=== PATIENT | female | born 1970 | race African-American/Black ===

== ENCOUNTER 2017-05-29 11:38 | Inpatient (IN) | payer OTHER ==
--- OUTSIDE RECORDS SUMMARY | 2017-05-29 11:47 | XMS REPORT ---
:1970 [facility] [address] [place] [address] Care Team Providers Name Role Phone RISHI RANDOLPH Unavailable Unavailable ERNESTO THORPE Unavailable Unavailable ISABEL DELA CRUZ Unavailable Unavailable Problems This patient has no known problems. Allergies, Adverse Reactions, Alerts This patient has no known allergies or adverse reactions. Medications This patient has no known medications. Results Test Description Test Time Test Comments Text Results Atomic Results Result Comments HEMOGLOBIN A1C 2017-02-24 08:30:00 Test Item Value Reference Range Comments HEMOGLOBIN A1C (BEAKER) (test ozem=277) 5.3 % 4.3-6.1 POCT-GLUCOSE [id number] 07:28:00 Test Item Value Reference Range Comments POC-GLUCOSE METER (BEAKER) 78 mg/dL 70-110 TESTED AT [address] (test secn=2920) [place] [id number] POCT-GLUCOSE [id number] 20:51:00 Test Item Value Reference Range Comments POC-GLUCOSE METER (BEAKER) 49 mg/dL 70-110 Will Repeat Test/TESTED AT (test sabo=3539) [place] [id number] POCT-GLUCOSE [id number] 18:20:00 Test Item Value Reference Range Comments POC-GLUCOSE METER (BEAKER) 188 mg/dL 70-110 TESTED AT [address] (test irts=4193) [place] [id number] T4, [id number] 17:50:00 Test Item Value Reference Range Comments FREE T4 (BEAKER) (test qntw=259) 1.31 ng/dL 0.70-1.48 SEDIMENTATION [id number] 17:38:00 Test Item Value Reference Range Comments SEDIMENTATION RATE, ERYTHROCYTE (BEAKER) (test 103 mm/HR 0-20 nzts=039) TSH/FREE T4 IF [id number] 16:25:00 Test Item Value Reference Range Comments THYROID STIMULATING HORMONE (BEAKER) (test 0.30 uIU/mL 0.35-4.94 cgfl=556) CREATINE KINASE (CK), TOTAL AND [id number] 16:08:00 Test Item Value Reference Range Comments CREATINE KINASE TOTAL (BEAKER) (test pyor=780) 111 U/L 29-200 CREATINE KINASE-MB (BEAKER) (test qcaq=680) 4.8 ng/mL 0.0-6.6 CREATINE KINASE-MB INDEX (BEAKER) (test rwut=789) 4.3 % CK-MB Reference Range:<6.7 Normal6.7-10.0 Borderline>10.0 AbnormalTROPONIN [id number] 16:08:00 Test Item Value Reference Range Comments TROPONIN I (BEAKER) (test vnvn=544) 0.10 ng/mL 0.00-0.03 Troponin I (TnI) levels must be interpreted in the context of the presenting symptoms and the clinical findings. Elevated TnI levels indicate myocardial damage, but are not specific for ischemic heart disease. Elevated TnI levels are seen in patients with other cardiac conditions (including myocarditis and congestive heart failure), and slight TnI elevations occur in patients with other conditions, including sepsis, renal failure, acidosis, acute neurological disease, and persistent tachyarrhythmia.CREATINE KINASE (CK), TOTAL AND [id number] 16:07:00 Test Item Value Reference Range Comments CREATINE KINASE TOTAL (BEAKER) (test vqth=257) 100 U/L 29-200 CREATINE KINASE-MB (BEAKER) (test sfuu=328) 3.7 ng/mL 0.0-6.6 CREATINE KINASE-MB INDEX (BEAKER) (test wdeo=496) 3.7 % CK-MB Reference Range:<6.7 Normal6.7-10.0 Borderline>10.0 AbnormalTROPONIN [id number] 16:07:00 Test Item Value Reference Range Comments TROPONIN I (BEAKER) (test uitn=288) 0.10 ng/mL 0.00-0.03 Troponin I (TnI) levels must be interpreted in the context of the presenting symptoms and the clinical findings. Elevated TnI levels indicate myocardial damage, but are not specific for ischemic heart disease. Elevated TnI levels are seen in patients with other cardiac conditions (including myocarditis and congestive heart failure), and slight TnI elevations occur in patients with other conditions, including sepsis, renal failure, acidosis, acute neurological disease, and persistent tachyarrhythmia.[id number] 15:59:00 Test Item Value Reference Range Comments PHOSPHORUS (BEAKER) (test hnur=226) 5.1 mg/dL 2.3-4.7 LIPID [id number] 15:59:00 Test Item Value Reference Range Comments TRIGLYCERIDES (BEAKER) (test kepp=487) 64 mg/dL CHOLESTEROL (BEAKER) (test btmk=321) 112 mg/dL HDL CHOLESTEROL (BEAKER) (test lavw=903) 36 mg/dL LDL CHOLESTEROL CALCULATED (BEAKER) (test 63 mg/dL oflk=592) Triglyceride Reference Range: Low Risk <150 Borderline 150- 199 High Risk 200-499 Very High Risk >=500Cholesterol Reference Range: Low Risk <200 Borderline 200-239 High Risk > 240HDL Cholesterol Reference Range: Low Risk >=60 High Risk <40LDL Cholesterol Reference Range: Optimal <100 Near Optimal 100-129 Borderline 130-159 High 160-189 Very High >=190HEPATIC FUNCTION [id number] 15:59:00 Test Item Value Reference Range Comments TOTAL PROTEIN (BEAKER) (test hubl=310) 6.6 gm/dL 6.0-8.3 ALBUMIN (BEAKER) (test deop=0219) 2.5 g/dL 3.5-5.0 BILIRUBIN TOTAL (BEAKER) (test wrpb=352) 0.4 mg/dL 0.2-1.2 BILIRUBIN DIRECT (BEAKER) (test zdsi=406) 0.1 mg/dL 0.1-0.5 ALKALINE PHOSPHATASE (BEAKER) (test gnrw=487) 82 U/L 40-150 AST (SGOT) (BEAKER) (test xnqc=099) 16 U/L 5-34 ALT (SGPT) (BEAKER) (test bhco=644) 10 U/L 6-55 C-REACTIVE [id number] 15:59:00 Test Item Value Reference Range Comments C-REACTIVE PROTEIN (BEAKER) (test otkn=062) 0.52 mg/dL 0.00-0.50 BASIC METABOLIC [id number] 15:59:00 Test Item Value Reference Range Comments SODIUM (BEAKER) (test 140 meq/L 136-145 zhad=415) POTASSIUM (BEAKER) (test 4.4 meq/L 3.5-5.1 uium=995) CHLORIDE (BEAKER) (test 110 meq/L 98-107 tfii=198) CO2 (BEAKER) (test 21 meq/L 22-29 nfeh=644) BLOOD UREA NITROGEN 54 mg/dL 7-21 (BEAKER) (test wsfv=097) CREATININE (BEAKER) (test 9.62 mg/dL 0.57-1.25 hrhi=658) GLUCOSE RANDOM (BEAKER) 87 mg/dL 70-105 (test fvdy=671) CALCIUM (BEAKER) (test 8.0 mg/dL 8.4-10.2 wijo=483) EGFR (BEAKER) (test 5 mL/min/1.73 sq m ESTIMATED GFR IS NOT jgeh=4216) ACCURATE CREATININE CLEARANCE IN PREDICTING GLOMERULAR FILTRATION RATE. ESTIMATED GFR IS NOT APPLICABLE FOR DIALYSIS PATIENTS. CBC W/PLT COUNT & AUTO [id number] 15:16:00 Test Item Value Reference Range Comments WHITE BLOOD CELL COUNT (BEAKER) (test umzu=636) 4.3 K/ L 3.5-10.5 RED BLOOD CELL COUNT (BEAKER) (test zcie=333) 2.57 M/ L 3.93-5.22 HEMOGLOBIN (BEAKER) (test mdfg=392) 7.3 GM/DL 11.2-15.7 HEMATOCRIT (BEAKER) (test gpnr=361) 23.4 % 34.1-44.9 MEAN CORPUSCULAR VOLUME (BEAKER) (test ndiu=124) 91.1 fL 79.4-94.8 MEAN CORPUSCULAR HEMOGLOBIN (BEAKER) (test 28.4 pg 25.6-32.2 erde=898) MEAN CORPUSCULAR HEMOGLOBIN CONC (BEAKER) (test 31.2 GM/DL 32.2-35.5 escm=163) RED CELL DISTRIBUTION WIDTH (BEAKER) (test 15.1 % 11.7-14.4 kqks=190) PLATELET COUNT (BEAKER) (test mjxx=082) 184 K/CU MM 150-450 MEAN PLATELET VOLUME (BEAKER) (test cqyh=034) 10.8 fL 9.4-12.3 NUCLEATED RED BLOOD CELLS (BEAKER) (test 0 /100 WBC 0-0 sisa=803) NEUTROPHILS RELATIVE PERCENT (BEAKER) (test 58 % pjcc=909) LYMPHOCYTES RELATIVE PERCENT (BEAKER) (test 25 % kfke=766) MONOCYTES RELATIVE PERCENT (BEAKER) (test 13 % sblf=117) EOSINOPHILS RELATIVE PERCENT (BEAKER) (test 4 % zwog=727) BASOPHILS RELATIVE PERCENT (BEAKER) (test 1 % aksa=440) NEUTROPHILS ABSOLUTE COUNT (BEAKER) (test 2.50 K/ L 1.56-6.13 olkd=425) LYMPHOCYTES ABSOLUTE COUNT (BEAKER) (test 1.07 K/ L 1.18-3.74 pfef=475) MONOCYTES ABSOLUTE COUNT (BEAKER) (test 0.55 K/ L 0.24-0.36 fgck=400) EOSINOPHILS ABSOLUTE COUNT (BEAKER) (test 0.17 K/ L 0.04-0.36 tmbj=190) BASOPHILS ABSOLUTE COUNT (BEAKER) (test 0.02 K/ L 0.01-0.08 mehi=014) IMMATURE GRANULOCYTES-RELATIVE PERCENT (BEAKER) 0 % 0-1 (test tjzb=7384) PROTHROMBIN [id number] 15:08:00 Test Item Value Reference Range Comments PROTIME (BEAKER) (test zdkq=861) 16.0 seconds 11.7-14.7 INR (BEAKER) (test srex=115) 1.3 <=5.9 RECOMMENDED COUMADIN/WARFARIN INR THERAPY RANGESSTANDARD DOSE: 2.0 - 3.0 Includes: PROPHYLAXIS forvenous thrombosis, systemic embolization; TREATMENT for venous thrombosis and/or pulmonary embolus.HIGH RISK: Target INR is 2.5-3.5 for patients with mechanical heart valves.POCT-GLUCOSE [id number] 12:04:00 Test Item Value Reference Range Comments POC-GLUCOSE METER (BEAKER) 187 mg/dL 70-[address] [facility] [address] [facility] (test xajk=0351) [facility] [address] POCT-GLUCOSE [id number] 09:11:00 Test Item Value Reference Range Comments POC-GLUCOSE METER (BEAKER) 83 mg/dL 70-[address] [facility] [address] (test yiei=1640) [facility] [address] MR, BRAIN, WITHOUT [id number] 00:47:00PT started dialysis 2015Reason for exam:->Sudden onset headace, dizzinessFINAL REPORT MR, BRAIN, WITHOUT CONTRAST INDICATION: Headache, acute, norm neuro examSudden onset headace, dizziness TECHNIQUE: Multiplanar, multisequence MR imaging of the brainwithout intravenous contrast. COMPARISON: Noncontrast head CT January 06, 2017 FINDINGS: There is norestricted diffusion. No focal abnormal parenchymal signal is present. There is no mass effect orabnormal extra-axial fluid. The ventricles demonstrate mild enlargement without evidence of transependymal flow. Incidental note of cavum of the septum pellucidum et vergae. There is no tonsillar herniation. Incidental note of partially empty sella. The larger intracranial vascular flow-voids are preserved. No loss of flow void is identified in the major dural sinuses. Mild mucosal thickening is present in the right maxillary sinus. There is normal bone marrow signal intensity within the calvariumand skull base. Although suboptimal, no obvious optic nerve edema is present. Susceptibility artifact is present in the right globe, suggesting prior vitreal hemorrhage. IMPRESSION: No infarct or parenchymal hemorrhage. 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 Intrahepatic intracranial hypertension is not excluded. Mild paranasal sinus disease. Signed : JR Astorga Robert MDReport Verified Date/Time: 02/23/2017 00:47:16 Reading Location: [facility] C013Y CT Body Reading Room AFB CULTURE + [id number] 07: 45:00 Test Item Value Reference Range Comments CULTURE (BEAKER) (test No acid-fast bacilli isolated pkcj=8976) in 42 days AFB SMEAR (BEAKER) (test No acid fast bacilli seen dwlz=210) AFB CULTURE + [id number] 07:45:00 Test Item Value Reference Range Comments CULTURE (BEAKER) (test No acid-fast bacilli isolated geyg=6751) in 42 days AFB SMEAR (BEAKER) (test No acid fast bacilli seen desk=445) FUNGUS CULTURE + [id number] 18:17:00 Test Item Value Reference Range Comments CULTURE (BEAKER) (test No fungus isolated in 28 days mksn=1201) FUNGUS SMEAR (BEAKER) (test No fungi seen ribh=3988) FUNGUS CULTURE + [id number] 18:17:00 Test Item Value Reference Range Comments CULTURE (BEAKER) (test No fungus isolated in 28 days dqaw=6204) FUNGUS SMEAR (BEAKER) (test No fungi seen rrfm=8854) AFB CULTURE + [id number] 14:52:00 Test Item Value Reference Range Comments CULTURE (BEAKER) (test No acid-fast bacilli isolated czfq=2800) in 42 days AFB SMEAR (BEAKER) (test No acid fast bacilli seen kfcm=932) AB SPECIFICITY CLASS [id number] 10:13:00 Test Item Value Reference Range Comments DATE OF SERUM (BEAKER) (test soob=4815) [id number] SERUM # (BEAKER) (test jucc=7755) [id number] AB SPECIFICITY CLASS I (BEAKER) (test rhzm=1989) AB SPECIFICITY CLASS [id number] 10:13:00 Test Item Value Reference Range Comments DATE OF SERUM (BEAKER) (test ykuk=1316) [id number] SERUM # (BEAKER) (test xsdm=2321) 126992 AB SPECIFICITY CLASS II (BEAKER) (test See Scanned Report warc=5688) HERPES VIRUS ANTIBODY, [id number] 14:21:00 Test Item Value Reference Range Comments HERPES VIRUS IGM (BEAKER) (test Negative HSV 1 IGM=NEGHSV 2 IGM=NEG ccku=7512) TOXOPLASMA GONDII ANTIBODY, [id number] 14:21:00 Test Item Value Reference Range Comments TOXOPLASMA IGM ANTIBODY (BEAKER) (test opqk=081) Negative FLOW PRA CLASS I AND [id number] 15:15:00 Test Item Value Reference Range Comments DATE OF SERUM (BEAKER) (test file=9926) [id number] SERUM # (BEAKER) (test naen=8220) [id number] FLOW PRA CLASS I AND II (test vhrf=7635) See Scanned Report VARICELLA ZOSTER ANTIBODY, [id number] 14:59:00 Test Item Value Reference Range Comments VARICELLA ZOSTER IGG (AL) (MARYANNE) (test wcad=2040) 5.8 Al VARICELLA ZOSTER RESULT INTERPRETATIONS: <=0.8 Al Nonreactive: Presumed non-immune to VZV 0.9-1.0 Al Equivocal >=1.1 Al Reactive: Presumed immune to VZVCT, [id number] 14:16:00PT started dialysis 07/12/2015Addendum BeginsREPORT STATUS:A The original report incorrectly states that the procedure was performed with intravenous contrast. In fact, the procedure was performed without intravenous contrast. Signed: Gigi Diaz MDReport Verified Date/Time: 01/13/2017 14: 16:42 ReadingLocation: [facility] C013X Ortho Consult Reading RoomAddendum EndsFINAL REPORT INDICATION:46-year-old female preheart transplant evaluation. COMPARISON: None. TECHNIQUE: CT of the Chest, Abdomen and Pelvis WITH intravenous contrast. Enteric contrast was not used. The exam was performed according to our department dose-optimization protocol, which includes automated exposure control, adjustments of mA and kV according to patient size. Iterative reconstructions are also sometimes employed. FINDINGS: THORAX: There are bilateral moderate pleural effusions. There is no pulmonary edema. No pneumonia or suspicious lung nodule or mass is demonstrated. Central airways are clear. No mediastinal, hilar, axillary, or supraclavicular lymphadenopathy is demonstrated. Esophagus is unremarkable. Thyroid gland is mildly enlarged. There is mild cardiomegaly. Coronary artery calcification is noted. No pericardial effusion. There is a large caliber right internal jugular line that terminates atthe cavoatrial junction. ABDOMEN and PELVIS: Liver and spleen are unremarkable. In the head of the pancreas there are a few punctate calcifications which are suspicious for chronic pancreatitis. No pancreatic mass , atrophy, or ductal dilatation is demonstrated. Patient is status post cholecystectomy. No biliary ductal dilatation demonstrated. No upper abdominal lymphadenopathy. No gross renal mass isdemonstrated. No hydronephrosis. Diffuse mild bladder wall thickening is noted and may be related tonondistention. Patient is status post hysterectomy. No pelvic or retroperitoneal lymphadenopathy is demonstrated. There is scattered moderate calcified atherosclerotic plaque of the abdominal aorta andiliac arteries. IVC and iliac veins are unremarkable. No bowel obstruction or bowel mass is demonstrated. There is diffuse mild ascites. BONES and SOFT TISSUES: No suspicious osseous lesion is demonstrated. No significant osseous degenerative changes. Soft tissues are notable for laparotomy wound withapparent packing material in open portion of the wound. IMPRESSION: No evidence of malignancy in thechest, abdomen , or pelvis. Mild cardiomegaly and coronary artery calcification. Bilateral moderate pleural effusions. A few punctate calcifications in the head of the pancreas, suspicious for chronic pancreatitis. Prior cholecystectomy and hysterectomy. Moderate atherosclerosis of the abdominal aorta and iliac arteries. Upper laparotomy wound with apparent packing material in open part of wound. Signed: Gigi Diaz MDReport Verified Date/Time: 01/06/2017 23:49: 19 Reading Location: [facility] [id number] Reading Room CT, CHEST, WITHOUT [id number] 14:16:00PT started dialysis 07/12/2015Addendum BeginsREPORT STATUS:A The original report incorrectly states that the procedure was performed with intravenous contrast. In fact, the procedure was performed without intravenous contrast. Signed: Gigi Diaz MDReport Verified Date/Time: 01/13/2017 14:16:42 ReadingLocation: [facility] C013X Ortho Consult Reading RoomAddendum EndsFINAL REPORT INDICATION: 46-year-old female preheart transplant evaluation. COMPARISON: None. TECHNIQUE: CT of the Chest, Abdomen and Pelvis WITH intravenous contrast. Enteric contrast was not used. The exam was performed according to our department dose- optimization protocol, which includes automated exposure control, adjustments of mA and kV according to patient size. Iterative reconstructions are also sometimes employed. FINDINGS: THORAX: There are bilateral moderate pleural effusions. There is no pulmonary edema. No pneumonia or suspicious lung nodule or mass is demonstrated. Central airways are clear. No mediastinal, hilar, axillary, or supraclavicular lymphadenopathy is demonstrated. Esophagus is unremarkable. Thyroid gland is mildly enlarged. There is mild cardiomegaly. Coronary artery calcification is noted. No pericardial effusion. There is a large caliber right internal jugular line that terminates atthe cavoatrial junction. ABDOMEN and PELVIS: Liver and spleen are unremarkable. In the head of the pancreas there are a few punctate calcifications which are suspicious for chronic pancreatitis. No pancreatic mass, atrophy, or ductal dilatation is demonstrated. Patient is status post cholecystectomy. No biliary ductal dilatation demonstrated. No upper abdominal lymphadenopathy. No gross renal mass isdemonstrated. No hydronephrosis. Diffuse mild bladder wall thickening is noted and may be related tonondistention. Patient is status post hysterectomy. No pelvic or retroperitoneal lymphadenopathy is demonstrated. There is scattered moderate calcified atherosclerotic plaque of the abdominal aorta andiliac arteries. IVC and iliac veins are unremarkable. No bowel obstruction or bowel mass is demonstrated. There is diffuse mild ascites. BONES and SOFT TISSUES: No suspicious osseous lesion is demonstrated. No significant osseous degenerative changes. Soft tissues are notable for laparotomy wound withapparent packing material in open portion of the wound. IMPRESSION: No evidence of malignancy in thechest, abdomen, or pelvis. Mild cardiomegaly and coronary artery calcification. Bilateral moderate pleural effusions. A few punctate calcifications in the head of the pancreas, suspicious for chronic pancreatitis. Prior cholecystectomy and hysterectomy. Moderate atherosclerosis of the abdominal aorta and iliac arteries. Upper laparotomy wound with apparent packing material in open part of wound. Signed: Gigi Diaz MDReport Verified Date/Time: 01/06/2017 23:49:19 Reading Location: [facility] [id number] Reading Room Electronically signed by: GIGI DIAZ M.D. on 2016 02:16 [facility] METABOLIC [id number] 14:06:00 Test Item Value Reference Range Comments SODIUM (BEAKER) (test 135 meq/L 136-145 zdgd=175) POTASSIUM (BEAKER) (test 4.1 meq/L 3.5-5.1 nglk=773) CHLORIDE (BEAKER) (test 102 meq/L 98-107 puqy=215) CO2 (BEAKER) (test 24 meq/L 22-29 erao=446) BLOOD UREA NITROGEN 24 mg/dL 7-21 (BEAKER) (test dfqz=293) CREATININE (BEAKER) (test 8.29 mg/dL 0.57-1.25 bcom=756) GLUCOSE RANDOM (BEAKER) 84 mg/dL 70-105 (test unze=839) CALCIUM (BEAKER) (test 8.8 mg/dL 8.4-10.2 xcaj=264) EGFR (BEAKER) (test 6 mL/min/1.73 sq m ESTIMATED GFR IS NOT hbnx=5162) ACCURATE CREATININE CLEARANCE IN PREDICTING GLOMERULAR FILTRATION RATE. ESTIMATED GFR IS NOT APPLICABLE FOR DIALYSIS PATIENTS. [id number] 14:04:00 Test Item Value Reference Range Comments MAGNESIUM (BEAKER) (test zqqg=119) 1.7 mg/dL 1.6-2.6 PROTHROMBIN [id number] 13:52:00 Test Item Value Reference Range Comments PROTIME (BEAKER) (test rdqx=704) 16.5 seconds 11.7-14.7 INR (BEAKER) (test iwjm=237) 1.3 <=5.9 RECOMMENDED COUMADIN/WARFARIN INR THERAPY RANGESSTANDARD DOSE: 2.0 - 3.0 Includes: PROPHYLAXIS forvenous thrombosis, systemic embolization; TREATMENT for venous thrombosis and/or pulmonary embolus.HIGH RISK: Target INR is 2.5-3.5 for patients with mechanical heart valves.While on warfarin.CBC (HEMOGRAM ONLY) 2017-01-13 13:43:00 Test Item Value Reference Range Comments WHITE BLOOD CELL COUNT (BEAKER) (test wqlu=186) 3.9 K/ L 3.5-10.5 RED BLOOD CELL COUNT (BEAKER) (test ayjl=870) 2.61 M/ L 3.93-5.22 HEMOGLOBIN (BEAKER) (test irzj=258) 7.5 GM/DL 11.2-15.7 HEMATOCRIT (BEAKER) (test mcgq=686) 23.8 % 34.1-44.9 MEAN CORPUSCULAR VOLUME (BEAKER) (test cawg=308) 91.2 fL 79.4-94.8 MEAN CORPUSCULAR HEMOGLOBIN (BEAKER) (test 28.7 pg 25.6-32.2 tdsb=726) MEAN CORPUSCULAR HEMOGLOBIN CONC (BEAKER) (test 31.5 GM/DL 32.2-35.5 owpv=187) RED CELL DISTRIBUTION WIDTH (BEAKER) (test 14.2 % 11.7-14.4 ynel=451) PLATELET COUNT (BEAKER) (test swkq=275) 187 K/CU MM 150-450 MEAN PLATELET VOLUME (BEAKER) (test ewgm=094) 11.2 fL 9.4-12.3 NUCLEATED RED BLOOD CELLS (BEAKER) (test 0 /100 WBC 0-0 pzwk=494) POCT-GLUCOSE [id number] 07:33:00 Test Item Value Reference Range Comments POC-GLUCOSE METER (BEAKER) 82 mg/dL 70-110 TESTED AT [address] (test pgzi=8832) [place] [address] POCT-GLUCOSE [id number] 22:10:00 Test Item Value Reference Range Comments POC-GLUCOSE METER (BEAKER) 118 mg/dL 70-110 TESTED AT [address] (test aghp=3887) [place] [address] POCT-GLUCOSE [id number] 16:58:00 Test Item Value Reference Range Comments POC-GLUCOSE METER (BEAKER) 102 mg/dL 70-110 TESTED AT [address] (test uzcd=7538) [place] [address] POCT-GLUCOSE [id number] 07:43:00 Test Item Value Reference Range Comments POC-GLUCOSE METER (BEAKER) 93 mg/dL 70-110 TESTED AT [address] (test javk=9052) [place] [address] POCT-GLUCOSE [id number] 21:58:00 Test Item Value Reference Range Comments POC-GLUCOSE METER (BEAKER) 130 mg/dL 70-110 TESTED AT [address] (test hffs=8953) [place] [id number] POCT-GLUCOSE [id number] 17:59:00 Test Item Value Reference Range Comments POC-GLUCOSE METER (BEAKER) 144 mg/dL 70-110 TESTED AT [address] (test jjlz=2148) [place] [address] CYTOMEGALOVIRUS ANTIBODY, [id number] 15:45:00 Test Item Value Reference Range Comments CYTOMEGALOVIRUS IGG ANTIBODY (BEAKER) (test Negative cdsf=364) CYTOMEGALOVIRUS ANTIBODY, [id number] 15:45:00 Test Item Value Reference Range Comments CYTOMEGALOVIRUS IGM ANTIBODY (BEAKER) (test Negative qnmi=641) HERPES VIRUS ANTIBODY, [id number] 15:45:00 Test Item Value Reference Range Comments HERPES VIRUS IGG (BEAKER) (test Positive HSV 1 IGG=POSHSV 2 IGG=POS zjou=2454) EBV-VCA ANTIBODY, [id number] 15:45:00 Test Item Value Reference Range Comments GIO-NICK VCA IGG (BEAKER) (test hxxk=724) Positive EBV-VCA ANTIBODY, [id number] 15:45:00 Test Item Value Reference Range Comments GIO-NICK VCA IGM (BEAKER) (test wdbh=833) Negative TOXOPLASMA GONDII ANTIBODY, [id number] 15:45:00 Test Item Value Reference Range Comments TOXOPLASMA GONDII IGG (BEAKER) (test nbzq=027) Negative POCT-GLUCOSE [id number] 14:27:00 Test Item Value Reference Range Comments POC-GLUCOSE METER (BEAKER) 108 mg/dL 70-[address] [facility] [address] [facility] (test tucv=5874) [facility] [address] IMMUNOFIXATION ELECTROPHORESIS (YOANNA)2017-01-11 13:52:00 Test Item Value Reference Range Comments IMMUNOGLOBULIN G (IGG) (BEAKER) 2035 mg/dL 540-1822 (test kiei=713) IMMUNOGLOBULIN A (IGA) (BEAKER) 148 mg/dL 63-484 (test tyfj=254) IMMUNOGLOBULIN M (IGM) (BEAKER) 125 mg/dL 22-293 (test ynpr=451) SERUM YOANNA ID (BEAKER) (test Polyclonal distribution of awui=6804) immunoglobulins; no monoclonal proteins detected. Small band seen on SPEP, therefore, is likely due to presence of fibrinogen in the sample. [id number] (BEAKER) Pat Pinzon MD (test rghp=5602) (electronic signature) Do not collect, specimen already in lab.BASIC METABOLIC [id number] 09:44:00 Test Item Value Reference Range Comments SODIUM (BEAKER) (test 137 meq/L 136-145 pmmy=881) POTASSIUM (BEAKER) (test 3.9 meq/L 3.5-5.1 jkla=970) CHLORIDE (BEAKER) (test 101 meq/L 98-107 dwuh=206) CO2 (BEAKER) (test 30 meq/L 22-29 bomt=224) BLOOD UREA NITROGEN 20 mg/dL 7-21 (BEAKER) (test nfoy=783) CREATININE (BEAKER) (test 7.35 mg/dL 0.57-1.25 udzs=676) GLUCOSE RANDOM (BEAKER) 85 mg/dL 70-105 (test mmay=675) CALCIUM (BEAKER) (test 8.5 mg/dL 8.4-10.2 orvg=106) EGFR (BEAKER) (test 7 mL/min/1.73 sq m ESTIMATED GFR IS NOT ngyt=[id number]) ACCURATE CREATININE CLEARANCE IN PREDICTING GLOMERULAR FILTRATION RATE. ESTIMATED GFR IS NOT APPLICABLE FOR DIALYSIS PATIENTS. [id number] 09:20:00 Test Item Value Reference Range Comments MAGNESIUM (BEAKER) (test cqec=764) 1.8 mg/dL 1.6-2.6 POCT-GLUCOSE [id number] 09:18:00 Test Item Value Reference Range Comments POC-GLUCOSE METER (BEAKER) 100 mg/dL 70-110 TESTED AT [address] (test qqla=5830) [place] [id number] PROTHROMBIN [id number] 08:51:00 Test Item Value Reference Range Comments PROTIME (BEAKER) (test arbh=109) 15.1 seconds 11.7-14.7 INR (BEAKER) (test adha=582) 1.2 <=5.9 RECOMMENDED COUMADIN/WARFARIN INR THERAPY RANGESSTANDARD DOSE: 2.0 - 3.0 Includes: PROPHYLAXIS forvenous thrombosis, systemic embolization; TREATMENT for venous thrombosis and/or pulmonary embolus.HIGH RISK: Target INR is 2.5-3.5 for patients with mechanical heart valves.While on warfarin.HGB/HCT (H&H) - STAT [id number] 08:44:00 Test Item Value Reference Range Comments HEMOGLOBIN (BEAKER) (test wlyf=921) 8.0 g/dL 12.0-15.0 HEMATOCRIT (BEAKER) (test qnje=355) 24.0 % 36.0-45.0 POCT-GLUCOSE [id number] 23:05:00 Test Item Value Reference Range Comments POC-GLUCOSE METER (BEAKER) 108 mg/dL 70-110 TESTED AT [address] (test kdtc=7728) [facility] [address] POCT-GLUCOSE [id number] 17:36:00 Test Item Value Reference Range Comments POC-GLUCOSE METER (BEAKER) 133 mg/dL 70-110 TESTED AT [address] (test wqcs=5912) [facility] [address] POCT-GLUCOSE [id number] 12:31:00 Test Item Value Reference Range Comments POC-GLUCOSE METER (BEAKER) 115 mg/dL 70-110 TESTED AT [address] (test oiqo=0239) [place] [id number] FUNGUS CULTURE + [id number] 12:30:00 Test Item Value Reference Range Comments CULTURE (BEAKER) (test No fungus isolated in 28 days wybk=6784) FUNGUS SMEAR (BEAKER) (test No fungi seen zlxu=5461) POCT-GLUCOSE [id number] 08:30:00 Test Item Value Reference Range Comments POC-GLUCOSE METER (BEAKER) 99 mg/dL 70-110 TESTED AT [address] (test czxh=0634) [place] [address] POCT-GLUCOSE [id number] 00:16:00 Test Item Value Reference Range Comments POC-GLUCOSE METER (BEAKER) 106 mg/dL 70-110 TESTED AT [address] (test sdkv=0128) [place] [address] POCT-GLUCOSE [id number] 22:21:00 Test Item Value Reference Range Comments POC-GLUCOSE METER (BEAKER) 88 mg/dL 70-110 TESTED AT [address] (test ffsj=8525) [place] [id number] POCT-GLUCOSE [id number] 14:36:00 Test Item Value Reference Range Comments POC-GLUCOSE METER (BEAKER) 119 mg/dL 70-110 TESTED AT [address] (test weig=1321) [place] [address] PROTEIN ELECTROPHORESIS, [id number] 13:56:00 Test Item Value Reference Range Comments ALBUMIN FRACTION (BEAKER) 2.0 g/dL 3.5-5.5 (test skdy=687) ALPHA 1 FRACTION (BEAKER) 0.3 g/dL 0.2-0.4 (test hokm=382) ALPHA 2 FRACTION (BEAKER) 0.6 g/dL 0.5-0.9 (test ziim=851) BETA FRACTION (BEAKER) 0.9 g/dL 0.6-1.1 (test akiq=283) GAMMA GLOBULIN FRACTION 1.9 g/dL 0.7-1.7 (BEAKER) (test utto=277) INTERPRETATION-119 (BEAKER) There is a peak in the gamma (test prpt=2378) region that may indicate a monoclonal gammopathy. Refer to serum immunofixation electrophoresis. [id number] Anne Yen MD (electronic (BEAKER) (test alib=3134) signature) PROTEIN TOTAL SERUM, SPEP 5.7 gm/dL 6.0-8.3 (BEAKER) (test hxwj=7698) Do not collect, specimen already in lab.POTASSIUM-STAT [id number] 10:33:00 Test Item Value Reference Range Comments POTASSIUM (BEAKER) (test xwac=595) 4.9 meq/L 3.6-5.5 GLUCOSE-STAT [id number] 10:33:00 Test Item Value Reference Range Comments GLUCOSE RANDOM (BEAKER) (test ltqo=133) 129 mg/dL 70-110 HGB/HCT (H&H) - STAT [id number] 10:33:00 Test Item Value Reference Range Comments HEMOGLOBIN (BEAKER) (test yoyi=976) 12.3 g/dL 12.0-15.0 HEMATOCRIT (BEAKER) (test dmal=234) 36.0 % 36.0-45.0 HGB/HCT (H&H) - STAT [id number] 07:59:00 Test Item Value Reference Range Comments HEMOGLOBIN (BEAKER) (test gelt=478) 8.5 g/dL 12.0-15.0 HEMATOCRIT (BEAKER) (test ivqo=408) 25.0 % 36.0-45.0 BASIC METABOLIC [id number] 07:16:00 Test Item Value Reference Range Comments SODIUM (BEAKER) (test 134 meq/L 136-145 pmqs=828) POTASSIUM (BEAKER) (test 4.5 meq/L 3.5-5.1 cykm=535) CHLORIDE (BEAKER) (test 101 meq/L 98-107 nivq=080) CO2 (BEAKER) (test 24 meq/L 22-29 bmma=304) BLOOD UREA NITROGEN 24 mg/dL 7-21 (BEAKER) (test lvtk=709) CREATININE (BEAKER) (test 7.96 mg/dL 0.57-1.25 cors=712) GLUCOSE RANDOM (BEAKER) 88 mg/dL 70-105 (test cefe=629) CALCIUM (BEAKER) (test 8.5 mg/dL 8.4-10.2 fvzi=497) EGFR (BEAKER) (test 7 mL/min/1.73 sq m ESTIMATED GFR IS NOT pggd=9477) ACCURATE CREATININE CLEARANCE IN PREDICTING GLOMERULAR FILTRATION RATE. ESTIMATED GFR IS NOT APPLICABLE FOR DIALYSIS PATIENTS. [id number] 07:10:00 Test Item Value Reference Range Comments MAGNESIUM (BEAKER) (test irrw=195) 2.0 mg/dL 1.6-2.6 POCT-GLUCOSE [id number] 06:47:00 Test Item Value Reference Range Comments POC-GLUCOSE METER (BEAKER) 113 mg/dL 70-110 TESTED AT [address] (test hxan=2115) [place] [address] [id number] 02:25:00 Test Item Value Reference Range Comments PARTIAL THROMBOPLASTIN TIME (BEAKER) (test 67.7 seconds 22.5-36.0 jhbv=009) POCT-GLUCOSE [id number] 18:18:00 Test Item Value Reference Range Comments POC-GLUCOSE METER (BEAKER) 138 mg/dL 70-110 TESTED AT [address] (test pkvg=8814) [place] [id number] [id number] 17:24:00 Test Item Value Reference Range Comments PROTIME (BEAKER) (test qdbs=398) 15.2 seconds 11.7-14.7 INR (BEAKER) (test eljf=370) 1.2 <=5.9 PARTIAL THROMBOPLASTIN TIME (BEAKER) (test 37.0 seconds 22.5-36.0 etto=852) RECOMMENDED COUMADIN/WARFARIN INR THERAPY RANGESSTANDARD DOSE: 2.0 - 3.0 Includes: PROPHYLAXIS forvenous thrombosis, systemic embolization; TREATMENT for venous thrombosis and/or pulmonary embolus.HIGH RISK: Target INR is 2.5-3.5 for patients with mechanical heart valves.ANAEROBIC [id number] 14:23:00 Test Item Value Reference Range Comments CULTURE (BEAKER) (test ddpi=5324) No anaerobes isolated ANAEROBIC [id number] 14:23:00 Test Item Value Reference Range Comments CULTURE (BEAKER) (test btdc=1478) No anaerobes isolated POCT-GLUCOSE [id number] 12:45:00 Test Item Value Reference Range Comments POC-GLUCOSE METER (BEAKER) 126 mg/dL 70-[address] [facility] [address] (test ofzo=0732) [facility] [address] SURGICALLY OBTAINED CULTURE + GRAM [id number] 11:41:00 Test Item Value Reference Range Comments CULTURE (BEAKER) (test From Broth Only Same organism cwpa=5641) has been isolated from cultures(s) of the same body site and collection date. Repeat identification and susceptibility testing performed only after consultation with the clinical microbiology laboratory.Refer to previous culture ofCoagulase negative Staphylococcus GRAM STAIN RESULT <1+ WBCs (BEAKER) (test ssql=6275) GRAM STAIN RESULT No organisms seen (BEAKER) (test iqki=442972) SURGICALLY OBTAINED CULTURE + GRAM [id number] 11:38:00 Test Item Value Reference Range Comments CULTURE (BEAKER) (test mbix=9700) Clindamycin (test code=10) Erythromycin (test code=4) Levofloxacin (test code=22) Linezolid (test code=40) Nitrofurantoin (test code=23) Oxacillin (test code=14) Rifampin (test code=43) Tetracycline (test code=2) Trimethoprim + Sulfamethoxazole (test code=47) Vancomycin (test code=13) CULTURE (BEAKER) (test 2+ Coagulase negative icvq=1936) Staphylococcus CULTURE (BEAKER) (test 4+ Diphtheroid ijab=3354) GRAM STAIN RESULT (BEAKER) <1+ WBCs (test ylox=7733) GRAM STAIN RESULT (BEAKER) No organisms seen (test hhyk=072880) [id number] 10:08:00 Test Item Value Reference Range Comments PROTIME (BEAKER) (test yczl=365) 14.7 seconds 11.7-14.7 INR (BEAKER) (test mmhm=939) 1.2 <=5.9 PARTIAL THROMBOPLASTIN TIME (BEAKER) (test 40.2 seconds 22.5-36.0 wwfm=094) RECOMMENDED COUMADIN/WARFARIN INR THERAPY RANGESSTANDARD DOSE: 2.0 - 3.0 Includes: PROPHYLAXIS forvenous thrombosis, systemic embolization; TREATMENT for venous thrombosis and/or pulmonary embolus.HIGH RISK: Target INR is 2.5-3.5 for patients with mechanical heart valves.POCT-GLUCOSE [id number] 08:24:00 Test Item Value Reference Range Comments POC-GLUCOSE METER (BEAKER) 97 mg/dL 70-110 TESTED AT [address] (test hift=6900) [place] [address] [id number] 07:39:00 Test Item Value Reference Range Comments PARTIAL THROMBOPLASTIN TIME (BEAKER) (test 192.0 seconds 22.5-36.0 szuw=699) [id number] 07:37:00 Test Item Value Reference Range Comments MAGNESIUM (BEAKER) (test xoci=461) 1.7 mg/dL 1.6-2.6 BASIC METABOLIC [id number] 07:37:00 Test Item Value Reference Range Comments SODIUM (BEAKER) (test 136 meq/L 136-145 pcme=687) POTASSIUM (BEAKER) (test 4.2 meq/L 3.5-5.1 twpn=823) CHLORIDE (BEAKER) (test 100 meq/L 98-107 crgl=837) CO2 (BEAKER) (test 31 meq/L 22-29 dkji=747) BLOOD UREA NITROGEN 15 mg/dL 7-21 (BEAKER) (test cehr=555) CREATININE (BEAKER) (test 5.65 mg/dL 0.57-1.25 qlzj=701) GLUCOSE RANDOM (BEAKER) 121 mg/dL 70-105 (test bewr=122) CALCIUM (BEAKER) (test 8.4 mg/dL 8.4-10.2 vrej=579) EGFR (BEAKER) (test 10 mL/min/1.73 sq m ESTIMATED GFR IS NOT ojld=1325) ACCURATE CREATININE CLEARANCE IN PREDICTING GLOMERULAR FILTRATION RATE. ESTIMATED GFR IS NOT APPLICABLE FOR DIALYSIS PATIENTS. [id number] 23:25:00 Test Item Value Reference Range Comments PARTIAL THROMBOPLASTIN TIME (BEAKER) (test 97.8 seconds 22.5-36.0 fjxs=850) POCT-GLUCOSE [id number] 22:52:00 Test Item Value Reference Range Comments POC-GLUCOSE METER (BEAKER) 98 mg/dL 70-110 TESTED AT [address] (test jskk=0428) [place] [address] POCT-GLUCOSE [id number] 17:43:00 Test Item Value Reference Range Comments POC-GLUCOSE METER (BEAKER) 86 mg/dL 70-110 TESTED AT [address] (test qvng=8863) [place] [address] [id number] 15:59:00 Test Item Value Reference Range Comments PARTIAL THROMBOPLASTIN TIME (BEAKER) (test 62.8 seconds 22.5-36.0 adre=871) POCT-GLUCOSE [id number] 14:50:00 Test Item Value Reference Range Comments POC-GLUCOSE METER (BEAKER) 115 mg/dL 70-110 TESTED AT [address] (test wvgz=2673) [place] [address] [id number] 14:00:00 Test Item Value Reference Range Comments PARTIAL THROMBOPLASTIN TIME (BEAKER) (test 113.6 seconds 22.5-36.0 zmev=797) VANCOMYCIN LEVEL, [id number] 13:10:00 Test Item Value Reference Range Comments VANCOMYCIN RANDOM (BEAKER) (test hobu=332) 33.9 ug/mL Reference Range: No NormalsTROPONIN [id number] 12:52:00 Test Item Value Reference Range Comments TROPONIN I (BEAKER) (test xops=669) 0.09 ng/mL 0.00-0.03 Troponin I (TnI) levels must be interpreted in the context of the presenting symptoms and the clinical findings. Elevated TnI levels indicate myocardial damage, but are not specific for ischemic heart disease. Elevated TnI levels are seen in patients with other cardiac conditions (including myocarditis and congestive heart failure), and slight TnI elevations occur in patients with other conditions, including sepsis, renal failure, acidosis, acute neurological disease, and persistent tachyarrhythmia.POCT-GLUCOSE [id number] 12:19:00 Test Item Value Reference Range Comments POC-GLUCOSE METER (BEAKER) 87 mg/dL 70-110 TESTED AT [address] (test powt=9350) [place] [address] POCT-GLUCOSE [id number] 08:36:00 Test Item Value Reference Range Comments POC-GLUCOSE METER (BEAKER) 62 mg/dL 70-110 Notified MILA IGLESIAS/TESTED AT [facility] (test ljkb=6377) [address] [place] [address] ANTI-NUCLEAR ANTIBODY (MILTON)2017-01-07 06:33:00 Test Item Value Reference Range Comments ANTI-NUCLEAR ANTIBODY (MILTON) (BEAKER) (test Positive Negative ygtq=314) MILTON TITER AND [id number] 06:33:00 Test Item Value Reference Range Comments MILTON TITER (BEAKER) (test bgvb=1516) :640 [place]TON PATTERN (BEAKER) (test pjwa=4294) SSA/RO TROPONIN [id number] 03:35:00 Test Item Value Reference Range Comments TROPONIN I (BEAKER) (test hjdy=399) 0.10 ng/mL 0.00-0.03 Troponin I (TnI) levels must be interpreted in the context of the presenting symptoms and the clinical findings. Elevated TnI levels indicate myocardial damage, but are not specific for ischemic heart disease. Elevated TnI levels are seen in patients with other cardiac conditions (including myocarditis and congestive heart failure), and slight TnI elevations occur in patients with other conditions, including sepsis, renal failure, acidosis, acute neurological disease, and persistent tachyarrhythmia.BASIC METABOLIC [id number] 03:28:00 Test Item Value Reference Range Comments SODIUM (BEAKER) (test 137 meq/L 136-145 qtqt=514) POTASSIUM (BEAKER) (test 4.5 meq/L 3.5-5.1 xlxh=573) CHLORIDE (BEAKER) (test 103 meq/L 98-107 wlsz=050) CO2 (BEAKER) (test 27 meq/L 22-29 zuhx=739) BLOOD UREA NITROGEN 22 mg/dL 7-21 (BEAKER) (test hxgg=508) CREATININE (BEAKER) (test 7.44 mg/dL 0.57-1.25 itvm=895) GLUCOSE RANDOM (BEAKER) 73 mg/dL 70-105 (test igpv=536) CALCIUM (BEAKER) (test 8.2 mg/dL 8.4-10.2 rqoz=468) EGFR (BEAKER) (test 7 mL/min/1.73 sq m ESTIMATED GFR IS NOT rywd=3545) ACCURATE CREATININE CLEARANCE IN PREDICTING GLOMERULAR FILTRATION RATE. ESTIMATED GFR IS NOT APPLICABLE FOR DIALYSIS PATIENTS. [id number] 03:27:00 Test Item Value Reference Range Comments MAGNESIUM (BEAKER) (test grsb=515) 1.9 mg/dL 1.6-2.6 [id number] 03:24:00 Test Item Value Reference Range Comments PARTIAL THROMBOPLASTIN TIME (BEAKER) (test 111.9 seconds 22.5-36.0 muej=661) [id number] 00:18:00 Test Item Value Reference Range Comments RPR SCREEN (BEAKER) (test fgqy=614) Nonreactive Nonreactive BLOOD [id number] 00:00:00 Test Item Value Reference Range Comments CULTURE (BEAKER) (test rlbu=8373) No growth in 5 days BLOOD [id number] 00:00:00 Test Item Value Reference Range Comments CULTURE (BEAKER) (test ihox=3770) No growth in [address], BRAIN, WITHOUT [id number] 23:31:00PT started dialysis 2015FINAL REPORT Clinical history : Heart transplant evaluationComparison study:CT scan of the brain 06/06/2016 Technique: Contiguous axial images were obtained of the brain withoutintravenous contrast. This exam was performed according to our departmental dose optimization program, which includes automated exposure control, adjustment of the mA and/or kV according to the patient's size and/or use of the iterative reconstruction technique. FINDINGS: Mild periventricular microvascular white matter changes. No hydrocephalus, mass, midline shift, cisternal effacement, intraparenchymal hemorrhage, or extra axial fluid collection. No acute infarction is identified. Atherosclerotic calcifications of the intracranial circulation. The visualized paranasal sinuses and tympanomastoid cavities are well pneumatized. Stable hyperdensities within the asymmetrically small right globe. Normal skull base and calvarium. Impression: No acute abnormalities. Signed: Erlin Nuno MDReportVerified Date/Time: 01/06/2017 23:31:20 Reading Location: [address] Ortho Consult Reading Room Electronically signed by: ERLIN NUNO M.D. on 11:31 PMPOCT-GLUCOSE [id number] 22:02:00 Test Item Value Reference Range Comments POC-GLUCOSE METER (BEAKER) 99 mg/dL 70-[address] [facility] [address] [facility] (test izot=2280) [facility] [address] [id number] 18:44:00 Test Item Value Reference Range Comments PARTIAL THROMBOPLASTIN TIME (BEAKER) (test 94.9 seconds 22.5-36.0 zaqt=706) HEPATITIS A ANTIBODY, [id number] 18:03:00 Test Item Value Reference Range Comments HEPATITIS A IGG ANTIBODY (BEAKER) (test iqpi=1812) Reactive Nonreactive HIV-1 ANTIGEN WITH HIV-1/2 [id number] 17:58:00 Test Item Value Reference Range Comments HIV-1 ANTIGEN WITH HIV 1\\T\\2 ANTIBODY (2) Nonreactive Nonreactive (BEAKER) (test njvr=2007) POCT-GLUCOSE [id number] 17:55:00 Test Item Value Reference Range Comments POC-GLUCOSE METER (BEAKER) 89 mg/dL 70-[address] [facility] [address] [place] [address] (test juvh=6192) [facility] [address] ANG, TUNNELED DIALYSIS CATH [id number] 17:45:00PT started dialysis 03/2015Reason for exam:->needs extermination inspector HD access, please d/c bradley after PC in placeIs the patient ?->NoWhen was patient's last menstrual cycle?->01/03/17FINAL REPORT Tunneled dialysis catheter insertion, 01/05/2017. History: Renal failure. Modality: Sonography and fluoroscopy. Sedation: Versed 1.0 mg and fentanyl 50 mcg was given intravenously for conscious sedation. Vital signs were monitored throughout the procedure by a nurse, and remained stable. Physician intra- service time was 20 minutes. Retail District Manager: Richard. Inspection Engineer: Rolf. Approach: Right internal jugular vein Estimated blood loss: < 5 cc. Specimen: None. Fluoroscopy Time: 0.4 min. Dose (Ka,r): 1.1mGy. Technique: Informed written consent was obtained. Discussion of risks, benefits, and alternatives were made with the patient. The patient expressed understanding and agreed to proceed. All elements maximal sterile barrier technique was utilized for this procedure, including utilization of sterile scrub solution for skin prep, a large sterile sheet to cover the areas of the patient that were not prepped, and hand hygiene, mask, head covering, and sterile gown for performing radiologist and scrub technologist. The skin was anesthetized with 2% lidocaine.Ultrasound evaluation showed a patent and compressible right internal jugular vein, which was punctured under direct real-time ultrasound guidance with a micropuncture needle. An ultrasound image was saved to PACS. A 0.018 inch wire wasplaced through the needle into the right atrium. A 4 Vincentian micropuncture sheath was placed. A subcutaneous tunnel was created in the right anterior chest wall by blunt dissection. A 19 cm 15.5 Vincentian Duraflow 2 catheter was brought through the tunnel. The vessel tract was serially dilated over a J-wire. A peel-away sheath was placed in the right IJ vein and the catheter was advanced through the sheath, with its distal tip terminating in the right atrium. The peel-away sheath was removed. The ports were flushed and aspirated easily following placement. The catheter was sutured to the skin with 2-0 silk to secure its placement. The small jugular incision site was closed using resorbable suture. Vital signs were monitored throughout the procedure by a nurse, and remained stable. The patient tolerated the procedure well and left the department in the same condition. The patient was given 1 gram of Ancef intravenously during the procedure. Results: Spot radiograph of the chest demonstrates the new dialysis catheter to lie in the expected position with its tip overlying the superior right atrium. Impression: Successful, uncomplicated placement of a right internal jugular tunneled dialysis catheter using sonographic and fluoroscopic guidance and conscious sedation. Signed : Jerrod Ramírez MDReport Verified Date/Time: 01/06/2017 17:45:51 Reading Location: [address] Ultrasound Reading Room [id number] 17:37:00 Test Item Value Reference Range Comments PARTIAL THROMBOPLASTIN TIME (BEAKER) (test > seconds 22.5-36.0 pwpe=295) U/S, RENAL, [id number] 17:29:00PT started dialysis 07/12/2015Reason for exam:->heart transplant evaluationFINAL REPORT Ultrasound of the Kidneys, 01/06/2017. Clinical History: Transplant evaluation. Discussion:Sonographic evaluation of the kidneys is performed. Right kidney: 9.4 cm in length, normal in size, with cortical thickness of 1.4 cm. Increased cortical echogenicity. [place]. No shadowing calculus. No hydronephrosis. Left kidney: 9.7 cm in length, normal in size, with cortical thickness of 1.5 cm. Increased cortical echogenicity. No mass. No shadowing calculus. No hydronephrosis. Limited Doppler evaluation demonstrates normal color Doppler flow within bilateralrenal han. Fluid: No perinephric fluid. Bladder: Unremarkable. IMPRESSION:Increased echogenicity of the bilateral kidneys which can be seen in medical renal disease. Signed: Jerrod Ramírez MDReport Verified Date/Time: 01/06/2017 17:29:12 Reading Location: [facility] P006J Ultrasound Reading Room TROPONIN [id number] 17:04:00 Test Item Value Reference Range Comments TROPONIN I (BEAKER) (test atyb=033) 0.10 ng/mL 0.00-0.03 Troponin I (TnI) levels must be interpreted in the context of the presenting symptoms and the clinical findings. Elevated TnI levels indicate myocardial damage, but are not specific for ischemic heart disease. Elevated TnI levels are seen in patients with other cardiac conditions (including myocarditis and congestive heart failure), and slight TnI elevations occur in patients with other conditions, including sepsis, renal failure, acidosis, acute neurological disease, and persistent tachyarrhythmia.[id number] 16:54:00 Test Item Value Reference Range Comments FERRITIN (BEAKER) (test bjrp=987) 216 ng/mL 5-275 VITAMIN D, [id number] 16:48:00 Test Item Value Reference Range Comments VITAMIN D 25-OH (BEAKER) (test scxo=6190) 6.4 ng/mL 6.6-49.9 Effective 12/21/2016: Reference Range ChangeNew: 6.6-49.9 ng/mL Previous: 13.0 -47.8 ng/mLRecommended Vitamin D Target Range: 30.0-40.0 ng/mLT4, [id number] 16:43:00 Test Item Value Reference Range Comments FREE T4 (BEAKER) (test lkto=304) 1.56 ng/dL 0.70-1.48 [id number] 16:43:00 Test Item Value Reference Range Comments THYROID STIMULATING HORMONE (BEAKER) (test 0.98 uIU/mL 0.35-4.94 mntj=573) [id number] 16:22:00 Test Item Value Reference Range Comments TRANSFERRIN (BEAKER) (test vuza=929) 122 mg/dL 174-382 [id number] 16:13:00 Test Item Value Reference Range Comments PREALBUMIN (BEAKER) (test qsze=797) 14 mg/dL 14-45 IRON, [id number] 16:13:00 Test Item Value Reference Range Comments IRON (BEAKER) (test dlek=756) 23 ug/dL 40-160 TROPONIN [id number] 15:31:00 Test Item Value Reference Range Comments TROPONIN I (BEAKER) (test czfv=992) 0.12 ng/mL 0.00-0.03 Troponin I (TnI) levels must be interpreted in the context of the presenting symptoms and the clinical findings. Elevated TnI levels indicate myocardial damage, but are not specific for ischemic heart disease. Elevated TnI levels are seen in patients with other cardiac conditions (including myocarditis and congestive heart failure), and slight TnI elevations occur in patients with other conditions, including sepsis, renal failure, acidosis, acute neurological disease, and persistent tachyarrhythmia.[id number] 15:30:00 Test Item Value Reference Range Comments CREATININE (BEAKER) (test 6.49 mg/dL 0.57-1.25 mgmg=363) EGFR (BEAKER) (test 8 mL/min/1.73 sq m ESTIMATED GFR IS NOT fgzw=8725) ACCURATE CREATININE CLEARANCE IN PREDICTING GLOMERULAR FILTRATION RATE. ESTIMATED GFR IS NOT APPLICABLE FOR DIALYSIS PATIENTS. URIC [id number] 15:25:00 Test Item Value Reference Range Comments URIC ACID (BEAKER) (test hnsm=488) 3.3 mg/dL 2.6-7.2 LIPID [id number] 15:25:00 Test Item Value Reference Range Comments TRIGLYCERIDES (BEAKER) (test ymoz=780) 57 mg/dL CHOLESTEROL (BEAKER) (test bnzk=458) 131 mg/dL HDL CHOLESTEROL (BEAKER) (test wzxe=407) 51 mg/dL LDL CHOLESTEROL CALCULATED (BEAKER) (test 69 mg/dL tuos=607) Triglyceride Reference Range: Low Risk <150 Borderline 150- 199 High Risk 200-499 Very High Risk >=500Cholesterol Reference Range: Low Risk <200 Borderline 200-239 High Risk > 240HDL Cholesterol Reference Range: Low Risk >=60 High Risk <40LDL Cholesterol Reference Range: Optimal <100 Near Optimal 100-129 Borderline 130-159 High 160-189 Very High >=[id number] 15:25:00 Test Item Value Reference Range Comments AMYLASE (BEAKER) (test kngq=491) 60 U/L 25-125 GAMMA GLUTAMYL TRANSFERASE (GGT)2017-01-06 15:25:00 Test Item Value Reference Range Comments GAMMA GLUTAMYL TRANSFERASE (BEAKER) (test sqty=580) 15 U/L 9-64 [id number] 15:25:00 Test Item Value Reference Range Comments LIPASE (BEAKER) (test tgbc=620) 46 U/L 8-78 RETICULOCYTE [id number] 15:07:00 Test Item Value Reference Range Comments RETICULOCYTE COUNT PCT (BEAKER) (test akwx=640) 1.2 % 0.5-1.7 POCT-GLUCOSE [id number] 09:33:00 Test Item Value Reference Range Comments POC-GLUCOSE METER (BEAKER) 103 mg/dL 70-110 TESTED AT [address] (test xzle=1381) [facility] [address] POCT-GLUCOSE [id number] 06:37:00 Test Item Value Reference Range Comments POC-GLUCOSE METER (BEAKER) 108 mg/dL 70-110 TESTED AT [address] (test ffqq=9200) [facility] [address] VANCOMYCIN LEVEL, [id number] 04:30:00 Test Item Value Reference Range Comments VANCOMYCIN RANDOM (BEAKER) (test imti=842) 37.6 ug/mL Reference Range: No NormalsTROPONIN [id number] 04:19:00 Test Item Value Reference Range Comments TROPONIN I (BEAKER) (test kkzl=245) 0.11 ng/mL 0.00-0.03 Troponin I (TnI) levels must be interpreted in the context of the presenting symptoms and the clinical findings. Elevated TnI levels indicate myocardial damage, but are not specific for ischemic heart disease. Elevated TnI levels are seen in patients with other cardiac conditions (including myocarditis and congestive heart failure), and slight TnI elevations occur in patients with other conditions, including sepsis, renal failure, acidosis, acute neurological disease, and persistent tachyarrhythmia.BASIC METABOLIC [id number] 04:12:00 Test Item Value Reference Range Comments SODIUM (BEAKER) (test 139 meq/L 136-145 dxau=729) POTASSIUM (BEAKER) (test 4.2 meq/L 3.5-5.1 azry=103) CHLORIDE (BEAKER) (test 105 meq/L 98-107 vfol=600) CO2 (BEAKER) (test 28 meq/L 22-29 zkvu=363) BLOOD UREA NITROGEN 15 mg/dL 7-21 (BEAKER) (test nmdm=855) CREATININE (BEAKER) (test 5.74 mg/dL 0.57-1.25 gjwe=427) GLUCOSE RANDOM (BEAKER) 85 mg/dL 70-105 (test fmqx=754) CALCIUM (BEAKER) (test 8.2 mg/dL 8.4-10.2 qnao=078) EGFR (BEAKER) (test 10 mL/min/1.73 sq m ESTIMATED GFR IS NOT rbra=5269) ACCURATE CREATININE CLEARANCE IN PREDICTING GLOMERULAR FILTRATION RATE. ESTIMATED GFR IS NOT APPLICABLE FOR DIALYSIS PATIENTS. [id number] 04:11:00 Test Item Value Reference Range Comments MAGNESIUM (BEAKER) (test mspt=280) 1.7 mg/dL 1.6-2.6 [id number] 03:57:00 Test Item Value Reference Range Comments PARTIAL THROMBOPLASTIN TIME (BEAKER) (test 36.0 seconds 22.5-36.0 ixio=732) Prior to initiating heparinCBC (HEMOGRAM ONLY)2017-01-06 03:49:00 Test Item Value Reference Range Comments WHITE BLOOD CELL COUNT (BEAKER) (test xihp=483) 7.3 K/ L 3.5-10.5 RED BLOOD CELL COUNT (BEAKER) (test scet=491) 2.81 M/ L 3.93-5.22 HEMOGLOBIN (BEAKER) (test uhad=100) 8.1 GM/DL 11.2-15.7 HEMATOCRIT (BEAKER) (test swpp=775) 26.1 % 34.1-44.9 MEAN CORPUSCULAR VOLUME (BEAKER) (test xhxc=031) 92.9 fL 79.4-94.8 MEAN CORPUSCULAR HEMOGLOBIN (BEAKER) (test 28.8 pg 25.6-32.2 nnom=587) MEAN CORPUSCULAR HEMOGLOBIN CONC (BEAKER) (test 31.0 GM/DL 32.2-35.5 bepq=787) RED CELL DISTRIBUTION WIDTH (BEAKER) (test 14.3 % 11.7-14.4 gnkc=202) PLATELET COUNT (BEAKER) (test coze=937) 150 K/CU MM 150-450 MEAN PLATELET VOLUME (BEAKER) (test mqjo=682) 11.0 fL 9.4-12.3 NUCLEATED RED BLOOD CELLS (BEAKER) (test 0 /100 WBC 0-0 qhrp=733) TROPONIN [id number] 00:42:00 Test Item Value Reference Range Comments TROPONIN I (BEAKER) (test mylp=637) 0.11 ng/mL 0.00-0.03 Troponin I (TnI) levels must be interpreted in the context of the presenting symptoms and the clinical findings. Elevated TnI levels indicate myocardial damage, but are not specific for ischemic heart disease. Elevated TnI levels are seen in patients with other cardiac conditions (including myocarditis and congestive heart failure), and slight TnI elevations occur in patients with other conditions, including sepsis, renal failure, acidosis, acute neurological disease, and persistent tachyarrhythmia.POCT-GLUCOSE [id number] 00:27:00 Test Item Value Reference Range Comments POC-GLUCOSE METER (BEAKER) 97 mg/dL 70-[address] [facility] [address] [place] [address] (test kavu=4545) [facility] [address] [id number] 00:23:00 Test Item Value Reference Range Comments PARTIAL THROMBOPLASTIN TIME (BEAKER) (test 34.2 seconds 22.5-36.0 ophm=436) [id number] 17:16:00 Test Item Value Reference Range Comments PARTIAL THROMBOPLASTIN TIME (BEAKER) (test 58.7 seconds 22.5-36.0 qcxi=330) TISSUE [id number] 16:16:00Surgical Pathology Report Case: [id number] Authorizing Provider: Fabi Parekh MD Collected: 01/04/2017 1055 Ordering Location: [facility] Received: 01/04/2017 1314 PERIOPERATIVE SERVICES Pathologist: Judit Medel MD Specimen: Hernia, Hernia Sac HERNIA SAC, ABDOMINAL, INCISIONAL HERNIA, REPAIR: - FIBROADIPOSE TISSUE AND REACTIVE CHANGS WITH FOREIGN BODY GIANT CELLS, CONSISTENT WITH INCISIONAL HERNIA SAC Signing Pathologist Direct Phone Line: [phone] signed by Judit Medel MD on 01/05/2017 at 4:16 [id number] renal disease, incisional hernia sacHernia sacReceived fresh labeled "hernia", description "hernia sac" is an 8.3 x 7.3 x 1.0 cm, dark-red to corral-white, irregular, rubbery, wrinkled portion of fibromembranoussoft tissue. Sectioning reveals no discrete masses. [place]lman sections are submitted in cassette A1. DB/ew Performed.[id number] 14:43:00 Test Item Value Reference Range Comments PARTIAL THROMBOPLASTIN TIME ([employer]) (test 162.1 seconds 22.5-36.0 asry=691) POCT-GLUCOSE [id number] 13:01:00 Test Item Value Reference Range Comments POC-GLUCOSE METER ([employer]ER) 88 mg/dL 70-110 TESTED AT [address] (test alle=8075) [facility] [address] TROPONIN [id number] 12:59:00 Test Item Value Reference Range Comments TROPONIN I (BEAKER) (test lixo=260) 0.13 ng/mL 0.00-0.03 Troponin I (TnI) levels must be interpreted in the context of the presenting symptoms and the clinical findings. Elevated TnI levels indicate myocardial damage, but are not specific for ischemic heart disease. Elevated TnI levels are seen in patients with other cardiac conditions (including myocarditis and congestive heart failure), and slight TnI elevations occur in patients with other conditions, including sepsis, renal failure, acidosis, acute neurological disease, and persistent tachyarrhythmia.SPIN/CONCENTRATION [id number] 12: 45:00 Test Item Value Reference Range Comments CONCENTRATION CHARGED (BEAKER) (test jnbu=0128) Done POCT-GLUCOSE [id number] 09:10:00 Test Item Value Reference Range Comments POC-GLUCOSE METER (BEAKER) 102 mg/dL 70-[address] [facility] [address] (test iizi=2429) [place] [address] CBC W/PLT COUNT & AUTO [id number] 08:49:00 Test Item Value Reference Range Comments WHITE BLOOD CELL COUNT (BEAKER) (test lnkk=647) 8.1 K/ L 3.5-10.5 RED BLOOD CELL COUNT (BEAKER) (test pffp=943) 2.94 M/ L 3.93-5.22 HEMOGLOBIN (BEAKER) (test ybrd=681) 8.5 GM/DL 11.2-15.7 HEMATOCRIT (BEAKER) (test trad=840) 26.9 % 34.1-44.9 MEAN CORPUSCULAR VOLUME (BEAKER) (test anfx=349) 91.5 fL 79.4-94.8 MEAN CORPUSCULAR HEMOGLOBIN (BEAKER) (test 28.9 pg 25.6-32.2 otgb=010) MEAN CORPUSCULAR HEMOGLOBIN CONC (BEAKER) (test 31.6 GM/DL 32.2-35.5 wetg=127) RED CELL DISTRIBUTION WIDTH (BEAKER) (test 14.3 % 11.7-14.4 pdif=695) PLATELET COUNT (BEAKER) (test isqw=976) 158 K/CU MM 150-450 MEAN PLATELET VOLUME (BEAKER) (test rfmr=645) 11.0 fL 9.4-12.3 NUCLEATED RED BLOOD CELLS (BEAKER) (test 0 /100 WBC 0-0 zgjp=637) NEUTROPHILS RELATIVE PERCENT (BEAKER) (test 71 % lchm=262) LYMPHOCYTES RELATIVE PERCENT (BEAKER) (test 14 % hnjw=728) MONOCYTES RELATIVE PERCENT (BEAKER) (test 14 % hcyr=369) EOSINOPHILS RELATIVE PERCENT (BEAKER) (test 1 % aezb=246) BASOPHILS RELATIVE PERCENT (BEAKER) (test 0 % natv=224) NEUTROPHILS ABSOLUTE COUNT (BEAKER) (test 5.73 K/ L 1.56-6.13 qzpj=564) LYMPHOCYTES ABSOLUTE COUNT (BEAKER) (test 1.14 K/ L 1.18-3.74 nsda=198) MONOCYTES ABSOLUTE COUNT (BEAKER) (test 1.11 K/ L 0.24-0.36 hdap=235) EOSINOPHILS ABSOLUTE COUNT (BEAKER) (test 0.10 K/ L 0.04-0.36 gywt=071) BASOPHILS ABSOLUTE COUNT (BEAKER) (test 0.02 K/ L 0.01-0.08 wtlx=777) IMMATURE GRANULOCYTES-RELATIVE PERCENT (BEAKER) 1 % 0-1 (test xilr=4708) POCT-GLUCOSE [id number] 07:57:00 Test Item Value Reference Range Comments POC-GLUCOSE METER (BEAKER) 133 mg/dL 70-110 TESTED AT [address] (test sqbz=9469) [place] [address] BODY FLUID CULTURE + GRAM [id number] 07:44:00 Test Item Value Reference Range Comments CULTURE (BEAKER) (test vndd=7325) No growth GRAM STAIN RESULT (BEAKER) (test <1+ WBCs azsh=7342) GRAM STAIN RESULT (BEAKER) (test No organisms seen vtsk=78741) POCT-GLUCOSE [id number] 06:05:00 Test Item Value Reference Range Comments POC-GLUCOSE METER (BEAKER) 63 mg/dL 70-110 TESTED AT [address] (test ywpl=8681) [place] [address] VANCOMYCIN LEVEL, [id number] 05:32:00 Test Item Value Reference Range Comments VANCOMYCIN RANDOM (BEAKER) (test xefu=741) 31.0 ug/mL Reference Range: No NormalsBASIC METABOLIC [id number] 05:24:00 Test Item Value Reference Range Comments SODIUM (BEAKER) (test 138 meq/L 136-145 fsfb=779) POTASSIUM (BEAKER) (test 5.1 meq/L 3.5-5.1 zmcq=773) CHLORIDE (BEAKER) (test 105 meq/L 98-107 euhn=450) CO2 (BEAKER) (test 27 meq/L 22-29 vgbd=336) BLOOD UREA NITROGEN 33 mg/dL 7-21 (BEAKER) (test xwgl=220) CREATININE (BEAKER) (test 9.93 mg/dL 0.57-1.25 ldlz=063) GLUCOSE RANDOM (BEAKER) 57 mg/dL 70-105 (test trvc=430) CALCIUM (BEAKER) (test 8.7 mg/dL 8.4-10.2 zqdx=939) EGFR (BEAKER) (test 5 mL/min/1.73 sq m ESTIMATED GFR IS NOT kjng=1599) ACCURATE CREATININE CLEARANCE IN PREDICTING GLOMERULAR FILTRATION RATE. ESTIMATED GFR IS NOT APPLICABLE FOR DIALYSIS PATIENTS. TROPONIN [id number] 05:23:00 Test Item Value Reference Range Comments TROPONIN I (BEAKER) (test nfje=722) 0.13 ng/mL 0.00-0.03 Troponin I (TnI) levels must be interpreted in the context of the presenting symptoms and the clinical findings. Elevated TnI levels indicate myocardial damage, but are not specific for ischemic heart disease. Elevated TnI levels are seen in patients with other cardiac conditions (including myocarditis and congestive heart failure), and slight TnI elevations occur in patients with other conditions, including sepsis, renal failure, acidosis, acute neurological disease, and persistent tachyarrhythmia.[id number] 05:21:00 Test Item Value Reference Range Comments MAGNESIUM (NEMESIOAKER) (test eqzc=612) 1.7 mg/dL 1.6-2.6 [id number] 05:06:00 Test Item Value Reference Range Comments PARTIAL THROMBOPLASTIN TIME (BEAKER) (test 89.4 seconds 22.5-36.0 bzsc=957) PROTHROMBIN [id number] 05:04:00 Test Item Value Reference Range Comments PROTIME (BEAKER) (test khfh=425) 14.6 seconds 11.7-14.7 INR (BEAKER) (test tnps=621) 1.2 <=5.9 RECOMMENDED COUMADIN/WARFARIN INR THERAPY RANGESSTANDARD DOSE: 2.0 - 3.0 Includes: PROPHYLAXIS forvenous thrombosis, systemic embolization; TREATMENT for venous thrombosis and/or pulmonary embolus.HIGH RISK: Target INR is 2.5-3.5 for patients with mechanical heart valves.TROPONIN [id number] 17:14:00 Test Item Value Reference Range Comments TROPONIN I (BEAKER) (test pzgp=669) 0.16 ng/mL 0.00-0.03 Troponin I (TnI) levels must be interpreted in the context of the presenting symptoms and the clinical findings. Elevated TnI levels indicate myocardial damage, but are not specific for ischemic heart disease. Elevated TnI levels are seen in patients with other cardiac conditions (including myocarditis and congestive heart failure), and slight TnI elevations occur in patients with other conditions, including sepsis, renal failure, acidosis, acute neurological disease, and persistent tachyarrhythmia.[id number] 16:55:00 Test Item Value Reference Range Comments GLUCOSE RANDOM (BEAKER) (test bbba=297) 140 mg/dL 70-105 GLUCOSE-STAT [id number] 13:33:00 Test Item Value Reference Range Comments GLUCOSE RANDOM (BEAKER) (test bqer=385) 101 mg/dL 70-110 POTASSIUM-STAT [id number] 13:33:00 Test Item Value Reference Range Comments POTASSIUM (BEAKER) (test pcew=053) 4.6 meq/L 3.6-5.5 HGB/HCT (H&H) - STAT [id number] 13:33:00 Test Item Value Reference Range Comments HEMOGLOBIN (BEAKER) (test xdhx=445) 13.0 g/dL 12.0-15.0 HEMATOCRIT (BEAKER) (test yxlh=772) 38.0 % 36.0-45.0 BODY FLUID CULTURE + GRAM [id number] 09:05:00 Test Item Value Reference Range Comments CULTURE (BEAKER) (test kfoi=0399) No growth GRAM STAIN RESULT (BEAKER) (test <1+ WBCs gygm=7523) GRAM STAIN RESULT (BEAKER) (test No organisms seen lyje=48334) POCT-GLUCOSE [id number] 07:58:00 Test Item Value Reference Range Comments POC-GLUCOSE METER (BEAKER) 81 mg/dL 70-[address] [facility] [address] [place] [address] (test ziwc=2619) [facility] [address] HCG, QUANTITATIVE, [id number] 07:23:00 Test Item Value Reference Range Comments GONADOTROPIN, CHORIONIC (HCG) QUANT (BEAKER) < mIU/mL 0-10 (test lnlb=972) Non- Females: <10 mIU/mL Females: Gestation Age Reference Range(mIU/mL) 0.2-1 Week 5-50 1-2 Weeks 50-500 2-3 Weeks 100-5,000 3-4Weeks 500-10,000 4 -5 Weeks 1,000-50,000 5-6 Weeks 10,000-100,000 6-8 Weeks 15,000-200,000 2-3 Months 10,000-100,000TROPONIN [id number] 07:19 :00 Test Item Value Reference Range Comments TROPONIN I (BEAKER) (test wpqq=952) 0.17 ng/mL 0.00-0.03 Troponin I (TnI) levels must be interpreted in the context of the presenting symptoms and the clinical findings. Elevated TnI levels indicate myocardial damage, but are not specific for ischemic heart disease. Elevated TnI levels are seen in patients with other cardiac conditions (including myocarditis and congestive heart failure), and slight TnI elevations occur in patients with other conditions, including sepsis, renal failure, acidosis, acute neurological disease, and persistent tachyarrhythmia.BASIC METABOLIC [id number] 07:19:00 Test Item Value Reference Range Comments SODIUM (BEAKER) (test 137 meq/L 136-145 bcoj=487) POTASSIUM (BEAKER) (test 4.4 meq/L 3.5-5.1 toxs=592) CHLORIDE (BEAKER) (test 103 meq/L 98-107 sgnf=042) CO2 (BEAKER) (test 27 meq/L 22-29 mseo=473) BLOOD UREA NITROGEN 26 mg/dL 7-21 (BEAKER) (test fguh=274) CREATININE (BEAKER) (test 8.02 mg/dL 0.57-1.25 wdro=032) GLUCOSE RANDOM (BEAKER) 74 mg/dL 70-105 (test rdym=330) CALCIUM (BEAKER) (test 8.3 mg/dL 8.4-10.2 sxdi=190) EGFR (BEAKER) (test 7 mL/min/1.73 sq m ESTIMATED GFR IS NOT dhnd=8923) ACCURATE CREATININE CLEARANCE IN PREDICTING GLOMERULAR FILTRATION RATE. ESTIMATED GFR IS NOT APPLICABLE FOR DIALYSIS PATIENTS. [id number] 07:18:00 Test Item Value Reference Range Comments MAGNESIUM (BEAKER) (test nbmk=554) 1.7 mg/dL 1.6-2.6 [id number] 06:48:00 Test Item Value Reference Range Comments PROTIME (BEAKER) (test ovxi=616) 15.0 seconds 11.7-14.7 INR (BEAKER) (test lxnh=904) 1.2 <=5.9 PARTIAL THROMBOPLASTIN TIME (BEAKER) (test 103.5 seconds 22.5-36.0 dzvg=086) RECOMMENDED COUMADIN/WARFARIN INR THERAPY RANGESSTANDARD DOSE: 2.0 - 3.0 Includes: PROPHYLAXIS forvenous thrombosis, systemic embolization; TREATMENT for venous thrombosis and/or pulmonary embolus.HIGH RISK: Target INR is 2.5-3.5 for patients with mechanical heart valves.CBC W/PLT COUNT & AUTO [id number] 06:44:00 Test Item Value Reference Range Comments WHITE BLOOD CELL COUNT (BEAKER) (test padj=624) 6.8 K/ L 3.5-10.5 RED BLOOD CELL COUNT (BEAKER) (test ajqb=057) 2.94 M/ L 3.93-5.22 HEMOGLOBIN (BEAKER) (test fvbq=370) 8.3 GM/DL 11.2-15.7 HEMATOCRIT (BEAKER) (test jjrb=814) 26.9 % 34.1-44.9 MEAN CORPUSCULAR VOLUME (BEAKER) (test gqjn=257) 91.5 fL 79.4-94.8 MEAN CORPUSCULAR HEMOGLOBIN (BEAKER) (test 28.2 pg 25.6-32.2 bisp=596) MEAN CORPUSCULAR HEMOGLOBIN CONC (BEAKER) (test 30.9 GM/DL 32.2-35.5 qvbj=855) RED CELL DISTRIBUTION WIDTH (BEAKER) (test 14.1 % 11.7-14.4 zncb=705) PLATELET COUNT (BEAKER) (test ovnq=803) 148 K/CU MM 150-450 MEAN PLATELET VOLUME (BEAKER) (test zful=870) 11.2 fL 9.4-12.3 NUCLEATED RED BLOOD CELLS (BEAKER) (test 0 /100 WBC 0-0 inml=434) NEUTROPHILS RELATIVE PERCENT (BEAKER) (test 64 % lvev=920) LYMPHOCYTES RELATIVE PERCENT (BEAKER) (test 15 % jrnu=156) MONOCYTES RELATIVE PERCENT (BEAKER) (test 16 % twst=596) EOSINOPHILS RELATIVE PERCENT (BEAKER) (test 5 % whgf=832) BASOPHILS RELATIVE PERCENT (BEAKER) (test 0 % jzef=519) NEUTROPHILS ABSOLUTE COUNT (BEAKER) (test 4.36 K/ L 1.56-6.13 szyi=697) LYMPHOCYTES ABSOLUTE COUNT (BEAKER) (test 1.05 K/ L 1.18-3.74 aolh=060) MONOCYTES ABSOLUTE COUNT (BEAKER) (test 1.06 K/ L 0.24-0.36 spbj=081) EOSINOPHILS ABSOLUTE COUNT (BEAKER) (test 0.32 K/ L 0.04-0.36 ltsu=828) BASOPHILS ABSOLUTE COUNT (BEAKER) (test 0.03 K/ L 0.01-0.08 ooqe=444) IMMATURE GRANULOCYTES-RELATIVE PERCENT (BEAKER) 0 % 0-1 (test qflb=8332) POCT-GLUCOSE [id number] 01:01:00 Test Item Value Reference Range Comments POC-GLUCOSE METER (BEAKER) 96 mg/dL 70-[address] [facility] [address] [facility] (test oskw=3318) [facility] [address] TROPONIN [id number] 00:46:00 Test Item Value Reference Range Comments TROPONIN I (BEAKER) (test vnqq=569) 0.16 ng/mL 0.00-0.03 Troponin I (TnI) levels must be interpreted in the context of the presenting symptoms and the clinical findings. Elevated TnI levels indicate myocardial damage, but are not specific for ischemic heart disease. Elevated TnI levels are seen in patients with other cardiac conditions (including myocarditis and congestive heart failure), and slight TnI elevations occur in patients with other conditions, including sepsis, renal failure, acidosis, acute neurological disease, and persistent tachyarrhythmia.[id number] 00:21:00 Test Item Value Reference Range Comments PROTIME (BEAKER) (test wukl=743) 15.8 seconds 11.7-14.7 INR (BEAKER) (test xkfa=130) 1.3 <=5.9 PARTIAL THROMBOPLASTIN TIME (BEAKER) (test 78.1 seconds 22.5-36.0 hgla=810) RECOMMENDED COUMADIN/WARFARIN INR THERAPY RANGESSTANDARD DOSE: 2.0 - 3.0 Includes: PROPHYLAXIS forvenous thrombosis, systemic embolization; TREATMENT for venous thrombosis and/or pulmonary embolus.HIGH RISK: Target INR is 2.5-3.5 for patients with mechanical heart valves.POCT-GLUCOSE [id number] 21:58:00 Test Item Value Reference Range Comments POC-GLUCOSE METER (BEAKER) 142 mg/dL 70-110 TESTED AT [address] (test zqdg=5822) [place] [address] VANCOMYCIN LEVEL, [id number] 20:19:00 Test Item Value Reference Range Comments VANCOMYCIN RANDOM (BEAKER) (test xtvl=119) 18.4 ug/mL Reference Range: No NormalsTROPONIN [id number] 18:36:00 Test Item Value Reference Range Comments TROPONIN I (BEAKER) (test pjfr=897) 0.18 ng/mL 0.00-0.03 Troponin I (TnI) levels must be interpreted in the context of the presenting symptoms and the clinical findings. Elevated TnI levels indicate myocardial damage, but are not specific for ischemic heart disease. Elevated TnI levels are seen in patients with other cardiac conditions (including myocarditis and congestive heart failure), and slight TnI elevations occur in patients with other conditions, including sepsis, renal failure, acidosis, acute neurological disease, and persistent tachyarrhythmia.POCT-GLUCOSE [id number] 18:30:00 Test Item Value Reference Range Comments POC-GLUCOSE METER (BEAKER) 119 mg/dL 70-110 TESTED AT [address] (test agzd=2885) [place] [address] HEMOGLOBIN [id number] 18:21:00 Test Item Value Reference Range Comments HEMOGLOBIN A1C (BEAKER) (test ryoh=253) 6.3 % 4.3-6.1 POCT-GLUCOSE [id number] 18:00:00 Test Item Value Reference Range Comments POC-GLUCOSE METER (BEAKER) 57 mg/dL 70-110 TESTED AT [address] (test snnz=7857) [place] [address] [id number] 16:34:00 Test Item Value Reference Range Comments PARTIAL THROMBOPLASTIN TIME (BEAKER) (test 99.2 seconds 22.5-36.0 kjkc=360) [id number] 15:36:00 Test Item Value Reference Range Comments PARTIAL THROMBOPLASTIN TIME (BEAKER) (test 123.9 seconds 22.5-36.0 oxpm=759) [id number] 13:38:00 Test Item Value Reference Range Comments PARTIAL THROMBOPLASTIN TIME (BEAKER) (test > seconds 22.5-36.0 qiaq=436) TROPONIN [id number] 13:27:00 Test Item Value Reference Range Comments TROPONIN I (BEAKER) (test fbdr=192) 0.19 ng/mL 0.00-0.03 Troponin I (TnI) levels must be interpreted in the context of the presenting symptoms and the clinical findings. Elevated TnI levels indicate myocardial damage, but are not specific for ischemic heart disease. Elevated TnI levels are seen in patients with other cardiac conditions (including myocarditis and congestive heart failure), and slight TnI elevations occur in patients with other conditions, including sepsis, renal failure, acidosis, acute neurological disease, and persistent tachyarrhythmia.POCT-GLUCOSE [id number] 13:25:00 Test Item Value Reference Range Comments POC-GLUCOSE METER (BEAKER) 120 mg/dL 70-110 TESTED AT [address] (test degb=9660) [place] [address] POCT-GLUCOSE [id number] 09:50:00 Test Item Value Reference Range Comments POC-GLUCOSE METER (BEAKER) 85 mg/dL 70-110 TESTED AT [address] (test emdg=6687) [place] [address] TROPONIN [id number] 08:31:00 Test Item Value Reference Range Comments TROPONIN I (BEAKER) (test ylyk=093) 0.20 ng/mL 0.00-0.03 Troponin I (TnI) levels must be interpreted in the context of the presenting symptoms and the clinical findings. Elevated TnI levels indicate myocardial damage, but are not specific for ischemic heart disease. Elevated TnI levels are seen in patients with other cardiac conditions (including myocarditis and congestive heart failure), and slight TnI elevations occur in patients with other conditions, including sepsis, renal failure, acidosis, acute neurological disease, and persistent tachyarrhythmia.[id number] 03:35:00 Test Item Value Reference Range Comments PARTIAL THROMBOPLASTIN TIME (BEAKER) (test 39.1 seconds 22.5-36.0 wevw=235) BASIC METABOLIC [id number] 03:34:00 Test Item Value Reference Range Comments SODIUM (BEAKER) (test 134 meq/L 136-145 jchh=075) POTASSIUM (BEAKER) (test 5.0 meq/L 3.5-5.1 sqyg=071) CHLORIDE (BEAKER) (test 100 meq/L 98-107 pqxm=593) CO2 (BEAKER) (test 24 meq/L 22-29 czub=888) BLOOD UREA NITROGEN 50 mg/dL 7-21 (BEAKER) (test tjud=857) CREATININE (BEAKER) (test 11.51 mg/dL 0.57-1.25 jbqj=788) GLUCOSE RANDOM (BEAKER) 105 mg/dL 70-105 (test ykdk=061) CALCIUM (BEAKER) (test 8.0 mg/dL 8.4-10.2 dakp=321) EGFR (BEAKER) (test 4 mL/min/1.73 sq m ESTIMATED GFR IS NOT halx=9150) ACCURATE CREATININE CLEARANCE IN PREDICTING GLOMERULAR FILTRATION RATE. ESTIMATED GFR IS NOT APPLICABLE FOR DIALYSIS PATIENTS. [id number] 03:32:00 Test Item Value Reference Range Comments MAGNESIUM (BEAKER) (test rvra=805) 1.5 mg/dL 1.6-2.6 CBC W/PLT COUNT & AUTO [id number] 03:17:00 Test Item Value Reference Range Comments WHITE BLOOD CELL COUNT (BEAKER) (test zfcv=210) 6.6 K/ L 3.5-10.5 RED BLOOD CELL COUNT (BEAKER) (test pkvf=471) 3.10 M/ L 3.93-5.22 HEMOGLOBIN (BEAKER) (test oial=123) 8.8 GM/DL 11.2-15.7 HEMATOCRIT (BEAKER) (test vwuu=507) 28.3 % 34.1-44.9 MEAN CORPUSCULAR VOLUME (BEAKER) (test kqjj=671) 91.3 fL 79.4-94.8 MEAN CORPUSCULAR HEMOGLOBIN (BEAKER) (test 28.4 pg 25.6-32.2 eecs=818) MEAN CORPUSCULAR HEMOGLOBIN CONC (BEAKER) (test 31.1 GM/DL 32.2-35.5 voqk=710) RED CELL DISTRIBUTION WIDTH (BEAKER) (test 14.1 % 11.7-14.4 zcgx=577) PLATELET COUNT (BEAKER) (test kvxt=037) 150 K/CU MM 150-450 MEAN PLATELET VOLUME (BEAKER) (test zjhe=729) 10.6 fL 9.4-12.3 NUCLEATED RED BLOOD CELLS (BEAKER) (test 0 /100 WBC 0-0 qocq=545) NEUTROPHILS RELATIVE PERCENT (BEAKER) (test 74 % cejl=421) LYMPHOCYTES RELATIVE PERCENT (BEAKER) (test 11 % rwlf=555) MONOCYTES RELATIVE PERCENT (BEAKER) (test 10 % acvi=829) EOSINOPHILS RELATIVE PERCENT (BEAKER) (test 4 % aoli=857) BASOPHILS RELATIVE PERCENT (BEAKER) (test 1 % qkjp=033) NEUTROPHILS ABSOLUTE COUNT (BEAKER) (test 4.91 K/ L 1.56-6.13 tkpx=385) LYMPHOCYTES ABSOLUTE COUNT (BEAKER) (test 0.74 K/ L 1.18-3.74 dquk=095) MONOCYTES ABSOLUTE COUNT (BEAKER) (test 0.65 K/ L 0.24-0.36 pkai=798) EOSINOPHILS ABSOLUTE COUNT (BEAKER) (test 0.29 K/ L 0.04-0.36 zoha=970) BASOPHILS ABSOLUTE COUNT (BEAKER) (test 0.03 K/ L 0.01-0.08 xifz=036) IMMATURE GRANULOCYTES-RELATIVE PERCENT (BEAKER) 0 % 0-1 (test khtm=7620) TROPONIN [id number] 01:22:00 Test Item Value Reference Range Comments TROPONIN I (BEAKER) (test nahg=151) 0.19 ng/mL 0.00-0.03 Troponin I (TnI) levels must be interpreted in the context of the presenting symptoms and the clinical findings. Elevated TnI levels indicate myocardial damage, but are not specific for ischemic heart disease. Elevated TnI levels are seen in patients with other cardiac conditions (including myocarditis and congestive heart failure), and slight TnI elevations occur in patients with other conditions, including sepsis, renal failure, acidosis, acute neurological disease, and persistent tachyarrhythmia.POCT-GLUCOSE [id number] 00:49:00 Test Item Value Reference Range Comments POC-GLUCOSE METER (BEAKER) 74 mg/dL 70-[address] [facility] [address] [facility] (test mihv=3246) [facility] [address] TROPONIN [id number] 18:57:00 Test Item Value Reference Range Comments TROPONIN I (BEAKER) (test jkij=110) 0.17 ng/mL 0.00-0.03 Troponin I (TnI) levels must be interpreted in the context of the presenting symptoms and the clinical findings. Elevated TnI levels indicate myocardial damage, but are not specific for ischemic heart disease. Elevated TnI levels are seen in patients with other cardiac conditions (including myocarditis and congestive heart failure), and slight TnI elevations occur in patients with other conditions, including sepsis, renal failure, acidosis, acute neurological disease, and persistent tachyarrhythmia.VANCOMYCIN LEVEL, [id number] 18:52 :00 Test Item Value Reference Range Comments VANCOMYCIN RANDOM (BEAKER) (test optz=423) 29.2 ug/mL Reference Range: No NormalsLACTATE DEHYDROGENASE (LDH)2017-01-02 18:46:00 Test Item Value Reference Range Comments LACTATE DEHYDROGENASE (BEAKER) (test crtl=347) 300 U/L 125-220 BODY FLUID CELL COUNT WITH [id number] 18:36:00 Test Item Value Reference Range Comments APPEARANCE FLUID (BEAKER) (test xnbs=789) Slightly Hazy Clear COLOR FLUID (BEAKER) (test kkyh=573) Yellow Colorless, Straw RBC FLUID (BEAKER) (test uchd=534) 690 /cu mm <=1 ADJUSTED WBC FLUID (BEAKER) (test wxcw=9409) 68 /cu mm <=5 LINING CELLS (BEAKER) (test rmdv=1992) 2 /cu mm <=1 NEUTROPHILS FLUID (BEAKER) (test tfjo=9125) 2 % LYMPHS FLUID (BEAKER) (test kevz=335) 9 % MONO/MACROPHAGE FLUID (BEAKER) (test 89 % lnnl=326) EOSINOPHILS FLUID (BEAKER) (test qzcc=018) 0 % BASO FLUID (BEAKER) (test ztgv=417) 0 % CONTAINER BODY FLUID (BEAKER) (test EDTA Tube jjea=2339) RAD, CHEST, 1 VIEW, NON [id number] 18:36:00PT started dialysis 07/12/2015 Reason for exam:->s/p thoraFINAL REPORT Comparison: TECHNIQUE: Single view of the chest FINDINGS: Right pleural effusion has decreased. No pneumothorax bilaterally. No other significant change. Signed : Turner Grier Verified Date/Time: 01/02/2017 18:36:30 Reading Location : [address] Consult Reading Room PH, BODY [id number] 18:22:00 Test Item Value Reference Range Comments PH, BODY FLUID (BEAKER) (test edys=1243) 7.80 POCT-GLUCOSE [id number] 18:19:00 Test Item Value Reference Range Comments POC-GLUCOSE METER (BEAKER) 91 mg/dL 70-[address] [facility] [address] [facility] (test nnwy=1324) [facility] [address] LACTATE DEHYDROGENASE (LDH), BODY [id number] 18:04:00 Test Item Value Reference Range Comments LACTATE DEHYDROGENASE FLUID (BEAKER) 123 U/L Light's criteria identifies (test rfbb=874) effusions if one or more are pre Absence of reference range indicates that normals have not been defined.Assay performance has not been validated for this type of specimen.PROTEIN, BODY [id number] 18:04:00 Test Item Value Reference Range Comments PROTEIN FLUID (BEAKER) (test 2.1 g/dL Light's criteria identifies fksc=060) effusions if one or more are pre Absence of reference range indicates that normals have not been defined.Assay performance has not been validated for this type of specimen.HEPATITIS B [id number] 13:51:00 Test Item Value Reference Range Comments HEPATITIS B CORE TOTAL ANTIBODY (BEAKER) (test Nonreactive Nonreactive eabe=487) HEPATITIS B SURFACE ANTIBODY (BEAKER) (test 29.1 mIU/mL <8.0 xsmn=951) HEPATITIS B SURFACE ANTIGEN (2) (BEAKER) (test Nonreactive Nonreactive wqqh=5533) CREATINE KINASE (CK), TOTAL AND [id number] 13:09:00 Test Item Value Reference Range Comments CREATINE KINASE TOTAL (BEAKER) (test yapl=658) 285 U/L 29-200 CREATINE KINASE-MB (BEAKER) (test onww=956) 15.2 ng/mL 0.0-6.6 CREATINE KINASE-MB INDEX (BEAKER) (test hcah=431) 5.3 % CK-MB Reference Range:<6.7 Normal6.7-10.0 Borderline>10.0 AbnormalTROPONIN [id number] 13:09:00 Test Item Value Reference Range Comments TROPONIN I (BEAKER) (test snvz=218) 0.18 ng/mL 0.00-0.03 Troponin I (TnI) levels must be interpreted in the context of the presenting symptoms and the clinical findings. Elevated TnI levels indicate myocardial damage, but are not specific for ischemic heart disease. Elevated TnI levels are seen in patients with other cardiac conditions (including myocarditis and congestive heart failure), and slight TnI elevations occur in patients with other conditions, including sepsis, renal failure, acidosis, acute neurological disease, and persistent tachyarrhythmia.POCT-GLUCOSE [id number] 12:25:00 Test Item Value Reference Range Comments POC-GLUCOSE METER (BEAKER) 95 mg/dL 70-110 TESTED AT [address] (test zrph=3137) [place] [address] POCT-GLUCOSE [id number] 11:56:00 Test Item Value Reference Range Comments POC-GLUCOSE METER (BEAKER) 65 mg/dL 70-110 Notified MILA IGLESIAS/TESTED AT [facility] (test jcxq=3911) [address] [place] [address] BASIC METABOLIC [id number] 06:05:00 Test Item Value Reference Range Comments SODIUM (BEAKER) (test 133 meq/L 136-145 jfbc=899) POTASSIUM (BEAKER) (test 4.5 meq/L 3.5-5.1 zuhh=898) CHLORIDE (BEAKER) (test 98 meq/L 98-107 kabz=724) CO2 (BEAKER) (test 27 meq/L 22-29 gxsb=989) BLOOD UREA NITROGEN 48 mg/dL 7-21 (BEAKER) (test grnd=228) CREATININE (BEAKER) (test 10.70 mg/dL 0.57-1.25 mtli=895) GLUCOSE RANDOM (BEAKER) 77 mg/dL 70-105 (test cgpd=524) CALCIUM (BEAKER) (test 8.7 mg/dL 8.4-10.2 hjqr=277) EGFR (BEAKER) (test 5 mL/min/1.73 sq m ESTIMATED GFR IS NOT hogm=4225) ACCURATE CREATININE CLEARANCE IN PREDICTING GLOMERULAR FILTRATION RATE. ESTIMATED GFR IS NOT APPLICABLE FOR DIALYSIS PATIENTS. TROPONIN [id number] 06:04:00 Test Item Value Reference Range Comments TROPONIN I (BEAKER) (test obln=358) 0.23 ng/mL 0.00-0.03 Troponin I (TnI) levels must be interpreted in the context of the presenting symptoms and the clinical findings. Elevated TnI levels indicate myocardial damage, but are not specific for ischemic heart disease. Elevated TnI levels are seen in patients with other cardiac conditions (including myocarditis and congestive heart failure), and slight TnI elevations occur in patients with other conditions, including sepsis, renal failure, acidosis, acute neurological disease, and persistent tachyarrhythmia.[id number] 06:03:00 Test Item Value Reference Range Comments MAGNESIUM (BEAKER) (test jqfm=825) 1.9 mg/dL 1.6-2.6 CBC W/PLT COUNT & AUTO [id number] 05:59:00 Test Item Value Reference Range Comments WHITE BLOOD CELL COUNT (BEAKER) (test fhou=627) 7.9 K/ L 3.5-10.5 RED BLOOD CELL COUNT (BEAKER) (test ujlq=413) 3.72 M/ L 3.93-5.22 HEMOGLOBIN (BEAKER) (test lbxm=310) 10.5 GM/DL 11.2-15.7 HEMATOCRIT (BEAKER) (test gcnb=876) 33.7 % 34.1-44.9 MEAN CORPUSCULAR VOLUME (BEAKER) (test tniz=201) 90.6 fL 79.4-94.8 MEAN CORPUSCULAR HEMOGLOBIN (BEAKER) (test 28.2 pg 25.6-32.2 snmj=518) MEAN CORPUSCULAR HEMOGLOBIN CONC (BEAKER) (test 31.2 GM/DL 32.2-35.5 sopo=968) RED CELL DISTRIBUTION WIDTH (BEAKER) (test 14.4 % 11.7-14.4 apce=522) PLATELET COUNT (BEAKER) (test mfje=917) 160 K/CU MM 150-450 MEAN PLATELET VOLUME (BEAKER) (test sxkp=296) 10.3 fL 9.4-12.3 NUCLEATED RED BLOOD CELLS (BEAKER) (test 0 /100 WBC 0-0 tofv=705) NEUTROPHILS RELATIVE PERCENT (BEAKER) (test 80 % yarz=430) LYMPHOCYTES RELATIVE PERCENT (BEAKER) (test 8 % lsza=831) MONOCYTES RELATIVE PERCENT (BEAKER) (test 9 % auur=893) EOSINOPHILS RELATIVE PERCENT (BEAKER) (test 2 % ghzp=774) BASOPHILS RELATIVE PERCENT (BEAKER) (test 1 % xupu=844) NEUTROPHILS ABSOLUTE COUNT (BEAKER) (test 6.31 K/ L 1.56-6.13 qhes=222) LYMPHOCYTES ABSOLUTE COUNT (BEAKER) (test 0.62 K/ L 1.18-3.74 acue=407) MONOCYTES ABSOLUTE COUNT (BEAKER) (test 0.67 K/ L 0.24-0.36 byzc=435) EOSINOPHILS ABSOLUTE COUNT (BEAKER) (test 0.18 K/ L 0.04-0.36 aqfk=708) BASOPHILS ABSOLUTE COUNT (BEAKER) (test 0.04 K/ L 0.01-0.08 eyzj=878) IMMATURE GRANULOCYTES-RELATIVE PERCENT (BEAKER) 0 % 0-1 (test zhmb=0293) TROPONIN [id number] 01:42:00 Test Item Value Reference Range Comments TROPONIN I (BEAKER) (test pmjv=837) 0.23 ng/mL 0.00-0.03 Troponin I (TnI) levels must be interpreted in the context of the presenting symptoms and the clinical findings. Elevated TnI levels indicate myocardial damage, but are not specific for ischemic heart disease. Elevated TnI levels are seen in patients with other cardiac conditions (including myocarditis and congestive heart failure), and slight TnI elevations occur in patients with other conditions, including sepsis, renal failure, acidosis, acute neurological disease, and persistent tachyarrhythmia.BASIC METABOLIC [id number] 01:37:00 Test Item Value Reference Range Comments SODIUM (BEAKER) (test 136 meq/L 136-145 flmk=940) POTASSIUM (BEAKER) (test 5.6 meq/L 3.5-5.1 lics=936) CHLORIDE (BEAKER) (test 100 meq/L 98-107 fcpn=058) CO2 (BEAKER) (test 24 meq/L 22-29 speu=624) BLOOD UREA NITROGEN 66 mg/dL 7-21 (BEAKER) (test mllw=698) CREATININE (BEAKER) (test 15.28 mg/dL 0.57-1.25 otvx=973) GLUCOSE RANDOM (BEAKER) 70 mg/dL 70-105 (test wipe=742) CALCIUM (BEAKER) (test 8.4 mg/dL 8.4-10.2 ybjb=828) EGFR (BEAKER) (test 3 mL/min/1.73 sq m ESTIMATED GFR IS NOT vnrx=4708) ACCURATE CREATININE CLEARANCE IN PREDICTING GLOMERULAR FILTRATION RATE. ESTIMATED GFR IS NOT APPLICABLE FOR DIALYSIS PATIENTS. [id number] 01:30:00 Test Item Value Reference Range Comments MAGNESIUM (BEAKER) (test kqrc=541) 1.5 mg/dL 1.6-2.6 POCT-GLUCOSE [id number] 00:03:00 Test Item Value Reference Range Comments POC-GLUCOSE METER (BEAKER) 76 mg/dL 70-110 TESTED AT [address] (test uecd=8552) [place] [address] POCT-GLUCOSE [id number] 22:26:00 Test Item Value Reference Range Comments POC-GLUCOSE METER (BEAKER) 60 mg/dL 70-110 TESTED AT [address] (test qqix=5844) [place] [address] TROPONIN [id number] 21:46:00 Test Item Value Reference Range Comments TROPONIN I (BEAKER) (test baka=392) 0.23 ng/mL 0.00-0.03 Troponin I (TnI) levels must be interpreted in the context of the presenting symptoms and the clinical findings. Elevated TnI levels indicate myocardial damage, but are not specific for ischemic heart disease. Elevated TnI levels are seen in patients with other cardiac conditions (including myocarditis and congestive heart failure), and slight TnI elevations occur in patients with other conditions, including sepsis, renal failure, acidosis, acute neurological disease, and persistent tachyarrhythmia.BASIC METABOLIC [id number] 21:38:00 Test Item Value Reference Range Comments SODIUM (BEAKER) (test 135 meq/L 136-145 vouo=628) POTASSIUM (BEAKER) (test 6.0 meq/L 3.5-5.1 ycuj=865) CHLORIDE (BEAKER) (test 97 meq/L 98-107 dlfs=811) CO2 (BEAKER) (test 26 meq/L 22-29 xxjy=092) BLOOD UREA NITROGEN 78 mg/dL 7-21 (BEAKER) (test bhep=259) CREATININE (BEAKER) (test 17.30 mg/dL 0.57-1.25 yxwc=218) GLUCOSE RANDOM (BEAKER) 66 mg/dL 70-105 (test xsgj=277) CALCIUM (BEAKER) (test 8.5 mg/dL 8.4-10.2 uvse=326) EGFR (BEAKER) (test 3 mL/min/1.73 sq m ESTIMATED GFR IS NOT xvsj=0567) ACCURATE CREATININE CLEARANCE IN PREDICTING GLOMERULAR FILTRATION RATE. ESTIMATED GFR IS NOT APPLICABLE FOR DIALYSIS PATIENTS. [id number] 21:35:00 Test Item Value Reference Range Comments MAGNESIUM (BEAKER) (test xdgg=452) 1.6 mg/dL 1.6-2.6 [id number] 21:34:00 Test Item Value Reference Range Comments PHOSPHORUS (BEAKER) (test cwrt=141) 7.7 mg/dL 2.3-4.7 RAD, CHEST, 1 VIEW, NON [id number] 21:30:00PT started dialysis 2015Reason for exam:->Line placementShould this be performed at the bedside?- >YesFINAL REPORT RAD, CHEST, 1 VIEW, NON DEPT INDICATION: Line placement COMPARISON: Two hours prior FINDINGS: Portable frontal view of the chest. IMPRESSION: Support Lines: Multilumen right IJ central venous catheter appears slightly advanced, projecting over the superior vena cava near the level of the kelly.. No additional central line is identified. Lungs and pleura: Unchanged airspace and pleural opacities. No pneumothorax.Heart and mediastinum: Stable contours. Additional findings: None. Signed: JR Astorga Robert [facility] Verified Date/Time: 01/01/2017 21:30: 48 Reading Location: [facility] C013Y CT Body Reading Room BODY FLUID CELL COUNT WITH [id number] 20:13:00 Test Item Value Reference Range Comments APPEARANCE FLUID (BEAKER) (test wdml=862) Cloudy Clear COLOR FLUID (BEAKER) (test whvn=370) Straw Colorless, Straw RBC FLUID (BEAKER) (test vudp=486) 2071 /cu mm <=1 ADJUSTED WBC FLUID (BEAKER) (test baaz=3354) 156 /cu mm <=5 LINING CELLS (BEAKER) (test vdlo=1103) 2 /cu mm <=1 NEUTROPHILS FLUID (BEAKER) (test gssr=1083) 3 % LYMPHS FLUID (BEAKER) (test obet=300) 42 % MONO/MACROPHAGE FLUID (BEAKER) (test htji=232) 55 % EOSINOPHILS FLUID (BEAKER) (test svhs=113) 0 % BASO FLUID (BEAKER) (test xibg=658) 0 % CONTAINER BODY FLUID (BEAKER) (test lexi=1336) EDTA Tube COMPREHENSIVE METABOLIC [id number] 19:19:00 Test Item Value Reference Range Comments TOTAL PROTEIN (BEAKER) 7.3 gm/dL 6.0-8.3 Specimen slightly (test dkdr=533) hemolyzed ALBUMIN (BEAKER) (test 2.4 g/dL 3.5-5.0 Specimen slightly nijj=4447) hemolyzed ALKALINE PHOSPHATASE 74 U/L 40-150 (BEAKER) (test awpq=094) BILIRUBIN TOTAL (BEAKER) 0.5 mg/dL 0.2-1.2 Specimen slightly (test bdjb=783) hemolyzed SODIUM (BEAKER) (test 135 meq/L 136-145 vkjf=375) POTASSIUM (BEAKER) (test 5.7 meq/L 3.5-5.1 Specimen slightly dist=758) hemolyzed CHLORIDE (BEAKER) (test 97 meq/L 98-107 zsdp=783) CO2 (BEAKER) (test 26 meq/L 22-29 wved=927) BLOOD UREA NITROGEN 72 mg/dL 7-21 (BEAKER) (test skub=285) CREATININE (BEAKER) (test 17.18 mg/dL 0.57-1.25 Specimen slightly xofo=396) hemolyzed GLUCOSE RANDOM (BEAKER) 70 mg/dL 70-105 (test qeyp=564) CALCIUM (BEAKER) (test 8.8 mg/dL 8.4-10.2 lphe=702) AST (SGOT) (BEAKER) (test 37 U/L 5-34 Specimen slightly cvoj=716) hemolyzed ALT (SGPT) (BEAKER) (test 30 U/L 6-55 Specimen slightly smnq=688) hemolyzed EGFR (BEAKER) (test 3 mL/min/1.73 sq m ESTIMATED GFR IS NOT cpzq=2733) ACCURATE CREATININE CLEARANCE IN PREDICTING GLOMERULAR FILTRATION RATE. ESTIMATED GFR IS NOT APPLICABLE FOR DIALYSIS PATIENTS. RAD, CHEST, 1 VIEW, NON [id number] 18:48:00PT started dialysis 07/12/2015 Reason for exam:->s/p left thoracentesis Should this be performed at the bedside?->YesFINAL REPORT Comparison: 01/01/2017 TECHNIQUE: Single view of the chest FINDINGS: Left pleural effusion has decreased. No pneumothorax bilaterally. Interval placement of a right internal jugular catheter. Tip projects in the mid SVC. No other gross change. Signed: Turner Grier [facility]ort Verified Date/Time: 01/01/2017 18:48:26 Reading Location: [address] Transitional Reading Room POCT-GLUCOSE [id number] 18:23:00 Test Item Value Reference Range Comments POC-GLUCOSE METER (BEAKER) 79 mg/dL 70-110 TESTED AT [address] (test uxcd=2171) [place] [address] [id number] 18:09:00 Test Item Value Reference Range Comments AMMONIA (BEAKER) (test 9 mol/L 18-72 Specimen markedly hemolyzed iyvt=843) [id number] 18:08:00 Test Item Value Reference Range Comments MAGNESIUM (BEAKER) (test 2.8 mg/dL 1.6-2.6 Specimen markedly hemolyzed kmrg=929) [id number] 18:08:00 Test Item Value Reference Range Comments PHOSPHORUS (BEAKER) (test 8.1 mg/dL 2.3-4.7 Specimen markedly hemolyzed brxt=806) POCT-GLUCOSE [id number] 18:07:00 Test Item Value Reference Range Comments POC-GLUCOSE METER (BEAKER) 81 mg/dL 70-110 TESTED AT [address] (test gtma=2023) [place] [address] LACTIC ACID, ARTERIAL, WHOLE [id number] 17:14:00 Test Item Value Reference Range Comments LACTATE BLOOD ARTERIAL (2) 0.9 mmol/L 0.5-2.2 Specimen slightly hemolyzed (BEAKER) (test krnb=8899) Effective 07/15/2015: Units/Reference Range ChangeNew: 0.5-2.2 mmol/L Previous: 5 -20 mg/[id number] 17:12:00 Test Item Value Reference Range Comments PROCALCITONIN (BEAKER) (test kgfz=4869) 0.72 ng/mL <0.05 SEPSIS RISK (ng/mL)Low: 0.05-0.50Intermediate: 0.51-2.00High: & gt;=2.01TROPONIN [id number] 16:56:00 Test Item Value Reference Range Comments TROPONIN I (BEAKER) (test yszb=328) 0.25 ng/mL 0.00-0.03 Troponin I (TnI) levels must be interpreted in the context of the presenting symptoms and the clinical findings. Elevated TnI levels indicate myocardial damage, but are not specific for ischemic heart disease. Elevated TnI levels are seen in patients with other cardiac conditions (including myocarditis and congestive heart failure), and slight TnI elevations occur in patients with other conditions, including sepsis, renal failure, acidosis, acute neurological disease, and persistent tachyarrhythmia.CREATINE KINASE (CK), TOTAL AND [id number] 16:52:00 Test Item Value Reference Range Comments CREATINE KINASE TOTAL (BEAKER) (test fgrq=019) 662 U/L 29-200 CREATINE KINASE-MB (BEAKER) (test iibs=192) 17.6 ng/mL 0.0-6.6 CREATINE KINASE-MB INDEX (BEAKER) (test qcco=817) 2.7 % CK-MB Reference Range:<6.7 Normal6.7-10.0 Borderline>10.0 AbnormalB-TYPE NATRIURETIC FACTOR (BNP)2017-01-01 16:52:00 Test Item Value Reference Range Comments B-TYPE NATRIURETIC PEPTIDE (BEAKER) (test 2749 pg/mL 0-100 nvig=649) BLOOD GAS, [id number] 16:50:00 Test Item Value Reference Range Comments PH ARTERIAL (BEAKER) (test rbfk=052) 7.40 7.35-7.45 PCO2 ARTERIAL (BEAKER) (test avmz=819) 48 mmHg 35-45 PO2 ARTERIAL (BEAKER) (test apxn=910) 80 mmHg 80-90 O2 SATURATION ARTERIAL (BEAKER) (test igxw=428) 96.0 % 96.0-97.0 HCO3 ARTERIAL (BEAKER) (test vanc=609) 29 mmol/L 21-29 BASE EXCESS ARTERIAL (BEAKER) (test oonf=598) 3.6 mmol/L -2.0-3.0 PATIENT TEMPERATURE (BEAKER) (test qzpe=4336) 36.5 C FIO2 (BEAKER) (test tmcm=3241) 21.0 % [id number] 16:46:00 Test Item Value Reference Range Comments PHOSPHORUS (BEAKER) (test 7.9 mg/dL 2.3-4.7 Specimen markedly hemolyzed qojd=735) [id number] 16:46:00 Test Item Value Reference Range Comments LIPASE (BEAKER) (test uxur=601) 38 U/L 8-78 CALCIUM, [id number] 16:46:00 Test Item Value Reference Range Comments CALCIUM IONIZED (BEAKER) (test qjfz=137) 1.00 mmol/L 1.12-1.27 PH, BLOOD (BEAKER) (test cudq=8716) 7.36 PROTHROMBIN TIME/[id number] 16:43:00 Test Item Value Reference Range Comments PROTIME (BEAKER) (test lefy=242) 16.2 seconds 11.7-14.7 INR (BEAKER) (test dxki=060) 1.3 <=5.9 RECOMMENDED COUMADIN/WARFARIN INR THERAPY RANGESSTANDARD DOSE: 2.0 - 3.0 Includes: PROPHYLAXIS forvenous thrombosis, systemic embolization; TREATMENT for venous thrombosis and/or pulmonary embolus.HIGH RISK: Target INR is 2.5-3.5 for patients with mechanical heart valves.CBC W/PLT COUNT & AUTO [id number] 16:30:00 Test Item Value Reference Range Comments WHITE BLOOD CELL COUNT (BEAKER) (test rbmq=932) 6.9 K/ L 3.5-10.5 RED BLOOD CELL COUNT (BEAKER) (test cpew=373) 3.41 M/ L 3.93-5.22 HEMOGLOBIN (BEAKER) (test oexw=562) 9.9 GM/DL 11.2-15.7 HEMATOCRIT (BEAKER) (test xyzf=839) 30.7 % 34.1-44.9 MEAN CORPUSCULAR VOLUME (BEAKER) (test aluy=804) 90.0 fL 79.4-94.8 MEAN CORPUSCULAR HEMOGLOBIN (BEAKER) (test 29.0 pg 25.6-32.2 msay=202) MEAN CORPUSCULAR HEMOGLOBIN CONC (BEAKER) (test 32.2 GM/DL 32.2-35.5 xqzr=175) RED CELL DISTRIBUTION WIDTH (BEAKER) (test 14.6 % 11.7-14.4 pmgw=451) PLATELET COUNT (BEAKER) (test thtw=881) 235 K/CU MM 150-450 MEAN PLATELET VOLUME (BEAKER) (test ehxw=867) 11.2 fL 9.4-12.3 NUCLEATED RED BLOOD CELLS (BEAKER) (test 0 /100 WBC 0-0 ejrj=565) NEUTROPHILS RELATIVE PERCENT (BEAKER) (test 76 % qjub=858) LYMPHOCYTES RELATIVE PERCENT (BEAKER) (test 12 % mpfm=288) MONOCYTES RELATIVE PERCENT (BEAKER) (test 10 % rrfh=484) EOSINOPHILS RELATIVE PERCENT (BEAKER) (test 1 % ippu=172) BASOPHILS RELATIVE PERCENT (BEAKER) (test 0 % ztxg=257) NEUTROPHILS ABSOLUTE COUNT (BEAKER) (test 5.23 K/ L 1.56-6.13 zphe=402) LYMPHOCYTES ABSOLUTE COUNT (BEAKER) (test 0.86 K/ L 1.18-3.74 rijl=683) MONOCYTES ABSOLUTE COUNT (BEAKER) (test 0.68 K/ L 0.24-0.36 mqlq=621) EOSINOPHILS ABSOLUTE COUNT (BEAKER) (test 0.10 K/ L 0.04-0.36 hlcg=827) BASOPHILS ABSOLUTE COUNT (BEAKER) (test 0.02 K/ L 0.01-0.08 jrgw=552) IMMATURE GRANULOCYTES-RELATIVE PERCENT (BEAKER) 0 % 0-1 (test cywz=0196) RAD, CHEST, 1 VIEW, NON [id number] 15:22:00PT started dialysis 2015Post-intubationReason for exam:->sobShould [facility]?->YesFINAL REPORT Comparison: 06/07/2016 TECHNIQUE: Single view of the chest FINDINGS: There is a moderate to large left pleural effusion and moderate right pleural effusion with nonspecific adjacent airspace disease. Cardiac silhouette is obscured. No gross pneumothorax. No acute skeletal abnormality. Signed: Turner Grier MDR[facility]ort Verified Date/Time: 15:22:20 Reading Location: [facility] C013T Transitional Reading Room BODY FLUID CULTURE + GRAM [id number] 11:17:00 Test Item Value Reference Range Comments CULTURE (BEAKER) (test kouo=8242) No growth GRAM STAIN RESULT (BEAKER) (test <1+ WBCs zjtj=7239) GRAM STAIN RESULT (BEAKER) (test No organisms seen zktv=72918) [id number] 15:47:00Medical Cytology Report Case: [id number] Authorizing Provider: Verena Carrero MD Collected: 12/12/2016 1540 Ordering Location: [facility] Laboratory Received: 12/13/2016 1002 Pathologist: Gokul Hood MD Specimen: Pleural, Right RIGHT PLEURAL FLUID (CYTOSPINS): - NEGATIVE FOR MALIGNANT CELLS Signing Pathologist Direct Phone Line: [phone] signed by Gokul Hood MD on 12/13/2016 at 3:47 PMReactive mesothelialcells are noted.[id number] pleural effusion; CHFRIGHT PLEURAL FLUID4 cytospins prepared from 200 ml yellow fluidCollected: [id number]: [id number] [facility], Departmentof Pathology, [address] [place] [id number], [place], Department of Pathology, [address] [place] [id number] , KXHTWCFW GRAVITY, BODY [id number] 15:33:00 Test Item Value Reference Range Comments SP GRAVITY MISCELLANEOUS (BEAKER) (test wxfb=533) 1.019 Reference Range: No NormalsBODY FLUID [id number] 11:49:00 Test Item Value Reference Range Comments CRYSTALS, BODY FLUID (BEAKER) No crystals seen. (test uqti=6623) [id number] (BEAKER) Anne Farshad, MD (electronic (test nqbx=2812) signature) PH, BODY [id number] 00:24:00 Test Item Value Reference Range Comments PH, BODY FLUID (BEAKER) (test fhcp=4693) 7.90 BODY FLUID CELL COUNT WITH [id number] 19:53:00 Test Item Value Reference Range Comments APPEARANCE FLUID (BEAKER) (test nqgx=156) Clear Clear COLOR FLUID (BEAKER) (test ovhe=647) Straw Colorless, Straw RBC FLUID (BEAKER) (test dpqf=519) 1 /cu mm <=1 ADJUSTED WBC FLUID (BEAKER) (test tbcg=8688) 21 /cu mm <=5 LINING CELLS (BEAKER) (test zypu=4852) 0 /cu mm <=1 NEUTROPHILS FLUID (BEAKER) (test eszz=6438) 0 % LYMPHS FLUID (BEAKER) (test rubj=063) 8 % MONO/MACROPHAGE FLUID (BEAKER) (test lnyi=913) 92 % EOSINOPHILS FLUID (BEAKER) (test kcdy=913) 0 % BASO FLUID (BEAKER) (test wmqt=983) 0 % CONTAINER BODY FLUID (BEAKER) (test eqzb=7050) EDTA Tube ALBUMIN, BODY [id number] 19:31:00 Test Item Value Reference Range Comments ALBUMIN FLUID (BEAKER) (test swiz=773) 0.9 gm/dL Reference Range: No Normals Assay performance has not been validated for this type of specimen.RIGHT THORACENTESIS, PLEURAL FLUIDRIGHT THORACENTESIS, PLEURAL FLUIDRIGHT THORACENTESIS, PLEURAL FLUIDRIGHT THORACENTESIS, PLEURAL FLUIDRIGHT THORACENTESIS, PLEURAL FLUIDRIGHT THORACENTESIS, PLEURAL FLUIDCREATININE, BODY [id number] 19:31:00 Test Item Value Reference Range Comments CREATININE FLUID (BEAKER) (test gxpv=309) 15.62 mg/dL Reference Range: No Normals Assay performance has not been validated for this type of specimen.RIGHT THORACENTESIS, PLEURAL FLUIDRIGHT THORACENTESIS, PLEURAL FLUIDRIGHT THORACENTESIS, PLEURAL FLUIDRIGHT THORACENTESIS, PLEURAL FLUIDRIGHT THORACENTESIS, PLEURAL FLUIDRIGHT THORACENTESIS, PLEURAL FLUIDAMYLASE, BODY [id number] 19:27:00 Test Item Value Reference Range Comments AMYLASE FLUID (BEAKER) (test esbd=948) 39 U/L Absence of reference range indicates that normals have not been defined.Assay performance has not been validated for this type of specimen.RIGHT THORACENTESIS , PLEURAL FLUIDRIGHT THORACENTESIS, PLEURALFLUIDRIGHT THORACENTESIS, PLEURAL FLUIDRIGHT THORACENTESIS, PLEURAL FLUIDRIGHT THORACENTESIS, PLEURAL FLUIDRIGHT THORACENTESIS, PLEURAL FLUIDLACTATE DEHYDROGENASE (LDH), BODY [id number] 19 :27:00 Test Item Value Reference Range Comments LACTATE DEHYDROGENASE FLUID (BEAKER) (test gynl=057) 113 U/L Absence of reference range indicates that normals have not been defined.Assay performance has not been validated for this type of specimen.RIGHT THORACENTESIS , PLEURAL FLUIDRIGHT THORACENTESIS, PLEURALFLUIDRIGHT THORACENTESIS, PLEURAL FLUIDRIGHT THORACENTESIS, PLEURAL FLUIDRIGHT THORACENTESIS, PLEURAL FLUIDRIGHT THORACENTESIS, PLEURAL FLUIDPROTEIN, BODY [id number] 19:27:00 Test Item Value Reference Range Comments PROTEIN FLUID (BEAKER) (test gfpd=940) 2.1 g/dL Absence of reference range indicates that normals have not been defined.Assay performance has not been validated for this type of specimen.RIGHT THORACENTESIS , PLEURAL FLUIDRIGHT THORACENTESIS, PLEURALFLUIDRIGHT THORACENTESIS, PLEURAL FLUIDRIGHT THORACENTESIS, PLEURAL FLUIDRIGHT THORACENTESIS, PLEURAL FLUIDRIGHT THORACENTESIS, PLEURAL FLUIDGLUCOSE, BODY [id number] 19:27:00 Test Item Value Reference Range Comments GLUCOSE, BODY FLUID (BEAKER) (test rncy=7409) 172 mg/dL Absence of reference range indicates that normals have not been defined.Assay performance has not been validated for this type of specimen.RIGHT THORACENTESIS , PLEURAL FLUIDRIGHT THORACENTESIS, PLEURALFLUIDRIGHT THORACENTESIS, PLEURAL FLUIDRIGHT THORACENTESIS, PLEURAL FLUIDRIGHT THORACENTESIS, PLEURAL FLUIDRIGHT THORACENTESIS, PLEURAL FLUIDAFB CULTURE + [id number] 18:17:00 Test Item Value Reference Range Comments CULTURE (BEAKER) (test No acid-fast bacilli isolated wxyx=9053) in 42 days AFB SMEAR (BEAKER) (test No acid fast bacilli seen xsby=864) FUNGUS CULTURE + [id number] 19:24:00 Test Item Value Reference Range Comments CULTURE (BEAKER) (test No fungus isolated in 28 days yyoi=2600) FUNGUS SMEAR (BEAKER) (test No fungi seen rsxh=2282) BLOOD [id number] 08:20:00 Test Item Value Reference Range Comments CULTURE (BEAKER) (test yjmk=3256) No growth in 5 days BLOOD [id number] 08:13:00 Test Item Value Reference Range Comments CULTURE (BEAKER) (test fhrx=0206) No growth in 5 days POCT-GLUCOSE [id number] 08:25:00 Test Item Value Reference Range Comments POC-GLUCOSE METER (BEAKER) 244 mg/dL 70-[address] [facility] [address] [facility] (test jhys=2307) [facility] [address] BASIC METABOLIC [id number] 05:31:00 Test Item Value Reference Range Comments SODIUM (BEAKER) (test 134 meq/L 136-145 yyuz=769) POTASSIUM (BEAKER) (test 4.1 meq/L 3.5-5.1 pqch=650) CHLORIDE (BEAKER) (test 96 meq/L 98-107 oplb=729) CO2 (BEAKER) (test 23 meq/L 22-29 jgnx=010) BLOOD UREA NITROGEN 58 mg/dL 7-21 (BEAKER) (test ddlx=081) CREATININE (BEAKER) (test 16.21 mg/dL 0.57-1.25 tekp=049) GLUCOSE RANDOM (BEAKER) 224 mg/dL 70-105 (test vgof=848) CALCIUM (BEAKER) (test 8.7 mg/dL 8.4-10.2 dnzv=569) EGFR (BEAKER) (test 3 mL/min/1.73 sq m ESTIMATED GFR IS NOT rrkf=6676) ACCURATE CREATININE CLEARANCE IN PREDICTING GLOMERULAR FILTRATION RATE. ESTIMATED GFR IS NOT APPLICABLE FOR DIALYSIS PATIENTS. [id number] 05:27:00 Test Item Value Reference Range Comments MAGNESIUM (BEAKER) (test oatu=647) 2.2 mg/dL 1.6-2.6 CBC (HEMOGRAM ONLY)2016-06-09 05:22:00 Test Item Value Reference Range Comments WHITE BLOOD CELL COUNT (BEAKER) (test chwy=735) 5.7 K/ L 4.0-10.0 RED BLOOD CELL COUNT (BEAKER) (test uhql=599) 3.51 M/ L 4.00-5.00 HEMOGLOBIN (BEAKER) (test nvxp=851) 9.9 GM/DL 12.0-15.0 HEMATOCRIT (BEAKER) (test tfox=582) 30.6 % 36.0-45.0 MEAN CORPUSCULAR VOLUME (BEAKER) (test qzys=512) 87.2 fL 82.0-99.0 MEAN CORPUSCULAR HEMOGLOBIN (BEAKER) (test 28.2 pg 27.0-33.0 iuln=323) MEAN CORPUSCULAR HEMOGLOBIN CONC (BEAKER) (test 32.4 GM/DL 32.0-36.0 sukm=612) RED CELL DISTRIBUTION WIDTH (BEAKER) (test 18.2 % 10.3-14.2 pcgb=488) PLATELET COUNT (BEAKER) (test jeyp=462) 214 K/CU MM 150-430 MEAN PLATELET VOLUME (BEAKER) (test izmb=268) 10.0 fL 6.5-10.5 NUCLEATED RED BLOOD CELLS (BEAKER) (test 0 /100 WBC 0-0 bnvh=700) 0.00POCT-GLUCOSE [id number] 00:54:00 Test Item Value Reference Range Comments POC-GLUCOSE METER (BEAKER) 124 mg/dL 70-110 TESTED AT [address] (test pxja=0255) [place] [address] POCT-GLUCOSE [id number] 17:10:00 Test Item Value Reference Range Comments POC-GLUCOSE METER (BEAKER) 146 mg/dL 70-110 TESTED AT [address] (test eijp=7595) [place] [address] BODY FLUID CULTURE + GRAM [id number] 15:37:00 Test Item Value Reference Range Comments CULTURE (BEAKER) (test oate=5154) No growth GRAM STAIN RESULT (BEAKER) (test No WBCs dlsa=7473) GRAM STAIN RESULT (BEAKER) (test No organisms seen afxo=36808) PERITONEAL DIALYSIS EFFLUENT [id number] 15:25:00 Test Item Value Reference Range Comments CULTURE (BEAKER) (test mwtp=9590) No growth POCT-GLUCOSE [id number] 12:03:00 Test Item Value Reference Range Comments POC-GLUCOSE METER (BEAKER) 170 mg/dL 70-110 TESTED AT [address] (test ergl=7927) [place] [address] HEPATITIS C PCR, [id number] 09:44:00 Test Item Value Reference Range Comments HCV NUMERIC RESULT (BEAKER) (test xnpk=1818) 498779 IU/mL <15 This test uses a Real-Time Polymerase Chain Reaction (RT-PCR) methodology and was performed using [employer] Ampliprep/SHELLY TaqMan HCV test kit version 2.0 ( [employer]).Reportable range for this assay is 15 - 100,000, 000 IU per mL (1.18 - 8.00 Log IU/mL).POCT-GLUCOSE [id number] 08:07:00 Test Item Value Reference Range Comments POC-GLUCOSE METER (BEAKER) 183 mg/dL 70-110 TESTED AT [address] (test zzap=4136) [place] [address] CBC (HEMOGRAM ONLY)2016-06-08 06:53:00 Test Item Value Reference Range Comments WHITE BLOOD CELL COUNT (BEAKER) (test cmvz=247) 6.2 K/ L 4.0-10.0 RED BLOOD CELL COUNT (BEAKER) (test jlxo=031) 3.22 M/ L 4.00-5.00 HEMOGLOBIN (BEAKER) (test elnh=086) 9.5 GM/DL 12.0-15.0 HEMATOCRIT (BEAKER) (test bvkd=156) 28.1 % 36.0-45.0 MEAN CORPUSCULAR VOLUME (BEAKER) (test yoig=561) 87.5 fL 82.0-99.0 MEAN CORPUSCULAR HEMOGLOBIN (BEAKER) (test 29.5 pg 27.0-33.0 ypcd=571) MEAN CORPUSCULAR HEMOGLOBIN CONC (BEAKER) (test 33.7 GM/DL 32.0-36.0 kxrj=907) RED CELL DISTRIBUTION WIDTH (BEAKER) (test 18.3 % 10.3-14.2 mjpj=019) PLATELET COUNT (BEAKER) (test qqks=665) 188 K/CU MM 150-430 MEAN PLATELET VOLUME (BEAKER) (test gtcy=036) 9.2 fL 6.5-10.5 NUCLEATED RED BLOOD CELLS (BEAKER) (test 0 /100 WBC 0-0 wtjq=264) 0.00BASIC METABOLIC [id number] 05:44:00 Test Item Value Reference Range Comments SODIUM (BEAKER) (test 134 meq/L 136-145 fsqr=496) POTASSIUM (BEAKER) (test 4.1 meq/L 3.5-5.1 heed=554) CHLORIDE (BEAKER) (test 96 meq/L 98-107 gfwq=705) CO2 (BEAKER) (test 23 meq/L 22-29 ucdk=695) BLOOD UREA NITROGEN 61 mg/dL 7-21 (BEAKER) (test kvcx=324) CREATININE (BEAKER) (test 16.52 mg/dL 0.57-1.25 axju=431) GLUCOSE RANDOM (BEAKER) 229 mg/dL 70-105 (test wchz=576) CALCIUM (BEAKER) (test 8.4 mg/dL 8.4-10.2 ahoa=639) EGFR (BEAKER) (test 3 mL/min/1.73 sq m ESTIMATED GFR IS NOT tcwy=3612) ACCURATE CREATININE CLEARANCE IN PREDICTING GLOMERULAR FILTRATION RATE. ESTIMATED GFR IS NOT APPLICABLE FOR DIALYSIS PATIENTS. [id number] 05:41:00 Test Item Value Reference Range Comments MAGNESIUM (BEAKER) (test cbgl=834) 2.3 mg/dL 1.6-2.6 POCT-GLUCOSE [id number] 20:59:00 Test Item Value Reference Range Comments POC-GLUCOSE METER (BEAKER) 105 mg/dL 70-110 TESTED AT [address] (test vreh=4181) [place] [id number] POCT-GLUCOSE [id number] 17:58:00 Test Item Value Reference Range Comments POC-GLUCOSE METER (BEAKER) 129 mg/dL 70-110 TESTED AT [address] (test mpkt=9465) [facility] [address] POCT-GLUCOSE [id number] 17:58:00 Test Item Value Reference Range Comments POC-GLUCOSE METER (BEAKER) 138 mg/dL 70-110 TESTED AT [address] (test qrev=9314) [place] [id number] ANTI-NUCLEAR ANTIBODY ([place]ILTON)2016-06-07 14:51:00 Test Item Value Reference Range Comments ANTI-NUCLEAR ANTIBODY ([place]) (BEAKER) (test Negative Negative cmix=633) [id number] 09:26:00 Test Item Value Reference Range Comments PHOSPHORUS (BEAKER) (test wqos=532) 7.8 mg/dL 2.3-4.7 POCT-GLUCOSE [id number] 08:18:00 Test Item Value Reference Range Comments POC-GLUCOSE METER (BEAKER) 140 mg/dL 70-[address] [facility] [address] [facility] (test wmjv=6612) [facility] [address] CBC (HEMOGRAM ONLY)2016-06-07 07:53:00 Test Item Value Reference Range Comments WHITE BLOOD CELL COUNT (BEAKER) (test drdd=905) 5.1 K/ L 4.0-10.0 RED BLOOD CELL COUNT (BEAKER) (test fqdx=515) 3.19 M/ L 4.00-5.00 HEMOGLOBIN (BEAKER) (test ntot=754) 9.2 GM/DL 12.0-15.0 HEMATOCRIT (BEAKER) (test ndeq=624) 28.0 % 36.0-45.0 MEAN CORPUSCULAR VOLUME (BEAKER) (test ypih=469) 87.6 fL 82.0-99.0 MEAN CORPUSCULAR HEMOGLOBIN (BEAKER) (test 28.9 pg 27.0-33.0 gvri=096) MEAN CORPUSCULAR HEMOGLOBIN CONC (BEAKER) (test 32.9 GM/DL 32.0-36.0 hyqo=747) RED CELL DISTRIBUTION WIDTH (BEAKER) (test 18.1 % 10.3-14.2 rbrt=956) PLATELET COUNT (BEAKER) (test eukp=286) 188 K/CU MM 150-430 MEAN PLATELET VOLUME (BEAKER) (test ojms=446) 9.2 fL 6.5-10.5 NUCLEATED RED BLOOD CELLS (BEAKER) (test 0 /100 WBC 0-0 ajei=634) 0.00BASIC METABOLIC [id number] 07:30:00 Test Item Value Reference Range Comments SODIUM (BEAKER) (test 136 meq/L 136-145 zuxb=271) POTASSIUM (BEAKER) (test 4.2 meq/L 3.5-5.1 fpfw=129) CHLORIDE (BEAKER) (test 98 meq/L 98-107 unme=509) CO2 (BEAKER) (test 23 meq/L 22-29 jezn=716) BLOOD UREA NITROGEN 59 mg/dL 7-21 (BEAKER) (test ggxs=853) CREATININE (BEAKER) (test 16.05 mg/dL 0.57-1.25 psmf=828) GLUCOSE RANDOM (BEAKER) 165 mg/dL 70-105 (test oryj=415) CALCIUM (BEAKER) (test 8.0 mg/dL 8.4-10.2 lrcz=416) EGFR (BEAKER) (test 3 mL/min/1.73 sq m ESTIMATED GFR IS NOT rmzr=6209) ACCURATE CREATININE CLEARANCE IN PREDICTING GLOMERULAR FILTRATION RATE. ESTIMATED GFR IS NOT APPLICABLE FOR DIALYSIS PATIENTS. [id number] 07:29:00 Test Item Value Reference Range Comments MAGNESIUM (BEAKER) (test nlok=091) 1.7 mg/dL 1.6-2.6 VANCOMYCIN LEVEL, [id number] 07:28:00 Test Item Value Reference Range Comments VANCOMYCIN RANDOM (BEAKER) (test wbop=656) 18.5 ug/mL Reference Range: No NormalsPOCT-GLUCOSE [id number] 21:54:00 Test Item Value Reference Range Comments POC-GLUCOSE METER ([facility]) 112 mg/dL 70-110 TESTED AT [address] (test qcte=7647) [facility] [address] [id number] 19:10:00 Test Item Value Reference Range Comments ACTIVATED CLOTTING TIME 337 sec TESTED AT [address] [facility] (test lftu=307) [facility] [address] [id number] 16:26:00 Test Item Value Reference Range Comments PARTIAL THROMBOPLASTIN TIME (BEAKER) (test 83.0 seconds 22.5-36.0 zfaf=340) HEPATIC FUNCTION [id number] 14:54:00 Test Item Value Reference Range Comments TOTAL PROTEIN (BEAKER) (test fizj=496) 6.6 gm/dL 6.0-8.3 ALBUMIN (BEAKER) (test wfmi=5020) 2.4 g/dL 3.5-5.0 BILIRUBIN TOTAL (BEAKER) (test tpfd=441) 0.2 mg/dL 0.2-1.2 BILIRUBIN DIRECT (BEAKER) (test keiv=805) 0.1 mg/dL 0.1-0.5 ALKALINE PHOSPHATASE (BEAKER) (test wfif=475) 100 U/L 40-150 AST (SGOT) (BEAKER) (test mzpn=660) 18 U/L 5-34 ALT (SGPT) (BEAKER) (test rryz=339) 18 U/L 6-55 [id number] 13:30:00 Test Item Value Reference Range Comments FERRITIN (BEAKER) (test yafl=729) 343 ng/mL 5-275 Effective 01/28/2014: Reference Range ChangeNew: Male 5-275 Previous: Male 22-322 Female 5-275 Female [id number] [id number] 13:01:00 Test Item Value Reference Range Comments POC-GLUCOSE METER (BEAKER) 121 mg/dL 70-[address] [facility] [address] [facility] (test sfwp=0681) [facility] [address] HEPATITIS C [id number] 11:01:00 Test Item Value Reference Range Comments HEPATITIS C ANTIBODY (BEAKER) (test beho=180) Reactive Nonreactive HEPATITIS B SURFACE [id number] 10:32:00 Test Item Value Reference Range Comments HEPATITIS B SURFACE ANTIGEN (2) (BEAKER) (test Nonreactive Nonreactive myuw=1222) HEPATITIS B SURFACE [id number] 10:32:00 Test Item Value Reference Range Comments HEPATITIS B SURFACE ANTIBODY (BEAKER) (test 71.3 mIU/mL <8.0 lgqc=901) HEPATITIS A ANTIBODY, [id number] 10:32:00 Test Item Value Reference Range Comments HEPATITIS A IGM ANTIBODY (BEAKER) (test Nonreactive Nonreactive cemb=435) HEPATITIS B CORE ANTIBODY, [id number] 10:32:00 Test Item Value Reference Range Comments HEPATITIS B CORE TOTAL ANTIBODY (BEAKER) (test Nonreactive Nonreactive mlpj=837) LACTATE DEHYDROGENASE (LDH), BODY [id number] 10:24:00 Test Item Value Reference Range Comments LACTATE DEHYDROGENASE FLUID < U/L Light's criteria identifies (BEAKER) (test rysi=130) effusions if one or more are pre Absence of reference range indicates that normals have not been defined.Assay performance has not been validated for this type of specimen.[id number] 10:19:00 Test Item Value Reference Range Comments TRANSFERRIN (BEAKER) (test huey=325) 165 mg/dL 174-382 IRON, TIBC, % SAT. (WITHOUT FERRITIN)2016-06-06 10:19:00 Test Item Value Reference Range Comments IRON (BEAKER) (test caaw=879) 41 ug/dL 40-160 TOTAL IRON BINDING CAPACITY (BEAKER) (test 206 ug/dL 250-450 vxmg=882) IRON % SATURATION (2) (BEAKER) (test hgzk=9697) 20 % 20-55 PROTEIN, [id number] 09:36:00 Test Item Value Reference Range Comments TOTAL PROTEIN (BEAKER) (test irfv=462) 6.5 gm/dL 6.0-8.3 LACTATE DEHYDROGENASE (LDH)2016-06-06 09:36:00 Test Item Value Reference Range Comments LACTATE DEHYDROGENASE (BEAKER) (test nnqt=837) 248 U/L 125-220 [id number] 09:32:00 Test Item Value Reference Range Comments PARTIAL THROMBOPLASTIN TIME (BEAKER) (test 72.0 seconds 22.5-36.0 nsjc=368) Prior to initiating heparinPROTHROMBIN [id number] 09:30:00 Test Item Value Reference Range Comments PROTIME (BEAKER) (test wsob=542) 15.2 seconds 11.7-14.7 INR (BEAKER) (test vmwe=279) 1.2 <=5.9 RECOMMENDED COUMADIN/WARFARIN INR THERAPY RANGESSTANDARD DOSE: 2.0 - 3.0 Includes: PROPHYLAXIS forvenous thrombosis, systemic embolization; TREATMENT for venous thrombosis and/or pulmonary embolus.HIGH RISK: Target INR is 2.5-3.5 for patients with mechanical heart valves.Prior to initiating heparinCBC ( HEMOGRAM ONLY)2016-06-06 09:19:00 Test Item Value Reference Range Comments WHITE BLOOD CELL COUNT (BEAKER) (test whdb=684) 6.3 K/ L 4.0-10.0 RED BLOOD CELL COUNT (BEAKER) (test lbgo=499) 3.26 M/ L 4.00-5.00 HEMOGLOBIN (BEAKER) (test yaej=134) 9.3 GM/DL 12.0-15.0 HEMATOCRIT (BEAKER) (test biqi=818) 28.7 % 36.0-45.0 MEAN CORPUSCULAR VOLUME (BEAKER) (test bofh=889) 88.2 fL 82.0-99.0 MEAN CORPUSCULAR HEMOGLOBIN (BEAKER) (test 28.4 pg 27.0-33.0 dmms=802) MEAN CORPUSCULAR HEMOGLOBIN CONC (BEAKER) (test 32.2 GM/DL 32.0-36.0 dhip=119) RED CELL DISTRIBUTION WIDTH (BEAKER) (test 19.0 % 10.3-14.2 lvkm=147) PLATELET COUNT (BEAKER) (test urim=995) 185 K/CU MM 150-430 MEAN PLATELET VOLUME (BEAKER) (test zcwg=977) 9.0 fL 6.5-10.5 NUCLEATED RED BLOOD CELLS (BEAKER) (test 0 /100 WBC 0-0 mrim=547) PLATELET [id number] 09:15:00 Test Item Value Reference Range Comments PLATELET COUNT (BEAKER) (test eicu=123) 185 K/CU MM 150-430 POCT-GLUCOSE [id number] 08:01:00 Test Item Value Reference Range Comments POC-GLUCOSE METER (BEAKER) 119 mg/dL 70-110 TESTED AT [address] (test sgtx=1266) [facility] [address] [id number] 04:10:00 Test Item Value Reference Range Comments MAGNESIUM (BEAKER) (test ajiu=149) 1.8 mg/dL 1.6-2.6 BASIC METABOLIC [id number] 04:10:00 Test Item Value Reference Range Comments SODIUM (BEAKER) (test 136 meq/L 136-145 lpdm=069) POTASSIUM (BEAKER) (test 4.0 meq/L 3.5-5.1 ehrd=701) CHLORIDE (BEAKER) (test 97 meq/L 98-107 svbn=267) CO2 (BEAKER) (test 24 meq/L 22-29 tenh=227) BLOOD UREA NITROGEN 64 mg/dL 7-21 (BEAKER) (test rzfm=208) CREATININE (BEAKER) (test 16.35 mg/dL 0.57-1.25 xosk=325) GLUCOSE RANDOM (BEAKER) 124 mg/dL 70-105 (test uzwz=311) CALCIUM (BEAKER) (test 7.7 mg/dL 8.4-10.2 zmfx=444) EGFR (BEAKER) (test 3 mL/min/1.73 sq m ESTIMATED GFR IS NOT wxes=2774) ACCURATE CREATININE CLEARANCE IN PREDICTING GLOMERULAR FILTRATION RATE. ESTIMATED GFR IS NOT APPLICABLE FOR DIALYSIS PATIENTS. [id number] 04:09:00 Test Item Value Reference Range Comments PARTIAL THROMBOPLASTIN TIME (BEAKER) (test 92.0 seconds 22.5-36.0 nqzh=500) CBC (HEMOGRAM ONLY)2016-06-06 03:58:00 Test Item Value Reference Range Comments WHITE BLOOD CELL COUNT (BEAKER) (test yboi=773) 6.1 K/ L 4.0-10.0 RED BLOOD CELL COUNT (BEAKER) (test pzvd=861) 3.19 M/ L 4.00-5.00 HEMOGLOBIN (BEAKER) (test jzuy=854) 9.2 GM/DL 12.0-15.0 HEMATOCRIT (BEAKER) (test eglq=552) 27.9 % 36.0-45.0 MEAN CORPUSCULAR VOLUME (BEAKER) (test nfva=042) 87.4 fL 82.0-99.0 MEAN CORPUSCULAR HEMOGLOBIN (BEAKER) (test 28.9 pg 27.0-33.0 sdjm=188) MEAN CORPUSCULAR HEMOGLOBIN CONC (BEAKER) (test 33.0 GM/DL 32.0-36.0 nrtm=254) RED CELL DISTRIBUTION WIDTH (BEAKER) (test 18.0 % 10.3-14.2 iknx=801) PLATELET COUNT (BEAKER) (test iwgt=106) 185 K/CU MM 150-430 MEAN PLATELET VOLUME (BEAKER) (test yvtx=227) 9.1 fL 6.5-10.5 NUCLEATED RED BLOOD CELLS (BEAKER) (test 0 /100 WBC 0-0 jdgv=170) 0.00POCT-GLUCOSE [id number] 00:10:00 Test Item Value Reference Range Comments POC-GLUCOSE METER (BEAKER) 235 mg/dL 70-[address] [facility] [address] [facility] (test mzvm=0491) [place] [address] GRAM [id number] 23:45:00 Test Item Value Reference Range Comments GRAM STAIN RESULT (BEAKER) (test <1+ WBCs uesg=0989) GRAM STAIN RESULT (BEAKER) (test No organisms seen gowh=27895) BODY FLUID CELL COUNT WITH [id number] 20:12:00 Test Item Value Reference Range Comments APPEARANCE FLUID (BEAKER) (test eigg=396) Clear Clear COLOR FLUID (BEAKER) (test newx=319) Straw Colorless, Straw RBC FLUID (BEAKER) (test wnhx=256) 200 /cu mm <=1 ADJUSTED WBC FLUID (BEAKER) (test dbit=4662) 20 /cu mm <=5 LINING CELLS (BEAKER) (test obdy=6220) 0 /cu mm <=1 NEUTROPHILS FLUID (BEAKER) (test xehy=2317) 9 % LYMPHS FLUID (BEAKER) (test gzea=657) 39 % MONO/MACROPHAGE FLUID (BEAKER) (test qhoi=834) 52 % EOSINOPHILS FLUID (BEAKER) (test cqdc=601) 0 % BASO FLUID (BEAKER) (test vwml=387) 0 % CONTAINER BODY FLUID (BEAKER) (test znkb=3114) EDTA Tube BODY FLUID CELL COUNT WITH [id number] 19:33:00 Test Item Value Reference Range Comments APPEARANCE FLUID (BEAKER) (test joql=262) Slightly Hazy Clear COLOR FLUID (BEAKER) (test xcyh=174) Straw Colorless, Straw RBC FLUID (BEAKER) (test tzup=725) 90 /cu mm <=1 ADJUSTED WBC FLUID (BEAKER) (test acmg=8939) 125 /cu mm <=5 LINING CELLS (BEAKER) (test pfyt=2858) 5 /cu mm <=1 NEUTROPHILS FLUID (BEAKER) (test drdb=1951) 2 % LYMPHS FLUID (BEAKER) (test nphf=273) 30 % MONO/MACROPHAGE FLUID (BEAKER) (test 68 % dgat=301) EOSINOPHILS FLUID (BEAKER) (test tbvh=216) 0 % BASO FLUID (BEAKER) (test zchr=493) 0 % CONTAINER BODY FLUID (BEAKER) (test EDTA Tube wedn=3222) PROTEIN, BODY [id number] 19:01:00 Test Item Value Reference Range Comments PROTEIN FLUID (BEAKER) (test 2.4 g/dL Light's criteria identifies jube=818) effusions if one or more are pre Absence of reference range indicates that normals have not been defined.Assay performance has not been validated for this type of specimen.GLUCOSE, BODY [id number] 19:01:00 Test Item Value Reference Range Comments GLUCOSE, BODY FLUID (BEAKER) (test acpf=8031) 193 mg/dL 70-110 Absence of reference range indicates that normals have not been defined.Assay performance has not been validated for this type of specimen.PH, BODY [id number] 18:45:00 Test Item Value Reference Range Comments PH, BODY FLUID (BEAKER) (test zcwd=7558) 7.73 [id number] 18:22:00 Test Item Value Reference Range Comments PARTIAL THROMBOPLASTIN TIME (BEAKER) (test 36.7 seconds 22.5-36.0 jeog=930) PROTHROMBIN [id number] 18:20:00 Test Item Value Reference Range Comments PROTIME (BEAKER) (test lddh=469) 15.3 seconds 11.7-14.7 INR (BEAKER) (test nrkp=535) 1.2 <=5.9 RECOMMENDED COUMADIN/WARFARIN INR THERAPY RANGESSTANDARD DOSE: 2.0 - 3.0 Includes: PROPHYLAXIS forvenous thrombosis, systemic embolization; TREATMENT for venous thrombosis and/or pulmonary embolus.HIGH RISK: Target INR is 2.5-3.5 for patients with mechanical heart valves.POCT-GLUCOSE [id number] 18:04:00 Test Item Value Reference Range Comments POC-GLUCOSE METER (BEAKER) 182 mg/dL 70-[address] [facility] [address] [facility] (test ugay=7257) [facility] [address] CREATINE KINASE (CK), TOTAL AND [id number] 16:32:00 Test Item Value Reference Range Comments CREATINE KINASE TOTAL (BEAKER) (test jynu=565) 247 U/L 29-200 CREATINE KINASE-MB (BEAKER) (test yoxk=290) 8.4 ng/mL 0.0-6.6 CREATINE KINASE-MB INDEX (BEAKER) (test srgh=240) 3.4 % Effective 01/28/2014: CK-MB Reference Range ChangeNew: 0.0-6.6 Previous: 0.0- 4.9CK-MB Reference Range:<6.7 Normal6.7-10.0 Borderline>10.0 AbnormalTROPONIN [id number] 16:32:00 Test Item Value Reference Range Comments TROPONIN I (BEAKER) (test yrkt=754) 0.06 ng/mL 0.00-0.03 Effective 01/28/2014: Reference Range ChangeNew: 0.00-0.03 Previous 0.00- 0.15Troponin I (TnI) levels must be interpreted in the context of the presenting symptoms and the clinical findings. Elevated TnI levels indicate myocardial damage, but are not specific for ischemic heart disease. Elevated TnI levels are seen in patients with other cardiac conditions (including myocarditis and congestive heartfailure), and slight TnI elevations occur in patients with other conditions, including sepsis, renalfailure, acidosis, acute neurological disease, and persistent tachyarrhythmia.BASIC METABOLIC [id number] 16:31:00 Test Item Value Reference Range Comments SODIUM (BEAKER) (test 135 meq/L 136-145 qxva=512) POTASSIUM (BEAKER) (test 4.7 meq/L 3.5-5.1 djcl=470) CHLORIDE (BEAKER) (test 95 meq/L 98-107 yawc=795) CO2 (BEAKER) (test 24 meq/L 22-29 nzzy=569) BLOOD UREA NITROGEN 72 mg/dL 7-21 (BEAKER) (test glge=123) CREATININE (BEAKER) (test 17.37 mg/dL 0.57-1.25 ptmf=533) GLUCOSE RANDOM (BEAKER) 179 mg/dL 70-105 (test cymr=947) CALCIUM (BEAKER) (test 7.7 mg/dL 8.4-10.2 cktx=609) EGFR (BEAKER) (test 3 mL/min/1.73 sq m ESTIMATED GFR IS NOT gvuv=3125) ACCURATE CREATININE CLEARANCE IN PREDICTING GLOMERULAR FILTRATION RATE. ESTIMATED GFR IS NOT APPLICABLE FOR DIALYSIS PATIENTS. [id number] 16:26:00 Test Item Value Reference Range Comments PHOSPHORUS (BEAKER) (test cqep=435) 8.1 mg/dL 2.3-4.7 [id number] 16:26:00 Test Item Value Reference Range Comments MAGNESIUM (BEAKER) (test tpqs=462) 1.9 mg/dL 1.6-2.6 HEPATIC FUNCTION [id number] 16:26:00 Test Item Value Reference Range Comments TOTAL PROTEIN (BEAKER) (test hqlc=058) 6.6 gm/dL 6.0-8.3 ALBUMIN (BEAKER) (test xnot=1571) 2.5 g/dL 3.5-5.0 BILIRUBIN TOTAL (BEAKER) (test orcc=382) 0.2 mg/dL 0.2-1.2 BILIRUBIN DIRECT (BEAKER) (test fbgw=689) 0.1 mg/dL 0.1-0.5 ALKALINE PHOSPHATASE (BEAKER) (test lwtn=328) 105 U/L 40-150 AST (SGOT) (BEAKER) (test plpi=785) 18 U/L 5-34 ALT (SGPT) (BEAKER) (test oveq=435) 21 U/L 6-55 CBC W/PLT COUNT & AUTO [id number] 16:07:00 Test Item Value Reference Range Comments WHITE BLOOD CELL COUNT (BEAKER) (test qlqp=470) 5.1 K/ L 4.0-10.0 RED BLOOD CELL COUNT (BEAKER) (test igys=276) 3.26 M/ L 4.00-5.00 HEMOGLOBIN (BEAKER) (test ljtp=582) 9.3 GM/DL 12.0-15.0 HEMATOCRIT (BEAKER) (test qdrw=645) 28.8 % 36.0-45.0 MEAN CORPUSCULAR VOLUME (BEAKER) (test clkv=049) 88.1 fL 82.0-99.0 MEAN CORPUSCULAR HEMOGLOBIN (BEAKER) (test 28.4 pg 27.0-33.0 xmia=907) MEAN CORPUSCULAR HEMOGLOBIN CONC (BEAKER) (test 32.2 GM/DL 32.0-36.0 yttr=104) RED CELL DISTRIBUTION WIDTH (BEAKER) (test 19.1 % 10.3-14.2 oizl=333) PLATELET COUNT (BEAKER) (test jmhu=180) 182 K/CU MM 150-430 MEAN PLATELET VOLUME (BEAKER) (test gklw=828) 8.6 fL 6.5-10.5 NUCLEATED RED BLOOD CELLS (BEAKER) (test 0 /100 WBC 0-0 unnr=117) NEUTROPHILS RELATIVE PERCENT (BEAKER) (test 64 % dcei=876) LYMPHOCYTES RELATIVE PERCENT (BEAKER) (test 21 % muhx=299) MONOCYTES RELATIVE PERCENT (BEAKER) (test 11 % piqq=242) EOSINOPHILS RELATIVE PERCENT (BEAKER) (test 3 % niod=352) BASOPHILS RELATIVE PERCENT (BEAKER) (test 1 % hlbb=074) NEUTROPHILS ABSOLUTE COUNT (BEAKER) (test 3.26 K/ L 1.80-8.00 xjxl=696) LYMPHOCYTES ABSOLUTE COUNT (BEAKER) (test 1.09 K/ L 1.48-4.50 ldzo=874) MONOCYTES ABSOLUTE COUNT (BEAKER) (test 0.57 K/ L 0.00-1.30 ybls=066) EOSINOPHILS ABSOLUTE COUNT (BEAKER) (test 0.16 K/ L 0.00-0.50 tmkf=191) BASOPHILS ABSOLUTE COUNT (BEAKER) (test 0.03 K/ L 0.00-0.20 ecce=636) 0.00LACTIC ACID, VENOUS, WHOLE [id number] 16:06:00 Test Item Value Reference Range Comments LACTATE BLOOD VENOUS (2) (BEAKER) (test 1.5 mmol/L 0.5-2.2 cbvc=4783) Effective 07/15/2015: Units/Reference Range ChangeNew: 0.5-2.2 mmol/L Previous: 5 -20 mg/dLBLOOD GAS, [id number] 15:57:00 Test Item Value Reference Range Comments PH VENOUS (BEAKER) (test ozfj=866) 7.39 7.32-7.42 PCO2 VENOUS (BEAKER) (test mnpi=728) 46 mmHg 41-51 PO2 VENOUS (BEAKER) (test csvy=066) 39 mmHg 25-40 O2 SATURATION VENOUS (BEAKER) (test ecfa=530) 74.4 % 40.0-70.0 HCO3 VENOUS (BEAKER) (test csqg=582) 27 mmol/L 21-29 BASE EXCESS VENOUS (BEAKER) (test ejwo=879) 2.0 mmol/L -2.0-3.0 PATIENT TEMPERATURE (BEAKER) (test rjtm=6199) 36.5 C FIO2 (BEAKER) (test pogx=3782) 21.0 % POCT-GLUCOSE [id number] 12:45:00 Test Item Value Reference Range Comments POC-GLUCOSE METER (BEAKER) 201 mg/dL 70-[address] [facility] [address] [facility] (test eczw=6828) [facility] [address] POCT-GLUCOSE [id number] 08:26:00 Test Item Value Reference Range Comments POC-GLUCOSE METER (BEAKER) 181 mg/dL 70-[address] [facility] [address] [facility] (test brvs=6369) [facility] [address] [id number] 07:00:00 Test Item Value Reference Range Comments FERRITIN (BEAKER) (test cpwl=286) 337 ng/mL 5-275 Effective 01/28/2014: Reference Range ChangeNew: Male 5-275 Previous: Male 22-322 Female 5-275 Female [id number] 06:20: 00 Test Item Value Reference Range Comments MAGNESIUM (BEAKER) (test gwcz=779) 1.8 mg/dL 1.6-2.6 BASIC METABOLIC [id number] 06:20:00 Test Item Value Reference Range Comments SODIUM (BEAKER) (test 137 meq/L 136-145 lkjl=563) POTASSIUM (BEAKER) (test 3.8 meq/L 3.5-5.1 lggr=054) CHLORIDE (BEAKER) (test 102 meq/L 98-107 ljzf=243) CO2 (BEAKER) (test 20 meq/L 22-29 dwdc=801) BLOOD UREA NITROGEN 64 mg/dL 7-21 (BEAKER) (test cftx=993) CREATININE (BEAKER) (test 15.09 mg/dL 0.57-1.25 cupz=713) GLUCOSE RANDOM (BEAKER) 176 mg/dL 70-105 (test mbha=111) CALCIUM (BEAKER) (test 7.1 mg/dL 8.4-10.2 unpr=640) EGFR (BEAKER) (test 3 mL/min/1.73 sq m ESTIMATED GFR IS NOT arpu=6119) ACCURATE CREATININE CLEARANCE IN PREDICTING GLOMERULAR FILTRATION RATE. ESTIMATED GFR IS NOT APPLICABLE FOR DIALYSIS PATIENTS. IRON, TIBC, % SAT. (WITHOUT FERRITIN)2016-06-05 06:19:00 Test Item Value Reference Range Comments IRON (BEAKER) (test kwif=792) 59 ug/dL 40-160 TOTAL IRON BINDING CAPACITY (BEAKER) (test 233 ug/dL 250-450 jbcg=849) IRON % SATURATION (2) (BEAKER) (test phey=6601) 25 % 20-55 CBC W/PLT COUNT & AUTO [id number] 06:00:00 Test Item Value Reference Range Comments WHITE BLOOD CELL COUNT (BEAKER) (test dzny=295) 4.0 K/ L 4.0-10.0 RED BLOOD CELL COUNT (BEAKER) (test dinn=200) 3.68 M/ L 4.00-5.00 HEMOGLOBIN (BEAKER) (test ahgq=348) 10.7 GM/DL 12.0-15.0 HEMATOCRIT (BEAKER) (test geru=257) 32.4 % 36.0-45.0 MEAN CORPUSCULAR VOLUME (BEAKER) (test isnj=121) 88.0 fL 82.0-99.0 MEAN CORPUSCULAR HEMOGLOBIN (BEAKER) (test 29.1 pg 27.0-33.0 rsbj=385) MEAN CORPUSCULAR HEMOGLOBIN CONC (BEAKER) (test 33.1 GM/DL 32.0-36.0 ctfh=025) RED CELL DISTRIBUTION WIDTH (BEAKER) (test 19.0 % 10.3-14.2 hjia=677) PLATELET COUNT (BEAKER) (test enmo=340) 194 K/CU MM 150-430 MEAN PLATELET VOLUME (BEAKER) (test ygka=945) 9.2 fL 6.5-10.5 NUCLEATED RED BLOOD CELLS (BEAKER) (test 0 /100 WBC 0-0 hafj=830) NEUTROPHILS RELATIVE PERCENT (BEAKER) (test 64 % pplk=623) LYMPHOCYTES RELATIVE PERCENT (BEAKER) (test 23 % fqvz=392) MONOCYTES RELATIVE PERCENT (BEAKER) (test 8 % eofc=022) EOSINOPHILS RELATIVE PERCENT (BEAKER) (test 3 % olmg=905) BASOPHILS RELATIVE PERCENT (BEAKER) (test 1 % itxz=636) NEUTROPHILS ABSOLUTE COUNT (BEAKER) (test 2.59 K/ L 1.80-8.00 ulun=922) LYMPHOCYTES ABSOLUTE COUNT (BEAKER) (test 0.92 K/ L 1.48-4.50 myrq=755) MONOCYTES ABSOLUTE COUNT (BEAKER) (test 0.34 K/ L 0.00-1.30 awxf=445) EOSINOPHILS ABSOLUTE COUNT (BEAKER) (test 0.13 K/ L 0.00-0.50 jvaf=567) BASOPHILS ABSOLUTE COUNT (BEAKER) (test 0.06 K/ L 0.00-0.20 xisc=108) 0.00POCT-GLUCOSE [id number] 17:21:00 Test Item Value Reference Range Comments POC-GLUCOSE METER (BEAKER) 196 mg/dL 70-110 TESTED AT [address] (test zhsg=0932) [place] [address] POCT-GLUCOSE [id number] 12:54:00 Test Item Value Reference Range Comments POC-GLUCOSE METER (BEAKER) 190 mg/dL 70-110 TESTED AT [address] (test fqit=6691) [place] [address] HEMOGLOBIN AND [id number] 11:25:00 Test Item Value Reference Range Comments HEMOGLOBIN (BEAKER) (test womf=301) 9.1 GM/DL 12.0-15.0 HEMATOCRIT (BEAKER) (test ekrc=834) 27.2 % 36.0-45.0 POCT-GLUCOSE [id number] 07:54:00 Test Item Value Reference Range Comments POC-GLUCOSE METER (BEAKER) 116 mg/dL 70-110 TESTED AT [address] (test fxxl=8626) [place] [address] [id number] 05:00:00 Test Item Value Reference Range Comments PHOSPHORUS (BEAKER) (test nwam=695) 8.0 mg/dL 2.3-4.7 BASIC METABOLIC [id number] 01:32:00 Test Item Value Reference Range Comments SODIUM (BEAKER) (test 133 meq/L 136-145 fqeo=175) POTASSIUM (BEAKER) (test 4.8 meq/L 3.5-5.1 Specimen slightly csti=717) hemolyzed CHLORIDE (BEAKER) (test 95 meq/L 98-107 rxpj=597) CO2 (BEAKER) (test 25 meq/L 22-29 euuy=588) BLOOD UREA NITROGEN 73 mg/dL 7-21 (BEAKER) (test alsu=501) CREATININE (BEAKER) (test 17.24 mg/dL 0.57-1.25 Specimen slightly nsfz=545) hemolyzed GLUCOSE RANDOM (BEAKER) 127 mg/dL 70-105 (test kmyt=413) CALCIUM (BEAKER) (test 7.9 mg/dL 8.4-10.2 lmuc=134) EGFR (BEAKER) (test 3 mL/min/1.73 sq m ESTIMATED GFR IS NOT kfso=1056) ACCURATE CREATININE CLEARANCE IN PREDICTING GLOMERULAR FILTRATION RATE. ESTIMATED GFR IS NOT APPLICABLE FOR DIALYSIS PATIENTS. CBC W/PLT COUNT & AUTO [id number] 01:18:00 Test Item Value Reference Range Comments WHITE BLOOD CELL COUNT (BEAKER) (test yxne=391) 6.0 K/ L 4.0-10.0 RED BLOOD CELL COUNT (BEAKER) (test soul=077) 3.16 M/ L 4.00-5.00 HEMOGLOBIN (BEAKER) (test jfei=907) 9.0 GM/DL 12.0-15.0 HEMATOCRIT (BEAKER) (test uwcm=732) 27.5 % 36.0-45.0 MEAN CORPUSCULAR VOLUME (BEAKER) (test iotl=369) 86.9 fL 82.0-99.0 MEAN CORPUSCULAR HEMOGLOBIN (BEAKER) (test 28.4 pg 27.0-33.0 lftj=029) MEAN CORPUSCULAR HEMOGLOBIN CONC (BEAKER) (test 32.6 GM/DL 32.0-36.0 whyj=335) RED CELL DISTRIBUTION WIDTH (BEAKER) (test 18.9 % 10.3-14.2 qcko=859) PLATELET COUNT (BEAKER) (test racy=272) 177 K/CU MM 150-430 MEAN PLATELET VOLUME (BEAKER) (test uzpg=174) 9.2 fL 6.5-10.5 NUCLEATED RED BLOOD CELLS (BEAKER) (test 0 /100 WBC 0-0 iips=207) NEUTROPHILS RELATIVE PERCENT (BEAKER) (test 72 % tctw=557) LYMPHOCYTES RELATIVE PERCENT (BEAKER) (test 18 % tyfy=684) MONOCYTES RELATIVE PERCENT (BEAKER) (test 9 % vivq=880) EOSINOPHILS RELATIVE PERCENT (BEAKER) (test 0 % vewd=077) BASOPHILS RELATIVE PERCENT (BEAKER) (test 0 % bhdn=779) NEUTROPHILS ABSOLUTE COUNT (BEAKER) (test 4.29 K/ L 1.80-8.00 caka=510) LYMPHOCYTES ABSOLUTE COUNT (BEAKER) (test 1.10 K/ L 1.48-4.50 sblg=022) MONOCYTES ABSOLUTE COUNT (BEAKER) (test 0.54 K/ L 0.00-1.30 kjxb=202) EOSINOPHILS ABSOLUTE COUNT (BEAKER) (test 0.02 K/ L 0.00-0.50 blyf=363) BASOPHILS ABSOLUTE COUNT (BEAKER) (test 0.03 K/ L 0.00-0.20 hqlb=330) 0.00POCT-GLUCOSE [id number] 22:11:00 Test Item Value Reference Range Comments POC-GLUCOSE METER (BEAKER) 200 mg/dL 70-110 TESTED AT [address] (test wrgr=4826) [place] [id number] POCT-GLUCOSE [id number] 18:17:00 Test Item Value Reference Range Comments POC-GLUCOSE METER (BEAKER) 206 mg/dL 70-110 TESTED AT [address] (test saqh=5420) [place] [address] [id number] 17:39:00 Test Item Value Reference Range Comments POTASSIUM (BEAKER) (test tbqd=547) 4.7 meq/L 3.5-5.1 BASIC METABOLIC [id number] 11:55:00 Test Item Value Reference Range Comments SODIUM (BEAKER) (test 138 meq/L 136-145 hlko=803) POTASSIUM (BEAKER) (test 4.4 meq/L 3.5-5.1 bkkg=431) CHLORIDE (BEAKER) (test 96 meq/L 98-107 utjt=796) CO2 (BEAKER) (test 27 meq/L 22-29 vgzd=234) BLOOD UREA NITROGEN 68 mg/dL 7-21 (BEAKER) (test ilci=930) CREATININE (BEAKER) (test 16.75 mg/dL 0.57-1.25 opkj=203) GLUCOSE RANDOM (BEAKER) 139 mg/dL 70-105 (test oqtj=887) CALCIUM (BEAKER) (test 8.5 mg/dL 8.4-10.2 krxy=799) EGFR (BEAKER) (test 3 mL/min/1.73 sq m ESTIMATED GFR IS NOT ygrj=1353) ACCURATE CREATININE CLEARANCE IN PREDICTING GLOMERULAR FILTRATION RATE. ESTIMATED GFR IS NOT APPLICABLE FOR DIALYSIS PATIENTS. [id number] 11:42:00 Test Item Value Reference Range Comments PROTIME (BEAKER) (test ctxi=490) 14.6 seconds 11.7-14.7 INR (BEAKER) (test tjkw=996) 1.2 <=5.9 PARTIAL THROMBOPLASTIN TIME (BEAKER) (test 33.8 seconds 22.5-36.0 jjiw=312) RECOMMENDED COUMADIN/WARFARIN INR THERAPY RANGESSTANDARD DOSE: 2.0 - 3.0 Includes: PROPHYLAXIS forvenous thrombosis, systemic embolization; TREATMENT for venous thrombosis and/or pulmonary embolus.HIGH RISK: Target INR is 2.5-3.5 for patients with mechanical heart valves.CBC W/PLT COUNT & AUTO [id number] 11:39:00 Test Item Value Reference Range Comments WHITE BLOOD CELL COUNT (BEAKER) (test akwn=884) 5.9 K/ L 4.0-10.0 RED BLOOD CELL COUNT (BEAKER) (test fosz=211) 3.66 M/ L 4.00-5.00 HEMOGLOBIN (BEAKER) (test lmor=609) 10.3 GM/DL 12.0-15.0 HEMATOCRIT (BEAKER) (test ogjo=373) 31.9 % 36.0-45.0 MEAN CORPUSCULAR VOLUME (BEAKER) (test wjmm=089) 87.1 fL 82.0-99.0 MEAN CORPUSCULAR HEMOGLOBIN (BEAKER) (test 28.2 pg 27.0-33.0 vfni=216) MEAN CORPUSCULAR HEMOGLOBIN CONC (BEAKER) (test 32.4 GM/DL 32.0-36.0 tizp=996) RED CELL DISTRIBUTION WIDTH (BEAKER) (test 17.9 % 10.3-14.2 tgpw=010) PLATELET COUNT (BEAKER) (test xhlf=625) 192 K/CU MM 150-430 MEAN PLATELET VOLUME (BEAKER) (test zxff=805) 8.8 fL 6.5-10.5 NUCLEATED RED BLOOD CELLS (BEAKER) (test 0 /100 WBC 0-0 fvuw=923) NEUTROPHILS RELATIVE PERCENT (BEAKER) (test 74 % rowc=914) LYMPHOCYTES RELATIVE PERCENT (BEAKER) (test 16 % smwx=669) MONOCYTES RELATIVE PERCENT (BEAKER) (test 7 % xzqr=088) EOSINOPHILS RELATIVE PERCENT (BEAKER) (test 2 % vbpt=865) BASOPHILS RELATIVE PERCENT (BEAKER) (test 1 % arsg=072) NEUTROPHILS ABSOLUTE COUNT (BEAKER) (test 4.35 K/ L 1.80-8.00 hctt=620) LYMPHOCYTES ABSOLUTE COUNT (BEAKER) (test 0.94 K/ L 1.48-4.50 trxo=886) MONOCYTES ABSOLUTE COUNT (BEAKER) (test 0.39 K/ L 0.00-1.30 slxd=887) EOSINOPHILS ABSOLUTE COUNT (BEAKER) (test 0.15 K/ L 0.00-0.50 qwxi=228) BASOPHILS ABSOLUTE COUNT (BEAKER) (test 0.05 K/ L 0.00-0.20 nblz=938) 0.00
[2017-05-29] MEDS ORDERED: NITROGLYCERIN 1 GM PKT TD ONE (12:45)
--- NOTE | 2017-05-29 13:00 | RAD REPORT ---
EXAM DESCRIPTION: RAD - Chest Single View - 05/29/2017 12:55 pm CLINICAL HISTORY: Shortness of breath COMPARISON: 04/18/2017 04/17/2017, 03/08/2017 FINDINGS: Portable technique limits examination quality. Moderate bilateral pulmonary opacities are present compatible with pulmonary edema. Moderate bilatera l pleural effusions, greater on the left. The heart is likely enlarged. No displaced fractures.Right- sided dialysis catheter is in place. IMPRESSION: Moderate CHF/ volume overload pattern.
[2017-05-29 13:01] LABS: Absolute Lymphocytes (CBC) 0.9 K/uL (0.7-4.9); Absolute Monocytes 0.5 K/uL (0.1-1.3); Basophils % 1.1 % (0-1.3); Hematocrit 38.8 % (36.0-45.0); Lymphocytes % 13.7 % (15.3-44.8); MCH 27.5 pg (27.0-35.0); MCV 86.4 fL (80-100); MPV 8.2 fL (7.6-11.3); Monocytes % 6.8 % (3.3-12.3)
[2017-05-29 13:05] LABS: Protime INR 1.06
[2017-05-29 13:14] LABS: Albumin 4.2 g/dL (3.2-5.5); Bilirubin Direct 0.1 mg/dL (0-0.2); Bilirubin Total 0.7 mg/dL (0.3-1.2); Protein, Total 10.6 g/dL (6.0-8.3)
[2017-05-29 13:23] LABS: CKMB Creatine Kinase MB 9.1 ng/ml (0.3-4.0); Magnesium 2.3 mg/dL (1.8-2.5)
[2017-05-29 13:24] LABS: Potassium 5.7 mEq/L (3.6-5.0)
[2017-05-29] MEDS ORDERED: ALBUTEROL 2.5 MG/3 ML NEB SOL NEB PRN (13:48)
[2017-05-29] MEDS ORDERED: ONDANSETRON 4 MG/2 ML VIAL IV PRN (13:48)
[2017-05-29] MEDS ORDERED: MORPHINE 2 MG/ML SYR IV PRN (13:48)
[2017-05-29] MEDS ORDERED: IPRATROPIUM BROM 0.5MG/2.5ML NEB PRN (13:48)
[2017-05-29] MEDS ORDERED: NICARDIPINE HCL 25 MG in NA CHLORIDE 0.9% 240 ML IV PRN (13:49)
[2017-05-29] MEDS ORDERED: FUROSEMIDE 100 MG/10 ML VIAL IV ONE (13:49)
[2017-05-29] MEDS ORDERED: MORPHINE 4 MG/ML SYR ONE (13:49)
[2017-05-29] MEDS ORDERED: ONDANSETRON 4 MG/2 ML VIAL ONE (13:50)
--- NOTE | 2017-05-29 13:54 | EDPHYS ---
Physician Documentation [facility] Name: Yamile Brooke Age: 47 yrs Sex: Female : 1970 Arrival Date: 05/29/2017 Time: 11:41 Bed 7 Private MD: ED Physician Cesar Landrum HPI: 05/29 12:03 This 47 yrs old Black Female presents to ER via EMS with complaints of Chest Pain, heather Shortness Of Breath. 12:03 The patient or guardian reports chest pain that is located primarily in the anterior heather chest wall. 12:03 The patient has shortness of breath at rest, with light activity. Onset: The heather symptoms/episode began/occurred 1 day(s) ago. Duration: The symptoms are continuous, and are steadily getting worse. Onset: 1 day(s) ago. The pain does not radiate. Associated signs and symptoms: Pertinent positives: chest pain, non-productive cough. Severity of symptoms: At their worst the symptoms were mild moderate in the emergency department the symptoms are unchanged. [employer]: 11:46 LMP N/A - Irregular menses em Historical: - Allergies: 11:45 tramadol; em - Home Meds: 11:45 aspirin 81 mg Oral chew 1 tab once daily [Active]; calcitriol 0.25 mcg Oral cap 1 cap em once daily [Active]; carvedilol 25 mg Oral tab 1.5 tab 2 times per day [Active]; Diovan 160 mg Oral tab 1 tab once daily [Active]; clonazepam 0.125 mg Oral TbDL [Active]; DIALYVITE 800 0.8 mg Oral tab daily [Active]; hydralazine 50 mg Oral tab three times a day [Active]; losartan Oral 2 times per day [Active]; Clonidine Oral [Active]; meclizine 12.5 mg Oral tab TID prn [Active]; melatonin 3 mg Oral tab [Active]; Clarence 5-325 mg Oral tab [Active]; gabapentin 100 mg Oral cap [Active]; Norvasc 5 mg Oral tab 1 tab [Active]; Plavix 75 mg Oral tab 1 tab once daily [Active]; warfarin 7.5 mg Oral tab once daily [Active]; - PMHx: 11:45 CHF; Diabetes - IDDM; ESRD; Hyperlipidemia; Hypertension; PERITONEAL DIALYSIS; right em arm blood clots; right eye blindness; ADD/ADHD; Anemia; - Immunization history:: Adult Immunizations up to date. - Social history:: Smoking status: Patient/guardian denies using tobacco. - Family history:: not pertinent. - Hospitalizations: : No recent hospitalization is reported. ROS: 12:03 Constitutional: Negative for fever, chills, and weight loss, Eyes: Negative for injury, heather pain, redness, and discharge, ENT: Negative for injury, pain, and discharge, Neck: Negative for injury, pain, and swelling, Cardiovascular: Negative for chest pain, palpitations, and edema, Abdomen/GI: Negative for abdominal pain, nausea, vomiting, diarrhea, and constipation, Back: Negative for injury and pain, : Negative for injury, bleeding, discharge, and swelling, MS/Extremity: Negative for injury and deformity, Skin: Negative for injury, rash, and discoloration, Neuro: Negative for headache, weakness, numbness, tingling, and seizure, Psych: Negative for depression, anxiety, suicide ideation, homicidal ideation, and hallucinations, Allergy/Immunology: Negative for hives, rash, and allergies, Endocrine: Negative for neck swelling, polydipsia, polyuria, polyphagia, and marked weight changes, Hematologic/Lymphatic: Negative for swollen nodes, abnormal bleeding, and unusual bruising. 12:03 Respiratory: Positive for cough, with no reported sputum, shortness of breath, at rest. Exam: 12:03 Constitutional: This is a well developed, well nourished patient who is awake, alert, heather and in no acute distress. Head/Face: Normocephalic, atraumatic. Eyes: Pupils equal round and reactive to light, extra-ocular motions intact. Lids and lashes normal. Conjunctiva and sclera are non-icteric and not injected. Cornea within normal limits. Periorbital areas with no swelling, redness, or edema. ENT: Nares patent. No nasal discharge, no septal abnormalities noted. Tympanic membranes are normal and external auditory canals are clear. Oropharynx with no redness, swelling, or masses, exudates, or evidence of obstruction, uvula midline. Mucous membranes moist. Neck: Trachea midline, no thyromegaly or masses palpated, and no cervical lymphadenopathy. Supple, full range of motion without nuchal rigidity, or vertebral point tenderness. No Meningismus. Chest/axilla: Normal chest wall appearance and motion. Nontender with no deformity. No lesions are appreciated. Cardiovascular: Regular rate and rhythm with a normal S1 and S2. No gallops, murmurs, or rubs. Normal PMI, no JVD. No pulse deficits. Abdomen/GI: Soft, non-tender, with normal bowel sounds. No distension or tympany. No guarding or rebound. No evidence of tenderness throughout. Back: No spinal tenderness. No costovertebral tenderness. Full range of motion. Female : Normal external genitalia. Skin: Warm, dry with normal turgor. Normal color with no rashes, no lesions, and no evidence of cellulitis. Neuro: Awake and alert, GCS 15, oriented to person, place, time, and situation. Cranial nerves II-XII grossly intact. Motor strength 5/5 in all extremities. Sensory grossly intact. Cerebellar exam normal. Normal gait. Psych: Awake, alert, with orientation to person, place and time. Behavior, mood, and affect are within normal limits. 12:03 Respiratory: mild respiratory distress is noted, Respirations: normal, Breath sounds: rales, that are mild, decreased breath sounds. 12:03 Musculoskeletal/extremity: ROM: intact in all extremities, full active range of motion, full passive range of motion, Circulation is intact in all extremities. Sensation intact. Compartment Syndrome exam of affected extremity: is normal. DVT Exam: no pain, no tenderness, negative Homans' sign noted on exam, no appreciated bluish discoloration, no erythema, no increased warmth, swelling. Vital Signs: 11:46 BP 217 / 130; Pulse 115; Resp 22; Temp 97.9(O); Pulse Ox 100% on R/A; Weight 70.31 kg; em Height 5 ft. 8 in. (172.72 cm); Pain 10/10; 14:00 BP 227 / 144; Pulse 118; Resp 20; Pulse Ox 19% on 50% BiPAP; sg 14:18 BP 189 / 108; Pulse 108; Resp 22 S; Pulse Ox 100% on 50% BiPAP; sg 14:36 BP 169 / 121; Pulse 102 MON; Resp 22 S; Pulse Ox 100% on 50% BiPAP; sg 14:59 BP 152 / 107; Pulse 92; Resp 19; Pulse Ox 99% on 50% BiPAP; iw 15:20 BP 149 / 97; Pulse 96; Resp 30; Pulse Ox 100% ; ms 15:45 BP 155 / 100; Pulse 98; Resp 20; Pulse Ox 100% on 50% BiPAP; hb 16:00 BP 159 / 91; Pulse 91; Resp 20; Pulse Ox 100% on 50% BiPAP; hb 11:46 Body Mass Index 23.57 (70.31 kg, 172.72 cm) em Procedures: 13:31 Peripheral line: by aseptic technique a peripheral line was placed in the right [facility] external jugular vein. MDM: 11:42 Patient medically screened. [facility] 12:05 Data reviewed: vital signs, nurses notes, lab test result(s), EKG, radiologic studies, [facility] plain films. 05/29 12:02 Order name: Basic Metabolic Panel [facility] 05/29 12:02 Order name: BNP [facility] 05/29 12:02 Order name: CBC with Diff [facility] 05/29 12:02 Order name: Ckmb [facility] 05/29 12:02 Order name: CPK [facility] 05/29 12:02 Order name: LFT's [facility] 05/29 12:02 Order name: Magnesium [facility] 05/29 12:02 Order name: PT-INR [facility] 05/29 12:02 Order name: Ptt, Activated [facility] 05/29 12:02 Order name: Troponin (emerg Dept Use Only) [facility] 05/29 13:02 Order name: CBC with Automated Diff; Complete Time: 13:28 [facility] 05/29 13:06 Order name: Protime (+INR); Complete Time: 13:28 [facility] 05/29 13:06 Order name: PTT, Activated Partial Thromb; Complete Time: 13:28 [facility] 05/29 13:08 Order name: Basic Metabolic Panel; Complete Time: 13:28 [facility] 05/29 12:02 Order name: XRAY Chest (1 view) [facility] 05/29 13:02 Order name: RAD; Complete Time: 13:28 [facility] 05/29 13:15 Order name: Troponin (Emerg Dept Use Only); Complete Time: 13:28 [facility] 05/29 13:17 Order name: BNP B-Type Natriuretic Peptide; Complete Time: 13:28 [facility] 05/29 13:25 Order name: Liver (Hepatic) Function; Complete Time: 13:28 [facility] 05/29 13:25 Order name: Creatine Phosphokinase; Complete Time: 13:28 [facility] 05/29 13:25 Order name: CKMB Creatine Kinase MB; Complete Time: 13:28 [facility] 05/29 13:25 Order name: Magnesium; Complete Time: 13:28 [facility] 05/29 13:32 Order name: BIPAP [facility] 05/29 19:06 Order name: Troponin I [facility] 05/29 20:34 Order name: Urine Dipstick--Ancillary (enter results) [place] 05/29 20:51 Order name: Urine Dipstick-Ancillary [facility] 05/29 12:02 Order name: EKG; Complete Time: 12:03 [facility] 05/29 12:02 Order name: Cardiac monitoring; Complete Time: 13:50 [facility] 05/29 12:02 Order name: EKG - Nurse/Tech; Complete Time: 13:51 [facility] 05/29 12:02 Order name: IV Saline Lock; Complete Time: 13:51 [facility] 05/29 12:02 Order name: Labs collected and sent; Complete Time: 13:51 [facility] 05/29 12:02 Order name: O2 Per Protocol; Complete Time: 13:51 [facility] 05/29 12:02 Order name: O2 Sat Monitoring; Complete Time: 13:51 [facility] 05/29 12:02 Order name: Urine Dipstick-Ancillary (obtain specimen); Complete Time: 22:39 [facility] Administered Medications: 12:31 Drug: Nitro-Bid Ointment 2 % 1 inches Route: Transdermal; Site: anterior chest wall; em 22:38 Follow up: Response: No adverse reaction ao 14:10 Drug: Cardene 5 mg/hr Route: IV; Rate: per protocol; Site: right jugular; sg 22:37 Follow up: IV Status: Infusion continued upon admission ao 15:50 Drug: Lasix 100 mg Route: IVP; Site: right jugular; sg 22:38 Follow up: Response: No adverse reaction ao 19:11 Not Given (Patient Refused): morphine 2 mg IVP once sg 19:12 Not Given (Patient Refused): morphine 2 mg IVP once sg 19:12 Not Given (Patient Refused): Zofran 4 mg IVP once; over 2 minutes sg 20:39 Drug: Kayexalate 30 grams Route: PO; ao 22:37 Follow up: Response: No adverse reaction ao Disposition: 05/29/17 13:53 Hospitalization ordered by Vasile Schofield for Inpatient Admission. Preliminary diagnosis are Dyspnea, Pleural effusion in conditions classified elsewhere, End stage renal disease, Hyperkalemia, Essential (primary) hypertension - emergency. - Bed requested for Intensive Care Unit. - Status is Inpatient Admission. ao - Condition is Fair. - Problem is new. - Symptoms have improved. UTI on Admission? No Signatures: Dispatcher [employer] EDMS Deidre Decker Martha, RN RN Ted Recinos RN RN Cesar Bejarano MD MD cha Munoz, Edgar, FIRE[employer]/CONTAINMENT WORKER FI[employer]CONTAINMENT WORKER em Gerber Scott RN RN ao
--- NOTE | 2017-05-29 13:54 | ER ---
Nurse's Notes [facility] Name: Yamile Brooke Age: 47 yrs Sex: Female : 1970 Arrival Date: 05/29/2017 Time: 11:41 Bed 7 Private MD: Diagnosis: Dyspnea;Pleural effusion in conditions classified elsewhere;End stage renal disease;Hyperkalemia;Essential (primary) hypertension-emergency Presentation: 05/29 11:41 Presenting complaint: EMS states: c/o substernal chest pain and SOB that started this em morning, was 80% on RA on scene , placed on 3L via NC came up to 93%, supposed to have dialysis today. BP on scene 207/141 did not take meds today. Transition of care: patient was not received from another setting of care. Onset of symptoms was May 29, 2017. Care prior to arrival: None. 11:41 Method Of Arrival: EMS: [facility] em 11:42 Acuity: ARIE 2 iw Triage Assessment: 11:46 General: Appears uncomfortable, slender, Behavior is calm, cooperative. Pain: Complains em of pain in mid-sternal area Pain currently is 10 out of 10 on a pain scale. 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: 11:46 LMP N/A - Irregular menses em Historical: - Allergies: 11:45 tramadol; em - Home Meds: 11:45 aspirin 81 mg Oral chew 1 tab once daily [Active]; calcitriol 0.25 mcg Oral cap 1 cap em once daily [Active]; carvedilol 25 mg Oral tab 1.5 tab 2 times per day [Active]; Diovan 160 mg Oral tab 1 tab once daily [Active]; clonazepam 0.125 mg Oral TbDL [Active]; DIALYVITE 800 0.8 mg Oral tab daily [Active]; hydralazine 50 mg Oral tab three times a day [Active]; losartan Oral 2 times per day [Active]; Clonidine Oral [Active]; meclizine 12.5 mg Oral tab TID prn [Active]; melatonin 3 mg Oral tab [Active]; [place] 5-325 mg Oral tab [Active]; gabapentin 100 mg Oral cap [Active]; Norvasc 5 mg Oral tab 1 tab [Active]; Plavix 75 mg Oral tab 1 tab once daily [Active]; warfarin 7.5 mg Oral tab once daily [Active]; - PMHx: 11:45 CHF; Diabetes - IDDM; ESRD; Hyperlipidemia; Hypertension; PERITONEAL DIALYSIS; right em arm blood clots; right eye blindness; ADD/ADHD; Anemia; - Immunization history:: Adult Immunizations up to date. - Social history:: Smoking status: Patient/guardian denies using tobacco. - Family history:: not pertinent. - Hospitalizations: : No recent hospitalization is reported. Screenin:49 Abuse screen: Denies threats or abuse. Nutritional screening: No deficits noted. em Tuberculosis screening: No symptoms or risk factors identified. Fall Risk None identified. Assessment: 11:50 General: Appears in no apparent distress. uncomfortable, slender, Behavior is calm, em cooperative. Pain: Complains of pain in mid-sternal area Pain currently is 10 out of 10 on a pain scale. Quality of pain is described as dull. Neuro: Level of Consciousness is awake, alert, obeys commands, Oriented to person, place, time, situation, Appropriate for age. Cardiovascular: Denies chest pain, diaphoresis, nausea, palpitations, vomiting, Capillary refill < 3 seconds Patient's skin is warm and dry. Respiratory: Airway is patent Respiratory effort is even, labored, Respiratory pattern is regular, symmetrical, Breath sounds are diminished bilaterally. Onset: The symptoms/episode began/occurred yesterday, the patient has mild shortness of breath. GI: Abdomen is flat. : No signs and/or symptoms were reported regarding the genitourinary system. EENT: No signs and/or symptoms were reported regarding the EENT system. Derm: Skin is intact, Skin is pink, warm \T\ dry. Musculoskeletal: No signs and/or symptoms reported regarding the musculoskeletal system. 12:34 Reassessment: pt complaint of difficulty breathing, A\T\O 4, respirations even and em labored, RR 28 skin warm, pink and dry, Dr. Landrum, notified Patient states symptoms have improved. 13:42 Reassessment: c/o SOB, Dr. Landrum at bedside, placed on a nonrebreather at 15; em ordered BIPAP, moved to ER7 to be started on a Cardene medication BP 232/143 HR 117, report given to MILA Noel Patient states symptoms have not improved. 14:10 Reassessment: at bedside at this time, coaching pt to remain on BiPaP at sg this time, pt resp effort labored, tachypnea noted, pt instructed to slow her breathing down, educated on use of BiPap, pt stated understanding, pt responding to BiPap at this time. 14:15 Reassessment: Kayexelate PO medication ordered,pt not in a condition to safely drink sg medications at this time, notified, medication remains prepared until status changes. Vital Signs: 11:46 BP 217 / 130; Pulse 115; Resp 22; Temp 97.9(O); Pulse Ox 100% on R/A; Weight 70.31 kg; em Height 5 ft. 8 in. (172.72 cm); Pain 10/10; 14:00 BP 227 / 144; Pulse 118; Resp 20; Pulse Ox 19% on 50% BiPAP; sg 14:18 BP 189 / 108; Pulse 108; Resp 22 S; Pulse Ox 100% on 50% BiPAP; sg 14:36 BP 169 / 121; Pulse 102 MON; Resp 22 S; Pulse Ox 100% on 50% BiPAP; sg 14:59 BP 152 / 107; Pulse 92; Resp 19; Pulse Ox 99% on 50% BiPAP; iw 15:20 BP 149 / 97; Pulse 96; Resp 30; Pulse Ox 100% ; ms 15:45 BP 155 / 100; Pulse 98; Resp 20; Pulse Ox 100% on 50% BiPAP; hb 16:00 BP 159 / 91; Pulse 91; Resp 20; Pulse Ox 100% on 50% BiPAP; hb 11:46 Body Mass Index 23.57 (70.31 kg, 172.72 cm) em ED Course: 11:41 Patient arrived in ED. em 11:41 Cesar Landrum MD is Attending Physician. heather 11:46 Arm band placed on. em 11:49 Patient has correct armband on for positive identification. Bed in low position. Call em light in reach. Side rails up X2. 11:54 EKG done, by underwriting technician. reviewed by Cesar Landrum MD. at1 11:59 Triage completed. iw 12:07 Raffi Cash LVN is Primary Nurse. em 12:54 X-ray completed. Portable x-ray completed in exam room. Patient tolerated procedure ag1 well. 13:41 Vasile Schofield MD is Hospitalizing Provider. heather 21:18 No provider procedures requiring assistance completed. Patient admitted, IV remains in ao place. Administered Medications: 12:31 Drug: Nitro-Bid Ointment 2 % 1 inches Route: Transdermal; Site: anterior chest wall; em 22:38 Follow up: Response: No adverse reaction ao 14:10 Drug: Cardene 5 mg/hr Route: IV; Rate: per protocol; Site: right jugular; sg 22:37 Follow up: IV Status: Infusion continued upon admission ao 15:50 Drug: Lasix 100 mg Route: IVP; Site: right jugular; sg 22:38 Follow up: Response: No adverse reaction ao 19:11 Not Given (Patient Refused): morphine 2 mg IVP once sg 19:12 Not Given (Patient Refused): morphine 2 mg IVP once sg 19:12 Not Given (Patient Refused): Zofran 4 mg IVP once; over 2 minutes sg 20:39 Drug: Kayexalate 30 grams Route: PO; ao 22:37 Follow up: Response: No adverse reaction ao Outcome: 13:53 Decision to Hospitalize by Provider. heather 19:20 Admitted to ER Hold. Please see [facility] for further documentation. sg 19:20 Condition: unchanged 19:20 Instructed on the need for admit, ER holding pattern 23:46 Patient left the ED. ao Signatures: Ted Farley, RN Cesar Evans MD MD cha Munoz, Edgar, ANIMAL ASSISTANT ANIMAL ASSISTANT em Ania Gonsalves, Lexy Luevano RN, msales, Alana, shipyard painter EKG Tat1 Chyna Higuera ag1 Gerber Scott RN RN ao Baxter, Heather RN RN hb Corrections: (The following items were deleted from the chart) 11:49 11:41 Presenting complaint: EMS states: c/o substernal chest pain and SOB that started em this morning, was 80% on RA on scene , placed on 3L via NC came up to 93%, supposed to have dialysis today em 13:48 11:50 Respiratory: Airway is patent Respiratory effort is even, unlabored, Respiratory em pattern is regular, symmetrical, em 16:13 15:45 BP 155 / 100; Pulse 98bpm; Resp 20bpm; Pulse Ox 100% RA; hb hb
[2017-05-29] MEDS: HYDRALAZINE HCL 25 MG TABLET PO SCH ×2 (14:00→21:00)
[2017-05-29] MEDS ORDERED: Nicardipine/NS 25 MG/250 ML KIT IV ONE ×2 (14:18→20:05)
--- NOTE | 2017-05-29 15:36 | EKG ---
Test Date: 2017-05-29 Test Time: 11:49:19 Picking Supervisor: NATHALIA MEASUREMENT RESULTS: Intervals: Rate: 110 [place]: 134 QRSD: 94 QT: 350 QTc: 473 [place]: P: 86 [place]: 134 QRS: -12 T: 138 INTERPRETIVE STATEMENTS: Sinus tachycardia Anterior infarct, age undetermined T wave abnormality, consider lateral ischemia Abnormal ECG Compared to ECG 04/18/2017 08:20:14 Possible ischemia now present Sinus rhythm no longer present Myocardial infarct finding still present T-wave abnormality still present Electronically Signed On 05-29-17 15:35:59 CDT by Hany Lo
[2017-05-29] MEDS: FUROSEMIDE 20 MG/ 2ML VIAL IV SCH (17:00)
[2017-05-29] MEDS ORDERED: PNEUMOCOCCAL VACCINE 0.5 ML IMVAC ONE (18:00)
[2017-05-29] MEDS ORDERED: SOD POLYSTYREN SUL 15 GM/60 ML UCUP ONE (20:49)
[2017-05-29 20:51] LABS: Urine Blood TRACE (NEG); Urine Glucose 2+ (NEG); Urine Protein NEGATIVE (NEG); Urine Specific Gravity 1.015 (1.005-1.030)
--- NOTE | 2017-05-29 21:18 | HP ---
Date of Admission: 05/29/2017 Chief Complaint: Shortness of breath. History Of Present Illness: Ms. Brooke is a pleasant, 47-year-old female patient with multiple com orbidities including end-stage renal disease, on hemodialysis. Goes for dialysis on Monday, , Monday, and reported that her last dialysis was on Monday, and this was her full session of dialys is like the way normally she gets. She was doing fine until all of a sudden today, she woke up with complaints of shortness of breath. Presented to emergency room. After she was evaluated, she was ad mitted to the hospital to Intensive Care Unit. The patient came in any respiratory distress. Her bl ood pressure was extremely elevated when she came in. Lasix 100 mg nitroglycerin paste was given, an d then subsequently she was started on Cardene drip that has actually helped to bring her blood press ure down under better control. It is still elevated, but much better than what it was when she first came in. Denies any chest pain. No fever. No expectoration. She reports taking her medications r egularly as prescribed. Allergies: TO TRAMADOL. Medications: List reviewed. Review of Systems: Respiratory: As mentioned above. All other systems reviewed and negative. Past Medical History: Significant for hypertension, end-stage renal disease, on hemodialysis, chroni c systolic congestive heart failure with ejection fraction around 35-39% according to last echocardio gram from October 2016. Past medical history also significant for bilateral pleural effusion, diabete s mellitus, hyperlipidemia, coronary artery disease, DVT of right arm, history of peritonitis while s he was on peritoneal dialysis, and anemia due to chronic kidney disease. Past Surgical History: Significant for hysterectomy, coronary artery angioplasty with stent placemen t in June 2016. Family History: Significant for hypertension, diabetes, coronary artery disease, and her mother had pulmonary embolism at age 34, father has atrial fibrillation. Social History: Negative for smoking and alcohol use. Physical Examination: Vital Signs: When she first came into emergency room, blood pressure 217/130, pulse 115, respiratory rate 22, temperature 97.9, pulse ox 100%. Weight 70.31 kg, height 5 feet 8 inches. General: The patient is sleeping, arousable, on BiPAP, in mild respiratory distress, but feeling muc h better than before she arrived to the emergency room. HEENT: Head atraumatic, normocephalic. Conjunctivae nonerythematous. Sclerae white. Mouth, no thr ush or edema noted. Ears/Nose, no mass, lesion, discharge noted. Neck: Supple. No JVD, lymph nodes, bruit, thyromegaly noted. Lungs: Presence of diminished air entry in both lower lung cervantes. Heart: Normal heart sounds, no murmur or gallop. Abdomen: Soft, bowel sounds normal. No guarding, rigidity, tenderness, mass, hepatosplenomegaly, dis tention, or bruit noted. Extremities: No leg edema. No calf tenderness. Skin: No rash, ulcer, cellulitis. Lymphatics: No lymph node enlargement in neck, supraclavicular, infraclavicular region. Neuro: No focal neurological deficit. Chest: Unremarkable. External Genitalia: Deferred. Rectal: Deferred. Laboratory Data: Chest x-ray shows moderate CHF/volume overload pattern, moderate bilateral pleural effusion greater on the left. White count 6.8, hemoglobin 12.4, platelets 201. Sodium 134, potassiu m 5.7, chloride 98, bicarb 22, BUN 73, creatinine 9.35, glucose 97. Calcium 10.5, magnesium 2.3, SGO T 47, total bilirubin 0.7. CPK 146, MB 9.1, troponin 0.14. BNP 1304. Impression: 1.Congestive heart failure, chronic, systolic, with acute exacerbation. 2.Bilateral pleural effusion. 3.End-stage renal disease, on hemodialysis. 4.Hypertension, uncontrolled. 5.Coronary artery disease. 6.Hyperkalemia. 7.Diabetes mellitus. 8.Hyperlipidemia. Plan: We will go ahead and admit patient to Intensive Care Unit for further evaluation and managemen t of this problem. The patient is appropriate for inpatient and is expected to spend 2 midnights in hospital. We will consult the patient's programming intern for dialysis needs and ER physician has already contacted programming intern, and the patient will receive dialysis today. We will continue BiPAP. We wi ll consult Dr. Jurado from Pulmonary. Home medications will be continued per order. We will lg nue Cardene drip for control of blood pressure. We will repeat echocardiogram since last one was don e in October 2016. DVT prophylaxis will be given using heparin per order, and I will see her tomorrow for followup. For diabetes she does not take any medications. We will manage it with sliding scale insulin. Plan of treatment discussed with her. VINCENT/SUDHA Voice ID: [id number]
[2017-05-29] MEDS ORDERED: MANNITOL 25% 12.5 GM/50 ML VIAL IV PRN (21:21)
[2017-05-29] MEDS ORDERED: NA CHLORIDE 0.9% 1,000 ML IV PRN (21:21)
--- NOTE | 2017-05-29 21:34 | P.CNS ---
Date of Consult: 05/29/17 Reason for Consult: ESRD Requesting Physician: Vasile Schofield Chief Complaint: Dyspnea History of Present Illness: 47 yo BF DM & CKD presented to the ER with 24 hours of severe, progressive dyspnea in the setting of CHF. 12:03 This 47 yrs old Black Female presents to ER via EMS with complaints of Chest Pain, heather Shortness Of Breath. 12:03 The patient or guardian reports chest pain that is located primarily in the anterior heather chest wall. 12:03 The patient has shortness of breath at rest, with light activity. Onset: The heather symptoms/episode began/occurred 1 day(s) ago. Duration: The symptoms are continuous, and are steadily getting worse. Onset: 1 day(s) ago. The pain does not radiate. Associated signs and symptoms: Pertinent positives: chest pain, non- productive cough. Severity of symptoms: At their worst the symptoms were mild moderate in the emergency department the symptoms are unchanged. History Of Present Illness: Ms. Brooke is a pleasant, 47-year-old female patient with multiple comorbidities including end-stage renal disease, on hemodialysis. Goes for dialysis on Monday, Monday, Monday, and reported that her last dialysis was on Monday, and this was her full session of dialysis like the way normally she gets. She was doing fine until all of a sudden today , she woke up with complaints of shortness of breath. Presented to emergency room. After she was evaluated, she was admitted to the hospital to Intensive Care Unit. The patient came in any respiratory distress. Her blood pressure was extremely elevated when she came in. Lasix 100 mg nitroglycerin paste was given, and then subsequently she was started on Cardene drip that has actually helped to bring her blood pressure down under better control. It is still elevated, but much better than what it was when she first came in. Denies any chest pain. No fever. No expectoration. Allergies tramadol Allergy (Mild, Verified 12/20/16 09:53) Unknown Home medications list reviewed: Yes Home Medications: Carvedilol 1.5 tab PO BID 10/12/16 Valsartan 160 mg PO DAILY 10/12/16 Amlodipine Besylate 1 tab PO DAILY 03/09/17 Clopidogrel Bisulfate [Plavix*] 1 tab PO DAILY 03/09/17 Gabapentin [Neurontin] 100 mg PO BID 03/09/17 Meclizine HCl [Antivert] 12.5 mg PO TID PRN 03/09/17 Aspirin [Aspirin EC 81 MG] 81 mg PO DAILY 04/17/17 Calcitriol [Rocaltrol] 0.25 mcg PO DAILY 04/17/17 Hydralazine HCl 50 mg PO TID 04/17/17 Vit B Comp&C/Folic Acid/Vit D3 [Dialyvite 800 Plus D Wafer] 1 tab PO DAILY 04/17 - Past Medical/Surgical History Diabetic: Yes -: HTN -: DM-2 -: Dyslipidemia -: anemia -: esrd -: hysterectomy -: x2 -: king martínez (2016) - Family History Mother Medical History: Hypertension Father Medical History: Heart disease, Hypertension, Diabetes - Social History Smoking Status: Never smoker Alcohol use: No CD- Drugs: No Caffeine use: No Place of Residence: Home Review of Systems 10-point ROS is otherwise unremarkable General: Weakness, Malaise Respiratory: Shortness of Breath Cardiovascular: Edema Neurological: Weakness Physical Examination Temp Pulse Resp BP Pulse Ox 97.9 F 99 H 18 159/96 H 99 05/29/17 16:00 05/29/17 20:00 05/29/17 20:00 05/29/17 20:00 05/29/17 20:00 General: Oriented x3, Cooperative, Acute distress HEENT: Mucous membr. moist/pink Neck: Supple, JVD distended Respiratory: Diminished Cardiovascular: Regular rate/rhythm, No rubs, Edema Gastrointestinal: Soft and benign, Non-distended, No guarding Musculoskeletal: No clubbing, No contractures Integumentary: No rashes, No cyanosis Neurological: Abnormal speech External genitalia: Deferred Rectal: Deferred Laboratory Data (last 24 hrs) 05/29/17 12:35: PT 12.5, INR 1.06, APTT 37.4 H 05/29/17 12:35: WBC 6.8, Hgb 12.4, Hct 38.8, Plt Count 201 05/29/17 12:35: B-Natriuretic Peptide 1304 H 05/29/17 12:35: Sodium 134 L, Potassium 5.7 H*, BUN 73 H, Creatinine 9.35 H*, Glucose 97, Magnesium 2.3, Total Bilirubin 0.7, AST 47 H, ALT 36, Alkaline Phosphatase 96 Imagings Data: EXAM DESCRIPTION: RAD - Chest Single View - 05/29/2017 12:55 pm CLINICAL HISTORY: Shortness of breath COMPARISON: 04/18/2017 04/17/2017, 03/08/2017 FINDINGS: Portable technique limits examination quality. Moderate bilateral pulmonary opacities are present compatible with pulmonary edema. Moderate bilateral pleural effusions, greater on the left. The heart is likely enlarged. No displaced fractures.Right-sided dialysis catheter is in place. IMPRESSION: Moderate CHF/ volume overload pattern. Conclusions/Impression: A/ Acute hypoxic respiratory failure. Acute on chronic diastolic CHF. Bilateral pleural effusion. HTN with CKD. DM II with CKD. Anemia in CKD. Iron deficiency. CARMELITA/ Secondary HyperPTH. Vitamin D3 Deficiency. Hyponatremia. Hyperkalemia. P/ Continue current POC and medications. Case discussed with Dr. Landrum. Agree with Bipap. Arrange for acute dialysis. May benefit from a second dialysis tomorrow. Pulmonary consult for pulmonary effusions. AM labs. Daily weight. Thank you kindly for the consultation. Critical Care: Yes (Greater than 30min)
[2017-05-29] MEDS ORDERED: ALBUMIN HUMAN 25% 50 ML IV SCH (22:00)
[2017-05-30] MEDS ORDERED: cloNIDine HCl 0.1 MG TAB PO PRN (00:50)
[2017-05-30] MEDS: ACETAMINOPHEN 500 MG TAB PO PRN (04:23)
--- NOTE | 2017-05-30 06:40 | RAD REPORT ---
EXAM DESCRIPTION: RAD - Chest Single View - 05/30/2017 5:38 am CLINICAL HISTORY: Chest pain COMPARISON: May 29 TECHNIQUE: AP portable chest image was obtained 0526 hours . FINDINGS: Large left pleural effusion is again noted. Small to moderate right pleural effusion is pr esent similar to comparison. Heart size is mostly obscured by the pleural fluid. Central vasculature is similar to the prior study. Dialysis catheter is in place. Trachea is midline. No pneumothorax. No gross bony abnormality seen. No acute aortic findings suspected. IMPRESSION: CHF/volume overload pattern remains with the large left-side and small to moderate right -sided pleural effusions.
--- NOTE | 2017-05-30 07:32 | EKG ---
Test Date: 2017-05-30 Test Time: 06:44:19 Licensed Weigher: NATHALIA MEASUREMENT RESULTS: Intervals: Rate: 97 [place]: 156 QRSD: 92 QT: 368 QTc: 467 [place]: P: 62 [place]: 156 QRS: -12 T: 102 INTERPRETIVE STATEMENTS: Normal sinus rhythm Nonspecific T wave abnormality Prolonged QT Cannot rule out Anterior infarct Abnormal ECG Compared to ECG 05/29/2017 11:49:19 Prolonged QT interval now present Sinus tachycardia no longer present Electronically Signed On 05-30-17 07:31:39 CDT by Hany Lo
[2017-05-30] MEDS ORDERED: MORPHINE 4 MG/ML SYR IV PRN (07:33)
--- NOTE | 2017-05-30 08:01 | P.CNS ---
Date of Consult: 05/30/17 Reason for Consult: Shortness of breath bilateral pleural effusions Chief Complaint: Dyspnea History of Present Illness: Patient is 47 years of age with a history of chronic renal failure on dialysis admitted with sudden onset of shortness of breath admitted to the hospital with severe hypertension started on a Cardizem drip currently patient is little nauseous he has had bilateral pleural effusion shortness of breath in has improved oxygenation is satisfactory denies any fever chills or chest pain has some cough Allergies tramadol Allergy (Mild, Verified 12/20/16 09:53) Unknown Home Medications: Carvedilol 1.5 tab PO BID 10/12/16 Valsartan 160 mg PO DAILY 10/12/16 Amlodipine Besylate 1 tab PO DAILY 03/09/17 Apixaban [Eliquis *] 1 tab PO BID 03/09/17 Clopidogrel Bisulfate [Plavix*] 1 tab PO DAILY 03/09/17 Gabapentin [Neurontin] 100 mg PO BID 03/09/17 Meclizine HCl [Antivert] 12.5 mg PO TID PRN 03/09/17 Aspirin [Aspirin EC 81 MG] 81 mg PO DAILY 04/17/17 Calcitriol [Rocaltrol] 0.25 mcg PO DAILY 04/17/17 Hydralazine HCl 50 mg PO TID 04/17/17 Vit B Comp&C/Folic Acid/Vit D3 [Dialyvite 800 Plus D Wafer] 1 tab PO DAILY 04/17 - Past Medical/Surgical History Diabetic: Yes -: HTN -: DM-2 -: Dyslipidemia -: anemia -: esrd -: hysterectomy -: x2 -: king martínez (2016) - Family History Mother Medical History: Hypertension Father Medical History: Heart disease, Hypertension, Diabetes - Social History Smoking Status: Never smoker Alcohol use: No CD- Drugs: No Caffeine use: No Place of Residence: Home Review of Systems 10-point ROS is otherwise unremarkable General: Weakness Respiratory: Cough, Shortness of Breath Physical Examination Temp Pulse Resp BP Pulse Ox 97.3 F 98 H 24 H 166/95 H 95 05/30/17 04:00 05/30/17 07:00 05/30/17 07:00 05/30/17 07:00 05/30/17 06:00 General: Alert, Oriented x3 HEENT: Atraumatic Neck: Supple Respiratory: Diminished (Diminished air entry bilaterally) Cardiovascular: No edema, Normal S1 S2 Gastrointestinal: Normal bowel sounds, Soft and benign Musculoskeletal: No clubbing Integumentary: No rashes, No breakdown Laboratory Data (last 24 hrs) 05/29/17 12:35: PT 12.5, INR 1.06, APTT 37.4 H 05/29/17 12:35: WBC 6.8, Hgb 12.4, Hct 38.8, Plt Count 201 05/29/17 12:35: B-Natriuretic Peptide 1304 H 05/29/17 12:35: Sodium 134 L, Potassium 5.7 H*, BUN 73 H, Creatinine 9.35 H*, Glucose 97, Magnesium 2.3, Total Bilirubin 0.7, AST 47 H, ALT 36, Alkaline Phosphatase 96 - Problems (1) Pleural effusion Current Visit: Yes Status: Acute Plan: Patient is 47 years of age admitted with acute onset of shortness of breath she is on dialysis has bilateral pleural effusions which are chronic also has congestive heart failure normal white count was hyperkalemia could elevated creatinine blood pressure is little elevated hold Plavix for now continue to monitor
[2017-05-30 08:06] LABS: Absolute Lymphocytes (CBC) 0.7 K/uL (0.7-4.9); Absolute Monocytes 0.5 K/uL (0.1-1.3); Absolute Neutrophil 3.2 K/uL (1.8-8.0); Basophils % 0.8 % (0-1.3); Eosinophils % 3.5 % (0-4.4); Hematocrit 31.9 % (36.0-45.0); Lymphocytes % 14.2 % (15.3-44.8); MCH 28.2 pg (27.0-35.0); MCV 85.2 fL (80-100); MPV 8.3 fL (7.6-11.3); Monocytes % 11.7 % (3.3-12.3); RBC Red Blood Cell Count 3.75 M/uL (3.86-4.86)
[2017-05-30 08:13] LABS: Phosphorus 4.5 mg/dL (2.5-4.3); Potassium 4.2 mEq/L (3.6-5.0)
[2017-05-30] MEDS: ASPIRIN 81 MG CHEWABLE TABLET PO SCH (08:31)
[2017-05-30] MEDS: HYDRALAZINE HCL 25 MG TABLET PO SCH ×3 (08:32→22:15)
[2017-05-30] MEDS: AMLODIPINE 10 MG TAB PO SCH (08:34)
[2017-05-30] MEDS: CARVEDILOL 25 MG TAB PO SCH (08:35)
[2017-05-30] MEDS: HEPARIN 5000 UNIT/ML 1 ML VIAL SQ SCH ×2 (08:36→21:59)
[2017-05-30] MEDS: FUROSEMIDE 20 MG/ 2ML VIAL IV SCH ×2 (08:44→17:40)
[2017-05-30] MEDS ORDERED: CLOPIDOGREL 75 MG TABLET PO SCH (09:00)
[2017-05-30] MEDS: VALSARTAN 160 MG TAB PO SCH (09:00)
--- NOTE | 2017-05-30 09:57 | RAD REPORT ---
EXAM DESCRIPTION: RAD - Chest Pa And Lat (2 Views) - 05/30/2017 9:43 am CLINICAL HISTORY: Bilateral pleural effusions COMPARISON: May 30, 2017 TECHNIQUE: PA and lateral views of the chest were obtained. FINDINGS: The lungs are slightly underinflated. Large left pleural effusion is present similar to th e earlier study. The much smaller right pleural effusion is also unchanged. Vasculature and lung lou ings remain prominent. Right-sided double-lumen dialysis catheter remains in place. Heart size is be lieved to be normal with the left-side heart obscured by the pleural fluid. No pneumothorax. No acute bony finding noted. No aortic abnormality. IMPRESSION: Large left-side and small to moderate right-sided pleural effusion unchanged from earlie r examination. No pneumothorax.
[2017-05-30] MEDS: PROMETHAZINE 25 MG/ML VIAL IV PRN ×2 (10:06→16:05)
[2017-05-30] MEDS ORDERED: CLONIDINE 0.3 MG/PATCH TD SCH (11:00)
[2017-05-30] MEDS: NITROGLYCERIN 1 GM PKT TD SCH ×2 (11:23→17:40)
--- NOTE | 2017-05-30 12:35 | ECHO ---
HEIGHT: 5 ft 8 in WEIGHT: 155 lb 0.112 oz DATE OF STUDY: 05/30/[address]: Vasile Schofield MD 2-DIMENSIONAL: YES M.MODE: YES DOPPLER: YES COLOR FLOW: YES TDS: YES PORTABLE: NO DEFINITY: NO BUBBLE STUDY: NO DIAGNOSIS: CONGESTIVE HEART FAILURE CARDIAC HISTORY: CATHERIZATION: NO SURGERY: NO PROSTHETIC VALVE: NO PACEMAKER: NO MEASUREMENTS (cm) DIASTOLIC (NORMALS) SYSTOLIC (NORMALS) IVSd 1.3 (0.6-1.2) LA Diam 4.4 (1.9-4.0) LVEF 60-69% LVIDd 5.6 (3.5-5.7) LVIDs 4.0 (2.0-3.5) %FS 28% LVPWd 1.3 (0.6-1.2) Ao Diam 2.4 (2.0-3.7) 2 DIMENSIONAL ASSESSMENT: RIGHT ATRIUM: NORMAL LEFT ATRIUM: DILATED RIGHT VENTRICLE: NORMAL LEFT VENTRICLE: LEFT VENTRICULAR HYPERTROPHY TRICUSPID VALVE: NORMAL MITRAL VALVE: NORMAL PULMONIC VALVE: NORMAL AORTIC VALVE: NORMAL PERICARDIAL EFFUSION: NONE AORTIC ROOT: NORMAL LEFT VENTRICULAR WALL MOTION: NORMAL DOPPLER/COLOR FLOW: IMPAIRED LEFT VENTRICULAR RELAXATION. COMMENTS: NORMAL LEFT VENTRICULAR EJECTION FRACTION. LEFT VENTRICULAR HYPERTROPHY. DILATED LEFT ATRIUM. IMPAIRED LEFT VENTRICULAR RELAXATION. TECHNOLOGIST: Silvio ROJAS
[2017-05-30] MEDS: EPOETIN ALFA 10,000 UNIT/ML VIAL IV SCH (17:56)
--- NOTE | 2017-05-30 20:36 | P.PN ---
Date of Service: 05/30/17 Vital Signs Temp Pulse Resp BP Pulse Ox 97.3 F 95 H 23 H 161/91 H 100 05/30/17 04:00 05/30/17 19:00 05/30/17 19:00 05/30/17 19:00 05/30/17 19:00 Medications Acetaminophen (Tylenol -Extra Strength) 500 mg PO Q6H PRN PRN Reason: [id number] Stop: 06/28/17 13:49 Last Admin: 05/30/17 04:23 Dose: 500 mg Albuterol Sulfate (Proventil 0.083% Neb Soln) 2.5 mg NEB Q4H PRN PRN Reason: WHEEZING Stop: 06/28/17 13:49 Last Admin: 05/29/17 20:20 Dose: 2.5 mg Amlodipine Besylate (Norvasc) 10 mg PO DAILY [facility] Stop: 06/29/17 09:01 Last Admin: 05/30/17 08:34 Dose: 10 mg Aspirin (Aspirin Chewable) 81 mg PO DAILY [facility] Stop: 06/29/17 09:01 Last Admin: 05/30/17 08:31 Dose: 81 mg Carvedilol (Coreg) 25 mg PO BID [facility] Stop: 06/29/17 09:01 Last Admin: 05/30/17 08:35 Dose: 25 mg Clonidine HCl (Catapres) 0.1 mg PO Q6HP PRN PRN Reason: HYPERTENSION Stop: 06/29/17 00:51 Clonidine HCl (Catapres-Tts 3) 0.3 mg TD EVERY 7TH DAY [facility] Stop: 06/29/17 11:01 Last Admin: 05/30/17 11:24 Dose: 0.3 mg Epoetin Drew (Procrit) 10,000 unit IV EVERY HD [facility] Stop: 06/28/17 21:31 Last Admin: 05/30/17 17:56 Dose: 10,000 unit Furosemide (Lasix) 60 mg IV BIDL [facility] Stop: 06/28/17 17:01 Last Admin: 05/30/17 17:40 Dose: 60 mg Heparin Sodium (Porcine) (Heparin 1,000 Units/Ml) 6,000 unit IJ EVERY HD PRN PRN Reason: FLUSH AFTER EACH USE Stop: 06/28/17 21:22 Last Admin: 03/20/18 17:57 Dose: 6,000 unit Heparin Sodium (Porcine) (Heparin 5,000 Units/Ml) 5,000 unit SQ Q12HR [facility] Stop: 06/29/17 09:01 Last Admin: 05/30/17 08:36 Dose: 5,000 unit Hydralazine HCl (Apresoline) 50 mg PO TID [facility] Stop: 06/28/17 14:01 Last Admin: 05/30/17 14:00 Dose: Not Given Albumin Human (Albumin 25%) 50 mls @ 100 mls/hr IV EVERY HD [facility] Stop: 06/28/17 22:01 Ipratropium [place] (Atrovent Neb) 0.5 mg NEB Q4H PRN PRN Reason: WHEEZING Stop: 06/28/17 13:49 Last Admin: 05/29/17 20:20 Dose: 0.5 mg Mannitol (Mannitol 12.5 Gm/50 Ml Vial) 12.5 gm IV EVERY HD PRN PRN Reason: BP support at hemodialysis Stop: 06/28/17 21:22 Nitroglycerin (Nitrol Oint) 1 gm TD Q6HR [facility] Stop: 06/29/17 12:01 Last Admin: 05/30/17 17:40 Dose: 1 gm Ondansetron HCl (Zofran) 4 mg IV Q6H PRN PRN Reason: NAUSEA / VOMITING Stop: 06/28/17 13:49 Last Admin: 05/30/17 08:13 Dose: 4 mg Promethazine HCl (Phenergan) 12.5 mg IV Q4H PRN PRN Reason: NAUSEA / VOMITING Stop: 06/29/17 09:58 Last Admin: 05/30/17 16:05 Dose: 12.5 mg Sodium Chloride (Normal Saline Flush) 10 ml IV BID [facility] Stop: 06/28/17 21:01 Last Admin: 05/30/17 08:47 Dose: 10 ml Valsartan (Diovan) 160 mg PO DAILY [facility] Stop: 06/29/17 09:01 Last Admin: 05/30/17 09:00 Dose: Not Given Assessment/ Plan: Nephrology Feeling better since yesterday but still with dyspnea. Bipap as needed. Cardiac status stable without CP. Had HD yesterday evening. Vitals, medications, blood work and imaging reviewed in the chart. General: Oriented x3, Cooperative, Acute distress HEENT: Mucous membr. moist/pink Neck: Supple, JVD distended Respiratory: Diminished Cardiovascular: Regular rate/rhythm, No rubs, Edema Gastrointestinal: Soft and benign, Non-distended, No guarding Musculoskeletal: No clubbing, No contractures Integumentary: No rashes, No cyanosis Neurological: Abnormal speech External genitalia: Deferred Rectal: Deferred CC >30min Laboratory Data (last 24 hrs) 05/29/17 12:35: PT 12.5, INR 1.06, APTT 37.4 H 05/29/17 12:35: WBC 6.8, Hgb 12.4, Hct 38.8, Plt Count 201 05/29/17 12:35: B-Natriuretic Peptide 1304 H 05/29/17 12:35: Sodium 134 L, Potassium 5.7 H*, BUN 73 H, Creatinine 9.35 H*, Glucose 97, Magnesium 2.3, Total Bilirubin 0.7, AST 47 H, ALT 36, Alkaline Phosphatase 96 Imagings Data: EXAM DESCRIPTION: RAD - Chest Single View - 05/29/2017 12:55 pm CLINICAL HISTORY: Shortness of breath COMPARISON: 04/18/2017 04/17/2017, 03/08/2017 FINDINGS: Portable technique limits examination quality. Moderate bilateral pulmonary opacities are present compatible with pulmonary edema. Moderate bilateral pleural effusions, greater on the left. The heart is likely enlarged. No displaced fractures.Right-sided dialysis catheter is in place. IMPRESSION: Moderate CHF/ volume overload pattern. Conclusions/Impression: A/ Acute hypoxic respiratory failure. Acute on chronic diastolic CHF. Bilateral pleural effusion. HTN with CKD. DM II with CKD. Anemia in CKD. Iron deficiency. CARMELITA/ Secondary HyperPTH. Vitamin D3 Deficiency. Hyponatremia. Hyperkalemia. P/ Continue current POC and medications. Case discussed with Dr. Jurdao. Bipap as needed for resp failure. Arrange for second acute HD today. May benefit from a second dialysis tomorrow. Pulmonary evaluating pulmonary effusions. AM labs. Daily weight.
--- NOTE | 2017-05-30 22:26 | PN ---
Date of Progress Note: 05/30/2017 Subjective: The patient was seen this morning for followup. She was lying in bed in ICU, was having some nausea problem. She did have dialysis last night. Cardene drip was discontinued and oral anti hypertensive medications were started. During the course of day today, her nausea was not controlled with Zofran, so Phenergan was added and even after giving her antihypertensive medication in the lat e morning, early afternoon, her blood pressure was elevated, so clonidine patch was added. Phenergan was also added for nausea. Objective: Vital Signs: Reviewed. HEENT: Unremarkable. Lungs: Clear to auscultation with diminished air entry in lower lung cervantes. Not using accessory mu scles of respiration. Heart: Sounds normal. Abdomen: Soft. Bowel sounds normal. No guarding, rigidity, tenderness, or distention. Extremities: No leg edema. Impression: 1.Congestive heart failure, chronic, systolic with acute exacerbation. 2.End-stage renal disease. 3.Hypertension. 4.Coronary artery disease. 5.Diabetes mellitus. Plan: Continue current medications. Continue to follow with rn trauma as well as book shelver. Dialysis support will be provided per rn trauma. We will continue antihypertensive medications p er order. Echo will be done today per order. I will see her tomorrow for followup. We will monitor her in ICU for close observation and tomorrow depending on her condition, we will decide if we can transfer her out of ICU or not. VINCENT/MODL Voice ID: [id number] Report ID: [id number]
[2017-05-31] MEDS: CARVEDILOL 25 MG TAB PO SCH ×3 (00:16→20:28)
[2017-05-31] MEDS: ACETAMINOPHEN 500 MG TAB PO PRN (00:32)
[2017-05-31] MEDS: NITROGLYCERIN 1 GM PKT TD SCH ×4 (00:33→18:02)
[2017-05-31 06:48] LABS: Absolute Lymphocytes (CBC) 1.2 K/uL (0.7-4.9); Absolute Monocytes 0.6 K/uL (0.1-1.3); Absolute Neutrophil 2.1 K/uL (1.8-8.0); Basophils % 1.4 % (0-1.3); Eosinophils % 5.3 % (0-4.4); Hematocrit 35.5 % (36.0-45.0); Lymphocytes % 29.4 % (15.3-44.8); MCH 27.3 pg (27.0-35.0); MCV 86.3 fL (80-100); MPV 8.4 fL (7.6-11.3); Monocytes % 13.5 % (3.3-12.3); RBC Red Blood Cell Count 4.12 M/uL (3.86-4.86)
[2017-05-31 07:01] LABS: Phosphorus 6.1 mg/dL (2.5-4.3); Potassium 4.4 mEq/L (3.6-5.0)
[2017-05-31] MEDS: FUROSEMIDE 20 MG/ 2ML VIAL IV SCH ×2 (08:46→18:02)
[2017-05-31] MEDS: HEPARIN 5000 UNIT/ML 1 ML VIAL SQ SCH ×2 (08:46→20:28)
[2017-05-31] MEDS: ASPIRIN 81 MG CHEWABLE TABLET PO SCH (08:47)
[2017-05-31] MEDS: GABAPENTIN 100 MG CAP PO SCH ×2 (08:47→20:28)
[2017-05-31] MEDS: VALSARTAN 160 MG TAB PO SCH (09:00)
[2017-05-31] MEDS: AMLODIPINE 10 MG TAB PO SCH (09:00)
[2017-05-31] MEDS: HYDRALAZINE HCL 25 MG TABLET PO SCH ×3 (09:00→20:27)
--- NOTE | 2017-05-31 17:12 | P.PN ---
Date of Service: 05/31/17 Vital Signs Temp Pulse Resp BP Pulse Ox 98.5 F 83 16 122/78 99 05/31/17 16:00 05/31/17 16:00 05/31/17 16:00 05/31/17 16:00 05/31/17 16:00 Medications Acetaminophen (Tylenol -Extra Strength) 500 mg PO Q6H PRN PRN Reason: [id number] Stop: 06/28/17 13:49 Last Admin: 05/31/17 00:32 Dose: 500 mg Albuterol Sulfate (Proventil 0.083% Neb Soln) 2.5 mg NEB Q4H PRN PRN Reason: WHEEZING Stop: 06/28/17 13:49 Last Admin: 05/29/17 20:20 Dose: 2.5 mg Amlodipine Besylate (Norvasc) 10 mg PO DAILY [facility] Stop: 06/29/17 09:01 Last Admin: 05/31/17 09:00 Dose: Not Given Aspirin (Aspirin Chewable) 81 mg PO DAILY [facility] Stop: 06/29/17 09:01 Last Admin: 05/31/17 08:47 Dose: 81 mg Carvedilol (Coreg) 25 mg PO BID [facility] Stop: 06/29/17 09:01 Last Admin: 05/31/17 09:00 Dose: Not Given Clonidine HCl (Catapres) 0.1 mg PO Q6HP PRN PRN Reason: HYPERTENSION Stop: 06/29/17 00:51 Clonidine HCl (Catapres-Tts 3) 0.3 mg TD EVERY 7TH DAY [facility] Stop: 06/29/17 11:01 Last Admin: 05/30/17 11:24 Dose: 0.3 mg Epoetin Drew (Procrit) 10,000 unit IV EVERY HD [facility] Stop: 06/28/17 21:31 Last Admin: 05/30/17 17:56 Dose: 10,000 unit Furosemide (Lasix) 60 mg IV BIDL [facility] Stop: 06/28/17 17:01 Last Admin: 05/31/17 08:46 Dose: 60 mg Gabapentin (Neurontin) 100 mg PO BID [facility] Stop: 06/30/17 09:01 Last Admin: 05/31/17 08:47 Dose: 100 mg Heparin Sodium (Porcine) (Heparin 1,000 Units/Ml) 6,000 unit IJ EVERY HD PRN PRN Reason: FLUSH AFTER EACH USE Stop: 06/28/17 21:22 Last Admin: 05/30/17 17:57 Dose: 6,000 unit Heparin Sodium (Porcine) (Heparin 5,000 Units/Ml) 5,000 unit SQ Q12HR [facility] Stop: 06/29/17 09:01 Last Admin: 05/31/17 08:46 Dose: 5,000 unit Hydralazine HCl (Apresoline) 50 mg PO TID [facility] Stop: 06/28/17 14:01 Last Admin: 05/31/17 13:57 Dose: 50 mg Albumin Human (Albumin 25%) 50 mls @ 100 mls/hr IV EVERY HD [facility] Stop: 06/28/17 22:01 Ipratropium [place] (Atrovent Neb) 0.5 mg NEB Q4H PRN PRN Reason: WHEEZING Stop: 06/28/17 13:49 Last Admin: 05/29/17 20:20 Dose: 0.5 mg Mannitol (Mannitol 12.5 Gm/50 Ml Vial) 12.5 gm IV EVERY HD PRN PRN Reason: BP support at hemodialysis Stop: 06/28/17 21:22 Nitroglycerin (Nitrol Oint) 1 gm TD Q6HR [facility] Stop: 06/29/17 12:01 Last Admin: 05/31/17 12:24 Dose: 1 gm Ondansetron HCl (Zofran) 4 mg IV Q6H PRN PRN Reason: NAUSEA / VOMITING Stop: 06/28/17 13:49 Last Admin: 05/30/17 08:13 Dose: 4 mg Promethazine HCl (Phenergan) 12.5 mg IV Q4H PRN PRN Reason: NAUSEA / VOMITING Stop: 06/29/17 09:58 Last Admin: 05/30/17 16:05 Dose: 12.5 mg Sodium Chloride (Normal Saline Flush) 10 ml IV BID [facility] Stop: 06/28/17 21:01 Last Admin: 05/31/17 09:00 Dose: Not Given Valsartan (Diovan) 160 mg PO DAILY [facility] Stop: 06/29/17 09:01 Last Admin: 05/31/17 09:00 Dose: Not Given Assessment/ Plan: Nephrology Feeling better since yesterday. Bipap as needed. CPS improved without CP or SOB. Vitals, medications, blood work and imaging reviewed in the chart. General: Oriented x3, Cooperative, Acute distress HEENT: Mucous membr. moist/pink Neck: Supple, JVD distended Respiratory: Diminished Cardiovascular: Regular rate/rhythm, No rubs, Edema Gastrointestinal: Soft and benign, Non-distended, No guarding Musculoskeletal: No clubbing, No contractures Integumentary: No rashes, No cyanosis Neurological: Abnormal speech External genitalia: Deferred Rectal: Deferred Laboratory Data (last 24 hrs) 05/29/17 12:35: PT 12.5, INR 1.06, APTT 37.4 H 05/29/17 12:35: WBC 6.8, Hgb 12.4, Hct 38.8, Plt Count 201 05/29/17 12:35: B-Natriuretic Peptide 1304 H 05/29/17 12:35: Sodium 134 L, Potassium 5.7 H*, BUN 73 H, Creatinine 9.35 H*, Glucose 97, Magnesium 2.3, Total Bilirubin 0.7, AST 47 H, ALT 36, Alkaline Phosphatase 96 Imagings Data: EXAM DESCRIPTION: RAD - Chest Single View - 05/29/2017 12:55 pm CLINICAL HISTORY: Shortness of breath COMPARISON: 04/18/2017 04/17/2017, 03/08/2017 FINDINGS: Portable technique limits examination quality. Moderate bilateral pulmonary opacities are present compatible with pulmonary edema. Moderate bilateral pleural effusions, greater on the left. The heart is likely enlarged. No displaced fractures.Right-sided dialysis catheter is in place. IMPRESSION: Moderate CHF/ volume overload pattern. Conclusions/Impression: A/ Acute hypoxic respiratory failure. Acute on chronic diastolic CHF. Bilateral pleural effusion. HTN with CKD. DM II with CKD. Anemia in CKD. Iron deficiency. CARMELITA/ Secondary HyperPTH. Vitamin D3 Deficiency. Hyponatremia. Hyperkalemia. P/ Continue current POC and medications. Bipap as needed for resp failure. Next HD tomorrow. Restart binders and vitamin d. Pulmonary evaluating pulmonary effusions. AM labs. Daily weight.
--- NOTE | 2017-05-31 20:54 | PN ---
Date of Progress Note: 05/31/2017 Subjective: The patient was seen this morning for followup. She was in ICU. Sleeping. Easily arou sable. Not in any distress. Objective: Vital Signs: Reviewed. HEENT: Unremarkable. Lungs: Clear to auscultation except diminished air entry in lower lung cervantes. Not using accessory muscles of respiration. Heart: Sounds normal. Abdomen: Soft, bowel sounds normal. No guarding, rigidity, tenderness, or distention. Extremities: No leg edema. Laboratory Data: White count 4.1, hemoglobin 11.2, platelets 168. Sodium 133, potassium 4.4, chlori de 101, bicarb 23, BUN 27, creatinine 5.79. Glucose 74. BNP 1242. Impression: 1.Congestive heart failure, chronic, systolic, with acute exacerbation. 2.End-stage renal disease. 3.Hypertension. 4.Anemia due to chronic kidney disease. 5.Coronary artery disease. Plan: We will continue current medications. Blood pressure is normal. We will transfer her out of ICU to regular room. See copy of transfer order for details. Nurse in ICU was told to hold antihype rtensive medication if systolic blood pressure less than 120. We will continue clonidine patch, as s he is currently on. Echocardiogram from yesterday shows normal ejection fraction. Her previous echo cardiogram from last year had shown low ejection fraction, but it is normal on current echocardiogram. We will continue to follow with hand surgeon f or dialysis support. VINCENT/MODL Voice ID: [id number] Report ID: [id number]
[2017-06-01] MEDS: NITROGLYCERIN 1 GM PKT TD SCH ×3 (00:40→11:08)
[2017-06-01] MEDS: SEVELAMER CARBONATE 800 MG TABLET PO SCH ×3 (08:00→16:26)
[2017-06-01] MEDS: CARVEDILOL 25 MG TAB PO SCH ×2 (09:00→21:44)
[2017-06-01] MEDS: VITAMIN D 5,000 UNIT CAP PO SCH (09:00)
[2017-06-01] MEDS: CALCITROL 0.25 MCG CAP PO SCH (09:00)
[2017-06-01] MEDS: VALSARTAN 160 MG TAB PO SCH (09:00)
[2017-06-01] MEDS: GABAPENTIN 100 MG CAP PO SCH ×2 (09:00→21:44)
[2017-06-01] MEDS: AMLODIPINE 10 MG TAB PO SCH (09:00)
[2017-06-01] MEDS: FUROSEMIDE 20 MG/ 2ML VIAL IV SCH ×2 (09:00→16:26)
[2017-06-01] MEDS: HEPARIN 5000 UNIT/ML 1 ML VIAL SQ SCH ×2 (09:00→21:44)
[2017-06-01] MEDS: HYDRALAZINE HCL 25 MG TABLET PO SCH ×3 (09:00→21:44)
[2017-06-01] MEDS: MULTIVITAMINS,THERAPEUT 1 TAB PO SCH (09:00)
[2017-06-01] MEDS: ASPIRIN 81 MG CHEWABLE TABLET PO SCH (09:00)
--- NOTE | 2017-06-01 09:00 | P.PN ---
Subjective Date of Service: 06/01/17 Chief Complaint: Dyspnea Subjective: Improving (Patient has improved significantly shortness of breath has improved patient states that she has had thoracentesis before while she was on peritoneal dialysis recent chest x-ray does show significant effusion on the left side denies any chest pain) Review of Systems General: Weakness Respiratory: Shortness of Breath Physical Examination - Vital Signs Temperature: 98.0 F Blood Pressure: 120/69 Pulse: 74 Respirations: 16 Pulse Ox (%): 91 - Physical Exam General: Alert, Oriented x3 HEENT: Atraumatic Neck: Supple Respiratory: Diminished (Diminished air entry left greater than the right) Cardiovascular: No edema, Regular rate/rhythm Assessment & Plan - Problems (Diagnosis) (1) Pleural effusion Onset Date: 05/30/17 Current Visit: Yes Status: Acute Plan: Patient admitted with shortness of breath is currently doing much better shortness of breath has improved oxygenation on room air is 97% of ordered a PE and a lateral chest x-ray she has had thoracentesis done before Plavix was stopped on 05/30 will follow as an outpatient next week and plan to do a thoracentesis if she still has a significant effusion on the left side patient will not qualify for home O2 patient is normal left ventricular function
--- NOTE | 2017-06-01 09:44 | RAD REPORT ---
EXAM DESCRIPTION: RAD - Chest Pa And Lat (2 Views) - 06/01/2017 9:08 am CLINICAL HISTORY: Pleural effusions. COMPARISON: 05/30/2017, 05/29/2017 FINDINGS: Mild reduction in the size of the left pleural effusion is noted. Small right pleural effu mallika is present. Mild interstitial pulmonary edema is noted. The heart is mildly enlarged in size. Ri ght-sided venous catheter has tip in the SVC. IMPRESSION: Mild reduction in the size of the left pleural effusion since comparative study.
[2017-06-01] MEDS: EPOETIN ALFA 10,000 UNIT/ML VIAL IV SCH (11:08)
[2017-06-01 20:42] VITALS: O2SAT 94
--- NOTE | 2017-06-01 20:59 | P.PN ---
Date of Service: 06/01/17 Vital Signs Temp Pulse Resp BP Pulse Ox 98.2 F 83 16 134/70 92 06/01/17 16:00 06/01/17 16:26 06/01/17 16:00 06/01/17 16:26 06/01/17 16:00 Medications Acetaminophen (Tylenol -Extra Strength) 500 mg PO Q6H PRN PRN Reason: [id number] Stop: 06/28/17 13:49 Last Admin: 05/31/17 00:32 Dose: 500 mg Albuterol Sulfate (Proventil 0.083% Neb Soln) 2.5 mg NEB Q4H PRN PRN Reason: WHEEZING Stop: 06/28/17 13:49 Last Admin: 05/29/17 20:20 Dose: 2.5 mg Amlodipine Besylate (Norvasc) 10 mg PO DAILY [facility]O Stop: 06/29/17 09:01 Last Admin: 06/01/17 09:00 Dose: Not Given Aspirin (Aspirin Chewable) 81 mg PO DAILY [facility] Stop: 06/29/17 09:01 Last Admin: 06/01/17 09:00 Dose: Not Given Calcitriol (Rocaltrol) 0.5 mcg PO DAILY [facility] Stop: 07/01/17 09:01 Last Admin: 06/01/17 09:00 Dose: Not Given Carvedilol (Coreg) 25 mg PO BID [facility] Stop: 06/29/17 09:01 Last Admin: 06/01/17 09:00 Dose: Not Given Cholecalciferol (Vitamin D 5,000 Iu Cap) 5,000 unit PO DAILY [facility] Stop: 07/01/17 09:01 Last Admin: 06/01/17 09:00 Dose: Not Given Clonidine HCl (Catapres) 0.1 mg PO Q6HP PRN PRN Reason: HYPERTENSION Stop: 06/29/17 00:51 Clonidine HCl (Catapres-Tts 3) 0.3 mg TD EVERY 7TH DAY [facility] Stop: 06/29/17 11:01 Last Admin: 05/30/17 11:24 Dose: 0.3 mg Epoetin Drew (Procrit) 10,000 unit IV EVERY HD [facility] Stop: 06/28/17 21:31 Last Admin: 06/01/17 11:08 Dose: 10,000 unit Furosemide (Lasix) 60 mg IV BIDL [facility] Stop: 06/28/17 17:01 Last Admin: 06/01/17 16:26 Dose: 60 mg Gabapentin (Neurontin) 100 mg PO BID [facility] Stop: 06/30/17 09:01 Last Admin: 06/01/17 09:00 Dose: Not Given Heparin Sodium (Porcine) (Heparin 1,000 Units/Ml) 6,000 unit IJ EVERY HD PRN PRN Reason: FLUSH AFTER EACH USE Stop: 06/28/17 21:22 Last Admin: 06/01/17 11:08 Dose: 6,000 unit Heparin Sodium (Porcine) (Heparin 5,000 Units/Ml) 5,000 unit SQ Q12HR [facility] Stop: 06/29/17 09:01 Last Admin: 06/01/17 09:00 Dose: Not Given Hydralazine HCl (Apresoline) 50 mg PO TID [facility] Stop: 06/28/17 14:01 Last Admin: 06/01/17 14:13 Dose: 50 mg Albumin Human (Albumin 25%) 50 mls @ 100 mls/hr IV EVERY HD [facility] Stop: 06/28/17 22:01 Ipratropium [place] (Atrovent Neb) 0.5 mg NEB Q4H PRN PRN Reason: WHEEZING Stop: 06/28/17 13:49 Last Admin: 05/29/17 20:20 Dose: 0.5 mg Mannitol (Mannitol 12.5 Gm/50 Ml Vial) 12.5 gm IV EVERY HD PRN PRN Reason: BP support at hemodialysis Stop: 06/28/17 21:22 Ondansetron HCl (Zofran) 4 mg IV Q6H PRN PRN Reason: NAUSEA / VOMITING Stop: 06/28/17 13:49 Last Admin: 05/30/17 08:13 Dose: 4 mg Promethazine HCl (Phenergan) 12.5 mg IV Q4H PRN PRN Reason: NAUSEA / VOMITING Stop: 06/29/17 09:58 Last Admin: 05/30/17 16:05 Dose: 12.5 mg Sevelamer Carbonate (Renvela) 800 mg PO TIDWM [facility] Stop: 07/01/17 08:01 Last Admin: 06/01/17 16:26 Dose: 800 mg Sodium Chloride (Normal Saline Flush) 10 ml IV BID [facility] Stop: 06/28/17 21:01 Last Admin: 06/01/17 09:00 Dose: Not Given Valsartan (Diovan) 160 mg PO DAILY [facility] Stop: 06/29/17 09:01 Last Admin: 06/01/17 09:00 Dose: Not Given Vitamin B Complex/Vit C/Folic Acid (Nephro-Linda) 1 tab PO DAILY [facility] Stop: 07/01/17 09:01 Last Admin: 06/01/17 09:00 Dose: Not Given Assessment/ Plan: Nephrology Feeling better. CPS improved without CP or SOB. No acute events overnight. Vitals, medications, blood work and imaging reviewed in the chart. General: Oriented x3, Cooperative, No Acute distress HEENT: Mucous membr. moist/pink Neck: Supple, JVD Respiratory: CTA Cardiovascular: Regular rate/rhythm, No rubs, Edema Gastrointestinal: Soft and benign, Non-distended, No guarding Musculoskeletal: No clubbing, No contractures Integumentary: No rashes, No cyanosis Neurological: Normal speech External genitalia: Deferred Rectal: Deferred Laboratory Data (last 24 hrs) 05/29/17 12:35: PT 12.5, INR 1.06, APTT 37.4 H 05/29/17 12:35: WBC 6.8, Hgb 12.4, Hct 38.8, Plt Count 201 05/29/17 12:35: B-Natriuretic Peptide 1304 H 05/29/17 12:35: Sodium 134 L, Potassium 5.7 H*, BUN 73 H, Creatinine 9.35 H*, Glucose 97, Magnesium 2.3, Total Bilirubin 0.7, AST 47 H, ALT 36, Alkaline Phosphatase 96 Imagings Data: EXAM DESCRIPTION: RAD - Chest Single View - 05/29/2017 12:55 pm CLINICAL HISTORY: Shortness of breath COMPARISON: 04/18/2017 04/17/2017, 03/08/2017 FINDINGS: Portable technique limits examination quality. Moderate bilateral pulmonary opacities are present compatible with pulmonary edema. Moderate bilateral pleural effusions, greater on the left. The heart is likely enlarged. No displaced fractures.Right-sided dialysis catheter is in place. IMPRESSION: Moderate CHF/ volume overload pattern. Conclusions/Impression: A/ Acute hypoxic respiratory failure. Acute on chronic diastolic CHF. Bilateral pleural effusion. HTN with CKD. DM II with CKD. Anemia in CKD. Iron deficiency. CARMELITA/ Secondary HyperPTH. Vitamin D3 Deficiency. Hyponatremia. Hyperkalemia. P/ Continue current POC and medications. Bipap as needed for resp failure. Acute HD today. Counseled regarding IDWG. Pulmonary evaluating pulmonary effusions. AM labs. Daily weight.
--- NOTE | 2017-06-01 22:36 | PN ---
Date of Progress Note: 06/01/2017 Subjective: The patient was seen this morning for followup. No new complaints or problems reported by the patient. Lying in bed, not in any distress. Overall, she feels better than before. Objective: Vital Signs: Reviewed. HEENT: Unremarkable. Lungs: Bilateral good equal air entry, except diminished air entry in the lower lung cervantes, not usi ng the accessory muscles of respiration. Heart: Sounds normal. Abdomen: Soft. Bowel sounds normal. No guarding, rigidity, tenderness, or distention. Extremities: No leg edema. Impression: 1.Chronic systolic congestive heart failure. 2.End-stage renal disease, on hemodialysis. 3.Hypertension. 4.Coronary artery disease. 5.Diabetes mellitus. Plan: Continue current medications. Continue to follow with director presales. I did talk to Dr. Madison anderson. He did evaluate her again today and recommended no need for any thoracentesis and the patient do es not need any home oxygen either. We will put her on dialysis support per director presales. I will se e her tomorrow for followup, possible discharge to go home tomorrow depending on her condition. VINCENT/MODL Voice ID: [id number] Report ID: [id number]
[2017-06-02 06:42] VITALS: BMI 21.4
[2017-06-02 08:08] VITALS: TEMP 97.4
[2017-06-02] MEDS: CARVEDILOL 25 MG TAB PO SCH (09:00)
[2017-06-02] MEDS: AMLODIPINE 10 MG TAB PO SCH (09:00)
[2017-06-02] MEDS: VALSARTAN 160 MG TAB PO SCH (09:00)
[2017-06-02] MEDS: HYDRALAZINE HCL 25 MG TABLET PO SCH (09:00)
[2017-06-02] MEDS: FUROSEMIDE 20 MG/ 2ML VIAL IV SCH (09:00)
[2017-06-02] MEDS: MULTIVITAMINS,THERAPEUT 1 TAB PO SCH (09:17)
[2017-06-02] MEDS: VITAMIN D 5,000 UNIT CAP PO SCH (09:17)
[2017-06-02] MEDS: SEVELAMER CARBONATE 800 MG TABLET PO SCH ×3 (09:17→11:51)
[2017-06-02] MEDS: GABAPENTIN 100 MG CAP PO SCH (09:18)
[2017-06-02] MEDS: ASPIRIN 81 MG CHEWABLE TABLET PO SCH (09:18)
[2017-06-02] MEDS: HEPARIN 5000 UNIT/ML 1 ML VIAL SQ SCH (09:18)
[2017-06-02] MEDS: CALCITROL 0.25 MCG CAP PO SCH (11:50)
[2017-06-02 11:51] VITALS: BP 176/95
--- NOTE | 2017-06-02 22:37 | DS ---
Date of Discharge: 06/02/2017 Disposition: Discharged to go home. Physical Examination: HEENT: Unremarkable. Lungs: Clear to auscultation. Lung bases has diminished air entry. Not using any accessory muscles of respiration. Heart: Sounds normal. Abdomen: Soft. Bowel sounds normal. No guarding, rigidity, tenderness, or distention. Extremities: No leg edema. Discharge Medications And Instructions: 1.Continue all prior home medications. 2.Use clonidine patch 0.3 mg every week. 3.Follow up at my office in 1 month. Hospital Course: This is a 47-year-old female patient, who was admitted to the hospital with shortne ss of breath complaint. Please see dictated H and P for more information. The patient has chronic s ystolic congestive heart failure, hypertension, coronary artery disease, end-stage renal disease. Dominic aranda goes for dialysis on a regular basis and she came into emergency room with this complaint. She was evaluated in the ER. Chest x-ray had shown bilateral pleural effusion and congestive heart failure changes. She was initially admitted to intensive care unit. Her blood pressure was extremely elevat ed when she came in. She was given IV Lasix and nitroglycerin paste and then was started on IV Carde ne drip in emergency room for control of her blood pressure. She was admitted to ICU and during the night, her Cardene drip was discontinued and she was started on oral antihypertensive medication and has been on oral antihypertensive medications since that time. She has not been using any clonidine at home. We started her on clonidine patch and we continued her usual home medications and her blood pressure has remained under excellent control with this combination of treatment including clonidine patch. Nephrology consultation was obtained from her yarn sizer. Dialysis support was provided p er yarn sizer. Dr. Jurado was consulted for pleural effusion. He has not suggested any thoracen tesis. Repeat chest x-ray from yesterday shows improvement in pleural effusion. The patient does no t qualify and does not need home oxygen, as I was told by Dr. Jurado. This morning, when I saw her , she was feeling fine back to her normal baseline and was discharged to go home in stable condition with above-mentioned medication and instructions. Final Diagnoses: 1.Congestive heart failure, chronic, systolic with acute exacerbation. 2.Bilateral pleural effusion. 3.End-stage renal disease, on hemodialysis. 4.Hypertension, uncontrolled. 5.Coronary artery disease. 6.Hyperkalemia. 7.Type 2 diabetes mellitus. 8.Hyperlipidemia. Laboratory Data: Labs done during this hospitalization; white count when she first came in was 6.8, hemoglobin 12.4, platelets 201. Last white count on May 31 was 4.1, hemoglobin 11.2, platelets 1 68. Last chemistry on 05/31; sodium 133, potassium 4.4, chloride 101, bicarb 23, BUN 27, creatinine 5.79, glucose 74. When she first came in, sodium was 134, potassium was 5.7, chloride 98, bicarb 22, BUN 73, creatinine 9.35, glucose 97. VINCENT/MODL Voice ID: [id number] Report ID: [id number]
== END 2017-06-02 12:17 | disposition home or self-care (01) | DRG 291 ==
LOC: ER 11:38 → ERHOLD 13:44 → 3RD-ICU 22:25 → 4TH 05-31 09:15
PROVIDERS: ADMIT Internal Medicine; ATTEND Internal Medicine
PROC: 05HP33Z Insertion of Infusion Device into Right External Jugular Vein, Percutaneous Approach (ICD-10-PCS; principal; 2017-05-29)
PROC: 5A09357 Assistance with Respiratory Ventilation, Less than 24 Consecutive Hours, Continuous Positive Airway Pressure (ICD-10-PCS; 2017-05-30)
DX: I13.2 Hypertensive heart and chronic kidney disease with heart failure and with stage 5 chronic kidney disease, or end stage renal disease (principal); J96.01 Acute respiratory failure with hypoxia; I50.23 Acute on chronic systolic (congestive) heart failure; N18.6 End stage renal disease; I50.22 Chronic systolic (congestive) heart failure; N25.81 Secondary hyperparathyroidism of renal origin; E87.1 Hypo-osmolality and hyponatremia; E11.22 Type 2 diabetes mellitus with diabetic chronic kidney disease; I25.10 Atherosclerotic heart disease of native coronary artery without angina pectoris; E78.5 Hyperlipidemia, unspecified; E87.5 Hyperkalemia; D63.1 Anemia in chronic kidney disease; Z99.2 Dependence on renal dialysis
CPT/HCPCS: 36415; 71045; 71046; 80048; 80076; 81003; 82550; 82553; 82962; 83735; 83880; 84100; 84484; 85025; 85610; 85730; 90935; 93005; 93306; 94660; 96365; 96366; 96375; 99285; J1644; J1940; J2405; J2550; J7030; Q4081

== ENCOUNTER 2017-08-21 11:36 | Observation (INO) | payer OTHER ==
[2017-08-21 12:17] LABS: Absolute Lymphocytes (CBC) 0.8 K/uL (0.7-4.9); Absolute Monocytes 0.7 K/uL (0.1-1.3); Absolute Neutrophil 4.3 K/uL (1.8-8.0); Eosinophils % 4.4 % (0-4.4); Hematocrit 36.6 % (36.0-45.0); Lymphocytes % 13.5 % (15.3-44.8); MCH 27.5 pg (27.0-35.0); MCV 85.2 fL (80-100); Monocytes % 11.9 % (3.3-12.3); RBC Red Blood Cell Count 4.29 M/uL (3.86-4.86)
[2017-08-21 12:25] LABS: Protime INR 1.05
[2017-08-21 12:38] LABS: Potassium 4.5 mEq/L (3.6-5.0)
[2017-08-21 12:44] LABS: Albumin 3.9 g/dL (3.2-5.5); Bilirubin Direct 0.1 mg/dL (0-0.2); Bilirubin Total 0.8 mg/dL (0.3-1.2); Magnesium 2.1 mg/dL (1.8-2.5)
[2017-08-21 12:46] LABS: CKMB Creatine Kinase MB 9.8 ng/ml (0.3-4.0)
--- NOTE | 2017-08-21 12:49 | RAD REPORT ---
EXAM DESCRIPTION: Joe Single View08/21/2017 12:40 pm CLINICAL HISTORY: Chest pain COMPARISON: May 2017 FINDINGS: Mild bilateral pulmonary opacities are present. Moderate to large left and moderate right pleural effusions are present. The heart is enlarged. A central venous catheter remains in place. IMPRESSION: These findings most likely represent CHF
[2017-08-21] MEDS ORDERED: ASPIRIN 81 MG CHEWABLE TABLET ONE (15:00)
[2017-08-21] MEDS ORDERED: ONDANSETRON 4 MG/2 ML VIAL ONE (15:01)
[2017-08-21] MEDS ORDERED: MORPHINE 4 MG/ML SYR ONE (15:01)
--- NOTE | 2017-08-21 16:01 | ER ---
Nurse's Notes [facility] Name: Yamile Brooke Age: 47 yrs Sex: Female : 1970 Arrival Date: 08/21/2017 Time: 11:38 Bed 19 Private MD: Vasile Schofield Diagnosis: Acute combined systolic (congestive) and diastolic (congestive) heart failure;End stage renal disease;Volume overload Presentation: 08/21 11:39 Presenting complaint: Patient states: Substernal chest pain, SOB, nonproductive cough, hb and pain with cough x 3 days. Denies fever. Transition of care: patient was not received from another setting of care. Onset of symptoms was August 18, 2017. Risk Assessment: Do you want to hurt yourself or someone else? Patient reports no desire to harm self or others. 11:39 Method Of Arrival: Wheelchair hb 11:39 Acuity: ARIE 3 hb 18:58 Initial Sepsis Screen: Does the patient meet any 2 criteria? RR > 20 per min. HR > 90 aj1 bpm. Yes Does the patient have a suspected source of infection? Yes: Other: non productive cough. Care prior to arrival: None. 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 - Social history:: Smoking status: Patient/guardian denies using tobacco. - Ebola Screening: : Patient denies travel to an Ebola-affected area in the 21 days before illness onset. Screenin:55 Abuse screen: Denies threats or abuse. Denies injuries from another. Nutritional aj1 screening: No deficits noted. Tuberculosis screening: No symptoms or risk factors identified. 20:29 Fall Risk None identified. bp Assessment: 11:55 General: Appears uncomfortable, Behavior is calm, cooperative, appropriate for age. aj1 Pain: Complains of pain in anterior aspect of left upper chest and mid-sternal area Pain does not radiate. Pain currently is 6 out of 10 on a pain scale. Quality of pain is described as dull, Pain began 2 days ago Is continuous, Aggravated by deep breathing. Neuro: Level of Consciousness is awake, alert, obeys commands, Oriented to person, place, time, situation, Speech is normal, Facial symmetry appears normal. Cardiovascular: Reports chest pain, nausea, shortness of breath, Denies diaphoresis, palpitations, syncope, vomiting, Heart tones S1 S2 present Patient's skin is warm and dry. Rhythm is sinus tachycardia Chest pain is described as Pain is 6 out of 10 on a pain scale. quality is dull is located in left anterior chest wall substernal area. Respiratory: Airway is patent Respiratory effort is even, unlabored, Respiratory pattern is regular, symmetrical, Breath sounds are diminished bilaterally. GI: No signs and/or symptoms were reported involving the gastrointestinal system. Abdomen is non-distended, Abd is soft and non tender X 4 quads. Reports nausea. : No signs and/or symptoms were reported regarding the genitourinary system. EENT: No signs and/or symptoms were reported regarding the EENT system. Derm: No signs and/or symptoms reported regarding the dermatologic system. Skin is pink, warm \T\ dry. normal. Musculoskeletal: No signs and/or symptoms reported regarding the musculoskeletal system. Circulation, motion, and sensation intact. 13:25 Reassessment: Patient appears in no apparent distress at this time. No changes from aj1 previously documented assessment. Patient and/or family updated on plan of care and expected duration. Pain level reassessed. Patient is alert, oriented x 3, equal unlabored respirations, skin warm/dry/pink. 14:30 Reassessment: Patient appears in no apparent distress at this time. No changes from aj1 previously documented assessment. Patient and/or family updated on plan of care and expected duration. Pain level reassessed. Patient is alert, oriented x 3, equal unlabored respirations, skin warm/dry/pink. 14:30 Neuro:. Cardiovascular: Patient's skin is warm and dry. Rhythm is sinus tachycardia. aj1 Respiratory:. Respiratory: Reports shortness of breath cough that is non-productive, orthopnea. GI: Abdomen is non-distended. Derm: Skin is. 15:30 Reassessment: Patient appears in no apparent distress at this time. No changes from aj1 previously documented assessment. Patient and/or family updated on plan of care and expected duration. Pain level reassessed. Patient is alert, oriented x 3, equal unlabored respirations, skin warm/dry/pink. 15:45 Reassessment: Notified Cheikh Cristobal NP that we have been unable to re-establish IV aj1 access, states he will see the patient and start an EJ IV access. 16:05 Reassessment: Patient appears in no apparent distress at this time. No changes from aj1 previously documented assessment. Patient and/or family updated on plan of care and expected duration. Pain level reassessed. Patient is alert, oriented x 3, equal unlabored respirations, skin warm/dry/pink. 17:09 Reassessment: Admission pending provider starting IV access. aj1 17:10 Reassessment: Patient appears in no apparent distress at this time. No changes from aj1 previously documented assessment. Patient and/or family updated on plan of care and expected duration. Pain level reassessed. Patient is alert, oriented x 3, equal unlabored respirations, skin warm/dry/pink. 18:30 Reassessment: Patient states that she is hungry. Patient given a sandwich and chips. aj1 18:35 Reassessment: Patient and/or family updated on plan of care and expected duration. Pain aj1 level reassessed. General: Appears in no apparent distress. comfortable, Behavior is calm, cooperative. Neuro: Level of Consciousness is awake, alert, obeys commands, Speech is normal, Facial symmetry appears normal. Cardiovascular: Heart tones S1 S2 present Patient's skin is warm and dry. Respiratory: Airway is patent Respiratory effort is even, unlabored, Respiratory pattern is regular, symmetrical, Breath sounds are diminished bilaterally. GI: Abdomen is non-distended. Derm: Skin is pink, warm \T\ dry. normal. Musculoskeletal: Circulation, motion, and sensation intact. 19:00 Reassessment: RECD REPORT FROM YAMILEX ZARAGOZA. 47YO BF P/W FLUID OVERLOAD AND MALAISE. ADMIT bp IN PROCESS FOR ESRD AND COMBINED CHF. PT TO BE DIALYZED AFTER ADMIT. VS STABLE ON MONITOR, FAMILY AT B/S. Vital Signs: 11:42 BP 160 / 97; Pulse 107; Resp 22; Temp 99.2(O); Pulse Ox 94% on R/A; Pain 7/10; hb 13:19 BP 142 / 90; Pulse 95; Resp 19; Temp 98.2; Pulse Ox 93% on R/A; aj1 15:15 BP 142 / 90; Pulse 88; Resp 25; Pulse Ox 96% ; aj1 16:07 BP 137 / 87; Pulse 90; Resp 22; Pulse Ox 98% ; aj1 17:10 BP 147 / 89; Pulse 99; Resp 20; Pulse Ox 95% ; aj1 19:33 BP 151 / 96; Pulse 87; Resp 20; Pulse Ox 97% on R/A; mt 20:00 BP 168 / 93; Pulse 92; Resp 16; Pulse Ox 96% ; bp ED Course: 11:38 Patient arrived in ED. kk3 11:38 Vasile Schofield MD is Private Physician. kk3 11:42 Triage completed. hb 11:43 Arm band placed on right wrist. hb 11:50 Ignacio Cristobal NP is PHCP. pm1 11:50 Cesar Landrum MD is Attending Physician. pm1 11:54 EKG done, by shop tech. reviewed by Ignacio Cristobal NP. at1 11:55 Patient has correct armband on for positive identification. quality assurance monitor final on. Pulse aj1 ox on. NIBP on. 11:55 No provider procedures requiring assistance completed. Inserted saline lock: 22 gauge aj1 in right antecubital area, using aseptic technique. Blood collected. Patient maintains SpO2 saturation greater than 95% on room air. 12:14 Gaby Borrero RN is Primary Nurse. aj1 12:37 X-ray completed. Portable x-ray completed in exam room. Patient tolerated procedure jb2 well. 12:40 XRAY Chest (1 view) In Process Unspecified. EDMS 15:30 IV infiltrated, IV discontinued, cannula intact, bleeding controlled, site without aj1 redness, swelling or drainage. Covered with 2x2 and secured with tape. 15:33 Missed attempt(s): 22 gauge in right hand. aj1 15:35 Missed attempt(s): 22 gauge in right hand. aj1 15:40 Missed attempt(s): 22 gauge by MILA Singleton. aj1 15:43 Missed attempt(s): 22 gauge by MILA Singleton. aj1 16:00 Vasile Schofield MD is Hospitalizing Provider. pm1 19:07 Primary Nurse role handed off by Gaby Borrero, MILA bp 19:07 Heber Gandara, RN is Primary Nurse. bp Administered Medications: 15:29 Drug: Aspirin Chewable Tablet 324 mg Route: PO; aj1 19:10 Follow up: Response: No adverse reaction bp 17:55 Drug: Zofran 4 mg Route: IVP; Site: left jugular; aj1 19:10 Follow up: Response: No adverse reaction bp Outcome: 16:01 Decision to Hospitalize by Provider. pm1 20:36 Condition: stable bp 20:36 Instructed on the need for admit. 20:41 Admitted to Med/surg accompanied by tech, family with patient, via stretcher, room 229, bp with oxygen, with chart, Report called to JOHN ZARAGOZA 21:02 Patient left the ED. bp Signatures: Dispatcher [employer] EDMS Gaby Borrero, MILA RN aj1 Ravinder Ashraf jb2 Alana jolly, screedman/laborer EKG Tat1 Ignacio Cristobal, CHOCOLATIER CHOCOLATIER pm1 Sadie Hawkins, RN RN Elvira Cotton kk3 Taylor Cancino ne Heber Gandara, RN RN bp Corrections: (The following items were deleted from the chart) 18:56 14:30 Reassessment: Patient appears in no apparent distress at this time. No changes aj1 from previously documented assessment. Patient and/or family updated on plan of care and expected duration. Pain level reassessed. Patient is alert, oriented x 3, equal unlabored respirations, skin warm/dry/pink. aj1
--- NOTE | 2017-08-21 16:01 | EDPHYS ---
Physician Documentation [facility] Name: Yamile Brooke Age: 47 yrs Sex: Female : 1970 Arrival Date: 08/21/2017 Time: 11:38 Bed 19 Private MD: Vasile Schofield ED Physician Cesar Landrum HPI: 08/21 12:00 This 47 yrs old Black Female presents to ER via Wheelchair with complaints of Chest pm1 Pain, Shortness Of Breath. 12:00 The patient or guardian reports chest pain that is located primarily in the mid-sternal pm1 area. Onset: this morning. 12:00 The pain does not radiate. Associated signs and symptoms: Pertinent positives: cough, pm1 shortness of breath, Pertinent negatives: diaphoresis, dizziness, nausea, vomiting. The chest pain is described as aching. Duration: The patient or guardian reports a single episode, that is still ongoing. Modifying factors: The symptoms are alleviated by Sitting up straight improves her shortness of breath and chest pain. the symptoms are aggravated by lying flat. The patient has experienced similar episodes in the past, multiple times. patient PCP [facility] and [employer] [facility]. Patient ESRD Hemodialysis on MWF. Patient has not missed any dialysis sessions. 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 - Social history:: Smoking status: Patient/guardian denies using tobacco. - Ebola Screening: : Patient denies travel to an Ebola-affected area in the 21 days before illness onset. ROS: 13:00 Constitutional: Negative for fever, chills, and weight loss, Eyes: Negative for injury, pm1 pain, redness, and discharge, ENT: Negative for injury, pain, and discharge, Neck: Negative for injury, pain, and swelling. 13:00 Abdomen/GI: Negative for abdominal pain, nausea, vomiting, diarrhea, and constipation, Back: Negative for injury and pain, MS/Extremity: Negative for injury and deformity, Skin: Negative for injury, rash, and discoloration, Neuro: Negative for headache, weakness, numbness, tingling, and seizure. 13:00 Cardiovascular: Positive for chest pain, orthopnea, Negative for edema, palpitations. 13:00 Respiratory: Positive for cough, with no reported sputum, shortness of breath, Negative for wheezing. Exam: 13:00 Constitutional: This is a well developed, well nourished patient who is awake, alert, pm1 and in no acute distress. Head/Face: Normocephalic, atraumatic. Eyes: Pupils equal round and reactive to light, extra-ocular motions intact. Lids and lashes normal. Conjunctiva and sclera are non-icteric and not injected. Cornea within normal limits. Periorbital areas with no swelling, redness, or edema. ENT: Nares patent. No nasal discharge, no septal abnormalities noted. Tympanic membranes are normal and external auditory canals are clear. Oropharynx with no redness, swelling, or masses, exudates, or evidence of obstruction, uvula midline. Mucous membranes moist. Neck: Trachea midline, no thyromegaly or masses palpated, and no cervical lymphadenopathy. Supple, full range of motion without nuchal rigidity, or vertebral point tenderness. No Meningismus. Chest/axilla: Normal chest wall appearance and motion. Nontender with no deformity. No lesions are appreciated. Juarez catheter present to right chest Cardiovascular: Regular rate and rhythm with a normal S1 and S2. No gallops, murmurs, or rubs. No pulse deficits. No ECG changes from 05/29/17 ECG. Bruit audible and palpable on left arm fistula Respiratory: Lungs have equal breath sounds bilaterally, clear to auscultation and percussion. No rales, rhonchi or wheezes noted. No increased work of breathing, no retractions or nasal flaring. Abdomen/GI: Soft, non-tender, with normal bowel sounds. No distension or tympany. No guarding or rebound. No evidence of tenderness throughout. Back: No spinal tenderness. No costovertebral tenderness. Full range of motion. Skin: Warm, dry with normal turgor. Normal color with no rashes, no lesions, and no evidence of cellulitis. MS/ Extremity: Pulses equal, no cyanosis. Neurovascular intact. Full, normal range of motion. 13:00 Neuro: Orientation: is normal, Motor: is normal, moves all fours. Vital Signs: 11:42 BP 160 / 97; Pulse 107; Resp 22; Temp 99.2(O); Pulse Ox 94% on R/A; Pain 7/10; hb 13:19 BP 142 / 90; Pulse 95; Resp 19; Temp 98.2; Pulse Ox 93% on R/A; aj1 15:15 BP 142 / 90; Pulse 88; Resp 25; Pulse Ox 96% ; aj1 16:07 BP 137 / 87; Pulse 90; Resp 22; Pulse Ox 98% ; aj1 17:10 BP 147 / 89; Pulse 99; Resp 20; Pulse Ox 95% ; aj1 19:33 BP 151 / 96; Pulse 87; Resp 20; Pulse Ox 97% on R/A; mt 20:00 BP 168 / 93; Pulse 92; Resp 16; Pulse Ox 96% ; bp MDM: 11:51 Patient medically screened. pm1 15:30 Counseling: I had a detailed discussion with the patient and/or guardian regarding: the pm1 historical points, exam findings, and any diagnostic results supporting the discharge/admit diagnosis, the need for further work-up and treatment in the hospital. 17:00 Physician consultation: Braden Hill MD regarding consult, patient's condition, Dialysis pm1 nurse is still present in the hospital. Patient will be able to get dialysis today. 18:04 Data reviewed: vital signs. Data interpreted: Pulse oximetry: on room air is 95 %. pm1 Interpretation: normal. 18:11 Physician consultation: Vasile Schofield MD was called at 18:11, was contacted at 18:11, and pm1 will see patient in ED, shortly. 18:20 Physician consultation: Vasile Schofield MD in the emergency department to see patient at pm1 18:20. 08/21 11:56 Order name: Basic Metabolic Panel; Complete Time: 12:59 pm1 08/21 11:56 Order name: BNP; Complete Time: 12:50 pm1 08/21 11:56 Order name: CBC with Diff; Complete Time: 12:22 pm1 08/21 11:56 Order name: Ckmb; Complete Time: 12:59 pm08/21 11:56 Order name: CPK; Complete Time: 12:59 pm08/21 11:56 Order name: LFT's; Complete Time: 12:59 pm08/21 11:56 Order name: Magnesium; Complete Time: 12:59 pm08/21 11:56 Order name: PT-INR; Complete Time: 12:50 pm08/21 11:56 Order name: Ptt, Activated; Complete Time: 12:50 pm08/21 11:56 Order name: Troponin (emerg Dept Use Only); Complete Time: 12:50 pm08/21 11:56 Order name: XRAY Chest (1 view); Complete Time: 12:50 pm08/21 12:02 Order name: Blood Culture Adult (2) pm08/21 11:56 Order name: EKG; Complete Time: 11:56 pm08/21 11:56 Order name: Cardiac monitoring; Complete Time: 12:12 pm08/21 11:56 Order name: EKG - Nurse/Tech; Complete Time: 12:12 pm08/21 11:56 Order name: IV Saline Lock; Complete Time: 12:12 pm08/21 11:56 Order name: Labs collected and sent; Complete Time: 12:12 pm08/21 11:56 Order name: O2 Per Protocol; Complete Time: 12:12 pm08/21 11:56 Order name: O2 Sat Monitoring; Complete Time: 12:13 pm08/21 18:32 Order name: Diet Renal; Complete Time: 18:32 aj1 Administered Medications: 15:29 Drug: Aspirin Chewable Tablet 324 mg Route: PO; aj1 19:10 Follow up: Response: No adverse reaction bp 17:55 Drug: Zofran 4 mg Route: IVP; Site: left jugular; aj1 19:10 Follow up: Response: No adverse reaction bp Disposition: 08/22 10:50 Co-signature as Attending Physician, Cesar Landrum MD I agree with the assessment and heather plan of care. Disposition: 08/21/17 16:01 Hospitalization ordered by Vasile Schofield for Inpatient Admission. Preliminary diagnosis are Acute combined systolic (congestive) and diastolic (congestive) heart failure, End stage renal disease, Volume overload. - Bed requested for Telemetry/MedSurg (Inpatient). - Status is Inpatient Admission. bp - Condition is Stable. - Problem is new. - Symptoms have improved. UTI on Admission? No Signatures: Dispatcher [employer] EDGaby Barraza, RN RN aj1 Shoshana Gandara RN RN Cesar Davila MD MD cha Marinas, Patrick, ELECTRIC POWER LINE EXAMINER ELECTRIC POWER LINE EXAMINER pm1 Sadie Hawkins RN RN Heber Gandara RN RN bp Corrections: (The following items were deleted from the chart) 08/21 19:21 16:01 Hospitalization Ordered by Vasile Schofield MD for Inpatient Admission. Preliminary dw diagnosis is Acute combined systolic (congestive) and diastolic (congestive) heart failure; End stage renal disease; Volume overload. Bed requested for Telemetry/MedSurg (Inpatient). Status is Inpatient Admission. Condition is Stable. Problem is new. Symptoms have improved. UTI on Admission? No. pm1 21:02 19:21 08/21/2017 16:01 Hospitalization Ordered by Vasile Schofield MD for Inpatient bp Admission. Preliminary diagnosis is Acute combined systolic (congestive) and diastolic (congestive) heart failure; End stage renal disease; Volume overload. Bed requested for Telemetry/MedSurg (Inpatient). Status is Inpatient Admission. Condition is Stable. Problem is new. Symptoms have improved. UTI on Admission? No. dw
--- NOTE | 2017-08-21 16:09 | EKG ---
Test Date: 2017-08-21 Test Time: 11:48:26 Medical Surgical Tech: NATHALIA MEASUREMENT RESULTS: Intervals: Rate: 111 WA: 172 QRSD: 94 QT: 346 QTc: 470 Tom Bean: P: 51 WA: 172 QRS: -11 T: 149 INTERPRETIVE STATEMENTS: Sinus tachycardia Septal infarct, age undetermined Inferior infarct, age undetermined ST & T wave abnormality, consider lateral ischemia Abnormal ECG Compared to ECG 05/30/2017 06:44:19 Sinus rhythm no longer present Myocardial infarct finding still present Electronically Signed On 08-21-17 16:08:42 CDT by Hany Lo
[2017-08-21 21:39] VITALS: BMI 23.1
[2017-08-21] MEDS ORDERED: GLUCAGON 1 MG/VIAL IM PRN (21:53)
[2017-08-21] MEDS ORDERED: D50W 25 GM/50 ML SYRINGE IV PRN (21:53)
[2017-08-21] MEDS ORDERED: ACETAMINOPHEN 500 MG TAB PO PRN (21:53)
[2017-08-21] MEDS: INSULIN -REGULAR HUMAN 50 UNIT/0.5 ML ML SQ SCH (21:53)
--- NOTE | 2017-08-22 03:03 | HP ---
Date of Admission: 08/21/2017 Chief Complaint: Shortness of breath. History Of Present Illness: This is a 47-year-old female patient with multiple comorbidities includi ng end-stage renal disease, on hemodialysis and chronic systolic congestive heart failure, had her la st dialysis on Monday. The patient says that her dialysis was for 3 hours instead of 3-1/2 hours and the reason for that was nurse who was providing dialysis at the [facility] put by mistake wrong time and it was 30 minute short dialysis compared to her usual time. She was doing fine until yeste rday. She started to have some problem with shortness of breath. Today it got worse associated with some chest pain in the center of the chest and little bit left of the sternum area. This pain was a ssociated only with deep breathing. The patient says she has some cough and coughs up some mucus but does not know what color as she is blind and not able to see. She called my office with this concer n and she was advised to come to the emergency room. After she was evaluated in the ER, she was admi tted to the hospital under my service. I saw her in the emergency room. Allergies: TRAMADOL. Medications: List reviewed. Review of Systems: Respiratory: As mentioned above. All other systems reviewed and negative. Social History: Negative for smoking or alcohol use. Family History: Significant for hypertension, diabetes, coronary artery disease pulmonary embolism, and atrial fibrillation. Past Surgical History: Significant for hysterectomy, coronary artery angioplasty with stent placemen t in June 2016. Past Medical History: Significant for hypertension; end-stage renal disease, on hemodialysis; chroni c systolic congestive heart failure with low ejection fraction around 35-39% in October of last year b ut then last echocardiogram from May of this year shows normal ejection fraction. Past medical his tory is also significant for bilateral pleural effusion, diabetes mellitus, hyperlipidemia, coronary artery disease, DVT of right arm, peritonitis while she was on peritoneal dialysis, anemia due to chr onic kidney disease. Physical Examination: Vital Signs: Initial temperature 97.7, pulse 82, respiratory rate 18, blood pressure 182/97, height 5 feet 8 inches, weight 182 pounds. General: Awake, alert, oriented, not in distress. HEENT: Head atraumatic, normocephalic. Conjunctivae nonerythematous. Sclerae white. Mouth, no thr ush or edema noted. Ears/Nose, no mass, lesion, discharge noted. Neck: Supple. No JVD, lymph nodes, bruit, thyromegaly noted. Lungs: Diminished air entry in lower lung cervantes. Not in any respiratory distress. Heart: Normal heart sounds, no murmur or gallop. Abdomen: Soft, bowel sounds normal. No guarding, rigidity, tenderness, mass, hepatosplenomegaly, dis tention, or bruit noted. Extremities: No leg edema. No calf tenderness. Skin: No rash, ulcer, cellulitis. Lymphatics: No lymph node enlargement in neck, supraclavicular, infraclavicular region. Neuro: No focal neurological deficit. Chest: Unremarkable. External Genitalia: Deferred. Rectal: Deferred. Diagnostic Data: Chest x-ray shows mild bilateral pulmonary opacity, moderate to large left and mode rate right pleural effusion present. Electrocardiogram shows sinus tachycardia; septal infarct, age undetermined; inferior infarct, age undetermined. Laboratory Data: White count 6.2, hemoglobin 11.8, platelets 141. Sodium 137, potassium 4.5, chlori de 102, bicarb 23. BUN 58, creatinine 9.45, glucose 103. Liver function tests unremarkable. BNP 33 42, troponin 0.39. Impression: 1.Congestive heart failure, chronic, systolic, with acute exacerbation. 2.Bilateral pleural effusion. 3.End-stage renal disease, on hemodialysis. 4.Anemia in chronic kidney disease. 5.Coronary artery disease. 6.Hypertension. 7.Type 2 diabetes mellitus. 8.Hyperlipidemia. Plan: Admit the patient to hospital for further evaluation and management of this problem. The karolyn ent is appropriate for inpatient and is expected to spend 2 midnights in the hospital. We will go ah ead and consult med spec for dialysis needs. Continue home medications per order. I will see he r tomorrow for followup. We will manage diabetes with sliding scale. Dialysis support will be provi ded per med spec. I will see her tomorrow for followup. VINCENT/MODL Voice ID: [id number]
[2017-08-22 04:07] LABS: Absolute Lymphocytes (CBC) 0.9 K/uL (0.7-4.9); Absolute Monocytes 0.5 K/uL (0.1-1.3); Absolute Neutrophil 2.3 K/uL (1.8-8.0); Basophils % 0.8 % (0-1.3); Eosinophils % 4.9 % (0-4.4); Lymphocytes % 22.8 % (15.3-44.8); MCH 27.8 pg (27.0-35.0); MCV 85.7 fL (80-100); MPV 8.7 fL (7.6-11.3); Monocytes % 12.8 % (3.3-12.3); RBC Red Blood Cell Count 3.85 M/uL (3.86-4.86)
[2017-08-22 04:37] LABS: Potassium 3.8 mEq/L (3.6-5.0)
[2017-08-22 05:17] VITALS: O2SAT 95
[2017-08-22] MEDS: INSULIN -REGULAR HUMAN 50 UNIT/0.5 ML ML SQ SCH ×2 (07:30→11:30)
[2017-08-22] MEDS ORDERED: LORazepam 2 MG/ML VIAL IV ONE (08:25)
[2017-08-22] MEDS ORDERED: NIFEDIPINE XL 60 MG TABLET PO SCH (09:00)
[2017-08-22] MEDS ORDERED: VALSARTAN 160 MG TAB PO SCH (09:00)
[2017-08-22] MEDS ORDERED: GABAPENTIN 100 MG CAP PO SCH (09:00)
[2017-08-22] MEDS ORDERED: CARVEDILOL 25 MG TAB PO SCH (09:00)
[2017-08-22 14:09] VITALS: BP 123/77; TEMP 96.9
--- NOTE | 2017-08-22 22:04 | P.CNS ---
Date of Consult: 08/22/17 Reason for Consult: ESRD Requesting Physician: Vasile Schofield Primary Care Provider: Dr. Schofield Chief Complaint: Dyspnea History of Present Illness: 47 yo BM CKD, HTN presented to the ER with 24 hours of moderate, progressive dyspnea in the setting of CHF. She was scheduled for HD yesterday and had a chair available by 12:30pm but chose to go to the ER instead. She was dialyzed last night and is feeling better except for anxiety. 12:00 This 47 yrs old Black Female presents to ER via Wheelchair with complaints of Chest pm1 Pain, Shortness Of Breath. 12:00 The patient or guardian reports chest pain that is located primarily in the mid-sternal pm1 area. Onset: this morning. 12:00 The pain does not radiate. Associated signs and symptoms: Pertinent positives: cough, pm1 shortness of breath, Pertinent negatives: diaphoresis, dizziness, nausea, vomiting. The chest pain is described as aching. Duration: The patient or guardian reports a single episode, that is still ongoing. Modifying factors: The symptoms are alleviated by Sitting up straight improves her shortness of breath and chest pain. the symptoms are aggravated by lying flat. The patient has experienced similar episodes in the past, multiple times. 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 Patient ESRD Hemodialysis on MWF. Patient has not missed any dialysis sessions. Allergies tramadol Allergy (Mild, Verified 12/20/16 09:53) Unknown Home medications list reviewed: Yes Home Medications: Carvedilol 1.5 tab PO BID 10/12/16 Valsartan 160 mg PO BID 10/12/16 Gabapentin [Neurontin*] 100 mg PO BID 03/09/17 Hydralazine [Apresoline*] 10 mg PO BID #60 tab 08/22/17 Nifedipine [Nifedipine ER] 60 mg PO BID 08/22/17 - Past Medical/Surgical History Diabetic: Yes -: HTN -: DM-2 -: Dyslipidemia -: anemia -: esrd -: hysterectomy -: x2 -: [facility] (2016) - Family History Mother Medical History: Hypertension Father Medical History: Heart disease, Hypertension, Diabetes - Social History Smoking Status: Never smoker Alcohol use: No CD- Drugs: No Caffeine use: Yes Place of Residence: Home Review of Systems 10-point ROS is otherwise unremarkable General: Weakness, Malaise Physical Examination Temp Pulse Resp BP Pulse Ox 96.9 F 95 H 18 123/77 95 08/22/17 12:00 08/22/17 12:00 08/22/17 12:00 08/22/17 12:00 08/22/17 12:00 General: Oriented x3, Cooperative HEENT: Mucous membr. moist/pink Neck: Supple Respiratory: Clear to auscultation bilaterally Cardiovascular: Regular rate/rhythm, No rubs, Edema Gastrointestinal: Soft and benign, Non-distended, No guarding Musculoskeletal: No clubbing, No contractures Integumentary: No rashes, No cyanosis Neurological: Normal speech Blood work reviewed in the chart. Cr 6.22 Imagings Data: EXAM DESCRIPTION: Joe Single View08/21/2017 12:40 pm CLINICAL HISTORY: Chest pain COMPARISON: May 2017 FINDINGS: Mild bilateral pulmonary opacities are present. Moderate to large left and moderate right pleural effusions are present. The heart is enlarged. A central venous catheter remains in place. IMPRESSION: These findings most likely represent CHF Conclusions/Impression: A/ ESRD on HD MWF. HTN with CKD. Diastolic CHF, A/C. Anemia in CKD. CARMELITA/ Secondary HyperPTH. P/ Continue current POC and Medications. Feeling better after acute HD last night. Ativan 0.5mg IV X1 dose. Restart home medications as indicated. Epo started. Am labs. Daily weight. No NSAIDs. Thank you kindly for the consultation.
--- NOTE | 2017-08-23 06:18 | DS ---
Date of Discharge: 08/22/2017 Disposition: Discharged to go home. Physical Examination: HEENT: Unremarkable. Lungs: Clear to auscultation. No rhonchi or rales. Heart: Sounds normal. Abdomen: Soft. Bowel sounds normal. No guarding, rigidity, tenderness, or distention. Extremities: No leg edema. Discharge Medications And Instructions: 1.Continue all prior home medications. 2.Follow up at my office in 2 weeks. 3.Take hydralazine 10 mg 2 times a day. 4.Go for dialysis regularly. Labs: Today white count 4, hemoglobin 10.7, platelets 121. Sodium 137, potassium 3.8, chloride 98, bicarb 28, BUN 30, creatinine 6.22, glucose 126. Hospital Course: This is a 47-year-old female patient with multiple comorbidities, came into emergen cy room with complaints of chest pain and shortness of breath. Please see dictated H and P for more information. After patient was evaluated in the ER, she was admitted to the hospital. Dialysis supp ort was provided with help of home performance consultant last night. This morning, she was feeling fine, back to er normal self. Pow[employer] And [employer] Canning Leader saw her and released her to go home from nephrology point of view. Med roxana, the patient is stable for discharge. Her blood pressure was elevated and I instructed her to take hydralazine per order. Final Diagnoses: 1.Congestive heart failure, chronic, systolic, with acute exacerbation. 2.End-stage renal disease, on hemodialysis. 3.Coronary artery disease. 4.Hypertension. 5.Anemia due to chronic kidney disease. 6.Diabetic retinopathy. VINCENT/MODL Voice ID: [id number] Report ID: [id number]
== END 2017-08-22 13:00 | disposition home or self-care (01) ==
LOC: ER 11:36 → INTOOBSV 16:01 → ERHOLD 16:01 → 2ND 20:07
PROVIDERS: ADMIT Internal Medicine; ATTEND Internal Medicine
PROC: 5A1D70Z Performance of Urinary Filtration, Intermittent, Less than 6 Hours Per Day (ICD-10-PCS; principal; 2017-08-21)
DX: I13.2 Hypertensive heart and chronic kidney disease with heart failure and with stage 5 chronic kidney disease, or end stage renal disease (principal); I50.23 Acute on chronic systolic (congestive) heart failure; N18.6 End stage renal disease; E11.22 Type 2 diabetes mellitus with diabetic chronic kidney disease; I25.10 Atherosclerotic heart disease of native coronary artery without angina pectoris; D63.1 Anemia in chronic kidney disease; E11.319 Type 2 diabetes mellitus with unspecified diabetic retinopathy without macular edema; E78.5 Hyperlipidemia, unspecified; Z95.5 Presence of coronary angioplasty implant and graft
CPT/HCPCS: 36415; 71045; 80048; 80076; 82550; 82553; 82962; 83735; 83880; 84484; 85025; 85610; 85730; 87040; 87205; 90935; 93005; 96374; 99285; G0378; J2405

== ENCOUNTER 2017-11-14 10:25 | Inpatient (IN) | payer OTHER ==
--- OUTSIDE RECORDS SUMMARY | 2017-11-14 10:29 | XMS REPORT | Clinical Summary ---
:1970 Author Organization [facility] Address [address] [place] [address] Phone Care Team Providers Name Role Phone Unavailable Primary Care Provider Unavailable Allergies Active Allergy Reactions Severity Noted Date Comments Tramadol Nausea And Vomiting, Other (See 06/06/2016 dizziness Comments) Current Medications Prescription Sig. Disp. Refills Start Date End Date Status calcitriol Take 0.25 mcg Active (ROCALTROL) 0.25 by mouth daily. MCG capsule valsartan (DIOVAN) Take 160 mg by Active 160 MG tablet mouth daily. carvedilol (COREG) Take 1.5 60 tablet 0 01/13/2017 01/13/2018 Active 25 MG tablet tablets (37.5 mg total) by mouth 2 (two) times daily. clopidogrel Take 1 tablet 30 tablet 2 01/13/2017 01/13/2018 Active (PLAVIX) 75 mg (75 mg total) tablet by mouth daily. melatonin 3 mg Tab Take 1 tablet 10 tablet 0 01/25/2017 Active tablet (3 mg total) by mouth every night as needed. VELPHORO 500 mg Take 1 tablet 01/13/2017 Active Chew by mouth 2 (two) times daily . SENSIPAR 30 mg Take 30 mg by 12/13/2016 Active tablet mouth daily . apixaban (ELIQUIS) Take 5 mg by Active 5 mg Tab tablet mouth 2 (two) times daily. sevelamer Take 2,400 mg 01/13/2017 Discontinued (RENVELA) 800 mg by mouth 3 tablet (three) times daily with meals. aspirin 81 MG Take 1 tablet 0 06/09/2016 06/09/2017 chewable tablet (81 mg total) by mouth daily. carvedilol (COREG) Take 1 tablet 60 tablet 0 06/09/2016 01/13/2017 Discontinued 25 MG tablet (25 mg total) by mouth 2 (two) times daily. ticagrelor Take 1 tablet 60 tablet 0 06/09/2016 01/13/2017 Discontinued (BRILINTA) 90 mg (90 mg total) Tab tablet by mouth 2 (two) times daily. hydrALAZINE 50 mg 3 (three) 05/30/2016 02/23/2017 Discontinued (APRESOLINE) 50 MG times daily tablet Take if SBP>140. meclizine Take 1 tablet 30 tablet 0 01/13/2017 01/23/2017 (ANTIVERT) 12.5 mg (12.5 mg total) tablet by mouth 3 (three) times daily as needed for Dizziness for up to 10 days. warfarin Take 1 tablet 10 tablet 0 01/13/2017 02/23/2017 Discontinued (COUMADIN) 7.5 MG (7.5 mg total) tablet by mouth every evening. Active Problems Problem Noted Date Anemia 02/23/2017 Hydrocephalus 02/23/2017 History of DVT (deep vein thrombosis) 02/22/2017 Headache 02/22/2017 Dizziness 02/22/2017 Nausea & vomiting 02/22/2017 AVF (arteriovenous fistula) ([facility]) 01/25/2017 Overview: Left-01/09/17 Ischemic cardiomyopathy 01/02/2017 Chronic hepatitis C without hepatic coma (HCC) 07/01/2016 ESRD (end stage renal disease) (HCC) 06/03/2016 Type 2 diabetes mellitus with complication (HCC) 06/03/2016 Essential hypertension 06/03/2016 CAD (coronary artery disease) Overview: Cath 06/03: LAD:Non critical CAD: mid 40% , 60% distal //dominant L Cx with 90 % mid-, 80% OM2 and OM3 disease); s/p mid LCx PCI (06/06) Resolved Problems Problem Noted Date Resolved Date Coronary artery disease involving [place] heart without 02/23/2017 02/23/2017 angina pectoris, unspecified vessel or lesion type VTE (venous thromboembolism) 01/03/2017 02/22/2017 Acute thrombosis of right brachial vein (HCC) 01/03/2017 02/22/2017 Acute pulmonary insufficiency 01/02/2017 01/25/2017 Acute hypoxemic respiratory failure (HCC) 01/02/2017 01/25/2017 SOB (shortness of breath) 01/01/2017 01/25/2017 Pleural effusion, bilateral 06/05/2016 02/22/2017 Chronic combined systolic and diastolic CHF (congestive 06/05/2016 02/22/2017 heart failure) ([facility]) Pre-transplant evaluation for ESRD (end stage renal disease) 06/03/201602/22 Acute systolic CHF (congestive heart failure), NYHA class 4 06/03/20162016 ([facility]) Hypertensive emergency 06/03/2016 01/25/2017 Encounters Date Type Specialty Care Team Description 09/05/2017 Documentation Transplant Araceli Reid RN 09/04/2017 Committee Review Transplant Hector Poe RN 09/04/2017 Abstract Transplant Hector Poe RN 08/16/2017 Telephone Transplant Rocío Sands Appointment M 08/09/2017 Telephone Transplant Rocío Sands Appointment M 07/10/2017 Orders Only Transplant Hector Poe, Awaiting organ call person status (Primary Dx);Pre-transplant evaluation for heart transplant;Ischemic cardiomyopathy 07/03/2017 Telephone Transplant Rocío Sands Appointment M 06/14/2017 Telephone Transplant Rocío Sands Appointment M 06/14/2017 Telephone Transplant ANTONIO Lopez (UPDATED COB) Gema 06/14/2017 Telephone Transplant ANTONIO Lopez (Need to Notified Gema [facility] of her Medicare part B coveraged) 06/13/2017 Telephone Transplant Hector Poe, Follow-up RN 04/28/2017 Telephone Transplant Hector Poe, Follow-up RN 04/12/2017 Documentation Transplant Gema Lopez 03/31/2017 Telephone Transplant Hector Poe, Follow-up RN 03/17/2017 Telephone Transplant Hector Poe, Follow-up RN 03/16/2017 Telephone Transplant Hector Poe, Follow-up RN 02/23/2017 Orders Only Transplant No Show 02/22/2017 - Hospital Encounter General Internal [place], Coronary artery 02/24/2017 Medicine MD Warren disease involving Consuelo, Bernadine [place] heart without MD Shun angina pectoris, unspecified vessel or lesion type;Dizziness;ESRD (end stage renal disease) (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) 02/21/2017 Anesthesia Event Jona Wolfe AA 02/21/2017 Procedure Pass 02/20/2017 Orders Only Fabi Parekh MD 02/08/2017 Abstract Transplant Rocío Sands 01/25/2017 Office Visit Cardiology Denton Ragland NP Chronic combined systolic and diastolic CHF (congestive heart failure) (HCC) (Primary Dx);Other insomnia 01/25/2017 Office Visit Cardiology Fabi Parekh Post-operative state MD Myesha (Primary Dx) 01/24/2017 Telephone Transplant Rocío Sands 01/23/2017 Telephone Transplant Rocío Sands 01/18/2017 Ancillary Orders Lab Niall Weaver MD 01/17/2017 Orders Only Transplant Hector Poe, Awaiting organ call person status (Primary Dx);Ischemic cardiomyopathy;At risk for osteoporosis;Pre-strickland splant evaluation for heart transplant 01/09/2017 Procedure Pass 01/09/2017 Surgery Fabi Parekh CREATION,A-V FISTULA MD Myesha 01/08/2017 Anesthesia Event Nguyễn Kenyon MD 01/04/2017 Procedure Pass 01/04/2017 Surgery Fabi Parekh REMOVAL,CATHETER MD Myesha PERITONEAL 01/03/2017 Anesthesia Event Messi Dunlap AA 01/01/2017 - Hospital Encounter General Internal Wanda Alexis ESRD (end stage renal 01/13/2017 Medicine MD Vidal disease) (HCC) Amrik (Primary Dx);MINNIE Espinoza MD (shortness of [place], breath);Coronary [place] Silva, artery disease of [place] heart with stable angina pectoris, unspecified vessel or lesion type (HCC);Chronic combined systolic and diastolic CHF (congestive heart failure) (HCC);Chronic hepatitis C without hepatic coma (HCC);Essential hypertension;Pleural effusion, bilateral;Pre-transpl ant evaluation for ESRD (end stage renal disease) 01/01/2017 Orders Only General Internal Medicine 12/13/2016 Ancillary Orders Lab Verena Carrero MD 12/12/2016 Ancillary Orders Lab Verena Carrero MD 12/12/2016 Ancillary Orders Lab Verena Carrero MD 12/12/2016 Ancillary Orders Lab Verena Carrero MD 12/12/2016 Ancillary Orders Lab Verena Carrero MD 12/12/2016 Ancillary Orders Lab Verena Carrero MD 12/12/2016 Ancillary Orders Lab Verena Carrero MD 12/12/2016 Ancillary Orders Lab Verena Carrero MD 12/12/2016 Outside Orders Critical Care Verena Carrero MD Pleural effusion Medicine (Primary Dx) 12/09/2016 Telephone Transplant Hector Poe, Follow-up RN 12/07/2016 Outside Orders Central Robinson Vigil MD Pre-transplant Scheduling evaluation for end stage renal disease (Primary Dx) 12/06/2016 Documentation Transplant Deidre Gonsalves RN 12/02/2016 Telephone Transplant Hector Poe, Follow-up RN after 11/13/2016 Social History Tobacco Use Types Packs/Day Years Used Date Never Smoker Smokeless Tobacco: Never Used Alcohol Use Drinks/Week oz/Week Comments No Sex Assigned at Date Recorded Not on file Last Filed Vital Signs Vital Sign Reading Time Taken Blood Pressure 158/78 02/23/2017 11:00 PM DISHWASHER PREPARER Pulse 74 02/23/2017 11:00 PM DISHWASHER PREPARER Temperature 36.4 C (97.5 F) 02/23/2017 11:00 PM DISHWASHER PREPARER Respiratory Rate 20 02/23/2017 11:00 PM DISHWASHER PREPARER Oxygen Saturation 97% 02/23/2017 11:24 PM DISHWASHER PREPARER Inhaled Oxygen Concentration - - Weight 69.7 kg (153 lb 10.6 oz) 02/23/2017 6:00 AM DISHWASHER PREPARER Height 172.7 cm (5' 8") 01/25/2017 10:14 AM DISHWASHER PREPARER Body Mass Index 23.36 02/23/2017 6:00 AM DISHWASHER PREPARER Plan of Treatment Health Maintenance Due Date Last Done Comments INFLUENZA VACCINE 12/11/2017 Implants Implanted Type Area Professor Of Environmental Studies Device Expiration Model / Identifier Date Serial / Lot Closure Sys Perclose Progl 6fr 56936-86 - [id number] Cardiovascular N/A: Groin BOWENS 12/10/2017 [id number] / Implanted: Qty: 1 on 06/06/2016 by Robinson Vigil MD LAB:VASC DEV / [id number] Promus Premier Stents-Coronary N/A: [place] 08/16/2017 [id number] / Implanted: Qty: 1 on 06/06/2016 by Robinson Vigil MD Coronary SCIENTIFIC / [id number] Synergy Stent 2.5mm X 16mm [place] 08/16/2017 [id number] / Implanted: Qty: 1 on 06/03/2016 by Robinson Vigil MD SCIENTIFIC / [id number] Perclose Proglide Closure Device BOWENS 12/10/2017 [id number] / Implanted: Qty: 1 on 06/03/2016 by Robinson Vigil MD VASCULAR / DEVICE [id number] Procedures Procedure Name Priority Date/Time Associated Comments Diagnosis CREATION,A-V FISTULA 01/09/2017 8:00 AM ESRD CDT HERNIORRHAPHY,VENTRA 01/04/2017 8:56 AM ESRD L CDT REMOVAL,CATHETER 01/04/2017 8:56 AM ESRD PERITONEAL CDT US GUIDE, VASCULAR Routine 01/01/2017 6:48 PM ESRD (end stage Results for this ACCESS CDT renal disease) procedure are in ([facility]) the results section. INSERT NON-TUNNEL CV Routine 01/01/2017 6:48 PM ESRD (end stage Results for this CATH CDT renal disease) procedure are in ([facility]) the results section. after 11/13/2016 Results RHYTHM STRIP - SCAN (02/27/2017 11:41 AM)Only the most recent of2 resultswithin the time period is included.POC-Glucose meter (02/23/2017 9:57 PM)Only the most recent of53 resultswithin the time period is included. Component Value Ref Range POC-Glucose Meter 78Comment: TESTED AT [address] 70 - 110 mg/dL [address] Specimen Performing Laboratory Blood [address] [address] TSH/Free T4 If Indicated (02/23/2017 3:01 PM) Component Value Ref Range TSH 0.30 (L) 0.35 - 4.94 uIU/mL Specimen Performing Laboratory Blood - Line, Venous [address] [address] C-Reactive Protein (02/23/2017 3:01 PM) Component Value Ref Range CRP 0.52 (H) 0.00 - 0.50 mg/dL Specimen Performing Laboratory Blood - Line, Venous [address] [address] CBC with platelet count + automated diff (02/23/2017 3:01 PM)Only the most recent of6 resultswithin the time period is included. Component Value Ref Range WBC 4.3 3.5 - 10.5 K/L RBC 2.57 (L) 3.93 - 5.22 M/L Hemoglobin 7.3 (L) 11.2 - 15.7 GM/DL Hematocrit 23.4 (L) 34.1 - 44.9 % MCV 91.1 79.4 - 94.8 fL MCH 28.4 25.6 - 32.2 pg MCHC 31.2 (L) 32.2 - 35.5 GM/DL RDW 15.1 (H) 11.7 - 14.4 % Platelets 184 150 - 450 K/CU MM MPV 10.8 9.4 - 12.3 fL nRBC 0 0 - 0 /100 WBC % Neutros 58 % % Lymphs 25 % % Monos 13 % % Eos 4 % % Baso 1 % # Neutros 2.50 1.56 - 6.13 K/L # Lymphs 1.07 (L) 1.18 - 3.74 K/L # Monos 0.55 (H) 0.24 - 0.36 K/L # Eos 0.17 0.04 - 0.36 K/L # Baso 0.02 0.01 - 0.08 K/L Immature Granulocytes-Relative 0 0 - 1 % Specimen Performing Laboratory Blood - Line, Venous [address] [address] Troponin I (02/23/2017 3:01 PM)Only the most recent of23 resultswithin the time period is included. Component Value Ref Range Troponin I 0.10 (H) 0.00 - 0.03 ng/mL Specimen Performing Laboratory Blood - Line, Venous [address] [address] Narrative Troponin I (TnI) levels must be interpreted [...] failure, acidosis, acute neurological disease, and persistent tachyarrhythmia. Sedimentation rate (02/23/2017 3:01 PM) Component Value Ref Range Sed Rate 103 (H) 0 - 20 mm/HR Specimen Performing Laboratory Blood - Line, [address] [address] CBC with platelet count + automated diff (02/23/2017 3:01 PM)Only the most recent of6 resultswithin the time period is included. Specimen Performing Laboratory Blood Narrative The following orders were created for panel order CBC with platelet count + automated diff. Procedure Abnormality Status --------- ------ CBC with platelet count ...[[id number]]AbnormalFinal result Please view results for these tests on the individual orders. T4, free (02/23/2017 3:01 PM)Only the most recent of2 resultswithin the time period is included. Component Value Ref Range Free T4 1.31 0.70 - 1.48 ng/dL Specimen Performing Laboratory Blood - Line, [address] [address] Phosphorus (02/23/2017 3:01 PM)Only the most recent of4 resultswithin the time period is included. Component Value Ref Range Phosphorus 5.1 (H) 2.3 - 4.7 mg/dL Specimen Performing Laboratory Blood - Line, [address] [address] Hemoglobin A1c (02/23/2017 3:01 PM)Only the most recent of2 resultswithin the time period is included. Component Value Ref Range Hemoglobin A1C 5.3 4.3 - 6.1 % Specimen Performing Laboratory Blood - Line, [address] [address] Creatine Kinase (CK), Total and MB (02/23/2017 3:01 PM)Only the most recent of4 resultswithin the time period is included. Component Value Ref Range Total CK 111 29 - 200 U/L CK-MB 4.8 0.0 - 6.6 ng/mL MB Relative Index 4.3 % Specimen Performing Laboratory Blood - Line, Venous [address] [address] Narrative CK-MB Reference Range: <6.7Normal 6.7-10.0Borderline >10.0 Abnormal Hepatic function panel (02/23/2017 3:01 PM) Component Value Ref Range Protein, Total 6.6 6.0 - 8.3 gm/dL Albumin 2.5 (L) 3.5 - 5.0 g/dL Total Bilirubin 0.4 0.2 - 1.2 mg/dL Bilirubin, Direct 0.1 0.1 - 0.5 mg/dL Alkaline Phosphatase 82 40 - 150 U/L AST 16 5 - 34 U/L ALT 10 6 - 55 U/L Specimen Performing Laboratory Blood - Line, Venous [address] [address] Lipid panel (02/23/2017 3:01 PM)Only the most recent of2 resultswithin the time period is included. Component Value Ref Range Triglycerides 64 mg/dL Cholesterol 112 mg/dL HDL 36 mg/dL LDL Calculated 63 mg/dL Specimen Performing Laboratory Blood - Line, Venous [address] [address] Narrative Triglyceride Reference Range: Low Risk <150 [id number] High Risk 200-499 Very High Risk>=500 Cholesterol Reference Range: Low Risk <200 [id number] High Risk>240 HDL Cholesterol Reference Range: Low Risk >=60 High Risk <40 LDL Cholesterol Reference Range: Optimal<100 Near [id number] Uasluqkoso506-489 Xevy351-732 Very High >=190 Basic metabolic panel (02/23/2017 3:01 PM)Only the most recent of13 resultswithin the time period is included. Component Value Ref Range Sodium 140 136 - 145 meq/L Potassium 4.4 3.5 - 5.1 meq/L Chloride 110 (H) 98 - 107 meq/L CO2 21 (L) 22 - 29 meq/L BUN 54 (H) 7 - 21 mg/dL Creatinine 9.62 (H) 0.57 - 1.25 mg/dL Glucose 87 70 - 105 mg/dL Calcium 8.0 (L) 8.4 - 10.2 mg/dL EGFR 5Comment: ESTIMATED GFR IS NOT ACCURATE CREATININE mL/min/1.73 sq m CLEARANCE IN PREDICTING GLOMERULAR FILTRATION RATE. ESTIMATED GFR IS NOT APPLICABLE FOR DIALYSIS PATIENTS. Specimen Performing Laboratory Blood - Line, Venous [facility] [address] [place] [address] Prothrombin time/INR (02/23/2017 2:56 PM)Only the most recent of5 resultswithin the time period is included. Component Value Ref Range Protime 16.0 (H) 11.7 - 14.7 seconds INR 1.3 <=5.9 Specimen Performing Laboratory Blood - Line, Venous [facility] [address] [place] [address] Narrative RECOMMENDED COUMADIN/WARFARIN INR THERAPY RANGES STANDARD DOSE: 2.0 - 3.0 Includes: PROPHYLAXIS for venous thrombosis, systemic embolization; TREATMENT for venous thrombosis and/or pulmonary embolus. HIGH RISK: Target INR is 2.5-3.5 for patients with mechanical heart valves. ECG 12 lead (02/23/2017 7:20 AM)Only the most recent of2 resultswithin the time period is included. Specimen Performing Laboratory GE MUSE Narrative Ventricular Rate 79 BPM Atrial Rate 79 BPM P-R Interval 126 ms QRS Duration 90 ms Q-T Interval 374 ms QTC Calculation(Bazett) 428 ms P [place] 29 degrees R [place] -10 degrees T [place] 25 degrees Normal sinus rhythm Normal ECG When compared with ECG of 01-JAN-2017 20:18, Vent. rate has decreased BY41 BPM QRS axis Shifted right Nonspecific T wave abnormality now evident in Inferior leads Confirmed by MD Massey Roberto ([id number]) on 02/23/2017 2:05:03 PM Procedure Note Interface, External Ris In - 02/23/2017 2:05 PM DISHWASHER PREPARER Ventricular Rate 79 BPM Atrial Rate 79 BPM P-R Interval 126 ms QRS Duration 90 ms Q-T Interval 374 ms QTC Calculation(Bazett) 428 ms P [place] 29 degrees R [place] -10 degrees T [place] 25 degrees Normal sinus rhythm Normal ECG When compared with ECG of 01-JAN-2017 20:18, Vent. rate has decreased BY 41 BPM QRS axis Shifted right Nonspecific T wave abnormality now evident in Inferior leads Confirmed by MD Massey Roberto ([id number]) on 02/23/2017 2:05:03 PM MR brain without IV contrast (02/23/2017 12:38 AM) Specimen Performing Laboratory RIS Narrative FINAL REPORT MR, BRAIN, WITHOUT CONTRAST INDICATION: Headache, acute, norm neuro exam Sudden onset headace, dizziness TECHNIQUE: Multiplanar, multisequence MR imaging of the brain without intravenous contrast. COMPARISON: Noncontrast head CT January 06, 2017 FINDINGS: There is no restricted diffusion.No focal abnormal parenchymal signal is present. There is no mass effect or abnormal extra-axial fluid.The ventricles demonstrate mild enlargement without evidence of transependymal flow. Incidental note of cavum of the septum pellucidum et vergae. There is no tonsillar herniation. Incidental note of partially empty sella. The larger intracranial vascular flow-voids are preserved. No loss of flow void is identified in the major dural sinuses. Mild mucosal thickening is present in the right maxillary sinus.There is normal bone marrow signal intensity within the calvarium and skull base. Although suboptimal, no obvious optic nerve edema is present. Susceptibility artifact is present in the right globe, suggesting prior vitreal hemorrhage. IMPRESSION: No infarct or parenchymal hemorrhage. 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 Intrahepatic intracranial hypertension is not excluded. Mild paranasal sinus disease. Signed: JR Gauri, Hamzah IGLESIAS Report Verified Date/Time:02/23/2017 00:47:16 Reading Location: [address] Body Reading Room Procedure Note Interface, External Ris In - 02/23/2017 12:49 AM DISHWASHER PREPARER FINAL REPORT MR, BRAIN, WITHOUT CONTRAST INDICATION: Headache, acute, norm neuro exam Sudden onset headace, dizziness TECHNIQUE: Multiplanar, multisequence MR imaging of the brain without intravenous contrast. COMPARISON: Noncontrast head CT January 06, 2017 FINDINGS: There is no restricted diffusion. No focal abnormal parenchymal signal is present. There is no mass effect or abnormal extra-axial fluid. The ventricles demonstrate mild enlargement [...] normal bone marrow signal intensity within the calvarium and skull base. Although suboptimal, no obvious optic nerve edema is present. Susceptibility artifact is present in the right globe, suggesting prior vitreal hemorrhage. IMPRESSION: No infarct or parenchymal hemorrhage. 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 Intrahepatic intracranial hypertension is not excluded. Mild paranasal sinus disease. Signed: JR Gauri, Hamzah IGLESIAS Report Verified Date/Time: 02/23/2017 00:47:16 Reading Location: [facility] B1 C013Y CT Body Reading Room Specificity Class II (01/17/2017 12:00 PM) Component Value Ref Range Date of Serum 854339 Serum# [id number] AB Specificity Class II See Scanned Report Specimen Performing Laboratory Blood [facility] [place], [place]:[facility] [address] [place] [address] AB Specificity Class I (01/17/2017 12:00 PM) Component Value Ref Range Date of Serum 536009 Serum# [id number] AB Specificity Class I Specimen Performing Laboratory Blood [facility] [place]:[facility] [address] [place] [address] CBC (Hemogram only) (01/13/2017 1:35 PM)Only the most recent of2 resultswithin the time period is included. Component Value Ref Range WBC 3.9 3.5 - 10.5 K/L RBC 2.61 (L) 3.93 - 5.22 M/L Hemoglobin 7.5 (L) 11.2 - 15.7 GM/DL Hematocrit 23.8 (L) 34.1 - 44.9 % MCV 91.2 79.4 - 94.8 fL MCH 28.7 25.6 - 32.2 pg MCHC 31.5 (L) 32.2 - 35.5 GM/DL RDW 14.2 11.7 - 14.4 % Platelets 187 150 - 450 K/CU MM MPV 11.2 9.4 - 12.3 fL nRBC 0 0 - 0 /100 WBC Specimen Performing Laboratory Blood - Arm, Right [address] [address] Toxicology screen, serum (01/13/2017 1:21 PM) Component Value Ref Range DRUG TEST, GENERAL TOXICOLOGY, see note URINE,QUEST Comment: The following compounds were detected: Acetaminophen Hydromorphone MEGx (Lidocaine Metabolite) Caffeine Dihydrocodeine (Hydrocodone Metabolite) Hydrocodone Dextrorphan Salicylic Acid For a list of compounds and limits of detection go to: http://education.XODIS.PlanetEye/faq/BMY814 ACETONE (QUEST) None Detected METHANOL(QUEST) None Detected Isopropanol(Quest) None Detected ETHANOL None Detected Comment: Volatile Limit of Detection: 5 mg/dL Specimen Performing Laboratory Blood [facility] [address] [place] [address] Narrative Performing Lab [facility] [employer] [facility], [address] [place] [address] [place] [address] Adriano Cardona MD, PhD Magnesium (01/13/2017 1:21 PM)Only the most recent of13 resultswithin the time period is included. Component Value Ref Range Magnesium 1.7 1.6 - 2.6 mg/dL Specimen Performing Laboratory Blood [address] [address] PULMONARY FUNCTION - SCAN (01/11/2017 12:50 PM)HGB/HCT (H&H)-Stat Lab (01/11 8:34 AM)Only the most recent of4 resultswithin the time period is included. Component Value Ref Range Hemoglobin 8.0 (L) 12.0 - 15.0 g/dL Hematocrit 24.0 (L) 36.0 - 45.0 % Specimen Performing Laboratory Blood - Line, Venous [address] [address] Pulmonary Funct Lab Spirometry (01/10/2017 9:47 AM) Narrative London Grant, BLUEPRINT TRIMMER, SEED ANALYST 01/10/20179:47 AM [facility] PFT CHARTING REPORT Infection Control/Hand Hygiene procedures followed throughout the encounter with patient: Yes Patient Identification Method: Patient name verified on armband, and Medical record on armband, Is the order complete?: Yes Account ID#: [id number] Patient Name: Yamile Brooke Birthdate: 1970 Age: 46 y.o.Sex: female Admission Date: 01/01/2017Patient Status: Inpatient Reasons/Symptom for having the Test?: a history/complaint of a dyspnea Type of study/treatment ordered by physician: Single Breath DLCO and Spirometry Lab Results Component Value Date HGB 12.3 01/09/2017 Ranges: Adult Male 13 - 16.8 g/dlAdult Female 12 - 15 g/dl 6 Minute Walk (read only) 01/10/2017 01/10/2017 01/10/2017 Pulse - 90 84 SpO2 99 97 98 Study Date: 01/10/2017Study Time: 0825 ASSESSMENT History & Physical Mode of Arrival: Wheel chair Pulse: 79Resp: 18SPO2: 98 %RA Pain Assessment Pain:None TESTING/THERAPEUTICS Medications ordered or required for procedure: N/A PT EDUCATION/INSTRUCTIONS Barriers to learning: No known barriers to learning. Learning need identified: Yes, Patient/Family/Guradian was informed of the ordered study by the physician Barriers to performing study or treatment: Patient has no known disability to perform the study or treatment. DISCHARGE The study was completed in accordance with the physician's order and patient released from the lab without adverse outcome. DLCO (single breath diffusion) (01/10/2017 9:47 AM) Narrative London Grant, BLUEPRINT TRIMMER, SEED ANALYST 01/10/20179:47 AM [facility] PFT CHARTING REPORT Infection Control/Hand Hygiene procedures followed throughout the encounter with patient: Yes Patient Identification Method: Patient name verified on armband, and Medical record on armband, Is the order complete?: Yes Account ID#: [id number] Patient Name: Yamile Brooke Birthdate: 1970 Age: 46 y.o.Sex: female Admission Date: 01/01/2017Patient Status: Inpatient Reasons/Symptom for having the Test?: a history/complaint of a dyspnea Type of study/treatment ordered by physician: Single Breath DLCO and Spirometry Lab Results Component Value Date HGB 12.3 01/09/2017 Ranges: Adult Male 13 - 16.8 g/dlAdult Female 12 - 15 g/dl 6 Minute Walk (read only) 01/10/2017 01/10/2017 01/10/2017 Pulse - 90 84 SpO2 99 97 98 Study Date: 01/10/2017Study Time: 824 ASSESSMENT History & Physical Mode of Arrival: Wheel chair Pulse: 79Resp: 18SPO2: 98 %RA Pain Assessment Pain:None TESTING/THERAPEUTICS Medications ordered or required for procedure: N/A PT EDUCATION/INSTRUCTIONS Barriers to learning: No known barriers to learning. Learning need identified: Yes, Patient/Family/Guradian was informed of the ordered study by the physician Barriers to performing study or treatment: Patient has no known disability to perform the study or treatment. DISCHARGE The study was completed in accordance with the physician's order and patient released from the lab without adverse outcome. Hemodialysis (01/09/2017 8:27 PM)Only the most recent of3 resultswithin the time period is included. Narrative Traci Arvizu RN 01/09/20178:27 PM Lab Results Component Value Date WBC 7.3 01/06/2017 HGB 12.3 01/09/2017 HCT 36.0 01/09/2017 MCV 92.9 01/06/2017 PLT 150 01/06/2017 Lab Results Component Value Date GLUCOSE 129 (H) 01/09/2017 CALCIUM 8.5 01/09/2017 NA 134 (L) 01/09/2017 K 4.9 01/09/2017 CO2 24 01/09/2017 CL 101 01/09/2017 BUN 24 (H) 01/09/2017 CREATININE 7.96 (H) 01/09/2017 Lab Results Component Value Date HEPBSAG Nonreactive 01/02/2017 A&Ox4, drowsy, post-OR. L upper AVF with +bruit/ + thrill, drsg intact, mild sanguinous saturation. VSS on RA. Pt c/o 5/10 pain in arm, denies SOB. LS CTA. Old PD site with no s/s of infection. Hypotensive during HD, on 2L O2 nc, mannitol given. Removed 1.0L fluid. Catheter patent, lines reversed, with no s/s of infection, heparin locked with no complications. Report given to Lucinda Johns RN. Left stable via bed. Potassium-Stat Lab (01/09/2017 10:22 AM)Only the most recent of2 resultswithin the time period is included. Component Value Ref Range Potassium 4.9 3.6 - 5.5 meq/L Specimen Performing Laboratory Blood, Arterial [facility] [address] Glucose-Stat Lab (01/09/2017 10:22 AM)Only the most recent of2 resultswithin the time period is included. Component Value Ref Range Glucose 129 (H) 70 - 110 mg/dL Specimen Performing Laboratory Blood, Arterial [address] [address] aPTT (01/09/2017 1:28 AM)Only the most recent of17 resultswithin the time period is included. Component Value Ref Range PTT 67.7 (H) 22.5 - 36.0 seconds Specimen Performing Laboratory Blood - Arm, Left [address] [address] PT/aPTT (01/08/2017 5:03 PM)Only the most recent of4 resultswithin the time period is included. Component Value Ref Range Protime 15.2 (H) 11.7 - 14.7 seconds INR 1.2 <=5.9 PTT 37.0 (H) 22.5 - 36.0 seconds Specimen Performing Laboratory Blood [address] [address] Narrative RECOMMENDED COUMADIN/WARFARIN INR THERAPY RANGES STANDARD DOSE: 2.0 - 3.0 Includes: PROPHYLAXIS for venous thrombosis, systemic embolization; TREATMENT for venous thrombosis and/or pulmonary embolus. HIGH RISK: Target INR is 2.5-3.5 for patients with mechanical heart valves. TRANSFUSION SERVICE REPORT - SCAN (01/07/2017 5:42 PM)Only the most recent of2 resultswithin the time period is included.Vancomycin level, random (01/07/2017 12:02 PM)Only the most recent of5 resultswithin the time period is included. Component Value Ref Range Vancomycin Rm 33.9 ug/mL Specimen Performing Laboratory Blood [address] [address] Narrative Reference Range: No Normals CT brain without IV contrast (01/06/2017 10:17 PM) Specimen Performing Laboratory GE RIS Narrative FINAL REPORT Clinical history : Heart transplant evaluation Comparison study: CT scan of the brain 06/06/2016 Technique: Contiguous axial images were obtained of the brain without intravenous contrast. This exam was performed according to [...] Impression: No acute abnormalities. Signed: Erlin Nuno MD Report Verified Date/Time:01/06/2017 23:31:20 Reading Location: [address] Ortho Consult Reading Room Procedure Note Interface, External Ris In - 01/06/2017 11:33 PM CDT FINAL REPORT Clinical history : Heart transplant evaluation Comparison study: CT scan of the brain 06/06/2016 Technique: Contiguous axial images were obtained of the brain without intravenous contrast. This exam was performed according to [...] Impression: No acute abnormalities. Signed: Erlin Nuno MD Report Verified Date/Time: 01/06/2017 23:31:20 Reading Location: [facility] C013X Ortho Consult Reading Room chest without IV contrast (01/06/2017 10:13 PM) Specimen Performing Laboratory Advisity RIS Narrative Addendum Begins REPORT STATUS:A The original report incorrectly states that the procedure was performed with intravenous contrast. In fact, the procedure was performed without intravenous contrast. Signed: Joann Diaz MD Report Verified Date/Time:01/13/2017 14:16:42 Reading Location: [facility] C013X Ortho Consult Reading Room Addendum Ends FINAL REPORT INDICATION: 46-year-old female preheart transplant evaluation. COMPARISON: None. TECHNIQUE: CT of the Chest, Abdomen and Pelvis WITHintravenous contrast. Enteric contrast was not used. The [...] caliber right internal jugular line that terminates at the cavoatrial junction. ABDOMEN and PELVIS: Liver and spleen are unremarkable. In the head of the pancreas there are a few punctate calcifications which are suspicious for chronic pancreatitis. No pancreatic mass, atrophy, or ductal dilatation is demonstrated. Patient is status post cholecystectomy. No biliary ductal dilatation demonstrated. No upper abdominal lymphadenopathy. No gross renal mass is demonstrated. No hydronephrosis. Diffuse mild bladder wall thickening is noted and may be related to nondistention. Patient is status post hysterectomy. No pelvic or retroperitoneal lymphadenopathy is demonstrated. There is scattered moderate calcified atherosclerotic plaque of the abdominal aorta and iliac arteries. IVC and iliac veins are unremarkable. No bowel obstruction or bowel mass is demonstrated. There is diffuse mild ascites. BONES and SOFT TISSUES: No suspicious osseous lesion is demonstrated. No significant osseous degenerative changes. Soft tissues are notable for laparotomy wound with apparent packing material in open portion of the wound. IMPRESSION: No evidence of malignancy in the chest, abdomen, or pelvis. Mild cardiomegaly and coronary artery calcification. Bilateral moderate pleural effusions. A few punctate calcifications in the head of the pancreas, suspicious for chronic pancreatitis. Prior cholecystectomy and hysterectomy. Moderate atherosclerosis of the abdominal aorta and iliac arteries. Upper laparotomy wound with apparent packing material in open part of wound. Signed: Joann Diaz MD Report Verified Date/Time:01/06/2017 23:49:19 Reading Location: [facility] B[facility] C013W Consult Reading Room Procedure Note Interface, External Ris In - 01/13/2017 2:18 PM CDT Addendum Begins REPORT STATUS:A The original report incorrectly states that the procedure was performed with intravenous contrast. In fact, the procedure was performed without intravenous contrast. Signed: Joann Diaz MD Report Verified Date/Time: 01/13/2017 14:16:42 Reading Location: [facility] C013[facility] Ortho Consult Reading Room Addendum Ends FINAL REPORT INDICATION: 46-year-old female preheart transplant evaluation. [...] caliber right internal jugular line that terminates at the cavoatrial junction. ABDOMEN and PELVIS: Liver and spleen are unremarkable. In the head of the pancreas there are a few punctate calcifications which are suspicious for chronic pancreatitis. No pancreatic mass, atrophy, or ductal dilatation is demonstrated. Patient is status post cholecystectomy. No biliary ductal dilatation demonstrated. No upper abdominal lymphadenopathy. No gross renal mass is demonstrated. No hydronephrosis. Diffuse mild bladder wall thickening is noted and may be related to nondistention. Patient is status post hysterectomy. No pelvic or retroperitoneal lymphadenopathy is demonstrated. There is scattered moderate calcified atherosclerotic plaque of the abdominal aorta and iliac arteries. IVC and iliac veins are unremarkable. No bowel obstruction or bowel mass is demonstrated. There is diffuse mild ascites. BONES and SOFT TISSUES: No suspicious osseous lesion is demonstrated. No significant osseous degenerative changes. Soft tissues are notable for laparotomy wound with apparent packing material in open portion of the wound. IMPRESSION: No evidence of malignancy in the chest, abdomen, or pelvis. Mild cardiomegaly and coronary artery calcification. Bilateral moderate pleural effusions. A few punctate calcifications in the head of the pancreas, suspicious for chronic pancreatitis. Prior cholecystectomy and hysterectomy. Moderate atherosclerosis of the abdominal aorta and iliac arteries. Upper laparotomy wound with apparent packing material in open part of wound. Signed: Joann Diaz MD Report Verified Date/Time: 01/06/2017 23:49:19 Reading Location: [facility] C013W Consult Reading Room abdomen/pelvis without iv contrast (01/06/2017 10:13 PM) Specimen Performing Laboratory Ticket Hoy Narrative Addendum Begins REPORT STATUS:A The original report incorrectly states that the procedure was performed with intravenous contrast. In fact, the procedure was performed without intravenous contrast. Signed: Joann Diaz MD Report Verified Date/Time:01/13/2017 14:16:42 Reading Location: [facility] C013X Ortho Consult Reading Room Addendum Ends FINAL REPORT INDICATION: 46-year-old female preheart transplant evaluation. COMPARISON: None. TECHNIQUE: CT of the Chest, Abdomen and Pelvis WITHintravenous contrast. Enteric contrast was not used. The [...] caliber right internal jugular line that terminates at the cavoatrial junction. ABDOMEN and PELVIS: Liver and spleen are unremarkable. In the head of the pancreas there are a few punctate calcifications which are suspicious for chronic pancreatitis. No pancreatic mass, atrophy, or ductal dilatation is demonstrated. Patient is status post cholecystectomy. No biliary ductal dilatation demonstrated. No upper abdominal lymphadenopathy. No gross renal mass is demonstrated. No hydronephrosis. Diffuse mild bladder wall thickening is noted and may be related to nondistention. Patient is status post hysterectomy. No pelvic or retroperitoneal lymphadenopathy is demonstrated. There is scattered moderate calcified atherosclerotic plaque of the abdominal aorta and iliac arteries. IVC and iliac veins are unremarkable. No bowel obstruction or bowel mass is demonstrated. There is diffuse mild ascites. BONES and SOFT TISSUES: No suspicious osseous lesion is demonstrated. No significant osseous degenerative changes. Soft tissues are notable for laparotomy wound with apparent packing material in open portion of the wound. IMPRESSION: No evidence of malignancy in the chest, abdomen, or pelvis. Mild cardiomegaly and coronary artery calcification. Bilateral moderate pleural effusions. A few punctate calcifications in the head of the pancreas, suspicious for chronic pancreatitis. Prior cholecystectomy and hysterectomy. Moderate atherosclerosis of the abdominal aorta and iliac arteries. Upper laparotomy wound with apparent packing material in open part of wound. Signed: Joann Diaz MD Report Verified Date/Time:01/06/2017 23:49:19 Reading Location: [address] Consult Reading Room Procedure Note Interface, External Ris In - 01/13/2017 2:18 PM CDT Addendum Begins REPORT STATUS:A The original report incorrectly states that the procedure was performed with intravenous contrast. In fact, the procedure was performed without intravenous contrast. Signed: Joann Diaz MD Report Verified Date/Time: 01/13/2017 14:16:42 Reading Location: [facility] Ortho Consult Reading Room Addendum Ends FINAL REPORT INDICATION: 46-year-old female preheart transplant evaluation. [...] caliber right internal jugular line that terminates at the cavoatrial junction. ABDOMEN and PELVIS: Liver and spleen are unremarkable. In the head of the pancreas there are a few punctate calcifications which are suspicious for chronic pancreatitis. No pancreatic mass, atrophy, or ductal dilatation is demonstrated. Patient is status post cholecystectomy. No biliary ductal dilatation demonstrated. No upper abdominal lymphadenopathy. No gross renal mass is demonstrated. No hydronephrosis. Diffuse mild bladder wall thickening is noted and may be related to nondistention. Patient is status post hysterectomy. No pelvic or retroperitoneal lymphadenopathy is demonstrated. There is scattered moderate calcified atherosclerotic plaque of the abdominal aorta and iliac arteries. IVC and iliac veins are unremarkable. No bowel obstruction or bowel mass is demonstrated. There is diffuse mild ascites. BONES and SOFT TISSUES: No suspicious osseous lesion is demonstrated. No significant osseous degenerative changes. Soft tissues are notable for laparotomy wound with apparent packing material in open portion of the wound. IMPRESSION: No evidence of malignancy in the chest, abdomen, or pelvis. Mild cardiomegaly and coronary artery calcification. Bilateral moderate pleural effusions. A few punctate calcifications in the head of the pancreas, suspicious for chronic pancreatitis. Prior cholecystectomy and hysterectomy. Moderate atherosclerosis of the abdominal aorta and iliac arteries. Upper laparotomy wound with apparent packing material in open part of wound. Signed: Joann Diaz MD Report Verified Date/Time: 01/06/2017 23:49:19 Reading Location: [address] Consult Reading Room Blood typing, automated (01/06/2017 6:24 PM) Component Value Ref Range ABO/RH AUTOMATED (MARYANNE) B POSITIVE Specimen Performing Laboratory Blood [facility] [address] [address] PERIPHERAL VASCULAR REPORT - SCAN (01/06/2017 6:20 PM)Only the most recent of3 resultswithin the time period is included.US renal complete (01/06/2017 3:12 PM ) Specimen Performing Laboratory Ticket Hoy Narrative FINAL REPORT Ultrasound of the Kidneys, 01/06/2017. Clinical History: Transplant evaluation. Discussion: Sonographic evaluation of the kidneys is performed. Right kidney:9.4 cm in length, normal in size, with cortical thickness of 1.4 cm.Increased cortical echogenicity.No mass.No shadowing calculus.No hydronephrosis. Left kidney: 9.7 cm in length, normal in size, with cortical thickness of 1.5 cm.Increased cortical echogenicity.No mass.No shadowing calculus.No hydronephrosis. Limited Doppler evaluation demonstrates normal color Doppler flow within bilateral renal han. Fluid:No perinephric fluid. Bladder:Unremarkable. IMPRESSION: Increased echogenicity of the bilateral kidneys which can be seen in medical renal disease. Signed: Jerrod Ramírez MD Report Verified Date/Time:01/06/2017 17:29:12 Reading Location: [place] [id number] Ultrasound Reading Room Procedure Note Interface, External Ris In - 01/06/2017 5:31 PM CDT FINAL REPORT Ultrasound of the Kidneys, 01/06/2017. Clinical History: Transplant evaluation. Discussion: Sonographic evaluation of the kidneys is performed. Right kidney: 9.4 cm in length, normal in size, with cortical thickness of 1.4 cm. Increased cortical echogenicity. No mass. No shadowing calculus. No hydronephrosis. Left kidney: 9.7 cm in length, normal in size, with cortical thickness of 1.5 cm. Increased cortical echogenicity. No mass. No shadowing calculus. No hydronephrosis. Limited Doppler evaluation demonstrates normal color Doppler flow within bilateral renal han. Fluid: No perinephric fluid. Bladder: Unremarkable. IMPRESSION: Increased echogenicity of the bilateral kidneys which can be seen in medical renal disease. Signed: Jerrod Ramírez MD Report Verified Date/Time: 01/06/2017 17:29:12 Reading Location: [facility] [id number] Ultrasound Reading Room Arterial doppler legs bilateral (01/06/2017 1:43 PM) Component Value Ref Range Ejection Fraction Specimen Performing Laboratory [facility] ECHO HEARTLAB MKCKESSON CPACS Impressions Right Impression 1. The posterior tibial and dorsalis pedis arteries are patent with normal triphasic Doppler waveforms. 2. The PT pressure is 144 mmHg with an MARISSA of 1.18 and the DP pressure is 147 mmHg with an MARISSA of 1.20, within normal range. 3. The great toe pressure is 117 mmHg with a normal TBI of 0.96. 4. The digits have adequate flow by PPG waveforms. Left Impression 1. The posterior tibial and dorsalis pedis arteries are patent with normal triphasic Doppler waveforms. 2. The PT pressure is 144 mmHg with an MARISSA of 1.18 and the DP pressure is 139 mmHg with an MARISSA of 1.14, within normal range. 3. The great toe pressure is 103 mmHg with a normal TBI of 0.84. 4. The digits have adequate flow by PPG waveforms. Conclusions Summary Arterial pressures and Doppler waveforms were performed bilaterally. Adequate Doppler waveforms were obtained. Doppler waveforms were triphasic with normal flow bilaterally. The right and left MARISSA's were within normal range. The toe pressure and TBI's were within normal range bilaterally. The digits had adequate flow by PPG waveforms bilaterally. Signature Velocities are measured in cm/s ; Diameters are measured in cm Narrative [facility] - Lower Extremity Arterial Procedure Demographics Patient Name Jacki BROOKE of Study 01/06/2017 DEVIN [id number] 46 Visit Number [id number] Female Accession Number [id number] of 1970 Harsha Fernandes Number [id number] Physician SonographerHeaIlana Patterson Rosalba Physician , RPRICO Procedure Type of Study: Extremities Arteries: Lower Extremity Arterial Procedure, ARTERIAL (MARISSA'S W/DOPPLER) ONLY. Indications for Study:Heart transplant evaluation . Patient Status:Routine. Study Location:Vascular Lab. Technical Quality:Adequate visualization. Risk Factors History of Disease + +----+ + !Diagnosis!Date!Comments ! + +----+ + !History/Risk !!ESRD, DM, CAD, ICMP, CHF, Hepatitis C, HTN, Acute! !Factors: !!pulmonary insufficiency! + +----+ + Procedure Note Interface, External Ris In - 01/06/2017 5:48 PM CDT [facility] - Lower Extremity Arterial Procedure Demographics Patient Name YAMILE BROOKE Date of Study 01/06/2017 DEVIN Age 46 Visit Number [id number] Gender Female Accession Number [id number] Date of 1970 Referring Robinson Vigil MD Room Number [id number] Physician Metal Machine Operator Ilana Keyes T Physician , RPVI Procedure Type of Study: Extremities Arteries: Lower Extremity Arterial Procedure, ARTERIAL (MARISSA'S W/DOPPLER) ONLY. Indications for Study:Heart transplant evaluation . Patient Status:Routine. Study Location:Vascular Lab. Technical Quality:Adequate visualization. Risk Factors History of Disease + +----+ + !Diagnosis !Date!Comments ! + +----+ + !History/Risk ! !ESRD, DM, CAD, ICMP, CHF, Hepatitis C, HTN, Acute ! !Factors: ! !pulmonary insufficiency ! + +----+ + Impressions Right Impression 1. The posterior tibial and dorsalis pedis arteries are patent with normal triphasic Doppler waveforms. 2. The PT pressure is 144 mmHg with an MARISSA of 1.18 and the DP pressure is 147 mmHg with an MARISSA of 1.20, within normal range. 3. The great toe pressure is 117 mmHg with a normal TBI of 0.96. 4. The digits have adequate flow by PPG waveforms. Left Impression 1. The posterior tibial and dorsalis pedis arteries are patent with normal triphasic Doppler waveforms. 2. The PT pressure is 144 mmHg with an MARISSA of 1.18 and the DP pressure is 139 mmHg with an MARISSA of 1.14, within normal range. 3. The great toe pressure is 103 mmHg with a normal TBI of 0.84. 4. The digits have adequate flow by PPG waveforms. Conclusions Summary Arterial pressures and Doppler waveforms were performed bilaterally. Adequate Doppler waveforms were obtained. Doppler waveforms were triphasic with normal flow bilaterally. The right and left MARISSA's were within normal range. The toe pressure and TBI's were within normal range bilaterally. The digits had adequate flow by PPG waveforms bilaterally. Signature Velocities are measured in cm/s ; Diameters are measured in cm Carotid doppler bilateral (01/06/2017 1:37 PM) Component Value Ref Range Ejection Fraction Specimen Performing Laboratory [facility] ECHO HEARTLAB [facility] Impressions Right Impression 1. There is <50% diameter reduction (approximately 38% by 2-D measurement) in the internal carotid artery with a peak velocity of 79/25 cm/sec and heterogeneous plaque. 2. There is non-occluding plaque in the external carotid artery. 3. There is non-occluding plaque in the common carotid artery. 4. The vertebral artery flow is antegrade and normal. 5. The subclavian artery is within normal limits where visualized. Left Impression 1. There is <50% diameter reduction (approximately 29% by 2-D measurement) in the internal carotid artery with a peak velocity of 61/25 cm/sec and heterogeneous plaque. 2. There is non-occluding plaque in the external carotid artery. 3. There is non-occluding plaque in the common carotid artery. 4. The vertebral artery flow is antegrade and normal. 5. The subclavian artery is within normal limits where visualized. Conclusions Summary Carotid duplex scanning and color flow imaging were performed bilaterally. The arteries were adequately visualized. The bilateral internal carotid arteries had <50% hemodynamically insignificant stenosis (approximately 38% by 2-D measurement on the right, approximately 29% by 2-D measurement on the left) with heterogeneous plaque. The vertebral artery flow was antegrade and normal bilaterally. Signature Velocities are measured in cm/s ; Diameters are measured in cm Carotid Right Measurements + +----+----+-----+ + + + !Location !PSV !EDV !Angle!%Stenosis 2D!%Stenosis Doppler! Tortuosity ! + +----+----+-----+ + + + !Prox CCA !79.2!20.5!60 !! ! ! + +----+----+-----+ + + + !Dist CCA !66.3!21.7!60 !! ! ! + +----+----+-----+ + + + !Prox ICA !79.7!25.2!60 !38% !<50% ! ! + +----+----+-----+ + + + !Dist ICA !54!18.8!40 !! ! ! + +----+----+-----+ + + + !Prox ECA !77.4!12.9!60 !! ! ! + +----+----+-----+ + + + !Vertebral!51!18.8!60 !! ! ! + +----+----+-----+ + + + !Prox Subclavian!82.1!15.2!60 !! ! ! + +----+----+-----+ + + + - Additional Measurements:ICAPSV/CCAPSV 1.2.ICAEDV/CCAEDV 1.23. Carotid Left Measurements + +----+----+-----+ + + + !Location !PSV !EDV !Angle!%Stenosis 2D!%Stenosis Doppler! Tortuosity ! + +----+----+-----+ + + + !Prox CCA !124 !25.5!60 !! ! ! + +----+----+-----+ + + + !Dist CCA !76.6!25.5!60 !! ! ! + +----+----+-----+ + + + !Prox ICA !61.3!25.9!60 !29% !<50% ! ! + +----+----+-----+ + + + !Dist ICA !73.4!30.4!42 !! ! ! + +----+----+-----+ + + + !Prox ECA !49.9!9.82!60 !! ! ! + +----+----+-----+ + + + !Vertebral!59.2!28.7!60 !! ! ! + +----+----+-----+ + + + !Prox Subclavian!55.7!14.1!60 !! ! ! + +----+----+-----+ + + + - Additional Measurements:ICAPSV/CCAPSV 0.96.ICAEDV/CCAEDV 1.19. Narrative [facility] - Carotid Duplex Study Demographics Patient Name YAMILE BROOKE Date of Study 01/06/2017 DEVIN [id number] Age 46 Visit Number [id number] Gender Female Accession Number [id number] [facility] 1970 [facility] Physician SonographerHeber Manuel. Woody Hodges MD, RVTPhysiciluke RPVI Procedure Type of Study: Cerebral: Carotid, CAROTID DOPPLER, BILATERAL. Indications for Study:Heart transplant evaluation . Patient Status:Routine. Study Location:Vascular Lab. Technical Quality:Adequate visualization. Risk Factors History of Disease + +----+ + !Diagnosis!Date!Comments ! + +----+ + !History/Risk !!ESRD, DM, CAD, ICMP, CHF, Hepatitis C, HTN, Acute! !Factors: !!pulmonary insufficiency! + +----+ + Procedure Note Interface, External Ris In - 01/06/2017 5:49 PM CDT [facility] - Carotid Duplex Study Demographics Patient Name YAMILE BROOKE Date of Study 01/06/2017 DEVIN Age 46 Visit Number [id number] Gender Female Accession Number [id number] Date of 1970 Referring ROBINSON VIGIL Room Number 747 Physician Metal Machine Operator Heber Geiger Interpreting Christine Hodges MD, RVT Physician [place] Procedure Type of Study: Cerebral: Carotid, CAROTID DOPPLER, BILATERAL. Indications for Study:Heart transplant evaluation . Patient Status:Routine. Study Location:Vascular Lab. Technical Quality:Adequate visualization. Risk Factors History of Disease + +----+ + !Diagnosis !Date!Comments ! + +----+ + !History/Risk ! !ESRD, DM, CAD, ICMP, CHF, Hepatitis C, HTN, Acute ! !Factors: ! !pulmonary insufficiency ! + +----+ + Impressions Right Impression 1. There is <50% diameter reduction (approximately 38% by 2-D measurement) in the internal carotid artery with a peak velocity of 79/25 cm/sec and heterogeneous plaque. 2. There is non-occluding plaque in the external carotid artery. 3. There is non-occluding plaque in the common carotid artery. 4. The vertebral artery flow is antegrade and normal. 5. The subclavian artery is within normal limits where visualized. Left Impression 1. There is <50% diameter reduction (approximately 29% by 2-D measurement) in the internal carotid artery with a peak velocity of 61/25 cm/sec and heterogeneous plaque. 2. There is non-occluding plaque in the external carotid artery. 3. There is non-occluding plaque in the common carotid artery. 4. The vertebral artery flow is antegrade and normal. 5. The subclavian artery is within normal limits where visualized. Conclusions Summary Carotid duplex scanning and color flow imaging were performed bilaterally. The arteries were adequately visualized. The bilateral internal carotid arteries had <50% hemodynamically insignificant stenosis (approximately 38% by 2-D measurement on the right, approximately 29% by 2-D measurement on the left) with heterogeneous plaque. The vertebral artery flow was antegrade and normal bilaterally. Signature Velocities are measured in cm/s ; Diameters are measured in cm Carotid Right Measurements + +----+----+-----+ + + + !Location !PSV !EDV !Angle!%Stenosis 2D!%Stenosis Doppler!Tortuosity ! + +----+----+-----+ + + + !Prox CCA !79.2!20.5!60 ! ! ! ! + +----+----+-----+ + + + !Dist CCA !66.3!21.7!60 ! ! ! ! + +----+----+-----+ + + + !Prox ICA !79.7!25.2!60 !38% !<50% ! ! + +----+----+-----+ + + + !Dist ICA !54 !18.8!40 ! ! ! ! + +----+----+-----+ + + + !Prox ECA !77.4!12.9!60 ! ! ! ! + +----+----+-----+ + + + !Vertebral !51 !18.8!60 ! ! ! ! + +----+----+-----+ + + + !Prox Subclavian!82.1!15.2!60 ! ! ! ! + +----+----+-----+ + + + - Additional Measurements:ICAPSV/CCAPSV 1.2.ICAEDV/CCAEDV 1.23. Carotid Left Measurements + +----+----+-----+ + + + !Location !PSV !EDV !Angle!%Stenosis 2D!%Stenosis Doppler!Tortuosity ! + +----+----+-----+ + + + !Prox CCA !124 !25.5!60 ! ! ! ! + +----+----+-----+ + + + !Dist CCA !76.6!25.5!60 ! ! ! ! + +----+----+-----+ + + + !Prox ICA !61.3!25.9!60 !29% !<50% ! ! + +----+----+-----+ + + + !Dist ICA !73.4!30.4!42 ! ! ! ! + +----+----+-----+ + + + !Prox ECA !49.9!9.82!60 ! ! ! ! + +----+----+-----+ + + + !Vertebral !59.2!28.7!60 ! ! ! ! + +----+----+-----+ + + + !Prox Subclavian!55.7!14.1!60 ! ! ! ! + +----+----+-----+ + + + - Additional Measurements:ICAPSV/CCAPSV 0.96.ICAEDV/CCAEDV 1.19. Hepatitis A antibody, IgG (01/06/2017 1:11 PM) Component Value Ref Range Hep A IgG Reactive (A) Nonreactive Specimen Performing Laboratory Blood [address] [address] Creatinine Clearance (01/06/2017 1:11 PM) Specimen Performing Laboratory Other Narrative The following orders were created for panel order Creatinine Clearance. Procedure Abnormality Status --------- ------ Creatinine[[id number]] AbnormalFinal result Creatinine clearance[[id number]] Please view results for these tests on the individual orders. Type and screen, automated (01/06/2017 1:11 PM)Only the most recent of2 resultswithin the time period is included. Component Value Ref Range ABO/RH AUTOMATED (BEAKER) B POSITIVE Ab Scrn NEGATIVE Specimen Performing Laboratory Blood [address] [address] HIV-1 Antigen with HIV-1/2 Antibody (01/06/2017 1:11 PM) Component Value Ref Range HIV-1 Antigen with HIV 1&2 Antibody Nonreactive Nonreactive Specimen Performing Laboratory Blood [address] [address] Cytomegalovirus antibody, IgM (01/06/2017 1:11 PM) Component Value Ref Range CMV IgM Negative Specimen Performing Laboratory Blood [address] [address] MILTON Titer & Pattern (01/06/2017 1:11 PM) Component Value Ref Range MILTON Titer 1:640 MILTON Pattern SSA/RO Specimen Performing Laboratory Blood [address] [address] Toxoplasma gondii antibody, IgM (01/06/2017 1:11 PM) Component Value Ref Range Toxoplasma gondii IgM Negative Specimen Performing Laboratory Blood [address] [address] Herpes virus antibody, IgM (01/06/2017 1:11 PM) Component Value Ref Range Herpes Virus IGM Negative Comment: HSV 1 IGM=NEG HSV 2 IGM=NEG Specimen Performing Laboratory Blood [address] [address] EBV-VCA antibody, IgM (01/06/2017 1:11 PM) Component Value Ref Range EBV VCA IgM Negative Specimen Performing Laboratory [address] [address] EBV-VCA antibody, IgG (01/06/2017 1:11 PM) Component Value Ref Range EBV VCA IgG Positive Specimen Performing Laboratory [address] [address] Vitamin D, 25-Hydroxy (01/06/2017 1:11 PM) Component Value Ref Range Vitamin D 25-Hydroxy 6.4 (L) 6.6 - 49.9 ng/mL Specimen Performing Laboratory Blood [address] [address] Narrative Effective 12/21/2016: Reference Range Change New: 6.6-49.9 ng/mL Previous: 13.0-47.8 ng/mL Recommended Vitamin D Target Range: 30.0-40.0 ng/mL Herpes virus antibody, IgG (01/06/2017 1:11 PM) Component Value Ref Range Herpes Virus IGG Positive Comment: HSV 1 IGG=POS HSV 2 IGG=POS Specimen Performing Laboratory Blood [address] [address] Toxoplasma gondii antibody, IgG (01/06/2017 1:11 PM) Component Value Ref Range Toxoplasma gondii IgG Negative Specimen Performing Laboratory Blood [address] [address] RPR (01/06/2017 1:11 PM) Component Value Ref Range RPR Nonreactive Nonreactive Specimen Performing Laboratory Blood [address] [address] Cytomegalovirus antibody, IgG (01/06/2017 1:11 PM) Component Value Ref Range CMV IgG Negative Specimen Performing Laboratory Blood [address] [address] Reticulocyte count (01/06/2017 1:11 PM) Component Value Ref Range % Retic 1.2 0.5 - 1.7 % Specimen Performing Laboratory Blood [address] [address] Direct AHG (AMPARO)/Direct Mike (01/06/2017 1:11 PM) Component Value Ref Range Direct AHG-IGG NEGATIVE Direct AHG-C3B, C3D NEGATVIE Specimen Performing Laboratory Blood [address] [address] Immunofixation electrophoresis (YOANNA) (01/06/2017 1:11 PM) Component Value Ref Range IgG 2035 (H) 540 - 1822 mg/dL IgA 148 63 - 484 mg/dL IgM 125 22 - 293 mg/dL Serum YOANNA Identification Polyclonal distribution of immunoglobulins; no monoclonal proteins detected. Small band seen on SPEP, therefore, is likely due to presence of fibrinogen in the sample. Pathologist: Pat Pinzon MD (electronic signature) Specimen Performing Laboratory [address] [address] Narrative Do not collect, specimen already in lab. Varicella zoster antibody, IgG (01/06/2017 1:11 PM) Component Value Ref Range Varicella IgG 5.8 Al Specimen Performing Laboratory Blood [address] [address] Narrative VARICELLA ZOSTER RESULT INTERPRETATIONS: <=0.8 AlNonreactive:Presumed non-immune to VZV 0.9-1.0 AlEquivocal >=1.1 AlReactive:Presumed immune to VZV Anti-Nuclear Antibody (MILTON) (01/06/2017 1:11 PM) Component Value Ref Range MILTON Positive (A) Negative Specimen Performing Laboratory Blood [address] [address] Uric acid (01/06/2017 1:11 PM) Component Value Ref Range Uric Acid 3.3 2.6 - 7.2 mg/dL Specimen Performing Laboratory Blood [address] [address] Transferrin (01/06/2017 1:11 PM) Component Value Ref Range Transferrin 122 (L) 174 - 382 mg/dL Specimen Performing Laboratory Blood [address] [address] TSH (01/06/2017 1:11 PM) Component Value Ref Range TSH 0.98 0.35 - 4.94 uIU/mL Specimen Performing Laboratory Blood [address] [address] Protein electrophoresis, serum (01/06/2017 1:11 PM) Component Value Ref Range Albumin Fraction 2.0 (L) 3.5 - 5.5 g/dL Alpha 1 Fraction 0.3 0.2 - 0.4 g/dL Alpha 2 Fraction 0.6 0.5 - 0.9 g/dL Beta Fraction 0.9 0.6 - 1.1 g/dL Gamma Globulin Fraction 1.9 (H) 0.7 - 1.7 g/dL Interpretation There is a peak in the gamma region that may indicate a monoclonal gammopathy. Refer to serum immunofixation electrophoresis. Pathologist: Anne Yen MD (electronic signature) Protein, Total 5.7 (L) 6.0 - 8.3 gm/dL Specimen Performing Laboratory [address] [address] Narrative Do not collect, specimen already in lab. Prealbumin (01/06/2017 1:11 PM) Component Value Ref Range Prealbumin 14 14 - 45 mg/dL Specimen Performing Laboratory [address] [address] Lipase (01/06/2017 1:11 PM)Only the most recent of2 resultswithin the time period is included. Component Value Ref Range Lipase 46 8 - 78 U/L Specimen Performing Laboratory Blood [address] [address] Iron, serum (01/06/2017 1:11 PM) Component Value Ref Range Iron 23 (L) 40 - 160 ug/dL Specimen Performing Laboratory Blood [address] [address] Gamma Glutamyl Transferase (GGT) (01/06/2017 1:11 PM) Component Value Ref Range GGT 15 9 - 64 U/L Specimen Performing Laboratory [address] [address] Ferritin (01/06/2017 1:11 PM) Component Value Ref Range Ferritin 216 5 - 275 ng/mL Specimen Performing Laboratory Blood [address] [address] Creatinine (01/06/2017 1:11 PM) Component Value Ref Range Creatinine 6.49 (H) 0.57 - 1.25 mg/dL EGFR 8Comment: ESTIMATED GFR IS NOT ACCURATE CREATININE mL/min/1.73 sq m CLEARANCE IN PREDICTING GLOMERULAR FILTRATION RATE. ESTIMATED GFR IS NOT APPLICABLE FOR DIALYSIS PATIENTS. Specimen Performing Laboratory Blood [address] [address] Amylase (01/06/2017 1:11 PM) Component Value Ref Range Amylase 60 25 - 125 U/L Specimen Performing Laboratory Blood [address] [address] HLA Testing (External Results) (01/06/2017 1:09 PM) Component Value Ref Range HLA TESTING (EXTERNAL) See Separate Report Specimen Performing Laboratory Blood - Arm, Left [facility]ALUATION [facility] [place], [place]:[facility] [address] [place] [address] Flow PRA Class I and II (01/06/2017 12:00 PM) Component Value Ref Range Date of Serum 534235 Serum# [id number] Flow PRA Class I and II See Scanned Report Specimen Performing Laboratory Blood [facility] [place], [place]:[facility] [address] [place] [address] IR Tunneled Catheter Insertion (01/05/2017 6:43 PM) Specimen Performing Laboratory GE RIS Narrative FINAL REPORT Tunneled dialysis catheter insertion, 01/05/2017. History: Renal failure. Modality: Sonography and fluoroscopy. Sedation: Versed 1.0 mg and fentanyl 50 mcg was given intravenously for conscious sedation.Vital signs were monitored throughout the procedure by a nurse, and remained stable. Physician intra-service time was 20 minutes. Manager In Home:Richard. Bitumen Plant Operator: Rolf. Approach: Right internal jugular vein Estimated blood loss:< 5 cc. Specimen: None. Fluoroscopy Time: 0.4 min.Dose (Ka,r): 1.1 mGy. Technique: Informed written consent was obtained.Discussion of risks, benefits, and alternatives were made with the patient. The patient expressed understanding and agreed to proceed.All elements maximal sterile barrier technique was utilized [...] direct real-time ultrasound guidance with a micropuncture needle.An ultrasound image was saved to PACS. A 0.018 inch wire was placed through the needle into the right atrium. A 4 [place] Helenian micropuncture sheath was placed.A subcutaneous tunnel was created in the right anterior chest wall by blunt dissection.A [address] Helenian Duraflow 2 catheter was brought through the tunnel. The vessel tract was serially dilated over a J-wire. A peel-away sheath was placed in the right IJ vein and the catheter was advanced through the sheath, with its distal tip terminating in the right atrium.The peel-away sheath was removed. The ports were flushed and aspirated easily following placement.The catheter was sutured to the skin with 2-0 silk to secure its placement.The small jugular incision site was closed using resorbable suture. Vital signs were monitored throughout the procedure by a nurse, and remained stable.The patient tolerated the procedure well and left the department in the same condition.The patient was given 1 gram of Ancef intravenously during the procedure. Results:Spot radiograph of the chest demonstrates the new dialysis catheter to lie in the expected position with its tip overlying the superior right atrium. Impression: Successful, uncomplicated placement of a right internal jugular tunneled dialysis catheter using sonographic and fluoroscopic guidance and conscious sedation. Signed: Jerrod Ramírez MD Report Verified Date/Time:01/06/2017 17:45:51 Reading Location: [facility] [id number] Ultrasound Reading Room Procedure Note Interface, External Ris In - 01/06/2017 5:48 PM CDT FINAL REPORT Tunneled dialysis catheter insertion, 01/05/2017. History: Renal failure. Modality: Sonography and fluoroscopy. Sedation: Versed 1.0 mg and fentanyl 50 mcg was given intravenously for conscious sedation. Vital signs were monitored throughout the procedure by a nurse, and remained stable. Physician intra-service time was 20 minutes. Manager In Home: Richard. Bitumen Plant Operator: Rolf. Approach: Right internal jugular vein Estimated blood loss: < 5 cc. Specimen: None. Fluoroscopy Time: 0.4 min. Dose (Ka,r): 1.1 mGy. Technique: Informed written consent was obtained. Discussion [...] saved to PACS. A 0.018 inch wire was placed through the needle into the right atrium. A 4 [place] Helenian micropuncture sheath was placed. A subcutaneous tunnel was created in the right anterior chest wall by blunt dissection. A [address] Helenian Duraflow 2 catheter was brought through the [...] sonographic and fluoroscopic guidance and conscious sedation. Signed: Jerrod Ramírez MD Report Verified Date/Time: 01/06/2017 17:45:51 Reading Location: [address] Ultrasound Reading Room CARDIOGRAM REPORT - SCAN (01/05/2017 10:08 AM)Only the most recent of2 resultswithin the time period is included.2D Echo W/Doppler(CW/PW/Color) (2016 10:22 PM) Component Value Ref Range Ejection Fraction Specimen Performing Laboratory [facility] ECHO HEARTLAB MKCKESSON CPACS Narrative Transthoracic Echocardiography Report (TTE) Demographics Patient Name YAMILE BROOKE Date of Study 01/04/2017 DEVIN [id number] GenderFemale Visit Number [id number] RaceUnknon [id number] Number [id number] Number Date of Birth1970 Referring Physician Robinson Vigil MD Age46 year(s) 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 Clinical History HGB 8.3 HCT 26.9 % ESRD, DM, HTN, CHF, CAD, ICMP Height: 68 inches Weight: 71.67 kg (158 lbs) BSA: 1.85 m^2 BMI: 24.02 kg/m^2 HR: 77 bpm BP: 107/66 mmHg Summary Grade 1 diastolic dysfunction (impaired relaxation and low-normal LA pressure). Grade 2 diastolic dysfunction (moderately increased LA pressure). Normal right ventricle structure and function. Estimated peak systolic PA pressure cannot be determined due to inadequate TR velocity signal . A left and right pleural effusion is noted. Ascites noted. Previous Study In comparison with the prior exam 01/01/2017 the following changes are noted: LV systolic function improved. Tachycardia resolved. . Signature Findings Technical Quality: Technically adequate exam. Left Ventricle The LV endocardium is adequately visualized. The left ventricle is chamber size (by PSLAX dimension) is mildly enlarged ( female - LVIDd 5.3-5.6cm) . No evidence of LV hypertrophy. All of the LV segments are moderately hypokinetic . Estimated LVEF by qualitative assessment is moderately reduced (37%) . The LVEF was measured using Vigil's bi-plane method of disk . Grade 2 diastolic dysfunction (moderately increased LA pressure). Left AtriumLA size is moderately enlarged (42-48 ml/m2 ) . Right VentricleNormal right ventricle structure and function. Right Atrium Normal right atrium. Aortic Valve Normal aortic valve structure and function. Mitral Valve Mild MV leaflet thickening. Tricuspid ValveNormal tricuspid valve structure and function. No evidence of tricuspid regurgitation. Estimated peak systolic PA pressure cannot be determined due to inadequate TR velocity signal . Pulmonic Valve Normal PV structure and function by limited views and Doppler. AortaAortic root size (SInus of Valsalva diameter) is normal . PericardiumNo evidence of pericardial effusion. IVC/SVC/PA/PV/PleuralThe estimated RA pressure by IVC dynamics 0-5mmHg . A left and right pleural effusion is noted. Ascites noted. Chambers/Structures Left Atrium LA Dimension: 3.92 cmLA Area: 21.19 cm^2 LA Volume: 86.85 ml LA Vol. Index: 47 ml/m^2 Left Ventricle LVIDd: 5.54 cmLVEDV 2D:116.17 ml LVIDs: 4.35 cmLVESV 2D :73.06 ml LV Septum Diastolic: 0.98 cm LV PW Diastolic: 0.97 cm LV FS: 21.5 % LV ESV (Cubed):82.31 cc LVOT Diameter: 2.06 cm LV ESV (Teich):85.36 ml LV SV (Teich):64.54 ml LV SI (Teich):34.89 ml/m^2 LVEF 2D Teich: 37.1 % Shunts QS:49.99 ml Doppler/Quantitative Measurements Aortic Valve Peak Velocity: 1.18 m/sMean Velocity: 0.92 m/s Peak Gradient: 5.53 mmHg Mean Gradient: 3.58 mmHg AV Area (continuity): 2.26 cm^2 AV VTI: 22.07 cm AV DVI: 0.68 LVOT Peak Velocity: 0.89 m/s Peak Gradient: 3.14 mmHg Mean Velocity: 0.58 m/s Mean Gradient: 1.59 mmHg LVOT Diameter: 2.06 cmLVOT VTI: 15 cm LVOT Area: 3.33 cm^2LVOT SV:49.97 ml LVOT CO: 3.85 l/min LVOT CI: 2.08 l/min/m^2 Procedure Note Interface, External Ris In - 01/05/2017 9:07 AM CDT Transthoracic Echocardiography Report (TTE) Demographics Patient Name YAMILE BROOKE Date of Study 01/04/2017 DEVIN Gender Female Visit Number [id number] Race Unknown Room Number 7604 Number Date of 1970 Referring Physician Robinson Vigil MD Age 46 year(s) 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 Clinical History HGB 8.3 HCT 26.9 % ESRD, DM, HTN, CHF, CAD, ICMP Height: 68 inches Weight: 71.67 kg (158 lbs) BSA: 1.85 m^2 BMI: 24.02 kg/m^2 HR: 77 bpm BP: 107/66 mmHg Summary Grade 1 diastolic dysfunction (impaired relaxation and low-normal LA pressure). Grade 2 diastolic dysfunction (moderately increased LA pressure). Normal right ventricle structure and function. Estimated peak systolic PA pressure cannot be determined due to inadequate TR velocity signal . A left and right pleural effusion is noted. Ascites noted. Previous Study In comparison with the prior exam 01/01/2017 the following changes are noted: LV systolic function improved. Tachycardia resolved. . Signature Findings Technical Quality: Technically adequate exam. Left Ventricle The LV endocardium is adequately visualized. The left ventricle is chamber size (by PSLAX dimension) is mildly enlarged (female - LVIDd 5.3-5.6cm) . No evidence of LV hypertrophy. All of the LV segments are moderately hypokinetic . Estimated LVEF by qualitative assessment is moderately reduced (37%) . The LVEF was measured using Vigil's bi-plane method of disk . Grade 2 diastolic dysfunction (moderately increased LA pressure). Left Atrium LA size is moderately enlarged (42-48 ml/m2) . Right Ventricle Normal right ventricle structure and function. Right Atrium Normal right atrium. Aortic Valve Normal aortic valve structure and function. Mitral Valve Mild MV leaflet thickening. Tricuspid Valve Normal tricuspid valve structure and function. No evidence of tricuspid regurgitation. Estimated peak systolic PA pressure cannot be determined due to inadequate TR velocity signal . Pulmonic Valve Normal PV structure and function by limited views and Doppler. Aorta Aortic root size (SInus of Valsalva diameter) is normal . Pericardium No evidence of pericardial effusion. IVC/SVC/PA/PV/Pleural The estimated RA pressure by IVC dynamics 0-5mmHg . A left and right pleural effusion is noted. Ascites noted. Chambers/Structures Left Atrium LA Dimension: 3.92 cm LA Area: 21.19 cm^2 LA Volume: 86.85 ml LA Vol. Index: 47 ml/m^2 Left Ventricle LVIDd: 5.54 cm LVEDV 2D:116.17 ml LVIDs: 4.35 cm LVESV 2D:73.06 ml LV Septum Diastolic: 0.98 cm LV PW Diastolic: 0.97 cm LV FS: 21.5 % LV ESV (Cubed):82.31 cc LVOT Diameter: 2.06 cm LV ESV (Teich):85.36 ml LV SV (Teich):64.54 ml LV SI (Teich):34.89 ml/m^2 LVEF 2D Teich: 37.1 % Shunts QS:49.99 ml Doppler/Quantitative Measurements Aortic Valve Peak Velocity: 1.18 m/s Mean Velocity: 0.92 m/s Peak Gradient: 5.53 mmHg Mean Gradient: 3.58 mmHg AV Area (continuity): 2.26 cm^2 AV VTI: 22.07 cm AV DVI: 0.68 LVOT Peak Velocity: 0.89 m/s Peak Gradient: 3.14 mmHg Mean Velocity: 0.58 m/s Mean Gradient: 1.59 mmHg LVOT Diameter: 2.06 cm LVOT VTI: 15 cm LVOT Area: 3.33 cm^2 LVOT SV:49.97 ml LVOT CO: 3.85 l/min LVOT CI: 2.08 l/min/m^2 Glucose (01/04/2017 4:11 PM) Component Value Ref Range Glucose 140 (H) 70 - 105 mg/dL Specimen Performing Laboratory Blood [address] [address] AFB culture + smear (01/04/2017 12:23 PM)Only the most recent of3 resultswithin the time period is included. Component Value Ref Range Result No acid-fast bacilli isolated in 42 days AFB Smear No acid fast bacilli seen Specimen Performing Laboratory Wound - Abdomen [address] [address] Anaerobic culture (01/04/2017 12:23 PM)Only the most recent of2 resultswithin the time period is included. Component Value Ref Range Result No anaerobes isolated Specimen Performing Laboratory Wound - Abdomen [address] [address] Surgically obtained culture + gram stain (01/04/2017 12:23 PM)Only the most recent of2 resultswithin the time period is included. Component Value Ref Range Result Result 2+ Coagulase negative Staphylococcus (A) Result 4+ Diphtheroid (A) Gram Stain Result <1+ WBCs Gram Stain Result No organisms seen Specimen Performing Laboratory Body Fluid - Catheter Tip [address] [address] Organism Antibiotic Method Susceptibility Coagulase negative Clindamycin >=4: Resistant Staphylococcus Coagulase negative Erythromycin >=8: Resistant Staphylococcus Coagulase negative Levofloxacin >=8: Resistant Staphylococcus Coagulase negative Linezolid 1: Susceptible Staphylococcus Coagulase negative Oxacillin >=4: Resistant Staphylococcus Coagulase negative Rifampin <=0.5: Susceptible Staphylococcus Coagulase negative Tetracycline 2: Susceptible Staphylococcus Coagulase negative Trimethoprim + 160: Resistant Staphylococcus Sulfamethoxazole Coagulase negative Vancomycin 1: Susceptible Staphylococcus Fungus culture + smear (01/04/2017 12:23 PM)Only the most recent of3 resultswithin the time period is included. Component Value Ref Range Result No fungus isolated in 28 days Fungus Smear No fungi seen Specimen Performing Laboratory Wound - Abdomen [address] [address] SPIN/CONCENTRATION CHARGE (01/04/2017 12:23 PM) Component Value Ref Range Concentration charged Done Specimen Performing Laboratory Wound - Abdomen [address] [address] Tissue Exam (01/04/2017 10:55 AM) Component Value Ref Range Case Report Surgical Pathology Report Case: [id number] Authorizing Provider:Fabi Parekh MD Collected: 01/04/2017 1055 Ordering Location: [facility] Received: 01/04/2017 1314 PERIOPERATIVE SERVICES Pathologist: Judit Medel MD Specimen:Hernia, Hernia Sac DIAGNOSIS HERNIA SAC, ABDOMINAL, INCISIONAL HERNIA, REPAIR: - FIBROADIPOSE TISSUE AND REACTIVE CHANGS WITH FOREIGN BODY GIANT CELLS , CONSISTENT WITH INCISIONAL HERNIA SAC Signing Pathologist Direct Phone Line: [phone] CPT Code(s) 16148 CLINICAL HISTORY End-stage renal disease, incisional hernia sac SPECIMEN SOURCE Hernia sac GROSS DESCRIPTION Received fresh labeled "hernia", description "hernia sac" is an 8.3 x 7.3 x 1.0 cm, dark-red to corral-white, irregular, rubbery, wrinkled portion of fibromembranous soft tissue. Sectioning reveals no discrete masses. Cop Breaker sections are submitted in cassette A1. DB/ew MICROSCOPIC DESCRIPTION Performed. Specimen Performing Laboratory Tissue - Hernia [address] [address] hCG, quantitative, (01/04/2017 5:38 AM) Component Value Ref Range hCG Quant <1 0 - 10 mIU/mL Specimen Performing Laboratory Blood [address] [address] Narrative Non- Females: <10 mIU/mL Females: Gestation AgeReference Range(mIU/mL) 0.2-1 Week5-50 1-2 Rommg69-811 2-3 Weeks 100-5,000 3-4 Weeks 500-10,000 4-5 Weeks 1,000-50,000 5-6 Weeks10,000-100,000 6-8 Weeks15,000-200,000 2-3 Months 10,000-100,000 Vein mapping arm/arms (01/03/2017 12:23 AM) Component Value Ref Range Ejection Fraction Specimen Performing Laboratory SLE ECHO HEARTLAB MKCKESSON CPACS Impressions Right Impression 1. The jugular vein, proximal subclavian vein and artery are not visualized due to dialysis catheter placement. 2. There is total echolucent deep venous obstruction in one of the paired brachial veins. 3. There is no deep venous obstruction in the axillary, radial or ulnar veins. 4. There is no superficial venous obstruction in the cephalic or basilic veins. 5. The forearm basilic vein is not visualized. The cephalic and basilic veins measurements in transverse are shown below. 6. The subclavian, axillary, brachial, radial and ulnar arteries are patent with normal triphasic Doppler waveform signals. Left Impression 1. There is no deep venous obstruction in the jugular, subclavian, axillary, brachial, radial or ulnar veins. 2. There is no superficial venous obstruction in the cephalic or basilic veins. 3. The forearm basilic vein is not visualized. The cephalic and basilic veins measurements in transverse are shown below. 4. The subclavian, axillary, brachial, radial and ulnar arteries are patent with normal triphasic Doppler waveforms throughout. Conclusions Summary Arterial duplex imaging, venous duplex imaging and compression of both upper extremities was performed. The arteries and veins were adequately visualized except as noted. The arteries were patent with normal triphasic Doppler waveforms bilaterally. The right deep venous system was positive with acute thrombus and the superficial venous system was patent and compressible with no evidence of thrombus in the visualized veins. The left venous system was patent and compressible with no evidence of thrombus in the visualized veins. Superficial venous measurements are documented below. Signature Velocities are measured in cm/s ; Diameters are measured in cm Cephalic Mapping Right Left + + + + + + + + !Location ! !AP Diam! Trans Diam! !AP Diam!Trans Diam! + + + + + + + + !Cephalic at Prox UA ! ! !0.2 ! ! !0.17! + + + + + + + + !Cephalic at Mid UA ! ! !0.25! ! !0.17! + + + + + + + + !Cephalic at Dist UA ! ! !0.22! ! !0.2 ! + + + + + + + + !Cephalic at Prox LA ! ! !0.22! ! !0.16! + + + + + + + + !Cephalic at Mid LA ! ! !0.18! ! !0.11! + + + + + + + + !Cephalic at Dist LA ! ! !0.13! + + + + + Basilic Mapping Right Left + + + + + + + + !Location ! !AP Diam! Trans Diam! !AP Diam!Trans Diam! + + + + + + + + !Basilic at Prox UA ! ! !0.64! ! !0.5 ! + + + + + + + + !Basilic at Mid UA ! ! !0.45! ! !0.39! + + + + + + + + !Basilic at Dist UA ! ! !0.44! ! !0.21! + + + + + + + + Narrative [facility] - Upper Extremities Vein Mapping Demographics Patient Name YAMILE BROOKE Date of Study 01/02/2017 DEVIN [id number] Age 46 Visit Number [id number] Gender Female Accession Number [id number] Date of 1970 [facility] Room Number 7107 Physician SonographerYousuf Long InterpretingChristine Hodges MD, Physician OKSANA Procedure Type of Study: Veins: Upper Extremity Vein Mapping, VEIN MAPPING ARM/ARMS. Indications for Study:Needs AVF. Patient Status:Routine. Study Location:Portable. Technical Quality:Adequate visualization. - Results were reported to: Dr. Strickland @ 12:52 AM. Risk Factors History of Disease + +----+ + !Diagnosis!Date!Comments ! + +----+ + !History/Risk !!ESRD-on dialysis, DM, CAD, H/o CVA, HF, Hepatitis! !Factors: !!C, HTN ! + +----+ + Procedure Note Interface, External Ris In - 01/03/2017 4:46 AM CDT PV [facility] - Upper Extremities Vein Mapping Demographics Patient Name YAMILE BROOKE Date of Study 01/02/2017 DEVIN Age 46 Visit Number [id number] Gender Female Accession Number [id number] Date of 1970 Referring [facility] Room Number 7107 Physician Metal Machine Operator Yousuf Long Interpreting Christine Hodges MD, Physician OKSANA Procedure Type of Study: Veins: Upper Extremity Vein Mapping, VEIN MAPPING ARM/ARMS. Indications for Study:Needs AVF. Patient Status:Routine. Study Location:Portable. Technical Quality:Adequate visualization. - Results were reported to: Dr. Strickland @ 12:52 AM. Risk Factors History of Disease + +----+ + !Diagnosis !Date!Comments ! + +----+ + !History/Risk ! !ESRD-on dialysis, DM, CAD, H/o CVA, HF, Hepatitis! !Factors: ! !C, HTN ! + +----+ + Impressions Right Impression 1. The jugular vein, proximal subclavian vein and artery are not visualized due to dialysis catheter placement. 2. There is total echolucent deep venous obstruction in one of the paired brachial veins. 3. There is no deep venous obstruction in the axillary, radial or ulnar veins. 4. There is no superficial venous obstruction in the cephalic or basilic veins. 5. The forearm basilic vein is not visualized. The cephalic and basilic veins measurements in transverse are shown below. 6. The subclavian, axillary, brachial, radial and ulnar arteries are patent with normal triphasic Doppler waveform signals. Left Impression 1. There is no deep venous obstruction in the jugular, subclavian, axillary, brachial, radial or ulnar veins. 2. There is no superficial venous obstruction in the cephalic or basilic veins. 3. The forearm basilic vein is not visualized. The cephalic and basilic veins measurements in transverse are shown below. 4. The subclavian, axillary, brachial, radial and ulnar arteries are patent with normal triphasic Doppler waveforms throughout. Conclusions Summary Arterial duplex imaging, venous duplex imaging and compression of both upper extremities was performed. The arteries and veins were adequately visualized except as noted. The arteries were patent with normal triphasic Doppler waveforms bilaterally. The right deep venous system was positive with acute thrombus and the superficial venous system was patent and compressible with no evidence of thrombus in the visualized veins. The left venous system was patent and compressible with no evidence of thrombus in the visualized veins. Superficial venous measurements are documented below. Signature Velocities are measured in cm/s ; Diameters are measured in cm Cephalic Mapping Right Left + + + + + + +--- + !Location ! !AP Diam !Trans Diam ! !AP Diam ! Trans Diam ! + + + + + + +--- + !Cephalic at Prox UA ! ! !0.2 ! ! ! 0.17 ! + + + + + + +--- + !Cephalic at Mid UA ! ! !0.25 ! ! ! 0.17 ! + + + + + + +--- + !Cephalic at Dist UA ! ! !0.22 ! ! ! 0.2 ! + + + + + + +--- + !Cephalic at Prox LA ! ! !0.22 ! ! ! 0.16 ! + + + + + + +--- + !Cephalic at Mid LA ! ! !0.18 ! ! ! 0.11 ! + + + + + + +--- + !Cephalic at Dist LA ! ! !0.13 ! + + + + + Basilic Mapping Right Left + + + + + + +--- + !Location ! !AP Diam !Trans Diam ! !AP Diam ! Trans Diam ! + + + + + + +--- + !Basilic at Prox UA ! ! !0.64 ! ! ! 0.5 ! + + + + + + +--- + !Basilic at Mid UA ! ! !0.45 ! ! ! 0.39 ! + + + + + + +--- + !Basilic at Dist UA ! ! !0.44 ! ! ! 0.21 ! + + + + + + +--- + XR chest 1 view portable / bedside (01/02/2017 6:12 PM)Only the most recent of4 resultswithin the time period is included. Specimen Performing Laboratory GE RIS Narrative FINAL REPORT Comparison: 01/01/2017 TECHNIQUE: Single view of the chest FINDINGS: Right pleural effusion has decreased. No pneumothorax bilaterally. No other significant change. Signed: Turner Grier MD Report Verified Date/Time:01/02/2017 18:36:30 Reading Location: [facility] C013W Consult Reading Room Procedure Note Interface, External Ris In - 01/02/2017 6:38 PM CDT FINAL REPORT Comparison: 01/01/2017 TECHNIQUE: Single view of the chest FINDINGS: Right pleural effusion has decreased. No pneumothorax bilaterally. No other significant change. Signed: Turner Grier MD Report Verified Date/Time: 01/02/2017 18:36:30 Reading Location: [facility]013[facility] Consult Reading Room Lactate dehydrogenase (LDH) (01/02/2017 3:59 PM) Component Value Ref Range LDH 300 (H) 125 - 220 U/L Specimen Performing Laboratory Blood - Central Venous Line [address] [address] pH, body fluid (01/02/2017 3:58 PM)Only the most recent of2 resultswithin the time period is included. Component Value Ref Range pH, Body Fluid 7.80 Specimen Performing Laboratory Body Fluid - Pleural, [address] [address] Body fluid culture + gram stain (01/02/2017 3:58 PM)Only the most recent of3 resultswithin the time period is included. Component Value Ref Range Result No growth Gram Stain Result <1+ WBCs Gram Stain Result No organisms seen Specimen Performing Laboratory Body Fluid - Pleural, [address] [address] Body fluid cell count with differential (01/02/2017 3:58 PM)Only the most recent of3 resultswithin the time period is included. Component Value Ref Range Appearance Slightly Hazy (A) Clear Color Yellow (A) Colorless, Straw RBCs 690 (H) <=1 /cu mm Adjusted WBC Count 68 (H) <=5 /cu mm Lining Cells 2 (H) <=1 /cu mm % Segs 2 % % Lymphs 9 % % Monos 89 % % Eos 0 % % Baso 0 % Container Body Fluid EDTA Tube Specimen Performing Laboratory Body Fluid - Pleural, Right [address] [address] Protein, body fluid (01/02/2017 3:58 PM)Only the most recent of2 resultswithin the time period is included. Component Value Ref Range Protein, Fluid 2.1 Light's criteria identifies effusions if one or more are present: Pleural to serum protein ratio of more than 0.5; Pleural to Serum LDH of more than 0.6; Pleural LDH of more than two third of upper serum reference limit g/dL Specimen Performing Laboratory Body Fluid - Pleural, Right [address] [address] Narrative Absence of reference range indicates that normals have not been defined. Assay performance has not been validated for this type of specimen. Lactate dehydrogenase (LDH), body fluid (01/02/2017 3:58 PM)Only the most recent of2 resultswithin the time period is included. Component Value Ref Range LDH, Fluid 123 Light's criteria identifies effusions if one or more are present: Pleural to serum protein ratio of more than 0.5; Pleural to serum LDH ratio of more than 0.6; Pleural LDH more than two third of upper serum reference limit U/L Specimen Performing Laboratory Body Fluid - Pleural, Right [address] [address] Narrative Absence of reference range indicates that normals have not been defined. Assay performance has not been validated for this type of specimen. Hepatitis B Panel (01/02/2017 12:18 PM) Component Value Ref Range Hep B Core Total Ab Nonreactive Nonreactive Hep B S Ab 29.1 (H) <8.0 mIU/mL hepatitis B Surface Ag Nonreactive Nonreactive Specimen Performing Laboratory Blood - Central Venous Line [address] [address] Central Line (01/01/2017 6:48 PM) Narrative Erica Madera NP 01/01/20176:46 PM Central Line- Trialtysis 15cm Date/Time: 01/01/2017 6:42 PM Performed by: ERICA MADERA Authorized by: YING DICKEY Consent: Verbal consent obtained. Written consent obtained. Risks and benefits: risks, benefits and alternatives were discussed Consent given by: patient Patient understanding: patient states understanding of the procedure being performed Patient consent: the patient's understanding of the procedure matches consent given Procedure consent: procedure consent matches procedure scheduled Patient identity confirmed: arm band, verbally with patient and hospital-assigned identification number Time out: Immediately prior to procedure a "time out" was called to verify the correct patient, procedure, equipment, arch support technician and site/side marked as required. Indications: vascular access (dialysis) Anesthesia: local infiltration Anesthesia: Local Anesthetic: lidocaine 1% without epinephrine Anesthetic total: 4 mL Sedation: Patient sedated: no Preparation: skin prepped with 2% chlorhexidine Skin prep agent dried: skin prep agent completely dried prior to procedure Sterile barriers: all five maximum sterile barriers used - cap, mask, sterile gown, sterile gloves, and large sterile sheet Hand hygiene: hand hygiene performed prior to central venous catheter insertion Location details: right internal jugular Ultrasound guidance: yes Sterile ultrasound techniques: sterile gel and sterile probe covers were used Number of attempts: 1 Successful placement: yes Post-procedure: line sutured and dressing applied Assessment: blood return through all ports,free fluid flow,placement verified by x-ray and no pneumothorax on x-ray Patient tolerance: Patient tolerated the procedure well with no immediate complications Immediate Post-Procedure Note Date/Time: 01/01/2017 6:43 PM Assistants to the procedure: None Pre-procedure diagnosis: sob Post-procedure diagnosis: same Procedures Performed: Central Line- Trialtysis 15cm Specimens removed: None : 3ml. Complications: None Type of anesthesia: None Grafts or Implants: None Comments: 13 Fr 15 cm Trialysis catheter inserted with Seldinger technique. Sterility maintained throughout. No immediate complications. Comprehensive metabolic panel (01/01/2017 6:20 PM) Component Value Ref Range Protein, Total 7.3Comment: Specimen slightly hemolyzed 6.0 - 8.3 gm/dL Albumin 2.4 (L)Comment: Specimen slightly hemolyzed 3.5 - 5.0 g/dL Alkaline Phosphatase 74 40 - 150 U/L Total Bilirubin 0.5Comment: Specimen slightly hemolyzed 0.2 - 1.2 mg/dL Sodium 135 (L) 136 - 145 meq/L Potassium 5.7 (H)Comment: Specimen slightly hemolyzed 3.5 - 5.1 meq/L Chloride 97 (L) 98 - 107 meq/L CO2 26 22 - 29 meq/L BUN 72 (H) 7 - 21 mg/dL Creatinine 17.18 (H)Comment: Specimen slightly hemolyzed 0.57 - 1.25 mg/dL Glucose 70 70 - 105 mg/dL Calcium 8.8 8.4 - 10.2 mg/dL AST 37 (H)Comment: Specimen slightly hemolyzed 5 - 34 U/L ALT 30Comment: Specimen slightly hemolyzed 6 - 55 U/L EGFR 3Comment: ESTIMATED GFR IS NOT ACCURATE mL/min/1.73 sq m CREATININE CLEARANCE IN PREDICTING GLOMERULAR FILTRATION RATE. ESTIMATED GFR IS NOT APPLICABLE FOR DIALYSIS PATIENTS. Specimen Performing Laboratory Blood - Arm, Left [address] [address] Lactic acid, arterial, whole blood (01/01/2017 4:43 PM) Component Value Ref Range Lactate, Art 0.9Comment: Specimen slightly hemolyzed 0.5 - 2.2 mmol/L Specimen Performing Laboratory Blood, Arterial - Arm, Right [address] [address] Narrative Effective 07/15/2015: Units/Reference Range Change New: 0.5-2.2 mmol/LPrevious: 5-20 mg/dL Transthoracic 2D echo w contrast & doppler (01/01/2017 4:38 PM) Component Value Ref Range Ejection Fraction Specimen Performing Laboratory [facility] ECHO HEARTLAB MK[facility] Narrative Transthoracic Echocardiography Report (TTE) Demographics Patient Name YAMILE BROOKE Date of Study 01/01/2017 DEVIN [id number] GenderFemale Visit Number [id number] RaceUnknown [id number] Number [id number] Number Date of Birth1970 Referring Physician Wanda Alexis Age46 year(s) Metal Machine Operator Lilliana Rojas, CS AnalystContreras AriadnaInterpreting Obie Clark, Physician Procedure Type of Study TTE procedure:2DECHO W/CONTRAST & DOPPLER (FRANDY) Indications:Shortness of breath. Clinical History HGB 9.9 HCT 30.7 % Congestive Heart Failure Coronary Artery Disease Diabetes ESRD Hepatitis C Hypertension Stroke/TIA S/P PCI (06/06/16) Contrast Medium: Bubble Study. Height: 68 inches Weight: 76.66 kg (169 lbs) BSA: 1.9 m^2 BMI: 25.7 kg/m^2 HR: 114 bpm BP: 177/113 mmHg Summary The LV endocardium is adequately visualized. The left ventricle is chamber size (by vol index) is normal (male - LVED vol - 34-74ml/m2). No evidence of LV hypertrophy. All of the LV segments are severely hypokinetic . LVEF by Vigil's method of disk assessment is severely reduced (20-24%) . Degree of diastolic dysfunction (LAP assessment) is inconclusive due to tachycardia . RV chamber size is normal . Global RV systolic function is depressed . IV saline contrast injection was negative for a PFO (patent foramen ovale) at rest and post Valsalva . No pericardial effusion is visualized. A large left pleural effusion is noted. Possible atelectasia. Right pleural effusion noted. Previous Study Compared to the previous study 06/05/2016 , The EF is severely reduced likely 23%. Signature Findings Rhythm/BPSinus tachycardia during the exam. Left Ventricle The LV endocardium is adequately visualized. The left ventricle is chamber size (by vol index) is normal (male - LVED vol - 34-74ml/m2). No evidence of LV hypertrophy. All of the LV segments are severely hypokinetic . LVEF by Vigil's method of disk assessment is severely reduced (20-24%) . Degree of diastolic dysfunction (LAP assessment) is inconclusive due to tachycardia . Left AtriumLA is adequately visualized. LA size is moderately enlarged (42-48 ml/m2) . Right VentricleRV chamber size is normal . Global RV systolic function is depressed . Right Atrium RA size is normal. Atrial SeptumNormal interatrial septum by available views. IV saline contrast injection was negative for a PFO (patent foramen ovale) at rest and post Valsalva . Aortic Valve Normal AoV structure and function. Mitral Valve Normal MV structure and function. Tricuspid ValveNormal TV structure and function by available views and Doppler. No evidence of tricuspid regurgitation. Pulmonic Valve Normal PV structure and function by limited views and Doppler. AortaAortic root size (SInus of Valsalva diameter) is normal . PericardiumNo pericardial effusion is visualized. IVC/SVC/PA/PV/PleuralA large left pleural effusion is noted. Possible atelectasia. Right pleural effusion noted. The inferior vena cava is not well visualized. Ascites is visualized Chambers/Structures Left Atrium LA Dimension: 4.31 cm LA Area: 24 cm^2 LA Volume: 84.1 ml LA Vol. Index: 44 ml/m^2 Left Ventricle LVIDd: 5.42 cm LVEDV 2D:121.92 ml LV Septum Diastolic: 0.99 cmLVESV 2D:96.05 ml LV PW Diastolic: 1.06 cm LVEDV BP Vigil's:124 ml LVESV BP Vigil's:95.94 ml LVEF BP Vigil's: 22 % LVOT Diameter: 2.03 cm LVEF 2D Teich: 21.2 % Right Atrium RA Vol. (Sngl Plane): 17.83 ml Right Ventricle TAPSE: 1.65 cm Aorta Ao Annulus: 2.05 cmAscending Aorta: 3.09 cm Ao Root S of Erika.: 2.7 cm Shunts QS:49.26 ml Doppler/Quantitative Measurements Mitral Valve MV Peak E-Wave: 1.09 m/s MV Peak A-Wave: 0.41 m/s E/A Ratio: 2.67 Peak Gradient: 4.72 mmHg Decel eration Time: 78.6 msec Tissue Doppler E' Lateral Velocity: 0.19 m/sE/E': 5.84 LVOT Peak Velocity: 0.99 m/s Peak Gradient: 3.93 mmHg Mean Velocity: 0.67 m/s Mean Gradient: 2.09 mmHg LVOT Diameter: 2.03 cmLVOT VTI: 15.22 cm LVOT Area: 3.24 cm^2LVOT SV:49.24 ml LVOT CO: 5.61 l/min LVOT CI: 2.95 l/min/m^2 Procedure Note Interface, External Ris In - 01/02/2017 9:36 AM CDT Transthoracic Echocardiography Report (TTE) Demographics Patient Name YAMILE BROOKE Date of Study 01/01/2017 DEVIN Gender Female Visit Number [id number] Race Unknown Room Number 7107 Number Date of 1970 Referring Physician Wanda Alexis Age 46 year(s) Metal Machine Operator Lilliana Rojas, [facility] Dough Catcher Jeevan Draper Interpreting Obie Clark Physician Procedure Type of Study TTE procedure:2DECHO W/CONTRAST & DOPPLER (FRANDY) Indications:Shortness of breath. Clinical History HGB 9.9 HCT 30.7 % Congestive Heart Failure Coronary Artery Disease Diabetes ESRD Hepatitis C Hypertension Stroke/TIA S/P PCI (06/06/16) Contrast Medium: Bubble Study. Height: 68 inches Weight: 76.66 kg (169 lbs) BSA: 1.9 m^2 BMI: 25.7 kg/m^2 HR: 114 bpm BP: 177/113 mmHg Summary The LV endocardium is adequately visualized. The left ventricle is chamber size (by vol index) is normal (male - LVED vol - 34-74ml/m2). No evidence of LV hypertrophy. All of the LV segments are severely hypokinetic . LVEF by Vigil's method of disk assessment is severely reduced (20-24%) . Degree of diastolic dysfunction (LAP assessment) is inconclusive due to tachycardia . RV chamber size is normal . Global RV systolic function is depressed . IV saline contrast injection was negative for a PFO (patent foramen ovale) at rest and post Valsalva . No pericardial effusion is visualized. A large left pleural effusion is noted. Possible atelectasia. Right pleural effusion noted. Previous Study Compared to the previous study 06/05/2016 , The EF is severely reduced likely 23%. Signature Findings Rhythm/BP Sinus tachycardia during the exam. Left Ventricle The LV endocardium is adequately visualized. The left ventricle is chamber size (by vol index) is normal (male - LVED vol - 34-74ml/m2). No evidence of LV hypertrophy. All of the LV segments are severely hypokinetic . LVEF by Vigil's method of disk assessment is severely reduced (20-24%) . Degree of diastolic dysfunction (LAP assessment) is inconclusive due to tachycardia . Left Atrium LA is adequately visualized. LA size is moderately enlarged (42-48 ml/m2) . Right Ventricle RV chamber size is normal . Global RV systolic function is depressed . Right Atrium RA size is normal. Atrial Septum Normal interatrial septum by available views. IV saline contrast injection was negative for a PFO (patent foramen ovale) at rest and post Valsalva . Aortic Valve Normal AoV structure and function. Mitral Valve Normal MV structure and function. Tricuspid Valve Normal TV structure and function by available views and Doppler. No evidence of tricuspid regurgitation. Pulmonic Valve Normal PV structure and function by limited views and Doppler. Aorta Aortic root size (SInus of Valsalva diameter) is normal . Pericardium No pericardial effusion is visualized. IVC/SVC/PA/PV/Pleural A large left pleural effusion is noted. Possible atelectasia. Right pleural effusion noted. The inferior vena cava is not well visualized. Ascites is visualized Chambers/Structures Left Atrium LA Dimension: 4.31 cm LA Area: 24 cm^2 LA Volume: 84.1 ml LA Vol. Index: 44 ml/m^2 Left Ventricle LVIDd: 5.42 cm LVEDV 2D:121.92 ml LV Septum Diastolic: 0.99 cm LVESV 2D:96.05 ml LV PW Diastolic: 1.06 cm LVEDV BP Vigil's:124 ml LVESV BP Vigil's:95.94 ml LVEF BP Vigil's: 22 % LVOT Diameter: 2.03 cm LVEF 2D Teich: 21.2 % Right Atrium RA Vol. (Sngl Plane): 17.83 ml Right Ventricle TAPSE: 1.65 cm Aorta Ao Annulus: 2.05 cm Ascending Aorta: 3.09 cm Ao Root S of Erika.: 2.7 cm Shunts QS:49.26 ml Doppler/Quantitative Measurements Mitral Valve MV Peak E-Wave: 1.09 m/s MV Peak A-Wave: 0.41 m/s E/A Ratio: 2.67 Peak Gradient: 4.72 mmHg Deceleration Time: 78.6 msec Tissue Doppler E' Lateral Velocity: 0.19 m/s E/E': 5.84 LVOT Peak Velocity: 0.99 m/s Peak Gradient: 3.93 mmHg Mean Velocity: 0.67 m/s Mean Gradient: 2.09 mmHg LVOT Diameter: 2.03 cm LVOT VTI: 15.22 cm LVOT Area: 3.24 cm^2 LVOT SV:49.24 ml LVOT CO: 5.61 l/min LVOT CI: 2.95 l/min/m^2 Blood gas, arterial (01/01/2017 3:56 PM) Component Value Ref Range pH, Arterial 7.40 7.35 - 7.45 pCO2, Arterial 48 (H) 35 - 45 mmHg pO2, Arterial 80 80 - 90 mmHg O2 Sat, Arterial 96.0 96.0 - 97.0 % HCO3, Arterial 29 21 - 29 mmol/L Base Excess, Arterial 3.6 (H) -2.0 - 3.0 mmol/L Patient Temperature 36.5 C FIO2 21.0 % Specimen Performing Laboratory Blood, Arterial - Arm, [address] [address] Procalcitonin (01/01/2017 3:50 PM) Component Value Ref Range Procalcitonin 0.72 (H) <0.05 ng/mL Specimen Performing Laboratory Blood - Arm, Left [address] [address] Narrative SEPSIS RISK (ng/mL) Low:0.05-0.50 Intermediate: 0.51-2.00 High: >=2.01 Calcium, Ionized (01/01/2017 3:50 PM) Component Value Ref Range Calcium, Ion 1.00 (L) 1.12 - 1.27 mmol/L pH, Blood 7.36 Specimen Performing Laboratory Blood - [place], [address] [address] B-type Natriuretic Factor (BNP) (01/01/2017 3:50 PM) Component Value Ref Range BNP 2749 (H) 0 - 100 pg/mL Specimen Performing Laboratory Blood - [place], [address] [address] Ammonia (01/01/2017 3:50 PM) Component Value Ref Range Ammonia 9 (L)Comment: Specimen markedly hemolyzed 18 - 72 mol/L Specimen Performing Laboratory Blood - [place], [address] [address] Blood culture #2 (01/01/2017 3:49 PM)Only the most recent of2 resultswithin the time period is included. Component Value Ref Range Result No growth in 5 days Specimen Performing Laboratory Blood - [place], [address] [address] Glucose, body fluid (12/12/2016 4:46 PM) Component Value Ref Range Glucose, Body Fluid 172 mg/dL Specimen Performing Laboratory Body Fluid - Thoracentesis [address] [address] Narrative Absence of reference range indicates that normals have not been defined. Assay performance has not been validated for this type of specimen. RIGHT THORACENTESIS, PLEURAL FLUID RIGHT THORACENTESIS, PLEURAL FLUID RIGHT THORACENTESIS, PLEURAL FLUID RIGHT THORACENTESIS, PLEURAL FLUID RIGHT THORACENTESIS, PLEURAL FLUID RIGHT THORACENTESIS, PLEURAL FLUID Adenosine Deaminase, Fluid (12/12/2016 4:46 PM) Component Value Ref Range Adenosine Deaminase 3.7 <9.2 U/L Comment: REFERENCE INTERVAL: ADENOSINE DEAMINASE Tuberculosismean 92.1 U/L Metastatic malignancies mean 23.3 U/L Mesotheliomas mean 34.9 U/L Pulmonary embolismmean 23.8 U/L Lymphomamean 64.3 U/L This test was performed using a kit that has not been cleared or approved by the FDA.The analytical performance characteristics of this test have been determined by [facility], [place], [place].This test should not be used for diagnosis without confirmation by other medically established means. Specimen Performing Laboratory Body Fluid - Thoracentesis [facility] [address] [place] [address] Narrative Performing Lab [address] [facility], [address] [facility] [place], [place] Adriano Cardona MD, PhD Body fluid crystals (12/12/2016 4:46 PM) Component Value Ref Range Body Fluid Crystals No crystals seen. Pathologist: Anne Yen MD (electronic signature) Specimen Performing Laboratory Body [place]uid [place] [address] Specific gravity, body fluid (12/12/2016 4:46 PM) Component Value Ref Range Spec [place] 1.019 Specimen Performing Laboratory Body Fluid - Thoracentesis [address] [address] Narrative Reference Range: No Normals Amylase, body fluid (12/12/2016 4:46 PM) Component Value Ref Range Amylase, Fluid 39 U/L Specimen Performing Laboratory Body Fluid - Thoracentesis [address] [address] Narrative Absence of reference range indicates that normals have not been defined. Assay performance has not been validated for this type of specimen. RIGHT THORACENTESIS, PLEURAL FLUID RIGHT THORACENTESIS, PLEURAL FLUID RIGHT THORACENTESIS, PLEURAL FLUID RIGHT THORACENTESIS, PLEURAL FLUID RIGHT THORACENTESIS, PLEURAL FLUID RIGHT THORACENTESIS, PLEURAL FLUID Albumin, body fluid (12/12/2016 4:46 PM) Component Value Ref Range Albumin, Fluid 0.9 gm/dL Specimen Performing Laboratory Body Fluid - Thoracentesis [address] [address] Narrative Reference Range:No Normals Assay performance has not been validated for this type of specimen. RIGHT THORACENTESIS, PLEURAL FLUID RIGHT THORACENTESIS, PLEURAL FLUID RIGHT THORACENTESIS, PLEURAL FLUID RIGHT THORACENTESIS, PLEURAL FLUID RIGHT THORACENTESIS, PLEURAL FLUID RIGHT THORACENTESIS, PLEURAL FLUID Creatinine, body fluid (12/12/2016 4:46 PM) Component Value Ref Range Creat, Fluid 15.62 mg/dL Specimen Performing Laboratory Body [place]uid [place] [address] Narrative Reference Range:No Normals Assay performance has not been validated for this type of specimen. RIGHT THORACENTESIS, PLEURAL FLUID RIGHT THORACENTESIS, PLEURAL FLUID RIGHT THORACENTESIS, PLEURAL FLUID RIGHT THORACENTESIS, PLEURAL FLUID RIGHT THORACENTESIS, PLEURAL FLUID RIGHT THORACENTESIS, PLEURAL FLUID Cytology (12/12/2016 3:40 PM) Component Value Ref Range Case Report Medical Cytology Report Case: [id number] Authorizing Provider:Verena Carrero MDCollected: 12/12/2016 1540 [facility]2016 1002 Pathologist: Gokul Hood MD Specimen:Pleural, Right DIAGNOSIS RIGHT PLEURAL FLUID (CYTOSPINS): - NEGATIVE FOR MALIGNANT CELLS Signing Pathologist Direct Phone Line: [phone] COMMENT Reactive mesothelial cells are noted. CPT Code(s) 12542 CLINICAL DATA Right pleural effusion; CHF SPECIMEN SOURCE RIGHT PLEURAL FLUID GROSS DESCRIPTION 4 cytospins prepared from 200 ml yellow fluid Collected: [id number] Received: [id number] STATEMENT OF ADEQUACY Satisfactory Technical component was performed at [facility], Department of Pathology, [address] [place] [address], Professional component was performed [facility], at Department of Pathology, [address] [place] [address], Specimen Performing Laboratory Body Fluid - Pleural, [place] [address] after 11/13/2016
--- OUTSIDE RECORDS SUMMARY | 2017-11-14 10:30 | XMS REPORT | Continuity of Care Document ---
:1970 Author Organization Interface Problems Problem Status Onset Classification Date Comments Source Date Reported NOSE BLEED Active [facility] 6 Yovani UNK Active [facility] 6 Discharge 06/20/2015 [facility] Diagnosis: 6 N&V VOMITING/CHIL Active [facility] LS 6 Discharge 09/01/2014 [facility] Diagnosis: 5 Acute headache VOMITING Active [facility] 5 Diabetes Resolved Problem 05/21/2016 [facility] [place] ESRD (<span Active Problem 05/21/2016 [facility] ID="[id number] [facility] 545">Arlene [facility] d</span>) [facility] H/O: migraine Resolved Problem 05/21/2016 [facility] [place] Heartburn Resolved Problem 05/21/2016 [facility] [place] High blood Resolved Problem 05/21/2016 [facility] pressure [place],[facility] SOB (<span Resolved Problem 05/21/2016 [facility] ID="[id number] [facility] [id number]">Confirmmanoj [facility] d</span>) [facility] Medications Medication Details Route Status Patient Ordering Order Source Instructions Provider Date Hydromorphone 0.3 mg, 0.3 No Longer mL, Route: Active 2015 IVP, Drug form: INJ, Q3H, Dosing Weight 86.364, kg, PRN Pain Score 4-6, Start date: 07/01/15 15:49:00 CDT, Duration: 30 day, Stop date: 07/31/15 15:48:00 CDT Promethazine 6.25 mg, Inactive Route: IVPB, 2015 ONCE, Dosing Weight 94.119, kg, PRN Nausea & Vomiting, Start date: 07/01/15 15:39:00 CDT Flumazenil 0.2 mg, 2 mL, Inactive Route: IVP2015 [facility] Drug form: INJ, PRN, Dosing Weight 94.119, kg, PRN Benzodiazepine Reversal, Initial dose, Start date: 07/01/15 15:39:00 CDT, Duration: 30 day, Stop date: 07/31/15 15:38:00 CDTNotes: (Same as: Romazicon) Glycopyrrolate 0.2 mg, 1 mL, Inactive Route: IVP2015 [facility] Drug form: INJ, Q5Min, Dosing Weight 94.119, kg, PRN Bradycardia, Start date: 07/01/15 15:39:00 CDT, Duration: 3 doses or times, Stop date: Limited # of timesNotes: (Same as: Faith) Diphenhydramine 12.5 mg, 0.25 Inactive mL, Route: 2015 [facility] IVP, Drug form: INJ, Q6H, Dosing Weight 94.119, kg, PRN Itching, Start date: 07/01/15 15:39:00 CDT, Duration: 30 day, Stop date: 07/31/15 15:38:00 CDTNotes: (Same as: Benadryl) Dexamethasone 4 mg, 1 mL, Inactive Route: IVP2015 [facility] Drug form: INJ, ONCE, Dosing Weight 94.119, kg, PRN Nausea & Vomiting, Start date: 07/01/15 15:39:00 CDTNotes: Concentration: 4mg/ml Ondansetron 4 mg, Route: Inactive IVP, ONCE, 2015 [facility] Dosing Weight 94.119, kg, PRN Nausea & Vomiting, Start date: 07/01/15 15:39:00 CDT Naloxone 0.04 mg, 0.1 Inactive mL, Route: 2015 [facility] IVP, Drug form: INJ, Q2MIN, Dosing Weight 94.119, kg, PRN Narcotic Reversal, Start date: 07/01/15 15:39:00 CDT, Duration: 8 doses or times, Stop date: Limited # of timesNotes: Same as Narcan Metoprolol 1 mg, 1 mL, Inactive Route: IVP2015 [facility] Drug form: INJ, Q5Min, Dosing Weight 94.119, kg, PRN Other -See Comment, Start date: 07/01/15 15:39:00 CDT, Duration: 5 doses or times, Stop date: Limited # of timesNotes: (Same as: Lopressor) Push over 2 minutes Hydralazine 10 mg, 0.5 mL, Inactive Route: IVP2015 [facility] Drug form: INJ, Q20Min, Dosing Weight 94.119, kg, PRN Elevated BP, Start date: 07/01/15 15:39:00 CDT, Duration: 2 doses or times, Stop date: Limited # of timesNotes: (Same as: Apresoline) Push over 5 minutes Meperidine 12.5 mg, 0.25 Inactive mL, Route: 2015 [facility] IVP, Drug form: INJ, Q30Min, Dosing Weight 94.119, kg, PRN Other -See Comment, For shivering, Start date: 07/01/15 15:39:00 CDT, Duration: 2 doses or times, Stop date: Limited # of timesNotes: (Same as: Demerol) "Use Precaution in Elderly, Seizure disorders, and Renal impairment" Morphine 4 mg, 2 mL, Inactive Route: IVP2015 [facility] Drug form: INJ, Q5Min, Dosing Weight 94.119, kg, PRN Pain Score 7-10, Start date: 07/01/15 15:39:00 CDT, Duration: 3 doses or times, Stop date: Limited # of timesNotes: (Same as:MORPhine Sulfate) Hydromorphone 0.5 mg, 0.5 Inactive mL, Route: 2015 [facility] IVP, Drug form: INJ, Q5Min, Dosing Weight 94.119, kg, PRN Pain Score 7-10, Start date: 07/01/15 15:39:00 CDT, Duration: 4 doses or times, Stop date: Limited # of times Fentanyl 50 microgram, Inactive 1 mL, Route: 2015 [facility] IVP, Drug form: INJ, Q5Min, Dosing Weight 94.119, kg, PRN Pain Score 7-10, Start date: 07/01/15 15:39:00 CDT, Duration: 2 doses or times, Stop date: Limited # of timesNotes: (Same as: Sublimaze) Preservative free. Oxycodone 10 mg, 2 tab, Inactive Route: PO, 2015 [facility] Drug form: TAB, Q4H, Dosing Weight 94.119, kg, PRN Pain Score 7-10, Start date: 07/01/15 15:39:00 CDT, Duration: 30 day, Stop date: 07/31/15 15:38:00 CDTNotes: (Same as: Roxicodone) Ketorolac 30 mg, 1 mL, Inactive Route: IVP, 2015 [facility] Drug form: INJ, ONCE, Dosing Weight 94.119, kg, Start date: 07/01/15 15:39:00 CDT, Duration: 1 doses or times, Stop date: 07/01/15 15:39:00 CDTNotes: (Same as:Toradol) IV bolus must be given >15 seconds. Give IM administration slowly and deeply into the muscle. Not for use > 4 days MEDICATION WASTE Product Size: 30 mg Product Wasted: ___ mg Zofran 4 mg, Route: Inactive IVP, ONCE, 2015 [facility] Dosing Weight 94.119, kg, Start date: 07/01/15 12:20:00 CDT, Stop date: 07/01/15 12:20:00 CDT Sodium Chloride 500 mL, Rate: Inactive 0.154 MEQ/ML 25 ml/hr, 2015 [facility] Injectable Infuse over: Solution 20 hr, Route: IV, Dosing Weight 94.119 kg, Total Volume: 500, Start date: 07/01/15 10:21:00 CDT, Duration: 1 day, Stop date: 07/02/15 10:20:00 CDT Calcium Chloride 1,000 mL, Inactive 0.0014 MEQ/ML / Rate: [address] [facility] Potassium Chloride ml/hr, Infuse 0.004 MEQ/ML / over: 40 hr, Sodium Chloride Route: IV, 0.103 MEQ/ML / Dosing Weight Sodium Lactate 94.119 kg, 0.028 MEQ/ML Total Volume: Injectable 1,000, Start Solution date: 07/01/15 10:21:00 CDT, Duration: 30 day, Stop date: 07/31/15 10:20:00 CDT Ancef 2 gm, 100 mL, No Longer Route: IVPB, Active 2015 [facility] Drug form: INJ, PRE OP, Dosing Weight 86.364, kg, Start date: 07/01/15 7:00:00 CDT, Duration: 1 day, Stop date: 07/02/15 6:59:00 CDTNotes: Same as: Ancef Vancomycin 1 gm, Route: No Longer IVPB, PRE OP, Active 2015 [facility] Dosing Weight 86.364, kg, Start date: 07/01/15 7:00:00 CDT, Duration: 1 day, Stop date: 07/02/15 6:59:00 CDTNotes: TIME CRITICAL MEDICATION (Same As: Vancocin) Infusion rate 2001 mg: infuse over 2.5 hours MEDICATION WASTE Product Size: 1000 mg Product Wasted: ___ mg Aspirin 81 MG 81 mg=1 tab, Active Enteric Coated PO, Daily, # 2016 [facility] Tablet 90 tab, 3 Refill(s) NovoLOG 70/30 SUB-Q, ONCE, 0 Active Refill(s) 2015 [facility] Hydralazine 0 Refill(s) Active 2015 [facility] metoprolol BID, 0 Active tartrate Refill(s) 2015 [facility] Ondansetron 8 MG 8 mg=1 tab, Active Oral Tablet PO, BID, [address] [facility] [Zofran] Refill(s) Furosemide 40 MG 40 mg=1 tab, Active Oral Tablet PO, Daily, [address] [facility] Refill(s) Ondansetron 8 MG 8 mg=1 tab, Active Disintegrating PO, TID, PRN 2016 [facility] Tablet [Zofran] Nausea and Vomiting, Dissolve tab under tongue, X 4 day, # 20 tab, 0 Refill(s) Sodium Chloride 1,000 mL, Inactive 0.154 MEQ/ML 1,000 ml/hr, 2016 [facility] Injectable Infuse Over: 1 Solution hr, Route: IV, 1,000, Drug form: INJ, ONCE, Priority: STAT, Dosing Weight 86.364 kg, Start date: 06/17/15 11:40:00, Duration: 1 doses or times, Stop date: 06/17/15 11:40:00 Ondansetron 4 mg, 2 mL, Inactive Route: IVP2015 [facility] Drug form: INJ, ONCE, Dosing Weight 86.364, kg, Priority: STAT, Start date: 06/17/15 11:40:00, Stop date: 06/17/15 11:40:00Notes: (Same as: Veronica) MEDICATION WASTE Product Size: 4 mg Product Wasted: ___ mg Morphine 4 mg, 1 mL, Inactive Route: IVP2015 [facility] Drug form: INJ, ONCE, Dosing Weight 86.364, kg, Priority: STAT, Start date: 06/17/15 11:40:00, Stop date: 06/17/15 11:40:00Notes: (Same as:MORPhine Sulfate) Acetaminophen 300 1 cap, PO, Inactive MG / butalbital 50 Q4H, PRN Pain, 2014 [facility] MG / Caffeine 40 Do not exceed MG Oral Capsule 6 capsules in [Fioricet] 24 hours, # 60 cap, 0 Refill(s)Speci al Instructions: Do not exceed 6 capsules in 24 hours methylPREDNISolone 125 mg, 2 mL, Inactive SODium SUCCinate Route: IVP2014 [facility] Drug form: INJ, ONCE, Dosing Weight 86.364, kg, Priority: STAT, Start date: 08/29/14 15:39:00, Stop date: 08/29/14 15:39:00Notes: (Same as:Solu-MEDROL , A-Methapred) Benadryl 50 mg, 1 mL, Inactive Route: IVP2014 [facility] Drug form: INJ, ONCE, Dosing Weight 86.364, kg, Priority: STAT, Start date: 08/29/14 15:38:00, Stop date: 08/29/14 15:38:00Notes: (Same as: Benadryl) Sodium Chloride 1,000 mL, Inactive 0.154 MEQ/ML 1,000 ml/hr, 2014 [facility] Injectable Infuse Over: 1 Solution hr, Route: IV, 1,000, Drug form: INJ, ONCE, Priority: STAT, Dosing Weight 86.364 kg, Start date: 08/29/14 15:38:00, Duration: 1 doses or times, Stop date: 08/29/14 15:38:00 Reglan 10 mg, 2 mL, Inactive Route: IVP, 2014 [facility] Drug form: INJ, ONCE, Dosing Weight 86.364, kg, Priority: STAT, Start date: 08/29/14 15:38:00, Stop date: 08/29/14 15:38:00Notes: (Same as: Reglan) Allergies, Adverse Reactions, Alerts Substance Category Reaction Severity Reaction Status Date Comments Source type Reported NKDA Assertion Drug Active [facility] allergy [place] Immunizations Immunization Date Given Site Status Last Updated Comments Source Results Order Name Results Value Reference Date Interpretation Comments Source Range Chest 2 Chest 2 REASON FOR EXAM: Cough. 05/18 - [facility] views DX views DX /2016 - [place] COMPARISON: Portable chest x-ray 06/17/2015. Read by: Erick Arellano MD Dictated Date/time: 05/18/16 11:42 Electronically Signed by: Erick Arellano MD 05/18/16 11:51 FINAL REPORT FINDINGS: A two-view chest x-ray was performed. There is blunting of the right costophrenic angle suggesting a small right pleural effusion. There is a small to moderate left pleural effusion. There is subsegmental atelectasis at the lung pleural effusion interface bilaterally. The left pleural effusion obscures the left lower thorax and left diaphragm. There is no demonstrable pneumothorax or vascula r congestion. The cardiac silhouette is partially obscured by the left pleural effusion but likely mildly enlarged. There is no significant osseous abnormality. There are surgical clips in the abdomen. IMPRESSION: 1. Bilateral pleural effusions, left greater than right. 2. Subsegmental atelectasis at the lung pleural effusion interface bilaterally. 3. Enlarged cardiac silhouette. SL: 15 [facility] Chloride Lvl 111 meq/L 95 - 109 06/30 [facility] CO2 19 meq/L 24 - 32 06/30 [facility] Calcium Lvl 8.5 mg/dL 8.5 - 10.5 06/30 [facility] Glucose Lvl 126 mg/dL 70 - 99 06/30 [facility] ELECTROLYT Sodium Lvl 140 meq/L 135 - 145 06/[address] [facility] ELECTROLYT Potassium 4.6 meq/L 3.5 - 5.1 06/30 ES Lvl /2015 [facility] ELECTROLYT BUN 50 mg/dL 7 - 22 06/30 ES /2015 [facility] ELECTROLYT Creatinine 8.31 mg/dL 0.50 - 06/30 ES Lvl 1.40 /2015 [facility] ELECTROLYT eGFR 6 06/30 Result Comment: The eGFR is calculated using the CKD-EPI formula. In most young, healthy individuals the eGFR will be >90 mL/ min/1.73m2. The eGFR declines with age. An eGFR of 60-89 may be normal in ES mL/min/1.7 /2015 some populations, particularly the elderly, for whom the CKD-EPI formula has not been extensively validated. Use of the eGFR is not recommended in the following populations: [facility] 3m2 Individuals with unstable creatinine concentrations, including patients and those with serious co-morbid conditions. Patients with extremes in muscle mass or diet. The data above are obtained from the National Kidney Disease Education Program (NKDEP) which additionally recommends that when the eGFR is used in patients with extremes of body mass index for purposes of drug dosing, the eGFR should be multiplied by the estimated BMI. ELECTROLYT AGAP 14.6 meq/L 10.0 - 06/[address] [facility] HEMATOLOGY Lymphocytes 1.2 K/CMM 1.0 - 5.5 06/30 MH # /2016 [facility] HEMATOLOGY Basophils 1.0 % 0.0 - 1.0 06/30 MH /2015 [facility] HEMATOLOGY Segs-Bands # 4.4 K/CMM 1.5 - 8.1 06/30 /2015 [facility] HEMATOLOGY Monocytes # 0.5 K/CMM 0.0 - 0.8 06/30 MH /2015 [facility] HEMATOLOGY Basophils # 0.1 K/CMM 0.0 - 0.2 06/30 /2015 [facility] HEMATOLOGY Eosinophils 0.1 K/CMM 0.0 - 0.5 /20 MH # /2016 [facility] HEMATOLOGY Monocytes 8.0 % 2.0 - 12.0 06/30 MH /2015 [facility] HEMATOLOGY Lymphocytes 19.2 % 20.0 - 06/30 MH 40.0 /2016 [facility] HEMATOLOGY Segs 69.5 % 45.0 - 06/30 MH 75.0 /2016 [facility] HEMATOLOGY Eosinophils 2.3 % 0.0 - 4.0 / /2015 [facility] HEMATOLOGY PTT 35.1 s 22.9 - 06/30 MH 35.8 /2015 [facility] HEMATOLOGY INR 1.09 0.85 - 06/30 MH 1.17 /2015 [facility] HEMATOLOGY PT 14.4 s 12.0 - 06/30 MH 14.7 /2015 [facility] Hgb 9.3 g/dL 12.0 - 06/30 16.0 /2015 [facility] HEMATOLOGY RBC 3.21 M/CMM 4.20 - 04 MH 5.40 /2015 [facility] HEMATOLOGY WBC 6.3 K/CMM 3.7 - 10.4 06/30 /2015 [facility] HEMATOLOGY MCV 88.4 fL 80.0 - 06/30 98.0 /2015 [facility] Hct 28.4 % 36.0 - 06/30 48.0 /2015 [facility] Platelet 190 K/CMM 133 - 450 06/30 /2015 [facility] RDW 14.9 % 11.5 - 06/30 14.5 /2015 [facility] MCHC 32.7 g/dL 32.0 - 06/30 36.0 /2015 [facility] MCH 28.9 pg 27.0 - 06/30 31.0 /2015 [facility] MPV 8.9 fL 7.4 - 10.4 06/30 [facility] CARDIAC Troponin-I 0.10 ng/mL 0.00 - 06/16 ENZYMES 0.40 [facility] CHEM PANEL Lipase Lvl 314 unit/L 73 - 393 06/16 [facility] CHEM PANEL B/C Ratio 7 6 - 25 06/16 [facility] CHEM PANEL Globulin 5.4 g/dL 2.0 - 4.0 06/16 [facility] CHEM PANEL A/G Ratio 0.3 0.7 - 1.6 06/16 [facility] CHEM PANEL AGAP 12.1 meq/L 10.0 - 06/16 20.0 [facility] CHEM PANEL eGFR 7 06/16 Result Comment: The eGFR is calculated using the CKD-EPI formula. In most young, healthy individuals the eGFR will be >90 mL/ min/1.73m2. The eGFR declines with age. An eGFR of 60-89 may be normal in mL/min/1.7 some populations, particularly the elderly, for whom the CKD-EPI formula has not been extensively validated. Use of the eGFR is not recommended in the following populations: [facility] 3m2 Individuals with unstable creatinine concentrations, including patients and those with serious co-morbid conditions. Patients with extremes in muscle mass or diet. The data above are obtained from the National Kidney Disease Education Program (NKDEP) which additionally recommends that when the eGFR is used in patients with extremes of body mass index for purposes of drug dosing, the eGFR should be multiplied by the estimated BMI. CHEM PANEL AST 45 unit/L 0 - 37 06/16 [facility] CHEM PANEL Albumin Lvl 1.8 g/dL 3.5 - 5.0 06/16 [facility] CHEM PANEL ALT 37 unit/L 0 - 65 06/16 [facility] CHEM PANEL Bili Total 0.3 mg/dL 0.2 - 1.3 06/16 [facility] CHEM PANEL Alk Phos 84 unit/L 39 - 136 06/16 [facility] CHEM PANEL Total 7.2 g/dL 6.4 - 8.4 06/16 [facility] CHEM PANEL Calcium Lvl 8.4 mg/dL 8.5 - 10.5 06/16 [facility] CHEM PANEL Glucose Lvl 106 mg/dL 70 - 99 06/16 [facility] CHEM PANEL Potassium 5.1 meq/L 3.5 - 5.1 06/16 MH Lvl [facility] CHEM PANEL Chloride Lvl 109 meq/L 95 - 109 06/16 [facility] CHEM PANEL CO2 21 meq/L 24 - 32 06/16 [facility] CHEM PANEL Sodium Lvl 137 meq/L 135 - 145 06/16 [facility] CHEM PANEL Creatinine 7.50 mg/dL 0.50 - 04 MH Lvl 1.40 [facility] CHEM PANEL BUN 52 mg/dL 7 - 22 06/16 [facility] HEMATOLOGY Monocytes # 0.4 K/CMM 0.0 - 0.8 06/16 [facility] HEMATOLOGY Basophils # 0.0 K/CMM 0.0 - 0.2 06/16 [facility] HEMATOLOGY Eosinophils 0.1 K/CMM 0.0 - 0.5 / MH # /2015 [facility] HEMATOLOGY Lymphocytes 27.3 % 20.0 - 04/ MH 40.0 /2015 [facility] HEMATOLOGY Segs 65.3 % 45.0 - 04/06 75.0 /2016 [facility] HEMATOLOGY Segs-Bands # 4.4 K/CMM 1.5 - 8.1 04 /2015 [facility] HEMATOLOGY Basophils 0.5 % 0.0 - 1.0 06/16 /2015 [facility] HEMATOLOGY Eosinophils 1.3 % 0.0 - 4.0 04 /2015 [facility] HEMATOLOGY Monocytes 5.6 % 2.0 - 12.0 04 /2015 [facility] HEMATOLOGY Lymphocytes 1.9 K/CMM 1.0 - 5.5 / MH # /2016 [facility] HEMATOLOGY Hct 28.8 % 36.0 - 06/16 48.0 /2015 [facility] HEMATOLOGY Hgb 9.3 g/dL 12.0 - 06/16 16.0 /2015 [facility] HEMATOLOGY RBC 3.24 M/CMM 4.20 - 06/16 5.40 /2015 [facility] HEMATOLOGY MCH 28.8 pg 27.0 - 06/16 31.0 /2015 [facility] HEMATOLOGY MCV 88.8 fL 80.0 - 06/16 98.0 /2015 [facility] HEMATOLOGY Platelet 235 K/CMM 133 - 450 04 [facility] HEMATOLOGY RDW 15.2 % 11.5 - 06/16 14.5 /2015 [facility] HEMATOLOGY MCHC 32.4 g/dL 32.0 - 06/16 36.0 /2015 [facility] HEMATOLOGY MPV 9.3 fL 7.4 - 10.4 06/16 [facility] WBC 6.8 K/CMM 3.7 - 10.4 04 [facility] URINE AND UA Color Yellow Yellow 06/16 STOOL [facility] *NA* (06/17/15 12:02 PM) URINE AND UA Turbidity Clear Clear 06/16 STOOL [facility] (06/17/15 12:02 PM) URINE AND UA Leuk Est Negative Negative 06/16 [facility] /2015 [facility] (06/17/15 12:02 PM) URINE AND UA 0.2 EU/dL 0.1 - 1.0 06/16 [facility] Urobilinogen /2015 [facility] URINE AND UA Blood Moderate Negative 06/16 STOOL [facility] *ABN* (06/17/15 12:02 PM) URINE AND UA Nitrite Negative Negative 06/16 STOOL [facility] (06/17/15 12:02 PM) URINE AND UA Bili Negative Negative 06/16 [facility] *NA* (06/17/15 12:02 PM) URINE AND UA Glucose 250 mg/dL Negative 06/16 [facility] mg/dL [facility] URINE AND UA Protein >=300 Negative 06/16 [facility] mg/dL mg/dL [facility] URINE AND UA Ketones Negative Negative 06/16 [facility] *NA* (06/17/15 12:02 PM) URINE AND UA pH 6.5 5.0 - 8.0 06/16 [facility] URINE AND UA Spec Grav 1.020 <=1.030 06/16 [facility] URINE AND UA Mucus Few /LPF None Seen 06/16 [facility] /LPF [facility] URINE AND UA Sq Epi Few /LPF Few /LPF 06/16 [facility] URINE AND UA RBC 11-20 /HPF 0 - 2 06/16 [facility] URINE AND UA WBC 6-10 /HPF None Seen 06/16 [facility] /HPF [facility] URINE AND UA Bacteria Few /HPF None Seen 06/16 [facility] /HPF [facility] URINE CHEM U Preg Negative Negative 06/16 [facility] (06/17/15 12:02 PM) Chest Chest 1view Study: Chest 1view DX 06/17/2015 11:44 AM CDT 06/16 - 1view DX DX - [facility] Patient Name: ROSA PINO MR: [id number] Read by: Jose Manuel Waters MD Dictated Date/time: 06/17/15 12:53 : 1970; Age: 45 years y/o Female Electronically Signed by: Jose Manuel Waters MD 06/17/15 13:06 FINAL REPORT Ordering Physician: Tara Vaughn Clinical Indication: Dyspnea acute nonspecific chest pain. Comparison: None Lungs: Mildly hypoinflated lungs with underpenetration of the lung bases. Hazy bilateral basilar opacities and perihilar opacities may represent atelectasis and artifact from under penetration versus mi ld edema or pneumonitis. No pleural effusion or pneumothorax.. The trachea is midline. Heart and mediastinum: Heart size at the upper limits of normal accentuated by hypoinflation. Lines: None. Other: None. Osseous structures: No fracture, dislocation, or suspicious focal osseous lesion. IMPRESSION: 1. Hypoinflation with mild underpenetration of the lung bases. Hazy perihilar and lower lobe opacities may represent atelectasis artifact versus mild edema or pneumonitis. A lateral chest radiograph would be helpful. 2. Heart size near upper limits of normal. SL: [id number] CHEM PANEL A/G Ratio 0.4 0.7 - 1.6 08/29 [facility] CHEM PANEL B/C Ratio 18 6 - 25 08/29 [facility] CHEM PANEL Globulin 5.0 g/dL 2.0 - 4.0 08/29 [facility] CHEM PANEL AGAP 11.8 meq/L 10.0 - 08/29 MH 20.0 [facility] CHEM PANEL eGFR 49 08/29 1Result Comment: The eGFR is calculated using the CKD-EPI formula. In most young, healthy individuals the eGFR will be >90 mL/ min/1.73m2. The eGFR declines with age. An eGFR of 60-89 may be normal in mL/min/1. some populations, particularly the elderly, for whom the CKD-EPI formula has not been extensively validated. Use of the eGFR is not recommended in the following populations: [facility] 3m2 Individuals with unstable creatinine concentrations, including patients and those with serious co-morbid conditions. Patients with extremes in muscle mass or diet. The data above are obtained from the National Kidney Disease Education Program (NKDEP) which additionally recommends that when the eGFR is used in patients with extremes of body mass index for purposes of drug dosing, the eGFR should be multiplied by the estimated BMI. CHEM PANEL Glucose Lvl 242 mg/dL 70 - 99 08/29 2Interpretive Data: Adult reference range values reflect the clinical guidelines of the [place] [employer]. [facility] CHEM PANEL BUN 27 mg/dL 7 - 22 08/29 [facility] CHEM PANEL Creatinine 1.5 mg/dL 0.5 - 1.4 08/29 Lvl [facility] CHEM PANEL CO2 22 meq/L 24 - 32 08/29 [facility] CHEM PANEL Calcium Lvl 8.7 mg/dL 8.5 - 10.5 08/29 [facility] CHEM PANEL Potassium 3.8 meq/L 3.5 - 5.1 08/29 MH Lvl [facility] CHEM PANEL Chloride Lvl 110 meq/L 95 - 109 08/29 [facility] CHEM PANEL Sodium Lvl 140 meq/L 135 - 145 08/29 [facility] CHEM PANEL AST 29 unit/L 0 - 37 08/29 [facility] CHEM PANEL Alk Phos 61 unit/L 39 - 136 08/29 [facility] CHEM PANEL Albumin Lvl 1.9 g/dL 3.5 - 5.0 08/29 [facility] CHEM PANEL ALT 39 unit/L 0 - 65 08/29 [facility] CHEM PANEL Total 6.9 g/dL 6.4 - 8.4 08/29 [facility] CHEM PANEL Bili Total 0.3 mg/dL 0.2 - 1.3 08/29 [facility] HEMATOLOGY Monocytes # 0.6 K/CMM 0.0 - 0.8 08/29 [facility] HEMATOLOGY Lymphocytes 1.9 K/CMM 1.0 - 5.5 08/29 # /2014 [facility] HEMATOLOGY Eosinophils 0.0 K/CMM 0.0 - 0.5 08/29 # /2014 [facility] HEMATOLOGY Basophils # 0.0 K/CMM 0.0 - 0.2 08/29 [facility] HEMATOLOGY Eosinophils 0.1 % 0.0 - 4.0 08/29 /2014 [facility] HEMATOLOGY Monocytes 3.8 % 2.0 - 12.0 08/29 /2014 [facility] [place] HEMATOLOGY Basophils 0.2 % 0.0 - 1.0 08/29 [facility] HEMATOLOGY Segs-Bands # 13.9 K/CMM 1.5 - 8.1 08/29 [facility] HEMATOLOGY Segs 84.1 % 45.0 - 08/29 75.0 /2014 [facility] HEMATOLOGY Lymphocytes 11.8 % 20.0 - 08/29 40.0 /2014 [facility] HEMATOLOGY PTT 32.7 s 22.9 - 08/29 4Interpretive 35.8 /2014 Data: Heparin [facility] Therapeutic Range: 57 - 92 [facility] HEMATOLOGY PT 12.4 s 12.0 - 08/29 14.7 /2014 [facility] HEMATOLOGY INR 0.93 0.85 - 08/29 3Interpretive Data: RECOMMENDED RANGES FOR PROTIME INR: 1. 2.0-3.0 for most medical and surgical thromboembolic states. [facility] 2.5-3.5 for artificial heart valves and recurrent embolism. INR SHOULD BE USED ONLY FOR PATIENTS ON STABLE ANTICOAGULANT THERAPY. HEMATOLOGY MPV 9.5 fL 7.4 - 10.4 08/29 /2014 [facility] MCHC 32.4 g/dL 32.0 - 08/29 36.0 /2014 [facility] HEMATOLOGY RDW 14.2 % 11.5 - 08/29 MH 14.5 [facility] Platelet 229 K/CMM 133 - 450 08/29 [facility] MCV 87.9 fL 80.0 - 08/29 98.0 /2014 [facility] WBC 16.5 K/CMM 3.7 - 10.4 08/29 [facility] RBC 4.32 M/CMM 4.20 - 08/29 5.40 /2014 [facility] Hgb 12.3 g/dL 12.0 - 08/29 16.0 [facility] Hct 37.9 % 36.0 - 08/29 MH 48.0 [facility] MCH 28.5 pg 27.0 - 08/29 31.0 [facility] Brain CTA Brain CTA EXAM: BRAIN CTA WITH CONTRAST 08/29 - - [facility] EXAM: BRAIN CT WITHOUT CONTRAST Read by: Arik Mehta MD Dictated Date/time: 08/29/14 18:34 DATE: Aug 29, 2014 06:09:00 PM Electronically Signed by: Arik Mehta MD 08/29/14 18:42 FINAL REPORT INDICATION: Headache Primary [place] COMPARISON: None TECHNIQUE Rapid acquisition spiral images were obtained of the head during intravenous contras. Reconstructed axial images and angiographic 3D maximum intensity projections (MIP). Precontrast images of the brain were also obtained. FINDINGS: NONCONTRAST CT HEAD: Ventricles are normal in size. Cavum septum pellucidum is identified. No midline shift or herniation is seen. No intracranial hemorrhage or extraaxial collection is present. There is no intra-axial mass. The corral-white matter interface is preserved. The paranasal sinuses and mastoid air cells are clear. No skull fracture is demonstrated. CTA BRAIN: The intracranial vessels are diffusely mildly narrow in caliber. The petrous, cavernous and supraclinoid portions of the internal carotid arteries are normal in contour without stenosis. The anterior, p osterior and middle cerebral arteries are patent. . Posterior communicating arteries are not seen.. There is an anterior communicating artery.The basilar artery is intact. The left intracranial vertebra l artery is dominant. The left posterior inferior cerebellar artery is prominent. Left anterior/inferior cerebellar artery is not seen. The major dural venous sinuses are poorly opacified but appear patent. There are no enhancing intracranial lesions Bilateral orbits are symmetric No intracranial collections are seen. IMPRESSION: 1.No major branch occlusion, flow limiting stenosis, vascular malformation or aneurysm. 2. No intracranial hemorrhage seen. No acute intracranial abnormality identified. SL: 12 Vital Signs Vital Sign Value Date Comments Source BMI Calculated 28.95 08/05/2015 [facility] Height 172.72 cm 08/05/2015 [facility] Weight 86.364 08/05/2015 [facility] Temperature Oral (F) 97.7 F 08/05/2015 [facility] Heart Rate 118 08/05/2015 [facility] Respitory Rate 16 08/05/2015 [facility] Systolic (mm Hg) 168 08/05/2015 [facility] Diastolic (mm Hg) 103 08/05/2015 [facility] Respitory Rate 18 07/01/2015 [facility] Systolic (mm Hg) 159 07/01/2015 [facility] Diastolic (mm Hg) 99 07/01/2015 [facility] Respitory Rate 18 07/01/2015 [facility] Systolic (mm Hg) 160 07/01/2015 [facility] Diastolic (mm Hg) 100 07/01/2015 [facility] Systolic (mm Hg) 158 07/01/2015 [facility] Diastolic (mm Hg) 102 07/01/2015 [facility] Respitory Rate 18 07/01/2015 [facility] Temperature Oral (F) 98.2 F 07/01/2015 [facility] Heart Rate 112 07/01/2015 [facility] BMI Calculated 32.5 06/30/2015 [facility] Height 170.18 cm 06/30/2015 [facility] Weight 94.119 06/30/2015 [facility] Heart Rate 89 06/17/2015 [facility] Temperature Oral (F) 98.0 F 06/17/2015 [facility] Respitory Rate 20 06/17/2015 [facility] Systolic (mm Hg) 132 06/17/2015 [facility] Diastolic (mm Hg) 88 06/17/2015 [facility] Weight 86.364 06/17/2015 [facility] Heart Rate 103 06/17/2015 [facility] Respitory Rate 22 06/17/2015 [facility] Systolic (mm Hg) 173 06/17/2015 [facility] Diastolic (mm Hg) 122 06/17/2015 [facility] BMI Calculated 28.95 06/17/2015 [facility] Height 172.72 cm 06/17/2015 [facility] Temperature Oral (F) 98.2 F 06/17/2015 [facility] Systolic (mm Hg) 137 08/29/2014 [facility] Diastolic (mm Hg) 91 08/29/2014 [facility] Temperature Oral (F) 98.3 F 08/29/2014 [facility] Heart Rate 91 08/29/2014 [facility] Respitory Rate 18 08/29/2014 [facility] Respitory Rate 20 08/29/2014 [facility] Heart Rate 89 08/29/2014 [facility] Systolic (mm Hg) 174 08/29/2014 [facility] Diastolic (mm Hg) 102 08/29/2014 [facility] Weight 86.364 08/29/2014 [facility] BMI Calculated 28.95 08/29/2014 [facility] Heart Rate 97 08/29/2014 [facility] Respitory Rate 18 08/29/2014 [facility] Systolic (mm Hg) 163 08/29/2014 [facility] Diastolic (mm Hg) 113 08/29/2014 [facility] Temperature Oral (F) 98.3 F 08/29/2014 [facility] Height 172.72 cm 08/29/2014 [facility] Encounters Location Location Encounter Encounter Reason Attending ADM DC Status Source Details Type Number For Provider Date Date Visit [facility] [place] [id number] Kizzy 08/29 08/30 [facility] Emergency [place] /2014 [facility] [place] [id number] Woody 06/16 06/16 [facility] Emergency Hean /2015 [facility] OBS Day [id number] Alexandre 06/30 06/30 [facility]vin /2015 [facility] [place] [id number] Latia Sarah 08/04 08/04 [facility] /2015 [facility] [id number] Casey 05/18 05/19 [facility] /2016 [facility] Procedures Procedure Code Date Perfomer Comments Source Cholecystectomy [id number] [facility] [place] Cholecystectomy [id number] [facility] 5 Cholecystectomy [id number] [place] 5 Abdominal [id number] [facility] hyste[facility] [place] CS - section [id number] [facility] [place] Abdominal [id number] [facility] hysterectomy CS - section [id number] [facility] Abdominal [id number] [facility] hysterectomy Abdominal [id number] [facility] hysterectomy CS - section [id number] [facility]
--- OUTSIDE RECORDS SUMMARY | 2017-11-14 10:31 | XMS REPORT | Summary of Care ---
:1970 Author Organization [facility] Address [address] [place], [place] [address]- Encounter HQ Sheri(FIN) [id number] Date(s): 07/01/15 - 07/01/15 [facility] [address] [place] [address]- Discharge Disposition: Home Attending Physician: Alexandre Warren MD Referring Physician: Alexandre Warren MD Vital Signs Most recent to oldest 1 2 3 [Reference Range]: Height 170.18 cm (06/30/15 1:01 PM) Temperature Oral [96.4-99.1 98.2 DegF DegF] (07/01/15 7:08 AM) Blood Pressure [90-140/60-90 159/99 mmHg 160/100 mmHg 158/102 mmHg mmHg] *HI* *HI* *HI* (07/01/15 6:00 PM) (07/01/15 5:45 PM) (07/01/15 5:15 PM) Respiratory Rate [14-20 BRMIN] 18 BRMIN 18 BRMIN 18 BRMIN (07/01/15 6:00 PM) (07/01/15 5:45 PM) (07/01/15 5:15 PM) Peripheral Pulse Rate [60-100 112 bpm bpm] *HI* (07/01/15 7:08 AM) Weight 94.119 kg (06/30/15 1:01 PM) Body Mass Index 32.5 m2 (06/30/15 1:01 PM) Problem List Condition Effective Dates Status Health Status Informant Diabetes(Confirmed) Resolved ESRD (end stage renal Active disease)(Confirmed) H/O: migraine(Confirmed) Resolved Heartburn(Confirmed) Resolved High blood pressure(Confirmed) Resolved SOB (shortness of breath)(Confirmed) Resolved Allergies, Adverse Reactions, Alerts Substance Reaction Severity Status NKDA Active Medications Ancef 2 gm, 100 mL, Route: IVPB, Drug form: INJ, PRE OP, Dosing Weight 86.364, kg, Start date: 07/01/15 7:00:00 CDT, Duration: 1 day, Stop date: 07/02/15 6:59:00 CDT Notes: Same as: Ancef Start Date: 07/01/15 Stop Date: 07/02/15 Status: Discontinuedaspirin 81 mg tablet, enteric coated 81 mg=1 tab, PO, Daily, # 90 tab, 3 Refill(s) Start Date: 06/30/15 Status: Ordereddexamethasone 4 mg, 1 mL, Route: IVP, Drug form: INJ, ONCE, Dosing Weight 94.119, kg, PRN Nausea & Vomiting, Start date: 07/01/15 15:39:00 CDT Notes: Concentration: 4mg/ml Start Date: 07/01/15 Stop Date: 07/01/15 Status: DiscontinueddiphenhydrAMINE 12.5 mg, 0.25 mL, Route: IVP, Drug form: INJ, Q6H, Dosing Weight 94.119, kg, PRN Itching, Start date: 07/01/15 15:39:00 CDT, Duration: 30 day, Stop date: 15:38:00 CDT Notes: (Same as: Benadryl) Start Date: 07/01/15 Stop Date: 07/01/15 Status: DiscontinuedfentaNYL 50 microgram, 1 mL, Route: IVP, Drug form: INJ, Q5Min, Dosing Weight 94.119, kg , PRN Pain Score 7-10, Start date: 07/01/15 15:39:00 CDT, Duration: 2 doses or times, Stop date: Limited # of times Notes: (Same as: Sublimaze) Preservative free. Start Date: 07/01/15 Stop Date: 07/01/15 Status: DiscontinuedfentaNYL 25 microgram, 0.5 mL, Route: IVP, Drug form: INJ, Q5Min, Dosing Weight 94.119, kg, PRN Pain Score 4-6, Start date: 07/01/15 15:39:00 CDT, Duration: 4 doses or times, Stop date: Limited # of times Notes: (Same as: Sublimaze) Preservative free. Start Date: 07/01/15 Stop Date: 07/01/15 Status: Discontinuedflumazenil 0.2 mg, 2 mL, Route: IVP, Drug form: INJ, PRN, Dosing Weight 94.119, kg, PRN Benzodiazepine Reversal, Initial dose, Start date: 07/01/15 15:39:00 CDT, Duration: 30 day, Stop date: 07/31/15 15:38:00 CDT Notes: (Same as: Romazicon) Start Date: 07/01/15 Stop Date: 07/01/15 Status: Discontinuedfurosemide 40 mg oral tablet 40 mg=1 tab, PO, Daily, 0 Refill(s) Start Date: 06/30/15 Status: Orderedglycopyrrolate 0.2 mg, 1 mL, Route: IVP, Drug form: INJ, Q5Min, Dosing Weight 94.119, kg, PRN Bradycardia, Start date: 07/01/15 15:39:00 CDT, Duration: 3 doses or times, Stop date: Limited # of times Notes: (Same as: Faith) Start Date: 07/01/15 Stop Date: 07/01/15 Status: DiscontinuedhydrALAZINE 0 Refill(s) Start Date: 06/30/15 Status: OrderedhydrALAZINE 10 mg, 0.5 mL, Route: IVP, Drug form: INJ, Q20Min, Dosing Weight 94.119, kg, PRN Elevated BP, Start date: 07/01/15 15:39:00 CDT, Duration: 2 doses or times, Stop date: Limited # of times Notes: (Same as: Apresoline)Push over 5 minutes Start Date: 07/01/15 Stop Date: 07/01/15 Status: Discontinuedhydromorphone 0.3 mg, 0.3 mL, Route: IVP, Drug form: INJ, Q3H, Dosing Weight 86.364, kg, PRN Pain Score 4-6, Startdate: 07/01/15 15:49:00 CDT, Duration: 30 day, Stop date: 07/31/15 15:48:00 CDT Start Date: 07/01/15 Stop Date: 07/02/15 Status: Discontinuedhydromorphone 0.5 mg, 0.5 mL, Route: IVP, Drug form: INJ, Q5Min, Dosing Weight 94.119, kg, PRN Pain Score 7-10, Start date: 07/01/15 15:39:00 CDT, Duration: 4 doses or times, Stop date: Limited # of times Start Date: 07/01/15 Stop Date: 07/01/15 Status: DiscontinuedketOROLAC 30 mg, 1 mL, Route: IVP, Drug form: INJ, ONCE, Dosing Weight 94.119, kg, Start date: 07/01/15 15:39:00 CDT, Duration: 1 doses or times, Stop date: 07/01/15 15: 39:00 CDT Notes: (Same as:Toradol) IV bolus must be given >15 seconds. Give IM administration slowly and deeply into the muscle.Not for use > 4 days MEDICATION WASTE Product Size: 30 mgProduct Wasted: ___ mg Start Date: 07/01/15 Stop Date: 07/01/15 Status: DiscontinuedLactated Ringers Injection IV 1000 mL 1,000 mL, Rate: 25 ml/hr, Infuse over: 40 hr, Route: IV, Dosing Weight 94.119 kg , Total Volume: 1,000, Start date: 07/01/15 10:21:00 CDT, Duration: 30 day, Stop date: 07/31/15 10:20:00 CDT Start Date: 07/01/15 Stop Date: 07/01/15 Status: Discontinuedmeperidine 12.5 mg, 0.25 mL, Route: IVP, Drug form: INJ, Q30Min, Dosing Weight 94.119, kg, PRN Other -See Comment, For shivering, Start date: 07/01/15 15:39:00 CDT, Duration: 2 doses or times, Stop date: Limited # of times Notes: (Same as: Demerol) "Use Precaution in Elderly, Seizure disorders, and Renal impairment" Start Date: 07/01/15 Stop Date: 07/01/15 Status: Discontinuedmetoprolol 1 mg, 1 mL, Route: IVP, Drug form: INJ, Q5Min, Dosing Weight 94.119, kg, PRN Other -See Comment, Start date: 07/01/15 15:39:00 CDT, Duration: 5 doses or times, Stop date: Limited # of times Notes: (Same as: Lopressor)Push over 2 minutes Start Date: 07/01/15 Stop Date: 07/01/15 Status: Discontinuedmetoprolol tartrate BID, 0 Refill(s) Start Date: 06/30/15 Status: Orderedmorphine Sulfate 4 mg, 2 mL, Route: IVP, Drug form: INJ, Q5Min, Dosing Weight 94.119, kg, PRN Pain Score 7-10, Start date: 07/01/15 15:39:00 CDT, Duration: 3 doses or times, Stop date: Limited # of times Notes: (Same as:MORPhine Sulfate) Start Date: 07/01/15 Stop Date: 07/01/15 Status: Discontinuedmorphine Sulfate 2 mg, 1 mL, Route: IVP, Drug form: INJ, Q5Min, Dosing Weight 94.119, kg, PRN Pain Score 4-6, Start date: 07/01/15 15:39:00 CDT, Duration: 5 doses or times, Stop date: Limited # of times Notes: (Same as:MORPhine Sulfate) Start Date: 07/01/15 Stop Date: 07/01/15 Status: Discontinuednaloxone 0.04 mg, 0.1 mL, Route: IVP, Drug form: INJ, Q2MIN, Dosing Weight 94.119, kg, PRN Narcotic Reversal,Start date: 07/01/15 15:39:00 CDT, Duration: 8 doses or times, Stop date: Limited # of times Notes: Same as Narcan Start Date: 07/01/15 Stop Date: 07/01/15 Status: DiscontinuedNovoLOG 70/30 SUB-Q, ONCE, 0 Refill(s) Start Date: 06/30/15 Status: Orderedondansetron 4 mg, Route: IVP, ONCE, Dosing Weight 94.119, kg, PRN Nausea & Vomiting, Start date: 07/01/15 15:39:00 CDT Start Date: 07/01/15 Stop Date: 07/01/15 Status: CompletedoxyCODONE 10 mg, 2 tab, Route: PO, Drug form: TAB, Q4H, Dosing Weight 94.119, kg, PRN Pain Score 7-10, Start date: 07/01/15 15:39:00 CDT, Duration: 30 day, Stop date : 07/31/15 15:38:00 CDT Notes: (Same as: Roxicodone) Start Date: 07/01/15 Stop Date: 07/01/15 Status: DiscontinuedoxyCODONE 5 mg, 1 tab, Route: PO, Drug form: TAB, Q4H, Dosing Weight 94.119, kg, PRN Pain Score 4-6, Start date: 07/01/15 15:39:00 CDT, Duration: 30 day, Stop date: 07/30 15:38:00 CDT Notes: (Same as: Roxicodone) Start Date: 07/01/15 Stop Date: 07/01/15 Status: Discontinuedpromethazine 6.25 mg, Route: IVPB, ONCE, Dosing Weight 94.119, kg, PRN Nausea & Vomiting , Start date: 07/01/15 15:39:00 CDT Start Date: 07/01/15 Stop Date: 07/01/15 Status: CompletedSodium Chloride 0.9% IV 500 mL 500 mL, Rate: 25 ml/hr, Infuse over: 20 hr, Route: IV, Dosing Weight 94.119 kg, Total Volume: 500, Start date: 07/01/15 10:21:00 CDT, Duration: 1 day, Stop date : 07/02/15 10:20:00 CDT Start Date: 07/01/15 Stop Date: 07/01/15 Status: Discontinuedvancomycin + Sodium Chloride 0.9% IV 250 mL 1 gm, Route: IVPB, PRE OP, Dosing Weight 86.364, kg, Start date: 07/01/15 7:00: 00 CDT, Duration: 1 day, Stop date: 07/02/15 6:59:00 CDT Notes: TIME CRITICAL MEDICATION(Same As: Vancocin)Infusion rate< 1000 mg: infuse over 1 [id number] - 1500 mg: infuse over 1.5 [id number] - 2000 mg: infuse over 2 hours> 2001 mg: infuse over 2.5 hours MEDICATION WASTE Product Size: 1000 mgProduct Wasted: ___ mg Start Date: 07/01/15 Stop Date: 07/02/15 Status: DiscontinuedZofran 4 mg, Route: IVP, ONCE, Dosing Weight 94.119, kg, Start date: 07/01/15 12:20:00 CDT, Stop date: 07/01/15 12:20:00 CDT Start Date: 07/01/15 Stop Date: 07/01/15 Status: CompletedZofran 8 mg oral tablet 8 mg=1 tab, PO, BID, 0 Refill(s) Start Date: 06/30/15 Status: Ordered Results ELECTROLYTES Most recent to oldest [Reference Range]: 1 Sodium Lvl [135-145 mEq/L] 140 mEq/L (07/01/15 6:36 AM) Potassium Lvl [3.5-5.1 mEq/L] 4.6 mEq/L (07/01/15 6:36 AM) Chloride Lvl [95-109 mEq/L] 111 mEq/L *HI* (07/01/15 6:36 AM) CO2 [24-32 mEq/L] 19 mEq/L *LOW* (07/01/15 6:36 AM) AGAP [10.0-20.0 mEq/L] 14.6 mEq/L (07/01/15 6:36 AM) CHEM PANEL Most recent to oldest [Reference Range]: 1 Creatinine Lvl [0.50-1.40 mg/dL] 8.31 mg/dL *HI* (07/01/15 6:36 AM) eGFR 6 mL/min/1.73m2 1 *NA* (07/01/15 6:36 AM) BUN [7-22 mg/dL] 50 mg/dL *HI* (07/01/15 6:36 AM) Glucose Lvl [70-99 mg/dL] 126 mg/dL *HI* (07/01/15 6:36 AM) Calcium Lvl [8.5-10.5 mg/dL] 8.5 mg/dL (07/01/15 6:36 AM) 1Result Comment: The eGFR is calculated using the CKD-EPI formula. In most young , healthy individualsthe eGFR will be >90 mL/min/1.73m2. The eGFR declines with age. An eGFR of 60-89 may be normal in some populations, particularly the elderly, for whom the CKD-EPI formula has not been extensively validated. Use of the eGFR is not recommended in the following populations: Individuals with unstable creatinine concentrations, including patients and those with serious co-morbid conditions. Patients with extremes in muscle mass or diet. The data above are obtained from the National Kidney Disease Education Program ( NKDEP) which additionally recommends that when the eGFR is used in patients with extremes of body mass index for purposesof drug dosing, the eGFR should be multiplied by the estimated BMI.HEMATOLOGY Most recent to oldest [Reference Range]: 1 WBC [3.7-10.4 K/CMM] 6.3 K/CMM (07/01/15 6:36 AM) RBC [4.20-5.40 M/CMM] 3.21 M/CMM *LOW* (07/01/15:36 AM) Hgb [12.0-16.0 g/dL] 9.3 g/dL *LOW* (07/01/15 6:36 AM) Hct [36.0-48.0 %] 28.4 % *LOW* (07/01/15 6:36 AM) MCV [80.0-98.0 fL] 88.4 fL (07/01/15 6:36 AM) MCH [27.0-31.0 pg] 28.9 pg (07/01/15 6:36 AM) MCHC [32.0-36.0 g/dL] 32.7 g/dL (07/01/15 6:36 AM) RDW [11.5-14.5 %] 14.9 % *HI* (07/01/15:36 AM) Platelet [133-450 K/CMM] 190 K/CMM (07/01/15 6:36 AM) MPV [7.4-10.4 fL] 8.9 fL (07/01/15 6:36 AM) Segs [45.0-75.0 %] 69.5 % (07/01/15 6:36 AM) Lymphocytes [20.0-40.0 %] 19.2 % *LOW* (07/01/15 6:36 AM) Monocytes [2.0-12.0 %] 8.0 % (07/01/15 6:36 AM) Eosinophils [0.0-4.0 %] 2.3 % (07/01/15 6:36 AM) Basophils [0.0-1.0 %] 1.0 % (07/01/15 6:36 AM) Segs-Bands # [1.5-8.1 K/CMM] 4.4 K/CMM (07/01/15 6:36 AM) Lymphocytes # [1.0-5.5 K/CMM] 1.2 K/CMM (07/01/15 6:36 AM) Monocytes # [0.0-0.8 K/CMM] 0.5 K/CMM (07/01/15 6:36 AM) Eosinophils # [0.0-0.5 K/CMM] 0.1 K/CMM (07/01/15 6:36 AM) Basophils # [0.0-0.2 K/CMM] 0.1 K/CMM (07/01/15 6:36 AM) PT [12.0-14.7 seconds] 14.4 seconds (07/01/15 6:36 AM) INR [0.85-1.17] 1.09 (07/01/15 6:36 AM) PTT [22.9-35.8 seconds] 35.1 seconds (07/01/15 6:36 AM) Immunizations No data available for this section Procedures Procedure Date Related Diagnosis Body Site Cholecystectomy 2014 Abdominal hysterectomy CS - section Social History Social History Type Response Substance Abuse Use: None. Alcohol Never Smoking Status Never smoker; Previous treatment: None; Ready to change: No; Concerns about tobacco use in household: No; Exposure to Tobacco Smoke None; Cigarette Smoking Last 365 Days No; Reg Smoking Cessation Counseling No Assessment and Plan No data available for this section
--- OUTSIDE RECORDS SUMMARY | 2017-11-14 10:31 | XMS REPORT | Summary of Care ---
:1970 Author Organization [facility] Address [address] [place] [address]- Encounter HQ Sheri(FIN) [id number] Date(s): 08/05/15 - 08/05/[address] [address]- [facility] [phone] Discharge Disposition: Non-Emergent Attending Physician: Latia Smith MD Vital Signs Most recent to oldest [Reference Range]: 1 Height 172.72 cm (08/05/15 5:10 PM) Temperature Oral [96.4-99.1 DegF] 97.7 DegF (08/05/15 5:10 PM) Blood Pressure [90-140/60-90 mmHg] 168/103 mmHg *HI* (08/05/15 5:10 PM) Respiratory Rate [14-20 BRMIN] 16 BRMIN (08/05/15 5:10 PM) Peripheral Pulse Rate [60-100 bpm] 118 bpm *HI* (08/05/15 5:10 PM) Weight 86.364 kg (08/05/15 5:10 PM) Body Mass Index 28.95 m2 (08/05/15 5:10 PM) Problem List Condition Effective Dates Status Health Status Informant Diabetes(Confirmed) Resolved ESRD (end stage renal Active disease)(Confirmed) H/O: migraine(Confirmed) Resolved Heartburn(Confirmed) Resolved High blood pressure(Confirmed) Resolved SOB (shortness of breath)(Confirmed) Resolved Allergies, Adverse Reactions, Alerts Substance Reaction Severity Status NKDA Active Medications No data available for this section Results No data available for this section Immunizations No data available for this section [...]
--- OUTSIDE RECORDS SUMMARY | 2017-11-14 10:31 | XMS REPORT | Summary of Care ---
:1970 Author Organization [facility] [place] Address [address] [place], [place] [address]- Encounter HQ Encntr_alias(FIN) [id number] Date(s): 05/18/16 - 05/18/16 [facility] [address], [address] [place] [phone] Discharge Disposition: Home or Self Care Attending Physician: Casey Davis MD Vital Signs No data available for this section Problem List Condition Effective Dates Status Health [...]
--- OUTSIDE RECORDS SUMMARY | 2017-11-14 10:31 | XMS REPORT | Summary of Care ---
:1970 Author Organization [facility] Address [address], [place] [address]- Encounter HQ Sheri(FIN) [id number] Date(s): 06/17/15 - 06/17/[address] [address]- Discharge Diagnosis: N&V (nausea and vomiting) Discharge Disposition: Home Attending Physician: Woody Ku MD Vital Signs Most recent to oldest [Reference Range]: 1 2 Height 172.72 cm (06/17/15 11:43 AM) Temperature Oral [96.4-99.1 DegF] 98.0 DegF 98.2 DegF (06/17/15 1:10 PM) (06/17/15 11:43 AM) Blood Pressure [90-140/60-90 mmHg] 132/88 mmHg 173/122 mmHg (06/17/15 1:10 PM) *HI* (06/17/15 11:43 AM) Respiratory Rate [14-20 BRMIN] 20 BRMIN 22 BRMIN (06/17/15 1:10 PM) *HI* (06/17/15 11:43 AM) Peripheral Pulse Rate [60-100 bpm] 89 bpm 103 bpm (06/17/15 1:10 PM) *HI* (06/17/15 11:43 AM) Weight 86.364 kg (06/17/15 11:43 AM) Body Mass Index 28.95 m2 (06/17/15 11:43 AM) Problem List Condition Effective Dates Status Health Status Informant Diabetes(Confirmed) Resolved H/O: migraine(Confirmed) Resolved High blood pressure(Confirmed) Resolved Allergies, Adverse Reactions, Alerts Substance Reaction Severity Status NKDA Active Medications morphine Sulfate 4 mg, 1 mL, Route: IVP, Drug form: INJ, ONCE, Dosing Weight 86.364, kg, Priority : STAT, Start date: 06/17/15 11:40:00, Stop date: 06/17/15 11:40:00 Notes: (Same as:MORPhine Sulfate) Start Date: 06/17/15 Stop Date: 06/17/15 Status: Completedondansetron 4 mg, 2 mL, Route: IVP, Drug form: INJ, ONCE, Dosing Weight 86.364, kg, Priority : STAT, Start date: 06/17/15 11:40:00, Stop date: 06/17/15 11:40:00 Notes: (Same as: Zofran) MEDICATION WASTE Product Size: 4 mgProduct Wasted: ___ mg Start Date: 06/17/15 Stop Date: 06/17/15 Status: CompletedSodium Chloride 0.9% (Bolus) IV 1,000 mL, 1,000 ml/hr, Infuse Over: 1 hr, Route: IV, 1,000, Drug form: INJ, ONCE , Priority: STAT, Dosing Weight 86.364 kg, Start date: 06/17/15 11:40:00, Duration: 1 doses or times, Stop date: 06/16/1610:40:00 Start Date: 06/17/15 Stop Date: 06/17/15 Status: DiscontinuedZofran ODT 8 mg oral tablet, disintegrating 8 mg=1 tab, PO, TID, PRN Nausea and Vomiting, Dissolve tab under tongue, X 4 day , # 20 tab, 0 Refill(s) Start Date: 06/17/15 Stop Date: 06/21/15 Status: Ordered Results ELECTROLYTES Most recent to oldest [Reference Range]: 1 Sodium Lvl [135-145 mEq/L] 137 mEq/L (06/17/15 12:02 PM) Potassium Lvl [3.5-5.1 mEq/L] 5.1 mEq/L (06/17/15 12:02 PM) Chloride Lvl [95-109 mEq/L] 109 mEq/L (06/17/15 12:02 PM) CO2 [24-32 mEq/L] 21 mEq/L *LOW* (06/17/15 12:02 PM) AGAP [10.0-20.0 mEq/L] 12.1 mEq/L (06/17/15 12:02 PM) CHEM PANEL Most recent to oldest [Reference Range]: 1 Creatinine Lvl [0.50-1.40 mg/dL] 7.50 mg/dL *HI* (06/17/15 12:02 PM) eGFR 7 mL/min/1.73m2 1 *NA* (06/17/15: PM) BUN [7-22 mg/dL] 52 mg/dL *HI* (06/17/15 12: PM) B/C Ratio [6-25] 7 (06/17/15 12:02 PM) Glucose Lvl [70-99 mg/dL] 106 mg/dL *HI* (06/17/15: PM) Total Protein [6.4-8.4 g/dL] 7.2 g/dL (06/17/15: PM) Albumin Lvl [3.5-5.0 g/dL] 1.8 g/dL *LOW* (06/17/15: PM) Globulin [2.0-4.0 g/dL] 5.4 g/dL *HI* (06/17/15 12:02 PM) A/G Ratio [0.7-1.6] 0.3 *LOW* (06/17/15 12: PM) Calcium Lvl [8.5-10.5 mg/dL] 8.4 mg/dL *LOW* (06/17/15 12:02 PM) ALT [0-65 unit/L] 37 unit/L (06/17/15 12:02 PM) AST [0-37 unit/L] 45 unit/L *HI* (06/17/15 12:02 PM) Alk Phos [39-136 unit/L] 84 unit/L (06/17/15 12:02 PM) Bili Total [0.2-1.3 mg/dL] 0.3 mg/dL (06/17/15 12:02 PM) Lipase Lvl [73-393 unit/L] 314 unit/L (06/17/15 12:02 PM) 1Result Comment: The eGFR is calculated using [...] eGFR should be multiplied by the estimated BMI.CARDIAC ENZYMES Most recent to oldest [Reference Range]: 1 Troponin-I [0.00-0.40 ng/mL] 0.10 ng/mL (06/17/15 12:02 PM) URINE CHEM Most recent to oldest [Reference Range]: 1 U Preg [Negative] Negative (06/17/15 12:02 PM) URINE AND STOOL Most recent to oldest [Reference Range]: 1 UA Turbidity [Clear] Clear (06/17/15 12:02 PM) UA Color [Yellow] Yellow *NA* (06/17/15 12:02 PM) UA pH [5.0-8.0] 6.5 (06/17/15 12:02 PM) UA Spec Grav [<=1.030] 1.020 (06/17/15 12:02 PM) UA Glucose [Negative mg/dL] 250 mg/dL *ABN* (06/17/15 12:02 PM) UA Blood [Negative] Moderate *ABN* (06/17/15 12:02 PM) UA Ketones [Negative] Negative *NA* (06/17/15 12: PM) UA Protein [Negative mg/dL] >=300 mg/dL *ABN* (06/17/15 12:02 PM) UA Urobilinogen [0.1-1.0 EU/dL] 0.2 EU/dL (06/17/15 12:02 PM) UA Bili [Negative] Negative *NA* (06/17/15 12:02 PM) UA Leuk Est [Negative] Negative (06/17/15 12:02 PM) UA Nitrite [Negative] Negative (06/17/15 12:02 PM) UA WBC [None Seen /HPF] 6-10 /HPF *ABN* (06/17/15 12:02 PM) UA RBC [0-2 /HPF] 11-20 /HPF *ABN* (06/17/15 12:02 PM) UA Bacteria [None Seen /HPF] Few /HPF (06/17/15 12:02 PM) UA Sq Epi [Few /LPF] Few /LPF (06/17/15 12:02 PM) UA Mucus [None Seen /LPF] Few /LPF (06/17/15 12:02 PM) HEMATOLOGY Most recent to oldest [Reference Range]: 1 WBC [3.7-10.4 K/CMM] 6.8 K/CMM (06/17/15 12:02 PM) RBC [4.20-5.40 M/CMM] 3.24 M/CMM *LOW* (06/17/15 12:02 PM) Hgb [12.0-16.0 g/dL] 9.3 g/dL *LOW* (06/17/15 12:02 PM) Hct [36.0-48.0 %] 28.8 % *LOW* (06/17/15 12:02 PM) MCV [80.0-98.0 fL] 88.8 fL (06/17/15 12:02 PM) MCH [27.0-31.0 pg] 28.8 pg (06/17/15 12:02 PM) MCHC [32.0-36.0 g/dL] 32.4 g/dL (06/17/15 12:02 PM) RDW [11.5-14.5 %] 15.2 % *HI* (06/17/15 12: PM) Platelet [133-450 K/CMM] 235 K/CMM (06/17/15 12:02 PM) MPV [7.4-10.4 fL] 9.3 fL (06/17/15 12:02 PM) Segs [45.0-75.0 %] 65.3 % (06/17/15 12:02 PM) Lymphocytes [20.0-40.0 %] 27.3 % (06/17/15 12:02 PM) Monocytes [2.0-12.0 %] 5.6 % (06/17/15 12:02 PM) Eosinophils [0.0-4.0 %] 1.3 % (4/6/16 12:02 PM) Basophils [0.0-1.0 %] 0.5 % (06/17/15 12:02 PM) Segs-Bands # [1.5-8.1 K/CMM] 4.4 K/CMM (06/17/15 12:02 PM) Lymphocytes # [1.0-5.5 K/CMM] 1.9 K/CMM (06/17/15 12:02 PM) Monocytes # [0.0-0.8 K/CMM] 0.4 K/CMM (06/17/15 12:02 PM) Eosinophils # [0.0-0.5 K/CMM] 0.1 K/CMM (06/17/15 12:02 PM) Basophils # [0.0-0.2 K/CMM] 0.0 K/CMM (06/17/15 12:02 PM) Immunizations No data available for this section Procedures Procedure Date Related Diagnosis Body Site Abdominal hysterectomy Social History Social History Type Response Substance Abuse Use: None. Alcohol Never Smoking Status Never smoker; Previous treatment: None; Ready to change: No; Concerns about tobacco use in household: No; Exposure to Tobacco Smoke None; Cigarette Smoking Last 365 Days No; Reg Smoking Cessation Counseling No Assessment and Plan No data available for this section
--- OUTSIDE RECORDS SUMMARY | 2017-11-14 10:31 | XMS REPORT | Summary of Care ---
:1970 Author Encounter MARIELLA Wade(SIRIA) [id number] Date(s): 08/29/14 - 08/29/[address] [facility] [address] [place] [address]- Discharge Diagnosis: Acute headache Discharge Disposition: Home Physician Attending: Kizzy Pulliam MD Vital Signs Most recent to oldest 1 2 3 [Reference Range]: Height 172.72 cm (08/29/14 3:01 PM) Temperature Oral [96.4-99.1 98.3 DegF 98.3 DegF DegF] (08/29/14 6:51 PM) (08/29/14 3:01 PM) Blood Pressure [90-140/60-90 137/91 mmHg 174/102 mmHg 163/113 mmHg mmHg] (08/29/14 6:51 PM) *HI* *HI* (08/29/14 5:20 PM) (08/29/14 3:01 PM) Respiratory Rate [14-20 BRMIN] 18 BRMIN 20 BRMIN 18 BRMIN (08/29/14 6:51 PM) (08/29/14 5:20 PM) (08/29/14 3:01 PM) Peripheral Pulse Rate [60-100 91 bpm 89 bpm 97 bpm bpm] (08/29/14 6:51 PM) (08/29/14 5:20 PM) (08/29/14 3:01 PM) Weight 86.364 kg (08/29/14 3:01 PM) Body Mass Index 28.95 m2 (08/29/14 3:01 PM) Problem List Condition Effective Dates Status Health Status Informant Diabetes(Confirmed) Resolved H/O: migraine(Confirmed) Resolved High blood pressure(Confirmed) Resolved Allergies, Adverse Reactions, Alerts Substance Reaction Severity Status NKDA Active Medications Benadryl 50 mg, 1 mL, Route: IVP, Drug form: INJ, ONCE, Dosing Weight 86.364, kg, Priority: STAT, Start date:08/29/14 15:38:00, Stop date: 08/29/14 15:38:00 Notes: (Same as: Benadryl) Start Date: 08/29/14 Stop Date: 08/29/14 Status: CompletedFioricet 300 mg-50 mg-40 mg oral capsule 1 cap, PO, Q4H, PRN Pain, Do not exceed 6 capsules in 24 hours, # 60 cap, 0 Refill(s) Special Instructions: Do not exceed 6 capsules in 24 hours Start Date: 08/29/14 Stop Date: 08/29/14 Status: CompletedmethylPREDNISolone SODium SUCCinate 125 mg, 2 mL, Route: IVP, Drug form: INJ, ONCE, Dosing Weight 86.364, kg, Priority: STAT, Start date: 08/29/14 15:39:00, Stop date: 08/29/14 15:39:00 Notes: (Same as:Solu-MEDROL, A-Methapred) Start Date: 08/29/14 Stop Date: 08/29/14 Status: CompletedReglan 10 mg, 2 mL, Route: IVP, Drug form: INJ, ONCE, Dosing Weight 86.364, kg, Priority: STAT, Start date:08/29/14 15:38:00, Stop date: 08/29/14 15:38:00 Notes: (Same as: Reglan) Start Date: 08/29/14 Stop Date: 08/29/14 Status: CompletedSodium Chloride 0.9% (Bolus) IV 1,000 mL, 1,000 ml/hr, Infuse Over: 1 hr, Route: IV, 1,000, Drug form: INJ, ONCE , Priority: STAT, Dosing Weight 86.364 kg, Start date: 08/29/14 15:38:00, Duration: 1 doses or times, Stop date: 08/29/1514:38:00 Start Date: 08/29/14 Stop Date: 08/29/14 Status: Completed Results ELECTROLYTES Most recent to oldest [Reference Range]: 1 Sodium Lvl [135-145 mEq/L] 140 mEq/L (08/29/14 4:21 PM) Potassium Lvl [3.5-5.1 mEq/L] 3.8 mEq/L (08/29/14 4:21 PM) Chloride Lvl [95-109 mEq/L] 110 mEq/L *HI* (08/29/14 4:21 PM) CO2 [24-32 mEq/L] 22 mEq/L *LOW* (08/29/14 4:21 PM) AGAP [10.0-20.0 mEq/L] 11.8 mEq/L (08/29/14 4:21 PM) CHEM PANEL Most recent to oldest [Reference Range]: 1 Creatinine Lvl [0.5-1.4 mg/dL] 1.5 mg/dL *HI* (08/29/14 4:21 PM) eGFR 49 mL/min/1.73m2 1 *NA* (08/29/14 4: PM) BUN [7-22 mg/dL] 27 mg/dL *HI* (08/29/14 4:21 PM) B/C Ratio [6-25] 18 (08/29/14 4:21 PM) Glucose Lvl [70-99 mg/dL] 242 mg/dL 2 *HI* (08/29/14 4:21 PM) Total Protein [6.4-8.4 g/dL] 6.9 g/dL (08/29/14 4:21 PM) Albumin Lvl [3.5-5.0 g/dL] 1.9 g/dL *LOW* (08/29/14 4:21 PM) Globulin [2.0-4.0 g/dL] 5.0 g/dL *HI* (08/29/14 4:21 PM) A/G Ratio [0.7-1.6] 0.4 *LOW* (08/29/14 4:21 PM) Calcium Lvl [8.5-10.5 mg/dL] 8.7 mg/dL (08/29/14 4:21 PM) ALT [0-65 unit/L] 39 unit/L (08/29/14 4:21 PM) AST [0-37 unit/L] 29 unit/L (08/29/14 4:21 PM) Alk Phos [39-136 unit/L] 61 unit/L (08/29/14 4:21 PM) Bili Total [0.2-1.3 mg/dL] 0.3 mg/dL (08/29/14 4:21 PM) 1Result Comment: The eGFR is calculated [...] eGFR should be multiplied by the estimated BMI.2Interpretive Data: Adult reference range values reflect the clinical guidelines of the [place] [employer].HEMATOLOGY Most recent to oldest [Reference Range]: 1 WBC [3.7-10.4 K/CMM] 16.5 K/CMM *HI* (08/29/14 4:21 PM) RBC [4.20-5.40 M/CMM] 4.32 M/CMM (08/29/14 4:21 PM) Hgb [12.0-16.0 g/dL] 12.3 g/dL (08/29/14 4:21 PM) Hct [36.0-48.0 %] 37.9 % (08/29/14 4:21 PM) MCV [80.0-98.0 fL] 87.9 fL (08/29/14 4:21 PM) MCH [27.0-31.0 pg] 28.5 pg (08/29/14 4:21 PM) MCHC [32.0-36.0 g/dL] 32.4 g/dL (08/29/14 4:21 PM) RDW [11.5-14.5 %] 14.2 % (08/29/14 4:21 PM) Platelet [133-450 K/CMM] 229 K/CMM (08/29/14 4:21 PM) MPV [7.4-10.4 fL] 9.5 fL (08/29/14 4:21 PM) Segs [45.0-75.0 %] 84.1 % *HI* (08/29/14 4:21 PM) Lymphocytes [20.0-40.0 %] 11.8 % *LOW* (08/29/14 4:21 PM) Monocytes [2.0-12.0 %] 3.8 % (08/29/14 4:21 PM) Eosinophils [0.0-4.0 %] 0.1 % (08/29/14 4:21 PM) Basophils [0.0-1.0 %] 0.2 % (08/29/14 4:21 PM) Segs-Bands # [1.5-8.1 K/CMM] 13.9 K/CMM *HI* (08/29/14 4:21 PM) Lymphocytes # [1.0-5.5 K/CMM] 1.9 K/CMM (08/29/14 4:21 PM) Monocytes # [0.0-0.8 K/CMM] 0.6 K/CMM (08/29/14 4:21 PM) Eosinophils # [0.0-0.5 K/CMM] 0.0 K/CMM (08/29/14 4:21 PM) Basophils # [0.0-0.2 K/CMM] 0.0 K/CMM (08/29/14 4:21 PM) PT [12.0-14.7 seconds] 12.4 seconds (08/29/14 4:21 PM) INR [0.85-1.17] 0.93 3 (08/29/14 4:21 PM) PTT [22.9-35.8 seconds] 32.7 seconds 4 (08/29/14 4:21 PM) 3Interpretive Data: RECOMMENDED RANGES FOR PROTIME INR: 2.0-3.0 for most medical and surgical thromboembolic states. 2.5-3.5 for artificial heart valves and recurrent embolism. INR SHOULD BE USED ONLY FOR PATIENTS ON STABLE ANTICOAGULANT THERAPY.4Interpretive Data: Heparin Therapeutic Range: 57 - 92 Seconds Immunizations No data available for this section Procedures Procedure Date Related Diagnosis Body Site Abdominal hysterectomy Social History Social History Type Response Smoking Status Never smoker; Previous treatment: None; Ready to change: No; Concerns about tobacco use in household: No; Exposure to Tobacco Smoke None; Cigarette Smoking Last 365 Days No; Reg Smoking Cessation Counseling No Assessment and Plan No data available for this section
--- OUTSIDE RECORDS SUMMARY | 2017-11-14 10:33 | XMS REPORT ---
:1970 [facility] Organization [facility] Yovani Pearl [address] [place] [id number] Care Team Providers Name Role Phone UNKNOWN, REFFERING Primary Care Provider Unavailable BRY CONNORS M.D. Unavailable Unavailable RISHI RANDOLPH Unavailable Unavailable MIESHA THORPE Unavailable Unavailable ISABEL DELA CRUZ Unavailable Unavailable Problems This patient has no known problems. Allergies, Adverse Reactions, Alerts This patient has no known allergies or adverse reactions. Medications This patient has no known medications. Results Test Description Test Time Test Comments Text Results Atomic Results Result Comments Blood Gas+Lytes+Glu+Ca+Hgb+Hct+LA 2017-06-27 12:22:00 Test Item Value Reference Range Comments pH, Blood Gas (test code=BGPH) 7.384 pH Units 7.350-7.450 pCO2 (test code=PCO2) 48.2 mm Hg 15-125 pO2 (test code=PO2) 27.6 mm Hg 30-420 Bicarbonate (test code=HCO3) 28.7 mmol/L 22.0-26.0 Base Excess (test code=BE) 2.9 mmol/L O2 Saturation (test 45.9 % 20.0-100.0 % O2SAT is not a code=O2SAT) reliable measurement of the patient's oxygenation.Reference range not established for this test. Sodium, Blood Gas (test 143 mmol/L 135-145 code=BGNA) Potassium, Blood Gas (test 4.7 mmol/L 3.5-4.5 code=BGK) Chloride, Blood Gas (test 103 98-105 code=BGCL) Calcium, Ionized, Blood Gas 1.25 mmol/L 1.00-1.50 (test code=BGCAI) Glucose, Blood Gas (test 98 mg/dL 75-115 code=BGGLU) tHB (test code=RTHB) 12.2 gm/dL 7.0-25.0 Hematocrit, Blood Gas (test 37.4 % 34.0-52.0 code=BGHCT) O2Hb (test code=RO2HB) 45 80-100 Carboxyhemoglobin (test 1.9 % 0.0-20.0 code=CARHGB) Methemoglobin (test 1.1 % 0.0-20.0 code=METHGB) FIO2 % (test code=FIO2) 21 % Patient Temperature (test 37.0 Degrees Celcius code=PTTEMP) Puncture Site (test Other code=PUNSITE) Drawing Tech ID (test srussell code=DRAWTECH) iPAP (test code=IPAP) 0 cmH2O Respiratory Rate (test 0 code=RESP RATE) Lactic Acid, Blood Gas (test 0.7 mmol/L code=BGLA) HEMOGLOBIN [id number] 08:30:00 Test Item Value Reference Range Comments HEMOGLOBIN A1C (BEAKER) (test jrgm=241) 5.3 % 4.3-6.1 POCT-GLUCOSE [id number] 07:28:00 Test Item Value Reference Range Comments POC-GLUCOSE METER (BEAKER) 78 mg/dL 70-110 TESTED AT [address] (test yeup=6029) [place] [address] POCT-GLUCOSE [id number] 20:51:00 Test Item Value Reference Range Comments POC-GLUCOSE METER (BEAKER) 49 mg/dL 70-110 Will Repeat Test/TESTED AT (test avke=7803) [place] [id number] POCT-GLUCOSE [id number] 18:20:00 Test Item Value Reference Range Comments POC-GLUCOSE METER (BEAKER) 188 mg/dL 70-110 TESTED AT [address] (test joya=8527) [place] [address] T4, [id number] 17:50:00 Test Item Value Reference Range Comments FREE T4 (BEAKER) (test chot=123) 1.31 ng/dL 0.70-1.48 SEDIMENTATION [id number] 17:38:00 Test Item Value Reference Range Comments SEDIMENTATION RATE, ERYTHROCYTE (BEAKER) (test 103 mm/HR 0-20 gxsr=941) TSH/FREE T4 IF [id number] 16:25:00 Test Item Value Reference Range Comments THYROID STIMULATING HORMONE (BEAKER) (test 0.30 uIU/mL 0.35-4.94 vlar=502) CREATINE KINASE (CK), TOTAL AND [id number] 16:08:00 Test Item Value Reference Range Comments CREATINE KINASE TOTAL (BEAKER) (test vlrc=790) 111 U/L 29-200 CREATINE KINASE-MB (BEAKER) (test lcxu=708) 4.8 ng/mL 0.0-6.6 CREATINE KINASE-MB INDEX (BEAKER) (test zrmv=878) 4.3 % CK-MB Reference Range:<6.7 Normal6.7-10.0 Borderline>10.0 AbnormalTROPONIN [id number] 16:08:00 Test Item Value Reference Range Comments TROPONIN I (BEAKER) (test bgqu=672) 0.10 ng/mL 0.00-0.03 Troponin I (TnI) levels [...] and persistent tachyarrhythmia.CREATINE KINASE (CK), TOTAL AND [id number] 16:07:00 Test Item Value Reference Range Comments CREATINE KINASE TOTAL (BEAKER) (test pytn=751) 100 U/L 29-200 CREATINE KINASE-MB (BEAKER) (test iytm=022) 3.7 ng/mL 0.0-6.6 CREATINE KINASE-MB INDEX (BEAKER) (test qbfk=281) 3.7 % CK-MB Reference Range:<6.7 Normal6.7-10.0 Borderline>10.0 AbnormalTROPONIN [id number] 16:07:00 Test Item Value Reference Range Comments TROPONIN I (BEAKER) (test kvpq=262) 0.10 ng/mL 0.00-0.03 Troponin I (TnI) levels [...] failure, acidosis, acute neurological disease, and persistent tachyarrhythmia.[id number] 15:59:00 Test Item Value Reference Range Comments PHOSPHORUS (BEAKER) (test fued=108) 5.1 mg/dL 2.3-4.7 LIPID [id number] 15:59:00 Test Item Value Reference Range Comments TRIGLYCERIDES (BEAKER) (test kavz=620) 64 mg/dL CHOLESTEROL (BEAKER) (test cmwo=835) 112 mg/dL HDL CHOLESTEROL (BEAKER) (test kale=868) 36 mg/dL LDL CHOLESTEROL CALCULATED (BEAKER) (test 63 mg/dL tazr=036) Triglyceride Reference Range: Low Risk <150 Borderline 150- 199 High Risk 200-499 Very High Risk >=500Cholesterol Reference Range: Low Risk <200 Borderline 200-239 High Risk > 240HDL Cholesterol Reference Range: Low Risk >=60 High Risk <40LDL Cholesterol Reference Range: Optimal <100 Near Optimal 100-129 Borderline 130-159 High 160-189 Very High >=190HEPATIC FUNCTION [id number] 15:59:00 Test Item Value Reference Range Comments TOTAL PROTEIN (BEAKER) (test twaf=261) 6.6 gm/dL 6.0-8.3 ALBUMIN (BEAKER) (test zpka=7558) 2.5 g/dL 3.5-5.0 BILIRUBIN TOTAL (BEAKER) (test vhvq=496) 0.4 mg/dL 0.2-1.2 BILIRUBIN DIRECT (BEAKER) (test useh=681) 0.1 mg/dL 0.1-0.5 ALKALINE PHOSPHATASE (BEAKER) (test juuz=820) 82 U/L 40-150 AST (SGOT) (BEAKER) (test zilo=573) 16 U/L 5-34 ALT (SGPT) (BEAKER) (test fxcn=148) 10 U/L 6-55 C-REACTIVE [id number] 15:59:00 Test Item Value Reference Range Comments C-REACTIVE PROTEIN (BEAKER) (test qwal=462) 0.52 mg/dL 0.00-0.50 BASIC METABOLIC [id number] 15:59:00 Test Item Value Reference Range Comments SODIUM (BEAKER) (test 140 meq/L 136-145 lcfo=737) POTASSIUM (BEAKER) (test 4.4 meq/L 3.5-5.1 boub=269) CHLORIDE (BEAKER) (test 110 meq/L 98-107 dvhm=782) CO2 (BEAKER) (test 21 meq/L 22-29 swyy=003) BLOOD UREA NITROGEN 54 mg/dL 7-21 (BEAKER) (test yzno=160) CREATININE (BEAKER) (test 9.62 mg/dL 0.57-1.25 khrn=749) GLUCOSE RANDOM (BEAKER) 87 mg/dL 70-105 (test bvbl=499) CALCIUM (BEAKER) (test 8.0 mg/dL 8.4-10.2 srut=247) EGFR (BEAKER) (test 5 mL/min/1.73 sq m ESTIMATED GFR IS NOT hnzz=6483) ACCURATE CREATININE CLEARANCE IN PREDICTING GLOMERULAR FILTRATION RATE. ESTIMATED GFR IS NOT APPLICABLE FOR DIALYSIS PATIENTS. CBC W/PLT COUNT & AUTO [id number] 15:16:00 Test Item Value Reference Range Comments WHITE BLOOD CELL COUNT (BEAKER) (test thsh=319) 4.3 K/ L 3.5-10.5 RED BLOOD CELL COUNT (BEAKER) (test rqxj=621) 2.57 M/ L 3.93-5.22 HEMOGLOBIN (BEAKER) (test iyki=792) 7.3 GM/DL 11.2-15.7 HEMATOCRIT (BEAKER) (test kcxu=766) 23.4 % 34.1-44.9 MEAN CORPUSCULAR VOLUME (BEAKER) (test ykkx=974) 91.1 fL 79.4-94.8 MEAN CORPUSCULAR HEMOGLOBIN (BEAKER) (test 28.4 pg 25.6-32.2 prob=728) MEAN CORPUSCULAR HEMOGLOBIN CONC (BEAKER) (test 31.2 GM/DL 32.2-35.5 jqst=687) RED CELL DISTRIBUTION WIDTH (BEAKER) (test 15.1 % 11.7-14.4 kxqo=511) PLATELET COUNT (BEAKER) (test cwtj=144) 184 K/CU MM 150-450 MEAN PLATELET VOLUME (BEAKER) (test wggl=375) 10.8 fL 9.4-12.3 NUCLEATED RED BLOOD CELLS (BEAKER) (test 0 /100 WBC 0-0 ihfk=830) NEUTROPHILS RELATIVE PERCENT (BEAKER) (test 58 % nifq=663) LYMPHOCYTES RELATIVE PERCENT (BEAKER) (test 25 % dktf=670) MONOCYTES RELATIVE PERCENT (BEAKER) (test 13 % xkhi=089) EOSINOPHILS RELATIVE PERCENT (BEAKER) (test 4 % satl=063) BASOPHILS RELATIVE PERCENT (BEAKER) (test 1 % frdb=051) NEUTROPHILS ABSOLUTE COUNT (BEAKER) (test 2.50 K/ L 1.56-6.13 uwaf=626) LYMPHOCYTES ABSOLUTE COUNT (BEAKER) (test 1.07 K/ L 1.18-3.74 rnzw=917) MONOCYTES ABSOLUTE COUNT (BEAKER) (test 0.55 K/ L 0.24-0.36 szuu=199) EOSINOPHILS ABSOLUTE COUNT (BEAKER) (test 0.17 K/ L 0.04-0.36 spxy=574) BASOPHILS ABSOLUTE COUNT (BEAKER) (test 0.02 K/ L 0.01-0.08 laza=534) IMMATURE GRANULOCYTES-RELATIVE PERCENT (BEAKER) 0 % 0-1 (test tfsn=5905) PROTHROMBIN [id number] 15:08:00 Test Item Value Reference Range Comments PROTIME (BEAKER) (test bsit=750) 16.0 seconds 11.7-14.7 INR (BEAKER) (test gljt=364) 1.3 <=5.9 RECOMMENDED COUMADIN/WARFARIN INR THERAPY RANGESSTANDARD DOSE: 2.0 - 3.0 Includes: PROPHYLAXIS forvenous thrombosis, systemic embolization; TREATMENT for venous thrombosis and/or pulmonary embolus.HIGH RISK: Target INR is 2.5-3.5 for patients with mechanical heart valves.POCT-GLUCOSE [id number] 12:04:00 Test Item Value Reference Range Comments POC-GLUCOSE METER (BEAKER) 187 mg/dL 70-110 TESTED AT [facility] [address] [facility] (test wrse=8677) [facility] [address] POCT-GLUCOSE [id number] 09:11:00 Test Item Value Reference Range Comments POC-GLUCOSE METER (BEAKER) 83 mg/dL 70-110 TESTED AT [facility] [address] (test nlnk=3969) [facility] [address] MR, BRAIN, WITHOUT [id number] 00:47:00PT started dialysis 2015Reason for exam:->Sudden onset [...] MDReport Verified Date/Time: 02/23/2017 00:47:16 Reading Location: [address] Body Reading Room AFB CULTURE + [id number] 07: 45:00 Test Item Value Reference Range Comments CULTURE (BEAKER) (test No acid-fast bacilli isolated cubx=0976) in 42 days AFB SMEAR (BEAKER) (test No acid fast bacilli seen yufc=792) AFB CULTURE + [id number] 07:45:00 Test Item Value Reference Range Comments CULTURE (BEAKER) (test No acid-fast bacilli isolated iwbj=1182) in 42 days AFB SMEAR (BEAKER) (test No acid fast bacilli seen jump=949) FUNGUS CULTURE + [id number] 18:17:00 Test Item Value Reference Range Comments CULTURE (BEAKER) (test No fungus isolated in 28 days qbsv=9118) FUNGUS SMEAR (BEAKER) (test No fungi seen bnux=7445) FUNGUS CULTURE + [id number] 18:17:00 Test Item Value Reference Range Comments CULTURE (BEAKER) (test No fungus isolated in 28 days hxwo=1822) FUNGUS SMEAR (BEAKER) (test No fungi seen nhcw=5262) AFB CULTURE + [id number] 14:52:00 Test Item Value Reference Range Comments CULTURE (BEAKER) (test No acid-fast bacilli isolated legz=9338) in 42 days AFB SMEAR (BEAKER) (test No acid fast bacilli seen hrrz=880) AB SPECIFICITY CLASS [id number] 10:13:00 Test Item Value Reference Range Comments DATE OF SERUM (BEAKER) (test vpfd=1733) [id number] SERUM # (BEAKER) (test oeqt=0128) 755168 AB SPECIFICITY CLASS I (BEAKER) (test lzjb=0656) AB SPECIFICITY CLASS [id number] 10:13:00 Test Item Value Reference Range Comments DATE OF SERUM (BEAKER) (test oltt=8334) [id number] SERUM # (BEAKER) (test ouyd=2814) 764593 AB SPECIFICITY CLASS II (BEAKER) (test See Scanned Report mlvo=8726) HERPES VIRUS ANTIBODY, [id number] 14:21:00 Test Item Value Reference Range Comments HERPES VIRUS IGM (BEAKER) (test Negative HSV 1 IGM=NEGHSV 2 IGM=NEG nzyq=2607) TOXOPLASMA GONDII ANTIBODY, [id number] 14:21:00 Test Item Value Reference Range Comments TOXOPLASMA IGM ANTIBODY (BEAKER) (test gltq=657) Negative FLOW PRA CLASS I AND [id number] 15:15:00 Test Item Value Reference Range Comments DATE OF SERUM (BEAKER) (test tbzs=7208) 161441 SERUM # (BEAKER) (test msoe=0146) [id number] FLOW PRA CLASS I AND II (test evad=5444) See Scanned Report VARICELLA ZOSTER ANTIBODY, [id number] 14:59:00 Test Item Value Reference Range Comments VARICELLA ZOSTER IGG (AL) (BEAKER) (test auqb=2505) 5.8 Al VARICELLA ZOSTER RESULT INTERPRETATIONS: <=0.8 Al Nonreactive: Presumed non-immune to VZV 0.9-1.0 Al Equivocal >=1.1 Al Reactive: Presumed immune to VZVCT, [id number] 14:16:00PT started dialysis 07/12/2015Addendum BeginsREPORT STATUS:A The original report incorrectly states that the procedure was performed with intravenous contrast. In fact, the procedure was performed without intravenous contrast. Signed: Gigi Diaz MDReport Verified Date/Time: 01/13/2017 14: 16:42 ReadingLocation: [facility] B1 C013X Ortho Consult Reading RoomAddendum EndsFINAL [...] Verified Date/Time: 01/06/2017 23:49: 19 Reading Location: [facility] [id number] Reading Room CT, CHEST, WITHOUT [id number] 14:16:00PT started dialysis 07/12/2015Addendum BeginsREPORT STATUS:A The original report incorrectly states that the procedure was performed with intravenous contrast. In fact, the procedure was performed without intravenous contrast. Signed: Gigi Diaz MDReport Verified Date/Time: 01/13/2017 14:16:42 ReadingLocation: [facility] C013X Ortho Consult Reading RoomAddendum EndsFINAL REPORT [...] MDReport Verified Date/Time: 01/06/2017 23:49:19 Reading Location: [facility] B1 [id number] Reading Room Electronically signed by: GIGI DIAZ M.D. on 2016 02:16 [facility] [id number] 14:06:00 Test Item Value Reference Range Comments SODIUM (BEAKER) (test 135 meq/L 136-145 mszd=513) POTASSIUM (BEAKER) (test 4.1 meq/L 3.5-5.1 qsdq=991) CHLORIDE (BEAKER) (test 102 meq/L 98-107 fzyr=334) CO2 (BEAKER) (test 24 meq/L 22-29 sttc=541) BLOOD UREA NITROGEN 24 mg/dL 7-21 (BEAKER) (test gndm=994) CREATININE (BEAKER) (test 8.29 mg/dL 0.57-1.25 pvdi=725) GLUCOSE RANDOM (BEAKER) 84 mg/dL 70-105 (test hcjj=464) CALCIUM (BEAKER) (test 8.8 mg/dL 8.4-10.2 omif=883) EGFR (BEAKER) (test 6 mL/min/1.73 sq m ESTIMATED GFR IS NOT qphr=0956) ACCURATE CREATININE CLEARANCE IN PREDICTING GLOMERULAR FILTRATION RATE. ESTIMATED GFR IS NOT APPLICABLE FOR DIALYSIS PATIENTS. [id number] 14:04:00 Test Item Value Reference Range Comments MAGNESIUM (BEAKER) (test ntgj=157) 1.7 mg/dL 1.6-2.6 PROTHROMBIN [id number] 13:52:00 Test Item Value Reference Range Comments PROTIME (BEAKER) (test jlkc=266) 16.5 seconds 11.7-14.7 INR (BEAKER) (test ndnz=135) 1.3 <=5.9 RECOMMENDED COUMADIN/WARFARIN INR THERAPY RANGESSTANDARD DOSE: 2.0 - 3.0 Includes: PROPHYLAXIS forvenous thrombosis, systemic embolization; TREATMENT for venous thrombosis and/or pulmonary embolus.HIGH RISK: Target INR is 2.5-3.5 for patients with mechanical heart valves.While on warfarin.CBC (HEMOGRAM ONLY) 2017-01-13 13:43:00 Test Item Value Reference Range Comments WHITE BLOOD CELL COUNT (BEAKER) (test wylz=732) 3.9 K/ L 3.5-10.5 RED BLOOD CELL COUNT (BEAKER) (test avrn=087) 2.61 M/ L 3.93-5.22 HEMOGLOBIN (BEAKER) (test byty=096) 7.5 GM/DL 11.2-15.7 HEMATOCRIT (BEAKER) (test insv=911) 23.8 % 34.1-44.9 MEAN CORPUSCULAR VOLUME (BEAKER) (test owdv=152) 91.2 fL 79.4-94.8 MEAN CORPUSCULAR HEMOGLOBIN (BEAKER) (test 28.7 pg 25.6-32.2 eqor=054) MEAN CORPUSCULAR HEMOGLOBIN CONC (BEAKER) (test 31.5 GM/DL 32.2-35.5 ansp=951) RED CELL DISTRIBUTION WIDTH (BEAKER) (test 14.2 % 11.7-14.4 ofxg=545) PLATELET COUNT (BEAKER) (test sqja=564) 187 K/CU MM 150-450 MEAN PLATELET VOLUME (BEAKER) (test ewww=138) 11.2 fL 9.4-12.3 NUCLEATED RED BLOOD CELLS (BEAKER) (test 0 /100 WBC 0-0 lght=559) POCT-GLUCOSE [id number] 07:33:00 Test Item Value Reference Range Comments POC-GLUCOSE METER (BEAKER) 82 mg/dL 70-110 TESTED AT [address] (test nqvb=0017) [facility] [address] POCT-GLUCOSE [id number] 22:10:00 Test Item Value Reference Range Comments POC-GLUCOSE METER (BEAKER) 118 mg/dL 70-110 TESTED AT [address] (test trjb=7108) [facility] [address] POCT-GLUCOSE [id number] 16:58:00 Test Item Value Reference Range Comments POC-GLUCOSE METER (BEAKER) 102 mg/dL 70-110 TESTED AT [address] (test izus=4640) [place] [address] POCT-GLUCOSE [id number] 07:43:00 Test Item Value Reference Range Comments POC-GLUCOSE METER (BEAKER) 93 mg/dL 70-110 TESTED AT [address] (test wnlq=7058) [place] [address] POCT-GLUCOSE [id number] 21:58:00 Test Item Value Reference Range Comments POC-GLUCOSE METER (BEAKER) 130 mg/dL 70-110 TESTED AT [address] (test ibvd=3288) [place] [address] POCT-GLUCOSE [id number] 17:59:00 Test Item Value Reference Range Comments POC-GLUCOSE METER (BEAKER) 144 mg/dL 70-110 TESTED AT [address] (test ygqn=6845) [place] [address] CYTOMEGALOVIRUS ANTIBODY, [id number] 15:45:00 Test Item Value Reference Range Comments CYTOMEGALOVIRUS IGG ANTIBODY (BEAKER) (test Negative gkip=462) CYTOMEGALOVIRUS ANTIBODY, [id number] 15:45:00 Test Item Value Reference Range Comments CYTOMEGALOVIRUS IGM ANTIBODY (BEAKER) (test Negative peyq=352) HERPES VIRUS ANTIBODY, [id number] 15:45:00 Test Item Value Reference Range Comments HERPES VIRUS IGG (BEAKER) (test Positive HSV 1 IGG=POSHSV 2 IGG=POS mmfw=2037) EBV-VCA ANTIBODY, [id number] 15:45:00 Test Item Value Reference Range Comments GIO-NICK VCA IGG (BEAKER) (test oedi=186) Positive EBV-VCA ANTIBODY, [id number] 15:45:00 Test Item Value Reference Range Comments GIO-NICK VCA IGM (BEAKER) (test mtbc=755) Negative TOXOPLASMA GONDII ANTIBODY, [id number] 15:45:00 Test Item Value Reference Range Comments TOXOPLASMA GONDII IGG (BEAKER) (test qbzf=427) Negative POCT-GLUCOSE [id number] 14:27:00 Test Item Value Reference Range Comments POC-GLUCOSE METER (BEAKER) 108 mg/dL 70-110 TESTED AT [facility] [address] [facility] (test lraf=4135) [facility] [address] IMMUNOFIXATION ELECTROPHORESIS (YOANNA)2017-01-11 13:52:00 Test Item Value Reference Range Comments IMMUNOGLOBULIN G (IGG) (BEAKER) 2035 mg/dL 540-1822 (test sqmw=562) IMMUNOGLOBULIN A (IGA) (BEAKER) 148 mg/dL 63-484 (test klgn=551) IMMUNOGLOBULIN M (IGM) (BEAKER) 125 mg/dL 22-293 (test arya=386) SERUM YOANNA ID (BEAKER) (test Polyclonal distribution of biju=9723) immunoglobulins; no monoclonal proteins detected. Small band seen on SPEP, therefore, is likely due to presence of fibrinogen in the sample. [id number] ([facility] Pat Pinzon MD (test qpue=9639) (electronic signature) Do not collect, specimen already in lab.BASIC METABOLIC [id number] 09:44:00 Test Item Value Reference Range Comments SODIUM (BEAKER) (test 137 meq/L 136-145 fvpv=609) POTASSIUM (BEAKER) (test 3.9 meq/L 3.5-5.1 hcdw=765) CHLORIDE (BEAKER) (test 101 meq/L 98-107 jfrc=661) CO2 (BEAKER) (test 30 meq/L 22-29 vemz=196) BLOOD UREA NITROGEN 20 mg/dL 7-21 (BEAKER) (test jnsm=334) CREATININE (BEAKER) (test 7.35 mg/dL 0.57-1.25 okbc=606) GLUCOSE RANDOM (BEAKER) 85 mg/dL 70-105 (test yvgc=045) CALCIUM (BEAKER) (test 8.5 mg/dL 8.4-10.2 bopm=783) EGFR (BEAKER) (test 7 mL/min/1.73 sq m ESTIMATED GFR IS NOT ckrq=9207) ACCURATE CREATININE CLEARANCE IN PREDICTING GLOMERULAR FILTRATION RATE. ESTIMATED GFR IS NOT APPLICABLE FOR DIALYSIS PATIENTS. [id number] 09:20:00 Test Item Value Reference Range Comments MAGNESIUM (BEAKER) (test uwzr=973) 1.8 mg/dL 1.6-2.6 POCT-GLUCOSE [id number] 09:18:00 Test Item Value Reference Range Comments POC-GLUCOSE METER (BEAKER) 100 mg/dL 70-110 TESTED AT [address] (test fhfh=4700) [facility] [address] PROTHROMBIN TIME/[id number] 08:51:00 Test Item Value Reference Range Comments PROTIME (BEAKER) (test bbgd=776) 15.1 seconds 11.7-14.7 INR (BEAKER) (test xftg=768) 1.2 <=5.9 RECOMMENDED COUMADIN/WARFARIN INR THERAPY RANGESSTANDARD DOSE: 2.0 - 3.0 Includes: PROPHYLAXIS forvenous thrombosis, systemic embolization; TREATMENT for venous thrombosis and/or pulmonary embolus.HIGH RISK: Target INR is 2.5-3.5 for patients with mechanical heart valves.While on warfarin.HGB/HCT (H&H) - STAT [id number] 08:44:00 Test Item Value Reference Range Comments HEMOGLOBIN (BEAKER) (test cxkt=879) 8.0 g/dL 12.0-15.0 HEMATOCRIT (BEAKER) (test mcpu=257) 24.0 % 36.0-45.0 POCT-GLUCOSE [id number] 23:05:00 Test Item Value Reference Range Comments POC-GLUCOSE METER (BEAKER) 108 mg/dL 70-110 TESTED AT [address] (test gmpf=4152) [facility] [address] POCT-GLUCOSE [id number] 17:36:00 Test Item Value Reference Range Comments POC-GLUCOSE METER (BEAKER) 133 mg/dL 70-110 TESTED AT [address] (test mzin=0268) [facility] [address] POCT-GLUCOSE [id number] 12:31:00 Test Item Value Reference Range Comments POC-GLUCOSE METER (BEAKER) 115 mg/dL 70-110 TESTED AT [address] (test zohu=4860) [place] [address] FUNGUS CULTURE + [id number] 12:30:00 Test Item Value Reference Range Comments CULTURE (BEAKER) (test No fungus isolated in 28 days ardq=9619) FUNGUS SMEAR (BEAKER) (test No fungi seen dqsh=2497) POCT-GLUCOSE [id number] 08:30:00 Test Item Value Reference Range Comments POC-GLUCOSE METER (BEAKER) 99 mg/dL 70-110 TESTED AT [address] (test wwxd=0902) [place] [address] POCT-GLUCOSE [id number] 00:16:00 Test Item Value Reference Range Comments POC-GLUCOSE METER (BEAKER) 106 mg/dL 70-110 TESTED AT [address] (test gjed=6320) [place] [address] POCT-GLUCOSE [id number] 22:21:00 Test Item Value Reference Range Comments POC-GLUCOSE METER (BEAKER) 88 mg/dL 70-110 TESTED AT [address] (test fdjg=3166) [place] [address] POCT-GLUCOSE [id number] 14:36:00 Test Item Value Reference Range Comments POC-GLUCOSE METER (BEAKER) 119 mg/dL 70-110 TESTED AT [address] (test fpoi=9111) [place] [address] PROTEIN ELECTROPHORESIS, [id number] 13:56:00 Test Item Value Reference Range Comments ALBUMIN FRACTION (BEAKER) 2.0 g/dL 3.5-5.5 (test ihld=935) ALPHA 1 FRACTION (BEAKER) 0.3 g/dL 0.2-0.4 (test gndl=642) ALPHA 2 FRACTION (BEAKER) 0.6 g/dL 0.5-0.9 (test mscu=900) BETA FRACTION (BEAKER) 0.9 g/dL 0.6-1.1 (test qqdm=606) GAMMA GLOBULIN FRACTION 1.9 g/dL 0.7-1.7 (BEAKER) (test nern=756) INTERPRETATION-119 (BEAKER) There is a peak in the gamma (test cpei=5023) region that may indicate a monoclonal gammopathy. Refer to serum immunofixation electrophoresis. [id number] Anne Yen MD (electronic (BEAKER) (test guqn=6817) signature) PROTEIN TOTAL SERUM, SPEP 5.7 gm/dL 6.0-8.3 (BEAKER) (test dvyg=2454) Do not collect, specimen already in lab.POTASSIUM-STAT [id number] 10:33:00 Test Item Value Reference Range Comments POTASSIUM (BEAKER) (test tkld=047) 4.9 meq/L 3.6-5.5 GLUCOSE-STAT [id number] 10:33:00 Test Item Value Reference Range Comments GLUCOSE RANDOM (BEAKER) (test hidr=839) 129 mg/dL 70-110 HGB/HCT (H&H) - STAT [id number] 10:33:00 Test Item Value Reference Range Comments HEMOGLOBIN (BEAKER) (test fest=743) 12.3 g/dL 12.0-15.0 HEMATOCRIT (BEAKER) (test gnai=672) 36.0 % 36.0-45.0 HGB/HCT (H&H) - STAT [id number] 07:59:00 Test Item Value Reference Range Comments HEMOGLOBIN (BEAKER) (test igqt=752) 8.5 g/dL 12.0-15.0 HEMATOCRIT (BEAKER) (test hkpx=658) 25.0 % 36.0-45.0 BASIC METABOLIC [id number] 07:16:00 Test Item Value Reference Range Comments SODIUM (BEAKER) (test 134 meq/L 136-145 unqa=714) POTASSIUM (BEAKER) (test 4.5 meq/L 3.5-5.1 uwcu=970) CHLORIDE (BEAKER) (test 101 meq/L 98-107 wryq=331) CO2 (BEAKER) (test 24 meq/L 22-29 lrap=747) BLOOD UREA NITROGEN 24 mg/dL 7-21 (BEAKER) (test nsqa=831) CREATININE (BEAKER) (test 7.96 mg/dL 0.57-1.25 vppn=060) GLUCOSE RANDOM (BEAKER) 88 mg/dL 70-105 (test lrmo=162) CALCIUM (BEAKER) (test 8.5 mg/dL 8.4-10.2 osyp=203) EGFR (BEAKER) (test 7 mL/min/1.73 sq m ESTIMATED GFR IS NOT pkwx=2423) ACCURATE CREATININE CLEARANCE IN PREDICTING GLOMERULAR FILTRATION RATE. ESTIMATED GFR IS NOT APPLICABLE FOR DIALYSIS PATIENTS. [id number] 07:10:00 Test Item Value Reference Range Comments MAGNESIUM (BEAKER) (test aijn=345) 2.0 mg/dL 1.6-2.6 POCT-GLUCOSE [id number] 06:47:00 Test Item Value Reference Range Comments POC-GLUCOSE METER (BEAKER) 113 mg/dL 70-110 TESTED AT [address] (test izwm=1370) [place] [address] [id number] 02:25:00 Test Item Value Reference Range Comments PARTIAL THROMBOPLASTIN TIME (BEAKER) (test 67.7 seconds 22.5-36.0 jhmn=279) POCT-GLUCOSE [id number] 18:18:00 Test Item Value Reference Range Comments POC-GLUCOSE METER (BEAKER) 138 mg/dL 70-110 TESTED AT [address] (test xkrh=7839) [place] [id number] 17:24:00 Test Item Value Reference Range Comments PROTIME (BEAKER) (test xonl=512) 15.2 seconds 11.7-14.7 INR (BEAKER) (test hjag=975) 1.2 <=5.9 PARTIAL THROMBOPLASTIN TIME (BEAKER) (test 37.0 seconds 22.5-36.0 mgxf=029) RECOMMENDED COUMADIN/WARFARIN INR THERAPY RANGESSTANDARD DOSE: 2.0 - 3.0 Includes: PROPHYLAXIS forvenous thrombosis, systemic embolization; TREATMENT for venous thrombosis and/or pulmonary embolus.HIGH RISK: Target INR is 2.5-3.5 for patients with mechanical heart valves.ANAEROBIC [id number] 14:23:00 Test Item Value Reference Range Comments CULTURE (BEAKER) (test duzi=8918) No anaerobes isolated ANAEROBIC [id number] 14:23:00 Test Item Value Reference Range Comments CULTURE (BEAKER) (test xeme=2290) No anaerobes isolated POCT-GLUCOSE [id number] 12:45:00 Test Item Value Reference Range Comments POC-GLUCOSE METER (BEAKER) 126 mg/dL 70-110 TESTED AT [address] (test sftb=9351) [facility] [address] SURGICALLY OBTAINED CULTURE + GRAM [id number] 11:41:00 Test Item Value Reference Range Comments CULTURE (BEAKER) (test From Broth Only Same organism gpgt=7251) has been isolated from cultures(s) of the same body site and collection date. Repeat identification and susceptibility testing performed only after consultation with the clinical microbiology laboratory.Refer to previous culture ofCoagulase negative Staphylococcus GRAM STAIN RESULT <1+ WBCs (BEAKER) (test lmne=8471) GRAM STAIN RESULT No organisms seen (BEAKER) (test xsjh=126760) SURGICALLY OBTAINED CULTURE + GRAM [id number] 11:38:00 Test Item Value Reference Range Comments CULTURE (BEAKER) (test ojgl=7528) Clindamycin (test code=10) Erythromycin (test code=4) Levofloxacin (test code=22) Linezolid (test code=40) Nitrofurantoin (test code=23) Oxacillin (test code=14) Rifampin (test code=43) Tetracycline (test code=2) Trimethoprim + Sulfamethoxazole (test code=47) Vancomycin (test code=13) CULTURE (BEAKER) (test 2+ Coagulase negative dyrs=9457) Staphylococcus CULTURE (BEAKER) (test 4+ Diphtheroid egnx=2817) GRAM STAIN RESULT (BEAKER) <1+ WBCs (test jijv=2162) GRAM STAIN RESULT (BEAKER) No organisms seen (test ucvu=662904) [id number] 10:08:00 Test Item Value Reference Range Comments PROTIME (BEAKER) (test ampo=375) 14.7 seconds 11.7-14.7 INR (BEAKER) (test wmou=823) 1.2 <=5.9 PARTIAL THROMBOPLASTIN TIME (BEAKER) (test 40.2 seconds 22.5-36.0 fnds=224) RECOMMENDED COUMADIN/WARFARIN INR THERAPY RANGESSTANDARD DOSE: 2.0 - 3.0 Includes: PROPHYLAXIS forvenous thrombosis, systemic embolization; TREATMENT for venous thrombosis and/or pulmonary embolus.HIGH RISK: Target INR is 2.5-3.5 for patients with mechanical heart valves.POCT-GLUCOSE [id number] 08:24:00 Test Item Value Reference Range Comments POC-GLUCOSE METER (BEAKER) 97 mg/dL 70-110 TESTED AT [address] (test audf=6793) [facility] [address] [id number] 07:39:00 Test Item Value Reference Range Comments PARTIAL THROMBOPLASTIN TIME (BEAKER) (test 192.0 seconds 22.5-36.0 gjcd=039) [id number] 07:37:00 Test Item Value Reference Range Comments MAGNESIUM (BEAKER) (test eneg=439) 1.7 mg/dL 1.6-2.6 BASIC METABOLIC [id number] 07:37:00 Test Item Value Reference Range Comments SODIUM (BEAKER) (test 136 meq/L 136-145 amzk=995) POTASSIUM (BEAKER) (test 4.2 meq/L 3.5-5.1 ikyo=203) CHLORIDE (BEAKER) (test 100 meq/L 98-107 mdgq=477) CO2 (BEAKER) (test 31 meq/L 22-29 zfhv=279) BLOOD UREA NITROGEN 15 mg/dL 7-21 (BEAKER) (test upiq=312) CREATININE (BEAKER) (test 5.65 mg/dL 0.57-1.25 lsvs=638) GLUCOSE RANDOM (BEAKER) 121 mg/dL 70-105 (test dmcu=585) CALCIUM (BEAKER) (test 8.4 mg/dL 8.4-10.2 lcnq=686) EGFR (BEAKER) (test 10 mL/min/1.73 sq m ESTIMATED GFR IS NOT potx=0002) ACCURATE CREATININE CLEARANCE IN PREDICTING GLOMERULAR FILTRATION RATE. ESTIMATED GFR IS NOT APPLICABLE FOR DIALYSIS PATIENTS. [id number] 23:25:00 Test Item Value Reference Range Comments PARTIAL THROMBOPLASTIN TIME (BEAKER) (test 97.8 seconds 22.5-36.0 qmsy=963) POCT-GLUCOSE [id number] 22:52:00 Test Item Value Reference Range Comments POC-GLUCOSE METER (BEAKER) 98 mg/dL 70-110 TESTED AT [address] (test zheg=3943) [facility] [address] POCT-GLUCOSE [id number] 17:43:00 Test Item Value Reference Range Comments POC-GLUCOSE METER (BEAKER) 86 mg/dL 70-110 TESTED AT [address] (test blxr=2721) [place] [address] [id number] 15:59:00 Test Item Value Reference Range Comments PARTIAL THROMBOPLASTIN TIME (BEAKER) (test 62.8 seconds 22.5-36.0 biwe=493) POCT-GLUCOSE [id number] 14:50:00 Test Item Value Reference Range Comments POC-GLUCOSE METER (BEAKER) 115 mg/dL 70-110 TESTED AT [address] (test ukdb=8802) [place] [address] [id number] 14:00:00 Test Item Value Reference Range Comments PARTIAL THROMBOPLASTIN TIME (BEAKER) (test 113.6 seconds 22.5-36.0 qbbh=257) VANCOMYCIN LEVEL, [id number] 13:10:00 Test Item Value Reference Range Comments VANCOMYCIN RANDOM (BEAKER) (test setf=956) 33.9 ug/mL Reference Range: No NormalsTROPONIN [id number] 12:52:00 Test Item Value Reference Range Comments TROPONIN I (BEAKER) (test txok=589) 0.09 ng/mL 0.00-0.03 Troponin I (TnI) levels [...] acidosis, acute neurological disease, and persistent tachyarrhythmia.POCT-GLUCOSE [id number] 12:19:00 Test Item Value Reference Range Comments POC-GLUCOSE METER (BEAKER) 87 mg/dL 70-110 TESTED AT [address] (test mljr=2154) [place] [address] POCT-GLUCOSE [id number] 08:36:00 Test Item Value Reference Range Comments POC-GLUCOSE METER (BEAKER) 62 mg/dL 70-110 Notified MILA IGLESIAS/TESTED AT [facility] (test gyjb=6182) [address] [place] [address] ANTI-NUCLEAR ANTIBODY ([place]ILTON)2017-01-07 06:33:00 Test Item Value Reference Range Comments ANTI-NUCLEAR ANTIBODY ([place]) (BEAKER) (test Positive Negative yauj=466) [place] TITER AND [id number] 06:33:00 Test Item Value Reference Range Comments [place] TITER (BEAKER) (test lqei=5874) :640 [place] PATTERN (BEAKER) (test mfnr=6160) SSA/RO TROPONIN [id number] 03:35:00 Test Item Value Reference Range Comments TROPONIN I (BEAKER) (test plzf=266) 0.10 ng/mL 0.00-0.03 Troponin I (TnI) levels [...] acute neurological disease, and persistent tachyarrhythmia.BASIC METABOLIC [id number] 03:28:00 Test Item Value Reference Range Comments SODIUM (BEAKER) (test 137 meq/L 136-145 oqhf=161) POTASSIUM (BEAKER) (test 4.5 meq/L 3.5-5.1 bmun=279) CHLORIDE (BEAKER) (test 103 meq/L 98-107 mhtp=030) CO2 (BEAKER) (test 27 meq/L 22-29 ibdf=225) BLOOD UREA NITROGEN 22 mg/dL 7-21 (BEAKER) (test jlai=297) CREATININE (BEAKER) (test 7.44 mg/dL 0.57-1.25 gomi=169) GLUCOSE RANDOM (BEAKER) 73 mg/dL 70-105 (test lokh=045) CALCIUM (BEAKER) (test 8.2 mg/dL 8.4-10.2 sbpy=217) EGFR (BEAKER) (test 7 mL/min/1.73 sq m ESTIMATED GFR IS NOT hjgy=4955) ACCURATE CREATININE CLEARANCE IN PREDICTING GLOMERULAR FILTRATION RATE. ESTIMATED GFR IS NOT APPLICABLE FOR DIALYSIS PATIENTS. [id number] 03:27:00 Test Item Value Reference Range Comments MAGNESIUM (BEAKER) (test hobo=717) 1.9 mg/dL 1.6-2.6 [id number] 03:24:00 Test Item Value Reference Range Comments PARTIAL THROMBOPLASTIN TIME (BEAKER) (test 111.9 seconds 22.5-36.0 rftc=768) [id number] 00:18:00 Test Item Value Reference Range Comments RPR SCREEN (BEAKER) (test ixtx=416) Nonreactive Nonreactive BLOOD [id number] 00:00:00 Test Item Value Reference Range Comments CULTURE (BEAKER) (test wddb=6803) No growth in 5 days BLOOD [id number] 00:00:00 Test Item Value Reference Range Comments CULTURE (BEAKER) (test omme=5892) No growth in [address], BRAIN, WITHOUT [id number] 23:31:00PT started dialysis 2015FINAL REPORT Clinical history [...] Nuno MDReportVerified Date/Time: 01/06/2017 23:31:20 Reading Location: [facility] [id number] Ortho Consult Reading Room Electronically signed by: ERLIN NUNO M.D. on 11:31 PMPOCT-GLUCOSE [id number] 22:02:00 Test Item Value Reference Range Comments POC-GLUCOSE METER (BEAKER) 99 mg/dL 70-110 TESTED AT [facility] [address] [facility] (test wdxc=2890) [facility] [address] [id number] 18:44:00 Test Item Value Reference Range Comments PARTIAL THROMBOPLASTIN TIME (BEAKER) (test 94.9 seconds 22.5-36.0 pfas=039) HEPATITIS A ANTIBODY, [id number] 18:03:00 Test Item Value Reference Range Comments HEPATITIS A IGG ANTIBODY (BEAKER) (test vypf=3290) Reactive Nonreactive HIV-1 ANTIGEN WITH HIV-1/2 [id number] 17:58:00 Test Item Value Reference Range Comments HIV-1 ANTIGEN WITH HIV 1\\T\\2 ANTIBODY (2) Nonreactive Nonreactive (BEAKER) (test lekp=1104) POCT-GLUCOSE [id number] 17:55:00 Test Item Value Reference Range Comments POC-GLUCOSE METER (BEAKER) 89 mg/dL 70-110 TESTED AT [facility] [address] (test sxfm=0028) [facility] [address] ANG, TUNNELED DIALYSIS CATH [id number] 17:45:00PT started dialysis 03/2015Reason for exam:->needs snf HD access, please d/c [facility]ley after PC [...] Physician intra- service time was 20 minutes. Smelter Charger: Richard. Film Numberer: Rolf. Approach: Right internal jugular vein Estimated [...] needle into the right atrium. A 4 Welsh micropuncture sheath was placed. A subcutaneous tunnel was created in the right anterior chest wall by blunt dissection. A 19 cm 15.5 Welsh Duraflow 2 catheter was brought through the [...] MDReport Verified Date/Time: 01/06/2017 17:45:51 Reading Location: [address] Ultrasound Reading Room [id number] 17:37:00 Test Item Value Reference Range Comments PARTIAL THROMBOPLASTIN TIME (BEAKER) (test > seconds 22.5-36.0 bsbw=683) U/S, RENAL, [id number] 17:29:00PT started dialysis 07/12/2015Reason for exam:->heart transplant [...] MDReport Verified Date/Time: 01/06/2017 17:29:12 Reading Location: [address] Ultrasound Reading Room TROPONIN [id number] 17:04:00 Test Item Value Reference Range Comments TROPONIN I (AKER) (test rsya=557) 0.10 ng/mL 0.00-0.03 Troponin I (TnI) levels [...] failure, acidosis, acute neurological disease, and persistent tachyarrhythmia.[id number] 16:54:00 Test Item Value Reference Range Comments FERRITIN (LyxiaAKER) (test zfnp=298) 216 ng/mL 5-275 VITAMIN D, [id number] 16:48:00 Test Item Value Reference Range Comments VITAMIN D 25-OH (BEAKER) (test aacj=9066) 6.4 ng/mL 6.6-49.9 Effective 12/21/2016: Reference Range ChangeNew: 6.6-49.9 ng/mL Previous: 13.0 -47.8 ng/mLRecommended Vitamin D Target Range: 30.0-40.0 ng/mLT4, [id number] 16:43:00 Test Item Value Reference Range Comments FREE T4 (BEAKER) (test ghhg=637) 1.56 ng/dL 0.70-1.48 [id number] 16:43:00 Test Item Value Reference Range Comments THYROID STIMULATING HORMONE (BEAKER) (test 0.98 uIU/mL 0.35-4.94 vcqk=451) [id number] 16:22:00 Test Item Value Reference Range Comments TRANSFERRIN (BEAKER) (test qqey=273) 122 mg/dL 174-382 [id number] 16:13:00 Test Item Value Reference Range Comments PREALBUMIN (BEAKER) (test unym=628) 14 mg/dL 14-45 IRON, [id number] 16:13:00 Test Item Value Reference Range Comments IRON (BEAKER) (test hfmq=469) 23 ug/dL 40-160 TROPONIN [id number] 15:31:00 Test Item Value Reference Range Comments TROPONIN I (BEAKER) (test hply=175) 0.12 ng/mL 0.00-0.03 Troponin I (TnI) levels [...] failure, acidosis, acute neurological disease, and persistent tachyarrhythmia.[id number] 15:30:00 Test Item Value Reference Range Comments CREATININE (BEAKER) (test 6.49 mg/dL 0.57-1.25 ddyw=570) EGFR (BEAKER) (test 8 mL/min/1.73 sq m ESTIMATED GFR IS NOT goux=3552) ACCURATE CREATININE CLEARANCE IN PREDICTING GLOMERULAR FILTRATION RATE. ESTIMATED GFR IS NOT APPLICABLE FOR DIALYSIS PATIENTS. URIC [id number] 15:25:00 Test Item Value Reference Range Comments URIC ACID (BEAKER) (test rzzy=714) 3.3 mg/dL 2.6-7.2 LIPID [id number] 15:25:00 Test Item Value Reference Range Comments TRIGLYCERIDES (BEAKER) (test fsan=503) 57 mg/dL CHOLESTEROL (BEAKER) (test gtwo=909) 131 mg/dL HDL CHOLESTEROL (BEAKER) (test efwr=302) 51 mg/dL LDL CHOLESTEROL CALCULATED (BEAKER) (test 69 mg/dL kkdc=187) Triglyceride Reference Range: Low Risk <150 Borderline 150- 199 High Risk 200-499 Very High Risk >=500Cholesterol Reference Range: Low Risk <200 Borderline 200-239 High Risk > 240HDL Cholesterol Reference Range: Low Risk >=60 High Risk <40LDL Cholesterol Reference Range: Optimal <100 Near Optimal 100-129 Borderline 130-159 High 160-189 Very High >=[id number] 15:25:00 Test Item Value Reference Range Comments AMYLASE (BEAKER) (test mupo=451) 60 U/L 25-125 GAMMA GLUTAMYL TRANSFERASE (GGT)2017-01-06 15:25:00 Test Item Value Reference Range Comments GAMMA GLUTAMYL TRANSFERASE (BEAKER) (test dypn=559) 15 U/L 9-64 [id number] 15:25:00 Test Item Value Reference Range Comments LIPASE (BEAKER) (test shfi=909) 46 U/L 8-78 RETICULOCYTE [id number] 15:07:00 Test Item Value Reference Range Comments RETICULOCYTE COUNT PCT (BEAKER) (test mlbg=219) 1.2 % 0.5-1.7 POCT-GLUCOSE [id number] 09:33:00 Test Item Value Reference Range Comments POC-GLUCOSE METER (BEAKER) 103 mg/dL 70-110 TESTED AT [address] (test ntev=3886) [facility] [address] POCT-GLUCOSE [id number] 06:37:00 Test Item Value Reference Range Comments POC-GLUCOSE METER (BEAKER) 108 mg/dL 70-110 TESTED AT [address] (test bjzf=7458) [facility] [address] VANCOMYCIN LEVEL, [id number] 04:30:00 Test Item Value Reference Range Comments VANCOMYCIN RANDOM (BEAKER) (test nnbc=400) 37.6 ug/mL Reference Range: No NormalsTROPONIN [id number] 04:19:00 Test Item Value Reference Range Comments TROPONIN I (BEAKER) (test isrc=893) 0.11 ng/mL 0.00-0.03 Troponin I (TnI) levels [...] acute neurological disease, and persistent tachyarrhythmia.BASIC METABOLIC [id number] 04:12:00 Test Item Value Reference Range Comments SODIUM (BEAKER) (test 139 meq/L 136-145 fmzv=770) POTASSIUM (BEAKER) (test 4.2 meq/L 3.5-5.1 hxlk=349) CHLORIDE (BEAKER) (test 105 meq/L 98-107 rumi=641) CO2 (BEAKER) (test 28 meq/L 22-29 yxum=510) BLOOD UREA NITROGEN 15 mg/dL 7-21 (BEAKER) (test occp=465) CREATININE (BEAKER) (test 5.74 mg/dL 0.57-1.25 njez=380) GLUCOSE RANDOM (BEAKER) 85 mg/dL 70-105 (test aezg=295) CALCIUM (BEAKER) (test 8.2 mg/dL 8.4-10.2 fbnp=104) EGFR (BEAKER) (test 10 mL/min/1.73 sq m ESTIMATED GFR IS NOT xrlq=7463) ACCURATE CREATININE CLEARANCE IN PREDICTING GLOMERULAR FILTRATION RATE. ESTIMATED GFR IS NOT APPLICABLE FOR DIALYSIS PATIENTS. [id number] 04:11:00 Test Item Value Reference Range Comments MAGNESIUM (BEAKER) (test yqva=128) 1.7 mg/dL 1.6-2.6 [id number] 03:57:00 Test Item Value Reference Range Comments PARTIAL THROMBOPLASTIN TIME (BEAKER) (test 36.0 seconds 22.5-36.0 yvxs=100) Prior to initiating heparinCBC (HEMOGRAM ONLY)2017-01-06 03:49:00 Test Item Value Reference Range Comments WHITE BLOOD CELL COUNT (BEAKER) (test ftvt=157) 7.3 K/ L 3.5-10.5 RED BLOOD CELL COUNT (BEAKER) (test exlh=352) 2.81 M/ L 3.93-5.22 HEMOGLOBIN (BEAKER) (test azmo=268) 8.1 GM/DL 11.2-15.7 HEMATOCRIT (BEAKER) (test ceud=787) 26.1 % 34.1-44.9 MEAN CORPUSCULAR VOLUME (BEAKER) (test ngqu=387) 92.9 fL 79.4-94.8 MEAN CORPUSCULAR HEMOGLOBIN (BEAKER) (test 28.8 pg 25.6-32.2 aizk=430) MEAN CORPUSCULAR HEMOGLOBIN CONC (BEAKER) (test 31.0 GM/DL 32.2-35.5 ofhr=119) RED CELL DISTRIBUTION WIDTH (BEAKER) (test 14.3 % 11.7-14.4 lykg=486) PLATELET COUNT (BEAKER) (test ytkt=519) 150 K/CU MM 150-450 MEAN PLATELET VOLUME (BEAKER) (test xxmb=335) 11.0 fL 9.4-12.3 NUCLEATED RED BLOOD CELLS (BEAKER) (test 0 /100 WBC 0-0 uouj=293) TROPONIN [id number] 00:42:00 Test Item Value Reference Range Comments TROPONIN I (BEAKER) (test msde=950) 0.11 ng/mL 0.00-0.03 Troponin I (TnI) levels [...] acidosis, acute neurological disease, and persistent tachyarrhythmia.POCT-GLUCOSE [id number] 00:27:00 Test Item Value Reference Range Comments POC-GLUCOSE METER (BEAKER) 97 mg/dL 70-110 TESTED AT [facility] [address] [facility] (test jjqg=3701) [facility] [address] [id number] 00:23:00 Test Item Value Reference Range Comments PARTIAL THROMBOPLASTIN TIME (BEAKER) (test 34.2 seconds 22.5-36.0 zwto=334) [id number] 17:16:00 Test Item Value Reference Range Comments PARTIAL THROMBOPLASTIN TIME (BEAKER) (test 58.7 seconds 22.5-36.0 lpnx=005) TISSUE [id number] 16:16:00Surgical Pathology Report Case: [id number] Authorizing Provider: Fabi Parekh MD Collected: 01/04/2017 1055 Ordering Location: [facility] Received: 01/04/2017 1314 PERIOPERATIVE SERVICES Pathologist: Judit Medel MD Specimen: Hernia, Hernia Sac HERNIA SAC, ABDOMINAL, INCISIONAL HERNIA, REPAIR: - FIBROADIPOSE TISSUE AND REACTIVE CHANGS WITH FOREIGN BODY GIANT CELLS, CONSISTENT WITH INCISIONAL HERNIA SAC Signing Pathologist Direct Phone Line: [phone] signed by Judit Medel MD on 01/05/2017 at 4:16 [id number] renal disease, incisional hernia sacHernia sacReceived fresh labeled "hernia", description "hernia sac" is an 8.3 x 7.3 x 1.0 cm, dark-red to corral-white, irregular, rubbery, wrinkled portion of fibromembranoussoft tissue. Sectioning reveals no discrete masses. Oil Field Equipment Mechanic Supervisor sections are submitted in cassette A1. DB/ew Performed.[id number] 14:43:00 Test Item Value Reference Range Comments PARTIAL THROMBOPLASTIN TIME ([facility]) (test 162.1 seconds 22.5-36.0 dsue=482) POCT-GLUCOSE [id number] 13:01:00 Test Item Value Reference Range Comments POC-GLUCOSE METER ([facility]) 88 mg/dL 70-110 TESTED AT [address] (test jtcw=6874) [place] [address] TROPONIN [id number] 12:59:00 Test Item Value Reference Range Comments TROPONIN I (LyxiaAKER) (test nicz=972) 0.13 ng/mL 0.00-0.03 Troponin I (TnI) levels [...] acidosis, acute neurological disease, and persistent tachyarrhythmia.SPIN/CONCENTRATION [id number] 12: 45:00 Test Item Value Reference Range Comments CONCENTRATION CHARGED (LyxiaAKER) (test tylg=2587) Done POCT-GLUCOSE [id number] 09:10:00 Test Item Value Reference Range Comments POC-GLUCOSE METER ([facility]) 102 mg/dL 70-110 TESTED AT [address] (test jdua=0598) [place] [address] CBC W/PLT COUNT & AUTO [id number] 08:49:00 Test Item Value Reference Range Comments WHITE BLOOD CELL COUNT (BEAKER) (test pgxd=920) 8.1 K/ L 3.5-10.5 RED BLOOD CELL COUNT (BEAKER) (test pqzl=634) 2.94 M/ L 3.93-5.22 HEMOGLOBIN (BEAKER) (test dsgy=849) 8.5 GM/DL 11.2-15.7 HEMATOCRIT (BEAKER) (test tvvo=891) 26.9 % 34.1-44.9 MEAN CORPUSCULAR VOLUME (BEAKER) (test nmoy=039) 91.5 fL 79.4-94.8 MEAN CORPUSCULAR HEMOGLOBIN (BEAKER) (test 28.9 pg 25.6-32.2 rieq=990) MEAN CORPUSCULAR HEMOGLOBIN CONC (BEAKER) (test 31.6 GM/DL 32.2-35.5 opdt=274) RED CELL DISTRIBUTION WIDTH (BEAKER) (test 14.3 % 11.7-14.4 vmhg=794) PLATELET COUNT (BEAKER) (test nvpl=849) 158 K/CU MM 150-450 MEAN PLATELET VOLUME (BEAKER) (test ehks=723) 11.0 fL 9.4-12.3 NUCLEATED RED BLOOD CELLS (BEAKER) (test 0 /100 WBC 0-0 flqt=250) NEUTROPHILS RELATIVE PERCENT (BEAKER) (test 71 % saax=594) LYMPHOCYTES RELATIVE PERCENT (BEAKER) (test 14 % omwi=698) MONOCYTES RELATIVE PERCENT (BEAKER) (test 14 % ujjp=027) EOSINOPHILS RELATIVE PERCENT (BEAKER) (test 1 % lpnu=535) BASOPHILS RELATIVE PERCENT (BEAKER) (test 0 % fqkm=633) NEUTROPHILS ABSOLUTE COUNT (BEAKER) (test 5.73 K/ L 1.56-6.13 rtvc=416) LYMPHOCYTES ABSOLUTE COUNT (BEAKER) (test 1.14 K/ L 1.18-3.74 joyu=020) MONOCYTES ABSOLUTE COUNT (BEAKER) (test 1.11 K/ L 0.24-0.36 xsao=988) EOSINOPHILS ABSOLUTE COUNT (BEAKER) (test 0.10 K/ L 0.04-0.36 xbor=598) BASOPHILS ABSOLUTE COUNT (BEAKER) (test 0.02 K/ L 0.01-0.08 oekn=349) IMMATURE GRANULOCYTES-RELATIVE PERCENT (BEAKER) 1 % 0-1 (test gssx=3430) POCT-GLUCOSE [id number] 07:57:00 Test Item Value Reference Range Comments POC-GLUCOSE METER (BEAKER) 133 mg/dL 70-110 TESTED AT [facility] [address] [facility] (test irft=7648) [place] [id number] BODY FLUID CULTURE + GRAM [id number] 07:44:00 Test Item Value Reference Range Comments CULTURE (BEAKER) (test wmfu=8605) No growth GRAM STAIN RESULT (BEAKER) (test <1+ WBCs ulxd=4270) GRAM STAIN RESULT (BEAKER) (test No organisms seen qskn=24931) POCT-GLUCOSE [id number] 06:05:00 Test Item Value Reference Range Comments POC-GLUCOSE METER (BEAKER) 63 mg/dL 70-110 TESTED AT [address] (test sbmd=1095) [facility] [address] VANCOMYCIN LEVEL, [id number] 05:32:00 Test Item Value Reference Range Comments VANCOMYCIN RANDOM (BEAKER) (test gpzg=075) 31.0 ug/mL Reference Range: No NormalsBASIC METABOLIC [id number] 05:24:00 Test Item Value Reference Range Comments SODIUM (BEAKER) (test 138 meq/L 136-145 zoff=657) POTASSIUM (BEAKER) (test 5.1 meq/L 3.5-5.1 kuxw=330) CHLORIDE (BEAKER) (test 105 meq/L 98-107 tibq=421) CO2 (BEAKER) (test 27 meq/L 22-29 hihp=473) BLOOD UREA NITROGEN 33 mg/dL 7-21 (BEAKER) (test vlas=475) CREATININE (BEAKER) (test 9.93 mg/dL 0.57-1.25 qqwa=364) GLUCOSE RANDOM (BEAKER) 57 mg/dL 70-105 (test nxdu=897) CALCIUM (BEAKER) (test 8.7 mg/dL 8.4-10.2 smfg=453) EGFR (BEAKER) (test 5 mL/min/1.73 sq m ESTIMATED GFR IS NOT crba=3440) ACCURATE CREATININE CLEARANCE IN PREDICTING GLOMERULAR FILTRATION RATE. ESTIMATED GFR IS NOT APPLICABLE FOR DIALYSIS PATIENTS. TROPONIN [id number] 05:23:00 Test Item Value Reference Range Comments TROPONIN I (BEAKER) (test bple=504) 0.13 ng/mL 0.00-0.03 Troponin I (TnI) levels [...] failure, acidosis, acute neurological disease, and persistent tachyarrhythmia.[id number] 05:21:00 Test Item Value Reference Range Comments MAGNESIUM (BEAKER) (test clff=131) 1.7 mg/dL 1.6-2.6 [id number] 05:06:00 Test Item Value Reference Range Comments PARTIAL THROMBOPLASTIN TIME (BEAKER) (test 89.4 seconds 22.5-36.0 tuvs=781) PROTHROMBIN TIME/[id number] 05:04:00 Test Item Value Reference Range Comments PROTIME (BEAKER) (test cgaj=811) 14.6 seconds 11.7-14.7 INR (BEAKER) (test cslo=848) 1.2 <=5.9 RECOMMENDED COUMADIN/WARFARIN INR THERAPY RANGESSTANDARD DOSE: 2.0 - 3.0 Includes: PROPHYLAXIS forvenous thrombosis, systemic embolization; TREATMENT for venous thrombosis and/or pulmonary embolus.HIGH RISK: Target INR is 2.5-3.5 for patients with mechanical heart valves.TROPONIN [id number] 17:14:00 Test Item Value Reference Range Comments TROPONIN I (BEAKER) (test ajvr=460) 0.16 ng/mL 0.00-0.03 Troponin I (TnI) levels [...] failure, acidosis, acute neurological disease, and persistent tachyarrhythmia.[id number] 16:55:00 Test Item Value Reference Range Comments GLUCOSE RANDOM (BEAKER) (test xlow=024) 140 mg/dL 70-105 GLUCOSE-STAT [id number] 13:33:00 Test Item Value Reference Range Comments GLUCOSE RANDOM (BEAKER) (test wkqv=778) 101 mg/dL 70-110 POTASSIUM-STAT [id number] 13:33:00 Test Item Value Reference Range Comments POTASSIUM (BEAKER) (test hemj=994) 4.6 meq/L 3.6-5.5 HGB/HCT (H&H) - STAT [id number] 13:33:00 Test Item Value Reference Range Comments HEMOGLOBIN (BEAKER) (test lmic=846) 13.0 g/dL 12.0-15.0 HEMATOCRIT (BEAKER) (test kain=132) 38.0 % 36.0-45.0 BODY FLUID CULTURE + GRAM [id number] 09:05:00 Test Item Value Reference Range Comments CULTURE (BEAKER) (test fejq=7474) No growth GRAM STAIN RESULT (BEAKER) (test <1+ WBCs ftla=6549) GRAM STAIN RESULT (BEAKER) (test No organisms seen hhis=78123) POCT-GLUCOSE [id number] 07:58:00 Test Item Value Reference Range Comments POC-GLUCOSE METER (BEAKER) 81 mg/dL 70-110 TESTED AT [facility] [address] [place] [address] (test zgwz=8023) [facility] [address] HCG, QUANTITATIVE, [id number] 07:23:00 Test Item Value Reference Range Comments GONADOTROPIN, CHORIONIC (HCG) QUANT (BEAKER) (test < mIU/mL 0-10 qsdk=626) Non- Females: <10 mIU/mL Females: Gestation Age Reference Range(mIU/mL) 0.2-1 Week 5-50 1-2 Weeks 50-500 2-3 Weeks 100-5,000 3-4Weeks 500-10,000 4 -5 Weeks 1,000-50,000 5-6 Weeks 10,000-100,000 6-8 Weeks 15,000-200,000 2-3 Months 10,000-100,000TROPONIN [id number] 07:19 :00 Test Item Value Reference Range Comments TROPONIN I (BEAKER) (test ripd=309) 0.17 ng/mL 0.00-0.03 Troponin I (TnI) levels [...] acute neurological disease, and persistent tachyarrhythmia.BASIC METABOLIC [id number] 07:19:00 Test Item Value Reference Range Comments SODIUM (BEAKER) (test 137 meq/L 136-145 prcx=344) POTASSIUM (BEAKER) (test 4.4 meq/L 3.5-5.1 wucw=211) CHLORIDE (BEAKER) (test 103 meq/L 98-107 uvgr=685) CO2 (BEAKER) (test 27 meq/L 22-29 cjlz=705) BLOOD UREA NITROGEN 26 mg/dL 7-21 (BEAKER) (test zjiw=957) CREATININE (BEAKER) (test 8.02 mg/dL 0.57-1.25 oqoy=283) GLUCOSE RANDOM (BEAKER) 74 mg/dL 70-105 (test vfac=740) CALCIUM (BEAKER) (test 8.3 mg/dL 8.4-10.2 vghy=607) EGFR (BEAKER) (test 7 mL/min/1.73 sq m ESTIMATED GFR IS NOT jpew=8104) ACCURATE CREATININE CLEARANCE IN PREDICTING GLOMERULAR FILTRATION RATE. ESTIMATED GFR IS NOT APPLICABLE FOR DIALYSIS PATIENTS. [id number] 07:18:00 Test Item Value Reference Range Comments MAGNESIUM (BEAKER) (test omsw=601) 1.7 mg/dL 1.6-2.6 PT/[id number] 06:48:00 Test Item Value Reference Range Comments PROTIME (BEAKER) (test gcum=028) 15.0 seconds 11.7-14.7 INR (BEAKER) (test mucn=841) 1.2 <=5.9 PARTIAL THROMBOPLASTIN TIME (BEAKER) (test 103.5 seconds 22.5-36.0 fkds=284) RECOMMENDED COUMADIN/WARFARIN INR THERAPY RANGESSTANDARD DOSE: 2.0 - 3.0 Includes: PROPHYLAXIS forvenous thrombosis, systemic embolization; TREATMENT for venous thrombosis and/or pulmonary embolus.HIGH RISK: Target INR is 2.5-3.5 for patients with mechanical heart valves.CBC W/PLT COUNT & AUTO [id number] 06:44:00 Test Item Value Reference Range Comments WHITE BLOOD CELL COUNT (BEAKER) (test jrsc=602) 6.8 K/ L 3.5-10.5 RED BLOOD CELL COUNT (BEAKER) (test cglg=679) 2.94 M/ L 3.93-5.22 HEMOGLOBIN (BEAKER) (test dvnh=035) 8.3 GM/DL 11.2-15.7 HEMATOCRIT (BEAKER) (test akyi=974) 26.9 % 34.1-44.9 MEAN CORPUSCULAR VOLUME (BEAKER) (test uzbo=584) 91.5 fL 79.4-94.8 MEAN CORPUSCULAR HEMOGLOBIN (BEAKER) (test 28.2 pg 25.6-32.2 kvgm=121) MEAN CORPUSCULAR HEMOGLOBIN CONC (BEAKER) (test 30.9 GM/DL 32.2-35.5 xdfi=743) RED CELL DISTRIBUTION WIDTH (BEAKER) (test 14.1 % 11.7-14.4 hcpx=478) PLATELET COUNT (BEAKER) (test vxoc=743) 148 K/CU MM 150-450 MEAN PLATELET VOLUME (BEAKER) (test paqp=587) 11.2 fL 9.4-12.3 NUCLEATED RED BLOOD CELLS (BEAKER) (test 0 /100 WBC 0-0 qvft=371) NEUTROPHILS RELATIVE PERCENT (BEAKER) (test 64 % bakt=166) LYMPHOCYTES RELATIVE PERCENT (BEAKER) (test 15 % qkgg=734) MONOCYTES RELATIVE PERCENT (BEAKER) (test 16 % zhmy=649) EOSINOPHILS RELATIVE PERCENT (BEAKER) (test 5 % wfbv=292) BASOPHILS RELATIVE PERCENT (BEAKER) (test 0 % ggju=100) NEUTROPHILS ABSOLUTE COUNT (BEAKER) (test 4.36 K/ L 1.56-6.13 fscw=011) LYMPHOCYTES ABSOLUTE COUNT (BEAKER) (test 1.05 K/ L 1.18-3.74 chlu=453) MONOCYTES ABSOLUTE COUNT (BEAKER) (test 1.06 K/ L 0.24-0.36 janf=167) EOSINOPHILS ABSOLUTE COUNT (BEAKER) (test 0.32 K/ L 0.04-0.36 ojlh=415) BASOPHILS ABSOLUTE COUNT (BEAKER) (test 0.03 K/ L 0.01-0.08 muce=866) IMMATURE GRANULOCYTES-RELATIVE PERCENT (BEAKER) 0 % 0-1 (test cdqf=6805) POCT-GLUCOSE [id number] 01:01:00 Test Item Value Reference Range Comments POC-GLUCOSE METER (BEAKER) 96 mg/dL 70-110 TESTED AT [address] (test ztiq=3642) [place] [address] TROPONIN [id number] 00:46:00 Test Item Value Reference Range Comments TROPONIN I (BEAKER) (test nqxn=956) 0.16 ng/mL 0.00-0.03 Troponin I (TnI) levels [...] failure, acidosis, acute neurological disease, and persistent tachyarrhythmia.[id number] 00:21:00 Test Item Value Reference Range Comments PROTIME (BEAKER) (test tdah=262) 15.8 seconds 11.7-14.7 INR (BEAKER) (test gypo=610) 1.3 <=5.9 PARTIAL THROMBOPLASTIN TIME (BEAKER) (test 78.1 seconds 22.5-36.0 nchq=798) RECOMMENDED COUMADIN/WARFARIN INR THERAPY RANGESSTANDARD DOSE: 2.0 - 3.0 Includes: PROPHYLAXIS forvenous thrombosis, systemic embolization; TREATMENT for venous thrombosis and/or pulmonary embolus.HIGH RISK: Target INR is 2.5-3.5 for patients with mechanical heart valves.POCT-GLUCOSE [id number] 21:58:00 Test Item Value Reference Range Comments POC-GLUCOSE METER (BEAKER) 142 mg/dL 70-110 TESTED AT [address] (test uhii=9402) [facility] [address] VANCOMYCIN LEVEL, [id number] 20:19:00 Test Item Value Reference Range Comments VANCOMYCIN RANDOM (BEAKER) (test wzdr=062) 18.4 ug/mL Reference Range: No NormalsTROPONIN [id number] 18:36:00 Test Item Value Reference Range Comments TROPONIN I (BEAKER) (test figg=966) 0.18 ng/mL 0.00-0.03 Troponin I (TnI) levels [...] acidosis, acute neurological disease, and persistent tachyarrhythmia.POCT-GLUCOSE [id number] 18:30:00 Test Item Value Reference Range Comments POC-GLUCOSE METER (BEAKER) 119 mg/dL 70-110 TESTED AT [address] (test auns=6833) [place] [address] HEMOGLOBIN [id number] 18:21:00 Test Item Value Reference Range Comments HEMOGLOBIN A1C (BEAKER) (test qbll=128) 6.3 % 4.3-6.1 POCT-GLUCOSE [id number] 18:00:00 Test Item Value Reference Range Comments POC-GLUCOSE METER (BEAKER) 57 mg/dL 70-110 TESTED AT [address] (test umtt=7828) [place] [address] [id number] 16:34:00 Test Item Value Reference Range Comments PARTIAL THROMBOPLASTIN TIME (BEAKER) (test 99.2 seconds 22.5-36.0 ttgo=684) [id number] 15:36:00 Test Item Value Reference Range Comments PARTIAL THROMBOPLASTIN TIME (BEAKER) (test 123.9 seconds 22.5-36.0 raei=193) [id number] 13:38:00 Test Item Value Reference Range Comments PARTIAL THROMBOPLASTIN TIME (BEAKER) (test > seconds 22.5-36.0 raie=034) TROPONIN [id number] 13:27:00 Test Item Value Reference Range Comments TROPONIN I (BEAKER) (test mfhz=892) 0.19 ng/mL 0.00-0.03 Troponin I (TnI) levels [...] acidosis, acute neurological disease, and persistent tachyarrhythmia.POCT-GLUCOSE [id number] 13:25:00 Test Item Value Reference Range Comments POC-GLUCOSE METER (BEAKER) 120 mg/dL 70-110 TESTED AT [address] (test xzdx=4680) [place] [address] POCT-GLUCOSE [id number] 09:50:00 Test Item Value Reference Range Comments POC-GLUCOSE METER (BEAKER) 85 mg/dL 70-110 TESTED AT [address] (test foeu=4972) [place] [address] TROPONIN [id number] 08:31:00 Test Item Value Reference Range Comments TROPONIN I (BEAKER) (test kywl=476) 0.20 ng/mL 0.00-0.03 Troponin I (TnI) levels [...] failure, acidosis, acute neurological disease, and persistent tachyarrhythmia.[id number] 03:35:00 Test Item Value Reference Range Comments PARTIAL THROMBOPLASTIN TIME (BEAKER) (test 39.1 seconds 22.5-36.0 jqdp=566) BASIC METABOLIC [id number] 03:34:00 Test Item Value Reference Range Comments SODIUM (BEAKER) (test 134 meq/L 136-145 kscd=470) POTASSIUM (BEAKER) (test 5.0 meq/L 3.5-5.1 djsx=084) CHLORIDE (BEAKER) (test 100 meq/L 98-107 mkpf=987) CO2 (BEAKER) (test 24 meq/L 22-29 ckhq=146) BLOOD UREA NITROGEN 50 mg/dL 7-21 (BEAKER) (test jjab=922) CREATININE (BEAKER) (test 11.51 mg/dL 0.57-1.25 tnpx=916) GLUCOSE RANDOM (BEAKER) 105 mg/dL 70-105 (test wnsc=891) CALCIUM (BEAKER) (test 8.0 mg/dL 8.4-10.2 ujys=074) EGFR (BEAKER) (test 4 mL/min/1.73 sq m ESTIMATED GFR IS NOT zdxe=3415) ACCURATE CREATININE CLEARANCE IN PREDICTING GLOMERULAR FILTRATION RATE. ESTIMATED GFR IS NOT APPLICABLE FOR DIALYSIS PATIENTS. [id number] 03:32:00 Test Item Value Reference Range Comments MAGNESIUM (BEAKER) (test dtii=282) 1.5 mg/dL 1.6-2.6 CBC W/PLT COUNT & AUTO [id number] 03:17:00 Test Item Value Reference Range Comments WHITE BLOOD CELL COUNT (BEAKER) (test acbu=922) 6.6 K/ L 3.5-10.5 RED BLOOD CELL COUNT (BEAKER) (test pqsc=097) 3.10 M/ L 3.93-5.22 HEMOGLOBIN (BEAKER) (test zszd=390) 8.8 GM/DL 11.2-15.7 HEMATOCRIT (BEAKER) (test utok=527) 28.3 % 34.1-44.9 MEAN CORPUSCULAR VOLUME (BEAKER) (test udlu=245) 91.3 fL 79.4-94.8 MEAN CORPUSCULAR HEMOGLOBIN (BEAKER) (test 28.4 pg 25.6-32.2 lsqy=029) MEAN CORPUSCULAR HEMOGLOBIN CONC (BEAKER) (test 31.1 GM/DL 32.2-35.5 dydo=110) RED CELL DISTRIBUTION WIDTH (BEAKER) (test 14.1 % 11.7-14.4 cdeo=109) PLATELET COUNT (BEAKER) (test nqmc=219) 150 K/CU MM 150-450 MEAN PLATELET VOLUME (BEAKER) (test qwjh=901) 10.6 fL 9.4-12.3 NUCLEATED RED BLOOD CELLS (BEAKER) (test 0 /100 WBC 0-0 cbbq=851) NEUTROPHILS RELATIVE PERCENT (BEAKER) (test 74 % xrvn=419) LYMPHOCYTES RELATIVE PERCENT (BEAKER) (test 11 % dfhz=692) MONOCYTES RELATIVE PERCENT (BEAKER) (test 10 % liwt=423) EOSINOPHILS RELATIVE PERCENT (BEAKER) (test 4 % niaj=787) BASOPHILS RELATIVE PERCENT (BEAKER) (test 1 % obgq=208) NEUTROPHILS ABSOLUTE COUNT (BEAKER) (test 4.91 K/ L 1.56-6.13 mfmi=683) LYMPHOCYTES ABSOLUTE COUNT (BEAKER) (test 0.74 K/ L 1.18-3.74 ubpl=710) MONOCYTES ABSOLUTE COUNT (BEAKER) (test 0.65 K/ L 0.24-0.36 yzzf=599) EOSINOPHILS ABSOLUTE COUNT (BEAKER) (test 0.29 K/ L 0.04-0.36 vaiy=969) BASOPHILS ABSOLUTE COUNT (BEAKER) (test 0.03 K/ L 0.01-0.08 xopo=262) IMMATURE GRANULOCYTES-RELATIVE PERCENT (BEAKER) 0 % 0-1 (test lhxi=8628) TROPONIN [id number] 01:22:00 Test Item Value Reference Range Comments TROPONIN I (BEAKER) (test ofja=488) 0.19 ng/mL 0.00-0.03 Troponin I (TnI) levels [...] acidosis, acute neurological disease, and persistent tachyarrhythmia.POCT-GLUCOSE [id number] 00:49:00 Test Item Value Reference Range Comments POC-GLUCOSE METER (BEAKER) 74 mg/dL 70-110 TESTED AT [facility] [address] [place] [address] (test xzjl=5834) [facility] [address] TROPONIN [id number] 18:57:00 Test Item Value Reference Range Comments TROPONIN I (BEAKER) (test cdad=520) 0.17 ng/mL 0.00-0.03 Troponin I (TnI) levels [...] acute neurological disease, and persistent tachyarrhythmia.VANCOMYCIN LEVEL, [id number] 18:52 :00 Test Item Value Reference Range Comments VANCOMYCIN RANDOM (BEAKER) (test btzb=632) 29.2 ug/mL Reference Range: No NormalsLACTATE DEHYDROGENASE (LDH)2017-01-02 18:46:00 Test Item Value Reference Range Comments LACTATE DEHYDROGENASE (BEAKER) (test tfjz=950) 300 U/L 125-220 BODY FLUID CELL COUNT WITH [id number] 18:36:00 Test Item Value Reference Range Comments APPEARANCE FLUID (BEAKER) (test dnzd=007) Slightly Hazy Clear COLOR FLUID (BEAKER) (test vron=812) Yellow Colorless, Straw RBC FLUID (BEAKER) (test vheg=153) 690 /cu mm <=1 ADJUSTED WBC FLUID (BEAKER) (test bqvf=6787) 68 /cu mm <=5 LINING CELLS (BEAKER) (test wtcx=3037) 2 /cu mm <=1 NEUTROPHILS FLUID (BEAKER) (test evxh=7371) 2 % LYMPHS FLUID (BEAKER) (test jmmc=496) 9 % MONO/MACROPHAGE FLUID (BEAKER) (test 89 % earu=611) EOSINOPHILS FLUID (BEAKER) (test mqqq=559) 0 % BASO FLUID (BEAKER) (test ctkl=055) 0 % CONTAINER BODY FLUID (BEAKER) (test EDTA Tube mysx=4861) RAD, CHEST, 1 VIEW, NON [id number] 18:36:00PT started dialysis 07/12/2015 Reason for exam:->s/p thoraFINAL REPORT Comparison: TECHNIQUE: Single view of the chest FINDINGS: Right pleural effusion has decreased. No pneumothorax bilaterally. No other significant change. Signed : Turner Grierort Verified Date/Time: 01/02/2017 18:36:30 Reading Location : [facility] C013W Consult Reading Room PH, BODY [id number] 18:22:00 Test Item Value Reference Range Comments PH, BODY FLUID (BEAKER) (test xhpb=8018) 7.80 POCT-GLUCOSE [id number] 18:19:00 Test Item Value Reference Range Comments POC-GLUCOSE METER (BEAKER) 91 mg/dL 70-110 TESTED AT [facility] [address] [facility] (test tlxy=8342) [facility] [address] LACTATE DEHYDROGENASE (LDH), BODY [id number] 18:04:00 Test Item Value Reference Range Comments LACTATE DEHYDROGENASE FLUID (BEAKER) 123 U/L Light's criteria identifies (test mfpu=890) effusions if one or more are pre Absence of reference range indicates that normals have not been defined.Assay performance has not been validated for this type of specimen.PROTEIN, BODY [id number] 18:04:00 Test Item Value Reference Range Comments PROTEIN FLUID (BEAKER) (test 2.1 g/dL Light's criteria identifies yrqj=139) effusions if one or more are pre Absence of reference range indicates that normals have not been defined.Assay performance has not been validated for this type of specimen.HEPATITIS B [id number] 13:51:00 Test Item Value Reference Range Comments HEPATITIS B CORE TOTAL ANTIBODY (BEAKER) (test Nonreactive Nonreactive qdmp=893) HEPATITIS B SURFACE ANTIBODY (BEAKER) (test 29.1 mIU/mL <8.0 qqnb=362) HEPATITIS B SURFACE ANTIGEN (2) (BEAKER) (test Nonreactive Nonreactive jtkg=0623) CREATINE KINASE (CK), TOTAL AND [id number] 13:09:00 Test Item Value Reference Range Comments CREATINE KINASE TOTAL (BEAKER) (test dfhu=741) 285 U/L 29-200 CREATINE KINASE-MB (BEAKER) (test vovl=791) 15.2 ng/mL 0.0-6.6 CREATINE KINASE-MB INDEX (BEAKER) (test vuws=736) 5.3 % CK-MB Reference Range:<6.7 Normal6.7-10.0 Borderline>10.0 AbnormalTROPONIN [id number] 13:09:00 Test Item Value Reference Range Comments TROPONIN I (BEAKER) (test uuuq=873) 0.18 ng/mL 0.00-0.03 Troponin I (TnI) levels [...] acidosis, acute neurological disease, and persistent tachyarrhythmia.POCT-GLUCOSE [id number] 12:25:00 Test Item Value Reference Range Comments POC-GLUCOSE METER (BEAKER) 95 mg/dL 70-110 TESTED AT [address] (test evvq=2905) [place] [address] POCT-GLUCOSE [id number] 11:56:00 Test Item Value Reference Range Comments POC-GLUCOSE METER (BEAKER) 65 mg/dL 70-110 Notified MILA IGLESIAS/TESTED AT [facility] (test lccw=2356) [address] [place], [place] [id number] BASIC METABOLIC [id number] 06:05:00 Test Item Value Reference Range Comments SODIUM (BEAKER) (test 133 meq/L 136-145 ontw=171) POTASSIUM (BEAKER) (test 4.5 meq/L 3.5-5.1 wkdi=490) CHLORIDE (BEAKER) (test 98 meq/L 98-107 pbwy=167) CO2 (BEAKER) (test 27 meq/L 22-29 dyvt=188) BLOOD UREA NITROGEN 48 mg/dL 7-21 (BEAKER) (test vwlj=665) CREATININE (BEAKER) (test 10.70 mg/dL 0.57-1.25 dsgr=722) GLUCOSE RANDOM (BEAKER) 77 mg/dL 70-105 (test atql=271) CALCIUM (BEAKER) (test 8.7 mg/dL 8.4-10.2 yafi=610) EGFR (BEAKER) (test 5 mL/min/1.73 sq m ESTIMATED GFR IS NOT saun=6301) ACCURATE CREATININE CLEARANCE IN PREDICTING GLOMERULAR FILTRATION RATE. ESTIMATED GFR IS NOT APPLICABLE FOR DIALYSIS PATIENTS. TROPONIN [id number] 06:04:00 Test Item Value Reference Range Comments TROPONIN I (BEAKER) (test mufp=165) 0.23 ng/mL 0.00-0.03 Troponin I (TnI) levels [...] failure, acidosis, acute neurological disease, and persistent tachyarrhythmia.[id number] 06:03:00 Test Item Value Reference Range Comments MAGNESIUM (BEAKER) (test oixh=128) 1.9 mg/dL 1.6-2.6 CBC W/PLT COUNT & AUTO [id number] 05:59:00 Test Item Value Reference Range Comments WHITE BLOOD CELL COUNT (BEAKER) (test idzo=821) 7.9 K/ L 3.5-10.5 RED BLOOD CELL COUNT (BEAKER) (test okob=526) 3.72 M/ L 3.93-5.22 HEMOGLOBIN (BEAKER) (test teme=810) 10.5 GM/DL 11.2-15.7 HEMATOCRIT (BEAKER) (test dboz=910) 33.7 % 34.1-44.9 MEAN CORPUSCULAR VOLUME (BEAKER) (test uajv=162) 90.6 fL 79.4-94.8 MEAN CORPUSCULAR HEMOGLOBIN (BEAKER) (test 28.2 pg 25.6-32.2 cnya=939) MEAN CORPUSCULAR HEMOGLOBIN CONC (BEAKER) (test 31.2 GM/DL 32.2-35.5 rrbs=145) RED CELL DISTRIBUTION WIDTH (BEAKER) (test 14.4 % 11.7-14.4 jycv=690) PLATELET COUNT (BEAKER) (test gkex=726) 160 K/CU MM 150-450 MEAN PLATELET VOLUME (BEAKER) (test ouff=600) 10.3 fL 9.4-12.3 NUCLEATED RED BLOOD CELLS (BEAKER) (test 0 /100 WBC 0-0 iorc=768) NEUTROPHILS RELATIVE PERCENT (BEAKER) (test 80 % ddcq=702) LYMPHOCYTES RELATIVE PERCENT (BEAKER) (test 8 % rzke=035) MONOCYTES RELATIVE PERCENT (BEAKER) (test 9 % ztrv=190) EOSINOPHILS RELATIVE PERCENT (BEAKER) (test 2 % oopi=445) BASOPHILS RELATIVE PERCENT (BEAKER) (test 1 % gxtl=989) NEUTROPHILS ABSOLUTE COUNT (BEAKER) (test 6.31 K/ L 1.56-6.13 qnhp=609) LYMPHOCYTES ABSOLUTE COUNT (BEAKER) (test 0.62 K/ L 1.18-3.74 pmjq=643) MONOCYTES ABSOLUTE COUNT (BEAKER) (test 0.67 K/ L 0.24-0.36 ydye=957) EOSINOPHILS ABSOLUTE COUNT (BEAKER) (test 0.18 K/ L 0.04-0.36 lqpp=151) BASOPHILS ABSOLUTE COUNT (BEAKER) (test 0.04 K/ L 0.01-0.08 pvgf=335) IMMATURE GRANULOCYTES-RELATIVE PERCENT (BEAKER) 0 % 0-1 (test lmvf=0911) TROPONIN [id number] 01:42:00 Test Item Value Reference Range Comments TROPONIN I (BEAKER) (test bcro=738) 0.23 ng/mL 0.00-0.03 Troponin I (TnI) levels [...] acute neurological disease, and persistent tachyarrhythmia.BASIC METABOLIC [id number] 01:37:00 Test Item Value Reference Range Comments SODIUM (BEAKER) (test 136 meq/L 136-145 emom=402) POTASSIUM (BEAKER) (test 5.6 meq/L 3.5-5.1 iqvq=023) CHLORIDE (BEAKER) (test 100 meq/L 98-107 onkp=138) CO2 (BEAKER) (test 24 meq/L 22-29 uhlb=855) BLOOD UREA NITROGEN 66 mg/dL 7-21 (BEAKER) (test olag=583) CREATININE (BEAKER) (test 15.28 mg/dL 0.57-1.25 kgng=327) GLUCOSE RANDOM (BEAKER) 70 mg/dL 70-105 (test dmcm=391) CALCIUM (BEAKER) (test 8.4 mg/dL 8.4-10.2 srvz=630) EGFR (BEAKER) (test 3 mL/min/1.73 sq m ESTIMATED GFR IS NOT duhs=0649) ACCURATE CREATININE CLEARANCE IN PREDICTING GLOMERULAR FILTRATION RATE. ESTIMATED GFR IS NOT APPLICABLE FOR DIALYSIS PATIENTS. [id number] 01:30:00 Test Item Value Reference Range Comments MAGNESIUM (BEAKER) (test lnfs=911) 1.5 mg/dL 1.6-2.6 POCT-GLUCOSE [id number] 00:03:00 Test Item Value Reference Range Comments POC-GLUCOSE METER (BEAKER) 76 mg/dL 70-110 TESTED AT [facility] [address] [facility] (test ncaw=0789) [facility] [address] POCT-GLUCOSE [id number] 22:26:00 Test Item Value Reference Range Comments POC-GLUCOSE METER (BEAKER) 60 mg/dL 70-110 TESTED AT [facility] [address] [facility] (test uhnf=8785) [facility] [address] TROPONIN [id number] 21:46:00 Test Item Value Reference Range Comments TROPONIN I (BEAKER) (test srdy=756) 0.23 ng/mL 0.00-0.03 Troponin I (TnI) levels [...] acute neurological disease, and persistent tachyarrhythmia.BASIC METABOLIC [id number] 21:38:00 Test Item Value Reference Range Comments SODIUM (BEAKER) (test 135 meq/L 136-145 fthd=538) POTASSIUM (BEAKER) (test 6.0 meq/L 3.5-5.1 awth=951) CHLORIDE (BEAKER) (test 97 meq/L 98-107 bvwj=641) CO2 (BEAKER) (test 26 meq/L 22-29 xyqy=392) BLOOD UREA NITROGEN 78 mg/dL 7-21 (BEAKER) (test fobv=255) CREATININE (BEAKER) (test 17.30 mg/dL 0.57-1.25 fdvu=104) GLUCOSE RANDOM (BEAKER) 66 mg/dL 70-105 (test zyuo=430) CALCIUM (BEAKER) (test 8.5 mg/dL 8.4-10.2 opag=083) EGFR (BEAKER) (test 3 mL/min/1.73 sq m ESTIMATED GFR IS NOT woem=3388) ACCURATE CREATININE CLEARANCE IN PREDICTING GLOMERULAR FILTRATION RATE. ESTIMATED GFR IS NOT APPLICABLE FOR DIALYSIS PATIENTS. [id number] 21:35:00 Test Item Value Reference Range Comments MAGNESIUM (BEAKER) (test rzgw=572) 1.6 mg/dL 1.6-2.6 [id number] 21:34:00 Test Item Value Reference Range Comments PHOSPHORUS (BEAKER) (test dpnc=171) 7.7 mg/dL 2.3-4.7 RAD, CHEST, 1 VIEW, NON [id number] 21:30:00PT started dialysis 2015Reason for exam:->Line placementShould [...] Additional findings: None. Signed: JR Astorga Robert MDReport Verified Date/Time: 01/01/2017 21:30: 48 Reading Location: [place] [address]Y CT Body Reading Room BODY FLUID CELL COUNT WITH [id number] 20:13:00 Test Item Value Reference Range Comments APPEARANCE FLUID (BEAKER) (test ewdt=270) Cloudy Clear COLOR FLUID (BEAKER) (test agin=894) Straw Colorless, Straw RBC FLUID (BEAKER) (test msqg=135) 2071 /cu mm <=1 ADJUSTED WBC FLUID (BEAKER) (test ysyb=3707) 156 /cu mm <=5 LINING CELLS (BEAKER) (test mfhj=7296) 2 /cu mm <=1 NEUTROPHILS FLUID (BEAKER) (test wytk=5728) 3 % LYMPHS FLUID (BEAKER) (test jwqx=743) 42 % MONO/MACROPHAGE FLUID (BEAKER) (test bwwr=151) 55 % EOSINOPHILS FLUID (BEAKER) (test zwqa=398) 0 % BASO FLUID (BEAKER) (test edio=371) 0 % CONTAINER BODY FLUID (BEAKER) (test snjj=1177) EDTA Tube COMPREHENSIVE METABOLIC [id number] 19:19:00 Test Item Value Reference Range Comments TOTAL PROTEIN (BEAKER) 7.3 gm/dL 6.0-8.3 Specimen slightly (test jxpn=647) hemolyzed ALBUMIN (BEAKER) (test 2.4 g/dL 3.5-5.0 Specimen slightly vliw=2597) hemolyzed ALKALINE PHOSPHATASE 74 U/L 40-150 (BEAKER) (test poes=185) BILIRUBIN TOTAL (BEAKER) 0.5 mg/dL 0.2-1.2 Specimen slightly (test qozv=068) hemolyzed SODIUM (BEAKER) (test 135 meq/L 136-145 ykwo=484) POTASSIUM (BEAKER) (test 5.7 meq/L 3.5-5.1 Specimen slightly vsor=120) hemolyzed CHLORIDE (BEAKER) (test 97 meq/L 98-107 ocjh=253) CO2 (BEAKER) (test 26 meq/L 22-29 gydk=335) BLOOD UREA NITROGEN 72 mg/dL 7-21 (BEAKER) (test glgm=555) CREATININE (BEAKER) (test 17.18 mg/dL 0.57-1.25 Specimen slightly aygc=714) hemolyzed GLUCOSE RANDOM (BEAKER) 70 mg/dL 70-105 (test wjeh=435) CALCIUM (BEAKER) (test 8.8 mg/dL 8.4-10.2 ukgg=273) AST (SGOT) (BEAKER) (test 37 U/L 5-34 Specimen slightly stxn=832) hemolyzed ALT (SGPT) (BEAKER) (test 30 U/L 6-55 Specimen slightly nrxb=595) hemolyzed EGFR (BEAKER) (test 3 mL/min/1.73 sq m ESTIMATED GFR IS NOT vzjb=9427) ACCURATE CREATININE CLEARANCE IN PREDICTING GLOMERULAR FILTRATION RATE. ESTIMATED GFR IS NOT APPLICABLE FOR DIALYSIS PATIENTS. RAD, CHEST, 1 VIEW, NON [id number] 18:48:00PT started dialysis 07/12/2015 Reason for exam:->s/p left thoracentesis Should this be performed at the bedside?->YesFINAL REPORT Comparison: 01/01/2017 TECHNIQUE: Single view of the chest FINDINGS: Left pleural effusion has decreased. No pneumothorax bilaterally. Interval placement of a right internal jugular catheter. Tip projects in the mid SVC. No other gross change. Signed: Turner Grier MDReport Verified Date/Time: 01/01/2017 18:48:26 Reading Location: [address] Transitional Reading Room POCT-GLUCOSE [id number] 18:23:00 Test Item Value Reference Range Comments POC-GLUCOSE METER (BEAKER) 79 mg/dL 70-110 TESTED AT [address] (test qziv=1836) [place] [address] [id number] 18:09:00 Test Item Value Reference Range Comments AMMONIA (BEAKER) (test 9 mol/L 18-72 Specimen markedly hemolyzed lhdw=937) [id number] 18:08:00 Test Item Value Reference Range Comments MAGNESIUM (BEAKER) (test 2.8 mg/dL 1.6-2.6 Specimen markedly hemolyzed olmp=693) [id number] 18:08:00 Test Item Value Reference Range Comments PHOSPHORUS (BEAKER) (test 8.1 mg/dL 2.3-4.7 Specimen markedly hemolyzed dygy=284) POCT-GLUCOSE [id number] 18:07:00 Test Item Value Reference Range Comments POC-GLUCOSE METER (BEAKER) 81 mg/dL 70-110 TESTED AT [address] (test gsen=6541) [place] [address] LACTIC ACID, ARTERIAL, WHOLE [id number] 17:14:00 Test Item Value Reference Range Comments LACTATE BLOOD ARTERIAL (2) 0.9 mmol/L 0.5-2.2 Specimen slightly hemolyzed (BEAKER) (test capj=8960) Effective 07/15/2015: Units/Reference Range ChangeNew: 0.5-2.2 mmol/L Previous: 5 -20 mg/[id number] 17:12:00 Test Item Value Reference Range Comments PROCALCITONIN (BEAKER) (test pcpy=4422) 0.72 ng/mL <0.05 SEPSIS RISK (ng/mL)Low: 0.05-0.50Intermediate: 0.51-2.00High: & gt;=2.01TROPONIN [id number] 16:56:00 Test Item Value Reference Range Comments TROPONIN I (BEAKER) (test avbd=263) 0.25 ng/mL 0.00-0.03 Troponin I (TnI) levels [...] and persistent tachyarrhythmia.CREATINE KINASE (CK), TOTAL AND [id number] 16:52:00 Test Item Value Reference Range Comments CREATINE KINASE TOTAL (BEAKER) (test pmza=297) 662 U/L 29-200 CREATINE KINASE-MB (BEAKER) (test tlnn=202) 17.6 ng/mL 0.0-6.6 CREATINE KINASE-MB INDEX (BEAKER) (test mvkb=892) 2.7 % CK-MB Reference Range:<6.7 Normal6.7-10.0 Borderline>10.0 AbnormalB-TYPE NATRIURETIC FACTOR (BNP)2017-01-01 16:52:00 Test Item Value Reference Range Comments B-TYPE NATRIURETIC PEPTIDE (BEAKER) (test 2749 pg/mL 0-100 yehq=676) BLOOD GAS, [id number] 16:50:00 Test Item Value Reference Range Comments PH ARTERIAL (BEAKER) (test ujtw=924) 7.40 7.35-7.45 PCO2 ARTERIAL (BEAKER) (test lkxc=882) 48 mmHg 35-45 PO2 ARTERIAL (BEAKER) (test zrlh=065) 80 mmHg 80-90 O2 SATURATION ARTERIAL (BEAKER) (test yham=023) 96.0 % 96.0-97.0 HCO3 ARTERIAL (BEAKER) (test tcbq=188) 29 mmol/L 21-29 BASE EXCESS ARTERIAL (BEAKER) (test ucpn=166) 3.6 mmol/L -2.0-3.0 PATIENT TEMPERATURE (BEAKER) (test ebre=7541) 36.5 C FIO2 (BEAKER) (test bhtg=6090) 21.0 % [id number] 16:46:00 Test Item Value Reference Range Comments PHOSPHORUS (BEAKER) (test 7.9 mg/dL 2.3-4.7 Specimen markedly hemolyzed stqg=413) [id number] 16:46:00 Test Item Value Reference Range Comments LIPASE (BEAKER) (test vziq=445) 38 U/L 8-78 CALCIUM, [id number] 16:46:00 Test Item Value Reference Range Comments CALCIUM IONIZED (BEAKER) (test wdsj=712) 1.00 mmol/L 1.12-1.27 PH, BLOOD (BEAKER) (test pgjo=0724) 7.36 PROTHROMBIN [id number] 16:43:00 Test Item Value Reference Range Comments PROTIME (BEAKER) (test cbbx=711) 16.2 seconds 11.7-14.7 INR (BEAKER) (test kdra=259) 1.3 <=5.9 RECOMMENDED COUMADIN/WARFARIN INR THERAPY RANGESSTANDARD DOSE: 2.0 - 3.0 Includes: PROPHYLAXIS forvenous thrombosis, systemic embolization; TREATMENT for venous thrombosis and/or pulmonary embolus.HIGH RISK: Target INR is 2.5-3.5 for patients with mechanical heart valves.CBC W/PLT COUNT & AUTO [id number] 16:30:00 Test Item Value Reference Range Comments WHITE BLOOD CELL COUNT (BEAKER) (test oxfr=258) 6.9 K/ L 3.5-10.5 RED BLOOD CELL COUNT (BEAKER) (test hpgu=811) 3.41 M/ L 3.93-5.22 HEMOGLOBIN (BEAKER) (test vcyd=307) 9.9 GM/DL 11.2-15.7 HEMATOCRIT (BEAKER) (test hynl=310) 30.7 % 34.1-44.9 MEAN CORPUSCULAR VOLUME (BEAKER) (test foyz=280) 90.0 fL 79.4-94.8 MEAN CORPUSCULAR HEMOGLOBIN (BEAKER) (test 29.0 pg 25.6-32.2 cqgu=567) MEAN CORPUSCULAR HEMOGLOBIN CONC (BEAKER) (test 32.2 GM/DL 32.2-35.5 yazf=009) RED CELL DISTRIBUTION WIDTH (BEAKER) (test 14.6 % 11.7-14.4 apuo=982) PLATELET COUNT (BEAKER) (test ofuj=619) 235 K/CU MM 150-450 MEAN PLATELET VOLUME (BEAKER) (test gkec=718) 11.2 fL 9.4-12.3 NUCLEATED RED BLOOD CELLS (BEAKER) (test 0 /100 WBC 0-0 wges=990) NEUTROPHILS RELATIVE PERCENT (BEAKER) (test 76 % cbos=342) LYMPHOCYTES RELATIVE PERCENT (BEAKER) (test 12 % npvn=790) MONOCYTES RELATIVE PERCENT (BEAKER) (test 10 % xuee=891) EOSINOPHILS RELATIVE PERCENT (BEAKER) (test 1 % knmz=518) BASOPHILS RELATIVE PERCENT (BEAKER) (test 0 % bvqb=918) NEUTROPHILS ABSOLUTE COUNT (BEAKER) (test 5.23 K/ L 1.56-6.13 agtv=170) LYMPHOCYTES ABSOLUTE COUNT (BEAKER) (test 0.86 K/ L 1.18-3.74 efzp=716) MONOCYTES ABSOLUTE COUNT (BEAKER) (test 0.68 K/ L 0.24-0.36 uszs=038) EOSINOPHILS ABSOLUTE COUNT (BEAKER) (test 0.10 K/ L 0.04-0.36 vvrv=951) BASOPHILS ABSOLUTE COUNT (BEAKER) (test 0.02 K/ L 0.01-0.08 kkoa=681) IMMATURE GRANULOCYTES-RELATIVE PERCENT (BEAKER) 0 % 0-1 (test igif=9313) RAD, CHEST, 1 VIEW, NON [id number] 15:22:00PT started dialysis 2015Post-intubationReason for exam:->sobShould [facility]?->YesFINAL REPORT Comparison: 06/07/2016 TECHNIQUE: Single view of the chest FINDINGS: There is a moderate to large left pleural effusion and moderate right pleural effusion with nonspecific adjacent airspace disease. Cardiac silhouette is obscured. No gross pneumothorax. No acute skeletal abnormality. Signed: Turner Griereport Verified Date/Time: 15:22:20 Reading Location: [address] Transitional Reading Room BODY FLUID CULTURE + GRAM [id number] 11:17:00 Test Item Value Reference Range Comments CULTURE (BEAKER) (test nbhg=1515) No growth GRAM STAIN RESULT (BEAKER) (test <1+ WBCs rolw=4863) GRAM STAIN RESULT (BEAKER) (test No organisms seen kope=46030) [id number] 15:47:00Medical Cytology Report Case: [id number] Authorizing Provider: Verena Carrero MD Collected: 12/12/2016 1540 Ordering Location: [facility] Laboratory Received: 12/13/2016 1002 Pathologist: Gokul Hood MD Specimen: Pleural, Right RIGHT PLEURAL FLUID (CYTOSPINS): - NEGATIVE FOR MALIGNANT CELLS Signing Pathologist Direct Phone Line: [phone] signed by Gokul Hood MD on 12/13/2016 at 3:47 PMReactive mesothelialcells are noted.81870Mgdga pleural effusion; CHFRIGHT PLEURAL FLUID4 cytospins prepared from 200 ml yellow fluidCollected: [id number]: [id number] [facility], Departmentof Pathology, [address] [place] [address], [facility], [facility], [address] [place] [address] , IECPFLTI GRAVITY, BODY [id number] 15:33:00 Test Item Value Reference Range Comments SP GRAVITY MISCELLANEOUS (BEAKER) (test okoa=328) 1.019 Reference Range: No NormalsBODY FLUID [id number] 11:49:00 Test Item Value Reference Range Comments CRYSTALS, BODY FLUID (BEAKER) No crystals seen. (test dbsh=4492) [id number]-076 (BEAKER) Anne Yen MD (electronic (test zdyn=3953) signature) PH, BODY [id number] 00:24:00 Test Item Value Reference Range Comments PH, BODY FLUID (BEAKER) (test lpqg=9947) 7.90 BODY FLUID CELL COUNT WITH [id number] 19:53:00 Test Item Value Reference Range Comments APPEARANCE FLUID (BEAKER) (test suhe=012) Clear Clear COLOR FLUID (BEAKER) (test jlky=874) Straw Colorless, Straw RBC FLUID (BEAKER) (test zrba=361) 1 /cu mm <=1 ADJUSTED WBC FLUID (BEAKER) (test yqqt=9352) 21 /cu mm <=5 LINING CELLS (BEAKER) (test rxhg=2599) 0 /cu mm <=1 NEUTROPHILS FLUID (BEAKER) (test lyac=6352) 0 % LYMPHS FLUID (BEAKER) (test lyul=259) 8 % MONO/MACROPHAGE FLUID (BEAKER) (test vmlx=835) 92 % EOSINOPHILS FLUID (BEAKER) (test fkck=952) 0 % BASO FLUID (BEAKER) (test tbyt=092) 0 % CONTAINER BODY FLUID (BEAKER) (test dlgu=6209) EDTA Tube ALBUMIN, BODY [id number] 19:31:00 Test Item Value Reference Range Comments ALBUMIN FLUID (BEAKER) (test tzwv=966) 0.9 gm/dL Reference Range: No Normals Assay performance has not been validated for this type of specimen.RIGHT THORACENTESIS, PLEURAL FLUIDRIGHT THORACENTESIS, PLEURAL FLUIDRIGHT THORACENTESIS, PLEURAL FLUIDRIGHT THORACENTESIS, PLEURAL FLUIDRIGHT THORACENTESIS, PLEURAL FLUIDRIGHT THORACENTESIS, PLEURAL FLUIDCREATININE, BODY [id number] 19:31:00 Test Item Value Reference Range Comments CREATININE FLUID (BEAKER) (test shua=468) 15.62 mg/dL Reference Range: No Normals Assay performance has not been validated for this type of specimen.RIGHT THORACENTESIS, PLEURAL FLUIDRIGHT THORACENTESIS, PLEURAL FLUIDRIGHT THORACENTESIS, PLEURAL FLUIDRIGHT THORACENTESIS, PLEURAL FLUIDRIGHT THORACENTESIS, PLEURAL FLUIDRIGHT THORACENTESIS, PLEURAL FLUIDAMYLASE, BODY [id number] 19:27:00 Test Item Value Reference Range Comments AMYLASE FLUID (BEAKER) (test pdxi=481) 39 U/L Absence of reference range indicates that normals have not been defined.Assay performance has not been validated for this type of specimen.RIGHT THORACENTESIS , PLEURAL FLUIDRIGHT THORACENTESIS, PLEURALFLUIDRIGHT THORACENTESIS, PLEURAL FLUIDRIGHT THORACENTESIS, PLEURAL FLUIDRIGHT THORACENTESIS, PLEURAL FLUIDRIGHT THORACENTESIS, PLEURAL FLUIDLACTATE DEHYDROGENASE (LDH), BODY [id number] 19 :27:00 Test Item Value Reference Range Comments LACTATE DEHYDROGENASE FLUID (BEAKER) (test ogdi=445) 113 U/L Absence of reference range indicates that normals have not been defined.Assay performance has not been validated for this type of specimen.RIGHT THORACENTESIS , PLEURAL FLUIDRIGHT THORACENTESIS, PLEURALFLUIDRIGHT THORACENTESIS, PLEURAL FLUIDRIGHT THORACENTESIS, PLEURAL FLUIDRIGHT THORACENTESIS, PLEURAL FLUIDRIGHT THORACENTESIS, PLEURAL FLUIDPROTEIN, BODY [id number] 19:27:00 Test Item Value Reference Range Comments PROTEIN FLUID (BEAKER) (test cpry=906) 2.1 g/dL Absence of reference range indicates that normals have not been defined.Assay performance has not been validated for this type of specimen.RIGHT THORACENTESIS , PLEURAL FLUIDRIGHT THORACENTESIS, PLEURALFLUIDRIGHT THORACENTESIS, PLEURAL FLUIDRIGHT THORACENTESIS, PLEURAL FLUIDRIGHT THORACENTESIS, PLEURAL FLUIDRIGHT THORACENTESIS, PLEURAL FLUIDGLUCOSE, BODY [id number] 19:27:00 Test Item Value Reference Range Comments GLUCOSE, BODY FLUID (BEAKER) (test xsrm=0273) 172 mg/dL Absence of reference range indicates that normals have not been defined.Assay performance has not been validated for this type of specimen.RIGHT THORACENTESIS , PLEURAL FLUIDRIGHT THORACENTESIS, PLEURALFLUIDRIGHT THORACENTESIS, PLEURAL FLUIDRIGHT THORACENTESIS, PLEURAL FLUIDRIGHT THORACENTESIS, PLEURAL FLUIDRIGHT THORACENTESIS, PLEURAL FLUIDAFB CULTURE + [id number] 18:17:00 Test Item Value Reference Range Comments CULTURE (BEAKER) (test No acid-fast bacilli isolated sotb=6061) in 42 days AFB SMEAR (BEAKER) (test No acid fast bacilli seen bsww=541) FUNGUS CULTURE + [id number] 19:24:00 Test Item Value Reference Range Comments CULTURE (BEAKER) (test No fungus isolated in 28 days mzgf=5370) FUNGUS SMEAR (BEAKER) (test No fungi seen mawr=5316) BLOOD [id number] 08:20:00 Test Item Value Reference Range Comments CULTURE (BEAKER) (test iouj=9570) No growth in 5 days BLOOD [id number] 08:13:00 Test Item Value Reference Range Comments CULTURE (BEAKER) (test rfjp=4918) No growth in 5 days POCT-GLUCOSE [id number] 08:25:00 Test Item Value Reference Range Comments POC-GLUCOSE METER (BEAKER) 244 mg/dL 70-110 TESTED AT [facility] [address] [facility] (test rarj=8926) [facility] [address] BASIC METABOLIC [id number] 05:31:00 Test Item Value Reference Range Comments SODIUM (BEAKER) (test 134 meq/L 136-145 mefw=226) POTASSIUM (BEAKER) (test 4.1 meq/L 3.5-5.1 lnjh=344) CHLORIDE (BEAKER) (test 96 meq/L 98-107 devt=766) CO2 (BEAKER) (test 23 meq/L 22-29 ynue=917) BLOOD UREA NITROGEN 58 mg/dL 7-21 (BEAKER) (test ynjh=321) CREATININE (BEAKER) (test 16.21 mg/dL 0.57-1.25 vlxa=983) GLUCOSE RANDOM (BEAKER) 224 mg/dL 70-105 (test wnsj=167) CALCIUM (BEAKER) (test 8.7 mg/dL 8.4-10.2 nxtf=861) EGFR (BEAKER) (test 3 mL/min/1.73 sq m ESTIMATED GFR IS NOT awdy=6284) ACCURATE CREATININE CLEARANCE IN PREDICTING GLOMERULAR FILTRATION RATE. ESTIMATED GFR IS NOT APPLICABLE FOR DIALYSIS PATIENTS. [id number] 05:27:00 Test Item Value Reference Range Comments MAGNESIUM (BEAKER) (test tzwc=960) 2.2 mg/dL 1.6-2.6 CBC (HEMOGRAM ONLY)2016-06-09 05:22:00 Test Item Value Reference Range Comments WHITE BLOOD CELL COUNT (BEAKER) (test nsyo=850) 5.7 K/ L 4.0-10.0 RED BLOOD CELL COUNT (BEAKER) (test dkmt=043) 3.51 M/ L 4.00-5.00 HEMOGLOBIN (BEAKER) (test eusv=201) 9.9 GM/DL 12.0-15.0 HEMATOCRIT (BEAKER) (test oejc=389) 30.6 % 36.0-45.0 MEAN CORPUSCULAR VOLUME (BEAKER) (test gmxx=885) 87.2 fL 82.0-99.0 MEAN CORPUSCULAR HEMOGLOBIN (BEAKER) (test 28.2 pg 27.0-33.0 vnda=687) MEAN CORPUSCULAR HEMOGLOBIN CONC (BEAKER) (test 32.4 GM/DL 32.0-36.0 owwd=754) RED CELL DISTRIBUTION WIDTH (BEAKER) (test 18.2 % 10.3-14.2 ciuf=735) PLATELET COUNT (BEAKER) (test gtrr=749) 214 K/CU MM 150-430 MEAN PLATELET VOLUME (BEAKER) (test qiat=732) 10.0 fL 6.5-10.5 NUCLEATED RED BLOOD CELLS (BEAKER) (test 0 /100 WBC 0-0 fieq=823) 0.00POCT-GLUCOSE [id number] 00:54:00 Test Item Value Reference Range Comments POC-GLUCOSE METER (BEAKER) 124 mg/dL 70-110 TESTED AT [address] (test tzvo=9912) [place] [address] POCT-GLUCOSE [id number] 17:10:00 Test Item Value Reference Range Comments POC-GLUCOSE METER (BEAKER) 146 mg/dL 70-110 TESTED AT [address] (test twfx=6584) [place] [address] BODY FLUID CULTURE + GRAM [id number] 15:37:00 Test Item Value Reference Range Comments CULTURE (BEAKER) (test dcpm=8494) No growth GRAM STAIN RESULT (BEAKER) (test No WBCs umvw=5653) GRAM STAIN RESULT (BEAKER) (test No organisms seen bwlz=09460) PERITONEAL DIALYSIS EFFLUENT [id number] 15:25:00 Test Item Value Reference Range Comments CULTURE (BEAKER) (test pxdm=4327) No growth POCT-GLUCOSE [id number] 12:03:00 Test Item Value Reference Range Comments POC-GLUCOSE METER (BEAKER) 170 mg/dL 70-110 TESTED AT [address] (test zsbf=2787) [place] [address] HEPATITIS C PCR, [id number] 09:44:00 Test Item Value Reference Range Comments HCV NUMERIC RESULT (BEAKER) (test mhnv=1934) 216446 IU/mL <15 This test uses a Real-Time Polymerase Chain Reaction (RT-PCR) methodology and was performed using SHELLY Ampliprep/SHELLY TaqMan HCV test kit version 2.0 ( [employer]).Reportable range for this assay is 15 - 100,000, 000 IU per mL (1.18 - 8.00 Log IU/mL).POCT-GLUCOSE [id number] 08:07:00 Test Item Value Reference Range Comments POC-GLUCOSE METER (BEAKER) 183 mg/dL 70-110 TESTED AT [facility] [address] [facility] (test ppef=1625) [facility] [address] CBC (HEMOGRAM ONLY)2016-06-08 06:53:00 Test Item Value Reference Range Comments WHITE BLOOD CELL COUNT (BEAKER) (test cgln=031) 6.2 K/ L 4.0-10.0 RED BLOOD CELL COUNT (BEAKER) (test yprm=211) 3.22 M/ L 4.00-5.00 HEMOGLOBIN (BEAKER) (test mlnz=950) 9.5 GM/DL 12.0-15.0 HEMATOCRIT (BEAKER) (test laov=545) 28.1 % 36.0-45.0 MEAN CORPUSCULAR VOLUME (BEAKER) (test vqsu=476) 87.5 fL 82.0-99.0 MEAN CORPUSCULAR HEMOGLOBIN (BEAKER) (test 29.5 pg 27.0-33.0 yxav=075) MEAN CORPUSCULAR HEMOGLOBIN CONC (BEAKER) (test 33.7 GM/DL 32.0-36.0 vhqf=558) RED CELL DISTRIBUTION WIDTH (BEAKER) (test 18.3 % 10.3-14.2 uszr=198) PLATELET COUNT (BEAKER) (test anjw=537) 188 K/CU MM 150-430 MEAN PLATELET VOLUME (BEAKER) (test gjjp=031) 9.2 fL 6.5-10.5 NUCLEATED RED BLOOD CELLS (BEAKER) (test 0 /100 WBC 0-0 qtlk=125) 0.00BASIC METABOLIC [id number] 05:44:00 Test Item Value Reference Range Comments SODIUM (BEAKER) (test 134 meq/L 136-145 nloa=975) POTASSIUM (BEAKER) (test 4.1 meq/L 3.5-5.1 jpwd=172) CHLORIDE (BEAKER) (test 96 meq/L 98-107 gvab=989) CO2 (BEAKER) (test 23 meq/L 22-29 afyq=402) BLOOD UREA NITROGEN 61 mg/dL 7-21 (BEAKER) (test rzde=649) CREATININE (BEAKER) (test 16.52 mg/dL 0.57-1.25 mhvx=809) GLUCOSE RANDOM (BEAKER) 229 mg/dL 70-105 (test xnzb=754) CALCIUM (BEAKER) (test 8.4 mg/dL 8.4-10.2 cqqj=716) EGFR (BEAKER) (test 3 mL/min/1.73 sq m ESTIMATED GFR IS NOT xnud=2048) ACCURATE CREATININE CLEARANCE IN PREDICTING GLOMERULAR FILTRATION RATE. ESTIMATED GFR IS NOT APPLICABLE FOR DIALYSIS PATIENTS. [id number] 05:41:00 Test Item Value Reference Range Comments MAGNESIUM (BEAKER) (test sncq=371) 2.3 mg/dL 1.6-2.6 POCT-GLUCOSE [id number] 20:59:00 Test Item Value Reference Range Comments POC-GLUCOSE METER (BEAKER) 105 mg/dL 70-110 TESTED AT [address] (test ntwm=4866) [place] [address] POCT-GLUCOSE [id number] 17:58:00 Test Item Value Reference Range Comments POC-GLUCOSE METER (BEAKER) 129 mg/dL 70-110 TESTED AT [address] (test ollp=6825) [place] [address] POCT-GLUCOSE [id number] 17:58:00 Test Item Value Reference Range Comments POC-GLUCOSE METER (BEAKER) 138 mg/dL 70-110 TESTED AT [address] (test uzgj=2858) [place] [address] ANTI-NUCLEAR ANTIBODY (MILTON)2016-06-07 14:51:00 Test Item Value Reference Range Comments ANTI-NUCLEAR ANTIBODY ([place]) (BEAKER) (test Negative Negative qkad=050) [id number] 09:26:00 Test Item Value Reference Range Comments PHOSPHORUS (BEAKER) (test ulkv=820) 7.8 mg/dL 2.3-4.7 POCT-GLUCOSE [id number] 08:18:00 Test Item Value Reference Range Comments POC-GLUCOSE METER (BEAKER) 140 mg/dL 70-110 TESTED AT [facility] [address] (test ondy=1573) [facility] [address] CBC (HEMOGRAM ONLY)2016-06-07 07:53:00 Test Item Value Reference Range Comments WHITE BLOOD CELL COUNT (BEAKER) (test gkvn=799) 5.1 K/ L 4.0-10.0 RED BLOOD CELL COUNT (BEAKER) (test jppz=558) 3.19 M/ L 4.00-5.00 HEMOGLOBIN (BEAKER) (test jcnv=295) 9.2 GM/DL 12.0-15.0 HEMATOCRIT (BEAKER) (test xrtf=286) 28.0 % 36.0-45.0 MEAN CORPUSCULAR VOLUME (BEAKER) (test vgqh=403) 87.6 fL 82.0-99.0 MEAN CORPUSCULAR HEMOGLOBIN (BEAKER) (test 28.9 pg 27.0-33.0 roxv=788) MEAN CORPUSCULAR HEMOGLOBIN CONC (BEAKER) (test 32.9 GM/DL 32.0-36.0 eyww=600) RED CELL DISTRIBUTION WIDTH (BEAKER) (test 18.1 % 10.3-14.2 efzp=797) PLATELET COUNT (BEAKER) (test lbnw=366) 188 K/CU MM 150-430 MEAN PLATELET VOLUME (BEAKER) (test gmom=115) 9.2 fL 6.5-10.5 NUCLEATED RED BLOOD CELLS (BEAKER) (test 0 /100 WBC 0-0 uivf=971) 0.00BASI METABOLIC [id number] 07:30:00 Test Item Value Reference Range Comments SODIUM (BEAKER) (test 136 meq/L 136-145 gnjv=757) POTASSIUM (BEAKER) (test 4.2 meq/L 3.5-5.1 tbbo=263) CHLORIDE (BEAKER) (test 98 meq/L 98-107 hovy=801) CO2 (BEAKER) (test 23 meq/L 22-29 cdxa=145) BLOOD UREA NITROGEN 59 mg/dL 7-21 (BEAKER) (test mjvi=418) CREATININE (BEAKER) (test 16.05 mg/dL 0.57-1.25 zsui=211) GLUCOSE RANDOM (BEAKER) 165 mg/dL 70-105 (test xuqx=465) CALCIUM (BEAKER) (test 8.0 mg/dL 8.4-10.2 waiu=136) EGFR (BEAKER) (test 3 mL/min/1.73 sq m ESTIMATED GFR IS NOT vftf=0978) ACCURATE CREATININE CLEARANCE IN PREDICTING GLOMERULAR FILTRATION RATE. ESTIMATED GFR IS NOT APPLICABLE FOR DIALYSIS PATIENTS. [id number] 07:29:00 Test Item Value Reference Range Comments MAGNESIUM (BEAKER) (test lqin=386) 1.7 mg/dL 1.6-2.6 VANCOMYCIN LEVEL, [id number] 07:28:00 Test Item Value Reference Range Comments VANCOMYCIN RANDOM (BEAKER) (test zbbj=792) 18.5 ug/mL Reference Range: No NormalsPOCT-GLUCOSE [id number] 21:54:00 Test Item Value Reference Range Comments POC-GLUCOSE METER ([facility] 112 mg/dL 70-110 TESTED AT [address] (test kuar=0320) [place] [address] [id number] 19:10:00 Test Item Value Reference Range Comments ACTIVATED CLOTTING TIME 337 sec TESTED AT [address] ([facility] (test kbcg=461) [place] [address] [id number] 16:26:00 Test Item Value Reference Range Comments PARTIAL THROMBOPLASTIN TIME (BEAKER) (test 83.0 seconds 22.5-36.0 zgwz=636) HEPATIC FUNCTION [id number] 14:54:00 Test Item Value Reference Range Comments TOTAL PROTEIN (BEAKER) (test rtnn=676) 6.6 gm/dL 6.0-8.3 ALBUMIN (BEAKER) (test qjce=8256) 2.4 g/dL 3.5-5.0 BILIRUBIN TOTAL (BEAKER) (test gkrd=567) 0.2 mg/dL 0.2-1.2 BILIRUBIN DIRECT (BEAKER) (test eomd=647) 0.1 mg/dL 0.1-0.5 ALKALINE PHOSPHATASE (BEAKER) (test bcbk=564) 100 U/L 40-150 AST (SGOT) (BEAKER) (test vpax=821) 18 U/L 5-34 ALT (SGPT) (BEAKER) (test rjbm=967) 18 U/L 6-55 [id number] 13:30:00 Test Item Value Reference Range Comments FERRITIN (BEAKER) (test ywny=435) 343 ng/mL 5-275 Effective 01/28/2014: Reference Range ChangeNew: Male 5-275 Previous: Male 22-322 Female 5-275 Female 94-051JDMO-YKOZNNX [id number] 13:01:00 Test Item Value Reference Range Comments POC-GLUCOSE METER (BEAKER) 121 mg/dL 70-110 TESTED AT [facility] [address] [facility] (test yiqs=7870) [facility] [address] HEPATITIS C [id number] 11:01:00 Test Item Value Reference Range Comments HEPATITIS C ANTIBODY (BEAKER) (test yuoj=110) Reactive Nonreactive HEPATITIS B SURFACE [id number] 10:32:00 Test Item Value Reference Range Comments HEPATITIS B SURFACE ANTIGEN (2) (BEAKER) (test Nonreactive Nonreactive bedh=1162) HEPATITIS B SURFACE [id number] 10:32:00 Test Item Value Reference Range Comments HEPATITIS B SURFACE ANTIBODY (BEAKER) (test 71.3 mIU/mL <8.0 qwuq=570) HEPATITIS A ANTIBODY, [id number] 10:32:00 Test Item Value Reference Range Comments HEPATITIS A IGM ANTIBODY (BEAKER) (test Nonreactive Nonreactive qhnl=947) HEPATITIS B CORE ANTIBODY, [id number] 10:32:00 Test Item Value Reference Range Comments HEPATITIS B CORE TOTAL ANTIBODY (BEAKER) (test Nonreactive Nonreactive qmzm=822) LACTATE DEHYDROGENASE (LDH), BODY [id number] 10:24:00 Test Item Value Reference Range Comments LACTATE DEHYDROGENASE FLUID (BEAKER) < U/L Light's criteria identifies (test mnig=386) effusions if one or more are pre Absence of reference range indicates that normals have not been defined.Assay performance has not been validated for this type of specimen.[id number] 10:19:00 Test Item Value Reference Range Comments TRANSFERRIN (BEAKER) (test zlen=582) 165 mg/dL 174-382 IRON, TIBC, % SAT. (WITHOUT FERRITIN)2016-06-06 10:19:00 Test Item Value Reference Range Comments IRON (BEAKER) (test arin=397) 41 ug/dL 40-160 TOTAL IRON BINDING CAPACITY (BEAKER) (test 206 ug/dL 250-450 cods=513) IRON % SATURATION (2) (BEAKER) (test niyw=3446) 20 % 20-55 PROTEIN, [id number] 09:36:00 Test Item Value Reference Range Comments TOTAL PROTEIN (BEAKER) (test qhnf=303) 6.5 gm/dL 6.0-8.3 LACTATE DEHYDROGENASE (LDH)2016-06-06 09:36:00 Test Item Value Reference Range Comments LACTATE DEHYDROGENASE (BEAKER) (test ldku=622) 248 U/L 125-220 [id number] 09:32:00 Test Item Value Reference Range Comments PARTIAL THROMBOPLASTIN TIME (BEAKER) (test 72.0 seconds 22.5-36.0 udtb=016) Prior to initiating heparinPROTHROMBIN TIME/[id number] 09:30:00 Test Item Value Reference Range Comments PROTIME (BEAKER) (test bnrs=344) 15.2 seconds 11.7-14.7 INR (BEAKER) (test isqt=234) 1.2 <=5.9 RECOMMENDED COUMADIN/WARFARIN INR THERAPY RANGESSTANDARD DOSE: 2.0 - 3.0 Includes: PROPHYLAXIS forvenous thrombosis, systemic embolization; TREATMENT for venous thrombosis and/or pulmonary embolus.HIGH RISK: Target INR is 2.5-3.5 for patients with mechanical heart valves.Prior to initiating heparinCBC ( HEMOGRAM ONLY)2016-06-06 09:19:00 Test Item Value Reference Range Comments WHITE BLOOD CELL COUNT (BEAKER) (test gmhd=010) 6.3 K/ L 4.0-10.0 RED BLOOD CELL COUNT (BEAKER) (test ywvt=107) 3.26 M/ L 4.00-5.00 HEMOGLOBIN (BEAKER) (test jbfm=967) 9.3 GM/DL 12.0-15.0 HEMATOCRIT (BEAKER) (test tvyu=053) 28.7 % 36.0-45.0 MEAN CORPUSCULAR VOLUME (BEAKER) (test tpbw=319) 88.2 fL 82.0-99.0 MEAN CORPUSCULAR HEMOGLOBIN (BEAKER) (test 28.4 pg 27.0-33.0 fwke=214) MEAN CORPUSCULAR HEMOGLOBIN CONC (BEAKER) (test 32.2 GM/DL 32.0-36.0 irmf=451) RED CELL DISTRIBUTION WIDTH (BEAKER) (test 19.0 % 10.3-14.2 iqdz=949) PLATELET COUNT (BEAKER) (test snfs=041) 185 K/CU MM 150-430 MEAN PLATELET VOLUME (BEAKER) (test jxki=006) 9.0 fL 6.5-10.5 NUCLEATED RED BLOOD CELLS (BEAKER) (test 0 /100 WBC 0-0 otkh=969) PLATELET [id number] 09:15:00 Test Item Value Reference Range Comments PLATELET COUNT (BEAKER) (test hqnb=599) 185 K/CU MM 150-430 POCT-GLUCOSE [id number] 08:01:00 Test Item Value Reference Range Comments POC-GLUCOSE METER (BEAKER) 119 mg/dL 70-110 TESTED AT [facility] [address] [facility] (test pczv=3146) [facility] [address] [id number] 04:10:00 Test Item Value Reference Range Comments MAGNESIUM (BEAKER) (test tpcm=747) 1.8 mg/dL 1.6-2.6 BASIC METABOLIC [id number] 04:10:00 Test Item Value Reference Range Comments SODIUM (BEAKER) (test 136 meq/L 136-145 oixo=577) POTASSIUM (BEAKER) (test 4.0 meq/L 3.5-5.1 xwmm=562) CHLORIDE (BEAKER) (test 97 meq/L 98-107 prhq=706) CO2 (BEAKER) (test 24 meq/L 22-29 zrvg=060) BLOOD UREA NITROGEN 64 mg/dL 7-21 (BEAKER) (test ixcr=252) CREATININE (BEAKER) (test 16.35 mg/dL 0.57-1.25 ojnm=013) GLUCOSE RANDOM (BEAKER) 124 mg/dL 70-105 (test qhpc=537) CALCIUM (BEAKER) (test 7.7 mg/dL 8.4-10.2 wdqt=414) EGFR (BEAKER) (test 3 mL/min/1.73 sq m ESTIMATED GFR IS NOT tgfn=1277) ACCURATE CREATININE CLEARANCE IN PREDICTING GLOMERULAR FILTRATION RATE. ESTIMATED GFR IS NOT APPLICABLE FOR DIALYSIS PATIENTS. [id number] 04:09:00 Test Item Value Reference Range Comments PARTIAL THROMBOPLASTIN TIME (BEAKER) (test 92.0 seconds 22.5-36.0 ueek=548) CBC (HEMOGRAM ONLY)2016-06-06 03:58:00 Test Item Value Reference Range Comments WHITE BLOOD CELL COUNT (BEAKER) (test amwp=077) 6.1 K/ L 4.0-10.0 RED BLOOD CELL COUNT (BEAKER) (test cisb=435) 3.19 M/ L 4.00-5.00 HEMOGLOBIN (BEAKER) (test lgxl=121) 9.2 GM/DL 12.0-15.0 HEMATOCRIT (BEAKER) (test ofoz=269) 27.9 % 36.0-45.0 MEAN CORPUSCULAR VOLUME (BEAKER) (test tshf=512) 87.4 fL 82.0-99.0 MEAN CORPUSCULAR HEMOGLOBIN (BEAKER) (test 28.9 pg 27.0-33.0 jxdo=269) MEAN CORPUSCULAR HEMOGLOBIN CONC (BEAKER) (test 33.0 GM/DL 32.0-36.0 sjvl=675) RED CELL DISTRIBUTION WIDTH (BEAKER) (test 18.0 % 10.3-14.2 fwtm=628) PLATELET COUNT (BEAKER) (test oojk=712) 185 K/CU MM 150-430 MEAN PLATELET VOLUME (BEAKER) (test rstj=296) 9.1 fL 6.5-10.5 NUCLEATED RED BLOOD CELLS (BEAKER) (test 0 /100 WBC 0-0 qqfz=308) 0.00POCT-GLUCOSE [id number] 00:10:00 Test Item Value Reference Range Comments POC-GLUCOSE METER (BEAKER) 235 mg/dL 70-110 TESTED AT [facility] [address] [facility] (test qqio=6308) [facility] [address] GRAM [id number] 23:45:00 Test Item Value Reference Range Comments GRAM STAIN RESULT (BEAKER) (test <1+ WBCs mklc=1704) GRAM STAIN RESULT (BEAKER) (test No organisms seen psgp=26199) BODY FLUID CELL COUNT WITH [id number] 20:12:00 Test Item Value Reference Range Comments APPEARANCE FLUID (BEAKER) (test immc=300) Clear Clear COLOR FLUID (BEAKER) (test cmvu=557) Straw Colorless, Straw RBC FLUID (BEAKER) (test yihi=677) 200 /cu mm <=1 ADJUSTED WBC FLUID (BEAKER) (test bygn=0239) 20 /cu mm <=5 LINING CELLS (BEAKER) (test nmfp=7324) 0 /cu mm <=1 NEUTROPHILS FLUID (BEAKER) (test qdtv=0720) 9 % LYMPHS FLUID (BEAKER) (test jbro=348) 39 % MONO/MACROPHAGE FLUID (BEAKER) (test dyaq=945) 52 % EOSINOPHILS FLUID (BEAKER) (test oehk=416) 0 % BASO FLUID (BEAKER) (test xdpy=770) 0 % CONTAINER BODY FLUID (BEAKER) (test eods=9346) EDTA Tube BODY FLUID CELL COUNT WITH [id number] 19:33:00 Test Item Value Reference Range Comments APPEARANCE FLUID (BEAKER) (test tqlg=900) Slightly Hazy Clear COLOR FLUID (BEAKER) (test oqdd=244) Straw Colorless, Straw RBC FLUID (BEAKER) (test jdhh=314) 90 /cu mm <=1 ADJUSTED WBC FLUID (BEAKER) (test vnyw=6609) 125 /cu mm <=5 LINING CELLS (BEAKER) (test hlgh=0901) 5 /cu mm <=1 NEUTROPHILS FLUID (BEAKER) (test noey=5422) 2 % LYMPHS FLUID (BEAKER) (test rypq=580) 30 % MONO/MACROPHAGE FLUID (BEAKER) (test 68 % ruwk=258) EOSINOPHILS FLUID (BEAKER) (test wgry=513) 0 % BASO FLUID (BEAKER) (test wrce=034) 0 % CONTAINER BODY FLUID (BEAKER) (test EDTA Tube zegy=4625) PROTEIN, BODY [id number] 19:01:00 Test Item Value Reference Range Comments PROTEIN FLUID (BEAKER) (test 2.4 g/dL Light's criteria identifies tmfn=574) effusions if one or more are pre Absence of reference range indicates that normals have not been defined.Assay performance has not been validated for this type of specimen.GLUCOSE, BODY [id number] 19:01:00 Test Item Value Reference Range Comments GLUCOSE, BODY FLUID (BEAKER) (test xmdk=4955) 193 mg/dL 70-110 Absence of reference range indicates that normals have not been defined.Assay performance has not been validated for this type of specimen.PH, BODY [id number] 18:45:00 Test Item Value Reference Range Comments PH, BODY FLUID (BEAKER) (test nuoh=7955) 7.73 [id number] 18:22:00 Test Item Value Reference Range Comments PARTIAL THROMBOPLASTIN TIME (BEAKER) (test 36.7 seconds 22.5-36.0 bxta=134) PROTHROMBIN [id number] 18:20:00 Test Item Value Reference Range Comments PROTIME (BEAKER) (test hgzw=620) 15.3 seconds 11.7-14.7 INR (BEAKER) (test rove=790) 1.2 <=5.9 RECOMMENDED COUMADIN/WARFARIN INR THERAPY RANGESSTANDARD DOSE: 2.0 - 3.0 Includes: PROPHYLAXIS forvenous thrombosis, systemic embolization; TREATMENT for venous thrombosis and/or pulmonary embolus.HIGH RISK: Target INR is 2.5-3.5 for patients with mechanical heart valves.POCT-GLUCOSE [id number] 18:04:00 Test Item Value Reference Range Comments POC-GLUCOSE METER (BEAKER) 182 mg/dL 70-110 TESTED AT [facility] [address] [facility] (test dzfp=4825) [facility] [address] CREATINE KINASE (CK), TOTAL AND [id number] 16:32:00 Test Item Value Reference Range Comments CREATINE KINASE TOTAL (BEAKER) (test huql=115) 247 U/L 29-200 CREATINE KINASE-MB (BEAKER) (test szbr=406) 8.4 ng/mL 0.0-6.6 CREATINE KINASE-MB INDEX (BEAKER) (test qxsp=333) 3.4 % Effective 01/28/2014: CK-MB Reference Range ChangeNew: 0.0-6.6 Previous: 0.0- 4.9CK-MB Reference Range:<6.7 Normal6.7-10.0 Borderline>10.0 AbnormalTROPONIN [id number] 16:32:00 Test Item Value Reference Range Comments TROPONIN I (BEAKER) (test ihjf=698) 0.06 ng/mL 0.00-0.03 Effective 01/28/2014: Reference Range [...] acute neurological disease, and persistent tachyarrhythmia.BASIC METABOLIC [id number] 16:31:00 Test Item Value Reference Range Comments SODIUM (BEAKER) (test 135 meq/L 136-145 fyfu=719) POTASSIUM (BEAKER) (test 4.7 meq/L 3.5-5.1 wrpz=035) CHLORIDE (BEAKER) (test 95 meq/L 98-107 mikg=192) CO2 (BEAKER) (test 24 meq/L 22-29 oenb=185) BLOOD UREA NITROGEN 72 mg/dL 7-21 (BEAKER) (test ktfm=004) CREATININE (BEAKER) (test 17.37 mg/dL 0.57-1.25 xyee=595) GLUCOSE RANDOM (BEAKER) 179 mg/dL 70-105 (test kpfr=331) CALCIUM (BEAKER) (test 7.7 mg/dL 8.4-10.2 rchd=088) EGFR (BEAKER) (test 3 mL/min/1.73 sq m ESTIMATED GFR IS NOT cjob=7652) ACCURATE CREATININE CLEARANCE IN PREDICTING GLOMERULAR FILTRATION RATE. ESTIMATED GFR IS NOT APPLICABLE FOR DIALYSIS PATIENTS. [id number] 16:26:00 Test Item Value Reference Range Comments PHOSPHORUS (BEAKER) (test zpwq=579) 8.1 mg/dL 2.3-4.7 [id number] 16:26:00 Test Item Value Reference Range Comments MAGNESIUM (BEAKER) (test iouq=232) 1.9 mg/dL 1.6-2.6 HEPATIC FUNCTION [id number] 16:26:00 Test Item Value Reference Range Comments TOTAL PROTEIN (BEAKER) (test azvr=780) 6.6 gm/dL 6.0-8.3 ALBUMIN (BEAKER) (test fzyb=1151) 2.5 g/dL 3.5-5.0 BILIRUBIN TOTAL (BEAKER) (test lrzl=068) 0.2 mg/dL 0.2-1.2 BILIRUBIN DIRECT (BEAKER) (test rwxq=745) 0.1 mg/dL 0.1-0.5 ALKALINE PHOSPHATASE (BEAKER) (test esfg=117) 105 U/L 40-150 AST (SGOT) (BEAKER) (test fguj=907) 18 U/L 5-34 ALT (SGPT) (BEAKER) (test nlht=680) 21 U/L 6-55 CBC W/PLT COUNT & AUTO [id number] 16:07:00 Test Item Value Reference Range Comments WHITE BLOOD CELL COUNT (BEAKER) (test mpzv=694) 5.1 K/ L 4.0-10.0 RED BLOOD CELL COUNT (BEAKER) (test iceu=843) 3.26 M/ L 4.00-5.00 HEMOGLOBIN (BEAKER) (test bkiu=314) 9.3 GM/DL 12.0-15.0 HEMATOCRIT (BEAKER) (test sujj=293) 28.8 % 36.0-45.0 MEAN CORPUSCULAR VOLUME (BEAKER) (test grfz=833) 88.1 fL 82.0-99.0 MEAN CORPUSCULAR HEMOGLOBIN (BEAKER) (test 28.4 pg 27.0-33.0 qjsy=968) MEAN CORPUSCULAR HEMOGLOBIN CONC (BEAKER) (test 32.2 GM/DL 32.0-36.0 ksuw=402) RED CELL DISTRIBUTION WIDTH (BEAKER) (test 19.1 % 10.3-14.2 prag=437) PLATELET COUNT (BEAKER) (test wohp=218) 182 K/CU MM 150-430 MEAN PLATELET VOLUME (BEAKER) (test cymw=758) 8.6 fL 6.5-10.5 NUCLEATED RED BLOOD CELLS (BEAKER) (test 0 /100 WBC 0-0 mbwq=993) NEUTROPHILS RELATIVE PERCENT (BEAKER) (test 64 % lmnv=703) LYMPHOCYTES RELATIVE PERCENT (BEAKER) (test 21 % hvfv=190) MONOCYTES RELATIVE PERCENT (BEAKER) (test 11 % ykxq=165) EOSINOPHILS RELATIVE PERCENT (BEAKER) (test 3 % kfeq=690) BASOPHILS RELATIVE PERCENT (BEAKER) (test 1 % sefm=683) NEUTROPHILS ABSOLUTE COUNT (BEAKER) (test 3.26 K/ L 1.80-8.00 jfas=579) LYMPHOCYTES ABSOLUTE COUNT (BEAKER) (test 1.09 K/ L 1.48-4.50 ehzz=974) MONOCYTES ABSOLUTE COUNT (BEAKER) (test 0.57 K/ L 0.00-1.30 oeri=340) EOSINOPHILS ABSOLUTE COUNT (BEAKER) (test 0.16 K/ L 0.00-0.50 aras=601) BASOPHILS ABSOLUTE COUNT (BEAKER) (test 0.03 K/ L 0.00-0.20 yrqs=899) 0.00LACTIC ACID, VENOUS, WHOLE [id number] 16:06:00 Test Item Value Reference Range Comments LACTATE BLOOD VENOUS (2) (BEAKER) (test 1.5 mmol/L 0.5-2.2 jgck=6358) Effective 07/15/2015: Units/Reference Range ChangeNew: 0.5-2.2 mmol/L Previous: 5 -20 mg/dLBLOOD GAS, [id number] 15:57:00 Test Item Value Reference Range Comments PH VENOUS (BEAKER) (test wxdg=213) 7.39 7.32-7.42 PCO2 VENOUS (BEAKER) (test xxrb=056) 46 mmHg 41-51 PO2 VENOUS (BEAKER) (test krah=095) 39 mmHg 25-40 O2 SATURATION VENOUS (BEAKER) (test fmpk=320) 74.4 % 40.0-70.0 HCO3 VENOUS (BEAKER) (test svxl=397) 27 mmol/L 21-29 BASE EXCESS VENOUS (BEAKER) (test uivx=283) 2.0 mmol/L -2.0-3.0 PATIENT TEMPERATURE (BEAKER) (test yibz=9836) 36.5 C FIO2 (BEAKER) (test heea=9398) 21.0 % POCT-GLUCOSE [id number] 12:45:00 Test Item Value Reference Range Comments POC-GLUCOSE METER (BEAKER) 201 mg/dL 70-110 TESTED AT [facility] [address] (test jmvq=6939) [facility] [address] POCT-GLUCOSE [id number] 08:26:00 Test Item Value Reference Range Comments POC-GLUCOSE METER (BEAKER) 181 mg/dL 70-110 TESTED AT [facility] [address] (test xugj=5128) [facility] [address] [id number] 07:00:00 Test Item Value Reference Range Comments FERRITIN (BEAKER) (test supg=341) 337 ng/mL 5-275 Effective 01/28/2014: Reference Range ChangeNew: Male 5-275 Previous: Male 22-322 Female 5-275 Female [id number] 06:20: 00 Test Item Value Reference Range Comments MAGNESIUM (BEAKER) (test dkuh=462) 1.8 mg/dL 1.6-2.6 BASIC METABOLIC [id number] 06:20:00 Test Item Value Reference Range Comments SODIUM (BEAKER) (test 137 meq/L 136-145 gklt=692) POTASSIUM (BEAKER) (test 3.8 meq/L 3.5-5.1 kvfs=014) CHLORIDE (BEAKER) (test 102 meq/L 98-107 juoo=530) CO2 (BEAKER) (test 20 meq/L 22-29 hipp=206) BLOOD UREA NITROGEN 64 mg/dL 7-21 (BEAKER) (test ytqz=723) CREATININE (BEAKER) (test 15.09 mg/dL 0.57-1.25 eizq=024) GLUCOSE RANDOM (BEAKER) 176 mg/dL 70-105 (test lymr=140) CALCIUM (BEAKER) (test 7.1 mg/dL 8.4-10.2 plvm=689) EGFR (BEAKER) (test 3 mL/min/1.73 sq m ESTIMATED GFR IS NOT ozrt=4300) ACCURATE CREATININE CLEARANCE IN PREDICTING GLOMERULAR FILTRATION RATE. ESTIMATED GFR IS NOT APPLICABLE FOR DIALYSIS PATIENTS. IRON, TIBC, % SAT. (WITHOUT FERRITIN)[id number] 06:19:00 Test Item Value Reference Range Comments IRON (BEAKER) (test cghn=462) 59 ug/dL 40-160 TOTAL IRON BINDING CAPACITY (BEAKER) (test 233 ug/dL 250-450 knml=446) IRON % SATURATION (2) (BEAKER) (test dogo=9673) 25 % 20-55 CBC W/PLT COUNT & AUTO [id number] 06:00:00 Test Item Value Reference Range Comments WHITE BLOOD CELL COUNT (BEAKER) (test vcvu=976) 4.0 K/ L 4.0-10.0 RED BLOOD CELL COUNT (BEAKER) (test cnhk=319) 3.68 M/ L 4.00-5.00 HEMOGLOBIN (BEAKER) (test exos=655) 10.7 GM/DL 12.0-15.0 HEMATOCRIT (BEAKER) (test hvrb=974) 32.4 % 36.0-45.0 MEAN CORPUSCULAR VOLUME (BEAKER) (test thcj=416) 88.0 fL 82.0-99.0 MEAN CORPUSCULAR HEMOGLOBIN (BEAKER) (test 29.1 pg 27.0-33.0 vnng=417) MEAN CORPUSCULAR HEMOGLOBIN CONC (BEAKER) (test 33.1 GM/DL 32.0-36.0 xsey=351) RED CELL DISTRIBUTION WIDTH (BEAKER) (test 19.0 % 10.3-14.2 jjmw=723) PLATELET COUNT (BEAKER) (test zcrz=905) 194 K/CU MM 150-430 MEAN PLATELET VOLUME (BEAKER) (test hbwv=903) 9.2 fL 6.5-10.5 NUCLEATED RED BLOOD CELLS (BEAKER) (test 0 /100 WBC 0-0 czps=209) NEUTROPHILS RELATIVE PERCENT (BEAKER) (test 64 % zvrg=564) LYMPHOCYTES RELATIVE PERCENT (BEAKER) (test 23 % atsy=760) MONOCYTES RELATIVE PERCENT (BEAKER) (test 8 % wmcc=965) EOSINOPHILS RELATIVE PERCENT (BEAKER) (test 3 % mreu=235) BASOPHILS RELATIVE PERCENT (BEAKER) (test 1 % lnhg=823) NEUTROPHILS ABSOLUTE COUNT (BEAKER) (test 2.59 K/ L 1.80-8.00 eakp=716) LYMPHOCYTES ABSOLUTE COUNT (BEAKER) (test 0.92 K/ L 1.48-4.50 iihs=632) MONOCYTES ABSOLUTE COUNT (BEAKER) (test 0.34 K/ L 0.00-1.30 ygno=553) EOSINOPHILS ABSOLUTE COUNT (BEAKER) (test 0.13 K/ L 0.00-0.50 culj=358) BASOPHILS ABSOLUTE COUNT (BEAKER) (test 0.06 K/ L 0.00-0.20 wbmt=167) 0.00POCT-GLUCOSE [id number] 17:21:00 Test Item Value Reference Range Comments POC-GLUCOSE METER (BEAKER) 196 mg/dL 70-110 TESTED AT [facility] [address] [facility] (test enpz=0888) [facility] [address] POCT-GLUCOSE [id number] 12:54:00 Test Item Value Reference Range Comments POC-GLUCOSE METER (BEAKER) 190 mg/dL 70-110 TESTED AT [place] [id number] [facility] (test fybw=0295) [facility] [address] HEMOGLOBIN AND [id number] 11:25:00 Test Item Value Reference Range Comments HEMOGLOBIN (BEAKER) (test sgrt=722) 9.1 GM/DL 12.0-15.0 HEMATOCRIT (BEAKER) (test zvfl=155) 27.2 % 36.0-45.0 POCT-GLUCOSE [id number] 07:54:00 Test Item Value Reference Range Comments POC-GLUCOSE METER (BEAKER) 116 mg/dL 70-110 TESTED AT [address] (test qgyq=2991) [facility] [address] [id number] 05:00:00 Test Item Value Reference Range Comments PHOSPHORUS (BEAKER) (test hqwo=725) 8.0 mg/dL 2.3-4.7 BASIC METABOLIC [id number] 01:32:00 Test Item Value Reference Range Comments SODIUM (BEAKER) (test 133 meq/L 136-145 nylp=618) POTASSIUM (BEAKER) (test 4.8 meq/L 3.5-5.1 Specimen slightly fwdn=790) hemolyzed CHLORIDE (BEAKER) (test 95 meq/L 98-107 ogva=107) CO2 (BEAKER) (test 25 meq/L 22-29 wqiv=760) BLOOD UREA NITROGEN 73 mg/dL 7-21 (BEAKER) (test mpjq=420) CREATININE (BEAKER) (test 17.24 mg/dL 0.57-1.25 Specimen slightly lbfq=055) hemolyzed GLUCOSE RANDOM (BEAKER) 127 mg/dL 70-105 (test nnoe=790) CALCIUM (BEAKER) (test 7.9 mg/dL 8.4-10.2 owcv=995) EGFR (BEAKER) (test 3 mL/min/1.73 sq m ESTIMATED GFR IS NOT iiks=2148) ACCURATE CREATININE CLEARANCE IN PREDICTING GLOMERULAR FILTRATION RATE. ESTIMATED GFR IS NOT APPLICABLE FOR DIALYSIS PATIENTS. CBC W/PLT COUNT & AUTO [id number] 01:18:00 Test Item Value Reference Range Comments WHITE BLOOD CELL COUNT (BEAKER) (test iluy=752) 6.0 K/ L 4.0-10.0 RED BLOOD CELL COUNT (BEAKER) (test zntt=268) 3.16 M/ L 4.00-5.00 HEMOGLOBIN (BEAKER) (test olze=967) 9.0 GM/DL 12.0-15.0 HEMATOCRIT (BEAKER) (test zvld=207) 27.5 % 36.0-45.0 MEAN CORPUSCULAR VOLUME (BEAKER) (test jclc=005) 86.9 fL 82.0-99.0 MEAN CORPUSCULAR HEMOGLOBIN (BEAKER) (test 28.4 pg 27.0-33.0 qsek=815) MEAN CORPUSCULAR HEMOGLOBIN CONC (BEAKER) (test 32.6 GM/DL 32.0-36.0 prex=946) RED CELL DISTRIBUTION WIDTH (BEAKER) (test 18.9 % 10.3-14.2 pikt=493) PLATELET COUNT (BEAKER) (test xsup=939) 177 K/CU MM 150-430 MEAN PLATELET VOLUME (BEAKER) (test oahi=432) 9.2 fL 6.5-10.5 NUCLEATED RED BLOOD CELLS (BEAKER) (test 0 /100 WBC 0-0 mklx=128) NEUTROPHILS RELATIVE PERCENT (BEAKER) (test 72 % iyml=996) LYMPHOCYTES RELATIVE PERCENT (BEAKER) (test 18 % whqr=295) MONOCYTES RELATIVE PERCENT (BEAKER) (test 9 % hmvh=516) EOSINOPHILS RELATIVE PERCENT (BEAKER) (test 0 % yuct=868) BASOPHILS RELATIVE PERCENT (BEAKER) (test 0 % llkb=672) NEUTROPHILS ABSOLUTE COUNT (BEAKER) (test 4.29 K/ L 1.80-8.00 nnkf=781) LYMPHOCYTES ABSOLUTE COUNT (BEAKER) (test 1.10 K/ L 1.48-4.50 xkiq=802) MONOCYTES ABSOLUTE COUNT (BEAKER) (test 0.54 K/ L 0.00-1.30 mmxe=104) EOSINOPHILS ABSOLUTE COUNT (BEAKER) (test 0.02 K/ L 0.00-0.50 qcbu=460) BASOPHILS ABSOLUTE COUNT (BEAKER) (test 0.03 K/ L 0.00-0.20 eucv=519) 0.00POCT-GLUCOSE [id number] 22:11:00 Test Item Value Reference Range Comments POC-GLUCOSE METER (BEAKER) 200 mg/dL 70-110 TESTED AT [address] (test iajn=6337) [facility] [address] POCT-GLUCOSE [id number] 18:17:00 Test Item Value Reference Range Comments POC-GLUCOSE METER (BEAKER) 206 mg/dL 70-110 TESTED AT [address] (test kbjy=6168) [place] [id number] 17:39:00 Test Item Value Reference Range Comments POTASSIUM (BEAKER) (test rtpl=885) 4.7 meq/L 3.5-5.1 BASIC METABOLIC [id number] 11:55:00 Test Item Value Reference Range Comments SODIUM (BEAKER) (test 138 meq/L 136-145 sdda=427) POTASSIUM (BEAKER) (test 4.4 meq/L 3.5-5.1 fwnj=237) CHLORIDE (BEAKER) (test 96 meq/L 98-107 suhm=383) CO2 (BEAKER) (test 27 meq/L 22-29 pgqv=434) BLOOD UREA NITROGEN 68 mg/dL 7-21 (BEAKER) (test wxax=420) CREATININE (BEAKER) (test 16.75 mg/dL 0.57-1.25 jkkj=195) GLUCOSE RANDOM (BEAKER) 139 mg/dL 70-105 (test cpiz=884) CALCIUM (BEAKER) (test 8.5 mg/dL 8.4-10.2 fgoz=957) EGFR (BEAKER) (test 3 mL/min/1.73 sq m ESTIMATED GFR IS NOT vkku=9509) ACCURATE CREATININE CLEARANCE IN PREDICTING GLOMERULAR FILTRATION RATE. ESTIMATED GFR IS NOT APPLICABLE FOR DIALYSIS PATIENTS. [id number] 11:42:00 Test Item Value Reference Range Comments PROTIME (BEAKER) (test imll=509) 14.6 seconds 11.7-14.7 INR (BEAKER) (test nnck=326) 1.2 <=5.9 PARTIAL THROMBOPLASTIN TIME (BEAKER) (test 33.8 seconds 22.5-36.0 mmuq=389) RECOMMENDED COUMADIN/WARFARIN INR THERAPY RANGESSTANDARD DOSE: 2.0 - 3.0 Includes: PROPHYLAXIS forvenous thrombosis, systemic embolization; TREATMENT for venous thrombosis and/or pulmonary embolus.HIGH RISK: Target INR is 2.5-3.5 for patients with mechanical heart valves.CBC W/PLT COUNT & AUTO [id number] 11:39:00 Test Item Value Reference Range Comments WHITE BLOOD CELL COUNT (BEAKER) (test qdqg=653) 5.9 K/ L 4.0-10.0 RED BLOOD CELL COUNT (BEAKER) (test nhfm=459) 3.66 M/ L 4.00-5.00 HEMOGLOBIN (BEAKER) (test uthn=466) 10.3 GM/DL 12.0-15.0 HEMATOCRIT (BEAKER) (test eice=766) 31.9 % 36.0-45.0 MEAN CORPUSCULAR VOLUME (BEAKER) (test sjin=169) 87.1 fL 82.0-99.0 MEAN CORPUSCULAR HEMOGLOBIN (BEAKER) (test 28.2 pg 27.0-33.0 fxpr=881) MEAN CORPUSCULAR HEMOGLOBIN CONC (BEAKER) (test 32.4 GM/DL 32.0-36.0 dmfn=894) RED CELL DISTRIBUTION WIDTH (BEAKER) (test 17.9 % 10.3-14.2 rvrx=400) PLATELET COUNT (BEAKER) (test kesv=439) 192 K/CU MM 150-430 MEAN PLATELET VOLUME (BEAKER) (test dibu=826) 8.8 fL 6.5-10.5 NUCLEATED RED BLOOD CELLS (BEAKER) (test 0 /100 WBC 0-0 lcsu=095) NEUTROPHILS RELATIVE PERCENT (BEAKER) (test 74 % zykc=242) LYMPHOCYTES RELATIVE PERCENT (BEAKER) (test 16 % ptuu=513) MONOCYTES RELATIVE PERCENT (BEAKER) (test 7 % zxss=585) EOSINOPHILS RELATIVE PERCENT (BEAKER) (test 2 % udkg=361) BASOPHILS RELATIVE PERCENT (BEAKER) (test 1 % ucfd=366) NEUTROPHILS ABSOLUTE COUNT (BEAKER) (test 4.35 K/ L 1.80-8.00 fbzo=470) LYMPHOCYTES ABSOLUTE COUNT (BEAKER) (test 0.94 K/ L 1.48-4.50 afdy=816) MONOCYTES ABSOLUTE COUNT (BEAKER) (test 0.39 K/ L 0.00-1.30 pxnc=688) EOSINOPHILS ABSOLUTE COUNT (BEAKER) (test 0.15 K/ L 0.00-0.50 spqr=520) BASOPHILS ABSOLUTE COUNT (BEAKER) (test 0.05 K/ L 0.00-0.20 kaip=206) 0.00
[2017-11-14] MEDS ORDERED: IPRATROPIUM BROM 0.5MG/2.5ML ONE (11:23)
[2017-11-14] MEDS ORDERED: CEFTRIAXONE/SWI 1gm 1 GM/10 ML SYR ONE (11:23)
[2017-11-14] MEDS ORDERED: ALBUTEROL 2.5 MG/3 ML NEB SOL ONE (11:23)
[2017-11-14] MEDS ORDERED: AZITHROMYCIN 500 MG/250 ML BAG ONE (11:24)
[2017-11-14 12:01] LABS: Protime INR 1.17
--- NOTE | 2017-11-14 12:04 | ER ---
Nurse's Notes [facility] Name: Yamile Brooke Age: 47 yrs Sex: Female : 1970 Arrival Date: 11/14/2017 Time: 10:27 Bed 14 Private MD: Vasile Schofield Diagnosis: Dyspnea;End stage renal disease;Hypoxemia;Pleural effusion in conditions classified elsewhere;Type 2 diabetes mellitus Presentation: 11/14 11:05 Initial Sepsis Screen: Does the patient meet any 2 criteria? No. Patient's initial rb1 sepsis screen is negative. Does the patient have a suspected source of infection? No. Patient's initial sepsis screen is negative. 11:08 Presenting complaint: Patient states: " I started feeling SOB last night and I thought ph it would get better after dialysis but it didn't." Pt reports productive cough x 3 weeks, denies fever, Spo2 89% RA in triage. Transition of care: patient was not received from another setting of care. Onset of symptoms was November 14, 2017. Risk Assessment: Do you want to hurt yourself or someone else? Patient reports no desire to harm self or others. Care prior to arrival: None. 11:08 Method Of Arrival: Ambulatory ph 11:08 Acuity: ARIE 3 ph Triage Assessment: 11:05 Respiratory: Onset: The symptoms/episode began/occurred yesterday, the patient has rb1 moderate shortness of breath. 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 - Social history:: Smoking status: Patient/guardian denies using tobacco. - Family history:: not pertinent. - Ebola Screening: : Patient negative for fever greater than or equal to 101.5 degrees Fahrenheit, and additional compatible Ebola Virus Disease symptoms. Screenin:05 Abuse screen: Denies threats or abuse. Nutritional screening: No deficits noted. rb1 Tuberculosis screening: No symptoms or risk factors identified. Fall Risk None identified. Assessment: 11:05 General: Appears in no apparent distress. comfortable, slender, Behavior is calm, rb1 cooperative. Neuro: Level of Consciousness is awake, alert, obeys commands, Oriented to person, place, time, situation. Cardiovascular: Capillary refill < 3 seconds is brisk in bilateral fingers. Respiratory: Reports shortness of breath since last night Airway is patent Respiratory effort is even, unlabored, Respiratory pattern is regular, symmetrical. GI: No signs and/or symptoms were reported involving the gastrointestinal system. : pt. had dialysis today, but continues to be SOB. Derm: Skin is dry, Skin is normal, Skin temperature is warm. 11:05 Pain: Denies pain. Cardiovascular: Rhythm is regular. Respiratory: Breath sounds are rb1 diminished in left posterior lower lobe. 12:00 Reassessment: Patient appears in no apparent distress at this time. No changes from rb1 previously documented assessment. 13:00 Reassessment: Patient appears in no apparent distress at this time. Patient and/or rb1 family updated on plan of care and expected duration. Pain level reassessed. Patient is alert, oriented x 3, equal unlabored respirations, skin warm/dry/pink. 14:00 Reassessment: Patient appears in no apparent distress at this time. Patient and/or ss family updated on plan of care and expected duration. Pain level reassessed. Patient is alert, oriented x 3, equal unlabored respirations, skin warm/dry/pink. Gave the pt. some crackers. Family at bedside. 14:08 Reassessment: Called report to MILA Rouse. Information from the [facility] was given. All rb1 questions asked and answered. Vital Signs: 10:56 BP 132 / 95; Pulse 108; Resp 24; Temp 98.2; Pulse Ox 93% on R/A; Weight 65.77 kg; ph 11:54 BP 148 / 94; Pulse 102; Resp 21; Pulse Ox 96% on 2 lpm NC; Pain 0/10; rb1 13:09 BP 136 / 73; Pulse 101; Resp 20; Pulse Ox 98% on 2 lpm NC; sm4 14:00 BP 147 / 91; Pulse 103; Resp 20; Pulse Ox 99% on 2 lpm NC; Pain 0/10; ss ED Course: 10:27 Patient arrived in ED. sb2 10:27 Vasile Schofield MD is Private Physician. sb2 11:03 Cesar Landrum MD is Attending Physician. heather 11:05 Patient has correct armband on for positive identification. Placed in gown. Bed in low rb1 position. Call light in reach. Side rails up X 1. Pulse ox on. NIBP on. Warm blanket given. 11:05 Missed attempt(s): 22 gauge in right antecubital area. rb1 11:09 Triage completed. ph 11:10 Arm band placed on Patient placed in waiting room, on oxygen, on pulse oximetry. ph 11:14 Rea Sharif, MILA is Primary Nurse. rb1 11:27 EKG done, by data communications technician. at1 11:40 Inserted saline lock: 22 gauge in right antecubital area, using aseptic technique. rb1 ,using aseptic technique. Inserted by RIANA Suarez Blood collected. 11:52 XRAY Chest (1 view) In Process Unspecified. EDMS 11:59 Vasile Schofield MD is Hospitalizing Provider. heather 12:00 Missed attempt(s): 22 gauge in right hand. Attempted by MILA Jones.. rb1 12:10 Missed attempt(s): 22 gauge in right hand. Attempted by MILA Jones. rb1 13:00 Inserted saline lock: 22 gauge in right hand, using aseptic technique. ,using aseptic rb1 technique. Inserted by Alissa ED director. 14:29 No provider procedures requiring assistance completed. Patient admitted, IV remains in rb1 place. Administered Medications: 11:20 Drug: Albuterol - atroVENT (3:1) (2.5 mg - 0.5 mg) 3 ml Route: Nebulizer; rb1 12:00 Follow up: Response: No adverse reaction; Marked relief of symptoms rb1 13:00 Drug: Zithromax 500 mg Route: IVPB; Infused Over: 1 hrs; Site: right hand; rb1 14:25 Follow up: Response: No adverse reaction; Blood sugar is elevated; IV Status: Infusion rb1 continued upon admission 13:00 Drug: Rocephin 1 grams Route: IV; Rate: calculated rate; Site: right hand; rb1 13:30 Follow up: Response: No adverse reaction; IV Status: Completed infusion rb1 15:08 CANCELLED (wrong order): Rocephin - (cefTRIAXone) 1 grams IVPB once over 30 mins; (mix rb1 in 50 mL NS) Outcome: 12:03 Decision to Hospitalize by Provider. heather 14:29 Patient left the ED. rb1 14:29 Admitted to Med/surg accompanied by tech, family with patient, via wheelchair, room rb1 216, with chart, Report called to MILA Rouse 14:29 Condition: stable 14:29 Instructed on the need for admit. 15:16 Patient left the ED. rb1 Signatures: Dispatcher [employer] EDMS Cesar Landrum MD MD cha Smirch, Shelby, RN RN Alana Valencia, internal audit director EKG Tat1 Shirley Tyson RN RN Rea Brower RN RN rb1 Khushi Kaiser2 Robert Thakur RN RN sm4
--- NOTE | 2017-11-14 12:04 | EDPHYS ---
Physician Documentation [facility] Name: Yamile Brooke Age: 47 yrs Sex: Female : 1970 Arrival Date: 11/14/2017 Time: 10:27 Bed 14 Private MD: Vasile Schofield ED Physician Cesar Landrum HPI: 11/14 11:15 This 47 yrs old Black Female presents to ER via Ambulatory with complaints of Chest heather Congestion, Productive Cough. 11:15 The patient or guardian reports cough, difficulty breathing. Onset: The heather symptoms/episode began/occurred 4 day(s) ago. Severity of symptoms: At their worst the symptoms were mild, moderate, in the emergency department the symptoms are unchanged. Modifying factors: The symptoms are alleviated by nothing, the symptoms are aggravated by nothing. Associated signs and symptoms: The patient has no apparent associated signs or symptoms. The patient has experienced similar episodes in the past, a few times. 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 - Social history:: Smoking status: Patient/guardian denies using tobacco. - Family history:: not pertinent. - Ebola Screening: : Patient negative for fever greater than or equal to 101.5 degrees Fahrenheit, and additional compatible Ebola Virus Disease symptoms. ROS: 11:15 Constitutional: Negative for fever, chills, and weight loss, Eyes: Negative for injury, heather pain, redness, and discharge, ENT: Negative for injury, pain, and discharge, Neck: Negative for injury, pain, and swelling, Cardiovascular: Negative for chest pain, palpitations, and edema, Abdomen/GI: Negative for abdominal pain, nausea, vomiting, diarrhea, and constipation, Back: Negative for injury and pain, : Negative for injury, bleeding, discharge, and swelling, MS/Extremity: Negative for injury and deformity, Skin: Negative for injury, rash, and discoloration, Neuro: Negative for headache, weakness, numbness, tingling, and seizure. 11:15 Respiratory: Positive for cough, shortness of breath, on exertion. Exam: 11:15 Constitutional: This is a well developed, well nourished patient who is awake, alert, heather and in no acute distress. Head/Face: Normocephalic, atraumatic. Eyes: Pupils equal round and reactive to light, extra-ocular motions intact. Lids and lashes normal. Conjunctiva and sclera are non-icteric and not injected. Cornea within normal limits. Periorbital areas with no swelling, redness, or edema. ENT: Nares patent. No nasal discharge, no septal abnormalities noted. Tympanic membranes are normal and external auditory canals are clear. Oropharynx with no redness, swelling, or masses, exudates, or evidence of obstruction, uvula midline. Mucous membranes moist. Neck: Trachea midline, no thyromegaly or masses palpated, and no cervical lymphadenopathy. Supple, full range of motion without nuchal rigidity, or vertebral point tenderness. No Meningismus. Chest/axilla: Normal chest wall appearance and motion. Nontender with no deformity. No lesions are appreciated. Cardiovascular: Regular rate and rhythm with a normal S1 and S2. No gallops, murmurs, or rubs. Normal PMI, no JVD. No pulse deficits. Respiratory: Lungs have equal breath sounds bilaterally, clear to auscultation and percussion. No rales, rhonchi or wheezes noted. No increased work of breathing, no retractions or nasal flaring. Abdomen/GI: Soft, non-tender, with normal bowel sounds. No distension or tympany. No guarding or rebound. No evidence of tenderness throughout. Back: No spinal tenderness. No costovertebral tenderness. Full range of motion. Skin: Warm, dry with normal turgor. Normal color with no rashes, no lesions, and no evidence of cellulitis. MS/ Extremity: Pulses equal, no cyanosis. Neurovascular intact. Full, normal range of motion. Neuro: Awake and alert, GCS 15, oriented to person, place, time, and situation. Cranial nerves II-XII grossly intact. Motor strength 5/5 in all extremities. Sensory grossly intact. Cerebellar exam normal. Normal gait. Psych: Awake, alert, with orientation to person, place and time. Behavior, mood, and affect are within normal limits. 11:15 Cardiovascular: Rate: normal, Rhythm: regular, Pulses: Pulses are 4+ in bilateral radial, brachial, femoral, popliteal, posterior tibial and and dorsalis pedis arteries.. Heart sounds: normal, Edema: is not appreciated, JVD: is not appreciated. 11:15 Musculoskeletal/extremity: DVT Exam: No signs of deep vein thrombosis. no pain, no swelling, no tenderness, negative Homans' sign noted on exam, no appreciated bluish discoloration, no erythema, no increased warmth. Vital Signs: 10:56 BP 132 / 95; Pulse 108; Resp 24; Temp 98.2; Pulse Ox 93% on R/A; Weight 65.77 kg; ph 11:54 BP 148 / 94; Pulse 102; Resp 21; Pulse Ox 96% on 2 lpm NC; Pain 0/10; rb1 13:09 BP 136 / 73; Pulse 101; Resp 20; Pulse Ox 98% on 2 lpm NC; sm4 14:00 BP 147 / 91; Pulse 103; Resp 20; Pulse Ox 99% on 2 lpm NC; Pain 0/10; ss MDM: 11:03 Patient medically screened. [facility] 11:17 Data reviewed: vital signs, nurses notes, lab test result(s), EKG, radiologic studies, heather plain films. 11/14 11:14 Order name: Basic Metabolic Panel; Complete Time: 13:35 [facility] 11/14 11:14 Order name: CBC with Diff; Complete Time: 13:35 [facility] 11/14 11:14 Order name: Ckmb; Complete Time: 13:35 [facility] 11/14 11:14 Order name: CPK; Complete Time: 13:35 [facility] 11/14 11:14 Order name: LFT's; Complete Time: 13:35 [facility] 11/14 11:14 Order name: Magnesium; Complete Time: 13:35 [facility] 11/14 11:14 Order name: NT PRO-BNP; Complete Time: 13:35 [facility] 11/14 11:14 Order name: PT-INR; Complete Time: 13:35 [facility] 11/14 11:14 Order name: Ptt, Activated; Complete Time: 13:35 [facility] 11/14 11:14 Order name: Troponin (emerg Dept Use Only); Complete Time: 13:35 [facility] 11/14 11:14 Order name: Blood Culture Adult (2) [facility] 11/14 11:14 Order name: Influenza Screen (a \T\ B); Complete Time: 13:35 [facility] 11/14 11:14 Order name: Urine Culture [facility] 11/14 12:13 Order name: Basic Metabolic Panel [facility] 11/14 11:14 Order name: XRAY Chest (1 view); Complete Time: 13:35 [facility] 11/14 12:13 Order name: Basic Metabolic Panel [facility] 11/14 12:13 Order name: CBC with Automated Diff [facility] 11/14 12:13 Order name: CBC with Automated Diff [facility] 11/14 12:13 Order name: NT PRO-BNP [facility] 11/14 12:13 Order name: NT PRO-BNP [facility] 11/14 12:13 Order name: Troponin I [facility] 11/14 12:13 Order name: Troponin I [facility] 11/14 12:13 Order name: Troponin I [facility] 11/14 12:13 Order name: Chest Single View [facility] 11/14 12:13 Order name: Chest Single View [facility] 11/14 13:03 Order name: Urine Dipstick--Ancillary (enter results) 11/14 11:14 Order name: EKG; Complete Time: 11:16 [facility] 11/14 11:14 Order name: Cardiac monitoring; Complete Time: 11:16 [facility] 11/14 11:14 Order name: EKG - Nurse/Tech [facility] 11/14 11:14 Order name: IV Saline Lock; Complete Time: 13:24 [facility] 11/14 11:14 Order name: Labs collected and sent; Complete Time: 13:24 [facility] 11/14 11:14 Order name: O2 Per Protocol; Complete Time: 11:17 [facility] 11/14 11:14 Order name: O2 Sat Monitoring; Complete Time: 11:16 [facility] 11/14 12:12 Order name: CONS Physician Consult [facility] 11/14 12:12 Order name: CONS Physician Consult [facility] 11/14 12:13 Order name: Consistent Carb (ADA) [address] [facility] 11/14 12:13 Order name: EKG Electrocardiogram [facility] 11/14 12:13 Order name: EKG Electrocardiogram [facility] Administered Medications: 11:20 Drug: Albuterol - atroVENT (3:1) (2.5 mg - 0.5 mg) 3 ml Route: Nebulizer; rb1 12:00 Follow up: Response: No adverse reaction; Marked relief of symptoms rb1 13:00 Drug: Zithromax 500 mg Route: IVPB; Infused Over: 1 hrs; Site: right hand; rb1 14:25 Follow up: Response: No adverse reaction; Blood sugar is elevated; IV Status: Infusion rb1 continued upon admission 13:00 Drug: Rocephin 1 grams Route: IV; Rate: calculated rate; Site: right hand; rb1 13:30 Follow up: Response: No adverse reaction; IV Status: Completed infusion rb1 15:08 CANCELLED (wrong order): Rocephin - (cefTRIAXone) 1 grams IVPB once over 30 mins; (mix rb1 in 50 mL NS) Disposition: 11/14/17 12:03 Hospitalization ordered by Vasile Schofield for Inpatient Admission. Preliminary diagnosis are Dyspnea, End stage renal disease, Hypoxemia, Pleural effusion in conditions classified elsewhere, Type 2 diabetes mellitus. - Bed requested for Telemetry/MedSurg (Inpatient). - Status is Inpatient Admission. rb1 - Condition is Fair. - Problem is new. - Symptoms have improved. UTI on Admission? No Signatures: Dispatcher [employer] EDMS Cesar Landrum MD MD cha Hall, Patricia, RN RN Rea Sharif, RN RN rb1 Pat Koehler Corrections: (The following items were deleted from the chart) 13:33 12:03 Hospitalization Ordered by Vasile Schofield MD for Inpatient Admission. Preliminary eb diagnosis is Dyspnea; End stage renal disease; Hypoxemia; Pleural effusion in conditions classified elsewhere; Type 2 diabetes mellitus. Bed requested for Telemetry/MedSurg (Inpatient). Status is Inpatient Admission. Condition is Fair. Problem is new. Symptoms have improved. UTI on Admission? No. heather 14:29 13:33 11/14/2017 12:03 Hospitalization Ordered by Vasile Schofield MD for Inpatient rb1 Admission. Preliminary diagnosis is Dyspnea; End stage renal disease; Hypoxemia; Pleural effusion in conditions classified elsewhere; Type 2 diabetes mellitus. Bed requested for Telemetry/MedSurg (Inpatient). Status is Inpatient Admission. Condition is Fair. Problem is new. Symptoms have improved. UTI on Admission? No. eb 15:16 14:29 11/14/2017 12:03 Hospitalization Ordered by Vasile Schofield MD for Inpatient rb1 Admission. Preliminary diagnosis is Dyspnea; End stage renal disease; Hypoxemia; Pleural effusion in conditions classified elsewhere; Type 2 diabetes mellitus. Bed requested for Telemetry/MedSurg (Inpatient). Status is Inpatient Admission. Condition is Fair. Problem is new. Symptoms have improved. UTI on Admission? No. rb1
[2017-11-14] MEDS ORDERED: ONDANSETRON 4 MG/2 ML VIAL IV PRN (12:08)
[2017-11-14] MEDS ORDERED: MORPHINE 2 MG/ML SYR IV PRN (12:08)
[2017-11-14] MEDS ORDERED: ACETAMINOPHEN 500 MG TAB PO PRN (12:08)
--- NOTE | 2017-11-14 12:08 | RAD REPORT ---
EXAM DESCRIPTION: RAD - Chest Single View - 11/14/2017 11:52 am CLINICAL HISTORY: COUGH Chest pain. COMPARISON: Chest Single View dated 08/21/2017; Chest Pa And Lat (2 Views) dated 06/01/2017; Chest Pa And Lat (2 Views) dated 05/30/2017; Chest Single View dated 05/30/2017 FINDINGS: Portable technique limits examination quality. Moderate to large bilateral pleural effusions are noted. Moderate bilateral pulmonary opacities are s een compatible with pulmonary edema. Cardiac size is not well assessed. Right-sided venous catheter h as tip in SVC. IMPRESSION: Moderate CHF versus volume overload pattern.
--- NOTE | 2017-11-14 12:18 | EKG ---
Test Date: 2017-11-14 Test Time: 11:21:03 Automotive Technician: MORE MEASUREMENT RESULTS: Intervals: Rate: 99 MD: 144 QRSD: 98 QT: 410 QTc: 526 [place]: P: 82 MD: 144 QRS: -10 T: 150 INTERPRETIVE STATEMENTS: Normal sinus rhythm T wave abnormality, consider lateral ischemia Prolonged QT Abnormal ECG Compared to ECG 08/21/2017 11:48:26 T-wave abnormality now present Prolonged QT interval now present Sinus tachycardia no longer present Myocardial infarct finding no longer present ST (T wave) deviation no longer present Possible ischemia still present Electronically Signed On 11-14-17 12:17:33 CDT by Yovany Dewey
[2017-11-14 12:24] LABS: Absolute Lymphocytes (CBC) 0.7 K/uL (0.7-4.9); Absolute Monocytes 0.4 K/uL (0.1-1.3); Absolute Neutrophil 4.9 K/uL (1.8-8.0); Basophils % 0.7 % (0-1.3); Eosinophils % 2.1 % (0-4.4); Hematocrit 29.8 % (36.0-45.0); Lymphocytes % 10.9 % (15.3-44.8); MCH 31.4 pg (27.0-35.0); MCV 93.2 fL (80-100); MPV 8.9 fL (7.6-11.3); Monocytes % 5.8 % (3.3-12.3)
[2017-11-14 12:27] LABS: Albumin 3.2 g/dL (3.4-5.0); Bilirubin Direct 0.2 mg/dL (0-0.2); Bilirubin Total 0.6 mg/dL (0.2-1.0); CKMB Creatine Kinase MB 4.3 ng/mL (0.3-3.6); Potassium 3.4 mmol/L (3.5-5.1); Protein, Total 10.5 g/dL (6.4-8.2)
[2017-11-14 12:28] LABS: Magnesium 2.2 mg/dL (1.8-2.4); Troponin (Emerg Dept Use Only) 0.12 ng/mL (0.0-0.045)
[2017-11-14] MEDS: FUROSEMIDE 20 MG/ 2ML VIAL IV SCH (17:00)
[2017-11-14 17:30] LABS: Urine Blood NEGATIVE (NEG); Urine Glucose NEGATIVE (NEG); Urine Protein NEGATIVE (NEG); Urine Specific Gravity 1.015 (1.005-1.030)
[2017-11-14] MEDS: ALBUTEROL 2.5 MG/3 ML NEB SOL NEB PRN (19:38)
[2017-11-14] MEDS: IPRATROPIUM BROM 0.5MG/2.5ML NEB PRN (19:38)
[2017-11-14] MEDS: GABAPENTIN 100 MG CAP PO SCH (20:52)
[2017-11-14] MEDS: HYDRALAZINE HCL 10 MG TABLET PO SCH (20:52)
[2017-11-14] MEDS: PREDNISOLONE 1% OPTH SOLN 5ML OPTH SCH (20:57)
[2017-11-14] MEDS ORDERED: HOME MED 1 EA UNK (Nifedipine [Nifedipine Er] 90 MG) PO SCH (21:00)
--- NOTE | 2017-11-15 04:44 | HP ---
Date of Admission: 11/14/2017 Chief Complaint: Shortness of breath. History Of Present Illness: A 47-year-old female patient with end-stage renal disease and multiple other comorbidities, goes for dialysis Monday, , Monday, and as of last few days she was really having trouble with shortness of breath and today she went for her dialysis. She finished her dialysis session, and after she got done with dialysis, she was asked to come to emergency room because of her shortness of breath. Her dialysis did help her little bit. She denies any fever, but has been having some cough, congestion, and coughing up some yellowish-colored mucus in last few days. No vomiting. No diarrhea. After she was evaluated in ER, she was admitted to the hospital. I saw her this evening. Her 2 sons were present at bedside. Allergies: TO TRAMADOL. Medications: List reviewed includes prednisolone eye drops, nifedipine 30 mg twice a day, gabapentin 100 mg she takes 2 capsules 2 times a day, and hydralazine 10 mg twice a day. Review of Systems: Respiratory: As mentioned above. 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 All other systems reviewed and negative. Social History: Negative for smoking, alcohol use. Family History: Significant for hypertension, diabetes, coronary artery disease , pulmonary embolism, atrial fibrillation. Past Surgical History: Hysterectomy, coronary artery angioplasty with stent placement in June 2016. Past Medical History: Hypertension, end-stage renal disease on hemodialysis, chronic systolic congestive heart failure with low ejection fraction around 35% to 39% as per October of 2016, and then echocardiogram done May 2017 showed normal ejection fraction. Bilateral pleural effusion, diabetes mellitus, hyperlipidemia, coronary artery disease, DVT of right arm, peritonitis while she was on peritoneal dialysis, anemia due to chronic kidney disease. Physical Examination: Vital Signs: Temperature 98.6, pulse 95, respiratory rate 18, blood pressure 178/95, height 5 feet 7-1/2 inches, weight 140 pounds. General: Awake, alert, oriented, not in distress. HEENT: Head atraumatic, normocephalic. Conjunctivae nonerythematous. Sclerae white. Mouth, no thrush or edema noted. Ears/Nose, no mass, lesion, discharge noted. Neck: Supple. No JVD, lymph nodes, bruit, thyromegaly noted. Lungs: Diminished air entry in lower lung cervantes. Not using accessory muscles of respiration. Heart: Normal heart sounds, no murmur or gallop. Abdomen: Soft, bowel sounds normal. No guarding, rigidity, tenderness, mass, hepatosplenomegaly, distention, or bruit noted. Extremities: No leg edema. No calf tenderness. Skin: No rash, ulcer, cellulitis. Lymphatics: No lymph node enlargement in neck, supraclavicular, infraclavicular region. Neuro: No focal neurological deficit. Chest: Unremarkable. External Genitalia: Deferred. Rectal: Deferred. Laboratory Data: White count 6.1, hemoglobin 10, platelets 238. INR 1.17. Sodium 137, potassium 3.4, chloride 102, bicarb 27, BUN 19, creatinine 4.40, glucose 93. Liver function tests unremarkable. Troponin 0.12, 0.11, and 0.10 on 3 different cardiac enzymes. Urinalysis negative. Chest x-ray shows evidence of pleural effusion and electrocardiogram; normal sinus rhythm, T-wave abnormality. Impression: 1. Congestive heart failure, chronic, systolic, with acute exacerbation. 2. End-stage renal disease, on hemodialysis. 3. Anemia due to chronic kidney disease. 4. Hypertension. 5. Coronary artery disease. 6. Diabetes mellitus. 7. Pleural effusion. Plan: We will admit the patient to hospital for further evaluation and management of this problem. The patient is appropriate for inpatient and is expected to spend 2 midnights in hospital. Home medications will be continued per order. We will consult Nephrology and consult Pulmonary Service. Details and plan of treatment discussed with her. In past she did not require any thoracentesis and will see what Dr. Jurado has to say about it this time. She is not on any diabetes medications and will get HgA1c to evaluate level of her diabetes status. Monitor blood pressure and make adjustment if needed. VINCENT/MODL Voice ID: [id number] JERRY
[2017-11-15 05:35] LABS: Absolute Lymphocytes (CBC) 1.1 K/uL (0.7-4.9); Absolute Monocytes 0.7 K/uL (0.1-1.3); Absolute Neutrophil 5.2 K/uL (1.8-8.0); Basophils % 0.8 % (0-1.3); Hematocrit 25.7 % (36.0-45.0); Lymphocytes % 15.1 % (15.3-44.8); MPV 8.7 fL (7.6-11.3); Monocytes % 9.5 % (3.3-12.3); RBC Red Blood Cell Count 2.76 M/uL (3.86-4.86)
[2017-11-15 06:13] LABS: Potassium 4.2 mmol/L (3.5-5.1)
[2017-11-15] MEDS ORDERED: NA CHLORIDE 0.9% 1,000 ML IV PRN (08:13)
[2017-11-15] MEDS ORDERED: MANNITOL 25% 12.5 GM/50 ML VIAL IV PRN (08:13)
--- NOTE | 2017-11-15 08:52 | RAD REPORT ---
EXAM DESCRIPTION: Joe Single View11/15/2017 6:11 am CLINICAL HISTORY: Chest pain COMPARISON: November 14, 2017 FINDINGS: No significant change has occurred in the bilateral pleural effusions , bilateral pulmona ry opacities and cardiomegaly. Central venous catheter remains in place IMPRESSION: No change since the prior exam
[2017-11-15] MEDS: FUROSEMIDE 20 MG/ 2ML VIAL IV SCH ×2 (08:59→17:00)
[2017-11-15] MEDS: HYDRALAZINE HCL 10 MG TABLET PO SCH ×3 (09:00→21:00)
[2017-11-15] MEDS: CALCITROL 0.25 MCG CAP PO SCH (09:00)
[2017-11-15] MEDS: PREDNISOLONE 1% OPTH SOLN 5ML OPTH SCH ×4 (09:00→19:54)
[2017-11-15] MEDS: GABAPENTIN 100 MG CAP PO SCH ×2 (09:00→19:53)
[2017-11-15] MEDS ORDERED: ALBUMIN HUMAN 25% 50 ML IV SCH (09:00)
[2017-11-15] MEDS: VITAMIN D 5,000 UNIT CAP PO SCH (09:00)
[2017-11-15] MEDS: NIFEDIPINE XL 90 MG TABLET PO SCH ×3 (09:00→21:00)
--- NOTE | 2017-11-15 12:18 | P.CNS ---
Date of Consult: 11/15/17 Reason for Consult: Pleural effusion Chief Complaint: Cough and shortness of breath History of Present Illness: Patient is 47 years of age on end-stage renal disease admitted with 2 week history of cough 2 day history of shortness of breath she had dialysis on Monday went to the emergency room for the possibility of pneumonia and was admitted denies any fever chills or chest pain feeling better today patient has bilateral pleural effusions which are chronic Allergies tramadol Allergy (Mild, Verified 12/20/16 09:53) Unknown Home Medications: Gabapentin [Neurontin*] 2 cap PO BID 03/09/17 Nifedipine [Nifedipine ER] 90 mg PO BID 08/22/17 Hydralazine [Apresoline*] 10 mg PO BID 11/14/17 Prednisolone Acetate 1 gtt OPTH QID 11/14/17 - Past Medical/Surgical History Diabetic: Yes -: HTN -: DM-2 -: Dyslipidemia -: anemia -: esrd -: hysterectomy -: x2 -: king martínez (2016) - Family History Mother Medical History: Hypertension Father Medical History: Heart disease, Hypertension, Diabetes - Social History Smoking Status: Never smoker Alcohol use: Yes CD- Drugs: No Caffeine use: Yes Place of Residence: Home Review of Systems 10-point ROS is otherwise unremarkable General: Weakness Respiratory: Cough, Shortness of Breath Physical Examination Temp Pulse Resp BP Pulse Ox 97.7 F 96 H 18 166/88 H 95 11/15/17 08:00 11/15/17 08:00 11/15/17 08:00 11/15/17 08:00 11/15/17 08:00 General: Alert, Oriented x3 HEENT: Atraumatic Neck: Supple Respiratory: Clear to auscultation bilaterally Cardiovascular: No edema, Normal S1 S2 Gastrointestinal: Normal bowel sounds, Soft and benign Laboratory Data (last 24 hrs) 11/14/17 11:40: WBC 6.1, Hgb 10.0 L, Hct 29.8 L, Plt Count 238 11/14/17 11:40: Sodium 137, Potassium 3.4 L, BUN 19 H, Creatinine 4.40 H, Glucose 93, Magnesium 2.2, Total Bilirubin 0.6, AST 19, ALT 20, Alkaline Phosphatase 83 - Problems (1) Pleural effusion Current Visit: Yes Status: Acute Plan: Patient is 47 years of age admitted with a cough for the past 2 weeks shortness of breath she has bilateral pleural effusions which are chronic patient has diastolic dysfunction normal left ventricular function BNP is very elevated white count normal mildly anemic blood pressure is only mildly elevated elevated oxygenation satisfactory splint complaining of some postnasal drainage denies any symptoms of acid reflux trial of bronchodilators and nasal steroids
[2017-11-15] MEDS: SEVELAMER CARBONATE 800 MG TABLET PO SCH ×2 (12:43→17:00)
[2017-11-15] MEDS: DULERA 200/5 (MOMETASONE/FORMOTEROL) INHALER IH SCH ×2 (12:43→19:55)
[2017-11-15] MEDS: FLUTICASONE 50MCG NASAL SPRAY NAS SCH (12:43)
[2017-11-15] MEDS: IPRATROPIUM BROM 0.5MG/2.5ML NEB PRN (12:53)
[2017-11-15] MEDS: ALBUTEROL 2.5 MG/3 ML NEB SOL NEB PRN (12:53)
[2017-11-15 14:47] VITALS: BMI 21.9
[2017-11-15] MEDS ORDERED: ENSURE HIGH PROTEIN 237 ML CAN PO PRN (15:29)
[2017-11-15] MEDS: EPOETIN ALFA 10,000 UNIT/ML VIAL IV SCH (16:26)
--- NOTE | 2017-11-15 17:53 | EKG ---
Test Date: 2017-11-15 Test Time: 07:21:48 Stator Plate Washer: CHAPIN MEASUREMENT RESULTS: Intervals: Rate: 93 GA: 110 QRSD: 92 QT: 370 QTc: 460 [place]: P: 49 GA: 110 QRS: -21 T: -85 INTERPRETIVE STATEMENTS: Sinus rhythm with short GA Possible Left atrial enlargement Nonspecific T wave abnormality Prolonged QT Abnormal ECG Compared to ECG 11/14/2017 11:21:03 Short GA interval now present Possible ischemia no longer present T-wave abnormality still present Electronically Signed On 11-15-17 17:50:56 CDT by Yovany Dewey
[2017-11-15] MEDS: CARVEDILOL 25 MG TAB PO SCH (21:45)
--- NOTE | 2017-11-15 21:46 | P.CNS ---
Date of Consult: 11/15/17 Reason for Consult: ESRD Requesting Physician: Vasile Schofield Chief Complaint: Cough and shortness of breath History of Present Illness: 47 yo BF CKD, HTN presented to the ER with several days of moderate, progressive dyspnea in the setting of CHF. Associated cough. Some relief with dialysis. Feeling better today. A 47-year-old female patient with end-stage renal disease and multiple other comorbidities, goes for dialysis Monday, , Monday, and as of last few days she was really having trouble with shortness of breath and today she went for her dialysis. She finished her dialysis session, and after she got done with dialysis, she was asked to come to emergency room because of her shortness of breath. Her dialysis did help her little bit. She denies any fever, but has been having some cough, congestion, and coughing up some yellowish-colored mucus in last few days. No vomiting. No diarrhea. After she was evaluated in ER, she was admitted to the hospital. I saw her this evening. Her 2 sons were present at bedside. 11:15 This 47 yrs old Black Female presents to ER via Ambulatory with complaints of Chest heather Congestion, Productive Cough. 11:15 The patient or guardian reports cough, difficulty breathing. Onset: The heather symptoms/episode began/occurred 4 day(s) ago. Severity of symptoms: At their worst the symptoms were mild, moderate, in the emergency department the symptoms are unchanged. Modifying factors: The symptoms are alleviated by nothing, the symptoms are aggravated by nothing. Associated signs and symptoms: The patient has no apparent associated signs or symptoms. The patient has experienced similar episodes in the past, a few times. Allergies tramadol Allergy (Mild, Verified 12/20/16 09:53) Unknown Home medications list reviewed: Yes Home Medications: Gabapentin [Neurontin*] 2 cap PO BID 03/09/17 Nifedipine [Nifedipine ER] 90 mg PO BID 08/22/17 Hydralazine [Apresoline*] 10 mg PO BID 11/14/17 Prednisolone Acetate 1 gtt OPTH QID 11/14/17 - Past Medical/Surgical History Diabetic: Yes -: HTN -: DM-2 -: Dyslipidemia -: anemia -: esrd -: hysterectomy -: x2 -: king martínez (2016) - Family History Mother Medical History: Hypertension Father Medical History: Heart disease, Hypertension, Diabetes - Social History Smoking Status: Never smoker Alcohol use: Yes CD- Drugs: No Caffeine use: Yes Place of Residence: Home Review of Systems 10-point ROS is otherwise unremarkable General: Weakness, Malaise Respiratory: Cough, Shortness of Breath Neurological: Weakness Physical Examination Temp Pulse Resp BP Pulse Ox 97 F 105 H 18 186/101 H 96 11/15/17 12:00 11/15/17 19:53 11/15/17 12:00 11/15/17 19:53 11/15/17 12:00 General: In no apparent distress, Oriented x3, Cooperative HEENT: Mucous membr. moist/pink Respiratory: Normal air movement, Crackles/rales Cardiovascular: No edema, Normal pulses, No rubs Gastrointestinal: Soft and benign, Non-distended, No guarding Musculoskeletal: No clubbing, No contractures Integumentary: No rashes, No cyanosis Neurological: Normal speech Blood work reviewed in the chart. Na 140; K 4.2 Imagings Data: EXAM DESCRIPTION: Joe Single View11/15/2017 6:11 am CLINICAL HISTORY: Chest pain COMPARISON: November 14, 2017 FINDINGS: No significant change has occurred in the bilateral pleural effusions , bilateral pulmonary opacities and cardiomegaly. Central venous catheter remains in place IMPRESSION: No change since the prior exam Conclusions/Impression: A/ A/C Systolic CHF with pleural effusions. ESRD on HD TTS. HTN with CKD. Anemia in CKD. DM II with CKD. CARMELITA/ Secondary HyperPTH. P/ Continue current POC and medications. Arrange for an extra HD today with [facility]. Next HD . Start Coreg. Restart home medications as indicated including vitamin d and binders. No NSAIDs. AM labs. Daily weight. Thank you kindly for the consultation.
--- NOTE | 2017-11-15 23:16 | PN ---
Date of Progress Note: 11/15/2017 Subjective: The patient was seen this morning for followup. No new complaints or problems reported by patient. Her cough and shortness of breath were better overnight. Objective: Vital Signs: Reviewed. HEENT: Unremarkable. Lungs: Bilateral equal entry in the upper lung zones and lower lung zones, diminished air entry unch anged from yesterday. Not using any accessory muscles of respiration. Heart: Sounds normal. Abdomen: Soft. Bowel sounds normal. No guarding, rigidity, tenderness, or distention. Extremities: No leg edema. Laboratory Data: White count 7.2, hemoglobin 8.6, and platelets 246. Sodium 140, potassium 4.2, chl oride 103, bicarb 28, BUN 30, creatinine 6.70, and glucose 100. ProBNP 137,656. Impression: 1.Congestive heart failure, chronic, systolic, with acute exacerbation. 2.Bilateral pleural effusion. 3.End-stage renal disease, on hemodialysis. 4.Hypertension. 5.Diabetes mellitus. 6.Coronary artery disease. 7.Anemia due to chronic kidney disease. Plan: Continue current medications. Continue to follow with reel and rewinder operator and reel and rewinder operator tari morales to do another short session of dialysis today. The patient will have her usual scheduled dialysis tomorrow. We will follow up with aircraft cleaner for pleural effusion to see if any thoracentesis is indicated at this point or not. Possible discharge to go home tomorro w. VINCENT/MODFrancine Voice ID: [id number] Report ID: [id number]
[2017-11-16] MEDS: CARVEDILOL 25 MG TAB PO SCH (09:00)
[2017-11-16] MEDS: HYDRALAZINE HCL 10 MG TABLET PO SCH ×2 (09:00→12:07)
[2017-11-16] MEDS: FUROSEMIDE 20 MG/ 2ML VIAL IV SCH ×3 (09:00→17:00)
[2017-11-16 09:23] VITALS: O2SAT 95
[2017-11-16] MEDS: NIFEDIPINE XL 90 MG TABLET PO SCH (09:26)
[2017-11-16] MEDS: CALCITROL 0.25 MCG CAP PO SCH (09:27)
[2017-11-16] MEDS: SEVELAMER CARBONATE 800 MG TABLET PO SCH ×3 (09:27→17:00)
[2017-11-16] MEDS: VITAMIN D 5,000 UNIT CAP PO SCH (09:27)
[2017-11-16] MEDS: GABAPENTIN 100 MG CAP PO SCH (09:28)
[2017-11-16] MEDS: PREDNISOLONE 1% OPTH SOLN 5ML OPTH SCH ×3 (09:29→17:00)
[2017-11-16] MEDS: FLUTICASONE 50MCG NASAL SPRAY NAS SCH (09:29)
[2017-11-16] MEDS: DULERA 200/5 (MOMETASONE/FORMOTEROL) INHALER IH SCH (09:30)
[2017-11-16] MEDS: EPOETIN ALFA 10,000 UNIT/ML VIAL IV SCH (15:04)
[2017-11-16 17:08] VITALS: BP 176/89; TEMP 97.8
--- NOTE | 2017-11-17 05:04 | DS ---
Date of Discharge: 11/16/2017 Disposition: Discharged to go home. Physical Examination: HEENT: Unremarkable. Lung: Bilateral good equal air entry. No rhonchi. No rales. Diminished air entry in lower lung fi elds, unchanged. Heart: Sounds normal. Abdomen: Soft. Bowel sounds normal. No guarding, rigidity, tenderness, or distention. Extremities: No leg edema. Laboratory Data: Upon admission, white count was 6.1, hemoglobin 10, platelets 238. Yesterday, whit e count 7.2, hemoglobin 8.6, platelets 246. Last chemistry yesterday; sodium 140, potassium 4.2, chl oride 103, bicarb 28, BUN 30, creatinine 6.70, glucose 100. Her proBNP 137,656. Discharge Medications Instruction: Continue all prior home medications. Followup: At my office in 2-3 weeks. Hospital Course: A 47-year-old female patient admitted to the hospital with complaints of shortness of breath. Please see dictated H and P for more information. The patient went to dialysis, was havi ng shortness of breath and after her dialysis, shortness of breath continued, so she was asked to com e to emergency room. After she was evaluated in the ER, she was admitted to the hospital. The patie nt had 3 sessions of dialysis during this hospitalization, her shortness of breath problem has improv ed significantly. Pulmonary consultation was obtained from Dr. Jurado because of bilateral pleural effusion and Dr. Jurado has not suggested any thoracentesis. Nephrology consultation was obtained for patient's dialysis needs and she did receive dialysis. Overall, her condition has improved. Ho dc medications were continued and the patient was advised to follow up at office in 2-3 weeks. Final Diagnoses: 1.Congestive heart failure, chronic, systolic, with acute exacerbation. 2.End-stage renal disease, on hemodialysis. 3.Anemia due to chronic kidney disease. 4.Hypertension. 5.Coronary artery disease. 6.Diabetes mellitus. 7.Pleural effusion. VINCENT/MODL Voice ID: [id number] Report ID: [id number]
--- NOTE | 2017-11-17 20:02 | P.PN ---
Date of Service: 11/16/17 Vital Signs Temp Pulse Resp BP Pulse Ox 97.8 F 102 H 18 176/89 H 98 11/16/17 16:00 11/16/17 16:00 11/16/17 16:00 11/16/17 16:00 11/16/17 16:00 Microbiology Results 11/14/17 11:40 Blood - Blood Aerobic Blood Culture - Final 11/14/17 11:40 Blood - Blood Gram Stain - Final 11/14/17 11:40 Blood - Blood Anaerobic Blood Culture - Final 11/14/17 11:40 Blood - Blood Aerobic Blood Culture - Final 11/14/17 11:40 Blood - Blood Gram Stain - Final 11/14/17 11:40 Blood - Blood Anaerobic Blood Culture - Final 11/14/17 11:40 Nasopharnyx Influenza Type A Antigen Screen - Final 11/14/17 11:40 Nasopharnyx Influenza Type B Antigen Screen - Final Assessment/ Plan: Nephrology. Feeling better today. CPS improved without CP or SOB. No acute events overnight. Tolerated HD well. Vitals, medications, blood work and imaging reviewed in the chart. General: In no apparent distress, Oriented x3, Cooperative HEENT: Mucous membr. moist/pink Respiratory: Normal air movement, Minimal right rales Cardiovascular: No edema, Normal pulses, No rubs Gastrointestinal: Soft and benign, Non-distended, No guarding Musculoskeletal: No clubbing, No contractures Integumentary: No rashes, No cyanosis Neurological: Normal speech Blood work reviewed in the chart. Na 140; K 4.2 Imagings Data: EXAM DESCRIPTION: Joe Single View11/15/2017 6:11 am CLINICAL HISTORY: Chest pain COMPARISON: November 14, 2017 FINDINGS: No significant change has occurred in the bilateral pleural effusions , bilateral pulmonary opacities and cardiomegaly. Central venous catheter remains in place IMPRESSION: No change since the prior exam Conclusions/Impression: A/ A/C Systolic CHF with pleural effusions. ESRD on HD TTS. HTN with CKD. Anemia in CKD. DM II with CKD. CARMELITA/ Secondary HyperPTH. P/ Continue current POC and medications. HD today as ordered with UF. Give Epo. No NSAIDs. AM labs. Daily weight. Counseled regarding salt and fluid intake.
== END 2017-11-16 17:30 | disposition home or self-care (01) | DRG 291 ==
LOC: ER 10:25 → ERHOLD 12:05 → 2ND 14:09
PROVIDERS: ADMIT Internal Medicine; ATTEND Internal Medicine
PROC: 5A1D70Z Performance of Urinary Filtration, Intermittent, Less than 6 Hours Per Day (ICD-10-PCS; principal; 2017-11-15)
DX: I13.2 Hypertensive heart and chronic kidney disease with heart failure and with stage 5 chronic kidney disease, or end stage renal disease (principal); I50.23 Acute on chronic systolic (congestive) heart failure; N18.6 End stage renal disease; N25.81 Secondary hyperparathyroidism of renal origin; E11.22 Type 2 diabetes mellitus with diabetic chronic kidney disease; Z99.2 Dependence on renal dialysis; D63.1 Anemia in chronic kidney disease; N25.0 Renal osteodystrophy; I25.10 Atherosclerotic heart disease of native coronary artery without angina pectoris; E78.5 Hyperlipidemia, unspecified; Z88.5 Allergy status to narcotic agent; Z95.5 Presence of coronary angioplasty implant and graft; H54.40 Blindness, one eye, unspecified eye; R09.02 Hypoxemia
CPT/HCPCS: 36415; 71045; 80048; 80076; 81003; 82550; 82553; 82962; 83735; 83880; 84484; 85025; 85610; 85730; 87040; 87205; 87804; 90935; 93005; 94640; 96365; 96368; 99285; J0456; J0696; J1940; J2270; J7606; Q4081

== ENCOUNTER 2018-06-16 10:19 | Emergency (ER) | payer OTHER ==
--- OUTSIDE RECORDS SUMMARY | 2018-06-16 10:21 | XMS REPORT | Clinical Summary ---
:1970 Author Organization [facility] Address [address] [place] [address] Care Team Providers Name Role Phone Vasile Schofield MD Primary Care Provider Sincere Merino Unavailable Allergies Active Allergy Reactions Severity Noted Date Comments Tramadol Nausea And Vomiting, Other (See 06/06/2016 dizziness Comments) Medications Medication Sig Dispensed Refills Start Date End Date Status calcitriol Take 0.25 mcg by 0 Active (ROCALTROL) 0.25 MCG mouth daily. capsule valsartan (DIOVAN) Take 160 mg by 0 Active 160 MG tablet mouth daily. melatonin 3 mg Tab Take 1 tablet (3 10 tablet 0 01/25/2017 Active tablet mg total) by mouth every night as needed. VELPHORO 500 mg Chew Take 1 tablet by 0 01/13/2017 Active mouth 2 (two) times daily . SENSIPAR 30 mg tablet Take 30 mg by 0 12/13/2016 Active mouth daily . apixaban (ELIQUIS) 5 Take 5 mg by 0 Active mg Tab tablet mouth 2 (two) times daily. carvedilol (COREG) 25 Take 1.5 tablets 60 tablet 0 01/13/2017 01/13/2018 MG tablet (37.5 mg total) by mouth 2 (two) times daily. clopidogrel (PLAVIX) Take 1 tablet 30 tablet 2 01/13/2017 01/13/2018 75 mg tablet (75 mg total) by mouth daily. Active Problems Problem Noted Date Anemia 02/23/2017 Hydrocephalus 02/23/2017 History of DVT (deep vein thrombosis) 02/22/2017 Headache 02/22/2017 Dizziness 02/22/2017 Nausea & vomiting 02/22/2017 AVF (arteriovenous fistula) 01/25/2017 Overview: Left-01/09/17 Ischemic cardiomyopathy 01/02/2017 Chronic hepatitis C without hepatic coma 07/01/2016 ESRD (end stage renal disease) 06/03/2016 Type 2 diabetes mellitus with complication 06/03/2016 Essential hypertension 06/03/2016 CAD (coronary artery disease) Overview: Cath 06/03: LAD:Non critical CAD: mid 40% , 60% distal //dominant L Cx with 90 % mid-, 80% OM2 and OM3 disease); s/p mid LCx PCI (06/06) Encounters Date Type Specialty Care Team Description 09/05/2017 Documentation Transplant Araceli Reid RN 09/04/2017 Abstract Transplant Hector Poe RN 08/16/2017 Telephone Transplant Rocío Sands Appointment 08/09/2017 Telephone Transplant Rocío Sands Appointment 07/10/2017 Orders Only Transplant Hector Poe RN Awaiting organ transplant status (Primary Dx); Pre-transplant evaluation for heart transplant; Ischemic cardiomyopathy 07/03/2017 Telephone Transplant Rocío Sands Appointment after 06/15/2017 Social History Tobacco Use Types Packs/Day Years Used Date Never Smoker Smokeless Tobacco: Never Used Alcohol Use Drinks/Week oz/Week Comments No Sex Assigned at Date Recorded Not on file Job Start Date Occupation Industry Not on file Not on file Not on file Travel History Travel Start Travel End No recent travel history available. Last Filed Vital Signs Not on file Plan of Treatment Not on file Implants Implanted Type Area Swimming Teacher Device Shelf Model / Identifier Expiration Serial / Date Lot Closure Sys Perclose Progl 6fr [id number] - [id number] Cardiovascular N/A: Groin BOWENS 12/10/2017 [id number] / Implanted: Qty: 1 on 06/06/2016 by Robinson Vigil MD LAB:[facility] DEV / [id number] Promus Premier Stents-Coronary N/A: [place] 08/16/2017 [id number] / Implanted: Qty: 1 on 06/06/2016 by Robinson Vigil MD Coronary [employer] / [id number] Synergy Stent 2.5mm X 16mm [place] 08/16/2017 [id number] / Implanted: Qty: 1 on 06/03/2016 by Robinson Vigil MD [employer] / [id number] Perclose Proglide Closure Device BOWENS 12/10/2017 [id number] / Implanted: Qty: 1 on 06/03/2016 by Robinson Vigil MD VASCULAR / DEVICE [id number] Results Not on fileafter 06/15/2017 Insurance Payer Benefit Plan / Group Subscriber ID Type Phone Address MEDICARE MEDICARE A B xxxxxxxxxx Medicare MEDICAID [place] xxxxxxxxx Medicaid [employer] [facility] xxxxxxxxx Transplants [facility] - [facility]GD CARE ONLY Advance Directives For more information, please contact:[address] [phone] Code Status Date Activated Date Inactivated Comments Full Code 02/23/2017 12:01 AM 02/24/2017 9:04 AM This code status was determined by: Patient Full Code 01/08/2017 7:45 PM 01/14/2017 5:14 AM This code status was determined by: Patient Full Code 01/01/2017 2:58 PM 01/08/2017 7:45 PM This code status was determined by: Patient Full Code 06/06/2016 8:13 PM 06/09/2016 12:31 PM This code status was determined by: Patient Full Code 06/03/2016 10:44 AM 06/06/2016 8:13 PM This code status was determined by: Patient
--- OUTSIDE RECORDS SUMMARY | 2018-06-16 10:23 | XMS REPORT | Continuity of Care Document ---
:1970 Author Organization Interface Problems Problem Status Onset Classification Date Comments Source Date Reported NOSE BLEED Active [facility] 6 Yovani UNK Active [facility] 6 Discharge 06/20/2015 [facility] Diagnosis: 6 N&V VOMITING/CHIL Active [facility] LS 6 Discharge 09/01/2014 [facility] Diagnosis: 5 Acute headache VOMITING Active [facility] 5 Diabetes Resolved Problem 05/21/2016 [facility] OPID [place] ESRD (<span Active Problem 05/21/2016 ID="[id number] [facility] 545">Confirme OPID d</span>) [place] H/O: migraine Resolved Problem 05/21/2016 [facility] [place] Heartburn Resolved Problem 05/21/2016 [facility] [place] High blood Resolved Problem 05/21/2016 pressure [facility] OP[facility] [place] SOB (<span Resolved Problem 05/21/2016 ID="[id number] [facility] [id number]">Confirme OPID d</span>) [place] Medications Medication Details Route Status Patient Ordering [...] Flumazenil 0.2 mg, 2 mL, Inactive Route: IVP, 2015 Drug form: INJ, PRN, Dosing Weight 94.119, kg, PRN Benzodiazepine Reversal, Initial dose, Start date: 07/01/15 15:39:00 CDT, Duration: 30 day, Stop date: 07/31/15 15:38:00 CDTNotes: (Same as: Romazicon) Glycopyrrolate 0.2 mg, 1 mL, Inactive Route: IVP, 2015 [facility] Drug form: INJ, Q5Min, Dosing Weight 94.119, kg, PRN Bradycardia, Start date: 07/01/15 15:39:00 CDT, Duration: 3 doses or times, Stop date: Limited # of timesNotes: (Same as: Faith) Diphenhydramine 12.5 mg, 0.25 Inactive mL, Route: 2015 [facility] IVP, Drug form: INJ, Q6H, Dosing Weight 94.119, kg, PRN Itching, Start date: 07/01/15 15:39:00 CDT, Duration: 30 day, Stop date: 07/31/15 15:38:00 CDTNotes: (Same as: Benadryl) Dexamethasone 4 mg, 1 mL, Inactive Route: IVP, 2015 [facility] Drug form: INJ, ONCE, Dosing Weight 94.119, kg, PRN Nausea & Vomiting, Start date: 07/01/15 15:39:00 CDTNotes: Concentration: 4mg/ml Ondansetron 4 mg, Route: Inactive IVP, ONCE, 2015 [facility] Dosing Weight 94.119, kg, PRN Nausea & Vomiting, Start date: 07/01/15 15:39:00 CDT Naloxone 0.04 mg, 0.1 Inactive mL, Route: 2015 [facility] IVP, Drug form: INJ, Q2MIN, Dosing Weight 94.119, kg, PRN Narcotic Reversal, Start date: 07/01/15 15:39:00 CDT, Duration: 8 doses or times, Stop date: Limited # of timesNotes: Same as Narcan Metoprolol 1 mg, 1 mL, Inactive Route: IVP, 2015 [facility] Drug form: INJ, Q5Min, Dosing Weight 94.119, kg, PRN Other -See Comment, Start date: 07/01/15 15:39:00 CDT, Duration: 5 doses or times, Stop date: Limited # of timesNotes: (Same as: Lopressor) Push over 2 minutes Hydralazine 10 mg, 0.5 mL, Inactive Route: IVP2015 [facility] Drug form: INJ, Q20Min, Dosing Weight 94.119, kg, PRN Elevated BP, Start date: 07/01/15 15:39:00 CDT, Duration: 2 doses or times, Stop date: Limited # of timesNotes: (Same as: Apresoline) Push over 5 minutes Meperidine 12.5 mg, 0.25 Inactive mL, Route: 2015 [facility] IVP, Drug form: INJ, Q30Min, Dosing Weight 94.119, kg, PRN Other -See Comment, For shivering, Start date: 07/01/15 15:39:00 CDT, Duration: 2 doses or times, Stop date: Limited # of timesNotes: (Same as: Demerol) "Use Precaution in Elderly, Seizure disorders, and Renal impairment" Morphine 4 mg, 2 mL, Inactive Route: IVP2015 [facility] Drug form: INJ, Q5Min, Dosing Weight 94.119, kg, PRN Pain Score 7-10, Start date: 07/01/15 15:39:00 CDT, Duration: 3 doses or times, Stop date: Limited # of timesNotes: (Same as:MORPhine Sulfate) Hydromorphone 0.5 mg, 0.5 Inactive mL, Route: 2015 [facility] IVP, Drug form: INJ, Q5Min, Dosing Weight 94.119, kg, PRN Pain Score 7-10, Start date: 07/01/15 15:39:00 CDT, Duration: 4 doses or times, Stop date: Limited # of times Fentanyl 50 microgram, Inactive 1 mL, Route: 2015 [facility] IVP, Drug form: INJ, Q5Min, Dosing Weight 94.119, kg, PRN Pain Score 7-10, Start date: 07/01/15 15:39:00 CDT, Duration: 2 doses or times, Stop date: Limited # of timesNotes: (Same as: Sublimaze) Preservative free. Oxycodone 10 mg, 2 tab, Inactive Route: PO, 2015 [facility] Drug form: TAB, Q4H, Dosing Weight 94.119, kg, PRN Pain Score 7-10, Start date: 07/01/15 15:39:00 CDT, Duration: 30 day, Stop date: 07/31/15 15:38:00 CDTNotes: (Same as: Roxicodone) Ketorolac 30 mg, 1 mL, Inactive Route: IVP, 2015 [facility] Drug form: INJ, ONCE, Dosing Weight [...] 4 mg, Route: Inactive IVP, ONCE, 2015 [facility] Dosing Weight 94.119, kg, Start date: 07/01/15 12:20:00 CDT, Stop date: 07/01/15 12:20:00 CDT Sodium Chloride 500 mL, Rate: Inactive 0.154 MEQ/ML 25 ml/hr, 2015 [facility] Injectable Infuse over: Solution 20 hr, Route: IV, Dosing Weight 94.119 kg, Total Volume: 500, Start date: 07/01/15 10:21:00 CDT, Duration: 1 day, Stop date: 07/02/15 10:20:00 CDT Calcium Chloride 1,000 mL, Inactive 0.0014 MEQ/ML / Rate: 25 2015 [facility] Potassium Chloride ml/hr, Infuse 0.004 MEQ/ML / over: 40 hr, Sodium Chloride Route: IV, 0.103 MEQ/ML / Dosing Weight Sodium Lactate 94.119 kg, 0.028 MEQ/ML Total Volume: Injectable 1,000, Start Solution date: 07/01/15 10:21:00 CDT, Duration: 30 day, Stop date: 07/31/15 10:20:00 CDT Ancef 2 gm, 100 mL, No Longer Route: IVPB, Active 2015 [facility] Drug form: INJ, PRE OP, Dosing Weight 86.364, kg, Start date: 07/01/15 7:00:00 CDT, Duration: 1 day, Stop date: 07/02/15 6:59:00 CDTNotes: Same as: Ancef Vancomycin 1 gm, Route: No Longer IVPB, PRE OP, Active 2015 [facility] Dosing Weight 86.364, kg, Start date: 07/01/15 7:00:00 CDT, Duration: 1 day, Stop date: 07/02/15 6:59:00 CDTNotes: TIME CRITICAL MEDICATION (Same As: Vancocin) Infusion rate 2001 mg: infuse over 2.5 hours MEDICATION WASTE Product Size: 1000 mg Product Wasted: ___ mg Aspirin 81 MG 81 mg=1 tab, Active Enteric Coated PO, Daily, # 2016 [facility] Tablet 90 tab, 3 Refill(s) NovoLOG 70/30 SUB-Q, ONCE, 0 Active Refill(s) 2015 [facility] Hydralazine 0 Refill(s) Active 2015 [facility] metoprolol BID, 0 Active tartrate Refill(s) 2015 [facility] Ondansetron 8 MG 8 mg=1 tab, Active Oral Tablet PO, BID, 0 2015 [facility] [Zofran] Refill(s) Furosemide 40 MG 40 mg=1 tab, Active Oral Tablet PO, Daily, 0 2015 [facility] Refill(s) Ondansetron 8 MG 8 mg=1 tab, Active Disintegrating PO, TID, PRN 2016 [facility] Tablet [Zofran] Nausea and Vomiting, Dissolve tab under tongue, X 4 day, # 20 tab, 0 Refill(s) Sodium Chloride 1,000 mL, Inactive 0.154 MEQ/ML 1,000 ml/hr, 2016 [facility] Injectable Infuse Over: 1 Solution hr, Route: IV, 1,000, Drug form: INJ, ONCE, Priority: STAT, Dosing Weight 86.364 kg, Start date: 06/17/15 11:40:00, Duration: 1 doses or times, Stop date: 06/17/15 11:40:00 Ondansetron 4 mg, 2 mL, Inactive Route: IVP2015 [facility] Drug form: INJ, ONCE, Dosing Weight 86.364, kg, Priority: STAT, Start date: 06/17/15 11:40:00, Stop date: 06/17/15 11:40:00Notes: (Same as: Zofran) MEDICATION WASTE Product Size: 4 mg Product Wasted: ___ mg Morphine 4 mg, 1 mL, Inactive Route: IVP2015 [facility] Drug form: INJ, ONCE, Dosing Weight 86.364, kg, Priority: STAT, Start date: 06/17/15 11:40:00, Stop date: 06/17/15 11:40:00Notes: (Same as:MORPhine Sulfate) Acetaminophen 300 1 cap, PO, Inactive MG / butalbital 50 Q4H, PRN Pain, 2014 [facility] MG / Caffeine 40 Do not exceed MG Oral Capsule 6 capsules in [Fioricet] 24 hours, # 60 cap, 0 Refill(s)Speci al Instructions: Do not exceed 6 capsules in 24 hours methylPREDNISolone 125 mg, 2 mL, Inactive SODium SUCCinate Route: IVP2014 [facility] Drug form: INJ, ONCE, Dosing Weight 86.364, kg, Priority: STAT, Start date: 08/29/14 15:39:00, Stop date: 08/29/14 15:39:00Notes: (Same as:Solu-MEDROL , A-Methapred) Benadryl 50 mg, 1 mL, Inactive Route: IVP2014 [facility] Drug form: INJ, ONCE, Dosing Weight 86.364, kg, Priority: STAT, Start date: 08/29/14 15:38:00, Stop date: 08/29/14 15:38:00Notes: (Same as: Benadryl) Sodium Chloride 1,000 mL, Inactive 0.154 MEQ/ML 1,000 ml/hr, 2014 [facility] Injectable Infuse Over: 1 Solution hr, Route: IV, 1,000, Drug form: INJ, ONCE, Priority: STAT, Dosing Weight 86.364 kg, Start date: 08/29/14 15:38:00, Duration: 1 doses or times, Stop date: 08/29/14 15:38:00 Reglan 10 mg, 2 mL, Inactive Route: IVP, 2014 [facility] Drug form: INJ, ONCE, Dosing Weight 86.364, kg, Priority: STAT, Start date: 08/29/14 15:38:00, Stop date: 08/29/14 15:38:00Notes: (Same as: Reglan) Allergies, Adverse Reactions, Alerts Substance Category Reaction Severity Reaction Status Date Comments Source type Reported Immunizations Immunization Date Given Site Status Last Updated Comments Source Results Order Name Results Value Reference Date Interpretation Comments Source Range Chest 2 Chest 2 REASON FOR EXAM: Cough. 05/18 [facility] OPID views DX views DX /2016 [facility] COMPARISON: Portable chest x-ray 06/17/2015. Read by: [...] Lvl 126 mg/dL 70 - 99 06/30 [place] [facility] Sodium Lvl 140 meq/L 135 - 145 06/30 [facility] Potassium 4.6 meq/L 3.5 - 5.1 06/30 ES Lvl /2015 [facility] ELECTROLYT BUN 50 mg/dL 7 - 22 06/30 [facility] ES /2015 [facility] ELECTROLYT Creatinine 8.31 mg/dL 0.50 - 04 MH ES Lvl 1.40 /2015 [facility] ELECTROLYT eGFR 6 06/30 Result Comment: [...] is not recommended in the following populations: [facility] 3m2 Individuals with unstable creatinine concentrations, [...] ELECTROLYT AGAP 14.6 meq/L 10.0 - 06/30 MH ES 20.0 /2015 [facility] HEMATOLOGY Lymphocytes 1.2 K/CMM 1.0 - 5.5 06/30 MH # /2016 [facility] HEMATOLOGY Basophils 1.0 % 0.0 - 1.0 06/30 MH /2015 [facility] HEMATOLOGY Segs-Bands # 4.4 K/CMM 1.5 - 8.1 06/30 [facility] HEMATOLOGY Monocytes # 0.5 K/CMM 0.0 - 0.8 06/30 MH [facility] HEMATOLOGY Basophils # 0.1 K/CMM 0.0 - 0.2 / MH [facility] HEMATOLOGY Eosinophils 0.1 K/CMM 0.0 - 0.5 /20 MH # /2016 [facility] HEMATOLOGY Monocytes 8.0 % 2.0 - 12.0 / MH /2015 [facility] HEMATOLOGY Lymphocytes 19.2 % 20.0 - 04 MH 40.0 /2016 [facility] HEMATOLOGY Segs 69.5 % 45.0 - 06/30 MH 75.0 /2016 [facility] HEMATOLOGY Eosinophils 2.3 % 0.0 - 4.0 06/30 MH /2015 [facility] HEMATOLOGY PTT 35.1 s 22.9 - 04 MH 35.8 /2015 [facility] INR 1.09 0.85 - 06/30 MH 1.17 /2015 [facility] PT 14.4 s 12.0 - 06/30 MH 14.7 /2015 [facility] Hgb 9.3 g/dL 12.0 - 06/30 16.0 /2015 [facility] RBC 3.21 M/CMM 4.20 - 04 MH 5.40 /2015 [facility] WBC 6.3 K/CMM 3.7 - 10.4 06/30 [facility] HEMATOLOGY MCV 88.4 fL 80.0 - 06/30 98.0 /2015 [facility] Hct 28.4 % 36.0 - 06/30 48.0 /2015 [facility] Platelet 190 K/CMM 133 - 450 06/30 [facility] RDW 14.9 % 11.5 - 06/30 14.5 /2015 [facility] MCHC 32.7 g/dL 32.0 - 06/30 36.0 /2015 [facility] MCH 28.9 pg 27.0 - 06/30 31.0 /2015 [facility] MPV 8.9 fL 7.4 - 10.4 06/30 [facility] CARDIAC Troponin-I 0.10 ng/mL 0.00 - 04 ENZYMES 0.40 [facility] CHEM PANEL Lipase Lvl 314 unit/L 73 - 393 06/16 [facility] CHEM PANEL B/C Ratio 7 6 - 25 06/16 [facility] CHEM PANEL Globulin 5.4 g/dL 2.0 - 4.0 06/16 [facility] CHEM PANEL A/G Ratio 0.3 0.7 - 1.6 06/16 [facility] CHEM PANEL AGAP 12.1 meq/L 10.0 - 06/16 20.0 [facility] CHEM PANEL eGFR 7 06/16 Result Comment: [...] is not recommended in the following populations: [address] Individuals with unstable creatinine concentrations, including patients [...] AST 45 unit/L 0 - 37 06/16 [facility] CHEM PANEL Albumin Lvl 1.8 g/dL 3.5 - 5.0 06/16 [facility] CHEM PANEL ALT 37 unit/L 0 - 65 06/16 [facility] CHEM PANEL Bili Total 0.3 mg/dL 0.2 - 1.3 06/16 [facility] CHEM PANEL Alk Phos 84 unit/L 39 - 136 06/16 [facility] CHEM PANEL Total 7.2 g/dL 6.4 - 8.4 06/16 [facility] CHEM PANEL Calcium Lvl 8.4 mg/dL 8.5 - 10.5 06/16 [facility] CHEM PANEL Glucose Lvl 106 mg/dL 70 - 99 06/16 [facility] CHEM PANEL Potassium 5.1 meq/L 3.5 - 5.1 06/16 Lvl [facility] CHEM PANEL Chloride Lvl 109 meq/L 95 - 109 06/16 [facility] CHEM PANEL CO2 21 meq/L 24 - 32 06/16 [facility] CHEM PANEL Sodium Lvl 137 meq/L 135 - 145 06/16 [facility] CHEM PANEL Creatinine 7.50 mg/dL 0.50 - 04/ Lvl 1.40 /2015 [facility] CHEM PANEL BUN 52 mg/dL 7 - 22 06/16 [facility] HEMATOLOGY Monocytes # 0.4 K/CMM 0.0 - 0.8 / [facility] HEMATOLOGY Basophils # 0.0 K/CMM 0.0 - 0.2 / [facility] HEMATOLOGY Eosinophils 0.1 K/CMM 0.0 - 0.5 / MH # /2015 [facility] HEMATOLOGY Lymphocytes 27.3 % 20.0 - 04/ MH 40.0 /2015 [facility] HEMATOLOGY Segs 65.3 % 45.0 - 04/ MH 75.0 /2015 [facility] HEMATOLOGY Segs-Bands # 4.4 K/CMM 1.5 - 8.1 06/16 [facility] HEMATOLOGY Basophils 0.5 % 0.0 - 1.0 06/16 /2015 [facility] HEMATOLOGY Eosinophils 1.3 % 0.0 - 4.0 06/16 [facility] HEMATOLOGY Monocytes 5.6 % 2.0 - 12.0 06/16 [facility] HEMATOLOGY Lymphocytes 1.9 K/CMM 1.0 - 5.5 04/ MH # /2016 [facility] HEMATOLOGY Hct 28.8 % 36.0 - 06/16 48.0 /2015 [facility] HEMATOLOGY Hgb 9.3 g/dL 12.0 - 06/16 16.0 /2015 [facility] HEMATOLOGY RBC 3.24 M/CMM 4.20 - 06/16 5.40 /2015 [facility] HEMATOLOGY MCH 28.8 pg 27.0 - 06/16 31.0 /2015 [facility] HEMATOLOGY MCV 88.8 fL 80.0 - 06/16 98.0 /2015 [facility] HEMATOLOGY Platelet 235 K/CMM 133 - 450 06/16 [facility] HEMATOLOGY RDW 15.2 % 11.5 - 06/16 14.5 /2015 [facility] MCHC 32.4 g/dL 32.0 - 06/16 36.0 /2015 [facility] MPV 9.3 fL 7.4 - 10.4 06/16 [facility] WBC 6.8 K/CMM 3.7 - 10.4 06/16 [facility] URINE AND UA Color Yellow Yellow 06/16 STOOL [facility] *NA* (06/17/15 12:02 PM) URINE AND UA Turbidity Clear Clear 06/16 [facility]OL [facility] (06/17/15 12:02 PM) URINE AND UA Leuk Est Negative Negative 06/16 [facility] (06/17/15 12:02 PM) URINE AND UA 0.2 EU/dL 0.1 - 1.0 06/16 [facility] Urobilinogen /2015 [facility] URINE AND UA Blood Moderate Negative 06/16 STOOL [facility] *ABN* (06/17/15 12:02 PM) URINE AND UA Nitrite Negative Negative 06/16 STOOL [facility] (06/17/15 12:02 PM) URINE AND UA Bili Negative Negative 06/16 STOOL [facility] *NA* (06/17/15 12:02 PM) URINE AND UA Glucose 250 mg/dL Negative 06/16 [facility] mg/dL [facility] URINE AND UA Protein >=300 Negative 06/16 [facility] mg/dL mg/dL [facility] URINE AND UA Ketones Negative Negative 06/16 [facility] *NA* (06/17/15 12:02 PM) URINE AND UA pH 6.5 5.0 - 8.0 06/16 [facility] URINE AND UA Spec Grav 1.020 <=1.030 06/16 [facility] URINE AND UA Mucus Few /LPF None Seen 06/16 [facility] /LPF [facility] URINE AND UA Sq Epi Few /LPF Few /LPF 06/16 [facility] URINE AND UA RBC 11-20 /HPF 0 - 2 06/16 [facility] URINE AND UA WBC 6-10 /HPF None Seen 06/16 [facility] /HPF [facility] URINE AND UA Bacteria Few /HPF None Seen 06/16 [facility] /HPF [facility] URINE CHEM U Preg Negative Negative 06/16 [facility] (06/17/15 12:02 PM) Chest Chest 1view Study: Chest 1view DX 06/17/2015 11:44 AM CDT 06/16 - 1view DX DX - [facility] Patient Name: ROSA PINO MR: [id number] Read by: Jose Manuel Waters MD Dictated [...] size near upper limits of normal. SL: [id number] CHEM PANEL A/G Ratio 0.4 0.7 - 1.6 08/29 [facility] CHEM PANEL B/C Ratio 18 6 - 25 08/29 [facility] CHEM PANEL Globulin 5.0 g/dL 2.0 - 4.0 08/29 [facility] CHEM PANEL AGAP 11.8 meq/L 10.0 - 08/29 MH 20.0 [facility] CHEM PANEL eGFR 49 08/29 1Result Comment: [...] is not recommended in the following populations: [address] Individuals with unstable creatinine concentrations, including patients [...] values reflect the clinical guidelines of the [employer]. [facility] CHEM PANEL BUN 27 mg/dL 7 - 22 08/29 [facility] CHEM PANEL Creatinine 1.5 mg/dL 0.5 - 1.4 08/29 Lvl [facility] CHEM PANEL CO2 22 meq/L 24 - 32 08/29 [facility] CHEM PANEL Calcium Lvl 8.7 mg/dL 8.5 - 10.5 08/29 [facility] CHEM PANEL Potassium 3.8 meq/L 3.5 - 5.1 08/29 Lvl [facility] CHEM PANEL Chloride Lvl 110 meq/L 95 - 109 08/29 [facility] CHEM PANEL Sodium Lvl 140 meq/L 135 - 145 08/29 [facility] CHEM PANEL AST 29 unit/L 0 - 37 08/29 [facility] CHEM PANEL Alk Phos 61 unit/L 39 - 136 08/29 [facility] CHEM PANEL Albumin Lvl 1.9 g/dL 3.5 - 5.0 08/29 [facility] CHEM PANEL ALT 39 unit/L 0 - 65 08/29 [facility] CHEM PANEL Total 6.9 g/dL 6.4 - 8.4 08/29 [facility] CHEM PANEL Bili Total 0.3 mg/dL 0.2 - 1.3 08/29 /2014 [facility] HEMATOLOGY Monocytes # 0.6 K/CMM 0.0 - 0.8 08/29 [facility] HEMATOLOGY Lymphocytes 1.9 K/CMM 1.0 - 5.5 08/29 # /2014 [facility] HEMATOLOGY Eosinophils 0.0 K/CMM 0.0 - 0.5 08/29 # /2014 [facility] HEMATOLOGY Basophils # 0.0 K/CMM 0.0 - 0.2 08/29 [facility] HEMATOLOGY Eosinophils 0.1 % 0.0 - 4.0 08/29 [facility] HEMATOLOGY Monocytes 3.8 % 2.0 - 12.0 08/29 [facility] HEMATOLOGY Basophils 0.2 % 0.0 - 1.0 08/29 [facility] HEMATOLOGY Segs-Bands # 13.9 K/CMM 1.5 - 8.1 08/29 [facility] HEMATOLOGY Segs 84.1 % 45.0 - 08/29 75.0 /2014 [facility] Lymphocytes 11.8 % 20.0 - 08/29 40.0 /2014 [facility] HEMATOLOGY PTT 32.7 s 22.9 - 08/29 4Interpretive 35.8 /2014 Data: Heparin [facility] Therapeutic Range: 57 - 92 Seconds HEMATOLOGY PT 12.4 s 12.0 - 08/29 14.7 /2014 [facility] HEMATOLOGY INR 0.93 0.85 - 08/29 3Interpretive Data: RECOMMENDED RANGES FOR PROTIME INR: 1. 2.0-3.0 for most medical and surgical thromboembolic states. [facility] 2.5-3.5 for artificial heart valves and recurrent embolism. INR SHOULD BE USED ONLY FOR PATIENTS ON STABLE ANTICOAGULANT THERAPY. HEMATOLOGY MPV 9.5 fL 7.4 - 10.4 08/29 [facility] HEMATOLOGY MCHC 32.4 g/dL 32.0 - 08/29 36.0 /2014 [facility] RDW 14.2 % 11.5 - 08/29 14.5 /2014 [facility] Platelet 229 K/CMM 133 - 450 08/29 [facility] MCV 87.9 fL 80.0 - 08/29 98.0 /2014 [facility] WBC 16.5 K/CMM 3.7 - 10.4 08/29 [facility] RBC 4.32 M/CMM 4.20 - 08/29 5.40 /2014 [facility] Hgb 12.3 g/dL 12.0 - 08/29 16.0 [facility] Hct 37.9 % 36.0 - 08/29 48.0 /2014 [facility] MCH 28.5 pg 27.0 - 08/29 31.0 [facility] Brain CTA Brain CTA EXAM: BRAIN CTA WITH CONTRAST 08/29 - - [facility] EXAM: BRAIN CT WITHOUT CONTRAST Read by: [...] [facility] Respitory Rate 18 07/01/2015 [facility] Systolic (mm Hg) 159 07/01/2015 [facility] Diastolic (mm Hg) 99 07/01/2015 [facility] Respitory Rate 18 07/01/2015 [facility] Systolic (mm Hg) 160 07/01/2015 [facility] Diastolic (mm Hg) 100 07/01/2015 [facility] Systolic (mm Hg) 158 07/01/2015 [facility] Diastolic (mm Hg) 102 07/01/2015 [facility] Respitory Rate 18 07/01/2015 [facility] Temperature Oral (F) 98.2 F 07/01/2015 [facility] Heart Rate 112 07/01/2015 [facility] BMI Calculated 32.5 06/30/2015 [facility] Height 170.18 cm 06/30/2015 [facility] Weight 94.119 06/30/2015 [facility] Heart Rate 89 06/17/2015 [facility] Temperature Oral (F) 98.0 F 06/17/2015 [facility] Respitory Rate 20 06/17/2015 [facility] Systolic (mm Hg) 132 06/17/2015 [facility] Diastolic (mm Hg) 88 06/17/2015 [facility] Weight 86.364 06/17/2015 [facility] Heart Rate 103 06/17/2015 [facility] Respitory Rate 22 06/17/2015 [facility] Systolic (mm Hg) 173 06/17/2015 [facility] Diastolic (mm Hg) 122 06/17/2015 [facility] BMI Calculated 28.95 06/17/2015 [facility] Height 172.72 cm 06/17/2015 [facility] Temperature Oral (F) 98.2 F 06/17/2015 [facility] Systolic (mm Hg) 137 08/29/2014 [facility] Diastolic (mm Hg) 91 08/29/2014 [facility] Temperature Oral (F) 98.3 F 08/29/2014 [facility] Heart Rate 91 08/29/2014 [facility] Respitory Rate 18 08/29/2014 [facility] Respitory Rate 20 08/29/2014 [facility] Heart Rate 89 08/29/2014 [facility] Systolic (mm Hg) 174 08/29/2014 [facility] Diastolic (mm Hg) 102 08/29/2014 [facility] Weight 86.364 08/29/2014 [facility] BMI Calculated 28.95 08/29/2014 [facility] Heart Rate 97 08/29/2014 [facility] Respitory Rate 18 08/29/2014 [facility] Systolic (mm Hg) 163 08/29/2014 [facility] Diastolic (mm Hg) 113 08/29/2014 [facility] Temperature Oral (F) 98.3 F 08/29/2014 [facility] Height 172.72 cm 08/29/2014 [facility] Encounters Location Location Encounter Encounter Reason Attending ADM DC Status Source Details Type Number For Provider Date Date [facility] [id number] Kizzy 08/29 08/30 [facility] [place] /2014 [facility] [place] [id number] Woody 06/16 06/16 [facility] /2015 [facility] OBS Day [id number] Alexandre 06/30 06/30 [facility] /2015 [facility] [place] [id number] Latia Sarah 08/04 08/04 [facility] /2015 [facility] Outpt Diag [id number] Casey 05/18 05/19 [facility] Ryan /2016 [facility] Procedures Procedure Code Date Perfomer Comments Source Cholecystectomy [id number] [facility] 5 Cholecystectomy [id number] [facility] [place] Cholecystectomy [id number] [facility] 5 Abdominal [id number] [facility] hysterectomy CS - section [id number] [facility] Abdominal [id number] [facility] hyste[facility] [place] CS - section [id number] [facility] [place] Abdominal [id number] [facility] hysterectomy Abdominal [id number] [facility] hysterectomy CS - section [id number] [facility]
--- OUTSIDE RECORDS SUMMARY | 2018-06-16 10:28 | XMS REPORT ---
:1970 [facility] Yovani Pearl [address] [place] [id number] Care Team Providers Name Role Phone UNKNOWN, [...] Blood Gas (test 0.7 mmol/L code=BGLA) HEMOGLOBIN [id number] 08:30:00 Test Item Value Reference Range Comments HEMOGLOBIN A1C (BEAKER) (test sfcx=662) 5.3 % 4.3-6.1 POCT-GLUCOSE [id number] 07:28:00 Test Item Value Reference Range Comments POC-GLUCOSE METER (BEAKER) 78 mg/dL 70-110 TESTED AT [address] (test zyqs=6050) [place] [address] POCT-GLUCOSE [id number] 20:51:00 Test Item Value Reference Range Comments POC-GLUCOSE METER (BEAKER) 49 mg/dL 70-110 Will Repeat Test/TESTED AT (test izqm=9617) [place] [id number] POCT-GLUCOSE [id number] 18:20:00 Test Item Value Reference Range Comments POC-GLUCOSE METER (BEAKER) 188 mg/dL 70-110 TESTED AT [address] (test aahh=2875) [place] [address] T4, [id number] 17:50:00 Test Item Value Reference Range Comments FREE T4 (BEAKER) (test wgbj=139) 1.31 ng/dL 0.70-1.48 SEDIMENTATION [id number] 17:38:00 Test Item Value Reference Range Comments SEDIMENTATION RATE, ERYTHROCYTE (BEAKER) (test 103 mm/HR 0-20 bfne=410) TSH/FREE T4 IF [id number] 16:25:00 Test Item Value Reference Range Comments THYROID STIMULATING HORMONE (BEAKER) (test 0.30 uIU/mL 0.35-4.94 vsko=535) CREATINE KINASE (CK), TOTAL AND [id number] 16:08:00 Test Item Value Reference Range Comments CREATINE KINASE TOTAL (BEAKER) (test ixsr=228) 111 U/L 29-200 CREATINE KINASE-MB (BEAKER) (test imft=756) 4.8 ng/mL 0.0-6.6 CREATINE KINASE-MB INDEX (BEAKER) (test ojln=883) 4.3 % CK-MB Reference Range:<6.7 Normal6.7-10.0 Borderline>10.0 AbnormalTROPONIN [id number] 16:08:00 Test Item Value Reference Range Comments TROPONIN I (BEAKER) (test kkor=391) 0.10 ng/mL 0.00-0.03 Troponin I (TnI) levels [...] and persistent tachyarrhythmia.CREATINE KINASE (CK), TOTAL AND [id number] 16:07:00 Test Item Value Reference Range Comments CREATINE KINASE TOTAL (BEAKER) (test nfwx=126) 100 U/L 29-200 CREATINE KINASE-MB (BEAKER) (test ptcy=402) 3.7 ng/mL 0.0-6.6 CREATINE KINASE-MB INDEX (BEAKER) (test ldlq=676) 3.7 % CK-MB Reference Range:<6.7 Normal6.7-10.0 Borderline>10.0 AbnormalTROPONIN [id number] 16:07:00 Test Item Value Reference Range Comments TROPONIN I (BEAKER) (test ugru=935) 0.10 ng/mL 0.00-0.03 Troponin I (TnI) levels [...] failure, acidosis, acute neurological disease, and persistent tachyarrhythmia.[id number] 15:59:00 Test Item Value Reference Range Comments PHOSPHORUS (BEAKER) (test zdbl=796) 5.1 mg/dL 2.3-4.7 LIPID [id number] 15:59:00 Test Item Value Reference Range Comments TRIGLYCERIDES (BEAKER) (test htzk=428) 64 mg/dL CHOLESTEROL (BEAKER) (test ochv=311) 112 mg/dL HDL CHOLESTEROL (BEAKER) (test azjw=363) 36 mg/dL LDL CHOLESTEROL CALCULATED (BEAKER) (test 63 mg/dL eusc=877) Triglyceride Reference Range: Low Risk <150 Borderline 150- 199 High Risk 200-499 Very High Risk >=500Cholesterol Reference Range: Low Risk <200 Borderline 200-239 High Risk > 240HDL Cholesterol Reference Range: Low Risk >=60 High Risk <40LDL Cholesterol Reference Range: Optimal <100 Near Optimal 100-129 Borderline 130-159 High 160-189 Very High >=190HEPATIC FUNCTION [id number] 15:59:00 Test Item Value Reference Range Comments TOTAL PROTEIN (BEAKER) (test znbj=210) 6.6 gm/dL 6.0-8.3 ALBUMIN (BEAKER) (test xjee=5376) 2.5 g/dL 3.5-5.0 BILIRUBIN TOTAL (BEAKER) (test mmrq=731) 0.4 mg/dL 0.2-1.2 BILIRUBIN DIRECT (BEAKER) (test qqvj=431) 0.1 mg/dL 0.1-0.5 ALKALINE PHOSPHATASE (BEAKER) (test fnbm=309) 82 U/L 40-150 AST (SGOT) (BEAKER) (test lkdk=171) 16 U/L 5-34 ALT (SGPT) (BEAKER) (test jvft=736) 10 U/L 6-55 C-REACTIVE [id number] 15:59:00 Test Item Value Reference Range Comments C-REACTIVE PROTEIN (BEAKER) (test oohg=833) 0.52 mg/dL 0.00-0.50 BASIC METABOLIC [id number] 15:59:00 Test Item Value Reference Range Comments SODIUM (BEAKER) (test 140 meq/L 136-145 pfac=767) POTASSIUM (BEAKER) (test 4.4 meq/L 3.5-5.1 qgps=596) CHLORIDE (BEAKER) (test 110 meq/L 98-107 rtiq=563) CO2 (BEAKER) (test 21 meq/L 22-29 hjvj=225) BLOOD UREA NITROGEN 54 mg/dL 7-21 (BEAKER) (test avtr=680) CREATININE (BEAKER) (test 9.62 mg/dL 0.57-1.25 dtmv=220) GLUCOSE RANDOM (BEAKER) 87 mg/dL 70-105 (test geju=245) CALCIUM (BEAKER) (test 8.0 mg/dL 8.4-10.2 subz=831) EGFR (BEAKER) (test 5 mL/min/1.73 sq m ESTIMATED GFR IS NOT vwwg=4878) ACCURATE CREATININE CLEARANCE IN PREDICTING GLOMERULAR FILTRATION RATE. ESTIMATED GFR IS NOT APPLICABLE FOR DIALYSIS PATIENTS. CBC W/PLT COUNT & AUTO [id number] 15:16:00 Test Item Value Reference Range Comments WHITE BLOOD CELL COUNT (BEAKER) (test lpci=867) 4.3 K/ L 3.5-10.5 RED BLOOD CELL COUNT (BEAKER) (test jmpv=815) 2.57 M/ L 3.93-5.22 HEMOGLOBIN (BEAKER) (test nalo=814) 7.3 GM/DL 11.2-15.7 HEMATOCRIT (BEAKER) (test guxm=853) 23.4 % 34.1-44.9 MEAN CORPUSCULAR VOLUME (BEAKER) (test ywxp=178) 91.1 fL 79.4-94.8 MEAN CORPUSCULAR HEMOGLOBIN (BEAKER) (test 28.4 pg 25.6-32.2 digq=395) MEAN CORPUSCULAR HEMOGLOBIN CONC (BEAKER) (test 31.2 GM/DL 32.2-35.5 gxjf=417) RED CELL DISTRIBUTION WIDTH (BEAKER) (test 15.1 % 11.7-14.4 rujb=534) PLATELET COUNT (BEAKER) (test cwaj=857) 184 K/CU MM 150-450 MEAN PLATELET VOLUME (BEAKER) (test npcc=467) 10.8 fL 9.4-12.3 NUCLEATED RED BLOOD CELLS (BEAKER) (test 0 /100 WBC 0-0 ewjz=309) NEUTROPHILS RELATIVE PERCENT (BEAKER) (test 58 % mime=629) LYMPHOCYTES RELATIVE PERCENT (BEAKER) (test 25 % qzwh=494) MONOCYTES RELATIVE PERCENT (BEAKER) (test 13 % wdxs=991) EOSINOPHILS RELATIVE PERCENT (BEAKER) (test 4 % glsb=355) BASOPHILS RELATIVE PERCENT (BEAKER) (test 1 % lzpg=825) NEUTROPHILS ABSOLUTE COUNT (BEAKER) (test 2.50 K/ L 1.56-6.13 npea=914) LYMPHOCYTES ABSOLUTE COUNT (BEAKER) (test 1.07 K/ L 1.18-3.74 oull=307) MONOCYTES ABSOLUTE COUNT (BEAKER) (test 0.55 K/ L 0.24-0.36 ccur=733) EOSINOPHILS ABSOLUTE COUNT (BEAKER) (test 0.17 K/ L 0.04-0.36 gkjv=249) BASOPHILS ABSOLUTE COUNT (BEAKER) (test 0.02 K/ L 0.01-0.08 rzmj=922) IMMATURE GRANULOCYTES-RELATIVE PERCENT (BEAKER) 0 % 0-1 (test aysc=6074) PROTHROMBIN TIME/[id number] 15:08:00 Test Item Value Reference Range Comments PROTIME (BEAKER) (test jtwg=070) 16.0 seconds 11.7-14.7 INR (BEAKER) (test nofr=742) 1.3 <=5.9 RECOMMENDED COUMADIN/WARFARIN INR THERAPY RANGESSTANDARD DOSE: 2.0 - 3.0 Includes: PROPHYLAXIS forvenous thrombosis, systemic embolization; TREATMENT for venous thrombosis and/or pulmonary embolus.HIGH RISK: Target INR is 2.5-3.5 for patients with mechanical heart valves.POCT-GLUCOSE [id number] 12:04:00 Test Item Value Reference Range Comments POC-GLUCOSE METER (BEAKER) 187 mg/dL 70-[address] [facility] [address] [facility] (test afkb=5530) [facility] [address] POCT-GLUCOSE [id number] 09:11:00 Test Item Value Reference Range Comments POC-GLUCOSE METER (BEAKER) 83 mg/dL 70-[address] [facility] [address] (test tbjw=3541) [facility] [address] MR, BRAIN, WITHOUT [id number] 00:47:00PT started dialysis 2015Reason for exam:->Sudden onset [...] MDReport Verified Date/Time: 02/23/2017 00:47:16 Reading Location: [address] Body Reading Room AFB CULTURE + [id number] 07: 45:00 Test Item Value Reference Range Comments CULTURE (BEAKER) (test No acid-fast bacilli isolated cdsp=2798) in 42 days AFB SMEAR (BEAKER) (test No acid fast bacilli seen wbnp=349) AFB CULTURE + [id number] 07:45:00 Test Item Value Reference Range Comments CULTURE (BEAKER) (test No acid-fast bacilli isolated hutk=8654) in 42 days AFB SMEAR (BEAKER) (test No acid fast bacilli seen txwm=758) FUNGUS CULTURE + [id number] 18:17:00 Test Item Value Reference Range Comments CULTURE (BEAKER) (test No fungus isolated in 28 days yexn=2024) FUNGUS SMEAR (BEAKER) (test No fungi seen fyfs=3760) FUNGUS CULTURE + [id number] 18:17:00 Test Item Value Reference Range Comments CULTURE (BEAKER) (test No fungus isolated in 28 days oztc=2110) FUNGUS SMEAR (BEAKER) (test No fungi seen qkmm=7432) AFB CULTURE + [id number] 14:52:00 Test Item Value Reference Range Comments CULTURE (BEAKER) (test No acid-fast bacilli isolated dcxl=3254) in 42 days AFB SMEAR (BEAKER) (test No acid fast bacilli seen skyg=616) AB SPECIFICITY CLASS [id number] 10:13:00 Test Item Value Reference Range Comments DATE OF SERUM (BEAKER) (test fkxq=4314) [id number] SERUM # (BEAKER) (test phju=2914) 999599 AB SPECIFICITY CLASS I (BEAKER) (test nxuq=7050) AB SPECIFICITY CLASS [id number] 10:13:00 Test Item Value Reference Range Comments DATE OF SERUM (BEAKER) (test svdl=7600) 527111 SERUM # (BEAKER) (test txog=6632) 610523 AB SPECIFICITY CLASS II (BEAKER) (test See Scanned Report gqfn=6781) HERPES VIRUS ANTIBODY, [id number] 14:21:00 Test Item Value Reference Range Comments HERPES VIRUS IGM (BEAKER) (test Negative HSV 1 IGM=NEGHSV 2 IGM=NEG dmsr=4217) TOXOPLASMA GONDII ANTIBODY, [id number] 14:21:00 Test Item Value Reference Range Comments TOXOPLASMA IGM ANTIBODY (BEAKER) (test rezj=930) Negative FLOW PRA CLASS I AND [id number] 15:15:00 Test Item Value Reference Range Comments DATE OF SERUM (BEAKER) (test ryqa=6456) 070324 SERUM # (BEAKER) (test qxcg=7761) 268632 FLOW PRA CLASS I AND II (test kbbe=9258) See Scanned Report VARICELLA ZOSTER ANTIBODY, [id number] 14:59:00 Test Item Value Reference Range Comments VARICELLA ZOSTER IGG (AL) (BEAKER) (test kfol=7650) 5.8 Al VARICELLA ZOSTER RESULT INTERPRETATIONS: <=0.8 Al Nonreactive: Presumed non-immune to VZV 0.9-1.0 Al Equivocal >=1.1 Al Reactive: Presumed immune to VZVCT, [id number] 14:16:00PT started dialysis 07/12/2015Addendum BeginsREPORT STATUS:A The original report incorrectly states that the procedure was performed with intravenous contrast. In fact, the procedure was performed without intravenous contrast. Signed: Gigi Diaz MDReport Verified Date/Time: 01/13/2017 14: 16:42 ReadingLocation: [facility] B1 C013X Ortho Consult Reading RoomAddendum [...] Verified Date/Time: 01/06/2017 23:49: 19 Reading Location: [facility] D523HBhbwvcd Reading Room CT, CHEST, WITHOUT [id number] 14:16:00PT started dialysis 07/12/2015Addendum BeginsREPORT STATUS:A The original report incorrectly states that the procedure was performed with intravenous contrast. In fact, the procedure was performed without intravenous contrast. Signed: Gigi Diaz MDReport Verified Date/Time: 01/13/2017 14:16:42 ReadingLocation: [facility] C013X Ortho Consult Reading RoomAddendum EndsFINAL REPORT [...] MDReport Verified Date/Time: 01/06/2017 23:49:19 Reading Location: [facility] B1 [id number] Reading Room Electronically signed by: GIGI DIAZ M.D. on 2016 02:16 [facility] METABOL[facility] [id number] 14:06:00 Test Item Value Reference Range Comments SODIUM (BEAKER) (test 135 meq/L 136-145 aehl=908) POTASSIUM (BEAKER) (test 4.1 meq/L 3.5-5.1 fpko=401) CHLORIDE (BEAKER) (test 102 meq/L 98-107 thif=519) CO2 (BEAKER) (test 24 meq/L 22-29 tktv=024) BLOOD UREA NITROGEN 24 mg/dL 7-21 (BEAKER) (test ilzj=241) CREATININE (BEAKER) (test 8.29 mg/dL 0.57-1.25 elkt=619) GLUCOSE RANDOM (BEAKER) 84 mg/dL 70-105 (test sbzk=960) CALCIUM (BEAKER) (test 8.8 mg/dL 8.4-10.2 nhdd=952) EGFR (BEAKER) (test 6 mL/min/1.73 sq m ESTIMATED GFR IS NOT ghal=7451) ACCURATE CREATININE CLEARANCE IN PREDICTING GLOMERULAR FILTRATION RATE. ESTIMATED GFR IS NOT APPLICABLE FOR DIALYSIS PATIENTS. [id number] 14:04:00 Test Item Value Reference Range Comments MAGNESIUM (BEAKER) (test kbez=454) 1.7 mg/dL 1.6-2.6 PROTHROMBIN TIME/[id number] 13:52:00 Test Item Value Reference Range Comments PROTIME (BEAKER) (test epns=625) 16.5 seconds 11.7-14.7 INR (BEAKER) (test kxxc=393) 1.3 <=5.9 RECOMMENDED COUMADIN/WARFARIN INR THERAPY RANGESSTANDARD DOSE: 2.0 - 3.0 Includes: PROPHYLAXIS forvenous thrombosis, systemic embolization; TREATMENT for venous thrombosis and/or pulmonary embolus.HIGH RISK: Target INR is 2.5-3.5 for patients with mechanical heart valves.While on warfarin.CBC (HEMOGRAM ONLY) 2017-01-13 13:43:00 Test Item Value Reference Range Comments WHITE BLOOD CELL COUNT (BEAKER) (test asrd=995) 3.9 K/ L 3.5-10.5 RED BLOOD CELL COUNT (BEAKER) (test ubjd=789) 2.61 M/ L 3.93-5.22 HEMOGLOBIN (BEAKER) (test pgkm=436) 7.5 GM/DL 11.2-15.7 HEMATOCRIT (BEAKER) (test kjzq=852) 23.8 % 34.1-44.9 MEAN CORPUSCULAR VOLUME (BEAKER) (test bnfg=654) 91.2 fL 79.4-94.8 MEAN CORPUSCULAR HEMOGLOBIN (BEAKER) (test 28.7 pg 25.6-32.2 hiff=514) MEAN CORPUSCULAR HEMOGLOBIN CONC (BEAKER) (test 31.5 GM/DL 32.2-35.5 uhdj=417) RED CELL DISTRIBUTION WIDTH (BEAKER) (test 14.2 % 11.7-14.4 lumi=210) PLATELET COUNT (BEAKER) (test rkte=084) 187 K/CU MM 150-450 MEAN PLATELET VOLUME (BEAKER) (test ttxl=804) 11.2 fL 9.4-12.3 NUCLEATED RED BLOOD CELLS (BEAKER) (test 0 /100 WBC 0-0 iieq=384) POCT-GLUCOSE [id number] 07:33:00 Test Item Value Reference Range Comments POC-GLUCOSE METER (BEAKER) 82 mg/dL 70-110 TESTED AT [address] (test nvyx=9754) [facility] [address] POCT-GLUCOSE [id number] 22:10:00 Test Item Value Reference Range Comments POC-GLUCOSE METER (BEAKER) 118 mg/dL 70-110 TESTED AT [address] (test jafs=9549) [facility] [address] POCT-GLUCOSE [id number] 16:58:00 Test Item Value Reference Range Comments POC-GLUCOSE METER (BEAKER) 102 mg/dL 70-110 TESTED AT [address] (test wzln=5860) [place] [address] POCT-GLUCOSE [id number] 07:43:00 Test Item Value Reference Range Comments POC-GLUCOSE METER (BEAKER) 93 mg/dL 70-110 TESTED AT [address] (test lkjx=5010) [place] [address] POCT-GLUCOSE [id number] 21:58:00 Test Item Value Reference Range Comments POC-GLUCOSE METER (BEAKER) 130 mg/dL 70-110 TESTED AT [address] (test bxfy=8371) [place] [address] POCT-GLUCOSE [id number] 17:59:00 Test Item Value Reference Range Comments POC-GLUCOSE METER (BEAKER) 144 mg/dL 70-110 TESTED AT [address] (test ydzc=5261) [place] [address] CYTOMEGALOVIRUS ANTIBODY, [id number] 15:45:00 Test Item Value Reference Range Comments CYTOMEGALOVIRUS IGG ANTIBODY (BEAKER) (test Negative jlnd=304) CYTOMEGALOVIRUS ANTIBODY, [id number] 15:45:00 Test Item Value Reference Range Comments CYTOMEGALOVIRUS IGM ANTIBODY (BEAKER) (test Negative bfuc=629) HERPES VIRUS ANTIBODY, [id number] 15:45:00 Test Item Value Reference Range Comments HERPES VIRUS IGG (BEAKER) (test Positive HSV 1 IGG=POSHSV 2 IGG=POS qsdu=9633) EBV-VCA ANTIBODY, [id number] 15:45:00 Test Item Value Reference Range Comments GIO-NICK VCA IGG (BEAKER) (test ksph=653) Positive EBV-VCA ANTIBODY, [id number] 15:45:00 Test Item Value Reference Range Comments GIO-NICK VCA IGM (BEAKER) (test eksh=600) Negative TOXOPLASMA GONDII ANTIBODY, [id number] 15:45:00 Test Item Value Reference Range Comments TOXOPLASMA GONDII IGG (BEAKER) (test tfya=824) Negative POCT-GLUCOSE [id number] 14:27:00 Test Item Value Reference Range Comments POC-GLUCOSE METER (BEAKER) 108 mg/dL 70-[address] [facility] [address] [facility] (test hljn=9918) [facility] [address] IMMUNOFIXATION ELECTROPHORESIS (YOANNA)2017-01-11 13:52:00 Test Item Value Reference Range Comments IMMUNOGLOBULIN G (IGG) (BEAKER) 2035 mg/dL 540-1822 (test iybs=180) IMMUNOGLOBULIN A (IGA) (BEAKER) 148 mg/dL 63-484 (test rzgz=944) IMMUNOGLOBULIN M (IGM) (BEAKER) 125 mg/dL 22-293 (test gnef=490) SERUM YOANNA ID (BEAKER) (test Polyclonal distribution of rasf=8816) immunoglobulins; no monoclonal proteins detected. Small band seen on SPEP, therefore, is likely due to presence of fibrinogen in the sample. [id number] ([facility]) Pat Pinzon MD (test opxq=4930) (electronic signature) Do not collect, specimen already in lab.BASIC METABOLIC [id number] 09:44:00 Test Item Value Reference Range Comments SODIUM (BEAKER) (test 137 meq/L 136-145 gddk=846) POTASSIUM (BEAKER) (test 3.9 meq/L 3.5-5.1 qbci=127) CHLORIDE (BEAKER) (test 101 meq/L 98-107 dyjx=217) CO2 (BEAKER) (test 30 meq/L 22-29 ivqo=949) BLOOD UREA NITROGEN 20 mg/dL 7-21 (BEAKER) (test vtsa=232) CREATININE (BEAKER) (test 7.35 mg/dL 0.57-1.25 gwat=518) GLUCOSE RANDOM (BEAKER) 85 mg/dL 70-105 (test dgtf=939) CALCIUM (BEAKER) (test 8.5 mg/dL 8.4-10.2 mdsq=830) EGFR (BEAKER) (test 7 mL/min/1.73 sq m ESTIMATED GFR IS NOT phnb=6388) ACCURATE CREATININE CLEARANCE IN PREDICTING GLOMERULAR FILTRATION RATE. ESTIMATED GFR IS NOT APPLICABLE FOR DIALYSIS PATIENTS. [id number] 09:20:00 Test Item Value Reference Range Comments MAGNESIUM (BEAKER) (test mgli=848) 1.8 mg/dL 1.6-2.6 POCT-GLUCOSE [id number] 09:18:00 Test Item Value Reference Range Comments POC-GLUCOSE METER (BEAKER) 100 mg/dL 70-110 TESTED AT [address] (test wsov=1538) [facility] [address] PROTHROMBIN TIME/[id number] 08:51:00 Test Item Value Reference Range Comments PROTIME (BEAKER) (test onzf=406) 15.1 seconds 11.7-14.7 INR (BEAKER) (test ptws=403) 1.2 <=5.9 RECOMMENDED COUMADIN/WARFARIN INR THERAPY RANGESSTANDARD DOSE: 2.0 - 3.0 Includes: PROPHYLAXIS forvenous thrombosis, systemic embolization; TREATMENT for venous thrombosis and/or pulmonary embolus.HIGH RISK: Target INR is 2.5-3.5 for patients with mechanical heart valves.While on warfarin.HGB/HCT (H&H) - STAT [id number] 08:44:00 Test Item Value Reference Range Comments HEMOGLOBIN (BEAKER) (test quse=356) 8.0 g/dL 12.0-15.0 HEMATOCRIT (BEAKER) (test logi=859) 24.0 % 36.0-45.0 POCT-GLUCOSE [id number] 23:05:00 Test Item Value Reference Range Comments POC-GLUCOSE METER (BEAKER) 108 mg/dL 70-110 TESTED AT [address] (test junf=8996) [facility] [address] POCT-GLUCOSE [id number] 17:36:00 Test Item Value Reference Range Comments POC-GLUCOSE METER (BEAKER) 133 mg/dL 70-110 TESTED AT [address] (test uiej=2239) [facility] [address] POCT-GLUCOSE [id number] 12:31:00 Test Item Value Reference Range Comments POC-GLUCOSE METER (BEAKER) 115 mg/dL 70-110 TESTED AT [address] (test qsyy=0739) [place] [address] FUNGUS CULTURE + [id number] 12:30:00 Test Item Value Reference Range Comments CULTURE (BEAKER) (test No fungus isolated in 28 days vadk=7106) FUNGUS SMEAR (BEAKER) (test No fungi seen wnrs=8675) POCT-GLUCOSE [id number] 08:30:00 Test Item Value Reference Range Comments POC-GLUCOSE METER (BEAKER) 99 mg/dL 70-110 TESTED AT [address] (test wbid=7335) [place] [address] POCT-GLUCOSE [id number] 00:16:00 Test Item Value Reference Range Comments POC-GLUCOSE METER (BEAKER) 106 mg/dL 70-110 TESTED AT [address] (test ddgf=1991) [place] [address] POCT-GLUCOSE [id number] 22:21:00 Test Item Value Reference Range Comments POC-GLUCOSE METER (BEAKER) 88 mg/dL 70-110 TESTED AT [address] (test hauz=5265) [place] [address] POCT-GLUCOSE [id number] 14:36:00 Test Item Value Reference Range Comments POC-GLUCOSE METER (BEAKER) 119 mg/dL 70-110 TESTED AT [address] (test byts=7790) [place] [address] PROTEIN ELECTROPHORESIS, [id number] 13:56:00 Test Item Value Reference Range Comments ALBUMIN FRACTION (BEAKER) 2.0 g/dL 3.5-5.5 (test afar=044) ALPHA 1 FRACTION (BEAKER) 0.3 g/dL 0.2-0.4 (test ukxl=516) ALPHA 2 FRACTION (BEAKER) 0.6 g/dL 0.5-0.9 (test wprn=751) BETA FRACTION (BEAKER) 0.9 g/dL 0.6-1.1 (test qrbu=573) GAMMA GLOBULIN FRACTION 1.9 g/dL 0.7-1.7 (BEAKER) (test vwei=742) INTERPRETATION-119 (BEAKER) There is a peak in the gamma (test spae=4962) region that may indicate a monoclonal gammopathy. Refer to serum immunofixation electrophoresis. [id number] Anne Yen MD (electronic (BEAKER) (test wtbn=4642) signature) PROTEIN TOTAL SERUM, SPEP 5.7 gm/dL 6.0-8.3 (BEAKER) (test ensc=4608) Do not collect, specimen already in lab.POTASSIUM-STAT [id number] 10:33:00 Test Item Value Reference Range Comments POTASSIUM (BEAKER) (test kixk=590) 4.9 meq/L 3.6-5.5 GLUCOSE-STAT [id number] 10:33:00 Test Item Value Reference Range Comments GLUCOSE RANDOM (BEAKER) (test ohxu=921) 129 mg/dL 70-110 HGB/HCT (H&H) - STAT [id number] 10:33:00 Test Item Value Reference Range Comments HEMOGLOBIN (BEAKER) (test vyhq=906) 12.3 g/dL 12.0-15.0 HEMATOCRIT (BEAKER) (test ghlo=928) 36.0 % 36.0-45.0 HGB/HCT (H&H) - STAT [id number] 07:59:00 Test Item Value Reference Range Comments HEMOGLOBIN (BEAKER) (test ikrk=676) 8.5 g/dL 12.0-15.0 HEMATOCRIT (BEAKER) (test tvkq=331) 25.0 % 36.0-45.0 BASIC METABOLIC [id number] 07:16:00 Test Item Value Reference Range Comments SODIUM (BEAKER) (test 134 meq/L 136-145 uqsq=456) POTASSIUM (BEAKER) (test 4.5 meq/L 3.5-5.1 pdak=967) CHLORIDE (BEAKER) (test 101 meq/L 98-107 jnkq=005) CO2 (BEAKER) (test 24 meq/L 22-29 mjlz=444) BLOOD UREA NITROGEN 24 mg/dL 7-21 (BEAKER) (test cfpb=261) CREATININE (BEAKER) (test 7.96 mg/dL 0.57-1.25 zbgw=573) GLUCOSE RANDOM (BEAKER) 88 mg/dL 70-105 (test fcyp=904) CALCIUM (BEAKER) (test 8.5 mg/dL 8.4-10.2 vkrg=355) EGFR (BEAKER) (test 7 mL/min/1.73 sq m ESTIMATED GFR IS NOT usvd=8896) ACCURATE CREATININE CLEARANCE IN PREDICTING GLOMERULAR FILTRATION RATE. ESTIMATED GFR IS NOT APPLICABLE FOR DIALYSIS PATIENTS. [id number] 07:10:00 Test Item Value Reference Range Comments MAGNESIUM (BEAKER) (test gmtx=575) 2.0 mg/dL 1.6-2.6 POCT-GLUCOSE [id number] 06:47:00 Test Item Value Reference Range Comments POC-GLUCOSE METER (BEAKER) 113 mg/dL 70-110 TESTED AT [address] (test zsnf=9166) [place] [id number] 02:25:00 Test Item Value Reference Range Comments PARTIAL THROMBOPLASTIN TIME (BEAKER) (test 67.7 seconds 22.5-36.0 mkbu=534) POCT-GLUCOSE [id number] 18:18:00 Test Item Value Reference Range Comments POC-GLUCOSE METER (BEAKER) 138 mg/dL 70-110 TESTED AT [address] (test ustd=2396) [place] [id number] 17:24:00 Test Item Value Reference Range Comments PROTIME (BEAKER) (test gbiz=715) 15.2 seconds 11.7-14.7 INR (BEAKER) (test arod=690) 1.2 <=5.9 PARTIAL THROMBOPLASTIN TIME (BEAKER) (test 37.0 seconds 22.5-36.0 dguj=743) RECOMMENDED COUMADIN/WARFARIN INR THERAPY RANGESSTANDARD DOSE: 2.0 - 3.0 Includes: PROPHYLAXIS forvenous thrombosis, systemic embolization; TREATMENT for venous thrombosis and/or pulmonary embolus.HIGH RISK: Target INR is 2.5-3.5 for patients with mechanical heart valves.ANAEROBIC [id number] 14:23:00 Test Item Value Reference Range Comments CULTURE (BEAKER) (test uwsc=4349) No anaerobes isolated ANAEROBIC [id number] 14:23:00 Test Item Value Reference Range Comments CULTURE (BEAKER) (test wcqu=2300) No anaerobes isolated POCT-GLUCOSE [id number] 12:45:00 Test Item Value Reference Range Comments POC-GLUCOSE METER (BEAKER) 126 mg/dL 70-110 TESTED AT [address] (test unox=8599) [facility] [id number] SURGICALLY OBTAINED CULTURE + GRAM [id number] 11:41:00 Test Item Value Reference Range Comments CULTURE (BEAKER) (test From Broth Only Same organism iwkq=9599) has been isolated from cultures(s) of the same body site and collection date. Repeat identification and susceptibility testing performed only after consultation with the clinical microbiology laboratory.Refer to previous culture ofCoagulase negative Staphylococcus GRAM STAIN RESULT <1+ WBCs (BEAKER) (test uazt=9949) GRAM STAIN RESULT No organisms seen (BEAKER) (test nbzb=976757) SURGICALLY OBTAINED CULTURE + GRAM [id number] 11:38:00 Test Item Value Reference Range Comments CULTURE (BEAKER) (test dyop=0770) Clindamycin (test code=10) Erythromycin (test code=4) Levofloxacin (test code=22) Linezolid (test code=40) Nitrofurantoin (test code=23) Oxacillin (test code=14) Rifampin (test code=43) Tetracycline (test code=2) Trimethoprim + Sulfamethoxazole (test code=47) Vancomycin (test code=13) CULTURE (BEAKER) (test 2+ Coagulase negative zmao=2886) Staphylococcus CULTURE (BEAKER) (test 4+ Diphtheroid rbki=9524) GRAM STAIN RESULT (BEAKER) <1+ WBCs (test wdrw=7576) GRAM STAIN RESULT (BEAKER) No organisms seen (test zvuk=[id number]) [id number] 10:08:00 Test Item Value Reference Range Comments PROTIME (BEAKER) (test axyi=759) 14.7 seconds 11.7-14.7 INR (BEAKER) (test eqjj=109) 1.2 <=5.9 PARTIAL THROMBOPLASTIN TIME (BEAKER) (test 40.2 seconds 22.5-36.0 oqhh=902) RECOMMENDED COUMADIN/WARFARIN INR THERAPY RANGESSTANDARD DOSE: 2.0 - 3.0 Includes: PROPHYLAXIS forvenous thrombosis, systemic embolization; TREATMENT for venous thrombosis and/or pulmonary embolus.HIGH RISK: Target INR is 2.5-3.5 for patients with mechanical heart valves.POCT-GLUCOSE [id number] 08:24:00 Test Item Value Reference Range Comments POC-GLUCOSE METER (BEAKER) 97 mg/dL 70-110 TESTED AT [address] (test zgsb=9566) [facility] [address] [id number] 07:39:00 Test Item Value Reference Range Comments PARTIAL THROMBOPLASTIN TIME (BEAKER) (test 192.0 seconds 22.5-36.0 ndxw=712) [id number] 07:37:00 Test Item Value Reference Range Comments MAGNESIUM (BEAKER) (test gchx=074) 1.7 mg/dL 1.6-2.6 BASIC METABOLIC [id number] 07:37:00 Test Item Value Reference Range Comments SODIUM (BEAKER) (test 136 meq/L 136-145 linp=046) POTASSIUM (BEAKER) (test 4.2 meq/L 3.5-5.1 indt=687) CHLORIDE (BEAKER) (test 100 meq/L 98-107 vtlw=491) CO2 (BEAKER) (test 31 meq/L 22-29 geby=496) BLOOD UREA NITROGEN 15 mg/dL 7-21 (BEAKER) (test jqkx=353) CREATININE (BEAKER) (test 5.65 mg/dL 0.57-1.25 jsdg=898) GLUCOSE RANDOM (BEAKER) 121 mg/dL 70-105 (test ootg=553) CALCIUM (BEAKER) (test 8.4 mg/dL 8.4-10.2 ogha=867) EGFR (BEAKER) (test 10 mL/min/1.73 sq m ESTIMATED GFR IS NOT lpje=3244) ACCURATE CREATININE CLEARANCE IN PREDICTING GLOMERULAR FILTRATION RATE. ESTIMATED GFR IS NOT APPLICABLE FOR DIALYSIS PATIENTS. [id number] 23:25:00 Test Item Value Reference Range Comments PARTIAL THROMBOPLASTIN TIME (BEAKER) (test 97.8 seconds 22.5-36.0 zosn=540) POCT-GLUCOSE [id number] 22:52:00 Test Item Value Reference Range Comments POC-GLUCOSE METER (BEAKER) 98 mg/dL 70-110 TESTED AT [address] (test jsrg=3397) [facility] [address] POCT-GLUCOSE [id number] 17:43:00 Test Item Value Reference Range Comments POC-GLUCOSE METER (BEAKER) 86 mg/dL 70-110 TESTED AT [address] (test hfuj=4056) [place] [address] [id number] 15:59:00 Test Item Value Reference Range Comments PARTIAL THROMBOPLASTIN TIME (BEAKER) (test 62.8 seconds 22.5-36.0 oidm=070) POCT-GLUCOSE [id number] 14:50:00 Test Item Value Reference Range Comments POC-GLUCOSE METER (BEAKER) 115 mg/dL 70-110 TESTED AT [address] (test hlqb=4444) [place] [address] [id number] 14:00:00 Test Item Value Reference Range Comments PARTIAL THROMBOPLASTIN TIME (BEAKER) (test 113.6 seconds 22.5-36.0 msjb=383) VANCOMYCIN LEVEL, [id number] 13:10:00 Test Item Value Reference Range Comments VANCOMYCIN RANDOM (BEAKER) (test hgvk=024) 33.9 ug/mL Reference Range: No NormalsTROPONIN [id number] 12:52:00 Test Item Value Reference Range Comments TROPONIN I (BEAKER) (test mrap=395) 0.09 ng/mL 0.00-0.03 Troponin I (TnI) levels [...] acidosis, acute neurological disease, and persistent tachyarrhythmia.POCT-GLUCOSE [id number] 12:19:00 Test Item Value Reference Range Comments POC-GLUCOSE METER (BEAKER) 87 mg/dL 70-110 TESTED AT [address] (test pjsr=3675) [place] [address] POCT-GLUCOSE [id number] 08:36:00 Test Item Value Reference Range Comments POC-GLUCOSE METER (BEAKER) 62 mg/dL 70-110 Notified MILA IGLESIAS/TESTED AT [facility] (test sqzj=6263) [address] [place] [address] ANTI-NUCLEAR ANTIBODY (MILTON)2017-01-07 06:33:00 Test Item Value Reference Range Comments ANTI-NUCLEAR ANTIBODY ([place]) (BEAKER) (test Positive Negative krta=128) [place]TON TITER AND [id number] 06:33:00 Test Item Value Reference Range Comments MILTON TITER (BEAKER) (test yexe=2543) :640 [place] PATTERN (BEAKER) (test ipie=3998) SSA/RO TROPONIN [id number] 03:35:00 Test Item Value Reference Range Comments TROPONIN I (BEAKER) (test scwe=467) 0.10 ng/mL 0.00-0.03 Troponin I (TnI) levels [...] acute neurological disease, and persistent tachyarrhythmia.BASIC METABOLIC [id number] 03:28:00 Test Item Value Reference Range Comments SODIUM (BEAKER) (test 137 meq/L 136-145 vrpl=703) POTASSIUM (BEAKER) (test 4.5 meq/L 3.5-5.1 kyol=057) CHLORIDE (BEAKER) (test 103 meq/L 98-107 brft=863) CO2 (BEAKER) (test 27 meq/L 22-29 smjn=792) BLOOD UREA NITROGEN 22 mg/dL 7-21 (BEAKER) (test srou=275) CREATININE (BEAKER) (test 7.44 mg/dL 0.57-1.25 xhvl=669) GLUCOSE RANDOM (BEAKER) 73 mg/dL 70-105 (test hkwg=144) CALCIUM (BEAKER) (test 8.2 mg/dL 8.4-10.2 isvi=676) EGFR (BEAKER) (test 7 mL/min/1.73 sq m ESTIMATED GFR IS NOT lnwi=8113) ACCURATE CREATININE CLEARANCE IN PREDICTING GLOMERULAR FILTRATION RATE. ESTIMATED GFR IS NOT APPLICABLE FOR DIALYSIS PATIENTS. [id number] 03:27:00 Test Item Value Reference Range Comments MAGNESIUM (BEAKER) (test eufu=868) 1.9 mg/dL 1.6-2.6 [id number] 03:24:00 Test Item Value Reference Range Comments PARTIAL THROMBOPLASTIN TIME (BEAKER) (test 111.9 seconds 22.5-36.0 pwhm=185) [id number] 00:18:00 Test Item Value Reference Range Comments RPR SCREEN (BEAKER) (test jvyf=110) Nonreactive Nonreactive BLOOD [id number] 00:00:00 Test Item Value Reference Range Comments CULTURE (BEAKER) (test pywa=2080) No growth in 5 days BLOOD [id number] 00:00:00 Test Item Value Reference Range Comments CULTURE (BEAKER) (test qehv=3644) No growth in [address], BRAIN, WITHOUT [id number] 23:31:00PT started dialysis 2015FINAL REPORT Clinical history [...] Nuno MDReportVerified Date/Time: 01/06/2017 23:31:20 Reading Location: [facility] C013X Ortho Consult Reading Room Electronically signed by: ERLIN NUNO M.D. on 11:31 PMPOCT-GLUCOSE [id number] 22:02:00 Test Item Value Reference Range Comments POC-GLUCOSE METER (BEAKER) 99 mg/dL 70-[address] [facility] [address] [facility] (test tvsu=0264) [facility] [address] [id number] 18:44:00 Test Item Value Reference Range Comments PARTIAL THROMBOPLASTIN TIME (BEAKER) (test 94.9 seconds 22.5-36.0 ghfl=333) HEPATITIS A ANTIBODY, [id number] 18:03:00 Test Item Value Reference Range Comments HEPATITIS A IGG ANTIBODY (BEAKER) (test hrpw=8336) Reactive Nonreactive HIV-1 ANTIGEN WITH HIV-1/2 [id number] 17:58:00 Test Item Value Reference Range Comments HIV-1 ANTIGEN WITH HIV 1\\T\\2 ANTIBODY (2) Nonreactive Nonreactive (BEAKER) (test eizk=6130) POCT-GLUCOSE [id number] 17:55:00 Test Item Value Reference Range Comments POC-GLUCOSE METER (BEAKER) 89 mg/dL 70-[address] [facility] [address] (test hnuz=8678) [facility] [address] ANG, TUNNELED DIALYSIS CATH [id number] 17:45:00PT started dialysis 03/2015Reason for exam:->needs prison HD access, please d/c [facility] after PC [...] Physician intra- service time was 20 minutes. Wet Char Conveyor Tender: Richard. English Tutor: Rolf. Approach: Right internal jugular vein Estimated [...] needle into the right atrium. A 4 Bengali micropuncture sheath was placed. A subcutaneous tunnel was created in the right anterior chest wall by blunt dissection. A 19 cm 15.5 Bengali Duraflow 2 catheter was brought through the [...] MDReport Verified Date/Time: 01/06/2017 17:45:51 Reading Location: [address] Ultrasound Reading Room [id number] 17:37:00 Test Item Value Reference Range Comments PARTIAL THROMBOPLASTIN TIME (BEAKER) (test > seconds 22.5-36.0 jbvv=575) U/S, RENAL, [id number] 17:29:00PT started dialysis 07/12/2015Reason for exam:->heart transplant [...] MDReport Verified Date/Time: 01/06/2017 17:29:12 Reading Location: [address] Ultrasound Reading Room TROPONIN [id number] 17:04:00 Test Item Value Reference Range Comments TROPONIN I (AKER) (test sakv=148) 0.10 ng/mL 0.00-0.03 Troponin I (TnI) levels [...] failure, acidosis, acute neurological disease, and persistent tachyarrhythmia.[id number] 16:54:00 Test Item Value Reference Range Comments FERRITIN (Sonexa TherapeuticsAKER) (test veqv=225) 216 ng/mL 5-275 VITAMIN D, [id number] 16:48:00 Test Item Value Reference Range Comments VITAMIN D 25-OH (BEAKER) (test movl=2247) 6.4 ng/mL 6.6-49.9 Effective 12/21/2016: Reference Range ChangeNew: 6.6-49.9 ng/mL Previous: 13.0 -47.8 ng/mLRecommended Vitamin D Target Range: 30.0-40.0 ng/mLT4, [id number] 16:43:00 Test Item Value Reference Range Comments FREE T4 (BEAKER) (test daga=420) 1.56 ng/dL 0.70-1.48 [id number] 16:43:00 Test Item Value Reference Range Comments THYROID STIMULATING HORMONE (BEAKER) (test 0.98 uIU/mL 0.35-4.94 ylnm=019) [id number] 16:22:00 Test Item Value Reference Range Comments TRANSFERRIN (BEAKER) (test sjer=295) 122 mg/dL 174-382 [id number] 16:13:00 Test Item Value Reference Range Comments PREALBUMIN (BEAKER) (test moyq=419) 14 mg/dL 14-45 IRON, [id number] 16:13:00 Test Item Value Reference Range Comments IRON (BEAKER) (test nxvm=347) 23 ug/dL 40-160 TROPONIN [id number] 15:31:00 Test Item Value Reference Range Comments TROPONIN I (BEAKER) (test hvab=342) 0.12 ng/mL 0.00-0.03 Troponin I (TnI) levels [...] failure, acidosis, acute neurological disease, and persistent tachyarrhythmia.[id number] 15:30:00 Test Item Value Reference Range Comments CREATININE (BEAKER) (test 6.49 mg/dL 0.57-1.25 zqfw=471) EGFR (BEAKER) (test 8 mL/min/1.73 sq m ESTIMATED GFR IS NOT rtce=1707) ACCURATE CREATININE CLEARANCE IN PREDICTING GLOMERULAR FILTRATION RATE. ESTIMATED GFR IS NOT APPLICABLE FOR DIALYSIS PATIENTS. URIC [id number] 15:25:00 Test Item Value Reference Range Comments URIC ACID (BEAKER) (test dtfs=878) 3.3 mg/dL 2.6-7.2 LIPID [id number] 15:25:00 Test Item Value Reference Range Comments TRIGLYCERIDES (BEAKER) (test qowa=991) 57 mg/dL CHOLESTEROL (BEAKER) (test bxzl=486) 131 mg/dL HDL CHOLESTEROL (BEAKER) (test oksy=314) 51 mg/dL LDL CHOLESTEROL CALCULATED (BEAKER) (test 69 mg/dL yfuy=480) Triglyceride Reference Range: Low Risk <150 Borderline 150- 199 High Risk 200-499 Very High Risk >=500Cholesterol Reference Range: Low Risk <200 Borderline 200-239 High Risk > 240HDL Cholesterol Reference Range: Low Risk >=60 High Risk <40LDL Cholesterol Reference Range: Optimal <100 Near Optimal 100-129 Borderline 130-159 High 160-189 Very High >=[id number] 15:25:00 Test Item Value Reference Range Comments AMYLASE (BEAKER) (test rsdk=465) 60 U/L 25-125 GAMMA GLUTAMYL TRANSFERASE (GGT)2017-01-06 15:25:00 Test Item Value Reference Range Comments GAMMA GLUTAMYL TRANSFERASE (BEAKER) (test wsoe=469) 15 U/L 9-64 [id number] 15:25:00 Test Item Value Reference Range Comments LIPASE (BEAKER) (test wgda=364) 46 U/L 8-78 RETICULOCYTE [id number] 15:07:00 Test Item Value Reference Range Comments RETICULOCYTE COUNT PCT (BEAKER) (test einv=700) 1.2 % 0.5-1.7 POCT-GLUCOSE [id number] 09:33:00 Test Item Value Reference Range Comments POC-GLUCOSE METER (BEAKER) 103 mg/dL 70-110 TESTED AT [address] (test beiy=3022) [facility] [address] POCT-GLUCOSE [id number] 06:37:00 Test Item Value Reference Range Comments POC-GLUCOSE METER (BEAKER) 108 mg/dL 70-110 TESTED AT [address] (test hmen=4030) [facility] [address] VANCOMYCIN LEVEL, [id number] 04:30:00 Test Item Value Reference Range Comments VANCOMYCIN RANDOM (BEAKER) (test lyvi=265) 37.6 ug/mL Reference Range: No NormalsTROPONIN [id number] 04:19:00 Test Item Value Reference Range Comments TROPONIN I (BEAKER) (test daqr=424) 0.11 ng/mL 0.00-0.03 Troponin I (TnI) levels [...] acute neurological disease, and persistent tachyarrhythmia.BASIC METABOLIC [id number] 04:12:00 Test Item Value Reference Range Comments SODIUM (BEAKER) (test 139 meq/L 136-145 ejfo=875) POTASSIUM (BEAKER) (test 4.2 meq/L 3.5-5.1 jdsl=770) CHLORIDE (BEAKER) (test 105 meq/L 98-107 ofzd=357) CO2 (BEAKER) (test 28 meq/L 22-29 vszh=878) BLOOD UREA NITROGEN 15 mg/dL 7-21 (BEAKER) (test rvil=954) CREATININE (BEAKER) (test 5.74 mg/dL 0.57-1.25 vxyg=158) GLUCOSE RANDOM (BEAKER) 85 mg/dL 70-105 (test fmxh=620) CALCIUM (BEAKER) (test 8.2 mg/dL 8.4-10.2 mjwl=847) EGFR (BEAKER) (test 10 mL/min/1.73 sq m ESTIMATED GFR IS NOT wvzp=7359) ACCURATE CREATININE CLEARANCE IN PREDICTING GLOMERULAR FILTRATION RATE. ESTIMATED GFR IS NOT APPLICABLE FOR DIALYSIS PATIENTS. [id number] 04:11:00 Test Item Value Reference Range Comments MAGNESIUM (BEAKER) (test ajpg=304) 1.7 mg/dL 1.6-2.6 [id number] 03:57:00 Test Item Value Reference Range Comments PARTIAL THROMBOPLASTIN TIME (BEAKER) (test 36.0 seconds 22.5-36.0 fino=954) Prior to initiating heparinCBC (HEMOGRAM ONLY)2017-01-06 03:49:00 Test Item Value Reference Range Comments WHITE BLOOD CELL COUNT (BEAKER) (test ungr=596) 7.3 K/ L 3.5-10.5 RED BLOOD CELL COUNT (BEAKER) (test hhnj=739) 2.81 M/ L 3.93-5.22 HEMOGLOBIN (BEAKER) (test jnkl=810) 8.1 GM/DL 11.2-15.7 HEMATOCRIT (BEAKER) (test ccmf=850) 26.1 % 34.1-44.9 MEAN CORPUSCULAR VOLUME (BEAKER) (test slrc=541) 92.9 fL 79.4-94.8 MEAN CORPUSCULAR HEMOGLOBIN (BEAKER) (test 28.8 pg 25.6-32.2 sqmd=443) MEAN CORPUSCULAR HEMOGLOBIN CONC (BEAKER) (test 31.0 GM/DL 32.2-35.5 dfgr=139) RED CELL DISTRIBUTION WIDTH (BEAKER) (test 14.3 % 11.7-14.4 ifcb=912) PLATELET COUNT (BEAKER) (test uttd=123) 150 K/CU MM 150-450 MEAN PLATELET VOLUME (BEAKER) (test dqwn=876) 11.0 fL 9.4-12.3 NUCLEATED RED BLOOD CELLS (BEAKER) (test 0 /100 WBC 0-0 trwj=082) TROPONIN [id number] 00:42:00 Test Item Value Reference Range Comments TROPONIN I (BEAKER) (test rzde=535) 0.11 ng/mL 0.00-0.03 Troponin I (TnI) levels [...] acidosis, acute neurological disease, and persistent tachyarrhythmia.POCT-GLUCOSE [id number] 00:27:00 Test Item Value Reference Range Comments POC-GLUCOSE METER (BEAKER) 97 mg/dL 70-[address] [facility] [address] [facility] (test qfgd=8178) [facility] [address] [id number] 00:23:00 Test Item Value Reference Range Comments PARTIAL THROMBOPLASTIN TIME (BEAKER) (test 34.2 seconds 22.5-36.0 ksmh=077) [id number] 17:16:00 Test Item Value Reference Range Comments PARTIAL THROMBOPLASTIN TIME (BEAKER) (test 58.7 seconds 22.5-36.0 omlf=430) TISSUE [id number] 16:16:00Surgical Pathology Report Case: [id number] Authorizing Provider: Fabi Parekh MD Collected: 01/04/2017 1055 Ordering Location: [facility] Received: 01/04/2017 1314 PERIOPERATIVE SERVICES Pathologist: Judit Medel MD Specimen: Hernia, Hernia Sac HERNIA SAC, ABDOMINAL, INCISIONAL HERNIA, REPAIR: - FIBROADIPOSE TISSUE AND REACTIVE CHANGS WITH FOREIGN BODY GIANT CELLS, CONSISTENT WITH INCISIONAL HERNIA SAC Signing Pathologist Direct Phone Line: [phone] signed by Judit Medel MD on 01/05/2017 at 4:16 [id number] renal disease, incisional hernia sacHernia sacReceived fresh labeled "hernia", description "hernia sac" is an 8.3 x 7.3 x 1.0 cm, dark-red to corral-white, irregular, rubbery, wrinkled portion of fibromembranoussoft tissue. Sectioning reveals no discrete masses. Lube Man sections are submitted in cassette A1. DB/ew Performed.[id number] 14:43:00 Test Item Value Reference Range Comments PARTIAL THROMBOPLASTIN TIME ([employer]) (test 162.1 seconds 22.5-36.0 dtom=965) POCT-GLUCOSE [id number] 13:01:00 Test Item Value Reference Range Comments POC-GLUCOSE METER ([employer]) 88 mg/dL 70-110 TESTED AT [address] (test kjkf=2224) [place] [address] TROPONIN [id number] 12:59:00 Test Item Value Reference Range Comments TROPONIN I (Sonexa TherapeuticsAKER) (test tjls=487) 0.13 ng/mL 0.00-0.03 Troponin I (TnI) levels [...] acidosis, acute neurological disease, and persistent tachyarrhythmia.SPIN/CONCENTRATION [id number] 12: 45:00 Test Item Value Reference Range Comments CONCENTRATION CHARGED (Sonexa TherapeuticsAKER) (test yhas=1484) Done POCT-GLUCOSE [id number] 09:10:00 Test Item Value Reference Range Comments POC-GLUCOSE METER ([employer]) 102 mg/dL 70-110 TESTED AT [address] (test qjap=9832) [place] [address] CBC W/PLT COUNT & AUTO [id number] 08:49:00 Test Item Value Reference Range Comments WHITE BLOOD CELL COUNT (BEAKER) (test ypqo=939) 8.1 K/ L 3.5-10.5 RED BLOOD CELL COUNT (BEAKER) (test ekxx=744) 2.94 M/ L 3.93-5.22 HEMOGLOBIN (BEAKER) (test ljal=542) 8.5 GM/DL 11.2-15.7 HEMATOCRIT (BEAKER) (test dlen=001) 26.9 % 34.1-44.9 MEAN CORPUSCULAR VOLUME (BEAKER) (test imid=498) 91.5 fL 79.4-94.8 MEAN CORPUSCULAR HEMOGLOBIN (BEAKER) (test 28.9 pg 25.6-32.2 imzg=511) MEAN CORPUSCULAR HEMOGLOBIN CONC (BEAKER) (test 31.6 GM/DL 32.2-35.5 avfl=275) RED CELL DISTRIBUTION WIDTH (BEAKER) (test 14.3 % 11.7-14.4 vyxx=497) PLATELET COUNT (BEAKER) (test oqha=700) 158 K/CU MM 150-450 MEAN PLATELET VOLUME (BEAKER) (test vjyk=578) 11.0 fL 9.4-12.3 NUCLEATED RED BLOOD CELLS (BEAKER) (test 0 /100 WBC 0-0 slqr=942) NEUTROPHILS RELATIVE PERCENT (BEAKER) (test 71 % coxy=086) LYMPHOCYTES RELATIVE PERCENT (BEAKER) (test 14 % kvkv=202) MONOCYTES RELATIVE PERCENT (BEAKER) (test 14 % ikts=784) EOSINOPHILS RELATIVE PERCENT (BEAKER) (test 1 % pkop=631) BASOPHILS RELATIVE PERCENT (BEAKER) (test 0 % rncn=244) NEUTROPHILS ABSOLUTE COUNT (BEAKER) (test 5.73 K/ L 1.56-6.13 smag=151) LYMPHOCYTES ABSOLUTE COUNT (BEAKER) (test 1.14 K/ L 1.18-3.74 lbwh=432) MONOCYTES ABSOLUTE COUNT (BEAKER) (test 1.11 K/ L 0.24-0.36 wkra=062) EOSINOPHILS ABSOLUTE COUNT (BEAKER) (test 0.10 K/ L 0.04-0.36 hxxe=841) BASOPHILS ABSOLUTE COUNT (BEAKER) (test 0.02 K/ L 0.01-0.08 xmwt=319) IMMATURE GRANULOCYTES-RELATIVE PERCENT (BEAKER) 1 % 0-1 (test adsz=1864) POCT-GLUCOSE [id number] 07:57:00 Test Item Value Reference Range Comments POC-GLUCOSE METER (BEAKER) 133 mg/dL 70-[address] [facility] [address] [facility] (test gcrs=2232) [place] [id number] BODY FLUID CULTURE + GRAM [id number] 07:44:00 Test Item Value Reference Range Comments CULTURE (BEAKER) (test kqtz=6878) No growth GRAM STAIN RESULT (BEAKER) (test <1+ WBCs wjqp=1922) GRAM STAIN RESULT (BEAKER) (test No organisms seen mevb=58754) POCT-GLUCOSE [id number] 06:05:00 Test Item Value Reference Range Comments POC-GLUCOSE METER (BEAKER) 63 mg/dL 70-110 TESTED AT [address] (test dgzk=5519) [facility] [address] VANCOMYCIN LEVEL, [id number] 05:32:00 Test Item Value Reference Range Comments VANCOMYCIN RANDOM (BEAKER) (test rrcm=166) 31.0 ug/mL Reference Range: No NormalsBASIC METABOLIC [id number] 05:24:00 Test Item Value Reference Range Comments SODIUM (BEAKER) (test 138 meq/L 136-145 xydp=307) POTASSIUM (BEAKER) (test 5.1 meq/L 3.5-5.1 sfvt=126) CHLORIDE (BEAKER) (test 105 meq/L 98-107 knrk=482) CO2 (BEAKER) (test 27 meq/L 22-29 algh=199) BLOOD UREA NITROGEN 33 mg/dL 7-21 (BEAKER) (test yrij=002) CREATININE (BEAKER) (test 9.93 mg/dL 0.57-1.25 mwji=600) GLUCOSE RANDOM (BEAKER) 57 mg/dL 70-105 (test cafh=374) CALCIUM (BEAKER) (test 8.7 mg/dL 8.4-10.2 mhrk=332) EGFR (BEAKER) (test 5 mL/min/1.73 sq m ESTIMATED GFR IS NOT huov=1275) ACCURATE CREATININE CLEARANCE IN PREDICTING GLOMERULAR FILTRATION RATE. ESTIMATED GFR IS NOT APPLICABLE FOR DIALYSIS PATIENTS. TROPONIN [id number] 05:23:00 Test Item Value Reference Range Comments TROPONIN I (BEAKER) (test puoa=675) 0.13 ng/mL 0.00-0.03 Troponin I (TnI) levels [...] failure, acidosis, acute neurological disease, and persistent tachyarrhythmia.[id number] 05:21:00 Test Item Value Reference Range Comments MAGNESIUM (BEAKER) (test lwof=015) 1.7 mg/dL 1.6-2.6 [id number] 05:06:00 Test Item Value Reference Range Comments PARTIAL THROMBOPLASTIN TIME (BEAKER) (test 89.4 seconds 22.5-36.0 bfbo=743) PROTHROMBIN TIME/[id number] 05:04:00 Test Item Value Reference Range Comments PROTIME (BEAKER) (test yeot=016) 14.6 seconds 11.7-14.7 INR (BEAKER) (test baxz=231) 1.2 <=5.9 RECOMMENDED COUMADIN/WARFARIN INR THERAPY RANGESSTANDARD DOSE: 2.0 - 3.0 Includes: PROPHYLAXIS forvenous thrombosis, systemic embolization; TREATMENT for venous thrombosis and/or pulmonary embolus.HIGH RISK: Target INR is 2.5-3.5 for patients with mechanical heart valves.TROPONIN [id number] 17:14:00 Test Item Value Reference Range Comments TROPONIN I (BEAKER) (test jsbe=302) 0.16 ng/mL 0.00-0.03 Troponin I (TnI) levels [...] failure, acidosis, acute neurological disease, and persistent tachyarrhythmia.[id number] 16:55:00 Test Item Value Reference Range Comments GLUCOSE RANDOM (BEAKER) (test uzdg=845) 140 mg/dL 70-105 GLUCOSE-STAT [id number] 13:33:00 Test Item Value Reference Range Comments GLUCOSE RANDOM (BEAKER) (test gblg=513) 101 mg/dL 70-110 POTASSIUM-STAT [id number] 13:33:00 Test Item Value Reference Range Comments POTASSIUM (BEAKER) (test tjhi=671) 4.6 meq/L 3.6-5.5 HGB/HCT (H&H) - STAT [id number] 13:33:00 Test Item Value Reference Range Comments HEMOGLOBIN (BEAKER) (test ftmz=260) 13.0 g/dL 12.0-15.0 HEMATOCRIT (BEAKER) (test vbzq=837) 38.0 % 36.0-45.0 BODY FLUID CULTURE + GRAM [id number] 09:05:00 Test Item Value Reference Range Comments CULTURE (BEAKER) (test qcur=6112) No growth GRAM STAIN RESULT (BEAKER) (test <1+ WBCs ubhb=1337) GRAM STAIN RESULT (BEAKER) (test No organisms seen ydth=18516) POCT-GLUCOSE [id number] 07:58:00 Test Item Value Reference Range Comments POC-GLUCOSE METER (BEAKER) 81 mg/dL 70-[address] [facility] [address] [place] [address] (test laay=7735) [facility] [address] HCG, QUANTITATIVE, [id number] 07:23:00 Test Item Value Reference Range Comments GONADOTROPIN, CHORIONIC (HCG) QUANT (BEAKER) (test < mIU/mL 0-10 htza=302) Non- Females: <10 mIU/mL Females: Gestation Age Reference Range(mIU/mL) 0.2-1 Week 5-50 1-2 Weeks 50-500 2-3 Weeks 100-5,000 3-4Weeks 500-10,000 4 -5 Weeks 1,000-50,000 5-6 Weeks 10,000-100,000 6-8 Weeks 15,000-200,000 2-3 Months 10,000-100,000TROPONIN [id number] 07:19 :00 Test Item Value Reference Range Comments TROPONIN I (BEAKER) (test deiq=446) 0.17 ng/mL 0.00-0.03 Troponin I (TnI) levels [...] acute neurological disease, and persistent tachyarrhythmia.BASIC METABOLIC [id number] 07:19:00 Test Item Value Reference Range Comments SODIUM (BEAKER) (test 137 meq/L 136-145 uftf=250) POTASSIUM (BEAKER) (test 4.4 meq/L 3.5-5.1 ebiv=583) CHLORIDE (BEAKER) (test 103 meq/L 98-107 dyfu=451) CO2 (BEAKER) (test 27 meq/L 22-29 kvnd=891) BLOOD UREA NITROGEN 26 mg/dL 7-21 (BEAKER) (test voje=134) CREATININE (BEAKER) (test 8.02 mg/dL 0.57-1.25 omfr=440) GLUCOSE RANDOM (BEAKER) 74 mg/dL 70-105 (test oufj=989) CALCIUM (BEAKER) (test 8.3 mg/dL 8.4-10.2 osrm=955) EGFR (BEAKER) (test 7 mL/min/1.73 sq m ESTIMATED GFR IS NOT kypw=7381) ACCURATE CREATININE CLEARANCE IN PREDICTING GLOMERULAR FILTRATION RATE. ESTIMATED GFR IS NOT APPLICABLE FOR DIALYSIS PATIENTS. [id number] 07:18:00 Test Item Value Reference Range Comments MAGNESIUM (BEAKER) (test rftk=451) 1.7 mg/dL 1.6-2.6 [id number] 06:48:00 Test Item Value Reference Range Comments PROTIME (BEAKER) (test glba=364) 15.0 seconds 11.7-14.7 INR (BEAKER) (test akln=217) 1.2 <=5.9 PARTIAL THROMBOPLASTIN TIME (BEAKER) (test 103.5 seconds 22.5-36.0 saqv=531) RECOMMENDED COUMADIN/WARFARIN INR THERAPY RANGESSTANDARD DOSE: 2.0 - 3.0 Includes: PROPHYLAXIS forvenous thrombosis, systemic embolization; TREATMENT for venous thrombosis and/or pulmonary embolus.HIGH RISK: Target INR is 2.5-3.5 for patients with mechanical heart valves.CBC W/PLT COUNT & AUTO [id number] 06:44:00 Test Item Value Reference Range Comments WHITE BLOOD CELL COUNT (BEAKER) (test pslr=466) 6.8 K/ L 3.5-10.5 RED BLOOD CELL COUNT (BEAKER) (test slit=929) 2.94 M/ L 3.93-5.22 HEMOGLOBIN (BEAKER) (test xhgb=411) 8.3 GM/DL 11.2-15.7 HEMATOCRIT (BEAKER) (test ewke=009) 26.9 % 34.1-44.9 MEAN CORPUSCULAR VOLUME (BEAKER) (test oqea=916) 91.5 fL 79.4-94.8 MEAN CORPUSCULAR HEMOGLOBIN (BEAKER) (test 28.2 pg 25.6-32.2 mahv=110) MEAN CORPUSCULAR HEMOGLOBIN CONC (BEAKER) (test 30.9 GM/DL 32.2-35.5 hlcp=827) RED CELL DISTRIBUTION WIDTH (BEAKER) (test 14.1 % 11.7-14.4 kefm=112) PLATELET COUNT (BEAKER) (test yywk=791) 148 K/CU MM 150-450 MEAN PLATELET VOLUME (BEAKER) (test zzwe=655) 11.2 fL 9.4-12.3 NUCLEATED RED BLOOD CELLS (BEAKER) (test 0 /100 WBC 0-0 bnfw=915) NEUTROPHILS RELATIVE PERCENT (BEAKER) (test 64 % luex=332) LYMPHOCYTES RELATIVE PERCENT (BEAKER) (test 15 % fgqx=063) MONOCYTES RELATIVE PERCENT (BEAKER) (test 16 % ltuh=505) EOSINOPHILS RELATIVE PERCENT (BEAKER) (test 5 % zigc=518) BASOPHILS RELATIVE PERCENT (BEAKER) (test 0 % byqt=147) NEUTROPHILS ABSOLUTE COUNT (BEAKER) (test 4.36 K/ L 1.56-6.13 tjfj=239) LYMPHOCYTES ABSOLUTE COUNT (BEAKER) (test 1.05 K/ L 1.18-3.74 mlrn=329) MONOCYTES ABSOLUTE COUNT (BEAKER) (test 1.06 K/ L 0.24-0.36 plgd=306) EOSINOPHILS ABSOLUTE COUNT (BEAKER) (test 0.32 K/ L 0.04-0.36 tjti=764) BASOPHILS ABSOLUTE COUNT (BEAKER) (test 0.03 K/ L 0.01-0.08 vtzp=722) IMMATURE GRANULOCYTES-RELATIVE PERCENT (BEAKER) 0 % 0-1 (test wlwo=4244) POCT-GLUCOSE [id number] 01:01:00 Test Item Value Reference Range Comments POC-GLUCOSE METER (BEAKER) 96 mg/dL 70-110 TESTED AT [address] (test zvfx=1981) [place] [address] TROPONIN [id number] 00:46:00 Test Item Value Reference Range Comments TROPONIN I (BEAKER) (test fqbu=430) 0.16 ng/mL 0.00-0.03 Troponin I (TnI) levels [...] failure, acidosis, acute neurological disease, and persistent tachyarrhythmia.[id number] 00:21:00 Test Item Value Reference Range Comments PROTIME (BEAKER) (test oins=675) 15.8 seconds 11.7-14.7 INR (BEAKER) (test dcrn=501) 1.3 <=5.9 PARTIAL THROMBOPLASTIN TIME (BEAKER) (test 78.1 seconds 22.5-36.0 rlsm=715) RECOMMENDED COUMADIN/WARFARIN INR THERAPY RANGESSTANDARD DOSE: 2.0 - 3.0 Includes: PROPHYLAXIS forvenous thrombosis, systemic embolization; TREATMENT for venous thrombosis and/or pulmonary embolus.HIGH RISK: Target INR is 2.5-3.5 for patients with mechanical heart valves.POCT-GLUCOSE [id number] 21:58:00 Test Item Value Reference Range Comments POC-GLUCOSE METER (BEAKER) 142 mg/dL 70-110 TESTED AT [address] (test wjfx=5405) [facility] [address] VANCOMYCIN LEVEL, [id number] 20:19:00 Test Item Value Reference Range Comments VANCOMYCIN RANDOM (BEAKER) (test fhaj=931) 18.4 ug/mL Reference Range: No NormalsTROPONIN [id number] 18:36:00 Test Item Value Reference Range Comments TROPONIN I (BEAKER) (test mhcc=898) 0.18 ng/mL 0.00-0.03 Troponin I (TnI) levels [...] acidosis, acute neurological disease, and persistent tachyarrhythmia.POCT-GLUCOSE [id number] 18:30:00 Test Item Value Reference Range Comments POC-GLUCOSE METER (BEAKER) 119 mg/dL 70-110 TESTED AT [address] (test woxu=4210) [place] [address] HEMOGLOBIN [id number] 18:21:00 Test Item Value Reference Range Comments HEMOGLOBIN A1C (BEAKER) (test agcr=895) 6.3 % 4.3-6.1 POCT-GLUCOSE [id number] 18:00:00 Test Item Value Reference Range Comments POC-GLUCOSE METER (BEAKER) 57 mg/dL 70-110 TESTED AT [address] (test uwpu=7480) [place] [address] [id number] 16:34:00 Test Item Value Reference Range Comments PARTIAL THROMBOPLASTIN TIME (BEAKER) (test 99.2 seconds 22.5-36.0 tonp=187) [id number] 15:36:00 Test Item Value Reference Range Comments PARTIAL THROMBOPLASTIN TIME (BEAKER) (test 123.9 seconds 22.5-36.0 wnuc=556) [id number] 13:38:00 Test Item Value Reference Range Comments PARTIAL THROMBOPLASTIN TIME (BEAKER) (test > seconds 22.5-36.0 dlzd=402) TROPONIN [id number] 13:27:00 Test Item Value Reference Range Comments TROPONIN I (BEAKER) (test oltj=108) 0.19 ng/mL 0.00-0.03 Troponin I (TnI) levels [...] acidosis, acute neurological disease, and persistent tachyarrhythmia.POCT-GLUCOSE [id number] 13:25:00 Test Item Value Reference Range Comments POC-GLUCOSE METER (BEAKER) 120 mg/dL 70-110 TESTED AT [address] (test wqyn=4915) [place] [address] POCT-GLUCOSE [id number] 09:50:00 Test Item Value Reference Range Comments POC-GLUCOSE METER (BEAKER) 85 mg/dL 70-110 TESTED AT [address] (test pdao=7706) [place] [address] TROPONIN [id number] 08:31:00 Test Item Value Reference Range Comments TROPONIN I (BEAKER) (test gkas=233) 0.20 ng/mL 0.00-0.03 Troponin I (TnI) levels [...] failure, acidosis, acute neurological disease, and persistent tachyarrhythmia.[id number] 03:35:00 Test Item Value Reference Range Comments PARTIAL THROMBOPLASTIN TIME (BEAKER) (test 39.1 seconds 22.5-36.0 idoh=847) BASIC METABOLIC [id number] 03:34:00 Test Item Value Reference Range Comments SODIUM (BEAKER) (test 134 meq/L 136-145 hszw=107) POTASSIUM (BEAKER) (test 5.0 meq/L 3.5-5.1 uoxi=401) CHLORIDE (BEAKER) (test 100 meq/L 98-107 xchf=183) CO2 (BEAKER) (test 24 meq/L 22-29 crcl=962) BLOOD UREA NITROGEN 50 mg/dL 7-21 (BEAKER) (test dlkg=754) CREATININE (BEAKER) (test 11.51 mg/dL 0.57-1.25 wcmc=629) GLUCOSE RANDOM (BEAKER) 105 mg/dL 70-105 (test uluf=694) CALCIUM (BEAKER) (test 8.0 mg/dL 8.4-10.2 gsmu=984) EGFR (BEAKER) (test 4 mL/min/1.73 sq m ESTIMATED GFR IS NOT sjbz=5930) ACCURATE CREATININE CLEARANCE IN PREDICTING GLOMERULAR FILTRATION RATE. ESTIMATED GFR IS NOT APPLICABLE FOR DIALYSIS PATIENTS. [id number] 03:32:00 Test Item Value Reference Range Comments MAGNESIUM (BEAKER) (test dwwc=951) 1.5 mg/dL 1.6-2.6 CBC W/PLT COUNT & AUTO [id number] 03:17:00 Test Item Value Reference Range Comments WHITE BLOOD CELL COUNT (BEAKER) (test qizr=143) 6.6 K/ L 3.5-10.5 RED BLOOD CELL COUNT (BEAKER) (test likz=281) 3.10 M/ L 3.93-5.22 HEMOGLOBIN (BEAKER) (test dqup=655) 8.8 GM/DL 11.2-15.7 HEMATOCRIT (BEAKER) (test ybtf=296) 28.3 % 34.1-44.9 MEAN CORPUSCULAR VOLUME (BEAKER) (test xais=950) 91.3 fL 79.4-94.8 MEAN CORPUSCULAR HEMOGLOBIN (BEAKER) (test 28.4 pg 25.6-32.2 tbfx=232) MEAN CORPUSCULAR HEMOGLOBIN CONC (BEAKER) (test 31.1 GM/DL 32.2-35.5 gdlt=004) RED CELL DISTRIBUTION WIDTH (BEAKER) (test 14.1 % 11.7-14.4 ssuk=038) PLATELET COUNT (BEAKER) (test esri=181) 150 K/CU MM 150-450 MEAN PLATELET VOLUME (BEAKER) (test gzer=240) 10.6 fL 9.4-12.3 NUCLEATED RED BLOOD CELLS (BEAKER) (test 0 /100 WBC 0-0 ntku=380) NEUTROPHILS RELATIVE PERCENT (BEAKER) (test 74 % fhxo=281) LYMPHOCYTES RELATIVE PERCENT (BEAKER) (test 11 % swwm=851) MONOCYTES RELATIVE PERCENT (BEAKER) (test 10 % cupa=526) EOSINOPHILS RELATIVE PERCENT (BEAKER) (test 4 % unmf=569) BASOPHILS RELATIVE PERCENT (BEAKER) (test 1 % wlja=426) NEUTROPHILS ABSOLUTE COUNT (BEAKER) (test 4.91 K/ L 1.56-6.13 egcq=363) LYMPHOCYTES ABSOLUTE COUNT (BEAKER) (test 0.74 K/ L 1.18-3.74 dzvj=568) MONOCYTES ABSOLUTE COUNT (BEAKER) (test 0.65 K/ L 0.24-0.36 okkd=643) EOSINOPHILS ABSOLUTE COUNT (BEAKER) (test 0.29 K/ L 0.04-0.36 efgy=629) BASOPHILS ABSOLUTE COUNT (BEAKER) (test 0.03 K/ L 0.01-0.08 afsi=386) IMMATURE GRANULOCYTES-RELATIVE PERCENT (BEAKER) 0 % 0-1 (test phpi=1490) TROPONIN [id number] 01:22:00 Test Item Value Reference Range Comments TROPONIN I (BEAKER) (test xjji=213) 0.19 ng/mL 0.00-0.03 Troponin I (TnI) levels [...] acidosis, acute neurological disease, and persistent tachyarrhythmia.POCT-GLUCOSE [id number] 00:49:00 Test Item Value Reference Range Comments POC-GLUCOSE METER (BEAKER) 74 mg/dL 70-[address] [facility] [address] [place] [address] (test qxht=5040) [facility] [address] TROPONIN [id number] 18:57:00 Test Item Value Reference Range Comments TROPONIN I (BEAKER) (test qihr=034) 0.17 ng/mL 0.00-0.03 Troponin I (TnI) levels [...] acute neurological disease, and persistent tachyarrhythmia.VANCOMYCIN LEVEL, [id number] 18:52 :00 Test Item Value Reference Range Comments VANCOMYCIN RANDOM (BEAKER) (test jkdb=122) 29.2 ug/mL Reference Range: No NormalsLACTATE DEHYDROGENASE (LDH)2017-01-02 18:46:00 Test Item Value Reference Range Comments LACTATE DEHYDROGENASE (BEAKER) (test vjpo=150) 300 U/L 125-220 BODY FLUID CELL COUNT WITH [id number] 18:36:00 Test Item Value Reference Range Comments APPEARANCE FLUID (BEAKER) (test dfqp=688) Slightly Hazy Clear COLOR FLUID (BEAKER) (test mvif=796) Yellow Colorless, Straw RBC FLUID (BEAKER) (test hnfn=500) 690 /cu mm <=1 ADJUSTED WBC FLUID (BEAKER) (test tdyq=7112) 68 /cu mm <=5 LINING CELLS (BEAKER) (test ievy=6292) 2 /cu mm <=1 NEUTROPHILS FLUID (BEAKER) (test tsot=2608) 2 % LYMPHS FLUID (BEAKER) (test kzxq=642) 9 % MONO/MACROPHAGE FLUID (BEAKER) (test 89 % adkl=155) EOSINOPHILS FLUID (BEAKER) (test bvjz=542) 0 % BASO FLUID (BEAKER) (test qlkm=554) 0 % CONTAINER BODY FLUID (BEAKER) (test EDTA Tube mlbu=9583) RAD, CHEST, 1 VIEW, NON [id number] 18:36:00PT started dialysis 07/12/2015 Reason for exam:->s/p thoraFINAL REPORT Comparison: TECHNIQUE: Single view of the chest FINDINGS: Right pleural effusion has decreased. No pneumothorax bilaterally. No other significant change. Signed : Turner Grierort Verified Date/Time: 01/02/2017 18:36:30 Reading Location : [facility] [id number] Consult Reading Room PH, BODY [id number] 18:22:00 Test Item Value Reference Range Comments PH, BODY FLUID (BEAKER) (test xwzk=1539) 7.80 POCT-GLUCOSE [id number] 18:19:00 Test Item Value Reference Range Comments POC-GLUCOSE METER (BEAKER) 91 mg/dL 70-[address] [facility] [address] [facility] (test eibk=8978) [facility] [address] LACTATE DEHYDROGENASE (LDH), BODY [id number] 18:04:00 Test Item Value Reference Range Comments LACTATE DEHYDROGENASE FLUID (BEAKER) 123 U/L Light's criteria identifies (test htxg=751) effusions if one or more are pre Absence of reference range indicates that normals have not been defined.Assay performance has not been validated for this type of specimen.PROTEIN, BODY [id number] 18:04:00 Test Item Value Reference Range Comments PROTEIN FLUID (BEAKER) (test 2.1 g/dL Light's criteria identifies liqv=263) effusions if one or more are pre Absence of reference range indicates that normals have not been defined.Assay performance has not been validated for this type of specimen.HEPATITIS B [id number] 13:51:00 Test Item Value Reference Range Comments HEPATITIS B CORE TOTAL ANTIBODY (BEAKER) (test Nonreactive Nonreactive zjih=924) HEPATITIS B SURFACE ANTIBODY (BEAKER) (test 29.1 mIU/mL <8.0 crqz=552) HEPATITIS B SURFACE ANTIGEN (2) (BEAKER) (test Nonreactive Nonreactive tfds=8171) CREATINE KINASE (CK), TOTAL AND [id number] 13:09:00 Test Item Value Reference Range Comments CREATINE KINASE TOTAL (BEAKER) (test janp=565) 285 U/L 29-200 CREATINE KINASE-MB (BEAKER) (test gcdz=169) 15.2 ng/mL 0.0-6.6 CREATINE KINASE-MB INDEX (BEAKER) (test qcer=250) 5.3 % CK-MB Reference Range:<6.7 Normal6.7-10.0 Borderline>10.0 AbnormalTROPONIN [id number] 13:09:00 Test Item Value Reference Range Comments TROPONIN I (BEAKER) (test iigo=186) 0.18 ng/mL 0.00-0.03 Troponin I (TnI) levels [...] acidosis, acute neurological disease, and persistent tachyarrhythmia.POCT-GLUCOSE [id number] 12:25:00 Test Item Value Reference Range Comments POC-GLUCOSE METER (BEAKER) 95 mg/dL 70-110 TESTED AT [address] (test irqg=1579) [place] [address] POCT-GLUCOSE [id number] 11:56:00 Test Item Value Reference Range Comments POC-GLUCOSE METER (BEAKER) 65 mg/dL 70-110 Notified MILA IGLESIAS/TESTED AT [facility] (test ofly=5259) [address] [place], [place] [id number] BASIC METABOLIC [id number] 06:05:00 Test Item Value Reference Range Comments SODIUM (BEAKER) (test 133 meq/L 136-145 tmkh=977) POTASSIUM (BEAKER) (test 4.5 meq/L 3.5-5.1 hexq=804) CHLORIDE (BEAKER) (test 98 meq/L 98-107 rrbi=617) CO2 (BEAKER) (test 27 meq/L 22-29 gxym=056) BLOOD UREA NITROGEN 48 mg/dL 7-21 (BEAKER) (test vsjt=864) CREATININE (BEAKER) (test 10.70 mg/dL 0.57-1.25 qqsu=107) GLUCOSE RANDOM (BEAKER) 77 mg/dL 70-105 (test hjrq=315) CALCIUM (BEAKER) (test 8.7 mg/dL 8.4-10.2 hopd=175) EGFR (BEAKER) (test 5 mL/min/1.73 sq m ESTIMATED GFR IS NOT jyrf=1468) ACCURATE CREATININE CLEARANCE IN PREDICTING GLOMERULAR FILTRATION RATE. ESTIMATED GFR IS NOT APPLICABLE FOR DIALYSIS PATIENTS. TROPONIN [id number] 06:04:00 Test Item Value Reference Range Comments TROPONIN I (BEAKER) (test cblh=044) 0.23 ng/mL 0.00-0.03 Troponin I (TnI) levels [...] failure, acidosis, acute neurological disease, and persistent tachyarrhythmia.[id number] 06:03:00 Test Item Value Reference Range Comments MAGNESIUM (BEAKER) (test yais=084) 1.9 mg/dL 1.6-2.6 CBC W/PLT COUNT & AUTO [id number] 05:59:00 Test Item Value Reference Range Comments WHITE BLOOD CELL COUNT (BEAKER) (test joru=021) 7.9 K/ L 3.5-10.5 RED BLOOD CELL COUNT (BEAKER) (test jzhw=676) 3.72 M/ L 3.93-5.22 HEMOGLOBIN (BEAKER) (test kgyh=548) 10.5 GM/DL 11.2-15.7 HEMATOCRIT (BEAKER) (test jgno=335) 33.7 % 34.1-44.9 MEAN CORPUSCULAR VOLUME (BEAKER) (test akxq=946) 90.6 fL 79.4-94.8 MEAN CORPUSCULAR HEMOGLOBIN (BEAKER) (test 28.2 pg 25.6-32.2 verr=730) MEAN CORPUSCULAR HEMOGLOBIN CONC (BEAKER) (test 31.2 GM/DL 32.2-35.5 ipdg=349) RED CELL DISTRIBUTION WIDTH (BEAKER) (test 14.4 % 11.7-14.4 sdjr=845) PLATELET COUNT (BEAKER) (test bypl=722) 160 K/CU MM 150-450 MEAN PLATELET VOLUME (BEAKER) (test hkni=630) 10.3 fL 9.4-12.3 NUCLEATED RED BLOOD CELLS (BEAKER) (test 0 /100 WBC 0-0 cmso=062) NEUTROPHILS RELATIVE PERCENT (BEAKER) (test 80 % hoxu=627) LYMPHOCYTES RELATIVE PERCENT (BEAKER) (test 8 % adsp=582) MONOCYTES RELATIVE PERCENT (BEAKER) (test 9 % kmhy=421) EOSINOPHILS RELATIVE PERCENT (BEAKER) (test 2 % ylaa=284) BASOPHILS RELATIVE PERCENT (BEAKER) (test 1 % njhj=565) NEUTROPHILS ABSOLUTE COUNT (BEAKER) (test 6.31 K/ L 1.56-6.13 togx=444) LYMPHOCYTES ABSOLUTE COUNT (BEAKER) (test 0.62 K/ L 1.18-3.74 njek=706) MONOCYTES ABSOLUTE COUNT (BEAKER) (test 0.67 K/ L 0.24-0.36 ptxb=116) EOSINOPHILS ABSOLUTE COUNT (BEAKER) (test 0.18 K/ L 0.04-0.36 oarg=371) BASOPHILS ABSOLUTE COUNT (BEAKER) (test 0.04 K/ L 0.01-0.08 jokn=250) IMMATURE GRANULOCYTES-RELATIVE PERCENT (BEAKER) 0 % 0-1 (test gtnj=8058) TROPONIN [id number] 01:42:00 Test Item Value Reference Range Comments TROPONIN I (BEAKER) (test uutm=447) 0.23 ng/mL 0.00-0.03 Troponin I (TnI) levels [...] acute neurological disease, and persistent tachyarrhythmia.BASIC METABOLIC [id number] 01:37:00 Test Item Value Reference Range Comments SODIUM (BEAKER) (test 136 meq/L 136-145 kdpb=967) POTASSIUM (BEAKER) (test 5.6 meq/L 3.5-5.1 bhfq=643) CHLORIDE (BEAKER) (test 100 meq/L 98-107 vjxc=931) CO2 (BEAKER) (test 24 meq/L 22-29 esul=521) BLOOD UREA NITROGEN 66 mg/dL 7-21 (BEAKER) (test vknm=784) CREATININE (BEAKER) (test 15.28 mg/dL 0.57-1.25 lxsb=244) GLUCOSE RANDOM (BEAKER) 70 mg/dL 70-105 (test jqax=560) CALCIUM (BEAKER) (test 8.4 mg/dL 8.4-10.2 tven=616) EGFR (BEAKER) (test 3 mL/min/1.73 sq m ESTIMATED GFR IS NOT doam=0546) ACCURATE CREATININE CLEARANCE IN PREDICTING GLOMERULAR FILTRATION RATE. ESTIMATED GFR IS NOT APPLICABLE FOR DIALYSIS PATIENTS. [id number] 01:30:00 Test Item Value Reference Range Comments MAGNESIUM (BEAKER) (test bllg=106) 1.5 mg/dL 1.6-2.6 POCT-GLUCOSE [id number] 00:03:00 Test Item Value Reference Range Comments POC-GLUCOSE METER (BEAKER) 76 mg/dL 70-[address] [facility] [address] [facility] (test mzlr=5242) [facility] [address] POCT-GLUCOSE [id number] 22:26:00 Test Item Value Reference Range Comments POC-GLUCOSE METER (BEAKER) 60 mg/dL 70-[address] [facility] [address] [facility] (test ldka=2188) [facility] [address] TROPONIN [id number] 21:46:00 Test Item Value Reference Range Comments TROPONIN I (BEAKER) (test rtwi=490) 0.23 ng/mL 0.00-0.03 Troponin I (TnI) levels [...] acute neurological disease, and persistent tachyarrhythmia.BASIC METABOLIC [id number] 21:38:00 Test Item Value Reference Range Comments SODIUM (BEAKER) (test 135 meq/L 136-145 hxwm=099) POTASSIUM (BEAKER) (test 6.0 meq/L 3.5-5.1 gtlp=165) CHLORIDE (BEAKER) (test 97 meq/L 98-107 ntve=505) CO2 (BEAKER) (test 26 meq/L 22-29 gjpi=409) BLOOD UREA NITROGEN 78 mg/dL 7-21 (BEAKER) (test ctzo=740) CREATININE (BEAKER) (test 17.30 mg/dL 0.57-1.25 yupb=813) GLUCOSE RANDOM (BEAKER) 66 mg/dL 70-105 (test rqft=001) CALCIUM (BEAKER) (test 8.5 mg/dL 8.4-10.2 mvxk=864) EGFR (BEAKER) (test 3 mL/min/1.73 sq m ESTIMATED GFR IS NOT jhom=9452) ACCURATE CREATININE CLEARANCE IN PREDICTING GLOMERULAR FILTRATION RATE. ESTIMATED GFR IS NOT APPLICABLE FOR DIALYSIS PATIENTS. [id number] 21:35:00 Test Item Value Reference Range Comments MAGNESIUM (BEAKER) (test rkyj=564) 1.6 mg/dL 1.6-2.6 [id number] 21:34:00 Test Item Value Reference Range Comments PHOSPHORUS (BEAKER) (test emto=437) 7.7 mg/dL 2.3-4.7 RAD, CHEST, 1 VIEW, NON [id number] 21:30:00PT started dialysis 2015Reason for exam:->Line placementShould [...] Verified Date/Time: 01/01/2017 21:30: 48 Reading Location: [place] [address]Y CT Body Reading Room BODY FLUID CELL COUNT WITH [id number] 20:13:00 Test Item Value Reference Range Comments APPEARANCE FLUID (BEAKER) (test otxc=940) Cloudy Clear COLOR FLUID (BEAKER) (test wfvx=085) Straw Colorless, Straw RBC FLUID (BEAKER) (test bkid=626) 2071 /cu mm <=1 ADJUSTED WBC FLUID (BEAKER) (test ldyz=3145) 156 /cu mm <=5 LINING CELLS (BEAKER) (test majk=9862) 2 /cu mm <=1 NEUTROPHILS FLUID (BEAKER) (test scpa=9193) 3 % LYMPHS FLUID (BEAKER) (test ldqy=719) 42 % MONO/MACROPHAGE FLUID (BEAKER) (test hamc=928) 55 % EOSINOPHILS FLUID (BEAKER) (test rigo=688) 0 % BASO FLUID (BEAKER) (test jsrr=783) 0 % CONTAINER BODY FLUID (BEAKER) (test hrpq=8729) EDTA Tube COMPREHENSIVE METABOLIC [id number] 19:19:00 Test Item Value Reference Range Comments TOTAL PROTEIN (BEAKER) 7.3 gm/dL 6.0-8.3 Specimen slightly (test tksf=047) hemolyzed ALBUMIN (BEAKER) (test 2.4 g/dL 3.5-5.0 Specimen slightly nfnk=5507) hemolyzed ALKALINE PHOSPHATASE 74 U/L 40-150 (BEAKER) (test qhxy=748) BILIRUBIN TOTAL (BEAKER) 0.5 mg/dL 0.2-1.2 Specimen slightly (test skzk=532) hemolyzed SODIUM (BEAKER) (test 135 meq/L 136-145 mtrn=149) POTASSIUM (BEAKER) (test 5.7 meq/L 3.5-5.1 Specimen slightly yvzi=353) hemolyzed CHLORIDE (BEAKER) (test 97 meq/L 98-107 jkxn=172) CO2 (BEAKER) (test 26 meq/L 22-29 ctil=234) BLOOD UREA NITROGEN 72 mg/dL 7-21 (BEAKER) (test ochs=261) CREATININE (BEAKER) (test 17.18 mg/dL 0.57-1.25 Specimen slightly mfyp=434) hemolyzed GLUCOSE RANDOM (BEAKER) 70 mg/dL 70-105 (test dgzn=174) CALCIUM (BEAKER) (test 8.8 mg/dL 8.4-10.2 phuu=662) AST (SGOT) (BEAKER) (test 37 U/L 5-34 Specimen slightly pgza=474) hemolyzed ALT (SGPT) (BEAKER) (test 30 U/L 6-55 Specimen slightly fjar=978) hemolyzed EGFR (BEAKER) (test 3 mL/min/1.73 sq m ESTIMATED GFR IS NOT eywj=4688) ACCURATE CREATININE CLEARANCE IN PREDICTING GLOMERULAR FILTRATION RATE. ESTIMATED GFR IS NOT APPLICABLE FOR DIALYSIS PATIENTS. RAD, CHEST, 1 VIEW, NON [id number] 18:48:00PT started dialysis 07/12/2015 Reason for exam:->s/p left thoracentesis Should this be performed at the bedside?->YesFINAL REPORT Comparison: 01/01/2017 TECHNIQUE: Single view of the chest FINDINGS: Left pleural effusion has decreased. No pneumothorax bilaterally. Interval placement of a right internal jugular catheter. Tip projects in the mid SVC. No other gross change. Signed: Turner Grier MDReport Verified Date/Time: 01/01/2017 18:48:26 Reading Location: [address] Transitional Reading Room POCT-GLUCOSE [id number] 18:23:00 Test Item Value Reference Range Comments POC-GLUCOSE METER (BEAKER) 79 mg/dL 70-110 TESTED AT [address] (test dvrc=6911) [place] [address] [id number] 18:09:00 Test Item Value Reference Range Comments AMMONIA (BEAKER) (test 9 mol/L 18-72 Specimen markedly hemolyzed ycdi=255) [id number] 18:08:00 Test Item Value Reference Range Comments MAGNESIUM (BEAKER) (test 2.8 mg/dL 1.6-2.6 Specimen markedly hemolyzed ophq=047) [id number] 18:08:00 Test Item Value Reference Range Comments PHOSPHORUS (BEAKER) (test 8.1 mg/dL 2.3-4.7 Specimen markedly hemolyzed dsix=419) POCT-GLUCOSE [id number] 18:07:00 Test Item Value Reference Range Comments POC-GLUCOSE METER (BEAKER) 81 mg/dL 70-110 TESTED AT [address] (test hqtl=8942) [place] [address] LACTIC ACID, ARTERIAL, WHOLE [id number] 17:14:00 Test Item Value Reference Range Comments LACTATE BLOOD ARTERIAL (2) 0.9 mmol/L 0.5-2.2 Specimen slightly hemolyzed (BEAKER) (test qkbh=1521) Effective 07/15/2015: Units/Reference Range ChangeNew: 0.5-2.2 mmol/L Previous: 5 -20 mg/[id number] 17:12:00 Test Item Value Reference Range Comments PROCALCITONIN (BEAKER) (test fxih=7343) 0.72 ng/mL <0.05 SEPSIS RISK (ng/mL)Low: 0.05-0.50Intermediate: 0.51-2.00High: & gt;=2.01TROPONIN [id number] 16:56:00 Test Item Value Reference Range Comments TROPONIN I (BEAKER) (test ptvt=604) 0.25 ng/mL 0.00-0.03 Troponin I (TnI) levels [...] and persistent tachyarrhythmia.CREATINE KINASE (CK), TOTAL AND [id number] 16:52:00 Test Item Value Reference Range Comments CREATINE KINASE TOTAL (BEAKER) (test amte=965) 662 U/L 29-200 CREATINE KINASE-MB (BEAKER) (test bbib=661) 17.6 ng/mL 0.0-6.6 CREATINE KINASE-MB INDEX (BEAKER) (test qadk=805) 2.7 % CK-MB Reference Range:<6.7 Normal6.7-10.0 Borderline>10.0 AbnormalB-TYPE NATRIURETIC FACTOR (BNP)2017-01-01 16:52:00 Test Item Value Reference Range Comments B-TYPE NATRIURETIC PEPTIDE (BEAKER) (test 2749 pg/mL 0-100 eiow=146) BLOOD GAS, [id number] 16:50:00 Test Item Value Reference Range Comments PH ARTERIAL (BEAKER) (test wscn=718) 7.40 7.35-7.45 PCO2 ARTERIAL (BEAKER) (test zbzt=042) 48 mmHg 35-45 PO2 ARTERIAL (BEAKER) (test yrbf=961) 80 mmHg 80-90 O2 SATURATION ARTERIAL (BEAKER) (test cpnp=646) 96.0 % 96.0-97.0 HCO3 ARTERIAL (BEAKER) (test arrj=688) 29 mmol/L 21-29 BASE EXCESS ARTERIAL (BEAKER) (test kmfv=449) 3.6 mmol/L -2.0-3.0 PATIENT TEMPERATURE (BEAKER) (test qcjo=6387) 36.5 C FIO2 (BEAKER) (test pvum=4361) 21.0 % [id number] 16:46:00 Test Item Value Reference Range Comments PHOSPHORUS (BEAKER) (test 7.9 mg/dL 2.3-4.7 Specimen markedly hemolyzed abqq=276) [id number] 16:46:00 Test Item Value Reference Range Comments LIPASE (BEAKER) (test osvi=058) 38 U/L 8-78 CALCIUM, [id number] 16:46:00 Test Item Value Reference Range Comments CALCIUM IONIZED (BEAKER) (test saax=950) 1.00 mmol/L 1.12-1.27 PH, BLOOD (BEAKER) (test xshd=3599) 7.36 PROTHROMBIN [id number] 16:43:00 Test Item Value Reference Range Comments PROTIME (BEAKER) (test llop=346) 16.2 seconds 11.7-14.7 INR (BEAKER) (test axht=416) 1.3 <=5.9 RECOMMENDED COUMADIN/WARFARIN INR THERAPY RANGESSTANDARD DOSE: 2.0 - 3.0 Includes: PROPHYLAXIS forvenous thrombosis, systemic embolization; TREATMENT for venous thrombosis and/or pulmonary embolus.HIGH RISK: Target INR is 2.5-3.5 for patients with mechanical heart valves.CBC W/PLT COUNT & AUTO [id number] 16:30:00 Test Item Value Reference Range Comments WHITE BLOOD CELL COUNT (BEAKER) (test meaf=228) 6.9 K/ L 3.5-10.5 RED BLOOD CELL COUNT (BEAKER) (test oruv=880) 3.41 M/ L 3.93-5.22 HEMOGLOBIN (BEAKER) (test zshs=768) 9.9 GM/DL 11.2-15.7 HEMATOCRIT (BEAKER) (test assg=752) 30.7 % 34.1-44.9 MEAN CORPUSCULAR VOLUME (BEAKER) (test rwyv=604) 90.0 fL 79.4-94.8 MEAN CORPUSCULAR HEMOGLOBIN (BEAKER) (test 29.0 pg 25.6-32.2 iqmp=411) MEAN CORPUSCULAR HEMOGLOBIN CONC (BEAKER) (test 32.2 GM/DL 32.2-35.5 rdau=685) RED CELL DISTRIBUTION WIDTH (BEAKER) (test 14.6 % 11.7-14.4 xrcv=863) PLATELET COUNT (BEAKER) (test noum=803) 235 K/CU MM 150-450 MEAN PLATELET VOLUME (BEAKER) (test twdg=074) 11.2 fL 9.4-12.3 NUCLEATED RED BLOOD CELLS (BEAKER) (test 0 /100 WBC 0-0 xeaj=972) NEUTROPHILS RELATIVE PERCENT (BEAKER) (test 76 % boyl=930) LYMPHOCYTES RELATIVE PERCENT (BEAKER) (test 12 % lvws=093) MONOCYTES RELATIVE PERCENT (BEAKER) (test 10 % vrdo=511) EOSINOPHILS RELATIVE PERCENT (BEAKER) (test 1 % rkrd=768) BASOPHILS RELATIVE PERCENT (BEAKER) (test 0 % yeut=806) NEUTROPHILS ABSOLUTE COUNT (BEAKER) (test 5.23 K/ L 1.56-6.13 bueu=822) LYMPHOCYTES ABSOLUTE COUNT (BEAKER) (test 0.86 K/ L 1.18-3.74 trzj=525) MONOCYTES ABSOLUTE COUNT (BEAKER) (test 0.68 K/ L 0.24-0.36 hvgw=475) EOSINOPHILS ABSOLUTE COUNT (BEAKER) (test 0.10 K/ L 0.04-0.36 lbum=671) BASOPHILS ABSOLUTE COUNT (BEAKER) (test 0.02 K/ L 0.01-0.08 sprc=045) IMMATURE GRANULOCYTES-RELATIVE PERCENT (BEAKER) 0 % 0-1 (test dwyb=2911) RAD, CHEST, 1 VIEW, NON [id number] 15:22:00PT started dialysis 2015Post-intubationReason for exam:->sobShould [facility]?->YesFINAL REPORT Comparison: 06/07/2016 TECHNIQUE: Single view of the chest FINDINGS: There is a moderate to large left pleural effusion and moderate right pleural effusion with nonspecific adjacent airspace disease. Cardiac silhouette is obscured. No gross pneumothorax. No acute skeletal abnormality. Signed: Turner Griereport Verified Date/Time: 15:22:20 Reading Location: [address] Transitional Reading Room BODY FLUID CULTURE + GRAM [id number] 11:17:00 Test Item Value Reference Range Comments CULTURE (BEAKER) (test mfuc=5299) No growth GRAM STAIN RESULT (BEAKER) (test <1+ WBCs qicp=4991) GRAM STAIN RESULT (BEAKER) (test No organisms seen rjzk=12560) [id number] 15:47:00Medical Cytology Report Case: [id number] Authorizing Provider: Verena Carrero MD Collected: 12/12/2016 1540 Ordering Location: [facility] Laboratory Received: 12/13/2016 1002 Pathologist: Gokul Hood MD Specimen: Pleural, Right RIGHT PLEURAL FLUID (CYTOSPINS): - NEGATIVE FOR MALIGNANT CELLS Signing Pathologist Direct Phone Line: [phone] signed by Gokul Hood MD on 12/13/2016 at 3:47 PMReactive mesothelialcells are noted.62713Ngzoh pleural effusion; CHFRIGHT PLEURAL FLUID4 cytospins prepared from 200 ml yellow fluidCollected: [id number]: [id number] [facility] Departmentof Pathology, [address] [place] [address], [facility] of [facility], [address] [place] [address] , JMMCOQWR GRAVITY, BODY [id number] 15:33:00 Test Item Value Reference Range Comments SP GRAVITY MISCELLANEOUS (BEAKER) (test vlta=375) 1.019 Reference Range: No NormalsBODY FLUID [id number] 11:49:00 Test Item Value Reference Range Comments CRYSTALS, BODY FLUID (BEAKER) No crystals seen. (test rvri=0493) [id number] (BEAKER) Anne Yen MD (electronic (test ncon=9262) signature) PH, BODY [id number] 00:24:00 Test Item Value Reference Range Comments PH, BODY FLUID (BEAKER) (test ihcw=9402) 7.90 BODY FLUID CELL COUNT WITH [id number] 19:53:00 Test Item Value Reference Range Comments APPEARANCE FLUID (BEAKER) (test demx=018) Clear Clear COLOR FLUID (BEAKER) (test tmnc=227) Straw Colorless, Straw RBC FLUID (BEAKER) (test alaa=205) 1 /cu mm <=1 ADJUSTED WBC FLUID (BEAKER) (test zndn=1430) 21 /cu mm <=5 LINING CELLS (BEAKER) (test lvkn=7130) 0 /cu mm <=1 NEUTROPHILS FLUID (BEAKER) (test obqu=1320) 0 % LYMPHS FLUID (BEAKER) (test zaeu=375) 8 % MONO/MACROPHAGE FLUID (BEAKER) (test kqeh=110) 92 % EOSINOPHILS FLUID (BEAKER) (test nrki=064) 0 % BASO FLUID (BEAKER) (test fpob=499) 0 % CONTAINER BODY FLUID (BEAKER) (test mzai=3027) EDTA Tube ALBUMIN, BODY [id number] 19:31:00 Test Item Value Reference Range Comments ALBUMIN FLUID (BEAKER) (test dycd=194) 0.9 gm/dL Reference Range: No Normals Assay performance has not been validated for this type of specimen.RIGHT THORACENTESIS, PLEURAL FLUIDRIGHT THORACENTESIS, PLEURAL FLUIDRIGHT THORACENTESIS, PLEURAL FLUIDRIGHT THORACENTESIS, PLEURAL FLUIDRIGHT THORACENTESIS, PLEURAL FLUIDRIGHT THORACENTESIS, PLEURAL FLUIDCREATININE, BODY [id number] 19:31:00 Test Item Value Reference Range Comments CREATININE FLUID (BEAKER) (test hzme=248) 15.62 mg/dL Reference Range: No Normals Assay performance has not been validated for this type of specimen.RIGHT THORACENTESIS, PLEURAL FLUIDRIGHT THORACENTESIS, PLEURAL FLUIDRIGHT THORACENTESIS, PLEURAL FLUIDRIGHT THORACENTESIS, PLEURAL FLUIDRIGHT THORACENTESIS, PLEURAL FLUIDRIGHT THORACENTESIS, PLEURAL FLUIDAMYLASE, BODY [id number] 19:27:00 Test Item Value Reference Range Comments AMYLASE FLUID (BEAKER) (test nnka=987) 39 U/L Absence of reference range indicates that normals have not been defined.Assay performance has not been validated for this type of specimen.RIGHT THORACENTESIS , PLEURAL FLUIDRIGHT THORACENTESIS, PLEURALFLUIDRIGHT THORACENTESIS, PLEURAL FLUIDRIGHT THORACENTESIS, PLEURAL FLUIDRIGHT THORACENTESIS, PLEURAL FLUIDRIGHT THORACENTESIS, PLEURAL FLUIDLACTATE DEHYDROGENASE (LDH), BODY [id number] 19 :27:00 Test Item Value Reference Range Comments LACTATE DEHYDROGENASE FLUID (BEAKER) (test fkzl=878) 113 U/L Absence of reference range indicates that normals have not been defined.Assay performance has not been validated for this type of specimen.RIGHT THORACENTESIS , PLEURAL FLUIDRIGHT THORACENTESIS, PLEURALFLUIDRIGHT THORACENTESIS, PLEURAL FLUIDRIGHT THORACENTESIS, PLEURAL FLUIDRIGHT THORACENTESIS, PLEURAL FLUIDRIGHT THORACENTESIS, PLEURAL FLUIDPROTEIN, BODY [id number] 19:27:00 Test Item Value Reference Range Comments PROTEIN FLUID (BEAKER) (test okws=600) 2.1 g/dL Absence of reference range indicates that normals have not been defined.Assay performance has not been validated for this type of specimen.RIGHT THORACENTESIS , PLEURAL FLUIDRIGHT THORACENTESIS, PLEURALFLUIDRIGHT THORACENTESIS, PLEURAL FLUIDRIGHT THORACENTESIS, PLEURAL FLUIDRIGHT THORACENTESIS, PLEURAL FLUIDRIGHT THORACENTESIS, PLEURAL FLUIDGLUCOSE, BODY [id number] 19:27:00 Test Item Value Reference Range Comments GLUCOSE, BODY FLUID (BEAKER) (test brmf=8082) 172 mg/dL Absence of reference range indicates that normals have not been defined.Assay performance has not been validated for this type of specimen.RIGHT THORACENTESIS , PLEURAL FLUIDRIGHT THORACENTESIS, PLEURALFLUIDRIGHT THORACENTESIS, PLEURAL FLUIDRIGHT THORACENTESIS, PLEURAL FLUIDRIGHT THORACENTESIS, PLEURAL FLUIDRIGHT THORACENTESIS, PLEURAL FLUIDAFB CULTURE + [id number] 18:17:00 Test Item Value Reference Range Comments CULTURE (BEAKER) (test No acid-fast bacilli isolated xacj=9745) in 42 days AFB SMEAR (BEAKER) (test No acid fast bacilli seen ihva=201) FUNGUS CULTURE + [id number] 19:24:00 Test Item Value Reference Range Comments CULTURE (BEAKER) (test No fungus isolated in 28 days lrie=5378) FUNGUS SMEAR (BEAKER) (test No fungi seen agfl=0950) BLOOD [id number] 08:20:00 Test Item Value Reference Range Comments CULTURE (BEAKER) (test agal=6645) No growth in 5 days BLOOD [id number] 08:13:00 Test Item Value Reference Range Comments CULTURE (BEAKER) (test wgxa=9146) No growth in 5 days POCT-GLUCOSE [id number] 08:25:00 Test Item Value Reference Range Comments POC-GLUCOSE METER (BEAKER) 244 mg/dL 70-[address] [facility] [address] [facility] (test xszw=7538) [facility] [address] BASIC METABOLIC [id number] 05:31:00 Test Item Value Reference Range Comments SODIUM (BEAKER) (test 134 meq/L 136-145 uayl=429) POTASSIUM (BEAKER) (test 4.1 meq/L 3.5-5.1 ybze=529) CHLORIDE (BEAKER) (test 96 meq/L 98-107 khdt=760) CO2 (BEAKER) (test 23 meq/L 22-29 gfti=507) BLOOD UREA NITROGEN 58 mg/dL 7-21 (BEAKER) (test mvpe=424) CREATININE (BEAKER) (test 16.21 mg/dL 0.57-1.25 tnkj=914) GLUCOSE RANDOM (BEAKER) 224 mg/dL 70-105 (test nbap=024) CALCIUM (BEAKER) (test 8.7 mg/dL 8.4-10.2 ayrt=227) EGFR (BEAKER) (test 3 mL/min/1.73 sq m ESTIMATED GFR IS NOT obrl=5008) ACCURATE CREATININE CLEARANCE IN PREDICTING GLOMERULAR FILTRATION RATE. ESTIMATED GFR IS NOT APPLICABLE FOR DIALYSIS PATIENTS. [id number] 05:27:00 Test Item Value Reference Range Comments MAGNESIUM (BEAKER) (test dcgz=967) 2.2 mg/dL 1.6-2.6 CBC (HEMOGRAM ONLY)2016-06-09 05:22:00 Test Item Value Reference Range Comments WHITE BLOOD CELL COUNT (BEAKER) (test jymd=555) 5.7 K/ L 4.0-10.0 RED BLOOD CELL COUNT (BEAKER) (test rywa=767) 3.51 M/ L 4.00-5.00 HEMOGLOBIN (BEAKER) (test ouyu=557) 9.9 GM/DL 12.0-15.0 HEMATOCRIT (BEAKER) (test fgid=626) 30.6 % 36.0-45.0 MEAN CORPUSCULAR VOLUME (BEAKER) (test piui=947) 87.2 fL 82.0-99.0 MEAN CORPUSCULAR HEMOGLOBIN (BEAKER) (test 28.2 pg 27.0-33.0 efpq=795) MEAN CORPUSCULAR HEMOGLOBIN CONC (BEAKER) (test 32.4 GM/DL 32.0-36.0 munq=985) RED CELL DISTRIBUTION WIDTH (BEAKER) (test 18.2 % 10.3-14.2 pehj=635) PLATELET COUNT (BEAKER) (test rxan=379) 214 K/CU MM 150-430 MEAN PLATELET VOLUME (BEAKER) (test ucud=808) 10.0 fL 6.5-10.5 NUCLEATED RED BLOOD CELLS (BEAKER) (test 0 /100 WBC 0-0 nvcp=445) 0.00POCT-GLUCOSE [id number] 00:54:00 Test Item Value Reference Range Comments POC-GLUCOSE METER (BEAKER) 124 mg/dL 70-110 TESTED AT [address] (test enmj=5176) [place] [address] POCT-GLUCOSE [id number] 17:10:00 Test Item Value Reference Range Comments POC-GLUCOSE METER (BEAKER) 146 mg/dL 70-110 TESTED AT [address] (test rtlx=9054) [place] [address] BODY FLUID CULTURE + GRAM [id number] 15:37:00 Test Item Value Reference Range Comments CULTURE (BEAKER) (test cciq=6576) No growth GRAM STAIN RESULT (BEAKER) (test No WBCs ppcm=5338) GRAM STAIN RESULT (BEAKER) (test No organisms seen oqmk=49388) PERITONEAL DIALYSIS EFFLUENT [id number] 15:25:00 Test Item Value Reference Range Comments CULTURE (BEAKER) (test gpgg=1415) No growth POCT-GLUCOSE [id number] 12:03:00 Test Item Value Reference Range Comments POC-GLUCOSE METER (BEAKER) 170 mg/dL 70-110 TESTED AT [address] (test aqoh=1420) [place] [address] HEPATITIS C PCR, [id number] 09:44:00 Test Item Value Reference Range Comments HCV NUMERIC RESULT (BEAKER) (test vuxp=4879) 166005 IU/mL <15 This test uses a Real-Time Polymerase Chain Reaction (RT-PCR) methodology and was performed using SHELLY Ampliprep/SHELLY TaqMan HCV test kit version 2.0 ( [employer]).Reportable range for this assay is 15 - 100,000, 000 IU per mL (1.18 - 8.00 Log IU/mL).POCT-GLUCOSE [id number] 08:07:00 Test Item Value Reference Range Comments POC-GLUCOSE METER (BEAKER) 183 mg/dL 70-[address] [facility] [address] [facility] (test fgqf=7905) [facility] [address] CBC (HEMOGRAM ONLY)2016-06-08 06:53:00 Test Item Value Reference Range Comments WHITE BLOOD CELL COUNT (BEAKER) (test cnts=699) 6.2 K/ L 4.0-10.0 RED BLOOD CELL COUNT (BEAKER) (test xhkz=694) 3.22 M/ L 4.00-5.00 HEMOGLOBIN (BEAKER) (test nnra=955) 9.5 GM/DL 12.0-15.0 HEMATOCRIT (BEAKER) (test gtgx=403) 28.1 % 36.0-45.0 MEAN CORPUSCULAR VOLUME (BEAKER) (test msjb=424) 87.5 fL 82.0-99.0 MEAN CORPUSCULAR HEMOGLOBIN (BEAKER) (test 29.5 pg 27.0-33.0 rkmz=299) MEAN CORPUSCULAR HEMOGLOBIN CONC (BEAKER) (test 33.7 GM/DL 32.0-36.0 eqgo=674) RED CELL DISTRIBUTION WIDTH (BEAKER) (test 18.3 % 10.3-14.2 amaz=245) PLATELET COUNT (BEAKER) (test njwf=422) 188 K/CU MM 150-430 MEAN PLATELET VOLUME (BEAKER) (test cbny=340) 9.2 fL 6.5-10.5 NUCLEATED RED BLOOD CELLS (BEAKER) (test 0 /100 WBC 0-0 scaj=275) 0.00BASIC METABOLIC [id number] 05:44:00 Test Item Value Reference Range Comments SODIUM (BEAKER) (test 134 meq/L 136-145 piaq=161) POTASSIUM (BEAKER) (test 4.1 meq/L 3.5-5.1 yvlt=311) CHLORIDE (BEAKER) (test 96 meq/L 98-107 esgk=407) CO2 (BEAKER) (test 23 meq/L 22-29 aoqw=989) BLOOD UREA NITROGEN 61 mg/dL 7-21 (BEAKER) (test mjae=015) CREATININE (BEAKER) (test 16.52 mg/dL 0.57-1.25 dafp=052) GLUCOSE RANDOM (BEAKER) 229 mg/dL 70-105 (test nfbb=742) CALCIUM (BEAKER) (test 8.4 mg/dL 8.4-10.2 pmjh=169) EGFR (BEAKER) (test 3 mL/min/1.73 sq m ESTIMATED GFR IS NOT vwks=9778) ACCURATE CREATININE CLEARANCE IN PREDICTING GLOMERULAR FILTRATION RATE. ESTIMATED GFR IS NOT APPLICABLE FOR DIALYSIS PATIENTS. [id number] 05:41:00 Test Item Value Reference Range Comments MAGNESIUM (BEAKER) (test fshz=185) 2.3 mg/dL 1.6-2.6 POCT-GLUCOSE [id number] 20:59:00 Test Item Value Reference Range Comments POC-GLUCOSE METER (BEAKER) 105 mg/dL 70-110 TESTED AT [address] (test pqkj=2060) [place] [address] POCT-GLUCOSE [id number] 17:58:00 Test Item Value Reference Range Comments POC-GLUCOSE METER (BEAKER) 129 mg/dL 70-110 TESTED AT [address] (test iaxy=0368) [place] [address] POCT-GLUCOSE [id number] 17:58:00 Test Item Value Reference Range Comments POC-GLUCOSE METER (BEAKER) 138 mg/dL 70-110 TESTED AT [address] (test nuwc=4731) [place] [address] ANTI-NUCLEAR ANTIBODY (MILTON)2016-06-07 14:51:00 Test Item Value Reference Range Comments ANTI-NUCLEAR ANTIBODY (MILTON) (BEAKER) (test Negative Negative xefz=648) [id number] 09:26:00 Test Item Value Reference Range Comments PHOSPHORUS (BEAKER) (test dwrh=894) 7.8 mg/dL 2.3-4.7 POCT-GLUCOSE [id number] 08:18:00 Test Item Value Reference Range Comments POC-GLUCOSE METER (BEAKER) 140 mg/dL 70-[address] [facility] [address] (test xnlb=9374) [facility] [address] CBC (HEMOGRAM ONLY)2016-06-07 07:53:00 Test Item Value Reference Range Comments WHITE BLOOD CELL COUNT (BEAKER) (test buol=948) 5.1 K/ L 4.0-10.0 RED BLOOD CELL COUNT (BEAKER) (test tzsn=156) 3.19 M/ L 4.00-5.00 HEMOGLOBIN (BEAKER) (test qjxq=444) 9.2 GM/DL 12.0-15.0 HEMATOCRIT (BEAKER) (test zeki=396) 28.0 % 36.0-45.0 MEAN CORPUSCULAR VOLUME (BEAKER) (test yaox=687) 87.6 fL 82.0-99.0 MEAN CORPUSCULAR HEMOGLOBIN (BEAKER) (test 28.9 pg 27.0-33.0 drqd=906) MEAN CORPUSCULAR HEMOGLOBIN CONC (BEAKER) (test 32.9 GM/DL 32.0-36.0 gbko=572) RED CELL DISTRIBUTION WIDTH (BEAKER) (test 18.1 % 10.3-14.2 ckmx=912) PLATELET COUNT (BEAKER) (test ludk=287) 188 K/CU MM 150-430 MEAN PLATELET VOLUME (BEAKER) (test ckxy=022) 9.2 fL 6.5-10.5 NUCLEATED RED BLOOD CELLS (BEAKER) (test 0 /100 WBC 0-0 wchn=103) 0.00BASI METABOLIC [id number] 07:30:00 Test Item Value Reference Range Comments SODIUM (BEAKER) (test 136 meq/L 136-145 aeav=192) POTASSIUM (BEAKER) (test 4.2 meq/L 3.5-5.1 qrpg=515) CHLORIDE (BEAKER) (test 98 meq/L 98-107 ywzq=834) CO2 (BEAKER) (test 23 meq/L 22-29 whpx=240) BLOOD UREA NITROGEN 59 mg/dL 7-21 (BEAKER) (test qxmj=579) CREATININE (BEAKER) (test 16.05 mg/dL 0.57-1.25 mffq=298) GLUCOSE RANDOM (BEAKER) 165 mg/dL 70-105 (test htij=124) CALCIUM (BEAKER) (test 8.0 mg/dL 8.4-10.2 qcce=229) EGFR (BEAKER) (test 3 mL/min/1.73 sq m ESTIMATED GFR IS NOT yyyc=8175) ACCURATE CREATININE CLEARANCE IN PREDICTING GLOMERULAR FILTRATION RATE. ESTIMATED GFR IS NOT APPLICABLE FOR DIALYSIS PATIENTS. [id number] 07:29:00 Test Item Value Reference Range Comments MAGNESIUM (BEAKER) (test gpbp=329) 1.7 mg/dL 1.6-2.6 VANCOMYCIN LEVEL, [id number] 07:28:00 Test Item Value Reference Range Comments VANCOMYCIN RANDOM (BEAKER) (test rcpe=519) 18.5 ug/mL Reference Range: No NormalsPOCT-GLUCOSE [id number] 21:54:00 Test Item Value Reference Range Comments POC-GLUCOSE METER ([facility]) 112 mg/dL 70-110 TESTED AT [address] (test qyjj=6365) [place] [id number] 19:10:00 Test Item Value Reference Range Comments ACTIVATED CLOTTING TIME 337 sec TESTED AT [address] ([facility]) (test bayw=342) [place] [address] [id number] 16:26:00 Test Item Value Reference Range Comments PARTIAL THROMBOPLASTIN TIME (BEAKER) (test 83.0 seconds 22.5-36.0 iwdu=031) HEPATIC FUNCTION [id number] 14:54:00 Test Item Value Reference Range Comments TOTAL PROTEIN (BEAKER) (test abbf=970) 6.6 gm/dL 6.0-8.3 ALBUMIN (BEAKER) (test bwwm=9897) 2.4 g/dL 3.5-5.0 BILIRUBIN TOTAL (BEAKER) (test ylis=069) 0.2 mg/dL 0.2-1.2 BILIRUBIN DIRECT (BEAKER) (test wzny=964) 0.1 mg/dL 0.1-0.5 ALKALINE PHOSPHATASE (BEAKER) (test fkri=484) 100 U/L 40-150 AST (SGOT) (BEAKER) (test gbat=753) 18 U/L 5-34 ALT (SGPT) (BEAKER) (test lxdg=611) 18 U/L 6-55 [id number] 13:30:00 Test Item Value Reference Range Comments FERRITIN (BEAKER) (test lqpb=916) 343 ng/mL 5-275 Effective 01/28/2014: Reference Range ChangeNew: Male 5-275 Previous: Male 22-322 Female 5-275 Female 31-643AKID-WRXWSTJ [id number] 13:01:00 Test Item Value Reference Range Comments POC-GLUCOSE METER (BEAKER) 121 mg/dL 70-[address] [facility] [address] [facility] (test veej=9795) [facility] [address] HEPATITIS C [id number] 11:01:00 Test Item Value Reference Range Comments HEPATITIS C ANTIBODY (BEAKER) (test gczq=306) Reactive Nonreactive HEPATITIS B SURFACE [id number] 10:32:00 Test Item Value Reference Range Comments HEPATITIS B SURFACE ANTIGEN (2) (BEAKER) (test Nonreactive Nonreactive cgjp=0195) HEPATITIS B SURFACE [id number] 10:32:00 Test Item Value Reference Range Comments HEPATITIS B SURFACE ANTIBODY (BEAKER) (test 71.3 mIU/mL <8.0 omkc=824) HEPATITIS A ANTIBODY, [id number] 10:32:00 Test Item Value Reference Range Comments HEPATITIS A IGM ANTIBODY (BEAKER) (test Nonreactive Nonreactive txok=811) HEPATITIS B CORE ANTIBODY, [id number] 10:32:00 Test Item Value Reference Range Comments HEPATITIS B CORE TOTAL ANTIBODY (BEAKER) (test Nonreactive Nonreactive kand=674) LACTATE DEHYDROGENASE (LDH), BODY [id number] 10:24:00 Test Item Value Reference Range Comments LACTATE DEHYDROGENASE FLUID (BEAKER) < U/L Light's criteria identifies (test pdeg=678) effusions if one or more are pre Absence of reference range indicates that normals have not been defined.Assay performance has not been validated for this type of specimen.[id number] 10:19:00 Test Item Value Reference Range Comments TRANSFERRIN (BEAKER) (test jkkw=324) 165 mg/dL 174-382 IRON, TIBC, % SAT. (WITHOUT FERRITIN)2016-06-06 10:19:00 Test Item Value Reference Range Comments IRON (BEAKER) (test etli=864) 41 ug/dL 40-160 TOTAL IRON BINDING CAPACITY (BEAKER) (test 206 ug/dL 250-450 oove=071) IRON % SATURATION (2) (BEAKER) (test azbx=3644) 20 % 20-55 PROTEIN, [id number] 09:36:00 Test Item Value Reference Range Comments TOTAL PROTEIN (BEAKER) (test mlmb=556) 6.5 gm/dL 6.0-8.3 LACTATE DEHYDROGENASE (LDH)2016-06-06 09:36:00 Test Item Value Reference Range Comments LACTATE DEHYDROGENASE (BEAKER) (test dopz=187) 248 U/L 125-220 [id number] 09:32:00 Test Item Value Reference Range Comments PARTIAL THROMBOPLASTIN TIME (BEAKER) (test 72.0 seconds 22.5-36.0 ftwf=748) Prior to initiating heparinPROTHROMBIN [id number] 09:30:00 Test Item Value Reference Range Comments PROTIME (BEAKER) (test ypkn=104) 15.2 seconds 11.7-14.7 INR (BEAKER) (test fehm=943) 1.2 <=5.9 RECOMMENDED COUMADIN/WARFARIN INR THERAPY RANGESSTANDARD DOSE: 2.0 - 3.0 Includes: PROPHYLAXIS forvenous thrombosis, systemic embolization; TREATMENT for venous thrombosis and/or pulmonary embolus.HIGH RISK: Target INR is 2.5-3.5 for patients with mechanical heart valves.Prior to initiating heparinCBC ( HEMOGRAM ONLY)2016-06-06 09:19:00 Test Item Value Reference Range Comments WHITE BLOOD CELL COUNT (BEAKER) (test xidt=149) 6.3 K/ L 4.0-10.0 RED BLOOD CELL COUNT (BEAKER) (test ufuq=280) 3.26 M/ L 4.00-5.00 HEMOGLOBIN (BEAKER) (test pfin=694) 9.3 GM/DL 12.0-15.0 HEMATOCRIT (BEAKER) (test nuiq=277) 28.7 % 36.0-45.0 MEAN CORPUSCULAR VOLUME (BEAKER) (test khhx=454) 88.2 fL 82.0-99.0 MEAN CORPUSCULAR HEMOGLOBIN (BEAKER) (test 28.4 pg 27.0-33.0 dztn=885) MEAN CORPUSCULAR HEMOGLOBIN CONC (BEAKER) (test 32.2 GM/DL 32.0-36.0 txze=443) RED CELL DISTRIBUTION WIDTH (BEAKER) (test 19.0 % 10.3-14.2 dmwx=825) PLATELET COUNT (BEAKER) (test xioe=986) 185 K/CU MM 150-430 MEAN PLATELET VOLUME (BEAKER) (test pwiq=843) 9.0 fL 6.5-10.5 NUCLEATED RED BLOOD CELLS (BEAKER) (test 0 /100 WBC 0-0 yaqg=268) PLATELET [id number] 09:15:00 Test Item Value Reference Range Comments PLATELET COUNT (BEAKER) (test yxqx=611) 185 K/CU MM 150-430 POCT-GLUCOSE [id number] 08:01:00 Test Item Value Reference Range Comments POC-GLUCOSE METER (BEAKER) 119 mg/dL 70-[address] [facility] [address] [facility] (test rdhd=9339) [facility] [address] [id number] 04:10:00 Test Item Value Reference Range Comments MAGNESIUM (BEAKER) (test cubw=529) 1.8 mg/dL 1.6-2.6 BASIC METABOLIC [id number] 04:10:00 Test Item Value Reference Range Comments SODIUM (BEAKER) (test 136 meq/L 136-145 kdxu=922) POTASSIUM (BEAKER) (test 4.0 meq/L 3.5-5.1 teqr=523) CHLORIDE (BEAKER) (test 97 meq/L 98-107 azcx=785) CO2 (BEAKER) (test 24 meq/L 22-29 btni=124) BLOOD UREA NITROGEN 64 mg/dL 7-21 (BEAKER) (test uwbg=711) CREATININE (BEAKER) (test 16.35 mg/dL 0.57-1.25 bgvi=994) GLUCOSE RANDOM (BEAKER) 124 mg/dL 70-105 (test fuqr=917) CALCIUM (BEAKER) (test 7.7 mg/dL 8.4-10.2 zyco=237) EGFR (BEAKER) (test 3 mL/min/1.73 sq m ESTIMATED GFR IS NOT bfqn=0129) ACCURATE CREATININE CLEARANCE IN PREDICTING GLOMERULAR FILTRATION RATE. ESTIMATED GFR IS NOT APPLICABLE FOR DIALYSIS PATIENTS. [id number] 04:09:00 Test Item Value Reference Range Comments PARTIAL THROMBOPLASTIN TIME (BEAKER) (test 92.0 seconds 22.5-36.0 dbuz=113) CBC (HEMOGRAM ONLY)2016-06-06 03:58:00 Test Item Value Reference Range Comments WHITE BLOOD CELL COUNT (BEAKER) (test uqfy=741) 6.1 K/ L 4.0-10.0 RED BLOOD CELL COUNT (BEAKER) (test jlgu=123) 3.19 M/ L 4.00-5.00 HEMOGLOBIN (BEAKER) (test eklo=183) 9.2 GM/DL 12.0-15.0 HEMATOCRIT (BEAKER) (test wxmf=824) 27.9 % 36.0-45.0 MEAN CORPUSCULAR VOLUME (BEAKER) (test gngf=363) 87.4 fL 82.0-99.0 MEAN CORPUSCULAR HEMOGLOBIN (BEAKER) (test 28.9 pg 27.0-33.0 svpy=653) MEAN CORPUSCULAR HEMOGLOBIN CONC (BEAKER) (test 33.0 GM/DL 32.0-36.0 pvnw=313) RED CELL DISTRIBUTION WIDTH (BEAKER) (test 18.0 % 10.3-14.2 ryml=968) PLATELET COUNT (BEAKER) (test brsv=607) 185 K/CU MM 150-430 MEAN PLATELET VOLUME (BEAKER) (test tjop=506) 9.1 fL 6.5-10.5 NUCLEATED RED BLOOD CELLS (BEAKER) (test 0 /100 WBC 0-0 yywj=998) 0.00POCT-GLUCOSE [id number] 00:10:00 Test Item Value Reference Range Comments POC-GLUCOSE METER (BEAKER) 235 mg/dL 70-[address] [facility] [address] [facility] (test cvfd=5990) [facility] [address] GRAM [id number] 23:45:00 Test Item Value Reference Range Comments GRAM STAIN RESULT (BEAKER) (test <1+ WBCs gvvn=6253) GRAM STAIN RESULT (BEAKER) (test No organisms seen dkbt=20525) BODY FLUID CELL COUNT WITH [id number] 20:12:00 Test Item Value Reference Range Comments APPEARANCE FLUID (BEAKER) (test vixv=594) Clear Clear COLOR FLUID (BEAKER) (test ssrt=260) Straw Colorless, Straw RBC FLUID (BEAKER) (test rztv=222) 200 /cu mm <=1 ADJUSTED WBC FLUID (BEAKER) (test mbcs=0301) 20 /cu mm <=5 LINING CELLS (BEAKER) (test rojj=8446) 0 /cu mm <=1 NEUTROPHILS FLUID (BEAKER) (test qozd=5302) 9 % LYMPHS FLUID (BEAKER) (test dclf=356) 39 % MONO/MACROPHAGE FLUID (BEAKER) (test gizi=946) 52 % EOSINOPHILS FLUID (BEAKER) (test ebnh=094) 0 % BASO FLUID (BEAKER) (test kiuu=426) 0 % CONTAINER BODY FLUID (BEAKER) (test qaxf=7667) EDTA Tube BODY FLUID CELL COUNT WITH [id number] 19:33:00 Test Item Value Reference Range Comments APPEARANCE FLUID (BEAKER) (test mzzx=892) Slightly Hazy Clear COLOR FLUID (BEAKER) (test ieuc=024) Straw Colorless, Straw RBC FLUID (BEAKER) (test cxwb=048) 90 /cu mm <=1 ADJUSTED WBC FLUID (BEAKER) (test zrhw=4426) 125 /cu mm <=5 LINING CELLS (BEAKER) (test scjx=3912) 5 /cu mm <=1 NEUTROPHILS FLUID (BEAKER) (test tnhc=9508) 2 % LYMPHS FLUID (BEAKER) (test cxpz=149) 30 % MONO/MACROPHAGE FLUID (BEAKER) (test 68 % ukof=083) EOSINOPHILS FLUID (BEAKER) (test hxrx=701) 0 % BASO FLUID (BEAKER) (test qsep=664) 0 % CONTAINER BODY FLUID (BEAKER) (test EDTA Tube zjon=6994) PROTEIN, BODY [id number] 19:01:00 Test Item Value Reference Range Comments PROTEIN FLUID (BEAKER) (test 2.4 g/dL Light's criteria identifies apqx=434) effusions if one or more are pre Absence of reference range indicates that normals have not been defined.Assay performance has not been validated for this type of specimen.GLUCOSE, BODY [id number] 19:01:00 Test Item Value Reference Range Comments GLUCOSE, BODY FLUID (BEAKER) (test pvxo=8065) 193 mg/dL 70-110 Absence of reference range indicates that normals have not been defined.Assay performance has not been validated for this type of specimen.PH, BODY [id number] 18:45:00 Test Item Value Reference Range Comments PH, BODY FLUID (BEAKER) (test nvic=2642) 7.73 [id number] 18:22:00 Test Item Value Reference Range Comments PARTIAL THROMBOPLASTIN TIME (BEAKER) (test 36.7 seconds 22.5-36.0 zwae=731) PROTHROMBIN [id number] 18:20:00 Test Item Value Reference Range Comments PROTIME (BEAKER) (test xiri=202) 15.3 seconds 11.7-14.7 INR (BEAKER) (test shti=999) 1.2 <=5.9 RECOMMENDED COUMADIN/WARFARIN INR THERAPY RANGESSTANDARD DOSE: 2.0 - 3.0 Includes: PROPHYLAXIS forvenous thrombosis, systemic embolization; TREATMENT for venous thrombosis and/or pulmonary embolus.HIGH RISK: Target INR is 2.5-3.5 for patients with mechanical heart valves.POCT-GLUCOSE [id number] 18:04:00 Test Item Value Reference Range Comments POC-GLUCOSE METER (BEAKER) 182 mg/dL 70-[address] [facility] [address] [facility] (test cqbb=6482) [facility] [address] CREATINE KINASE (CK), TOTAL AND [id number] 16:32:00 Test Item Value Reference Range Comments CREATINE KINASE TOTAL (BEAKER) (test pvtz=157) 247 U/L 29-200 CREATINE KINASE-MB (BEAKER) (test yria=639) 8.4 ng/mL 0.0-6.6 CREATINE KINASE-MB INDEX (BEAKER) (test ptoh=000) 3.4 % Effective 01/28/2014: CK-MB Reference Range ChangeNew: 0.0-6.6 Previous: 0.0- 4.9CK-MB Reference Range:<6.7 Normal6.7-10.0 Borderline>10.0 AbnormalTROPONIN [id number] 16:32:00 Test Item Value Reference Range Comments TROPONIN I (BEAKER) (test znjg=292) 0.06 ng/mL 0.00-0.03 Effective 01/28/2014: Reference Range [...] acute neurological disease, and persistent tachyarrhythmia.BASIC METABOLIC [id number] 16:31:00 Test Item Value Reference Range Comments SODIUM (BEAKER) (test 135 meq/L 136-145 xftc=834) POTASSIUM (BEAKER) (test 4.7 meq/L 3.5-5.1 kwyj=147) CHLORIDE (BEAKER) (test 95 meq/L 98-107 cfkg=066) CO2 (BEAKER) (test 24 meq/L 22-29 eczq=112) BLOOD UREA NITROGEN 72 mg/dL 7-21 (BEAKER) (test douj=144) CREATININE (BEAKER) (test 17.37 mg/dL 0.57-1.25 vkaj=281) GLUCOSE RANDOM (BEAKER) 179 mg/dL 70-105 (test hwgg=920) CALCIUM (BEAKER) (test 7.7 mg/dL 8.4-10.2 qgai=495) EGFR (BEAKER) (test 3 mL/min/1.73 sq m ESTIMATED GFR IS NOT qagv=2199) ACCURATE CREATININE CLEARANCE IN PREDICTING GLOMERULAR FILTRATION RATE. ESTIMATED GFR IS NOT APPLICABLE FOR DIALYSIS PATIENTS. [id number] 16:26:00 Test Item Value Reference Range Comments PHOSPHORUS (BEAKER) (test jdtr=180) 8.1 mg/dL 2.3-4.7 [id number] 16:26:00 Test Item Value Reference Range Comments MAGNESIUM (BEAKER) (test qtod=538) 1.9 mg/dL 1.6-2.6 HEPATIC FUNCTION [id number] 16:26:00 Test Item Value Reference Range Comments TOTAL PROTEIN (BEAKER) (test skmu=375) 6.6 gm/dL 6.0-8.3 ALBUMIN (BEAKER) (test lxru=2397) 2.5 g/dL 3.5-5.0 BILIRUBIN TOTAL (BEAKER) (test txyz=549) 0.2 mg/dL 0.2-1.2 BILIRUBIN DIRECT (BEAKER) (test bmlk=690) 0.1 mg/dL 0.1-0.5 ALKALINE PHOSPHATASE (BEAKER) (test yeyr=337) 105 U/L 40-150 AST (SGOT) (BEAKER) (test psny=182) 18 U/L 5-34 ALT (SGPT) (BEAKER) (test hcot=976) 21 U/L 6-55 CBC W/PLT COUNT & AUTO [id number] 16:07:00 Test Item Value Reference Range Comments WHITE BLOOD CELL COUNT (BEAKER) (test akde=190) 5.1 K/ L 4.0-10.0 RED BLOOD CELL COUNT (BEAKER) (test kvvw=696) 3.26 M/ L 4.00-5.00 HEMOGLOBIN (BEAKER) (test ejno=143) 9.3 GM/DL 12.0-15.0 HEMATOCRIT (BEAKER) (test eojd=223) 28.8 % 36.0-45.0 MEAN CORPUSCULAR VOLUME (BEAKER) (test jofy=676) 88.1 fL 82.0-99.0 MEAN CORPUSCULAR HEMOGLOBIN (BEAKER) (test 28.4 pg 27.0-33.0 vntx=148) MEAN CORPUSCULAR HEMOGLOBIN CONC (BEAKER) (test 32.2 GM/DL 32.0-36.0 colb=264) RED CELL DISTRIBUTION WIDTH (BEAKER) (test 19.1 % 10.3-14.2 zepd=457) PLATELET COUNT (BEAKER) (test ouok=929) 182 K/CU MM 150-430 MEAN PLATELET VOLUME (BEAKER) (test rcez=829) 8.6 fL 6.5-10.5 NUCLEATED RED BLOOD CELLS (BEAKER) (test 0 /100 WBC 0-0 kluw=606) NEUTROPHILS RELATIVE PERCENT (BEAKER) (test 64 % enwv=385) LYMPHOCYTES RELATIVE PERCENT (BEAKER) (test 21 % ygeq=835) MONOCYTES RELATIVE PERCENT (BEAKER) (test 11 % gbmq=906) EOSINOPHILS RELATIVE PERCENT (BEAKER) (test 3 % bazs=864) BASOPHILS RELATIVE PERCENT (BEAKER) (test 1 % yqsu=680) NEUTROPHILS ABSOLUTE COUNT (BEAKER) (test 3.26 K/ L 1.80-8.00 ekgr=193) LYMPHOCYTES ABSOLUTE COUNT (BEAKER) (test 1.09 K/ L 1.48-4.50 xtgr=600) MONOCYTES ABSOLUTE COUNT (BEAKER) (test 0.57 K/ L 0.00-1.30 xdrn=223) EOSINOPHILS ABSOLUTE COUNT (BEAKER) (test 0.16 K/ L 0.00-0.50 eygu=094) BASOPHILS ABSOLUTE COUNT (BEAKER) (test 0.03 K/ L 0.00-0.20 lwya=783) 0.00LACTIC ACID, VENOUS, WHOLE [id number] 16:06:00 Test Item Value Reference Range Comments LACTATE BLOOD VENOUS (2) (BEAKER) (test 1.5 mmol/L 0.5-2.2 zgjw=4499) Effective 07/15/2015: Units/Reference Range ChangeNew: 0.5-2.2 mmol/L Previous: 5 -20 mg/dLBLOOD GAS, [id number] 15:57:00 Test Item Value Reference Range Comments PH VENOUS (BEAKER) (test beiu=963) 7.39 7.32-7.42 PCO2 VENOUS (BEAKER) (test ykhy=315) 46 mmHg 41-51 PO2 VENOUS (BEAKER) (test hags=657) 39 mmHg 25-40 O2 SATURATION VENOUS (BEAKER) (test wday=104) 74.4 % 40.0-70.0 HCO3 VENOUS (BEAKER) (test wyff=391) 27 mmol/L 21-29 BASE EXCESS VENOUS (BEAKER) (test ltbe=919) 2.0 mmol/L -2.0-3.0 PATIENT TEMPERATURE (BEAKER) (test uool=5138) 36.5 C FIO2 (BEAKER) (test fggs=2596) 21.0 % POCT-GLUCOSE [id number] 12:45:00 Test Item Value Reference Range Comments POC-GLUCOSE METER (BEAKER) 201 mg/dL 70-[address] [facility] [address] (test movz=6453) [facility] [address] POCT-GLUCOSE [id number] 08:26:00 Test Item Value Reference Range Comments POC-GLUCOSE METER (BEAKER) 181 mg/dL 70-[address] [facility] [address] (test fjtq=8951) [facility] [address] [id number] 07:00:00 Test Item Value Reference Range Comments FERRITIN (BEAKER) (test ibun=371) 337 ng/mL 5-275 Effective 01/28/2014: Reference Range ChangeNew: Male 5-275 Previous: Male 22-322 Female 5-275 Female [id number] 06:20: 00 Test Item Value Reference Range Comments MAGNESIUM (BEAKER) (test krwl=617) 1.8 mg/dL 1.6-2.6 BASIC METABOLIC [id number] 06:20:00 Test Item Value Reference Range Comments SODIUM (BEAKER) (test 137 meq/L 136-145 goat=692) POTASSIUM (BEAKER) (test 3.8 meq/L 3.5-5.1 kxbk=402) CHLORIDE (BEAKER) (test 102 meq/L 98-107 coku=371) CO2 (BEAKER) (test 20 meq/L 22-29 sbjj=605) BLOOD UREA NITROGEN 64 mg/dL 7-21 (BEAKER) (test xxjk=100) CREATININE (BEAKER) (test 15.09 mg/dL 0.57-1.25 cmxp=200) GLUCOSE RANDOM (BEAKER) 176 mg/dL 70-105 (test xczk=413) CALCIUM (BEAKER) (test 7.1 mg/dL 8.4-10.2 xnlt=069) EGFR (BEAKER) (test 3 mL/min/1.73 sq m ESTIMATED GFR IS NOT fjmk=9742) ACCURATE CREATININE CLEARANCE IN PREDICTING GLOMERULAR FILTRATION RATE. ESTIMATED GFR IS NOT APPLICABLE FOR DIALYSIS PATIENTS. IRON, TIBC, % SAT. (WITHOUT FERRITIN)[id number] 06:19:00 Test Item Value Reference Range Comments IRON (BEAKER) (test eqfh=426) 59 ug/dL 40-160 TOTAL IRON BINDING CAPACITY (BEAKER) (test 233 ug/dL 250-450 pvzj=301) IRON % SATURATION (2) (BEAKER) (test ggsn=8760) 25 % 20-55 CBC W/PLT COUNT & AUTO [id number] 06:00:00 Test Item Value Reference Range Comments WHITE BLOOD CELL COUNT (BEAKER) (test tbmm=553) 4.0 K/ L 4.0-10.0 RED BLOOD CELL COUNT (BEAKER) (test bcnc=673) 3.68 M/ L 4.00-5.00 HEMOGLOBIN (BEAKER) (test kvyu=668) 10.7 GM/DL 12.0-15.0 HEMATOCRIT (BEAKER) (test cqmj=194) 32.4 % 36.0-45.0 MEAN CORPUSCULAR VOLUME (BEAKER) (test waqw=318) 88.0 fL 82.0-99.0 MEAN CORPUSCULAR HEMOGLOBIN (BEAKER) (test 29.1 pg 27.0-33.0 rrjq=821) MEAN CORPUSCULAR HEMOGLOBIN CONC (BEAKER) (test 33.1 GM/DL 32.0-36.0 dqmo=727) RED CELL DISTRIBUTION WIDTH (BEAKER) (test 19.0 % 10.3-14.2 xnow=452) PLATELET COUNT (BEAKER) (test jvjn=975) 194 K/CU MM 150-430 MEAN PLATELET VOLUME (BEAKER) (test beqp=801) 9.2 fL 6.5-10.5 NUCLEATED RED BLOOD CELLS (BEAKER) (test 0 /100 WBC 0-0 xasm=253) NEUTROPHILS RELATIVE PERCENT (BEAKER) (test 64 % gaxs=686) LYMPHOCYTES RELATIVE PERCENT (BEAKER) (test 23 % ncek=015) MONOCYTES RELATIVE PERCENT (BEAKER) (test 8 % povl=896) EOSINOPHILS RELATIVE PERCENT (BEAKER) (test 3 % hmvp=838) BASOPHILS RELATIVE PERCENT (BEAKER) (test 1 % lkyc=670) NEUTROPHILS ABSOLUTE COUNT (BEAKER) (test 2.59 K/ L 1.80-8.00 meqq=151) LYMPHOCYTES ABSOLUTE COUNT (BEAKER) (test 0.92 K/ L 1.48-4.50 ngfj=396) MONOCYTES ABSOLUTE COUNT (BEAKER) (test 0.34 K/ L 0.00-1.30 czwg=168) EOSINOPHILS ABSOLUTE COUNT (BEAKER) (test 0.13 K/ L 0.00-0.50 bytl=578) BASOPHILS ABSOLUTE COUNT (BEAKER) (test 0.06 K/ L 0.00-0.20 egwg=020) 0.00POCT-GLUCOSE [id number] 17:21:00 Test Item Value Reference Range Comments POC-GLUCOSE METER (BEAKER) 196 mg/dL 70-[address] [facility] [address] [facility] (test hfbz=6382) [facility] [address] POCT-GLUCOSE [id number] 12:54:00 Test Item Value Reference Range Comments POC-GLUCOSE METER (BEAKER) 190 mg/dL 70-110 TESTED AT [place] [id number] [facility] (test cosz=8008) [facility] [address] HEMOGLOBIN AND [id number] 11:25:00 Test Item Value Reference Range Comments HEMOGLOBIN (BEAKER) (test pcny=943) 9.1 GM/DL 12.0-15.0 HEMATOCRIT (BEAKER) (test pxpk=180) 27.2 % 36.0-45.0 POCT-GLUCOSE [id number] 07:54:00 Test Item Value Reference Range Comments POC-GLUCOSE METER (BEAKER) 116 mg/dL 70-110 TESTED AT [address] (test kcip=2846) [facility] [address] [id number] 05:00:00 Test Item Value Reference Range Comments PHOSPHORUS (BEAKER) (test vpeb=374) 8.0 mg/dL 2.3-4.7 BASIC METABOLIC [id number] 01:32:00 Test Item Value Reference Range Comments SODIUM (BEAKER) (test 133 meq/L 136-145 fpqk=202) POTASSIUM (BEAKER) (test 4.8 meq/L 3.5-5.1 Specimen slightly kioj=588) hemolyzed CHLORIDE (BEAKER) (test 95 meq/L 98-107 wbwz=508) CO2 (BEAKER) (test 25 meq/L 22-29 xekd=259) BLOOD UREA NITROGEN 73 mg/dL 7-21 (BEAKER) (test xtvj=460) CREATININE (BEAKER) (test 17.24 mg/dL 0.57-1.25 Specimen slightly elwg=610) hemolyzed GLUCOSE RANDOM (BEAKER) 127 mg/dL 70-105 (test bjlj=438) CALCIUM (BEAKER) (test 7.9 mg/dL 8.4-10.2 qhpd=739) EGFR (BEAKER) (test 3 mL/min/1.73 sq m ESTIMATED GFR IS NOT vamg=9299) ACCURATE CREATININE CLEARANCE IN PREDICTING GLOMERULAR FILTRATION RATE. ESTIMATED GFR IS NOT APPLICABLE FOR DIALYSIS PATIENTS. CBC W/PLT COUNT & AUTO [id number] 01:18:00 Test Item Value Reference Range Comments WHITE BLOOD CELL COUNT (BEAKER) (test ylru=071) 6.0 K/ L 4.0-10.0 RED BLOOD CELL COUNT (BEAKER) (test ihlf=649) 3.16 M/ L 4.00-5.00 HEMOGLOBIN (BEAKER) (test zqis=048) 9.0 GM/DL 12.0-15.0 HEMATOCRIT (BEAKER) (test dmbt=527) 27.5 % 36.0-45.0 MEAN CORPUSCULAR VOLUME (BEAKER) (test xlsy=992) 86.9 fL 82.0-99.0 MEAN CORPUSCULAR HEMOGLOBIN (BEAKER) (test 28.4 pg 27.0-33.0 dvqn=608) MEAN CORPUSCULAR HEMOGLOBIN CONC (BEAKER) (test 32.6 GM/DL 32.0-36.0 uavd=782) RED CELL DISTRIBUTION WIDTH (BEAKER) (test 18.9 % 10.3-14.2 dpdl=453) PLATELET COUNT (BEAKER) (test qzuk=980) 177 K/CU MM 150-430 MEAN PLATELET VOLUME (BEAKER) (test rpzb=830) 9.2 fL 6.5-10.5 NUCLEATED RED BLOOD CELLS (BEAKER) (test 0 /100 WBC 0-0 ofjn=957) NEUTROPHILS RELATIVE PERCENT (BEAKER) (test 72 % fuvb=725) LYMPHOCYTES RELATIVE PERCENT (BEAKER) (test 18 % bbjt=743) MONOCYTES RELATIVE PERCENT (BEAKER) (test 9 % llzf=722) EOSINOPHILS RELATIVE PERCENT (BEAKER) (test 0 % rnsd=118) BASOPHILS RELATIVE PERCENT (BEAKER) (test 0 % tdvl=214) NEUTROPHILS ABSOLUTE COUNT (BEAKER) (test 4.29 K/ L 1.80-8.00 jilm=481) LYMPHOCYTES ABSOLUTE COUNT (BEAKER) (test 1.10 K/ L 1.48-4.50 brxd=864) MONOCYTES ABSOLUTE COUNT (BEAKER) (test 0.54 K/ L 0.00-1.30 lrtk=769) EOSINOPHILS ABSOLUTE COUNT (BEAKER) (test 0.02 K/ L 0.00-0.50 lhlx=305) BASOPHILS ABSOLUTE COUNT (BEAKER) (test 0.03 K/ L 0.00-0.20 exlm=844) 0.00POCT-GLUCOSE [id number] 22:11:00 Test Item Value Reference Range Comments POC-GLUCOSE METER (BEAKER) 200 mg/dL 70-110 TESTED AT [address] (test dwmz=8608) [facility] [address] POCT-GLUCOSE [id number] 18:17:00 Test Item Value Reference Range Comments POC-GLUCOSE METER (BEAKER) 206 mg/dL 70-110 TESTED AT [address] (test eyjb=1243) [place] [id number] 17:39:00 Test Item Value Reference Range Comments POTASSIUM (BEAKER) (test ljyl=683) 4.7 meq/L 3.5-5.1 BASIC METABOLIC [id number] 11:55:00 Test Item Value Reference Range Comments SODIUM (BEAKER) (test 138 meq/L 136-145 uvou=677) POTASSIUM (BEAKER) (test 4.4 meq/L 3.5-5.1 rzfc=108) CHLORIDE (BEAKER) (test 96 meq/L 98-107 asqh=013) CO2 (BEAKER) (test 27 meq/L 22-29 sxjm=632) BLOOD UREA NITROGEN 68 mg/dL 7-21 (BEAKER) (test abqm=063) CREATININE (BEAKER) (test 16.75 mg/dL 0.57-1.25 imwy=825) GLUCOSE RANDOM (BEAKER) 139 mg/dL 70-105 (test azgt=425) CALCIUM (BEAKER) (test 8.5 mg/dL 8.4-10.2 ghos=522) EGFR (BEAKER) (test 3 mL/min/1.73 sq m ESTIMATED GFR IS NOT elbu=9699) ACCURATE CREATININE CLEARANCE IN PREDICTING GLOMERULAR FILTRATION RATE. ESTIMATED GFR IS NOT APPLICABLE FOR DIALYSIS PATIENTS. [id number] 11:42:00 Test Item Value Reference Range Comments PROTIME (BEAKER) (test eifu=158) 14.6 seconds 11.7-14.7 INR (BEAKER) (test xzmf=304) 1.2 <=5.9 PARTIAL THROMBOPLASTIN TIME (BEAKER) (test 33.8 seconds 22.5-36.0 rxjl=884) RECOMMENDED COUMADIN/WARFARIN INR THERAPY RANGESSTANDARD DOSE: 2.0 - 3.0 Includes: PROPHYLAXIS forvenous thrombosis, systemic embolization; TREATMENT for venous thrombosis and/or pulmonary embolus.HIGH RISK: Target INR is 2.5-3.5 for patients with mechanical heart valves.CBC W/PLT COUNT & AUTO [id number] 11:39:00 Test Item Value Reference Range Comments WHITE BLOOD CELL COUNT (BEAKER) (test lunn=467) 5.9 K/ L 4.0-10.0 RED BLOOD CELL COUNT (BEAKER) (test xojm=939) 3.66 M/ L 4.00-5.00 HEMOGLOBIN (BEAKER) (test jdzs=655) 10.3 GM/DL 12.0-15.0 HEMATOCRIT (BEAKER) (test ilxm=338) 31.9 % 36.0-45.0 MEAN CORPUSCULAR VOLUME (BEAKER) (test xfpk=306) 87.1 fL 82.0-99.0 MEAN CORPUSCULAR HEMOGLOBIN (BEAKER) (test 28.2 pg 27.0-33.0 qwad=210) MEAN CORPUSCULAR HEMOGLOBIN CONC (BEAKER) (test 32.4 GM/DL 32.0-36.0 gffx=908) RED CELL DISTRIBUTION WIDTH (BEAKER) (test 17.9 % 10.3-14.2 nfqc=147) PLATELET COUNT (BEAKER) (test ytnv=611) 192 K/CU MM 150-430 MEAN PLATELET VOLUME (BEAKER) (test vajv=451) 8.8 fL 6.5-10.5 NUCLEATED RED BLOOD CELLS (BEAKER) (test 0 /100 WBC 0-0 drfj=470) NEUTROPHILS RELATIVE PERCENT (BEAKER) (test 74 % ayjr=626) LYMPHOCYTES RELATIVE PERCENT (BEAKER) (test 16 % zabg=269) MONOCYTES RELATIVE PERCENT (BEAKER) (test 7 % agnf=981) EOSINOPHILS RELATIVE PERCENT (BEAKER) (test 2 % javk=719) BASOPHILS RELATIVE PERCENT (BEAKER) (test 1 % gavv=230) NEUTROPHILS ABSOLUTE COUNT (BEAKER) (test 4.35 K/ L 1.80-8.00 gqub=944) LYMPHOCYTES ABSOLUTE COUNT (BEAKER) (test 0.94 K/ L 1.48-4.50 obsd=483) MONOCYTES ABSOLUTE COUNT (BEAKER) (test 0.39 K/ L 0.00-1.30 ktjw=378) EOSINOPHILS ABSOLUTE COUNT (BEAKER) (test 0.15 K/ L 0.00-0.50 ejiu=420) BASOPHILS ABSOLUTE COUNT (BEAKER) (test 0.05 K/ L 0.00-0.20 jipb=457) 0.00
--- NOTE | 2018-06-16 11:07 | EDPHYS ---
Physician Documentation [facility] Name: Yamile Brooke Age: 48 yrs Sex: Female : 1970 Arrival Date: 06/16/2018 Time: 10:21 Bed 10 Private MD: Livan Schofield C ED Physician Cesar Landrum HPI: 06/16 11:04 This 48 yrs old Black Female presents to ER via Ambulatory with complaints of Port kb problem. 11:04 Pt reports she was at dialysis just [place] and the clamp on her dialysis catheter broke so kb they sent her here to get a new one. Pt has no complaints at this time. Onset: The symptoms/episode began/occurred just prior to arrival. The patient has not experienced similar symptoms in the past. The patient has not recently seen a physician. Historical: - Allergies: 10:32 tramadol; la1 - PMHx: 10:32 ADD/ADHD; Anemia; CHF; Diabetes - NIDDM; Dialysis; Tues, Thurs, Sat; ESRD; la1 Hyperlipidemia; Hypertension; right arm blood clots; right eye blindness; - Immunization history:: Adult Immunizations up to date. - Social history:: Smoking status: Patient/guardian denies using tobacco. - Ebola Screening: : No symptoms or risks identified at this time. ROS: 11:03 Constitutional: Negative for fever, chills, and weight loss, Cardiovascular: Negative kb for chest pain, palpitations, and edema, Respiratory: Negative for shortness of breath, cough, wheezing, and pleuritic chest pain, Abdomen/GI: Negative for abdominal pain, nausea, vomiting, diarrhea, and constipation, MS/Extremity: Negative for injury and deformity, Skin: Negative for injury, rash, and discoloration, Neuro: Negative for headache, weakness, numbness, tingling, and seizure. Exam: 11:03 Constitutional: This is a well developed, well nourished patient who is awake, alert, kb and in no acute distress. Head/Face: Normocephalic, atraumatic. Chest/axilla: Normal chest wall appearance and motion. Nontender with no deformity. No lesions are appreciated. Cardiovascular: Regular rate and rhythm with a normal S1 and S2. No gallops, murmurs, or rubs. Normal PMI, no JVD. No pulse deficits. Respiratory: Lungs have equal breath sounds bilaterally, clear to auscultation and percussion. No rales, rhonchi or wheezes noted. No increased work of breathing, no retractions or nasal flaring. Abdomen/GI: Soft, non-tender, with normal bowel sounds. No distension or tympany. No guarding or rebound. No evidence of tenderness throughout. Skin: Warm, dry with normal turgor. Normal color with no rashes, no lesions, and no evidence of cellulitis. MS/ Extremity: Pulses equal, no cyanosis. Neurovascular intact. Full, normal range of motion. Neuro: Awake and alert, GCS 15, oriented to person, place, time, and situation. Cranial nerves II-XII grossly intact. Motor strength 5/5 in all extremities. Sensory grossly intact. Cerebellar exam normal. Normal gait. 11:03 Chest/axilla: dialysis catheter noted to right upper chest. Vital Signs: 10:33 BP 152 / 91; Pulse 96; Resp 18; Temp 97.5; Pulse Ox 96% on R/A; Weight 71.4 kg; Height la1 5 ft. 8 in. (172.72 cm); Pain 0/10; 10:33 Body Mass Index 23.93 (71.40 kg, 172.72 cm) la1 MDM: 10:50 Patient medically screened. kb 11:03 Data reviewed: vital signs, nurses notes. Data interpreted: Pulse oximetry: on room air kb is 96 %. Interpretation: normal. Counseling: I had a detailed discussion with the patient and/or guardian regarding: the historical points, exam findings, and any diagnostic results supporting the discharge/admit diagnosis, the need for outpatient follow up, a family practitioner, to return to the emergency department if symptoms worsen or persist or if there are any questions or concerns that arise at home. 11:05 ED course: new clamp applied to dialysis catheter that provides full occlusion. . kb Administered Medications: No medications were administered Disposition: 06/16/18 11:06 Discharged to Home. Impression: Encounter for adjustment and management of other implanted devices - dialysis catheter. - Condition is Stable. - Discharge Instructions: Vascular Access for Hemodialysis. - Medication Reconciliation Form, Thank You Letter, Antibiotic Education, Prescription Opioid Use form. - Follow up: Emergency Department; When: As needed; Reason: Worsening of condition. Follow up: Private Physician; When: 2 - 3 days; Reason: Recheck today's complaints, Continuance of care, Re-evaluation by your physician. Addendum: 06/18/2018 07:35 Co-signature as Attending Physician, Cesar Landrum MD I agree with the assessment and c campa plan of care. Signatures: Maryana Machuca, MANUEL-C STAFF ENGINEER-Cesar Tellez MD MD cha Attema, Lee RN RN la1 Sadie Hawkins RN RN hb Corrections: (The following items were deleted from the chart) 06/16 11:19 11:06 06/16/2018 11:06 Discharged to Home. Impression: Encounter for adjustment and hb management of other implanted devices - dialysis catheter. Condition is Stable. Forms are Medication Reconciliation Form, Thank You Letter, Antibiotic Education, Prescription Opioid Use. Follow up: Emergency Department; When: As needed; Reason: Worsening of condition. Follow up: Private Physician; When: 2 - 3 days; Reason: Recheck today's complaints, Continuance of care, Re-evaluation by your physician. kb
--- NOTE | 2018-06-16 11:07 | ER ---
Nurse's Notes [facility] Name: Yamile Brooke Age: 48 yrs Sex: Female : 1970 Arrival Date: 06/16/2018 Time: 10:21 Bed 10 Private MD: Livan Schofield C Diagnosis: Encounter for adjustment and management of other implanted devices-dialysis catheter Presentation: 06/16 10:31 Presenting complaint: Patient states: I was at dialysis and when they were la1 disconnecting me the the cap was broken and they tried to put a cap on but they didn't have any that fit so they clamped it and told me to come here. Transition of care: patient was not received from another setting of care. Onset of symptoms was June 16, 2018. Risk Assessment: Do you want to hurt yourself or someone else? Patient reports no desire to harm self or others. Initial Sepsis Screen: Does the patient meet any 2 criteria? No. Patient's initial sepsis screen is negative. Does the patient have a suspected source of infection? No. Patient's initial sepsis screen is negative. Care prior to arrival: None. 10:31 Method Of Arrival: Ambulatory la1 10:31 Acuity: ARIE 5 la1 Historical: - Allergies: 10:32 tramadol; la1 - PMHx: 10:32 ADD/ADHD; Anemia; CHF; Diabetes - NIDDM; Dialysis; Tues, Thurs, Sat; ESRD; la1 Hyperlipidemia; Hypertension; right arm blood clots; right eye blindness; - Immunization history:: Adult Immunizations up to date. - Social history:: Smoking status: Patient/guardian denies using tobacco. - Ebola Screening: : No symptoms or risks identified at this time. Screenin:13 Abuse screen: Denies threats or abuse. Nutritional screening: No deficits noted. la1 Tuberculosis screening: No symptoms or risk factors identified. Fall Risk None identified. Assessment: 11:11 Reassessment: Pt presents with broken clamp on red dialysis port, with hemostat applied la1 per dialysis nurse. Clamp taken from straight cath kit and applied to red port dialysis. Clamp holding well without drainage, allyson from [facility] dialysis called and notified, pt instructed to return if it begins leaking. General: Appears in no apparent distress. Behavior is calm, cooperative. Pain: Denies pain. Vital Signs: 10:33 BP 152 / 91; Pulse 96; Resp 18; Temp 97.5; Pulse Ox 96% on R/A; Weight 71.4 kg; Height la1 5 ft. 8 in. (172.72 cm); Pain 0/10; 10:33 Body Mass Index 23.93 (71.40 kg, 172.72 cm) la1 ED Course: 10:21 Patient arrived in ED. as 10:22 Livan Schofield MD is Private Physician. as 10:31 Triage completed. la1 10:32 Arm band placed on left wrist. la1 10:49 Maryana Machuca FNP-C is PHCP. kb 10:49 Cesar Landrum MD is Attending Physician. kb 11:10 Erik Worthy, RN is Primary Nurse. la1 11:13 Call light in reach. la1 11:13 No provider procedures requiring assistance completed. Patient did not have IV access la1 during this emergency room visit. Administered Medications: No medications were administered Outcome: 11:06 Discharge ordered by MD. kb 11:13 Discharged to home ambulatory. la1 11:13 Condition: stable 11:13 Discharge instructions given to patient, Instructed on discharge instructions, follow up and referral plans. medication usage, Demonstrated understanding of instructions, follow-up care. 11:19 Patient left the ED. hb Signatures: Maryana Machuca FNP-C FNP-Mya Lewis as Erik Worthy, RN RN la1 Sadie Hawkins RN RN hb
[2018-06-16 11:23] VITALS: BP 152/91; TEMP 97.5; O2SAT 96
== END 2018-06-16 11:19 | disposition home or self-care (01) ==
LOC: ER 10:19
DX: Z45.2 Encounter for adjustment and management of vascular access device (principal); E11.22 Type 2 diabetes mellitus with diabetic chronic kidney disease; I12.0 Hypertensive chronic kidney disease with stage 5 chronic kidney disease or end stage renal disease; N18.6 End stage renal disease; Z88.5 Allergy status to narcotic agent; Z99.2 Dependence on renal dialysis
CPT/HCPCS: 99281

== ENCOUNTER 2018-11-21 11:01 | Emergency (ER) | payer OTHER ==
--- OUTSIDE RECORDS SUMMARY | 2018-11-21 11:06 | XMS REPORT | Clinical Summary ---
:1970 Author Organization [facility] Address [address] [place] [address] Care Team Providers Name Role Phone Vasile [...] OM3 disease); s/p mid LCx PCI (06/06) Social History Tobacco Use Types Packs/Day Years [...] Not on file Implants Implanted Type Area Through Freight Engineer Device Shelf Model / Identifier Expiration Serial / Date Lot Closure Sys Perclose Progl 6fr 71745-58 - [id number] Cardiovascular N/A: Groin BOWENS 12/10/2017 16454-97 / Implanted: Qty: 1 on 06/06/2016 by Robinson Vigil MD LAB:[facility] DEV / [id number] Promus Premier Stents-Coronary N/A: [place] 08/16/2017 [id number] / Implanted: Qty: 1 on 06/06/2016 by Robinson Vigil MD Coronary [employer] / [id number] Synergy Stent 2.5mm X 16mm [place] 08/16/2017 [id number] / Implanted: Qty: 1 on 06/03/2016 by Robinson Vigil MD [employer] / [id number] Perclose Proglide Closure Device BOWENS 12/10/2017 [id number] / Implanted: Qty: 1 on 06/03/2016 by Robinson Vigil MD VASCULAR / DEVICE [id number] Results Not on fileafter 11/20/2017 Insurance Payer Benefit Plan / Group Subscriber ID Type Phone Address MEDICARE MEDICARE A B xxxxxxxxxx Medicare [place] xxxxxxxxx Medicaid [facility] x[facility] Transplants GAYLA - CORY CARE ONLY Advance Directives For more information, please contact:[facility] [place], [place] [phone] Code Status Date Activated Date Inactivated Comments [...]
--- OUTSIDE RECORDS SUMMARY | 2018-11-21 11:06 | XMS REPORT | Continuity of Care Document ---
:1970 Author Organization [facility] Care Team Providers Name Role Phone [employer] Information [employer] Unavailable Unavailable Problems Problem Status Onset Classification Date Comments Source Date Reported NOSE BLEED Active [facility] 6 [place] UNK Active [facility] 6 Discharge 06/20/2015 [facility] Diagnosis: 6 N&V VOMITING/CHIL Active [facility] LS 6 Discharge 09/01/2014 [facility] Diagnosis: 5 Acute headache VOMITING Active [facility] 5 Diabetes Resolved Problem 05/21/2016 [facility] [place] ESRD Active Problem 05/21/2016 (Confirmed) [place],[facility], [facility] [place] H/O: migraine Resolved Problem 05/21/2016 [facility], [facility] [place],[facility] Heartburn Resolved Problem 05/21/2016 [facility] High blood Resolved Problem 05/21/2016 pressure [place],[facility] SOB Resolved Problem 05/21/2016 (Confirmed) [place],[facility], [facility] [place] Medications Medication Details Route Status Patient Ordering [...] 0.2 mg, 2 mL, Inactive Route: IVP2015 [facility] Drug form: INJ, PRN, Dosing Weight 94.119, kg, PRN Benzodiazepine Reversal, Initial dose, Start date: 07/01/15 15:39:00 CDT, Duration: 30 day, Stop date: 07/31/15 15:38:00 CDTNotes: (Same as: Romazicon) Glycopyrrolate 0.2 mg, 1 mL, Inactive Route: IVP2015 [facility] Drug form: INJ, Q5Min, Dosing Weight 94.119, kg, PRN Bradycardia, Start date: 07/01/15 15:39:00 CDT, Duration: 3 doses or times, Stop date: Limited # of timesNotes: (Same as: Faith) Diphenhydramine 12.5 mg, 0.25 Inactive mL, Route: 2015 [facility] IVP, Drug form: INJ, Q6H, Dosing Weight 94.119, kg, PRN Itching, Start date: 07/01/15 15:39:00 CDT, Duration: 30 day, Stop date: 07/31/15 15:38:00 CDTNotes: (Same as: Benadryl) Dexamethasone 4 mg, 1 mL, Inactive Route: IVP2015 [facility] Drug form: INJ, ONCE, Dosing Weight 94.119, kg, PRN Nausea & Vomiting, Start date: 07/01/15 15:39:00 CDTNotes: Concentration: 4mg/ml Ondansetron 4 mg, Route: Inactive IVP, ONCE, 2015 [facility] Dosing Weight 94.119, kg, PRN Nausea & Vomiting, Start date: 07/01/15 15:39:00 CDT Naloxone 0.04 mg, 0.1 Inactive mL, Route: 2015 [facility] IVP, Drug form: INJ, Q2MIN, Dosing Weight 94.119, kg, PRN Narcotic Reversal, Start date: 07/01/15 15:39:00 CDT, Duration: 8 doses or times, Stop date: Limited # of timesNotes: Same as Narcan Metoprolol 1 mg, 1 mL, Inactive Route: IVP2015 [facility] Drug form: INJ, Q5Min, Dosing Weight 94.119, kg, PRN Other -See Comment, Start date: 07/01/15 15:39:00 CDT, Duration: 5 doses or times, Stop date: Limited # of timesNotes: (Same as: Lopressor) Push over 2 minutes Hydralazine 10 mg, 0.5 mL, Inactive Route: IVP2015 [facility] Drug form: INJ, Q20Min, Dosing Weight 94.119, kg, PRN Elevated BP, Start date: 07/01/15 15:39:00 CDT, Duration: 2 doses or times, Stop date: Limited # of timesNotes: (Same as: Apresoline) Push over 5 minutes Meperidine 12.5 mg, 0.25 Inactive mL, Route: 2015 [facility] IVP, Drug form: INJ, Q30Min, Dosing Weight 94.119, kg, PRN Other -See Comment, For shivering, Start date: 07/01/15 15:39:00 CDT, Duration: 2 doses or times, Stop date: Limited # of timesNotes: (Same as: Demerol) "Use Precaution in Elderly, Seizure disorders, and Renal impairment" Morphine 4 mg, 2 mL, Inactive Route: IVP2015 [facility] Drug form: INJ, Q5Min, Dosing Weight 94.119, kg, PRN Pain Score 7-10, Start date: 07/01/15 15:39:00 CDT, Duration: 3 doses or times, Stop date: Limited # of timesNotes: (Same as:MORPhine Sulfate) Hydromorphone 0.5 mg, 0.5 Inactive mL, Route: 2015 [facility] IVP, Drug form: INJ, Q5Min, Dosing Weight 94.119, kg, PRN Pain Score 7-10, Start date: 07/01/15 15:39:00 CDT, Duration: 4 doses or times, Stop date: Limited # of times Fentanyl 50 microgram, Inactive 1 mL, Route: 2015 [facility] IVP, Drug form: INJ, Q5Min, Dosing Weight 94.119, kg, PRN Pain Score 7-10, Start date: 07/01/15 15:39:00 CDT, Duration: 2 doses or times, Stop date: Limited # of timesNotes: (Same as: Sublimaze) Preservative free. Oxycodone 10 mg, 2 tab, Inactive Route: PO, 2015 [facility] Drug form: TAB, Q4H, Dosing Weight 94.119, kg, PRN Pain Score 7-10, Start date: 07/01/15 15:39:00 CDT, Duration: 30 day, Stop date: 07/31/15 15:38:00 CDTNotes: (Same as: Roxicodone) Ketorolac 30 mg, 1 mL, Inactive Route: IVP, 2015 [facility] Drug form: INJ, ONCE, Dosing Weight [...] 4 mg, Route: Inactive IVP, ONCE, 2015 [facility] Dosing Weight 94.119, kg, Start date: 07/01/15 12:20:00 CDT, Stop date: 07/01/15 12:20:00 CDT Sodium Chloride 500 mL, Rate: Inactive 0.154 MEQ/ML 25 ml/hr, 2015 [facility] Injectable Infuse over: Solution 20 hr, Route: IV, Dosing Weight 94.119 kg, Total Volume: 500, Start date: 07/01/15 10:21:00 CDT, Duration: 1 day, Stop date: 07/02/15 10:20:00 CDT Calcium Chloride 1,000 mL, Inactive 0.0014 MEQ/ML / Rate: 25 2015 [facility] Potassium Chloride ml/hr, Infuse 0.004 MEQ/ML / over: 40 hr, Sodium Chloride Route: IV, 0.103 MEQ/ML / Dosing Weight Sodium Lactate 94.119 kg, 0.028 MEQ/ML Total Volume: Injectable 1,000, Start Solution date: 07/01/15 10:21:00 CDT, Duration: 30 day, Stop date: 07/31/15 10:20:00 CDT Ancef 2 gm, 100 mL, No Longer Route: IVPB, Active 2015 [facility] Drug form: INJ, PRE OP, Dosing Weight 86.364, kg, Start date: 07/01/15 7:00:00 CDT, Duration: 1 day, Stop date: 07/02/15 6:59:00 CDTNotes: Same as: Ancef Vancomycin 1 gm, Route: No Longer IVPB, PRE OP, Active 2015 [facility] Dosing Weight 86.364, kg, Start date: 07/01/15 7:00:00 CDT, Duration: 1 day, Stop date: 07/02/15 6:59:00 CDTNotes: TIME CRITICAL MEDICATION (Same As: Vancocin) Infusion rate 2001 mg: infuse over 2.5 hours MEDICATION WASTE Product Size: 1000 mg Product Wasted: ___ mg Aspirin 81 MG 81 mg=1 tab, Active Enteric Coated PO, Daily, # 2016 [facility] Tablet 90 tab, 3 Refill(s) NovoLOG 70/30 SUB-Q, ONCE, 0 Active Refill(s) 2015 [facility] Hydralazine 0 Refill(s) Active 2015 [facility] metoprolol BID, 0 Active tartrate Refill(s) 2015 [facility] Ondansetron 8 MG 8 mg=1 tab, Active Oral Tablet PO, BID, 0 2015 [facility] [Zofran] Refill(s) Furosemide 40 MG 40 mg=1 tab, Active Oral Tablet PO, Daily, 0 2015 [facility] Refill(s) Ondansetron 8 MG 8 mg=1 tab, Active Disintegrating PO, TID, PRN 2015 [facility] Tablet [Zofran] Nausea and Vomiting, Dissolve tab under tongue, X 4 day, # 20 tab, 0 Refill(s) Sodium Chloride 1,000 mL, Inactive 0.154 MEQ/ML 1,000 ml/hr, 2016 [facility] Injectable Infuse Over: 1 Solution hr, Route: IV, 1,000, Drug form: INJ, ONCE, Priority: STAT, Dosing Weight 86.364 kg, Start date: 06/17/15 11:40:00, Duration: 1 doses or times, Stop date: 06/17/15 11:40:00 Ondansetron 4 mg, 2 mL, Inactive Route: IVP2015 [facility] Drug form: INJ, ONCE, Dosing Weight 86.364, kg, Priority: STAT, Start date: 06/17/15 11:40:00, Stop date: 06/17/15 11:40:00Notes: (Same as: Veronica) MEDICATION WASTE Product Size: 4 mg Product Wasted: ___ mg Morphine 4 mg, 1 mL, Inactive Route: IVP2015 [facility] Drug form: INJ, ONCE, Dosing Weight 86.364, kg, Priority: STAT, Start date: 06/17/15 11:40:00, Stop date: 06/17/15 11:40:00Notes: (Same as:MORPhine Sulfate) Acetaminophen 300 1 cap, PO, Inactive MG / butalbital 50 Q4H, PRN Pain, 2014 [facility] MG / Caffeine 40 Do not exceed MG Oral Capsule 6 capsules in [Fioricet] 24 hours, # 60 cap, 0 Refill(s)Speci al Instructions: Do not exceed 6 capsules in 24 hours methylPREDNISolone 125 mg, 2 mL, Inactive SODium SUCCinate Route: IVP2014 [facility] Drug form: INJ, ONCE, Dosing Weight 86.364, kg, Priority: STAT, Start date: 08/29/14 15:39:00, Stop date: 08/29/14 15:39:00Notes: (Same as:Solu-MEDROL , A-Methapred) Benadryl 50 mg, 1 mL, Inactive Route: IVP2014 [facility] Drug form: INJ, ONCE, Dosing Weight 86.364, kg, Priority: STAT, Start date: 08/29/14 15:38:00, Stop date: 08/29/14 15:38:00Notes: (Same as: Benadryl) Sodium Chloride 1,000 mL, Inactive 0.154 MEQ/ML 1,000 ml/hr, 2014 [facility] Injectable Infuse Over: 1 Solution hr, Route: IV, 1,000, Drug form: INJ, ONCE, Priority: STAT, Dosing Weight 86.364 kg, Start date: 08/29/14 15:38:00, Duration: 1 doses or times, Stop date: 08/29/14 15:38:00 Reglan 10 mg, 2 mL, Inactive Route: IVP, 2014 [facility] Drug form: INJ, ONCE, Dosing Weight 86.364, kg, Priority: STAT, Start date: 08/29/14 15:38:00, Stop date: 08/29/14 15:38:00Notes: (Same as: Reglan) Allergies, Adverse Reactions, Alerts No Known Medication Allergies Immunizations No Data Provided for This Section Results Order Name Results Value Reference Date Interpretation Comments Source Range ELECTROLYTE Chloride Lvl 111 95 - 109 06/30 MH S [facility] ELECTROLYTE CO2 19 24 - 32 06/30 S [facility] ELECTROLYTE Calcium Lvl 8.5 8.5 - 10.5 06/30 S [facility] ELECTROLYTE Glucose Lvl 126 70 - 99 06/30 S [facility] ELECTROLYTE Sodium Lvl 140 135 - 145 06/30 S [facility] ELECTROLYTE Potassium 4.6 3.5 - 5.1 06/30 MH S Lvl [facility] ELECTROLYTE BUN 50 7 - 22 06/30 S [facility] ELECTROLYTE Creatinine 8.31 0.50 - 06/30 MH S Lvl 1.40 /2015 [facility] ELECTROLYTE eGFR 6 06/30 MH S Comment: The [facility] eGFR is calculated using the CKD-EPI formula. In most young, healthy individuals the eGFR will be >90 mL/min/1.73m2 . The eGFR declines with age. An eGFR of 60-89 may be normal in some populations, particularly the elderly, for whom the CKD-EPI formula has not been extensively validated. Use of the eGFR is not recommended in the following populations:< br/>
Amanda viduals with unstable creatinine concentration s, including patients and those with serious co-morbid conditions.<b r/>
Patie nts with extremes in muscle mass or diet.

The data above are obtained from the National Kidney Disease Education Program (NKDEP) which additionally recommends that when the eGFR is used in patients with extremes of body mass index for purposes of drug dosing, the eGFR should be multiplied by the estimated BMI. ELECTROLYTE AGAP 14.6 10.0 - 06/30 MH S 20.0 /2016 [facility] HEMATOLOGY Lymphocytes 1.2 1.0 - 5.5 04/ MH # /2016 [facility] HEMATOLOGY Basophils 1.0 0.0 - 1.0 04/ MH /2015 [facility] HEMATOLOGY Segs-Bands # 4.4 1.5 - 8.1 04/ MH /2015 [facility] HEMATOLOGY Monocytes # 0.5 0.0 - 0.8 04 MH /2015 [facility] HEMATOLOGY Basophils # 0.1 0.0 - 0.2 04 /2015 [facility] HEMATOLOGY Eosinophils 0.1 0.0 - 0.5 04/ MH # /2016 [facility] HEMATOLOGY Monocytes 8.0 2.0 - 12.0 04 /2015 [facility] HEMATOLOGY Lymphocytes 19.2 20.0 - 04 MH 40.0 /2015 [facility] HEMATOLOGY Segs 69.5 45.0 - 04 MH 75.0 /2015 [facility] HEMATOLOGY Eosinophils 2.3 0.0 - 4.0 06/30 MH /2015 [facility] HEMATOLOGY PTT 35.1 22.9 - 06/30 MH 35.8 /2015 [facility] HEMATOLOGY INR 1.09 0.85 - 06/30 MH 1.17 /2015 [facility] HEMATOLOGY PT 14.4 12.0 - 06/30 MH 14.7 /2015 [facility] HEMATOLOGY Hgb 9.3 12.0 - 06/30 MH 16.0 /2015 [facility] HEMATOLOGY RBC 3.21 4.20 - 06/30 MH 5.40 /2015 [facility] HEMATOLOGY WBC 6.3 3.7 - 10.4 04 /2015 [facility] HEMATOLOGY MCV 88.4 80.0 - 06/30 98.0 /2015 [facility] HEMATOLOGY Hct 28.4 36.0 - 06/30 48.0 /2015 [facility] HEMATOLOGY Platelet 190 133 - 450 04 /2015 [facility] HEMATOLOGY RDW 14.9 11.5 - 06/30 MH 14.5 /2015 [facility] HEMATOLOGY MCHC 32.7 32.0 - 04 MH 36.0 /2015 [facility] HEMATOLOGY MCH 28.9 27.0 - 06/30 31.0 /2015 [facility] HEMATOLOGY MPV 8.9 7.4 - 10.4 04 /2015 [facility] CARDIAC Troponin-I 0.10 0.00 - 04 ENZYMES 0.40 /2015 [facility] CHEM PANEL Lipase Lvl 314 73 - 393 04 [facility] CHEM PANEL B/C Ratio 7 6 - 25 04 [facility] CHEM PANEL Globulin 5.4 2.0 - 4.0 06/16 [facility] CHEM PANEL A/G Ratio 0.3 0.7 - 1.6 06/16 [facility] CHEM PANEL AGAP 12.1 10.0 - 04/ MH 20.0 /2015 [facility] CHEM PANEL eGFR 7 06/16 [facility] Comment: The [facility] eGFR is calculated using the CKD-EPI formula. In most young, healthy individuals the eGFR will be >90 mL/min/1.73m2 . The eGFR declines with age. An eGFR of 60-89 may be normal in some populations, particularly the elderly, for whom the CKD-EPI formula has not been extensively validated. Use of the eGFR is not recommended in the following populations:< br/>
Amanda viduals with unstable creatinine concentration s, including patients and those with serious co-morbid conditions.<b r/>
Patie nts with extremes in muscle mass or diet.

The data above are obtained from the National Kidney Disease Education Program (NKDEP) which additionally recommends that when the eGFR is used in patients with extremes of body mass index for purposes of drug dosing, the eGFR should be multiplied by the estimated BMI. CHEM PANEL AST 45 0 - 37 06/16 [facility] CHEM PANEL Albumin Lvl 1.8 3.5 - 5.0 06/16 [facility] CHEM PANEL ALT 37 0 - 65 06/16 [facility] CHEM PANEL Bili Total 0.3 0.2 - 1.3 06/16 [facility] CHEM PANEL Alk Phos 84 39 - 136 06/16 [facility] CHEM PANEL Total 7.2 6.4 - 8.4 06/16 Protein [facility] CHEM PANEL Calcium Lvl 8.4 8.5 - 10.5 06/16 [facility] CHEM PANEL Glucose Lvl 106 70 - 99 06/16 [facility] CHEM PANEL Potassium 5.1 3.5 - 5.1 04 Lvl /2015 [facility] CHEM PANEL Chloride Lvl 109 95 - 109 06/16 [facility] CHEM PANEL CO2 21 24 - 32 06/16 [facility] CHEM PANEL Sodium Lvl 137 135 - 145 06/16 [facility] CHEM PANEL Creatinine 7.50 0.50 - 04 Lvl 1.40 /2015 [facility] CHEM PANEL BUN 52 7 - 22 04/ /2016 [facility] HEMATOLOGY Monocytes # 0.4 0.0 - 0.8 04/ /2015 [facility] HEMATOLOGY Basophils # 0.0 0.0 - 0.2 04/ /2015 [facility] HEMATOLOGY Eosinophils 0.1 0.0 - 0.5 04/06 MH # /2016 [facility] HEMATOLOGY Lymphocytes 27.3 20.0 - 04/ MH 40.0 /2016 [facility] HEMATOLOGY Segs 65.3 45.0 - 04/ MH 75.0 /2015 [facility] HEMATOLOGY Segs-Bands # 4.4 1.5 - 8.1 04/ /2015 [facility] HEMATOLOGY Basophils 0.5 0.0 - 1.0 04/ /2015 [facility] HEMATOLOGY Eosinophils 1.3 0.0 - 4.0 / /2015 [facility] HEMATOLOGY Monocytes 5.6 2.0 - 12.0 / /2015 [facility] HEMATOLOGY Lymphocytes 1.9 1.0 - 5.5 04/ MH # /2016 [facility] HEMATOLOGY Hct 28.8 36.0 - 04/ 48.0 /2015 [facility] HEMATOLOGY Hgb 9.3 12.0 - 04 MH 16.0 /2015 [facility] HEMATOLOGY RBC 3.24 4.20 - 04/ MH 5.40 /2015 [facility] HEMATOLOGY MCH 28.8 27.0 - 04 31.0 /2015 [facility] HEMATOLOGY MCV 88.8 80.0 - / 98.0 /2015 [facility] HEMATOLOGY Platelet 235 133 - 450 / /2015 [facility] HEMATOLOGY RDW 15.2 11.5 - 06/16 14.5 /2015 [facility] HEMATOLOGY MCHC 32.4 32.0 - 04/ 36.0 /2016 [facility] HEMATOLOGY MPV 9.3 7.4 - 10.4 06/16 /2015 [facility] HEMATOLOGY WBC 6.8 3.7 - 10.4 06/16 /2015 [facility] URINE AND UA Color Yellow Yellow 06/16 STOOL *NA* /2015 [facility] (06/17/15 12:02 PM) URINE AND UA Turbidity Clear Clear 06/16 [facility] (06/17/15 12:02 PM) /2015 [facility] URINE AND UA Leuk Est Negative Negative 06/16 [facility] (06/17/15 12:02 PM) [facility] URINE AND UA 0.2 0.1 - 1.0 06/16 STOOL Urobilinogen /2015 [facility] URINE AND UA Blood Moderate Negative 06/16 STOOL *ABN* /2015 [facility] (06/17/15 12:02 PM) URINE AND UA Nitrite Negative Negative 06/16 [facility] (06/17/15 12:02 PM) [facility] URINE AND UA Bili Negative Negative 06/16 STOOL *NA* /2015 [facility] (06/17/15 12:02 PM) URINE AND UA Glucose 250 mg/dL Negative 06/16 STOOL mg/dL [facility] URINE AND UA Protein >=300 Negative 06/16 STOOL mg/dL mg/dL [facility] URINE AND UA Ketones Negative Negative 06/16 STOOL *NA* [facility] (06/17/15 12:02 PM) URINE AND UA pH 6.5 5.0 - 8.0 06/16 STOOL [facility] URINE AND UA Spec Grav 1.020 <=1.030 06/16 STOOL [facility] URINE AND UA Mucus Few /LPF None Seen 06/16 STOOL /LPF [facility] URINE AND UA Sq Epi Few /LPF Few /LPF 06/16 STOOL [facility] URINE AND UA RBC 11-20 0 - 2 06/16 STOOL /HPF [facility] URINE AND UA WBC 6-10 /HPF None Seen 06/16 STOOL /HPF [facility] URINE AND UA Bacteria Few /HPF None Seen 06/16 STOOL /HPF [facility] URINE CHEM U Preg Negative Negative 06/16 (06/17/15 12:02 PM) [facility] CHEM PANEL A/G Ratio 0.4 0.7 - 1.6 08/29 [facility] CHEM PANEL B/C Ratio 18 6 - 25 08/29 [facility] CHEM PANEL Globulin 5.0 2.0 - 4.0 08/29 [facility] CHEM PANEL AGAP 11.8 10.0 - 08/29 20.0 [facility] CHEM PANEL eGFR 49 08/29 <sup>1</sup>R esult [facility] Comment: The eGFR is calculated using the CKD-EPI formula. In most young, healthy individuals the eGFR will be >90 mL/min/1.73m2 . The eGFR declines with age. An eGFR of 60-89 may be normal in some populations, particularly the elderly, for whom the CKD-EPI formula has not been extensively validated. Use of the eGFR is not recommended in the following populations:& lt;br/>
I ndividuals with unstable creatinine concentration s, including patients and those with serious co-morbid conditions.<b r/>
Patie nts with extremes in muscle mass or diet.

The data above are obtained from the National Kidney Disease Education Program (NKDEP) which additionally recommends that when the eGFR is used in patients with extremes of body mass index for purposes of drug dosing, the eGFR should be multiplied by the estimated BMI. CHEM PANEL Glucose Lvl 242 70 - 99 08/29 <sup>2</sup>I nterpretive [facility] Data: Adult reference range values reflect the clinical guidelines
of the [place] [employer]. CHEM PANEL BUN 27 7 - 22 08/29 [facility] CHEM PANEL Creatinine 1.5 0.5 - 1.4 08/29 Lvl /2014 [facility] CHEM PANEL CO2 22 24 - 32 08/29 [facility] CHEM PANEL Calcium Lvl 8.7 8.5 - 10.5 08/29 [facility] CHEM PANEL Potassium 3.8 3.5 - 5.1 08/29 Lvl /2014 [facility] CHEM PANEL Chloride Lvl 110 95 - 109 08/29 [facility] CHEM PANEL Sodium Lvl 140 135 - 145 08/29 [facility] CHEM PANEL AST 29 0 - 37 08/29 [facility] CHEM PANEL Alk Phos 61 39 - 136 08/29 [facility] CHEM PANEL Albumin Lvl 1.9 3.5 - 5.0 08/29 [facility] CHEM PANEL ALT 39 0 - 65 08/29 [facility] CHEM PANEL Total 6.9 6.4 - 8.4 08/29 Protein [facility] CHEM PANEL Bili Total 0.3 0.2 - 1.3 08/29 [facility] HEMATOLOGY Monocytes # 0.6 0.0 - 0.8 08/29 [facility] HEMATOLOGY Lymphocytes 1.9 1.0 - 5.5 08/29 MH # /2015 [facility] HEMATOLOGY Eosinophils 0.0 0.0 - 0.5 / MH # /2015 [facility] HEMATOLOGY Basophils # 0.0 0.0 - 0.2 08/29 [facility] HEMATOLOGY Eosinophils 0.1 0.0 - 4.0 08/29 /2014 [facility] HEMATOLOGY Monocytes 3.8 2.0 - 12.0 08/29 /2014 [facility] HEMATOLOGY Basophils 0.2 0.0 - 1.0 08/29 /2014 [facility] HEMATOLOGY Segs-Bands # 13.9 1.5 - 8.1 08/29 /2014 [facility] HEMATOLOGY Segs 84.1 45.0 - 08/29 75.0 /2014 [facility] HEMATOLOGY Lymphocytes 11.8 20.0 - 08/29 40.0 /2014 [facility] HEMATOLOGY PTT 32.7 22.9 - 08/29 <sup>4</sup>I 35.8 /2014 nterpretive [facility] Data: Heparin Therapeutic Range: 57 - 92 Seconds HEMATOLOGY PT 12.4 12.0 - 08/29 14.7 /2014 [facility] HEMATOLOGY INR 0.93 0.85 - 08/29 <sup>3</sup>I 1.17 /2014 nterpretive [facility] Data: RECOMMENDED RANGES FOR PROTIME INR:
2.0-3.0 for most medical and surgical thromboemboli c states.
2.5-3.5 for artificial heart valves and recurrent embolism.<br/ >
INR SHOULD BE USED ONLY FOR PATIENTS ON STABLE ANTICOAGULANT THERAPY. HEMATOLOGY MPV 9.5 7.4 - 10.4 08/29 [facility] HEMATOLOGY MCHC 32.4 32.0 - 08/29 36.0 /2014 [facility] HEMATOLOGY RDW 14.2 11.5 - 08/29 14.5 /2014 [facility] HEMATOLOGY Platelet 229 133 - 450 08/29 [facility] HEMATOLOGY MCV 87.9 80.0 - 08/29 98.0 /2014 [facility] HEMATOLOGY WBC 16.5 3.7 - 10.4 08/29 [facility] HEMATOLOGY RBC 4.32 4.20 - 08/29 5.40 /2014 [facility] HEMATOLOGY Hgb 12.3 12.0 - 08/29 16.0 /2014 [facility] HEMATOLOGY Hct 37.9 36.0 - 08/29 48.0 /2014 [facility] MCH 28.5 27.0 - 08/29 31.0 /2014 [facility] Pathology Reports No Data Provided for This Section Diagnostic Reports Report Value Date Source Chest 2 views DX REASON FOR EXAM: Cough. 05/18/2016 [facility]AY[facility]N [place] COMPARISON: Portable chest x-ray 06/17/2015. FINDINGS: A two-view chest x-ray was performed. [...] bilaterally. 3. Enlarged cardiac silhouette. SL: 15 Chest 1view DX Study: Chest 1view DX 06/17/2015 11:44 AM CDT 06/17/2015 [facility] Patient Name: ROSA PINO MR: [id number] : 1970; Age: 45 years y/o Female Ordering Physician: Tara Vaughn Clinical Indication: Dyspnea [...] size near upper limits of normal. SL: [id number] Brain CTA EXAM: BRAIN CTA WITH CONTRAST 08/29/2014 [facility] EXAM: BRAIN CT WITHOUT CONTRAST DATE: Aug 29, 2014 06:09:00 PM INDICATION: Headache Primary [place] COMPARISON: None TECHNIQUE [...] are diffusely mildly narrow in caliber. The petrous , cavernous and supraclinoid portions of the internal [...] No acute intracranial abnormality identified. SL: 12 Consultation Notes No Data Provided for This Section Discharge Summaries No Data Provided for This Section History and Physicals No Data Provided for This Section Vital Signs Vital Sign Value Date Comments Source BMI Calculated 28.95 08/05/2015 [facility] Height 172.72 cm 08/05/2015 [facility] Weight 86.364 08/05/2015 [facility] Temperature Oral (F) 97.7 F 08/05/2015 [facility] Heart Rate 118 08/05/2015 [facility] Respitory Rate 16 08/05/2015 [facility] Systolic (mm Hg) 168 08/05/2015 [facility] Diastolic (mm Hg) 103 08/05/2015 [facility] Respitory Rate 18 07/01/2015 [facility] Systolic (mm Hg) 159 07/01/2015 [facility] Diastolic (mm Hg) 99 07/01/2015 [facility] Respitory Rate 18 07/01/2015 [facility] Systolic (mm Hg) 160 07/01/2015 [facility] Diastolic (mm Hg) 100 07/01/2015 [facility] Systolic (mm Hg) 158 07/01/2015 [facility] Diastolic (mm Hg) 102 07/01/2015 [facility] Respitory Rate 18 07/01/2015 [facility] Temperature Oral (F) 98.2 F 07/01/2015 [facility] Heart Rate 112 07/01/2015 [facility] BMI Calculated 32.5 06/30/2015 [facility] Height 170.18 cm 06/30/2015 [facility] Weight 94.119 06/30/2015 [facility] Heart Rate 89 06/17/2015 [facility] Temperature Oral (F) 98.0 F 06/17/2015 [facility] Respitory Rate 20 06/17/2015 [facility] Systolic (mm Hg) 132 06/17/2015 [facility] Diastolic (mm Hg) 88 06/17/2015 [facility] Weight 86.364 06/17/2015 [facility] Heart Rate 103 06/17/2015 [facility] Respitory Rate 22 06/17/2015 [facility] Systolic (mm Hg) 173 06/17/2015 [facility] Diastolic (mm Hg) 122 06/17/2015 [facility] BMI Calculated 28.95 06/17/2015 [facility] Height 172.72 cm 06/17/2015 [facility] Temperature Oral (F) 98.2 F 06/17/2015 [facility] Systolic (mm Hg) 137 08/29/2014 [facility] Diastolic (mm Hg) 91 08/29/2014 [facility] Temperature Oral (F) 98.3 F 08/29/2014 [facility] Heart Rate 91 08/29/2014 [facility] Respitory Rate 18 08/29/2014 [facility] Respitory Rate 20 08/29/2014 [facility] Heart Rate 89 08/29/2014 [facility] Systolic (mm Hg) 174 08/29/2014 [facility] Diastolic (mm Hg) 102 08/29/2014 [facility] Weight 86.364 08/29/2014 [facility] BMI Calculated 28.95 08/29/2014 [facility] Heart Rate 97 08/29/2014 [facility] Respitory Rate 18 08/29/2014 [facility] Systolic (mm Hg) 163 08/29/2014 [facility] Diastolic (mm Hg) 113 08/29/2014 [facility] Temperature Oral (F) 98.3 F 08/29/2014 [facility] Height 172.72 cm 08/29/2014 [facility] Encounters Location Location Encounter Encounter Reason Attending ADM DC Status Source Details Type Number For Provider Date Date Visit [facility] [place] [id number] Kizzy 08/29 08/30 [facility] [place] /2014 [facility] [place] [id number] Woody 06/16 06/16 [facility] Hehman /2015 [facility] OBS Day [id number] Alexandre 06/30 06/30 [facility] /2015 [facility] [place] [id number] Latia Sarah 08/04 08/04 [facility] /2015 [facility] Outpt Diag [id number] Casey 05/18 05/19 [facility] Ryan /2016 [facility] Procedures Procedure Code Date Perfomer Comments Source Cholecystectomy [id number] [facility],[address], [facility] [place] Abdominal [id number] [facility], hysterectomy [facility], [facility] [place],[facility] CS - section [id number] [facility], [facility] [place] Assessment and Plan No Data Provided for This Section Plan of Care No Data Provided for This Section Social History Social History Date Source Social History TypeResponse 06/30/2015 [facility] Substance Abuse Use: None. Alcohol Never Smoking Status Never smoker; Previous treatment: None; Ready to change: No; Concerns about tobacco use in household: No; Exposure to Tobacco Smoke None; Cigarette Smoking Last 365 Days No; Reg Smoking Cessation Counseling No Social History TypeResponse 06/30/2015 [facility] Substance Abuse Use: None. Alcohol Never Smoking Status Never smoker; Previous treatment: None; Ready to change: No; Concerns about tobacco use in household: No; Exposure to Tobacco Smoke None; Cigarette Smoking Last 365 Days No; Reg Smoking Cessation Counseling No Social History TypeResponse 06/30/2015 [facility] Substance Abuse Use: None. Alcohol Never Smoking Status Never smoker; Previous treatment: None; Ready to change: No; Concerns about tobacco use in household: No; Exposure to Tobacco Smoke None; Cigarette Smoking Last 365 Days No; Reg Smoking Cessation Counseling No Social History TypeResponse 06/17/2015 [facility] Substance Abuse Use: None. Alcohol Never Smoking Status Never smoker; Previous treatment: None; Ready to change: No; Concerns about tobacco use in household: No; Exposure to Tobacco Smoke None; Cigarette Smoking Last 365 Days No; Reg Smoking Cessation Counseling No Family History No Data Provided for This Section Advance Directives No Data Provided for This Section Functional Status No Data Provided for This Section
--- OUTSIDE RECORDS SUMMARY | 2018-11-21 11:10 | XMS REPORT ---
:1970 [facility] Yovani Pearl [address] [place] [id number] Care Team Providers Name Role Phone UNKNOWN, [...] Blood Gas (test 0.7 mmol/L code=BGLA) HEMOGLOBIN [id number] 08:30:00 Test Item Value Reference Range Comments HEMOGLOBIN A1C (BEAKER) (test sehd=764) 5.3 % 4.3-6.1 POCT-GLUCOSE [id number] 07:28:00 Test Item Value Reference Range Comments POC-GLUCOSE METER (BEAKER) 78 mg/dL 70-110 TESTED AT [address] (test ycoh=2733) [place] [address] POCT-GLUCOSE [id number] 20:51:00 Test Item Value Reference Range Comments POC-GLUCOSE METER (BEAKER) 49 mg/dL 70-110 Will Repeat Test/TESTED AT (test rdcd=7832) [place] [id number] POCT-GLUCOSE [id number] 18:20:00 Test Item Value Reference Range Comments POC-GLUCOSE METER (BEAKER) 188 mg/dL 70-110 TESTED AT [address] (test jadv=3169) [place] [address] T4, [id number] 17:50:00 Test Item Value Reference Range Comments FREE T4 (BEAKER) (test rbnu=885) 1.31 ng/dL 0.70-1.48 SEDIMENTATION [id number] 17:38:00 Test Item Value Reference Range Comments SEDIMENTATION RATE, ERYTHROCYTE (BEAKER) (test 103 mm/HR 0-20 etpb=940) TSH/FREE T4 IF [id number] 16:25:00 Test Item Value Reference Range Comments THYROID STIMULATING HORMONE (BEAKER) (test 0.30 uIU/mL 0.35-4.94 ljkf=165) CREATINE KINASE (CK), TOTAL AND [id number] 16:08:00 Test Item Value Reference Range Comments CREATINE KINASE TOTAL (BEAKER) (test vigt=639) 111 U/L 29-200 CREATINE KINASE-MB (BEAKER) (test ubwh=254) 4.8 ng/mL 0.0-6.6 CREATINE KINASE-MB INDEX (BEAKER) (test aukp=209) 4.3 % CK-MB Reference Range:<6.7 Normal6.7-10.0 Borderline>10.0 AbnormalTROPONIN [id number] 16:08:00 Test Item Value Reference Range Comments TROPONIN I (BEAKER) (test dexw=043) 0.10 ng/mL 0.00-0.03 Troponin I (TnI) levels [...] and persistent tachyarrhythmia.CREATINE KINASE (CK), TOTAL AND [id number] 16:07:00 Test Item Value Reference Range Comments CREATINE KINASE TOTAL (BEAKER) (test ogqv=817) 100 U/L 29-200 CREATINE KINASE-MB (BEAKER) (test dsby=495) 3.7 ng/mL 0.0-6.6 CREATINE KINASE-MB INDEX (BEAKER) (test ndnv=061) 3.7 % CK-MB Reference Range:<6.7 Normal6.7-10.0 Borderline>10.0 AbnormalTROPONIN [id number] 16:07:00 Test Item Value Reference Range Comments TROPONIN I (BEAKER) (test dzmf=506) 0.10 ng/mL 0.00-0.03 Troponin I (TnI) levels [...] failure, acidosis, acute neurological disease, and persistent tachyarrhythmia.[id number] 15:59:00 Test Item Value Reference Range Comments PHOSPHORUS (BEAKER) (test sdmm=647) 5.1 mg/dL 2.3-4.7 LIPID [id number] 15:59:00 Test Item Value Reference Range Comments TRIGLYCERIDES (BEAKER) (test ztix=610) 64 mg/dL CHOLESTEROL (BEAKER) (test srti=766) 112 mg/dL HDL CHOLESTEROL (BEAKER) (test uyjx=711) 36 mg/dL LDL CHOLESTEROL CALCULATED (BEAKER) (test 63 mg/dL evxm=211) Triglyceride Reference Range: Low Risk <150 Borderline 150- 199 High Risk 200-499 Very High Risk >=500Cholesterol Reference Range: Low Risk <200 Borderline 200-239 High Risk > 240HDL Cholesterol Reference Range: Low Risk >=60 High Risk <40LDL Cholesterol Reference Range: Optimal <100 Near Optimal 100-129 Borderline 130-159 High 160-189 Very High >=190HEPATIC FUNCTION [id number] 15:59:00 Test Item Value Reference Range Comments TOTAL PROTEIN (BEAKER) (test xdjc=053) 6.6 gm/dL 6.0-8.3 ALBUMIN (BEAKER) (test xvyn=0607) 2.5 g/dL 3.5-5.0 BILIRUBIN TOTAL (BEAKER) (test ubzp=897) 0.4 mg/dL 0.2-1.2 BILIRUBIN DIRECT (BEAKER) (test urdh=355) 0.1 mg/dL 0.1-0.5 ALKALINE PHOSPHATASE (BEAKER) (test vodp=310) 82 U/L 40-150 AST (SGOT) (BEAKER) (test evqb=052) 16 U/L 5-34 ALT (SGPT) (BEAKER) (test ytkz=310) 10 U/L 6-55 C-REACTIVE [id number] 15:59:00 Test Item Value Reference Range Comments C-REACTIVE PROTEIN (BEAKER) (test neig=553) 0.52 mg/dL 0.00-0.50 BASIC METABOLIC [id number] 15:59:00 Test Item Value Reference Range Comments SODIUM (BEAKER) (test 140 meq/L 136-145 rmlb=864) POTASSIUM (BEAKER) (test 4.4 meq/L 3.5-5.1 cgid=822) CHLORIDE (BEAKER) (test 110 meq/L 98-107 bjse=508) CO2 (BEAKER) (test 21 meq/L 22-29 rabn=860) BLOOD UREA NITROGEN 54 mg/dL 7-21 (BEAKER) (test mrsa=039) CREATININE (BEAKER) (test 9.62 mg/dL 0.57-1.25 symi=632) GLUCOSE RANDOM (BEAKER) 87 mg/dL 70-105 (test ntic=449) CALCIUM (BEAKER) (test 8.0 mg/dL 8.4-10.2 bsya=045) EGFR (BEAKER) (test 5 mL/min/1.73 sq m ESTIMATED GFR IS NOT lkyp=0533) ACCURATE CREATININE CLEARANCE IN PREDICTING GLOMERULAR FILTRATION RATE. ESTIMATED GFR IS NOT APPLICABLE FOR DIALYSIS PATIENTS. CBC W/PLT COUNT & AUTO [id number] 15:16:00 Test Item Value Reference Range Comments WHITE BLOOD CELL COUNT (BEAKER) (test ztbr=003) 4.3 K/ L 3.5-10.5 RED BLOOD CELL COUNT (BEAKER) (test hchw=953) 2.57 M/ L 3.93-5.22 HEMOGLOBIN (BEAKER) (test uoia=914) 7.3 GM/DL 11.2-15.7 HEMATOCRIT (BEAKER) (test smfr=993) 23.4 % 34.1-44.9 MEAN CORPUSCULAR VOLUME (BEAKER) (test ksgo=547) 91.1 fL 79.4-94.8 MEAN CORPUSCULAR HEMOGLOBIN (BEAKER) (test 28.4 pg 25.6-32.2 wrue=209) MEAN CORPUSCULAR HEMOGLOBIN CONC (BEAKER) (test 31.2 GM/DL 32.2-35.5 itqg=483) RED CELL DISTRIBUTION WIDTH (BEAKER) (test 15.1 % 11.7-14.4 vmci=154) PLATELET COUNT (BEAKER) (test jrdw=874) 184 K/CU MM 150-450 MEAN PLATELET VOLUME (BEAKER) (test wggy=399) 10.8 fL 9.4-12.3 NUCLEATED RED BLOOD CELLS (BEAKER) (test 0 /100 WBC 0-0 tiwf=030) NEUTROPHILS RELATIVE PERCENT (BEAKER) (test 58 % zzca=018) LYMPHOCYTES RELATIVE PERCENT (BEAKER) (test 25 % bjmt=780) MONOCYTES RELATIVE PERCENT (BEAKER) (test 13 % dlxi=713) EOSINOPHILS RELATIVE PERCENT (BEAKER) (test 4 % nept=729) BASOPHILS RELATIVE PERCENT (BEAKER) (test 1 % vcpv=241) NEUTROPHILS ABSOLUTE COUNT (BEAKER) (test 2.50 K/ L 1.56-6.13 zhwz=875) LYMPHOCYTES ABSOLUTE COUNT (BEAKER) (test 1.07 K/ L 1.18-3.74 qunv=236) MONOCYTES ABSOLUTE COUNT (BEAKER) (test 0.55 K/ L 0.24-0.36 llge=427) EOSINOPHILS ABSOLUTE COUNT (BEAKER) (test 0.17 K/ L 0.04-0.36 wnzq=756) BASOPHILS ABSOLUTE COUNT (BEAKER) (test 0.02 K/ L 0.01-0.08 pnur=548) IMMATURE GRANULOCYTES-RELATIVE PERCENT (BEAKER) 0 % 0-1 (test xxim=1093) PROTHROMBIN [id number] 15:08:00 Test Item Value Reference Range Comments PROTIME (BEAKER) (test hduj=366) 16.0 seconds 11.7-14.7 INR (BEAKER) (test waap=596) 1.3 <=5.9 RECOMMENDED COUMADIN/WARFARIN INR THERAPY RANGESSTANDARD DOSE: 2.0 - 3.0 Includes: PROPHYLAXIS forvenous thrombosis, systemic embolization; TREATMENT for venous thrombosis and/or pulmonary embolus.HIGH RISK: Target INR is 2.5-3.5 for patients with mechanical heart valves.POCT-GLUCOSE [id number] 12:04:00 Test Item Value Reference Range Comments POC-GLUCOSE METER (BEAKER) 187 mg/dL 70-110 TESTED AT [facility] [address] [facility] (test vton=7805) [facility] [address] POCT-GLUCOSE [id number] 09:11:00 Test Item Value Reference Range Comments POC-GLUCOSE METER (BEAKER) 83 mg/dL 70-110 TESTED AT [facility] [address] (test xmeh=3906) [facility] [address] MR, BRAIN, WITHOUT [id number] 00:47:00PT started dialysis 2015Reason for exam:->Sudden onset [...] MDReport Verified Date/Time: 02/23/2017 00:47:16 Reading Location: [address] Body Reading Room AFB CULTURE + [id number] 07: 45:00 Test Item Value Reference Range Comments CULTURE (BEAKER) (test No acid-fast bacilli isolated uxvu=4587) in 42 days AFB SMEAR (BEAKER) (test No acid fast bacilli seen ddoh=292) AFB CULTURE + [id number] 07:45:00 Test Item Value Reference Range Comments CULTURE (BEAKER) (test No acid-fast bacilli isolated gsrp=9718) in 42 days AFB SMEAR (BEAKER) (test No acid fast bacilli seen vahq=779) FUNGUS CULTURE + [id number] 18:17:00 Test Item Value Reference Range Comments CULTURE (BEAKER) (test No fungus isolated in 28 days ehmh=8923) FUNGUS SMEAR (BEAKER) (test No fungi seen rixx=7797) FUNGUS CULTURE + [id number] 18:17:00 Test Item Value Reference Range Comments CULTURE (BEAKER) (test No fungus isolated in 28 days ftup=6330) FUNGUS SMEAR (BEAKER) (test No fungi seen ktvp=4286) AFB CULTURE + [id number] 14:52:00 Test Item Value Reference Range Comments CULTURE (BEAKER) (test No acid-fast bacilli isolated onhk=4472) in 42 days AFB SMEAR (BEAKER) (test No acid fast bacilli seen bnxd=811) AB SPECIFICITY CLASS [id number] 10:13:00 Test Item Value Reference Range Comments DATE OF SERUM (BEAKER) (test zpbz=1706) [id number] SERUM # (BEAKER) (test pmfy=9921) 672103 AB SPECIFICITY CLASS I (BEAKER) (test knut=3755) AB SPECIFICITY CLASS [id number] 10:13:00 Test Item Value Reference Range Comments DATE OF SERUM (BEAKER) (test bqdz=5216) 688656 SERUM # (BEAKER) (test dlyy=5285) 861694 AB SPECIFICITY CLASS II (BEAKER) (test See Scanned Report mgod=8519) HERPES VIRUS ANTIBODY, [id number] 14:21:00 Test Item Value Reference Range Comments HERPES VIRUS IGM (BEAKER) (test Negative HSV 1 IGM=NEGHSV 2 IGM=NEG rlpx=3181) TOXOPLASMA GONDII ANTIBODY, [id number] 14:21:00 Test Item Value Reference Range Comments TOXOPLASMA IGM ANTIBODY (BEAKER) (test icpf=779) Negative FLOW PRA CLASS I AND [id number] 15:15:00 Test Item Value Reference Range Comments DATE OF SERUM (BEAKER) (test nbje=5841) [id number] SERUM # (BEAKER) (test qfof=7745) 652422 FLOW PRA CLASS I AND II (test rkup=2229) See Scanned Report VARICELLA ZOSTER ANTIBODY, [id number] 14:59:00 Test Item Value Reference Range Comments VARICELLA ZOSTER IGG (AL) (BEAKER) (test fdvh=7356) 5.8 Al VARICELLA ZOSTER RESULT INTERPRETATIONS: <=0.8 Al Nonreactive: Presumed non-immune to VZV 0.9-1.0 Al Equivocal >=1.1 Al Reactive: Presumed immune to VZVCT, [id number] 14:16:00PT started dialysis 07/12/2015Addendum BeginsREPORT STATUS:A The original report incorrectly states that the procedure was performed with intravenous contrast. In fact, the procedure was performed without intravenous contrast. Signed: Gigi Diaz MDReport Verified Date/Time: 01/13/2017 14: 16:42 ReadingLocation: [facility] B1 C013X Ortho Consult Reading RoomAddendum [...] Verified Date/Time: 01/06/2017 23:49: 19 Reading Location: [facility] T223FZzvocir Reading Room CT, CHEST, WITHOUT [id number] 14:16:00PT started dialysis 07/12/2015Addendum BeginsREPORT STATUS:A The original report incorrectly states that the procedure was performed with intravenous contrast. In fact, the procedure was performed without intravenous contrast. Signed: Gigi Diaz MDReport Verified Date/Time: 01/13/2017 14:16:42 ReadingLocation: [facility] C013X Ortho Consult Reading RoomAddendum EndsFINAL [...] MDReport Verified Date/Time: 01/06/2017 23:49:19 Reading Location: [facility] B1 [id number] Reading Room Electronically signed by: GIGI DIAZ M.D. on 2016 02:16 [facility] METABOL[facility] [id number] 14:06:00 Test Item Value Reference Range Comments SODIUM (BEAKER) (test 135 meq/L 136-145 daoh=255) POTASSIUM (BEAKER) (test 4.1 meq/L 3.5-5.1 akhl=194) CHLORIDE (BEAKER) (test 102 meq/L 98-107 cfwj=954) CO2 (BEAKER) (test 24 meq/L 22-29 ofxz=426) BLOOD UREA NITROGEN 24 mg/dL 7-21 (BEAKER) (test jrot=689) CREATININE (BEAKER) (test 8.29 mg/dL 0.57-1.25 iorm=597) GLUCOSE RANDOM (BEAKER) 84 mg/dL 70-105 (test umzm=467) CALCIUM (BEAKER) (test 8.8 mg/dL 8.4-10.2 dvhs=454) EGFR (BEAKER) (test 6 mL/min/1.73 sq m ESTIMATED GFR IS NOT hmvc=2798) ACCURATE CREATININE CLEARANCE IN PREDICTING GLOMERULAR FILTRATION RATE. ESTIMATED GFR IS NOT APPLICABLE FOR DIALYSIS PATIENTS. [id number] 14:04:00 Test Item Value Reference Range Comments MAGNESIUM (BEAKER) (test oulq=621) 1.7 mg/dL 1.6-2.6 PROTHROMBIN [id number] 13:52:00 Test Item Value Reference Range Comments PROTIME (BEAKER) (test lhbk=363) 16.5 seconds 11.7-14.7 INR (BEAKER) (test exoo=917) 1.3 <=5.9 RECOMMENDED COUMADIN/WARFARIN INR THERAPY RANGESSTANDARD DOSE: 2.0 - 3.0 Includes: PROPHYLAXIS forvenous thrombosis, systemic embolization; TREATMENT for venous thrombosis and/or pulmonary embolus.HIGH RISK: Target INR is 2.5-3.5 for patients with mechanical heart valves.While on warfarin.CBC (HEMOGRAM ONLY) 2017-01-13 13:43:00 Test Item Value Reference Range Comments WHITE BLOOD CELL COUNT (BEAKER) (test dwqo=240) 3.9 K/ L 3.5-10.5 RED BLOOD CELL COUNT (BEAKER) (test rvln=336) 2.61 M/ L 3.93-5.22 HEMOGLOBIN (BEAKER) (test xjgj=677) 7.5 GM/DL 11.2-15.7 HEMATOCRIT (BEAKER) (test njfq=435) 23.8 % 34.1-44.9 MEAN CORPUSCULAR VOLUME (BEAKER) (test artw=956) 91.2 fL 79.4-94.8 MEAN CORPUSCULAR HEMOGLOBIN (BEAKER) (test 28.7 pg 25.6-32.2 pimo=220) MEAN CORPUSCULAR HEMOGLOBIN CONC (BEAKER) (test 31.5 GM/DL 32.2-35.5 dzat=382) RED CELL DISTRIBUTION WIDTH (BEAKER) (test 14.2 % 11.7-14.4 epbs=934) PLATELET COUNT (BEAKER) (test mylf=231) 187 K/CU MM 150-450 MEAN PLATELET VOLUME (BEAKER) (test ipmy=824) 11.2 fL 9.4-12.3 NUCLEATED RED BLOOD CELLS (BEAKER) (test 0 /100 WBC 0-0 naqx=548) POCT-GLUCOSE [id number] 07:33:00 Test Item Value Reference Range Comments POC-GLUCOSE METER (BEAKER) 82 mg/dL 70-110 TESTED AT [address] (test kmnr=8036) [facility] [address] POCT-GLUCOSE [id number] 22:10:00 Test Item Value Reference Range Comments POC-GLUCOSE METER (BEAKER) 118 mg/dL 70-110 TESTED AT [address] (test vfqh=7795) [facility] [address] POCT-GLUCOSE [id number] 16:58:00 Test Item Value Reference Range Comments POC-GLUCOSE METER (BEAKER) 102 mg/dL 70-110 TESTED AT [address] (test qgwm=4828) [place] [address] POCT-GLUCOSE [id number] 07:43:00 Test Item Value Reference Range Comments POC-GLUCOSE METER (BEAKER) 93 mg/dL 70-110 TESTED AT [address] (test qjbm=8219) [place] [address] POCT-GLUCOSE [id number] 21:58:00 Test Item Value Reference Range Comments POC-GLUCOSE METER (BEAKER) 130 mg/dL 70-110 TESTED AT [address] (test ocxp=6926) [place] [address] POCT-GLUCOSE [id number] 17:59:00 Test Item Value Reference Range Comments POC-GLUCOSE METER (BEAKER) 144 mg/dL 70-110 TESTED AT [address] (test npcl=1547) [place] [address] CYTOMEGALOVIRUS ANTIBODY, [id number] 15:45:00 Test Item Value Reference Range Comments CYTOMEGALOVIRUS IGG ANTIBODY (BEAKER) (test Negative erxe=228) CYTOMEGALOVIRUS ANTIBODY, [id number] 15:45:00 Test Item Value Reference Range Comments CYTOMEGALOVIRUS IGM ANTIBODY (BEAKER) (test Negative sdzz=144) HERPES VIRUS ANTIBODY, [id number] 15:45:00 Test Item Value Reference Range Comments HERPES VIRUS IGG (BEAKER) (test Positive HSV 1 IGG=POSHSV 2 IGG=POS orxg=5773) EBV-VCA ANTIBODY, [id number] 15:45:00 Test Item Value Reference Range Comments GIO-NICK VCA IGG (BEAKER) (test jswj=873) Positive EBV-VCA ANTIBODY, [id number] 15:45:00 Test Item Value Reference Range Comments GIO-NICK VCA IGM (BEAKER) (test kpdz=719) Negative TOXOPLASMA GONDII ANTIBODY, [id number] 15:45:00 Test Item Value Reference Range Comments TOXOPLASMA GONDII IGG (BEAKER) (test sioc=688) Negative POCT-GLUCOSE [id number] 14:27:00 Test Item Value Reference Range Comments POC-GLUCOSE METER (BEAKER) 108 mg/dL 70-110 TESTED AT [facility] [address] [facility] (test dshg=7738) [facility] [address] IMMUNOFIXATION ELECTROPHORESIS (YOANNA)2017-01-11 13:52:00 Test Item Value Reference Range Comments IMMUNOGLOBULIN G (IGG) (BEAKER) 2035 mg/dL 540-1822 (test ecmk=546) IMMUNOGLOBULIN A (IGA) (BEAKER) 148 mg/dL 63-484 (test sgez=640) IMMUNOGLOBULIN M (IGM) (BEAKER) 125 mg/dL 22-293 (test bnzq=837) SERUM YOANNA ID (BEAKER) (test Polyclonal distribution of cwdy=1311) immunoglobulins; no monoclonal proteins detected. Small band seen on SPEP, therefore, is likely due to presence of fibrinogen in the sample. [id number] ([facility]) Pat Pinzon MD (test kdbh=4090) (electronic signature) Do not collect, specimen already in lab.BASIC METABOLIC [id number] 09:44:00 Test Item Value Reference Range Comments SODIUM (BEAKER) (test 137 meq/L 136-145 rmcp=226) POTASSIUM (BEAKER) (test 3.9 meq/L 3.5-5.1 vldc=195) CHLORIDE (BEAKER) (test 101 meq/L 98-107 kutz=857) CO2 (BEAKER) (test 30 meq/L 22-29 ywfy=324) BLOOD UREA NITROGEN 20 mg/dL 7-21 (BEAKER) (test gjrd=533) CREATININE (BEAKER) (test 7.35 mg/dL 0.57-1.25 xmkd=810) GLUCOSE RANDOM (BEAKER) 85 mg/dL 70-105 (test piul=655) CALCIUM (BEAKER) (test 8.5 mg/dL 8.4-10.2 tqaj=731) EGFR (BEAKER) (test 7 mL/min/1.73 sq m ESTIMATED GFR IS NOT pwzt=7090) ACCURATE CREATININE CLEARANCE IN PREDICTING GLOMERULAR FILTRATION RATE. ESTIMATED GFR IS NOT APPLICABLE FOR DIALYSIS PATIENTS. [id number] 09:20:00 Test Item Value Reference Range Comments MAGNESIUM (BEAKER) (test jgwg=104) 1.8 mg/dL 1.6-2.6 POCT-GLUCOSE [id number] 09:18:00 Test Item Value Reference Range Comments POC-GLUCOSE METER (BEAKER) 100 mg/dL 70-110 TESTED AT [address] (test oikq=5832) [facility] [address] PROTHROMBIN [id number] 08:51:00 Test Item Value Reference Range Comments PROTIME (BEAKER) (test ydzm=859) 15.1 seconds 11.7-14.7 INR (BEAKER) (test wqhy=184) 1.2 <=5.9 RECOMMENDED COUMADIN/WARFARIN INR THERAPY RANGESSTANDARD DOSE: 2.0 - 3.0 Includes: PROPHYLAXIS forvenous thrombosis, systemic embolization; TREATMENT for venous thrombosis and/or pulmonary embolus.HIGH RISK: Target INR is 2.5-3.5 for patients with mechanical heart valves.While on warfarin.HGB/HCT (H&H) - STAT [id number] 08:44:00 Test Item Value Reference Range Comments HEMOGLOBIN (BEAKER) (test tszx=540) 8.0 g/dL 12.0-15.0 HEMATOCRIT (BEAKER) (test xgcy=482) 24.0 % 36.0-45.0 POCT-GLUCOSE [id number] 23:05:00 Test Item Value Reference Range Comments POC-GLUCOSE METER (BEAKER) 108 mg/dL 70-110 TESTED AT [address] (test zsjj=2229) [facility] [address] POCT-GLUCOSE [id number] 17:36:00 Test Item Value Reference Range Comments POC-GLUCOSE METER (BEAKER) 133 mg/dL 70-110 TESTED AT [address] (test aogd=9945) [facility] [address] POCT-GLUCOSE [id number] 12:31:00 Test Item Value Reference Range Comments POC-GLUCOSE METER (BEAKER) 115 mg/dL 70-110 TESTED AT [address] (test gynf=3465) [place] [address] FUNGUS CULTURE + [id number] 12:30:00 Test Item Value Reference Range Comments CULTURE (BEAKER) (test No fungus isolated in 28 days wuka=7055) FUNGUS SMEAR (BEAKER) (test No fungi seen vfhf=6427) POCT-GLUCOSE [id number] 08:30:00 Test Item Value Reference Range Comments POC-GLUCOSE METER (BEAKER) 99 mg/dL 70-110 TESTED AT [address] (test ycuy=4706) [place] [address] POCT-GLUCOSE [id number] 00:16:00 Test Item Value Reference Range Comments POC-GLUCOSE METER (BEAKER) 106 mg/dL 70-110 TESTED AT [address] (test ifel=4560) [place] [address] POCT-GLUCOSE [id number] 22:21:00 Test Item Value Reference Range Comments POC-GLUCOSE METER (BEAKER) 88 mg/dL 70-110 TESTED AT [address] (test xboq=4896) [place] [address] POCT-GLUCOSE [id number] 14:36:00 Test Item Value Reference Range Comments POC-GLUCOSE METER (BEAKER) 119 mg/dL 70-110 TESTED AT [address] (test eovq=4070) [place] [address] PROTEIN ELECTROPHORESIS, [id number] 13:56:00 Test Item Value Reference Range Comments ALBUMIN FRACTION (BEAKER) 2.0 g/dL 3.5-5.5 (test kbng=089) ALPHA 1 FRACTION (BEAKER) 0.3 g/dL 0.2-0.4 (test iucs=901) ALPHA 2 FRACTION (BEAKER) 0.6 g/dL 0.5-0.9 (test kwli=234) BETA FRACTION (BEAKER) 0.9 g/dL 0.6-1.1 (test fpkw=153) GAMMA GLOBULIN FRACTION 1.9 g/dL 0.7-1.7 (BEAKER) (test abtt=700) INTERPRETATION-119 (BEAKER) There is a peak in the gamma (test dtud=4421) region that may indicate a monoclonal gammopathy. Refer to serum immunofixation electrophoresis. [id number] Anne Yen MD (electronic (BEAKER) (test dkqc=3804) signature) PROTEIN TOTAL SERUM, SPEP 5.7 gm/dL 6.0-8.3 (BEAKER) (test ryaa=9019) Do not collect, specimen already in lab.POTASSIUM-STAT [id number] 10:33:00 Test Item Value Reference Range Comments POTASSIUM (BEAKER) (test ttpf=180) 4.9 meq/L 3.6-5.5 GLUCOSE-STAT [id number] 10:33:00 Test Item Value Reference Range Comments GLUCOSE RANDOM (BEAKER) (test exgg=069) 129 mg/dL 70-110 HGB/HCT (H&H) - STAT [id number] 10:33:00 Test Item Value Reference Range Comments HEMOGLOBIN (BEAKER) (test gncz=836) 12.3 g/dL 12.0-15.0 HEMATOCRIT (BEAKER) (test qjtc=471) 36.0 % 36.0-45.0 HGB/HCT (H&H) - STAT [id number] 07:59:00 Test Item Value Reference Range Comments HEMOGLOBIN (BEAKER) (test pixm=856) 8.5 g/dL 12.0-15.0 HEMATOCRIT (BEAKER) (test facm=821) 25.0 % 36.0-45.0 BASIC METABOLIC [id number] 07:16:00 Test Item Value Reference Range Comments SODIUM (BEAKER) (test 134 meq/L 136-145 qlgx=753) POTASSIUM (BEAKER) (test 4.5 meq/L 3.5-5.1 ozrh=006) CHLORIDE (BEAKER) (test 101 meq/L 98-107 pofu=798) CO2 (BEAKER) (test 24 meq/L 22-29 reut=939) BLOOD UREA NITROGEN 24 mg/dL 7-21 (BEAKER) (test jzyh=182) CREATININE (BEAKER) (test 7.96 mg/dL 0.57-1.25 qxyn=939) GLUCOSE RANDOM (BEAKER) 88 mg/dL 70-105 (test wteu=319) CALCIUM (BEAKER) (test 8.5 mg/dL 8.4-10.2 ishp=146) EGFR (BEAKER) (test 7 mL/min/1.73 sq m ESTIMATED GFR IS NOT vcml=5466) ACCURATE CREATININE CLEARANCE IN PREDICTING GLOMERULAR FILTRATION RATE. ESTIMATED GFR IS NOT APPLICABLE FOR DIALYSIS PATIENTS. [id number] 07:10:00 Test Item Value Reference Range Comments MAGNESIUM (BEAKER) (test kdhv=498) 2.0 mg/dL 1.6-2.6 POCT-GLUCOSE [id number] 06:47:00 Test Item Value Reference Range Comments POC-GLUCOSE METER (BEAKER) 113 mg/dL 70-110 TESTED AT [address] (test exnk=0406) [place] [address] [id number] 02:25:00 Test Item Value Reference Range Comments PARTIAL THROMBOPLASTIN TIME (BEAKER) (test 67.7 seconds 22.5-36.0 fhhl=796) POCT-GLUCOSE [id number] 18:18:00 Test Item Value Reference Range Comments POC-GLUCOSE METER (BEAKER) 138 mg/dL 70-110 TESTED AT [address] (test zgef=1739) [place] [id number] 17:24:00 Test Item Value Reference Range Comments PROTIME (BEAKER) (test lhzf=644) 15.2 seconds 11.7-14.7 INR (BEAKER) (test dzbw=902) 1.2 <=5.9 PARTIAL THROMBOPLASTIN TIME (BEAKER) (test 37.0 seconds 22.5-36.0 wxar=482) RECOMMENDED COUMADIN/WARFARIN INR THERAPY RANGESSTANDARD DOSE: 2.0 - 3.0 Includes: PROPHYLAXIS forvenous thrombosis, systemic embolization; TREATMENT for venous thrombosis and/or pulmonary embolus.HIGH RISK: Target INR is 2.5-3.5 for patients with mechanical heart valves.ANAEROBIC [id number] 14:23:00 Test Item Value Reference Range Comments CULTURE (BEAKER) (test vmvq=8657) No anaerobes isolated ANAEROBIC [id number] 14:23:00 Test Item Value Reference Range Comments CULTURE (BEAKER) (test iwfu=4026) No anaerobes isolated POCT-GLUCOSE [id number] 12:45:00 Test Item Value Reference Range Comments POC-GLUCOSE METER (BEAKER) 126 mg/dL 70-110 TESTED AT [address] (test iphi=9968) [facility] [address] SURGICALLY OBTAINED CULTURE + GRAM [id number] 11:41:00 Test Item Value Reference Range Comments CULTURE (BEAKER) (test From Broth Only Same organism gdni=0243) has been isolated from cultures(s) of the same body site and collection date. Repeat identification and susceptibility testing performed only after consultation with the clinical microbiology laboratory.Refer to previous culture ofCoagulase negative Staphylococcus GRAM STAIN RESULT <1+ WBCs (BEAKER) (test cgbp=0854) GRAM STAIN RESULT No organisms seen (BEAKER) (test wapu=644674) SURGICALLY OBTAINED CULTURE + GRAM [id number] 11:38:00 Test Item Value Reference Range Comments CULTURE (BEAKER) (test thpi=5890) Clindamycin (test code=10) Erythromycin (test code=4) Levofloxacin (test code=22) Linezolid (test code=40) Nitrofurantoin (test code=23) Oxacillin (test code=14) Rifampin (test code=43) Tetracycline (test code=2) Trimethoprim + Sulfamethoxazole (test code=47) Vancomycin (test code=13) CULTURE (BEAKER) (test 2+ Coagulase negative vnvy=5642) Staphylococcus CULTURE (BEAKER) (test 4+ Diphtheroid xtum=6610) GRAM STAIN RESULT (BEAKER) <1+ WBCs (test cnfr=5725) GRAM STAIN RESULT (BEAKER) No organisms seen (test ldkc=273267) [id number] 10:08:00 Test Item Value Reference Range Comments PROTIME (BEAKER) (test rtaf=195) 14.7 seconds 11.7-14.7 INR (BEAKER) (test bhxq=759) 1.2 <=5.9 PARTIAL THROMBOPLASTIN TIME (BEAKER) (test 40.2 seconds 22.5-36.0 fksu=412) RECOMMENDED COUMADIN/WARFARIN INR THERAPY RANGESSTANDARD DOSE: 2.0 - 3.0 Includes: PROPHYLAXIS forvenous thrombosis, systemic embolization; TREATMENT for venous thrombosis and/or pulmonary embolus.HIGH RISK: Target INR is 2.5-3.5 for patients with mechanical heart valves.POCT-GLUCOSE [id number] 08:24:00 Test Item Value Reference Range Comments POC-GLUCOSE METER (BEAKER) 97 mg/dL 70-110 TESTED AT [address] (test bxqb=6847) [facility] [address] [id number] 07:39:00 Test Item Value Reference Range Comments PARTIAL THROMBOPLASTIN TIME (BEAKER) (test 192.0 seconds 22.5-36.0 ptil=593) [id number] 07:37:00 Test Item Value Reference Range Comments MAGNESIUM (BEAKER) (test rgye=233) 1.7 mg/dL 1.6-2.6 BASIC METABOLIC [id number] 07:37:00 Test Item Value Reference Range Comments SODIUM (BEAKER) (test 136 meq/L 136-145 fupr=696) POTASSIUM (BEAKER) (test 4.2 meq/L 3.5-5.1 tcxd=072) CHLORIDE (BEAKER) (test 100 meq/L 98-107 xgkk=794) CO2 (BEAKER) (test 31 meq/L 22-29 wbgf=414) BLOOD UREA NITROGEN 15 mg/dL 7-21 (BEAKER) (test gawi=652) CREATININE (BEAKER) (test 5.65 mg/dL 0.57-1.25 ghzx=615) GLUCOSE RANDOM (BEAKER) 121 mg/dL 70-105 (test ruhu=002) CALCIUM (BEAKER) (test 8.4 mg/dL 8.4-10.2 diat=586) EGFR (BEAKER) (test 10 mL/min/1.73 sq m ESTIMATED GFR IS NOT qiry=5451) ACCURATE CREATININE CLEARANCE IN PREDICTING GLOMERULAR FILTRATION RATE. ESTIMATED GFR IS NOT APPLICABLE FOR DIALYSIS PATIENTS. [id number] 23:25:00 Test Item Value Reference Range Comments PARTIAL THROMBOPLASTIN TIME (BEAKER) (test 97.8 seconds 22.5-36.0 iakz=326) POCT-GLUCOSE [id number] 22:52:00 Test Item Value Reference Range Comments POC-GLUCOSE METER (BEAKER) 98 mg/dL 70-110 TESTED AT [address] (test lfuq=8228) [facility] [address] POCT-GLUCOSE [id number] 17:43:00 Test Item Value Reference Range Comments POC-GLUCOSE METER (BEAKER) 86 mg/dL 70-110 TESTED AT [address] (test txyn=3439) [place] [address] [id number] 15:59:00 Test Item Value Reference Range Comments PARTIAL THROMBOPLASTIN TIME (BEAKER) (test 62.8 seconds 22.5-36.0 ajhh=428) POCT-GLUCOSE [id number] 14:50:00 Test Item Value Reference Range Comments POC-GLUCOSE METER (BEAKER) 115 mg/dL 70-110 TESTED AT [address] (test mykz=3115) [place] [address] [id number] 14:00:00 Test Item Value Reference Range Comments PARTIAL THROMBOPLASTIN TIME (BEAKER) (test 113.6 seconds 22.5-36.0 ebfw=070) VANCOMYCIN LEVEL, [id number] 13:10:00 Test Item Value Reference Range Comments VANCOMYCIN RANDOM (BEAKER) (test dzma=984) 33.9 ug/mL Reference Range: No NormalsTROPONIN [id number] 12:52:00 Test Item Value Reference Range Comments TROPONIN I (BEAKER) (test fbqt=296) 0.09 ng/mL 0.00-0.03 Troponin I (TnI) levels [...] acidosis, acute neurological disease, and persistent tachyarrhythmia.POCT-GLUCOSE [id number] 12:19:00 Test Item Value Reference Range Comments POC-GLUCOSE METER (BEAKER) 87 mg/dL 70-110 TESTED AT [address] (test cvfc=2459) [place] [address] POCT-GLUCOSE [id number] 08:36:00 Test Item Value Reference Range Comments POC-GLUCOSE METER (BEAKER) 62 mg/dL 70-110 Notified MILA IGLESIAS/TESTED AT [facility] (test npnv=6792) [address] [place] [address] ANTI-NUCLEAR ANTIBODY (MILTON)2017-01-07 06:33:00 Test Item Value Reference Range Comments ANTI-NUCLEAR ANTIBODY (MILTON) (BEAKER) (test Positive Negative rlqm=179) MILTON TITER AND [id number] 06:33:00 Test Item Value Reference Range Comments MILTON TITER (BEAKER) (test cxxf=4733) :640 [place] PATTERN (BEAKER) (test iims=5805) SSA/RO TROPONIN [id number] 03:35:00 Test Item Value Reference Range Comments TROPONIN I (BEAKER) (test lzjb=355) 0.10 ng/mL 0.00-0.03 Troponin I (TnI) levels [...] acute neurological disease, and persistent tachyarrhythmia.BASIC METABOLIC [id number] 03:28:00 Test Item Value Reference Range Comments SODIUM (BEAKER) (test 137 meq/L 136-145 akri=451) POTASSIUM (BEAKER) (test 4.5 meq/L 3.5-5.1 qiej=584) CHLORIDE (BEAKER) (test 103 meq/L 98-107 peyx=150) CO2 (BEAKER) (test 27 meq/L 22-29 ects=770) BLOOD UREA NITROGEN 22 mg/dL 7-21 (BEAKER) (test owah=412) CREATININE (BEAKER) (test 7.44 mg/dL 0.57-1.25 tcwy=031) GLUCOSE RANDOM (BEAKER) 73 mg/dL 70-105 (test nyzu=186) CALCIUM (BEAKER) (test 8.2 mg/dL 8.4-10.2 cgmy=457) EGFR (BEAKER) (test 7 mL/min/1.73 sq m ESTIMATED GFR IS NOT piir=8858) ACCURATE CREATININE CLEARANCE IN PREDICTING GLOMERULAR FILTRATION RATE. ESTIMATED GFR IS NOT APPLICABLE FOR DIALYSIS PATIENTS. [id number] 03:27:00 Test Item Value Reference Range Comments MAGNESIUM (BEAKER) (test lord=304) 1.9 mg/dL 1.6-2.6 [id number] 03:24:00 Test Item Value Reference Range Comments PARTIAL THROMBOPLASTIN TIME (BEAKER) (test 111.9 seconds 22.5-36.0 ktot=371) [id number] 00:18:00 Test Item Value Reference Range Comments RPR SCREEN (BEAKER) (test btas=780) Nonreactive Nonreactive BLOOD [id number] 00:00:00 Test Item Value Reference Range Comments CULTURE (BEAKER) (test rqyo=7720) No growth in 5 days BLOOD [id number] 00:00:00 Test Item Value Reference Range Comments CULTURE (BEAKER) (test aeys=9675) No growth in [address], BRAIN, WITHOUT [id number] 23:31:00PT started dialysis 2015FINAL REPORT Clinical history [...] Nuno MDReportVerified Date/Time: 01/06/2017 23:31:20 Reading Location: [facility] [id number] Ortho Consult Reading Room Electronically signed by: ERLIN NUNO M.D. on 11:31 PMPOCT-GLUCOSE [id number] 22:02:00 Test Item Value Reference Range Comments POC-GLUCOSE METER (BEAKER) 99 mg/dL 70-110 TESTED AT [facility] [address] [facility] (test pnbo=2435) [facility] [address] [id number] 18:44:00 Test Item Value Reference Range Comments PARTIAL THROMBOPLASTIN TIME (BEAKER) (test 94.9 seconds 22.5-36.0 zjtd=185) HEPATITIS A ANTIBODY, [id number] 18:03:00 Test Item Value Reference Range Comments HEPATITIS A IGG ANTIBODY (BEAKER) (test ffbj=4369) Reactive Nonreactive HIV-1 ANTIGEN WITH HIV-1/2 [id number] 17:58:00 Test Item Value Reference Range Comments HIV-1 ANTIGEN WITH HIV 1\\T\\2 ANTIBODY (2) Nonreactive Nonreactive (BEAKER) (test dgdy=4186) POCT-GLUCOSE [id number] 17:55:00 Test Item Value Reference Range Comments POC-GLUCOSE METER (BEAKER) 89 mg/dL 70-110 TESTED AT [facility] [address] (test jjho=2057) [facility] [address] ANG, TUNNELED DIALYSIS CATH [id number] 17:45:00PT started dialysis 03/2015Reason for exam:->needs intermediate HD access, please d/c [facility] after PC [...] Physician intra- service time was 20 minutes. Nutrition Representative: Richard. 7Th Grade Social Studies Teacher: Rolf. Approach: Right internal jugular vein Estimated [...] needle into the right atrium. A 4 [place] micropuncture sheath was placed. A subcutaneous tunnel was created in the right anterior chest wall by blunt dissection. A 19 cm 15.5 [place]ut Duraflow 2 catheter was brought through the [...] MDReport Verified Date/Time: 01/06/2017 17:45:51 Reading Location: [address] Ultrasound Reading Room [id number] 17:37:00 Test Item Value Reference Range Comments PARTIAL THROMBOPLASTIN TIME (BEAKER) (test > seconds 22.5-36.0 igue=246) U/S, RENAL, [id number] 17:29:00PT started dialysis 07/12/2015Reason for exam:->heart transplant [...] MDReport Verified Date/Time: 01/06/2017 17:29:12 Reading Location: [address] Ultrasound Reading Room TROPONIN [id number] 17:04:00 Test Item Value Reference Range Comments TROPONIN I (AKER) (test kcrx=026) 0.10 ng/mL 0.00-0.03 Troponin I (TnI) levels [...] failure, acidosis, acute neurological disease, and persistent tachyarrhythmia.[id number] 16:54:00 Test Item Value Reference Range Comments FERRITIN (MismiAKER) (test hbug=770) 216 ng/mL 5-275 VITAMIN D, [id number] 16:48:00 Test Item Value Reference Range Comments VITAMIN D 25-OH (BEAKER) (test zsbh=9531) 6.4 ng/mL 6.6-49.9 Effective 12/21/2016: Reference Range ChangeNew: 6.6-49.9 ng/mL Previous: 13.0 -47.8 ng/mLRecommended Vitamin D Target Range: 30.0-40.0 ng/mLT4, [id number] 16:43:00 Test Item Value Reference Range Comments FREE T4 (BEAKER) (test xjhg=927) 1.56 ng/dL 0.70-1.48 [id number] 16:43:00 Test Item Value Reference Range Comments THYROID STIMULATING HORMONE (BEAKER) (test 0.98 uIU/mL 0.35-4.94 emva=477) [id number] 16:22:00 Test Item Value Reference Range Comments TRANSFERRIN (BEAKER) (test cwiw=260) 122 mg/dL 174-382 [id number] 16:13:00 Test Item Value Reference Range Comments PREALBUMIN (BEAKER) (test oblo=240) 14 mg/dL 14-45 IRON, [id number] 16:13:00 Test Item Value Reference Range Comments IRON (BEAKER) (test opjv=560) 23 ug/dL 40-160 TROPONIN [id number] 15:31:00 Test Item Value Reference Range Comments TROPONIN I (BEAKER) (test rgtt=314) 0.12 ng/mL 0.00-0.03 Troponin I (TnI) levels [...] failure, acidosis, acute neurological disease, and persistent tachyarrhythmia.[id number] 15:30:00 Test Item Value Reference Range Comments CREATININE (BEAKER) (test 6.49 mg/dL 0.57-1.25 hgvu=328) EGFR (BEAKER) (test 8 mL/min/1.73 sq m ESTIMATED GFR IS NOT meuw=4427) ACCURATE CREATININE CLEARANCE IN PREDICTING GLOMERULAR FILTRATION RATE. ESTIMATED GFR IS NOT APPLICABLE FOR DIALYSIS PATIENTS. URIC [id number] 15:25:00 Test Item Value Reference Range Comments URIC ACID (BEAKER) (test nzml=194) 3.3 mg/dL 2.6-7.2 LIPID [id number] 15:25:00 Test Item Value Reference Range Comments TRIGLYCERIDES (BEAKER) (test ezqt=801) 57 mg/dL CHOLESTEROL (BEAKER) (test aipp=274) 131 mg/dL HDL CHOLESTEROL (BEAKER) (test sgyt=814) 51 mg/dL LDL CHOLESTEROL CALCULATED (BEAKER) (test 69 mg/dL twsl=872) Triglyceride Reference Range: Low Risk <150 Borderline 150- 199 High Risk 200-499 Very High Risk >=500Cholesterol Reference Range: Low Risk <200 Borderline 200-239 High Risk > 240HDL Cholesterol Reference Range: Low Risk >=60 High Risk <40LDL Cholesterol Reference Range: Optimal <100 Near Optimal 100-129 Borderline 130-159 High 160-189 Very High >=[id number] 15:25:00 Test Item Value Reference Range Comments AMYLASE (BEAKER) (test povm=703) 60 U/L 25-125 GAMMA GLUTAMYL TRANSFERASE (GGT)2017-01-06 15:25:00 Test Item Value Reference Range Comments GAMMA GLUTAMYL TRANSFERASE (BEAKER) (test xdun=486) 15 U/L 9-64 [id number] 15:25:00 Test Item Value Reference Range Comments LIPASE (BEAKER) (test iqdu=657) 46 U/L 8-78 RETICULOCYTE [id number] 15:07:00 Test Item Value Reference Range Comments RETICULOCYTE COUNT PCT (BEAKER) (test ukjc=458) 1.2 % 0.5-1.7 POCT-GLUCOSE [id number] 09:33:00 Test Item Value Reference Range Comments POC-GLUCOSE METER (BEAKER) 103 mg/dL 70-110 TESTED AT [address] (test xqri=9279) [facility] [address] POCT-GLUCOSE [id number] 06:37:00 Test Item Value Reference Range Comments POC-GLUCOSE METER (BEAKER) 108 mg/dL 70-110 TESTED AT [address] (test iqta=8703) [facility] [address] VANCOMYCIN LEVEL, [id number] 04:30:00 Test Item Value Reference Range Comments VANCOMYCIN RANDOM (BEAKER) (test jwpd=777) 37.6 ug/mL Reference Range: No NormalsTROPONIN [id number] 04:19:00 Test Item Value Reference Range Comments TROPONIN I (BEAKER) (test wugh=460) 0.11 ng/mL 0.00-0.03 Troponin I (TnI) levels [...] acute neurological disease, and persistent tachyarrhythmia.BASIC METABOLIC [id number] 04:12:00 Test Item Value Reference Range Comments SODIUM (BEAKER) (test 139 meq/L 136-145 twgo=152) POTASSIUM (BEAKER) (test 4.2 meq/L 3.5-5.1 edsi=109) CHLORIDE (BEAKER) (test 105 meq/L 98-107 gaqw=009) CO2 (BEAKER) (test 28 meq/L 22-29 jojq=149) BLOOD UREA NITROGEN 15 mg/dL 7-21 (BEAKER) (test wmky=725) CREATININE (BEAKER) (test 5.74 mg/dL 0.57-1.25 hxhe=550) GLUCOSE RANDOM (BEAKER) 85 mg/dL 70-105 (test obdd=117) CALCIUM (BEAKER) (test 8.2 mg/dL 8.4-10.2 zdpq=630) EGFR (BEAKER) (test 10 mL/min/1.73 sq m ESTIMATED GFR IS NOT mxxv=6295) ACCURATE CREATININE CLEARANCE IN PREDICTING GLOMERULAR FILTRATION RATE. ESTIMATED GFR IS NOT APPLICABLE FOR DIALYSIS PATIENTS. [id number] 04:11:00 Test Item Value Reference Range Comments MAGNESIUM (BEAKER) (test jxul=785) 1.7 mg/dL 1.6-2.6 [id number] 03:57:00 Test Item Value Reference Range Comments PARTIAL THROMBOPLASTIN TIME (BEAKER) (test 36.0 seconds 22.5-36.0 sdiy=457) Prior to initiating heparinCBC (HEMOGRAM ONLY)2017-01-06 03:49:00 Test Item Value Reference Range Comments WHITE BLOOD CELL COUNT (BEAKER) (test cfzu=066) 7.3 K/ L 3.5-10.5 RED BLOOD CELL COUNT (BEAKER) (test peaq=421) 2.81 M/ L 3.93-5.22 HEMOGLOBIN (BEAKER) (test vemo=035) 8.1 GM/DL 11.2-15.7 HEMATOCRIT (BEAKER) (test zjfs=543) 26.1 % 34.1-44.9 MEAN CORPUSCULAR VOLUME (BEAKER) (test ogmd=297) 92.9 fL 79.4-94.8 MEAN CORPUSCULAR HEMOGLOBIN (BEAKER) (test 28.8 pg 25.6-32.2 lsiu=742) MEAN CORPUSCULAR HEMOGLOBIN CONC (BEAKER) (test 31.0 GM/DL 32.2-35.5 uwid=421) RED CELL DISTRIBUTION WIDTH (BEAKER) (test 14.3 % 11.7-14.4 ierd=525) PLATELET COUNT (BEAKER) (test wbug=071) 150 K/CU MM 150-450 MEAN PLATELET VOLUME (BEAKER) (test vjud=790) 11.0 fL 9.4-12.3 NUCLEATED RED BLOOD CELLS (BEAKER) (test 0 /100 WBC 0-0 vcnl=708) TROPONIN [id number] 00:42:00 Test Item Value Reference Range Comments TROPONIN I (BEAKER) (test ntsv=185) 0.11 ng/mL 0.00-0.03 Troponin I (TnI) levels [...] acidosis, acute neurological disease, and persistent tachyarrhythmia.POCT-GLUCOSE [id number] 00:27:00 Test Item Value Reference Range Comments POC-GLUCOSE METER (BEAKER) 97 mg/dL 70-110 TESTED AT [facility] [address] [facility] (test cqon=6454) [facility] [address] [id number] 00:23:00 Test Item Value Reference Range Comments PARTIAL THROMBOPLASTIN TIME (BEAKER) (test 34.2 seconds 22.5-36.0 hgyr=972) [id number] 17:16:00 Test Item Value Reference Range Comments PARTIAL THROMBOPLASTIN TIME (BEAKER) (test 58.7 seconds 22.5-36.0 lopq=199) TISSUE [id number] 16:16:00Surgical Pathology Report Case: [id number] Authorizing Provider: Fabi Parekh MD Collected: 01/04/2017 1055 Ordering Location: [facility] Received: 01/04/2017 1314 PERIOPERATIVE SERVICES Pathologist: Judit Medel MD Specimen: Hernia, Hernia Sac HERNIA SAC, ABDOMINAL, INCISIONAL HERNIA, REPAIR: - FIBROADIPOSE TISSUE AND REACTIVE CHANGS WITH FOREIGN BODY GIANT CELLS, CONSISTENT WITH INCISIONAL HERNIA SAC Signing Pathologist Direct Phone Line: [phone] signed by Judit Medel MD on 01/05/2017 at 4:16 [id number] renal disease, incisional hernia sacHernia sacReceived fresh labeled "hernia", description "hernia sac" is an 8.3 x 7.3 x 1.0 cm, dark-red to corral-white, irregular, rubbery, wrinkled portion of fibromembranoussoft tissue. Sectioning reveals no discrete masses. Record Tabulating Clerk sections are submitted in cassette A1. DB/ew Performed.[id number] 14:43:00 Test Item Value Reference Range Comments PARTIAL THROMBOPLASTIN TIME (Airpowered) (test 162.1 seconds 22.5-36.0 rjqu=485) POCT-GLUCOSE [id number] 13:01:00 Test Item Value Reference Range Comments POC-GLUCOSE METER (Airpowered) 88 mg/dL 70-110 TESTED AT [address] (test rfex=9710) [place] [address] TROPONIN [id number] 12:59:00 Test Item Value Reference Range Comments TROPONIN I (MismiAKER) (test tixv=675) 0.13 ng/mL 0.00-0.03 Troponin I (TnI) levels [...] acidosis, acute neurological disease, and persistent tachyarrhythmia.SPIN/CONCENTRATION [id number] 12: 45:00 Test Item Value Reference Range Comments CONCENTRATION CHARGED (MismiAKER) (test omgk=6187) Done POCT-GLUCOSE [id number] 09:10:00 Test Item Value Reference Range Comments POC-GLUCOSE METER (Airpowered) 102 mg/dL 70-110 TESTED AT [address] (test bvtw=0802) [place] [address] CBC W/PLT COUNT & AUTO [id number] 08:49:00 Test Item Value Reference Range Comments WHITE BLOOD CELL COUNT (BEAKER) (test cvie=033) 8.1 K/ L 3.5-10.5 RED BLOOD CELL COUNT (BEAKER) (test pdcz=920) 2.94 M/ L 3.93-5.22 HEMOGLOBIN (BEAKER) (test erki=248) 8.5 GM/DL 11.2-15.7 HEMATOCRIT (BEAKER) (test jrfc=869) 26.9 % 34.1-44.9 MEAN CORPUSCULAR VOLUME (BEAKER) (test pxpa=438) 91.5 fL 79.4-94.8 MEAN CORPUSCULAR HEMOGLOBIN (BEAKER) (test 28.9 pg 25.6-32.2 ecbc=735) MEAN CORPUSCULAR HEMOGLOBIN CONC (BEAKER) (test 31.6 GM/DL 32.2-35.5 xjhn=693) RED CELL DISTRIBUTION WIDTH (BEAKER) (test 14.3 % 11.7-14.4 vkub=998) PLATELET COUNT (BEAKER) (test eswi=535) 158 K/CU MM 150-450 MEAN PLATELET VOLUME (BEAKER) (test fuko=361) 11.0 fL 9.4-12.3 NUCLEATED RED BLOOD CELLS (BEAKER) (test 0 /100 WBC 0-0 gnsy=851) NEUTROPHILS RELATIVE PERCENT (BEAKER) (test 71 % hmuh=128) LYMPHOCYTES RELATIVE PERCENT (BEAKER) (test 14 % hfac=103) MONOCYTES RELATIVE PERCENT (BEAKER) (test 14 % zfhl=064) EOSINOPHILS RELATIVE PERCENT (BEAKER) (test 1 % wkzt=704) BASOPHILS RELATIVE PERCENT (BEAKER) (test 0 % yvgw=904) NEUTROPHILS ABSOLUTE COUNT (BEAKER) (test 5.73 K/ L 1.56-6.13 lzlc=725) LYMPHOCYTES ABSOLUTE COUNT (BEAKER) (test 1.14 K/ L 1.18-3.74 nqvi=755) MONOCYTES ABSOLUTE COUNT (BEAKER) (test 1.11 K/ L 0.24-0.36 hbff=238) EOSINOPHILS ABSOLUTE COUNT (BEAKER) (test 0.10 K/ L 0.04-0.36 eunh=580) BASOPHILS ABSOLUTE COUNT (BEAKER) (test 0.02 K/ L 0.01-0.08 nveo=379) IMMATURE GRANULOCYTES-RELATIVE PERCENT (BEAKER) 1 % 0-1 (test bavf=1949) POCT-GLUCOSE [id number] 07:57:00 Test Item Value Reference Range Comments POC-GLUCOSE METER (BEAKER) 133 mg/dL 70-110 TESTED AT [facility] [address] [facility] (test jmup=9718) [place] [id number] BODY FLUID CULTURE + GRAM [id number] 07:44:00 Test Item Value Reference Range Comments CULTURE (BEAKER) (test hqjm=0004) No growth GRAM STAIN RESULT (BEAKER) (test <1+ WBCs pmga=8116) GRAM STAIN RESULT (BEAKER) (test No organisms seen bqso=22453) POCT-GLUCOSE [id number] 06:05:00 Test Item Value Reference Range Comments POC-GLUCOSE METER (BEAKER) 63 mg/dL 70-110 TESTED AT [address] (test qnxl=7346) [facility] [address] VANCOMYCIN LEVEL, [id number] 05:32:00 Test Item Value Reference Range Comments VANCOMYCIN RANDOM (BEAKER) (test hafu=945) 31.0 ug/mL Reference Range: No NormalsBASIC METABOLIC [id number] 05:24:00 Test Item Value Reference Range Comments SODIUM (BEAKER) (test 138 meq/L 136-145 zyrl=523) POTASSIUM (BEAKER) (test 5.1 meq/L 3.5-5.1 isfk=830) CHLORIDE (BEAKER) (test 105 meq/L 98-107 otte=270) CO2 (BEAKER) (test 27 meq/L 22-29 tesy=818) BLOOD UREA NITROGEN 33 mg/dL 7-21 (BEAKER) (test higq=646) CREATININE (BEAKER) (test 9.93 mg/dL 0.57-1.25 vstc=039) GLUCOSE RANDOM (BEAKER) 57 mg/dL 70-105 (test zpfp=071) CALCIUM (BEAKER) (test 8.7 mg/dL 8.4-10.2 noia=628) EGFR (BEAKER) (test 5 mL/min/1.73 sq m ESTIMATED GFR IS NOT ffqt=9594) ACCURATE CREATININE CLEARANCE IN PREDICTING GLOMERULAR FILTRATION RATE. ESTIMATED GFR IS NOT APPLICABLE FOR DIALYSIS PATIENTS. TROPONIN [id number] 05:23:00 Test Item Value Reference Range Comments TROPONIN I (BEAKER) (test uaor=071) 0.13 ng/mL 0.00-0.03 Troponin I (TnI) levels [...] failure, acidosis, acute neurological disease, and persistent tachyarrhythmia.[id number] 05:21:00 Test Item Value Reference Range Comments MAGNESIUM (BEAKER) (test huek=526) 1.7 mg/dL 1.6-2.6 [id number] 05:06:00 Test Item Value Reference Range Comments PARTIAL THROMBOPLASTIN TIME (BEAKER) (test 89.4 seconds 22.5-36.0 qzru=210) PROTHROMBIN TIME/[id number] 05:04:00 Test Item Value Reference Range Comments PROTIME (BEAKER) (test dlru=018) 14.6 seconds 11.7-14.7 INR (BEAKER) (test bxyj=441) 1.2 <=5.9 RECOMMENDED COUMADIN/WARFARIN INR THERAPY RANGESSTANDARD DOSE: 2.0 - 3.0 Includes: PROPHYLAXIS forvenous thrombosis, systemic embolization; TREATMENT for venous thrombosis and/or pulmonary embolus.HIGH RISK: Target INR is 2.5-3.5 for patients with mechanical heart valves.TROPONIN [id number] 17:14:00 Test Item Value Reference Range Comments TROPONIN I (BEAKER) (test qhnx=722) 0.16 ng/mL 0.00-0.03 Troponin I (TnI) levels [...] failure, acidosis, acute neurological disease, and persistent tachyarrhythmia.[id number] 16:55:00 Test Item Value Reference Range Comments GLUCOSE RANDOM (BEAKER) (test xdmj=062) 140 mg/dL 70-105 GLUCOSE-STAT [id number] 13:33:00 Test Item Value Reference Range Comments GLUCOSE RANDOM (BEAKER) (test alve=407) 101 mg/dL 70-110 POTASSIUM-STAT [id number] 13:33:00 Test Item Value Reference Range Comments POTASSIUM (BEAKER) (test bdvz=764) 4.6 meq/L 3.6-5.5 HGB/HCT (H&H) - STAT [id number] 13:33:00 Test Item Value Reference Range Comments HEMOGLOBIN (BEAKER) (test ghtb=991) 13.0 g/dL 12.0-15.0 HEMATOCRIT (BEAKER) (test cfre=649) 38.0 % 36.0-45.0 BODY FLUID CULTURE + GRAM [id number] 09:05:00 Test Item Value Reference Range Comments CULTURE (BEAKER) (test rtio=0395) No growth GRAM STAIN RESULT (BEAKER) (test <1+ WBCs qvlb=2117) GRAM STAIN RESULT (BEAKER) (test No organisms seen rnjq=52156) POCT-GLUCOSE [id number] 07:58:00 Test Item Value Reference Range Comments POC-GLUCOSE METER (BEAKER) 81 mg/dL 70-110 TESTED AT [facility] [address] [place] [address] (test rxxt=0080) [facility] [address] HCG, QUANTITATIVE, [id number] 07:23:00 Test Item Value Reference Range Comments GONADOTROPIN, CHORIONIC (HCG) QUANT (BEAKER) (test < mIU/mL 0-10 lakj=408) Non- Females: <10 mIU/mL Females: Gestation Age Reference Range(mIU/mL) 0.2-1 Week 5-50 1-2 Weeks 50-500 2-3 Weeks 100-5,000 3-4Weeks 500-10,000 4 -5 Weeks 1,000-50,000 5-6 Weeks 10,000-100,000 6-8 Weeks 15,000-200,000 2-3 Months 10,000-100,000TROPONIN [id number] 07:19 :00 Test Item Value Reference Range Comments TROPONIN I (BEAKER) (test gmdz=928) 0.17 ng/mL 0.00-0.03 Troponin I (TnI) levels [...] acute neurological disease, and persistent tachyarrhythmia.BASIC METABOLIC [id number] 07:19:00 Test Item Value Reference Range Comments SODIUM (BEAKER) (test 137 meq/L 136-145 zcts=827) POTASSIUM (BEAKER) (test 4.4 meq/L 3.5-5.1 vnfa=531) CHLORIDE (BEAKER) (test 103 meq/L 98-107 piwy=388) CO2 (BEAKER) (test 27 meq/L 22-29 wnwm=755) BLOOD UREA NITROGEN 26 mg/dL 7-21 (BEAKER) (test kddg=168) CREATININE (BEAKER) (test 8.02 mg/dL 0.57-1.25 tiap=040) GLUCOSE RANDOM (BEAKER) 74 mg/dL 70-105 (test rloo=499) CALCIUM (BEAKER) (test 8.3 mg/dL 8.4-10.2 vomk=460) EGFR (BEAKER) (test 7 mL/min/1.73 sq m ESTIMATED GFR IS NOT pckk=7610) ACCURATE CREATININE CLEARANCE IN PREDICTING GLOMERULAR FILTRATION RATE. ESTIMATED GFR IS NOT APPLICABLE FOR DIALYSIS PATIENTS. [id number] 07:18:00 Test Item Value Reference Range Comments MAGNESIUM (BEAKER) (test yyua=428) 1.7 mg/dL 1.6-2.6 [id number] 06:48:00 Test Item Value Reference Range Comments PROTIME (BEAKER) (test hhdq=066) 15.0 seconds 11.7-14.7 INR (BEAKER) (test tyei=157) 1.2 <=5.9 PARTIAL THROMBOPLASTIN TIME (BEAKER) (test 103.5 seconds 22.5-36.0 ejuu=478) RECOMMENDED COUMADIN/WARFARIN INR THERAPY RANGESSTANDARD DOSE: 2.0 - 3.0 Includes: PROPHYLAXIS forvenous thrombosis, systemic embolization; TREATMENT for venous thrombosis and/or pulmonary embolus.HIGH RISK: Target INR is 2.5-3.5 for patients with mechanical heart valves.CBC W/PLT COUNT & AUTO [id number] 06:44:00 Test Item Value Reference Range Comments WHITE BLOOD CELL COUNT (BEAKER) (test ociw=217) 6.8 K/ L 3.5-10.5 RED BLOOD CELL COUNT (BEAKER) (test bwxj=933) 2.94 M/ L 3.93-5.22 HEMOGLOBIN (BEAKER) (test mmlk=593) 8.3 GM/DL 11.2-15.7 HEMATOCRIT (BEAKER) (test szwr=666) 26.9 % 34.1-44.9 MEAN CORPUSCULAR VOLUME (BEAKER) (test zrcs=486) 91.5 fL 79.4-94.8 MEAN CORPUSCULAR HEMOGLOBIN (BEAKER) (test 28.2 pg 25.6-32.2 alki=623) MEAN CORPUSCULAR HEMOGLOBIN CONC (BEAKER) (test 30.9 GM/DL 32.2-35.5 exol=975) RED CELL DISTRIBUTION WIDTH (BEAKER) (test 14.1 % 11.7-14.4 qirj=301) PLATELET COUNT (BEAKER) (test fgpi=710) 148 K/CU MM 150-450 MEAN PLATELET VOLUME (BEAKER) (test rqox=548) 11.2 fL 9.4-12.3 NUCLEATED RED BLOOD CELLS (BEAKER) (test 0 /100 WBC 0-0 trhk=481) NEUTROPHILS RELATIVE PERCENT (BEAKER) (test 64 % llqn=404) LYMPHOCYTES RELATIVE PERCENT (BEAKER) (test 15 % tnzc=318) MONOCYTES RELATIVE PERCENT (BEAKER) (test 16 % texw=885) EOSINOPHILS RELATIVE PERCENT (BEAKER) (test 5 % symr=914) BASOPHILS RELATIVE PERCENT (BEAKER) (test 0 % cvga=726) NEUTROPHILS ABSOLUTE COUNT (BEAKER) (test 4.36 K/ L 1.56-6.13 xwml=710) LYMPHOCYTES ABSOLUTE COUNT (BEAKER) (test 1.05 K/ L 1.18-3.74 noqo=526) MONOCYTES ABSOLUTE COUNT (BEAKER) (test 1.06 K/ L 0.24-0.36 aose=780) EOSINOPHILS ABSOLUTE COUNT (BEAKER) (test 0.32 K/ L 0.04-0.36 zavu=074) BASOPHILS ABSOLUTE COUNT (BEAKER) (test 0.03 K/ L 0.01-0.08 lfhs=745) IMMATURE GRANULOCYTES-RELATIVE PERCENT (BEAKER) 0 % 0-1 (test rkqk=5143) POCT-GLUCOSE [id number] 01:01:00 Test Item Value Reference Range Comments POC-GLUCOSE METER (BEAKER) 96 mg/dL 70-110 TESTED AT [address] (test fzcp=3134) [place] [address] TROPONIN [id number] 00:46:00 Test Item Value Reference Range Comments TROPONIN I (BEAKER) (test bbdj=108) 0.16 ng/mL 0.00-0.03 Troponin I (TnI) levels [...] failure, acidosis, acute neurological disease, and persistent tachyarrhythmia.[id number] 00:21:00 Test Item Value Reference Range Comments PROTIME (BEAKER) (test kwib=128) 15.8 seconds 11.7-14.7 INR (BEAKER) (test tqta=598) 1.3 <=5.9 PARTIAL THROMBOPLASTIN TIME (BEAKER) (test 78.1 seconds 22.5-36.0 gkkx=550) RECOMMENDED COUMADIN/WARFARIN INR THERAPY RANGESSTANDARD DOSE: 2.0 - 3.0 Includes: PROPHYLAXIS forvenous thrombosis, systemic embolization; TREATMENT for venous thrombosis and/or pulmonary embolus.HIGH RISK: Target INR is 2.5-3.5 for patients with mechanical heart valves.POCT-GLUCOSE [id number] 21:58:00 Test Item Value Reference Range Comments POC-GLUCOSE METER (BEAKER) 142 mg/dL 70-110 TESTED AT [address] (test mwcf=9498) [facility] [address] VANCOMYCIN LEVEL, [id number] 20:19:00 Test Item Value Reference Range Comments VANCOMYCIN RANDOM (BEAKER) (test gkzm=551) 18.4 ug/mL Reference Range: No NormalsTROPONIN [id number] 18:36:00 Test Item Value Reference Range Comments TROPONIN I (BEAKER) (test iteb=794) 0.18 ng/mL 0.00-0.03 Troponin I (TnI) levels [...] acidosis, acute neurological disease, and persistent tachyarrhythmia.POCT-GLUCOSE [id number] 18:30:00 Test Item Value Reference Range Comments POC-GLUCOSE METER (BEAKER) 119 mg/dL 70-110 TESTED AT [address] (test kwge=1378) [place] [address] HEMOGLOBIN [id number] 18:21:00 Test Item Value Reference Range Comments HEMOGLOBIN A1C (BEAKER) (test kzcn=635) 6.3 % 4.3-6.1 POCT-GLUCOSE [id number] 18:00:00 Test Item Value Reference Range Comments POC-GLUCOSE METER (BEAKER) 57 mg/dL 70-110 TESTED AT [address] (test tivv=0417) [place] [address] [id number] 16:34:00 Test Item Value Reference Range Comments PARTIAL THROMBOPLASTIN TIME (BEAKER) (test 99.2 seconds 22.5-36.0 kjyb=991) [id number] 15:36:00 Test Item Value Reference Range Comments PARTIAL THROMBOPLASTIN TIME (BEAKER) (test 123.9 seconds 22.5-36.0 orkj=502) [id number] 13:38:00 Test Item Value Reference Range Comments PARTIAL THROMBOPLASTIN TIME (BEAKER) (test > seconds 22.5-36.0 mftu=576) TROPONIN [id number] 13:27:00 Test Item Value Reference Range Comments TROPONIN I (BEAKER) (test uvaq=590) 0.19 ng/mL 0.00-0.03 Troponin I (TnI) levels [...] acidosis, acute neurological disease, and persistent tachyarrhythmia.POCT-GLUCOSE [id number] 13:25:00 Test Item Value Reference Range Comments POC-GLUCOSE METER (BEAKER) 120 mg/dL 70-110 TESTED AT [address] (test zzkh=7469) [place] [address] POCT-GLUCOSE [id number] 09:50:00 Test Item Value Reference Range Comments POC-GLUCOSE METER (BEAKER) 85 mg/dL 70-110 TESTED AT [address] (test ilnj=4688) [place] [address] TROPONIN [id number] 08:31:00 Test Item Value Reference Range Comments TROPONIN I (BEAKER) (test xdgx=996) 0.20 ng/mL 0.00-0.03 Troponin I (TnI) levels [...] failure, acidosis, acute neurological disease, and persistent tachyarrhythmia.[id number] 03:35:00 Test Item Value Reference Range Comments PARTIAL THROMBOPLASTIN TIME (BEAKER) (test 39.1 seconds 22.5-36.0 oseg=020) BASIC METABOLIC [id number] 03:34:00 Test Item Value Reference Range Comments SODIUM (BEAKER) (test 134 meq/L 136-145 fovf=858) POTASSIUM (BEAKER) (test 5.0 meq/L 3.5-5.1 ngwd=600) CHLORIDE (BEAKER) (test 100 meq/L 98-107 hmbq=860) CO2 (BEAKER) (test 24 meq/L 22-29 jqxn=105) BLOOD UREA NITROGEN 50 mg/dL 7-21 (BEAKER) (test jedk=931) CREATININE (BEAKER) (test 11.51 mg/dL 0.57-1.25 afyv=914) GLUCOSE RANDOM (BEAKER) 105 mg/dL 70-105 (test wwww=141) CALCIUM (BEAKER) (test 8.0 mg/dL 8.4-10.2 isbb=914) EGFR (BEAKER) (test 4 mL/min/1.73 sq m ESTIMATED GFR IS NOT xmjy=2392) ACCURATE CREATININE CLEARANCE IN PREDICTING GLOMERULAR FILTRATION RATE. ESTIMATED GFR IS NOT APPLICABLE FOR DIALYSIS PATIENTS. [id number] 03:32:00 Test Item Value Reference Range Comments MAGNESIUM (BEAKER) (test woyk=747) 1.5 mg/dL 1.6-2.6 CBC W/PLT COUNT & AUTO [id number] 03:17:00 Test Item Value Reference Range Comments WHITE BLOOD CELL COUNT (BEAKER) (test anal=171) 6.6 K/ L 3.5-10.5 RED BLOOD CELL COUNT (BEAKER) (test rxqm=735) 3.10 M/ L 3.93-5.22 HEMOGLOBIN (BEAKER) (test xopi=024) 8.8 GM/DL 11.2-15.7 HEMATOCRIT (BEAKER) (test nkcg=233) 28.3 % 34.1-44.9 MEAN CORPUSCULAR VOLUME (BEAKER) (test zhmb=039) 91.3 fL 79.4-94.8 MEAN CORPUSCULAR HEMOGLOBIN (BEAKER) (test 28.4 pg 25.6-32.2 xoys=709) MEAN CORPUSCULAR HEMOGLOBIN CONC (BEAKER) (test 31.1 GM/DL 32.2-35.5 jgew=706) RED CELL DISTRIBUTION WIDTH (BEAKER) (test 14.1 % 11.7-14.4 ssty=155) PLATELET COUNT (BEAKER) (test ejdj=785) 150 K/CU MM 150-450 MEAN PLATELET VOLUME (BEAKER) (test ynjd=681) 10.6 fL 9.4-12.3 NUCLEATED RED BLOOD CELLS (BEAKER) (test 0 /100 WBC 0-0 auof=105) NEUTROPHILS RELATIVE PERCENT (BEAKER) (test 74 % dqmt=072) LYMPHOCYTES RELATIVE PERCENT (BEAKER) (test 11 % qsxg=346) MONOCYTES RELATIVE PERCENT (BEAKER) (test 10 % tuwn=310) EOSINOPHILS RELATIVE PERCENT (BEAKER) (test 4 % ktce=323) BASOPHILS RELATIVE PERCENT (BEAKER) (test 1 % srsj=079) NEUTROPHILS ABSOLUTE COUNT (BEAKER) (test 4.91 K/ L 1.56-6.13 zizn=571) LYMPHOCYTES ABSOLUTE COUNT (BEAKER) (test 0.74 K/ L 1.18-3.74 mwke=219) MONOCYTES ABSOLUTE COUNT (BEAKER) (test 0.65 K/ L 0.24-0.36 avew=516) EOSINOPHILS ABSOLUTE COUNT (BEAKER) (test 0.29 K/ L 0.04-0.36 csku=614) BASOPHILS ABSOLUTE COUNT (BEAKER) (test 0.03 K/ L 0.01-0.08 ramn=777) IMMATURE GRANULOCYTES-RELATIVE PERCENT (BEAKER) 0 % 0-1 (test sraa=4192) TROPONIN [id number] 01:22:00 Test Item Value Reference Range Comments TROPONIN I (BEAKER) (test mnxi=135) 0.19 ng/mL 0.00-0.03 Troponin I (TnI) levels [...] acidosis, acute neurological disease, and persistent tachyarrhythmia.POCT-GLUCOSE [id number] 00:49:00 Test Item Value Reference Range Comments POC-GLUCOSE METER (BEAKER) 74 mg/dL 70-110 TESTED AT [facility] [address] [place] [address] (test tvvg=6015) [facility] [address] TROPONIN [id number] 18:57:00 Test Item Value Reference Range Comments TROPONIN I (BEAKER) (test xygj=709) 0.17 ng/mL 0.00-0.03 Troponin I (TnI) levels [...] acute neurological disease, and persistent tachyarrhythmia.VANCOMYCIN LEVEL, [id number] 18:52 :00 Test Item Value Reference Range Comments VANCOMYCIN RANDOM (BEAKER) (test gjuy=395) 29.2 ug/mL Reference Range: No NormalsLACTATE DEHYDROGENASE (LDH)2017-01-02 18:46:00 Test Item Value Reference Range Comments LACTATE DEHYDROGENASE (BEAKER) (test kxqa=932) 300 U/L 125-220 BODY FLUID CELL COUNT WITH [id number] 18:36:00 Test Item Value Reference Range Comments APPEARANCE FLUID (BEAKER) (test gnqe=639) Slightly Hazy Clear COLOR FLUID (BEAKER) (test ipew=135) Yellow Colorless, Straw RBC FLUID (BEAKER) (test rnyy=124) 690 /cu mm <=1 ADJUSTED WBC FLUID (BEAKER) (test dudi=7980) 68 /cu mm <=5 LINING CELLS (BEAKER) (test bwbr=6096) 2 /cu mm <=1 NEUTROPHILS FLUID (BEAKER) (test rvrn=3182) 2 % LYMPHS FLUID (BEAKER) (test eknc=420) 9 % MONO/MACROPHAGE FLUID (BEAKER) (test 89 % bqbk=863) EOSINOPHILS FLUID (BEAKER) (test fktu=331) 0 % BASO FLUID (BEAKER) (test wkce=877) 0 % CONTAINER BODY FLUID (BEAKER) (test EDTA Tube niee=7750) RAD, CHEST, 1 VIEW, NON [id number] 18:36:00PT started dialysis 07/12/2015 Reason for exam:->s/p thoraFINAL REPORT Comparison: TECHNIQUE: Single view of the chest FINDINGS: Right pleural effusion has decreased. No pneumothorax bilaterally. No other significant change. Signed : Turner Grierort Verified Date/Time: 01/02/2017 18:36:30 Reading Location : [facility] [id number] Consult Reading Room PH, BODY [id number] 18:22:00 Test Item Value Reference Range Comments PH, BODY FLUID (BEAKER) (test temh=0911) 7.80 POCT-GLUCOSE [id number] 18:19:00 Test Item Value Reference Range Comments POC-GLUCOSE METER (BEAKER) 91 mg/dL 70-110 TESTED AT [facility] [address] [facility] (test wzro=7112) [facility] [address] LACTATE DEHYDROGENASE (LDH), BODY [id number] 18:04:00 Test Item Value Reference Range Comments LACTATE DEHYDROGENASE FLUID (BEAKER) 123 U/L Light's criteria identifies (test uxtn=334) effusions if one or more are pre Absence of reference range indicates that normals have not been defined.Assay performance has not been validated for this type of specimen.PROTEIN, BODY [id number] 18:04:00 Test Item Value Reference Range Comments PROTEIN FLUID (BEAKER) (test 2.1 g/dL Light's criteria identifies rsmg=265) effusions if one or more are pre Absence of reference range indicates that normals have not been defined.Assay performance has not been validated for this type of specimen.HEPATITIS B [id number] 13:51:00 Test Item Value Reference Range Comments HEPATITIS B CORE TOTAL ANTIBODY (BEAKER) (test Nonreactive Nonreactive llih=993) HEPATITIS B SURFACE ANTIBODY (BEAKER) (test 29.1 mIU/mL <8.0 sqmc=457) HEPATITIS B SURFACE ANTIGEN (2) (BEAKER) (test Nonreactive Nonreactive ijjg=3288) CREATINE KINASE (CK), TOTAL AND [id number] 13:09:00 Test Item Value Reference Range Comments CREATINE KINASE TOTAL (BEAKER) (test fior=487) 285 U/L 29-200 CREATINE KINASE-MB (BEAKER) (test woil=939) 15.2 ng/mL 0.0-6.6 CREATINE KINASE-MB INDEX (BEAKER) (test qslx=318) 5.3 % CK-MB Reference Range:<6.7 Normal6.7-10.0 Borderline>10.0 AbnormalTROPONIN [id number] 13:09:00 Test Item Value Reference Range Comments TROPONIN I (BEAKER) (test ruti=456) 0.18 ng/mL 0.00-0.03 Troponin I (TnI) levels [...] acidosis, acute neurological disease, and persistent tachyarrhythmia.POCT-GLUCOSE [id number] 12:25:00 Test Item Value Reference Range Comments POC-GLUCOSE METER (BEAKER) 95 mg/dL 70-110 TESTED AT [address] (test pcoq=9269) [place] [address] POCT-GLUCOSE [id number] 11:56:00 Test Item Value Reference Range Comments POC-GLUCOSE METER (BEAKER) 65 mg/dL 70-110 Notified MILA IGLESIAS/TESTED AT [facility] (test drkh=2117) [address] [place], [place] [id number] BASIC METABOLIC [id number] 06:05:00 Test Item Value Reference Range Comments SODIUM (BEAKER) (test 133 meq/L 136-145 uwfe=751) POTASSIUM (BEAKER) (test 4.5 meq/L 3.5-5.1 jkis=960) CHLORIDE (BEAKER) (test 98 meq/L 98-107 hltz=699) CO2 (BEAKER) (test 27 meq/L 22-29 jcqj=831) BLOOD UREA NITROGEN 48 mg/dL 7-21 (BEAKER) (test hxgb=208) CREATININE (BEAKER) (test 10.70 mg/dL 0.57-1.25 whrx=626) GLUCOSE RANDOM (BEAKER) 77 mg/dL 70-105 (test ppuv=545) CALCIUM (BEAKER) (test 8.7 mg/dL 8.4-10.2 wsci=292) EGFR (BEAKER) (test 5 mL/min/1.73 sq m ESTIMATED GFR IS NOT pfdv=4962) ACCURATE CREATININE CLEARANCE IN PREDICTING GLOMERULAR FILTRATION RATE. ESTIMATED GFR IS NOT APPLICABLE FOR DIALYSIS PATIENTS. TROPONIN [id number] 06:04:00 Test Item Value Reference Range Comments TROPONIN I (BEAKER) (test pykn=437) 0.23 ng/mL 0.00-0.03 Troponin I (TnI) levels [...] failure, acidosis, acute neurological disease, and persistent tachyarrhythmia.[id number] 06:03:00 Test Item Value Reference Range Comments MAGNESIUM (BEAKER) (test qwgy=188) 1.9 mg/dL 1.6-2.6 CBC W/PLT COUNT & AUTO [id number] 05:59:00 Test Item Value Reference Range Comments WHITE BLOOD CELL COUNT (BEAKER) (test kmwm=483) 7.9 K/ L 3.5-10.5 RED BLOOD CELL COUNT (BEAKER) (test kudz=841) 3.72 M/ L 3.93-5.22 HEMOGLOBIN (BEAKER) (test qifn=682) 10.5 GM/DL 11.2-15.7 HEMATOCRIT (BEAKER) (test llmr=406) 33.7 % 34.1-44.9 MEAN CORPUSCULAR VOLUME (BEAKER) (test pkii=194) 90.6 fL 79.4-94.8 MEAN CORPUSCULAR HEMOGLOBIN (BEAKER) (test 28.2 pg 25.6-32.2 cvtx=597) MEAN CORPUSCULAR HEMOGLOBIN CONC (BEAKER) (test 31.2 GM/DL 32.2-35.5 eavk=949) RED CELL DISTRIBUTION WIDTH (BEAKER) (test 14.4 % 11.7-14.4 zivd=667) PLATELET COUNT (BEAKER) (test qbez=810) 160 K/CU MM 150-450 MEAN PLATELET VOLUME (BEAKER) (test rdgd=307) 10.3 fL 9.4-12.3 NUCLEATED RED BLOOD CELLS (BEAKER) (test 0 /100 WBC 0-0 sqth=140) NEUTROPHILS RELATIVE PERCENT (BEAKER) (test 80 % ixqv=025) LYMPHOCYTES RELATIVE PERCENT (BEAKER) (test 8 % xxtl=498) MONOCYTES RELATIVE PERCENT (BEAKER) (test 9 % aaal=466) EOSINOPHILS RELATIVE PERCENT (BEAKER) (test 2 % jevl=224) BASOPHILS RELATIVE PERCENT (BEAKER) (test 1 % xbld=349) NEUTROPHILS ABSOLUTE COUNT (BEAKER) (test 6.31 K/ L 1.56-6.13 pkew=478) LYMPHOCYTES ABSOLUTE COUNT (BEAKER) (test 0.62 K/ L 1.18-3.74 raen=894) MONOCYTES ABSOLUTE COUNT (BEAKER) (test 0.67 K/ L 0.24-0.36 spxv=936) EOSINOPHILS ABSOLUTE COUNT (BEAKER) (test 0.18 K/ L 0.04-0.36 ifmr=748) BASOPHILS ABSOLUTE COUNT (BEAKER) (test 0.04 K/ L 0.01-0.08 wnvk=170) IMMATURE GRANULOCYTES-RELATIVE PERCENT (BEAKER) 0 % 0-1 (test qmpc=0187) TROPONIN [id number] 01:42:00 Test Item Value Reference Range Comments TROPONIN I (BEAKER) (test lndk=406) 0.23 ng/mL 0.00-0.03 Troponin I (TnI) levels [...] acute neurological disease, and persistent tachyarrhythmia.BASIC METABOLIC [id number] 01:37:00 Test Item Value Reference Range Comments SODIUM (BEAKER) (test 136 meq/L 136-145 cpya=544) POTASSIUM (BEAKER) (test 5.6 meq/L 3.5-5.1 zotq=156) CHLORIDE (BEAKER) (test 100 meq/L 98-107 dtlf=522) CO2 (BEAKER) (test 24 meq/L 22-29 igqn=140) BLOOD UREA NITROGEN 66 mg/dL 7-21 (BEAKER) (test svmp=311) CREATININE (BEAKER) (test 15.28 mg/dL 0.57-1.25 pmrl=610) GLUCOSE RANDOM (BEAKER) 70 mg/dL 70-105 (test clcx=019) CALCIUM (BEAKER) (test 8.4 mg/dL 8.4-10.2 gfhp=732) EGFR (BEAKER) (test 3 mL/min/1.73 sq m ESTIMATED GFR IS NOT quwn=5717) ACCURATE CREATININE CLEARANCE IN PREDICTING GLOMERULAR FILTRATION RATE. ESTIMATED GFR IS NOT APPLICABLE FOR DIALYSIS PATIENTS. [id number] 01:30:00 Test Item Value Reference Range Comments MAGNESIUM (BEAKER) (test psgz=461) 1.5 mg/dL 1.6-2.6 POCT-GLUCOSE [id number] 00:03:00 Test Item Value Reference Range Comments POC-GLUCOSE METER (BEAKER) 76 mg/dL 70-110 TESTED AT [facility] [address] [facility] (test wuvk=0993) [facility] [address] POCT-GLUCOSE [id number] 22:26:00 Test Item Value Reference Range Comments POC-GLUCOSE METER (BEAKER) 60 mg/dL 70-110 TESTED AT [facility] [address] [facility] (test jclb=7429) [facility] [address] TROPONIN [id number] 21:46:00 Test Item Value Reference Range Comments TROPONIN I (BEAKER) (test azqw=120) 0.23 ng/mL 0.00-0.03 Troponin I (TnI) levels [...] acute neurological disease, and persistent tachyarrhythmia.BASIC METABOLIC [id number] 21:38:00 Test Item Value Reference Range Comments SODIUM (BEAKER) (test 135 meq/L 136-145 npik=917) POTASSIUM (BEAKER) (test 6.0 meq/L 3.5-5.1 zmfs=043) CHLORIDE (BEAKER) (test 97 meq/L 98-107 gizb=459) CO2 (BEAKER) (test 26 meq/L 22-29 gyor=727) BLOOD UREA NITROGEN 78 mg/dL 7-21 (BEAKER) (test kear=591) CREATININE (BEAKER) (test 17.30 mg/dL 0.57-1.25 qors=548) GLUCOSE RANDOM (BEAKER) 66 mg/dL 70-105 (test qjnw=030) CALCIUM (BEAKER) (test 8.5 mg/dL 8.4-10.2 jjjb=737) EGFR (BEAKER) (test 3 mL/min/1.73 sq m ESTIMATED GFR IS NOT mqmt=2644) ACCURATE CREATININE CLEARANCE IN PREDICTING GLOMERULAR FILTRATION RATE. ESTIMATED GFR IS NOT APPLICABLE FOR DIALYSIS PATIENTS. [id number] 21:35:00 Test Item Value Reference Range Comments MAGNESIUM (BEAKER) (test rhvq=891) 1.6 mg/dL 1.6-2.6 [id number] 21:34:00 Test Item Value Reference Range Comments PHOSPHORUS (BEAKER) (test dcqg=697) 7.7 mg/dL 2.3-4.7 RAD, CHEST, 1 VIEW, NON [id number] 21:30:00PT started dialysis 2015Reason for exam:->Line placementShould [...] Verified Date/Time: 01/01/2017 21:30: 48 Reading Location: [place] [address]Y CT Body Reading Room BODY FLUID CELL COUNT WITH [id number] 20:13:00 Test Item Value Reference Range Comments APPEARANCE FLUID (BEAKER) (test jlpy=002) Cloudy Clear COLOR FLUID (BEAKER) (test izzo=173) Straw Colorless, Straw RBC FLUID (BEAKER) (test jznk=825) 2071 /cu mm <=1 ADJUSTED WBC FLUID (BEAKER) (test qccm=2513) 156 /cu mm <=5 LINING CELLS (BEAKER) (test wovh=9101) 2 /cu mm <=1 NEUTROPHILS FLUID (BEAKER) (test xfjt=8526) 3 % LYMPHS FLUID (BEAKER) (test zqny=852) 42 % MONO/MACROPHAGE FLUID (BEAKER) (test ctto=778) 55 % EOSINOPHILS FLUID (BEAKER) (test dwhb=057) 0 % BASO FLUID (BEAKER) (test aijv=120) 0 % CONTAINER BODY FLUID (BEAKER) (test dgqk=4846) EDTA Tube COMPREHENSIVE METABOLIC [id number] 19:19:00 Test Item Value Reference Range Comments TOTAL PROTEIN (BEAKER) 7.3 gm/dL 6.0-8.3 Specimen slightly (test vgvt=859) hemolyzed ALBUMIN (BEAKER) (test 2.4 g/dL 3.5-5.0 Specimen slightly geiu=3294) hemolyzed ALKALINE PHOSPHATASE 74 U/L 40-150 (BEAKER) (test yfmf=239) BILIRUBIN TOTAL (BEAKER) 0.5 mg/dL 0.2-1.2 Specimen slightly (test zvjd=111) hemolyzed SODIUM (BEAKER) (test 135 meq/L 136-145 jtmv=027) POTASSIUM (BEAKER) (test 5.7 meq/L 3.5-5.1 Specimen slightly fmdz=586) hemolyzed CHLORIDE (BEAKER) (test 97 meq/L 98-107 vlsa=480) CO2 (BEAKER) (test 26 meq/L 22-29 nrjh=769) BLOOD UREA NITROGEN 72 mg/dL 7-21 (BEAKER) (test yutd=549) CREATININE (BEAKER) (test 17.18 mg/dL 0.57-1.25 Specimen slightly akfe=975) hemolyzed GLUCOSE RANDOM (BEAKER) 70 mg/dL 70-105 (test tics=207) CALCIUM (BEAKER) (test 8.8 mg/dL 8.4-10.2 pfvn=507) AST (SGOT) (BEAKER) (test 37 U/L 5-34 Specimen slightly mgbp=492) hemolyzed ALT (SGPT) (BEAKER) (test 30 U/L 6-55 Specimen slightly nruf=643) hemolyzed EGFR (BEAKER) (test 3 mL/min/1.73 sq m ESTIMATED GFR IS NOT zsyu=7969) ACCURATE CREATININE CLEARANCE IN PREDICTING GLOMERULAR FILTRATION RATE. ESTIMATED GFR IS NOT APPLICABLE FOR DIALYSIS PATIENTS. RAD, CHEST, 1 VIEW, NON [id number] 18:48:00PT started dialysis 07/12/2015 Reason for exam:->s/p left thoracentesis Should this be performed at the bedside?->YesFINAL REPORT Comparison: 01/01/2017 TECHNIQUE: Single view of the chest FINDINGS: Left pleural effusion has decreased. No pneumothorax bilaterally. Interval placement of a right internal jugular catheter. Tip projects in the mid SVC. No other gross change. Signed: Turner Grier MDReport Verified Date/Time: 01/01/2017 18:48:26 Reading Location: [address] Transitional Reading Room POCT-GLUCOSE [id number] 18:23:00 Test Item Value Reference Range Comments POC-GLUCOSE METER (BEAKER) 79 mg/dL 70-110 TESTED AT [address] (test ofdf=0838) [place] [address] [id number] 18:09:00 Test Item Value Reference Range Comments AMMONIA (BEAKER) (test 9 mol/L 18-72 Specimen markedly hemolyzed lcyz=014) [id number] 18:08:00 Test Item Value Reference Range Comments MAGNESIUM (BEAKER) (test 2.8 mg/dL 1.6-2.6 Specimen markedly hemolyzed yatd=863) [id number] 18:08:00 Test Item Value Reference Range Comments PHOSPHORUS (BEAKER) (test 8.1 mg/dL 2.3-4.7 Specimen markedly hemolyzed elys=424) POCT-GLUCOSE [id number] 18:07:00 Test Item Value Reference Range Comments POC-GLUCOSE METER (BEAKER) 81 mg/dL 70-110 TESTED AT [address] (test wasn=0578) [place] [address] LACTIC ACID, ARTERIAL, WHOLE [id number] 17:14:00 Test Item Value Reference Range Comments LACTATE BLOOD ARTERIAL (2) 0.9 mmol/L 0.5-2.2 Specimen slightly hemolyzed (BEAKER) (test gyok=5373) Effective 07/15/2015: Units/Reference Range ChangeNew: 0.5-2.2 mmol/L Previous: 5 -20 mg/[id number] 17:12:00 Test Item Value Reference Range Comments PROCALCITONIN (BEAKER) (test sasp=3022) 0.72 ng/mL <0.05 SEPSIS RISK (ng/mL)Low: 0.05-0.50Intermediate: 0.51-2.00High: & gt;=2.01TROPONIN [id number] 16:56:00 Test Item Value Reference Range Comments TROPONIN I (BEAKER) (test xcbj=943) 0.25 ng/mL 0.00-0.03 Troponin I (TnI) levels [...] and persistent tachyarrhythmia.CREATINE KINASE (CK), TOTAL AND [id number] 16:52:00 Test Item Value Reference Range Comments CREATINE KINASE TOTAL (BEAKER) (test xwhz=612) 662 U/L 29-200 CREATINE KINASE-MB (BEAKER) (test ojjz=821) 17.6 ng/mL 0.0-6.6 CREATINE KINASE-MB INDEX (BEAKER) (test kbwb=044) 2.7 % CK-MB Reference Range:<6.7 Normal6.7-10.0 Borderline>10.0 AbnormalB-TYPE NATRIURETIC FACTOR (BNP)2017-01-01 16:52:00 Test Item Value Reference Range Comments B-TYPE NATRIURETIC PEPTIDE (BEAKER) (test 2749 pg/mL 0-100 wvwp=581) BLOOD GAS, [id number] 16:50:00 Test Item Value Reference Range Comments PH ARTERIAL (BEAKER) (test dvwy=110) 7.40 7.35-7.45 PCO2 ARTERIAL (BEAKER) (test luzd=825) 48 mmHg 35-45 PO2 ARTERIAL (BEAKER) (test mzcb=482) 80 mmHg 80-90 O2 SATURATION ARTERIAL (BEAKER) (test phqj=206) 96.0 % 96.0-97.0 HCO3 ARTERIAL (BEAKER) (test vxpd=060) 29 mmol/L 21-29 BASE EXCESS ARTERIAL (BEAKER) (test csct=394) 3.6 mmol/L -2.0-3.0 PATIENT TEMPERATURE (BEAKER) (test zhzx=4061) 36.5 C FIO2 (BEAKER) (test dgcp=1928) 21.0 % [id number] 16:46:00 Test Item Value Reference Range Comments PHOSPHORUS (BEAKER) (test 7.9 mg/dL 2.3-4.7 Specimen markedly hemolyzed agax=537) [id number] 16:46:00 Test Item Value Reference Range Comments LIPASE (BEAKER) (test nlrg=024) 38 U/L 8-78 CALCIUM, [id number] 16:46:00 Test Item Value Reference Range Comments CALCIUM IONIZED (BEAKER) (test wwdp=126) 1.00 mmol/L 1.12-1.27 PH, BLOOD (BEAKER) (test yvob=3757) 7.36 PROTHROMBIN TIME/[id number] 16:43:00 Test Item Value Reference Range Comments PROTIME (BEAKER) (test shvh=437) 16.2 seconds 11.7-14.7 INR (BEAKER) (test dilf=039) 1.3 <=5.9 RECOMMENDED COUMADIN/WARFARIN INR THERAPY RANGESSTANDARD DOSE: 2.0 - 3.0 Includes: PROPHYLAXIS forvenous thrombosis, systemic embolization; TREATMENT for venous thrombosis and/or pulmonary embolus.HIGH RISK: Target INR is 2.5-3.5 for patients with mechanical heart valves.CBC W/PLT COUNT & AUTO [id number] 16:30:00 Test Item Value Reference Range Comments WHITE BLOOD CELL COUNT (BEAKER) (test fzdo=924) 6.9 K/ L 3.5-10.5 RED BLOOD CELL COUNT (BEAKER) (test zugu=040) 3.41 M/ L 3.93-5.22 HEMOGLOBIN (BEAKER) (test tzdn=560) 9.9 GM/DL 11.2-15.7 HEMATOCRIT (BEAKER) (test ryrt=267) 30.7 % 34.1-44.9 MEAN CORPUSCULAR VOLUME (BEAKER) (test zjei=999) 90.0 fL 79.4-94.8 MEAN CORPUSCULAR HEMOGLOBIN (BEAKER) (test 29.0 pg 25.6-32.2 tdza=257) MEAN CORPUSCULAR HEMOGLOBIN CONC (BEAKER) (test 32.2 GM/DL 32.2-35.5 exbk=447) RED CELL DISTRIBUTION WIDTH (BEAKER) (test 14.6 % 11.7-14.4 ehvp=931) PLATELET COUNT (BEAKER) (test qaxk=530) 235 K/CU MM 150-450 MEAN PLATELET VOLUME (BEAKER) (test rvpf=141) 11.2 fL 9.4-12.3 NUCLEATED RED BLOOD CELLS (BEAKER) (test 0 /100 WBC 0-0 uebu=634) NEUTROPHILS RELATIVE PERCENT (BEAKER) (test 76 % mtlg=509) LYMPHOCYTES RELATIVE PERCENT (BEAKER) (test 12 % asss=606) MONOCYTES RELATIVE PERCENT (BEAKER) (test 10 % ffiy=629) EOSINOPHILS RELATIVE PERCENT (BEAKER) (test 1 % obqn=945) BASOPHILS RELATIVE PERCENT (BEAKER) (test 0 % skbr=935) NEUTROPHILS ABSOLUTE COUNT (BEAKER) (test 5.23 K/ L 1.56-6.13 rxwe=797) LYMPHOCYTES ABSOLUTE COUNT (BEAKER) (test 0.86 K/ L 1.18-3.74 haox=773) MONOCYTES ABSOLUTE COUNT (BEAKER) (test 0.68 K/ L 0.24-0.36 mblu=727) EOSINOPHILS ABSOLUTE COUNT (BEAKER) (test 0.10 K/ L 0.04-0.36 glgf=671) BASOPHILS ABSOLUTE COUNT (BEAKER) (test 0.02 K/ L 0.01-0.08 rovs=764) IMMATURE GRANULOCYTES-RELATIVE PERCENT (BEAKER) 0 % 0-1 (test zgzp=8554) RAD, CHEST, 1 VIEW, NON [id number] 15:22:00PT started dialysis 2015Post-intubationReason for exam:->sobShould [facility]?->YesFINAL REPORT Comparison: 06/07/2016 TECHNIQUE: Single view of the chest FINDINGS: There is a moderate to large left pleural effusion and moderate right pleural effusion with nonspecific adjacent airspace disease. Cardiac silhouette is obscured. No gross pneumothorax. No acute skeletal abnormality. Signed: Turner Griereport Verified Date/Time: 15:22:20 Reading Location: [address] Transitional Reading Room BODY FLUID CULTURE + GRAM [id number] 11:17:00 Test Item Value Reference Range Comments CULTURE (BEAKER) (test ispv=7833) No growth GRAM STAIN RESULT (BEAKER) (test <1+ WBCs xktj=8021) GRAM STAIN RESULT (BEAKER) (test No organisms seen fybv=37152) [id number] 15:47:00Medical Cytology Report Case: [id number] Authorizing Provider: Verena Carrero MD Collected: 12/12/2016 1540 Ordering Location: [facility] Laboratory Received: 12/13/2016 1002 Pathologist: Gokul Hood MD Specimen: Pleural, Right RIGHT PLEURAL FLUID (CYTOSPINS): - NEGATIVE FOR MALIGNANT CELLS Signing Pathologist Direct Phone Line: [phone] signed by Gokul Hood MD on 12/13/2016 at 3:47 PMReactive mesothelialcells are noted.[id number] pleural effusion; CHFRIGHT PLEURAL FLUID4 cytospins prepared from 200 ml yellow fluidCollected: [id number]: [id number] [facility], Departmentof Pathology, [address] [place] [address], [facility], [facility] of [facility], [address] [place] [address] , WKJCGRUJ GRAVITY, BODY [id number] 15:33:00 Test Item Value Reference Range Comments SP GRAVITY MISCELLANEOUS (BEAKER) (test gzbh=476) 1.019 Reference Range: No NormalsBODY FLUID [id number] 11:49:00 Test Item Value Reference Range Comments CRYSTALS, BODY FLUID (BEAKER) No crystals seen. (test ytyd=8449) [id number] (BEAKER) Anne Yen MD (electronic (test tmsx=3311) signature) PH, BODY [id number] 00:24:00 Test Item Value Reference Range Comments PH, BODY FLUID (BEAKER) (test dila=7540) 7.90 BODY FLUID CELL COUNT WITH [id number] 19:53:00 Test Item Value Reference Range Comments APPEARANCE FLUID (BEAKER) (test jqoq=639) Clear Clear COLOR FLUID (BEAKER) (test fctb=744) Straw Colorless, Straw RBC FLUID (BEAKER) (test pfzh=383) 1 /cu mm <=1 ADJUSTED WBC FLUID (BEAKER) (test qskq=6498) 21 /cu mm <=5 LINING CELLS (BEAKER) (test guxs=5026) 0 /cu mm <=1 NEUTROPHILS FLUID (BEAKER) (test uilz=9019) 0 % LYMPHS FLUID (BEAKER) (test qqxp=643) 8 % MONO/MACROPHAGE FLUID (BEAKER) (test citp=458) 92 % EOSINOPHILS FLUID (BEAKER) (test lzqm=459) 0 % BASO FLUID (BEAKER) (test puxq=361) 0 % CONTAINER BODY FLUID (BEAKER) (test fukh=6634) EDTA Tube ALBUMIN, BODY [id number] 19:31:00 Test Item Value Reference Range Comments ALBUMIN FLUID (BEAKER) (test dfvq=482) 0.9 gm/dL Reference Range: No Normals Assay performance has not been validated for this type of specimen.RIGHT THORACENTESIS, PLEURAL FLUIDRIGHT THORACENTESIS, PLEURAL FLUIDRIGHT THORACENTESIS, PLEURAL FLUIDRIGHT THORACENTESIS, PLEURAL FLUIDRIGHT THORACENTESIS, PLEURAL FLUIDRIGHT THORACENTESIS, PLEURAL FLUIDCREATININE, BODY [id number] 19:31:00 Test Item Value Reference Range Comments CREATININE FLUID (BEAKER) (test dltp=812) 15.62 mg/dL Reference Range: No Normals Assay performance has not been validated for this type of specimen.RIGHT THORACENTESIS, PLEURAL FLUIDRIGHT THORACENTESIS, PLEURAL FLUIDRIGHT THORACENTESIS, PLEURAL FLUIDRIGHT THORACENTESIS, PLEURAL FLUIDRIGHT THORACENTESIS, PLEURAL FLUIDRIGHT THORACENTESIS, PLEURAL FLUIDAMYLASE, BODY [id number] 19:27:00 Test Item Value Reference Range Comments AMYLASE FLUID (BEAKER) (test yhiv=874) 39 U/L Absence of reference range indicates that normals have not been defined.Assay performance has not been validated for this type of specimen.RIGHT THORACENTESIS , PLEURAL FLUIDRIGHT THORACENTESIS, PLEURALFLUIDRIGHT THORACENTESIS, PLEURAL FLUIDRIGHT THORACENTESIS, PLEURAL FLUIDRIGHT THORACENTESIS, PLEURAL FLUIDRIGHT THORACENTESIS, PLEURAL FLUIDLACTATE DEHYDROGENASE (LDH), BODY [id number] 19 :27:00 Test Item Value Reference Range Comments LACTATE DEHYDROGENASE FLUID (BEAKER) (test lcav=912) 113 U/L Absence of reference range indicates that normals have not been defined.Assay performance has not been validated for this type of specimen.RIGHT THORACENTESIS , PLEURAL FLUIDRIGHT THORACENTESIS, PLEURALFLUIDRIGHT THORACENTESIS, PLEURAL FLUIDRIGHT THORACENTESIS, PLEURAL FLUIDRIGHT THORACENTESIS, PLEURAL FLUIDRIGHT THORACENTESIS, PLEURAL FLUIDPROTEIN, BODY [id number] 19:27:00 Test Item Value Reference Range Comments PROTEIN FLUID (BEAKER) (test vfqw=652) 2.1 g/dL Absence of reference range indicates that normals have not been defined.Assay performance has not been validated for this type of specimen.RIGHT THORACENTESIS , PLEURAL FLUIDRIGHT THORACENTESIS, PLEURALFLUIDRIGHT THORACENTESIS, PLEURAL FLUIDRIGHT THORACENTESIS, PLEURAL FLUIDRIGHT THORACENTESIS, PLEURAL FLUIDRIGHT THORACENTESIS, PLEURAL FLUIDGLUCOSE, BODY [id number] 19:27:00 Test Item Value Reference Range Comments GLUCOSE, BODY FLUID (BEAKER) (test iltv=1043) 172 mg/dL Absence of reference range indicates that normals have not been defined.Assay performance has not been validated for this type of specimen.RIGHT THORACENTESIS , PLEURAL FLUIDRIGHT THORACENTESIS, PLEURALFLUIDRIGHT THORACENTESIS, PLEURAL FLUIDRIGHT THORACENTESIS, PLEURAL FLUIDRIGHT THORACENTESIS, PLEURAL FLUIDRIGHT THORACENTESIS, PLEURAL FLUIDAFB CULTURE + [id number] 18:17:00 Test Item Value Reference Range Comments CULTURE (BEAKER) (test No acid-fast bacilli isolated hfyt=4265) in 42 days AFB SMEAR (BEAKER) (test No acid fast bacilli seen tjbf=906) FUNGUS CULTURE + [id number] 19:24:00 Test Item Value Reference Range Comments CULTURE (BEAKER) (test No fungus isolated in 28 days quja=9953) FUNGUS SMEAR (BEAKER) (test No fungi seen tvxh=0324) BLOOD [id number] 08:20:00 Test Item Value Reference Range Comments CULTURE (BEAKER) (test xxdv=0752) No growth in 5 days BLOOD [id number] 08:13:00 Test Item Value Reference Range Comments CULTURE (BEAKER) (test zyfi=9717) No growth in 5 days POCT-GLUCOSE [id number] 08:25:00 Test Item Value Reference Range Comments POC-GLUCOSE METER (BEAKER) 244 mg/dL 70-110 TESTED AT [facility] [address] [facility] (test zwyt=6254) [facility] [address] BASIC METABOLIC [id number] 05:31:00 Test Item Value Reference Range Comments SODIUM (BEAKER) (test 134 meq/L 136-145 lgqt=696) POTASSIUM (BEAKER) (test 4.1 meq/L 3.5-5.1 phpg=305) CHLORIDE (BEAKER) (test 96 meq/L 98-107 mxee=929) CO2 (BEAKER) (test 23 meq/L 22-29 deic=405) BLOOD UREA NITROGEN 58 mg/dL 7-21 (BEAKER) (test fpka=791) CREATININE (BEAKER) (test 16.21 mg/dL 0.57-1.25 fhdd=657) GLUCOSE RANDOM (BEAKER) 224 mg/dL 70-105 (test ulgb=050) CALCIUM (BEAKER) (test 8.7 mg/dL 8.4-10.2 jduq=127) EGFR (BEAKER) (test 3 mL/min/1.73 sq m ESTIMATED GFR IS NOT nvrc=7681) ACCURATE CREATININE CLEARANCE IN PREDICTING GLOMERULAR FILTRATION RATE. ESTIMATED GFR IS NOT APPLICABLE FOR DIALYSIS PATIENTS. [id number] 05:27:00 Test Item Value Reference Range Comments MAGNESIUM (BEAKER) (test ucbp=209) 2.2 mg/dL 1.6-2.6 CBC (HEMOGRAM ONLY)2016-06-09 05:22:00 Test Item Value Reference Range Comments WHITE BLOOD CELL COUNT (BEAKER) (test vjsj=054) 5.7 K/ L 4.0-10.0 RED BLOOD CELL COUNT (BEAKER) (test nlmb=967) 3.51 M/ L 4.00-5.00 HEMOGLOBIN (BEAKER) (test kpwj=656) 9.9 GM/DL 12.0-15.0 HEMATOCRIT (BEAKER) (test zaqx=807) 30.6 % 36.0-45.0 MEAN CORPUSCULAR VOLUME (BEAKER) (test ivwv=825) 87.2 fL 82.0-99.0 MEAN CORPUSCULAR HEMOGLOBIN (BEAKER) (test 28.2 pg 27.0-33.0 ddvs=945) MEAN CORPUSCULAR HEMOGLOBIN CONC (BEAKER) (test 32.4 GM/DL 32.0-36.0 lbhw=070) RED CELL DISTRIBUTION WIDTH (BEAKER) (test 18.2 % 10.3-14.2 sfez=328) PLATELET COUNT (BEAKER) (test xngm=158) 214 K/CU MM 150-430 MEAN PLATELET VOLUME (BEAKER) (test dpjr=472) 10.0 fL 6.5-10.5 NUCLEATED RED BLOOD CELLS (BEAKER) (test 0 /100 WBC 0-0 fbjz=097) 0.00POCT-GLUCOSE [id number] 00:54:00 Test Item Value Reference Range Comments POC-GLUCOSE METER (BEAKER) 124 mg/dL 70-110 TESTED AT [address] (test fbyx=1611) [place] [address] POCT-GLUCOSE [id number] 17:10:00 Test Item Value Reference Range Comments POC-GLUCOSE METER (BEAKER) 146 mg/dL 70-110 TESTED AT [address] (test rybf=0557) [place] [address] BODY FLUID CULTURE + GRAM [id number] 15:37:00 Test Item Value Reference Range Comments CULTURE (BEAKER) (test zbqb=9032) No growth GRAM STAIN RESULT (BEAKER) (test No WBCs xmmm=6457) GRAM STAIN RESULT (BEAKER) (test No organisms seen jgzr=75565) PERITONEAL DIALYSIS EFFLUENT [id number] 15:25:00 Test Item Value Reference Range Comments CULTURE (BEAKER) (test kpxt=5618) No growth POCT-GLUCOSE [id number] 12:03:00 Test Item Value Reference Range Comments POC-GLUCOSE METER (BEAKER) 170 mg/dL 70-110 TESTED AT [address] (test odnm=6167) [place] [address] HEPATITIS C PCR, [id number] 09:44:00 Test Item Value Reference Range Comments HCV NUMERIC RESULT (BEAKER) (test acpp=0507) 563662 IU/mL <15 This test uses a Real-Time Polymerase Chain Reaction (RT-PCR) methodology and was performed using SHELLY Ampliprep/SHELLY TaqMan HCV test kit version 2.0 ( [employer]).Reportable range for this assay is 15 - 100,000, 000 IU per mL (1.18 - 8.00 Log IU/mL).POCT-GLUCOSE [id number] 08:07:00 Test Item Value Reference Range Comments POC-GLUCOSE METER (BEAKER) 183 mg/dL 70-110 TESTED AT [facility] [address] [facility] (test gycf=7488) [facility] [address] CBC (HEMOGRAM ONLY)2016-06-08 06:53:00 Test Item Value Reference Range Comments WHITE BLOOD CELL COUNT (BEAKER) (test rxhy=930) 6.2 K/ L 4.0-10.0 RED BLOOD CELL COUNT (BEAKER) (test bgps=630) 3.22 M/ L 4.00-5.00 HEMOGLOBIN (BEAKER) (test gknj=700) 9.5 GM/DL 12.0-15.0 HEMATOCRIT (BEAKER) (test wuag=720) 28.1 % 36.0-45.0 MEAN CORPUSCULAR VOLUME (BEAKER) (test ttpc=988) 87.5 fL 82.0-99.0 MEAN CORPUSCULAR HEMOGLOBIN (BEAKER) (test 29.5 pg 27.0-33.0 kpvi=818) MEAN CORPUSCULAR HEMOGLOBIN CONC (BEAKER) (test 33.7 GM/DL 32.0-36.0 ssxc=864) RED CELL DISTRIBUTION WIDTH (BEAKER) (test 18.3 % 10.3-14.2 fhmg=936) PLATELET COUNT (BEAKER) (test jeuh=696) 188 K/CU MM 150-430 MEAN PLATELET VOLUME (BEAKER) (test rjgi=152) 9.2 fL 6.5-10.5 NUCLEATED RED BLOOD CELLS (BEAKER) (test 0 /100 WBC 0-0 hiys=913) 0.00BASIC METABOLIC [id number] 05:44:00 Test Item Value Reference Range Comments SODIUM (BEAKER) (test 134 meq/L 136-145 glgq=738) POTASSIUM (BEAKER) (test 4.1 meq/L 3.5-5.1 oygq=839) CHLORIDE (BEAKER) (test 96 meq/L 98-107 vokz=229) CO2 (BEAKER) (test 23 meq/L 22-29 tcgf=832) BLOOD UREA NITROGEN 61 mg/dL 7-21 (BEAKER) (test uqxn=802) CREATININE (BEAKER) (test 16.52 mg/dL 0.57-1.25 gfcg=540) GLUCOSE RANDOM (BEAKER) 229 mg/dL 70-105 (test jyna=095) CALCIUM (BEAKER) (test 8.4 mg/dL 8.4-10.2 hsft=489) EGFR (BEAKER) (test 3 mL/min/1.73 sq m ESTIMATED GFR IS NOT ysuy=7428) ACCURATE CREATININE CLEARANCE IN PREDICTING GLOMERULAR FILTRATION RATE. ESTIMATED GFR IS NOT APPLICABLE FOR DIALYSIS PATIENTS. [id number] 05:41:00 Test Item Value Reference Range Comments MAGNESIUM (BEAKER) (test oslb=287) 2.3 mg/dL 1.6-2.6 POCT-GLUCOSE [id number] 20:59:00 Test Item Value Reference Range Comments POC-GLUCOSE METER (BEAKER) 105 mg/dL 70-110 TESTED AT [address] (test zxzb=5312) [place] [address] POCT-GLUCOSE [id number] 17:58:00 Test Item Value Reference Range Comments POC-GLUCOSE METER (BEAKER) 129 mg/dL 70-110 TESTED AT [address] (test xisw=6348) [place] [address] POCT-GLUCOSE [id number] 17:58:00 Test Item Value Reference Range Comments POC-GLUCOSE METER (BEAKER) 138 mg/dL 70-110 TESTED AT [address] (test hahn=9131) [place] [address] ANTI-NUCLEAR ANTIBODY (MILTON)2016-06-07 14:51:00 Test Item Value Reference Range Comments ANTI-NUCLEAR ANTIBODY (MILTON) (BEAKER) (test Negative Negative wegu=829) [id number] 09:26:00 Test Item Value Reference Range Comments PHOSPHORUS (BEAKER) (test wswr=069) 7.8 mg/dL 2.3-4.7 POCT-GLUCOSE [id number] 08:18:00 Test Item Value Reference Range Comments POC-GLUCOSE METER (BEAKER) 140 mg/dL 70-110 TESTED AT [facility] [address] (test ribw=3903) [facility] [address] CBC (HEMOGRAM ONLY)2016-06-07 07:53:00 Test Item Value Reference Range Comments WHITE BLOOD CELL COUNT (BEAKER) (test xiqn=497) 5.1 K/ L 4.0-10.0 RED BLOOD CELL COUNT (BEAKER) (test jfrg=661) 3.19 M/ L 4.00-5.00 HEMOGLOBIN (BEAKER) (test anjn=300) 9.2 GM/DL 12.0-15.0 HEMATOCRIT (BEAKER) (test qvym=081) 28.0 % 36.0-45.0 MEAN CORPUSCULAR VOLUME (BEAKER) (test zjed=764) 87.6 fL 82.0-99.0 MEAN CORPUSCULAR HEMOGLOBIN (BEAKER) (test 28.9 pg 27.0-33.0 bvuw=437) MEAN CORPUSCULAR HEMOGLOBIN CONC (BEAKER) (test 32.9 GM/DL 32.0-36.0 ypwl=053) RED CELL DISTRIBUTION WIDTH (BEAKER) (test 18.1 % 10.3-14.2 gmiw=244) PLATELET COUNT (BEAKER) (test lolc=566) 188 K/CU MM 150-430 MEAN PLATELET VOLUME (BEAKER) (test mvyr=816) 9.2 fL 6.5-10.5 NUCLEATED RED BLOOD CELLS (BEAKER) (test 0 /100 WBC 0-0 pmrg=107) 0.00BASI METABOLIC [id number] 07:30:00 Test Item Value Reference Range Comments SODIUM (BEAKER) (test 136 meq/L 136-145 notr=632) POTASSIUM (BEAKER) (test 4.2 meq/L 3.5-5.1 jeih=015) CHLORIDE (BEAKER) (test 98 meq/L 98-107 dfxf=519) CO2 (BEAKER) (test 23 meq/L 22-29 qywd=858) BLOOD UREA NITROGEN 59 mg/dL 7-21 (BEAKER) (test gkzc=659) CREATININE (BEAKER) (test 16.05 mg/dL 0.57-1.25 dpdf=583) GLUCOSE RANDOM (BEAKER) 165 mg/dL 70-105 (test riby=610) CALCIUM (BEAKER) (test 8.0 mg/dL 8.4-10.2 rozd=769) EGFR (BEAKER) (test 3 mL/min/1.73 sq m ESTIMATED GFR IS NOT ojhz=5369) ACCURATE CREATININE CLEARANCE IN PREDICTING GLOMERULAR FILTRATION RATE. ESTIMATED GFR IS NOT APPLICABLE FOR DIALYSIS PATIENTS. [id number] 07:29:00 Test Item Value Reference Range Comments MAGNESIUM (BEAKER) (test oeei=976) 1.7 mg/dL 1.6-2.6 VANCOMYCIN LEVEL, [id number] 07:28:00 Test Item Value Reference Range Comments VANCOMYCIN RANDOM (BEAKER) (test hhjl=344) 18.5 ug/mL Reference Range: No NormalsPOCT-GLUCOSE [id number] 21:54:00 Test Item Value Reference Range Comments POC-GLUCOSE METER ([facility]) 112 mg/dL 70-110 TESTED AT [address] (test xcgw=0255) [place] [id number] 19:10:00 Test Item Value Reference Range Comments ACTIVATED CLOTTING TIME 337 sec TESTED AT [address] ([facility]) (test lqps=601) [place] [address] [id number] 16:26:00 Test Item Value Reference Range Comments PARTIAL THROMBOPLASTIN TIME (BEAKER) (test 83.0 seconds 22.5-36.0 tqnr=835) HEPATIC FUNCTION [id number] 14:54:00 Test Item Value Reference Range Comments TOTAL PROTEIN (BEAKER) (test cvup=168) 6.6 gm/dL 6.0-8.3 ALBUMIN (BEAKER) (test eksk=9973) 2.4 g/dL 3.5-5.0 BILIRUBIN TOTAL (BEAKER) (test kgpx=639) 0.2 mg/dL 0.2-1.2 BILIRUBIN DIRECT (BEAKER) (test rqis=392) 0.1 mg/dL 0.1-0.5 ALKALINE PHOSPHATASE (BEAKER) (test fels=242) 100 U/L 40-150 AST (SGOT) (BEAKER) (test ggkw=419) 18 U/L 5-34 ALT (SGPT) (BEAKER) (test twao=028) 18 U/L 6-55 [id number] 13:30:00 Test Item Value Reference Range Comments FERRITIN (BEAKER) (test plmg=243) 343 ng/mL 5-275 Effective 01/28/2014: Reference Range ChangeNew: Male 5-275 Previous: Male 22-322 Female 5-275 Female 86-860CKNG-UCTAAWH [id number] 13:01:00 Test Item Value Reference Range Comments POC-GLUCOSE METER (BEAKER) 121 mg/dL 70-110 TESTED AT [facility] [address] [facility] (test efyk=8139) [facility] [address] HEPATITIS C [id number] 11:01:00 Test Item Value Reference Range Comments HEPATITIS C ANTIBODY (BEAKER) (test frpg=053) Reactive Nonreactive HEPATITIS B SURFACE [id number] 10:32:00 Test Item Value Reference Range Comments HEPATITIS B SURFACE ANTIGEN (2) (BEAKER) (test Nonreactive Nonreactive gsyh=8892) HEPATITIS B SURFACE [id number] 10:32:00 Test Item Value Reference Range Comments HEPATITIS B SURFACE ANTIBODY (BEAKER) (test 71.3 mIU/mL <8.0 rvsh=611) HEPATITIS A ANTIBODY, [id number] 10:32:00 Test Item Value Reference Range Comments HEPATITIS A IGM ANTIBODY (BEAKER) (test Nonreactive Nonreactive dyhq=028) HEPATITIS B CORE ANTIBODY, [id number] 10:32:00 Test Item Value Reference Range Comments HEPATITIS B CORE TOTAL ANTIBODY (BEAKER) (test Nonreactive Nonreactive rnqw=572) LACTATE DEHYDROGENASE (LDH), BODY [id number] 10:24:00 Test Item Value Reference Range Comments LACTATE DEHYDROGENASE FLUID (BEAKER) < U/L Light's criteria identifies (test pyah=360) effusions if one or more are pre Absence of reference range indicates that normals have not been defined.Assay performance has not been validated for this type of specimen.[id number] 10:19:00 Test Item Value Reference Range Comments TRANSFERRIN (BEAKER) (test ihjn=778) 165 mg/dL 174-382 IRON, TIBC, % SAT. (WITHOUT FERRITIN)2016-06-06 10:19:00 Test Item Value Reference Range Comments IRON (BEAKER) (test ptye=355) 41 ug/dL 40-160 TOTAL IRON BINDING CAPACITY (BEAKER) (test 206 ug/dL 250-450 zxix=933) IRON % SATURATION (2) (BEAKER) (test xgbc=7344) 20 % 20-55 PROTEIN, [id number] 09:36:00 Test Item Value Reference Range Comments TOTAL PROTEIN (BEAKER) (test xojk=948) 6.5 gm/dL 6.0-8.3 LACTATE DEHYDROGENASE (LDH)2016-06-06 09:36:00 Test Item Value Reference Range Comments LACTATE DEHYDROGENASE (BEAKER) (test vhjv=588) 248 U/L 125-220 [id number] 09:32:00 Test Item Value Reference Range Comments PARTIAL THROMBOPLASTIN TIME (BEAKER) (test 72.0 seconds 22.5-36.0 aiav=480) Prior to initiating heparinPROTHROMBIN [id number] 09:30:00 Test Item Value Reference Range Comments PROTIME (BEAKER) (test vmlg=317) 15.2 seconds 11.7-14.7 INR (BEAKER) (test chur=163) 1.2 <=5.9 RECOMMENDED COUMADIN/WARFARIN INR THERAPY RANGESSTANDARD DOSE: 2.0 - 3.0 Includes: PROPHYLAXIS forvenous thrombosis, systemic embolization; TREATMENT for venous thrombosis and/or pulmonary embolus.HIGH RISK: Target INR is 2.5-3.5 for patients with mechanical heart valves.Prior to initiating heparinCBC ( HEMOGRAM ONLY)2016-06-06 09:19:00 Test Item Value Reference Range Comments WHITE BLOOD CELL COUNT (BEAKER) (test wioz=862) 6.3 K/ L 4.0-10.0 RED BLOOD CELL COUNT (BEAKER) (test rlao=965) 3.26 M/ L 4.00-5.00 HEMOGLOBIN (BEAKER) (test vnkg=020) 9.3 GM/DL 12.0-15.0 HEMATOCRIT (BEAKER) (test ebku=311) 28.7 % 36.0-45.0 MEAN CORPUSCULAR VOLUME (BEAKER) (test xwki=232) 88.2 fL 82.0-99.0 MEAN CORPUSCULAR HEMOGLOBIN (BEAKER) (test 28.4 pg 27.0-33.0 qyhk=064) MEAN CORPUSCULAR HEMOGLOBIN CONC (BEAKER) (test 32.2 GM/DL 32.0-36.0 fcdt=029) RED CELL DISTRIBUTION WIDTH (BEAKER) (test 19.0 % 10.3-14.2 pjed=829) PLATELET COUNT (BEAKER) (test girn=888) 185 K/CU MM 150-430 MEAN PLATELET VOLUME (BEAKER) (test yoxk=550) 9.0 fL 6.5-10.5 NUCLEATED RED BLOOD CELLS (BEAKER) (test 0 /100 WBC 0-0 uqdb=629) PLATELET [id number] 09:15:00 Test Item Value Reference Range Comments PLATELET COUNT (BEAKER) (test bgdq=025) 185 K/CU MM 150-430 POCT-GLUCOSE [id number] 08:01:00 Test Item Value Reference Range Comments POC-GLUCOSE METER (BEAKER) 119 mg/dL 70-110 TESTED AT [facility] [address] [facility] (test ddtr=3605) [facility] [address] [id number] 04:10:00 Test Item Value Reference Range Comments MAGNESIUM (BEAKER) (test rvqy=680) 1.8 mg/dL 1.6-2.6 BASIC METABOLIC [id number] 04:10:00 Test Item Value Reference Range Comments SODIUM (BEAKER) (test 136 meq/L 136-145 cojt=079) POTASSIUM (BEAKER) (test 4.0 meq/L 3.5-5.1 zezc=716) CHLORIDE (BEAKER) (test 97 meq/L 98-107 krpf=248) CO2 (BEAKER) (test 24 meq/L 22-29 phka=343) BLOOD UREA NITROGEN 64 mg/dL 7-21 (BEAKER) (test vdgz=461) CREATININE (BEAKER) (test 16.35 mg/dL 0.57-1.25 urft=322) GLUCOSE RANDOM (BEAKER) 124 mg/dL 70-105 (test adrd=221) CALCIUM (BEAKER) (test 7.7 mg/dL 8.4-10.2 mdcn=636) EGFR (BEAKER) (test 3 mL/min/1.73 sq m ESTIMATED GFR IS NOT gelp=0946) ACCURATE CREATININE CLEARANCE IN PREDICTING GLOMERULAR FILTRATION RATE. ESTIMATED GFR IS NOT APPLICABLE FOR DIALYSIS PATIENTS. [id number] 04:09:00 Test Item Value Reference Range Comments PARTIAL THROMBOPLASTIN TIME (BEAKER) (test 92.0 seconds 22.5-36.0 znsj=197) CBC (HEMOGRAM ONLY)2016-06-06 03:58:00 Test Item Value Reference Range Comments WHITE BLOOD CELL COUNT (BEAKER) (test emsb=872) 6.1 K/ L 4.0-10.0 RED BLOOD CELL COUNT (BEAKER) (test rkvc=077) 3.19 M/ L 4.00-5.00 HEMOGLOBIN (BEAKER) (test kbao=187) 9.2 GM/DL 12.0-15.0 HEMATOCRIT (BEAKER) (test htgt=188) 27.9 % 36.0-45.0 MEAN CORPUSCULAR VOLUME (BEAKER) (test nnlh=232) 87.4 fL 82.0-99.0 MEAN CORPUSCULAR HEMOGLOBIN (BEAKER) (test 28.9 pg 27.0-33.0 hgtg=850) MEAN CORPUSCULAR HEMOGLOBIN CONC (BEAKER) (test 33.0 GM/DL 32.0-36.0 yhfy=306) RED CELL DISTRIBUTION WIDTH (BEAKER) (test 18.0 % 10.3-14.2 caef=127) PLATELET COUNT (BEAKER) (test oavq=643) 185 K/CU MM 150-430 MEAN PLATELET VOLUME (BEAKER) (test foku=182) 9.1 fL 6.5-10.5 NUCLEATED RED BLOOD CELLS (BEAKER) (test 0 /100 WBC 0-0 jthw=893) 0.00POCT-GLUCOSE [id number] 00:10:00 Test Item Value Reference Range Comments POC-GLUCOSE METER (BEAKER) 235 mg/dL 70-110 TESTED AT [facility] [address] [facility] (test vqmp=0131) [facility] [address] GRAM [id number] 23:45:00 Test Item Value Reference Range Comments GRAM STAIN RESULT (BEAKER) (test <1+ WBCs jepa=1298) GRAM STAIN RESULT (BEAKER) (test No organisms seen cbmz=48348) BODY FLUID CELL COUNT WITH [id number] 20:12:00 Test Item Value Reference Range Comments APPEARANCE FLUID (BEAKER) (test tejx=494) Clear Clear COLOR FLUID (BEAKER) (test xavy=466) Straw Colorless, Straw RBC FLUID (BEAKER) (test ugja=963) 200 /cu mm <=1 ADJUSTED WBC FLUID (BEAKER) (test zirx=5580) 20 /cu mm <=5 LINING CELLS (BEAKER) (test jxlp=9395) 0 /cu mm <=1 NEUTROPHILS FLUID (BEAKER) (test tpmi=9097) 9 % LYMPHS FLUID (BEAKER) (test xecr=210) 39 % MONO/MACROPHAGE FLUID (BEAKER) (test uzwi=034) 52 % EOSINOPHILS FLUID (BEAKER) (test zmph=452) 0 % BASO FLUID (BEAKER) (test musg=256) 0 % CONTAINER BODY FLUID (BEAKER) (test dvna=3559) EDTA Tube BODY FLUID CELL COUNT WITH [id number] 19:33:00 Test Item Value Reference Range Comments APPEARANCE FLUID (BEAKER) (test doqu=491) Slightly Hazy Clear COLOR FLUID (BEAKER) (test xbpf=053) Straw Colorless, Straw RBC FLUID (BEAKER) (test kasi=105) 90 /cu mm <=1 ADJUSTED WBC FLUID (BEAKER) (test lvih=8466) 125 /cu mm <=5 LINING CELLS (BEAKER) (test ijnn=9287) 5 /cu mm <=1 NEUTROPHILS FLUID (BEAKER) (test qkba=4481) 2 % LYMPHS FLUID (BEAKER) (test tmig=676) 30 % MONO/MACROPHAGE FLUID (BEAKER) (test 68 % fvpe=162) EOSINOPHILS FLUID (BEAKER) (test ksji=611) 0 % BASO FLUID (BEAKER) (test yjjk=542) 0 % CONTAINER BODY FLUID (BEAKER) (test EDTA Tube fmzu=3241) PROTEIN, BODY [id number] 19:01:00 Test Item Value Reference Range Comments PROTEIN FLUID (BEAKER) (test 2.4 g/dL Light's criteria identifies hpqp=931) effusions if one or more are pre Absence of reference range indicates that normals have not been defined.Assay performance has not been validated for this type of specimen.GLUCOSE, BODY [id number] 19:01:00 Test Item Value Reference Range Comments GLUCOSE, BODY FLUID (BEAKER) (test dres=4435) 193 mg/dL 70-110 Absence of reference range indicates that normals have not been defined.Assay performance has not been validated for this type of specimen.PH, BODY [id number] 18:45:00 Test Item Value Reference Range Comments PH, BODY FLUID (BEAKER) (test hwly=2280) 7.73 [id number] 18:22:00 Test Item Value Reference Range Comments PARTIAL THROMBOPLASTIN TIME (BEAKER) (test 36.7 seconds 22.5-36.0 ugyl=438) PROTHROMBIN [id number] 18:20:00 Test Item Value Reference Range Comments PROTIME (BEAKER) (test hhoo=684) 15.3 seconds 11.7-14.7 INR (BEAKER) (test dkka=125) 1.2 <=5.9 RECOMMENDED COUMADIN/WARFARIN INR THERAPY RANGESSTANDARD DOSE: 2.0 - 3.0 Includes: PROPHYLAXIS forvenous thrombosis, systemic embolization; TREATMENT for venous thrombosis and/or pulmonary embolus.HIGH RISK: Target INR is 2.5-3.5 for patients with mechanical heart valves.POCT-GLUCOSE [id number] 18:04:00 Test Item Value Reference Range Comments POC-GLUCOSE METER (BEAKER) 182 mg/dL 70-110 TESTED AT [facility] [address] [facility] (test sfbh=3138) [facility] [address] CREATINE KINASE (CK), TOTAL AND [id number] 16:32:00 Test Item Value Reference Range Comments CREATINE KINASE TOTAL (BEAKER) (test vkog=684) 247 U/L 29-200 CREATINE KINASE-MB (BEAKER) (test pmmv=912) 8.4 ng/mL 0.0-6.6 CREATINE KINASE-MB INDEX (BEAKER) (test lnph=138) 3.4 % Effective 01/28/2014: CK-MB Reference Range ChangeNew: 0.0-6.6 Previous: 0.0- 4.9CK-MB Reference Range:<6.7 Normal6.7-10.0 Borderline>10.0 AbnormalTROPONIN [id number] 16:32:00 Test Item Value Reference Range Comments TROPONIN I (BEAKER) (test mrqd=779) 0.06 ng/mL 0.00-0.03 Effective 01/28/2014: Reference Range [...] acute neurological disease, and persistent tachyarrhythmia.BASIC METABOLIC [id number] 16:31:00 Test Item Value Reference Range Comments SODIUM (BEAKER) (test 135 meq/L 136-145 ykpu=493) POTASSIUM (BEAKER) (test 4.7 meq/L 3.5-5.1 zlox=019) CHLORIDE (BEAKER) (test 95 meq/L 98-107 rkhc=897) CO2 (BEAKER) (test 24 meq/L 22-29 ktae=027) BLOOD UREA NITROGEN 72 mg/dL 7-21 (BEAKER) (test gbol=856) CREATININE (BEAKER) (test 17.37 mg/dL 0.57-1.25 ayct=780) GLUCOSE RANDOM (BEAKER) 179 mg/dL 70-105 (test uaby=368) CALCIUM (BEAKER) (test 7.7 mg/dL 8.4-10.2 kigq=037) EGFR (BEAKER) (test 3 mL/min/1.73 sq m ESTIMATED GFR IS NOT smep=5713) ACCURATE CREATININE CLEARANCE IN PREDICTING GLOMERULAR FILTRATION RATE. ESTIMATED GFR IS NOT APPLICABLE FOR DIALYSIS PATIENTS. [id number] 16:26:00 Test Item Value Reference Range Comments PHOSPHORUS (BEAKER) (test jrqf=273) 8.1 mg/dL 2.3-4.7 [id number] 16:26:00 Test Item Value Reference Range Comments MAGNESIUM (BEAKER) (test txll=856) 1.9 mg/dL 1.6-2.6 HEPATIC FUNCTION [id number] 16:26:00 Test Item Value Reference Range Comments TOTAL PROTEIN (BEAKER) (test vxmb=370) 6.6 gm/dL 6.0-8.3 ALBUMIN (BEAKER) (test izgt=9926) 2.5 g/dL 3.5-5.0 BILIRUBIN TOTAL (BEAKER) (test wlbd=393) 0.2 mg/dL 0.2-1.2 BILIRUBIN DIRECT (BEAKER) (test lnxh=714) 0.1 mg/dL 0.1-0.5 ALKALINE PHOSPHATASE (BEAKER) (test fmcl=029) 105 U/L 40-150 AST (SGOT) (BEAKER) (test pjij=157) 18 U/L 5-34 ALT (SGPT) (BEAKER) (test brui=959) 21 U/L 6-55 CBC W/PLT COUNT & AUTO [id number] 16:07:00 Test Item Value Reference Range Comments WHITE BLOOD CELL COUNT (BEAKER) (test yqgq=195) 5.1 K/ L 4.0-10.0 RED BLOOD CELL COUNT (BEAKER) (test euvv=483) 3.26 M/ L 4.00-5.00 HEMOGLOBIN (BEAKER) (test glqk=308) 9.3 GM/DL 12.0-15.0 HEMATOCRIT (BEAKER) (test usjc=517) 28.8 % 36.0-45.0 MEAN CORPUSCULAR VOLUME (BEAKER) (test vyqd=669) 88.1 fL 82.0-99.0 MEAN CORPUSCULAR HEMOGLOBIN (BEAKER) (test 28.4 pg 27.0-33.0 vazl=968) MEAN CORPUSCULAR HEMOGLOBIN CONC (BEAKER) (test 32.2 GM/DL 32.0-36.0 kzdz=262) RED CELL DISTRIBUTION WIDTH (BEAKER) (test 19.1 % 10.3-14.2 omcx=597) PLATELET COUNT (BEAKER) (test ocuw=642) 182 K/CU MM 150-430 MEAN PLATELET VOLUME (BEAKER) (test hudb=729) 8.6 fL 6.5-10.5 NUCLEATED RED BLOOD CELLS (BEAKER) (test 0 /100 WBC 0-0 jypi=008) NEUTROPHILS RELATIVE PERCENT (BEAKER) (test 64 % xgjg=296) LYMPHOCYTES RELATIVE PERCENT (BEAKER) (test 21 % cbew=336) MONOCYTES RELATIVE PERCENT (BEAKER) (test 11 % sppo=215) EOSINOPHILS RELATIVE PERCENT (BEAKER) (test 3 % pdgl=001) BASOPHILS RELATIVE PERCENT (BEAKER) (test 1 % bhmc=796) NEUTROPHILS ABSOLUTE COUNT (BEAKER) (test 3.26 K/ L 1.80-8.00 woht=874) LYMPHOCYTES ABSOLUTE COUNT (BEAKER) (test 1.09 K/ L 1.48-4.50 swpn=461) MONOCYTES ABSOLUTE COUNT (BEAKER) (test 0.57 K/ L 0.00-1.30 aoez=429) EOSINOPHILS ABSOLUTE COUNT (BEAKER) (test 0.16 K/ L 0.00-0.50 peaf=134) BASOPHILS ABSOLUTE COUNT (BEAKER) (test 0.03 K/ L 0.00-0.20 opnw=218) 0.00LACTIC ACID, VENOUS, WHOLE [id number] 16:06:00 Test Item Value Reference Range Comments LACTATE BLOOD VENOUS (2) (BEAKER) (test 1.5 mmol/L 0.5-2.2 khue=2346) Effective 07/15/2015: Units/Reference Range ChangeNew: 0.5-2.2 mmol/L Previous: 5 -20 mg/dLBLOOD GAS, [id number] 15:57:00 Test Item Value Reference Range Comments PH VENOUS (BEAKER) (test dyca=394) 7.39 7.32-7.42 PCO2 VENOUS (BEAKER) (test xkzs=507) 46 mmHg 41-51 PO2 VENOUS (BEAKER) (test jvon=849) 39 mmHg 25-40 O2 SATURATION VENOUS (BEAKER) (test wxdn=294) 74.4 % 40.0-70.0 HCO3 VENOUS (BEAKER) (test izzw=577) 27 mmol/L 21-29 BASE EXCESS VENOUS (BEAKER) (test kfky=022) 2.0 mmol/L -2.0-3.0 PATIENT TEMPERATURE (BEAKER) (test pnqs=4031) 36.5 C FIO2 (BEAKER) (test ozoa=0958) 21.0 % POCT-GLUCOSE [id number] 12:45:00 Test Item Value Reference Range Comments POC-GLUCOSE METER (BEAKER) 201 mg/dL 70-110 TESTED AT [facility] [address] (test lpth=7482) [facility] [address] POCT-GLUCOSE [id number] 08:26:00 Test Item Value Reference Range Comments POC-GLUCOSE METER (BEAKER) 181 mg/dL 70-110 TESTED AT [facility] [address] (test fbqy=3921) [facility] [address] [id number] 07:00:00 Test Item Value Reference Range Comments FERRITIN (BEAKER) (test hcyn=894) 337 ng/mL 5-275 Effective 01/28/2014: Reference Range ChangeNew: Male 5-275 Previous: Male 22-322 Female 5-275 Female [id number] 06:20: 00 Test Item Value Reference Range Comments MAGNESIUM (BEAKER) (test smpn=358) 1.8 mg/dL 1.6-2.6 BASIC METABOLIC [id number] 06:20:00 Test Item Value Reference Range Comments SODIUM (BEAKER) (test 137 meq/L 136-145 nnpq=990) POTASSIUM (BEAKER) (test 3.8 meq/L 3.5-5.1 afah=360) CHLORIDE (BEAKER) (test 102 meq/L 98-107 rznv=688) CO2 (BEAKER) (test 20 meq/L 22-29 owtc=124) BLOOD UREA NITROGEN 64 mg/dL 7-21 (BEAKER) (test cirl=641) CREATININE (BEAKER) (test 15.09 mg/dL 0.57-1.25 eqft=142) GLUCOSE RANDOM (BEAKER) 176 mg/dL 70-105 (test odyt=367) CALCIUM (BEAKER) (test 7.1 mg/dL 8.4-10.2 vhaw=666) EGFR (BEAKER) (test 3 mL/min/1.73 sq m ESTIMATED GFR IS NOT swor=5877) ACCURATE CREATININE CLEARANCE IN PREDICTING GLOMERULAR FILTRATION RATE. ESTIMATED GFR IS NOT APPLICABLE FOR DIALYSIS PATIENTS. IRON, TIBC, % SAT. (WITHOUT FERRITIN)[id number] 06:19:00 Test Item Value Reference Range Comments IRON (BEAKER) (test oiga=220) 59 ug/dL 40-160 TOTAL IRON BINDING CAPACITY (BEAKER) (test 233 ug/dL 250-450 ooox=732) IRON % SATURATION (2) (BEAKER) (test uwfx=5232) 25 % 20-55 CBC W/PLT COUNT & AUTO [id number] 06:00:00 Test Item Value Reference Range Comments WHITE BLOOD CELL COUNT (BEAKER) (test ovar=790) 4.0 K/ L 4.0-10.0 RED BLOOD CELL COUNT (BEAKER) (test avtd=053) 3.68 M/ L 4.00-5.00 HEMOGLOBIN (BEAKER) (test bnqw=200) 10.7 GM/DL 12.0-15.0 HEMATOCRIT (BEAKER) (test qliv=503) 32.4 % 36.0-45.0 MEAN CORPUSCULAR VOLUME (BEAKER) (test ckzl=909) 88.0 fL 82.0-99.0 MEAN CORPUSCULAR HEMOGLOBIN (BEAKER) (test 29.1 pg 27.0-33.0 kvbs=918) MEAN CORPUSCULAR HEMOGLOBIN CONC (BEAKER) (test 33.1 GM/DL 32.0-36.0 vqkk=308) RED CELL DISTRIBUTION WIDTH (BEAKER) (test 19.0 % 10.3-14.2 zziq=136) PLATELET COUNT (BEAKER) (test pjey=063) 194 K/CU MM 150-430 MEAN PLATELET VOLUME (BEAKER) (test nlot=664) 9.2 fL 6.5-10.5 NUCLEATED RED BLOOD CELLS (BEAKER) (test 0 /100 WBC 0-0 oeqb=209) NEUTROPHILS RELATIVE PERCENT (BEAKER) (test 64 % zlgd=653) LYMPHOCYTES RELATIVE PERCENT (BEAKER) (test 23 % jpmu=508) MONOCYTES RELATIVE PERCENT (BEAKER) (test 8 % xsls=120) EOSINOPHILS RELATIVE PERCENT (BEAKER) (test 3 % olof=865) BASOPHILS RELATIVE PERCENT (BEAKER) (test 1 % wdin=855) NEUTROPHILS ABSOLUTE COUNT (BEAKER) (test 2.59 K/ L 1.80-8.00 glml=573) LYMPHOCYTES ABSOLUTE COUNT (BEAKER) (test 0.92 K/ L 1.48-4.50 ofad=992) MONOCYTES ABSOLUTE COUNT (BEAKER) (test 0.34 K/ L 0.00-1.30 erzx=115) EOSINOPHILS ABSOLUTE COUNT (BEAKER) (test 0.13 K/ L 0.00-0.50 rujp=605) BASOPHILS ABSOLUTE COUNT (BEAKER) (test 0.06 K/ L 0.00-0.20 kxjw=295) 0.00POCT-GLUCOSE [id number] 17:21:00 Test Item Value Reference Range Comments POC-GLUCOSE METER (BEAKER) 196 mg/dL 70-110 TESTED AT [facility] [address] [facility] (test gswp=6289) [facility] [address] POCT-GLUCOSE [id number] 12:54:00 Test Item Value Reference Range Comments POC-GLUCOSE METER (BEAKER) 190 mg/dL 70-110 TESTED AT [place] [id number] [facility] (test sapo=0220) [facility] [address] HEMOGLOBIN AND [id number] 11:25:00 Test Item Value Reference Range Comments HEMOGLOBIN (BEAKER) (test kuho=463) 9.1 GM/DL 12.0-15.0 HEMATOCRIT (BEAKER) (test jvfp=624) 27.2 % 36.0-45.0 POCT-GLUCOSE [id number] 07:54:00 Test Item Value Reference Range Comments POC-GLUCOSE METER (BEAKER) 116 mg/dL 70-110 TESTED AT [address] (test vpfk=0031) [facility] [address] [id number] 05:00:00 Test Item Value Reference Range Comments PHOSPHORUS (BEAKER) (test rsus=244) 8.0 mg/dL 2.3-4.7 BASIC METABOLIC [id number] 01:32:00 Test Item Value Reference Range Comments SODIUM (BEAKER) (test 133 meq/L 136-145 acml=044) POTASSIUM (BEAKER) (test 4.8 meq/L 3.5-5.1 Specimen slightly mwup=140) hemolyzed CHLORIDE (BEAKER) (test 95 meq/L 98-107 xkgj=758) CO2 (BEAKER) (test 25 meq/L 22-29 pcqp=698) BLOOD UREA NITROGEN 73 mg/dL 7-21 (BEAKER) (test pcir=683) CREATININE (BEAKER) (test 17.24 mg/dL 0.57-1.25 Specimen slightly ezsu=759) hemolyzed GLUCOSE RANDOM (BEAKER) 127 mg/dL 70-105 (test sypi=907) CALCIUM (BEAKER) (test 7.9 mg/dL 8.4-10.2 uquv=149) EGFR (BEAKER) (test 3 mL/min/1.73 sq m ESTIMATED GFR IS NOT xwac=6641) ACCURATE CREATININE CLEARANCE IN PREDICTING GLOMERULAR FILTRATION RATE. ESTIMATED GFR IS NOT APPLICABLE FOR DIALYSIS PATIENTS. CBC W/PLT COUNT & AUTO [id number] 01:18:00 Test Item Value Reference Range Comments WHITE BLOOD CELL COUNT (BEAKER) (test iffs=676) 6.0 K/ L 4.0-10.0 RED BLOOD CELL COUNT (BEAKER) (test evst=305) 3.16 M/ L 4.00-5.00 HEMOGLOBIN (BEAKER) (test nnna=246) 9.0 GM/DL 12.0-15.0 HEMATOCRIT (BEAKER) (test ryia=354) 27.5 % 36.0-45.0 MEAN CORPUSCULAR VOLUME (BEAKER) (test mazg=954) 86.9 fL 82.0-99.0 MEAN CORPUSCULAR HEMOGLOBIN (BEAKER) (test 28.4 pg 27.0-33.0 fakn=245) MEAN CORPUSCULAR HEMOGLOBIN CONC (BEAKER) (test 32.6 GM/DL 32.0-36.0 ibzo=075) RED CELL DISTRIBUTION WIDTH (BEAKER) (test 18.9 % 10.3-14.2 umrk=768) PLATELET COUNT (BEAKER) (test tona=390) 177 K/CU MM 150-430 MEAN PLATELET VOLUME (BEAKER) (test thpv=544) 9.2 fL 6.5-10.5 NUCLEATED RED BLOOD CELLS (BEAKER) (test 0 /100 WBC 0-0 siaw=256) NEUTROPHILS RELATIVE PERCENT (BEAKER) (test 72 % vabr=197) LYMPHOCYTES RELATIVE PERCENT (BEAKER) (test 18 % iyaj=602) MONOCYTES RELATIVE PERCENT (BEAKER) (test 9 % xsev=157) EOSINOPHILS RELATIVE PERCENT (BEAKER) (test 0 % coxd=916) BASOPHILS RELATIVE PERCENT (BEAKER) (test 0 % xxyk=631) NEUTROPHILS ABSOLUTE COUNT (BEAKER) (test 4.29 K/ L 1.80-8.00 ahkv=640) LYMPHOCYTES ABSOLUTE COUNT (BEAKER) (test 1.10 K/ L 1.48-4.50 qvap=617) MONOCYTES ABSOLUTE COUNT (BEAKER) (test 0.54 K/ L 0.00-1.30 qdtw=122) EOSINOPHILS ABSOLUTE COUNT (BEAKER) (test 0.02 K/ L 0.00-0.50 wzeo=728) BASOPHILS ABSOLUTE COUNT (BEAKER) (test 0.03 K/ L 0.00-0.20 hkbo=297) 0.00POCT-GLUCOSE [id number] 22:11:00 Test Item Value Reference Range Comments POC-GLUCOSE METER (BEAKER) 200 mg/dL 70-110 TESTED AT [address] (test rcmr=7512) [facility] [address] POCT-GLUCOSE [id number] 18:17:00 Test Item Value Reference Range Comments POC-GLUCOSE METER (BEAKER) 206 mg/dL 70-110 TESTED AT [address] (test jbkl=9793) [place] [id number] 17:39:00 Test Item Value Reference Range Comments POTASSIUM (BEAKER) (test kzlm=529) 4.7 meq/L 3.5-5.1 BASIC METABOLIC [id number] 11:55:00 Test Item Value Reference Range Comments SODIUM (BEAKER) (test 138 meq/L 136-145 yyft=855) POTASSIUM (BEAKER) (test 4.4 meq/L 3.5-5.1 fvsu=510) CHLORIDE (BEAKER) (test 96 meq/L 98-107 gjfs=837) CO2 (BEAKER) (test 27 meq/L 22-29 ugei=616) BLOOD UREA NITROGEN 68 mg/dL 7-21 (BEAKER) (test cbfd=513) CREATININE (BEAKER) (test 16.75 mg/dL 0.57-1.25 nxtq=104) GLUCOSE RANDOM (BEAKER) 139 mg/dL 70-105 (test xujj=423) CALCIUM (BEAKER) (test 8.5 mg/dL 8.4-10.2 wsvx=353) EGFR (BEAKER) (test 3 mL/min/1.73 sq m ESTIMATED GFR IS NOT dvzs=8541) ACCURATE CREATININE CLEARANCE IN PREDICTING GLOMERULAR FILTRATION RATE. ESTIMATED GFR IS NOT APPLICABLE FOR DIALYSIS PATIENTS. [id number] 11:42:00 Test Item Value Reference Range Comments PROTIME (BEAKER) (test hrbc=304) 14.6 seconds 11.7-14.7 INR (BEAKER) (test jsiq=893) 1.2 <=5.9 PARTIAL THROMBOPLASTIN TIME (BEAKER) (test 33.8 seconds 22.5-36.0 prla=472) RECOMMENDED COUMADIN/WARFARIN INR THERAPY RANGESSTANDARD DOSE: 2.0 - 3.0 Includes: PROPHYLAXIS forvenous thrombosis, systemic embolization; TREATMENT for venous thrombosis and/or pulmonary embolus.HIGH RISK: Target INR is 2.5-3.5 for patients with mechanical heart valves.CBC W/PLT COUNT & AUTO [id number] 11:39:00 Test Item Value Reference Range Comments WHITE BLOOD CELL COUNT (BEAKER) (test mbjc=610) 5.9 K/ L 4.0-10.0 RED BLOOD CELL COUNT (BEAKER) (test bsew=097) 3.66 M/ L 4.00-5.00 HEMOGLOBIN (BEAKER) (test oned=650) 10.3 GM/DL 12.0-15.0 HEMATOCRIT (BEAKER) (test icyf=108) 31.9 % 36.0-45.0 MEAN CORPUSCULAR VOLUME (BEAKER) (test xymu=172) 87.1 fL 82.0-99.0 MEAN CORPUSCULAR HEMOGLOBIN (BEAKER) (test 28.2 pg 27.0-33.0 fvpq=932) MEAN CORPUSCULAR HEMOGLOBIN CONC (BEAKER) (test 32.4 GM/DL 32.0-36.0 iidd=915) RED CELL DISTRIBUTION WIDTH (BEAKER) (test 17.9 % 10.3-14.2 aowt=000) PLATELET COUNT (BEAKER) (test ghvd=105) 192 K/CU MM 150-430 MEAN PLATELET VOLUME (BEAKER) (test jybl=590) 8.8 fL 6.5-10.5 NUCLEATED RED BLOOD CELLS (BEAKER) (test 0 /100 WBC 0-0 nfjb=029) NEUTROPHILS RELATIVE PERCENT (BEAKER) (test 74 % zatk=744) LYMPHOCYTES RELATIVE PERCENT (BEAKER) (test 16 % urgy=287) MONOCYTES RELATIVE PERCENT (BEAKER) (test 7 % bezl=715) EOSINOPHILS RELATIVE PERCENT (BEAKER) (test 2 % asth=740) BASOPHILS RELATIVE PERCENT (BEAKER) (test 1 % upmo=211) NEUTROPHILS ABSOLUTE COUNT (BEAKER) (test 4.35 K/ L 1.80-8.00 fdud=625) LYMPHOCYTES ABSOLUTE COUNT (BEAKER) (test 0.94 K/ L 1.48-4.50 cygh=631) MONOCYTES ABSOLUTE COUNT (BEAKER) (test 0.39 K/ L 0.00-1.30 rfta=142) EOSINOPHILS ABSOLUTE COUNT (BEAKER) (test 0.15 K/ L 0.00-0.50 lmve=219) BASOPHILS ABSOLUTE COUNT (BEAKER) (test 0.05 K/ L 0.00-0.20 zylx=310) 0.00
[2018-11-21] MEDS ORDERED: METOPROLOL TAR 25 MG TAB ONE (12:28)
--- NOTE | 2018-11-21 12:51 | RAD REPORT ---
EXAM DESCRIPTION: CT - Head Brain Wo Cont - 11/21/2018 12:41 pm CLINICAL HISTORY: right face numbness Headache, drowsiness COMPARISON: Head Brain Wo Cont dated 02/22/2017; HEAD BRAIN W O CONTRAST dated 07/10/2014 TECHNIQUE: All CT scans are performed using dose optimization technique as appropriate and may inclu de automated exposure control or mA/KV adjustment according to patient size. FINDINGS: No intracranial hemorrhage or extra-axial fluid collection. 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 Mild generalized brain atrophy.No areas of brain edema or evidence of midlin e shift. The paranasal sinuses and mastoids are clear. Right-sided ptysis bulbi is noted. The calvarium is int act. IMPRESSION: No acute intracranial abnormality.
--- NOTE | 2018-11-21 13:42 | RAD REPORT ---
EXAM DESCRIPTION: MRI - MRA Head Wo Cont - 11/21/2018 1:30 pm CLINICAL HISTORY: Numbness COMPARISON: None. TECHNIQUE: Magnetic resonance angiogram was performed. 3D MIPS reconstruction performed FINDINGS: The examination is limited secondary to motion artifact No gross abnormality of the anterior cerebral, middle cerebral, posterior cerebral, distal internal c arotid and basilar arteries . IMPRESSION: Limited examination without visualization of a gross abnormality
--- NOTE | 2018-11-21 13:54 | RAD REPORT ---
EXAM DESCRIPTION: MRI - Brain Wo Cont - 11/21/2018 1:30 pm CLINICAL HISTORY: Numbness COMPARISON: November 21, 2018 cat scan TECHNIQUE: Axial, sagittal, and coronal magnetic images of the brain were obtained. Contrast was not requested FINDINGS: Mild signal is present within periventricular white matter Diffusion-weighted/ADC mapping does not reveal evidence of acute infarction. The ventricles are normal caliber. An extra-axial fluid collection is not present The sinuses and mastoids are clear. IMPRESSION: Mild signal within periventricular white matter is nonspecific but may indicate ischemic changes secondary to small vessel disease
--- NOTE | 2018-11-21 14:29 | ER ---
Nurse's Notes [facility] Name: Yamile Brooke Age: 48 yrs Sex: Female : 1970 Arrival Date: 11/21/2018 Time: 11:03 Bed 18 Private MD: Vasile Schofield Diagnosis: Right facial numbness Presentation: 11/21 11:20 Presenting complaint: Patient states: yesterday evening noticed that bottom part of iw face was feeling numb after chewing gum, mostly on right side, tried to spit out water when brushing teeth this morning and it felt funny, also has metallic taste to tongue on right side, denies weakness to right side of body. 11:28 Transition of care: patient was not received from another setting of care. Onset of iw symptoms was November 20, 2018. Risk Assessment: Do you want to hurt yourself or someone else? Patient reports no desire to harm self or others. Initial Sepsis Screen: Does the patient meet any 2 criteria? No. Patient's initial sepsis screen is negative. Does the patient have a suspected source of infection?. Care prior to arrival: None. 11:28 Method Of Arrival: Ambulatory iw 11:28 Acuity: ARIE 3 iw Triage Assessment: 11:47 General: Appears in no apparent distress. comfortable, Behavior is cooperative, bp appropriate for age, anxious. Pain: Denies pain. EENT: Reports R FACE NUMBNESS. Neuro: Reports numbness R LOWER FACE. Cardiovascular: No deficits noted. Respiratory: No deficits noted. GI: No signs and/or symptoms were reported involving the gastrointestinal system. : No signs and/or symptoms were reported regarding the genitourinary system. Derm: No deficits noted. Musculoskeletal: No deficits noted. MANAGER PACKAGE: 11:27 LMP N/A - Hysterectomy iw Historical: - Allergies: 11:27 tramadol; iw - PMHx: 11:27 ADD/ADHD; Anemia; CHF; Diabetes - NIDDM; Dialysis; Tues, Thurs, Sat; ESRD; iw Hyperlipidemia; Hypertension; right arm blood clots; right eye blindness; - Immunization history:: Adult Immunizations up to date. - Ebola Screening: : Patient negative for fever greater than or equal to 101.5 degrees Fahrenheit, and additional compatible Ebola Virus Disease symptoms Patient denies exposure to infectious person Patient denies travel to an Ebola-affected area in the days before illness onset No symptoms or risks identified at this time. - Social history:: Smoking status: Patient/guardian denies using tobacco. Screenin:30 Abuse screen: Denies threats or abuse. Denies injuries from another. Nutritional bp screening: No deficits noted. Tuberculosis screening: No symptoms or risk factors identified. Fall Risk None identified. Assessment: 11:30 General: SEE TRIAGE NOTE. bp 12:30 Reassessment: PT TO RADIOLOGY WITH RFID SPECIALIST. bp 13:33 Reassessment: PT RETURNED FROM RAD, RESULTS PENDING. bp 14:38 Reassessment: PT D/C HOME AMBULATORY WITH FAMILY, DX WITH [facility] PALSY. bp Vital Signs: 11:27 BP 187 / 110; Pulse 101; Resp 16; Temp 98.1; Pulse Ox 99% on R/A; Weight 70.31 kg; iw Height 5 ft. 7 in. (170.18 cm); Pain 0/10; 12:05 BP 189 / 106; Pulse 92; Resp 18; Pulse Ox 100% ; bp 13:33 BP 172 / 98; Pulse 74; Resp 16; Pulse Ox 100% ; bp 14:39 BP 158 / 84; Pulse 62; Resp 17; Temp 98; Pulse Ox 100% ; bp 11:27 Body Mass Index 24.28 (70.31 kg, 170.18 cm) iw ED Course: 11:03 Patient arrived in ED. ag5 11:04 Vasile Schofield MD is Private Physician. ag5 11:28 Triage completed. iw 11:28 Heber Gandara, RN is Primary Nurse. bp 11:46 Arm band placed on. bp 11:49 Patient has correct armband on for positive identification. Placed in gown. Bed in low mh5 position. Call light in reach. Side rails up X 1. Adult w/ patient. Warm blanket given. assessment expert on. Pulse ox on. NIBP on. 12:05 London Rodriguez MD is Attending Physician. kdr 12:42 CT Head Brain wo Cont In Process Unspecified. EDMS 13:31 MRA Head Wo Cont In Process Unspecified. EDMS 13:31 Brain Wo Cont In Process Unspecified. EDMS 14:26 Abdiel Alcala MD is Referral Physician. kdr 14:39 No provider procedures requiring assistance completed. Patient did not have IV access bp during this emergency room visit. Administered Medications: 12:30 Not Given (Other Intervention Used): Lopressor 5 mg IVP once; Hold for SBP <100 or HR bp <60. Give in increments over 10 min 12:30 Drug: Lopressor 25 mg Route: PO; bp 14:46 Follow up: Response: Marked relief of symptoms bp Outcome: 14:28 Discharge ordered by . kdr 14:41 Discharged to home ambulatory, with family. bp 14:41 Condition: stable 14:41 Discharge instructions given to patient, Instructed on discharge instructions, follow up and referral plans. medication usage, Demonstrated understanding of instructions, follow-up care, medications, Prescriptions given X 1. 14:51 Patient left the ED. bp Signatures: Dispatcher [employer] EDMS London Rodriguez MD MD kdr Williams, Irene, RN RN Lexy Sullivan [facility] Heber Gandara RN RN bp Sivakumar Rust 5
--- NOTE | 2018-11-21 14:29 | EDPHYS ---
Physician Documentation [facility] Name: Yamile Brooke Age: 48 yrs Sex: Female : 1970 Arrival Date: 11/21/2018 Time: 11:03 Bed 18 Private MD: Vasile Schofield ED Physician London Rodriguez HPI: 11/21 18:40 This 48 yrs old Black Female presents to ER via Ambulatory with complaints of Numbness kdr Of Face. 18:40 The patient's problem is reported as paresthesias, in right side of face. Onset: The kdr symptoms/episode began/occurred suddenly, Last few days. 18:42 Onset: The symptoms/episode began/occurred suddenly, last night. Duration: This was a kdr single incident, The episode is continuous, the symptoms became persistent. Context: the episode(s) was witnessed, by family, symptoms became apparent Last night, occurred at home, occurred while the patient was at rest, Possible contributing factors include: Left eye blindness and facial asymmetry . The symptoms are alleviated by nothing. The symptoms are aggravated by food. Associated signs and symptoms: The patient has no apparent associated signs or symptoms. Severity of symptoms: At their worst the symptoms were mild in the emergency department the symptoms are unchanged. Patient's baseline: Neuro: alert and fully oriented, Motor: right-sided facial droop, Ambulation: walks without assistance, Speech: normal for age, The patient has a previous history of ESRD and DM, etc. The patient has not experienced similar symptoms in the past. The patient has not recently seen a physician. 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 - Ebola Screening: : Patient negative for fever greater than or equal to 101.5 degrees Fahrenheit, and additional compatible Ebola Virus Disease symptoms Patient denies exposure to infectious person Patient denies travel to an Ebola-affected area in the 21 days before illness onset No symptoms or risks identified at this time. - Social history:: Smoking status: Patient/guardian denies using tobacco. ROS: 18:42 Constitutional: Negative for fever, chills, and weight loss, Eyes: Negative for injury, kdr pain, redness, and discharge, ENT: Negative for injury, pain, and discharge, Neck: Negative for injury, pain, and swelling, Cardiovascular: Negative for chest pain, palpitations, and edema, Respiratory: Negative for shortness of breath, cough, wheezing, and pleuritic chest pain, Abdomen/GI: Negative for abdominal pain, nausea, vomiting, diarrhea, and constipation, Back: Negative for injury and pain, : Negative for injury, bleeding, discharge, and swelling, MS/Extremity: Negative for injury and deformity, Skin: Negative for injury, rash, and discoloration, Psych: Negative for depression, anxiety, suicide ideation, homicidal ideation, and hallucinations, Allergy/Immunology: Negative for hives, rash, and allergies, Endocrine: Negative for neck swelling, polydipsia, polyuria, polyphagia, and marked weight changes, Hematologic/Lymphatic: Negative for swollen nodes, abnormal bleeding, and unusual bruising. 18:42 Neuro: Positive for Right facial paresthesia. Exam: 18:42 Constitutional: This is a well developed, well nourished patient who is awake, alert, kdr and in no acute distress. Head/Face: Normocephalic, atraumatic. Eyes: Pupils equal round and reactive to light, extra-ocular motions intact. Lids and lashes normal. Conjunctiva and sclera are non-icteric and not injected. Cornea within normal limits. Periorbital areas with no swelling, redness, or edema. Neck: Trachea midline, no thyromegaly or masses palpated, and no cervical lymphadenopathy. Supple, full range of motion without nuchal rigidity, or vertebral point tenderness. No Meningismus. Chest/axilla: Normal chest wall appearance and motion. Nontender with no deformity. No lesions are appreciated. Cardiovascular: Regular rate and rhythm with a normal S1 and S2. No gallops, murmurs, or rubs. Normal PMI, no JVD. No pulse deficits. Respiratory: Lungs have equal breath sounds bilaterally, clear to auscultation and percussion. No rales, rhonchi or wheezes noted. No increased work of breathing, no retractions or nasal flaring. Abdomen/GI: Soft, non-tender, with normal bowel sounds. No distension or tympany. No guarding or rebound. No evidence of tenderness throughout. Back: No spinal tenderness. No costovertebral tenderness. Full range of motion. Skin: Warm, dry with normal turgor. Normal color with no rashes, no lesions, and no evidence of cellulitis. MS/ Extremity: Pulses equal, no cyanosis. Neurovascular intact. Full, normal range of motion. Psych: Awake, alert, with orientation to person, place and time. Behavior, mood, and affect are within normal limits. 18:42 Neuro: Orientation: is normal, Mentation: is normal, Memory: is normal, Cranial nerves: grossly normal, no acute changes, Cerebellar function: is grossly normal based on the patient's age, Motor: is grossly normal based on the patient's age, Sensation: no obvious gross deficits, Gait: appropriate for age. 18:47 Radiologist reports: Negative kdr Vital Signs: 11:27 BP 187 / 110; Pulse 101; Resp 16; Temp 98.1; Pulse Ox 99% on R/A; Weight 70.31 kg; iw Height 5 ft. 7 in. (170.18 cm); Pain 0/10; 12:05 BP 189 / 106; Pulse 92; Resp 18; Pulse Ox 100% ; bp 13:33 BP 172 / 98; Pulse 74; Resp 16; Pulse Ox 100% ; bp 14:39 BP 158 / 84; Pulse 62; Resp 17; Temp 98; Pulse Ox 100% ; bp 11:27 Body Mass Index 24.28 (70.31 kg, 170.18 cm) iw MDM: 14:28 Patient medically screened. kdr 18:42 Data reviewed: vital signs, nurses notes, lab test result(s), radiologic studies. kdr Counseling: I had a detailed discussion with the patient and/or guardian regarding: the historical points, exam findings, and any diagnostic results supporting the discharge/admit diagnosis, lab results, radiology results, the need for outpatient follow up. Physician consultation: Abdiel Alcala MD regarding consult, patient's condition, and will see patient in office, in 2-3 days. 11/21 12:17 Order name: CT Head Brain wo Cont; Complete Time: 13:19 kdr 11/21 12:35 Order name: MRA Head Wo Cont; Complete Time: 13:48 EDMS 11/21 12:36 Order name: Brain Wo Cont; Complete Time: 14:20 EDMS Administered Medications: 12:30 Not Given (Other Intervention Used): Lopressor 5 mg IVP once; Hold for SBP <100 or HR bp <60. Give in increments over 10 min 12:30 Drug: Lopressor 25 mg Route: PO; bp 14:46 Follow up: Response: Marked relief of symptoms bp Disposition: 11/21/18 14:28 Discharged to Home. Impression: Right facial numbness. - Condition is Stable. - Discharge Instructions: [place]man Palsy, Adult, Paresthesia, [id number]. - Prescriptions for Prednisone 20 mg Oral Tablet - take 1 tablet by ORAL route every 12 hours for 5 days; 10 tablet. - Medication Reconciliation Form, Thank You Letter, Antibiotic Education form. - Follow up: Abdiel Alcala MD; When: 2 - 3 days; Reason: If symptoms return, Further diagnostic work-up, Recheck today's complaints, Continuance of care, Re-evaluation by your physician. - Problem is new. - Symptoms are unchanged. - Notes: Take Aspirin 81 mg by mouth each day and follow up with neurology. Signatures: Dispatcher [employer] [facility] London Rodriguez MD MD kdr Ania Gonsalves, MILA RN iw Heber Gandara, MILA RN bp Corrections: (The following items were deleted from the chart) 12:35 12:17 MR STROKE PROTOCOL+MRI.RAD.BRZ ordered. [facility] 14:51 14:28 11/21/2018 14:28 Discharged to Home. Impression: Right facial numbness. Condition bp is Stable. Forms are Medication Reconciliation Form, Thank You Letter, Antibiotic Education, Prescription Opioid Use. Follow up: Abdiel Alcala; When: 2 - 3 days; Reason: If symptoms return, Further diagnostic work-up, Recheck today's complaints, Continuance of care, Re-evaluation by your physician. Problem is new. Symptoms are unchanged. kdr
[2018-11-21] MEDS ORDERED: ASPIRIN 81 MG CHEWABLE TABLET ONE (14:35)
[2018-11-21 15:05] VITALS: O2SAT 100
[2018-11-21 15:07] VITALS: BP 158/84; TEMP 98
== END 2018-11-21 14:51 | disposition home or self-care (01) ==
LOC: ER 11:01
DX: R20.0 Anesthesia of skin (principal); E11.22 Type 2 diabetes mellitus with diabetic chronic kidney disease; I13.2 Hypertensive heart and chronic kidney disease with heart failure and with stage 5 chronic kidney disease, or end stage renal disease; I50.9 Heart failure, unspecified; N18.6 End stage renal disease; Z99.2 Dependence on renal dialysis
CPT/HCPCS: 70450; 70544; 70551; 99284

== ENCOUNTER 2019-10-02 18:59 | Inpatient (IN) | payer OTHER ==
--- OUTSIDE RECORDS SUMMARY | 2019-10-02 19:02 | XMS REPORT | Clinical Summary ---
:1970 Author Organization [facility] Address [address] [place] [address] Care Team Providers Name Role Phone Gilbert Schofield MD Primary Care Provider Wilber Navas Unavailable Allergies Active Allergy Reactions Severity Noted Date Comments Tramadol Nausea And Vomiting, Other (See 7 dizziness Comments) Medications Medication Sig Dispensed Refills Start Date End Date Status calcitriol (ROCALTROL) Take 0.25 mcg by 0 Active 0.25 MCG capsule mouth daily. valsartan (DIOVAN) 160 Take 160 mg by 0 Active MG tablet mouth daily. melatonin 3 mg [...] apixaban (ELIQUIS) 5 Take 5 mg by mouth 0 Active mg Tab tablet 2 (two) times daily. Active Problems Problem Noted Date Anemia [...] Overview: Cath 06/03: LAD:Non critical CAD: mid 40 % , 60% distal //dominant L Cx with 90 % mid-, 80% OM2 and OM3 disease); s/p mid LCx PCI (06/06) Encounters Date Type Specialty Care Team Description 10/02/2019 Telephone Transplant Marie Laureano (I called Miss Brooke t o give her new appt da gene and per Miss Taylor ll she would prefer to have her testing don e by her house it wi ll be easier for her because she is vision impaired. She's aware of her appts 10.30.2019 to s ee the doctor and cons ults); Appointment (I explained to e patient that I would email her coord nohemy Ortega to con tact her PCP to have her testing schedul e near her home.) 10/01/2019 Telephone Transplant Marie Laureano (Ms. Brooke is karol re I will reschedule her missed and her appts on Monday pe r pts request. Pt karol re I will call her b ack with her new ap pt dates) 09/27/2019 Social Work Transplant Maicol Coy LCSW 09/20/2019 Hospital Encounter Radiology Darryl López No Aroldo Martins MD 09/16/2019 Documentation Transplant Marie Laureano 09/02/2019 Telephone Transplant Marie Laureano (Miss Brooke is karol re of her appt dates and I have emailed e itinerary to e patient and fax ed to the hd unit) 08/01/2019 Abstract Transplant Alessia Rios 07/24/2019 Office Visit Transplant Araceli Reid P, ESRD (end stage renal disease) (HCC) (Primary Dx); RN Type 2 diabetes mellitus with complication (HCC); Essential hyper tension; Chronic hepatit is C without hepatic coma (HCC); Ischemic cardio myopathy; History of DVT (deep vein thrombosis); Pre-transplant evaluation for chronic kidney disease 07/10/2019 Telephone Transplant Sara Shields Appointment ( Patient called to give updated Medicare ID. ID updated in [employer] . Patient also sc heduled for 07/23 renal txp education and c onsent class. Her info rmation for the class w as sent.) 07/05/2019 Abstract Transplant Alessia Rios 07/05/2019 Abstract Transplant Alessia Rios 06/18/2019 Documentation Transplant Araceli Reid RN after 10/01/2018 Social History Tobacco Use Types Packs/Day Years Used Date Never Smoker Smokeless Tobacco: Never Used Alcohol Use Drinks/Week oz/Week Comments No Sex Assigned at Date Recorded Not on file Job Start Date Occupation Industry Not on file Not on file Not on file Travel History Travel Start Travel End No recent travel history available. Last Filed Vital Signs Vital Sign Reading Time Taken Blood Pressure - - Pulse - - Temperature - - Respiratory Rate - - Oxygen Saturation - - Inhaled Oxygen Concentration - - Weight 68 kg (150 lb) 07/05/2019 11:48 AM CDT Height 172.7 cm (5' 8") 07/05/2019 11:48 AM CDT Body Mass Index 22.81 07/05/2019 11:48 AM CDT Plan of Treatment Date Type Specialty Care Team Description 10/30/2019 Orders Only Transplant Hepatology Darryl López MD [address] [address] 10/30/2019 Evaluation Transplant Darryl López MD [address] [address] 10/30/2019 Evaluation Transplant Darryl López MD [address] [address] 10/30/2019 Evaluation Transplant Darryl López MD [address] [address] Health Maintenance Due Date Last Done Comments PNEUMOCOCCAL VACCINE 2-64 YEARS AT RISK (1 1977 of 3 - PCV13) DIABETIC EYE EXAM 1981 DIABETIC FOOT EXAM 1981 URINE MICROALBUMIN 1981 CERVICAL CANCER SCREENING PAP ONLY (Age 1101/17/1992 21-65) HEMOGLOBIN A1C 08/24/2017 02/23/2017, 01/03/2017 INFLUENZA VACCINE (#1) 2019 Implants Implanted Type Area Maintenance Controller Device Shelf Model / Identifier Expiration Serial / Date Lot Closure Sys Perclose Progl 6fr [id number] - [id number] Cardiovascul ar N/A: Groin BOWENS 12/10/2017 [id number] / Implanted: Qty: 1 on 06/06/2016 by Robinson Vigil MD LAB:VASC DEV / [id number] Promus Premier Stents-Coronary N/A: [place] 8 [id number] / Implanted: Qty: 1 on 06/06/2016 by Robinson Vigil MD Coronary SCIENTIFIC / [id number] Synergy Stent 2.5mm X 16mm [place] 08/2017 [id number] / Implanted: Qty: 1 on 06/03/2016 by Robinson Vigil MD SCIENTIFIC / [id number] Perclose Proglide Closure Device BOWENS 12/10/2017 [id number] / Implanted: Qty: 1 on 06/03/2016 by Robinson Vigil MD VASCULAR / DEVICE [id number] Results Not on fileafter 10/01/2018 Insurance Payer Benefit Plan / Group Subscriber ID Type Phone A ddress MEDICARE MEDICARE A B xxxxxxxxxxx Medicare MEDICAID MEDICA[place] xxxxxxxxx Medicaid Advance Directives For more information, please contact:[address] [phone] Code Status Date Activated Date Inactivated Comments [...]
--- OUTSIDE RECORDS SUMMARY | 2019-10-02 19:09 | XMS REPORT | Continuity of Care Document ---
:1970 Author Organization [facility] t Address [address] [place] [address] Care Team Providers Name Role Phone UNKNOWN Primary Care Physician Unavailable Georgi Attending Clinician Unavailable Zbigniew ARROYO Attending Clinician Unavailable Eliezer López MD Attending Clinician Gabriel Attending Clinician Unavailable Jeanette ZARAGOZA P Attending Clinician Unavailable Cornelius Attending Clinician Unavailable Rin Albarado Attending Clinician BRY CONNORS M.D. Attending Clinician Unavailable TOMASA Attending Clinician Unavailable ERNESTO THORPE Attending Clinician Unavailable JOSE DE JESUS Attending Clinician Unavailable Sara Davis Attending Clinician Benjamin Smith Attending Clinician William Warren Attending Clinician Malik Ku Attending Clinician Montrell Pulliam Attending Clinician BRY CONNORS M.D., A Admitting Clinician Unavailable TOMASA Admitting Clinician Unavailable ERNESTO THORPE Admitting Clinician Unavailable JOSE DE JESUS Admitting Clinician Unavailable Payers Payer Name Policy Policy Number Effective Expiration Source Type Date Date MEDICAREMEDICARE A xxxxxxxxxxx [facility] OF xxxxxxxxx [facility] [place] [facility] Problems Condition Condition Condition Status Onset Resolution Last Treating Co mments Source Name Details Category Date Date Treatment Clinician Date PERFORATED Diagnosis Active 2019-04-19 Memoria CORNEAL 2 11:44:00 l ULCER, 00:00: Yovani LEFT EYE PERFORATED 00 CORNEAL ULCER, LEFT EYE Active 04/18/2019 [facility] Anemia Anemia Disease Active 2016-[address] [facility] Hydrocepha Hydrocepha Disease Active 2016-[address] eliot eliot 2-14 [facility] History of History of Disease Active 2016-[address] DVT (deep DVT (deep 2-13 [facility] - vein vein 00:00: Medical thrombosis thrombosis 00 Ce nter ) ) Headache Headache Disease [facility] 2016[facility] Dizziness Dizziness Disease Active 2016-[address] [facility] [facility] Nausea & Nausea & Disease Active 2016-03 [facility] 2[facility] AVF AVF Disease Active 2016-03 Overview: [facility] (arteriove (arteriove 1-15 Left-10/3 [facility] - nous nous 00:00: 0 Medical fistula) fistula) 00 Center Ischemic Ischemic Disease Active 2016-03 [facility] cardiomyop cardiomyop 0-23 [facility] - athy athy 00:00: Medical 00 Center Chronic Chronic Disease Active [facility] 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 [facility] - C without C without 00:00: Medi socorro hepatic hepatic 00 Center coma coma Type 2 Type [address] [facility] diabetes diabetes 3-24 [facility] - mellitus mellitus 00:00: Medica l with with 00 Center complicati complicati on on Essential Essential Disease Active [facility] hypertensi hypertensi 3-24 [facility] - on on 00:00: Medical 00 Center NOSE BLEED Diagnosis Active 2015-08-05 Memoria 5-25 17:41:00 l NOSE 00:00: Yovani BLEED 00 Active 08/05/2015 [facility] Yovani UNK Diagnosis Active 2015-08-21 Mem oria 4-18 14:28:00 l UNK 00:00: [place] 00 Active 06/29/2015 [facility] VOMITING/C Diagnosis Active 2015-06-17 Memoria HILLS 4-06 12:30:00 l 00:00: Yovani VOMITING/C HILLS Active 06/17/2015 [facility] VOMITING Diagnosis Active 2014-09-01 M emoria 08-29 13:41:00 l VOMITING 00:00: Myles n 00 Active 08/29/2014 [facility] CAD CAD Disease Active Overview: [facility] (coronary (coronary Cath [facility] - artery artery 06/03: Medical disease) disease) LAD:Non Cente r critical CAD: mid 40% , 60% distal //dominan t L Cx with 90 % mid-, 80% OM2 and OM3 disease); s/p mid LCx PCI (06/06) Diabetes Problem Resolve 2019-04-21 Me moria mellitus d 23:42:23 l (disorder) Diabetes He rmann mellitus (disorder) Resolved Problem 04/21/2019 [facility], [facility], KAYLYN Squires,[facility] History of Problem Resolve 2019-04-21 Memoria - migraine d 23:42:23 l (context-d History Her hollis ependent of - category) migraine (context-d ependent category) Resolved Problem 04/21/2019 [facility], KAYLYN Squires,[facility] Heartburn Problem Resolve 2019-04-21 M emoria (finding) d 23:42:23 l [place] Heartburn (finding) Resolved Problem 04/21/2019 [facility], [place],[facility], KAYLYN Silvaland Hypertensi Problem Resolve 2019-04-21 Memoria ve d 23:42:23 l disorder, Yovani systemic Hypertensi arterial ve (disorder) disorder, systemic arterial (disorder) Resolved Problem 04/21/2019 [facility], KAYLYN Squires,[facility] Dyspnea Problem Resolve 2019-04-21 Mem oria (finding) d 23:42:23 l Dyspnea [place] (finding) Resolved Problem 04/21/2019 [facility], KAYLYN Squires End stage Problem Active 2019-04-21 Me moria renal 23:42:23 l disease End [place] (disorder) stage renal disease (disorder) Active Problem 04/21/2019 [facility] Sara Squires [facility], KAYLYN [place] Discharge Problem 2015-06-20 2015-06-20 Memoria Diagnosis: -06 03:51:39 03:51:39 l N&V 05:00: Yovani (nausea Discharge 00 and Diagnosis: vomiting) N&V (nausea and vomiting) 06/17/2015 06/20/2015 [facility] Discharge Problem 2014-09-01 2014-09-01 Memoria Diagnosis: 6- 11:15:55 11:15:55 l Acute 05:00: Yovani headache Discharge 00 Diagnosis: Acute headache 5 09/01/2014 [facility] Allergies, Adverse Reactions, Alerts Allergy Allergy Status Severity Reaction(s) Onset Inactive Treating Comm ents Source Name Type Date Date Clinician Tramadol Drug Active Nausea And [address] Intolera Vomiting, 06-06 [facility] - nce Other (See 00:00: Medica l Comments) 00 Center traMADol traMADol Active Alex Pina Social History Social Habit Start Date Stop Date Quantity Comments Source Sex Assigned At [facility] Social History 2015-06-17 2015-06-17 [facility] escobar 16:48:19 16:48:19 Smoking Status Start Date Stop Date Source Never smoker [facility] Medications Ordered Filled Start Stop Current Ordering Indication Dosage Frequency Signature Comments Components Source Medication Medication Date Date Medication? Clinician (SIG) Name Name Hydralazine 2020-0 No 10 mg, Juan Manuel héctor 04-19 Route: l 21:10: IVP, [place] 00 Q20Min, Dosing Weight 70.9, kg, PRN Elevated BP, Start date: 04/19/19 15:10:00 [employer], Duration: 2 doses or times, Stop date: Limited # of times Labetalol 2020-0 No 10 mg, Memori a 2-07 Route: l 21:10: IVP, [place] 00 Q5Min, Dosing Weight 70.9, kg, PRN Elevated BP, Start date: 04/19/19 15:10:00 [employer], Duration: 5 doses or times, Stop date: Limited # of times Acetaminoph 2020-0 No 1,000 mg, M emoria en 04-19 Route: PO, l 21:10: Drug form: Yovani 00 TAB, ONCE, Dosing Weight 70.9, kg, PRN Pain Score 1-3, Start date: 04/19/19 15:10:00 [employer] Oxycodone 2020-0 No 5 mg, Memoria Hydrochlori 2-07 Route: PO, l de 5 MG 21:10: Drug form: Herm fabricio Oral Tablet 00 TAB, Q4H, Dosing Weight 70.9, kg, PRN Pain Score 4-6, Start date: 04/19/19 15:10:00 [employer], Duration: 30 day, Stop date: 05/19/19 15:09:00 CDT Hydromorpho 2020-0 No 0.5 mg, Mem oria ne 2- Route: l 21:10: IVP, [place] 00 Q5Min, Dosing Weight 70.9, kg, PRN Pain Score 7-10, Start date: 04/19/19 15:10:00 [employer], Duration: 4 doses or times, Stop date: Limited # of times Flumazenil 2020-0 No 0.2 mg, Juan Manuel héctor 2- Route: l 21:10: IVP, PRN, [place] 00 Dosing Weight 70.9, kg, PRN Benzodiaze pine Reversal, Initial dose, Start date: 04/19/19 15:10:00 [employer], Duration: 30 day, Stop date: 05/19/19 16:09:00 CDT Naloxone 2020-0 No 0.4 mg, Memori a 2- Route: l 21:10: IVP, [place] 00 Q2MIN, Dosing Weight 70.9, kg, PRN Narcotic Reversal, Start date: 04/19/19 15:10:00 [employer], Duration: 8 doses or times, Stop date: Limited # of times Ondansetron 2020-0 No 4 mg, Memor ia 2- Route: l 21:10: IVP, ONCE, [place] 00 Dosing Weight 70.9, kg, PRN Nausea & Vomiting, Start date: 04/19/19 15:10:00 [employer] ondansetron 2020-0 No Route: IV, Memoria (ANES) 2 Drug form: l 20:55: INJ, ONCE, Yovani Stop date: 04/19/19 14:55:00 [employer] glycopyrrol 2020-0 No Route: IV, Memoria ate (ANES) 2- Drug form: l 20:55: INJ, ONCE, Stop date: 04/19/19 14:55:00 [employer] neostigmine 2020-0 No Route: IV, Memoria (ANES) 2- Drug form: l 20:55: INJ, ONCE, Stop date: 04/19/19 14:55:00 [employer] dexamethaso 2020-0 No Route: IV, Memoria ne (ANES) 2 Drug form: l 20:27: INJ, ONCE, Stop date: 04/19/19 14:27:00 [employer] lidocaine 2020-0 No Route: IV, Me moria (ANES) 2 Drug form: l 20:22: INJ, ONCE, Stop date: 04/19/19 14:22:00 [employer] propofol 2020-0 No Route: IV, Mem oria (ANES) 04-19 Drug form: l 20:22: INJ, ONCE, Stop date: 04/19/19 14:22:00 [employer] rocuronium 2020-0 No Route: IV, M emoria (ANES) 04-19 Drug form: l 20:22: INJ, ONCE, Stop date: 04/19/19 14:22:00 [employer] fentaNYL 2020-0 No Route: IV, Mem oria (ANES) 2- Drug form: l 20:22: INJ, ONCE, Stop date: 04/19/19 14:22:00 [employer] ePHEDrine 2020-0 No Route: IV, Me moria (ANES) 2- Drug form: l 20:22: INJ, ONCE, Stop date: 04/19/19 14:22:00 [employer] phenylephri 2020-0 No Route: IV, Memoria ne (ANES) 2 Drug form: l 20:22: INJ, ONCE, Stop date: 04/19/19 14:22:00 [employer] Sodium 2020-0 No Route: IV, Memor ia Chloride 2- Total l 0.9% IV 19:17: Volume: Yovani (ANES) 500 00 500, Start mL date: 04/19/19 13:17:00 [employer], Stop date: 04/19/19 14:17:00 [employer] Home Yes Refill(s) Memoria Medication 2-07 0 l 18:38: gabapentin Yes PO, 0 Memori a 2-07 Refill(s) l 18:38: apixaban 2016-03 Yes 5mg Q.5D Take [address] [facility] (ELIQUIS) 5 2-14 by mouth 2 [facility] - mg Tab 13:21: (two) Medical tablet 58 times Center daily. melatonin 3 2016-03 Yes 3mg Take [address] [facility] mg Tab 1-15 tablet (3 [facility] - tablet 00:00: mg total) Medica l 00 by mouth Center every night as needed. VELPHORO 2016-03 Yes 1{tbl} Q.5D Take 1 [facility] mg Chew 1-03 tablet by Jun es - 00:00: mouth 2 Medical 00 (two) Center times daily . SENSIPAR 30 2016-03 Yes 30mg QD Take [address] [facility] mg tablet 0-03 by mouth [facility] - 00:00: daily . [facility] 00 [place] calcitriol Yes .25ug QD Take 0.[address] (ROCALTROL) 3-24 mcg by [facility] - 0.25 MCG 11:29: mouth Medical capsule 01 daily. [place] valsartan Yes 160mg QD Take [address] (DIOVAN) 3-24 mg by [facility] - 160 MG 11:29: mouth Medical tablet 01 daily. [place] Hydromorpho No 0.3 mg, Mem oria ne 4-20 0.3 mL, l 20:49: Route: IVP, Drug form: INJ, Q3H, Dosing Weight 86.364, kg, PRN Pain Score 4-6, Start date: 07/01/15 15:49:00 CDT, Duration: 30 day, Stop date: 07/31/15 15:48:00 CDT Promethazin No 6.25 mg, Me moria e 4-20 Route: l 20:39: IVPB, ONCE, Dosing Weight 94.119, kg, PRN Nausea & Vomiting, Start date: 07/01/15 15:39:00 CDT Flumazenil No Notes: Memor ia 4-20 (Same as: l 20:39: Romazicon) Glycopyrrol No Notes: Juan Manuel héctor ate 4-20 (Same as: l 20:39: Robinul) Diphenhydra No Notes: Juan Manuel héctor mine 4-20 (Same as: l 20:39: Benadryl) Dexamethaso No Notes: Juan Manuel héctor ne 4-20 Concentrat l 20:39: ion: 4mg/ml Ondansetron No 4 mg, Memor ia 4-20 Route: l 20:39: IVP, ONCE, Dosing Weight 94.119, kg, PRN Nausea & Vomiting, Start date: 07/01/15 15:39:00 CDT Naloxone No Notes: Memoria 4-20 Same as l 20:39: Narcan Metoprolol No Notes: Memor ia 4-20 (Same as: l 20:39: Lopressor) Push over 2 minutes Hydralazine No Notes: Juan Manuel héctor 4-20 (Same as: l 20:39: Apresoline ) Push over 5 minutes Meperidine No Notes: Memor ia 4-20 (Same as: l 20:39: Demerol) "Use Precaution in Elderly, Seizure disorders, and Renal impairment " Morphine No Notes: Memoria 4-20 (Same l 20:39: as:MORPhin e Sulfate) Hydromorpho No 0.5 mg, Mem oria ne 4-20 0.5 mL, l 20:39: Route: IVP, Drug form: INJ, Q5Min, Dosing Weight 94.119, kg, PRN Pain Score 7-10, Start date: 07/01/15 15:39:00 CDT, Duration: 4 doses or times, Stop date: Limited # of times Fentanyl No Notes: Memoria 4-20 (Same as: l 20:39: Sublimaze) Preservat rocco free. Oxycodone No Notes: Memori a 4-20 (Same as: l 20:39: Roxicodone ) Ketorolac 2016-0 No 4 days Memor ia 4-20 l 20:39: MEDICATION [place] 00 WASTE Product Size: 30 mg Product Wasted: ___ mg Zofran 2015- No 4 mg, Memoria 4-20 Route: l 17:20: IVP, ONCE, Yovani 00 Dosing Weight 94.119, kg, Start date: 07/01/15 12:20:00 CDT, Stop date: 07/01/15 12:20:00 CDT Sodium 2016-0 No 500 mL, Memoria Chloride 4-20 Rate: 25 l 0.154 15:21: ml/hr, Yoavni MEQ/ML 00 Infuse Injectable over: 20 Solution hr, Route: IV, Dosing Weight 94.119 kg, Total Volume: 500, Start date: 07/01/15 10:21:00 CDT, Duration: 1 day, Stop date: 07/02/15 10:20:00 CDT Calcium 2016-0 No 1,000 mL, Memor ia Chloride 20 Rate: 25 l 0.0014 15:21: ml/hr, Yovani MEQ/ML / 00 Infuse Potassium over: 40 Chloride hr, Route: 0.004 IV, Dosing MEQ/ML / Weight Sodium 94.119 kg, Chloride Total 0.103 Volume: MEQ/ML / 1,000, Sodium Start Lactate date: 0.028 07/01/15 MEQ/ML 10:21:00 Injectable CDT, Solution Duration: 30 day, Stop date: 07/31/15 10:20:00 CDT Ancef No Notes: Memoria 4-20 Same as: l 12:00: Ancef Vancomycin 2016-0 No 2001 mg: Me moria 4-20 infuse l 12:00: over 2.5 Yovani 00 hours MEDICATION WASTE Product Size: 1000 mg Product Wasted: ___ mg Aspirin 81 2016-0 Yes 81 mg = 1 Me moria MG Enteric 4-19 tab, PO, l Coated 18:20: Daily, # Yovani Tablet 00 90 tab, 3 Refill(s) NovoLOG 2016-0 Yes SUB-Q, Memoria 70/30 4-19 ONCE, 0 l 18:19: Refill(s) [place] 00 Hydralazine Yes 0 Memori a 4-19 Refill(s) l 18:19: Yovani 00 metoprolol Yes BID, 0 Memor ia tartrate 4-19 Refill(s) l 18:19: Yovani 00 Ondansetron Yes 8 mg = 1 Me moria 8 MG Oral 4-19 tab, PO, l Tablet 18:19: BID, 0 [place] [Zofran] 00 Refill(s) Furosemide Yes 40 mg = 1 Me moria 40 MG Oral 4-19 tab, PO, l Tablet 18:19: Daily, 0 [place] 00 Refill(s) Ondansetron Yes 8 mg = 1 Me moria 8 MG 4-06 tab, PO, l Disintegrat 17:47: TID, PRN He rmann ing Tablet 00 Nausea and [Zofran] Vomiting, Dissolve tab under tongue, X 4 day, # 20 tab, 0 Refill(s) Sodium No 1,000 mL, Memori a Chloride 06-16 1,000 l 0.154 16:40: ml/hr, Yovani MEQ/ML 00 Infuse Injectable Over: 1 Solution hr, Route: IV, 1,000, Drug form: INJ, ONCE, Priority: STAT, Dosing Weight 86.364 kg, Start date: 06/17/15 11:40:00, Duration: 1 doses or times, Stop date: 06/17/15 11:40:00 Ondansetron No Notes: Juan Manuel héctor 06-16 (Same as: l 16:40: Zofran) Yovani 00 MEDICATION WASTE Product Size: 4 mg Product Wasted: ___ mg Morphine No Notes: Memoria 06-16 (Same l 16:40: as:MORPhin Yovani 00 e Sulfate) Acetaminoph No Special Mem oria en 300 MG / 6-19 Instructio l butalbital 21:16: ns: Do not H ermann 50 MG / 00 exceed 6 Caffeine 40 capsules MG Oral in 24 Capsule hours [Fioricet] methylPREDN No Notes: Juan Manuel héctor ISolone 08-29 (Same l SODium 20:39: as:Solu-ME Deepika nn SUCCinate 00 DROL, A-Methapre d) Benadryl No Notes: Memoria 08-29 (Same as: l 20:38: Benadryl) [place] 00 Sodium No 1,000 mL, Memori a Chloride 08-29 1,000 l 0.154 20:38: ml/hr, Yovani MEQ/ML 00 Infuse Injectable Over: 1 Solution hr, Route: IV, 1,000, Drug form: INJ, ONCE, Priority: STAT, Dosing Weight 86.364 kg, Start date: 08/29/14 15:38:00, Duration: 1 doses or times, Stop date: 08/29/14 15:38:00 Reglan No Notes: Memoria 08-29 (Same as: l 20:38: Reglan) Yovani Vital Signs Vital Name Observation Time Observation Value Comments Source Body height 2019-07-05 11:48:00 172.7 cm [facility] Body weight Measured 2019-07-05 11:48:00 68.04 kg [facility] BMI 2019-07-05 11:48:00 22.81 kg/m2 [facility] Respitory Rate 2019-04-19 21:57:00 Memori al [place] Systolic (mm Hg) 2019-04-19 21:57:00 Juan Manuel rial [place] Diastolic (mm Hg) 2019-04-19 21:57:00 Mem orial [place] Respitory Rate 2019-04-19 21:45:00 Memori al [place] Systolic (mm Hg) 2019-04-19 21:45:00 Juan Manuel rial [place] Diastolic (mm Hg) 2019-04-19 21:45:00 Mem orial Yovani Respitory Rate 2019-04-19 21:30:00 Memori al [place] Systolic (mm Hg) 2019-04-19 21:30:00 Juan Manuel rial Yovani Diastolic (mm Hg) 2019-04-19 21:30:00 Mem orial [place] Heart Rate 2019-04-19 18:39:00 [facility] Height 2019-04-19 18:24:00 170.18 cm [facility] Weight 2019-04-19 18:24:00 [facility] BMI Calculated 2019-04-19 18:24:00 Memori al [place] BMI Calculated 2015-08-05 22:10:00 Memori al [place] Height 2015-08-05 22:10:00 172.72 cm [facility] [place] Weight 2015-08-05 22:10:00 [facility] Y[place]ani Temperature Oral (F) 2015-08-05 22:10:00 97.7 F [facility] [place] Heart Rate 2015-08-05 22:10:00 [facility] [place] Respitory Rate 2015-08-05 22:10:00 Memori al [place] Systolic (mm Hg) 2015-08-05 22:10:00 Juan Manuel rial [place] Diastolic (mm Hg) 2015-08-05 22:10:00 Mem orial [place] Respitory Rate 2015-07-01 23:00:00 Memori al Yovani Systolic (mm Hg) 2015-07-01 23:00:00 Juan Manuel rial [place] Diastolic (mm Hg) 2015-07-01 23:00:00 Mem orial [place] Respitory Rate 2015-07-01 22:45:00 Memori al [place] Systolic (mm Hg) 2015-07-01 22:45:00 Juan Manuel rial Yovani Diastolic (mm Hg) 2015-07-01 22:45:00 Mem orial [place] Systolic (mm Hg) 2015-07-01 22:15:00 Juan Manuel rial Yov[place] Diastolic (mm Hg) 2015-07-01 22:15:00 Mem orial [place] Respitory Rate 2015-07-01 22:15:00 Memori al [place] Temperature Oral (F) 2015-07-01 12:08:00 98.2 F [facility] [place] Heart Rate 2015-07-01 12:08:00 [facility] Yovani BMI Calculated 2015-06-30 18:01:00 Memori al [place] Height 2015-06-30 18:01:00 170.18 cm [facility] Y[place]ani Weight 2015-06-30 18:01:00 [facility] [place] Heart Rate 2015-06-17 18:10:00 [facility] [place] Temperature Oral (F) 2015-06-17 18:10:00 98.0 F [facility] [place] Respitory Rate 2015-06-17 18:10:00 Memori al [place] Systolic (mm Hg) 2015-06-17 18:10:00 Juan Manuel rial Yov[place] Diastolic (mm Hg) 2015-06-17 18:10:00 Mem orial [place] Weight 2015-06-17 16:43:00 [facility] [place] Heart Rate 2015-06-17 16:43:00 [facility] [place] Respitory Rate 2015-06-17 16:43:00 Memori al Yovani Systolic (mm Hg) 2015-06-17 16:43:00 Juan Manuel rial Yov[place] Diastolic (mm Hg) 2015-06-17 16:43:00 Mem orial Yovani BMI Calculated 2015-06-17 16:43:00 Memori al [place] Height 2015-06-17 16:43:00 172.72 cm [facility] Yovani Temperature Oral (F) 2015-06-17 16:43:00 98.2 F [facility] [place] Systolic (mm Hg) 2014-08-29 23:51:00 Juan Manuel rial [place] Diastolic (mm Hg) 2014-08-29 23:51:00 Mem orial Yovani Temperature Oral (F) 2014-08-29 23:51:00 98.3 F [facility] [place] Heart Rate 2014-08-29 23:51:00 [facility] [place] Respitory Rate 2014-08-29 23:51:00 Memori al Yovani Respitory Rate 2014-08-29 22:20:00 Memori al [place] Heart Rate 2014-08-29 22:20:00 [facility] [place] Systolic (mm Hg) 2014-08-29 22:20:00 Juan Manuel rial [place] Diastolic (mm Hg) 2014-08-29 22:20:00 Mem orial Yovani Weight 2014-08-29 20:01:00 [facility] [place] BMI Calculated 2014-08-29 20:01:00 Memori al [place]ov[place] Heart Rate 2014-08-29 20:01:00 [facility] [place] Respitory Rate 2014-08-29 20:01:00 Memori al [place] Systolic (mm Hg) 2014-08-29 20:01:00 Juan Manuel rial [place] Diastolic (mm Hg) 2014-08-29 20:01:00 Mem orial Yovani Temperature Oral (F) 2014-08-29 20:01:00 98.3 F [facility] [place] Height 2014-08-29 20:01:00 172.72 cm [facility] [place] Procedures Procedure Date / Time Performed Performing Clinician Sourc e Cholecystectomy 2014-03-13 00:00:00 [facility] Plan of Care Planned Activity Planned Date Details Comments Source Future Scheduled 2019-11-12 INFLUENZA VACCINE (#1) [facility]:00 [code = INFLUENZA Medical Ce nter VACCINE (#1)] Future Scheduled 2017-08-[address] [facility] [address] Brittany kes - Test 00:00:00 measurement Medical Center (procedure) [code = 80364085] Future Scheduled 1992-01-[address] [facility] - Test 00:00:00 malignant neoplasm of Medica l Center cervix (procedure) [code = 691498613] Future Scheduled [address] DIAB[address]IC EYE EXAM [facility] - Test 00:00:00 [code = DIABETIC EYE Medical Center EXAM] Future Scheduled [address] [facility] - Test 00:00:00 examination Medical Center (regime/therapy) [code = 220522738] Future Scheduled 1981 Urine screening for [facility] - Test 00:00:00 protein (procedure) Medical Center [code = 159046915] Future Scheduled [address] [facility] - Test 00:00:00 2-64 YEARS AT RISK (1 Medica l Center of 3 - PCV13) [code = PNEUMOCOCCAL VACCINE 2-64 YEARS AT RISK (1 of 3 - PCV13)] Encounters Start End Encounter Admission Attending Care Care Encounter Source Date/Time Date/Time Type Type Clinicians Facility Department ID 2019-04-19 2019-04-19 Outpatient Sheyla Albarado [facility] [id number] 11:35:00 23:59:00 Rin 2019-04-19 2019-04-19 Outpatient [facility] [id number] [facility] 11:35:00 11:35:00 2016-05-18 2016-05-18 Outpatient PENNY DavisOIP OIP [id number] 10:22:00 23:59:00 Casey Ruiz 2015-08-05 2015-08-[id number] 17:05:00 17:42:00 Benjamin 2015-07-01 2015-07-01 Outpatient PAULETTE Warren MHSE [id number] 08:00:00 18:10:00 Alexandre Thomas 2015-06-17 2015-06-17 [facility] [id number] 11:33:00 13:32:00 Woody Gan 2014-08-29 2014-08-29 Outpatient TYSON Pulliam FREDDY [id number] 14:56:00 19:32:00 Kizzy 00 Harsad Results Test Description Test Time Test Comments Results Result Comments Source ELECTROLYTES 2019-04-19 4.7 Beau hollis 18:35:00 Blood Gas+Lytes+Glu+Ca+Hgb+Hct+LA 2017-06-27 12:22:00 Test Item Value Reference Range Interpretation Comme nts pH, Blood Gas (test code = 7.384 pH Units 7.350-7.450 N BGPH) pCO2 (test code = PCO2) 48.2 mm Hg 15-125 N pO2 (test code = PO2) 27.6 mm Hg 30-420 LL Bicarbonate (test code = 28.7 mmol/L 22.0-26.0 HH HCO3) Base Excess (test code = BE) 2.9 mmol/L O2 Saturation (test code = 45.9 % 20.0-100.0 N % O2SAT is not a O2SAT) reliable measur ement of the patient' s oxygenation.Ref erence range not estab lished for this test. Sodium, Blood Gas (test code 143 mmol/L 135-145 N = BGNA) Potassium, Blood Gas (test 4.7 mmol/L 3.5-4.5 H code = BGK) Chloride, Blood Gas (test 103 98-105 N code = BGCL) Calcium, Ionized, Blood Gas 1.25 mmol/L 1.00-1.50 N (test code = BGCAI) Glucose, Blood Gas (test code 98 mg/dL 75-115 N = BGGLU) tHB (test code = RTHB) 12.2 gm/dL 7.0-25.0 N Hematocrit, Blood Gas (test 37.4 % 34.0-52.0 N code = BGHCT) O2Hb (test code = RO2HB) 45 80-100 L Carboxyhemoglobin (test code 1.9 % 0.0-20.0 N = CARHGB) Methemoglobin (test code = 1.1 % 0.0-20.0 N METHGB) FIO2 % (test code = FIO2) 21 % Patient Temperature (test 37.0 Degrees code = PTTEMP) Celcius Puncture Site (test code = Other PUNSITE) Drawing Tech ID (test code = Cloud Floor DRAWTECH) iPAP (test code = IPAP) 0 cmH2O Respiratory Rate (test code = 0 RESP RATE) Lactic Acid, Blood Gas (test 0.7 mmol/L code = BGLA) HEMOGLOBIN [id number] 08:30:00 Test Item Value Reference Range Interpretation Comments HEMOGLOBIN A1C ([facility]) (test code = 5.3 % 4.3-6.1 368) POCT-GLUCOSE [id number] 07:28:00 Test Item Value Reference Range Interpretation Comments POC-GLUCOSE METER 78 mg/dL 70-110 TESTED AT [place] [address] ([facility]) (test code = TANISHA Hutson [facility] [address] 1538) POCT-GLUCOSE [id number] 20:51:00 Test Item Value Reference Range Interpretation Comments POC-GLUCOSE METER 49 mg/dL 70-110 L Will Repea t Test/TESTED ([facility]) (test code = AT [facility] [address] [place] [address] 1538) [facility] [address] 0 POCT-GLUCOSE [id number] 18:20:00 Test Item Value Reference Range Interpretation Comments POC-GLUCOSE METER 188 mg/dL 70-110 H TESTED AT [place] [address] ([facility]) (test code = [facility] Caryl [facility] 1538) [address] T4, [id number] 17:50:00 Test Item Value Reference Range Interpretation Comments FREE T4 ([facility]) (test code = 655) 1.31 ng/dL 0.70-1.48 SEDIMENTATION [id number] 17:38:00 Test Item Value Reference Range Interpretation Comments SEDIMENTATION RATE, ERYTHROCYTE 103 mm/HR 0-20 H (AKER) (test code = 766) TSH/FREE T4 IF [id number] 16:25:00 Test Item Value Reference Range Interpretation Comments THYROID STIMULATING HORMONE 0.30 uIU/mL 0.35-4.94 L (AKER) (test code = 772) CREATINE KINASE (CK), TOTAL AND [id number] 16:08:00 Test Item Value Reference Range Interpretation Comments CREATINE KINASE TOTAL (BEAKER) 111 U/L 29-200 (test code = 380) CREATINE KINASE-MB (BEAKER) (test 4.8 ng/mL 0.0-6.6 code = 750) CREATINE KINASE-MB INDEX (BEAKER) 4.3 % (test code = 395) CK-MB Reference Range:<6.7 Normal6.7-10.0 Borderline>10.0 AbnormalTROPONIN [id number] 16:08:00 Test Item Value Reference Range Interpretation Comments TROPONIN I (BEAKER) (test code = 0.10 ng/mL 0.00-0.03 H 397) Troponin I (TnI) levels must be interpreted [...] and persistent tachyarrhythmia.CREATINE KINASE (CK), TOTAL AND MB 2017-02-23 16:07:00 Test Item Value Reference Range Interpretation Comments CREATINE KINASE TOTAL (BEAKER) 100 U/L 29-200 (test code = 380) CREATINE KINASE-MB (BEAKER) (test 3.7 ng/mL 0.0-6.6 code = 750) CREATINE KINASE-MB INDEX (BEAKER) 3.7 % (test code = 395) CK-MB Reference Range:<6.7 Normal6.7-10.0 Borderline>10.0 AbnormalTROPONIN [id number] 16:07:00 Test Item Value Reference Range Interpretation Comments TROPONIN I (BEAKER) (test code = 0.10 ng/mL 0.00-0.03 H 397) Troponin I (TnI) levels must be interpreted [...] failure, acidosis, acute neurological disease, and persistent tachyarrhythmia.[id number] 15:59:00 Test Item Value Reference Range Interpretation Comments PHOSPHORUS (BEAKER) (test code = 5.1 mg/dL 2.3-4.7 H 604) LIPID [id number] 15:59:00 Test Item Value Reference Range Interpretation Comments TRIGLYCERIDES (BEAKER) (test code = 64 mg/dL 540) CHOLESTEROL (BEAKER) (test code = 112 mg/dL 631) HDL CHOLESTEROL (BEAKER) (test code 36 mg/dL = 976) LDL CHOLESTEROL CALCULATED (BEAKER) 63 mg/dL (test code = 633) Triglyceride Reference Range: Low Risk <150 Borderline 150-199 High Risk 200-499 Very High Risk >=500Cholesterol Reference Range: Low Risk <200 Borderline 200-239 High Risk >240HDL Cholesterol Reference Range: Low Risk >=60 High Risk <40LDL Cholesterol Reference Range: Optimal <100 Near Optimal 100-129 Borderline 130-159 High 160-189 Very High >=190HEPATIC FUNCTION [id number] 15:59:00 Test Item Value Reference Range Interpretation Comments TOTAL PROTEIN (BEAKER) (test code = 6.6 gm/dL 6.0-8.3 770) ALBUMIN (BEAKER) (test code = 1145) 2.5 g/dL 3.5-5.0 L BILIRUBIN TOTAL (BEAKER) (test code 0.4 mg/dL 0.2-1.2 = 377) BILIRUBIN DIRECT (BEAKER) (test 0.1 mg/dL 0.1-0.5 code = 706) ALKALINE PHOSPHATASE (BEAKER) (test 82 U/L 40-150 code = 346) AST (SGOT) (BEAKER) (test code = 16 U/L 5-34 353) ALT (SGPT) (BEAKER) (test code = 10 U/L 6-55 347) C-REACTIVE [id number] 15:59:00 Test Item Value Reference Range Interpretation Comments C-REACTIVE PROTEIN (BEAKER) (test 0.52 mg/dL 0.00-0.50 H code = 676) BASIC METABOLIC [id number] 15:59:00 Test Item Value Reference Range Interpretation Comments SODIUM (BEAKER) 140 meq/L 136-145 (test code = 381) POTASSIUM (BEAKER) 4.4 meq/L 3.5-5.1 (test code = 379) CHLORIDE (BEAKER) 110 meq/L 98-107 H (test code = 382) CO2 (BEAKER) (test 21 meq/L 22-29 L code = 355) BLOOD UREA NITROGEN 54 mg/dL 7-21 H (BEAKER) (test code = 354) CREATININE (BEAKER) 9.62 mg/dL 0.57-1.25 H (test code = 358) GLUCOSE RANDOM 87 mg/dL 70-105 (BEAKER) (test code = 652) CALCIUM (BEAKER) 8.0 mg/dL 8.4-10.2 L (test code = 697) EGFR (BEAKER) (test 5 mL/min/1.73 ESTIMAT ED GFR IS code = 1092) sq m NOT ACCURATE CREATININE CLEARANCE IN PREDICTING GLOMERULAR FILTRATION RATE . ESTIMATED GFR I S NOT APPLICABLE FOR DIALYSIS PATIEN TS. CBC W/PLT COUNT & AUTO [id number] 15:16:00 Test Item Value Reference Range Interpretation Comments WHITE BLOOD CELL COUNT (BEAKER) 4.3 K/ L 3.5-10.5 (test code = 775) RED BLOOD CELL COUNT (BEAKER) 2.57 M/ L 3.93-5.22 L (test code = 761) HEMOGLOBIN (BEAKER) (test code = 7.3 GM/DL 11.2-15.7 L 410) HEMATOCRIT (BEAKER) (test code = 23.4 % 34.1-44.9 L 411) MEAN CORPUSCULAR VOLUME (BEAKER) 91.1 fL 79.4-94.8 (test code = 753) MEAN CORPUSCULAR HEMOGLOBIN 28.4 pg 25.6-32.2 (BEAKER) (test code = 751) MEAN CORPUSCULAR HEMOGLOBIN CONC 31.2 GM/DL 32.2-35.5 L (BEAKER) (test code = 752) RED CELL DISTRIBUTION WIDTH 15.1 % 11.7-14.4 H (BEAKER) (test code = 412) PLATELET COUNT (BEAKER) (test 184 K/CU MM 150-450 code = 756) MEAN PLATELET VOLUME (BEAKER) 10.8 fL 9.4-12.3 (test code = 754) NUCLEATED RED BLOOD CELLS 0 /100 WBC 0-0 (BEAKER) (test code = 413) NEUTROPHILS RELATIVE PERCENT 58 % (BEAKER) (test code = 429) LYMPHOCYTES RELATIVE PERCENT 25 % (BEAKER) (test code = 430) MONOCYTES RELATIVE PERCENT 13 % (BEAKER) (test code = 431) EOSINOPHILS RELATIVE PERCENT 4 % (BEAKER) (test code = 432) BASOPHILS RELATIVE PERCENT 1 % (BEAKER) (test code = 437) NEUTROPHILS ABSOLUTE COUNT 2.50 K/ L 1.56-6.13 (BEAKER) (test code = 670) LYMPHOCYTES ABSOLUTE COUNT 1.07 K/ L 1.18-3.74 L (BEAKER) (test code = 414) MONOCYTES ABSOLUTE COUNT (BEAKER) 0.55 K/ L 0.24-0.36 H (test code = 415) EOSINOPHILS ABSOLUTE COUNT 0.17 K/ L 0.04-0.36 (BEAKER) (test code = 416) BASOPHILS ABSOLUTE COUNT (BEAKER) 0.02 K/ L 0.01-0.08 (test code = 417) IMMATURE GRANULOCYTES-RELATIVE 0 % 0-1 PERCENT (BEAKER) (test code = 2801) PROTHROMBIN [id number] 15:08:00 Test Item Value Reference Range Interpretation Comments PROTIME (BEAKER) (test code = 16.0 seconds 11.7-14.7 H 759) INR (BEAKER) (test code = 370) 1.3 <=5.9 RECOMMENDED COUMADIN/WARFARIN INR THERAPY RANGESSTANDARD DOSE: 2.0 - 3.0 Includes: PROPHYLAXIS forvenous thrombosis, systemic embolization; TREATMENT for venous thrombosis and/or pulmonary embolus.HIGH RISK: Target INR is 2.5-3.5 for patients with mechanical heart valves.POCT-GLUCOSE [id number] 12:04:00 Test Item Value Reference Range Interpretation Comments POC-GLUCOSE METER 187 mg/dL 70-110 H TESTED AT [facility] 6720 ([facility]) (test code = TANISHA Hutson [facility] 1538) [address] POCT-GLUCOSE [id number] 09:11:00 Test Item Value Reference Range Interpretation Comments POC-GLUCOSE METER 83 mg/dL 70-110 TESTED AT [facility] 67[address] ([facility]) (test code = TANISHA Hutson [facility] [address] 1538) MR, BRAIN, WITHOUT [id number] 00:47:00PT started dialysis 07/12/2015Reason for exam:->Sudden onset headace, dizzinessFINAL REPORT MR, [...] sella. The larger intracranial vascular flow-voids are pres erved. No loss of flow void is identified [...] excluded. Mild paranasal sinus disease. Signed: JR Astorga Robert MDReport Verified Date/Time: 02/23/2017 00:47:16 Reading Location: [address] Body Reading Room AFB CULTURE + [id number] 07:45:00 Test Item Value Reference Range Interpretation Comments CULTURE (BEAKER) (test No acid-fast bacilli code = 1095) isolated in 42 days AFB SMEAR (BEAKER) No acid fast bacilli (test code = 994) seen AFB CULTURE + [id number] 07:45:00 Test Item Value Reference Range Interpretation Comments CULTURE (BEAKER) (test No acid-fast bacilli code = 1095) isolated in 42 days AFB SMEAR (BEAKER) No acid fast bacilli (test code = 994) seen FUNGUS CULTURE + [id number] 18:17:00 Test Item Value Reference Range Interpretation Comments CULTURE (BEAKER) (test No fungus isolated in code = 1095) 28 days FUNGUS SMEAR (BEAKER) No fungi seen (test code = 1406) FUNGUS CULTURE + [id number] 18:17:00 Test Item Value Reference Range Interpretation Comments CULTURE (BEAKER) (test No fungus isolated in code = 1095) 28 days FUNGUS SMEAR (BEAKER) No fungi seen (test code = 1406) AFB CULTURE + [id number] 14:52:00 Test Item Value Reference Range Interpretation Comments CULTURE (BEAKER) (test No acid-fast bacilli code = 1095) isolated in 42 days AFB SMEAR (BEAKER) No acid fast bacilli (test code = 994) seen AB SPECIFICITY CLASS [id number] 10:13:00 Test Item Value Reference Range Interpretation Comments DATE OF SERUM (BEAKER) (test code = 276985 6017) SERUM # (BEAKER) (test code = 2290) 264599 AB SPECIFICITY CLASS I (BEAKER) (test code = 2429) AB SPECIFICITY CLASS [id number] 10:13:00 Test Item Value Reference Range Interpretation Comments DATE OF SERUM (BEAKER) 368084 (test code = 2289) SERUM # (BEAKER) (test 060235 code = 2290) AB SPECIFICITY CLASS II See Scanned Report [facility] (test code = 2430) HERPES VIRUS ANTIBODY, [id number] 14:21:00 Test Item Value Reference Range Interpretation Comments HERPES VIRUS IGM Negative HSV 1 IGM = NEGHSV 2 (BEAKER) (test code = IGM = NEG 1808) TOXOPLASMA GONDII ANTIBODY, [id number] 14:21:00 Test Item Value Reference Range Interpretation Comments TOXOPLASMA IGM ANTIBODY (BEAKER) Negative (test code = 742) FLOW PRA CLASS I AND [id number] 15:15:00 Test Item Value Reference Range Interpretation Comments DATE OF SERUM (BEAKER) 358714 (test code = 2289) SERUM # (BEAKER) (test 719046 code = 2290) FLOW PRA CLASS I AND II See Scanned Report (test code = 2421) VARICELLA ZOSTER ANTIBODY, [id number] 14:59:00 Test Item Value Reference Range Interpretation Comments VARICELLA ZOSTER IGG (AL) (BEAKER) 5.8 Al (test code = 3197) VARICELLA ZOSTER RESULT INTERPRETATIONS: <=0.8 Al Nonreactive: Presumed non-immune to VZV 0.9-1.0 Al Equivocal >=1.1 Al Reactive: Presumed immune to VZVCT, [id number] 14:16:00PT started dialysis 07/12/2015Addendum BeginsREPORT STATUS:A The original report incorrectly states that the procedure was performed with intravenous contrast. In fact, the procedure was performed without intravenous contrast. Signed: Joann Diaz MDReport Verified Date/Time: 01/13/2017 14:16:42 ReadingLocation: [facility] B1 C013X Ortho Consult Reading RoomAddendum [...] open part of wound. Signed: Joann Diaz MDReport Verified Date/Time: 01/06/2017 23:49:19 Reading Location: [facility] P274EHtdvrgp Reading Room CT, CHEST, WITHOUT [id number] 14:16:00PT started dialysis 07/12/2015Addendum BeginsREPORT STATUS:A The original report incorrectly states that the procedure was performed with intravenous contrast. In fact, the procedure was performed without intravenous contrast. Signed: Joann Diazeport Verified Date/Time: 01/13/2017 14:16:42 ReadingLocation: [facility] C013X Ortho Consult Reading RoomAddendum EndsFINAL REPORT IND ICATION:46-year-old female preheart transplant evaluation. COMPARISON: None. TECHNIQUE: CT of the Chest, Abdomen and Pelvis WITH intravenous contrast. Enteric contrast was not used. The exam was performed according to our department dose-optimization protocol, which includes automated exposure control , adjustments of mA and kV according to [...] open part of wound. Signed: Joann Diaz MDReport Verified Date/Time: 01/06/2017 23:49:19 Reading Location: [address] Reading Room BASIC METABOLIC [id number] 14:06:00 Test Item Value Reference Range Interpretation Comments SODIUM (BEAKER) 135 meq/L 136-145 L (test code = 381) POTASSIUM (BEAKER) 4.1 meq/L 3.5-5.1 (test code = 379) CHLORIDE (BEAKER) 102 meq/L 98-107 (test code = 382) CO2 (BEAKER) (test 24 meq/L 22-29 code = 355) BLOOD UREA NITROGEN 24 mg/dL 7-21 H (BEAKER) (test code = 354) CREATININE (BEAKER) 8.29 mg/dL 0.57-1.25 H (test code = 358) GLUCOSE RANDOM 84 mg/dL 70-105 (BEAKER) (test code = 652) CALCIUM (BEAKER) 8.8 mg/dL 8.4-10.2 (test code = 697) EGFR (BEAKER) (test 6 mL/min/1.73 ESTIMAT ED GFR IS code = 1092) sq m NOT ACCURATE CREATININE CLEARANCE IN PREDICTING GLOMERULAR FILTRATION RATE . ESTIMATED GFR I S NOT APPLICABLE FOR DIALYSIS PATIEN TS. [id number] 14:04:00 Test Item Value Reference Range Interpretation Comments MAGNESIUM (BEAKER) (test code = 1.7 mg/dL 1.6-2.6 627) PROTHROMBIN [id number] 13:52:00 Test Item Value Reference Range Interpretation Comments PROTIME (BEAKER) (test code = 16.5 seconds 11.7-14.7 H 759) INR (BEAKER) (test code = 370) 1.3 <=5.9 RECOMMENDED COUMADIN/WARFARIN INR THERAPY RANGESSTANDARD DOSE: 2.0 - 3.0 Includes: PROPHYLAXIS forvenous thrombosis, systemic embolization; TREATMENT for venous thrombosis and/or pulmonary embolus.HIGH RISK: Target INR is 2.5-3.5 for patients with mechanical heart valves.While on warfarin.CBC (HEMOGRAM ONLY) 2017-01-13 13:43:00 Test Item Value Reference Range Interpretation Comments WHITE BLOOD CELL COUNT (BEAKER) 3.9 K/ L 3.5-10.5 (test code = 775) RED BLOOD CELL COUNT (BEAKER) 2.61 M/ L 3.93-5.22 L (test code = 761) HEMOGLOBIN (BEAKER) (test code = 7.5 GM/DL 11.2-15.7 L 410) HEMATOCRIT (BEAKER) (test code = 23.8 % 34.1-44.9 L 411) MEAN CORPUSCULAR VOLUME (BEAKER) 91.2 fL 79.4-94.8 (test code = 753) MEAN CORPUSCULAR HEMOGLOBIN 28.7 pg 25.6-32.2 (BEAKER) (test code = 751) MEAN CORPUSCULAR HEMOGLOBIN CONC 31.5 GM/DL 32.2-35.5 L (BEAKER) (test code = 752) RED CELL DISTRIBUTION WIDTH 14.2 % 11.7-14.4 (BEAKER) (test code = 412) PLATELET COUNT (BEAKER) (test 187 K/CU MM 150-450 code = 756) MEAN PLATELET VOLUME (BEAKER) 11.2 fL 9.4-12.3 (test code = 754) NUCLEATED RED BLOOD CELLS 0 /100 WBC 0-0 (BEAKER) (test code = 413) POCT-GLUCOSE [id number] 07:33:00 Test Item Value Reference Range Interpretation Comments POC-GLUCOSE METER 82 mg/dL 70-110 TESTED AT [facility] (BEAKER) (test code = [facility] [address] 1538) POCT-GLUCOSE [id number] 22:10:00 Test Item Value Reference Range Interpretation Comments POC-GLUCOSE METER 118 mg/dL 70-110 H TESTED AT [place] [address] ([facility]) (test code = [facility] 1538) [address] POCT-GLUCOSE [id number] 16:58:00 Test Item Value Reference Range Interpretation Comments POC-GLUCOSE METER 102 mg/dL 70-110 TESTED AT [place] [address] ([facility]) (test code = [facility] 1538) [address] POCT-GLUCOSE [id number] 07:43:00 Test Item Value Reference Range Interpretation Comments POC-GLUCOSE METER 93 mg/dL 70-110 TESTED AT [place] [address] ([facility]) (test code = [facility] [address] 1538) POCT-GLUCOSE [id number] 21:58:00 Test Item Value Reference Range Interpretation Comments POC-GLUCOSE METER 130 mg/dL 70-110 H TESTED AT [place] [address] ([facility]) (test code = [facility] 1538) [address] POCT-GLUCOSE [id number] 17:59:00 Test Item Value Reference Range Interpretation Comments POC-GLUCOSE METER 144 mg/dL 70-110 H TESTED AT [place] [address] ([facility]) (test code = [facility] 1538) [address] CYTOMEGALOVIRUS ANTIBODY, [id number] 15:45:00 Test Item Value Reference Range Interpretation Comments CYTOMEGALOVIRUS IGG ANTIBODY Negative ([facility]) (test code = 790) CYTOMEGALOVIRUS ANTIBODY, [id number] 15:45:00 Test Item Value Reference Range Interpretation Comments CYTOMEGALOVIRUS IGM ANTIBODY Negative ([facility]) (test code = 816) HERPES VIRUS ANTIBODY, [id number] 15:45:00 Test Item Value Reference Range Interpretation Comments HERPES VIRUS IGG Positive HSV 1 IGG = POSHSV 2 ([facility]) (test code = IGG = POS 1807) EBV-VCA ANTIBODY, [id number] 15:45:00 Test Item Value Reference Range Interpretation Comments GIO-NICK VCA IGG ([facility]) (test Positive code = 983) EBV-VCA ANTIBODY, [id number] 15:45:00 Test Item Value Reference Range Interpretation Comments GIO-NICK VCA IGM ([facility]) (test Negative code = 984) TOXOPLASMA GONDII ANTIBODY, [id number] 15:45:00 Test Item Value Reference Range Interpretation Comments TOXOPLASMA GONDII IGG (BEAKER) (test Negative code = 419) POCT-GLUCOSE [id number] 14:27:00 Test Item Value Reference Range Interpretation Comments POC-GLUCOSE METER 108 mg/dL 70-110 TESTED AT [facility] 6720 ([facility]) (test code = TANISHA Hutson [facility] 1538) [address] IMMUNOFIXATION ELECTROPHORESIS (YOANNA)2017-01-11 13:52:00 Test Item Value Reference Range Interpretation Comments IMMUNOGLOBULIN G (IGG) 2035 mg/dL 540-1822 H (BEAKER) (test code = 427) IMMUNOGLOBULIN A (IGA) 148 mg/dL 63-484 (BEAKER) (test code = 639) IMMUNOGLOBULIN M (IGM) 125 mg/dL 22-293 (BEAKER) (test code = 638) SERUM YOANNA ID ([facility]) Polyclonal (test code = 1814) distribution of immunoglobulins; no monoclonal proteins detected. Small band seen on SPEP, therefore, is likely due to presence of fibrinogen in the sample. [id number] Pat Pinzon, ([facility]) (test code = (electronic 3870) signature) Do not collect, specimen already in lab.BASIC METABOLIC [id number] 09:44:00 Test Item Value Reference Range Interpretation Comments SODIUM (BEAKER) 137 meq/L 136-145 (test code = 381) POTASSIUM (BEAKER) 3.9 meq/L 3.5-5.1 (test code = 379) CHLORIDE (BEAKER) 101 meq/L 98-107 (test code = 382) CO2 (BEAKER) (test 30 meq/L 22-29 H code = 355) BLOOD UREA NITROGEN 20 mg/dL 7-21 (BEAKER) (test code = 354) CREATININE (BEAKER) 7.35 mg/dL 0.57-1.25 H (test code = 358) GLUCOSE RANDOM 85 mg/dL 70-105 (BEAKER) (test code = 652) CALCIUM (BEAKER) 8.5 mg/dL 8.4-10.2 (test code = 697) EGFR (BEAKER) (test 7 mL/min/1.73 ESTIMAT ED GFR IS code = 1092) sq m NOT ACCURATE CREATININE CLEARANCE IN PREDICTING GLOMERULAR FILTRATION RATE . ESTIMATED GFR I S NOT APPLICABLE FOR DIALYSIS PATIEN TS. [id number] 09:20:00 Test Item Value Reference Range Interpretation Comments MAGNESIUM ([facility]) (test code = 1.8 mg/dL 1.6-2.6 627) POCT-GLUCOSE [id number] 09:18:00 Test Item Value Reference Range Interpretation Comments POC-GLUCOSE METER 100 mg/dL 70-110 TESTED AT [place] [address] ([facility]) (test code = TANISHA Hutson [place] 1538) [address] PROTHROMBIN [id number] 08:51:00 Test Item Value Reference Range Interpretation Comments PROTIME ([facility]) (test code = 15.1 seconds 11.7-14.7 H 759) INR ([facility]) (test code = 370) 1.2 <=5.9 RECOMMENDED COUMADIN/WARFARIN INR THERAPY RANGESSTANDARD DOSE: 2.0 - 3.0 Includes: PROPHYLAXIS forvenous thrombosis, systemic embolization; TREATMENT for venous thrombosis and/or pulmonary embolus.HIGH RISK: Target INR is 2.5-3.5 for patients with mechanical heart valves.While on warfarin.HGB/HCT (H&H) - STAT [id number] 08:44:00 Test Item Value Reference Range Interpretation Comments HEMOGLOBIN ([facility]) (test code = 8.0 g/dL 12.0-15.0 L 410) HEMATOCRIT ([facility]) (test code = 24.0 % 36.0-45.0 L 411) POCT-GLUCOSE [id number] 23:05:00 Test Item Value Reference Range Interpretation Comments POC-GLUCOSE METER 108 mg/dL 70-110 TESTED AT [place] [address] ([facility]) (test code = HONEYDARRYL Caryl [place] 1538) [address] POCT-GLUCOSE [id number] 17:36:00 Test Item Value Reference Range Interpretation Comments POC-GLUCOSE METER 133 mg/dL 70-110 H TESTED AT [place] [address] ([facility]) (test code = TANISHA Hutson [place] 1538) [address] POCT-GLUCOSE [id number] 12:31:00 Test Item Value Reference Range Interpretation Comments POC-GLUCOSE METER 115 mg/dL 70-110 H TESTED AT [place] [address] ([facility]) (test code = TANISHA Hutson [facility] 1538) [address] FUNGUS CULTURE + [id number] 12:30:00 Test Item Value Reference Range Interpretation Comments CULTURE ([facility]) (test No fungus isolated in code = 1095) 28 days FUNGUS SMEAR ([facility]) No fungi seen (test code = 1406) POCT-GLUCOSE [id number] 08:30:00 Test Item Value Reference Range Interpretation Comments POC-GLUCOSE METER 99 mg/dL 70-110 TESTED AT [place] [address] ([facility]) (test code = TANISHA Hutson [facility] [address] 1538) POCT-GLUCOSE [id number] 00:16:00 Test Item Value Reference Range Interpretation Comments POC-GLUCOSE METER 106 mg/dL 70-110 TESTED AT [place] [address] ([facility]) (test code = TANISHA Hutson [facility] 1538) [address] POCT-GLUCOSE [id number] 22:21:00 Test Item Value Reference Range Interpretation Comments POC-GLUCOSE METER 88 mg/dL 70-110 TESTED AT [place] [address] ([facility]) (test [facility] = [facility] [address] 1538) POCT-GLUCOSE [id number] 14:36:00 Test Item Value Reference Range Interpretation Comments POC-GLUCOSE METER 119 mg/dL 70-110 H TESTED AT [place] [address] ([facility]) (test code = TANISHA Hutson [facility] 1538) [address] PROTEIN ELECTROPHORESIS, [id number] 13:56:00 Test Item Value Reference Range Interpretation Comments ALBUMIN FRACTION 2.0 g/dL 3.5-5.5 L (BEAKER) (test code = 405) ALPHA 1 FRACTION 0.3 g/dL 0.2-0.4 (BEAKER) (test code = 389) ALPHA 2 FRACTION 0.6 g/dL 0.5-0.9 (BEAKER) (test code = 390) BETA FRACTION 0.9 g/dL 0.6-1.1 (BEAKER) (test code = 392) GAMMA GLOBULIN 1.9 g/dL 0.7-1.7 H FRACTION (BEAKER) (test code = 391) INTERPRETATION-119 There is a peak in the (BEAKER) (test code gamma region that may = 2615) indicate a monoclonal gammopathy. Refer to serum immunofixation electrophoresis. [id number] Anne Yen MD (BEAKER) (test code (electronic signature) = 2615) PROTEIN TOTAL SERUM, 5.7 gm/dL 6.0-8.3 L SPEP (BEAKER) (test code = 1585) Do not collect, specimen already in lab.POTASSIUM-STAT [id number] 10:33:00 Test Item Value Reference Range Interpretation Comments POTASSIUM (BEAKER) (test code = 4.9 meq/L 3.6-5.5 379) GLUCOSE-STAT [id number] 10:33:00 Test Item Value Reference Range Interpretation Comments GLUCOSE RANDOM (BEAKER) (test code 129 mg/dL 70-110 H = 652) HGB/HCT (H&H) - STAT [id number] 10:33:00 Test Item Value Reference Range Interpretation Comments HEMOGLOBIN (BEAKER) (test code = 12.3 g/dL 12.0-15.0 410) HEMATOCRIT (BEAKER) (test code = 36.0 % 36.0-45.0 411) HGB/HCT (H&H) - STAT [id number] 07:59:00 Test Item Value Reference Range Interpretation Comments HEMOGLOBIN (BEAKER) (test code = 8.5 g/dL 12.0-15.0 L 410) HEMATOCRIT (BEAKER) (test code = 25.0 % 36.0-45.0 L 411) BASIC METABOLIC [id number] 07:16:00 Test Item Value Reference Range Interpretation Comments SODIUM (BEAKER) 134 meq/L 136-145 L (test code = 381) POTASSIUM (BEAKER) 4.5 meq/L 3.5-5.1 (test code = 379) CHLORIDE (BEAKER) 101 meq/L 98-107 (test code = 382) CO2 (BEAKER) (test 24 meq/L 22-29 code = 355) BLOOD UREA NITROGEN 24 mg/dL 7-21 H (BEAKER) (test code = 354) CREATININE (BEAKER) 7.96 mg/dL 0.57-1.25 H (test code = 358) GLUCOSE RANDOM 88 mg/dL 70-105 (BEAKER) (test code = 652) CALCIUM (BEAKER) 8.5 mg/dL 8.4-10.2 (test code = 697) EGFR (BEAKER) (test 7 mL/min/1.73 ESTIMAT ED GFR IS code = 1092) sq m NOT ACCURATE CREATININE CLEARANCE IN PREDICTING GLOMERULAR FILTRATION RATE . ESTIMATED GFR I S NOT APPLICABLE FOR DIALYSIS PATIEN TS. [id number] 07:10:00 Test Item Value Reference Range Interpretation Comments MAGNESIUM (BEAKER) (test code = 2.0 mg/dL 1.6-2.6 627) POCT-GLUCOSE [id number] 06:47:00 Test Item Value Reference Range Interpretation Comments POC-GLUCOSE METER 113 mg/dL 70-110 H TESTED AT [facility] [address] ([employer]) (test code = TANISHA Hutson [place] 1538) [id number] 02:25:00 Test Item Value Reference Range Interpretation Comments PARTIAL THROMBOPLASTIN TIME 67.7 seconds 22.5-36.0 H (BEAKER) (test code = 760) POCT-GLUCOSE [id number] 18:18:00 Test Item Value Reference Range Interpretation Comments POC-GLUCOSE METER 138 mg/dL 70-110 H TESTED AT [facility] 6720 ([employer]) (test code = TANISHA Hutson [place] 1538) [id number] 17:24:00 Test Item Value Reference Range Interpretation Comments PROTIME (BEAKER) (test code = 15.2 seconds 11.7-14.7 H 759) INR (BEAKER) (test code = 370) 1.2 <=5.9 PARTIAL THROMBOPLASTIN TIME 37.0 seconds 22.5-36.0 H (BEAKER) (test code = 760) RECOMMENDED COUMADIN/WARFARIN INR THERAPY RANGESSTANDARD DOSE: 2.0 - 3.0 Includes: PROPHYLAXIS forvenous thrombosis, systemic embolization; TREATMENT for venous thrombosis and/or pulmonary embolus.HIGH RISK: Target INR is 2.5-3.5 for patients with mechanical heart valves.ANAEROBIC [id number] 14:23:00 Test Item Value Reference Range Interpretation Comments CULTURE (BEAKER) (test No anaerobes isolated code = 1095) ANAEROBIC [id number] 14:23:00 Test Item Value Reference Range Interpretation Comments CULTURE (BEAKER) (test No anaerobes isolated code = 1095) POCT-GLUCOSE [id number] 12:45:00 Test Item Value Reference Range Interpretation Comments POC-GLUCOSE METER 126 mg/dL 70-110 H TESTED AT [facility] 6720 (BEAKER) (test code = TANISHA [place] 15[address]) [address] SURGICALLY OBTAINED CULTURE + GRAM [id number] 11:41:00 Test Item Value Reference Range Interpretation Comments CULTURE A From Broth Only Same (BEAKER) (test organism has been code = 1095) isolated from cultures(s) of the same body site and collection date . Repeat identifi cation and susceptibil ity testing perform ed only after consultat ion with the [facility] microbiology laboratory.Refe r to previous cultur e ofCoagulase neg ative Staphylococcus GRAM STAIN <1+ WBCs RESULT (BEAKER) (test code = 1123) GRAM STAIN No organisms seen RESULT (BEAKER) (test code = 756265) SURGICALLY OBTAINED CULTURE + GRAM [id number] 11:38:00 Test Item Value Reference Interpretation Comments Range CULTURE (BEAKER) (test code = 1095) Clindamycin (test code R = 10) Erythromycin (test R code = 4) Levofloxacin (test R code = 22) Linezolid (test code = S 40) Nitrofurantoin (test S code = 23) Oxacillin (test code = R 14) Rifampin (test code = S 43) Tetracycline (test S code = 2) Trimethoprim + R Sulfamethoxazole (test code = 47) Vancomycin (test code S = 13) CULTURE (BEAKER) (test A 2+ Co agulase code = 1095) negative Staphylococcus CULTURE (BEAKER) (test A 4+ Di phtheroid code = 1095) GRAM STAIN RESULT <1+ WBCs (BEAKER) (test code = 1123) GRAM STAIN RESULT No organisms (BEAKER) (test code = seen 844845) [id number] 10:08:00 Test Item Value Reference Range Interpretation Comments PROTIME (BEAKER) (test code = 14.7 seconds 11.7-14.7 759) INR (BEAKER) (test code = 370) 1.2 <=5.9 PARTIAL THROMBOPLASTIN TIME 40.2 seconds 22.5-36.0 H (BEAKER) (test code = 760) RECOMMENDED COUMADIN/WARFARIN INR THERAPY RANGESSTANDARD DOSE: 2.0 - 3.0 Includes: PROPHYLAXIS forvenous thrombosis, systemic embolization; TREATMENT for venous thrombosis and/or pulmonary embolus.HIGH RISK: Target INR is 2.5-3.5 for patients with mechanical heart valves.POCT-GLUCOSE [id number] 08:24:00 Test Item Value Reference Range Interpretation Comments POC-GLUCOSE METER 97 mg/dL 70-110 TESTED AT [facility] 6720 (BEAKER) (test code = [place] [address]38) [id number] 07:39:00 Test Item Value Reference Range Interpretation Comments PARTIAL THROMBOPLASTIN TIME 192.0 seconds 22.5-36.0 HH (BEAKER) (test code = 760) [id number] 07:37:00 Test Item Value Reference Range Interpretation Comments MAGNESIUM (BEAKER) (test code = 1.7 mg/dL 1.6-2.6 627) BASIC METABOLIC [id number] 07:37:00 Test Item Value Reference Range Interpretation Comments SODIUM (BEAKER) 136 meq/L 136-145 (test code = 381) POTASSIUM (BEAKER) 4.2 meq/L 3.5-5.1 (test code = 379) CHLORIDE (BEAKER) 100 meq/L 98-107 (test code = 382) CO2 (BEAKER) (test 31 meq/L 22-29 H code = 355) BLOOD UREA NITROGEN 15 mg/dL 7-21 (BEAKER) (test code = 354) CREATININE (BEAKER) 5.65 mg/dL 0.57-1.25 H (test code = 358) GLUCOSE RANDOM 121 mg/dL 70-105 H (BEAKER) (test code = 652) CALCIUM (BEAKER) 8.4 mg/dL 8.4-10.2 (test code = 697) EGFR (BEAKER) (test 10 mL/min/1.73 ESTIMA PALOMA GFR IS code = 1092) sq m NOT ACCURATE CREATININE CLEARANCE IN PREDICTING GLOMERULAR FILTRATION RATE . ESTIMATED GFR I S NOT APPLICABLE FOR DIALYSIS PATIEN TS. [id number] 23:25:00 Test Item Value Reference Range Interpretation Comments PARTIAL THROMBOPLASTIN TIME 97.8 seconds 22.5-36.0 H (BEAKER) (test code = 760) POCT-GLUCOSE [id number] 22:52:00 Test Item Value Reference Range Interpretation Comments POC-GLUCOSE METER 98 mg/dL 70-110 TESTED AT [place] [address] ([facility]) (test code = TANISHA Hutson [facility] [address]) POCT-GLUCOSE [id number] 17:43:00 Test Item Value Reference Range Interpretation Comments POC-GLUCOSE METER 86 mg/dL 70-110 TESTED AT [place] [address] ([facility]) (test code = [facility] [address]) [id number] 15:59:00 Test Item Value Reference Range Interpretation Comments PARTIAL THROMBOPLASTIN TIME 62.8 seconds 22.5-36.0 H ([facility]) (test code = 760) POCT-GLUCOSE [id number] 14:50:00 Test Item Value Reference Range Interpretation Comments POC-GLUCOSE METER 115 mg/dL 70-110 H TESTED AT [place] [address] ([facility]) (test code = [facility] 1538) [address] [id number] 14:00:00 Test Item Value Reference Range Interpretation Comments PARTIAL THROMBOPLASTIN TIME 113.6 seconds 22.5-36.0 H ([facility]) (test code = 760) VANCOMYCIN LEVEL, [id number] 13:10:00 Test Item Value Reference Range Interpretation Comments VANCOMYCIN RANDOM ([facility]) (test 33.9 ug/mL code = 523) Reference Range: No NormalsTROPONIN [id number] 12:52:00 Test Item Value Reference Range Interpretation Comments TROPONIN I ([facility]) (test code = 0.09 ng/mL 0.00-0.03 H 397) Troponin I (TnI) levels must be interpreted [...] acidosis, acute neurological disease, and persistent tachyarrhythmia.POCT-GLUCOSE [id number] 12:19:00 Test Item Value Reference Range Interpretation Comments POC-GLUCOSE METER 87 mg/dL 70-110 TESTED AT [facility] 6720 ([facility]) (test code = [place] [address]38) POCT-GLUCOSE [id number] 08:36:00 Test Item Value Reference Range Interpretation Comments POC-GLUCOSE METER 62 mg/dL 70-110 L Notified Caryl Powers MD/TESTED AT ([facility]) (test code = [facility] [address] [address]) [place] [address] ANTI-NUCLEAR ANTIBODY ([place])2017-01-07 06:33:00 Test Item Value Reference Range Interpretation Comments ANTI-NUCLEAR ANTIBODY ([place]) ([facility]) Positive Negative A (test code = 418) [place] TITER AND [id number] 06:33:00 Test Item Value Reference Range Interpretation Comments MILTON TITER ([facility]) (test code = 1541) :640 [place] PATTERN ([facility]) (test code = SSA/RO 1781) TROPONIN [id number] 03:35:00 Test Item Value Reference Range Interpretation Comments TROPONIN I ([facility]) (test code = 0.10 ng/mL 0.00-0.03 H 397) Troponin I (TnI) levels must be interpreted [...] acute neurological disease, and persistent tachyarrhythmia.BASIC METABOLIC [id number] 03:28:00 Test Item Value Reference Range Interpretation Comments SODIUM (BEAKER) 137 meq/L 136-145 (test code = 381) POTASSIUM (BEAKER) 4.5 meq/L 3.5-5.1 (test code = 379) CHLORIDE (BEAKER) 103 meq/L 98-107 (test code = 382) CO2 (BEAKER) (test 27 meq/L 22-29 code = 355) BLOOD UREA NITROGEN 22 mg/dL 7-21 H (BEAKER) (test code = 354) CREATININE (BEAKER) 7.44 mg/dL 0.57-1.25 H (test code = 358) GLUCOSE RANDOM 73 mg/dL 70-105 (BEAKER) (test code = 652) CALCIUM (BEAKER) 8.2 mg/dL 8.4-10.2 L (test code = 697) EGFR (BEAKER) (test 7 mL/min/1.73 ESTIMAT ED GFR IS code = 1092) sq m NOT ACCURATE CREATININE CLEARANCE IN PREDICTING GLOMERULAR FILTRATION RATE . ESTIMATED GFR I S NOT APPLICABLE FOR DIALYSIS PATIEN TS. [id number] 03:27:00 Test Item Value Reference Range Interpretation Comments MAGNESIUM (BEAKER) (test code = 1.9 mg/dL 1.6-2.6 627) [id number] 03:24:00 Test Item Value Reference Range Interpretation Comments PARTIAL THROMBOPLASTIN TIME 111.9 seconds 22.5-36.0 H (BEAKER) (test code = 760) [id number] 00:18:00 Test Item Value Reference Range Interpretation Comments RPR SCREEN (BEAKER) (test code = Nonreactive Nonreactive 420) BLOOD [id number] 00:00:00 Test Item Value Reference Range Interpretation Comments CULTURE (BEAKER) (test No growth in 5 days code = 1095) BLOOD [id number] 00:00:00 Test Item Value Reference Range Interpretation Comments CULTURE (BEAKER) (test No growth in 5 days code = 1095) CT, BRAIN, WITHOUT [id number] 23:31:00PT started dialysis 07/12/2015 FINAL REPORT Clinical history : Heart transplant evaluationComparison [...] Nuno MDReportVerified Date/Time: 01/06/2017 23:31:20 Reading Location: [facility] B1 C013X Ortho Consult Reading Room POCT-GLUCOSE [id number] 22:02:00 Test Item Value Reference Range Interpretation Comments POC-GLUCOSE METER 99 mg/dL 70-110 TESTED AT [facility] 67 ([facility]) (test code = TANISHA Hutson [facility] [address]) [id number] 18:44:00 Test Item Value Reference Range Interpretation Comments PARTIAL THROMBOPLASTIN TIME 94.9 seconds 22.5-36.0 H ([facility]) (test code = 760) HEPATITIS A ANTIBODY, [id number] 18:03:00 Test Item Value Reference Range Interpretation Comments HEPATITIS A IGG ANTIBODY ([facility]) Reactive Nonreactive A (test code = 2797) HIV-1 ANTIGEN WITH HIV-1/2 [id number] 17:58:00 Test Item Value Reference Range Interpretation Comments HIV-1 ANTIGEN WITH HIV 1\\T\\2 Nonreactive Nonreactive ANTIBODY (2) ([facility]) (test code = 2586) POCT-GLUCOSE [id number] 17:55:00 Test Item Value Reference Range Interpretation Comments POC-GLUCOSE METER 89 mg/dL 70-110 TESTED AT [place] [address] ([facility]) (test code = TANISHA Hutson [facility] [address]) ANG, TUNNELED DIALYSIS CATH [id number] 17:45:00PT started dialysis 07/12/2015Reason for exam:->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 Bus Assistant: Richard. Commercial Hvac Technician: Rolf. Approach: Right internal jugular vein Estimated [...] needle into the right atrium. A 4 [place] micropuncture sheath was placed. A subcutaneous tunnel was created in the right anterior chest wall by blunt dissection. A 19 cm 15.5 [place] Duraflow 2 catheter was brought through the tunnel. The vessel tract was serially dilated over a J-wire. A peel-away sheath was placed in the right IJ vein and the catheter was advanced through the sheath, with its distal tip terminating in the right atrium. The peel-away sheath was removed. The port s were flushed and aspirated easily following placement. [...] guidance and conscious sedation. Signed: Jerrod Ramírez MDReport Verified Date/Time: 01/06/2017 17:45:51 Reading Location: [facility] P006J Ultrasound Reading Room [id number] 17:37:00 Test Item Value Reference Range Interpretation Comments PARTIAL THROMBOPLASTIN TIME > seconds 22.5-36.0 HH (MARYANNE) (test code = 760) U/S, RENAL, [id number] 17:29:00PT started dialysis 07/12/2015Reason for exam:->heart transplant [...] seen in medical renal disease. Signed: [facility] Verified Date/Time: 01/06/2017 17:29:12 Reading Location: [address] Ultrasound Reading Room TROPONIN [id number] 17:04:00 Test Item Value Reference Range Interpretation Comments TROPONIN I (MARYANNE) (test code = 0.10 ng/mL 0.00-0.03 H 397) Troponin I (TnI) levels must be interpreted [...] failure, acidosis, acute neurological disease, and persistent tachyarrhythmia.[id number] 16:54:00 Test Item Value Reference Range Interpretation Comments FERRITIN (MARYANNE) (test code = 361) 216 ng/mL 5-275 VITAMIN D, [id number] 16:48:00 Test Item Value Reference Range Interpretation Comments VITAMIN D 25-OH (MARYANNE) (test code 6.4 ng/mL 6.6-49.9 L = 2764) Effective 12/21/2016: Reference Range ChangeNew: 6.6-49.9 ng/mL Previous: 13.0-47.8 ng/mLRecommended Vitamin D Target Range: 30.0-40.0 ng/mLT4, FREE 2017-01-06 16:43:00 Test Item Value Reference Range Interpretation Comments FREE T4 (BEAKER) (test code = 655) 1.56 ng/dL 0.70-1.48 H [id number] 16:43:00 Test Item Value Reference Range Interpretation Comments THYROID STIMULATING HORMONE 0.98 uIU/mL 0.35-4.94 (BEAKER) (test code = 772) [id number] 16:22:00 Test Item Value Reference Range Interpretation Comments TRANSFERRIN (BEAKER) (test code = 122 mg/dL 174-382 L 541) [id number] 16:13:00 Test Item Value Reference Range Interpretation Comments PREALBUMIN (BEAKER) (test code = 14 mg/dL 14-45 586) IRON, [id number] 16:13:00 Test Item Value Reference Range Interpretation Comments IRON (BEAKER) (test code = 547) 23 ug/dL 40-160 L TROPONIN [id number] 15:31:00 Test Item Value Reference Range Interpretation Comments TROPONIN I (BEAKER) (test code = 0.12 ng/mL 0.00-0.03 H 397) Troponin I (TnI) levels must be interpreted [...] failure, acidosis, acute neurological disease, and persistent tachyarrhythmia.[id number] 15:30:00 Test Item Value Reference Range Interpretation Comments CREATININE (BEAKER) 6.49 mg/dL 0.57-1.25 H (test code = 358) EGFR (BEAKER) (test 8 mL/min/1.73 ESTIMAT ED GFR IS code = 1092) sq m NOT ACCURATE CREATININE CLEARANCE IN PREDICTING GLOMERULAR FILTRATION RATE . ESTIMATED GFR I S NOT APPLICABLE FOR DIALYSIS PATIEN TS. URIC [id number] 15:25:00 Test Item Value Reference Range Interpretation Comments URIC ACID (BEAKER) (test code = 3.3 mg/dL 2.6-7.2 773) LIPID [id number] 15:25:00 Test Item Value Reference Range Interpretation Comments TRIGLYCERIDES (BEAKER) (test code = 57 mg/dL 540) CHOLESTEROL (BEAKER) (test code = 131 mg/dL 631) HDL CHOLESTEROL (BEAKER) (test code 51 mg/dL = 976) LDL CHOLESTEROL CALCULATED (BEAKER) 69 mg/dL (test code = 633) Triglyceride Reference Range: Low Risk <150 Borderline 150-199 High Risk 200-499 Very High Risk >=500Cholesterol Reference Range: Low Risk <200 Borderline 200-239 High Risk >240HDL Cholesterol Reference Range: Low Risk >=60 High Risk <40LDL Cholesterol Reference Range: Optimal <100 Near Optimal 100-129 Borderline 130-159 High 160-189 Very High >=[id number] 15:25:00 Test Item Value Reference Range Interpretation Comments AMYLASE (BEAKER) (test code = 349) 60 U/L 25-125 GAMMA GLUTAMYL TRANSFERASE (GGT)2017-01-06 15:25:00 Test Item Value Reference Range Interpretation Comments GAMMA GLUTAMYL TRANSFERASE (BEAKER) 15 U/L 9-64 (test code = 364) [id number] 15:25:00 Test Item Value Reference Range Interpretation Comments LIPASE (BEAKER) (test code = 749) 46 U/L 8-78 RETICULOCYTE [id number] 15:07:00 Test Item Value Reference Range Interpretation Comments RETICULOCYTE COUNT PCT (BEAKER) (test 1.2 % 0.5-1.7 code = 575) POCT-GLUCOSE [id number] 09:33:00 Test Item Value Reference Range Interpretation Comments POC-GLUCOSE METER 103 mg/dL 70-110 TESTED AT [facility] 6720 (BEAKER) (test code = TANISHA Hutson [place] 15[address]) [address] POCT-GLUCOSE [id number] 06:37:00 Test Item Value Reference Range Interpretation Comments POC-GLUCOSE METER 108 mg/dL 70-110 TESTED AT [facility] 6720 (BEAKER) (test code = TANISHA [place] 15[address]) [address] VANCOMYCIN LEVEL, [id number] 04:30:00 Test Item Value Reference Range Interpretation Comments VANCOMYCIN RANDOM (BEAKER) (test 37.6 ug/mL code = 523) Reference Range: No NormalsTROPONIN [id number] 04:19:00 Test Item Value Reference Range Interpretation Comments TROPONIN I (BEAKER) (test code = 0.11 ng/mL 0.00-0.03 H 397) Troponin I (TnI) levels must be interpreted [...] acute neurological disease, and persistent tachyarrhythmia.BASIC METABOLIC [id number] 04:12:00 Test Item Value Reference Range Interpretation Comments SODIUM (BEAKER) 139 meq/L 136-145 (test code = 381) POTASSIUM (BEAKER) 4.2 meq/L 3.5-5.1 (test code = 379) CHLORIDE (BEAKER) 105 meq/L 98-107 (test code = 382) CO2 (BEAKER) (test 28 meq/L 22-29 code = 355) BLOOD UREA NITROGEN 15 mg/dL 7-21 (BEAKER) (test code = 354) CREATININE (BEAKER) 5.74 mg/dL 0.57-1.25 H (test code = 358) GLUCOSE RANDOM 85 mg/dL 70-105 (BEAKER) (test code = 652) CALCIUM (BEAKER) 8.2 mg/dL 8.4-10.2 L (test code = 697) EGFR (BEAKER) (test 10 mL/min/1.73 ESTIMA PALOMA GFR IS code = 1092) sq m NOT ACCURATE CREATININE CLEARANCE IN PREDICTING GLOMERULAR FILTRATION RATE . ESTIMATED GFR I S NOT APPLICABLE FOR DIALYSIS PATIEN TS. [id number] 04:11:00 Test Item Value Reference Range Interpretation Comments MAGNESIUM (BEAKER) (test code = 1.7 mg/dL 1.6-2.6 627) [id number] 03:57:00 Test Item Value Reference Range Interpretation Comments PARTIAL THROMBOPLASTIN TIME 36.0 seconds 22.5-36.0 (BEAKER) (test code = 760) Prior to initiating heparinCBC (HEMOGRAM ONLY)2017-01-06 03:49:00 Test Item Value Reference Range Interpretation Comments WHITE BLOOD CELL COUNT (BEAKER) 7.3 K/ L 3.5-10.5 (test code = 775) RED BLOOD CELL COUNT (BEAKER) 2.81 M/ L 3.93-5.22 L (test code = 761) HEMOGLOBIN (BEAKER) (test code = 8.1 GM/DL 11.2-15.7 L 410) HEMATOCRIT (BEAKER) (test code = 26.1 % 34.1-44.9 L 411) MEAN CORPUSCULAR VOLUME (BEAKER) 92.9 fL 79.4-94.8 (test code = 753) MEAN CORPUSCULAR HEMOGLOBIN 28.8 pg 25.6-32.2 (BEAKER) (test code = 751) MEAN CORPUSCULAR HEMOGLOBIN CONC 31.0 GM/DL 32.2-35.5 L (BEAKER) (test code = 752) RED CELL DISTRIBUTION WIDTH 14.3 % 11.7-14.4 (BEAKER) (test code = 412) PLATELET COUNT (BEAKER) (test 150 K/CU MM 150-450 code = 756) MEAN PLATELET VOLUME (BEAKER) 11.0 fL 9.4-12.3 (test code = 754) NUCLEATED RED BLOOD CELLS 0 /100 WBC 0-0 (BEAKER) (test code = 413) TROPONIN [id number] 00:42:00 Test Item Value Reference Range Interpretation Comments TROPONIN I (BEAKER) (test code = 0.11 ng/mL 0.00-0.03 H 397) Troponin I (TnI) levels must be interpreted [...] acidosis, acute neurological disease, and persistent tachyarrhythmia.POCT-GLUCOSE [id number] 00:27:00 Test Item Value Reference Range Interpretation Comments POC-GLUCOSE METER 97 mg/dL 70-110 TESTED AT [facility] 6720 ([facility]) (test code = TANISHA Hutson [facility] [address]) [id number] 00:23:00 Test Item Value Reference Range Interpretation Comments PARTIAL THROMBOPLASTIN TIME 34.2 seconds 22.5-36.0 ([facility]) (test code = 760) [id number] 17:16:00 Test Item Value Reference Range Interpretation Comments PARTIAL THROMBOPLASTIN TIME 58.7 seconds 22.5-36.0 H ([facility]) (test code = 760) TISSUE [id number] 16:16:00Surgical Pathology Report Case: [id number] Authorizing Provider: Fabi Parekh MD Collected: 01/04/2017 1055 Ordering Location: [facility] Received: 01/04/2017 1314 PERIOPERATIVE SERVICES Pathologist: Judit Medel MD Specimen: Hernia, Hernia Sac HERNIA SAC, ABDOMINAL, INCISIONAL HERNIA, REPAIR: - FIBROADIPOSE TISSUE AND REACTIVE CHANGS WITH FOREIGN BODY GIANT C ELLS, CONSISTENT WITH INCISIONAL HERNIA SAC Signing Pathologist Direct Phone Line: [phone] signed by Judit Medel MD on 01/05/2017 at 4:16 [id number]-npoxq renal disease, incisional hernia sacHernia sacReceived fresh labeled "hernia", description "hernia sac" is an 8.3 x 7.3 x 1.0 cm, dark-red to corral-white, irregular, rubbery, wrinkled portion of fibromembranoussoft tissue. Sectioning reveals no discrete masses. Poultry Slaughterer sections are submitted in cassette A1. DB/ew Performed.APTT 2017-01-05 14:43:00 Test Item Value Reference Range Interpretation Comments PARTIAL THROMBOPLASTIN TIME 162.1 seconds 22.5-36.0 HH ([facility]) (test code = 760) POCT-GLUCOSE [id number] 13:01:00 Test Item Value Reference Range Interpretation Comments POC-GLUCOSE METER 88 mg/dL 70-110 TESTED AT [facility] 6720 ([facility]) (test code = [facility] Caryl [facility] [address]) TROPONIN [id number] 12:59:00 Test Item Value Reference Range Interpretation Comments TROPONIN I (BEAKER) (test code = 0.13 ng/mL 0.00-0.03 H 397) Troponin I (TnI) levels must be interpreted [...] acidosis, acute neurological disease, and persistent tachyarrhythmia.SPIN/CONCENTRATION [id number] 12:45:00 Test Item Value Reference Range Interpretation Comments CONCENTRATION CHARGED ([facility]) (test Done code = 3847) POCT-GLUCOSE [id number] 09:10:00 Test Item Value Reference Range Interpretation Comments POC-GLUCOSE METER 102 mg/dL 70-110 TESTED AT [facility] 6720 ([facility]) (test code = T[place] 15[address]) [address] CBC W/PLT COUNT & AUTO [id number] 08:49:00 Test Item Value Reference Range Interpretation Comments WHITE BLOOD CELL COUNT (BEAKER) 8.1 K/ L 3.5-10.5 (test code = 775) RED BLOOD CELL COUNT (BEAKER) 2.94 M/ L 3.93-5.22 L (test code = 761) HEMOGLOBIN (BEAKER) (test code = 8.5 GM/DL 11.2-15.7 L 410) HEMATOCRIT (BEAKER) (test code = 26.9 % 34.1-44.9 L 411) MEAN CORPUSCULAR VOLUME (BEAKER) 91.5 fL 79.4-94.8 (test code = 753) MEAN CORPUSCULAR HEMOGLOBIN 28.9 pg 25.6-32.2 (BEAKER) (test code = 751) MEAN CORPUSCULAR HEMOGLOBIN CONC 31.6 GM/DL 32.2-35.5 L (BEAKER) (test code = 752) RED CELL DISTRIBUTION WIDTH 14.3 % 11.7-14.4 (BEAKER) (test code = 412) PLATELET COUNT (BEAKER) (test 158 K/CU MM 150-450 code = 756) MEAN PLATELET VOLUME (BEAKER) 11.0 fL 9.4-12.3 (test code = 754) NUCLEATED RED BLOOD CELLS 0 /100 WBC 0-0 (BEAKER) (test code = 413) NEUTROPHILS RELATIVE PERCENT 71 % (BEAKER) (test code = 429) LYMPHOCYTES RELATIVE PERCENT 14 % (BEAKER) (test code = 430) MONOCYTES RELATIVE PERCENT 14 % (BEAKER) (test code = 431) EOSINOPHILS RELATIVE PERCENT 1 % (BEAKER) (test code = 432) BASOPHILS RELATIVE PERCENT 0 % (BEAKER) (test code = 437) NEUTROPHILS ABSOLUTE COUNT 5.73 K/ L 1.56-6.13 (BEAKER) (test code = 670) LYMPHOCYTES ABSOLUTE COUNT 1.14 K/ L 1.18-3.74 L (BEAKER) (test code = 414) MONOCYTES ABSOLUTE COUNT (BEAKER) 1.11 K/ L 0.24-0.36 H (test code = 415) EOSINOPHILS ABSOLUTE COUNT 0.10 K/ L 0.04-0.36 (BEAKER) (test code = 416) BASOPHILS ABSOLUTE COUNT (BEAKER) 0.02 K/ L 0.01-0.08 (test code = 417) IMMATURE GRANULOCYTES-RELATIVE 1 % 0-1 PERCENT (BEAKER) (test code = 2801) POCT-GLUCOSE [id number] 07:57:00 Test Item Value Reference Range Interpretation Comments POC-GLUCOSE METER 133 mg/dL 70-110 H TESTED AT [place] [address] ([facility]) (test code = [facility] 1538) [address] BODY FLUID CULTURE + GRAM [id number] 07:44:00 Test Item Value Reference Range Interpretation Comments CULTURE (BEAKER) (test code No growth = 1095) GRAM STAIN RESULT (BEAKER) <1+ WBCs (test code = 1123) [facility] No organisms seen (test code = 93489) POCT-GLUCOSE [id number] 06:05:00 Test Item Value Reference Range Interpretation Comments POC-GLUCOSE METER 63 mg/dL 70-110 L TESTED AT [facility] 67[facility] ([facility]) (test code = [facility] [id number] 1538) VANCOMYCIN LEVEL, [id number] 05:32:00 Test Item Value Reference Range Interpretation Comments [facility] RANDOM ([facility] (test 31.0 ug/mL code = 523) Reference Range: No NormalsBASIC METABOLIC [id number] 05:24:00 Test Item Value Reference Range Interpretation Comments SODIUM (BEAKER) 138 meq/L 136-145 (test code = 381) POTASSIUM (BEAKER) 5.1 meq/L 3.5-5.1 (test code = 379) CHLORIDE (BEAKER) 105 meq/L 98-107 (test code = 382) CO2 (BEAKER) (test 27 meq/L 22-29 code = 355) BLOOD UREA NITROGEN 33 mg/dL 7-21 H (BEAKER) (test code = 354) CREATININE (BEAKER) 9.93 mg/dL 0.57-1.25 H (test code = 358) GLUCOSE RANDOM 57 mg/dL 70-105 L (BEAKER) (test code = 652) CALCIUM (BEAKER) 8.7 mg/dL 8.4-10.2 (test code = 697) EGFR (BEAKER) (test 5 mL/min/1.73 ESTIMAT ED GFR IS code = 1092) sq m NOT ACCURATE CREATININE CLEARANCE IN PREDICTING GLOMERULAR FILTRATION RATE . ESTIMATED GFR I S NOT APPLICABLE FOR DIALYSIS PATIEN TS. TROPONIN [id number] 05:23:00 Test Item Value Reference Range Interpretation Comments TROPONIN I (BEAKER) (test code = 0.13 ng/mL 0.00-0.03 H 397) Troponin I (TnI) levels must be interpreted [...] failure, acidosis, acute neurological disease, and persistent tachyarrhythmia.[id number] 05:21:00 Test Item Value Reference Range Interpretation Comments MAGNESIUM (BEAKER) (test code = 1.7 mg/dL 1.6-2.6 627) [id number] 05:06:00 Test Item Value Reference Range Interpretation Comments PARTIAL THROMBOPLASTIN TIME 89.4 seconds 22.5-36.0 H (BEAKER) (test code = 760) PROTHROMBIN [id number] 05:04:00 Test Item Value Reference Range Interpretation Comments PROTIME (BEAKER) (test code = 14.6 seconds 11.7-14.7 759) INR (BEAKER) (test code = 370) 1.2 <=5.9 RECOMMENDED COUMADIN/WARFARIN INR THERAPY RANGESSTANDARD DOSE: 2.0 - 3.0 Includes: PROPHYLAXIS forvenous thrombosis, systemic embolization; TREATMENT for venous thrombosis and/or pulmonary embolus.HIGH RISK: Target INR is 2.5-3.5 for patients with mechanical heart valves.TROPONIN [id number] 17:14:00 Test Item Value Reference Range Interpretation Comments TROPONIN I (BEAKER) (test code = 0.16 ng/mL 0.00-0.03 H 397) Troponin I (TnI) levels must be interpreted [...] failure, acidosis, acute neurological disease, and persistent tachyarrhythmia.[id number] 16:55:00 Test Item Value Reference Range Interpretation Comments GLUCOSE RANDOM (BEAKER) (test code 140 mg/dL 70-105 H = 652) GLUCOSE-STAT [id number] 13:33:00 Test Item Value Reference Range Interpretation Comments GLUCOSE RANDOM (BEAKER) (test code 101 mg/dL 70-110 = 652) POTASSIUM-STAT [id number] 13:33:00 Test Item Value Reference Range Interpretation Comments POTASSIUM (BEAKER) (test code = 4.6 meq/L 3.6-5.5 379) HGB/HCT (H&H) - STAT [id number] 13:33:00 Test Item Value Reference Range Interpretation Comments HEMOGLOBIN (BEAKER) (test code = 13.0 g/dL 12.0-15.0 410) HEMATOCRIT (BEAKER) (test code = 38.0 % 36.0-45.0 411) BODY FLUID CULTURE + GRAM [id number] 09:05:00 Test Item Value Reference Range Interpretation Comments CULTURE (BEAKER) (test code No growth = 1095) GRAM STAIN RESULT (BEAKER) <1+ WBCs (test code = 1123) GRAM STAIN RESULT ([facility]) No organisms seen (test code = 44723) POCT-GLUCOSE [id number] 07:58:00 Test Item Value Reference Range Interpretation Comments POC-GLUCOSE METER 81 mg/dL 70-110 TESTED AT [facility] [address] (BEAKER) (test code = [place] [address] 1538) HCG, QUANTITATIVE, [id number] 07:23:00 Test Item Value Reference Range Interpretation Comments GONADOTROPIN, CHORIONIC (HCG) QUANT < mIU/mL 0-10 (AKER) (test code = 649) Non- Females: <10 mIU/mL Females: Gestation Age Reference Range(mIU/mL) 0.2-1 Week 5-50 1-2 Weeks 50-500 2-3 Weeks 100-5,000 3-4Weeks 500-10,000 4-5 Weeks 1,000-50,000 5-6 Weeks 10,000-100,000 6-8 Weeks 15,000-200,000 2-3 Months 10,000-100,000TROPONIN [id number] 07:19:00 Test Item Value Reference Range Interpretation Comments TROPONIN I (BEAKER) (test code = 0.17 ng/mL 0.00-0.03 H 397) Troponin I (TnI) levels must be interpreted [...] acute neurological disease, and persistent tachyarrhythmia.BASIC METABOLIC [id number] 07:19:00 Test Item Value Reference Range Interpretation Comments SODIUM (BEAKER) 137 meq/L 136-145 (test code = 381) POTASSIUM (BEAKER) 4.4 meq/L 3.5-5.1 (test code = 379) CHLORIDE (BEAKER) 103 meq/L 98-107 (test code = 382) CO2 (BEAKER) (test 27 meq/L 22-29 code = 355) BLOOD UREA NITROGEN 26 mg/dL 7-21 H (BEAKER) (test code = 354) CREATININE (BEAKER) 8.02 mg/dL 0.57-1.25 H (test code = 358) GLUCOSE RANDOM 74 mg/dL 70-105 (BEAKER) (test code = 652) CALCIUM (BEAKER) 8.3 mg/dL 8.4-10.2 L (test code = 697) EGFR (BEAKER) (test 7 mL/min/1.73 ESTIMAT ED GFR IS code = 1092) sq m NOT ACCURATE CREATININE CLEARANCE IN PREDICTING GLOMERULAR FILTRATION RATE . ESTIMATED GFR I S NOT APPLICABLE FOR DIALYSIS PATIEN TS. [id number] 07:18:00 Test Item Value Reference Range Interpretation Comments MAGNESIUM (BEAKER) (test code = 1.7 mg/dL 1.6-2.6 627) [id number] 06:48:00 Test Item Value Reference Range Interpretation Comments PROTIME (BEAKER) (test code = 15.0 seconds 11.7-14.7 H 759) INR (BEAKER) (test code = 370) 1.2 <=5.9 PARTIAL THROMBOPLASTIN TIME 103.5 seconds 22.5-36.0 H (BEAKER) (test code = 760) RECOMMENDED COUMADIN/WARFARIN INR THERAPY RANGESSTANDARD DOSE: 2.0 - 3.0 Includes: PROPHYLAXIS forvenous thrombosis, systemic embolization; TREATMENT for venous thrombosis and/or pulmonary embolus.HIGH RISK: Target INR is 2.5-3.5 for patients with mechanical heart valves.CBC W/PLT COUNT & AUTO DIFFERENTIAL 2017-01-04 06:44:00 Test Item Value Reference Range Interpretation Comments WHITE BLOOD CELL COUNT (BEAKER) 6.8 K/ L 3.5-10.5 (test code = 775) RED BLOOD CELL COUNT (BEAKER) 2.94 M/ L 3.93-5.22 L (test code = 761) HEMOGLOBIN (BEAKER) (test code = 8.3 GM/DL 11.2-15.7 L 410) HEMATOCRIT (BEAKER) (test code = 26.9 % 34.1-44.9 L 411) MEAN CORPUSCULAR VOLUME (BEAKER) 91.5 fL 79.4-94.8 (test code = 753) MEAN CORPUSCULAR HEMOGLOBIN 28.2 pg 25.6-32.2 (BEAKER) (test code = 751) MEAN CORPUSCULAR HEMOGLOBIN CONC 30.9 GM/DL 32.2-35.5 L (BEAKER) (test code = 752) RED CELL DISTRIBUTION WIDTH 14.1 % 11.7-14.4 (BEAKER) (test code = 412) PLATELET COUNT (BEAKER) (test 148 K/CU MM 150-450 L code = 756) MEAN PLATELET VOLUME (BEAKER) 11.2 fL 9.4-12.3 (test code = 754) NUCLEATED RED BLOOD CELLS 0 /100 WBC 0-0 (BEAKER) (test code = 413) NEUTROPHILS RELATIVE PERCENT 64 % (BEAKER) (test code = 429) LYMPHOCYTES RELATIVE PERCENT 15 % (BEAKER) (test code = 430) MONOCYTES RELATIVE PERCENT 16 % (BEAKER) (test code = 431) EOSINOPHILS RELATIVE PERCENT 5 % (BEAKER) (test code = 432) BASOPHILS RELATIVE PERCENT 0 % (BEAKER) (test code = 437) NEUTROPHILS ABSOLUTE COUNT 4.36 K/ L 1.56-6.13 (BEAKER) (test code = 670) LYMPHOCYTES ABSOLUTE COUNT 1.05 K/ L 1.18-3.74 L (BEAKER) (test code = 414) MONOCYTES ABSOLUTE COUNT (BEAKER) 1.06 K/ L 0.24-0.36 H (test code = 415) EOSINOPHILS ABSOLUTE COUNT 0.32 K/ L 0.04-0.36 (BEAKER) (test code = 416) BASOPHILS ABSOLUTE COUNT (BEAKER) 0.03 K/ L 0.01-0.08 (test code = 417) IMMATURE GRANULOCYTES-RELATIVE 0 % 0-1 PERCENT (BEAKER) (test code = 2801) POCT-GLUCOSE [id number] 01:01:00 Test Item Value Reference Range Interpretation Comments POC-GLUCOSE METER 96 mg/dL 70-110 TESTED AT [facility] [address] ([facility]) (test code = [place] [address] 1538) TROPONIN [id number] 00:46:00 Test Item Value Reference Range Interpretation Comments TROPONIN I (BEAKER) (test code = 0.16 ng/mL 0.00-0.03 H 397) Troponin I (TnI) levels must be interpreted [...] failure, acidosis, acute neurological disease, and persistent tachyarrhythmia.[id number] 00:21:00 Test Item Value Reference Range Interpretation Comments PROTIME [facility] (test code = 15.8 seconds 11.7-14.7 H 759) INR ([facility]) (test code = 370) 1.3 <=5.9 PARTIAL THROMBOPLASTIN TIME 78.1 seconds 22.5-36.0 H ([facility]) (test code = 760) RECOMMENDED COUMADIN/WARFARIN INR THERAPY RANGESSTANDARD DOSE: 2.0 - 3.0 Includes: PROPHYLAXIS forvenous thrombosis, systemic embolization; TREATMENT for venous thrombosis and/or pulmonary embolus.HIGH RISK: Target INR is 2.5-3.5 for patients with mechanical heart valves.POCT-GLUCOSE [id number] 21:58:00 Test Item Value Reference Range Interpretation Comments POC-GLUCOSE METER 142 mg/dL 70-110 H TESTED AT [facility] [address] ([facility]) (test code = [place] 1538) [address] VANCOMYCIN LEVEL, [id number] 20:19:00 Test Item Value Reference Range Interpretation Comments VANCOMYCIN RANDOM ([facility]) (test 18.4 ug/mL code = 523) Reference Range: No NormalsTROPONIN [id number] 18:36:00 Test Item Value Reference Range Interpretation Comments TROPONIN I ([facility]) (test code = 0.18 ng/mL 0.00-0.03 H 397) Troponin I (TnI) levels must be interpreted [...] acidosis, acute neurological disease, and persistent tachyarrhythmia.POCT-GLUCOSE [id number] 18:30:00 Test Item Value Reference Range Interpretation Comments POC-GLUCOSE METER 119 mg/dL 70-110 H TESTED AT [place] [address] ([facility]) (test code = TANISHA [place] [facility] 1538) [address] HEMOGLOBIN [id number] 18:21:00 Test Item Value Reference Range Interpretation Comments HEMOGLOBIN A1C ([facility]) (test code = 6.3 % 4.3-6.1 H 368) POCT-GLUCOSE [id number] 18:00:00 Test Item Value Reference Range Interpretation Comments POC-GLUCOSE METER 57 mg/dL 70-110 L TESTED AT [place] [address] ([facility]) (test code = TANISHA Hutson [facility] [address] 1538) [id number] 16:34:00 Test Item Value Reference Range Interpretation Comments PARTIAL THROMBOPLASTIN TIME 99.2 seconds 22.5-36.0 H ([facility]) (test code = 760) [id number] 15:36:00 Test Item Value Reference Range Interpretation Comments PARTIAL THROMBOPLASTIN TIME 123.9 seconds 22.5-36.0 H ([facility]) (test code = 760) [id number] 13:38:00 Test Item Value Reference Range Interpretation Comments PARTIAL THROMBOPLASTIN TIME > seconds 22.5-36.0 HH ([facility]) (test code = 760) TROPONIN [id number] 13:27:00 Test Item Value Reference Range Interpretation Comments TROPONIN I ([facility]) (test code = 0.19 ng/mL 0.00-0.03 H 397) Troponin I (TnI) levels must be interpreted [...] acidosis, acute neurological disease, and persistent tachyarrhythmia.POCT-GLUCOSE [id number] 13:25:00 Test Item Value Reference Range Interpretation Comments POC-GLUCOSE METER 120 mg/dL 70-110 H TESTED AT [place] [address] ([facility]) (test [facility] = [facility] 1538) [address] POCT-GLUCOSE [id number] 09:50:00 Test Item Value Reference Range Interpretation Comments POC-GLUCOSE METER 85 mg/dL 70-110 TESTED AT [facility] [address] (BEAKER) (test code = [place] [address] 1538) TROPONIN [id number] 08:31:00 Test Item Value Reference Range Interpretation Comments TROPONIN I (BEAKER) (test code = 0.20 ng/mL 0.00-0.03 HH 397) Troponin I (TnI) levels must be interpreted [...] failure, acidosis, acute neurological disease, and persistent tachyarrhythmia.[id number] 03:35:00 Test Item Value Reference Range Interpretation Comments PARTIAL THROMBOPLASTIN TIME 39.1 seconds 22.5-36.0 H (BEAKER) (test code = 760) BASIC METABOLIC [id number] 03:34:00 Test Item Value Reference Range Interpretation Comments SODIUM (BEAKER) 134 meq/L 136-145 L (test code = 381) POTASSIUM (BEAKER) 5.0 meq/L 3.5-5.1 (test code = 379) CHLORIDE (BEAKER) 100 meq/L 98-107 (test code = 382) CO2 (BEAKER) (test 24 meq/L 22-29 code = 355) BLOOD UREA NITROGEN 50 mg/dL 7-21 H (BEAKER) (test code = 354) CREATININE (BEAKER) 11.51 mg/dL 0.57-1.25 H (test code = 358) GLUCOSE RANDOM 105 mg/dL 70-105 (BEAKER) (test code = 652) CALCIUM (BEAKER) 8.0 mg/dL 8.4-10.2 L (test code = 697) EGFR (BEAKER) (test 4 mL/min/1.73 ESTIMAT ED GFR IS code = 1092) sq m NOT ACCURATE CREATININE CLEARANCE IN PREDICTING GLOMERULAR FILTRATION RATE . ESTIMATED GFR I S NOT APPLICABLE FOR DIALYSIS PATIEN TS. [id number] 03:32:00 Test Item Value Reference Range Interpretation Comments MAGNESIUM (BEAKER) (test code = 1.5 mg/dL 1.6-2.6 L 627) CBC W/PLT COUNT & AUTO [id number] 03:17:00 Test Item Value Reference Range Interpretation Comments WHITE BLOOD CELL COUNT (BEAKER) 6.6 K/ L 3.5-10.5 (test code = 775) RED BLOOD CELL COUNT (BEAKER) 3.10 M/ L 3.93-5.22 L (test code = 761) HEMOGLOBIN (BEAKER) (test code = 8.8 GM/DL 11.2-15.7 L 410) HEMATOCRIT (BEAKER) (test code = 28.3 % 34.1-44.9 L 411) MEAN CORPUSCULAR VOLUME (BEAKER) 91.3 fL 79.4-94.8 (test code = 753) MEAN CORPUSCULAR HEMOGLOBIN 28.4 pg 25.6-32.2 (BEAKER) (test code = 751) MEAN CORPUSCULAR HEMOGLOBIN CONC 31.1 GM/DL 32.2-35.5 L (BEAKER) (test code = 752) RED CELL DISTRIBUTION WIDTH 14.1 % 11.7-14.4 (BEAKER) (test code = 412) PLATELET COUNT (BEAKER) (test 150 K/CU MM 150-450 code = 756) MEAN PLATELET VOLUME (BEAKER) 10.6 fL 9.4-12.3 (test code = 754) NUCLEATED RED BLOOD CELLS 0 /100 WBC 0-0 (BEAKER) (test code = 413) NEUTROPHILS RELATIVE PERCENT 74 % (BEAKER) (test code = 429) LYMPHOCYTES RELATIVE PERCENT 11 % (BEAKER) (test code = 430) MONOCYTES RELATIVE PERCENT 10 % (BEAKER) (test code = 431) EOSINOPHILS RELATIVE PERCENT 4 % (BEAKER) (test code = 432) BASOPHILS RELATIVE PERCENT 1 % (BEAKER) (test code = 437) NEUTROPHILS ABSOLUTE COUNT 4.91 K/ L 1.56-6.13 (BEAKER) (test code = 670) LYMPHOCYTES ABSOLUTE COUNT 0.74 K/ L 1.18-3.74 L (BEAKER) (test code = 414) MONOCYTES ABSOLUTE COUNT (BEAKER) 0.65 K/ L 0.24-0.36 H (test code = 415) EOSINOPHILS ABSOLUTE COUNT 0.29 K/ L 0.04-0.36 (BEAKER) (test code = 416) BASOPHILS ABSOLUTE COUNT (BEAKER) 0.03 K/ L 0.01-0.08 (test code = 417) IMMATURE GRANULOCYTES-RELATIVE 0 % 0-1 PERCENT (BEAKER) (test code = 2801) TROPONIN [id number] 01:22:00 Test Item Value Reference Range Interpretation Comments TROPONIN I (BEAKER) (test code = 0.19 ng/mL 0.00-0.03 H 397) Troponin I (TnI) levels must be interpreted [...] acidosis, acute neurological disease, and persistent tachyarrhythmia.POCT-GLUCOSE [id number] 00:49:00 Test Item Value Reference Range Interpretation Comments POC-GLUCOSE METER 74 mg/dL 70-110 TESTED AT [facility] [address] ([facility]) (test code = [facility] [address]38) TROPONIN [id number] 18:57:00 Test Item Value Reference Range Interpretation Comments TROPONIN I (BEAKER) (test code = 0.17 ng/mL 0.00-0.03 H 397) Troponin I (TnI) levels must be interpreted [...] acute neurological disease, and persistent tachyarrhythmia.VANCOMYCIN LEVEL, [id number] 18:52:00 Test Item Value Reference Range Interpretation Comments VANCOMYCIN RANDOM (BEAKER) (test 29.2 ug/mL code = 523) Reference Range: No NormalsLACTATE DEHYDROGENASE ([facility]H)2017-01-02 18:46:00 Test Item Value Reference Range Interpretation Comments LACTATE DEHYDROGENASE (BEAKER) (test 300 U/L 125-220 H code = 635) BODY FLUID CELL COUNT WITH [id number] 18:36:00 Test Item Value Reference Range Interpretation Comments APPEARANCE FLUID (BEAKER) Slightly Hazy Clear A (test code = 510) COLOR FLUID (BEAKER) (test Yellow Colorless, Straw A code = 511) RBC FLUID (BEAKER) (test code 690 /cu mm <=1 H = 513) ADJUSTED WBC FLUID (BEAKER) 68 /cu mm <=5 H (test code = 1691) LINING CELLS (BEAKER) (test 2 /cu mm <=1 H code = 1590) NEUTROPHILS FLUID (BEAKER) 2 % (test code = 1656) LYMPHS FLUID (BEAKER) (test 9 % code = 488) MONO/MACROPHAGE FLUID (BEAKER) 89 % (test code = 489) EOSINOPHILS FLUID (BEAKER) 0 % (test code = 491) BASO FLUID (BEAKER) (test code 0 % = 492) CONTAINER BODY FLUID (BEAKER) EDTA Tube (test code = 2873) RAD, CHEST, 1 VIEW, NON [id number] 18:36:00PT started dialysis 07/12/2015 Reason for exam:->s/p thoraFINAL REPORT Comparison: 01/01/2017 TECHNIQUE: Single view of the chest FINDINGS: Right pleural effusion has decreased. No pneumothorax bilaterally. No other significant change. Signed: Turner Grier MDReport Verified Date/Time: 01/02/2017 18:36:30 Reading Location: [address] Consult Reading Room PH, BODY [id number] 18:22:00 Test Item Value Reference Range Interpretation Comments PH, BODY FLUID (BEAKER) (test code = 7.80 1530) POCT-GLUCOSE [id number] 18:19:00 Test Item Value Reference Range Interpretation Comments POC-GLUCOSE METER 91 mg/dL 70-110 TESTED AT [facility] [address] (BEAKER) (test code = [place] [address] 1538) LACTATE DEHYDROGENASE (LDH), BODY [id number] 18:04:00 Test Item Value Reference Range Interpretation Comments LACTATE DEHYDROGENASE FLUID 123 U/L Light's criteria (BEAKER) (test code = 634) identifies effusions if one or more are pre Absence of reference range indicates that normals have not been defined.Assay performance has not been validated for this type of specimen.PROTEIN, BODY FLUID 2017-01-02 18:04:00 Test Item Value Reference Range Interpretation Comments PROTEIN FLUID (BEAKER) 2.1 g/dL Light's criteria identifies (test code = 579) effusions if one or more are pre Absence of reference range indicates that normals have not been defined.Assay performance has not been validated for this type of specimen.HEPATITIS B PANEL 2017-01-02 13:51:00 Test Item Value Reference Range Interpretation Comments HEPATITIS B CORE TOTAL ANTIBODY Nonreactive Nonreactive (BEAKER) (test code = 497) HEPATITIS B SURFACE ANTIBODY 29.1 mIU/mL <8.0 H (BEAKER) (test code = 647) HEPATITIS B SURFACE ANTIGEN (2) Nonreactive Nonreactive (BEAKER) (test code = 2585) CREATINE KINASE (CK), TOTAL AND [id number] 13:09:00 Test Item Value Reference Range Interpretation Comments CREATINE KINASE TOTAL (BEAKER) 285 U/L 29-200 H (test code = 380) CREATINE KINASE-MB (BEAKER) (test 15.2 ng/mL 0.0-6.6 H code = 750) CREATINE KINASE-MB INDEX (BEAKER) 5.3 % (test code = 395) CK-MB Reference Range:<6.7 Normal6.7-10.0 Borderline>10.0 AbnormalTROPONIN [id number] 13:09:00 Test Item Value Reference Range Interpretation Comments TROPONIN I (BEAKER) (test code = 0.18 ng/mL 0.00-0.03 H 397) Troponin I (TnI) levels must be interpreted [...] acidosis, acute neurological disease, and persistent tachyarrhythmia.POCT-GLUCOSE [id number] 12:25:00 Test Item Value Reference Range Interpretation Comments POC-GLUCOSE METER 95 mg/dL 70-110 TESTED AT [facility] [address] ([facility]) (test code = TANISHA Hutson [facility] [address]) POCT-GLUCOSE [id number] 11:56:00 Test Item Value Reference Range Interpretation Comments POC-GLUCOSE METER 65 mg/dL 70-110 L Notified Caryl Powers MD/TESTED AT (BEAKER) (test code = [facility] [address] 1538) [facility] [address] BASIC METABOLIC [id number] 06:05:00 Test Item Value Reference Range Interpretation Comments SODIUM (BEAKER) 133 meq/L 136-145 L (test code = 381) POTASSIUM (BEAKER) 4.5 meq/L 3.5-5.1 (test code = 379) CHLORIDE (BEAKER) 98 meq/L 98-107 (test code = 382) CO2 (BEAKER) (test 27 meq/L 22-29 code = 355) BLOOD UREA NITROGEN 48 mg/dL 7-21 H (BEAKER) (test code = 354) CREATININE (BEAKER) 10.70 mg/dL 0.57-1.25 H (test code = 358) GLUCOSE RANDOM 77 mg/dL 70-105 (BEAKER) (test code = 652) CALCIUM (BEAKER) 8.7 mg/dL 8.4-10.2 (test code = 697) EGFR (BEAKER) (test 5 mL/min/1.73 ESTIMAT ED GFR IS code = 1092) sq m NOT ACCURATE CREATININE CLEARANCE IN PREDICTING GLOMERULAR FILTRATION RATE . ESTIMATED GFR I S NOT APPLICABLE FOR DIALYSIS PATIEN TS. TROPONIN [id number] 06:04:00 Test Item Value Reference Range Interpretation Comments TROPONIN I (BEAKER) (test code = 0.23 ng/mL 0.00-0.03 397) Troponin I (TnI) levels must be interpreted [...] failure, acidosis, acute neurological disease, and persistent tachyarrhythmia.[id number] 06:03:00 Test Item Value Reference Range Interpretation Comments MAGNESIUM (BEAKER) (test code = 1.9 mg/dL 1.6-2.6 627) CBC W/PLT COUNT & AUTO [id number] 05:59:00 Test Item Value Reference Range Interpretation Comments WHITE BLOOD CELL COUNT (BEAKER) 7.9 K/ L 3.5-10.5 (test code = 775) RED BLOOD CELL COUNT (BEAKER) 3.72 M/ L 3.93-5.22 L (test code = 761) HEMOGLOBIN (BEAKER) (test code = 10.5 GM/DL 11.2-15.7 L 410) HEMATOCRIT (BEAKER) (test code = 33.7 % 34.1-44.9 L 411) MEAN CORPUSCULAR VOLUME (BEAKER) 90.6 fL 79.4-94.8 (test code = 753) MEAN CORPUSCULAR HEMOGLOBIN 28.2 pg 25.6-32.2 (BEAKER) (test code = 751) MEAN CORPUSCULAR HEMOGLOBIN CONC 31.2 GM/DL 32.2-35.5 L (BEAKER) (test code = 752) RED CELL DISTRIBUTION WIDTH 14.4 % 11.7-14.4 (BEAKER) (test code = 412) PLATELET COUNT (BEAKER) (test 160 K/CU MM 150-450 code = 756) MEAN PLATELET VOLUME (BEAKER) 10.3 fL 9.4-12.3 (test code = 754) NUCLEATED RED BLOOD CELLS 0 /100 WBC 0-0 (BEAKER) (test code = 413) NEUTROPHILS RELATIVE PERCENT 80 % (BEAKER) (test code = 429) LYMPHOCYTES RELATIVE PERCENT 8 % (BEAKER) (test code = 430) MONOCYTES RELATIVE PERCENT 9 % (BEAKER) (test code = 431) EOSINOPHILS RELATIVE PERCENT 2 % (BEAKER) (test code = 432) BASOPHILS RELATIVE PERCENT 1 % (BEAKER) (test code = 437) NEUTROPHILS ABSOLUTE COUNT 6.31 K/ L 1.56-6.13 H (BEAKER) (test code = 670) LYMPHOCYTES ABSOLUTE COUNT 0.62 K/ L 1.18-3.74 L (BEAKER) (test code = 414) MONOCYTES ABSOLUTE COUNT (BEAKER) 0.67 K/ L 0.24-0.36 H (test code = 415) EOSINOPHILS ABSOLUTE COUNT 0.18 K/ L 0.04-0.36 (BEAKER) (test code = 416) BASOPHILS ABSOLUTE COUNT (BEAKER) 0.04 K/ L 0.01-0.08 (test code = 417) IMMATURE GRANULOCYTES-RELATIVE 0 % 0-1 PERCENT (BEAKER) (test code = 2801) TROPONIN [id number] 01:42:00 Test Item Value Reference Range Interpretation Comments TROPONIN I (BEAKER) (test code = 0.23 ng/mL 0.00-0.03 HH 397) Troponin I (TnI) levels must be interpreted [...] acute neurological disease, and persistent tachyarrhythmia.BASIC METABOLIC [id number] 01:37:00 Test Item Value Reference Range Interpretation Comments SODIUM (BEAKER) 136 meq/L 136-145 (test code = 381) POTASSIUM (BEAKER) 5.6 meq/L 3.5-5.1 H (test code = 379) CHLORIDE (BEAKER) 100 meq/L 98-107 (test code = 382) CO2 (BEAKER) (test 24 meq/L 22-29 code = 355) BLOOD UREA NITROGEN 66 mg/dL 7-21 H (BEAKER) (test code = 354) CREATININE (BEAKER) 15.28 mg/dL 0.57-1.25 H (test code = 358) GLUCOSE RANDOM 70 mg/dL 70-105 (BEAKER) (test code = 652) CALCIUM (BEAKER) 8.4 mg/dL 8.4-10.2 (test code = 697) EGFR (BEAKER) (test 3 mL/min/1.73 ESTIMAT ED GFR IS code = 1092) sq m NOT ACCURATE CREATININE CLEARANCE IN PREDICTING GLOMERULAR FILTRATION RATE . ESTIMATED GFR I S NOT APPLICABLE FOR DIALYSIS PATIEN TS. [id number] 01:30:00 Test Item Value Reference Range Interpretation Comments MAGNESIUM (BEAKER) (test code = 1.5 mg/dL 1.6-2.6 L 627) POCT-GLUCOSE [id number] 00:03:00 Test Item Value Reference Range Interpretation Comments POC-GLUCOSE METER 76 mg/dL 70-110 [facility] [facility] (test code = TANISHA BYRD [id number]) POCT-GLUCOSE [id number] 22:26:00 Test Item Value Reference Range Interpretation Comments POC-GLUCOSE METER 60 mg/dL 70-110 L TESTED AT [facility] [address] (BEAKER) (test code = TANISHA Hutson [facility] [id number]) TROPONIN [id number] 21:46:00 Test Item Value Reference Range Interpretation Comments TROPONIN I (BEAKER) (test code = 0.23 ng/mL 0.00-0.03 HH 397) Troponin I (TnI) levels must be interpreted [...] acute neurological disease, and persistent tachyarrhythmia.BASIC METABOLIC [id number] 21:38:00 Test Item Value Reference Range Interpretation Comments SODIUM (BEAKER) 135 meq/L 136-145 L (test code = 381) POTASSIUM (BEAKER) 6.0 meq/L 3.5-5.1 HH (test code = 379) CHLORIDE (BEAKER) 97 meq/L 98-107 L (test code = 382) CO2 (BEAKER) (test 26 meq/L 22-29 code = 355) BLOOD UREA NITROGEN 78 mg/dL 7-21 H (BEAKER) (test code = 354) CREATININE (BEAKER) 17.30 mg/dL 0.57-1.25 H (test code = 358) GLUCOSE RANDOM 66 mg/dL 70-105 L (BEAKER) (test code = 652) CALCIUM (BEAKER) 8.5 mg/dL 8.4-10.2 (test code = 697) EGFR (BEAKER) (test 3 mL/min/1.73 ESTIMAT ED GFR IS code = 1092) sq m NOT ACCURATE CREATININE CLEARANCE IN PREDICTING GLOMERULAR FILTRATION RATE . ESTIMATED GFR I S NOT APPLICABLE FOR DIALYSIS PATIEN TS. [id number] 21:35:00 Test Item Value Reference Range Interpretation Comments MAGNESIUM (BEAKER) (test code = 1.6 mg/dL 1.6-2.6 627) [id number] 21:34:00 Test Item Value Reference Range Interpretation Comments PHOSPHORUS (BEAKER) (test code = 7.7 mg/dL 2.3-4.7 H 604) RAD, CHEST, 1 VIEW, NON [id number] 21:30:00PT started dialysis 07/12/2015Reason for exam:->Line placementShould this be performed at the bedside?->YesFINAL REPORT RAD, CHEST, 1 VIEW, NON DEPT [...] JR Astorga Robert MDReport Verified Date/Time: 01/01/2017 21:30:48 Reading Location: [address] Body Reading Room BODY FLUID CELL COUNT WITH [id number] 20:13:00 Test Item Value Reference Range Interpretation Comments APPEARANCE FLUID (BEAKER) (test Cloudy Clear A code = 510) COLOR FLUID (BEAKER) (test code Straw Colorless, Straw = 511) RBC FLUID (BEAKER) (test code = 2071 /cu mm <=1 H 513) ADJUSTED WBC FLUID (BEAKER) 156 /cu mm <=5 H (test code = 1691) LINING CELLS (BEAKER) (test code 2 /cu mm <=1 H = 1590) NEUTROPHILS FLUID (BEAKER) (test 3 % code = 1656) LYMPHS FLUID (BEAKER) (test code 42 % = 488) MONO/MACROPHAGE FLUID (BEAKER) 55 % (test code = 489) EOSINOPHILS FLUID (BEAKER) (test 0 % code = 491) BASO FLUID (BEAKER) (test code = 0 % 492) CONTAINER BODY FLUID (BEAKER) EDTA Tube (test code = 2873) COMPREHENSIVE METABOLIC [id number] 19:19:00 Test Item Value Reference Range Interpretation Comments TOTAL PROTEIN 7.3 gm/dL 6.0-8.3 Specimen sligh tly (BEAKER) (test code = hemoly zed 770) ALBUMIN (BEAKER) 2.4 g/dL 3.5-5.0 L Specimen sl ightly (test code = 1145) hemolyzed ALKALINE PHOSPHATASE 74 U/L 40-150 (BEAKER) (test code = 346) BILIRUBIN TOTAL 0.5 mg/dL 0.2-1.2 Specimen sli ghtly (BEAKER) (test code = hemoly zed 377) SODIUM (BEAKER) (test 135 meq/L 136-145 L code = 381) POTASSIUM (BEAKER) 5.7 meq/L 3.5-5.1 H Specimen slightly (test code = 379) hemolyzed CHLORIDE (BEAKER) 97 meq/L 98-107 L (test code = 382) CO2 (BEAKER) (test 26 meq/L 22-29 code = 355) BLOOD UREA NITROGEN 72 mg/dL 7-21 H (BEAKER) (test code = 354) CREATININE (BEAKER) 17.18 mg/dL 0.57-1.25 H Specimen slightly (test code = 358) hemolyzed GLUCOSE RANDOM 70 mg/dL 70-105 (BEAKER) (test code = 652) CALCIUM (BEAKER) 8.8 mg/dL 8.4-10.2 (test code = 697) AST (SGOT) (BEAKER) 37 U/L 5-34 H Specimen slightly (test code = 353) hemolyzed ALT (SGPT) (BEAKER) 30 U/L 6-55 Specimen slightly (test code = 347) hemolyzed EGFR (BEAKER) (test 3 mL/min/1.73 ESTIMAT ED GFR IS code = 1092) sq m NOT ACCURATE CREATININE CLEARANCE IN PREDICTING GLOMERULAR FILTRATION RATE . ESTIMATED GFR I S NOT APPLICABLE FOR DIALYSIS PATIEN TS. RAD, CHEST, 1 VIEW, NON [id number] 18:48:00PT started dialysis 07/12/2015 Reason for exam:->s/p left thoracentesis Should this be performed at the bedside?->YesFINAL REPORT Comparison: 01/01/2017 TECHNIQUE: Single view of the chest FINDINGS: Left pleural effusion has decreased. No pneumothorax bilaterally. Interval placement of a right internal jugular catheter. Tip projects in the mid SVC. No other gross change. Signed: Turner Grier MDReport Verified Date/Time: 01/01/2017 18:48:26 Reading Location: [facility] C013T Transitional Reading Room POCT-GLUCOSE [id number] 18:23:00 Test Item Value Reference Range Interpretation Comments POC-GLUCOSE METER 79 mg/dL 70-110 TESTED AT [place] [address] [facility] (test code = TANISHA Hutson [facility] [address] 1538) [id number] 18:09:00 Test Item Value Reference Range Interpretation Comments AMMONIA (BEAKER) (test 9 mol/L 18-72 L Speci men markedly code = 348) hemolyzed [id number] 18:08:00 Test Item Value Reference Range Interpretation Comments MAGNESIUM (BEAKER) 2.8 mg/dL 1.6-2.6 H Specimen markedly (test code = 627) hemolyzed [id number] 18:08:00 Test Item Value Reference Range Interpretation Comments PHOSPHORUS (BEAKER) 8.1 mg/dL 2.3-4.7 H Specimen markedly (test code = 604) hemolyzed POCT-GLUCOSE [id number] 18:07:00 Test Item Value Reference Range Interpretation Comments POC-GLUCOSE METER 81 mg/dL 70-110 TESTED AT [place] [address] ([facility] (test code = [place] [address] 1538) LACTIC ACID, ARTERIAL, WHOLE [id number] 17:14:00 Test Item Value Reference Range Interpretation Comments LACTATE BLOOD 0.9 mmol/L 0.5-2.2 Specimen sligh tly ARTERIAL (2) (BEAKER) hemoly zed (test code = 2874) Effective 07/15/2015: Units/Reference Range ChangeNew: 0.5-2.2 mmol/L Previous: 5-20 mg/[id number] 17:12:00 Test Item Value Reference Range Interpretation Comments PROCALCITONIN (BEAKER) (test code 0.72 ng/mL <0.05 H = 3036) SEPSIS RISK (ng/mL)Low: 0.05-0.50Intermediate: 0.51-2.00High: >=2.01TROPONIN [id number] 16:56:00 Test Item Value Reference Range Interpretation Comments TROPONIN I (BEAKER) (test code = 0.25 ng/mL 0.00-0.03 HH 397) Troponin I (TnI) levels must be interpreted [...] and persistent tachyarrhythmia.CREATINE KINASE (CK), TOTAL AND MB 2017-01-01 16:52:00 Test Item Value Reference Range Interpretation Comments CREATINE KINASE TOTAL (BEAKER) 662 U/L 29-200 H (test code = 380) CREATINE KINASE-MB (BEAKER) (test 17.6 ng/mL 0.0-6.6 H code = 750) CREATINE KINASE-MB INDEX (BEAKER) 2.7 % (test code = 395) CK-MB Reference Range:<6.7 Normal6.7-10.0 Borderline>10.0 AbnormalB-TYPE NATRIURETIC FACTOR (BNP)2017-01-01 16:52:00 Test Item Value Reference Range Interpretation Comments B-TYPE NATRIURETIC PEPTIDE 2749 pg/mL 0-100 H (BEAKER) (test code = 700) BLOOD GAS, [id number] 16:50:00 Test Item Value Reference Range Interpretation Comments PH ARTERIAL (BEAKER) (test code = 7.40 7.35-7.45 383) PCO2 ARTERIAL (BEAKER) (test code 48 mmHg 35-45 H = 384) PO2 ARTERIAL (BEAKER) (test code = 80 mmHg 80-90 385) O2 SATURATION ARTERIAL (BEAKER) 96.0 % 96.0-97.0 (test code = 386) HCO3 ARTERIAL (BEAKER) (test code 29 mmol/L 21-29 = 388) BASE EXCESS ARTERIAL (BEAKER) 3.6 mmol/L -2.0-3.0 H (test code = 387) PATIENT TEMPERATURE (BEAKER) (test 36.5 C code = 1818) FIO2 (BEAKER) (test code = 1819) 21.0 % [id number] 16:46:00 Test Item Value Reference Range Interpretation Comments PHOSPHORUS (BEAKER) 7.9 mg/dL 2.3-4.7 H Specimen markedly (test code = 604) hemolyzed [id number] 16:46:00 Test Item Value Reference Range Interpretation Comments LIPASE (BEAKER) (test code = 749) 38 U/L 8-78 CALCIUM, [id number] 16:46:00 Test Item Value Reference Range Interpretation Comments CALCIUM IONIZED (BEAKER) (test 1.00 mmol/L 1.12-1.27 L code = 698) PH, BLOOD (BEAKER) (test code = 7.36 1810) PROTHROMBIN TIME/[id number] 16:43:00 Test Item Value Reference Range Interpretation Comments PROTIME (BEAKER) (test code = 16.2 seconds 11.7-14.7 H 759) INR (BEAKER) (test code = 370) 1.3 <=5.9 RECOMMENDED COUMADIN/WARFARIN INR THERAPY RANGESSTANDARD DOSE: 2.0 - 3.0 Includes: PROPHYLAXIS forvenous thrombosis, systemic embolization; TREATMENT for venous thrombosis and/or pulmonary embolus.HIGH RISK: Target INR is 2.5-3.5 for patients with mechanical heart valves.CBC W/PLT COUNT & AUTO DIFFERENTIAL 2017-01-01 16:30:00 Test Item Value Reference Range Interpretation Comments WHITE BLOOD CELL COUNT (BEAKER) 6.9 K/ L 3.5-10.5 (test code = 775) RED BLOOD CELL COUNT (BEAKER) 3.41 M/ L 3.93-5.22 L (test code = 761) HEMOGLOBIN (BEAKER) (test code = 9.9 GM/DL 11.2-15.7 L 410) HEMATOCRIT (BEAKER) (test code = 30.7 % 34.1-44.9 L 411) MEAN CORPUSCULAR VOLUME (BEAKER) 90.0 fL 79.4-94.8 (test code = 753) MEAN CORPUSCULAR HEMOGLOBIN 29.0 pg 25.6-32.2 (BEAKER) (test code = 751) MEAN CORPUSCULAR HEMOGLOBIN CONC 32.2 GM/DL 32.2-35.5 (BEAKER) (test code = 752) RED CELL DISTRIBUTION WIDTH 14.6 % 11.7-14.4 H (BEAKER) (test code = 412) PLATELET COUNT (BEAKER) (test 235 K/CU MM 150-450 code = 756) MEAN PLATELET VOLUME (BEAKER) 11.2 fL 9.4-12.3 (test code = 754) NUCLEATED RED BLOOD CELLS 0 /100 WBC 0-0 (BEAKER) (test code = 413) NEUTROPHILS RELATIVE PERCENT 76 % (BEAKER) (test code = 429) LYMPHOCYTES RELATIVE PERCENT 12 % (BEAKER) (test code = 430) MONOCYTES RELATIVE PERCENT 10 % (BEAKER) (test code = 431) EOSINOPHILS RELATIVE PERCENT 1 % (BEAKER) (test code = 432) BASOPHILS RELATIVE PERCENT 0 % (BEAKER) (test code = 437) NEUTROPHILS ABSOLUTE COUNT 5.23 K/ L 1.56-6.13 (BEAKER) (test code = 670) LYMPHOCYTES ABSOLUTE COUNT 0.86 K/ L 1.18-3.74 L (BEAKER) (test code = 414) MONOCYTES ABSOLUTE COUNT (BEAKER) 0.68 K/ L 0.24-0.36 H (test code = 415) EOSINOPHILS ABSOLUTE COUNT 0.10 K/ L 0.04-0.36 (BEAKER) (test code = 416) BASOPHILS ABSOLUTE COUNT (BEAKER) 0.02 K/ L 0.01-0.08 (test code = 417) IMMATURE GRANULOCYTES-RELATIVE 0 % 0-1 PERCENT (BEAKER) (test code = 2801) RAD, CHEST, 1 VIEW, NON [id number] 15:22:00PT started dialysis 07/12/2015Post-intubationReason for exam:->sobShould this be performed at the bedside?->YesFINAL REPORT Comparison: 06/07/2016 TECHNIQUE: Single view of the chest FINDINGS: There is a moderate to large left pleural effusion and moderate right pleural effusion with nonspecific adjacent airspace disease. Cardiac silhouette is obscured. No gross pneumothorax. No acute skeletal abnormality. Signed: Turner Griereport Verified Date/Time: 01/01/2017 15:22:20 Reading Location: [address] Transitional Reading Room BODY FLUID CULTURE + GRAM [id number] 11:17:00 Test Item Value Reference Range Interpretation Comments CULTURE (BEAKER) (test code No growth = 1095) GRAM STAIN RESULT (BEAKER) <1+ WBCs (test code = 1123) GRAM STAIN RESULT (BEAKER) No organisms seen (test code = 45030) [id number] 15:47:00Medical Cytology Report Case: [id number] Authorizing Provider: Verena Carrero MD Collected: 12/12/2016 1540 Ordering Location: [facility] Laboratory Received: 12/13/2016 1002 Pathologist: Gokul Hood MD Specimen: Pl eural, Right RIGHT PLEURAL FLUID (CYTOSPINS): - NEGATIVE FOR MALIGNANT CELLS Signing Pathologist Direct Phone Line: [phone] signed by Gokul Hood MD on 12/13/2016 at 3:47 PMReactive mesothelialcells are noted.60821Bthqd pleural effusion; CHFRIGHT PLEURAL FLUID4 cytospins prepared from 200 ml yellow fluidCollected: [id number]: [id number] [facility], Departmentof Pathology, [address] [place] [address], [facility], [address] [place] [address], GXHIMUZU GRAVITY, BODY [id number] 15:33:00 Test Item Value Reference Range Interpretation Comments SP GRAVITY MISCELLANEOUS (BEAKER) (test 1.019 code = 557) Reference Range: No NormalsBODY FLUID [id number] 11:49:00 Test Item Value Reference Range Interpretation Comments CRYSTALS, BODY FLUID No crystals seen. (BEAKER) (test code = 2165) [id number] Anne Yen MD (BEAKER) (test code = (electronic signature) 9527) PH, BODY [id number] 00:24:00 Test Item Value Reference Range Interpretation Comments PH, BODY FLUID (BEAKER) (test code = 7.90 1530) BODY FLUID CELL COUNT WITH [id number] 19:53:00 Test Item Value Reference Range Interpretation Comments APPEARANCE FLUID (BEAKER) (test Clear Clear code = 510) COLOR FLUID (BEAKER) (test code = Straw Colorless, Straw 511) RBC FLUID (BEAKER) (test code = 1 /cu mm <=1 513) ADJUSTED WBC FLUID (BEAKER) (test 21 /cu mm <=5 H code = 1691) LINING CELLS (BEAKER) (test code = 0 /cu mm <=1 1590) NEUTROPHILS FLUID (BEAKER) (test 0 % code = 1656) LYMPHS FLUID (BEAKER) (test code = 8 % 488) MONO/MACROPHAGE FLUID (BEAKER) 92 % (test code = 489) EOSINOPHILS FLUID (BEAKER) (test 0 % code = 491) BASO FLUID (BEAKER) (test code = 0 % 492) CONTAINER BODY FLUID (BEAKER) EDTA Tube (test code = 2873) ALBUMIN, BODY [id number] 19:31:00 Test Item Value Reference Range Interpretation Comments ALBUMIN FLUID (BEAKER) (test code = 0.9 gm/dL 501) Reference Range: No Normals Assay performance has not been validated for this type of specimen.RIGHT THORACENTESIS, PLEURAL FLUIDRIGHT THORACENTESIS, PLEURAL FLUIDRIGHT THORACENTESIS, PLEURAL FLUIDRIGHT THORACENTESIS, PLEURAL FLUIDRIGHT THORACENTESIS, PLEURAL FLUIDRIGHT THORACENTESIS, PLEURAL FLUIDCREATININE, BODY [id number] 19:31:00 Test Item Value Reference Range Interpretation Comments CREATININE FLUID (BEAKER) (test 15.62 mg/dL code = 677) Reference Range: No Normals Assay performance has not been validated for this type of specimen.RIGHT THORACENTESIS, PLEURAL FLUIDRIGHT THORACENTESIS, PLEURAL FLUIDRIGHT THORACENTESIS, PLEURAL FLUIDRIGHT THORACENTESIS, PLEURAL FLUIDRIGHT THORACENTESIS, PLEURAL FLUIDRIGHT THORACENTESIS, PLEURAL FLUIDAMYLASE, BODY [id number] 19:27:00 Test Item Value Reference Range Interpretation Comments AMYLASE FLUID (BEAKER) (test code = 39 U/L 350) Absence of reference range indicates that normals have not been defined.Assay performance has not been validated for this type of specimen.RIGHT THORACENTESIS, PLEURAL FLUIDRIGHT THORACENTESIS, PLEURALFLUIDRIGHT THORACENTESIS, PLEURAL FLUIDRIGHT THORACENTESIS, PLEURAL FLUIDRIGHT THORACENTESIS, PLEURAL FLUIDRIGHT THORACENTESIS, PLEURAL FLUIDLACTATE DEHYDROGENASE (LDH), BODY [id number] 19:27:00 Test Item Value Reference Range Interpretation Comments LACTATE DEHYDROGENASE FLUID (BEAKER) 113 U/L (test code = 634) Absence of reference range indicates that normals have not been defined.Assay performance has not been validated for this type of specimen.RIGHT THORACENTESIS, PLEURAL FLUIDRIGHT THORACENTESIS, PLEURALFLUIDRIGHT THORACENTESIS, PLEURAL FLUIDRIGHT THORACENTESIS, PLEURAL FLUIDRIGHT THORACENTESIS, PLEURAL FLUIDRIGHT THORACENTESIS, PLEURAL FLUIDPROTEIN, BODY [id number] 19:27:00 Test Item Value Reference Range Interpretation Comments PROTEIN FLUID (BEAKER) (test code = 2.1 g/dL 579) Absence of reference range indicates that normals have not been defined.Assay performance has not been validated for this type of specimen.RIGHT THORACENTESIS, PLEURAL FLUIDRIGHT THORACENTESIS, PLEURALFLUIDRIGHT THORACENTESIS, PLEURAL FLUIDRIGHT THORACENTESIS, PLEURAL FLUIDRIGHT THORACENTESIS, PLEURAL FLUIDRIGHT THORACENTESIS, PLEURAL FLUIDGLUCOSE, BODY [id number] 19:27:00 Test Item Value Reference Range Interpretation Comments GLUCOSE, BODY FLUID (BEAKER) (test 172 mg/dL code = 1528) Absence of reference range indicates that normals have not been defined.Assay performance has not been validated for this type of specimen.RIGHT THORACENTESIS, PLEURAL FLUIDRIGHT THORACENTESIS, PLEURALFLUIDRIGHT THORACENTESIS, PLEURAL FLUIDRIGHT THORACENTESIS, PLEURAL FLUIDRIGHT THORACENTESIS, PLEURAL FLUIDRIGHT THORACENTESIS, PLEURAL FLUIDAFB CULTURE + [id number] 18:17:00 Test Item Value Reference Range Interpretation Comments CULTURE (BEAKER) (test No acid-fast bacilli code = 1095) isolated in 42 days AFB SMEAR (BEAKER) No acid fast bacilli (test code = 994) seen FUNGUS CULTURE + [id number] 19:24:00 Test Item Value Reference Range Interpretation Comments CULTURE (BEAKER) (test No fungus isolated in code = 1095) 28 days FUNGUS SMEAR (BEAKER) No fungi seen (test code = 1406) BLOOD [id number] 08:20:00 Test Item Value Reference Range Interpretation Comments CULTURE (BEAKER) (test No growth in 5 days code = 1095) BLOOD [id number] 08:13:00 Test Item Value Reference Range Interpretation Comments CULTURE (BEAKER) (test No growth in 5 days code = 1095) POCT-GLUCOSE [id number] 08:25:00 Test Item Value Reference Range Interpretation Comments POC-GLUCOSE METER 244 mg/dL 70-110 H TESTED AT [facility] 6720 (BEAKER) (test code = [place]ISHA [place] 1538) [address] BASIC METABOLIC [id number] 05:31:00 Test Item Value Reference Range Interpretation Comments SODIUM (BEAKER) 134 meq/L 136-145 L (test code = 381) POTASSIUM (BEAKER) 4.1 meq/L 3.5-5.1 (test code = 379) CHLORIDE (BEAKER) 96 meq/L 98-107 L (test code = 382) CO2 (BEAKER) (test 23 meq/L 22-29 code = 355) BLOOD UREA NITROGEN 58 mg/dL 7-21 H (BEAKER) (test code = 354) CREATININE (BEAKER) 16.21 mg/dL 0.57-1.25 H (test code = 358) GLUCOSE RANDOM 224 mg/dL 70-105 H (BEAKER) (test code = 652) CALCIUM (BEAKER) 8.7 mg/dL 8.4-10.2 (test code = 697) EGFR (BEAKER) (test 3 mL/min/1.73 ESTIMAT ED GFR IS code = 1092) sq m NOT ACCURATE CREATININE CLEARANCE IN PREDICTING GLOMERULAR FILTRATION RATE . ESTIMATED GFR I S NOT APPLICABLE FOR DIALYSIS PATIEN TS. [id number] 05:27:00 Test Item Value Reference Range Interpretation Comments MAGNESIUM (BEAKER) (test code = 2.2 mg/dL 1.6-2.6 627) CBC (HEMOGRAM ONLY)2016-06-09 05:22:00 Test Item Value Reference Range Interpretation Comments WHITE BLOOD CELL COUNT (BEAKER) 5.7 K/ L 4.0-10.0 (test code = 775) RED BLOOD CELL COUNT (BEAKER) 3.51 M/ L 4.00-5.00 L (test code = 761) HEMOGLOBIN (BEAKER) (test code = 9.9 GM/DL 12.0-15.0 L 410) HEMATOCRIT (BEAKER) (test code = 30.6 % 36.0-45.0 L 411) MEAN CORPUSCULAR VOLUME (BEAKER) 87.2 fL 82.0-99.0 (test code = 753) MEAN CORPUSCULAR HEMOGLOBIN 28.2 pg 27.0-33.0 (BEAKER) (test code = 751) MEAN CORPUSCULAR HEMOGLOBIN CONC 32.4 GM/DL 32.0-36.0 (BEAKER) (test code = 752) RED CELL DISTRIBUTION WIDTH 18.2 % 10.3-14.2 H (BEAKER) (test code = 412) PLATELET COUNT (BEAKER) (test 214 K/CU MM 150-430 code = 756) MEAN PLATELET VOLUME (BEAKER) 10.0 fL 6.5-10.5 (test code = 754) NUCLEATED RED BLOOD CELLS 0 /100 WBC 0-0 (AKER) (test code = 413) 0.00POCT-GLUCOSE [id number] 00:54:00 Test Item Value Reference Range Interpretation Comments POC-GLUCOSE METER 124 mg/dL 70-110 H TESTED AT [place] [address] ([facility]) (test [facility] = [facility] 1538) [address] POCT-GLUCOSE [id number] 17:10:00 Test Item Value Reference Range Interpretation Comments POC-GLUCOSE METER 146 mg/dL 70-110 H TESTED AT [place] [address] ([facility]) (test code = [facility] 1538) [address] BODY FLUID CULTURE + GRAM [id number] 15:37:00 Test Item Value Reference Range Interpretation Comments CULTURE (BEAKER) (test code No growth = 1095) GRAM STAIN RESULT (BEAKER) No WBCs (test code = 1123) GRAM STAIN RESULT (BEAKER) No organisms seen (test code = 08412) PERITONEAL DIALYSIS EFFLUENT [id number] 15:25:00 Test Item Value Reference Range Interpretation Comments CULTURE (BEAKER) (test code = 1095) No growth POCT-GLUCOSE [id number] 12:03:00 Test Item Value Reference Range Interpretation Comments POC-GLUCOSE METER 170 mg/dL 70-110 H TESTED AT [place] [address] ([facility]) (test code = TANIS[place] 1538) [address] HEPATITIS C PCR, [id number] 09:44:00 Test Item Value Reference Range Interpretation Comments HCV NUMERIC RESULT (AKER) 328120 IU/mL <15 H (test code = 2700) This test uses a Real-Time Polymerase Chain Reaction (RT-PCR) methodology and was performed using [employer] Ampliprep/SHELLY TaqMan HCV test kit version 2.0 ([employer]).Reportable range for this assay is 15 - 100,000,000 IU per mL (1.18 - 8.00 Log IU/mL).POCT-GLUCOSE [id number] 08:07:00 Test Item Value Reference Range Interpretation Comments POC-GLUCOSE METER 183 mg/dL 70-110 H TESTED AT [place] [address] ([facility]) (test code = TANISHA [place] 1538) [address] CBC (HEMOGRAM ONLY)2016-06-08 06:53:00 Test Item Value Reference Range Interpretation Comments WHITE BLOOD CELL COUNT (BEAKER) 6.2 K/ L 4.0-10.0 (test code = 775) RED BLOOD CELL COUNT (BEAKER) 3.22 M/ L 4.00-5.00 L (test code = 761) HEMOGLOBIN (BEAKER) (test code = 9.5 GM/DL 12.0-15.0 L 410) HEMATOCRIT (BEAKER) (test code = 28.1 % 36.0-45.0 L 411) MEAN CORPUSCULAR VOLUME (BEAKER) 87.5 fL 82.0-99.0 (test code = 753) MEAN CORPUSCULAR HEMOGLOBIN 29.5 pg 27.0-33.0 (BEAKER) (test code = 751) MEAN CORPUSCULAR HEMOGLOBIN CONC 33.7 GM/DL 32.0-36.0 (BEAKER) (test code = 752) RED CELL DISTRIBUTION WIDTH 18.3 % 10.3-14.2 H (BEAKER) (test code = 412) PLATELET COUNT (BEAKER) (test 188 K/CU MM 150-430 code = 756) MEAN PLATELET VOLUME (BEAKER) 9.2 fL 6.5-10.5 (test code = 754) NUCLEATED RED BLOOD CELLS 0 /100 WBC 0-0 (BEAKER) (test code = 413) 0.00BASIC METABOLIC [id number] 05:44:00 Test Item Value Reference Range Interpretation Comments SODIUM (BEAKER) 134 meq/L 136-145 L (test code = 381) POTASSIUM (BEAKER) 4.1 meq/L 3.5-5.1 (test code = 379) CHLORIDE (BEAKER) 96 meq/L 98-107 L (test code = 382) CO2 (BEAKER) (test 23 meq/L 22-29 code = 355) BLOOD UREA NITROGEN 61 mg/dL 7-21 H (BEAKER) (test code = 354) CREATININE (BEAKER) 16.52 mg/dL 0.57-1.25 H (test code = 358) GLUCOSE RANDOM 229 mg/dL 70-105 H (BEAKER) (test code = 652) CALCIUM (BEAKER) 8.4 mg/dL 8.4-10.2 (test code = 697) EGFR (BEAKER) (test 3 mL/min/1.73 ESTIMAT ED GFR IS code = 1092) sq m NOT ACCURATE CREATININE CLEARANCE IN PREDICTING GLOMERULAR FILTRATION RATE . ESTIMATED GFR I S NOT APPLICABLE FOR DIALYSIS PATIEN TS. [id number] 05:41:00 Test Item Value Reference Range Interpretation Comments MAGNESIUM (BEAKER) (test code = 2.3 mg/dL 1.6-2.6 627) POCT-GLUCOSE [id number] 20:59:00 Test Item Value Reference Range Interpretation Comments POC-GLUCOSE METER 105 mg/dL 70-110 TESTED AT [facility] 6720 ([facility]) (test code = TANISHA [place] 1538) [address] POCT-GLUCOSE [id number] 17:58:00 Test Item Value Reference Range Interpretation Comments POC-GLUCOSE METER 129 mg/dL 70-110 H TESTED AT [facility] 67[address] [facility] (test code = [place] 1538) [address] POCT-GLUCOSE [id number] 17:58:00 Test Item Value Reference Range Interpretation Comments POC-GLUCOSE METER 138 mg/dL 70-110 H TESTED AT [facility] 67[address] [facility] (test code = [place] 1538) [address] ANTI-NUCLEAR ANTIBODY (MILTON)2016-06-07 14:51:00 Test Item Value Reference Range Interpretation Comments ANTI-NUCLEAR ANTIBODY (MILTON) (BEAKER) Negative Negative (test code = 418) [id number] 09:26:00 Test Item Value Reference Range Interpretation Comments PHOSPHORUS (BEAKER) (test code = 7.8 mg/dL 2.3-4.7 H 604) POCT-GLUCOSE [id number] 08:18:00 Test Item Value Reference Range Interpretation Comments POC-GLUCOSE METER 140 mg/dL 70-110 H TESTED AT [facility] 6720 (BEAKER) (test code = [place] 1538) [id number] CBC (HEMOGRAM ONLY)2016-06-07 07:53:00 Test Item Value Reference Range Interpretation Comments WHITE BLOOD CELL COUNT (BEAKER) 5.1 K/ L 4.0-10.0 (test code = 775) RED BLOOD CELL COUNT (BEAKER) 3.19 M/ L 4.00-5.00 L (test code = 761) HEMOGLOBIN (BEAKER) (test code = 9.2 GM/DL 12.0-15.0 L 410) HEMATOCRIT (BEAKER) (test code = 28.0 % 36.0-45.0 L 411) MEAN CORPUSCULAR VOLUME (BEAKER) 87.6 fL 82.0-99.0 (test code = 753) MEAN CORPUSCULAR HEMOGLOBIN 28.9 pg 27.0-33.0 (BEAKER) (test code = 751) MEAN CORPUSCULAR HEMOGLOBIN CONC 32.9 GM/DL 32.0-36.0 (BEAKER) (test code = 752) RED CELL DISTRIBUTION WIDTH 18.1 % 10.3-14.2 H (BEAKER) (test code = 412) PLATELET COUNT (BEAKER) (test 188 K/CU MM 150-430 code = 756) MEAN PLATELET VOLUME (BEAKER) 9.2 fL 6.5-10.5 (test code = 754) NUCLEATED RED BLOOD CELLS 0 /100 WBC 0-0 (BEAKER) (test code = 413) 0.00BASIC METABOLIC [id number] 07:30:00 Test Item Value Reference Range Interpretation Comments SODIUM (BEAKER) 136 meq/L 136-145 (test code = 381) POTASSIUM (BEAKER) 4.2 meq/L 3.5-5.1 (test code = 379) CHLORIDE (BEAKER) 98 meq/L 98-107 (test code = 382) CO2 (BEAKER) (test 23 meq/L 22-29 code = 355) BLOOD UREA NITROGEN 59 mg/dL 7-21 H (BEAKER) (test code = 354) CREATININE (BEAKER) 16.05 mg/dL 0.57-1.25 H (test code = 358) GLUCOSE RANDOM 165 mg/dL 70-105 H (BEAKER) (test code = 652) CALCIUM (BEAKER) 8.0 mg/dL 8.4-10.2 L (test code = 697) EGFR (BEAKER) (test 3 mL/min/1.73 ESTIMAT ED GFR IS code = 1092) sq m NOT ACCURATE CREATININE CLEARANCE IN PREDICTING GLOMERULAR FILTRATION RATE . ESTIMATED GFR I S NOT APPLICABLE FOR DIALYSIS PATIEN TS. [id number] 07:29:00 Test Item Value Reference Range Interpretation Comments MAGNESIUM (BEAKER) (test code = 1.7 mg/dL 1.6-2.6 627) VANCOMYCIN LEVEL, [id number] 07:28:00 Test Item Value Reference Range Interpretation Comments VANCOMYCIN RANDOM (BEAKER) (test 18.5 ug/mL code = 523) Reference Range: No NormalsPOCT-GLUCOSE [id number] 21:54:00 Test Item Value Reference Range Interpretation Comments POC-GLUCOSE METER 112 mg/dL 70-110 H TESTED AT [place] [address] ([facility]) (test code = [facility] [place] [facility] 1538) [id number] 19:10:00 Test Item Value Reference Range Interpretation Comments ACTIVATED CLOTTING TIME 337 sec TEST ED AT [place] [address] ([facility]) (test code = [facility] Caryl [facility] 441) [address] [id number] 16:26:00 Test Item Value Reference Range Interpretation Comments PARTIAL THROMBOPLASTIN TIME 83.0 seconds 22.5-36.0 H ([facility]) (test code = 760) HEPATIC FUNCTION [id number] 14:54:00 Test Item Value Reference Range Interpretation Comments TOTAL PROTEIN (BEAKER) (test code = 6.6 gm/dL 6.0-8.3 770) ALBUMIN (BEAKER) (test code = 1145) 2.4 g/dL 3.5-5.0 L BILIRUBIN TOTAL (BEAKER) (test code 0.2 mg/dL 0.2-1.2 = 377) BILIRUBIN DIRECT (BEAKER) (test 0.1 mg/dL 0.1-0.5 code = 706) ALKALINE PHOSPHATASE (BEAKER) (test 100 U/L 40-150 code = 346) AST (SGOT) (BEAKER) (test code = 18 U/L 5-34 353) ALT (SGPT) (BEAKER) (test code = 18 U/L 6-55 347) [id number] 13:30:00 Test Item Value Reference Range Interpretation Comments FERRITIN (BEAKER) (test code = 361) 343 ng/mL 5-275 H Effective 01/28/2014: Reference Range ChangeNew: Male 5-275 Previous: Male 22-322 Female 5-275 Female [id number] 13:01:00 Test Item Value Reference Range Interpretation Comments POC-GLUCOSE METER 121 mg/dL 70-110 H TESTED AT [facility] 6720 ([facility]) (test code = TANISHA Caryl [facility] 1538) [address] HEPATITIS C [id number] 11:01:00 Test Item Value Reference Range Interpretation Comments HEPATITIS C ANTIBODY (BEAKER) (test Reactive Nonreactive A code = 367) HEPATITIS B SURFACE [id number] 10:32:00 Test Item Value Reference Range Interpretation Comments HEPATITIS B SURFACE ANTIGEN (2) Nonreactive Nonreactive (AKER) (test code = 2585) HEPATITIS B SURFACE [id number] 10:32:00 Test Item Value Reference Range Interpretation Comments HEPATITIS B SURFACE ANTIBODY 71.3 mIU/mL <8.0 H (BEAKER) (test code = 647) HEPATITIS A ANTIBODY, [id number] 10:32:00 Test Item Value Reference Range Interpretation Comments HEPATITIS A IGM ANTIBODY (BEAKER) Nonreactive Nonreactive (test code = 498) HEPATITIS B CORE ANTIBODY, [id number] 10:32:00 Test Item Value Reference Range Interpretation Comments HEPATITIS B CORE TOTAL ANTIBODY Nonreactive Nonreactive (BEAKER) (test code = 497) LACTATE DEHYDROGENASE (LDH), BODY [id number] 10:24:00 Test Item Value Reference Range Interpretation Comments LACTATE DEHYDROGENASE FLUID < U/L Light's criteria (BEAKER) (test code = 634) identifies effusions if one or more are pre Absence of reference range indicates that normals have not been defined.Assay performance has not been validated for this type of specimen.TRANSFERRIN 2016-06-06 10:19:00 Test Item Value Reference Range Interpretation Comments TRANSFERRIN (BEAKER) (test code = 165 mg/dL 174-382 L 541) IRON, TIBC, % SAT. (WITHOUT FERRITIN)2016-06-06 10:19:00 Test Item Value Reference Range Interpretation Comments IRON (BEAKER) (test code = 547) 41 ug/dL 40-160 TOTAL IRON BINDING CAPACITY 206 ug/dL 250-450 L (BEAKER) (test code = 769) IRON % SATURATION (2) (BEAKER) 20 % 20-55 (test code = 2590) PROTEIN, [id number] 09:36:00 Test Item Value Reference Range Interpretation Comments TOTAL PROTEIN (BEAKER) (test code = 6.5 gm/dL 6.0-8.3 770) LACTATE DEHYDROGENASE (LDH)2016-06-06 09:36:00 Test Item Value Reference Range Interpretation Comments LACTATE DEHYDROGENASE (BEAKER) (test 248 U/L 125-220 H code = 635) [id number] 09:32:00 Test Item Value Reference Range Interpretation Comments PARTIAL THROMBOPLASTIN TIME 72.0 seconds 22.5-36.0 H (BEAKER) (test code = 760) Prior to initiating heparinPROTHROMBIN TIME/[id number] 09:30:00 Test Item Value Reference Range Interpretation Comments PROTIME (BEAKER) (test code = 15.2 seconds 11.7-14.7 H 759) INR (BEAKER) (test code = 370) 1.2 <=5.9 RECOMMENDED COUMADIN/WARFARIN INR THERAPY RANGESSTANDARD DOSE: 2.0 - 3.0 Includes: PROPHYLAXIS forvenous thrombosis, systemic embolization; TREATMENT for venous thrombosis and/or pulmonary embolus.HIGH RISK: Target INR is 2.5-3.5 for patients with mechanical heart valves.Prior to initiating heparinCBC (HEMOGRAM ONLY)2016-06-06 09:19:00 Test Item Value Reference Range Interpretation Comments WHITE BLOOD CELL COUNT (BEAKER) 6.3 K/ L 4.0-10.0 (test code = 775) RED BLOOD CELL COUNT (BEAKER) 3.26 M/ L 4.00-5.00 L (test code = 761) HEMOGLOBIN (BEAKER) (test code = 9.3 GM/DL 12.0-15.0 L 410) HEMATOCRIT (BEAKER) (test code = 28.7 % 36.0-45.0 L 411) MEAN CORPUSCULAR VOLUME (BEAKER) 88.2 fL 82.0-99.0 (test code = 753) MEAN CORPUSCULAR HEMOGLOBIN 28.4 pg 27.0-33.0 (BEAKER) (test code = 751) MEAN CORPUSCULAR HEMOGLOBIN CONC 32.2 GM/DL 32.0-36.0 (BEAKER) (test code = 752) RED CELL DISTRIBUTION WIDTH 19.0 % 10.3-14.2 H (BEAKER) (test code = 412) PLATELET COUNT (BEAKER) (test 185 K/CU MM 150-430 code = 756) MEAN PLATELET VOLUME (BEAKER) 9.0 fL 6.5-10.5 (test code = 754) NUCLEATED RED BLOOD CELLS 0 /100 WBC 0-0 (BEAKER) (test code = 413) PLATELET [id number] 09:15:00 Test Item Value Reference Range Interpretation Comments PLATELET COUNT (BEAKER) (test 185 K/CU MM 150-430 code = 756) POCT-GLUCOSE [id number] 08:01:00 Test Item Value Reference Range Interpretation Comments POC-GLUCOSE METER 119 mg/dL 70-110 H TESTED AT [facility] 6720 (BEAKER) (test code = T[place] 1538) [address] [id number] 04:10:00 Test Item Value Reference Range Interpretation Comments MAGNESIUM (BEAKER) (test code = 1.8 mg/dL 1.6-2.6 627) BASIC METABOLIC [id number] 04:10:00 Test Item Value Reference Range Interpretation Comments SODIUM (BEAKER) 136 meq/L 136-145 (test code = 381) POTASSIUM (BEAKER) 4.0 meq/L 3.5-5.1 (test code = 379) CHLORIDE (BEAKER) 97 meq/L 98-107 L (test code = 382) CO2 (BEAKER) (test 24 meq/L 22-29 code = 355) BLOOD UREA NITROGEN 64 mg/dL 7-21 H (BEAKER) (test code = 354) CREATININE (BEAKER) 16.35 mg/dL 0.57-1.25 H (test code = 358) GLUCOSE RANDOM 124 mg/dL 70-105 H (BEAKER) (test code = 652) CALCIUM (BEAKER) 7.7 mg/dL 8.4-10.2 L (test code = 697) EGFR (BEAKER) (test 3 mL/min/1.73 ESTIMAT ED GFR IS code = 1092) sq m NOT ACCURATE CREATININE CLEARANCE IN PREDICTING GLOMERULAR FILTRATION RATE . ESTIMATED GFR I S NOT APPLICABLE FOR DIALYSIS PATIEN [id number] 04:09:00 Test Item Value Reference Range Interpretation Comments PARTIAL THROMBOPLASTIN TIME 92.0 seconds 22.5-36.0 H (BEAKER) (test code = 760) CBC (HEMOGRAM ONLY)2016-06-06 03:58:00 Test Item Value Reference Range Interpretation Comments WHITE BLOOD CELL COUNT (BEAKER) 6.1 K/ L 4.0-10.0 (test code = 775) RED BLOOD CELL COUNT (BEAKER) 3.19 M/ L 4.00-5.00 L (test code = 761) HEMOGLOBIN (BEAKER) (test code = 9.2 GM/DL 12.0-15.0 L 410) HEMATOCRIT (BEAKER) (test code = 27.9 % 36.0-45.0 L 411) MEAN CORPUSCULAR VOLUME (BEAKER) 87.4 fL 82.0-99.0 (test code = 753) MEAN CORPUSCULAR HEMOGLOBIN 28.9 pg 27.0-33.0 (BEAKER) (test code = 751) MEAN CORPUSCULAR HEMOGLOBIN CONC 33.0 GM/DL 32.0-36.0 (BEAKER) (test code = 752) RED CELL DISTRIBUTION WIDTH 18.0 % 10.3-14.2 H (BEAKER) (test code = 412) PLATELET COUNT (BEAKER) (test 185 K/CU MM 150-430 code = 756) MEAN PLATELET VOLUME (BEAKER) 9.1 fL 6.5-10.5 (test code = 754) NUCLEATED RED BLOOD CELLS 0 /100 WBC 0-0 (BEAKER) (test code = 413) 0.00POCT-GLUCOSE [id number] 00:10:00 Test Item Value Reference Range Interpretation Comments POC-GLUCOSE METER 235 mg/dL 70-110 H TESTED AT [facility] 6720 (BEAKER) (test code = TANISHA [place] 1538) [id number] GRAM [id number] 23:45:00 Test Item Value Reference Range Interpretation Comments GRAM STAIN RESULT (BEAKER) <1+ WBCs (test code = 1123) GRAM STAIN RESULT (BEAKER) No organisms seen (test code = 51375) BODY FLUID CELL COUNT WITH [id number] 20:12:00 Test Item Value Reference Range Interpretation Comments APPEARANCE FLUID (BEAKER) (test Clear Clear code = 510) COLOR FLUID (BEAKER) (test code = Straw Colorless, Straw 511) RBC FLUID (BEAKER) (test code = 200 /cu mm <=1 H 513) ADJUSTED WBC FLUID (BEAKER) (test 20 /cu mm <=5 H code = 1691) LINING CELLS (BEAKER) (test code 0 /cu mm <=1 = 1590) NEUTROPHILS FLUID (BEAKER) (test 9 % code = 1656) LYMPHS FLUID (BEAKER) (test code 39 % = 488) MONO/MACROPHAGE FLUID (BEAKER) 52 % (test code = 489) EOSINOPHILS FLUID (BEAKER) (test 0 % code = 491) BASO FLUID (BEAKER) (test code = 0 % 492) CONTAINER BODY FLUID (BEAKER) EDTA Tube (test code = 2873) BODY FLUID CELL COUNT WITH [id number] 19:33:00 Test Item Value Reference Range Interpretation Comments APPEARANCE FLUID (BEAKER) Slightly Hazy Clear A (test code = 510) COLOR FLUID (BEAKER) (test Straw Colorless, Straw code = 511) RBC FLUID (BEAKER) (test code 90 /cu mm <=1 H = 513) ADJUSTED WBC FLUID (BEAKER) 125 /cu mm <=5 H (test code = 1691) LINING CELLS (BEAKER) (test 5 /cu mm <=1 H code = 1590) NEUTROPHILS FLUID (BEAKER) 2 % (test code = 1656) LYMPHS FLUID (BEAKER) (test 30 % code = 488) MONO/MACROPHAGE FLUID (BEAKER) 68 % (test code = 489) EOSINOPHILS FLUID (BEAKER) 0 % (test code = 491) BASO FLUID (BEAKER) (test code 0 % = 492) CONTAINER BODY FLUID (BEAKER) EDTA Tube (test code = 2873) PROTEIN, BODY [id number] 19:01:00 Test Item Value Reference Range Interpretation Comments PROTEIN FLUID (BEAKER) 2.4 g/dL Light's criteria identifies (test code = 579) effusions if one or more are pre Absence of reference range indicates that normals have not been defined.Assay performance has not been validated for this type of specimen.GLUCOSE, BODY FLUID 2016-06-05 19:01:00 Test Item Value Reference Range Interpretation Comments GLUCOSE, BODY FLUID (BEAKER) (test 193 mg/dL 70-110 H code = 1528) Absence of reference range indicates that normals have not been defined.Assay performance has not been validated for this type of specimen.PH, BODY FLUID 2016-06-05 18:45:00 Test Item Value Reference Range Interpretation Comments PH, BODY FLUID (BEAKER) (test code = 7.73 1530) [id number] 18:22:00 Test Item Value Reference Range Interpretation Comments PARTIAL THROMBOPLASTIN TIME 36.7 seconds 22.5-36.0 H (BEAKER) (test code = 760) PROTHROMBIN [id number] 18:20:00 Test Item Value Reference Range Interpretation Comments PROTIME (BEAKER) (test code = 15.3 seconds 11.7-14.7 H 759) INR (BEAKER) (test code = 370) 1.2 <=5.9 RECOMMENDED COUMADIN/WARFARIN INR THERAPY RANGESSTANDARD DOSE: 2.0 - 3.0 Includes: PROPHYLAXIS forvenous thrombosis, systemic embolization; TREATMENT for venous thrombosis and/or pulmonary embolus.HIGH RISK: Target INR is 2.5-3.5 for patients with mechanical heart valves.POCT-GLUCOSE [id number] 18:04:00 Test Item Value Reference Range Interpretation Comments POC-GLUCOSE METER 182 mg/dL 70-110 H TESTED AT [facility] 6720 (BEAKER) (test code = [place] 1538) [id number] CREATINE KINASE (CK), TOTAL AND [id number] 16:32:00 Test Item Value Reference Range Interpretation Comments CREATINE KINASE TOTAL (BEAKER) 247 U/L 29-200 H (test code = 380) CREATINE KINASE-MB (BEAKER) (test 8.4 ng/mL 0.0-6.6 H code = 750) CREATINE KINASE-MB INDEX (BEAKER) 3.4 % (test code = 395) Effective 01/28/2014: CK-MB Reference Range ChangeNew: 0.0-6.6 Previous: 0.0-4.9CK-MB Reference Range:<6.7 Normal6.7-10.0 Borderline>10.0 AbnormalTROPONIN [id number] 16:32:00 Test Item Value Reference Range Interpretation Comments TROPONIN I (BEAKER) (test code = 0.06 ng/mL 0.00-0.03 H 397) Effective 01/28/2014: Reference Range ChangeNew: 0.00-0.03 Previous [...] acute neurological disease, and persistent tachyarrhythmia.BASIC METABOLIC [id number] 16:31:00 Test Item Value Reference Range Interpretation Comments SODIUM (BEAKER) 135 meq/L 136-145 L (test code = 381) POTASSIUM (BEAKER) 4.7 meq/L 3.5-5.1 (test code = 379) CHLORIDE (BEAKER) 95 meq/L 98-107 L (test code = 382) CO2 (BEAKER) (test 24 meq/L 22-29 code = 355) BLOOD UREA NITROGEN 72 mg/dL 7-21 H (BEAKER) (test code = 354) CREATININE (BEAKER) 17.37 mg/dL 0.57-1.25 H (test code = 358) GLUCOSE RANDOM 179 mg/dL 70-105 H (BEAKER) (test code = 652) CALCIUM (BEAKER) 7.7 mg/dL 8.4-10.2 L (test code = 697) EGFR (BEAKER) (test 3 mL/min/1.73 ESTIMAT ED GFR IS code = 1092) sq m NOT ACCURATE CREATININE CLEARANCE IN PREDICTING GLOMERULAR FILTRATION RATE . ESTIMATED GFR I S NOT APPLICABLE FOR DIALYSIS PATIEN TS. [id number] 16:26:00 Test Item Value Reference Range Interpretation Comments PHOSPHORUS (BEAKER) (test code = 8.1 mg/dL 2.3-4.7 H 604) [id number] 16:26:00 Test Item Value Reference Range Interpretation Comments MAGNESIUM (BEAKER) (test code = 1.9 mg/dL 1.6-2.6 627) HEPATIC FUNCTION [id number] 16:26:00 Test Item Value Reference Range Interpretation Comments TOTAL PROTEIN (BEAKER) (test code = 6.6 gm/dL 6.0-8.3 770) ALBUMIN (BEAKER) (test code = 1145) 2.5 g/dL 3.5-5.0 L BILIRUBIN TOTAL (BEAKER) (test code 0.2 mg/dL 0.2-1.2 = 377) BILIRUBIN DIRECT (BEAKER) (test 0.1 mg/dL 0.1-0.5 code = 706) ALKALINE PHOSPHATASE (BEAKER) (test 105 U/L 40-150 code = 346) AST (SGOT) (BEAKER) (test code = 18 U/L 5-34 353) ALT (SGPT) (BEAKER) (test code = 21 U/L 6-55 347) CBC W/PLT COUNT & AUTO [id number] 16:07:00 Test Item Value Reference Range Interpretation Comments WHITE BLOOD CELL COUNT (BEAKER) 5.1 K/ L 4.0-10.0 (test code = 775) RED BLOOD CELL COUNT (BEAKER) 3.26 M/ L 4.00-5.00 L (test code = 761) HEMOGLOBIN (BEAKER) (test code = 9.3 GM/DL 12.0-15.0 L 410) HEMATOCRIT (BEAKER) (test code = 28.8 % 36.0-45.0 L 411) MEAN CORPUSCULAR VOLUME (BEAKER) 88.1 fL 82.0-99.0 (test code = 753) MEAN CORPUSCULAR HEMOGLOBIN 28.4 pg 27.0-33.0 (BEAKER) (test code = 751) MEAN CORPUSCULAR HEMOGLOBIN CONC 32.2 GM/DL 32.0-36.0 (BEAKER) (test code = 752) RED CELL DISTRIBUTION WIDTH 19.1 % 10.3-14.2 H (BEAKER) (test code = 412) PLATELET COUNT (BEAKER) (test 182 K/CU MM 150-430 code = 756) MEAN PLATELET VOLUME (BEAKER) 8.6 fL 6.5-10.5 (test code = 754) NUCLEATED RED BLOOD CELLS 0 /100 WBC 0-0 (BEAKER) (test code = 413) NEUTROPHILS RELATIVE PERCENT 64 % (BEAKER) (test code = 429) LYMPHOCYTES RELATIVE PERCENT 21 % (BEAKER) (test code = 430) MONOCYTES RELATIVE PERCENT 11 % (BEAKER) (test code = 431) EOSINOPHILS RELATIVE PERCENT 3 % (BEAKER) (test code = 432) BASOPHILS RELATIVE PERCENT 1 % (BEAKER) (test code = 437) NEUTROPHILS ABSOLUTE COUNT 3.26 K/ L 1.80-8.00 (BEAKER) (test code = 670) LYMPHOCYTES ABSOLUTE COUNT 1.09 K/ L 1.48-4.50 L (BEAKER) (test code = 414) MONOCYTES ABSOLUTE COUNT (BEAKER) 0.57 K/ L 0.00-1.30 (test code = 415) EOSINOPHILS ABSOLUTE COUNT 0.16 K/ L 0.00-0.50 (BEAKER) (test code = 416) BASOPHILS ABSOLUTE COUNT (BEAKER) 0.03 K/ L 0.00-0.20 (test code = 417) 0.00LACTIC ACID, VENOUS, WHOLE [id number] 16:06:00 Test Item Value Reference Range Interpretation Comments LACTATE BLOOD VENOUS (2) (BEAKER) 1.5 mmol/L 0.5-2.2 (test code = 2872) Effective 07/15/2015: Units/Reference Range ChangeNew: 0.5-2.2 mmol/L Previous: 5-20 mg/dLBLOOD GAS, [id number] 15:57:00 Test Item Value Reference Range Interpretation Comments PH VENOUS (BEAKER) (test code = 7.39 7.32-7.42 701) PCO2 VENOUS (BEAKER) (test code = 46 mmHg 41-51 755) PO2 VENOUS (BEAKER) (test code = 39 mmHg 25-40 702) O2 SATURATION VENOUS (BEAKER) 74.4 % 40.0-70.0 H (test code = 703) HCO3 VENOUS (BEAKER) (test code = 27 mmol/L 21-29 705) BASE EXCESS VENOUS (BEAKER) (test 2.0 mmol/L -2.0-3.0 code = 704) PATIENT TEMPERATURE (BEAKER) (test 36.5 C code = 1818) FIO2 (BEAKER) (test code = 1819) 21.0 % POCT-GLUCOSE [id number] 12:45:00 Test Item Value Reference Range Interpretation Comments POC-GLUCOSE METER 201 mg/dL 70-110 H TESTED AT [facility] (test code = TANISHA [facility] 1538) [id number] POCT-GLUCOSE [id number] 08:26:00 Test Item Value Reference Range Interpretation Comments POC-GLUCOSE METER 181 mg/dL 70-110 H TESTED AT [facility] 67 [facility] (test code = [place] 1538) [address] [id number] 07:00:00 Test Item Value Reference Range Interpretation Comments FERRITIN (BEAKER) (test code = 361) 337 ng/mL 5-275 H Effective 01/28/2014: Reference Range ChangeNew: Male 5-275 Previous: Male 22-322 Female 5-275 Female [id number] 06:20:00 Test Item Value Reference Range Interpretation Comments MAGNESIUM (BEAKER) (test code = 1.8 mg/dL 1.6-2.6 627) BASIC METABOLIC [id number] 06:20:00 Test Item Value Reference Range Interpretation Comments SODIUM (BEAKER) 137 meq/L 136-145 (test code = 381) POTASSIUM (BEAKER) 3.8 meq/L 3.5-5.1 (test code = 379) CHLORIDE (BEAKER) 102 meq/L 98-107 (test code = 382) CO2 (BEAKER) (test 20 meq/L 22-29 L code = 355) BLOOD UREA NITROGEN 64 mg/dL 7-21 H (BEAKER) (test code = 354) CREATININE (BEAKER) 15.09 mg/dL 0.57-1.25 H (test code = 358) GLUCOSE RANDOM 176 mg/dL 70-105 H (BEAKER) (test code = 652) CALCIUM (BEAKER) 7.1 mg/dL 8.4-10.2 L (test code = 697) EGFR (BEAKER) (test 3 mL/min/1.73 ESTIMAT ED GFR IS code = 1092) sq m NOT ACCURATE CREATININE CLEARANCE IN PREDICTING GLOMERULAR FILTRATION RATE . ESTIMATED GFR I S NOT APPLICABLE FOR DIALYSIS PATIEN TS. IRON, TIBC, % SAT. (WITHOUT FERRITIN)2016-06-05 06:19:00 Test Item Value Reference Range Interpretation Comments IRON (BEAKER) (test code = 547) 59 ug/dL 40-160 TOTAL IRON BINDING CAPACITY 233 ug/dL 250-450 L (BEAKER) (test code = 769) IRON % SATURATION (2) (BEAKER) 25 % 20-55 (test code = 2590) CBC W/PLT COUNT & AUTO [id number] 06:00:00 Test Item Value Reference Range Interpretation Comments WHITE BLOOD CELL COUNT (BEAKER) 4.0 K/ L 4.0-10.0 (test code = 775) RED BLOOD CELL COUNT (BEAKER) 3.68 M/ L 4.00-5.00 L (test code = 761) HEMOGLOBIN (BEAKER) (test code = 10.7 GM/DL 12.0-15.0 L 410) HEMATOCRIT (BEAKER) (test code = 32.4 % 36.0-45.0 L 411) MEAN CORPUSCULAR VOLUME (BEAKER) 88.0 fL 82.0-99.0 (test code = 753) MEAN CORPUSCULAR HEMOGLOBIN 29.1 pg 27.0-33.0 (BEAKER) (test code = 751) MEAN CORPUSCULAR HEMOGLOBIN CONC 33.1 GM/DL 32.0-36.0 (BEAKER) (test code = 752) RED CELL DISTRIBUTION WIDTH 19.0 % 10.3-14.2 H (BEAKER) (test code = 412) PLATELET COUNT (BEAKER) (test 194 K/CU MM 150-430 code = 756) MEAN PLATELET VOLUME (BEAKER) 9.2 fL 6.5-10.5 (test code = 754) NUCLEATED RED BLOOD CELLS 0 /100 WBC 0-0 (BEAKER) (test code = 413) NEUTROPHILS RELATIVE PERCENT 64 % (BEAKER) (test code = 429) LYMPHOCYTES RELATIVE PERCENT 23 % (BEAKER) (test code = 430) MONOCYTES RELATIVE PERCENT 8 % (BEAKER) (test code = 431) EOSINOPHILS RELATIVE PERCENT 3 % (BEAKER) (test code = 432) BASOPHILS RELATIVE PERCENT 1 % (BEAKER) (test code = 437) NEUTROPHILS ABSOLUTE COUNT 2.59 K/ L 1.80-8.00 (BEAKER) (test code = 670) LYMPHOCYTES ABSOLUTE COUNT 0.92 K/ L 1.48-4.50 L (BEAKER) (test code = 414) MONOCYTES ABSOLUTE COUNT (BEAKER) 0.34 K/ L 0.00-1.30 (test code = 415) EOSINOPHILS ABSOLUTE COUNT 0.13 K/ L 0.00-0.50 (BEAKER) (test code = 416) BASOPHILS ABSOLUTE COUNT (BEAKER) 0.06 K/ L 0.00-0.20 (test code = 417) 0.00POCT-GLUCOSE [id number] 17:21:00 Test Item Value Reference Range Interpretation Comments POC-GLUCOSE METER 196 mg/dL 70-110 H TESTED AT [place] [address] [facility] (test code = [facility] 1538) [address] POCT-GLUCOSE [id number] 12:54:00 Test Item Value Reference Range Interpretation Comments POC-GLUCOSE METER 190 mg/dL 70-110 H TESTED AT [place] [address] ([facility] (test code = [facility] 1538) [address] HEMOGLOBIN AND [id number] 11:25:00 Test Item Value Reference Range Interpretation Comments HEMOGLOBIN (BEAKER) (test code = 9.1 GM/DL 12.0-15.0 L 410) HEMATOCRIT (BEAKER) (test code = 27.2 % 36.0-45.0 L 411) POCT-GLUCOSE [id number] 07:54:00 Test Item Value Reference Range Interpretation Comments POC-GLUCOSE METER 116 mg/dL 70-110 H TESTED AT [facility] 67 (BEAKER) (test code = [facility] 1538) [address] [id number] 05:00:00 Test Item Value Reference Range Interpretation Comments PHOSPHORUS (BEAKER) (test code = 8.0 mg/dL 2.3-4.7 H 604) BASIC METABOLIC [id number] 01:32:00 Test Item Value Reference Range Interpretation Comments SODIUM (BEAKER) 133 meq/L 136-145 L (test code = 381) POTASSIUM (BEAKER) 4.8 meq/L 3.5-5.1 Specimen slightly (test code = 379) hemolyzed CHLORIDE (BEAKER) 95 meq/L 98-107 L (test code = 382) CO2 (BEAKER) (test 25 meq/L 22-29 code = 355) BLOOD UREA NITROGEN 73 mg/dL 7-21 H (BEAKER) (test code = 354) CREATININE (BEAKER) 17.24 mg/dL 0.57-1.25 H Specimen slightly (test code = 358) hemolyzed GLUCOSE RANDOM 127 mg/dL 70-105 H (BEAKER) (test code = 652) CALCIUM (BEAKER) 7.9 mg/dL 8.4-10.2 L (test code = 697) EGFR (BEAKER) (test 3 mL/min/1.73 ESTIMAT ED GFR IS code = 1092) sq m NOT ACCURATE CREATININE CLEARANCE IN PREDICTING GLOMERULAR FILTRATION RATE . ESTIMATED GFR I S NOT APPLICABLE FOR DIALYSIS PATIEN TS. CBC W/PLT COUNT & AUTO [id number] 01:18:00 Test Item Value Reference Range Interpretation Comments WHITE BLOOD CELL COUNT (BEAKER) 6.0 K/ L 4.0-10.0 (test code = 775) RED BLOOD CELL COUNT (BEAKER) 3.16 M/ L 4.00-5.00 L (test code = 761) HEMOGLOBIN (BEAKER) (test code = 9.0 GM/DL 12.0-15.0 L 410) HEMATOCRIT (BEAKER) (test code = 27.5 % 36.0-45.0 L 411) MEAN CORPUSCULAR VOLUME (BEAKER) 86.9 fL 82.0-99.0 (test code = 753) MEAN CORPUSCULAR HEMOGLOBIN 28.4 pg 27.0-33.0 (BEAKER) (test code = 751) MEAN CORPUSCULAR HEMOGLOBIN CONC 32.6 GM/DL 32.0-36.0 (BEAKER) (test code = 752) RED CELL DISTRIBUTION WIDTH 18.9 % 10.3-14.2 H (BEAKER) (test code = 412) PLATELET COUNT (BEAKER) (test 177 K/CU MM 150-430 code = 756) MEAN PLATELET VOLUME (BEAKER) 9.2 fL 6.5-10.5 (test code = 754) NUCLEATED RED BLOOD CELLS 0 /100 WBC 0-0 (BEAKER) (test code = 413) NEUTROPHILS RELATIVE PERCENT 72 % (BEAKER) (test code = 429) LYMPHOCYTES RELATIVE PERCENT 18 % (BEAKER) (test code = 430) MONOCYTES RELATIVE PERCENT 9 % (BEAKER) (test code = 431) EOSINOPHILS RELATIVE PERCENT 0 % (BEAKER) (test code = 432) BASOPHILS RELATIVE PERCENT 0 % (BEAKER) (test code = 437) NEUTROPHILS ABSOLUTE COUNT 4.29 K/ L 1.80-8.00 (BEAKER) (test code = 670) LYMPHOCYTES ABSOLUTE COUNT 1.10 K/ L 1.48-4.50 L (BEAKER) (test code = 414) MONOCYTES ABSOLUTE COUNT (BEAKER) 0.54 K/ L 0.00-1.30 (test code = 415) EOSINOPHILS ABSOLUTE COUNT 0.02 K/ L 0.00-0.50 (BEAKER) (test code = 416) BASOPHILS ABSOLUTE COUNT (BEAKER) 0.03 K/ L 0.00-0.20 (test code = 417) 0.00POCT-GLUCOSE [id number] 22:11:00 Test Item Value Reference Range Interpretation Comments POC-GLUCOSE METER 200 mg/dL 70-110 H TESTED AT [facility] [address] (BEAKER) (test code = [place] 1538) [id number] POCT-GLUCOSE [id number] 18:17:00 Test Item Value Reference Range Interpretation Comments POC-GLUCOSE METER 206 mg/dL 70-110 H TESTED AT [facility] [address] (BEAKER) (test code = [place] 1538) [id number] 17:39:00 Test Item Value Reference Range Interpretation Comments POTASSIUM (BEAKER) (test code = 4.7 meq/L 3.5-5.1 379) BASIC METABOLIC [id number] 11:55:00 Test Item Value Reference Range Interpretation Comments SODIUM (BEAKER) 138 meq/L 136-145 (test code = 381) POTASSIUM (BEAKER) 4.4 meq/L 3.5-5.1 (test code = 379) CHLORIDE (BEAKER) 96 meq/L 98-107 L (test code = 382) CO2 (BEAKER) (test 27 meq/L 22-29 code = 355) BLOOD UREA NITROGEN 68 mg/dL 7-21 H (BEAKER) (test code = 354) CREATININE (BEAKER) 16.75 mg/dL 0.57-1.25 H (test code = 358) GLUCOSE RANDOM 139 mg/dL 70-105 H (BEAKER) (test code = 652) CALCIUM (BEAKER) 8.5 mg/dL 8.4-10.2 (test code = 697) EGFR (BEAKER) (test 3 mL/min/1.73 ESTIMAT ED GFR IS code = 1092) sq m NOT ACCURATE CREATININE CLEARANCE IN PREDICTING GLOMERULAR FILTRATION RATE . ESTIMATED GFR I S NOT APPLICABLE FOR DIALYSIS PATIEN TS. [id number] 11:42:00 Test Item Value Reference Range Interpretation Comments PROTIME (BEAKER) (test code = 14.6 seconds 11.7-14.7 759) INR (BEAKER) (test code = 370) 1.2 <=5.9 PARTIAL THROMBOPLASTIN TIME 33.8 seconds 22.5-36.0 (BEAKER) (test code = 760) RECOMMENDED COUMADIN/WARFARIN INR THERAPY RANGESSTANDARD DOSE: 2.0 - 3.0 Includes: PROPHYLAXIS forvenous thrombosis, systemic embolization; TREATMENT for venous thrombosis and/or pulmonary embolus.HIGH RISK: Target INR is 2.5-3.5 for patients with mechanical heart valves.CBC W/PLT COUNT & AUTO DIFFERENTIAL 2016-06-03 11:39:00 Test Item Value Reference Range Interpretation Comments WHITE BLOOD CELL COUNT (BEAKER) 5.9 K/ L 4.0-10.0 (test code = 775) RED BLOOD CELL COUNT (BEAKER) 3.66 M/ L 4.00-5.00 L (test code = 761) HEMOGLOBIN (BEAKER) (test code = 10.3 GM/DL 12.0-15.0 L 410) HEMATOCRIT (BEAKER) (test code = 31.9 % 36.0-45.0 L 411) MEAN CORPUSCULAR VOLUME (BEAKER) 87.1 fL 82.0-99.0 (test code = 753) MEAN CORPUSCULAR HEMOGLOBIN 28.2 pg 27.0-33.0 (BEAKER) (test code = 751) MEAN CORPUSCULAR HEMOGLOBIN CONC 32.4 GM/DL 32.0-36.0 (BEAKER) (test code = 752) RED CELL DISTRIBUTION WIDTH 17.9 % 10.3-14.2 H (BEAKER) (test code = 412) PLATELET COUNT (BEAKER) (test 192 K/CU MM 150-430 code = 756) MEAN PLATELET VOLUME (BEAKER) 8.8 fL 6.5-10.5 (test code = 754) NUCLEATED RED BLOOD CELLS 0 /100 WBC 0-0 (BEAKER) (test code = 413) NEUTROPHILS RELATIVE PERCENT 74 % (BEAKER) (test code = 429) LYMPHOCYTES RELATIVE PERCENT 16 % (BEAKER) (test code = 430) MONOCYTES RELATIVE PERCENT 7 % (BEAKER) (test code = 431) EOSINOPHILS RELATIVE PERCENT 2 % (BEAKER) (test code = 432) BASOPHILS RELATIVE PERCENT 1 % (BEAKER) (test code = 437) NEUTROPHILS ABSOLUTE COUNT 4.35 K/ L 1.80-8.00 (BEAKER) (test code = 670) LYMPHOCYTES ABSOLUTE COUNT 0.94 K/ L 1.48-4.50 L (BEAKER) (test code = 414) MONOCYTES ABSOLUTE COUNT (BEAKER) 0.39 K/ L 0.00-1.30 (test code = 415) EOSINOPHILS ABSOLUTE COUNT 0.15 K/ L 0.00-0.50 (BEAKER) (test code = 416) BASOPHILS ABSOLUTE COUNT (BEAKER) 0.05 K/ L 0.00-0.20 (test code = 417) 0.76YVDYJVIVBMXS7844-67-70 11:36:88601Rkhurrsr CsuyclwWIACCPBAWAFW1961-65-59 11:36:0019[facility] NqvmffaTHPCECCNHIKN1298-27-68 11:36:008.5[facility] JCKOSOWGJPBG6368-56-48 11:36:33515Lxtpmwje DruonszHVVCEPOISZQY7831-32-34 11:36:82974Qloedpgm EbseymiLNAAGJAPPCKS9157-57-25 11:36:004.6[facility] VNMZTMVQRBHD8662-77-01 11:36:0050[facility] IkyudjqXWMAPINXXPIE2029-87-00 11:36:00 8.31[facility] XdubvahZKICEEGWCWFK4454-47-00 11:36:006[facility]annELECTROLYTES 2015-07-01 11:36:0014.6[facility] KgzgpjtKIFERKXPAY2903-74-02 11:36:001.2[facility] YwuydpmLDVPAGMCXI5126-37-04 11:36:001.0[facility] UhpwofbULNGRRDGZC7658-86-63 11:36:004.4[facility] QulshjxSJAUCAACHG9436-81-44 11:36:000.5[facility] NUQTXAKZOT0925-74-09 11:36:000.1[facility] YgqszakXEAELIECFU1368-26-84 11:36:000.1 [facility] ZvjtdftJSPSOXJAAD9769-53-11 11:36:008.0[facility]annHEMATOLOGY 2015-07-01 11:36:0019.2[facility] CsyowqzWULSNJOGPS1774-01-76 11:36:0069.5[facility] IodzujrXRGFXSKAPE5596-12-25 11:36:002.3[facility] VhcwjmvRWSSAXYXKM3123-06-35 11:36:00 Test Item Value Reference Range Interpretation Comments PTT (test code = PTT) 35.1 s 22.9-35.8 [facility] OqabsbcJOMUOPHJSG3999-58-28 11:36:001.09[facility]annHEMATOLOGY 2015-07-01 11:36:00 Test Item Value Reference Range Interpretation Comments PT (test code = PT) 14.4 s 12.0-14.7 [facility] XnhbpvwPFMFJQJFRR3569-18-77 11:36:009.3[facility]annHEMATOLOGY 2015-07-01 11:36:003.21[facility] DyvydxqEEZFEKNXFR1626-22-02 11:36:006.3[facility] BdevxxrXODCIAZZRO5140-31-07 11:36:0088.4[facility] FsdjxlyOOVJOLRYJM7027-16-60 11:36:0028.4[facility] XgheyhyICRUCUYVOA2998-64-81 11:36:46717Yqqvfzjx Yovani TWIOIZTYIP1404-25-82 11:36:0014.9[facility] NtiyyipKPAKUBVWCE9564-26-15 11:36:00 32.7[facility] LfyvvnuQCNZKSNADG5962-68-70 11:36:00 Test Item Value Reference Range Interpretation Comments MCH (test code = MCH) 28.9 pg 27.0-31.0 [facility] FqntrugUUVNUHLDCI3114-75-08 11:36:008.9[facility] HermannCARDIAC ENZYMES 2015-06-17 17:02:000.10[facility] HermannCHEM LNPMZ8239-64-13 17:02:54279Fxwsqptq HermannCHEM VSJYG8647-81-38 17:02:007[facility]annCHEM HXESA0853-96-36 17:02:005.4[facility]annCHEM EUSDP1636-30-31 17:02:000.3[facility]annCHEM EQKEO5105-50-17 17:02:0012.1[facility]annCHEM SCBDE8263-02-49 17:02:007 [facility]annCHE[facility] PRBLQ2242-97-78 17:02:0045[facility]annCHEM PANEL 2015-06-17 17:02:001.8[facility]annCHEM VODCP7403-91-54 17:02:0037[facility]annCHEM KZRIR6820-62-68 17:02:000.3[facility]annCHEM BQOTV9464-64-14 17:02:0084[facility]annCHEM GWQWM6518-63-89 17:02:007.2[facility]annCHEM SBYCT1204-76-37 17:02:008.4[facility]annCHEM HEHNG7143-18-23 17:02:32132 [facility]annCHE[facility] NULJC4622-77-62 17:02:005.1[facility]annCHEM PANEL 2015-06-17 17:02:16981Ckfxxhfw HermannCHEM EBUAH7088-37-72 17:02:0021[facility]annCHEM PLXUA5196-47-97 17:02:67751Lwzsamql HermannCHEM FFVDW8995-09-30 17:02:007.50[facility]annCHEM FOXQN2821-88-71 17:02:0052[facility] RAZEFCUVSY2202-19-29 17:02:000.4[facility] QqobcveIUTTWTBLID7099-45-80 17:02:000.0 [facility] BehcrwmIEPLGBZJIY0964-74-23 17:02:000.1[facility]annHEMATOLOGY 2015-06-17 17:02:0027.3[facility] BmrdclaRJPIFQDHAX1977-99-00 17:02:0065.3[facility] MliddzsHIXMPCDDBG7376-08-63 17:02:004.4[facility] KvauuhlNTGAXNTTKE1396-27-09 17:02:000.5[facility] SscfgmkCWRUIXLLVG6779-66-84 17:02:001.3[facility] LZEKWSBFAY7003-15-65 17:02:005.6[facility] GzodvapMIJQMYYDZL6786-80-13 17:02:001.9 [facility] VzfhfydKICEKVSPST8117-50-86 17:02:0028.8[facility]annHEMATOLOGY 2015-06-17 17:02:009.3[facility] HnrtlegDVFJTVWWYU3214-87-11 17:02:003.24[facility] YmnpmgbQFWVWLNDTR1205-95-40 17:02:00 Test Item Value Reference Range Interpretation Comments MCH (test code = MCH) 28.8 pg 27.0-31.0 [facility] YqkoysgGEVATYIRKY1193-97-69 17:02:0088.8[facility]annHEMATOLOGY 2015-06-17 17:02:04450Aspayazt FpkzkdcQGPEXQLLLW3091-01-05 17:02:0015.2[facility] IrzdtibZJPFWCOVYU9292-87-60 17:02:0032.4[facility] AnvedtxTKCATBETVV5727-84-52 17:02:009.3[facility] HslxlooHLPGWFHJKV7771-94-14 17:02:006.8[facility]annURINE AND FOYCB0233-74-98 17:02:00Yellow *NA*(06/17/15 12:02 PM)[facility] ZRSBG1453-22-37 17:02:00Clear (06/17/15 12:02 PM)[facility] JUUCX0413-79-64 17:02:00Negative (06/17/15 12:02 PM)[facility] VVFWK3307-12-73 17:02:000.2[facility] AND JOPCQ7858-63-79 17:02:00 Moderate *ABN*(06/17/15 12:02 PM)[facility] CRCHW1411-74-73 17:02:00Negative (06/17/15 12:02 PM)[facility] TYVHW2046-43-07 17:02:00Negative *NA*(06/17/15 12:02 PM)[facility] BRTSM0981-89-01 17:02:00Negative *NA*(06/17/15 12:02 PM)[facility] OZVOF0881-32-86 17:02:00 Test Item Value Reference Range Interpretation Comments UA pH (test code = UA pH) 6.5 1 5.0-8.0 [facility] ZMJTK4172-87-50 17:02:00 Test Item Value Reference Range Interpretation Comments UA Spec Grav (test code = UA Spec 1.020 1 Grav) [facility] ZUHV1065-03-84 17:02:00Negative (06/17/15 12:02 PM)[facility]annCHEM IJXVU4575-32-05 21:21:000.4[facility]annCHEM RNLJH5211-81-55 21:21:0018[facility]annCHEM AEVYC3167-91-94 21:21:005.0[facility]annCHEM QMOXO5675-32-39 21:21:0011.8[facility]annCHEM CAQBD2126-40-81 21:21:0049 [facility]annCHE[facility] KIHKD4756-25-65 21:21:75020Ztjwkdbn HermannCHEM PANEL 2014-08-29 21:21:0027[facility]annCHEM SPJDC0317-48-24 21:21:001.5[facility]annCHEM MHCVB5449-88-86 21:21:0022[facility]annCHEM BXZNW7062-68-70 21:21:008.7[facility]annCHEM MFOAT4575-21-27 21:21:003.8[facility]annCHEM LTPDM2012-37-11 21:21:42470Sjuzcunn HermannCHEM VNAGG3851-01-01 21:21:77898 [facility]annCHE[facility] TVZYB7372-14-87 21:21:0029[facility] HermannCHEM PANEL 2014-08-29 21:21:0061[facility]annCHEM YVKLD7967-34-12 21:21:001.9[facility]annCHEM QSIGL0429-76-09 21:21:0039[facility]annCHEM EXPHV9510-95-20 21:21:006.9[facility]annCHEM MYIRS5555-47-06 21:21:000.3[facility] NIQSUKCXPZ6227-01-23 21:21:000.6[facility] VmefjixZIRSFXJRNO4868-11-60 21:21:001.9 [facility] ZooeeabAXQGPKKIAS2083-51-64 21:21:000.0[facility]annHEMATOLOGY 2014-08-29 21:21:000.0[facility] CehrrfxIOFNNKSRYB2934-08-91 21:21:000.1[facility] DgotxbfTHXYRMUBWD6978-68-11 21:21:003.8[facility] NdpkebgQVBNEZBSBJ0504-98-93 21:21:000.2[facility] LlzfzbvPLJGJTREGU8603-05-58 21:21:0013.9[facility] NPFYEPWJBP9672-44-98 21:21:0084.1[facility] DgmzwtvOQPNZCLJNK9611-41-05 21:21:00 11.8[facility] LvsnxuaJBFONNCITH8278-73-28 21:21:00 Test Item Value Reference Range Interpretation Comments PTT (test code = PTT) 32.7 s 22.9-35.8 [facility] UzaywjvPZFLXHBAHR5438-11-56 21:21:00 Test Item Value Reference Range Interpretation Comments PT (test code = PT) 12.4 s 12.0-14.7 [facility] DvwwihxVVMHABKUPH4585-77-38 21:21:000.93[facility]annHEMATOLOGY 2014-08-29 21:21:009.5[facility] WagriomPMJFVZHEJX5537-11-23 21:21:0032.4[facility] TxitjiuIKMVSYRDCD0732-37-77 21:21:0014.2[facility] UdobapqIZHNONPKWJ6095-92-13 21:21:76579Oqdybxkz KldwdjdHEUFMVGXFL6381-54-67 21:21:0087.9[facility] EAMLTXCWSQ8989-98-28 21:21:0016.5[facility] FnzwqjqGVWZBSXDIG9950-07-52 21:21:00 4.32[facility] JpwozghCZDYNTMJKO1200-16-19 21:21:0012.3[facility]annHEMATOLOGY 2014-08-29 21:21:0037.9[facility] LfynogfZDMVZWANNW1081-47-02 21:21:00 Test Item Value Reference Range Interpretation Comments MCH (test code = MCH) 28.5 pg 27.0-31.0 [facility]
[2019-10-02] MEDS ORDERED: ACETAMINOPHEN 325 MG TABLET ONE ×2 (19:37→19:47)
[2019-10-02] MEDS ORDERED: NA CHLORIDE 0.9% 1,000 ML ONE (19:38)
[2019-10-02] MEDS ORDERED: dexAMETHasone 4 MG/ML VIAL ONE (19:40)
[2019-10-02] MEDS ORDERED: NA CHLORIDE 0.9% 250 ML ONE (19:41)
[2019-10-02] MEDS ORDERED: CEFTRIAXONE/SWI 1gm 1 GM/10 ML SYR ONE (19:41)
[2019-10-02] MEDS ORDERED: AZITHROMYCIN 500 MG INJ IVPB ONE (19:41)
--- NOTE | 2019-10-02 19:47 | RAD REPORT ---
EXAM DESCRIPTION: Joe Single View10/02/2019 7:33 pm CLINICAL HISTORY: Cough COMPARISON: 2018 FINDINGS: Moderate right and small left pleural effusion suspected Moderate bilateral pulmonary opacities. The heart is enlarged Central venous catheter in place IMPRESSION: These findings probably indicate CHF
[2019-10-02 20:16] LABS: Absolute Lymphocytes (CBC) 0.5 K/uL (0.7-4.9); Basophils % 0.7 % (0-1.3); Hematocrit 31.3 % (36.0-45.0); Lymphocytes % 12.7 % (15.3-44.8); MPV 9.5 fL (7.6-11.3); RBC Red Blood Cell Count 3.51 M/uL (3.86-4.86)
[2019-10-02 20:20] LABS: Protime INR 1.1
[2019-10-02] MEDS ORDERED: D50W 25 GM/50 ML SYRINGE/VIAL IV ONE ×2 (20:21→22:10)
[2019-10-02 21:51] LABS: Albumin 2.7 g/dL (3.4-5.0); Bilirubin Direct 0.1 mg/dL (0-0.2); Bilirubin Total 0.3 mg/dL (0.2-1.0); CKMB Creatine Kinase MB 1.1 ng/mL (0.3-3.6); Protein, Total 8.6 g/dL (6.4-8.2)
[2019-10-02 21:52] LABS: Potassium 6.4 mmol/L (3.5-5.1)
--- NOTE | 2019-10-02 22:02 | EDPHYS ---
Physician Documentation [facility] Name: Yamile Brooke Age: 49 yrs Sex: Female : 1970 Arrival Date: 10/02/2019 Time: 19:02 Bed 7 Private MD: ED Physician Cesar Landrum HPI: 10/01 19:30 This 49 yrs old Black Female presents to ER via EMS with complaints of Breathing heather Difficulty, Cough. 19:30 The patient has shortness of breath at rest, with light activity. Onset: The heather symptoms/episode began/occurred 3 day(s) ago. Duration: The symptoms are continuous, and are steadily getting worse. The patient's shortness of breath is aggravated by coughing, exertion, light activity, prone position, supine position. Associated signs and symptoms: Pertinent positives: non-productive cough. Severity of symptoms: At their worst the symptoms were moderate in the emergency department the symptoms are unchanged. The patient has experienced similar episodes in the past, a few times. 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 - Social history:: Smoking status: Patient denies any tobacco usage or history of. ROS: 19:32 Eyes: Negative for injury, pain, redness, and discharge, ENT: Negative for injury, heather pain, and discharge, Neck: Negative for injury, pain, and swelling, Cardiovascular: Negative for chest pain, palpitations, and edema, Abdomen/GI: Negative for abdominal pain, nausea, vomiting, diarrhea, and constipation, Back: Negative for injury and pain, : Negative for injury, bleeding, discharge, and swelling, MS/Extremity: Negative for injury and deformity, Skin: Negative for injury, rash, and discoloration, Neuro: Negative for headache, weakness, numbness, tingling, and seizure, Psych: Negative for depression, anxiety, suicide ideation, homicidal ideation, and hallucinations, Allergy/Immunology: Negative for hives, rash, and allergies, Endocrine: Negative for neck swelling, polydipsia, polyuria, polyphagia, and marked weight changes, Hematologic/Lymphatic: Negative for swollen nodes, abnormal bleeding, and unusual bruising. 19:32 Constitutional: Positive for body aches, chills, fever. 19:32 Respiratory: Positive for cough, shortness of breath, at rest. 19:32 MS/extremity: Negative for acute changes, swelling, tenderness. Exam: 19:32 Head/Face: Normocephalic, atraumatic. Eyes: Pupils equal round and reactive to light, heather extra-ocular motions intact. Lids and lashes normal. Conjunctiva and sclera are non-icteric and not injected. Cornea within normal limits. Periorbital areas with no swelling, redness, or edema. ENT: Nares patent. No nasal discharge, no septal abnormalities noted. Tympanic membranes are normal and external auditory canals are clear. Oropharynx with no redness, swelling, or masses, exudates, or evidence of obstruction, uvula midline. Mucous membranes moist. Neck: Trachea midline, no thyromegaly or masses palpated, and no cervical lymphadenopathy. Supple, full range of motion without nuchal rigidity, or vertebral point tenderness. No Meningismus. Chest/axilla: Normal chest wall appearance and motion. Nontender with no deformity. No lesions are appreciated. Abdomen/GI: Soft, non-tender, with normal bowel sounds. No distension or tympany. No guarding or rebound. No evidence of tenderness throughout. Back: No spinal tenderness. No costovertebral tenderness. Full range of motion. Skin: Warm, dry with normal turgor. Normal color with no rashes, no lesions, and no evidence of cellulitis. MS/ Extremity: Pulses equal, no cyanosis. Neurovascular intact. Full, normal range of motion. Neuro: Awake and alert, GCS 15, oriented to person, place, time, and situation. Cranial nerves II-XII grossly intact. Motor strength 5/5 in all extremities. Sensory grossly intact. Cerebellar exam normal. Normal gait. Psych: Awake, alert, with orientation to person, place and time. Behavior, mood, and affect are within normal limits. 19:32 Constitutional: The patient appears febrile. 19:32 Cardiovascular: Rate: tachycardic, Rhythm: regular, Pulses: Pulses are 4+ in bilateral radial, brachial, femoral, popliteal, posterior tibial and and dorsalis pedis arteries.. Heart sounds: normal, Edema: is not appreciated, JVD: is not appreciated. 22:42 ECG was reviewed by the Attending Physician. [facility] Vital Signs: 19:03 BP 144 / 88; Pulse 105; Resp 22; Temp 100.4; Pulse Ox 100% ; sv 19:30 BP 121 / 85; Pulse 93; Resp 19; Pulse Ox 97% on 15% Non-rebreather mask; rr5 20:34 Weight 68.04 kg; Height 5 ft. 8 in. (172.72 cm); rr5 21:10 BP 100 / 74; Pulse 89; Resp 20; Pulse Ox 97% on 10% Non-rebreather mask; rr5 21:36 BP 114 / 83; Pulse 84; Resp 18; Temp 99; Pulse Ox 99% on 10% Non-rebreather mask; rr5 22:50 BP 128 / 84; Pulse 84; Resp 17; Pulse Ox 99% on 10% Non-rebreather mask; rr5 20:34 Body Mass Index 22.81 (68.04 kg, 172.72 cm) rr5 MDM: 19:20 Patient medically screened. [facility] 19:46 Data reviewed: vital signs, nurses notes, lab test result(s), EKG, radiologic studies, [facility] plain films. 21:50 Differential diagnosis: Bronchitis CHF exacerbation, Chronic Obstructive Pulmonary heather Disease bacterial infection, URI, bronchitis, pneumonia pneumonia, pulmonary edema, Pulmonary Embolism reactive airway disease. Antibiotic administration: Rocephin and Zithromax given. Differential Diagnosis sepsis, flu. The patient's Wells Deep Vein Thrombosis Score was calculated as follows: Total Score: 0-2 Pts- Low Risk. The patient's pulmonary embolism risk score was calculated as follows: Total Score: 0-2 points. This patient was found to be at low risk for a pulmonary embolism by using the Well's assessment criteria. Immunization status:. Data interpreted: monitoring specialist: rate is 84 beats/min, rhythm is normal sinus rhythm, regular, Pulse oximetry: on 15% oxygen by non-rebreather, is 99 %. Test interpretation: by ED physician or midlevel provider: ECG, plain radiologic studies. Counseling: I had a detailed discussion with the patient and/or guardian regarding: the historical points, exam findings, and any diagnostic results supporting the discharge/admit diagnosis, the presence of at least one elevated blood pressure reading (>120/80) during this emergency department visit, lab results, radiology results, the need for further work-up and treatment in the hospital. ED course: to dr russo, consult dr shaikh. 10/01 19:08 Order name: Amylase, Serum [facility] 10/01 19:08 Order name: Basic Metabolic Panel [facility] 10/01 19:08 Order name: Blood Culture Adult (2) [facility] 10/01 19:08 Order name: CBC with Diff; Complete Time: 21:28 [facility] 10/01 19:08 Order name: Ckmb; Complete Time: 01:05 [facility] 10/01 19:08 Order name: CPK; Complete Time: 01:05 [facility] 10/01 19:08 Order name: Lactate; Complete Time: 21:28 [facility] 10/01 19:08 Order name: LFT's; Complete Time: 01:05 [facility] 10/01 19:08 Order name: Lipase; Complete Time: 01:05 [facility] 10/01 19:08 Order name: Procalcitonin; Complete Time: 21:55 [facility] 10/01 19:08 Order name: Protime (+inr); Complete Time: 21:28 [facility] 10/01 19:08 Order name: Ptt, Activated; Complete Time: 21:28 [facility] 10/01 19:08 Order name: Troponin (emerg Dept Use Only); Complete Time: 01:05 [facility] 10/01 19:08 Order name: Urine Microscopic Only [facility] 10/01 19:08 Order name: Chest Single View XRAY; Complete Time: 20:17 [facility] 10/01 19:09 Order name: Amylase; Complete Time: 01:05 [facility] 10/01 19:09 Order name: Basic Metabolic Panel; Complete Time: 01:05 [facility] 10/01 19:14 Order name: Flu; Complete Time: 21:28 10/01 19:14 Order name: Strep; Complete Time: 21:28 10/01 19:14 Order name: COVID-19; Complete Time: 01:05 10/01 20:18 Order name: Urine Culture [facility] 10/01 20:21 Order name: Glucose, Ancillary Testing; Complete Time: 20:23 [facility] 10/01 20:43 Order name: Throat Culture [facility] 10/01 21:39 Order name: Glucose, Ancillary Testing; Complete Time: 21:48 [facility] 10/01 22:20 Order name: NT PRO-BNP; Complete Time: 01:05 [facility] 10/02 01:45 Order name: Basic Metabolic Panel; Complete Time: 01:58 [facility] 10/02 01:45 Order name: Troponin I; Complete Time: 01:58 [facility] 10/02 04:08 Order name: Glucose, Ancillary Testing; Complete Time: 04:27 [facility] 10/01 19:08 Order name: Accucheck; Complete Time: 20:33 rr5 10/01 19:08 Order name: Cardiac monitoring; Complete Time: 20:33 rr5 10/01 19:08 Order name: EKG - Nurse/Tech; Complete Time: 20:33 rr5 10/01 19:08 Order name: IV Saline Lock - Large Bore; Complete Time: 20:33 rr5 10/01 19:08 Order name: Labs collected and sent; Complete Time: 20:33 rr5 10/01 19:08 Order name: O2 Per Protocol; Complete Time: 20:33 rr5 10/01 19:08 Order name: O2 Sat Monitoring; Complete Time: 20:33 rr5 10/01 22:09 Order name: CONS Physician Consult [facility] 10/01 22:20 Order name: CONS Physician Consult [facility] 10/02 00:28 Order name: Labs - recollect needed: Draw BMP at 0100, rechecking potassium; Complete sg Time: 02:30 10/02 01:29 Order name: EKG; Complete Time: 01:30 [facility] 10/02 01:29 Order name: EKG - Nurse/Tech; Complete Time: 02:30 [facility] EC:42 Rate is 97 beats/min. Rhythm is regular. QRS [place] is Normal. [place] interval is normal. QRS heather interval is normal. QT interval is normal. No Q waves. T waves are Peaked. No ST changes noted. Clinical impression: Suggests hyperkalemia. Interpreted by me. Reviewed by me. Administered Medications: 19:29 CANCELLED (Duplicate Order): NS 0.9% (30 ml/kg) 30 ml/kg IV at bolus once; Sepsis heather Protocol 19:53 CANCELLED (Duplicate Order): NS 0.9% 1000 ml IV at 75 ml/hr continuous heather 20:00 Drug: Tylenol 650 mg Route: PO; rr5 21:00 Follow up: Response: No adverse reaction; Temperature is decreased rr5 20:15 Drug: D50W 25 ml Route: IVP; Site: right hand; rr5 21:40 Follow up: Response: No adverse reaction; Blood sugar is elevated rr5 20:18 Drug: Decadron - Dexamethasone 6 mg Route: IVP; Site: right hand; rr5 21:20 Follow up: Response: No adverse reaction rr5 20:20 Drug: Rocephin 1 grams Route: IV; Rate: per protocol; Site: right hand; rr5 21:20 Follow up: Response: No adverse reaction; IV Status: Completed infusion; IV Intake: [id number] 10/02 03:06 Follow up: Response: No adverse reaction; IV Status: Completed infusion 10/01 20:32 Dru mg of (Zithromax 500 mg, NS 0.9% 250 ml) Route: IVPB; Infused Over: 1 hrs; rr5 Site: right hand; 21:30 Follow up: Response: No adverse reaction; IV Status: Completed infusion; IV Intake: rr5 250ml 20:33 CANCELLED (Duplicate Order): Tylenol 650 mg PO once rr5 22:30 Drug: Sodium Bicarbonate 0.5 amp Route: IVP; Site: right hand; rr5 23:30 Follow up: Response: No adverse reaction rr5 22:35 Drug: D50W 50 ml Route: IVP; Site: right hand; rr5 23:39 Follow up: Response: No adverse reaction rr5 22:35 Drug: Insulin Regular Human 10 units {Co-Signature: .} Route: IVP; rr5 Site: right hand; 23:39 Follow up: Response: No adverse reaction rr5 22:40 Drug: Lasix 100 mg Route: IVP; Site: right hand; rr5 23:38 Follow up: Response: No adverse reaction rr5 22:43 Drug: Kayexalate 30 grams Route: PO; rr5 23:38 Follow up: Response: No adverse reaction rr5 22:47 Drug: Calcium Gluconate 1 grams Route: IVPB; Infused Over: 60 mins; Site: right hand; rr5 23:39 Follow up: Response: No adverse reaction; IV Status: Completed infusion; IV Intake: rr5 100ml 10/02 02:20 Drug: Kayexalate 30 grams Route: PO; 03:07 Follow up: Response: No adverse reaction 02:22 Drug: Sodium Bicarbonate 0.5 amp Route: IVP; Site: right wrist; 03:07 Follow up: Response: No adverse reaction 02:24 Drug: D50W 50 ml Route: IVP; Site: right wrist; 03:06 Follow up: Response: No adverse reaction 02:26 Drug: Insulin Regular Human 10 units {Co-Signature: rr5 (Patrick Payton RN).} Route: wh IVP; Site: right wrist; 03:07 Follow up: Response: No adverse reaction 02:28 Drug: Calcium Gluconate 1 grams Route: IVPB; Infused Over: 30 mins; Site: right wrist; 04:57 Follow up: Response: No adverse reaction; IV Status: Completed infusion 04:56 Drug: D50W 25 ml Route: IVP; Site: right wrist; 04:57 Follow up: Response: No adverse reaction Disposition: 10/02/19 22:00 Hospitalization ordered by Livan Russo for Inpatient Admission. Preliminary diagnosis are Hypoxemia, End stage renal disease - on hd, Fever, unspecified, Pleural effusion in conditions classified elsewhere, Hyperkalemia, Unspecified combined systolic (congestive) and diastolic (congestive) heart failure - volume overload, Type 2 diabetes mellitus, Hypoglycemia, unspecified, Non-ST elevation (NSTEMI) myocardial infarction. - Bed requested for Telemetry/MedSurg (Inpatient). - Status is Inpatient Admission. - Condition is Fair. - Problem is new. - Symptoms have improved. Signatures: Dispatcher [employer] Carole Cross RN RN sv Webb, Martha RN Ted Rogers RN RN sg Anderson, Corey, MD MD cha Munoz, Edgar RN Rohith Rodriguez Patrick Payton RN RN rr5 Rohith Barrett Patrick Paytno RN rr5 Corrections: (The following items were deleted from the chart) 10/01 19:29 19:08 NS 0.9% (30 ml/kg) 30 ml/kg IV at bolus once; Sepsis Protocol ordered. rr5 heather 19:53 19:29 NS 0.9% 1000 ml IV at 75 ml/hr continuous ordered. heather heather 20:33 19:27 Tylenol 650 mg PO once ordered. sg rr5 22:20 21:57 PROBNP+C.LAB.BRZ ordered. [facility] EDMS 22:20 22:00 Hospitalization Ordered by A Chandu IGLESIAS for Inpatient Admission. Preliminary heather diagnosis is Hypoxemia; End stage renal disease - on hd; Fever, unspecified; Pleural effusion in conditions classified elsewhere; Hyperkalemia; Unspecified combined systolic (congestive) and diastolic (congestive) heart failure - volume overload; Type 2 diabetes mellitus; Hypoglycemia, unspecified. Bed requested for Intensive Care Unit. Status is Inpatient Admission. Condition is Fair. Problem is new. Symptoms have improved. [facility] 22:48 22:20 10/02/2019 22:00 Hospitalization Ordered by A Chandu IGLESIAS for Inpatient Admission. Preliminary diagnosis is Hypoxemia; End stage renal disease - on hd; Fever, unspecified; Pleural effusion in conditions classified elsewhere; Hyperkalemia; Unspecified combined systolic (congestive) and diastolic (congestive) heart failure - volume overload; Type 2 diabetes mellitus; Hypoglycemia, unspecified; Non-ST elevation (NSTEMI) myocardial infarction. Bed requested for Intensive Care Unit. Status is Inpatient Admission. Condition is Fair. Problem is new. Symptoms have improved. [facility] 22:48 22:48 10/02/2019 22:00 Hospitalization Ordered by A Chandu IGLESIAS for Inpatient Admission. Preliminary diagnosis is Hypoxemia; End stage renal disease - on hd; Fever, unspecified; Pleural effusion in conditions classified elsewhere; Hyperkalemia; Unspecified combined systolic (congestive) and diastolic (congestive) heart failure - volume overload; Type 2 diabetes mellitus; Hypoglycemia, unspecified; Non-ST elevation (NSTEMI) myocardial infarction. Bed requested for [facility] ER HOLD. Status is Inpatient Admission. Condition is Fair. Problem is new. Symptoms have improved. 10/02 04:12 10/01 22:48 10/02/2019 22:00 Hospitalization Ordered by A Chandu IGLESIAS for Inpatient mw Admission. Preliminary diagnosis is Hypoxemia; End stage renal disease - on hd; Fever, unspecified; Pleural effusion in conditions classified elsewhere; Hyperkalemia; Unspecified combined systolic (congestive) and diastolic (congestive) heart failure - volume overload; Type 2 diabetes mellitus; Hypoglycemia, unspecified; Non-ST elevation (NSTEMI) myocardial infarction. Bed requested for [facility] ER HOLD. Status is Inpatient Admission. Condition is Fair. Problem is new. Symptoms have improved. 10/02 04:34 04:12 10/02/2019 22:00 Hospitalization Ordered by A Chandu IGLESIAS for Inpatient Admission. mw Preliminary diagnosis is Hypoxemia; End stage renal disease - on hd; Fever, unspecified; Pleural effusion in conditions classified elsewhere; Hyperkalemia; Unspecified combined systolic (congestive) and diastolic (congestive) heart failure - volume overload; Type 2 diabetes mellitus; Hypoglycemia, unspecified; Non-ST elevation (NSTEMI) myocardial infarction. Bed requested for Telemetry/MedSurg (Inpatient). Status is Inpatient Admission. Condition is Fair. Problem is new. Symptoms have improved. 05:24 04:34 10/02/2019 22:00 Hospitalization Ordered by A Chandu IGLESIAS for Inpatient Admission. wh Preliminary diagnosis is Hypoxemia; End stage renal disease - on hd; Fever, unspecified; Pleural effusion in conditions classified elsewhere; Hyperkalemia; Unspecified combined systolic (congestive) and diastolic (congestive) heart failure - volume overload; Type 2 diabetes mellitus; Hypoglycemia, unspecified; Non-ST elevation (NSTEMI) myocardial infarction. Bed requested for Telemetry/MedSurg (Inpatient). Status is Inpatient Admission. Condition is Fair. Problem is new. Symptoms have improved. evan
--- NOTE | 2019-10-02 22:02 | ER ---
Nurse's Notes [facility] Name: Yamile Brooke Age: 49 yrs Sex: Female : 1970 Arrival Date: 10/02/2019 Time: 19:02 Bed 7 Private MD: Diagnosis: Hypoxemia;End stage renal disease-on hd;Fever, unspecified;Pleural effusion in conditions classified elsewhere;Hyperkalemia;Unspecified combined systolic (congestive) and diastolic (congestive) heart failure-volume overload;Type 2 diabetes mellitus;Hypoglycemia, unspecified;Non-ST elevation (NSTEMI) myocardial infarction Presentation: 10/01 19:00 Chief complaint: EMS states: SOB, fever, and cough since yesterday, 60% on RA, placed em on nonrebreather, SPO2 94%. Onset of symptoms. 19:00 Method Of Arrival: EMS: [facility] em 19:03 Coronavirus screen: Patient reports a cough. Patient reports shortness of breath or sv difficulty breathing. Patient reports a measured and/or subjective temperature greater than 100.4F. Patient denies travel on a cruise ship or to a country the [facility] currently lists as an affected area. Patient denies contact with known and/or suspected case of COVID-19. Ebola Screen: No symptoms or risks identified at this time. Initial Sepsis Screen: Does the patient meet any 2 criteria? RR > 20 per min. HR > 90 bpm. Yes Does the patient have a suspected source of infection? Yes: Productive cough/pneumonia. Risk Assessment: Do you want to hurt yourself or someone else? Patient reports no desire to harm self or others. 19:03 Acuity: ARIE 2 sv Triage Assessment: 19:10 Respiratory: Onset: The symptoms/episode began/occurred gradually, the patient has mild rr5 shortness of breath. 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 - Social history:: Smoking status: Patient denies any tobacco usage or history of. Screenin:20 Abuse screen: Denies threats or abuse. Denies injuries from another. Nutritional rr5 screening: No deficits noted. Tuberculosis screening: No symptoms or risk factors identified. Fall Risk Secondary diagnosis (15 points) blind. IV access (20 points). Total Ferrer Fall Scale indicates Low Risk Score (25-44 pts). Fall prevention measures have been instituted. Side Rails Up X 2 Frequent Obs/Assesments occuring As available Patient and Family Educated on Fall Prevention Program and strategies. Assessment: 19:30 General: Appears in no apparent distress. uncomfortable, Behavior is calm, cooperative, rr5 appropriate for age, Reports fatigue for. Pain: Denies pain. Neuro: Level of Consciousness is awake, alert, obeys commands, Oriented to person, place, time. Cardiovascular: Capillary refill < 3 seconds Patient's skin is warm and dry. Rhythm is sinus rhythm. 19:30 Respiratory: Reports shortness of breath cough that is Airway is patent Respiratory rr5 effort is even, unlabored, Respiratory pattern is regular, symmetrical, tachypnea Breath sounds with crackles Breath sounds with rales. GI: No signs and/or symptoms were reported involving the gastrointestinal system. : No signs and/or symptoms were reported regarding the genitourinary system. EENT: Reports blind. Derm: Skin Skin temperature is warm. Musculoskeletal: Circulation, motion, and sensation intact. Capillary refill < 3 seconds. 20:30 Reassessment: Patient appears in no apparent distress at this time. Patient and/or rr5 family updated on plan of care and expected duration. Pain level reassessed. awaiting for results. 21:30 Reassessment: Patient appears in no apparent distress at this time. No changes from rr5 previously documented assessment. Patient and/or family updated on plan of care and expected duration. Pain level reassessed. 22:20 Reassessment: Patient appears in no apparent distress at this time. Patient and/or rr5 family updated on plan of care and expected duration. Pain level reassessed. Patient is alert, oriented x 3, equal unlabored respirations, skin warm/dry/pink. for admission, family member updated for the plan of care with verbal approval by the patient to give information to them. potassium result elevated, ED provider with order made and carried out. 22:20 Reassessment: [phone] mother of the patient contact number. rr5 10/02 03:48 Reassessment: Patient appears in no apparent distress at this time. pt VS have sg improved, o2 sats have maintained 95-98 percent on NC at 4 lpm, notified, pt to be downgraded from ICU to Medsurg/tele. Vital Signs: 10/01 19:03 BP 144 / 88; Pulse 105; Resp 22; Temp 100.4; Pulse Ox 100% ; sv 19:30 BP 121 / 85; Pulse 93; Resp 19; Pulse Ox 97% on 15% Non-rebreather mask; rr5 20:34 Weight 68.04 kg; Height 5 ft. 8 in. (172.72 cm); rr5 21:10 BP 100 / 74; Pulse 89; Resp 20; Pulse Ox 97% on 10% Non-rebreather mask; rr5 21:36 BP 114 / 83; Pulse 84; Resp 18; Temp 99; Pulse Ox 99% on 10% Non-rebreather mask; rr5 22:50 BP 128 / 84; Pulse 84; Resp 17; Pulse Ox 99% on 10% Non-rebreather mask; rr5 20:34 Body Mass Index 22.81 (68.04 kg, 172.72 cm) rr5 ED Course: 19:00 Arm band placed on. em 19:02 Patient arrived in ED. sv 19:05 Triage completed. sv 19:07 Patrick Payton, RN is Primary Nurse. rr5 19:15 Patient has correct armband on for positive identification. Placed in gown. Bed in low rr5 position. Call light in reach. Side rails up X2. 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 Pulse ox on. NIBP on. rr5 19:20 Cesar Landrum MD is Attending Physician. heather 19:30 Flu and/or RSV swab sent to lab. Strep swab sent to lab. covid 19. rr5 19:34 Chest Single View XRAY In Process Unspecified. EDMS 19:50 EKG done, by ED staff, reviewed by Cesar Landrum MD. rr5 20:00 Inserted saline lock: 20 gauge in right hand, using aseptic technique. Blood collected. rr5 20:00 First set of blood cultures drawn by me. rr5 20:15 Second set of blood cultures drawn by me. rr5 21:58 Livan Schofield MD is Hospitalizing Provider. heather 22:50 No provider procedures requiring assistance completed. Patient admitted, IV remains in rr5 place. intact, No redness/swelling at site. Administered Medications: 19:29 CANCELLED (Duplicate Order): NS 0.9% (30 ml/kg) 30 ml/kg IV at bolus once; Sepsis heather Protocol 19:53 CANCELLED (Duplicate Order): NS 0.9% 1000 ml IV at 75 ml/hr continuous heather 20:00 Drug: Tylenol 650 mg Route: PO; rr5 21:00 Follow up: Response: No adverse reaction; Temperature is decreased rr5 20:15 Drug: D50W 25 ml Route: IVP; Site: right hand; rr5 21:40 Follow up: Response: No adverse reaction; Blood sugar is elevated rr5 20:18 Drug: Decadron - Dexamethasone 6 mg Route: IVP; Site: right hand; rr5 21:20 Follow up: Response: No adverse reaction rr5 20:20 Drug: Rocephin 1 grams Route: IV; Rate: per protocol; Site: right hand; rr5 21:20 Follow up: Response: No adverse reaction; IV Status: Completed infusion; IV Intake: [id number] 10/02 03:06 Follow up: Response: No adverse reaction; IV Status: Completed infusion 10/01 20:32 Dru mg of (Zithromax 500 mg, NS 0.9% 250 ml) Route: IVPB; Infused Over: 1 hrs; rr5 Site: right hand; 21:30 Follow up: Response: No adverse reaction; IV Status: Completed infusion; IV Intake: rr5 250ml 20:33 CANCELLED (Duplicate Order): Tylenol 650 mg PO once rr5 22:30 Drug: Sodium Bicarbonate 0.5 amp Route: IVP; Site: right hand; rr5 23:30 Follow up: Response: No adverse reaction rr5 22:35 Drug: D50W 50 ml Route: IVP; Site: right hand; rr5 23:39 Follow up: Response: No adverse reaction rr5 22:35 Drug: Insulin Regular Human 10 units {Co-Signature: avelina (Rohith Barrett)iLbia} Route: IVP; rr5 Site: right hand; 23:39 Follow up: Response: No adverse reaction rr5 22:40 Drug: Lasix 100 mg Route: IVP; Site: right hand; rr5 23:38 Follow up: Response: No adverse reaction rr5 22:43 Drug: Kayexalate 30 grams Route: PO; rr5 23:38 Follow up: Response: No adverse reaction rr5 22:47 Drug: Calcium Gluconate 1 grams Route: IVPB; Infused Over: 60 mins; Site: right hand; rr5 23:39 Follow up: Response: No adverse reaction; IV Status: Completed infusion; IV Intake: rr5 100ml 10/02 02:20 Drug: Kayexalate 30 grams Route: PO; 03:07 Follow up: Response: No adverse reaction 02:22 Drug: Sodium Bicarbonate 0.5 amp Route: IVP; Site: right wrist; 03:07 Follow up: Response: No adverse reaction 02:24 Drug: D50W 50 ml Route: IVP; Site: right wrist; 03:06 Follow up: Response: No adverse reaction 02:26 Drug: Insulin Regular Human 10 units {Co-Signature: rr5 (Patrick Payton RN).} Route: wh IVP; Site: right wrist; 03:07 Follow up: Response: No adverse reaction 02:28 Drug: Calcium Gluconate 1 grams Route: IVPB; Infused Over: 30 mins; Site: right wrist; 04:57 Follow up: Response: No adverse reaction; IV Status: Completed infusion 04:56 Drug: D50W 25 ml Route: IVP; Site: right wrist; 04:57 Follow up: Response: No adverse reaction wh Intake: 10/01 21:20 IV: 10ml; Total: 10ml. rr5 21:30 IV: 250ml; Total: 260ml. rr5 23:39 IV: 100ml; Total: 360ml. rr5 Outcome: 22:00 Decision to Hospitalize by Provider. heather 23:36 Admitted to ER Hold. Please see [facility] for further documentation. rr5 23:36 Condition: stable 23:36 Instructed on the need for admit. 10/02 05:11 Admitted to Tele accompanied by nurse, via stretcher, room 401, with chart, Report wh called to Stephane Coello RN Condition: stable Instructed on the need for admit. 05:24 Patient left the ED. wh Signatures: Dispatcher [employer] EDCarole Tiwari RN Ted Dozier, RN Cesar Evans MD MD cha Munoz, Edgar, MILA Barrett, Patrick Boateng RN RN rr5 Rohith Payton RN rr5
[2019-10-02] MEDS ORDERED: FUROSEMIDE 100 MG/10 ML VIAL IV ONE (22:09)
[2019-10-02] MEDS ORDERED: SOD POLYSTYREN SUL 15 GM/60 ML UCUP ONE (22:10)
[2019-10-02] MEDS ORDERED: SODIUM BICARB 50 MEQ/50ML VIAL ONE (22:11)
[2019-10-02] MEDS ORDERED: CALCIUM GLUCONATE 1 GM IVPB 1 GM/50 ML BAG IV ONE (22:11)
[2019-10-02 22:14] LABS: Troponin (Emerg Dept Use Only) 0.42 ng/mL (0.0-0.045)
[2019-10-02] MEDS ORDERED: INSULIN -REGULAR HUMAN 50 UNIT/0.5 ML ML ONE (22:28)
[2019-10-02] MEDS ORDERED: ALBUTEROL 2.5 MG/3 ML NEB SOL NEB PRN (22:58)
[2019-10-02] MEDS ORDERED: IPRATROPIUM BROM 0.5MG/2.5ML NEB PRN (22:58)
[2019-10-02] MEDS ORDERED: ONDANSETRON 4 MG/2 ML VIAL IV PRN (22:58)
[2019-10-02] MEDS: SOD POLYSTYREN SUL 15 GM/60 ML UCUP PO SCH (23:00)
[2019-10-02] MEDS ORDERED: ACETAMINOPHEN 325 MG TABLET PO PRN (23:06)
[2019-10-03] MEDS ORDERED: dexAMETHasone 4 MG/ML VIAL ONE (00:55)
[2019-10-03] MEDS ORDERED: dexAMETHasone 10 MG/ML VIAL IV SCH (01:00)
[2019-10-03 01:44] LABS: Potassium 6.2 mmol/L (3.5-5.1); Troponin I 0.5 ng/mL (0.0-0.045)
[2019-10-03] MEDS ORDERED: SOD POLYSTYREN SUL 15 GM/60 ML UCUP ONE (01:53)
[2019-10-03] MEDS ORDERED: D50W 25 GM/50 ML SYRINGE/VIAL IV ONE ×2 (01:53→04:47)
[2019-10-03] MEDS ORDERED: SODIUM BICARB 50 MEQ/50ML VIAL ONE (01:53)
[2019-10-03] MEDS ORDERED: CALCIUM GLUCONATE 1 GM IVPB 1 GM/50 ML BAG IV ONE (01:53)
[2019-10-03] MEDS ORDERED: INSULIN -REGULAR HUMAN 50 UNIT/0.5 ML ML ONE (01:57)
[2019-10-03 07:05] LABS: Absolute Lymphocytes (CBC) 0.3 K/uL (0.7-4.9); Basophils % 0.7 % (0-1.3); Hematocrit 29.8 % (36.0-45.0); Lymphocytes % 14.8 % (15.3-44.8); MPV 9.2 fL (7.6-11.3); RBC Red Blood Cell Count 3.34 M/uL (3.86-4.86)
[2019-10-03 07:34] LABS: Blood Morphology Comment NOTED (NOT SEEN); Platelet Estimate DECR; Rouleau NOTED; Urine White Blood Cell Casts OK
[2019-10-03 07:37] LABS: Potassium 5.8 mmol/L (3.5-5.1)
[2019-10-03] MEDS ORDERED: GLUCAGON 1 MG/VIAL IM PRN (07:42)
[2019-10-03] MEDS ORDERED: D50W 25 GM/50 ML SYRINGE/VIAL IV PRN (07:42)
[2019-10-03] MEDS: INSULIN -REGULAR HUMAN 50 UNIT/0.5 ML ML SQ SCH ×4 (08:00→21:00)
[2019-10-03] MEDS: FUROSEMIDE 20 MG/ 2ML VIAL IV SCH ×3 (08:13→23:05)
[2019-10-03] MEDS: NIFEDIPINE XL 60 MG TABLET PO SCH ×2 (08:13→23:17)
[2019-10-03] MEDS: dexAMETHasone 4 MG/ML VIAL IV SCH ×2 (08:14→17:00)
--- NOTE | 2019-10-03 09:07 | RAD REPORT ---
EXAM DESCRIPTION: RAD - Chest Single View - 10/03/2019 6:35 am CLINICAL HISTORY: Chest Pain Chest pain. COMPARISON: Chest Single View dated 10/02/2019; Chest Single View dated 11/15/2017; Chest Single View d ated 11/14/2017; Chest Single View dated 08/21/2017 FINDINGS: Portable technique limits examination quality. Bilateral pulmonary opacities and pleural effusions are again seen, appearing unchanged when consider ing mild patient rotation on today's image. The heart is moderately enlarged in size. Right-sided anne marie ous catheter is unchanged.
[2019-10-03] MEDS ORDERED: MANNITOL 25% 12.5 GM/50 ML VIAL IV PRN (10:10)
[2019-10-03] MEDS ORDERED: NA CHLORIDE 0.9% 1,000 ML IV PRN (10:10)
[2019-10-03] MEDS: SOD POLYSTYREN SUL 15 GM/60 ML UCUP PO SCH ×3 (10:59→23:15)
[2019-10-03] MEDS ORDERED: ALBUMIN HUMAN 25% 50 ML IV SCH (11:00)
[2019-10-03] MEDS: GABAPENTIN 100 MG CAP PO SCH ×2 (11:13→23:16)
[2019-10-03] MEDS: HYDRALAZINE HCL 10 MG TABLET PO SCH ×2 (11:14→23:17)
--- NOTE | 2019-10-03 12:49 | CON ---
Date of Consultation: 10/03/2019 Reason For Consultation: Hypoxia and shortness of breath. History Of Present Illness: Ms. Brooke is a 49-year-old black woman. Has had a history of end-sta ge renal disease, on hemodialysis. She missed her last dialysis on Monday. She also has a history of ADD, anemia, hypertension, dyslipidemia, DVT, neuropathy, and right eye blindness. She came in wi th shortness of breath. Denied chest pain, nausea, vomiting, PND, orthopnea, pedal edema, palpitatio ns, or syncope. Did have some diaphoresis. Past Medical History: As stated above. Allergies: SHE IS ALLERGIC TO TRAMADOL. Review of Systems: Negative. Social History: Negative. Family History: Negative. Medications: At home include Procardia, hydralazine, and Neurontin. Physical Examination: Vital Signs: Her blood pressure was 181/85. Her vital signs were otherwise stable. She was in sinu s rhythm, afebrile. HEENT: Negative. Chest: Clear. Neck: Revealed no lymphadenopathy, JVD, or bruit. Cardiac: Revealed a regular rhythm and rate with an S4 gallops. Abdomen: Benign. Extremities: Revealed no clubbing, cyanosis, or edema. Diagnostic Data: Creatinine was 16.30. Potassium 5.8. Troponin 0.42. BNP was 34,159. White count is 2.2, hemoglobin 9.9, platelet count is 89. Impression And Plan: 1.Volume overload and hypoxia secondary to renal failure. 2.History of end-stage renal disease, on hemodialysis. She missed dialysis yesterday. She will be getting dialyzed today. 3.Pancytopenia. 4.Attention deficit disorder. 5.Hypertension, needs to be treated more aggressively. She is on Procardia now and hydralazine. Ma y benefit from addition of Norvasc. I will discuss that further with Dr. Schofield. 6.Her other problems include neuropathy, right eye blindness, and history of deep venous thrombosis in the past. She is not on any anticoagulants right now. We will see how Ms. Brooke does with the dialysis. I think she has had recent echo and she had a negative stress test in my office recently. I am not concerned about the elevated troponin and BNP. I think that is secondary to renal failure . I will continue to follow the patient along with Dr. Schofield. No cardiac workup at this point. ISAAC/SUDHA Voice ID: [id number] Report ID: [id number]
[2019-10-03] MEDS: PREDNISOLONE 1% OPTH SOLN 5ML OPTH SCH ×3 (14:00→23:06)
[2019-10-03] MEDS ORDERED: ALBUTEROL 2.5 MG/3 ML NEB SOL NEB PRN (15:00)
[2019-10-03] MEDS ORDERED: IPRATROPIUM BROM 0.5MG/2.5ML NEB PRN (16:00)
[2019-10-03] MEDS: AZITHROMYCIN IV 500 MG in NA CHLORIDE 0.9% 250 ML IVPB SCH ×2 (21:00→23:15)
[2019-10-03] MEDS ORDERED: CEFTRIAXONE/SWI 1gm 1 GM/10 ML SYR IV SCH (21:00)
[2019-10-03] MEDS ORDERED: CEFTRIAXONE/SWI 1gm 1 GM/10 ML SYR IVP SCH (21:00)
[2019-10-03] MEDS ORDERED: CEFTRIAXONE 1 GM/NS 50 ML 1 GM/50 ML BAG IV SCH (21:00)
--- NOTE | 2019-10-03 21:22 | P.CNS ---
Date of Consult: 10/03/19 Reason for Consult: ESRD Requesting Physician: Vasile Schofield Primary Care Provider: Dr. Schofield History of Present Illness: 49 yo BF DM, HTN, CHF presents to the ER with severe, progressive dyspnea in the setting of CHF and possible COVID19 with associated cough. Recently missed HD and found to have hyperkalemia. Case reviewed with Dr. Landrum. Dialysis nurse advised of urgent dialysis while the patient was in the ER. 19:30 This 49 yrs old Black Female presents to ER via EMS with complaints of Breathing heather Difficulty, Cough. 19:30 The patient has shortness of breath at rest, with light activity. Onset: The heather symptoms/episode began/occurred 3 day(s) ago. Duration: The symptoms are continuous, and are steadily getting worse. The patient's shortness of breath is aggravated by coughing, exertion, light activity, prone position, supine position. Associated signs and symptoms: Pertinent positives: non-productive cough. Severity of symptoms: At their worst the symptoms were moderate in the emergency department the symptoms are unchanged. The patient has experienced similar episodes in the past, a few times. Allergies tramadol Allergy (Mild, Verified 10/02/19 23:02) Anaphylaxis Home medications list reviewed: Yes Home Medications: Gabapentin [Neurontin*] 2 cap PO BID 03/09/17 Nifedipine [Nifedipine ER] 90 mg PO BID 08/22/17 Hydralazine [Apresoline*] 10 mg PO BID 11/14/17 Prednisolone Acetate 1 gtt OPTH QID 11/14/17 Ronald/Poly/Dexa [Maxitrol Opth Oint*] 1 appl OPTH BID 10/03/19 - Past Medical/Surgical History Diabetic: Yes -: HTN -: DM-2 -: Dyslipidemia -: anemia -: esrd -: Hep C -: CHF -: hysterectomy -: x2 -: king martínez (2016) - Family History Mother Medical History: Hypertension Father Medical History: Heart disease, Hypertension, Diabetes - Social History Smoking Status: Never smoker Alcohol use: No CD- Drugs: No Caffeine use: No Place of Residence: Home Review of Systems 10-point ROS is otherwise unremarkable General: Weakness, Malaise Respiratory: Cough, Shortness of Breath Cardiovascular: Edema Neurological: Weakness Physical Examination Temp Pulse Resp BP Pulse Ox 97.4 F 90 20 167/93 H 20 L 10/03/19 16:00 10/03/19 16:00 10/03/19 12:00 10/03/19 16:00 10/03/19 16:00 General: In no apparent distress, Oriented x3, Cooperative HEENT: Mucous membr. moist/pink Neck: Supple, JVD distended Respiratory: Diminished Cardiovascular: Regular rate/rhythm, Edema Gastrointestinal: Soft and benign, Non-distended Musculoskeletal: No clubbing, No contractures Integumentary: No rashes, No cyanosis Neurological: Normal speech Laboratory Data (last 24 hrs) 10/02/19 20:50: Sodium 133 L, Potassium 6.4 H*, BUN 62 H, Creatinine 15.80 H*, Glucose 105, Total Bilirubin 0.3, AST 34, ALT 14, Alkaline Phosphatase 46, Amylase 129 H, Lipase 512 H Imagings Data: EXAM DESCRIPTION: RAD - Chest Single View - 10/03/2019 6:35 am CLINICAL HISTORY: Chest Pain Chest pain. COMPARISON: Chest Single View dated 10/02/2019; Chest Single View dated 11/15/2017; Chest Single View dated 11/14/2017; Chest Single View dated 08/21/2017 FINDINGS: Portable technique limits examination quality. Bilateral pulmonary opacities and pleural effusions are again seen, appearing unchanged when considering mild patient rotation on today's image. The heart is moderately enlarged in size. Right-sided venous catheter is unchanged. Conclusions/Impression: A/ ESRD on HD. Hyponatremia. Hyperkalemia. Diastolic CHF, A/C. HTN with CKD/ CHF. DM II with CKD and Polyneuropathy. Anemia in CKD. CARMELITA/ Secondary HyperPTH. COVID19 PNA P/ Continue current POC and Medications. Kayexalate as ordered. Acute HD with UF. Give Retacrit. COVID Protocol. Continue abx. Start Vitamin C. No NSAIDs. AM Labs. Daily weight. Greater than 30min patient care. Critical Care: Yes
[2019-10-03] MEDS ORDERED: EPOETIN ALFA-EPBX 10,000 UNIT/ML VIAL SQ ONE (21:27)
[2019-10-03] MEDS: NEO/POLY/DEX OPTH 3.5 GM TUBE EACH EYE SCH (23:06)
[2019-10-03] MEDS: ASCORBIC ACID 500 MG TABLET PO SCH (23:16)
[2019-10-04] MEDS: dexAMETHasone 4 MG/ML VIAL IV SCH ×3 (01:00→16:44)
--- NOTE | 2019-10-04 01:57 | HP ---
Date of Admission: 10/03/2019 Chief Complaint: Shortness of breath. History Of Present Illness: This is a 49-year-old female patient with multiple chronic comorbidities, especially end-stage renal disease, on hemodialysis, came into emergency room because of shortness of breath problem. The patient goes for dialysis on Monday, , and Monday and she missed her dialysis for Monday. She came into ER, her oxygen saturation was very low, potassium was very high, so appropriate treatment was given for correction of potassium in emergency room. Health Services Director was consulted and the patient was admitted to the hospital. When I saw her this morning, she did not have any other specific complaints. She was not in any respiratory distress. Medications: List reviewed. Allergies: TO TRAMADOL. Review of Systems: Respiratory: As mentioned above. Eyes: The patient is legally blind in both eyes. 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 All other systems reviewed and negative. Social History: Negative for smoking, alcohol use. Family History: Significant for hypertension, diabetes, coronary artery disease, pulmonary embolism, atrial fibrillation. Past Surgical History: Significant for hysterectomy, coronary artery angioplasty with stent placement in June 2016. Past Medical History: Hypertension, end-stage renal disease on hemodialysis, chronic systolic congestive heart failure with low ejection fraction, bilateral pleural effusion, diabetes mellitus, hyperlipidemia, coronary artery disease, DVT of right arm, peritonitis while she was on peritoneal dialysis, and anemia due to chronic kidney disease. Physical Examination: Vital Signs: Height 5 feet 8 inches, weight 170 pounds, temperature 99, pulse 88, respiratory rate 22, blood pressure 181/105, oxygen saturation 91%. General: Awake, alert, oriented, not in distress. HEENT: Head atraumatic, normocephalic. Conjunctivae nonerythematous. Sclerae white. Opaque cornea in both eyes. Mouth, no thrush or edema noted. Ears/Nose, no mass, lesion, discharge noted. Neck: Supple. No JVD, lymph nodes, bruit, thyromegaly noted. Lungs: Bilateral good equal air entry. Clear to auscultation. No rhonchi. No rales. Heart: Normal heart sounds, no murmur or gallop. Abdomen: Soft, bowel sounds normal. No guarding, rigidity, tenderness, mass, hepatosplenomegaly, distention, or bruit noted. Extremities: No leg edema. No calf tenderness. Skin: No rash, ulcer, cellulitis. Lymphatics: No lymph node enlargement in neck, supraclavicular, infraclavicular region. Neuro: No focal neurological deficit. Chest: Unremarkable. External Genitalia: Deferred. Rectal: Deferred. Laboratory Data: Yesterday, white count 3.7, hemoglobin 10.4, platelets 100. This morning, white count 2.2, hemoglobin 9.9, platelets 89. At midnight, sodium 134, potassium 6.2, chloride 97, bicarb 27, BUN 62, creatinine 16.30, glucose 47. This morning, sodium 136, potassium 5.8, chloride 96, bicarb 29, BUN 68, creatinine 16.3. Troponin 0.50 and 0.48. Chest x-ray findings indicating congestive heart failure and the patient's COVID-19 test came back positive today. Impression: 1. Hyperkalemia. 2. End-stage renal disease, on hemodialysis. 3. Anemia due to chronic kidney disease. 4. Pancytopenia. 5. COVID-19. 6. Hypertension. 7. Chronic systolic congestive heart failure. 8. Diabetes mellitus with chronic kidney disease. 9. Diabetes mellitus with peripheral neuropathy. Plan: Admit the patient to hospital for further evaluation and management of this problem. The patient is appropriate for inpatient and is expected to spend 2 midnights in hospital. We will consult edge inker heels for her dialysis support. Consult animal science professor, Dr. Jurado. When I saw her this morning, she was in isolation room, not in any respiratory distress, and at this point, we will continue to monitor her closely. The patient will have dialysis today and we will see her tomorrow for followup. Home medications will be continued per order. VINCENT/MODL Voice ID: [id number] MTDD
[2019-10-04 06:18] LABS: Absolute Lymphocytes (CBC) 0.5 K/uL (0.7-4.9); Basophils % 0.5 % (0-1.3); Hematocrit 36.3 % (36.0-45.0); Lymphocytes % 11.6 % (15.3-44.8); MPV 9.6 fL (7.6-11.3); RBC Red Blood Cell Count 4.01 M/uL (3.86-4.86)
[2019-10-04 06:52] LABS: Albumin 2.9 g/dL (3.4-5.0); Bilirubin Total 0.3 mg/dL (0.2-1.0); Potassium 4.7 mmol/L (3.5-5.1); Protein, Total 9.5 g/dL (6.4-8.2); Uric Acid 3.3 mg/dL (2.6-6.0)
[2019-10-04] MEDS: INSULIN -REGULAR HUMAN 50 UNIT/0.5 ML ML SQ SCH ×4 (07:30→20:11)
[2019-10-04] MEDS: ASCORBIC ACID 500 MG TABLET PO SCH ×2 (08:59→20:10)
[2019-10-04] MEDS: HYDRALAZINE HCL 10 MG TABLET PO SCH ×3 (09:00→21:00)
[2019-10-04] MEDS: GABAPENTIN 100 MG CAP PO SCH ×2 (09:00→20:10)
[2019-10-04] MEDS: NEO/POLY/DEX OPTH 3.5 GM TUBE EACH EYE SCH ×2 (09:01→20:24)
[2019-10-04] MEDS: PREDNISOLONE 1% OPTH SOLN 5ML OPTH SCH ×4 (09:01→20:25)
[2019-10-04] MEDS: NIFEDIPINE XL 60 MG TABLET PO SCH ×2 (09:02→20:10)
--- NOTE | 2019-10-04 09:04 | ECHO ---
HEIGHT: 5 ft 8 in WEIGHT: 170 lb 0 oz DATE OF STUDY: 10/03/[address]: Yovany Dewey MD 2-DIMENSIONAL: YES M.MODE: YES DOPPLER: YES COLOR FLOW: YES TDS: NO PORTABLE: NO DEFINITY: NO BUBBLE STUDY: NO DIAGNOSIS: CONGESTIVE HEART FAILURE CARDIAC HISTORY: CATHERIZATION: SURGERY: PROSTHETIC VALVE: PACEMAKER: MEASUREMENTS (cm) DIASTOLIC (NORMALS) SYSTOLIC (NORMALS) IVSd 1.0 (0.6-1.2) LA Diam 4.3 (1.9-4.0) LVEF 45-50% LVIDd 5.2 (3.5-5.7) LVIDs 4.3 (2.0-3.5) %FS 18% LVPWd 1.2 (0.6-1.2) Ao Diam 2.7 (2.0-3.7) 2 DIMENSIONAL ASSESSMENT: RIGHT ATRIUM: NORMAL LEFT ATRIUM: ENLARGED RIGHT VENTRICLE: NORMAL LEFT VENTRICLE: TRICUSPID VALVE: MILD TR MITRAL VALVE: MILD MR PULMONIC VALVE: NORMAL AORTIC VALVE: NORMAL PERICARDIAL EFFUSION: NONE AORTIC ROOT: NORMAL LEFT VENTRICULAR WALL MOTION: MILDLY DEPRESSED LEFT VENTRICULAR EJECTION FRACTION, WITH GLOBAL MILD HYPOKINESIS. DOPPLER/COLOR FLOW: MILD MITRAL AND TRICUSPID REGURGITATION. COMMENTS: MILDLY DEPRESSED LEFT VENTRICULAR EJECTION FRACTION 45-50%. MILD DIASTOLIC DYSFUNCTION. MILD TRICUSPID REGURGITATION, MILD MITRAL REGURGITATION. LEFT ATRIAL ENLARGEMENT. TECHNOLOGIST: TANNER CASTRO
[2019-10-04] MEDS: FUROSEMIDE 20 MG/ 2ML VIAL IV SCH ×2 (09:37→16:44)
[2019-10-04] MEDS: SOD POLYSTYREN SUL 15 GM/60 ML UCUP PO SCH (10:21)
--- NOTE | 2019-10-04 11:39 | P.CNS ---
Date of Consult: 10/04/19 Primary Care Provider: Dr. Schofield Chief Complaint: Shortness of breath cough positive for Crohn or virus History of Present Illness: Patient is 49 years of age multiple medical problems including end-stage renal disease with the ER with electrolyte abnormalities was found to have lal virus positive respiratory distress undergoing dialysis is a nasal cannula oxygen little tachypneic Allergies tramadol Allergy (Mild, Verified 10/02/19 23:02) Anaphylaxis Home Medications: Gabapentin [Neurontin*] 2 cap PO BID 03/09/17 Nifedipine [Nifedipine ER] 90 mg PO BID 08/22/17 Hydralazine [Apresoline*] 10 mg PO BID 11/14/17 Prednisolone Acetate 1 gtt OPTH QID 11/14/17 Ronald/Poly/Dexa [Maxitrol Opth Oint*] 1 appl OPTH BID 10/03/19 - Past Medical/Surgical History Diabetic: Yes -: HTN -: DM-2 -: Dyslipidemia -: anemia -: esrd -: Hep C -: CHF -: hysterectomy -: x2 -: king martínez (2016) - Family History Mother Medical History: Hypertension Father Medical History: Heart disease, Hypertension, Diabetes - Social History Smoking Status: Never smoker Alcohol use: No CD- Drugs: No Caffeine use: No Place of Residence: Home Review of Systems Respiratory: Shortness of Breath Physical Examination Temp Pulse Resp BP Pulse Ox 101.1 F H 90 24 H 140/76 100 10/04/19 08:00 10/04/19 09:37 10/04/19 08:00 10/04/19 09:37 10/04/19 08:00 General: Other (Deferred) - Problems (1) Coronavirus infection Current Visit: Yes Status: Acute Plan: Patient is 49 years of age admitted with lal virus infection he has end-stage renal disease undergoing dialysis currently on nasal cannula oxygen patient is running a fever final signs are stable
--- NOTE | 2019-10-04 11:42 | PN ---
Date of Progress Note: 10/04/2019 VINCENT/MODL Voice ID: [id number] Report ID: [id number] [id number]
--- NOTE | 2019-10-04 11:48 | PN ---
Date of Progress Note: 10/04/2019 Subjective: The patient was seen this morning for followup. No new complaints or problems reported by the patient. She was evaluated this morning via tele visit and this was n audio and video visit. The patient reported she was feeling better. She still has weakness, but overall feels better. She was communicating very well, answering all the questions appropriately and sitting in the bed when I was talking to her this morning. She is still requiring oxygen supplement. Without oxygen use, her oxygen level drops down between 86 to 90% range and with oxygenation, she is able to maintain adequate oxygenation. She did have dialysis yesterday. The patient is aware of her COVID-19 result being positive and I informed her that yesterday I had asked office staff to call her parents as her parents lives with her and her 2 boys lives with her. So, I have instructed her that all the family member should get checked out for this COVID-19. Since I take care of her parents, the patient was advised that she should have her parents contact my office on Monday so we can make arrangements for the test and meanwhile if they end up having any problems like shortness of breath, then they need to come to emergency room. The patient was told that we were not able to contact her parents yesterday when we tried multiple times, but she will communicate with her parents. Meanwhile, we will follow up with chief librarian branch and casting and curing operator. Laboratory Data: Her labs done today; white count 4.3, hemoglobin 12, platelets 127. Sodium 138, potassium 4.7, chloride 102, bicarb 24, BUN 30, creatinine 9.59, glucose 84. Objective: Vital Signs: Reviewed. Impression: 1. End-stage renal disease, on hemodialysis. 2. Hyperkalemia secondary to above, resolved. 3. Hypertension. 4. Anemia due to chronic kidney disease. 5. COVID-19. VINCENT/MODL Voice ID: [id number] Report ID: [id number] JERRY
--- NOTE | 2019-10-04 15:28 | EKG ---
Test Date: 2019-10-03 Test Time: 02:05:02 Load Dispatcher Local: MEASUREMENT RESULTS: Intervals: Rate: 93 UT: 134 QRSD: 110 QT: 394 QTc: 489 [place]: P: 98 UT: 134 QRS: 7 T: 15 INTERPRETIVE STATEMENTS: Undetermined rhythm Anteroseptal infarct, age undetermined Abnormal ECG Compared to ECG 10/02/2019 19:43:46 Sinus rhythm no longer present Myocardial infarct finding still present Electronically Signed On 10-04-19 15:24:31 CDT by Yovany Dewey
--- NOTE | 2019-10-04 15:28 | EKG ---
Test Date: 2019-10-02 Test Time: 19:43:46 Industrial Sales Engineer: RR MEASUREMENT RESULTS: Intervals: Rate: 97 ND: 116 QRSD: 102 QT: 366 QTc: 464 [place]: P: 61 ND: 116 QRS: -16 T: 12 INTERPRETIVE STATEMENTS: Normal sinus rhythm Possible Anterior infarct, age undetermined Abnormal ECG Compared to ECG 11/15/2017 07:21:48 Myocardial infarct finding now present Short ND interval no longer present T-wave abnormality no longer present Prolonged QT interval no longer present Electronically Signed On 10-04-19 15:24:32 CDT by Yovany Dewey
--- NOTE | 2019-10-04 22:08 | P.PN ---
Date of Service: 10/04/19 Vital Signs Temp Pulse Resp BP Pulse Ox 98.0 F 88 16 144/88 H 93 10/04/19 20:00 10/04/19 20:10 10/04/19 20:00 10/04/19 20:10 10/04/19 20:00 Medications Acetaminophen (Tylenol -Tablet) 650 mg PO Q6H PRN PRN Reason: TEMP > 100' F Stop: 11/01/19 23:07 Last Admin: 10/04/19 06:10 Dose: 650 mg Documented by: Ascorbic Acid (Vitamin C) 500 mg PO Q12H [facility] Stop: 11/02/19 21:31 Last Admin: 10/04/19 20:10 Dose: 500 mg Documented by: Dexamethasone (Decadron) 2 mg IV Q8HR [facility] Stop: 11/02/19 09:01 Last Admin: 10/04/19 16:44 Dose: 2 mg Documented by: Dextrose (Dextrose 50% Syringe/Vial) 12.5 gm IV PRN PRN; Protocol PRN Reason: HYPOGLYCEMIA Stop: 11/02/19 07:43 Furosemide (Lasix) 60 mg IV BIDL [facility] Stop: 11/02/19 09:01 Last Admin: 10/04/19 16:44 Dose: 60 mg Documented by: Gabapentin (Neurontin) 200 mg PO BID [facility] Stop: 11/02/19 11:01 Last Admin: 10/04/19 20:10 Dose: 200 mg Documented by: Glucagon (Glucagen) 1 mg IM 1X PRN; Protocol PRN Reason: HYPOGLYCEMIA Stop: 11/02/19 07:43 Heparin Sodium (Porcine) (Heparin 1,000 Units/Ml) 6,000 unit IV EVERY HD PRN PRN Reason: AFTER EACH Stop: 11/02/19 10:11 Hydralazine HCl (Apresoline) 10 mg PO BID [facility] Stop: 11/02/19 11:01 Last Admin: 10/04/19 20:10 Dose: 10 mg Documented by: Albumin Human (Albumin 25%) 50 mls @ 100 mls/hr IV EVERY HD [facility] Stop: 11/02/19 11:01 Insulin Human Regular (Novolin -R) 0 unit SQ ACHS [facility]; Protocol Stop: 11/02/19 08:01 Last Admin: 10/04/19 20:11 Dose: Not Given Documented by: Mannitol (Mannitol 12.5 Gm/50 Ml Vial) 12.5 gm IV EVERY HD PRN PRN Reason: Titrate to SBP (MUST DEFINE) Stop: 11/02/19 10:11 Neomycin/Polymyxin/Dexamethasone (Maxitrol Opth Oint) 1 appl EACH EYE BID [facility] Stop: 11/02/19 21:01 Last Admin: 10/04/19 20:24 Dose: 1 appl Documented by: Nifedipine (Procardia Xl) 60 mg PO BID [facility] Stop: 11/02/19 09:01 Last Admin: 10/04/19 20:10 Dose: 60 mg Documented by: Ondansetron HCl (Zofran) 4 mg IV Q6H PRN PRN Reason: NAUSEA / VOMITING Stop: 11/01/19 22:59 Prednisolone Acetate (Pred Forte 1% Ophth Susp) 1 drops OPTH QID [facility] Stop: 11/02/19 13:01 Last Admin: 10/04/19 20:25 Dose: 1 drop Documented by: Sodium Chloride (Normal Saline Flush) 10 ml IV BID [facility] Stop: 11/02/19 09:01 Last Admin: 10/04/19 20:11 Dose: 10 ml Documented by: Microbiology Results 10/02/19 19:14 Throat Culture & Sensitivity - Preliminary NORMAL UPPER RESPIRATORY POPEYE GROWN. 10/02/19 20:00 Blood - Blood Aerobic Blood Culture - Preliminary No growth in 24 hours. 10/02/19 20:00 Blood - Blood Anaerobic Blood Culture - Preliminary No growth in 24 hours. 10/02/19 20:15 Blood - Blood Aerobic Blood Culture - Preliminary No growth in 24 hours. 10/02/19 20:15 Blood - Blood Anaerobic Blood Culture - Preliminary No growth in 24 hours. 10/02/19 19:28 Nasopharnyx Coronavirus COVID-19 PCR - Final 10/02/19 19:14 Throat Group A Streptococcus Rapid Screen - Final 10/02/19 19:14 Nasopharnyx Influenza Type A Antigen Screen - Final 10/02/19 19:14 Nasopharnyx Influenza Type B Antigen Screen - Final Assessment/ Plan: Nephrology Feeling better today. Concerned about her dialysis. No acute events overnight. Vitals, medications, blood work and imaging reviewed in the chart. General: In no apparent distress, Oriented x3, Cooperative HEENT: Mucous membr. moist/pink Neck: Supple, JVD distended Respiratory: Diminished Cardiovascular: Regular rate/rhythm, Edema Gastrointestinal: Soft and benign, Non-distended Musculoskeletal: No clubbing, No contractures Integumentary: No rashes, No cyanosis Neurological: Normal speech Laboratory Data (last 24 hrs) 10/02/19 20:50: Sodium 133 L, Potassium 6.4 H*, BUN 62 H, Creatinine 15.80 H*, Glucose 105, Total Bilirubin 0.3, AST 34, ALT 14, Alkaline Phosphatase 46, Amylase 129 H, Lipase 512 H Imagings Data: EXAM DESCRIPTION: RAD - Chest Single View - 10/03/2019 6:35 am CLINICAL HISTORY: Chest Pain Chest pain. COMPARISON: Chest Single View dated 10/02/2019; Chest Single View dated 11/15; Chest Single View dated 11/14/2017; Chest Single View dated 08/21/2017 FINDINGS: Portable technique limits examination quality. Bilateral pulmonary opacities and pleural effusions are again seen, appearing unchanged when considering mild patient rotation on today's image. The heart is moderately enlarged in size. Right-sided venous catheter is unchanged. Conclusions/Impression: A/ ESRD on HD. Hyponatremia. Hyperkalemia. Diastolic CHF, A/C. HTN with CKD/ CHF. DM II with CKD and Polyneuropathy. Anemia in CKD. CARMELITA/ Secondary HyperPTH. COVID19 PNA P/ Continue current POC and Medications. Next HD Monday. Continue abx. COVID19 protocol. No NSAIDs. AM Labs. Daily weight.
[2019-10-05] MEDS: dexAMETHasone 4 MG/ML VIAL IV SCH ×2 (00:08→09:00)
[2019-10-05] MEDS: INSULIN -REGULAR HUMAN 50 UNIT/0.5 ML ML SQ SCH ×4 (07:30→20:12)
[2019-10-05] MEDS: NIFEDIPINE XL 60 MG TABLET PO SCH ×2 (08:44→21:00)
[2019-10-05] MEDS: ASCORBIC ACID 500 MG TABLET PO SCH ×2 (08:44→20:16)
[2019-10-05] MEDS: GABAPENTIN 100 MG CAP PO SCH ×2 (08:44→20:16)
[2019-10-05] MEDS: HYDRALAZINE HCL 10 MG TABLET PO SCH ×3 (08:45→20:17)
[2019-10-05] MEDS: NEO/POLY/DEX OPTH 3.5 GM TUBE EACH EYE SCH ×2 (08:45→21:09)
[2019-10-05] MEDS: PREDNISOLONE 1% OPTH SOLN 5ML OPTH SCH ×4 (08:46→21:09)
[2019-10-05] MEDS: FUROSEMIDE 20 MG/ 2ML VIAL IV SCH (09:00)
[2019-10-05] MEDS ORDERED: AZITHROMYCIN IV 500 MG in NA CHLORIDE 0.9% 250 ML IVPB SCH (09:00)
--- NOTE | 2019-10-05 09:40 | P.PN ---
Date of Service: 10/05/19 Vital Signs Temp Pulse Resp BP Pulse Ox 99.8 F 80 23 H 140/79 92 10/05/19 08:00 10/05/19 08:44 10/05/19 08:00 10/05/19 08:44 10/05/19 08:00 Medications Acetaminophen (Tylenol -Tablet) 650 mg PO Q6H PRN PRN Reason: TEMP > 100' F Stop: 11/01/19 23:07 Last Admin: 10/04/19 06:10 Dose: 650 mg Documented by: Ascorbic Acid (Vitamin C) 500 mg PO Q12H [facility] Stop: 11/02/19 21:31 Last Admin: 10/05/19 08:44 Dose: 500 mg Documented by: Dexamethasone (Decadron) 2 mg IV Q8HR [facility] Stop: 11/02/19 09:01 Last Admin: 10/05/19 09:00 Dose: Not Given Documented by: Dextrose (Dextrose 50% Syringe/Vial) 12.5 gm IV PRN PRN; Protocol PRN Reason: HYPOGLYCEMIA Stop: 11/02/19 07:43 Furosemide (Lasix) 60 mg IV BIDL [facility] Stop: 11/02/19 09:01 Last Admin: 10/05/19 09:00 Dose: Not Given Documented by: Gabapentin (Neurontin) 200 mg PO BID [facility] Stop: 11/02/19 11:01 Last Admin: 10/05/19 08:44 Dose: 200 mg Documented by: Glucagon (Glucagen) 1 mg IM 1X PRN; Protocol PRN Reason: HYPOGLYCEMIA Stop: 11/02/19 07:43 Heparin Sodium (Porcine) (Heparin 1,000 Units/Ml) 6,000 unit IV EVERY HD PRN PRN Reason: AFTER EACH Stop: 11/02/19 10:11 Hydralazine HCl (Apresoline) 10 mg PO BID [facility] Stop: 11/02/19 11:01 Last Admin: 10/05/19 08:57 Dose: Not Given Documented by: Albumin Human (Albumin 25%) 50 mls @ 100 mls/hr IV EVERY HD [facility] Stop: 11/02/19 11:01 Insulin Human Regular (Novolin -R) 0 unit SQ ACHS [facility]; Protocol Stop: 11/02/19 08:01 Last Admin: 10/05/19 07:30 Dose: Not Given Documented by: Mannitol (Mannitol 12.5 Gm/50 Ml Vial) 12.5 gm IV EVERY HD PRN PRN Reason: Titrate to SBP (MUST DEFINE) Stop: 11/02/19 10:11 Neomycin/Polymyxin/Dexamethasone (Maxitrol Opth Oint) 1 appl EACH EYE BID [facility] Stop: 11/02/19 21:01 Last Admin: 10/05/19 08:45 Dose: 1 appl Documented by: Nifedipine (Procardia Xl) 60 mg PO BID [facility] Stop: 11/02/19 09:01 Last Admin: 10/05/19 08:44 Dose: 60 mg Documented by: Ondansetron HCl (Zofran) 4 mg IV Q6H PRN PRN Reason: NAUSEA / VOMITING Stop: 11/01/19 22:59 Prednisolone Acetate (Pred Forte 1% Ophth Susp) 1 drops OPTH QID [facility] Stop: 11/02/19 13:01 Last Admin: 10/05/19 08:46 Dose: 1 drop Documented by: Sodium Chloride (Normal Saline Flush) 10 ml IV BID [facility] Stop: 11/02/19 09:01 Last Admin: 10/05/19 08:47 Dose: 10 ml Documented by: Microbiology Results 10/02/19 19:14 Throat Culture & Sensitivity - Final NORMAL UPPER RESPIRATORY POPEYE GROWN. 10/02/19 20:00 Blood - Blood Aerobic Blood Culture - Preliminary No growth in 24 hours. 10/02/19 20:00 Blood - Blood Anaerobic Blood Culture - Preliminary No growth in 24 hours. 10/02/19 20:15 Blood - Blood Aerobic Blood Culture - Preliminary No growth in 24 hours. 10/02/19 20:15 Blood - Blood Anaerobic Blood Culture - Preliminary No growth in 24 hours. 10/02/19 19:28 Nasopharnyx Coronavirus COVID-19 PCR - Final 10/02/19 19:14 Throat Group A Streptococcus Rapid Screen - Final 10/02/19 19:14 Nasopharnyx Influenza Type A Antigen Screen - Final 10/02/19 19:14 Nasopharnyx Influenza Type B Antigen Screen - Final Assessment/ Plan: Nephrology Feeling better today with improved breathing. CPS improved without CP. No acute events overnight. Vitals, medications, blood work and imaging reviewed in the chart. General: In no apparent distress, Oriented x3, Cooperative HEENT: Mucous membr. moist/pink Neck: Supple, JVD distended Respiratory: Diminished Cardiovascular: Regular rate/rhythm, Edema Gastrointestinal: Soft and benign, Non-distended Musculoskeletal: No clubbing, No contractures Integumentary: No rashes, No cyanosis Neurological: Normal speech Laboratory Data (last 24 hrs) 10/02/19 20:50: Sodium 133 L, Potassium 6.4 H*, BUN 62 H, Creatinine 15.80 H*, Glucose 105, Total Bilirubin 0.3, AST 34, ALT 14, Alkaline Phosphatase 46, Amylase 129 H, Lipase 512 H Imagings Data: EXAM DESCRIPTION: RAD - Chest Single View - 10/03/2019 6:35 am CLINICAL HISTORY: Chest Pain Chest pain. COMPARISON: Chest Single View dated 10/02/2019; Chest Single View dated 11/15/2017; Chest Single View dated 11/14/2017; Chest Single View dated 08/21/2017 FINDINGS: Portable technique limits examination quality. Bilateral pulmonary opacities and pleural effusions are again seen, appearing unchanged when considering mild patient rotation on today's image. The heart is moderately enlarged in size. Right-sided venous catheter is unchanged. Conclusions/Impression: A/ ESRD on HD. Hyponatremia. Hyperkalemia. Diastolic CHF, A/C. HTN with CKD/ CHF. DM II with CKD and Polyneuropathy. Anemia in CKD. CARMELITA/ Secondary HyperPTH. COVID19 PNA P/ Continue current POC and Medications. Acute HD today. Dialysis nurse notified. Continue abx. COVID19 protocol. Oxygen support. No NSAIDs. AM Labs. Daily weight.
--- NOTE | 2019-10-05 10:40 | P.PN ---
Subjective Date of Service: 10/05/19 (Telephone Visit) Primary Care Provider: Dr. Schofield Chief Complaint: SOB Subjective: Improving (Doign well. NCNo fever) Physical Examination - Vital Signs Temperature: 99.8 F Blood Pressure: 140/79 Pulse: 80 Respirations: 23 Pulse Ox (%): 92 - Studies Microbiology Data (last 24 hrs): 10/02/19 19:14 Throat Culture & Sensitivity - Final NORMAL UPPER RESPIRATORY POPEYE GROWN. Assessment & Plan - Problems (Diagnosis) (1) Coronavirus infection Current Visit: Yes Status: Acute Plan: Doign better. Poss discharge on pred. Check pt qualifies for home O2. No IV access, Change ot PO pred NE of sepsis. D/C homeon pred,MVI
--- NOTE | 2019-10-05 10:58 | PN ---
Date of Progress Note: 10/05/2019 Subjective: The patient was seen this morning for followup. No new complaints or problems reported. The patient was seen with help of TeleVisit this morning. She reported that she is feeling overall better compared to yesterday. Her breathing is better. She is on oxygen 4 L/minute per nasal cannu la and when I evaluated her as nurse reported her oxygen saturation was 95%-96%. So, nurse was advis ed to lower oxygen level down to 3 L/minute and she was also advised to communicate with respiratory therapist to see if we can continue to work on weaning off the oxygen if possible. Her appetite is i mproved. She did have dialysis yesterday. She denies any vomiting, diarrhea. Denies any body ache. No chest pain. No shortness of breath reported when I saw her. Overall, she feels better. Objective: Vital Signs: Reviewed. Impression: 1.End-stage renal disease, on hemodialysis. 2.Hyperkalemia secondary to above, resolved. 3.Hypertension. 4.Anemia due to chronic kidney disease. 5.COVID-19. Plan: We will continue current medication. The patient does not have IV access. She has very poor peripheral IV access and we do not have any nurse available for midline placement. We will change he r IV medication to oral medications as sales marketing does not want us to use dialysis access catheter because of the risk of infection, which we understand that. We will continue to follow up with pulmo nologist, Dr. Jurado. VINCENT/MODL Voice ID: [id number] Report ID: [id number]
[2019-10-05] MEDS: predniSONE 20 MG TAB PO SCH ×2 (11:13→20:16)
[2019-10-05] MEDS: FUROSEMIDE 40 MG TABLET PO SCH (16:23)
[2019-10-05] MEDS ORDERED: ACETYLCYST 6,000 MG/30 ML VIAL ONE (19:58)
[2019-10-06] MEDS: INSULIN -REGULAR HUMAN 50 UNIT/0.5 ML ML SQ SCH ×4 (07:30→20:44)
[2019-10-06] MEDS: FUROSEMIDE 40 MG TABLET PO SCH ×2 (09:05→16:10)
[2019-10-06] MEDS: HYDRALAZINE HCL 10 MG TABLET PO SCH ×2 (09:05→20:28)
[2019-10-06] MEDS: ASCORBIC ACID 500 MG TABLET PO SCH ×2 (09:05→20:28)
[2019-10-06] MEDS: GABAPENTIN 100 MG CAP PO SCH ×2 (09:05→20:26)
[2019-10-06] MEDS: predniSONE 20 MG TAB PO SCH ×2 (09:05→20:26)
[2019-10-06] MEDS: NIFEDIPINE XL 60 MG TABLET PO SCH ×2 (09:05→20:27)
[2019-10-06] MEDS: NEO/POLY/DEX OPTH 3.5 GM TUBE EACH EYE SCH ×2 (09:06→20:28)
[2019-10-06] MEDS: PREDNISOLONE 1% OPTH SOLN 5ML OPTH SCH ×4 (09:06→20:28)
--- NOTE | 2019-10-06 10:16 | RAD REPORT ---
EXAM DESCRIPTION: Joe Single View10/06/2019 9:40 am CLINICAL HISTORY: Shortness breath COMPARISON: October 02 all FINDINGS: Mild improvement in bilateral pulmonary opacities Pleural effusions persist. Heart remains enlarged. A central venous catheter remains in place
--- NOTE | 2019-10-06 14:10 | PN ---
Date of Progress Note: 10/06/2019 Subjective: The patient was seen this morning for followup. No new complaints or problems reported by the patient. She was evaluated via tele visit today. Overall, she reports that she is feeling be tter. Denies any shortness of breath. She was still on oxygen at 3 L/minute when I talked to her th morning. Her oxygen yesterday was reduced from 4 L to 3 L/minute and nurse was instructed to try to wean her off, but as per my discussion with nurse today, no further attempts were made by nursing staff to wean her off yesterday. So, this morning nursing staff and respiratory therapist have start ed to wean her off and she was later on 1 L oxygen via nasal cannula and was maintaining adequate oxy genation. She is denying any other complaints. Had dialysis session this morning. Vital signs revi ewed. Impression: 1.COVID-19. 2.End-stage renal disease, on hemodialysis. 3.Bilateral pleural effusions secondary to end-stage renal disease. 4.Hypertension. Plan: We will go ahead and get a chest x-ray done on her today and depending on her oxygenation and chest x-ray result, we will decide if she possibly can be discharged to go home either later today or tomorrow. Details were discussed with her. VINCENT/MODL Voice ID: [id number] Report ID: [id number]
[2019-10-07] MEDS: INSULIN -REGULAR HUMAN 50 UNIT/0.5 ML ML SQ SCH ×4 (07:30→19:40)
[2019-10-07] MEDS: ASCORBIC ACID 500 MG TABLET PO SCH ×2 (07:36→19:41)
[2019-10-07] MEDS: predniSONE 20 MG TAB PO SCH ×2 (07:36→19:40)
[2019-10-07] MEDS: NIFEDIPINE XL 60 MG TABLET PO SCH ×2 (07:37→19:41)
[2019-10-07] MEDS: HYDRALAZINE HCL 10 MG TABLET PO SCH ×3 (07:38→20:00)
[2019-10-07] MEDS: FUROSEMIDE 40 MG TABLET PO SCH ×2 (07:38→16:13)
[2019-10-07] MEDS: PREDNISOLONE 1% OPTH SOLN 5ML OPTH SCH ×4 (07:39→19:42)
[2019-10-07] MEDS: NEO/POLY/DEX OPTH 3.5 GM TUBE EACH EYE SCH ×2 (07:39→19:42)
[2019-10-07] MEDS: GABAPENTIN 100 MG CAP PO SCH ×2 (07:43→19:40)
--- NOTE | 2019-10-07 21:12 | P.PN ---
Date of Service: 10/07/19 Vital Signs Temp Pulse Resp BP Pulse Ox 97.2 F 73 18 134/75 95 10/07/19 20:00 10/07/19 20:00 10/07/19 20:00 10/07/19 20:00 10/07/19 20:00 Medications Acetaminophen (Tylenol -Tablet) 650 mg PO Q6H PRN PRN Reason: TEMP > 100' F Stop: 11/01/19 23:07 Last Admin: 10/04/19 06:10 Dose: 650 mg Documented by: Ascorbic Acid (Vitamin C) 500 mg PO Q12H [facility] Stop: 11/02/19 21:31 Last Admin: 10/07/19 19:41 Dose: 500 mg Documented by: Dextrose (Dextrose 50% Syringe/Vial) 12.5 gm IV PRN PRN; Protocol PRN Reason: HYPOGLYCEMIA Stop: 11/02/19 07:43 Furosemide (Lasix) 40 mg PO BIDL [facility] Stop: 11/04/19 17:01 Last Admin: 10/07/19 16:13 Dose: 40 mg Documented by: Gabapentin (Neurontin) 200 mg PO BID [facility] Stop: 11/02/19 11:01 Last Admin: 10/07/19 19:40 Dose: 200 mg Documented by: Glucagon (Glucagen) 1 mg IM 1X PRN; Protocol PRN Reason: HYPOGLYCEMIA Stop: 11/02/19 07:43 Heparin Sodium (Porcine) (Heparin 1,000 Units/Ml) 6,000 unit IV EVERY HD PRN PRN Reason: AFTER EACH Stop: 11/02/19 10:11 Hydralazine HCl (Apresoline) 10 mg PO BID [facility] Stop: 11/02/19 11:01 Last Admin: 10/07/19 20:00 Dose: Not Given Documented by: Albumin Human (Albumin 25%) 50 mls @ 100 mls/hr IV EVERY HD [facility] Stop: 11/02/19 11:01 Insulin Human Regular (Novolin -R) 0 unit SQ ACHS [facility]; Protocol Stop: 11/02/19 08:01 Last Admin: 10/07/19 19:40 Dose: 4 unit Documented by: Mannitol (Mannitol 12.5 Gm/50 Ml Vial) 12.5 gm IV EVERY HD PRN PRN Reason: Titrate to SBP (MUST DEFINE) Stop: 11/02/19 10:11 Neomycin/Polymyxin/Dexamethasone (Maxitrol Opth Oint) 1 appl EACH EYE BID [facility] Stop: 11/02/19 21:01 Last Admin: 10/07/19 19:42 Dose: 1 appl Documented by: Nifedipine (Procardia Xl) 60 mg PO BID [facility] Stop: 11/02/19 09:01 Last Admin: 10/07/19 19:41 Dose: 60 mg Documented by: Ondansetron HCl (Zofran) 4 mg IV Q6H PRN PRN Reason: NAUSEA / VOMITING Stop: 11/01/19 22:59 Prednisolone Acetate (Pred Forte 1% Ophth Susp) 1 drops OPTH QID [facility] Stop: 11/02/19 13:01 Last Admin: 10/07/19 19:42 Dose: 1 drop Documented by: Prednisone (Deltasone) 10 mg PO BID [facility] Stop: 11/04/19 10:39 Last Admin: 10/07/19 19:40 Dose: 10 mg Documented by: Sodium Chloride (Normal Saline Flush) 10 ml IV BID [facility] Stop: 11/02/19 09:01 Last Admin: 10/07/19 19:43 Dose: Not Given Documented by: Microbiology Results 10/02/19 20:15 Blood - Blood Aerobic Blood Culture - Final No growth in 5 days. 10/02/19 20:15 Blood - Blood Anaerobic Blood Culture - Final No growth in 5 days. 10/02/19 19:14 Throat Culture & Sensitivity - Final NORMAL UPPER RESPIRATORY POPEYE GROWN. 10/02/19 20:00 Blood - Blood Aerobic Blood Culture - Preliminary No growth in 24 hours. 10/02/19 20:00 Blood - Blood Anaerobic Blood Culture - Preliminary No growth in 24 hours. 10/02/19 19:28 Nasopharnyx Coronavirus COVID-19 PCR - Final 10/02/19 19:14 Throat Group A Streptococcus Rapid Screen - Final 10/02/19 19:14 Nasopharnyx Influenza Type A Antigen Screen - Final 10/02/19 19:14 Nasopharnyx Influenza Type B Antigen Screen - Final Assessment/ Plan: Nephrology Doing well. CPS improved without CP. No acute events overnight. Vitals, medications, blood work and imaging reviewed in the chart. General: In no apparent distress, Oriented x3, Cooperative HEENT: Mucous membr. moist/pink Neck: Supple, JVD distended Respiratory: Diminished Cardiovascular: Regular rate/rhythm, Edema Gastrointestinal: Soft and benign, Non-distended Musculoskeletal: No clubbing, No contractures Integumentary: No rashes, No cyanosis Neurological: Normal speech Laboratory Data (last 24 hrs) 10/02/19 20:50: Sodium 133 L, Potassium 6.4 H*, BUN 62 H, Creatinine 15.80 H*, Glucose 105, Total Bilirubin 0.3, AST 34, ALT 14, Alkaline Phosphatase 46, Amylase 129 H, Lipase 512 H Imagings Data: EXAM DESCRIPTION: RAD - Chest Single View - 10/03/2019 6:35 am CLINICAL HISTORY: Chest Pain Chest pain. COMPARISON: Chest Single View dated 10/02/2019; Chest Single View dated 11/15/2017; Chest Single View dated 11/14/2017; Chest Single View dated 08/21/2017 FINDINGS: Portable technique limits examination quality. Bilateral pulmonary opacities and pleural effusions are again seen, appearing unchanged when considering mild patient rotation on today's image. The heart is moderately enlarged in size. Right-sided venous catheter is unchanged. Conclusions/Impression: A/ ESRD on HD. Hyponatremia. Hyperkalemia. Diastolic CHF, A/C. HTN with CKD/ CHF. DM II with CKD and Polyneuropathy. Anemia in CKD. CARMELITA/ Secondary HyperPTH. COVID19 PNA P/ Continue current POC and Medications. Next HD Monday. Continue abx. COVID19 protocol. Oxygen support. No NSAIDs. AM Labs. Daily weight. COVID preparations for outpt dialysis in process.
--- NOTE | 2019-10-08 01:00 | PN ---
Date of Progress Note: 10/07/2019 Subjective: The patient was seen this morning for followup. She was evaluated via TeleVisit. Lying in bed, not in distress. Feels fine. Denies any complaints. Overall, her shortness of breath has been getting better on a day-to-day basis. No new complaints or problems reported. Objective: Vital Signs: Reviewed. There is no physical exam as the patient was evaluated by TeleVisit today. Her fingerstick blood sug ar readings reviewed. Impression: 1.COVID-19. 2.End-stage renal disease, on hemodialysis. 3.Hypertension. 4.Anemia due to chronic kidney disease. Plan: Dr. Jurado is working on getting oxygen arrangements for the patient to go home with. Once that is arranged, plan is to discharge her to go home and nursing staff was advised to contact me for discharge order once oxygen arrangements is completed. VINCENT/MODL Voice ID: [id number] Report ID: [id number]
[2019-10-08 06:02] LABS: Phosphorus 6.1 mg/dL (2.5-4.9); Potassium 5.5 mmol/L (3.5-5.1)
[2019-10-08] MEDS: INSULIN -REGULAR HUMAN 50 UNIT/0.5 ML ML SQ SCH ×4 (07:30→22:55)
[2019-10-08] MEDS: PREDNISOLONE 1% OPTH SOLN 5ML OPTH SCH ×4 (07:45→22:35)
[2019-10-08] MEDS: NEO/POLY/DEX OPTH 3.5 GM TUBE EACH EYE SCH ×2 (07:46→22:35)
[2019-10-08] MEDS: predniSONE 20 MG TAB PO SCH ×2 (07:46→22:33)
[2019-10-08] MEDS: NIFEDIPINE XL 60 MG TABLET PO SCH ×3 (07:48→23:32)
[2019-10-08] MEDS: HYDRALAZINE HCL 10 MG TABLET PO SCH ×2 (07:49→21:00)
[2019-10-08] MEDS: GABAPENTIN 100 MG CAP PO SCH ×2 (07:49→22:34)
[2019-10-08] MEDS: FUROSEMIDE 40 MG TABLET PO SCH ×3 (07:49→17:40)
[2019-10-08] MEDS: ASCORBIC ACID 500 MG TABLET PO SCH ×2 (07:52→22:33)
[2019-10-08 23:40] VITALS: O2SAT 98
--- NOTE | 2019-10-09 00:22 | PN ---
Date of Progress Note: 10/08/2019 Subjective: The patient was seen this morning for followup. She was evaluated via TeleVisit. Denie s any complaints. Feeling fine. No shortness of breath. She is on oxygen 1 L/minute nasal cannula. She has a good appetite. Denies any body aches. Objective: Vital Signs: Reviewed. Impression: 1.COVID-19. 2.End-stage renal disease, on hemodialysis. 3.Hypertension. Plan: Oxygen arrangements for the patient to use her oxygen at home has been completed. The patient is due to have dialysis today and our plan is to discharge her to go home after dialysis, but as I w as informed around 7 p.m. today that her dialysis will be started late this evening and it will not b e done until really late tonight, so it is not safe for her to go home that late in the evening time, at night time, so we will plan to discharge her tomorrow morning. VINCENT/MODL Voice ID: [id number] Report ID: [id number]
[2019-10-09 05:59] VITALS: BMI 24.3
[2019-10-09] MEDS: NIFEDIPINE XL 60 MG TABLET PO SCH (07:23)
[2019-10-09] MEDS: HYDRALAZINE HCL 10 MG TABLET PO SCH (07:23)
[2019-10-09] MEDS: GABAPENTIN 100 MG CAP PO SCH (07:23)
[2019-10-09] MEDS: predniSONE 20 MG TAB PO SCH (07:23)
[2019-10-09] MEDS: FUROSEMIDE 40 MG TABLET PO SCH (07:24)
[2019-10-09] MEDS: ASCORBIC ACID 500 MG TABLET PO SCH (07:24)
[2019-10-09] MEDS: INSULIN -REGULAR HUMAN 50 UNIT/0.5 ML ML SQ SCH (07:30)
[2019-10-09] MEDS: PREDNISOLONE 1% OPTH SOLN 5ML OPTH SCH (09:11)
[2019-10-09] MEDS: NEO/POLY/DEX OPTH 3.5 GM TUBE EACH EYE SCH (09:12)
[2019-10-09 10:35] VITALS: BP 149/86; TEMP 96.8
--- NOTE | 2019-10-09 20:05 | P.PN ---
Date of Service: 10/08/19 Vital Signs Temp Pulse Resp BP Pulse Ox 96.8 F 70 16 149/86 H 98 10/09/19 08:00 10/09/19 08:00 10/09/19 08:00 10/09/19 08:00 10/09/19 08:00 Microbiology Results 10/02/19 20:00 Blood - Blood Aerobic Blood Culture - Final No growth in 5 days. 10/02/19 20:00 Blood - Blood Anaerobic Blood Culture - Final No growth in 5 days. 10/02/19 20:15 Blood - Blood Aerobic Blood Culture - Final No growth in 5 days. 10/02/19 20:15 Blood - Blood Anaerobic Blood Culture - Final No growth in 5 days. 10/02/19 19:14 Throat Culture & Sensitivity - Final NORMAL UPPER RESPIRATORY POPEYE GROWN. 10/02/19 19:28 Nasopharnyx Coronavirus COVID-19 PCR - Final 10/02/19 19:14 Throat Group A Streptococcus Rapid Screen - Final 10/02/19 19:14 Nasopharnyx Influenza Type A Antigen Screen - Final 10/02/19 19:14 Nasopharnyx Influenza Type B Antigen Screen - Final Assessment/ Plan: Nephrology Doing well. CPS improved without CP. No acute events overnight. Vitals, medications, blood work and imaging reviewed in the chart. General: In no apparent distress, Oriented x3, Cooperative HEENT: Mucous membr. moist/pink Neck: Supple, JVD distended Respiratory: Diminished Cardiovascular: Regular rate/rhythm, Edema Gastrointestinal: Soft and benign, Non-distended Musculoskeletal: No clubbing, No contractures Integumentary: No rashes, No cyanosis Neurological: Normal speech Laboratory Data (last 24 hrs) 10/02/19 20:50: Sodium 133 L, Potassium 6.4 H*, BUN 62 H, Creatinine 15.80 H*, Glucose 105, Total Bilirubin 0.3, AST 34, ALT 14, Alkaline Phosphatase 46, Amylase 129 H, Lipase 512 H Imagings Data: EXAM DESCRIPTION: RAD - Chest Single View - 10/03/2019 6:35 am CLINICAL HISTORY: Chest Pain Chest pain. COMPARISON: Chest Single View dated 10/02/2019; Chest Single View dated 11/15/2017; Chest Single View dated 11/14/2017; Chest Single View dated 08/21/2017 FINDINGS: Portable technique limits examination quality. Bilateral pulmonary opacities and pleural effusions are again seen, appearing unchanged when considering mild patient rotation on today's image. The heart is moderately enlarged in size. Right-sided venous catheter is unchanged. Conclusions/Impression: A/ ESRD on HD. Hyponatremia. Hyperkalemia. Diastolic CHF, A/C. HTN with CKD/ CHF. DM II with CKD and Polyneuropathy. Anemia in CKD. CARMELITA/ Secondary HyperPTH. COVID19 PNA P/ Continue current POC and Medications. Acute HD ordered for today. Recommend dialysis prior to discharge today. Continue abx. COVID19 protocol. Oxygen support. No NSAIDs. AM Labs. Daily weight. COVID preparations for outpt dialysis in process. Telehealth visit.
--- NOTE | 2019-10-10 04:54 | DS ---
Date of Discharge: 10/09/2019 Disposition: This patient discharged to go home. Hospital Course: This is a 49-year-old female patient who was admitted to the hospital with shortness of breath complaints. Please see dictated H and P for more information. The patient was admitted to the hospital and COVID-19 test was done in the emergency room. Initially, she was on regular medical floor and her COVID-19 test came back positive, so she was moved to a negative pressure isolation room and that is where she stayed throughout this hospital stay. I visited her through tele visit this morning and she denied any complaints. She was feeling much better. She was on oxygen 1 L/minute nasal cannula. During this hospital stay, Dr. Jurado from Pulmonary was consulted and the patient's glass beveler was consulted as well. She received her dialysis and last dialysis was last night. Repeat chest x-ray done during this hospital stay showed improvement in bilateral lung field. Her initial white count when she came in was 3.7 with hemoglobin 10.4 and a platelet count of 100. Last CBC from 10/03; white count was 4.3, hemoglobin 12, platelets 127. Her last chemistry from 10/03; sodium 138, potassium 4.7, chloride 102, bicarb 24, BUN 30, creatinine 9.59. When she first came into hospital emergency room, her sodium level was 133, potassium 6.4, chloride 94, bicarb 25, BUN 62. The patient had missed her dialysis and that is why she came into emergency room with the shortness of breath. After she was admitted to the hospital, dialysis support was started by glass beveler. Dr. Jurado started her on prednisone and she did require oxygen support with nasal cannula oxygen, maintaining adequate level of oxygenation. Arrangements were made for her to use home oxygen and today, she was discharged to go home in stable condition this morning. Final Diagnoses: 1. Hyperkalemia. 2. End-stage renal disease, on hemodialysis. 3. Anemia due to chronic kidney disease. 4. Pancytopenia. 5. COVID-19. 6. Hypertension. 7. Chronic systolic congestive heart failure. 8. Diabetes mellitus with chronic kidney disease. 9. Diabetes mellitus with diabetic neuropathy. Discharge Medications And Instructions: 1. Continue all prior home medications. 2. Take prednisone 10 mg 1 tablet by mouth 2 times a day for 4 days, then 1 tablet by mouth daily for 4 days, then /2 tablet by mouth daily for 4 days, then stop. 3. Follow up with Dr. Jurado in 1 week. Follow up at my office in 2 to 3 weeks. 4. Go for dialysis as per your instruction from Dr. Nina. 5. The patient was advised to use her oxygen as prescribed all the time. VINCENT/MODL Voice ID: [id number] Report ID: [id number] MTDD
== END 2019-10-09 11:50 | disposition home or self-care (01) | DRG 177 ==
LOC: ER 18:59 → ERHOLD 22:34 → 4TH 10-03 05:06
PROVIDERS: ADMIT Internal Medicine; ATTEND Internal Medicine
PROC: 8E0ZXY6 Isolation (ICD-10-PCS; 2019-10-02)
PROC: 5A1D70Z Performance of Urinary Filtration, Intermittent, Less than 6 Hours Per Day (ICD-10-PCS; principal; 2019-10-03)
DX: U07.1 COVID-19 (principal); J12.89 Other viral pneumonia; N18.6 End stage renal disease; I50.33 Acute on chronic diastolic (congestive) heart failure; I13.2 Hypertensive heart and chronic kidney disease with heart failure and with stage 5 chronic kidney disease, or end stage renal disease; D61.818 Other pancytopenia; E87.1 Hypo-osmolality and hyponatremia; N25.81 Secondary hyperparathyroidism of renal origin; Z88.5 Allergy status to narcotic agent; Z90.710 Acquired absence of both cervix and uterus; Z95.5 Presence of coronary angioplasty implant and graft; Z99.2 Dependence on renal dialysis; Z91.15 Patient's noncompliance with renal dialysis; E11.22 Type 2 diabetes mellitus with diabetic chronic kidney disease; I25.10 Atherosclerotic heart disease of native coronary artery without angina pectoris; Z86.718 Personal history of other venous thrombosis and embolism; E87.5 Hyperkalemia; D63.1 Anemia in chronic kidney disease; E11.42 Type 2 diabetes mellitus with diabetic polyneuropathy; E78.5 Hyperlipidemia, unspecified; N25.0 Renal osteodystrophy; H54.61 Unqualified visual loss, right eye, normal vision left eye; F98.8 Other specified behavioral and emotional disorders with onset usually occurring in childhood and adolescence
CPT/HCPCS: 36415; 71045; 80048; 80053; 80076; 82150; 82550; 82553; 82947; 83605; 83690; 83880; 84100; 84145; 84484; 84550; 85025; 85610; 85730; 87040; 87070; 87081; 87804; 90935; 93005; 93306; 94760; 99285; J0456; J0610; J0696; J1100; J1644; J1940; J7030; J7050; J7512; Q5106; U0002

== ENCOUNTER 2020-02-22 08:16 | Inpatient (IN) | payer OTHER ==
--- OUTSIDE RECORDS SUMMARY | 2020-02-22 08:18 | XMS REPORT | Clinical Summary ---
:[address] [facility] Address [address] [place] [address] Care Team Providers Name Role Phone Gilbert [...] Encounters Date Type Specialty Care Team Description 12/19/2019 Documentation Transplant Mariela Trujillo RN 10/29/2019 Documentation Transplant Adrianna iRosbenny 10/29/2019 Documentation Transplant Adrianna Riosbenny 10/29/2019 Telephone Transplant Marie Laureano (Per Miss Brooke she wi ll keep the appt for to [facility] and per Miss Gail amos she wants to do her testing closer to her home and I expl ained to her that I w ill ask the coordinator to give her an ord er to give to her PCP to have testing do ne by her home. Per p atient she will work w ith her PCP to have her mammogram,pap s mear and colonoscopy scheduled,) 10/29/2019 Documentation Transplant Maicol Flynn 10/28/2019 Abstract Transplant Araceli Reid RN 10/14/2019 Documentation Transplant Alessia Rios 10/14/2019 Documentation Transplant Alessia Rios 10/03/2019 Lab Requisition Lab 10/02/2019 Telephone Transplant Marie Laureano (I called [...] and cons ults); Appointment (I explained to th e patient that I would email her [...] 09/20/2019 Hospital Encounter Radiology Darryl López No Show MD Eliezer 09/16/2019 Documentation Transplant Marie Laureano 09/02/2019 Telephone Transplant Marie Laureano Appointm ent (Miss Brooke is karol re of her appt dates and I have emailed e itinerary to e patient and fax ed to the hd unit) 08/01/2019 Abstract Alessia Sainz 07/24/2019 Office Visit Transplant Araceli Reid ESRD (end stage renal disease) (HCC) (Primary Dx); RN Type 2 diabetes mellitus with complication (HCC); Essential hyper tension; Chronic hepatit is C without hepatic coma (HCC); Ischemic cardio myopathy; History of DVT (deep vein thrombosis); Pre-transplant evaluation for chronic kidney disease 07/10/2019 Telephone Transplant Sara Shields Appointment ( Patient called to give updated Medicare ID. ID updated in [employer] . Patient also sc heduled for 07/23 renal txp education and c onsent class. Her info rmation for the class w as sent.) 07/05/2019 Abstract Transplant Alessia Rios 07/05/2019 Abstract Transplant Alessia Rios 06/18/2019 Documentation Transplant Araceli Reid RN after 02/21/2019 Social History Tobacco Use Types Packs/Day Years Used Date Never Smoker Smokeless Tobacco: Never Used Alcohol Use Drinks/Week oz/Week Comments No Sex Assigned at Date Recorded Not on file Last Filed Vital Signs Vital Sign Reading Time Taken Comments Blood Pressure - - Pulse - - Temperature - - Respiratory Rate - - Oxygen Saturation - - Inhaled Oxygen Concentration - - Weight 68 kg (150 lb) 07/05/2019 11:48 AM CDT Height 172.7 cm (5' 8") 07/05/2019 11:48 AM CDT Body Mass Index 22.81 07/05/2019 11:48 AM CDT Plan of Treatment Health Maintenance Due Date Last Done Comments PNEUMOCOCCAL VACCINE 0-64 YRS (1 of 1 - 1977 PPSV23) DIABETIC EYE EXAM 1981 DIABETIC FOOT EXAM 1981 URINE MICROALBUMIN 1981 CERVICAL CANCER SCREENING PAP ONLY (Age 1101/17/1991 21-65) MEDICARE ANNUAL WELLNESS (YEAR 2 or FIRST 10/12/2016 YEAR if no IPPE) HEMOGLOBIN A1C 08/24/2017 02/23/2017, 01/03/2017 INFLUENZA VACCINE (#1) 2019 LIPID PANEL 02/24/2020 02/23/2017, 01/06/2017 Implants Implanted Type Area Baling Press Operator Device Shelf Model / Identifier Expiration Serial / Date Lot Closure Sys Perclose Progl 6fr [id number] - [id number] Cardiovascul ar N/A: Groin BOWENS 12/10/2017 [id number] / Implanted: Qty: 1 on 06/06/2016 by Robinson Valentin MD at [facility] LAB:[facility] DEV / [id number] Promus Premier Stents-Coronary N/A: [place] 8 [id number] / Implanted: Qty: 1 on 06/06/2016 by Robinson Valentin MD at [facility] Coronary [employer] / [id number] Synergy Stent 2.5mm X 16mm [place] 08/2017 [id number] / Implanted: Qty: 1 on 06/03/2016 by Robinson Valentin MD at [facility] SCI[employer] / [id number] Perclose Proglide Closure Device BOWENS 12/10/2017 [id number] / Implanted: Qty: 1 on 06/03/2016 by Robinson Valentin MD at [facility] VASCULAR / DEVICE [id number] Procedures Procedure Name Priority Date/Time Associated Diagnosis Comme nts SARS-COV2/RT-PCR Routine 10/02/2019 7:28 PM Resu lts for this ([facility]) CDT procedure are in the results section. after 02/21/2019 Results SARS-CoV2/RT-PCR ([facility]) (10/02/2019 7:28 PM CDT) SARS-COV2/RT-PCR Positive (AA) Not Detected, [facility] Negative, See [facility] external report [facility] for linked test SARS-COV-2 [facility] PERFORMING LAB [facility] Specimen Other - Nasopharyngeal wall structure (b bianca structure) Narrative Performed At Results are for the detection of SARS-CoV-2 [facility] RNA. The SARS-CoV-2 RNA is generally detectable in nasopharyngeal swab specimens during the acute phase of infection. Positive results are indicative of active infection with SARS-CoV-2 and the patient is presumed to be contagious. Laboratory test results should always be considered in the clinical correlation with patient history and other epidemiological and diagnostic information that is necessary to determine patient infection status. Patient management decisions should follow current CDC guidelines. Positive results do not rule out bacterial infection or co-infection with other viruses. The agent detected may not be the definite cause of disease. The limit of detection for this assay is 800 copies/mL. This SARS CoV-2 test is a real-time RT-PCR test intended for the qualitative detection of nucleic acid from SARS-CoV-2 in a nasopharyngeal swab specimen collected from individuals suspected of COVID-19 by their healthcare provider. This test has not been Food and Drug Administration (FDA) cleared or approved. This is a modified version of an approved Emergency Use Authorization (EUA) and is in the process of review by the FDA. Once authorized by the FDA, the issued EUA will be effective until the declaration that circumstances exist justifying the authorization of the emergency use of in vitro diagnostic tests for detection and/or diagnosis of COVID-19 is terminated under Section 564(b)(2) of the Act or the EUA is revoked under Section 564(g) of the Act. Fact Sheet for Healthcare Providers: https://www.[employer]/sites/default/files/pr oduct/documents/Fact_Sheet_HC_Providers_Lyra_ SARS-CoV-2.pdf Fact Sheet for Healthcare Patients: https://www.[employer]/sites/default/files/pr oduct/documents/Fact_Sheet_Patients_Lyra_SARS -CoV-2.pdf Performing Laboratory: [address] [place] [address] Performing Organization Address City/State/Zipcode Phone Number [address] [address] CENTER after 02/21/2019 Insurance Payer Benefit Plan / Subscriber ID Effective Dates Phone Addre ss Type Group MEDICARE MEDICARE A B [id number] Effective for all Medicare dates MEDICAID MEDICAID [facility] [id number] 2017-Present Medicaid Advance Directives For more information, please contact: [phone] Code Status Date Activated Date Inactivated Comments [...]
--- OUTSIDE RECORDS SUMMARY | 2020-02-22 08:20 | XMS REPORT | Continuity of Care Document ---
:1970 Author Organization [employer] Information [facility] Care Team Providers Name Role Phone [employer] Information [facility] Unavailable Un available Problems Problem Status Onset Classification Date Comments Sourc e Date Reported PERFORATED Active 04/18/19 [facility] CORNEAL ULCER, 20 Medic al LEFT EYE Center NOSE BLEED Active 08/05/19 [facility] 16 [place] UNK Active 06/29/[address] 16 Discharge 06/17/19 06/20/2015 [facility] est Diagnosis: N&V 16 (nausea and vomiting) VOMITING/CHILLS Active 06/17/19 [place] 16 Discharge 08/30/19 09/01/2014 [place] Diagnosis: 15 Acute headache VOMITING Active 08/30/[address] 15 Diabetes Resolved Problem 04/21/2019 [facility] mellitus Medical (disorder) Center, TaviaM Marisela [facility], KAYLYN Squires,[facility] End stage renal Active Problem 04/21/2019 [facility] disease Medical (disorder) Center, Sara Squires [facility], KAYLYN Squires History of - Resolved Problem 04/21/2019 [place] as migraine Medical (context-depend Cent er, ent category) Amy baird,[facility], KAYLYN Squires,[facility] Heartburn Resolved Problem 04/21/2019 [facility] (finding) Medical [place], Sara Squires [facility], KAYLYN Squires Hypertensive Resolved Problem 04/21/2019 [place] disorder, Medical systemic Center, arterial Sara Squires (disorder) [facility] , KAYLYN Squires,[facility] Dyspnea Resolved Problem 04/21/2019 [facility] (finding) Medical [place], Sara Squires [facility], KAYLYN Squires Medications Medication Details Route Status Patient Ordering Order Source Instructions Provider Date Hydralazine 10 mg, Route: No Longer [place] IVP, Q20Min, Active 2019 Medical Dosing Weight Center 70.9, kg, PRN Elevated BP, Start date: 04/19/19 15:10:00 SALES REPRESENTATIVE CONSULTANT, Duration: 2 doses or times, Stop date: Limited # of times Labetalol 10 mg, Route: No Longer [place] as IVP, Q5Min, 2019 Medical Dosing Weight Center 70.9, kg, PRN Elevated BP, Start date: 04/19/19 15:10:00 SALES REPRESENTATIVE CONSULTANT, Duration: 5 doses or times, Stop date: Limited # of times Acetaminophen 1,000 mg, [place]active [place] Route: PO, 2019 Medical Drug form: Center TAB, ONCE, Dosing Weight 70.9, kg, PRN Pain Score 1-3, Start date: 04/19/19 15:10:00 SALES REPRESENTATIVE CONSULTANT Oxycodone 5 mg, Route: No Longer [place] Hydrochloride 5 MG PO, Drug form: 2019 Medical Oral Tablet TAB, Q4H, Center Dosing Weight 70.9, kg, PRN Pain Score 4-6, Start date: 04/19/19 15:10:00 SALES REPRESENTATIVE CONSULTANT, Duration: 30 day, Stop date: 05/19/19 15:09:00 CDT Hydromorphone 0.5 mg, Route: No Longer H [place] IVP, Q5Min, 2019 Medical Dosing Weight Center 70.9, kg, PRN Pain Score 7-10, Start date: 04/19/19 15:10:00 SALES REPRESENTATIVE CONSULTANT, Duration: 4 doses or times, Stop date: Limited # of times Flumazenil 0.2 mg, Route: No Longer [place] IVP, PRN, 2019 Medical Dosing Weight Center 70.9, kg, PRN Benzodiazepine Reversal, Initial dose, Start date: 04/19/19 15:10:00 SALES REPRESENTATIVE CONSULTANT, Duration: 30 day, Stop date: 05/19/19 16:09:00 CDT Naloxone 0.4 mg, Route: No Longer [place] as IVP, Q2MIN, 2019 Medical Dosing Weight Center 70.9, kg, PRN Narcotic Reversal, Start date: 04/19/19 15:10:00 SALES REPRESENTATIVE CONSULTANT, Duration: 8 doses or times, Stop date: Limited # of times Ondansetron 4 mg, Route: No Longer [place] IVP, ONCE, 2019 Medical Dosing Weight Center 70.9, kg, PRN Nausea & Vomiting, Start date: 04/19/19 15:10:00 SALES REPRESENTATIVE CONSULTANT ondansetron (ANES) Route: IV, Inactive [facility] Drug form: 2019 Medical INJ, ONCE, Center Stop date: 04/19/19 14:55:00 SALES REPRESENTATIVE CONSULTANT glycopyrrolate Route: IV, Inactive [place] (ANES) Drug form: 2019 Medical INJ, ONCE, Center Stop date: 04/19/19 14:55:00 SALES REPRESENTATIVE CONSULTANT neostigmine (ANES) Route: IV, Inactive [facility] Drug form: 2019 Medical INJ, ONCE, Center Stop date: 04/19/19 14:55:00 SALES REPRESENTATIVE CONSULTANT dexamethasone Route: IV, Inactive [place] as (ANES) Drug form: 2019 Medical INJ, ONCE, Center Stop date: 04/19/19 14:27:00 SALES REPRESENTATIVE CONSULTANT lidocaine (ANES) Route: IV, Inactive [facility] Drug form: 2019 Medical INJ, ONCE, Center Stop date: 04/19/19 14:22:00 SALES REPRESENTATIVE CONSULTANT propofol (ANES) Route: IV, Inactive [place] Drug form: 2019 Medical INJ, ONCE, Center Stop date: 04/19/19 14:22:00 SALES REPRESENTATIVE CONSULTANT rocuronium (ANES) Route: IV, Inactive [facility] Drug form: 2019 Medical INJ, ONCE, Center Stop date: 04/19/19 14:22:00 SALES REPRESENTATIVE CONSULTANT fentaNYL (ANES) Route: IV, Inactive [place] Drug form: 2019 Medical INJ, ONCE, Center Stop date: 04/19/19 14:22:00 SALES REPRESENTATIVE CONSULTANT ePHEDrine (ANES) Route: IV, Inactive [facility] Drug form: 2019 Medical INJ, ONCE, Center Stop date: 04/19/19 14:22:00 SALES REPRESENTATIVE CONSULTANT phenylephrine Route: IV, Inactive [place] as (ANES) Drug form: 2019 Medical INJ, ONCE, Center Stop date: 04/19/19 14:22:00 SALES REPRESENTATIVE CONSULTANT Sodium Chloride Route: IV, Inactive [place] 0.9% IV (ANES) 500 Total Volume: 2019 Medical mL 500, Start Center date: 04/19/19 13:17:00 SALES REPRESENTATIVE CONSULTANT, Stop date: 04/19/19 14:17:00 SALES REPRESENTATIVE CONSULTANT Home Medication Refill(s) 0 [place] [address] [place] [address] gabapentin PO, 0 Active [place] Refill(s) [address] [place] [address] Hydromorphone 0.3 mg, 0.3 No Longer mL, Route: Active 2015 [facility] IVP, Drug form: INJ, Q3H, Dosing Weight 86.364, kg, PRN Pain Score 4-6, Start date: 07/01/15 15:49:00 CDT, Duration: 30 day, Stop date: 07/31/15 15:48:00 CDT Promethazine 6.25 mg, Inactive Route: IVPB, 2015 [facility] ONCE, Dosing Weight 94.119, kg, PRN Nausea & Vomiting, Start date: 07/01/15 15:39:00 CDT Flumazenil Notes: (Same Inactive as: Romazicon) 2015 [facility] Glycopyrrolate Notes: (Same Inactive as: Robinul) 2015 [facility] Diphenhydramine Notes: (Same Inactive as: Benadryl) 2015 [facility] Dexamethasone Notes: Inactive Concentration: 2015 [facility] 4mg/ml Ondansetron 4 mg, Route: Inactive IVP, ONCE, 2015 [facility] Dosing Weight 94.119, kg, PRN Nausea & Vomiting, Start date: 07/01/15 15:39:00 CDT Naloxone Notes: Same as Inactive Narcan 2015 [facility] Metoprolol Notes: (Same Inactive as: Lopressor) 2015 [facility] Push over 2 minutes Hydralazine Notes: (Same Inactive as: 2015 [facility] Apresoline) Push over 5 minutes Meperidine Notes: (Same Inactive as: Demerol) 2015 [facility] "Use Precaution in Elderly, Seizure disorders, and Renal impairment&quo t; Morphine Notes: (Same Inactive as:MORPhine 2015 [facility] Sulfate) Hydromorphone 0.5 mg, 0.5 Inactive mL, Route: 2015 [facility] IVP, Drug form: INJ, Q5Min, Dosing Weight 94.119, kg, PRN Pain Score 7-10, Start date: 07/01/15 15:39:00 CDT, Duration: 4 doses or times, Stop date: Limited # of times Fentanyl Notes: (Same Inactive as: Sublimaze) 2015 [facility] Preservative free. Oxycodone Notes: (Same Inactive as: 2015 [facility] Roxicodone) Ketorolac 4 days Inactive MEDICATION 2015 [facility] WASTE Product Size: 30 mg Product Wasted: ___ mg Zofran 4 mg, Route: Inactive IVP, ONCE, 2015 Dosing Weight 94.119, kg, Start date: 07/01/15 12:20:00 CDT, Stop date: 07/01/15 12:20:00 CDT Sodium Chloride 500 mL, Rate: Inactive H 0.154 MEQ/ML 25 ml/hr, 2015 [facility] Injectable Infuse over: Solution 20 hr, Route: IV, Dosing Weight 94.119 kg, Total Volume: 500, Start date: 07/01/15 10:21:00 CDT, Duration: 1 day, Stop date: 07/02/15 10:20:00 CDT Calcium Chloride 1,000 mL, Inactive 0.0014 MEQ/ML / Rate: 25 2015 [facility] Potassium Chloride ml/hr, Infuse 0.004 MEQ/ML / over: 40 hr, Sodium Chloride Route: IV, 0.103 MEQ/ML / Dosing Weight Sodium Lactate 94.119 kg, 0.028 MEQ/ML Total Volume: Injectable 1,000, Start Solution date: 07/01/15 10:21:00 CDT, Duration: 30 day, Stop date: 07/31/15 10:20:00 CDT Ancef Notes: Same No Longer as: Ancef Active 2015 [facility] Vancomycin 2001 mg: No Longer infuse over Active 2015 [facility] 2.5 hours MEDICATION WASTE Product Size: 1000 mg Product Wasted: ___ mg Aspirin 81 MG 81 mg = 1 tab, Active Enteric Coated PO, Daily, # 2016 [place] Tablet 90 tab, 3 Refill(s) NovoLOG 70/30 SUB-Q, ONCE, 0 Active Refill(s) 2015 [facility] Hydralazine 0 Refill(s) Active 2015 [facility] metoprolol BID, 0 Active tartrate Refill(s) 2015 [facility] Ondansetron 8 MG 8 mg = 1 tab, Active H Oral Tablet PO, BID, 0 2015 [facility] [Zofran] Refill(s) Furosemide 40 MG 40 mg = 1 tab, Active Oral Tablet PO, Daily, [address] [facility] [address] Refill(s) Ondansetron 8 MG 8 mg = 1 tab, Active H Disintegrating PO, TID, PRN 2015 [place] Tablet [Zofran] Nausea and Vomiting, Dissolve tab under tongue, X 4 day, # 20 tab, 0 Refill(s) Sodium Chloride 1,000 mL, Inactive 0.154 MEQ/ML 1,000 ml/hr, 2015 [facility] est Injectable Infuse Over: 1 Solution hr, Route: IV, 1,000, Drug form: INJ, ONCE, Priority: STAT, Dosing Weight 86.364 kg, Start date: 06/17/15 11:40:00, Duration: 1 doses or times, Stop date: 06/17/15 11:40:00 Ondansetron Notes: (Same Inactive as: Zofran) 2015 [facility] MEDICATION WASTE Product Size: 4 mg Product Wasted: ___ mg Morphine Notes: (Same Inactive as:MORPhine 2015 [facility] Sulfate) Acetaminophen 300 Special Inactive MG / butalbital 50 Instructions: 2014 MG / Caffeine 40 Do not exceed MG Oral Capsule 6 capsules in [Fioricet] 24 hours methylPREDNISolone Notes: (Same Inactive SODium SUCCinate as:Solu-MEDROL 2014 [facility] , A-Methapred) Benadryl Notes: (Same Inactive as: Benadryl) 2014 [facility] Sodium Chloride 1,000 mL, Inactive 0.154 MEQ/ML 1,000 ml/hr, 2014 [facility] est Injectable Infuse Over: 1 Solution hr, Route: IV, 1,000, Drug form: INJ, ONCE, Priority: STAT, Dosing Weight 86.364 kg, Start date: 08/29/14 15:38:00, Duration: 1 doses or times, Stop date: 08/29/14 15:38:00 Reglan Notes: (Same Inactive as: Reglan) 2014 [facility] Allergies, Adverse Reactions, Alerts Substance Category Reaction Severity Reaction Status Date Comments S ource type Reported traMADol Assertion Drug Active [facility] Immunizations No Data Provided for This Section Results Order Name Results Value Reference Date Interpretation Comments Rochelle rce Range ELECTROLYTE Potassium WB 4.7 3.5 - 5.1 04/19 [facility] ELECTROLYTE Chloride Lvl 111 95 - 109 06/30 S [facility] ELECTROLYTE CO2 19 24 - 32 06/30 S [facility] ELECTROLYTE Calcium Lvl 8.5 8.5 - 10.5 06/30 S [facility] ELECTROLYTE Glucose Lvl 126 70 - 99 06/30 S [facility] ELECTROLYTE Sodium Lvl 140 135 - 145 06/30 S [facility] ELECTROLYTE Potassium 4.6 3.5 - 5.1 06/30 S Lvl [facility] ELECTROLYTE BUN 50 7 - 22 06/30 S [facility] ELECTROLYTE Creatinine 8.31 0.50 - 06/30 S Lvl 1.40 [facility] ELECTROLYTE eGFR 6 06/30 Result Comment: The [facility] eGFR is calculated using the CKD-EPI formula. [...] BMI. ELECTROLYTE AGAP 14.6 10.0 - 06/30 S 20.0 [facility] HEMATOLOGY Lymphocytes 1.2 1.0 - 5.5 04/20 MH # /2016 [place] HEMATOLOGY Basophils 1.0 0.0 - 1.0 04 /2015 [facility] HEMATOLOGY Segs-Bands # 4.4 1.5 - 8.1 06/30 /2015 [facility] HEMATOLOGY Monocytes # 0.5 0.0 - 0.8 06/30 /2015 [facility] HEMATOLOGY Basophils # 0.1 0.0 - 0.2 06/30 /2015 [facility] HEMATOLOGY Eosinophils 0.1 0.0 - 0.5 06/30 MH # /2016 [facility] HEMATOLOGY Monocytes 8.0 2.0 - 12.0 / /2015 [facility] HEMATOLOGY Lymphocytes 19.2 20.0 - 06/30 MH 40.0 /2015 [facility] HEMATOLOGY Segs 69.5 45.0 - 06/30 MH 75.0 /2015 [facility] HEMATOLOGY Eosinophils 2.3 0.0 - 4.0 06/30 /2015 [facility] HEMATOLOGY PTT 35.1 22.9 - 06/30 MH 35.8 /2015 [facility] HEMATOLOGY INR 1.09 0.85 - 06/30 MH 1.17 /2015 [facility] HEMATOLOGY PT 14.4 12.0 - 06/30 MH 14.7 /2015 [facility] HEMATOLOGY Hgb 9.3 12.0 - 06/30 MH 16.0 /2015 [facility] HEMATOLOGY RBC 3.21 4.20 - 06/30 MH 5.40 /2015 [facility] HEMATOLOGY WBC 6.3 3.7 - 10.4 06/30 /2015 [facility] HEMATOLOGY MCV 88.4 80.0 - 06/30 MH 98.0 /2015 [facility] HEMATOLOGY Hct 28.4 36.0 - 06/30 MH 48.0 /2016 [facility] HEMATOLOGY Platelet 190 133 - 450 06/30 [facility] HEMATOLOGY RDW 14.9 11.5 - 06/30 MH 14.5 /2015 [facility] HEMATOLOGY MCHC 32.7 32.0 - 06/30 36.0 /2015 [facility] HEMATOLOGY MCH 28.9 27.0 - 06/30 MH 31.0 /2015 [facility] HEMATOLOGY MPV 8.9 7.4 - 10.4 06/30 [facility] CARDIAC Troponin-I 0.10 0.00 - 04 ENZYMES 0.40 /2015 [facility] CHEM PANEL Lipase Lvl 314 73 - 393 04 [facility] CHEM PANEL B/C Ratio 7 6 - 25 04 [facility] CHEM PANEL Globulin 5.4 2.0 - 4.0 04/ [facility] CHEM PANEL A/G Ratio 0.3 0.7 - 1.6 06/16 [facility] CHEM PANEL AGAP 12.1 10.0 - 04/ MH 20.0 /2015 [facility] CHEM PANEL eGFR 7 06/16 Result Comment: The [facility] eGFR is calculated using the CKD-EPI [...] PANEL AST 45 0 - 37 06/16 [facility] CHEM PANEL Albumin Lvl 1.8 3.5 - 5.0 06/16 [facility] CHEM PANEL ALT 37 0 - 65 06/16 [facility] CHEM PANEL Bili Total 0.3 0.2 - 1.3 06/16 [facility] CHEM PANEL Alk Phos 84 39 - 136 06/16 [facility] CHEM PANEL Total 7.2 6.4 - 8.4 06/16 [facility] CHEM PANEL Calcium Lvl 8.4 8.5 - 10.5 06/16 [facility] CHEM PANEL Glucose Lvl 106 70 - 99 06/16 [facility] CHEM PANEL Potassium 5.1 3.5 - 5.1 06/16 Lvl [facility] CHEM PANEL Chloride Lvl 109 95 - 109 06/16 [facility] CHEM PANEL CO2 21 24 - 32 06/16 [facility] CHEM PANEL Sodium Lvl 137 135 - 145 06/16 [facility] CHEM PANEL Creatinine 7.50 0.50 - 06/16 Lvl 1.40 /2015 [facility] CHEM PANEL BUN 52 7 - 22 06/16 [facility] HEMATOLOGY Monocytes # 0.4 0.0 - 0.8 04/06 MH /2015 [facility] HEMATOLOGY Basophils # 0.0 0.0 - 0.2 04/ /2015 [facility] HEMATOLOGY Eosinophils 0.1 0.0 - 0.5 04/06 MH # /2016 [facility] HEMATOLOGY Lymphocytes 27.3 20.0 - 04/ MH 40.0 /2015 [facility] HEMATOLOGY Segs 65.3 45.0 - 04/ MH 75.0 /2015 [facility] HEMATOLOGY Segs-Bands # 4.4 1.5 - 8.1 04/ /2015 [facility] HEMATOLOGY Basophils 0.5 0.0 - 1.0 04/ /2015 [facility] HEMATOLOGY Eosinophils 1.3 0.0 - 4.0 04/ /2015 [facility] HEMATOLOGY Monocytes 5.6 2.0 - 12.0 04/ /2015 [facility] HEMATOLOGY Lymphocytes 1.9 1.0 - 5.5 04/ MH # /2016 [facility] HEMATOLOGY Hct 28.8 36.0 - 04/ MH 48.0 /2015 [facility] HEMATOLOGY Hgb 9.3 12.0 - 06/16 16.0 /2015 [facility] HEMATOLOGY RBC 3.24 4.20 - 04 MH 5.40 /2015 [facility] HEMATOLOGY MCH 28.8 27.0 - 04 MH 31.0 /2015 [facility] HEMATOLOGY MCV 88.8 80.0 - 04 98.0 /2015 [facility] HEMATOLOGY Platelet 235 133 - 450 04/ /2015 [facility] HEMATOLOGY RDW 15.2 11.5 - 04/ 14.5 /2015 [facility] HEMATOLOGY MCHC 32.4 32.0 - 06/16 36.0 /2015 [facility] HEMATOLOGY MPV 9.3 7.4 - 10.4 06/16 /2015 [facility] HEMATOLOGY WBC 6.8 3.7 - 10.4 06/16 /2015 [facility] URINE AND UA Color Yellow Yellow 06/16 STOOL *NA* /2015 [facility] (06/17/15 12:02 PM) URINE AND UA Turbidity Clear Clear 06/16 [facility] (06/17/15 12:02 PM) /[facility] Leuk Est Negative Negative 06/16 [facility] (06/17/15 12:02 PM) [facility] est URINE AND UA 0.2 0.1 - 1.0 06/16 STOOL Urobilinogen /2015 [facility] URINE AND UA Blood Moderate Negative 06/16 STOOL *ABN* [facility] (06/17/15 12:02 PM) URINE AND UA Nitrite Negative Negative 06/16 [facility] (06/17/15 12:02 PM) [facility] est URINE AND UA Bili Negative Negative 06/16 STOOL *NA* [facility] (06/17/15 12:02 PM) URINE AND UA Glucose 250 mg/dL Negative 06/16 STOOL mg/dL [facility] URINE AND UA Protein >=300 Negative 06/16 STOOL mg/dL mg/dL [facility] URINE AND UA Ketones Negative Negative 06/16 STOOL *NA* [facility] (06/17/15 12:02 PM) URINE AND UA pH 6.5 5.0 - 8.0 06/16 STOOL [facility] URINE AND UA Spec Grav 1.020 <=1.030 06/16 STOOL [facility] URINE AND UA Mucus Few /LPF None Seen 06/16 STOOL /LPF /2015 [facility] URINE AND UA Sq Epi Few /LPF Few /LPF 06/16 STOOL [facility] URINE AND UA RBC 11-20 0 - 2 06/16 STOOL /HPF [facility] URINE AND UA WBC 6-10 /HPF None Seen 06/16 STOOL /HPF [facility] URINE AND UA Bacteria Few /HPF None Seen 06/16 STOOL /HPF [facility] URINE CHEM U Preg Negative Negative 06/16 (06/17/15 12:02 PM) [facility] CHEM PANEL A/G Ratio 0.4 0.7 - 1.6 08/29 [facility] CHEM PANEL B/C Ratio 18 6 - 25 08/29 [facility] CHEM PANEL Globulin 5.0 2.0 - 4.0 08/29 [facility] CHEM PANEL AGAP 11.8 10.0 - 08/29 20.0 [facility] CHEM PANEL eGFR 49 08/29 <sup>1</sup>R esult [facility] Comment: The eGFR is calculated using [...] 242 70 - 99 08/29 <sup>2</sup>I nterpretive [facility] Data: Adult reference range values reflect the clinical guidelines
of the [place] [employer]. CHEM PANEL BUN 27 7 - 22 08/29 [facility] CHEM PANEL Creatinine 1.5 0.5 - 1.4 08/29 Lvl /2014 [facility] CHEM PANEL CO2 22 24 - 32 08/29 [facility] CHEM PANEL Calcium Lvl 8.7 8.5 - 10.5 08/29 [facility] CHEM PANEL Potassium 3.8 3.5 - 5.1 08/29 Lvl /2014 [facility] CHEM PANEL Chloride Lvl 110 95 - 109 08/29 [facility] CHEM PANEL Sodium Lvl 140 135 - 145 08/29 [facility] CHEM PANEL AST 29 0 - 37 08/29 /2014 [facility] CHEM PANEL Alk Phos 61 39 - 136 08/29 [facility] CHEM PANEL Albumin Lvl 1.9 3.5 - 5.0 08/29 [facility] CHEM PANEL ALT 39 0 - 65 08/29 [facility] CHEM PANEL Total 6.9 6.4 - 8.4 08/29 Protein [facility] CHEM PANEL Bili Total 0.3 0.2 - 1.3 08/29 [facility] HEMATOLOGY Monocytes # 0.6 0.0 - 0.8 08/29 /2014 [facility] HEMATOLOGY Lymphocytes 1.9 1.0 - 5.5 08/29 MH # /2014 [facility] HEMATOLOGY Eosinophils 0.0 0.0 - 0.5 08/29 MH # /2014 [facility] HEMATOLOGY Basophils # 0.0 0.0 - 0.2 08/29 /2014 [facility] HEMATOLOGY Eosinophils 0.1 0.0 - 4.0 08/29 [facility] HEMATOLOGY Monocytes 3.8 2.0 - 12.0 08/29 /2014 [facility] HEMATOLOGY Basophils 0.2 0.0 - 1.0 08/29 /2014 [facility] HEMATOLOGY Segs-Bands # 13.9 1.5 - 8.1 08/29 /2014 [facility] HEMATOLOGY Segs 84.1 45.0 - 08/29 75.0 /2014 [facility] Lymphocytes 11.8 20.0 - 08/29 MH 40.0 /2014 [facility] HEMATOLOGY PTT 32.7 22.9 - 08/29 <sup>4</sup>I MH 35.8 /2014 nterpretive [facility] Data: Heparin Therapeutic Range: 57 - 92 Seconds HEMATOLOGY PT 12.4 12.0 - 08/29 14.7 /2014 [facility] HEMATOLOGY INR 0.93 0.85 - 08/29 <sup>3</sup>I MH 1.17 /2014 nterpretive [facility] Data: RECOMMENDED RANGES FOR PROTIME INR:
2.0-3.0 for most medical and surgical thromboemboli c states.
2.5-3.5 for artificial heart valves and recurrent embolism.<br/ >
INR SHOULD BE USED ONLY FOR PATIENTS ON STABLE ANTICOAGULANT THERAPY. HEMATOLOGY MPV 9.5 7.4 - 10.4 08/29 /2014 [facility] HEMATOLOGY MCHC 32.4 32.0 - 08/29 36.0 /2014 [facility] HEMATOLOGY RDW 14.2 11.5 - 08/29 14.5 /2014 [facility] Platelet 229 133 - 450 08/29 /2014 [facility] HEMATOLOGY MCV 87.9 80.0 - 08/29 98.0 /2014 [facility] WBC 16.5 3.7 - 10.4 08/29 /2014 [facility] HEMATOLOGY RBC 4.32 4.20 - 08/29 5.40 /2014 [facility] HEMATOLOGY Hgb 12.3 12.0 - 08/29 16.0 /2014 [facility] HEMATOLOGY Hct 37.9 36.0 - 08/29 48.0 /2014 [facility] HEMATOLOGY MCH 28.5 27.0 - 08/29 31.0 /2014 [facility] Pathology Reports No Data Provided for This Section Diagnostic Reports Report Value Date Source Chest 2 views DX REASON FOR EXAM: Cough. 05/18/2016 KAYLYN [place] COMPARISON: Portable chest x-ray 06/17/2015. FINDINGS: A two-view chest x -ray was performed. There is blunting of the right costophrenic angle suggesting a small right pleural effusion. There is a small to moderate left pleural effusion. There is subsegmental atelectasis at the lung pleural effusion interface bilaterally. The left pleural effusion obscures the left lower thorax and left diaphragm. There is no demonstrable pneumothorax or vascula r congestion. The cardiac si lhouette is partially obscured by the left pleural effusion but likely mildly enlarged. There is no significant osseous abnormality. There are surgical clips in the abdomen. IMPRESSION: 1. Bilateral pleural effusions, left [place] n right. 2. Subsegmental atelectasis at the lung pleural effusion interface bilaterally. 3. Enlarged cardiac silhouette. SL: 15 Chest 1view DX Study: Chest 1view DX 06/17/2015 11:44 AM CDT 0 08/2015 [facility] Patient Name: ROSA PINO MR: [id number] : 1970; Age: 45 years y/o Female Ordering Physician: Tara Vaughn Clinical Indication: Dyspnea acute nonspecific c hest pain. Comparison: None Lungs: Mildly hypoinflated l ungs with underpenetration of the lung bases. Hazy bilateral basilar opacities and perihilar opacities may represent atelectasis and artifact from under penetration versus mi ld edema or pneumonitis. No pleural effusion or pneumothorax.. The trachea is midline. Heart and mediastinum: Heart size at the upper limits of normal accentuated by hypoinflation. Lines: None. Other: None. Osseous structures: No fract ure, dislocation, or suspicious focal osseous lesion. IMPRESSION: 1. Hypoinflation with mild underpenetration of the lung bases. Hazy perihilar and lower lobe opacities may represent atelectasis artifact versus mild edema or pneumonitis. A lateral chest radiograph would be helpful. 2. Heart size near upper limits of normal. SL: [id number] Brain CTA EXAM: BRAIN CTA WITH CONTRAST 08/29/2014 [facility] EXAM: BRAIN CT WITHOUT CONTRAST DATE: Aug 29, 2014 06:09:00 PM INDICATION: Headache Primary [place] COMPARISON: None TECHNIQUE Rapid acquisition spiral vidal ges were obtained of the head during intravenous contras. Reconstructed axial images and angiographic 3D maximum intensity projections (MIP). Precontrast images of the brain were also obtained. FINDINGS: NONCONTRAST CT HEAD: Ventricles are normal in siz e. Cavum septum pellucidum is identified. No midline shift or herniation is seen. No intracranial hemorrhage o r extraaxial collection is present. There is no intra-axial mass. The corral-white matter interface is preserved. The paranasal sinuses and ma stoid air cells are clear. No skull fracture [...] intracranial vertebra l artery is dominant. The le ft posterior inferior cerebellar artery is prominent. Left anterior/inferior cerebellar artery is not seen. The major dural venous sinuses are poorly opacif ied but appear patent. There are no enhancing intra cranial lesions Bilateral orbits are symmetric No intracranial collections are seen. IMPRESSION: 1.No major branch occlusion, flow limiting stenosis, vascular malformation or aneurysm. 2. No intracranial hemorrhag e seen. No acute intracranial abnormality identified. SL: 12 Consultation Notes No Data Provided for This Section Discharge Summaries No Data Provided for This Section History and Physicals No Data Provided for This Section Vital Signs Vital Sign Value Date Comments Source Respitory Rate 17 04/19/2019 [facility] Systolic (mm Hg) 165 04/19/2019 [facility] Diastolic (mm Hg) 81 04/19/2019 [facility] Respitory Rate 21 04/19/2019 [facility] Systolic (mm Hg) 151 04/19/2019 [facility] Diastolic (mm Hg) 78 04/19/2019 [facility] Respitory Rate 16 04/19/2019 [facility] Systolic (mm Hg) 154 04/19/2019 [facility] [place] Diastolic (mm Hg) 76 04/19/2019 [facility] Heart Rate 92 04/19/2019 [facility] Height 170.18 cm 04/19/2019 [facility] Weight 70.9 04/19/2019 [facility] BMI Calculated 24.48 04/19/2019 [facility] BMI Calculated 28.95 08/05/2015 [facility] Height 172.72 cm 08/05/2015 [facility] Weight 86.364 08[facility]05/2015 [facility] Temperature Oral (F) 97.7 F 08/05/2015 [facility] Heart Rate 118 08/05/2015 [place] Respitory Rate 16 08/05/2015 [place] Systolic (mm Hg) 168 08/05/2015 [place] Diastolic (mm Hg) 103 08/05/2015 [place] Resp[place] Rate 18 07/01/2015 [facility] Systolic (mm Hg) 159 07/01/2015 [facility] [facility] Diastolic (mm Hg) 99 07/01/[address] Respitory Rate 18 07/01/2015 [facility] Systolic (mm Hg) 160 07/01/2015 [place] [facility] Diastolic (mm Hg) 100 07/01/[address] Systolic (mm Hg) 158 07/01/2015 [facility] [facility] Diastolic (mm Hg) 102 07/01/[address] Respitory Rate 18 07/01/2015 [facility] Temperature Oral (F) 98.2 F 07/01/2015 [facility] Heart Rate 112 07/01/2015 [facility] BMI Calculated 32.5 06/30/2015 [facility] Height 170.18 cm 06/30/2015 [facility] Weight 94.119 06/30/2015 [facility] Heart Rate 89 06/17/2015 [facility] Temperature Oral (F) 98.0 F 06/17/2015 [facility] Resp[facility] Rate 20 06/17/2015 [facility] Systolic (mm Hg) 132 06/17/2015 [facility] Diastolic (mm Hg) 88 06/17/[address] [facility] st Weight 86.364 06/17/2015 [facility] Heart Rate 103 06/17/2015 [facility] Respitory Rate 22 06/17/2015 [facility] Systolic (mm Hg) 173 06/17/2015 [facility] Diastolic (mm Hg) 122 06/17/[address] BMI Calculated 28.95 06/17/2015 [facility] Height 172.72 cm 06/17/2015 [facility] Temperature Oral (F) 98.2 F 06/17/2015 [facility] Systolic (mm Hg) 137 08/29/2014 [place] Diastolic (mm Hg) 91 08/29/[address] [facility] Temperature Oral (F) 98.3 F 08/29/2014 [facility] Heart Rate 91 08/29/2014 [facility] Respitory Rate 18 08/29/2014 [facility] Respitory Rate 20 08/29/2014 [facility] Heart Rate 89 08/29/2014 [facility] Systolic (mm Hg) 174 08/29/2014 [facility] t Diastolic (mm Hg) 102 08/29/2014 [facility] st Weight 86.364 08/29/2014 [facility] BMI Calculated 28.95 08/29/2014 [facility] Heart Rate 97 08/29/2014 [facility] Respitory Rate 18 08/29/2014 [facility] Systolic (mm Hg) 163 08/29/2014 [facility] Diastolic (mm Hg) 113 08/29/2014 [facility] st Temperature Oral (F) 98.3 F 08/29/2014 [facility] Height 172.72 cm 08/29/2014 [facility] Encounters Location Location Encounter Encounter Reason Attending ADM DC Stat us Source Details Type Number For Provider Date Date Visit [facility] [id number] Kizzy 08/29 08/30 [facility] Emergency [place] /2014 [facility] [id number] Woody 06/16 04 M [facility] Emergency [place] /2015 [facility] OBS Day [id number] Alexandre 06/30 06/30 M [facility] Surgery Kelvin /2015 [facility] [id number] Latia Sarah 08/04 08/04 [place] [facility] /2015 [facility] Outpt Diag [id number] Casey 05/18 05/19 [facility] [id number] Sheyla Ali 04/19 04/20 [facility] Surgery /2019 [facility] Procedures Procedure Code Date Perfomer Comments Source Cholecystectomy [id number] [address], [place], [place] Abdominal [id number] [facility], [place]avia [place], [place], Kamlesh CS - section [id number] [facility], [place], [place] Assessment and Plan No Data Provided for This Section Plan of Care No Data Provided for This Section Social History Social History Date Source Social History TypeResponse 06/30/2015 [facility] Substance Abuse Use: None. Alcohol Never Smoking Status Never smoker; Previous treatment: None; Ready to change: No; Concerns about tobacco use in household: No; Exposure to Tobacco Smoke None; Cigarette Smoking Last 365 Days No; Reg Smoking Cessation Counseling No Social History TypeResponse 06/30/2015 [facility] Substance Abuse Use: None. Alcohol Never Smoking Status Never smoker; Previous treatment: None; Ready to change: No; Concerns about tobacco use in household: No; Exposure to Tobacco Smoke None; Cigarette Smoking Last 365 Days No; Reg Smoking Cessation Counseling No Social History TypeResponse 06/30/2015 [facility] Substance Abuse Use: None. Alcohol Never Smoking Status Never smoker; Previous treatment: None; Ready to change: No; Concerns about tobacco use in household: No; Exposure to Tobacco Smoke None; Cigarette Smoking Last 365 Days No; Reg Smoking Cessation Counseling No Social History TypeResponse 06/30/2015 [facility] Alcohol Never Substance Abuse Use: None. Smoking Status Never smoker; Type: Cigarettes; Previous treatment: None; Ready to change: No; Concerns about tobacco use in household: No; Exposure to Tobacco Smoke None; Cigarette Smoking Last 365 Days No; Reg Smoking Cessation Counseling No entered on: 04/19/19 Social History TypeResponse 06/17/2015 [facility] Substance Abuse Use: None. Alcohol Never [...]
--- OUTSIDE RECORDS SUMMARY | 2020-02-22 08:27 | XMS REPORT | Continuity of Care Document ---
:1970 Author Organization [facility] t Address [address] [place] [address] Care Team Providers Name Role Phone UNKNOWN Primary Care Physician Unavailable Cassandra ZARAGOZA Attending Clinician Unavailable Gabriel Attending Clinician Unavailable Georgi Attending Clinician Unavailable Rina Attending Clinician Unavailable Jeanette ZARAGOZA, P Attending Clinician Unavailable Zbigniew ARROYO Attending Clinician Unavailable Eliezer López MD Attending Clinician Cornelius Attending Clinician Unavailable Rin Albarado Attending Clinician BRY CONNORS M.D. Attending Clinician Unavailable TOMASA Attending Clinician Unavailable ERNESTO TOHRPE Attending Clinician Unavailable JOSE DE JESUS Attending Clinician Unavailable Sara Davis Attending Clinician Benjamin Smith Attending Clinician William Warren Attending Clinician Malik Ku Attending Clinician Montrell Pulliam Attending Clinician BRY CONNORS M.D., A Admitting Clinician Unavailable TOMASA Admitting Clinician Unavailable ERNESTO THORPE Admitting Clinician Unavailable JOSE DE JESUS Admitting Clinician Unavailable Payers Payer Name Policy Type Policy Effective Date Expiration Date Sour ce Number MEDICAREMEDICARE A [id number] GAURAV Glynn [id number] - M edical for all datesMedicare Simin ter MEDICAIDMEDICAID OF [id number] 2017 GAURAV Glynn [id number] 00:00:00 - Medical -PresentMedicaid Center Problems Condition Condition Condition Status Onset Resolution Last Treating Co mments Source Name Details Category Date Date Treatment Clinician Date PERFORATED Diagnosis Active 2019-04-19 Memoria CORNEAL 2 11:44:00 l ULCER, 00:00: [place] LEFT EYE PERFORATED 00 CORNEAL ULCER, LEFT EYE Active 04/18/2019 [facility] Anemia Anemia Disease Active 2016-[address] [facility] 00 [place] Hydrocepha Hydrocepha Disease Active 2016-[address] [facility]iot 2-[facility] History of History of Disease Active 2016-[address] DVT (deep DVT (deep 2-13 [facility] - vein vein 00:00: Medical thrombosis thrombosis 00 Ce nter ) ) Headache Headache Disease [facility] 00 [place] Dizziness Dizziness Disease Active 2016-[address] [facility] [facility] Center Nausea & Nausea & Disease Active 2016-[facility] 00 Center AVF AVF Disease Active 2016-03 Overview[facility] ([facility]iove (arteriove 1-15 Left-12/13 [facility] - nous nous 00:00: Medical fistula) fistula) 00 Center Ischemic Ischemic Disease Active 2016-03 [facility] cardiomyop cardiomyop 0-23 [facility]any kes - athy athy 00:00: Medical 00 Center Chronic Chronic Disease Active [facility] 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 [facility] - 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 without 00:00: [facility] socorro hepatic hepatic 00 Center coma coma Type 2 Type [address] [facility] diabetes diabetes 3-24 [facility] - mellitus mellitus 00:00: Medica l with with 00 Center complicati complicati on on Essential Essential Disease Active [facility] hypertensi hypertensi 3-24 [facility]any kes - on on 00:00: Medical 00 Center NOSE BLEED Diagnosis Active 2015-08-05 Memoria 5 17:41:00 l NOSE 00:00: Yovani BLEED 00 Active 08/05/2015 [facility] Yovani UNK Diagnosis Active 2015-08-21 Mem oria 4-18 14:28:00 l UNK 00:00: Yovani 00 Active 06/29/2015 [facility] VOMITING/C Diagnosis Active 2015-06-17 Memoria HILLS 06-16 12:30:00 l 00:00: [place] VOMITING/C 00 HILLS Active 06/17/2015 [facility] VOMITING Diagnosis Active 2014-09-01 M emoria 08-29 13:41:00 l VOMITING 00:00: Myles n 00 Active 08/29/2014 [facility] CAD CAD Disease Active Overview: [facility] [...] He rmann mellitus (disorder) Resolved Problem 04/21/2019 [facility], [facility] History of Problem Resolve 2019-04-21 Memoria - migraine d 23:42:23 l (context-d History Her hollis ependent of - category) migraine (context-d ependent category) Resolved Problem 04/21/2019 [facility], KAYLYN Hewett,[facility] Heartburn Problem Resolve 2019-04-21 M emoria (finding) d 23:42:23 l [place] Heartburn (finding) Resolved Problem 04/21/2019 [facility], KAYLYN Hewett Hypertensi Problem Resolve 2019-04-21 Memoria ve d 23:42:23 l disorder, [place] systemic Hypertensi arterial ve (disorder) disorder, systemic arterial (disorder) Resolved Problem 04/21/2019 [facility], [facility] Problem Resolve 2019-04-21 Mem oria (finding) d 23:42:23 l Dyspnea [place] (finding) Resolved Problem 04/21/2019 [facility], KAYLYN Silvaland End stage Problem Active 2019-04-21 Me florez renal 23:42:23 l disease End [place] (disorder) stage renal disease (disorder) Active Problem 04/21/2019 [facility], Sara Squires [facility], KAYLYN Hewett Discharge Problem 2015-06-20 2015-06-20 Memoria Diagnosis: 4-06 03:51:39 03:51:39 l N&V 05:00: Yovani (nausea Discharge 00 and Diagnosis: vomiting) N&V (nausea and vomiting) 06/17/2015 06/20/2015 [facility] Discharge Problem 2014-09-01 2014-09-01 Memoria Diagnosis: - 11:15:55 11:15:55 l Acute 05:00: [place] headache Discharge 00 Diagnosis: Acute headache 5 09/01/2014 [facility] Allergies, Adverse Reactions, Alerts Allergy Allergy Status Severity Reaction(s) Onset Inactive Treating Comm ents Source Name Type Date Date Clinician Tramadol Drug Active Nausea And dizziness [facility] Int[facility]era Vomiting, 06-06 [facility] nce Other (See 00:00: Medica l Comments) 00 Center traMADol traMADol Active Alex Pina Social History Social Habit Start Date Stop Date Quantity Comments Source Sex Assigned At [facility] Tobacco use and 2019-07-24 2019-07-[address] [facility] exposure 00:00:00 00:00:00 [facility] Alcohol intake 2019-07-24 2019-07-24 Current [facility] - 00:00:00 00:00:00 non-drinker of [facility] nter alcohol (finding) Social History 2015-06-17 2015-06-17 [facility] 16:48:19 16:48:19 Smoking Status Start Date Stop Date Source Never smoker [facility] Medications Ordered Filled Start Stop Current Ordering Indication Dosage Frequency Signature Comments Components Source Medication Medication Date Date Medication? Clinician (SIG) Name Name Hydralazine No 10 mg, Juan Manuel héctor 2-07 Route: l 21:10: IVP, [place] 00 Q20Min, Dosing Weight 70.9, kg, PRN Elevated BP, Start date: 04/19/19 15:10:00 [employer], Duration: 2 doses or times, Stop date: Limited # of times Labetalol 2020-0 No 10 mg, Memori a 2- Route: l 21:10: IVP, Yovani 00 Q5Min, Dosing Weight 70.9, kg, PRN Elevated BP, Start date: 04/19/19 15:10:00 [employer], Duration: 5 doses or times, Stop date: Limited # of times Acetaminoph 2020-0 No 1,000 mg, M emoria en 2- Route: PO, l 21:10: Drug form: [place] 00 TAB, ONCE, Dosing Weight 70.9, kg, PRN Pain Score 1-3, Start date: 04/19/19 15:10:00 [employer] Oxycodone 2020-0 No 5 mg, Memoria Hydrochlori 04-19 Route: PO, l de 5 MG 21:10: Drug form: Herm fabricio Oral Tablet 00 TAB, Q4H, Dosing Weight 70.9, kg, PRN Pain Score 4-6, Start date: 04/19/19 15:10:00 [employer], Duration: 30 day, Stop date: 05/19/19 15:09:00 CDT Hydromorpho 2020-0 No 0.5 mg, Mem oria ne 04-19 Route: l 21:10: IVP, Yovain 00 Q5Min, Dosing Weight 70.9, kg, PRN Pain Score 7-10, Start date: 04/19/19 15:10:00 [employer], Duration: 4 doses or times, Stop date: Limited # of times Flumazenil 2020-0 No 0.2 mg, Juan Manuel héctor 04-19 Route: l 21:10: IVP, PRN, Yovani 00 Dosing Weight 70.9, kg, PRN Benzodiaze pine Reversal, Initial dose, Start date: 04/19/19 15:10:00 [employer], Duration: 30 day, Stop date: 05/19/19 16:09:00 CDT Naloxone 2020-0 No 0.4 mg, Memori a 04-19 Route: l 21:10: IVP, [place] 00 Q2MIN, Dosing Weight 70.9, kg, PRN Narcotic Reversal, Start date: 04/19/19 15:10:00 [employer], Duration: 8 doses or times, Stop date: Limited # of times Ondansetron 2020-0 No 4 mg, Memor ia 2-07 Route: l 21:10: IVP, ONCE, [place] 00 Dosing Weight 70.9, kg, PRN Nausea & Vomiting, Start date: 04/19/19 15:10:00 [employer] Hydralazine 2020-0 No 10 mg, Juan Manuel héctor 2- Route: l 21:10: IVP, Yovani 00 Q20Min, Dosing Weight 70.9, kg, PRN Elevated BP, Start date: 04/19/19 15:10:00 [employer], Duration: 2 doses or times, Stop date: Limited # of times Labetalol 2020-0 No 10 mg, Memori a 2- Route: l 21:10: IVP, Yovani 00 Q5Min, Dosing Weight 70.9, kg, PRN Elevated BP, Start date: 04/19/19 15:10:00 [employer], Duration: 5 doses or times, Stop date: Limited # of times Acetaminoph 2020-0 No 1,000 mg, M emoria en 2- Route: PO, l 21:10: Drug form: Yovani 00 TAB, ONCE, Dosing Weight 70.9, kg, PRN Pain Score 1-3, Start date: 04/19/19 15:10:00 [employer] Oxycodone 2020-0 No 5 mg, Memoria Hydrochlori 2- Route: PO, l de 5 MG 21:10: Drug form: Herm fabricio Oral Tablet 00 TAB, Q4H, Dosing Weight 70.9, kg, PRN Pain Score 4-6, Start date: 04/19/19 15:10:00 [employer], Duration: 30 day, Stop date: 05/19/19 15:09:00 CDT Hydromorpho 2020-0 No 0.5 mg, Mem oria ne 2-07 Route: l 21:10: IVP, Yovani 00 Q5Min, Dosing Weight 70.9, kg, PRN Pain Score 7-10, Start date: 04/19/19 15:10:00 [employer], Duration: 4 doses or times, Stop date: Limited # of times Flumazenil 2020-0 No 0.2 mg, Juan Manuel héctor 2-07 Route: l 21:10: IVP, PRN, [place] 00 Dosing Weight 70.9, kg, PRN Benzodiaze pine Reversal, Initial dose, Start date: 04/19/19 15:10:00 [employer], Duration: 30 day, Stop date: 05/19/19 16:09:00 CDT Naloxone 2020-0 No 0.4 mg, Memori a 04-19 Route: l 21:10: IVP, Q2MIN, Dosing Weight 70.9, kg, PRN Narcotic Reversal, Start date: 04/19/19 15:10:00 [employer], Duration: 8 doses or times, Stop date: Limited # of times Ondansetron 2020-0 No 4 mg, Memor ia 04-19 Route: l 21:10: IVP, ONCE, Dosing Weight 70.9, kg, PRN Nausea & Vomiting, Start date: 04/19/19 15:10:00 [employer] ondansetron 2020-0 No Route: IV, Memoria (ANES) 04-19 Drug form: l 20:55: INJ, ONCE, Stop date: 04/19/19 14:55:00 [employer] glycopyrrol 2020-0 No Route: IV, Memoria ate (ANES) 04-19 Drug form: l 20:55: INJ, ONCE, Stop date: 04/19/19 14:55:00 [employer] neostigmine 2020-0 No Route: IV, Memoria (ANES) 04-19 Drug form: l 20:55: INJ, ONCE, Stop date: 04/19/19 14:55:00 [employer] ondansetron 2020-0 No Route: IV, Memoria (ANES) 04-19 Drug form: l 20:55: INJ, ONCE, Stop date: 04/19/19 14:55:00 [employer] glycopyrrol 2020-0 No Route: IV, Memoria ate (ANES) 04-19 Drug form: l 20:55: INJ, ONCE, Stop date: 04/19/19 14:55:00 [employer] neostigmine 2020-0 No Route: IV, Memoria (ANES) 04-19 Drug form: l 20:55: INJ, ONCE, Stop date: 04/19/19 14:55:00 [employer] dexamethaso 2020-0 No Route: IV, Memoria ne (ANES) 04-19 Drug form: l 20:27: INJ, ONCE, Stop date: 04/19/19 14:27:00 [employer] dexamethaso 2020-0 No Route: IV, Memoria ne (ANES) 2 Drug form: l 20:27: INJ, ONCE, Stop date: 04/19/19 14:27:00 [employer] lidocaine 2020-0 No Route: IV, Me moria (ANES) 2 Drug form: l 20:22: INJ, ONCE, Stop date: 04/19/19 14:22:00 [employer] propofol 2020-0 No Route: IV, Mem oria (ANES) 04-19 Drug form: l 20:22: INJ, ONCE, Stop date: 04/19/19 14:22:00 [employer] rocuronium 2020-0 No Route: IV, M emoria (ANES) 04-19 Drug form: l 20:22: INJ, ONCE, Stop date: 04/19/19 14:22:00 [employer] fentaNYL 2020-0 No Route: IV, Mem oria (ANES) 04-19 Drug form: l 20:22: INJ, ONCE, Stop date: 04/19/19 14:22:00 [employer] ePHEDrine 2020-0 No Route: IV, Me moria (ANES) 04-19 Drug form: l 20:22: INJ, ONCE, Stop date: 04/19/19 14:22:00 [employer] phenylephri 2020-0 No Route: IV, Memoria ne (ANES) 04-19 Drug form: l 20:22: INJ, ONCE, Stop date: 04/19/19 14:22:00 [employer] lidocaine 2020-0 No Route: IV, Me moria (ANES) 2 Drug form: l 20:22: INJ, ONCE, Stop date: 04/19/19 14:22:00 [employer] propofol 2020-0 No Route: IV, Mem oria (ANES) 2- Drug form: l 20:22: INJ, ONCE, Stop date: 04/19/19 14:22:00 [employer] rocuronium 2020-0 No Route: IV, M emoria (ANES) 2- Drug form: l 20:22: INJ, ONCE, Stop date: 04/19/19 14:22:00 [employer] fentaNYL 2020-0 No Route: IV, Mem oria (ANES) 2- Drug form: l 20:22: INJ, ONCE, Stop date: 04/19/19 14:22:00 [employer]ER ePHEDrine 2020-0 No Route: IV, Me moria (ANES) 2- Drug form: l 20:22: INJ, ONCE, Stop date: 04/19/19 14:22:00 [employer] phenylephri 2020-0 No Route: IV, Memoria ne (ANES) 2- Drug form: l 20:22: INJ, ONCE, Stop date: 04/19/19 14:22:00 [employer] Sodium 2020-0 No Route: IV, Memor ia Chloride 2-07 Total l 0.9% IV 19:17: Volume: Yovani (ANES) 500 00 500, Start mL date: 04/19/19 13:17:00 [employer], Stop date: 04/19/19 14:17:00 [employer] Sodium 2020-0 No Route: IV, Memor ia Chloride 2-07 Total l 0.9% IV 19:17: Volume: Yovani (ANES) 500 00 500, Start mL date: 04/19/19 13:17:00 [employer], Stop date: 04/19/19 14:17:00 [employer] Home 2020-0 Yes Refill(s) Memoria Medication 2-07 0 l 18:38: [place] 00 gabapentin 2020-0 Yes PO, 0 Memori a 2-07 Refill(s) l 18:38: Home 2020-0 Yes Refill(s) Memoria Medication 2-07 0 l 18:38: 00 gabapentin 2020-0 Yes PO, 0 Memori a 2-07 Refill(s) l 18:38: Yovani 00 calcitriol 2016-03 Yes .25ug QD Take 0.[address] (ROCALTROL) 2-15 mcg by [facility] - 0.25 MCG 07:04: mouth Medical capsule 06 daily. [place] valsartan 2016-03 Yes 160mg QD Take [address] [facility] (DIOVAN) 2-15 mg by [facility] - 160 MG 07:04: mouth Medical tablet 06 daily. [place] apixaban 2016-03 Yes 5mg Q.5D Take [address] [facility] [facility] (ELIQUIS) 5 2-15 by mouth 2 Brittany kes - mg Tab 07:04: (two) Medical tablet 06 times Center daily. melatonin 3 2016-03 Yes [...] by mouth [facility] - 00:[facility]: daily . [address] Hydromorpho No 0.3 mg, Mem oria ne 4-20 0.3 mL, l 20:49: Route: IVP, Drug form: INJ, Q3H, Dosing Weight 86.364, kg, PRN Pain Score 4-6, Start date: 07/01/15 15:49:00 CDT, Duration: 30 day, Stop date: 07/31/15 15:48:00 CDT Hydromorpho No 0.3 mg, Mem oria ne [...] ate 4-20 (Same as: l 20:39: Robinul) Yovani 00 Diphenhydra No Notes: Juan Manuel héctor mine [...] (Same as: l 20:39: Roxicodone ) Ketorolac No 4 days Memor ia 4-20 l 20:39: MEDICATION WASTE Product Size: 30 mg Product Wasted: ___ mg Promethazin No 6.25 mg, Me moria e [...] Stop date: Limited # of times Fentanyl 2015-0 No Notes: Memoria 4-20 (Same as: l 20:39: Sublimaze) Preservat rocco free. Oxycodone 0 No Notes: Memori a 4-20 (Same as: l 20:39: Roxicodone ) Ketorolac 2015-0 No 4 days Memor ia 4-20 l 20:39: MEDICATION WASTE Product Size: 30 mg Product Wasted: ___ mg Zofran 2016-0 No 4 mg, Memoria -20 Route: l 17:20: IVP, ONCE, Dosing Weight 94.119, kg, Start date: 07/01/15 12:20:00 CDT, Stop date: 07/01/15 12:20:00 CDT Zofran 2015-0 No 4 mg, Memoria 20 Route: l 17:20: IVP, ONCE, Dosing Weight 94.119, kg, Start date: 07/01/15 12:20:00 CDT, Stop date: 07/01/15 12:20:00 CDT Sodium 2015-0 No 500 mL, Memoria Chloride 4-20 Rate: 25 l 0.154 15:21: ml/hr, [place] MEQ/ML 00 Infuse Injectable over: 20 Solution hr, Route: IV, Dosing Weight 94.119 kg, Total Volume: 500, Start date: 07/01/15 10:21:00 CDT, Duration: 1 day, Stop date: 07/02/15 10:20:00 CDT Calcium 2016-0 No 1,000 mL, Memor ia Chloride -20 Rate: 25 l 0.0014 15:21: ml/hr, Yovani MEQ/ML / 00 Infuse Potassium over: 40 Chloride hr, Route: 0.004 IV, Dosing MEQ/ML / Weight Sodium 94.119 kg, Chloride Total 0.103 Volume: MEQ/ML / 1,000, Sodium Start Lactate date: 0.028 07/01/15 MEQ/ML 10:21:00 Injectable CDT, Solution Duration: 30 day, Stop date: 07/31/15 10:20:00 CDT Sodium 2015-0 No 500 mL, Memoria Chloride 4-20 Rate: 25 l 0.154 15:21: ml/hr, Yovani MEQ/ML 00 Infuse Injectable over: 20 Solution hr, Route: IV, Dosing Weight 94.119 kg, Total Volume: 500, Start date: 07/01/15 10:21:00 CDT, Duration: 1 day, Stop date: 07/02/15 10:20:00 CDT Calcium 2016-0 No 1,000 mL, Memor ia Chloride 4-20 Rate: 25 l 0.0014 15:21: ml/hr, Yovani MEQ/ML / 00 Infuse Potassium over: 40 Chloride hr, Route: 0.004 IV, Dosing MEQ/ML / Weight Sodium 94.119 kg, Chloride Total 0.103 Volume: MEQ/ML / 1,000, Sodium Start Lactate date: 0.028 07/01/15 MEQ/ML 10:21:00 Injectable CDT, Solution Duration: 30 day, Stop date: 07/31/15 10:20:00 CDT Ancef No Notes: Memoria 4-20 Same as: l 12:00: Ancef [place] Vancomycin No 2001 mg: Me moria 4-20 infuse l 12:00: over 2.5 Yovani 00 hours MEDICATION WASTE Product Size: 1000 mg Product Wasted: ___ mg Ancef No Notes: Memoria 4-20 Same as: l 12:00: Ancef [place] Vancomycin No 2001 mg: Me moria 4-20 infuse l 12:00: over 2.5 [place] 00 hours MEDICATION WASTE Product Size: 1000 mg Product Wasted: ___ mg Aspirin 81 Yes 81 mg = 1 Me moria MG Enteric 4-19 tab, PO, l Coated 18:20: Daily, # Yovani Tablet 00 90 tab, 3 Refill(s) Aspirin 81 Yes 81 mg = 1 Me moria MG Enteric 4-19 tab, PO, l Coated 18:20: Daily, # Yovani Tablet 00 90 tab, 3 Refill(s) NovoLOG Yes SUB-Q, Memoria 70/30 4-19 ONCE, 0 l 18:19: Refill(s) [place] Hydralazine Yes 0 Memori a 4-19 Refill(s) l 18:19: [place] 00 metoprolol 2016-0 Yes BID, 0 Memor ia tartrate 4-19 Refill(s) l 18:19: Ondansetron 2016-0 Yes 8 mg = 1 Me moria 8 MG Oral 4-19 tab, PO, l Tablet 18:19: BID, 0 [place] [Zofran] 00 Refill(s) Furosemide 2016-0 Yes 40 mg = 1 Me moria 40 MG Oral 4-19 tab, PO, l Tablet 18:19: Daily, 0 [place] 00 Refill(s) NovoLOG 2016-0 Yes SUB-Q, Memoria 70/30 4-19 ONCE, 0 l 18:19: Refill(s) Hydralazine 2016-0 Yes 0 Memori a 4-19 Refill(s) l 18:19: [place] 00 metoprolol 2016-0 Yes BID, 0 Memor ia tartrate 4-19 Refill(s) l 18:19: Ondansetron 2016-0 Yes 8 mg = 1 Me moria 8 MG Oral 4-19 tab, PO, l Tablet 18:19: BID, 0 Yovani [Zofran] 00 Refill(s) Furosemide 2016-0 Yes 40 mg = 1 Me moria 40 MG Oral 4-19 tab, PO, l Tablet 18:19: Daily, 0 Yovani 00 Refill(s) Ondansetron 2016-0 Yes 8 mg = 1 Me moria 8 MG 4-06 tab, PO, l Disintegrat 17:47: TID, PRN He rmann ing Tablet 00 Nausea and [Zofran] Vomiting, Dissolve tab under tongue, X 4 day, # 20 tab, 0 Refill(s) Ondansetron 2016-0 Yes 8 mg = 1 Me moria 8 MG 4-06 tab, PO, l Disintegrat 17:47: TID, PRN He rmann ing Tablet 00 Nausea and [Zofran] Vomiting, Dissolve tab under tongue, X 4 day, # 20 tab, 0 Refill(s) Sodium 2016-0 No 1,000 mL, Memori a Chloride 4-06 1,000 l 0.154 16:40: ml/hr, Yovani MEQ/ML 00 Infuse Injectable Over: 1 Solution hr, Route: IV, 1,000, Drug form: INJ, ONCE, Priority: STAT, Dosing Weight 86.364 kg, Start date: 06/17/15 11:40:00, Duration: 1 doses or times, Stop date: 06/17/15 11:40:00 Ondansetron No Notes: Juan Manuel héctor 06-16 (Same as: l 16:40: Zofran) [place] 00 MEDICATION WASTE Product Size: 4 mg Product Wasted: ___ mg Morphine No Notes: Memoria 06-16 (Same l 16:40: as:MORPhin Yovani 00 e Sulfate) Sodium No 1,000 mL, Memori a Chloride 06-16 1,000 l 0.154 16:40: ml/hr, [place] MEQ/ML 00 Infuse Injectable Over: 1 Solution [...] Notes: Memoria 06-16 (Same l 16:40: as:MORPhin [place] 00 e Sulfate) Acetaminoph No Special Mem oria en 300 MG / 6-19 Instructio l butalbital 21:16: ns: Do not H ermann 50 MG / 00 exceed 6 Caffeine 40 capsules MG Oral in 24 Capsule hours [Fioricet] Acetaminoph No Special Mem oria en 300 MG / 6-19 Instructio l butalbital 21:16: ns: Do not H ermann 50 MG / 00 exceed 6 Caffeine 40 capsules MG Oral in 24 Capsule hours [Fioricet] methylPREDN No Notes: Juan Manuel héctor ISolone 6-19 (Same l SODium 20:39: as:Solu-ME Deepika nn SUCCinate 00 DROL, A-Methapre d) methylPREDN No Notes: Juan Manuel héctor ISolone 6-19 (Same l SODium 20:39: as:Solu-ME Deepika nn SUCCinate 00 DROL, A-Methapre d) Benadryl No Notes: Memoria 6-19 (Same as: l 20:38: Benadryl) Yovani 00 Sodium No 1,000 mL, Memori a Chloride - 1,000 l 0.154 20:38: ml/hr, Yovani MEQ/ML 00 Infuse Injectable Over: 1 Solution hr, Route: IV, 1,000, Drug form: INJ, ONCE, Priority: STAT, Dosing Weight 86.364 kg, Start date: 08/29/14 15:38:00, Duration: 1 doses or times, Stop date: 08/29/14 15:38:00 Reglan No Notes: Memoria 08-29 (Same as: l 20:38: Reglan) Yovani 00 Benadryl No Notes: Memoria 08-29 (Same as: l 20:38: Benadryl) Yovani Sodium No 1,000 mL, Memori a Chloride 08-29 1,000 l 0.154 20:38: ml/hr, Yovani MEQ/ML 00 Infuse Injectable Over: 1 Solution hr, Route: IV, 1,000, Drug form: INJ, ONCE, Priority: STAT, Dosing Weight 86.364 kg, Start date: 08/29/14 15:38:00, Duration: 1 doses or times, Stop date: 08/29/14 15:38:00 Reglan No Notes: Memoria - (Same as: l 20:38: Reglan) Yovani Vital Signs Vital Name Observation Time Observation Value Comments Source Body height 2019-07-05 11:48:00 172.7 cm [facility] Body weight 2019-07-05 11:48:00 68.04 kg [facility] BMI 2019-07-05 11:48:00 22.81 kg/m2 [facility] Respitory Rate 2019-04-19 21:57:00 Memori al Y[place] Systolic (mm Hg) 2019-04-19 21:57:00 Juan Manuel rial Yovani Diastolic (mm Hg) 2019-04-19 21:57:00 Mem orial [place] Respitory Rate 2019-04-19 21:45:00 Memori al [place] Systolic (mm Hg) 2019-04-19 21:45:00 Juan Manuel rial [place] Diastolic (mm Hg) 2019-04-19 21:45:00 Mem orial [place] Respitory Rate 2019-04-19 21:30:00 Memori al [place] Systolic (mm Hg) 2019-04-19 21:30:00 Juan Manuel rial [place] Diastolic (mm Hg) 2019-04-19 21:30:00 Mem orial Y[place]ani Heart Rate 2019-04-19 18:39:00 [facility] [place] Height 2019-04-19 18:24:00 170.18 cm [facility] [place] Weight 2019-04-19 18:24:00 [facility] [place] BMI Calculated 2019-04-19 18:24:00 Memori al [place] BMI Calculated 2015-08-05 22:10:00 [facility]ori al [place] Height 2015-08-05 22:10:00 172.72 cm [facility] [place] Weight 2015-08-05 22:10:00 [facility] [place] Temperature Oral (F) 2015-08-05 22:10:00 97.7 F [facility] [place] Heart Rate 2015-08-05 22:10:00 [facility] [place] Respitory Rate 2015-08-05 22:10:00 Memori al [place] Systolic (mm Hg) 2015-08-05 22:10:00 Juan Manuel rial Yovani Diastolic (mm Hg) 2015-08-05 22:10:00 Mem orial [place] Respitory Rate 2015-07-01 23:00:00 Memori al [place] Systolic (mm Hg) 2015-07-01 23:00:00 Jua Nmanuel rial Y[place]ani Diastolic (mm Hg) 2015-07-01 23:00:00 Mem orial [place] Respitory Rate 2015-07-01 22:45:00 Memori al [place] Systolic (mm Hg) 2015-07-01 22:45:00 Juan Manuel rial Y[place]ani Diastolic (mm Hg) 2015-07-01 22:45:00 Mem orial [place] Systolic (mm Hg) 2015-07-01 22:15:00 Juan Manuel rial [place] Diastolic (mm Hg) 2015-07-01 22:15:00 Mem orial [place] Respitory Rate 2015-07-01 22:15:00 Memori al [place] Temperature Oral (F) 2015-07-01 12:08:00 98.2 F [facility] [place] Heart Rate 2015-07-01 12:08:00 [facility] [place] BMI Calculated 2015-06-30 18:01:00 [facility] [place] Height 2015-06-30 18:01:00 170.18 cm [facility] Weight 2015-06-30 18:01:00 [facility] Heart Rate 2015-06-17 18:10:00 [facility] Temperature Oral (F) 2015-06-17 18:10:00 98.0 F [facility] Respitory Rate 2015-06-17 18:10:00 [facility] Systolic (mm Hg) 2015-06-17 18:10:00 Juan Manuel [facility] Diastolic (mm Hg) 2015-06-17 18:10:00 [facility] Weight 2015-06-17 16:43:00 [facility] Heart Rate 2015-06-17 16:43:00 [facility] Respitory Rate 2015-06-17 16:43:00 [facility] Systolic (mm Hg) 2015-06-17 16:43:00 Juan Manuel [facility] Diastolic (mm Hg) 2015-06-17 16:43:00 [facility] BMI Calculated 2015-06-17 16:43:00 [facility] Height 2015-06-17 16:43:00 172.72 cm [facility] Temperature Oral (F) 2015-06-17 16:43:00 98.2 F [facility] Systolic (mm Hg) 2014-08-29 23:51:00 Juan Manuel [facility] [place] Diastolic (mm Hg) 2014-08-29 23:51:00 [facility] Temperature Oral (F) 2014-08-29 23:51:00 98.3 F [facility] Heart Rate 2014-08-29 23:51:00 [facility] Respitory Rate 2014-08-29 23:51:00 [facility] Respitory Rate 2014-08-29 22:20:00 [facility] Heart Rate 2014-08-29 22:20:00 [facility] Systolic (mm Hg) 2014-08-29 22:20:00 Juan Manuel [facility] [place] Diastolic (mm Hg) 2014-08-29 22:20:00 Mem orial Yovani Weight 2014-08-29 20:01:00 [facility] BMI Calculated 2014-08-29 20:01:00 Alex al [place] Heart Rate 2014-08-29 20:01:00 [facility] [place] Respitory Rate 2014-08-29 20:01:00 Memesme al Yovani Systolic (mm Hg) 2014-08-29 20:01:00 Juan Manuel toure [place] Diastolic (mm Hg) 2014-08-29 20:01:00 [facility] orial Yovnai Temperature Oral (F) 2014-08-29 20:01:00 98.3 F [facility] Height 2014-08-29 20:01:00 172.72 cm [facility] Procedures Procedure Date / Time Performing Clinician Source Performed SARS-COV2/RT-PCR ([facility] & 2019-10-02 19:28:[address] [facility] - REF LABS[facility] Cholecystectomy 2014-03-13 00:00:00 [facility] Abdominal hysterectomy [facility] CS - section [facility] Plan of Care Planned Activity Planned Date Details Comments Source Future Scheduled 2020-02-[address] [facility] (procedure) [code = Medical Center 03821562] Future Scheduled 2019-11-12 INFLUENZA VACCINE (#1) [facility] [code = INFLUENZA Medical Ce nter VACCINE (#1)] Future Scheduled 2017-08-[address] [address] [facility] - Test 00:[facility]:00 measurement [facility] (procedure) [code = 73085675] Future Scheduled 2016-10-[address] [facility] - Test 00:00:00 WELLNESS (YEAR 2 or Medical Center FIRST YEAR if no IPPE) [code = MEDICARE ANNUAL WELLNESS (YEAR 2 or FIRST YEAR if no IPPE)] Future Scheduled 1992-01-[address] [facility] - Test 00:00:00 malignant neoplasm of [facility] cervix (procedure) [code = 666541473] Future Scheduled [address] DIABETIC EYE EXAM [facility] - Test 00:00:00 [code = DIABETIC EYE Medical Center EXAM] Future Scheduled [address] - Test 00:00:00 examination Medical Center (regime/therapy) [code = 951431245] Future Scheduled 1981 Urine screening for [facility] - Test 00:00:00 [facility] [code = 223099210] Future Scheduled [address] [facility] - Test 00:00:00 0-64 YRS (1 of 1 - Medical C enter PPSV23) [code = PNEUMOCOCCAL VACCINE 0-64 YRS (1 of 1 - PPSV23)] Encounters Start End Encounter Admission Attending Care Care Encounter Source Date/Time Date/Time Type Type Clinicians Facility Department ID 2019-04-19 2019-04-19 Outpatient Sheyla Albarado [facility] [id number] 11:35:00 23:59:00 [facility] 2019-04-19 2019-04-19 Outpatient Sheyla Albarado [facility] [id number] 11:35:00 23:59:00 [facility] 2019-04-19 2019-04-19 Outpatient [facility] [id number] [facility] 11:35:00 11:35:00 2016-05-18 2016-05-18 Outpatient Ryan, MHOIP MHOIP [id number] 10:22:00 23:59:00 Casey M 00 2016-05-18 2016-05-18 Outpatient Ryan, MHOIP MHOIP [id number] 10:22:00 23:59:00 Casey M 00 2015-08-05 2015-08-05 Outpatient Sarah, Latia [facility] [id number] 17:05:00 17:42:00 Alexander 2015-08-05 2015-08-05 Outpatient Sarah, Latia [facility] [id number] 17:05:00 17:42:00 Alexander 2015-07-01 2015-07-01 Outpatient Kelvin, MHSE MHSE [id number] 08:00:00 18:10:00 Alexandre [facility] 2015-07-01 2015-07-01 Outpatient Kelvin, MHSE MHSE [id number] 08:00:00 18:10:00 Alexandre [facility] 2015-06-17 2015-06-17 [id number] 11:33:00 13:32:00 Woody Gan 2015-06-17 2015-06-17 [facility] [id number] 11:33:00 13:32:00 Woody Gan 2014-08-29 2014-08-29 Outpatient TYSON Pulliam FREDDY [id number] 14:56:00 19:32:00 Kizzy 00 Harsad 2014-08-29 2014-08-29 Outpatient TYSON Pulliam FREDDY [id number] 14:56:00 19:32:00 Kizzy 00 [facility] Results Test Description Test Time Test Comments Results Result Comments Source SARS-CoV2/RT-PCR ([facility] & Ref Labs) 2019-10-03 11:15:00 Test Item Value Reference Range Interpretation Comme nts SARS-COV2/RT-PCR (test code = Positive [place], [place] 05561-5) Negative, See external report for linked test SARS-COV-2 PERFORMING LAB [facility] STEFAN (test code = 22147-8) YEHUDA (test code = YEHUDA) Results are for the detection of SARS-CoV-2 RNA. The SARS-CoV-2 RNA is generally detectable [...] of the Act. Fact Sheet for Healthcare Providers:https://www.CytRx/sites/default/files/pro duct/documents/Fact_Sheet_HC _Jilohkoxe_Jpmr_WKCQ-QaP-7.p df Fact Sheet for Healthcare Patients:https://www.CloudFX/sites/default/files/prod uct/documents/Fact_Sheet_Pat kzukd_Nogc_RGEP-LkI-7.pdf Performing Laboratory:[facility] [place] [address] Lab Interpretation (test code Abnormal = 31232-1) [facility] & REF LABS)2019-10-03 11:15:00 Test Item Value Reference Range Interpretation Comments SARS-COV2/RT-PCR (test Positive Not Detected, Negative, AA code = 4247794) See external report for linked test SARS-COV-2 PERFORMING LAB [facility] (test code = 3150235) Results are for the detection of SARS-CoV-2 RNA. The SARS-CoV-2 RNA is generally detectable [...] do not rule out bacterial infection or co- infection with other viruses. The agent detected may not be the definite cause of disease.The limit of detection for this assay is 800 copies/mL.This SARS CoV- 2 test is a real-time RT-PCR test intended for the qualitative detection of nucleic acid from SARS-CoV-2 in a nasopharyngeal swab specimen collected from individuals suspected of COVID-19 by their healthcare provider.This test has not been Food and Drug [...] is revoked under Section 564(g) of the Act.Fact Sheet for Healthcare Providers:https://www.[employer].Pix4D/sites/default/files/product/d ocuments/Oqon_Kwwxm_QY_Efhnmcntf_Zfok_TTEA-NoQ-3.pdfFact Sheet for Healthcare Patients:https://www.[employer]/sites/default/files/product/documents/Fact_Sheet_Patients_Lyra_SARS-CoV -2.pdfPerforming Laboratory:[facility] [place], [place] [id number] 18:35:004.7[facility] [id number] 18:35:004.7[facility] HermannBlood Gas+Lytes+Glu+Ca+Hgb+Hct+[id number] 12:22:00 Test Item Value Reference Range Interpretation Comments pH, Blood Gas (test code 7.384 pH Units 7.350-7.450 N = BGPH) pCO2 (test code = PCO2) 48.2 mm Hg 15-125 N pO2 (test code = PO2) 27.6 mm Hg 30-420 LL Bicarbonate (test code = 28.7 mmol/L 22.0-26.0 HH HCO3) Base Excess (test code = 2.9 mmol/L BE) O2 Saturation (test code 45.9 % 20.0-100.0 N % O 2SAT is not a = O2SAT) reliable measurement of the patient's oxygenation.Ref er ence range not established for this test. Sodium, Blood Gas (test 143 mmol/L 135-145 N code = BGNA) Potassium, Blood Gas 4.7 mmol/L 3.5-4.5 H (test code = BGK) Chloride, Blood Gas 103 98-105 N (test code = BGCL) Calcium, Ionized, Blood 1.25 mmol/L 1.00-1.50 N Gas (test code = BGCAI) Glucose, Blood Gas (test 98 mg/dL 75-115 N code = BGGLU) tHB (test code = RTHB) 12.2 gm/dL 7.0-25.0 N Hematocrit, Blood Gas 37.4 % 34.0-52.0 N (test code = BGHCT) O2Hb (test code = RO2HB) 45 80-100 L Carboxyhemoglobin (test 1.9 % 0.0-20.0 N code = CARHGB) Methemoglobin (test code 1.1 % 0.0-20.0 N = METHGB) FIO2 % (test code = 21 % FIO2) Patient Temperature 37.0 Degrees (test code = PTTEMP) Celcius Puncture Site (test code Other = PUNSITE) Drawing Tech ID (test srussell code = DRAWTECH) iPAP (test code = IPAP) 0 cmH2O Respiratory Rate (test 0 code = RESP RATE) Lactic Acid, Blood Gas 0.7 mmol/L (test code = BGLA) HEMOGLOBIN [id number] 08:30:00 Test Item Value Reference Range Interpretation Comments HEMOGLOBIN A1C ([facility]) (test code = 5.3 % 4.3-6.1 368) POCT-GLUCOSE [id number] 07:28:00 Test Item Value Reference Range Interpretation Comments POC-GLUCOSE METER 78 mg/dL 70-110 TESTED AT [place] [address] ([facility]) (test code = TANISHA Hutson [place] [address] 1538) POCT-GLUCOSE [id number] 20:51:00 Test Item Value Reference Range Interpretation Comments POC-GLUCOSE METER 49 mg/dL 70-110 L Will Repea t Test/TESTED ([facility]) (test code = AT [facility] [address] [place] [address] 1538) [facility] 7703 0 POCT-GLUCOSE [id number] 18:20:00 Test Item Value Reference Range Interpretation Comments POC-GLUCOSE METER 188 mg/dL 70-110 H TESTED AT [place] [address] ([facility]) (test code = TANISHA Hutson [place] [address]98) [address] T4, [id number] 17:50:00 Test Item Value Reference Range Interpretation Comments FREE T4 ([facility]) (test code = 655) 1.31 ng/dL 0.70-1.48 SEDIMENTATION [id number] 17:38:00 Test Item Value Reference Range Interpretation Comments SEDIMENTATION RATE, ERYTHROCYTE 103 mm/HR 0-20 H ([facility]) (test code = 766) TSH/FREE T4 IF [id number] 16:25:00 Test Item Value Reference Range Interpretation Comments THYROID STIMULATING HORMONE 0.30 uIU/mL 0.35-4.94 L (BEAKER) (test code = 772) CREATINE KINASE (CK), TOTAL AND [id number] 16:08:00 Test Item Value Reference Range Interpretation Comments CREATINE KINASE TOTAL (BEAKER) 111 U/L 29-200 (test code = 380) CREATINE KINASE-MB (BEAKER) (test 4.8 ng/mL 0.0-6.6 code = 750) CREATINE KINASE-MB INDEX (BEAKER) 4.3 % (test code = 395) CK-MB Reference Range:<6.7 Normal6.7-10.0 Borderline>10.0 AbnormalTROPONIN [id number] 16:08:00 Test Item Value Reference Range Interpretation [...] 395) CK-MB Reference Range:<6.7 Normal6.7-10.0 Borderline>10.0 AbnormalTROPONIN [id number] 16:07:00 Test Item Value Reference Range Interpretation [...] failure, acidosis, acute neurological disease, and persistent tachyarrhythmia.[id number] 15:59:00 Test Item Value Reference Range Interpretation Comments PHOSPHORUS (BEAKER) (test code = 5.1 mg/dL 2.3-4.7 H 604) LIPID [id number] 15:59:00 Test Item Value Reference Range Interpretation [...] 130-159 High 160-189 Very High >=190HEPATIC FUNCTION [id number] 15:59:00 Test Item Value Reference Range Interpretation [...] code = 10 U/L 6-55 347) C-REACTIVE [id number] 15:59:00 Test Item Value Reference Range Interpretation Comments C-REACTIVE PROTEIN (BEAKER) (test 0.52 mg/dL 0.00-0.50 H code = 676) BASIC METABOLIC [id number] 15:59:00 Test Item Value Reference Range Interpretation [...] PATIEN TS. CBC W/PLT COUNT & AUTO [id number] 15:16:00 Test Item Value Reference Range Interpretation [...] PERCENT (BEAKER) (test code = 2801) PROTHROMBIN [id number] 15:08:00 Test Item Value Reference Range Interpretation Comments PROTIME (BEAKER) (test code = 16.0 seconds 11.7-14.7 H 759) INR (BEAKER) (test code = 370) 1.3 <=5.9 RECOMMENDED COUMADIN/WARFARIN INR THERAPY RANGESSTANDARD DOSE: 2.0 - 3.0 Includes: PROPHYLAXIS forvenous thrombosis, systemic embolization; TREATMENT for venous thrombosis and/or pulmonary embolus.HIGH RISK: Target INR is 2.5-3.5 for patients with mechanical heart valves.POCT-GLUCOSE [id number] 12:04:00 Test Item Value Reference Range Interpretation Comments POC-GLUCOSE METER 187 mg/dL 70-110 H TESTED AT [facility] 67[facility] (test code = TANISHA BYRD 1538) [address] POCT-GLUCOSE [id number] 09:11:00 Test Item Value Reference Range Interpretation Comments POC-GLUCOSE METER 83 mg/dL 70-110 TESTED AT [facility] 6720 (BEAKER) (test code = [place] [address] 1538) MR, BRAIN, WITHOUT [id number] 00:47:00PT started dialysis 07/12/2015Reason for exam:->Sudden onset [...] MDReport Verified Date/Time: 02/23/2017 00:47:16 Reading Location: [address] Body Reading Room AFB CULTURE + [id number] 07:45:00 Test Item Value Reference Range Interpretation Comments CULTURE (BEAKER) (test No acid-fast bacilli code = 1095) isolated in 42 days AFB SMEAR (BEAKER) No acid fast bacilli (test code = 994) seen AFB CULTURE + [id number] 07:45:00 Test Item Value Reference Range Interpretation Comments CULTURE (BEAKER) (test No acid-fast bacilli code = 1095) isolated in 42 days AFB SMEAR (BEAKER) No acid fast bacilli (test code = 994) seen FUNGUS CULTURE + [id number] 18:17:00 Test Item Value Reference Range Interpretation Comments CULTURE (BEAKER) (test No fungus isolated in code = 1095) 28 days FUNGUS SMEAR (BEAKER) No fungi seen (test code = 1406) FUNGUS CULTURE + [id number] 18:17:00 Test Item Value Reference Range Interpretation Comments CULTURE (BEAKER) (test No fungus isolated in code = 1095) 28 days FUNGUS SMEAR (BEAKER) No fungi seen (test code = 1406) AFB CULTURE + [id number] 14:52:00 Test Item Value Reference Range Interpretation Comments CULTURE (BEAKER) (test No acid-fast bacilli code = 1095) isolated in 42 days AFB SMEAR (BEAKER) No acid fast bacilli (test code = 994) seen AB SPECIFICITY CLASS [id number] 10:13:00 Test Item Value Reference Range Interpretation Comments DATE OF SERUM (BEAKER) (test code = 203323 9491) SERUM # (BEAKER) (test code = 2290) 230952 AB SPECIFICITY CLASS I (BEAKER) (test code = 2429) AB SPECIFICITY CLASS [id number] 10:13:00 Test Item Value Reference Range Interpretation Comments DATE OF SERUM (BEAKER) 551866 (test code = 2289) SERUM # (BEAKER) (test 168168 code = 2290) AB SPECIFICITY CLASS II See Scanned Report (BEAKER) (test code = 2430) HERPES VIRUS ANTIBODY, [id number] 14:21:00 Test Item Value Reference Range Interpretation Comments HERPES VIRUS IGM Negative HSV 1 IGM = NEGHSV 2 (BEAKER) (test code = IGM = NEG 1808) TOXOPLASMA GONDII ANTIBODY, [id number] 14:21:00 Test Item Value Reference Range Interpretation Comments TOXOPLASMA IGM ANTIBODY (BEAKER) Negative (test code = 742) FLOW PRA CLASS I AND [id number] 15:15:00 Test Item Value Reference Range Interpretation Comments DATE OF SERUM (BEAKER) 104683 (test code = 2289) SERUM # (BEAKER) (test 114242 code = 2290) FLOW PRA CLASS I AND II See Scanned Report (test code = 2421) VARICELLA ZOSTER ANTIBODY, [id number] 14:59:00 Test Item Value Reference Range Interpretation Comments VARICELLA ZOSTER IGG (AL) (MARYANNE) 5.8 Al (test code = 3197) VARICELLA ZOSTER RESULT INTERPRETATIONS: <=0.8 Al Nonreactive: Presumed non-immune to VZV 0.9-1.0 Al Equivocal >=1.1 Al Reactive: Presumed immune to VZVCT, [id number] 14:16:00PT started dialysis 07/12/2015Addendum BeginsREPORT STATUS:A The original report incorrectly states that the procedure was performed with intravenous contrast. In fact, the procedure was performed without intravenous contrast. Signed: Joann Diaz MDReport Verified Date/Time: 01/13/2017 14:16:42 ReadingLocation: [facility] B1 C013X Ortho Consult Reading RoomAddendum EndsFINAL [...] in open part of wound. Signed: Joann Diazeport Verified Date/Time: 01/06/2017 23:49:19 Reading Location: [facility] C779ZIcwnxqk Reading Room CT, CHEST, WITHOUT [id number] 14:16:00PT started dialysis 07/12/2015Addendum BeginsREPORT STATUS:A The original report incorrectly states that the procedure was performed with intravenous contrast. In fact, the procedure was performed without intravenous contrast. Signed: Joann Diaz Verified Date/Time: 01/13/2017 14:16:42 ReadingLocation: [facility] C013X Ortho Consult Reading RoomAddendum EndsFINAL REPORT [...] MDReport Verified Date/Time: 01/06/2017 23:49:19 Reading Location: [facility] [id number] Reading [facility] MET[facility]OL[facility] [id number] 14:06:00 Test Item Value Reference Range Interpretation [...] S NOT APPLICABLE FOR DIALYSIS PATIEN TS. [id number] 14:04:00 Test Item Value Reference Range Interpretation Comments MAGNESIUM (BEAKER) (test code = 1.7 mg/dL 1.6-2.6 627) PROTHROMBIN [id number] 13:52:00 Test Item Value Reference Range Interpretation [...] 150-450 code = 756) MEAN PLATELET VOLUME ([facility]) 11.2 fL 9.4-12.3 (test code = 754) NUCLEATED RED BLOOD CELLS 0 /100 WBC 0-0 ([facility]) (test code = 413) POCT-GLUCOSE [id number] 07:33:00 Test Item Value Reference Range Interpretation Comments POC-GLUCOSE METER 82 mg/dL 70-110 TESTED AT [place] [address] ([facility]) (test [facility] = [facility] [address] 1538) POCT-GLUCOSE [id number] 22:10:00 Test Item Value Reference Range Interpretation Comments POC-GLUCOSE METER 118 mg/dL 70-110 H TESTED AT [place] [address] ([facility]) (test code = [facility] Caryl [facility] 1538) [address] POCT-GLUCOSE [id number] 16:58:00 Test Item Value Reference Range Interpretation Comments POC-GLUCOSE METER 102 mg/dL 70-110 TESTED AT [place] [address] ([facility]) (test code = [facility] 1538) [address] POCT-GLUCOSE [id number] 07:43:00 Test Item Value Reference Range Interpretation Comments POC-GLUCOSE METER 93 mg/dL 70-110 TESTED AT [place] [address] ([facility]) (test code = [facility] [address] 1538) POCT-GLUCOSE [id number] 21:58:00 Test Item Value Reference Range Interpretation Comments POC-GLUCOSE METER 130 mg/dL 70-110 H TESTED AT [place] [address] ([facility]) (test code = [facility] 1538) [address] POCT-GLUCOSE [id number] 17:59:00 Test Item Value Reference Range Interpretation Comments POC-GLUCOSE METER 144 mg/dL 70-110 H TESTED AT [place] [address] ([facility]) (test code = [facility] 1538) [address] CYTOMEGALOVIRUS ANTIBODY, [id number] 15:45:00 Test Item Value Reference Range Interpretation Comments CYTOMEGALOVIRUS IGG ANTIBODY Negative ([facility]) (test code = 790) CYTOMEGALOVIRUS ANTIBODY, [id number] 15:45:00 Test Item Value Reference Range Interpretation Comments CYTOMEGALOVIRUS IGM ANTIBODY Negative ([facility]) (test code = 816) HERPES VIRUS ANTIBODY, [id number] 15:45:00 Test Item Value Reference Range Interpretation Comments HERPES VIRUS IGG Positive HSV 1 IGG = POSHSV 2 (BEAKER) (test code = IGG = POS 1807) EBV-VCA ANTIBODY, [id number] 15:45:00 Test Item Value Reference Range Interpretation Comments GIO-NICK VCA IGG (BEAKER) (test Positive code = 983) EBV-VCA ANTIBODY, [id number] 15:45:00 Test Item Value Reference Range Interpretation Comments GIO-NICK VCA IGM (BEAKER) (test Negative code = 984) TOXOPLASMA GONDII ANTIBODY, [id number] 15:45:00 Test Item Value Reference Range Interpretation Comments TOXOPLASMA GONDII IGG (BEAKER) (test Negative code = 419) POCT-GLUCOSE [id number] 14:27:00 Test Item Value Reference Range Interpretation Comments POC-GLUCOSE METER 108 mg/dL 70-110 TESTED AT [facility] 6720 (AKER) (test code = [place] 1538) [address] IMMUNOFIXATION ELECTROPHORESIS (YOANNA)2017-01-11 13:52:00 Test Item Value Reference Range Interpretation Comments IMMUNOGLOBULIN G (IGG) 2035 mg/dL 540-1822 H (BEAKER) (test code = 427) IMMUNOGLOBULIN A (IGA) 148 mg/dL 63-484 (BEAKER) (test code = 639) IMMUNOGLOBULIN M (IGM) 125 mg/dL 22-293 (BEAKER) (test code = 638) SERUM YOANNA ID (BEAKER) Polyclonal (test code = 1814) distribution of immunoglobulins; no monoclonal proteins detected. Small band seen on SPEP, therefore, is likely due to presence of fibrinogen in the sample. [id number] Pat Pinzon, (BEAKER) (test code = (electronic 9377) signature) Do not collect, specimen already in lab.BASIC METABOLIC [id number] 09:44:00 Test Item Value Reference Range Interpretation [...] S NOT APPLICABLE FOR DIALYSIS PATIEN TS. [id number] 09:20:00 Test Item Value Reference Range Interpretation Comments MAGNESIUM (BEARNAV) (test code = 1.8 mg/dL 1.6-2.6 627) POCT-GLUCOSE [id number] 09:18:00 Test Item Value Reference Range Interpretation Comments POC-GLUCOSE METER 100 mg/dL 70-110 TESTED AT [facility] 6720 ([facility]) (test code = TANISHA Hutson [place] 1538) [address] PROTHROMBIN [id number] 08:51:00 Test Item Value Reference Range Interpretation Comments PROTIME (BEARNAV) (test code = 15.1 seconds 11.7-14.7 H 759) INR (BEAKER) (test code = 370) 1.2 <=5.9 RECOMMENDED COUMADIN/WARFARIN INR THERAPY RANGESSTANDARD DOSE: 2.0 - 3.0 Includes: PROPHYLAXIS forvenous thrombosis, systemic embolization; TREATMENT for venous thrombosis and/or pulmonary embolus.HIGH RISK: Target INR is 2.5-3.5 for patients with mechanical heart valves.While on warfarin.HGB/HCT (H&H) - STAT [id number] 08:44:00 Test Item Value Reference Range Interpretation Comments HEMOGLOBIN (BEAKER) (test code = 8.0 g/dL 12.0-15.0 L 410) HEMATOCRIT (BEAKER) (test code = 24.0 % 36.0-45.0 L 411) POCT-GLUCOSE [id number] 23:05:00 Test Item Value Reference Range Interpretation Comments POC-GLUCOSE METER 108 mg/dL 70-110 TESTED AT [place] [address] ([facility]) (test code = [facility] 1538) [address] POCT-GLUCOSE [id number] 17:36:00 Test Item Value Reference Range Interpretation Comments POC-GLUCOSE METER 133 mg/dL 70-110 H TESTED AT [place] [address] ([facility]) (test code = [facility] 1538) [address] POCT-GLUCOSE [id number] 12:31:00 Test Item Value Reference Range Interpretation Comments POC-GLUCOSE METER 115 mg/dL 70-110 H TESTED AT [place] [address] ([facility]) (test code = [facility] Caryl [facility] 1538) [address] FUNGUS CULTURE + [id number] 12:30:00 Test Item Value Reference Range Interpretation Comments CULTURE ([facility]) (test No fungus isolated in code = 1095) 28 days FUNGUS SMEAR ([facility]) No fungi seen (test code = 1406) POCT-GLUCOSE [id number] 08:30:00 Test Item Value Reference Range Interpretation Comments POC-GLUCOSE METER 99 mg/dL 70-110 TESTED AT [place] [address] ([facility]) (test code = [facility] Caryl [facility] [address] 1538) POCT-GLUCOSE [id number] 00:16:00 Test Item Value Reference Range Interpretation Comments POC-GLUCOSE METER 106 mg/dL 70-110 TESTED AT [place] [address] ([facility]) (test code = [facility] Caryl [facility] 1538) [address] POCT-GLUCOSE [id number] 22:21:00 Test Item Value Reference Range Interpretation Comments POC-GLUCOSE METER 88 mg/dL 70-110 TESTED AT [place] [address] ([facility]) (test code = [facility] Caryl [facility] [address] 1538) POCT-GLUCOSE [id number] 14:36:00 Test Item Value Reference Range Interpretation Comments POC-GLUCOSE METER 119 mg/dL 70-110 H TESTED AT [place] [address] ([facility]) (test code = [facility] 1538) [address] PROTEIN ELECTROPHORESIS, [id number] 13:56:00 Test Item Value Reference Range Interpretation Comments ALBUMIN FRACTION 2.0 g/dL 3.5-5.5 L ([facility]) (test code = 405) ALPHA 1 FRACTION [...] monoclonal gammopathy. Refer to serum immunofixation electrophoresis. [id number] Anne Yen MD (BEAKER) (test code (electronic signature) = 8666) PROTEIN TOTAL SERUM, 5.7 gm/dL 6.0-8.3 L SPEP (BEAKER) (test code = 1527) Do not collect, specimen already in lab.POTASSIUM-STAT [id number] 10:33:00 Test Item Value Reference Range Interpretation Comments POTASSIUM (BEAKER) (test code = 4.9 meq/L 3.6-5.5 379) GLUCOSE-STAT [id number] 10:33:00 Test Item Value Reference Range Interpretation Comments GLUCOSE RANDOM (BEAKER) (test code 129 mg/dL 70-110 H = 652) HGB/HCT (H&H) - STAT [id number] 10:33:00 Test Item Value Reference Range Interpretation Comments HEMOGLOBIN (BEAKER) (test code = 12.3 g/dL 12.0-15.0 410) HEMATOCRIT (BEAKER) (test code = 36.0 % 36.0-45.0 411) HGB/HCT (H&H) - STAT [id number] 07:59:00 Test Item Value Reference Range Interpretation Comments HEMOGLOBIN (BEAKER) (test code = 8.5 g/dL 12.0-15.0 L 410) HEMATOCRIT (BEAKER) (test code = 25.0 % 36.0-45.0 L 411) BASIC METABOLIC [id number] 07:16:00 Test Item Value Reference Range Interpretation [...] S NOT APPLICABLE FOR DIALYSIS PATIEN TS. [id number] 07:10:00 Test Item Value Reference Range Interpretation Comments MAGNESIUM (BEAKER) (test code = 2.0 mg/dL 1.6-2.6 627) POCT-GLUCOSE [id number] 06:47:00 Test Item Value Reference Range Interpretation Comments POC-GLUCOSE METER 113 mg/dL 70-110 H TESTED AT [facility] 6720 [facility] (test code = [place] 1538) [address] [id number] 02:25:00 Test Item Value Reference Range Interpretation Comments PARTIAL THROMBOPLASTIN TIME 67.7 seconds 22.5-36.0 H (BEAKER) (test code = 760) POCT-GLUCOSE [id number] 18:18:00 Test Item Value Reference Range Interpretation Comments POC-GLUCOSE METER 138 mg/dL 70-110 H TESTED AT [facility] 6720 (BEAKER) (test code = [place] 1538) [address] [id number] 17:24:00 Test Item Value Reference Range Interpretation [...] 2.5-3.5 for patients with mechanical heart valves.ANAEROBIC [id number] 14:23:00 Test Item Value Reference Range Interpretation Comments CULTURE (BEAKER) (test No anaerobes isolated code = 1095) ANAEROBIC [id number] 14:23:00 Test Item Value Reference Range Interpretation Comments CULTURE (BEAKER) (test No anaerobes isolated code = 1095) POCT-GLUCOSE [id number] 12:45:00 Test Item Value Reference Range Interpretation Comments POC-GLUCOSE METER 126 mg/dL 70-110 H TESTED AT [facility] 6720 (BEAKER) (test code = [place] 1538) [address] SURGICALLY OBTAINED CULTURE + GRAM [id number] 11:41:00 Test Item Value Reference Range Interpretation Comments CULTURE A From Broth Only Same (BEAKER) (test organism has been code = 1095) isolated from cultures(s) of the same body site and collection date . Repeat identifi cation and susceptibil ity testing perform ed only after consultat ion with the [facility] microbiology laboratory.Refe r to previous cultur e ofCoagulase neg ative Staphylococcus GRAM STAIN <1+ WBCs RESULT (BEAKER) (test code = 1123) GRAM STAIN No organisms seen RESULT (BEAKER) (test code = 129048) SURGICALLY OBTAINED CULTURE + GRAM [id number] 11:38:00 Test Item Value Reference Interpretation Comments [...] No organisms (BEAKER) (test code = seen 724313) [id number] 10:08:00 Test Item Value Reference Range Interpretation [...] 2.5-3.5 for patients with mechanical heart valves.POCT-GLUCOSE [id number] 08:24:00 Test Item Value Reference Range Interpretation Comments POC-GLUCOSE METER 97 mg/dL 70-110 TESTED AT [facility] 67[facility] (test code = [place] [address] 1538) [id number] 07:39:00 Test Item Value Reference Range Interpretation Comments PARTIAL THROMBOPLASTIN TIME 192.0 seconds 22.5-36.0 HH (BEAKER) (test code = 760) [id number] 07:37:00 Test Item Value Reference Range Interpretation Comments MAGNESIUM (BEAKER) (test code = 1.7 mg/dL 1.6-2.6 627) BASIC METABOLIC [id number] 07:37:00 Test Item Value Reference Range Interpretation [...] mg/dL 8.4-10.2 (test code = 697) EGFR ([facility]) (test 10 mL/min/1.73 ESTIMA PALOMA GFR IS code = 1092) sq m NOT ACCURATE CREATININE CLEARANCE IN PREDICTING GLOMERULAR FILTRATION RATE . ESTIMATED GFR I S NOT APPLICABLE FOR DIALYSIS PATIEN TS. [id number] 23:25:00 Test Item Value Reference Range Interpretation Comments PARTIAL THROMBOPLASTIN TIME 97.8 seconds 22.5-36.0 H ([facility]) (test code = 760) POCT-GLUCOSE [id number] 22:52:00 Test Item Value Reference Range Interpretation Comments POC-GLUCOSE METER 98 mg/dL 70-110 TESTED AT [facility] 67 ([facility]) (test code = [facility] [address] 1538) POCT-GLUCOSE [id number] 17:43:00 Test Item Value Reference Range Interpretation Comments POC-GLUCOSE METER 86 mg/dL 70-110 TESTED AT [place] [address] ([facility]) (test code = [facility] [address] 1538) [id number] 15:59:00 Test Item Value Reference Range Interpretation Comments PARTIAL THROMBOPLASTIN TIME 62.8 seconds 22.5-36.0 H ([facility]) (test code = 760) POCT-GLUCOSE [id number] 14:50:00 Test Item Value Reference Range Interpretation Comments POC-GLUCOSE METER 115 mg/dL 70-110 H TESTED AT [facility] 67 ([facility]) (test code = [facility] 1538) [address] [id number] 14:00:00 Test Item Value Reference Range Interpretation Comments PARTIAL THROMBOPLASTIN TIME 113.6 seconds 22.5-36.0 H ([facility]) (test code = 760) VANCOMYCIN LEVEL, [id number] 13:10:00 Test Item Value Reference Range Interpretation Comments VANCOMYCIN RANDOM ([facility]) (test 33.9 ug/mL code = 523) Reference Range: No NormalsTROPONIN [id number] 12:52:00 Test Item Value Reference Range Interpretation Comments TROPONIN I ([facility]) (test code = 0.09 ng/mL 0.00-0.03 H [...] acidosis, acute neurological disease, and persistent tachyarrhythmia.POCT-GLUCOSE [id number] 12:19:00 Test Item Value Reference Range Interpretation Comments POC-GLUCOSE METER 87 mg/dL 70-110 TESTED AT [facility] 6720 ([facility]) (test code = TANISHA Hutson [facility] [address] 1538) POCT-GLUCOSE [id number] 08:36:00 Test Item Value Reference Range Interpretation Comments POC-GLUCOSE METER 62 mg/dL 70-110 L Notified Caryl Powers MD/TESTED AT ([facility]) (test code = [facility] 67 RAJINDER 1538) [facility] [address] ANTI-NUCLEAR ANTIBODY ([place])2017-01-07 06:33:00 Test Item Value Reference Range Interpretation Comments ANTI-NUCLEAR ANTIBODY ([place]) (BEAKER) Positive Negative A (test code = 418) [place] TITER AND [id number] 06:33:00 Test Item Value Reference Range Interpretation Comments [place] TITER (BEAKER) (test code = 1541) :640 [place] PATTERN (BEAKER) (test code = SSA/RO 1781) TROPONIN [id number] 03:35:00 Test Item Value Reference Range Interpretation [...] acute neurological disease, and persistent tachyarrhythmia.BASIC METABOLIC [id number] 03:28:00 Test Item Value Reference Range Interpretation [...] S NOT APPLICABLE FOR DIALYSIS PATIEN TS. [id number] 03:27:00 Test Item Value Reference Range Interpretation Comments MAGNESIUM (BEAKER) (test code = 1.9 mg/dL 1.6-2.6 627) [id number] 03:24:00 Test Item Value Reference Range Interpretation Comments PARTIAL THROMBOPLASTIN TIME 111.9 seconds 22.5-36.0 H (BEAKER) (test code = 760) [id number] 00:18:00 Test Item Value Reference Range Interpretation Comments RPR SCREEN (BEAKER) (test code = Nonreactive Nonreactive 420) BLOOD [id number] 00:00:00 Test Item Value Reference Range Interpretation Comments CULTURE (BEAKER) (test No growth in 5 days code = 1095) BLOOD [id number] 00:00:00 Test Item Value Reference Range Interpretation Comments CULTURE (BEAKER) (test No growth in 5 days code = 1095) CT, BRAIN, WITHOUT [id number] 23:31:00PT started dialysis 07/12/2015 FINAL REPORT Clinical [...] Nuno MDReportVerified Date/Time: 01/06/2017 23:31:20 Reading Location: [facility] B1 [id number] Ortho Consult Reading Room POCT-GLUCOSE [id number] 22:02:00 Test Item Value Reference Range Interpretation Comments POC-GLUCOSE METER 99 mg/dL 70-110 TESTED AT [facility] 6720 ([facility]) (test code = [facility] [address] 1538) [id number] 18:44:00 Test Item Value Reference Range Interpretation Comments PARTIAL THROMBOPLASTIN TIME 94.9 seconds 22.5-36.0 H ([facility]) (test code = 760) HEPATITIS A ANTIBODY, [id number] 18:03:00 Test Item Value Reference Range Interpretation Comments HEPATITIS A IGG ANTIBODY ([facility]) Reactive Nonreactive A (test code = 2797) HIV-1 ANTIGEN WITH HIV-1/2 [id number] 17:58:00 Test Item Value Reference Range Interpretation Comments HIV-1 ANTIGEN WITH HIV 1\\T\\2 Nonreactive Nonreactive ANTIBODY (2) ([facility]) (test code = 2586) POCT-GLUCOSE [id number] 17:55:00 Test Item Value Reference Range Interpretation Comments POC-GLUCOSE METER 89 mg/dL 70-110 TESTED AT [facility] 6720 ([facility]) (test code = [facility] [address] 1538) ANG, TUNNELED DIALYSIS CATH [id number] 17:45:00PT started dialysis 07/12/2015Reason for exam:->needs meterman HD access, please d/c bradley after PC [...] Physician intra- service time was 20 minutes. Hand Welt Butter: Richard. Knot Tying Operator: Rolf. Approach: Right internal jugular vein [...] needle into the right atrium. A 4 Irish micropuncture sheath was placed. A subcutaneous tunnel was created in the right anterior chest wall by blunt dissection. A 19 cm 15.5 Irish Duraflow 2 catheter was brought through the [...] guidance and conscious sedation. Signed: Jerrod Ramírez [facility] Verified Date/Time: 01/06/2017 17:45:51 Reading Location: [address] Ultrasound Reading Room [id number] 17:37:00 Test Item Value Reference Range Interpretation Comments PARTIAL THROMBOPLASTIN TIME > seconds 22.5-36.0 HH (MARYANNE) (test code = 760) U/S, RENAL, [id number] 17:29:00PT started dialysis 07/12/2015Reason for exam:->heart transplant [...] seen in medical renal disease. Signed: Jerrod Ramírezgeetha Verified Date/Time: 01/06/2017 17:29:12 Reading Location: [address] Ultrasound Reading Room TROPONIN [id number] 17:04:00 Test Item Value Reference Range Interpretation [...] failure, acidosis, acute neurological disease, and persistent tachyarrhythmia.[id number] 16:54:00 Test Item Value Reference Range Interpretation Comments FERRITIN (BEAKER) (test code = 361) 216 ng/mL 5-275 VITAMIN D, [id number] 16:48:00 Test Item Value Reference Range Interpretation Comments VITAMIN D 25-OH (BEAKER) (test code 6.4 ng/mL 6.6-49.9 L = 2764) Effective 12/21/2016: Reference Range ChangeNew: 6.6-49.9 ng/mL Previous: 13.0-47.8 ng/mLRecommended Vitamin D Target Range: 30.0-40.0 ng/mLT4, FREE 2017-01-06 16:43:00 Test Item Value Reference Range Interpretation Comments FREE T4 (BEAKER) (test code = 655) 1.56 ng/dL 0.70-1.48 H [id number] 16:43:00 Test Item Value Reference Range Interpretation Comments THYROID STIMULATING HORMONE 0.98 uIU/mL 0.35-4.94 (BEAKER) (test code = 772) [id number] 16:22:00 Test Item Value Reference Range Interpretation Comments TRANSFERRIN (BEAKER) (test code = 122 mg/dL 174-382 L 541) [id number] 16:13:00 Test Item Value Reference Range Interpretation Comments PREALBUMIN (BEAKER) (test code = 14 mg/dL 14-45 586) IRON, [id number] 16:13:00 Test Item Value Reference Range Interpretation Comments IRON (BEAKER) (test code = 547) 23 ug/dL 40-160 L TROPONIN [id number] 15:31:00 Test Item Value Reference Range Interpretation [...] failure, acidosis, acute neurological disease, and persistent tachyarrhythmia.[id number] 15:30:00 Test Item Value Reference Range Interpretation Comments CREATININE (BEAKER) 6.49 mg/dL 0.57-1.25 H (test code = 358) EGFR (BEAKER) (test 8 mL/min/1.73 ESTIMAT ED GFR IS code = 1092) sq m NOT ACCURATE CREATININE CLEARANCE IN PREDICTING GLOMERULAR FILTRATION RATE . ESTIMATED GFR I S NOT APPLICABLE FOR DIALYSIS PATIEN TS. URIC [id number] 15:25:00 Test Item Value Reference Range Interpretation Comments URIC ACID (BEAKER) (test code = 3.3 mg/dL 2.6-7.2 773) LIPID [id number] 15:25:00 Test Item Value Reference Range Interpretation [...] 100-129 Borderline 130-159 High 160-189 Very High >=[id number] 15:25:00 Test Item Value Reference Range Interpretation Comments AMYLASE (BEAKER) (test code = 349) 60 U/L 25-125 GAMMA GLUTAMYL TRANSFERASE (GGT)2017-01-06 15:25:00 Test Item Value Reference Range Interpretation Comments GAMMA GLUTAMYL TRANSFERASE (BEAKER) 15 U/L 9-64 (test code = 364) [id number] 15:25:00 Test Item Value Reference Range Interpretation Comments LIPASE (BEAKER) (test code = 749) 46 U/L 8-78 RETICULOCYTE [id number] 15:07:00 Test Item Value Reference Range Interpretation Comments RETICULOCYTE COUNT PCT (BEAKER) (test 1.2 % 0.5-1.7 code = 575) POCT-GLUCOSE [id number] 09:33:00 Test Item Value Reference Range Interpretation Comments POC-GLUCOSE METER 103 mg/dL 70-110 TESTED AT [facility] 67 ([facility]) (test code = TANISHA [place] [facility] 1538) [address] POCT-GLUCOSE [id number] 06:37:00 Test Item Value Reference Range Interpretation Comments POC-GLUCOSE METER 108 mg/dL 70-110 TESTED AT [place] [address] ([facility]) (test code = TANISHA Hutson [facility] 1538) [address] VANCOMYCIN LEVEL, [id number] 04:30:00 Test Item Value Reference Range Interpretation Comments VANCOMYCIN RANDOM (BEAKER) (test 37.6 ug/mL code = 523) Reference Range: No NormalsTROPONIN [id number] 04:19:00 Test Item Value Reference Range Interpretation [...] acute neurological disease, and persistent tachyarrhythmia.BASIC METABOLIC [id number] 04:12:00 Test Item Value Reference Range Interpretation [...] S NOT APPLICABLE FOR DIALYSIS PATIEN TS. [id number] 04:11:00 Test Item Value Reference Range Interpretation Comments MAGNESIUM (BEAKER) (test code = 1.7 mg/dL 1.6-2.6 627) [id number] 03:57:00 Test Item Value Reference Range Interpretation [...] 0-0 (BEAKER) (test code = 413) TROPONIN [id number] 00:42:00 Test Item Value Reference Range Interpretation [...] acidosis, acute neurological disease, and persistent tachyarrhythmia.POCT-GLUCOSE [id number] 00:27:00 Test Item Value Reference Range Interpretation Comments POC-GLUCOSE METER 97 mg/dL 70-110 TESTED AT [facility] 6720 ([facility]NE) (test code = [place] [address] 1538) [id number] 00:23:00 Test Item Value Reference Range Interpretation Comments PARTIAL THROMBOPLASTIN TIME 34.2 seconds 22.5-36.0 (MARY[facility]NE) (test code = 760) [id number] 17:16:00 Test Item Value Reference Range Interpretation Comments PARTIAL THROMBOPLASTIN TIME 58.7 seconds 22.5-36.0 H ([facility]) (test code = 760) TISSUE [id number] 16:16:00Surgical Pathology Report Case: [id number] Authorizing Provider: Fabi Parekh MD Collected: 01/04/2017 1055 Ordering Location: [facility] Received: 01/04/2017 1314 PERIOPERATIVE SERVICES Pathologist: Judit Medel MD Specimen: Hernia, Hernia Sac HERNIA SAC, ABDOMINAL, INCISIONAL HERNIA, REPAIR: - FIBROADIPOSE TISSUE AND REACTIVE CHANGS WITH FOREIGN BODY GIANT C ELLS, CONSISTENT WITH INCISIONAL HERNIA SAC Signing Pathologist Direct Phone Line: [phone] signed by Judit Medel MD on 01/05/2017 at 4:16 [id number] renal disease, incisional hernia sacHernia sacReceived fresh labeled "hernia", description "hernia sac" is an 8.3 x 7.3 x 1.0 cm, dark-red to corral-white, irregular, rubbery, wrinkled portion of fibromembranoussoft tissue. Sectioning reveals no discrete masses. Information Systems Planner sections are submitted in cassette A1. DB/ew Performed.APTT 2017-01-05 14:43:00 Test Item Value Reference Range Interpretation Comments PARTIAL THROMBOPLASTIN TIME 162.1 seconds 22.5-36.0 HH ([facility]) (test code = 760) POCT-GLUCOSE [id number] 13:01:00 Test Item Value Reference Range Interpretation Comments POC-GLUCOSE METER 88 mg/dL 70-110 TESTED AT [place] [address] ([facility]) ([facility] = [facility] [address] 1538) TROPONIN [id number] 12:59:00 Test Item Value Reference Range Interpretation Comments TROPONIN I ([facility]) (test code = 0.13 ng/mL 0.00-0.03 H [...] acidosis, acute neurological disease, and persistent tachyarrhythmia.SPIN/CONCENTRATION [id number] 12:45:00 Test Item Value Reference Range Interpretation Comments CONCENTRATION CHARGED ([facility]) (test Done code = 2657) POCT-GLUCOSE [id number] 09:10:00 Test Item Value Reference Range Interpretation Comments POC-GLUCOSE METER 102 mg/dL 70-110 TESTED AT [place] [address] ([facility]) (test code = [facility] 1538) [address] CBC W/PLT COUNT & AUTO [id number] 08:49:00 Test Item Value Reference Range Interpretation Comments WHITE BLOOD CELL COUNT ([facility]) 8.1 K/ L 3.5-10.5 (test code = 775) RED BLOOD CELL COUNT ([facility]) 2.94 M/ L 3.93-5.22 L (test code = 761) HEMOGLOBIN ([facility]) (test code = 8.5 GM/DL 11.2-15.7 L 410) HEMATOCRIT ([facility]) (test code = 26.9 % 34.1-44.9 L 411) MEAN CORPUSCULAR VOLUME ([facility]) 91.5 fL 79.4-94.8 (test code = 753) [...] PERCENT (BEAKER) (test code = 2801) POCT-GLUCOSE [id number] 07:57:00 Test Item Value Reference Range Interpretation Comments POC-GLUCOSE METER 133 mg/dL 70-110 H TESTED AT [facility] 6720 (BEAKER) (test code = TANISHA [place] 1538) [address] BODY FLUID CULTURE + GRAM [id number] 07:44:00 Test Item Value Reference Range Interpretation Comments CULTURE (BEAKER) (test code No growth = 1095) GRAM STAIN RESULT (BEAKER) <1+ WBCs (test code = 1123) GRAM STAIN RESULT (BEAKER) No organisms seen (test code = 09187) POCT-GLUCOSE [id number] 06:05:00 Test Item Value Reference Range Interpretation Comments POC-GLUCOSE METER 63 mg/dL 70-110 L TESTED AT [facility] 6720 (BEAKER) (test code = [place] [address] 1538) VANCOMYCIN LEVEL, [id number] 05:32:00 Test Item Value Reference Range Interpretation Comments VANCOMYCIN RANDOM (BEAKER) (test 31.0 ug/mL code = 523) Reference Range: No NormalsBASIC METABOLIC [id number] 05:24:00 Test Item Value Reference Range Interpretation [...] NOT APPLICABLE FOR DIALYSIS PATIEN TS. TROPONIN [id number] 05:23:00 Test Item Value Reference Range Interpretation [...] failure, acidosis, acute neurological disease, and persistent tachyarrhythmia.[id number] 05:21:00 Test Item Value Reference Range Interpretation Comments MAGNESIUM (BEAKER) (test code = 1.7 mg/dL 1.6-2.6 627) [id number] 05:06:00 Test Item Value Reference Range Interpretation Comments PARTIAL THROMBOPLASTIN TIME 89.4 seconds 22.5-36.0 H (BEAKER) (test code = 760) PROTHROMBIN [id number] 05:04:00 Test Item Value Reference Range Interpretation Comments PROTIME (BEAKER) (test code = 14.6 seconds 11.7-14.7 759) INR (BEAKER) (test code = 370) 1.2 <=5.9 RECOMMENDED COUMADIN/WARFARIN INR THERAPY RANGESSTANDARD DOSE: 2.0 - 3.0 Includes: PROPHYLAXIS forvenous thrombosis, systemic embolization; TREATMENT for venous thrombosis and/or pulmonary embolus.HIGH RISK: Target INR is 2.5-3.5 for patients with mechanical heart valves.TROPONIN [id number] 17:14:00 Test Item Value Reference Range Interpretation [...] failure, acidosis, acute neurological disease, and persistent tachyarrhythmia.[id number] 16:55:00 Test Item Value Reference Range Interpretation Comments GLUCOSE RANDOM (BEAKER) (test code 140 mg/dL 70-105 H = 652) GLUCOSE-STAT [id number] 13:33:00 Test Item Value Reference Range Interpretation Comments GLUCOSE RANDOM (BEAKER) (test code 101 mg/dL 70-110 = 652) POTASSIUM-STAT [id number] 13:33:00 Test Item Value Reference Range Interpretation Comments POTASSIUM (BEAKER) (test code = 4.6 meq/L 3.6-5.5 379) HGB/HCT (H&H) - STAT [id number] 13:33:00 Test Item Value Reference Range Interpretation Comments HEMOGLOBIN ([facility]) (test code = 13.0 g/dL 12.0-15.0 410) HEMATOCRIT ([facility]) (test code = 38.0 % 36.0-45.0 411) BODY FLUID CULTURE + GRAM [id number] 09:05:00 Test Item Value Reference Range Interpretation Comments CULTURE ([facility]) (test code No growth = 1095) GRAM STAIN RESULT ([facility]) <1+ WBCs (test code = 1123) GRAM STAIN RESULT ([facility]) No organisms seen (test code = 24675) POCT-GLUCOSE [id number] 07:58:00 Test Item Value Reference Range Interpretation Comments POC-GLUCOSE METER 81 mg/dL 70-110 TESTED AT [facility] 6720 ([facility]) (test code = [place] [address] 1538) HCG, QUANTITATIVE, [id number] 07:23:00 Test Item Value Reference Range Interpretation Comments GONADOTROPIN, CHORIONIC (HCG) QUANT < mIU/mL 0-10 ([facility]) (test code = 649) Non- Females: <10 mIU/mL Females: Gestation Age Reference Range(mIU/mL) 0.2-1 Week 5-50 1-2 Weeks 50-500 2-3 Weeks 100-5,000 3-4Weeks 500-10,000 4-5 Weeks 1,000-50,000 5-6 Weeks 10,000-100,000 6-8 Weeks 15,000-200,000 2-3 Months 10,000-100,000TROPONIN [id number] 07:19:00 Test Item Value Reference Range Interpretation Comments TROPONIN I ([facility]) (test code = 0.17 ng/mL 0.00-0.03 H [...] acute neurological disease, and persistent tachyarrhythmia.BASIC METABOLIC [id number] 07:19:00 Test Item Value Reference Range Interpretation [...] S NOT APPLICABLE FOR DIALYSIS PATIEN TS. [id number] 07:18:00 Test Item Value Reference Range Interpretation Comments MAGNESIUM (BEAKER) (test code = 1.7 mg/dL 1.6-2.6 627) [id number] 06:48:00 Test Item Value Reference Range Interpretation [...] PERCENT (BEAKER) (test code = 2801) POCT-GLUCOSE [id number] 01:01:00 Test Item Value Reference Range Interpretation Comments POC-GLUCOSE METER 96 mg/dL 70-110 TESTED AT [place] [address] ([facility]) (test code = [facility] Caryl [facility] [address] 1538) TROPONIN [id number] 00:46:00 Test Item Value Reference Range Interpretation Comments TROPONIN I ([facility]) (test code = 0.16 ng/mL 0.00-0.03 H [...] failure, acidosis, acute neurological disease, and persistent tachyarrhythmia.[id number] 00:21:00 Test Item Value Reference Range Interpretation Comments PROTIME ([facility]) (test code = 15.8 seconds 11.7-14.7 H 759) INR ([facility]) (test code = 370) 1.3 <=5.9 PARTIAL THROMBOPLASTIN TIME 78.1 seconds 22.5-36.0 H ([facility]) (test code = 760) RECOMMENDED COUMADIN/WARFARIN INR THERAPY RANGESSTANDARD DOSE: 2.0 - 3.0 Includes: PROPHYLAXIS forvenous thrombosis, systemic embolization; TREATMENT for venous thrombosis and/or pulmonary embolus.HIGH RISK: Target INR is 2.5-3.5 for patients with mechanical heart valves.POCT-GLUCOSE [id number] 21:58:00 Test Item Value Reference Range Interpretation Comments POC-GLUCOSE METER 142 mg/dL 70-110 H TESTED AT [place] [id number] ([facility]) (test code = [facility] 1538) [address] VANCOMYCIN LEVEL, [id number] 20:19:00 Test Item Value Reference Range Interpretation Comments VANCOMYCIN RANDOM ([facility]) (test 18.4 ug/mL code = 523) Reference Range: No NormalsTROPONIN [id number] 18:36:00 Test Item Value Reference Range Interpretation Comments TROPONIN I ([facility]) (test code = 0.18 ng/mL 0.00-0.03 H [...] acidosis, acute neurological disease, and persistent tachyarrhythmia.POCT-GLUCOSE [id number] 18:30:00 Test Item Value Reference Range Interpretation Comments POC-GLUCOSE METER 119 mg/dL 70-110 H TESTED AT [place] [address] ([facility]) (test code = [facility] 1538) [address] HEMOGLOBIN [id number] 18:21:00 Test Item Value Reference Range Interpretation Comments HEMOGLOBIN A1C ([facility]) (test code = 6.3 % 4.3-6.1 H 368) POCT-GLUCOSE [id number] 18:00:00 Test Item Value Reference Range Interpretation Comments POC-GLUCOSE METER 57 mg/dL 70-110 L TESTED AT [place] [address] ([facility]) (test code = [facility] [address] 1538) [id number] 16:34:00 Test Item Value Reference Range Interpretation Comments PARTIAL THROMBOPLASTIN TIME 99.2 seconds 22.5-36.0 H ([facility]) (test code = 760) [id number] 15:36:00 Test Item Value Reference Range Interpretation Comments PARTIAL THROMBOPLASTIN TIME 123.9 seconds 22.5-36.0 H ([facility]) (test code = 760) [id number] 13:38:00 Test Item Value Reference Range Interpretation Comments PARTIAL THROMBOPLASTIN TIME > seconds 22.5-36.0 HH ([facility]) (test code = 760) TROPONIN [id number] 13:27:00 Test Item Value Reference Range Interpretation Comments TROPONIN I ([facility]) (test code = 0.19 ng/mL 0.00-0.03 H [...] acidosis, acute neurological disease, and persistent tachyarrhythmia.POCT-GLUCOSE [id number] 13:25:00 Test Item Value Reference Range Interpretation Comments POC-GLUCOSE METER 120 mg/dL 70-110 H TESTED AT [facility] 6720 ([facility]) (test code = [facility] 1538) [address] POCT-GLUCOSE [id number] 09:50:00 Test Item Value Reference Range Interpretation Comments POC-GLUCOSE METER 85 mg/dL 70-110 TESTED AT [place] [id number] ([facility]) (test code = [facility] [address] 1538) TROPONIN [id number] 08:31:00 Test Item Value Reference Range Interpretation Comments TROPONIN I ([facility]) (test code = 0.20 ng/mL 0.00-0.03 [facility]) Troponin I (TnI) levels must be interpreted [...] failure, acidosis, acute neurological disease, and persistent tachyarrhythmia.[id number] 03:35:00 Test Item Value Reference Range Interpretation Comments PARTIAL THROMBOPLASTIN TIME 39.1 seconds 22.5-36.0 H (BEAKER) (test code = 760) BASIC METABOLIC [id number] 03:34:00 Test Item Value Reference Range Interpretation [...] S NOT APPLICABLE FOR DIALYSIS PATIEN TS. [id number] 03:32:00 Test Item Value Reference Range Interpretation Comments MAGNESIUM (BEAKER) (test code = 1.5 mg/dL 1.6-2.6 L 627) CBC W/PLT COUNT & AUTO [id number] 03:17:00 Test Item Value Reference Range Interpretation [...] NEUTROPHILS ABSOLUTE COUNT 4.91 K/ L 1.56-6.13 ([facility]) (test code = 670) LYMPHOCYTES ABSOLUTE COUNT 0.74 K/ L 1.18-3.74 L (AKER) (test code = 414) MONOCYTES ABSOLUTE COUNT (BEAKER) 0.65 K/ L 0.24-0.36 H (test code = 415) EOSINOPHILS ABSOLUTE COUNT 0.29 K/ L 0.04-0.36 (AKER) (test code = 416) BASOPHILS ABSOLUTE COUNT (AKER) 0.03 K/ L 0.01-0.08 (test code = 417) IMMATURE GRANULOCYTES-RELATIVE 0 % 0-1 PERCENT (AKER) (test code = 2801) TROPONIN [id number] 01:22:00 Test Item Value Reference Range Interpretation Comments TROPONIN I ([facility]) (test code = 0.19 ng/mL 0.00-0.03 H [...] acidosis, acute neurological disease, and persistent tachyarrhythmia.POCT-GLUCOSE [id number] 00:49:00 Test Item Value Reference Range Interpretation Comments POC-GLUCOSE METER 74 mg/dL 70-110 TESTED AT [facility] 6720 ([facility]) (test code = TANISHA Hutson [facility] [address] 1538) TROPONIN [id number] 18:57:00 Test Item Value Reference Range Interpretation Comments TROPONIN I ([facility]) (test code = 0.17 ng/mL 0.00-0.03 H [...] acute neurological disease, and persistent tachyarrhythmia.VANCOMYCIN LEVEL, [id number] 18:52:00 Test Item Value Reference Range Interpretation Comments VANCOMYCIN RANDOM (BEAKER) (test 29.2 ug/mL code = 523) Reference Range: No NormalsLACTATE DEHYDROGENASE (LDH)2017-01-02 18:46:00 Test Item Value Reference Range Interpretation Comments LACTATE DEHYDROGENASE (BEAKER) (test 300 U/L 125-220 H code = 635) BODY FLUID CELL COUNT WITH [id number] 18:36:00 Test Item Value Reference Range Interpretation [...] = 2873) RAD, CHEST, 1 VIEW, NON [id number] 18:36:00PT started dialysis 07/12/2015 Reason for exam:->s/p thoraFINAL REPORT Comparison: 01/01/2017 TECHNIQUE: Single view of the chest FINDINGS: Right pleural effusion has decreased. No pneumothorax bilaterally. No other significant change. Signed: Turner Grier MDReport Verified Date/Time: 01/02/2017 18:36:30 Reading Location: [address] Consult Reading Room PH, BODY [id number] 18:22:00 Test Item Value Reference Range Interpretation Comments PH, BODY FLUID (BEAKER) (test code = 7.80 1530) POCT-GLUCOSE [id number] 18:19:00 Test Item Value Reference Range Interpretation Comments POC-GLUCOSE METER 91 mg/dL 70-110 TESTED AT [facility] 6720 (AKER) (test code = [place] [address] 1538) LACTATE DEHYDROGENASE (LDH), BODY [id number] 18:04:00 Test Item Value Reference Range Interpretation [...] HEPATITIS B CORE TOTAL ANTIBODY Nonreactive Nonreactive (AKER) (test code = 497) HEPATITIS B SURFACE ANTIBODY 29.1 mIU/mL <8.0 H (AKER) (test code = 647) HEPATITIS B SURFACE ANTIGEN (2) Nonreactive Nonreactive (AKER) (test code = 2585) CREATINE KINASE (CK), TOTAL AND [id number] 13:09:00 Test Item Value Reference Range Interpretation Comments CREATINE KINASE TOTAL (BEAKER) 285 U/L 29-200 H (test code = 380) CREATINE KINASE-MB (BEAKER) (test 15.2 ng/mL 0.0-6.6 H code = 750) CREATINE KINASE-MB INDEX (BEAKER) 5.3 % (test code = 395) CK-MB Reference Range:<6.7 Normal6.7-10.0 Borderline>10.0 AbnormalTROPONIN [id number] 13:09:00 Test Item Value Reference Range Interpretation [...] acidosis, acute neurological disease, and persistent tachyarrhythmia.POCT-GLUCOSE [id number] 12:25:00 Test Item Value Reference Range Interpretation Comments POC-GLUCOSE METER 95 mg/dL 70-110 TESTED AT [facility] 6720 ([facility]) (test code = [place] [address] 1538) POCT-GLUCOSE [id number] 11:56:00 Test Item Value Reference Range Interpretation Comments POC-GLUCOSE METER 65 mg/dL 70-110 L Notified Caryl Powers MD/[facility]ED AT [facility] (test code = [facility] 6720 RAJINDER 1538) [facility] 7703 0 BASIC METABOLIC [id number] 06:05:00 Test Item Value Reference Range Interpretation [...] NOT APPLICABLE FOR DIALYSIS PATIEN TS. TROPONIN [id number] 06:04:00 Test Item Value Reference Range Interpretation [...] failure, acidosis, acute neurological disease, and persistent tachyarrhythmia.[id number] 06:03:00 Test Item Value Reference Range Interpretation Comments MAGNESIUM (BEAKER) (test code = 1.9 mg/dL 1.6-2.6 627) CBC W/PLT COUNT & AUTO [id number] 05:59:00 Test Item Value Reference Range Interpretation [...] PERCENT (BEAKER) (test code = 2801) TROPONIN [id number] 01:42:00 Test Item Value Reference Range Interpretation [...] acute neurological disease, and persistent tachyarrhythmia.BASIC METABOLIC [id number] 01:37:00 Test Item Value Reference Range Interpretation [...] S NOT APPLICABLE FOR DIALYSIS PATIEN TS. [id number] 01:30:00 Test Item Value Reference Range Interpretation Comments MAGNESIUM (BEAKER) (test code = 1.5 mg/dL 1.6-2.6 L 627) POCT-GLUCOSE [id number] 00:03:00 Test Item Value Reference Range Interpretation Comments POC-GLUCOSE METER 76 mg/dL 70-110 TESTED AT [facility] 6720 ([facility] (test code = [facility] [address] 1538) POCT-GLUCOSE [id number] 22:26:00 Test Item Value Reference Range Interpretation Comments POC-GLUCOSE METER 60 mg/dL 70-110 L TESTED AT [facility] 6720 ([facility]) (test code = [facility] [address] 1538) TROPONIN [id number] 21:46:00 Test Item Value Reference Range Interpretation [...] acute neurological disease, and persistent tachyarrhythmia.BASIC METABOLIC [id number] 21:38:00 Test Item Value Reference Range Interpretation [...] S NOT APPLICABLE FOR DIALYSIS PATIEN TS. [id number] 21:35:00 Test Item Value Reference Range Interpretation Comments MAGNESIUM (BEAKER) (test code = 1.6 mg/dL 1.6-2.6 627) [id number] 21:34:00 Test Item Value Reference Range Interpretation Comments PHOSPHORUS (BEAKER) (test code = 7.7 mg/dL 2.3-4.7 H 604) RAD, CHEST, 1 VIEW, NON [id number] 21:30:00PT started dialysis 07/12/2015Reason for exam:->Line placementShould [...] MDReport Verified Date/Time: 01/01/2017 21:30:48 Reading Location: [address] Body Reading Room BODY FLUID CELL COUNT WITH [id number] 20:13:00 Test Item Value Reference Range Interpretation [...] Tube (test code = 2873) COMPREHENSIVE METABOLIC [id number] 19:19:00 Test Item Value Reference Range Interpretation [...] PATIEN TS. RAD, CHEST, 1 VIEW, NON [id number] 18:48:00PT started dialysis 07/12/2015 Reason for exam:->s/p left thoracentesis Should this be performed at the bedside?->YesFINAL REPORT Comparison: 01/01/2017 TECHNIQUE: Single view of the chest FINDINGS: Left pleural effusion has decreased. No pneumothorax bilaterally. Interval placement of a right internal jugular catheter. Tip projects in the mid SVC. No other gross change. Signed: Turner Grier MDReport Verified Date/Time: 01/01/2017 18:48:26 Reading Location: [address] Transitional Reading Room POCT-GLUCOSE [id number] 18:23:00 Test Item Value Reference Range Interpretation Comments POC-GLUCOSE METER 79 mg/dL 70-110 TESTED AT [place] [address] ([facility]) (test code = [facility] [address] 1538) [id number] 18:09:00 Test Item Value Reference Range Interpretation Comments AMMONIA (BEAKER) (test 9 mol/L 18-72 L Speci men markedly code = 348) hemolyzed [id number] 18:08:00 Test Item Value Reference Range Interpretation Comments MAGNESIUM (BEAKER) 2.8 mg/dL 1.6-2.6 H Specimen markedly (test code = 627) hemolyzed [id number] 18:08:00 Test Item Value Reference Range Interpretation Comments PHOSPHORUS (BEAKER) 8.1 mg/dL 2.3-4.7 H Specimen markedly (test code = 604) hemolyzed POCT-GLUCOSE [id number] 18:07:00 Test Item Value Reference Range Interpretation Comments POC-GLUCOSE METER 81 mg/dL 70-110 TESTED AT [place] [address] ([facility]) (test code = [facility] [address] 1538) LACTIC ACID, ARTERIAL, WHOLE [id number] 17:14:00 Test Item Value Reference Range Interpretation Comments LACTATE BLOOD 0.9 mmol/L 0.5-2.2 Specimen sligh tly ARTERIAL (2) (BEAKER) hemoly zed (test code = 2874) Effective 07/15/2015: Units/Reference Range ChangeNew: 0.5-2.2 mmol/L Previous: 5-20 mg/[id number] 17:12:00 Test Item Value Reference Range Interpretation Comments PROCALCITONIN (BEAKER) (test code 0.72 ng/mL <0.05 H = 3036) SEPSIS RISK (ng/mL)Low: 0.05-0.50Intermediate: 0.51-2.00High: >=2.01TROPONIN [id number] 16:56:00 Test Item Value Reference Range Interpretation [...] (BEAKER) (test code = 700) BLOOD GAS, [id number] 16:50:00 Test Item Value Reference Range Interpretation [...] (BEAKER) (test code = 1819) 21.0 % [id number] 16:46:00 Test Item Value Reference Range Interpretation Comments PHOSPHORUS (BEAKER) 7.9 mg/dL 2.3-4.7 H Specimen markedly (test code = 604) hemolyzed [id number] 16:46:00 Test Item Value Reference Range Interpretation Comments LIPASE (BEAKER) (test code = 749) 38 U/L 8-78 CALCIUM, [id number] 16:46:00 Test Item Value Reference Range Interpretation Comments CALCIUM IONIZED (BEAKER) (test 1.00 mmol/L 1.12-1.27 L code = 698) PH, BLOOD (BEAKER) (test code = 7.36 1810) PROTHROMBIN TIME/[id number] 16:43:00 Test Item Value Reference Range Interpretation [...] = 2801) RAD, CHEST, 1 VIEW, NON [id number] 15:22:00PT started dialysis 07/12/2015Post-intubationReason for exam:->sobShould this be performed at the bedside?->YesFINAL REPORT Comparison: 06/07/2016 TECHNIQUE: Single view of the chest FINDINGS: There is a moderate to large left pleural effusion and moderate right pleural effusion with nonspecific adjacent airspace disease. Cardiac silhouette is obscured. No gross pneumothorax. No acute skeletal abnormality. Signed: Turner Grier MDReport Verified Date/Time: 01/01/2017 15:22:20 Reading Location: [address] Transitional Reading Room BODY FLUID CULTURE + GRAM [id number] 11:17:00 Test Item Value Reference Range Interpretation Comments CULTURE (BEAKER) (test code No growth = 1095) GRAM STAIN RESULT (BEAKER) <1+ WBCs (test code = 1123) GRAM STAIN RESULT (BEAKER) No organisms seen (test code = 13087) [id number] 15:47:00Medical Cytology Report Case: [id number] Authorizing Provider: Verena Carrero MD Collected: 12/12/2016 1540 Ordering Location: [facility] Laboratory Received: 12/13/2016 1002 Pathologist: Gokul Hood MD Specimen: Pl eural, Right RIGHT PLEURAL FLUID (CYTOSPINS): - NEGATIVE FOR MALIGNANT CELLS Signing Pathologist Direct Phone Line: [phone] signed by Gokul Hood MD on 12/13/2016 at 3:47 PMReactive mesothelialcells are noted.[id number] pleural effusion; CHFRIGHT PLEURAL FLUID4 cytospins prepared from 200 ml yellow fluidCollected: [id number]: [id number] [facility], Departmentof Pathology, [address] [place] [address], [facility], [facility], [address] [place] [address], IWTIXQTX GRAVITY, BODY [id number] 15:33:00 Test Item Value Reference Range Interpretation Comments SP GRAVITY MISCELLANEOUS (BEAKER) (test 1.019 code = 557) Reference Range: No NormalsBODY FLUID [id number] 11:49:00 Test Item Value Reference Range Interpretation Comments CRYSTALS, BODY FLUID No crystals seen. (BEAKER) (test code = 2165) [id number] Anne Yen MD (BEAKER) (test code = (electronic signature) 4775) PH, BODY [id number] 00:24:00 Test Item Value Reference Range Interpretation Comments PH, BODY FLUID (BEAKER) (test code = 7.90 1530) BODY FLUID CELL COUNT WITH [id number] 19:53:00 Test Item Value Reference Range Interpretation [...] Tube (test code = 2873) ALBUMIN, BODY [id number] 19:31:00 Test Item Value Reference Range Interpretation Comments ALBUMIN FLUID (BEAKER) (test code = 0.9 gm/dL 501) Reference Range: No Normals Assay performance has not been validated for this type of specimen.RIGHT THORACENTESIS, PLEURAL FLUIDRIGHT THORACENTESIS, PLEURAL FLUIDRIGHT THORACENTESIS, PLEURAL FLUIDRIGHT THORACENTESIS, PLEURAL FLUIDRIGHT THORACENTESIS, PLEURAL FLUIDRIGHT THORACENTESIS, PLEURAL FLUIDCREATININE, BODY [id number] 19:31:00 Test Item Value Reference Range Interpretation Comments CREATININE FLUID (BEAKER) (test 15.62 mg/dL code = 677) Reference Range: No Normals Assay performance has not been validated for this type of specimen.RIGHT THORACENTESIS, PLEURAL FLUIDRIGHT THORACENTESIS, PLEURAL FLUIDRIGHT THORACENTESIS, PLEURAL FLUIDRIGHT THORACENTESIS, PLEURAL FLUIDRIGHT THORACENTESIS, PLEURAL FLUIDRIGHT THORACENTESIS, PLEURAL FLUIDAMYLASE, BODY [id number] 19:27:00 Test Item Value Reference Range Interpretation Comments AMYLASE FLUID (BEAKER) (test code = 39 U/L 350) Absence of reference range indicates that normals have not been defined.Assay performance has not been validated for this type of specimen.RIGHT THORACENTESIS, PLEURAL FLUIDRIGHT THORACENTESIS, PLEURALFLUIDRIGHT THORACENTESIS, PLEURAL FLUIDRIGHT THORACENTESIS, PLEURAL FLUIDRIGHT THORACENTESIS, PLEURAL FLUIDRIGHT THORACENTESIS, PLEURAL FLUIDLACTATE DEHYDROGENASE (LDH), BODY [id number] 19:27:00 Test Item Value Reference Range Interpretation Comments LACTATE DEHYDROGENASE FLUID (BEAKER) 113 U/L (test code = 634) Absence of reference range indicates that normals have not been defined.Assay performance has not been validated for this type of specimen.RIGHT THORACENTESIS, PLEURAL FLUIDRIGHT THORACENTESIS, PLEURALFLUIDRIGHT THORACENTESIS, PLEURAL FLUIDRIGHT THORACENTESIS, PLEURAL FLUIDRIGHT THORACENTESIS, PLEURAL FLUIDRIGHT THORACENTESIS, PLEURAL FLUIDPROTEIN, BODY [id number] 19:27:00 Test Item Value Reference Range Interpretation Comments PROTEIN FLUID (BEAKER) (test code = 2.1 g/dL 579) Absence of reference range indicates that normals have not been defined.Assay performance has not been validated for this type of specimen.RIGHT THORACENTESIS, PLEURAL FLUIDRIGHT THORACENTESIS, PLEURALFLUIDRIGHT THORACENTESIS, PLEURAL FLUIDRIGHT THORACENTESIS, PLEURAL FLUIDRIGHT THORACENTESIS, PLEURAL FLUIDRIGHT THORACENTESIS, PLEURAL FLUIDGLUCOSE, BODY [id number] 19:27:00 Test Item Value Reference Range Interpretation Comments GLUCOSE, BODY FLUID (BEAKER) (test 172 mg/dL code = 1528) Absence of reference range indicates that normals have not been defined.Assay performance has not been validated for this type of specimen.RIGHT THORACENTESIS, PLEURAL FLUIDRIGHT THORACENTESIS, PLEURALFLUIDRIGHT THORACENTESIS, PLEURAL FLUIDRIGHT THORACENTESIS, PLEURAL FLUIDRIGHT THORACENTESIS, PLEURAL FLUIDRIGHT THORACENTESIS, PLEURAL FLUIDAFB CULTURE + [id number] 18:17:00 Test Item Value Reference Range Interpretation Comments CULTURE (BEAKER) (test No acid-fast bacilli code = 1095) isolated in 42 days AFB SMEAR (BEAKER) No acid fast bacilli (test code = 994) seen FUNGUS CULTURE + [id number] 19:24:00 Test Item Value Reference Range Interpretation Comments CULTURE (BEAKER) (test No fungus isolated in code = 1095) 28 days FUNGUS SMEAR (BEAKER) No fungi seen (test code = 1406) BLOOD [id number] 08:20:00 Test Item Value Reference Range Interpretation Comments CULTURE (BEAKER) (test No growth in 5 days code = 1095) BLOOD [id number] 08:13:00 Test Item Value Reference Range Interpretation Comments CULTURE (BEAKER) (test No growth in 5 days code = 1095) POCT-GLUCOSE [id number] 08:25:00 Test Item Value Reference Range Interpretation Comments POC-GLUCOSE METER 244 mg/dL 70-110 H TESTED AT [facility] 6720 (BEAKER) (test code = TANIS[place] C[place] 1538) [address] BASIC METABOLIC [id number] 05:31:00 Test Item Value Reference Range Interpretation [...] S NOT APPLICABLE FOR DIALYSIS PATIEN TS. [id number] 05:27:00 Test Item Value Reference Range Interpretation [...] 0-0 (BEAKER) (test code = 413) 0.00POCT-GLUCOSE [id number] 00:54:00 Test Item Value Reference Range Interpretation Comments POC-GLUCOSE METER 124 mg/dL 70-110 H TESTED AT [facility] 6720 (BEAKER) (test code = T[place]IS[place] 1538) [address] POCT-GLUCOSE [id number] 17:10:00 Test Item Value Reference Range Interpretation Comments POC-GLUCOSE METER 146 mg/dL 70-110 H TESTED AT [facility] 6720 (BEAKER) (test code = T[place] 1538) [address] BODY FLUID CULTURE + GRAM [id number] 15:37:00 Test Item Value Reference Range Interpretation Comments CULTURE (BEAKER) (test code No growth = 1095) GRAM STAIN RESULT ([facility]) No WBCs (test code = 1123) GRAM STAIN RESULT ([facility]) No organisms seen (test code = 11523) PERITONEAL DIALYSIS EFFLUENT [id number] 15:25:00 Test Item Value Reference Range Interpretation Comments CULTURE ([facility]) (test code = 1095) No growth POCT-GLUCOSE [id number] 12:03:00 Test Item Value Reference Range Interpretation Comments POC-GLUCOSE METER 170 mg/dL 70-110 H TESTED AT [place] [address] ([facility]) (test code = [facility] 1538) [address] HEPATITIS C PCR, [id number] 09:44:00 Test Item Value Reference Range Interpretation Comments HCV NUMERIC RESULT ([facility]) [id number] IU/mL <15 H (test code = 2700) This test uses a Real-Time Polymerase Chain Reaction (RT-PCR) methodology and was performed using [employer] Ampliprep/SHELLY TaqMan HCV test kit version 2.0 ([employer]).Reportable range for this assay is 15 - 100,000,000 IU per mL (1.18 - 8.00 Log IU/mL).POCT-GLUCOSE [id number] 08:07:00 Test Item Value Reference Range Interpretation Comments POC-GLUCOSE METER 183 mg/dL 70-110 H TESTED AT [place] [address] ([facility]) (test code = [facility] 1538) [address] CBC (HEMOGRAM ONLY)2016-06-08 06:53:00 Test Item Value Reference Range Interpretation Comments WHITE BLOOD CELL COUNT ([facility]) 6.2 K/ L 4.0-10.0 (test code = 775) RED BLOOD CELL COUNT ([facility]) 3.22 M/ L 4.00-5.00 L (test code = 761) HEMOGLOBIN (AKER) (test code = 9.5 GM/DL 12.0-15.0 L 410) HEMATOCRIT ([facility]) (test code = 28.1 % 36.0-45.0 L 411) MEAN CORPUSCULAR VOLUME ([facility]) 87.5 fL 82.0-99.0 (test code = 753) MEAN CORPUSCULAR HEMOGLOBIN 29.5 pg 27.0-33.0 (AKER) (test code = 751) MEAN CORPUSCULAR HEMOGLOBIN [...] (BEAKER) (test code = 413) 0.00BASIC METABOLIC [id number] 05:44:00 Test Item Value Reference Range Interpretation [...] S NOT APPLICABLE FOR DIALYSIS PATIEN TS. [id number] 05:41:00 Test Item Value Reference Range Interpretation Comments MAGNESIUM (BEAKER) (test code = 2.3 mg/dL 1.6-2.6 627) POCT-GLUCOSE [id number] 20:59:00 Test Item Value Reference Range Interpretation Comments POC-GLUCOSE METER 105 mg/dL 70-110 TESTED AT [facility] 6720 (BEAKER) (test code = [place] 1538) [address] POCT-GLUCOSE [id number] 17:58:00 Test Item Value Reference Range Interpretation Comments POC-GLUCOSE METER 129 mg/dL 70-110 H TESTED AT [place] [address] ([facility]) (test code = TANISHA Hutson [place] 1538) [address] POCT-GLUCOSE [id number] 17:58:00 Test Item Value Reference Range Interpretation Comments POC-GLUCOSE METER 138 mg/dL 70-110 H TESTED AT [place] [address] ([facility]) (test code = TANISHA Hutson [place] 1538) [address] ANTI-NUCLEAR ANTIBODY ([facility])2016-06-07 14:51:00 Test Item Value Reference Range Interpretation Comments ANTI-NUCLEAR ANTIBODY ([place]) (BEAKER) Negative Negative (test code = 418) [id number] 09:26:00 Test Item Value Reference Range Interpretation Comments PHOSPHORUS (BEAKER) (test code = 7.8 mg/dL 2.3-4.7 H 604) POCT-GLUCOSE [id number] 08:18:00 Test Item Value Reference Range Interpretation Comments POC-GLUCOSE METER 140 mg/dL 70-110 H TESTED AT [place] [address] ([facility]) (test code = [facility] [place] 1538) [address] CBC (HEMOGRAM ONLY)2016-06-07 07:53:00 Test Item Value [...] (BEAKER) (test code = 413) 0.00BASIC METABOLIC [id number] 07:30:00 Test Item Value Reference Range Interpretation [...] S NOT APPLICABLE FOR DIALYSIS PATIEN TS. [id number] 07:29:00 Test Item Value Reference Range Interpretation Comments MAGNESIUM (BEAKER) (test code = 1.7 mg/dL 1.6-2.6 627) VANCOMYCIN LEVEL, [id number] 07:28:00 Test Item Value Reference Range Interpretation Comments VANCOMYCIN RANDOM (BEAKER) (test 18.5 ug/mL code = 523) Reference Range: No NormalsPOCT-GLUCOSE [id number] 21:54:00 Test Item Value Reference Range Interpretation Comments POC-GLUCOSE METER 112 mg/dL 70-110 H TESTED AT [place] [address] ([facility]) (test code = TANISHA Hutson [facility] 1538) [address] [id number] 19:10:00 Test Item Value Reference Range Interpretation Comments ACTIVATED CLOTTING TIME 337 sec TEST ED AT [place] [address] ([facility]) (test code = TANISHA Hutson [place] [address]) [address] [id number] 16:26:00 Test Item Value Reference Range Interpretation Comments PARTIAL THROMBOPLASTIN TIME 83.0 seconds 22.5-36.0 H (BEAKER) (test code = 760) HEPATIC FUNCTION [id number] 14:54:00 Test Item Value Reference Range Interpretation [...] (test code = 18 U/L 6-55 347) [id number] 13:30:00 Test Item Value Reference Range Interpretation Comments FERRITIN (BEAKER) (test code = 361) 343 ng/mL 5-275 H Effective 01/28/2014: Reference Range ChangeNew: Male 5-275 Previous: Male 22-322 Female 5-275 Female 39-299GJVB-YDMYSYR [id number] 13:01:00 Test Item Value Reference Range Interpretation Comments POC-GLUCOSE METER 121 mg/dL 70-110 H TESTED AT [facility] 6720 ([facility]) (test code = TANISHA Hutson [facility] 1538) [address] HEPATITIS C [id number] 11:01:00 Test Item Value Reference Range Interpretation Comments HEPATITIS C ANTIBODY (BEAKER) (test Reactive Nonreactive A code = 367) HEPATITIS B SURFACE [id number] 10:32:00 Test Item Value Reference Range Interpretation Comments HEPATITIS B SURFACE ANTIGEN (2) Nonreactive Nonreactive (BEAKER) (test code = 2585) HEPATITIS B SURFACE [id number] 10:32:00 Test Item Value Reference Range Interpretation Comments HEPATITIS B SURFACE ANTIBODY 71.3 mIU/mL <8.0 H (BEAKER) (test code = 647) HEPATITIS A ANTIBODY, [id number] 10:32:00 Test Item Value Reference Range Interpretation Comments HEPATITIS A IGM ANTIBODY (BEAKER) Nonreactive Nonreactive (test code = 498) HEPATITIS B CORE ANTIBODY, [id number] 10:32:00 Test Item Value Reference Range Interpretation Comments HEPATITIS B CORE TOTAL ANTIBODY Nonreactive Nonreactive (BEAKER) (test code = 497) LACTATE DEHYDROGENASE (LDH), BODY [id number] 10:24:00 Test Item Value Reference Range Interpretation [...] % 20-55 (test code = 2590) PROTEIN, [id number] 09:36:00 Test Item Value Reference Range Interpretation Comments TOTAL PROTEIN (BEAKER) (test code = 6.5 gm/dL 6.0-8.3 770) LACTATE DEHYDROGENASE (LDH)2016-06-06 09:36:00 Test Item Value Reference Range Interpretation Comments LACTATE DEHYDROGENASE (BEAKER) (test 248 U/L 125-220 H code = 635) [id number] 09:32:00 Test Item Value Reference Range Interpretation Comments PARTIAL THROMBOPLASTIN TIME 72.0 seconds 22.5-36.0 H (BEAKER) (test code = 760) Prior to initiating heparinPROTHROMBIN TIME/[id number] 09:30:00 Test Item Value Reference Range Interpretation [...] 0-0 (BEAKER) (test code = 413) PLATELET [id number] 09:15:00 Test Item Value Reference Range Interpretation Comments PLATELET COUNT (BEAKER) (test 185 K/CU MM 150-430 code = 756) POCT-GLUCOSE [id number] 08:01:00 Test Item Value Reference Range Interpretation Comments POC-GLUCOSE METER 119 mg/dL 70-110 H TESTED AT [facility] 6720 (BEAKER) (test code = TANISHA BYRD 1538) [address] [id number] 04:10:00 Test Item Value Reference Range Interpretation Comments MAGNESIUM (BEAKER) (test code = 1.8 mg/dL 1.6-2.6 627) BASIC METABOLIC [id number] 04:10:00 Test Item Value Reference Range Interpretation [...] S NOT APPLICABLE FOR DIALYSIS PATIEN TS. [id number] 04:09:00 Test Item Value Reference Range Interpretation [...] 0-0 (BEAKER) (test code = 413) 0.00POCT-GLUCOSE [id number] 00:10:00 Test Item Value Reference Range Interpretation Comments POC-GLUCOSE METER 235 mg/dL 70-110 H TESTED AT [facility] 67[address] (BEAKER) (test code = TANISHA Hutson [place] 1538) [address] GRAM [id number] 23:45:00 Test Item Value Reference Range Interpretation Comments GRAM STAIN RESULT (BEAKER) <1+ WBCs (test code = 1123) GRAM STAIN RESULT (BEAKER) No organisms seen (test code = 06176) BODY FLUID CELL COUNT WITH [id number] 20:12:00 Test Item Value Reference Range Interpretation [...] = 2873) BODY FLUID CELL COUNT WITH [id number] 19:33:00 Test Item Value Reference Range Interpretation [...] Tube (test code = 2873) PROTEIN, BODY [id number] 19:01:00 Test Item Value Reference Range Interpretation [...] FLUID (BEAKER) (test code = 7.73 1530) [id number] 18:22:00 Test Item Value Reference Range Interpretation Comments PARTIAL THROMBOPLASTIN TIME 36.7 seconds 22.5-36.0 H (BEAKER) (test code = 760) PROTHROMBIN [id number] 18:20:00 Test Item Value Reference Range Interpretation Comments PROTIME (BEAKER) (test code = 15.3 seconds 11.7-14.7 H 759) INR (BEAKER) (test code = 370) 1.2 <=5.9 RECOMMENDED COUMADIN/WARFARIN INR THERAPY RANGESSTANDARD DOSE: 2.0 - 3.0 Includes: PROPHYLAXIS forvenous thrombosis, systemic embolization; TREATMENT for venous thrombosis and/or pulmonary embolus.HIGH RISK: Target INR is 2.5-3.5 for patients with mechanical heart valves.POCT-GLUCOSE [id number] 18:04:00 Test Item Value Reference Range Interpretation Comments POC-GLUCOSE METER 182 mg/dL 70-110 H TESTED AT [facility] 6720 (BEAKER) (test code = TAN[place] 1538) [address] CREATINE KINASE (CK), TOTAL AND [id number] 16:32:00 Test Item Value Reference Range Interpretation Comments CREATINE KINASE TOTAL (BEAKER) 247 U/L 29-200 H (test code = 380) CREATINE KINASE-MB (BEAKER) (test 8.4 ng/mL 0.0-6.6 H code = 750) CREATINE KINASE-MB INDEX (BEAKER) 3.4 % (test code = 395) Effective 01/28/2014: CK-MB Reference Range ChangeNew: 0.0-6.6 Previous: 0.0-4.9CK-MB Reference Range:<6.7 Normal6.7-10.0 Borderline>10.0 AbnormalTROPONIN [id number] 16:32:00 Test Item Value Reference Range Interpretation [...] acute neurological disease, and persistent tachyarrhythmia.BASIC METABOLIC [id number] 16:31:00 Test Item Value Reference Range Interpretation [...] S NOT APPLICABLE FOR DIALYSIS PATIEN TS. [id number] 16:26:00 Test Item Value Reference Range Interpretation Comments PHOSPHORUS (BEAKER) (test code = 8.1 mg/dL 2.3-4.7 H 604) [id number] 16:26:00 Test Item Value Reference Range Interpretation Comments MAGNESIUM (BEAKER) (test code = 1.9 mg/dL 1.6-2.6 627) HEPATIC FUNCTION [id number] 16:26:00 Test Item Value Reference Range Interpretation [...] 6-55 347) CBC W/PLT COUNT & AUTO [id number] 16:07:00 Test Item Value Reference Range Interpretation [...] code = 417) 0.00LACTIC ACID, VENOUS, WHOLE [id number] 16:06:00 Test Item Value Reference Range Interpretation Comments LACTATE BLOOD VENOUS (2) (BEAKER) 1.5 mmol/L 0.5-2.2 (test code = 2872) Effective 07/15/2015: Units/Reference Range ChangeNew: 0.5-2.2 mmol/L Previous: 5-20 mg/dLBLOOD GAS, [id number] 15:57:00 Test Item Value Reference Range Interpretation [...] (test code = 1819) 21.0 % POCT-GLUCOSE [id number] 12:45:00 Test Item Value Reference Range Interpretation Comments POC-GLUCOSE METER 201 mg/dL 70-110 H TESTED AT [facility] 6720 (BEAKER) (test code = TANISHA [place] 1538) [address] POCT-GLUCOSE [id number] 08:26:00 Test Item Value Reference Range Interpretation Comments POC-GLUCOSE METER 181 mg/dL 70-110 H TESTED AT [facility] 6720 (BEAKER) (test code = T[place]ISHA [place] 1538) [address] [id number] 07:00:00 Test Item Value Reference Range Interpretation Comments FERRITIN (BEAKER) (test code = 361) 337 ng/mL 5-275 H Effective 01/28/2014: Reference Range ChangeNew: Male 5-275 Previous: Male 22-322 Female 5-275 Female [id number] 06:20:00 Test Item Value Reference Range Interpretation Comments MAGNESIUM (BEAKER) (test code = 1.8 mg/dL 1.6-2.6 627) BASIC METABOLIC [id number] 06:20:00 Test Item Value Reference Range Interpretation [...] = 2590) CBC W/PLT COUNT & AUTO [id number] 06:00:00 Test Item Value Reference Range Interpretation [...] L 0.00-0.20 (test code = 417) 0.00POCT-GLUCOSE [id number] 17:21:00 Test Item Value Reference Range Interpretation Comments POC-GLUCOSE METER 196 mg/dL 70-110 H TESTED AT [facility] 6720 (BEAKER) (test code = T[place] 1538) [address] POCT-GLUCOSE [id number] 12:54:00 Test Item Value Reference Range Interpretation Comments POC-GLUCOSE METER 190 mg/dL 70-110 H TESTED AT [facility] 67[facility] (test code = TANISHA Hutson [place] 1538) [address] HEMOGLOBIN AND [id number] 11:25:00 Test Item Value Reference Range Interpretation Comments HEMOGLOBIN (BEAKER) (test code = 9.1 GM/DL 12.0-15.0 L 410) HEMATOCRIT (BEAKER) (test code = 27.2 % 36.0-45.0 L 411) POCT-GLUCOSE [id number] 07:54:00 Test Item Value Reference Range Interpretation Comments POC-GLUCOSE METER 116 mg/dL 70-110 H TESTED AT [facility] 6720 (BEAKER) (test code = T[place] 1538) [address] [id number] 05:00:00 Test Item Value Reference Range Interpretation Comments PHOSPHORUS (BEAKER) (test code = 8.0 mg/dL 2.3-4.7 H 604) BASIC METABOLIC [id number] 01:32:00 Test Item Value Reference Range Interpretation [...] PATIEN TS. CBC W/PLT COUNT & AUTO [id number] 01:18:00 Test Item Value Reference Range Interpretation [...] L 0.00-0.20 (test code = 417) 0.00POCT-GLUCOSE [id number] 22:11:00 Test Item Value Reference Range Interpretation Comments POC-GLUCOSE METER 200 mg/dL 70-110 H TESTED AT [place] [address] [facility] (test code = TANISHA BYRD 1538) [address] POCT-GLUCOSE [id number] 18:17:00 Test Item Value Reference Range Interpretation Comments POC-GLUCOSE METER 206 mg/dL 70-110 H TESTED AT [facility] 6720 (BEAKER) (test code = [place] 1538) [address] [id number] 17:39:00 Test Item Value Reference Range Interpretation Comments POTASSIUM (BEAKER) (test code = 4.7 meq/L 3.5-5.1 379) BASIC METABOLIC [id number] 11:55:00 Test Item Value Reference Range Interpretation [...] S NOT APPLICABLE FOR DIALYSIS PATIEN TS. [id number] 11:42:00 Test Item Value Reference Range Interpretation [...] K/ L 0.00-0.20 (test code = 417) 0.67WTLQITASWNDC0300-97-08 11:36:26398Pvvxdxgu JcvercdVPXCBMPWLNGW5134-74-85 11:36:0019[facility] DlrkqgnKHZABLENUGYL9346-41-80 11:36:008.5[facility] UKPXVGXHFSBT2512-43-74 11:36:64550Mvtewzoe WbxilqtIQDFYGLVQSOY9193-57-98 11:36:93625Kjvjmzui KtynxtzWXYLBOOGIAIF7829-58-84 11:36:004.6[facility] KHNCRLYMHEND2064-32-69 11:36:0050[facility] DmbzfqcRTGXHLQIGALU4663-22-66 11:36:00 8.31[facility] EdgxmldHBICYUGKHYTZ1438-12-83 11:36:006[facility] HermannELECTROLYTES 2015-07-01 11:36:0014.6[facility] ArhlocjYRCZSHRZPD1834-20-20 11:36:001.2[facility] PhdmsffCYFTAIBDFR7601-70-55 11:36:001.0[facility] KtrupvmYYWXYGNPWA7052-83-49 11:36:004.4[facility] EpktvomHUFOTIAOGL0786-96-07 11:36:000.5[facility] MGWPHXAPZS9937-57-95 11:36:000.1[facility] ZyjwcblHJFWIIUKQR0557-37-87 11:36:000.1 [facility] NcvgotmLXAMTUEMFC7997-34-75 11:36:008.0[facility] HermannHEMATOLOGY 2015-07-01 11:36:0019.2[facility] EchumnmNVVYPFNKOT2609-29-82 11:36:0069.5[facility] ZqzaxkgICENAJECMV7569-17-20 11:36:002.3[facility] OrtyeuaNXPOCEZTLL5247-63-70 11:36:00 Test Item Value Reference Range Interpretation Comments PTT (test code = PTT) 35.1 s 22.9-35.8 [facility] QykolakZMDGLOHIQI6231-89-32 11:36:001.09[facility] HermannHEMATOLOGY 2015-07-01 11:36:00 Test Item Value Reference Range Interpretation Comments PT (test code = PT) 14.4 s 12.0-14.7 [facility] KiotowiHDRSTTHYZC3376-33-61 11:36:009.3[facility] HermannHEMATOLOGY 2015-07-01 11:36:003.21[facility] BvqujqqCUMRICTGSJ6289-39-36 11:36:006.3[facility] DaofbntBOHIBDUGUO6536-80-13 11:36:0088.4[facility] YrrppnbBWLTGYSKQP3384-19-82 11:36:0028.4[facility] FtnwmxzTOHXCNWQCU5444-52-61 11:36:27205Pfwwclnp [place] KAVMZVAZDY2637-52-44 11:36:0014.9[facility] JooeizlRMCREXJNTT6100-67-80 11:36:00 32.7[facility] RtrlmuyDAIVLODDZZ3410-89-67 11:36:00 Test Item Value Reference Range Interpretation Comments MCH (test code = MCH) 28.9 pg 27.0-31.0 [facility] WdcgwlpGGGKIYOTEF9155-67-36 11:36:008.9[facility] HermannELECTROLYTES 2015-07-01 11:36:02281Mvtulnbx GohxuowOPHGJNIOZZNU8279-43-98 11:36:0019[facility] NglibhrSHAFFMSTFVVF2684-97-07 11:36:008.5[facility] CafaupfQLMHXCYJAZQA7745-72-93 11:36:16523Jtfzzhfx UgcbobzZAWFRXXWUAKM8482-62-93 11:36:15931Zwiedymb Yovani HHKEPWWWXKWQ9775-45-83 11:36:004.6[facility] RvrjavtXFTGSTUGDCUN8856-72-09 11:36:0050[facility] QbrrhsdDVXGZCGIZYBC7733-46-43 11:36:008.31[facility] GUDEAJEJTXOJ7564-41-42 11:36:006[facility] WadfeumCZUUIWYOJIEW3607-10-03 11:36:00 14.6[facility] HcexyiySIACNKHKVY5048-94-94 11:36:001.2[facility] HermannHEMATOLOGY 2015-07-01 11:36:001.0[facility] WgqlfxjHWCWRIMWCT3100-92-55 11:36:004.4[facility] NgecohyCGPXBCANZR8730-75-30 11:36:000.5[facility] XnvzivjOTREVCWLJF8146-02-64 11:36:000.1[facility] RkklqgaTCDZRIIWPN5872-42-81 11:36:000.1[facility] IZWHBMPOTV8092-02-84 11:36:008.0[facility] NxpzuqiBQGMXLXXYA6382-21-51 11:36:00 19.2[facility] JadxzzwLRSRXRTGTT9831-82-93 11:36:0069.5[facility] HermannHEMATOLOGY 2015-07-01 11:36:002.3[facility] KsopigyYDEYUUEJOP4705-50-27 11:36:00 Test Item Value Reference Range Interpretation Comments PTT (test code = PTT) 35.1 s 22.9-35.8 [facility] ElfcoigDJBKHZIYOK6443-04-91 11:36:001.09[facility] HermannHEMATOLOGY 2015-07-01 11:36:00 Test Item Value Reference Range Interpretation Comments PT (test code = PT) 14.4 s 12.0-14.7 [facility] SpshpuxTBNXAJZBMA4298-58-27 11:36:009.3[facility] HermannHEMATOLOGY 2015-07-01 11:36:003.21[facility] IspdjkfLWOQASMBUF4843-40-28 11:36:006.3[facility] KwwdfxuCRKCIZLZUF8059-39-58 11:36:0088.4[facility] JwdpylnTEHSIQLGUU1587-00-92 11:36:0028.4[facility] UuiqdnoSNGHSZZUXQ0682-56-44 11:36:51022Tvlweuuo Yovani CRCMJVXMYZ7772-65-05 11:36:0014.9[facility] KozlhqnDUSLAGPGOD2312-93-77 11:36:00 32.7[facility] NflixgrMRFVRDLVIA9473-35-11 11:36:00 Test Item Value Reference Range Interpretation Comments MCH (test code = MCH) 28.9 pg 27.0-31.0 [facility] UlfehzdEXOBPLBEWY6141-35-30 11:36:008.9[facility] HermannCARDIAC ENZYMES 2015-06-17 17:02:000.10[facility] HermannCHEM EVWQL8965-79-55 17:02:08552Zipqayuy HermannCHEM WLZGI3634-00-97 17:02:007[facility] HermannCHEM FTWWK7147-33-39 17:02:005.4[facility] HermannCHEM YDMBV9701-28-85 17:02:000.3[facility] HermannCHEM RUHLO6853-73-72 17:02:0012.1[facility] HermannCHEM IJPKL1355-54-44 17:02:007 [facility] HermannCHEM SNARO0774-39-24 17:02:0045[facility] HermannCHEM PANEL 2015-06-17 17:02:001.8[facility] HermannCHEM LYDTK0812-81-67 17:02:0037[facility] HermannCHEM YDSLE1579-74-63 17:02:000.3[facility] HermannCHEM ISUFE5177-65-30 17:02:0084[facility] HermannCHEM ZWWZM7791-49-11 17:02:007.2[facility] HermannCHEM NYLYV7920-67-74 17:02:008.4[facility] HermannCHEM HMYOB5576-48-87 17:02:71908 [facility] HermannCHEM VLTJE1755-79-08 17:02:005.1[facility] HermannCHEM PANEL 2015-06-17 17:02:64846Fpkzzazt HermannCHEM XIBEM3649-29-57 17:02:0021[facility] HermannCHEM OVUCM3717-31-16 17:02:59979Uctyywat HermannCHEM TUBFH3143-34-88 17:02:007.50[facility] HermannCHEM HAVYU9067-73-50 17:02:0052[facility] KVZYBYBLYA3104-51-58 17:02:000.4[facility] SsstfafAUIQGKRONJ5609-30-75 17:02:000.0 Memorial CcfbcfxUSQIKEUCHB2816-10-77 17:02:000.1[facility] HermannHEMATOLOGY 2015-06-17 17:02:0027.3[facility] OudkpbkDYXXEKAAVR1459-20-18 17:02:0065.3[facility] KgzvhhdIOBZIIDJAK4952-49-20 17:02:004.4[facility] IgfylgoQLSEKFPKNY4121-05-04 17:02:000.5[facility] UuytqwaWPHNSVHBPN6875-65-38 17:02:001.3[facility] WTKMTYNKIN0226-37-99 17:02:005.6[facility] FkrwqurBOQAZHXJPA4993-97-21 17:02:001.9 Memorial EbmtylqIHVQVJOFEK4171-61-45 17:02:0028.8[facility] HermannHEMATOLOGY 2015-06-17 17:02:009.3[facility] UdecxxiWKQLIXWURB6912-68-82 17:02:003.24[facility] YtzjrpqNZNBTPUJPW7200-27-50 17:02:00 Test Item Value Reference Range Interpretation Comments MCH (test code = MCH) 28.8 pg 27.0-31.0 Memorial DxkxdzwEJVCXJUOAS1789-57-18 17:02:0088.8[facility] HermannHEMATOLOGY 2015-06-17 17:02:29216Mwttliuu WfzakjeQVXJTPGGDM3113-88-51 17:02:0015.2[facility] OaesthuLAOKCPNEPB3570-31-43 17:02:0032.4[facility] FwxtakgLMAERRBCBO4303-45-23 17:02:009.3[facility] RzyvfugCIZPPPDZDP8704-78-56 17:02:006.8[facility] HermannURINE AND IZXEX5981-33-45 17:02:00Yellow *NA*(06/17/15 12:02 PM)[facility]annUR[facility] AND GFLGS7596-08-30 17:02:00Clear (06/17/15 12:02 PM)[facility]annUR[facility] AND XARVX6290-31-98 17:02:00Negative (06/17/15 12:02 PM)[facility] AND YASZP3295-62-46 17:02:000.2[facility]annURINE AND UTBDA9887-25-00 17:02:00 Moderate *ABN*(06/17/15 12:02 PM)[facility] AND VGYDD6182-57-72 17:02:00Negative (06/17/15 12:02 PM)[facility]ann[facility] AND FWHAM9346-63-41 17:02:00Negative *NA*(06/17/15 12:02 PM)[facility]UR[facility] AND VXOFU7150-30-34 17:02:00Negative *NA*(06/17/15 12:02 PM)[facility] AND EEYSN9359-82-52 17:02:00 Test Item Value Reference Range Interpretation Comments UA pH (test code = UA pH) 6.5 1 5.0-8.0 [facility]UR[facility] AND FRQEO1937-20-72 17:02:00 Test Item Value Reference Range Interpretation Comments UA Spec Grav (test code = UA Spec 1.020 1 Grav) [facility]annURINE GXRD7302-60-86 17:02:00Negative (06/17/15 12:02 PM)[facility] HermannCARDIAC PDYZZSU9041-06-19 17:02:000.10[facility] HermannCHEM PANEL 2015-06-17 17:02:50221Pzhxplsy HermannCHEM VYASJ4863-47-41 17:02:007[facility] HermannCHEM VUJCP1503-17-67 17:02:005.4[facility] HermannCHEM RKWFB6211-95-43 17:02:000.3[facility] HermannCHEM FYMEU5383-19-25 17:02:0012.1[facility] HermannCHEM CPNGA9879-44-78 17:02:007[facility] HermannCHEM CEFVR5378-81-30 17:02:0045[facility] HermannCHEM CMUPW2878-42-10 17:02:001.8[facility] HermannCHEM ESVFQ3514-94-93 17:02:0037[facility] HermannCHEM DBDYP9709-01-69 17:02:000.3[facility] HermannCHEM QUCUK3010-07-82 17:02:0084[facility] HermannCHEM HTCKJ2517-05-03 17:02:007.2 [facility] HermannCHEM VWMKC1244-36-75 17:02:008.4[facility] HermannCHEM PANEL 2015-06-17 17:02:20114Zaonpkkl HermannCHEM YFNDF0820-28-33 17:02:005.1[facility] HermannCHEM UKZBX0293-66-61 17:02:38273Aurjwjvf HermannCHEM JDGSF2432-78-50 17:02:0021[facility] HermannCHEM AJVJE0182-24-73 17:02:20589Hcvhyqwf HermannCHEM MAHPT7157-18-64 17:02:007.50[facility] HermannCHEM GRDGY0508-59-70 17:02:0052 [facility] UfnaztaKAXDGDGKKC1857-51-30 17:02:000.4[facility] HermannHEMATOLOGY 2015-06-17 17:02:000.0[facility] FxkbgxuZIIPOHYPMI2959-44-91 17:02:000.1[facility] BpgevcsAACTLWHUKZ7558-20-24 17:02:0027.3[facility] FjplfbhINDQMBFUTI2132-44-94 17:02:0065.3[facility] LihgyebVYMDQLTBPS7947-42-98 17:02:004.4[facility] NZWWFKADMP8780-49-10 17:02:000.5[facility] PewgoizMSPKYBVPNN7865-03-22 17:02:001.3 [facility] EbkelcqEHRVTRIMXB7422-67-13 17:02:005.6[facility] HermannHEMATOLOGY 2015-06-17 17:02:001.9[facility] AocfdruVIAZEHFPLC6924-25-55 17:02:0028.8[facility] ThtedguSILWOOOHEQ8811-38-23 17:02:009.3[facility] GtkhowqMXQUCKDHHF1909-05-96 17:02:003.24[facility] CeqnduuLJUVCMWSYW0462-52-41 17:02:00 Test Item Value Reference Range Interpretation Comments MCH (test code = MCH) 28.8 pg 27.0-31.0 [facility] BsxzgfjUWLZIYTCRK6180-02-66 17:02:0088.8[facility] HermannHEMATOLOGY 2015-06-17 17:02:36728Mmcngatf ZqbpwuyXWSLJKLCOL3823-91-48 17:02:0015.2[facility] McmmqvmWQMWPGEPVX4106-33-66 17:02:0032.4[facility] YwjqkibZZRSDHBCRO3297-15-42 17:02:009.3[facility] UghjctwWEDPBFXKGA0016-10-00 17:02:006.8[facility]annURINE AND TJKOZ9821-19-39 17:02:00Yellow *NA*(06/17/15 12:02 PM)[facility] AND UMYHW7758-32-75 17:02:00Clear (06/17/15 12:02 PM)[facility] AND QAEUA3749-80-10 17:02:00Negative (06/17/15 12:02 PM)[facility] AND MALFC9717-69-72 17:02:000.2[facility]UR[facility] AND NKBNA1629-64-67 17:02:00 Moderate *ABN*(06/17/15 12:02 PM)[facility] AND TVSAF6770-78-49 17:02:00Negative (06/17/15 12:02 PM)[facility] AND MKIMG7819-20-00 17:02:00Negative *NA*(06/17/15 12:02 PM)[facility] AND BKGLL7782-58-17 17:02:00Negative *NA*(06/17/15 12:02 PM)[facility] AND KMJKQ8270-19-48 17:02:00 Test Item Value Reference Range Interpretation Comments UA pH (test code = UA pH) 6.5 1 5.0-8.0 [facility] AND CUAOM9985-61-10 17:02:00 Test Item Value Reference Range Interpretation Comments UA Spec Grav (test code = UA Spec 1.020 1 Grav) [facility] XDOR2223-07-89 17:02:00Negative (06/17/15 12:02 PM)[facility] MOYBV5988-42-97 21:21:000.4[facility] UXLSE4968-04-65 21:21:0018[facility] YJVJW0155-93-86 21:21:005.0[facility] XCPQD1044-70-28 21:21:0011.8[facility] ZXXGQ1371-25-86 21:21:0049 [facility] NCAOP0983-97-57 21:21:60803Qvxfqrof HermannCHEM PANEL 2014-08-29 21:21:0027[facility] TTHLM9288-10-78 21:21:001.5[facility] TZDAY8786-29-63 21:21:0022[facility] TTWBW5230-98-80 21:21:008.7[facility] URFPL1330-81-86 21:21:003.8[facility] RXNKZ1760-83-88 21:21:21133Mkpfjafo [facility]annCHE[facility] UVLAY8355-62-94 21:21:69401 [facility] FELLJ9673-97-02 21:21:0029[facility] PANEL 2014-08-29 21:21:0061[facility] IIITT8462-22-08 21:21:001.9[facility] IZCIC7712-17-85 21:21:0039[facility] SNBOJ8145-21-32 21:21:006.9[facility] CCXJD0513-05-83 21:21:000.3[facility] GUFIGPQVMI1978-54-10 21:21:000.6[facility] UiuixgyICUKYIVUUH5800-03-39 21:21:001.9 [facility] YgbgutjOYAZXNCYZN0246-19-26 21:21:000.0[facility]annHEMATOLOGY 2014-08-29 21:21:000.0[facility] BrvbntuIFGGWNOSBU3481-77-97 21:21:000.1[facility] NshpbcxYYZDGKYDLM6029-30-04 21:21:003.8[facility] QlkybmpODRHEOTQZL9204-06-64 21:21:000.2[facility] JlyxtikTXQARDEFCK5801-10-74 21:21:0013.9[facility] WMTVAGINML0437-21-74 21:21:0084.1[facility] VktbnybDDTFKEIPEQ4291-57-31 21:21:00 11.8[facility] AfcnhsaDTNBBLLDLO1028-54-26 21:21:00 Test Item Value Reference Range Interpretation Comments PTT (test code = PTT) 32.7 s 22.9-35.8 [facility] MlalzruXLQNLXIPMW1411-33-07 21:21:00 Test Item Value Reference Range Interpretation Comments PT (test code = PT) 12.4 s 12.0-14.7 [facility] GntvuguIHSIJRUFVQ2684-23-33 21:21:000.93[facility]Y 2014-08-29 21:21:009.5[facility] CqjhvijPGPCNUBJPZ5011-43-78 21:21:0032.4[facility] AdrzjkqHQMHVIAVDJ3864-81-77 21:21:0014.2[facility] YmphccoCBAKIDSETY4012-13-44 21:21:08746Fovkvtdo RyhlsepNGOPEVIFLE7962-17-76 21:21:0087.9[facility] DNAOBOQJVL3086-95-38 21:21:0016.5[facility] FvordbcGDFFCPSUJK2942-75-81 21:21:00 4.32[facility] BagmvjfDSHSTEXDBG5555-11-08 21:21:0012.3[facility]annHEMATOLOGY 2014-08-29 21:21:0037.9[facility] NlrlnqqLHJIJWODPJ0095-94-73 21:21:00 Test Item Value Reference Range Interpretation Comments MCH (test code = MCH) 28.5 pg 27.0-31.0 [facility] JPCOS3362-63-53 21:21:000.4[facility]annCHEM PANEL 2014-08-29 21:21:0018[facility] CDGYC4976-80-18 21:21:005.0[facility] PSXKH9765-90-42 21:21:0011.8[facility]CHE[facility] BGUGT8834-47-56 21:21:0049[facility] QSYKG2268-44-37 21:21:94619Dthqxgtf HermannCHEM MIVPX7768-32-56 21:21:0027[facility] CDUMI1041-18-31 21:21:001.5 [facility] LBULR0821-22-04 21:21:0022[facility]annCHE[facility] PANEL 2014-08-29 21:21:008.7[facility] JTMHQ1910-33-82 21:21:003.8[facility]annCHE[facility] DHZUP6422-12-86 21:21:02614Ljrsphgl [facility]annCHE[facility] NBUNX1026-67-82 21:21:64492Mouugdbp HermannCHEM NFQNM9779-35-92 21:21:0029[facility] SGLIP1515-02-38 21:21:0061[facility] TYDKG4694-76-71 21:21:001.9 [facility] OJWTQ1041-98-55 21:21:0039[facility]annCHE[facility] PANEL 2014-08-29 21:21:006.9[facility]CHE[facility] KHIGX3577-88-24 21:21:000.3[facility] JdpexvzVJZISABMKF6332-42-90 21:21:000.6[facility] McxfxioZTMLPSREQN1817-03-42 21:21:001.9[facility] UkmochmTJHTNCEUDI6696-89-48 21:21:000.0[facility] POLVKWRLPQ1195-13-00 21:21:000.0[facility] OumajpkNMKBKJRCJO1819-33-24 21:21:000.1 [facility] HvxzrfyNNBMFWFXIT6883-49-37 21:21:003.8[facility]annHEMATOLOGY 2014-08-29 21:21:000.2[facility] VcspotqMKEKIAFABL2425-02-80 21:21:0013.9[facility] WqovjbzHWXVTTVHUJ3915-84-53 21:21:0084.1[facility] OfcqjvsNAGTHAJEUJ5989-07-21 21:21:0011.8[facility] HbmkhfqTYPFIJCKVD7581-69-57 21:21:00 Test Item Value Reference Range Interpretation Comments PTT (test code = PTT) 32.7 s 22.9-35.8 [facility] CmqoufsIDUUSAPKEB2473-92-63 21:21:00 Test Item Value Reference Range Interpretation Comments PT (test code = PT) 12.4 s 12.0-14.7 [facility] EooyuekMEOJTVQCVR5844-99-41 21:21:000.93[facility]annHEMATOLOGY 2014-08-29 21:21:009.5[facility] DdfzmphRWRPABDPLO4655-87-77 21:21:0032.4[facility] [id number] 21:21:0014.2[facility] [id number] 21:21:78036Gqgkkuas [id number] 21:21:0087.9[facility] [id number] 21:21:0016.5[facility] [id number] 21:21:00 4.32[facility] [id number] 21:21:0012.3[facility]ann[facility] 2014-08-29 21:21:0037.9[facility] [id number] 21:21:00 Test Item Value Reference Range Interpretation Comments MCH (test code = MCH) 28.5 pg 27.0-31.0 [facility]
[2020-02-22 08:59] LABS: Absolute Lymphocytes (CBC) 0.6 K/uL (0.7-4.9); Hematocrit 36.9 % (36.0-45.0); Lymphocytes % 7.1 % (15.3-44.8); MPV 9.3 fL (7.6-11.3)
[2020-02-22] MEDS ORDERED: cloNIDine HCL 0.1 MG TAB ONE (09:05)
[2020-02-22] MEDS ORDERED: FENTANYL CITR 100 MCG/2 ML ONE (09:06)
[2020-02-22 09:07] LABS: Protime INR 0.9
[2020-02-22] MEDS ORDERED: ONDANSETRON 4 MG/2 ML VIAL ONE (09:07)
--- NOTE | 2020-02-22 09:13 | RAD REPORT ---
EXAM DESCRIPTION: Joe Single View02/22/2020 8:59 am CLINICAL HISTORY: Cough COMPARISON: September 2021 FINDINGS: Small left and small to moderate right pleural effusions are present with bibasilar atelec tasis. Heart is mildly enlarged. A central venous catheter has its tip in the superior cava
--- NOTE | 2020-02-22 09:18 | RAD REPORT ---
EXAM DESCRIPTION: CT - Head Brain Wo Cont - 02/22/2020 9:02 am CLINICAL HISTORY: Headache COMPARISON: 2017 TECHNIQUE: Computed axial tomography of the head was obtained. IV contrast was not requested. All CT scans are performed using dose optimization technique as appropriate and may include automated exposure control or mA/KV adjustment according to patient size. FINDINGS: An intracranial bleed is not seen . Deformed right globe Mild prominence of lateral ventricles is unchanged. No extra-axial fluid collection is noted. Mild low-density areas within periventricular, deep and subcortical white matter likely represent isc hemic changes secondary to small vessel disease. Fluid within the sinuses/ mastoids is not seen. IMPRESSION: No acute intracranial abnormality is seen. If patient's symptoms persist MRI of the bra in would be recommended.
[2020-02-22 09:45] LABS: Albumin 3.5 g/dL (3.4-5.0); Bilirubin Direct 0.1 mg/dL (0-0.2); Bilirubin Total 0.4 mg/dL (0.2-1.0); Magnesium 2.3 mg/dL (1.8-2.4); Potassium 4.9 mmol/L (3.5-5.1); Protein, Total 10.4 g/dL (6.4-8.2); Troponin (Emerg Dept Use Only) 0.13 ng/mL (0.0-0.045)
--- NOTE | 2020-02-22 10:10 | ER ---
Nurse's Notes [facility] Name: Yamile Brooke Age: 50 yrs Sex: Female : 1970 Arrival Date: 02/22/2020 Time: 08:18 Bed 8 Private MD: Diagnosis: Headache;Essential (primary) hypertension;Pleural effusion in conditions classified elsewhere;End stage renal disease-on HD;Type 2 diabetes mellitus Presentation: 02/21 08:28 Chief complaint: Patient states: MIGRAINE FOR "DAYS". Coronavirus screen: At this time, bp the client does not indicate any symptoms associated with coronavirus-19. Ebola Screen: No symptoms or risks identified at this time. Initial Sepsis Screen: Does the patient meet any 2 criteria? No. Patient's initial sepsis screen is negative. Does the patient have a suspected source of infection? No. Patient's initial sepsis screen is negative. Risk Assessment: Do you want to hurt yourself or someone else? Patient reports no desire to harm self or others. Onset of symptoms is unknown. 08:28 Method Of Arrival: Wheelchair bp 08:28 Acuity: ARIE 3 bp Triage Assessment: 08:30 Headache History: The patient has had previous headaches and this one is similar to bp previous episodes. General: Appears distressed, uncomfortable, Behavior is cooperative, appropriate for age, anxious. Pain: Pain currently is 8 out of 10 on a pain scale. Pain began 2-3 days ago. Also complains of photophobia. EENT: No deficits noted. Neuro: Reports headache. Cardiovascular: No deficits noted. Respiratory: No deficits noted. GI: No signs and/or symptoms were reported involving the gastrointestinal system. : No signs and/or symptoms were reported regarding the genitourinary system. Derm: No deficits noted. Musculoskeletal: No deficits noted. Historical: - Allergies: 08:30 tramadol; bp - Home Meds: 08:30 UNKNOWN [Active]; bp - PMHx: 08:30 ADD/ADHD; Anemia; CHF; Diabetes - NIDDM; Dialysis; Tues, Thurs, Sat; ESRD; bp Hyperlipidemia; Hypertension; right arm blood clots; right eye blindness; - Immunization history:: Adult Immunizations up to date. - Social history:: Smoking status: Patient denies any tobacco usage or history of. - Family history:: not pertinent. Screenin:32 Abuse screen: Denies threats or abuse. Denies injuries from another. Nutritional bp screening: No deficits noted. Tuberculosis screening: No symptoms or risk factors identified. Fall Risk None identified. Assessment: 08:32 General: SEE TRIAGE NOTE. bp 08:55 Reassessment: PT TO CT WITH HOG STOMACH PREPARER. bp 09:00 Neuro: Level of Consciousness is awake, alert, obeys commands, Oriented to Appropriate bp for age. 10:00 Reassessment: No changes from previously documented assessment. Patient and/or family bp updated on plan of care and expected duration. Pain level reassessed. Patient is alert, oriented x 3, equal unlabored respirations, skin warm/dry/pink. LP CONSENT SIGNED AND WITNESSED. PT PLACED IN POSITION. 11:00 Reassessment: No changes from previously documented assessment. Patient and/or family bp updated on plan of care and expected duration. Pain level reassessed. Patient is alert, oriented x 3, equal unlabored respirations, skin warm/dry/pink. DR LORENZO AT B/S FOR ADMIT. 11:24 Reassessment: ADMIT COMPLETE. TRANSPORT PENDING AFTER VENOUS ACCESS ACHIEVED. bp 13:04 Reassessment: VENOUS ACCESS ACHIEVED WITH U/S GUIDED MIDLINE. TRANSPORT PENDING. bp Vital Signs: 08:28 BP 198 / 116; Pulse 117; Resp 19; Temp 98.1; Pulse Ox 97% ; Weight 68.04 kg; Height 5 bp ft. 8 in. (172.72 cm); 08:45 BP 185 / 118; Pulse 117; Resp 16; Pulse Ox 99% ; bp 10:00 BP 193 / 115; Pulse 108; Resp 16; Pulse Ox 100% ; bp 11:00 BP 190 / 106; Pulse 114; Resp 16; Pulse Ox 100% ; bp 11:23 BP 167 / 97; Pulse 82; Resp 16; Temp 98.1; Pulse Ox 100% ; bp 13:00 BP 165 / 89; Pulse 89; Resp 16; Pulse Ox 99% ; bp 08:28 Body Mass Index 22.81 (68.04 kg, 172.72 cm) bp [place] Coma Score: 08:38 Eye Response: spontaneous(4). Verbal Response: oriented(5). Motor Response: obeys heather commands(6). Total: 15. ED Course: 08:18 Patient arrived in ED. ag5 08:23 Heber Gandara, MILA is Primary Nurse. bp 08:23 Cesar Landrum MD is Attending Physician. heather 08:29 Triage completed. bp 08:30 Arm band placed on. bp 08:32 Patient has correct armband on for positive identification. Bed in low position. Call bp light in reach. Side rails up X2. 08:45 Inserted saline lock: 22 gauge in right antecubital area, using aseptic technique. bp Blood collected. 08:55 CT Head Brain wo Cont Sent. bp 08:59 XRAY Chest (1 view) In Process Unspecified. EDMS 09:02 CT Head Brain wo Cont In Process Unspecified. EDMS 10:09 Livan Lorenzo MD is Hospitalizing Provider. heather 10:50 IV discontinued, IV INFILTRATED. bp 10:50 Assist provider with lumbar puncture: Set up LP tray. Performed by Cesar Landrum MD bp CSF is clear. Puncture site dressed with band aid, Procedure was successful. Patient tolerated well. 13:01 Inserted 18 G RUE MIDLINE. bp Administered Medications: 08:33 CANCELLED (Duplicate Order): NS 0.9% 1000 ml IV at 125 ml/hr continuous heather 08:50 Drug: fentaNYL (PF) 25 mcg Route: IVP; Site: right antecubital; bp 11:02 Follow up: Response: Pain is decreased bp 08:50 Drug: fentaNYL (PF) 25 mcg Route: IVP; Site: right antecubital; bp 11:02 Follow up: Response: Pain is decreased bp 08:50 Drug: Zofran (Ondansetron) 4 mg Route: IVP; Site: right antecubital; bp 11:02 Follow up: Response: No adverse reaction bp 08:50 Drug: cloNIDine 0.1 mg Route: PO; bp 11:02 Follow up: Response: No adverse reaction bp 10:28 Drug: hydrALAZINE 10 mg Route: IV; Rate: per protocol; Site: right antecubital; bp 11:01 Follow up: Response: No adverse reaction; IV Status: Completed infusion bp 10:28 Drug: HydrALAZINE 25 mg Route: PO; bp 11:01 Follow up: Response: No adverse reaction bp Outcome: 10:10 Decision to Hospitalize by Provider. heather 11:24 Admitted to Med/surg accompanied by tech, family with patient, via wheelchair, room bp 406, with chart, Report called to KAREN ZARAGOZA 11:24 Condition: stable 11:24 Instructed on the need for admit. 13:37 Patient left the ED. bp Signatures: Dispatcher [employer] Cesar Mackey MD MD cha Peltier, Brian RN RN bp Sivakumar Rust ag5 Corrections: (The following items were deleted from the chart) 13:04 11:24 Reassessment: ADMIT COMPLETE. TRANSPORT PENDING bp bp
--- NOTE | 2020-02-22 10:10 | EDPHYS ---
Physician Documentation [facility] Name: Yamile Brooke Age: 50 yrs Sex: Female : 1970 Arrival Date: 02/22/2020 Time: 08:18 Bed 8 Private MD: ED Physician Cesar Landrum HPI: 02/21 08:34 This 50 yrs old Black Female presents to ER via Wheelchair with complaints of Headache, heather Worst Ever. 08:34 The patient complains of pain to the top of head, forehead, left frontal area, left heather side of the back of head, left occipital area, left base of the skull, right frontal area, right side of the back of head, right occipital area and right base of the skull. The patient describes the headache as constant. Onset: The symptoms/episode began/occurred 1 week(s) ago. Associated signs and symptoms: The patient has no apparent associated signs or symptoms. Severity of symptoms: At its worst the pain was moderate, in the emergency department the pain is unchanged. Headache History: The patient has had previous headaches and this one is similar to previous episodes. The symptoms are alleviated by nothing. the symptoms are aggravated by lights, movement, noise. The patient has experienced similar episodes in the past, several times. Historical: - Allergies: 08:30 tramadol; bp - Home Meds: 08:30 UNKNOWN [Active]; bp - PMHx: 08:30 ADD/ADHD; Anemia; CHF; Diabetes - NIDDM; Dialysis; Tues, Thurs, Sat; ESRD; bp Hyperlipidemia; Hypertension; right arm blood clots; right eye blindness; - Immunization history:: Adult Immunizations up to date. - Social history:: Smoking status: Patient denies any tobacco usage or history of. - Family history:: not pertinent. ROS: 08:34 Constitutional: Negative for fever, chills, and weight loss, Eyes: Negative for injury, heather pain, redness, and discharge, ENT: Negative for injury, pain, and discharge, Neck: Negative for injury, pain, and swelling, Cardiovascular: Negative for chest pain, palpitations, and edema, Respiratory: Negative for shortness of breath, cough, wheezing, and pleuritic chest pain, Abdomen/GI: Negative for abdominal pain, nausea, vomiting, diarrhea, and constipation, Back: Negative for injury and pain, : Negative for injury, bleeding, discharge, and swelling, MS/Extremity: Negative for injury and deformity, Skin: Negative for injury, rash, and discoloration, Psych: Negative for depression, anxiety, suicide ideation, homicidal ideation, and hallucinations, Allergy/Immunology: Negative for hives, rash, and allergies, Endocrine: Negative for neck swelling, polydipsia, polyuria, polyphagia, and marked weight changes, Hematologic/Lymphatic: Negative for swollen nodes, abnormal bleeding, and unusual bruising. 08:34 Neuro: Positive for headache. Exam: 08:34 Abdomen/GI: heather 08:34 Constitutional: This is a well developed, well nourished patient who is awake, alert, heather and in no acute distress. Head/Face: Normocephalic, atraumatic. Eyes: Pupils equal round and reactive to light, extra-ocular motions intact. Lids and lashes normal. Conjunctiva and sclera are non-icteric and not injected. Cornea within normal limits. Periorbital areas with no swelling, redness, or edema. ENT: Nares patent. No nasal discharge, no septal abnormalities noted. Tympanic membranes are normal and external auditory canals are clear. Oropharynx with no redness, swelling, or masses, exudates, or evidence of obstruction, uvula midline. Mucous membranes moist. Neck: Trachea midline, no thyromegaly or masses palpated, and no cervical lymphadenopathy. Supple, full range of motion without nuchal rigidity, or vertebral point tenderness. No Meningismus. Chest/axilla: Normal chest wall appearance and motion. Nontender with no deformity. No lesions are appreciated. Cardiovascular: Regular rate and rhythm with a normal S1 and S2. No gallops, murmurs, or rubs. Normal PMI, no JVD. No pulse deficits. Respiratory: Lungs have equal breath sounds bilaterally, clear to auscultation and percussion. No rales, rhonchi or wheezes noted. No increased work of breathing, no retractions or nasal flaring. Abdomen/GI: Soft, non-tender, with normal bowel sounds. No distension or tympany. No guarding or rebound. No evidence of tenderness throughout. Back: No spinal tenderness. No costovertebral tenderness. Full range of motion. Skin: Warm, dry with normal turgor. Normal color with no rashes, no lesions, and no evidence of cellulitis. MS/ Extremity: Pulses equal, no cyanosis. Neurovascular intact. Full, normal range of motion. Neuro: Awake and alert, GCS 15, oriented to person, place, time, and situation. Cranial nerves II-XII grossly intact. Motor strength 5/5 in all extremities. Sensory grossly intact. Cerebellar exam normal. Normal gait. Psych: Awake, alert, with orientation to person, place and time. Behavior, mood, and affect are within normal limits. 10:04 ECG was reviewed by the Attending Physician. heather Vital Signs: 08:28 BP 198 / 116; Pulse 117; Resp 19; Temp 98.1; Pulse Ox 97% ; Weight 68.04 kg; Height 5 bp ft. 8 in. (172.72 cm); 08:45 BP 185 / 118; Pulse 117; Resp 16; Pulse Ox 99% ; bp 10:00 BP 193 / 115; Pulse 108; Resp 16; Pulse Ox 100% ; bp 11:00 BP 190 / 106; Pulse 114; Resp 16; Pulse Ox 100% ; bp 11:23 BP 167 / 97; Pulse 82; Resp 16; Temp 98.1; Pulse Ox 100% ; bp 13:00 BP 165 / 89; Pulse 89; Resp 16; Pulse Ox 99% ; bp 08:28 Body Mass Index 22.81 (68.04 kg, 172.72 cm) bp [place] Coma Score: 08:38 Eye Response: spontaneous(4). Verbal Response: oriented(5). Motor Response: obeys heather commands(6). Total: 15. Procedures: 10:05 Lumbar Puncture: clear fluid. Puncture site dressed with band aid, Patient tolerated heather well. MDM: 08:23 Patient medically screened. heather 08:38 Differential diagnosis: cluster headache, cerebral vascular accident, meningitis, heather sinusitis, subarachnoid bleed, subdural hematoma, temporal arteritis, tension headache. Data reviewed: vital signs, nurses notes, lab test result(s), EKG, radiologic studies, CT scan, plain films. Data interpreted: nurse monitoring: rate is 117 beats/min, Pulse oximetry: on room air is 97 %. Test interpretation: by ED physician or midlevel provider: ECG, plain radiologic studies. Counseling: I had a detailed discussion with the patient and/or guardian regarding: the historical points, exam findings, and any diagnostic results supporting the discharge/admit diagnosis, the presence of at least one elevated blood pressure reading (>120/80) during this emergency department visit, lab results, radiology results. 02/21 08:27 Order name: Basic Metabolic Panel [facility] 02/21 08:27 Order name: CBC with Diff [facility] 02/21 08:27 Order name: LFT's; Complete Time: 09:55 [facility] 02/21 08:27 Order name: Magnesium; Complete Time: 09:55 [facility] 02/21 08:27 Order name: NT PRO-BNP; Complete Time: 09:55 [facility] 02/21 08:27 Order name: PT-INR; Complete Time: 09:33 [facility] 02/21 08:28 Order name: Troponin (emerg Dept Use Only); Complete Time: 09:55 [facility] 02/21 08:28 Order name: Urine Culture [facility] 02/21 08:28 Order name: Basic Metabolic Panel; Complete Time: 09:55 [facility] 02/21 08:28 Order name: CBC with Automated Diff; Complete Time: 13:17 [facility] 02/21 10:03 Order name: Spinal Fluid Profile: see full er order vsheet; Complete Time: 13:17 [facility] 02/21 11:39 Order name: CSF Culture [facility] 02/21 11:39 Order name: CSF Bacterial Antigens (Tube 1 [facility] 02/21 12:06 Order name: Body Fluid Cell Count; Complete Time: 13:17 [facility] 02/21 08:28 Order name: XRAY Chest (1 view); Complete Time: 09:33 [facility] 02/21 08:28 Order name: EKG; Complete Time: 08:28 [facility] 02/21 08:28 Order name: Cardiac monitoring; Complete Time: 08:55 [facility] 02/21 08:28 Order name: EKG - Nurse/Tech; Complete Time: 11:03 [facility] 02/21 08:28 Order name: IV Saline Lock; Complete Time: 08:55 [facility] 02/21 08:28 Order name: CT Head Brain wo Cont; Complete Time: 09:33 [facility] 02/21 10:15 Order name: CONS Physician Consult [facility] 02/21 10:15 Order name: CONS Physician Consult [facility] 02/21 12:30 Order name: CBC Smear Scan; Complete Time: 13:17 [facility] 02/21 08:28 Order name: Labs collected and sent; Complete Time: 08:55 [facility] 02/21 08:28 Order name: O2 Per Protocol; Complete Time: 08:34 [facility] 02/21 08:28 Order name: O2 Sat Monitoring; Complete Time: 08:34 [facility] 02/21 10:03 Order name: Lumbar Puncture Consent; Complete Time: 11: [facility] 02/21 10:03 Order name: Lumbar Puncture Setup; Complete Time: 11:05 [facility] EC:04 Rate is 107 beats/min. Rhythm is regular. QRS [place] is Normal. [place] interval is normal. heather QRS interval is normal. QT interval is normal. No Q waves. T waves are Normal. No ST changes noted. Clinical impression: NSR w/ Non-specific ST/T Changes and No evidence of ischemia. Interpreted by me. Reviewed by me. Administered Medications: 08:33 CANCELLED (Duplicate Order): NS 0.9% 1000 ml IV at 125 ml/hr continuous heather 08:50 Drug: fentaNYL (PF) 25 mcg Route: IVP; Site: right antecubital; bp 11:02 Follow up: Response: Pain is decreased bp 08:50 Drug: fentaNYL (PF) 25 mcg Route: IVP; Site: right antecubital; bp 11:02 Follow up: Response: Pain is decreased bp 08:50 Drug: Zofran (Ondansetron) 4 mg Route: IVP; Site: right antecubital; bp 11:02 Follow up: Response: No adverse reaction bp 08:50 Drug: cloNIDine 0.1 mg Route: PO; bp 11:02 Follow up: Response: No adverse reaction bp 10:28 Drug: hydrALAZINE 10 mg Route: IV; Rate: per protocol; Site: right antecubital; bp 11:01 Follow up: Response: No adverse reaction; IV Status: Completed infusion bp 10:28 Drug: HydrALAZINE 25 mg Route: PO; bp 11:01 Follow up: Response: No adverse reaction bp Disposition: 02/22/20 10:10 Hospitalization ordered by Livan Schofield for Inpatient Admission. Preliminary diagnosis are Headache, Essential (primary) hypertension, Pleural effusion in conditions classified elsewhere, End stage renal disease - on HD, Type 2 diabetes mellitus. - Bed requested for Telemetry/MedSurg (Inpatient). - Status is Inpatient Admission. bp - Condition is Fair. - Problem is new. - Symptoms have improved. Signatures: Dispatcher [employer] EDCesar Holman MD MD cha Martinez, Eric em1 Heber Gandara, RN RN bp Corrections: (The following items were deleted from the chart) 08:33 08:28 NS 0.9% 1000 ml IV at 125 ml/hr continuous ordered. [facility] 10:57 10:10 Hospitalization Ordered by A Chandu IGLESIAS for Inpatient Admission. Preliminary em1 diagnosis is Headache; Essential (primary) hypertension; Pleural effusion in conditions classified elsewhere; End stage renal disease - on HD; Type 2 diabetes mellitus. Bed requested for Telemetry/MedSurg (Inpatient). Status is Inpatient Admission. Condition is Fair. Problem is new. Symptoms have improved. [facility] 13:37 10:57 02/22/2020 10:10 Hospitalization Ordered by A Chandu IGLESIAS for Inpatient Admission. bp Preliminary diagnosis is Headache; Essential (primary) hypertension; Pleural effusion in conditions classified elsewhere; End stage renal disease - on HD; Type 2 diabetes mellitus. Bed requested for Telemetry/MedSurg (Inpatient). Status is Inpatient Admission. Condition is Fair. Problem is new. Symptoms have improved. em1
[2020-02-22] MEDS ORDERED: HYDRALAZINE HCL 10 MG TABLET ONE (10:36)
[2020-02-22] MEDS ORDERED: HYDRALAZINE HCL 20 MG/ML VIAL ONE (10:36)
[2020-02-22] MEDS ORDERED: LIDOCAINE 1% 20 ML MDV ONE (10:50)
[2020-02-22 11:33] LABS: CSF Glucose 74 mg/dL (40-70)
--- NOTE | 2020-02-22 12:01 | HP ---
Date of Admission: 02/22/2020 Chief Complaint: Headache. History Of Present Illness: This is a 50-year-old pleasant female patient, who has multiple comorbidities on hemodialysis for end-stage renal disease. She missed her last hemodialysis because of her headache and today, she went to have dialysis and only had 1 hour of dialysis. After that, she came to emergency room because of the headache. I evaluated her via tele visit on 02/20/2020 because of this headache problem that she has been complaining for last 1 week. She is having intermittent headache on the left frontal region. Denies any fever, chills, nausea, or vomiting. No cough congestion. No sinus drainage or any nasal discharge. She was prescribed prednisone and the patient says that yesterday she did not have any headache, but today her headache came back when she came to emergency room. After she was evaluated, ER physician contacted me requesting admission to the hospital and I saw her in the emergency room. Allergies: NO KNOWN ALLERGIES. Medications: She takes gabapentin, nifedipine, and prednisone which was prescribed recently. She was also taking aspirin in the past, which I am not sure if she is currently taking it or not. Review of Systems: CONTACT PRINTER DRY FILM: As mentioned above. All other systems reviewed and negative. Past Medical History: Significant for diabetes mellitus which is now diet controlled and has diabetic neuropathy. Hypertension, mixed hyperlipidemia, coronary artery disease, chronic systolic congestive heart failure, gastroparesis, hepatitis C, end-stage renal disease, on hemodialysis. Past Surgical History: Significant for coronary artery stent placement in June 2016 and hysterectomy. Family History: Father with coronary artery disease, hypertension, and hyperlipidemia. Mother with hypertension, diabetes. Social History: Negative for smoking and alcohol use, 1 drink rarely. Physical Examination: VITAL SIGNS: Height 5 feet, 8 inches, weight 150 lbs, temperature 97.7, pulse 98, respiratory rate 19, blood pressure 177/89, oxygen saturation 95%. General: Awake, alert, oriented, not in distress. HEENT: Head atraumatic, normocephalic. Opacity of bilateral cornea and patient is legally blind. Mouth, no thrush or edema noted. Ears/Nose, no mass, lesion, discharge noted. Neck: Supple. No JVD, lymph nodes, bruit, thyromegaly noted. Lungs: Bilateral good equal air entry. Clear to auscultation. No rhonchi. No rales. Heart: Normal heart sounds, no murmur or gallop. Abdomen: Soft, bowel sounds normal. No guarding, rigidity, tenderness, mass, hepatosplenomegaly, distention, or bruit noted. Extremities: No leg edema. No calf tenderness. Skin: No rash, ulcer, cellulitis. Lymphatics: No lymph node enlargement in neck, supraclavicular, infraclavicular region. Neuro: No focal neurological deficit. Chest: Unremarkable. External Genitalia: Deferred. Rectal: Deferred. CONTACT PRINTER DRY FILM: Neck is supple. No evidence of any meningeal irritation. Laboratory Data: Chest x-ray, small left pleural effusion and a small to moderate right pleural effusion with bibasilar atelectasis. CAT scan of the head negative for any acute intracranial changes. INR 0.10. White count 8.9, hemoglobin 12.5, platelets 201. Sodium 135, potassium 4.9, chloride 99, bicarb 25, BUN 52, creatinine 9.86, glucose 164. BNP 25,836. Liver function tests unremarkable. Impression: 1. Headache. 2. Hypertension. 3. ESRD, on hemodialysis. 4. Mixed hyperlipidemia. 5. Coronary artery disease. 6. Chronic systolic congestive heart failure. 7. Gastroparesis, secondary to diabetes. 8. Diabetic neuropathy. 9. Legally blind. Plan: Admit the patient to hospital for further evaluation and management of this problem. Will consult neurologist, Dr. Alcala who is on-call. The patient will have a spinal tap in the emergency room today and we will continue prednisone and give pain medication for headache as needed and we may need to consider doing MRI of her head but unfortunately we will not be able to do it over the weekend, so we will wait for Dr. Alcala's recommendation of this. Plan of treatment discussed with her. We will follow up on spinal tap results. Will monitor BP and adjust medication as it becomes necessary. Consult front office java developer for dialysis support. VINCENT/MODL Voice ID: [id number]
[2020-02-22 12:04] LABS: Body Fluid Source CSF; Fluid Total Volume 3.5 ml
[2020-02-22 12:05] LABS: Appearance CLEAR (CLEAR); Body Fluid Source CSF; Body Fluid WBC 1 /mm^3; Body Fluid WBC 2 /mm^3; Color of fluid Colorless (COLORLESS)
[2020-02-22 12:30] LABS: Blood Morphology Comment NOT SEEN (NOT SEEN); Platelet Estimate ADEQ; White Blood Cell Scan OK (OK)
[2020-02-22] MEDS ORDERED: ACETAMINOPHEN 500 MG TAB PO PRN (13:33)
[2020-02-22] MEDS: FENTANYL CITR 100 MCG/2 ML IV PRN ×2 (13:54→20:20)
[2020-02-22 14:23] VITALS: BMI 22.8
[2020-02-22] MEDS: carvediloL 3.125 MG TAB PO SCH (17:21)
[2020-02-22] MEDS: HYDRALAZINE HCL 25 MG TABLET PO SCH (20:20)
--- NOTE | 2020-02-22 20:22 | CON ---
Reason For Consultation: Consultation called because of severe headache by Dr. Schofield. History Of Present Illness: Ms. 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 Further questioning reveals that the patient has had headaches since her teenage years. Headaches seem to occur in clusters wher e she would have headaches for few weeks at a time, then no headaches perhaps even up to years. Head aches are almost always on the right side of her face. There may be swelling of the face. She has a runny nose and she has severe explosive development of the headache within 30 minutes to an hour, be coming very severe, headache actually mostly lasts less than 2 hours, but then recur again. She was never diagnosed with any form of cluster headaches, even though the headache seem to have a clear lopez cription of that type. She said [id number] medications may help the headaches, but apparently headaches may resolve, but then recur again even without intervention. She denies any focal numbness or weakness in the arm and leg with the headaches. No loss of speech or swallowing with the headach es. She has tried sinus medications, which have not stopped her headaches. Earlier today, she did r eceive fentanyl and headache did subside to 0. The nursing staff have noted that while the pain agai n did go away to 0 actually at her evaluation by the nursing staff at 4 p.m. today, she had a 0 heada gilma rating, earlier it was 5/10. At the time of my evaluation, it was returning somewhere around 3 o r so/10. Her head CT scan showed no acute ischemic or hemorrhagic change, however, there was a mild low-density areas in the periventricular deep and subcortical white matter consistent with small vess el ischemic disease. She had a lumbar puncture, which as expected showed elevated glucose of 74 and secondarily elevated protein, likely related to her diabetes. White blood cell count on the first tu be was 2 and the second tube 1, red blood cells on the first tube 2 and the second 26, otherwise it w as clear and colorless and not xanthochromic. Her chemistries showed creatinine of 9.86 as she has c hronic renal failure. Liver function studies show slightly elevated alkaline phosphatases, is otherw ise unremarkable. INR 0.9. Hemoglobin, hematocrit, and white blood cell count are all normal. Her neutrophils were elevated at 80.9. White blood cell count was 8.9. Past Medical History: As noted. Past Surgical History: Coronary artery stents in June 2016, hysterectomy. Allergies: NO KNOWN DRUG ALLERGIES. Medications: At home, gabapentin for peripheral neuropathy, nifedipine, aspirin, and reported predni sone at home. Family History: Coronary artery disease, hypertension, and dyslipidemia in father. Hypertension and diabetes in mother. Social History: No cigarette use, but rare alcohol consumption. Review of Systems: As indicated, she is blind. Otherwise, headaches as noted would recur every so often, she says actua lly "once in a blue hernandez." Otherwise, negative on all systems review. Physical Examination: Vital Signs: Blood pressure 151/73, pulse 86, respiratory rate 16, temperature 97.7, oxygen saturati on 97%. Weight 150 pounds, height 5 feet 8 inches, BMI 22.8. General: Ms. Brooke is resting in bed. She is in no significant distress. HEENT: She is normocephalic, atraumatic. She does squint and hold the eyes closed. She has no dete ctable vision in both eyes. Otherwise, she is atraumatic. Oropharynx is moist. Neck: Supple. Chest: Clear. Abdomen: Soft. Extremities: No significant edema or cyanosis. Mild stocking-glove loss. Neurologic: Alert, oriented to situation, place, person. Blind bilaterally. Face is slightly asymm etric in appearance with swelling noted over the left face compared to the right side. She does note there is a feeling of tickling in the left nostril and sometimes runny nose, although the nostril as sociated with the headaches. Otherwise, sensation is intact in V1, V2, and V3. Face moving symmetri leonardo. No focal deficits on cranial nerves. Motor examination, she is equally strong in the upper a nd lower extremities, 5/5. Sensory exam, stocking glove loss in legs and arms. Reflexes 1+ upper an d lower extremities. Coordination intact in upper and lower extremities. Gait, she does have stance in right arm swing when she ambulated with physical therapy. Assessment: Ms. Brooke is a 50-year-old patient with episodic cluster headaches and multiple comor bid conditions as documented above, including hypertension, diabetes mellitus, coronary artery diseas e, who is in the midst of 1 weeks cluster of headaches. She says it began about a week ago. Plan: 1.High-flow oxygen, may be 10-15 L by nasal cannula. Usually within 5 minute should help resolve he r headache. 2.Verapamil 40 mg twice daily as a preventive. 3.May consider Ubrelvy 50 or 100 mg for abortive headache treatment if it recurs. There is also Anupama kalyn, which is sprayed and may be helpful to knock out headaches may also consider sumatrip king injectables along with other nasally applied triptans and to abort her any potential cluster head aches. Otherwise, she may be discharged home and follow up in Dr. Alcala's clinic in 1 month. Breanna simpson a headache diary. DAYSI/SUDHA Voice ID: [id number] Report ID: [id number]
--- NOTE | 2020-02-22 20:28 | P.CNS ---
Date of Consult: 02/22/20 Reason for Consult: ESRD Requesting Physician: Vasile Schofield Chief Complaint: Migraine History of Present Illness: 50 yo BF DM, CHF presented to the ER with several days of a severe, progressive Headache. She was seen at dialysis this morning and was unable to complete her dialysis treatment. She requested to go to the ER for further evaluation. This is a 50-year-old pleasant female patient, who has multiple comorbidities on hemodialysis for end-stage renal disease. She missed her last hemodialysis because of her headache and today, she went to havedialysis and only had 1 hour of dialysis. After that, she came to emergency room because of the headache. I evaluated her via tele visit on 02/20/2020 because of this headache problem that she has been complaining for last 1 week. She is having intermittent headache on the left frontal region. Denies any fever, chills, nausea, or vomiting. No cough congestion. No sinus drainage or any nasal discharge. She was prescribed prednisone and the patient says that yesterday she did not have any headache, but today her headache came back when she came to emergency room. 08:34 This 50 yrs old Black Female presents to ER via Wheelchair with complaints of Headache, heather Worst Ever. 08:34 The patient complains of pain to the top of head, forehead, left frontal area, left heather side of the back of head, left occipital area, left base of the skull, right frontal area, right side of the back of head, right occipital area and right base of the skull. The patient describes the headache as constant. Onset: The symptoms/episode began/occurred 1 week(s) ago. Associated signs and symptoms: The patient has no apparent associated signs or symptoms. Severity of symptoms: At its worst the pain was moderate, in the emergency department the pain is unchanged. Headache H istory: The patient has had previous headaches and this one is similar to previous episodes. The symptoms are alleviated by nothing. the symptoms are aggravated by lights, movement, noise. The patient has experienced similar episodes in the past, several times. Allergies tramadol Allergy (Mild, Verified 10/02/19 23:02) Anaphylaxis Home medications list reviewed: Yes Home Medications: Gabapentin 2 cap PO BID 02/22/20 NIFEdipine [Nifedipine ER] 1 tab PO BID 02/22/20 - Past Medical/Surgical History Diabetic: Yes -: HTN -: DM-2 -: Dyslipidemia -: anemia -: esrd -: Hep C -: CHF -: hysterectomy -: x2 -: king martínez (2016) - Family History Mother Medical History: Hypertension Father Medical History: Heart disease, Hypertension, Diabetes - Social History Smoking Status: Never smoker Alcohol use: No CD- Drugs: No Caffeine use: No Place of Residence: Home Review of Systems 10-point ROS is otherwise unremarkable General: Weakness, Malaise Neurological: Weakness Physical Examination Temp Pulse Resp BP Pulse Ox 97.7 F 86 17 151/73 H 97 02/22/20 16:00 02/22/20 17:21 02/22/20 16:00 02/22/20 17:21 02/22/20 16:00 General: Oriented x3, Cooperative, Moderate distress HEENT: Atraumatic Neck: Supple Respiratory: Clear to auscultation bilaterally Cardiovascular: No edema, Regular rate/rhythm Gastrointestinal: Soft and benign, Non-distended Musculoskeletal: No clubbing, No contractures Integumentary: No rashes, No cyanosis Neurological: Normal speech Laboratory Data (last 24 hrs) 02/22/20 08:45: PT 10.6, INR 0.90 02/22/20 08:45: WBC 8.9, Hgb 12.5, Hct 36.9, Plt Count 201 02/22/20 08:45: Sodium 135 L, Potassium 4.9, BUN 52 H, Creatinine 9.86 H*, Glucose 164 H, Magnesium 2.3, Total Bilirubin 0.4, AST 18, ALT 13, Alkaline Phosphatase 120 H Imagings Data: EXAM DESCRIPTION: CT - Head Brain Wo Cont - 02/22/2020 9:02 am CLINICAL HISTORY: Headache COMPARISON: 2016 TECHNIQUE: Computed axial tomography of the head was obtained. IV contrast was not requested. All CT scans are performed using dose optimization technique as appropriate and may include automated exposure control or mA/KV adjustment according to patient size. FINDINGS: An intracranial bleed is not seen . Deformed right globe Mild prominence of lateral ventricles is unchanged. No extra-axial fluid collection is noted. Mild low-density areas within periventricular, deep and subcortical white matter likely represent ischemic changes secondary to small vessel disease. Fluid within the sinuses/ mastoids is not seen. IMPRESSION: No acute intracranial abnormality is seen. If patient's symptoms persist MRI of the brain would be recommended. EXAM DESCRIPTION: [facility] Single View02/22/2020 8:59 am CLINICAL HISTORY: Cough COMPARISON: September 2021 FINDINGS: Small left and small to moderate right pleural effusions are present with bibasilar atelectasis. Heart is mildly enlarged. A central venous catheter has its tip in the superior cava Conclusions/Impression: A/ ESRD on HD Hyperkalemia HTN with CKD/ CHF Diastolic CHF, chronic DM II with CKD Anemia in CKD CARMELITA/ Secondary HyperPTH P/ Continue current POC and Medications. Arrange for acute HD tomorrow due to missed HD and incomplete dialysis. Restart home medications as indicated. Start Vitamin D. Start Renvela. No NSAIDs. AM labs. Daily weight. Thank you kindly for the consultation.
[2020-02-22] MEDS ORDERED: MANNITOL 25% 12.5 GM/50 ML VIAL IV PRN (20:41)
[2020-02-22] MEDS ORDERED: NA CHLORIDE 0.9% 1,000 ML IV PRN (20:41)
[2020-02-22] MEDS: VERAPAMIL HCL 80 MG TABLET PO SCH (20:47)
[2020-02-22] MEDS: DOCUSATE NA 100 MG CAP PO SCH (21:00)
[2020-02-22] MEDS ORDERED: ALBUMIN HUMAN 25% 50 ML IV SCH (21:00)
[2020-02-23] MEDS: FENTANYL CITR 100 MCG/2 ML IV PRN ×3 (00:09→08:04)
[2020-02-23] MEDS: carvediloL 3.125 MG TAB PO SCH ×2 (05:14→16:22)
[2020-02-23] MEDS ORDERED: HYDRALAZINE HCL 20 MG/ML VIAL IV ONE (07:03)
[2020-02-23] MEDS ORDERED: AMLODIPINE 5 MG TAB PO ONE (07:03)
[2020-02-23] MEDS: VERAPAMIL HCL 80 MG TABLET PO SCH ×2 (07:32→20:21)
[2020-02-23] MEDS: SEVELAMER CARBONATE 800 MG TABLET PO SCH ×3 (08:00→16:23)
[2020-02-23] MEDS: DOCUSATE NA 100 MG CAP PO SCH ×2 (09:00→20:22)
[2020-02-23] MEDS: MULTIVITAMINS,THERAPEUT 1 TAB PO SCH (09:00)
[2020-02-23 09:03] LABS: Absolute Lymphocytes (CBC) 1.5 K/uL (0.7-4.9); Basophils % 1.1 % (0-1.3); Hematocrit 32.7 % (36.0-45.0); Lymphocytes % 20.6 % (15.3-44.8); MPV 9.2 fL (7.6-11.3); RBC Red Blood Cell Count 3.53 M/uL (3.86-4.86)
[2020-02-23 09:18] LABS: C-Reactive Protein 3.49 mg/L (<3.00); Phosphorus 7.4 mg/dL (2.5-4.9); Potassium 5.5 mmol/L (3.5-5.1); Uric Acid 4.7 mg/dL (2.6-6.0)
[2020-02-23] MEDS: CALCITROL 0.25 MCG CAP PO SCH (09:32)
[2020-02-23] MEDS: VITAMIN D 5,000 UNIT CAP PO SCH (09:33)
[2020-02-23] MEDS: MORPHINE 4 MG/ML SYR IV PRN ×3 (09:42→20:22)
[2020-02-23] MEDS: ONDANSETRON 4 MG/2 ML VIAL IV PRN ×2 (11:12→20:22)
[2020-02-23] MEDS: HYDRALAZINE HCL 25 MG TABLET PO SCH ×2 (13:03→20:21)
[2020-02-23] MEDS: NIFEDIPINE XL 90 MG TABLET PO SCH (13:03)
[2020-02-23] MEDS: PROMETHAZINE INJ 25 MG/ML AMP IV PRN (15:42)
[2020-02-23] MEDS: FAMOTIDINE 20 MG/2 ML VIAL IV SCH (16:22)
--- NOTE | 2020-02-23 16:30 | PN ---
Date of Progress Note: 02/23/2020 Subjective: The patient was seen this morning for followup headache and was uncomfortable. Fentanyl IV was given prior to my arrival, which did not help her headache at all. Antihypertensive medications were ordered, but the patient did not get it as she was going for dialysis. The patient did get the morphine per order and that did provide her some relief with her headache. Yesterday, I did talk to Dr. Alcala who evaluated her from Neurology for her headache problem and his impression was that we are dealing with cluster headache. He had ordered oxygen therapy, which she did use it for 10-15 minutes and after irritation in the nose, she stopped using it. I did ask the nurse to try again today if she still has headache and use humidified oxygen to see if that helps reducing nasal irritation or not. Physical Examination: HEENT: Unremarkable except both eyes have opaque cornea, which is a chronic finding for her. Lungs: Clear to auscultation. Heart: Sounds normal. Abdomen: Soft. Bowel sounds normal. No guarding, rigidity, tenderness, distention. EXTREMITIES: No leg edema. Laboratory Data: CSF bacterial antigen negative and the CSF fluid exam was unremarkable. No evidence of any meningitis. Impression: 1. Cluster headache. 2. Uncontrolled hypertension. 3. End-stage renal disease, on hemodialysis. 4. Nausea and vomiting. Plan: We will continue antihypertensive medication per order. Continue to follow with Dr. Alcala. 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 The patient's blood pressure this morning was 200/100 or so. The patient does require IV pain medications and so far she had not responded to fentanyl doses and morphine was started and has required 4 mg Morphine IV x 2 doses today so far for headache and will continue to give it on as needed basis and she did show improvement with morphine, so we will continue that right now presently. She is also having intractable nausea and vomiting and has not responded to IV Zofran and I have ordered IV Promethazine for this. Patient is appropriate for inpatient in view of today's complex problems and treatment. VINCENT/MODL Voice ID: [id number] Report ID: [id number] JERRY
--- NOTE | 2020-02-23 21:53 | P.PN ---
Date of Service: 02/23/20 Vital Signs Temp Pulse Resp BP Pulse Ox 97.9 F 89 19 186/100 H 96 02/23/20 20:00 02/23/20 20:21 02/23/20 20:22 02/23/20 20:21 02/23/20 20:22 Medications Acetaminophen (Acetaminophen 500 Mg Tab) 650 mg PO Q6H PRN PRN Reason: TEMP > 100' F Stop: 03/23/20 13:34 Calcitriol (Calcitrol 0.25 Mcg Cap) 0.5 mcg PO DAILY [facility] Stop: 03/24/20 09:01 Last Admin: 02/23/20 09:32 Dose: 0.5 mcg Documented by: Carvedilol (Carvedilol 3.125 Mg Tab) 12.5 mg PO BID 6AM 6PM [facility] Stop: 03/25/20 06:01 Cholecalciferol (Vitamin D 5,000 Unit Cap) 5,000 unit PO DAILY [facility] Stop: 03/24/20 09:01 Last Admin: 02/23/20 09:33 Dose: 5,000 unit Documented by: Docusate Sodium (Docusate Na 100 Mg Cap) 100 mg PO BID [facility] Stop: 03/23/20 21:01 Last Admin: 02/23/20 20:22 Dose: 100 mg Documented by: Famotidine (Famotidine 20 Mg/2 Ml Vial) 20 mg IV DAILY [facility]; Protocol Stop: 03/24/20 16:01 Last Admin: 02/23/20 16:22 Dose: 20 mg Documented by: Heparin Sodium (Porcine) (Heparin 1,000 Unit/Ml Vial) 6,000 unit IV EVERY HD PRN PRN Reason: AFTER EACH Stop: 03/23/20 20:42 Last Admin: 02/23/20 13:58 Dose: 6,000 unit Documented by: Hydralazine HCl (Hydralazine Hcl 25 Mg Tablet) 25 mg PO BID [facility] Stop: 03/23/20 21:01 Last Admin: 02/23/20 20:21 Dose: 25 mg Documented by: Albumin Human (Albumin 25%) 50 mls @ 100 mls/hr IV EVERY HD [facility] Stop: 03/23/20 21:01 Mannitol (Mannitol 25% 12.5 Gm/50 Ml Vial) 12.5 gm IV EVERY HD PRN PRN Reason: Titrate to SBP (MUST DEFINE) Stop: 03/23/20 20:42 Morphine Sulfate (Morphine 4 Mg/Ml Syr) 4 mg IV Q4H PRN PRN Reason: Pain scale 5-7 (Moderate) Stop: 03/24/20 09:23 Last Admin: 02/23/20 20:22 Dose: 4 mg Documented by: Nifedipine (Nifedipine Xl 90 Mg Tablet) 90 mg PO DAILY [facility] Stop: 03/24/20 09:01 Last Admin: 02/23/20 13:03 Dose: 90 mg Documented by: Ondansetron HCl (Ondansetron 4 Mg/2 Ml Vial) 4 mg IV Q6H PRN PRN Reason: NAUSEA / VOMITING Stop: 03/23/20 13:34 Last Admin: 02/23/20 20:22 Dose: 4 mg Documented by: Promethazine HCl (Promethazine Inj 25 Mg/Ml Amp) 12.5 mg IV Q4H PRN PRN Reason: NAUSEA / VOMITING Stop: 03/24/20 15:33 Last Admin: 02/23/20 15:42 Dose: 12.5 mg Documented by: Sevelamer Carbonate (Sevelamer Carbonate 800 Mg Tablet) 800 mg PO TIDWM [facility] Stop: 03/24/20 08:01 Last Admin: 02/23/20 16:23 Dose: 800 mg Documented by: Sodium Chloride (Flush Normal Saline 10 Ml) 10 ml IV BID [facility] Stop: 03/23/20 21:01 Last Admin: 02/23/20 20:22 Dose: 10 ml Documented by: Verapamil HCl (Verapamil Hcl 80 Mg Tablet) 40 mg PO BID [facility] Stop: 03/23/20 21:01 Last Admin: 02/23/20 20:21 Dose: 40 mg Documented by: Vitamin B Complex/Vit C/Folic Acid (Multivitamins,Therapeut 1 Tab) 1 tab PO DAILY [facility] Stop: 03/24/20 09:01 Last Admin: 02/23/20 09:00 Dose: Not Given Documented by: Lab Results (last 24 hrs) 02/23/20 08:37: Sodium 136, Potassium 5.5 H, Chloride 101, Carbon Dioxide 26, BUN 76 H D, Creatinine 12.40 H* D, Estimated GFR 4 L, Glucose 114 H, Uric Acid 4.7, Calcium 8.5, Phosphorus 7.4 H, C-Reactive Protein 3.49 H 02/23/20 08:37: WBC 7.2 D, RBC 3.53 L, Hgb 10.9 L, Hct 32.7 L, MCV 92.7, MCH 30.8, MCHC 33.2, RDW 15.1, Plt Count 162, MPV 9.2, Neutrophils % 66.9, Lymphocytes % 20.6, Monocytes % 9.2, Eosinophils % 2.2, Basophils % 1.1, Absolute Neutrophils 4.8, Absolute Lymphocytes 1.5, Absolute Monocytes 0.7, Absolute Eosinophils 0.2, Absolute Basophils 0.1, ESR Westergren 44 H 02/22/20 22:20: SARS-CoV-2 RNA (RT-PCR) Negative 02/22/20 21:07: Procalcitonin 0.81 H Microbiology Results 02/22/20 10:40 Cerebral Spinal Fluid Gram Stain - Final 02/22/20 10:40 Cerebral Spinal Fluid CSF Bacterial Antigens (Tube 1) - Final 02/22/20 10:40 Cerebral Spinal Fluid Culture & Sensitivity - Preliminary No growth. Assessment/ Plan: Nephrology CPS stable without CP or SOB. No acute events overnight. Headache is a little better today. Dialysis catheter clip broke today at dialysis. Vitals, medications, blood work and imaging reviewed in the chart. General: Oriented x3, Cooperative, Moderate distress HEENT: Atraumatic Neck: Supple Respiratory: Clear to auscultation bilaterally Cardiovascular: No edema, Regular rate/rhythm Gastrointestinal: Soft and benign, Non-distended Musculoskeletal: No clubbing, No contractures Integumentary: No rashes, No cyanosis Neurological: Normal speech Laboratory Data (last 24 hrs) 02/22/20 08:45: PT 10.6, INR 0.90 02/22/20 08:45: WBC 8.9, Hgb 12.5, Hct 36.9, Plt Count 201 02/22/20 08:45: Sodium 135 L, Potassium 4.9, BUN 52 H, Creatinine 9.86 H*, Glucose 164 H, Magnesium 2.3, Total Bilirubin 0.4, AST 18, ALT 13, Alkaline Phosphatase 120 H Imagings Data: EXAM DESCRIPTION: CT - Head Brain Wo Cont - 02/22/2020 9:02 am CLINICAL HISTORY: Headache COMPARISON: 2017 TECHNIQUE: Computed axial tomography of the head was obtained. IV contrast was not requested. All CT scans are performed using dose optimization technique as appropriate and may include automated exposure control or mA/KV adjustment according to patient size. FINDINGS: An intracranial bleed is not seen . Deformed right globe Mild prominence of lateral ventricles is unchanged. No extra-axial fluid collection is noted. Mild low-density areas within periventricular, deep and subcortical white matter likely represent ischemic changes secondary to small vessel disease. Fluid within the sinuses/ mastoids is not seen. IMPRESSION: No acute intracranial abnormality is seen. If patient's symptoms persist MRI of the brain would be recommended. [facility] CLINICAL HISTORY: Cough COMPARISON: September 2021 FINDINGS: Small left and small to moderate right pleural effusions are present with bibasilar atelectasis. Heart is mildly enlarged. A central venous catheter has its tip in the superior cava Conclusions/Impression: A/ ESRD on HD Hyperkalemia HTN with CKD/ CHF Diastolic CHF, chronic DM II with CKD Anemia in CKD CARMELITA/ Secondary HyperPTH P/ Continue current POC and Medications. Acute HD as ordered. Seen and examined on HD today. Increase Coreg. Consult surgery to evaluate the broken dialysis catheter. No NSAIDs. AM labs. Daily weight.
[2020-02-24] MEDS: MORPHINE 4 MG/ML SYR IV PRN ×3 (01:04→13:13)
[2020-02-24] MEDS: PROMETHAZINE INJ 25 MG/ML AMP IV PRN ×2 (01:05→09:39)
[2020-02-24] MEDS: carvediloL 12.5 MG TAB PO SCH ×2 (06:45→18:20)
[2020-02-24] MEDS: ONDANSETRON 4 MG/2 ML VIAL IV PRN ×2 (06:46→13:13)
[2020-02-24] MEDS: SEVELAMER CARBONATE 800 MG TABLET PO SCH ×3 (08:00→17:00)
[2020-02-24] MEDS: MULTIVITAMINS,THERAPEUT 1 TAB PO SCH (09:00)
[2020-02-24] MEDS: DOCUSATE NA 100 MG CAP PO SCH ×3 (09:00→21:39)
[2020-02-24] MEDS: NIFEDIPINE XL 90 MG TABLET PO SCH (09:00)
[2020-02-24] MEDS: VITAMIN D 5,000 UNIT CAP PO SCH (09:00)
[2020-02-24] MEDS: TOPIRAMATE 25 MG TAB PO SCH ×2 (09:47→21:40)
[2020-02-24] MEDS: FAMOTIDINE 20 MG/2 ML VIAL IV SCH (09:47)
[2020-02-24] MEDS: VERAPAMIL HCL 80 MG TABLET PO SCH ×2 (09:48→21:40)
[2020-02-24] MEDS: CALCITROL 0.25 MCG CAP PO SCH (09:55)
[2020-02-24] MEDS: HYDRALAZINE HCL 25 MG TABLET PO SCH ×2 (09:56→21:40)
--- NOTE | 2020-02-24 20:53 | P.PN ---
Date of Service: 02/24/20 Vital Signs Temp Pulse Resp BP Pulse Ox 97.4 F 86 17 188/91 H 94 02/24/20 20:00 02/24/20 20:00 02/24/20 20:00 02/24/20 20:00 02/24/20 20:00 Medications Acetaminophen (Acetaminophen 500 Mg Tab) 650 mg PO Q6H PRN PRN Reason: TEMP > 100' F Stop: 03/23/20 13:34 Calcitriol (Calcitrol 0.25 Mcg Cap) 0.5 mcg PO DAILY [facility] Stop: 03/24/20 09:01 Last Admin: 02/24/20 09:55 Dose: 0.5 mcg Documented by: Carvedilol (Carvedilol 12.5 Mg Tab) 25 mg PO BID 6AM 6PM [facility] Stop: 03/26/20 06:01 Cholecalciferol (Vitamin D 5,000 Unit Cap) 5,000 unit PO DAILY [facility] Stop: 03/24/20 09:01 Last Admin: 02/24/20 09:00 Dose: Not Given Documented by: Docusate Sodium (Docusate Na 100 Mg Cap) 100 mg PO BID [facility] Stop: 03/23/20 21:01 Last Admin: 02/24/20 09:00 Dose: Not Given Documented by: Famotidine (Famotidine 20 Mg/2 Ml Vial) 20 mg IV DAILY [facility]; Protocol Stop: 03/24/20 16:01 Last Admin: 02/24/20 09:47 Dose: 20 mg Documented by: Heparin Sodium (Porcine) (Heparin 1,000 Unit/Ml Vial) 6,000 unit IV EVERY HD PRN PRN Reason: AFTER EACH Stop: 03/23/20 20:42 Last Admin: 02/23/20 13:58 Dose: 6,000 unit Documented by: Hydralazine HCl (Hydralazine Hcl 25 Mg Tablet) 50 mg PO BID [facility] Stop: 03/25/20 21:01 Albumin Human (Albumin 25%) 50 mls @ 100 mls/hr IV EVERY HD [facility] Stop: 03/23/20 21:01 Mannitol (Mannitol 25% 12.5 Gm/50 Ml Vial) 12.5 gm IV EVERY HD PRN PRN Reason: Titrate to SBP (MUST DEFINE) Stop: 03/23/20 20:42 Morphine Sulfate (Morphine 4 Mg/Ml Syr) 4 mg IV Q4H PRN PRN Reason: Pain scale 5-7 (Moderate) Stop: 03/24/20 09:23 Last Admin: 02/24/20 13:13 Dose: 4 mg Documented by: Nifedipine (Nifedipine Xl 90 Mg Tablet) 90 mg PO BID [facility] Stop: 03/25/20 21:01 Ondansetron HCl (Ondansetron 4 Mg/2 Ml Vial) 4 mg IV Q6H PRN PRN Reason: NAUSEA / VOMITING Stop: 03/23/20 13:34 Last Admin: 02/24/20 13:13 Dose: 4 mg Documented by: Promethazine HCl (Promethazine Inj 25 Mg/Ml Amp) 12.5 mg IV Q4H PRN PRN Reason: NAUSEA / VOMITING Stop: 03/24/20 15:33 Last Admin: 02/24/20 09:39 Dose: 12.5 mg Documented by: Sevelamer Carbonate (Sevelamer Carbonate 800 Mg Tablet) 800 mg PO TIDWM [facility] Stop: 03/24/20 08:01 Last Admin: 02/24/20 17:00 Dose: Not Given Documented by: Sodium Chloride (Flush Normal Saline 10 Ml) 10 ml IV BID [facility] Stop: 03/23/20 21:01 Last Admin: 02/24/20 09:56 Dose: 10 ml Documented by: Topiramate (Topiramate 25 Mg Tab) 25 mg PO BID [facility] Stop: 03/25/20 09:01 Last Admin: 02/24/20 09:47 Dose: 25 mg Documented by: Verapamil HCl (Verapamil Hcl 80 Mg Tablet) 40 mg PO BID [facility] Stop: 03/23/20 21:01 Last Admin: 02/24/20 09:48 Dose: 40 mg Documented by: Vitamin B Complex/Vit C/Folic Acid (Multivitamins,Therapeut 1 Tab) 1 tab PO DAILY [facility] Stop: 03/24/20 09:01 Last Admin: 02/24/20 09:00 Dose: 1 tab Documented by: Microbiology Results 02/22/20 10:40 Cerebral Spinal Fluid Gram Stain - Final 02/22/20 10:40 Cerebral Spinal Fluid CSF Bacterial Antigens (Tube 1) - Final 02/22/20 10:40 Cerebral Spinal Fluid Culture & Sensitivity - Preliminary No growth. Assessment/ Plan: Nephrology CPS stable without CP or SOB. No acute events overnight. Headache waxing and waning. Vitals, medications, blood work and imaging reviewed in the chart. General: Oriented x3, Cooperative, Moderate distress HEENT: Atraumatic Neck: Supple Respiratory: Clear to auscultation bilaterally Cardiovascular: No edema, Regular rate/rhythm Gastrointestinal: Soft and benign, Non-distended Musculoskeletal: No clubbing, No contractures Integumentary: No rashes, No cyanosis Neurological: Normal speech Laboratory Data (last 24 hrs) 02/22/20 08:45: PT 10.6, INR 0.90 02/22/20 08:45: WBC 8.9, Hgb 12.5, Hct 36.9, Plt Count 201 02/22/20 08:45: Sodium 135 L, Potassium 4.9, BUN 52 H, Creatinine 9.86 H*, Glucose 164 H, Magnesium 2.3, Total Bilirubin 0.4, AST 18, ALT 13, Alkaline Phosphatase 120 H Imagings Data: EXAM DESCRIPTION: CT - Head Brain Wo Cont - 02/22/2020 9:02 am CLINICAL HISTORY: Headache COMPARISON: 2016 TECHNIQUE: Computed axial tomography of the head was obtained. IV contrast was not requested. All CT scans are performed using dose optimization technique as appropriate and may include automated exposure control or mA/KV adjustment according to patient size. FINDINGS: An intracranial bleed is not seen . Deformed right globe Mild prominence of lateral ventricles is unchanged. No extra-axial fluid collection is noted. Mild low-density areas within periventricular, deep and subcortical white matter likely represent ischemic changes secondary to small vessel disease. Fluid within the sinuses/ mastoids is not seen. IMPRESSION: No acute intracranial abnormality is seen. If patient's symptoms persist MRI of the brain would be recommended. EXAM DESCRIPTION: RADChest Single View02/22/2020 8:59 am CLINICAL HISTORY: Cough COMPARISON: September 2021 FINDINGS: Small left and small to moderate right pleural effusions are present with bibasilar atelectasis. Heart is mildly enlarged. A central venous catheter has its tip in the superior cava Conclusions/Impression: A/ ESRD on HD Hyperkalemia HTN with CKD/ CHF Diastolic CHF, chronic DM II with CKD Anemia in CKD CARMELITA/ Secondary HyperPTH P/ Continue current POC and Medications. Next HD Monday. Increase Coreg and Nifedipine. Surgery to evaluate the broken dialysis catheter. No NSAIDs. AM labs. Daily weight.
[2020-02-24] MEDS ORDERED: NIFEDIPINE XL 90 MG TABLET PO SCH (21:00)
[2020-02-25] MEDS: MORPHINE 4 MG/ML SYR IV PRN ×2 (01:51→18:05)
[2020-02-25] MEDS: ONDANSETRON 4 MG/2 ML VIAL IV PRN ×2 (01:51→08:27)
[2020-02-25] MEDS: carvediloL 12.5 MG TAB PO SCH ×2 (04:30→18:00)
[2020-02-25] MEDS: cloNIDine HCL 0.1 MG TAB PO PRN (06:00)
--- NOTE | 2020-02-25 06:43 | PN ---
Date of Progress Note: 02/24/2020 Subjective: Patient was seen this morning for followup. No new complaints or problems reported by h er. Her headache is better. No more vomiting. No abdominal pain. Vital signs reviewed. She did n ot eat anything all day yesterday. She was encouraged to eat today. She had her dialysis yesterday. Objective: HEENT: Unremarkable except opaque cornea in both eyes unchanged. Heart: Sounds normal. Lungs: Clear to auscultation. Abdomen: Soft. Bowel sounds normal. No guarding, rigidity, tenderness, or distention. Extremities: No leg edema. Impression: 1.Intractable headache, improved. 2.Hypertension, uncontrolled. 3.End-stage renal disease, on hemodialysis. 4.Nausea with vomiting, improved. Plan: We will go ahead and continue current medications. Antihypertensive medications will be lg nued. I have advised her to try to eat her meals today and we will monitor her vital signs. If nece ssary, make adjustment on antihypertensive medications. Continue to follow with cut off operator scorer. VINCENT/MODL Voice ID: [id number] Report ID: [id number]
[2020-02-25] MEDS: DOCUSATE NA 100 MG CAP PO SCH ×2 (08:16→21:00)
[2020-02-25] MEDS: VITAMIN D 5,000 UNIT CAP PO SCH (08:17)
[2020-02-25] MEDS: VERAPAMIL HCL 80 MG TABLET PO SCH ×2 (08:17→21:21)
[2020-02-25] MEDS: TOPIRAMATE 25 MG TAB PO SCH ×2 (08:17→21:22)
[2020-02-25] MEDS: HYDRALAZINE HCL 25 MG TABLET PO SCH ×3 (08:17→21:22)
[2020-02-25] MEDS: SEVELAMER CARBONATE 800 MG TABLET PO SCH ×3 (08:17→17:00)
[2020-02-25] MEDS: MULTIVITAMINS,THERAPEUT 1 TAB PO SCH (08:18)
[2020-02-25] MEDS: CALCITROL 0.25 MCG CAP PO SCH (08:18)
[2020-02-25] MEDS: FAMOTIDINE 20 MG/2 ML VIAL IV SCH (08:18)
[2020-02-25] MEDS: PROMETHAZINE INJ 25 MG/ML AMP IV PRN (14:56)
--- NOTE | 2020-02-25 19:52 | P.PN ---
Date of Service: 02/25/20 Vital Signs Temp Pulse Resp BP Pulse Ox 97.5 F 80 14 128/52 L 92 02/25/20 16:00 02/25/20 18:00 02/25/20 18:05 02/25/20 18:00 02/25/20 18:05 Medications Acetaminophen (Acetaminophen 500 Mg Tab) 650 mg PO Q6H PRN PRN Reason: TEMP > 100' F Stop: 03/23/20 13:34 Calcitriol (Calcitrol 0.25 Mcg Cap) 0.5 mcg PO DAILY [facility] Stop: 03/24/20 09:01 Last Admin: 02/25/20 08:18 Dose: 0.5 mcg Documented by: Carvedilol (Carvedilol 12.5 Mg Tab) 25 mg PO BID 6AM 6PM [facility] Stop: 03/26/20 06:01 Last Admin: 02/25/20 18:00 Dose: 25 mg Documented by: Cholecalciferol (Vitamin D 5,000 Unit Cap) 5,000 unit PO DAILY [facility] Stop: 03/24/20 09:01 Last Admin: 02/25/20 08:17 Dose: 5,000 unit Documented by: Clonidine HCl (Clonidine Hcl 0.1 Mg Tab) 0.1 mg PO Q6HR PRN PRN Reason: High BP Stop: 03/26/20 06:01 Last Admin: 02/25/20 06:00 Dose: 0.1 mg Documented by: Docusate Sodium (Docusate Na 100 Mg Cap) 100 mg PO BID [facility] Stop: 03/23/20 21:01 Last Admin: 02/25/20 08:16 Dose: Not Given Documented by: Famotidine (Famotidine 20 Mg/2 Ml Vial) 20 mg IV DAILY [facility]; Protocol Stop: 03/24/20 16:01 Last Admin: 02/25/20 08:18 Dose: 20 mg Documented by: Heparin Sodium (Porcine) (Heparin 1,000 Unit/Ml Vial) 6,000 unit IV EVERY HD PRN PRN Reason: AFTER EACH Stop: 03/23/20 20:42 Last Admin: 02/25/20 13:55 Dose: 6,000 unit Documented by: Hydralazine HCl (Hydralazine Hcl 25 Mg Tablet) 100 mg PO BID [facility] Stop: 03/26/20 09:01 Last Admin: 02/25/20 10:27 Dose: 50 mg Documented by: Albumin Human (Albumin 25%) 50 mls @ 100 mls/hr IV EVERY HD [facility] Stop: 03/23/20 21:01 Mannitol (Mannitol 25% 12.5 Gm/50 Ml Vial) 12.5 gm IV EVERY HD PRN PRN Reason: Titrate to SBP (MUST DEFINE) Stop: 03/23/20 20:42 Morphine Sulfate (Morphine 4 Mg/Ml Syr) 4 mg IV Q4H PRN PRN Reason: Pain scale 5-7 (Moderate) Stop: 03/24/20 09:23 Last Admin: 02/25/20 18:05 Dose: 4 mg Documented by: Ondansetron HCl (Ondansetron 4 Mg/2 Ml Vial) 4 mg IV Q6H PRN PRN Reason: NAUSEA / VOMITING Stop: 03/23/20 13:34 Last Admin: 02/25/20 08:27 Dose: 4 mg Documented by: Promethazine HCl (Promethazine Inj 25 Mg/Ml Amp) 12.5 mg IV Q4H PRN PRN Reason: NAUSEA / VOMITING Stop: 03/24/20 15:33 Last Admin: 02/25/20 14:56 Dose: 12.5 mg Documented by: Sevelamer Carbonate (Sevelamer Carbonate 800 Mg Tablet) 800 mg PO TIDWM [facility] Stop: 03/24/20 08:01 Last Admin: 02/25/20 17:00 Dose: Not Given Documented by: Sodium Chloride (Flush Normal Saline 10 Ml) 10 ml IV BID [facility] Stop: 03/23/20 21:01 Last Admin: 02/25/20 08:18 Dose: 10 ml Documented by: Topiramate (Topiramate 25 Mg Tab) 50 mg PO BID [facility] Stop: 03/26/20 21:01 Verapamil HCl (Verapamil Hcl 80 Mg Tablet) 80 mg PO BID [facility] Stop: 03/26/20 09:01 Last Admin: 02/25/20 08:17 Dose: 80 mg Documented by: Vitamin B Complex/Vit C/Folic Acid (Multivitamins,Therapeut 1 Tab) 1 tab PO DAILY [facility] Stop: 03/24/20 09:01 Last Admin: 02/25/20 08:18 Dose: 1 tab Documented by: Microbiology Results 02/22/20 10:40 Cerebral Spinal Fluid Gram Stain - Final 02/22/20 10:40 Cerebral Spinal Fluid CSF Bacterial Antigens (Tube 1) - Final 02/22/20 10:40 Cerebral Spinal Fluid Culture & Sensitivity - Preliminary No growth. Assessment/ Plan: Nephrology CPS stable without CP or SOB. No acute events overnight. Headache waxing and waning. Nurse reports uncontrolled BPs. Vitals, medications, blood work and imaging reviewed in the chart. General: Oriented x3, Cooperative, Moderate distress HEENT: Atraumatic Neck: Supple Respiratory: Clear to auscultation bilaterally Cardiovascular: No edema, Regular rate/rhythm Gastrointestinal: Soft and benign, Non-distended Musculoskeletal: No clubbing, No contractures Integumentary: No rashes, No cyanosis Neurological: Normal speech Laboratory Data (last 24 hrs) 02/22/20 08:45: PT 10.6, INR 0.90 02/22/20 08:45: WBC 8.9, Hgb 12.5, Hct 36.9, Plt Count 201 02/22/20 08:45: Sodium 135 L, Potassium 4.9, BUN 52 H, Creatinine 9.86 H*, Glucose 164 H, Magnesium 2.3, Total Bilirubin 0.4, AST 18, ALT 13, Alkaline Phosphatase 120 H Imagings Data: EXAM DESCRIPTION: CT - Head Brain Wo Cont - 02/22/2020 9:02 am CLINICAL HISTORY: Headache COMPARISON: 2016 TECHNIQUE: Computed axial tomography of the head was obtained. IV contrast was not requested. All CT scans are performed using dose optimization technique as appropriate and may include automated exposure control or mA/KV adjustment according to patient size. FINDINGS: An intracranial bleed is not seen . Deformed right globe Mild prominence of lateral ventricles is unchanged. No extra-axial fluid collection is noted. Mild low-density areas within periventricular, deep and subcortical white matter likely represent ischemic changes secondary to small vessel disease. Fluid within the sinuses/ mastoids is not seen. IMPRESSION: No acute intracranial abnormality is seen. If patient's symptoms persist MRI of the brain would be recommended. EXAM DESCRIPTION: RADChest Single View02/22/2020 8:59 am CLINICAL HISTORY: Cough COMPARISON: September 2021 FINDINGS: Small left and small to moderate right pleural effusions are present with bibasilar atelectasis. Heart is mildly enlarged. A central venous catheter has its tip in the superior cava Conclusions/Impression: A/ ESRD on HD Hyperkalemia HTN with CKD/ CHF Diastolic CHF, chronic DM II with CKD Anemia in CKD CARMELITA/ Secondary HyperPTH P/ Continue current POC and Medications. Next HD . Antihypertensives are being adjusted. No NSAIDs. AM labs. Daily weight.
[2020-02-25] MEDS: GABAPENTIN 100 MG CAP PO SCH (22:52)
[2020-02-26] MEDS: cloNIDine HCL 0.1 MG TAB PO PRN (01:02)
[2020-02-26] MEDS: ONDANSETRON 4 MG/2 ML VIAL IV PRN (01:23)
[2020-02-26] MEDS: carvediloL 12.5 MG TAB PO SCH (05:29)
[2020-02-26 06:12] LABS: Absolute Lymphocytes (CBC) 1.4 K/uL (0.7-4.9); Basophils % 0.8 % (0-1.3); Hematocrit 34.3 % (36.0-45.0); Lymphocytes % 18.8 % (15.3-44.8); MPV 9.8 fL (7.6-11.3); RBC Red Blood Cell Count 3.74 M/uL (3.86-4.86)
[2020-02-26 06:15] LABS: Potassium 5.3 mmol/L (3.5-5.1)
--- NOTE | 2020-02-26 06:56 | PN ---
Date of Progress Note: 02/25/2020 Subjective: Patient was seen this morning for followup. No new complaints or problems reported by nora reynolds. She was lying in bed, not in distress, sleeping, easily arousable. Vital Signs reviewed. B lood pressure continues to remain elevated and the patient was not happy about taking more blood pres sure medication and she says that at home for blood pressure only thing she took was nifedipine, but at the same time, she was not checking her blood pressure like the way it gets checked frequently her e at the hospital also. I had hard time convincing her that she needs to continue to take her medica tions the way it is prescribed because her blood pressure is still not well controlled. I did later on discussed with Dr. Nina as he had question about her nifedipine why it was discontinued and he was made aware that the patient was started on verapamil, which is another calcium channel naya, s o that is why nifedipine was discontinued. Also, requested Dr. Nina to see if he can communicate with the patient as well to denote the importance of taking blood pressure medication as prescribed b ecause of her blood pressure not well controlled. She continues to have nausea, vomiting, and all th roughout the day she really could not eat because of her ongoing nausea problem. She had a dialysis today and after dialysis, our plan was to discharge her to go home, but she continues to have her hea dache and nausea, so we will not be able to discharge her. Nurse was advised to call Dr. Alcala be cause of her persistent headache and nausea, vomiting, and he will do MRI tomorrow. Meanwhile, we wi ll continue current antihypertensive medications and continue nausea medications. Objective: HEENT: Unremarkable except opacity of bilateral cornea. Lungs: Clear to auscultation. Heart: Sounds normal. Abdomen: Soft. Bowel sounds normal. No guarding, rigidity, tenderness, or distention. Extremities: No leg edema. Impression: 1.Intractable headache. 2.Nausea with vomiting. 3.End-stage disease, on hemodialysis. 4.Hypertension, uncontrolled. Plan: We will go ahead and continue antihypertensive medications as prescribed. Continue to follow up with neurologist as well as die cleaner and the patient will have MRI tomorrow as outlined above. We will also continue IV Pepcid. VINCENT/MODL Voice ID: [id number] Report ID: [id number]
[2020-02-26] MEDS: DOCUSATE NA 100 MG CAP PO SCH ×2 (08:59→09:00)
[2020-02-26] MEDS: GABAPENTIN 100 MG CAP PO SCH (08:59)
[2020-02-26] MEDS: TOPIRAMATE 25 MG TAB PO SCH ×2 (08:59→09:00)
[2020-02-26] MEDS: HYDRALAZINE HCL 25 MG TABLET PO SCH (08:59)
[2020-02-26] MEDS: MULTIVITAMINS,THERAPEUT 1 TAB PO SCH (09:00)
[2020-02-26] MEDS: SEVELAMER CARBONATE 800 MG TABLET PO SCH ×2 (09:00→12:38)
[2020-02-26] MEDS: VITAMIN D 5,000 UNIT CAP PO SCH (09:00)
[2020-02-26] MEDS: CALCITROL 0.25 MCG CAP PO SCH (09:00)
[2020-02-26] MEDS: FAMOTIDINE 20 MG/2 ML VIAL IV SCH (09:01)
[2020-02-26] MEDS: VERAPAMIL HCL 80 MG TABLET PO SCH (09:06)
--- NOTE | 2020-02-26 09:17 | RAD REPORT ---
EXAM DESCRIPTION: MRI - Brain Wo Cont - 02/26/2020 8:29 am CLINICAL HISTORY: headache Headache, drowsiness COMPARISON: Head Brain Wo Cont dated 02/22/2020; Brain Wo Cont dated 11/21/2018; MRA Head Wo Cont liset ed 11/21/2018 TECHNIQUE: Multi-sequence, multiplanar MR imaging of the brain was performed without contrast. FINDINGS: No intracranial hemorrhage, hydrocephalus or extra-axial fluid collections.Mild periventri cular chronic microvascular ischemia. No edema or shift of midline structures. No findings to suspect brain mass. DWI is negative for acute CVA. Midline structures are normally formed. Mastoid air cells and paranasal sinuses are clear. Chronic collapse of the right globe is seen. There is evidence of increased signal within the left globe, new since prior MR imaging study. This can in dicate retinal detachment. IMPRESSION: No acute or aggressive intracranial abnormalities. Advise clinical correlation for possible left-sided retinal detachment.
[2020-02-26 12:34] VITALS: O2SAT 95
[2020-02-26 13:45] VITALS: BP 110/60; TEMP 97.6
--- NOTE | 2020-02-26 17:22 | P.PN ---
Date of Service: 02/26/20 Vital Signs Temp Pulse Resp BP Pulse Ox 97.6 F 75 18 110/60 97 02/26/20 12:00 02/26/20 12:00 02/26/20 12:00 02/26/20 12:00 02/26/20 12:00 Microbiology Results 02/22/20 10:40 Cerebral Spinal Fluid Gram Stain - Final 02/22/20 10:40 Cerebral Spinal Fluid CSF Bacterial Antigens (Tube 1) - Final 02/22/20 10:40 Cerebral Spinal Fluid Culture & Sensitivity - Final No growth. Assessment/ Plan: Nephrology CPS stable without CP or SOB. No acute events overnight. Headache waxing and waning. Vitals, medications, blood work and imaging reviewed in the chart. General: Oriented x3, Cooperative, Moderate distress HEENT: Atraumatic Neck: Supple Respiratory: Clear to auscultation bilaterally Cardiovascular: No edema, Regular rate/rhythm Gastrointestinal: Soft and benign, Non-distended Musculoskeletal: No clubbing, No contractures Integumentary: No rashes, No cyanosis Neurological: Normal speech Laboratory Data (last 24 hrs) 02/22/20 08:45: PT 10.6, INR 0.90 02/22/20 08:45: WBC 8.9, Hgb 12.5, Hct 36.9, Plt Count 201 02/22/20 08:45: Sodium 135 L, Potassium 4.9, BUN 52 H, Creatinine 9.86 H*, Glucose 164 H, Magnesium 2.3, Total Bilirubin 0.4, AST 18, ALT 13, Alkaline Phosphatase 120 H Imagings Data: EXAM DESCRIPTION: CT - Head Brain Wo Cont - 02/22/2020 9:02 am CLINICAL HISTORY: Headache COMPARISON: 2017 TECHNIQUE: Computed axial tomography of the head was obtained. IV contrast was not requested. All CT scans are performed using dose optimization technique as appropriate and may include automated exposure control or mA/KV adjustment according to patient size. FINDINGS: An intracranial bleed is not seen . Deformed right globe Mild prominence of lateral ventricles is unchanged. No extra-axial fluid collection is noted. Mild low-density areas within periventricular, deep and subcortical white matter likely represent ischemic changes secondary to small vessel disease. Fluid within the sinuses/ mastoids is not seen. IMPRESSION: No acute intracranial abnormality is seen. If patient's symptoms persist MRI of the brain would be recommended. EXAM DESCRIPTION: RADChest Single View02/22/2020 8:59 am CLINICAL HISTORY: Cough COMPARISON: September 2021 FINDINGS: Small left and small to moderate right pleural effusions are present with bibasilar atelectasis. Heart is mildly enlarged. A central venous catheter has its tip in the superior cava Conclusions/Impression: A/ ESRD on HD Hyperkalemia HTN with CKD/ CHF Diastolic CHF, chronic DM II with CKD Anemia in CKD CARMELITA/ Secondary HyperPTH P/ Continue current POC and Medications. Next HD . Continue current antihypertensive therapy. Seen and examined at MRI. Follow up results. No NSAIDs. AM labs. Daily weight.
--- NOTE | 2020-02-27 11:44 | DS ---
Date of Discharge: 02/26/2020 Disposition: Discharged to go home. Physical Examination: HEENT: Unremarkable except opacity of bilateral cornea, unchanged, which is a chronic finding. Lungs: Clear to auscultation. Heart: Sounds normal. Abdomen: Soft. Bowel sounds normal. No guarding, rigidity, tenderness, distention. Extremities: No leg edema. Laboratory Data: Upon admission, white count 8.9, hemoglobin 12.5, platelets 201, and today white count 7.3, hemoglobin 11.5, platelets 173. Chemistry today sodium 138, potassium 5.3, chloride 103 bicarb 22, BUN 44, creatinine 8.1, glucose 71. Discharge Medications And Instructions: 1. Continue all prior home medications except stop nifedipine. 2. Start new medication, which is carvedilol 25 mg 2 times a day, hydralazine 100 mg 2 times a day, topiramate 50 mg 2 times a day, and verapamil 80 mg 2 times a day. 3. Follow up with Dr. Alcala in 1 month. 4. Follow up at my office next week on Monday. Hospital Course: This is a 50-year-old female patient admitted to the hospital with intractable headache and intractable nausea, vomiting problem. Please see dictated H and P for more information. After the patient was evaluated, neurologist, Dr. Alcala was consulted who thought patient had cluster headache and he advised her to be treated with oxygen 10 liters per minute for about 10- 15 minutes. The patient did not tolerate the oxygen more than about 10 minutes or so and she was having burning sensation inside her nose with oxygen. Her headache problem continued with significant intensity to the point that initially she was given fentanyl IV, which did not help her headache and then she did require few doses of IV morphine to control her headache. Then, her nausea, vomiting continued to be a problem. She did not respond to IV Zofran and IV Phenergan was started, which actually helped controlling her vomiting but nausea problem continued. We did add IV Pepcid. The patient did not eat almost for 2-3 days because of her nausea, vomiting problem. Hemodialysis support was given to her per acid dumper. Her blood pressure was elevated and she was getting Verapamil 40 mg 2 times a day, subsequently dose was increased to 80 mg 2 times a day. Nifedipine was discontinued and hydralazine was added and during this hospital stay, her antihypertensive medication dose was adjusted until her blood pressure was normal. Her headache has been under good control now and her CAT scan of the head was negative and MRI of the brain was done today, which was negative also for any acute changes. Final Diagnoses: 1. Cluster headache. 2. Intractable nausea and vomiting. 3. Hypotension. 4. End-stage renal disease, on hemodialysis. 5. Anemia due to chronic kidney disease. 6. Hyperlipidemia. 7. Coronary artery disease. 8. Congestive heart failure, chronic, systolic. 9. Gastroparesis, secondary to diabetes. 10. Diabetic neuropathy. 11. Legally blind. VINCENT/MODL Voice ID: [id number] Report ID: [id number] JERRY
== END 2020-02-26 14:53 | disposition home or self-care (01) | DRG 102 ==
LOC: ER 08:16 → ERHOLD 10:11 → INTOOBSV 10:11 → 4TH 11:23 → OBSVTOIN 02-23 15:33
PROVIDERS: ADMIT Internal Medicine; ATTEND Internal Medicine
PROC: 009U3ZX Drainage of Spinal Canal, Percutaneous Approach, Diagnostic (ICD-10-PCS; principal; 2020-02-23)
PROC: 5A1D70Z Performance of Urinary Filtration, Intermittent, Less than 6 Hours Per Day (ICD-10-PCS; 2020-02-23)
DX: G44.009 Cluster headache syndrome, unspecified, not intractable (principal); N18.6 End stage renal disease; I13.2 Hypertensive heart and chronic kidney disease with heart failure and with stage 5 chronic kidney disease, or end stage renal disease; I50.22 Chronic systolic (congestive) heart failure; N25.81 Secondary hyperparathyroidism of renal origin; E11.22 Type 2 diabetes mellitus with diabetic chronic kidney disease; E11.40 Type 2 diabetes mellitus with diabetic neuropathy, unspecified; E11.43 Type 2 diabetes mellitus with diabetic autonomic (poly)neuropathy; K31.84 Gastroparesis; D63.1 Anemia in chronic kidney disease; N25.0 Renal osteodystrophy; E87.5 Hyperkalemia; H54.8 Legal blindness, as defined in USA; I25.10 Atherosclerotic heart disease of native coronary artery without angina pectoris; I95.9 Hypotension, unspecified; E78.2 Mixed hyperlipidemia; Z99.2 Dependence on renal dialysis; Z88.5 Allergy status to narcotic agent; Z79.82 Long term (current) use of aspirin; Z95.5 Presence of coronary angioplasty implant and graft; Z79.899 Other long term (current) drug therapy; Z79.52 Long term (current) use of systemic steroids; Z20.828 Contact with and (suspected) exposure to other viral communicable diseases
CPT/HCPCS: 36415; 62270; 70450; 70551; 71045; 80048; 80076; 82945; 82947; 83735; 83880; 84100; 84145; 84157; 84484; 84550; 85025; 85610; 85652; 86140; 86403; 87070; 89050; 90935; 93005; 96365; 96375; 99285; J0360; J1644; J2405; J2550; J3010; U0003

== ENCOUNTER 2020-03-03 10:46 | Inpatient (IN) | payer OTHER ==
[2020-03-03] MEDS ORDERED: FAMOTIDINE 20 MG/2 ML VIAL IV ONE (12:37)
[2020-03-03] MEDS ORDERED: PROMETHAZINE INJ 25 MG/ML AMP ONE ×2 (12:37→16:56)
[2020-03-03] MEDS ORDERED: NA CHLORIDE 0.9% 250 ML ONE (12:39)
--- NOTE | 2020-03-03 12:56 | RAD REPORT ---
EXAM DESCRIPTION: CT - Head Brain Wo Cont - 03/03/2020 12:46 pm CLINICAL HISTORY: HEADACHE COMPARISON: Head Brain Wo Cont dated 02/22/2020; HEAD BRAIN W O CONTRAST dated 07/10/2014; HEAD BRAIN W O CONTRAST dated 04/19/2013; Brain Wo Cont dated 02/26/2020; Head Brain Wo Cont dated 02/22/2017; He ad Brain Wo Cont dated 11/21/2018 TECHNIQUE: Axial 5 mm thick images of the head were obtained without IV contrast. All CT scans are performed using dose optimization technique as appropriate and may include automated exposure control or mA/KV adjustment according to patient size. FINDINGS: No intracranial hemorrhage is present. No cortical edema or sulcal effacement. No mass eff ect or midline shift. No acute infarction changes seen. No abnormal extra-axial fluid collections. Pa toribiont does have evidence for volume loss greater than typically seen for age. Lateral and third ventr icles are enlarged for the amount of volume loss. Review of imaging back to 2013 shows the lateral an d third ventricles to have increased in size between 2013 and 2017. No further progression of the anne marie tricular enlargement identifiable. . The recent MRI showed mild T2/IR signal abnormalities along the subependymal white matter at each lateral ventricle. No obstructing mass present. Mastoid air cells and visualized portions of the paranasal sinuses are clear. No acute bony findings. IMPRESSION: No hemorrhage, mass or acute intracranial finding identifiable. Patient has minimal volume loss changes evident. Ventricles are enlarged compared to the volume loss but have remained stable since 2017.
[2020-03-03 13:36] LABS: Absolute Lymphocytes (CBC) 0.7 K/uL (0.7-4.9); Basophils % 0.3 % (0-1.3); Hematocrit 37.2 % (36.0-45.0); MPV 9.5 fL (7.6-11.3); RBC Red Blood Cell Count 4.03 M/uL (3.86-4.86)
[2020-03-03 14:27] LABS: ALT/SGPT 19 U/L (12-78); AST/SGOT 24 U/L (15-37); Albumin 3.4 g/dL (3.4-5.0); Alkaline Phosphatase 106 U/L (45-117); BUN Blood Urea Nitrogen 117 mg/dL (7-18); Bicarbonate 18 mmol/L (21-32); Bilirubin Direct < 0.1 mg/dL (0-0.2); Bilirubin Total 0.4 mg/dL (0.2-1.0); Glucose Level 147 mg/dL (74-106); Lipase 493 U/L (73-393); Protein, Total 10.2 g/dL (6.4-8.2); Sodium Level 136 mmol/L (136-145)
[2020-03-03 14:32] LABS: Potassium 6.2 mmol/L (3.5-5.1)
[2020-03-03] MEDS ORDERED: HYDRALAZINE HCL 20 MG/ML VIAL ONE (14:52)
[2020-03-03] MEDS ORDERED: D50W 25 GM/50 ML SYRINGE IV PRN (15:00)
[2020-03-03] MEDS ORDERED: GLUCAGON 1 MG/VIAL IM PRN (15:00)
[2020-03-03] MEDS ORDERED: D5 0.45 NS 1,000 ML IV ONE (15:13)
[2020-03-03 15:18] LABS: Arterial Blood Carboxyhemoglob 0.9 % (0-1.5); Blood Gas Oxyhemoglobin 94.4 % (94-97); Blood O2 Saturation 96.3 % (92-98.5)
[2020-03-03] MEDS ORDERED: INSULIN -REGULAR HUMAN 100 UNIT in NA CHLORIDE 0.9% 100 ML IV SCH (16:00)
[2020-03-03] MEDS ORDERED: SOD POLYSTYREN SUL 15 GM/60 ML UCUP ONE (16:30)
[2020-03-03] MEDS ORDERED: INSULIN -REGULAR HUMAN 50 UNIT/0.5 ML ML ONE (16:30)
[2020-03-03] MEDS ORDERED: D50W 50 ML IV ONE (16:30)
--- NOTE | 2020-03-03 18:29 | ER ---
Nurse's Notes [facility] Name: Yamile Brooke Age: 50 yrs Sex: Female : 1970 Arrival Date: 03/03/2020 Time: 10:49 Bed 16 Private MD: Diagnosis: Nausea and vomiting;End stage renal disease;Hyperkalemia Presentation: 03/03 11:08 Chief complaint: Patient states: can't keep nothing down and BP was high and my head iw hurts so bad, since the weekend, went to dialysis Monday and couldn't have ot bc she was vomiting, today she missed bc she was vomiting also. Coronavirus screen: vomiting. Client presents with at least one sign or symptom that may indicate coronavirus-19. Ebola Screen: Patient negative for fever greater than or equal to 101.5 degrees Fahrenheit, and additional compatible Ebola Virus Disease symptoms Patient denies exposure to infectious person. Patient denies travel to an Ebola-affected area in the 21 days before illness onset. No symptoms or risks identified at this time. Initial Sepsis Screen: Does the patient meet any 2 criteria? No. Patient's initial sepsis screen is negative. Does the patient have a suspected source of infection? No. Patient's initial sepsis screen is negative. Risk Assessment: Do you want to hurt yourself or someone else? Patient reports no desire to harm self or others. Onset of symptoms was February 29, 2020. 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 - Social history:: Smoking status: . Screenin:42 Abuse screen: Denies threats or abuse. Nutritional screening: No deficits noted. tw2 Tuberculosis screening: No symptoms or risk factors identified. Fall Risk None identified. Assessment: 12:02 General: Appears uncomfortable, slender, Behavior is calm, cooperative, appropriate for tw2 age. Pain: Complains of pain in headache. 12:10 General: Appears in no apparent distress. uncomfortable, slender, Behavior is calm, tw2 cooperative, appropriate for age. Neuro: Level of Consciousness is awake, alert, obeys commands, Oriented to person, place, time, situation. Neuro: Reports headache. Cardiovascular: Capillary refill < 3 seconds Patient's skin is warm and dry. Cardiovascular: Dialysis shunt: in the left arm, and right upper chest dialysis access port. Respiratory: Airway is patent Respiratory effort is even, unlabored, Respiratory pattern is regular, symmetrical. GI: Abdomen is flat, Reports nausea, vomiting. : No signs and/or symptoms were reported regarding the genitourinary system. EENT: No signs and/or symptoms were reported regarding the EENT system. Derm: No signs and/or symptoms reported regarding the dermatologic system. Skin is dry. Musculoskeletal: Range of motion: intact in all extremities. 12:55 Reassessment: lab at bedside for blood work at this time. tw2 13:25 Reassessment: Patient appears in no apparent distress at this time. Patient and/or tw2 family updated on plan of care and expected duration. Pain level reassessed. Patient is alert, oriented x 3, equal unlabored respirations, skin warm/dry/pink. Patient states feeling better. Patient states symptoms have improved. 14:22 Reassessment: Patient appears in no apparent distress at this time. Patient and/or tw2 family updated on plan of care and expected duration. Pain level reassessed. Patient is alert, oriented x 3, equal unlabored respirations, skin warm/dry/pink. 15:27 Reassessment: pt refusing Covid swab states "i had a bad experience and it cause a tw2 migraine and i just got tested last week, i dont know why i need an insulin drip, i dont want that either i havent ate and my sugar is ok", provider notified, provider at bedside at this time explaining poc and results at this time. 15:30 Reassessment: per provider JASMIN Azul HOLD all IV drips at this time until RT comes and tw2 completes ABG and he speaks with Dr. Schofield. 15:50 Reassessment: per provider CNataliia PA do NOT start the insulin drip or the d5 1/2 NS at tw2 this time, charge nurse notified. 15:51 Reassessment: Patient appears in no apparent distress at this time. Patient and/or tw2 family updated on plan of care and expected duration. Pain level reassessed. Patient is alert, oriented x 3, equal unlabored respirations, skin warm/dry/pink. 16:43 Reassessment: pt reports nausea at this time, provider notified, medicated as ordered. tw2 18:15 Reassessment: Patient appears in no apparent distress at this time. Patient and/or tw2 family updated on plan of care and expected duration. Pain level reassessed. Patient is alert, oriented x 3, equal unlabored respirations, skin warm/dry/pink. Patient states feeling better. 19:20 Reassessment: Patient and/or family updated on plan of care and expected duration. Pain ll2 level reassessed. Patient is alert, oriented x 3, equal unlabored respirations, skin warm/dry/pink. 21:00 Reassessment: Patient and/or family updated on plan of care and expected duration. Pain ll2 level reassessed. Patient is alert, oriented x 3, equal unlabored respirations, skin warm/dry/pink. 21:00 Reassessment: report given to MILA murillo. ll2 Vital Signs: 11:08 BP 164 / 102; Pulse 95; Resp 16; Temp 96.9; Pulse Ox 100% on R/A; Weight 68.04 kg; iw Height 5 ft. 8 in. (172.72 cm); Pain 7/10; 13:25 BP 172 / 114; Pulse 87; Resp 17; Pulse Ox 100% on R/A; tw2 14:22 BP 172 / 105; Pulse 82; Resp 16; Pulse Ox 100% on R/A; tw2 14:59 BP 161 / 100; Pulse 87; Resp 17; Pulse Ox 100% on R/A; tw2 15:51 BP 165 / 95; Pulse 85; Resp 17; Pulse Ox 99% on R/A; tw2 16:59 BP 166 / 92 RL; Pulse 86; Resp 17; Pulse Ox 99% on R/A; tw2 18:15 BP 147 / 96 RL; Pulse 79; Resp 17; Pulse Ox 98% on R/A; tw2 11:08 Body Mass Index 22.81 (68.04 kg, 172.72 cm) iw ED Course: 10:49 Patient arrived in ED. as 11:10 Triage completed. iw 12:02 Placed in gown. Bed in low position. Call light in reach. Adult w/ patient. Warm tw2 blanket given. 12:05 Cesar William PA is PHCP. cp 12:05 London Rodriguez MD is Attending Physician. cp 12:20 Ayaka Vizcaino, MILA is Primary Nurse. tw2 12:37 Inserted saline lock: 22 gauge in right antecubital area, using aseptic technique. tw2 ,using aseptic technique. with ANURADHA Mendiola Tech - no blood collected at this time, will notify lab once pt is back from CT. 12:45 CT Head Brain wo Cont In Process Unspecified. EDMS 15:10 Accessed peripheral vein via ultrasound, utilizing dynamic ultrasound technique using jd3 20G Nexia IV catheter ,sterile technique, per hospital protocol. Clean \\T\\ dry. Dressing intact. Good blood return. Flushes easily. placed to the right AC. 16:47 IV discontinued, intact, bleeding controlled, No redness/swelling at site. Pressure tw2 dressing applied, 20 to right medial ac discontinue once infiltration noted. 18:27 Vasile Schofield MD is Hospitalizing Provider. cp 19:00 Report given to MILA Teixeira. tw2 20:17 Primary Nurse role handed off by Ayaka Vizcaino RN ar5 20:31 Lluvia Fink RN is Primary Nurse. ll2 20:59 Arm band placed on right wrist. ll2 21:07 Report given to MILA murillo. ll2 21:08 No provider procedures requiring assistance completed. ll2 Administered Medications: 12:37 Drug: Phenergan 12.5 mg Route: IVP; Site: right antecubital; tw2 13:34 Follow up: Response: No adverse reaction; Nausea is decreased tw2 12:39 Drug: Pepcid 20 mg Route: IVP; Site: right antecubital; tw2 13:34 Follow up: Response: No adverse reaction tw2 13:25 Drug: NS 0.9% 250 ml Route: IV; Rate: 75 ml/hr; Site: right antecubital; tw2 17:07 Follow up: Response: No adverse reaction; IV Status: Order to discontinue infusion; IV tw2 Intake: 250ml 14:45 Drug: hydrALAZINE 5 mg Route: IV; Rate: calculated rate; Site: right antecubital; tw2 14:46 Follow up: Response: No adverse reaction; IV Status: Completed infusion; IV Intake: tw2 0.25ml 14:56 CANCELLED (Physician Discretion): D5-1/2 NS 1000 ml IV at 120 ml/hr once; 1000 mL sv bolus; followed by 125 mL/hr continuous 15:53 Not Given (Physician Discretion): Insulin Drip - (Insulin Regular Human 100 units, NS cp 0.9% 100 ml) IV at 3 units/hr continuous; Standard concentration 1unit/ml; Dose for DKA is 0.1 units/kg/hr 15:53 Not Given (Physician Discretion): D5-1/2 NS 1000 ml IV at 125 ml/hr continuous cp 16:20 Drug: Insulin Regular Human 5 units {Co-Signature: jd3 (Baljit Vasquez RN).} Route: tw2 IVP; Site: right antecubital; 16:55 Follow up: Response: No adverse reaction; Blood sugar is unchanged tw2 16:22 Drug: D50W 25 ml Route: IVP; Site: right antecubital; tw2 16:25 Follow up: Response: Other; Other - infiltration noted, warm compress applied, provider tw2 notified. 16:25 Drug: Kayexalate 45 grams Route: PO; tw2 17:07 Follow up: Response: No adverse reaction tw2 16:47 Drug: Phenergan 12.5 mg Route: IVP; Site: right antecubital; tw2 17:07 Follow up: Response: No adverse reaction; Nausea is decreased tw2 Point of Care Testing: Blood Glucose: 16:55 Blood Glucose: 123 mg/dL; tw2 16:55 per KJ,Tech tw2 Ranges: Intake: 14:46 IV: 0ml; Total: 0ml. tw2 17:07 IV: 250ml; Total: 250ml. tw2 Outcome: 18:28 Decision to Hospitalize by Provider. cp 21:07 Admitted to Med/surg accompanied by tech, via stretcher, Report called to shane murillo RN 21:08 Condition: stable ll2 21:08 Instructed on the need for admit. 21:08 Patient left the ED. ll2 Signatures: Dispatcher [employer] Mya Cervantes Irene, RN RN Cesar Huff PA PA cp Wise, Tara RN RN tw2 Baljit Vasquez RN RN jd3 Yana Hatfield ar5 Lluvia Fink RN RN ll2 Carole Proctor RN Baljit Vasquez RN jd3 Corrections: (The following items were deleted from the chart) 15:52 15:50 Reassessment: per provider do NOT start the insulin drip or the d5 1/2 NS at this tw2 time, charge nurse notified. tw2 16:24 16:12 Insulin Regular Human 5 units IVP in right antecubital tw2 tw2 17:00 12:02 General: Appears uncomfortable, obese, Behavior is calm, cooperative, appropriate tw2 for age, tw2 18:47 16:59 BP 166 / 92; Pulse 86bpm; Resp 17bpm; Pulse Ox 99% RA; tw2 tw2 18:47 18:15 BP 147 / 96; Pulse 79bpm; Resp 17bpm; Pulse Ox 98% RA; tw2 tw2
--- NOTE | 2020-03-03 18:29 | EDPHYS ---
Physician Documentation [facility] Name: Yamile Brooke Age: 50 yrs Sex: Female : 1970 Arrival Date: 03/03/2020 Time: 10:49 Bed 16 Private MD: ED Physician London Rodriguez HPI: 03/03 12:25 This 50 yrs old Black Female presents to ER via Wheelchair with complaints of cp Nausea/Vomiting - missed dialysis 2x. 12:25 The patient presents to the emergency department with nausea, with "dry heaves", cp vomiting, that is intermittent. Onset: The symptoms/episode began/occurred 3 day(s) ago. Possible causes: unknown. Associated signs and symptoms: Pertinent positives: anorexia, headache, Pertinent negatives: abdominal pain, fever, chest pain. 12:25 Severity of symptoms: in the emergency department the symptoms are unchanged despite cp home interventions. 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 - Social history:: Smoking status: . ROS: 12:30 Constitutional: Positive for poor PO intake, Negative for body aches, chills, fever. cp 12:30 Eyes: Negative for injury, pain, redness, and discharge. cp 12:30 ENT: Negative for ear pain, sore throat, difficulty swallowing, difficulty handling secretions. 12:30 Cardiovascular: Negative for chest pain, palpitations. 12:30 Respiratory: Negative for cough, shortness of breath, wheezing. 12:30 Abdomen/GI: Positive for nausea and vomiting, anorexia, Negative for abdominal pain, hematemesis, black/tarry stool, rectal bleeding. 12:30 Back: Negative for pain at rest, pain with movement. Exam: 12:35 Constitutional: The patient appears in no acute distress, alert, awake, cp non-diaphoretic, non-toxic, well developed, well nourished, uncomfortable. 12:35 Head/Face: Normocephalic, atraumatic. cp 12:35 Eyes: Periorbital structures: appear normal, Conjunctiva: normal, no exudate, no injection, Lids and lashes: appear normal, bilaterally. 12:35 ENT: External ear(s): are unremarkable, Nose: is normal, Mouth: Lips: dry, Oral mucosa: moist, Posterior pharynx: Airway: no evidence of obstruction, patent. 12:35 Neck: ROM/movement: is normal, is supple, without pain, no range of motions limitations. 12:35 Chest/axilla: Inspection: normal, Palpation: is normal, no crepitus, no tenderness. 12:35 Cardiovascular: Rate: normal, Rhythm: regular. 12:35 Respiratory: the patient does not display signs of respiratory distress, Respirations: normal, no use of accessory muscles, no retractions, labored breathing, is not present, Breath sounds: decreased breath sounds, are not appreciated. 12:35 Abdomen/GI: Inspection: abdomen appears normal, Bowel sounds: active, all quadrants, Palpation: abdomen is soft and non-tender, in all quadrants, rebound tenderness, is not appreciated, voluntary guarding, is not appreciated, involuntary guarding, is not appreciated. 12:35 Back: pain, is absent, ROM is normal. 12:35 Skin: no rash present. 12:35 Neuro: Orientation: to person, place \\T\\ time. Mentation: is normal, Motor: moves all fours, strength is normal. 15:38 ECG was reviewed by the Attending Physician. cp Vital Signs: 11:08 BP 164 / 102; Pulse 95; Resp 16; Temp 96.9; Pulse Ox 100% on R/A; Weight 68.04 kg; iw Height 5 ft. 8 in. (172.72 cm); Pain 7/10; 13:25 BP 172 / 114; Pulse 87; Resp 17; Pulse Ox 100% on R/A; tw2 14:22 BP 172 / 105; Pulse 82; Resp 16; Pulse Ox 100% on R/A; tw2 14:59 BP 161 / 100; Pulse 87; Resp 17; Pulse Ox 100% on R/A; tw2 15:51 BP 165 / 95; Pulse 85; Resp 17; Pulse Ox 99% on R/A; tw2 16:59 BP 166 / 92 RL; Pulse 86; Resp 17; Pulse Ox 99% on R/A; tw2 18:15 BP 147 / 96 RL; Pulse 79; Resp 17; Pulse Ox 98% on R/A; tw2 11:08 Body Mass Index 22.81 (68.04 kg, 172.72 cm) iw MDM: 12:15 Patient medically screened. 15:00 Physician consultation: Vasile Schofield MD was called at 15:01, was contacted at 15:01, will call back to discuss patient. 15:00 Data reviewed: vital signs, nurses notes, lab test result(s), I have discussed the patient's presentation/case with the attending Emergency Department Physician; and as a result, I will admit patient. 15:00 Counseling: I had a detailed discussion with the patient and/or guardian regarding: the historical points, exam findings, and any diagnostic results supporting the discharge/admit diagnosis, lab results, the need for further work-up and treatment in the hospital. 18:39 Physician consultation: Vasile Schofield MD was contacted at 18:40, and will see patient in ED, shortly. 18:40 Physician consultation: Kb Nina DO was called at 18:40, was contacted at 18:40, regarding consult, patient's condition. 03/03 12:19 Order name: Basic Metabolic Panel; Complete Time: 14:40 03/03 15:45 Interpretation: Normal except: K 6.2; CO2 18; GLUC 147; BUN 117; GFR 2. 03/03 12:19 Order name: CBC with Diff; Complete Time: 14:27 03/03 14:27 Interpretation: Normal except: PLT 232; RDW 15.6; AIDA% 81.1; LYM% 10.0. 03/03 12:19 Order name: Hepatic Function; Complete Time: 14:40 03/03 12:19 Order name: Lipase; Complete Time: 14:40 03/03 14:41 Interpretation: Abnormal: LIP 493. 03/03 14:50 Order name: ABG; Complete Time: 15:45 03/03 14:50 Order name: Ketone, Serum; Complete Time: 18:35 03/03 12:22 Order name: CT Head Brain wo Cont; Complete Time: 12:59 03/03 14:50 Order name: COVID-19: in house test please 03/03 15:36 Order name: Glucose, Ancillary Testing; Complete Time: 15:45 EDMS 03/03 17:08 Order name: Glucose, Ancillary Testing; Complete Time: 18:35 EDMS 03/03 19:59 Order name: SARS-COV-2 RT PCR EDME 03/03 12:19 Order name: IV Saline Lock; Complete Time: 12:41 03/03 12:19 Order name: Labs collected and sent; Complete Time: 13:36 03/03 14:50 Order name: EKG; Complete Time: 14:51 03/03 14:50 Order name: EKG - Nurse/Tech; Complete Time: 15:41 cp 03/03 15:57 Order name: PO challenge; Complete Time: 17:07 03/03 18:46 Order name: CONS Physician Consult EDMS EC:38 Rate is 87 beats/min. Rhythm is regular. SD interval is normal. QRS interval is cp prolonged at 110 msec. QT interval is normal. T waves are Inverted in leads V4, V5, V6. Interpreted by me. Reviewed by me. Administered Medications: 12:37 Drug: Phenergan 12.5 mg Route: IVP; Site: right antecubital; tw2 13:34 Follow up: Response: No adverse reaction; Nausea is decreased tw2 12:39 Drug: Pepcid 20 mg Route: IVP; Site: right antecubital; tw2 13:34 Follow up: Response: No adverse reaction tw2 13:25 Drug: NS 0.9% 250 ml Route: IV; Rate: 75 ml/hr; Site: right antecubital; tw2 17:07 Follow up: Response: No adverse reaction; IV Status: Order to discontinue infusion; IV tw2 Intake: 250ml 14:45 Drug: hydrALAZINE 5 mg Route: IV; Rate: calculated rate; Site: right antecubital; tw2 14:46 Follow up: Response: No adverse reaction; IV Status: Completed infusion; IV Intake: tw2 0.25ml 14:56 CANCELLED (Physician Discretion): D5-1/2 NS 1000 ml IV at 120 ml/hr once; 1000 mL sv bolus; followed by 125 mL/hr continuous 15:53 Not Given (Physician Discretion): Insulin Drip - (Insulin Regular Human 100 units, NS cp 0.9% 100 ml) IV at 3 units/hr continuous; Standard concentration 1unit/ml; Dose for DKA is 0.1 units/kg/hr 15:53 Not Given (Physician Discretion): D5-1/2 NS 1000 ml IV at 125 ml/hr continuous cp 16:20 Drug: Insulin Regular Human 5 units {Co-Signature: ofelia (Baljit Vasquez RN).} Route: tw2 IVP; Site: right antecubital; 16:55 Follow up: Response: No adverse reaction; Blood sugar is unchanged tw2 16:22 Drug: D50W 25 ml Route: IVP; Site: right antecubital; tw2 16:25 Follow up: Response: Other; Other - infiltration noted, warm compress applied, provider tw2 notified. 16:25 Drug: Kayexalate 45 grams Route: PO; tw2 17:07 Follow up: Response: No adverse reaction tw2 16:47 Drug: Phenergan 12.5 mg Route: IVP; Site: right antecubital; tw2 17:07 Follow up: Response: No adverse reaction; Nausea is decreased tw2 Point of Care Testing: Blood Glucose: 16:55 Blood Glucose: 123 mg/dL; tw2 16:55 per KJ,Tech tw2 Ranges: Critical Glucose Levels:Adult <50 mg/dl or >400 mg/dl <40 mg/dl or >180 mg/dl Disposition: 03/04 06:27 Co-signature as Attending Physician, London Rodriguez MD I agree with the assessment and kdr plan of care. Disposition: 03/03/20 18:28 Hospitalization ordered by Vasile Schofield for Inpatient Admission. Preliminary diagnosis are Nausea and vomiting, End stage renal disease, Hyperkalemia. - Bed requested for Telemetry/MedSurg (Inpatient). - Status is Inpatient Admission. ll2 - Condition is Fair. - Problem is new. - Symptoms have improved. Signatures: Dispatcher [employer] Carole Cross, Shoshana Arboleda RN, RN RN dw Rittger, Kevin, MD MD [facility] Ania Gonsalves RN RN iw Cesar William, JASMIN PA Ayaka London RN RN tw2 Lluvia Fink RN RN 2 Baljit Vasquez RN jd3 Corrections: (The following items were deleted from the chart) 03/03 14:56 14:50 D5-1/2 NS 1000 ml IV at 120 ml/hr once; 1000 mL bolus; followed by 125 mL/hr sv continuous ordered. cp 15:49 15:45 Normal except: K 6.2; CO2 18; GLUC 147; BUN 117. cp cp 20:13 18:28 Hospitalization Ordered by Vasile Schofield MD for Inpatient Admission. Preliminary dw diagnosis is Nausea and vomiting; End stage renal disease; Hyperkalemia. Bed requested for Telemetry/MedSurg (Inpatient). Status is Inpatient Admission. Condition is Fair. Problem is new. Symptoms have improved. cp 21:08 20:13 03/03/2020 18:28 Hospitalization Ordered by Vasile Schofield MD for Inpatient ll2 Admission. Preliminary diagnosis is Nausea and vomiting; End stage renal disease; Hyperkalemia. Bed requested for Telemetry/MedSurg (Inpatient). Status is Inpatient Admission. Condition is Fair. Problem is new. Symptoms have improved. dw
[2020-03-03] MEDS ORDERED: D5 0.45 NS 1,000 ML IV SCH (19:00)
[2020-03-03] MEDS ORDERED: ALBUMIN HUMAN 25% 50 ML IV ONE (20:54)
--- NOTE | 2020-03-03 22:12 | HP ---
Date of Admission: 03/03/2020 Chief Complaint: Nausea, vomiting, and headache. History Of Present Illness: This is a 50-year-old female patient with multiple comorbidities, came i [facility] emergency room today with nausea, vomiting, headache, not able to keep anything down, and missing last 2 dialysis session. The patient was in hospital last week from 02/22/2020 to 02/26/2020 with s imilar complaints. She was evaluated by Dr. Alcala and she had a complete workup done including CA T scan of the head and MRI of the brain, and those results were unremarkable. Dr. Alcala determine d that the patient had cluster headache and initially he treated her with oxygen therapy and [facility] started her on Topamax, which was increased dose to 50 mg 2 times a day. She also had dialysis done per her print finisher last hospital stay and once her nausea and vomiting came under control, she was able to tolerate diet and she was discharged to go home. Over the weekend, which is on 03/01/20, the patient contacted me and informed me that she was having headache problem again and that star marsha after she came home from the hospital, associated with nausea, vomiting, and she was not able to keep anything down and her systolic blood pressure was around the range of 200. She was advised to c ome to the emergency room for further evaluation and management of this problem and unfortunately the patient never came to emergency room after I talked to her as she decided not to come back to [facility] after she talked to me, the patient said that she tolerated some Jell-O and she decided not to c ome to ER anymore, and then her problems continued, so today she decided to come to the emergency [facility]. After she was evaluated, she was admitted to the hospital. I saw her in the emergency room. Her headache is in left frontal region, unchanged from before. No abdominal pain. No heartburn or neena gestion. Allergies: NO KNOWN ALLERGIES. 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 GI: As mentioned above. Eyes: The patient is legally blind in both eyes. All other systems reviewed and negative. Past Medical History: Significant for diabetes mellitus, which is diet controlled now. She has diab etic neuropathy and diabetic gastroparesis, hypertension, mixed hyperlipidemia, coronary artery disea se, chronic systolic congestive heart failure, hepatitis C, end-stage renal disease, on hemodialysis. Past Surgical History: Significant for coronary artery stent placement in June 2016 and hysterectom y. Family History: Father had coronary artery disease, hypertension, hyperlipidemia, diabetes. Mother with hypertension, diabetes, and thyroid problem. Social History: Negative for smoking. Alcohol use, 1 drink very rarely. Medications List: The patient takes gabapentin and she was sent home last hospital stay with carvedi lol 25 mg 2 times a day, hydralazine 100 mg 2 times a day, topiramate 50 mg 2 times a day, verapamil 80 mg 2 times a day. Physical Examination: Vital Signs: Blood pressure when she first came in 164/102, pulse 95, respiratory rate 16, temperatu re 96.9, pulse ox 100%, weight 68.04 kg, height 5 feet 8 inches. General: Awake, alert, oriented, not in distress. HEENT: Head atraumatic, normocephalic. Opacity of bilateral cornea. Mouth, no thrush or edema note d. Ears/Nose, no mass, lesion, discharge noted. Neck: Supple. No JVD, lymph nodes, bruit, thyromegaly noted. Lungs: Bilateral good equal air entry. Clear to auscultation. No rhonchi. No rales. Heart: Normal heart sounds. No murmur or gallop. Abdomen: Soft. Bowel sounds normal. No guarding, rigidity, tenderness, mass, hepatosplenomegaly, d istention, or bruit noted. Extremities: No leg edema. No calf tenderness. Skin: No rash, ulcer, cellulitis. Lymphatics: No lymph node enlargement in neck, supraclavicular, infraclavicular region. Neuro: No focal neurological deficit. Chest: Unremarkable. External Genitalia: Deferred. Rectal: Deferred. Laboratory Data: CAT scan of the head was negative for any acute intracranial changes. White count 7.5, hemoglobin 12.4, platelets 232. Sodium 136, potassium 6.2, chloride 99, bicarb 18, BUN 117, cre atinine 22.8, glucose 147. Liver function tests unremarkable. Lipase 493. Serum acetone negative. COVID-19 test negative. Impression: 1.Intractable nausea with vomiting. 2.Headache, cluster headache. 3.Hypertension. 4.End-stage renal disease, on hemodialysis. 5.Hyperlipidemia. 6.Coronary artery disease. 7.Chronic systolic congestive heart failure. 8.Gastroparesis secondary to diabetes. 9.Diabetic neuropathy. 10.Legally blind. Plan: Admit the patient to hospital for further evaluation and management of this problem. The karolyn ent is appropriate for inpatient and is expected to spend 2 midnights in hospital. The patient has m etabolic abnormality related to her end-stage renal disease and not getting dialysis. Irrigation System Operator w ill be consulted for dialysis support. We will consult neurologist also. I have also discussed deta ils with Dr. Shirley and requested him to evaluate the patient. Details and plan of treatment discuss ed with the patient. We will go ahead and give symptomatic treatment for her headache and nausea, vo miting at this point, and I will see her tomorrow for followup. Home medications will be continued p er order. VINCENT/MODL Voice ID: [id number]
[2020-03-03 22:27] VITALS: BMI 22.8
[2020-03-03] MEDS: ACETAMINOPHEN 500 MG TAB PO PRN (22:56)
[2020-03-04] MEDS: PROMETHAZINE INJ 25 MG/ML AMP IV PRN ×4 (01:46→11:15)
[2020-03-04 04:25] LABS: Absolute Lymphocytes (CBC) 0.5 K/uL (0.7-4.9); Basophils % 0.8 % (0-1.3); Hematocrit 36.4 % (36.0-45.0); Lymphocytes % 7.7 % (15.3-44.8); RBC Red Blood Cell Count 4.02 M/uL (3.86-4.86)
[2020-03-04] MEDS: ACETAMINOPHEN 500 MG TAB PO PRN ×3 (04:46→23:26)
[2020-03-04 04:58] LABS: ALT/SGPT 32 U/L (12-78); AST/SGOT 31 U/L (15-37); Albumin 3.3 g/dL (3.4-5.0); Alkaline Phosphatase 111 U/L (45-117); BUN Blood Urea Nitrogen 50 mg/dL (7-18); Bicarbonate 25 mmol/L (21-32); Bilirubin Direct < 0.1 mg/dL (0-0.2); Bilirubin Total 0.4 mg/dL (0.2-1.0); Glucose Level 148 mg/dL (74-106); Lipase 628 U/L (73-393); Potassium 3.7 mmol/L (3.5-5.1); Protein, Total 10.2 g/dL (6.4-8.2); Sodium Level 136 mmol/L (136-145)
[2020-03-04] MEDS: carvediloL 25 MG TAB PO SCH ×2 (08:31→20:53)
[2020-03-04] MEDS: HYDRALAZINE HCL 25 MG TABLET PO SCH ×2 (08:31→20:52)
[2020-03-04] MEDS: TOPIRAMATE 25 MG TAB PO SCH ×3 (08:32→20:58)
[2020-03-04] MEDS: GABAPENTIN 100 MG CAP PO SCH ×2 (08:32→20:53)
[2020-03-04] MEDS: VERAPAMIL HCL 80 MG TABLET PO SCH ×2 (08:34→20:52)
[2020-03-04] MEDS ORDERED: HOME MED 1 EA UNK (Topiramate [Topiramate] 50 MG Tablet) PO SCH (09:00)
--- NOTE | 2020-03-04 13:06 | CON ---
Date of Consultation: 03/04/2020 Reason For Consultation: ESRD, on dialysis. History Of Present Illness: Ms. Brooke is a 50-year-old female with past medical history significa nt for history of ESRD, on dialysis, who has missed her dialysis for whole week. She has been having persistent headaches, which were believed to be cluster headaches and was treated with oxygen therap y and started on Topamax. She was having persistent nausea, vomiting, and was unable to keep anythin g down and hence, she presented to the hospital for further evaluation. She was found to have hyperk alemia and severe uremia. Her mother is sitting at her bedside and she states that she has been conf used since the last 1 or 2 days. Also, she continues to have headaches and has persistent nausea and vomiting, but otherwise denies any other complaints. Past Medical History: Significant for history of diabetes, diabetic neuropathy, diabetic gastropares is, hypertension, hyperlipidemia, chronic systolic heart failure, hepatitis C, and ESRD, on dialysis. Past Surgical History: Significant for history of coronary artery stent placement and hysterectomy. Family History: Significant for father with history of coronary artery disease and mother with hyper tension and diabetes. Social History: No history of smoking, alcohol, or drug use reported. Home Medications: Have been reviewed. Physical Examination: Vital Signs: At this time are showing temperature of 97.6, pulse rate of 101, respiratory rate of 16 , and blood pressure 172/98. She is saturating 98% on room air. General: She appears in no acute distress. HEENT: Shows atraumatic head. Lungs: Clear to auscultation. Abdomen: Soft and nontender. Extremities: Showed no evidence of edema. Laboratory Data: At this time showing creatinine of 12.2, BUN of 50, albumin of 3.3, and lipase of 6 28. CBC showing stable hemoglobin, hematocrit, and platelet count. Current Medications: Have been reviewed in detail. She remains on Topamax 50 mg b.i.d., verapamil, hydralazine, carvedilol, gabapentin. Consult has been placed for Dr. Alcala as well. Impression: 1.End-stage renal disease, on dialysis. 2.Severe headaches, likely secondary to cluster headaches. Will need further evaluation by Neurolog y. 3.Intractable nausea and vomiting, possibly associated with headaches. 4.Coronary artery disease. 5.Chronic systolic heart failure. 6.Diabetic gastroparesis. Plan: The patient is overall clinically stable; however, I have counseled her regarding missing her dialysis treatments and the need for routine dialysis to prevent further worsening of her clinical st atus. We will further follow up with Dr. Schofield to see if what else recommendations Neurology has and we will follow up. We will plan for dialysis tomorrow again and we will follow up closely. Plan was discussed with her mother at bedside. VV/MODL Voice ID: [id number] Report ID: [id number]
[2020-03-04] MEDS ORDERED: ERENUMAB SQ SCH (17:00)
--- NOTE | 2020-03-04 17:25 | CON ---
Reason For Consultation: Consultation called because of nausea, vomiting, headache. History Of Present Illness: Ms. Brooke is a 50-year-old patient with end-stage renal disease, on h emodialysis, who was just hospitalized with severe headaches and the evaluation led to diagnosis of e pisodic cluster headaches. She was discharged home on 02/25 after a 4 day hospitalization and headac hes that had been controlled at the time of discharge. While hospitalized, her head CT scan and brai n MRI were unremarkable. She was put on Topamax 200 mg daily and did well until this weekend when sh e began having more headaches and that is 4 days after discharge. The headaches are associated with nausea, vomiting, and she did have elevated blood pressures. At [facility], blood work show ed her complete blood count with differential essentially unremarkable results, except slightly eleva marsha neutrophils of 83.4. Arterial blood gas showed a pH 7.33 with a PO2 of 101, pCO2 of 42.4, her cr eatinine was 12.2, glucose ranged from 86 to 123. Sodium, potassium, chloride, carbon dioxide were u nremarkable. BUN 52. Liver function studies were normal. Acetone level was negative. She did have a repeat head CT scan, which showed no acute ischemic or hemorrhagic changes; however, small vessel ischemic disease was seen in the previous study and the ventricles were enlarged. This has remained stable since 2017. Past Medical History: Diabetes mellitus, chronic systolic congestive heart failure, hypertension, dy slipidemia, coronary artery disease, diabetic neuropathy. Allergies: NO KNOWN DRUG ALLERGIES. Past Surgical History: Coronary stents placed in 2017, hysterectomy. Family History: Hypertension, dyslipidemia, diabetes with coronary artery disease in mother and [facility] er with hypertension, diabetes and thyroid issues. Social History: No alcohol, tobacco, or IV drug use. Medications: Currently, gabapentin 200 mg twice daily, Coreg 25 mg twice daily, heparin 1000 units s ubcutaneously with dialysis, Apresoline 100 mg twice daily, Phenergan 25 mg daily, topiramate 50 mg t wice daily, Calan 80 mg twice daily. She is now started on Aimovig shot 1 monthly and is given Ubrel vy for abortive headache treatment. Review of Systems: Ms. Brooke does report headache. She is lying in bed with low light in the room and reports some p ounding and nausea. Physical Examination: HEENT: She, otherwise, is atraumatic and normocephalic. She is virtually blind bilaterally, but oth erwise oropharynx is moist, pink. Neck: Supple. Chest: Clear. Heart: Regular. Extremities: Show trace edema. Neurologic: She is alert, oriented, but does report some significant headache; otherwise, on cranial nerve exam, aside from eyes being compared bilaterally with almost no vision, she does have symmetric face with good excursions bilaterally and tongue and palate are midline. Motor examination: She campa s no focal deficits in the upper and lower extremities. Sensory exam: She had stocking-glove loss t o light touch temperature. Reflexes: Depressed throughout, absent in upper and lower extremities. Coordination: Intact but slow. She is resting in bed. She was not ambulated due to severe headache . Assessment: Ms. Brooke is a 50-year-old patient with episodic cluster headache and multiple medica l problems including end-stage renal disease, on hemodialysis; diabetes mellitus; diabetic peripheral neuropathy; hypertension; dyslipidemia, who comes back with more headaches. Plan: 1.Topamax as directed at 50 mg twice daily. 2.Aimovig 140 mg subcutaneously x1, then 70 mg subcutaneously monthly. 3.Ubrelvy 100 mg now and may repeat in 2 hours if no headache relief, max of 2 in 24 hours. 4.Continue with aggressive management of her comorbid conditions per Dr. Schofield including hypertension , diabetes, dyslipidemia. DAYSI/SUDHA Voice ID: [id number] Report ID: [id number]
[2020-03-04] MEDS ORDERED: UBRELVY 100 MG PO PRN (21:00)
[2020-03-05] MEDS: TOPIRAMATE 25 MG TAB PO SCH (08:07)
[2020-03-05] MEDS: GABAPENTIN 100 MG CAP PO SCH (08:07)
--- NOTE | 2020-03-05 08:17 | PN ---
Date of Progress Note: 03/04/2020 Subjective: The patient was seen this morning for followup. She continues to have her headache and nausea. Denies any vomiting overnight. Objective: Vital Signs: Reviewed. HEENT: Examination unremarkable. Lungs: Clear to auscultation. Heart: Sounds normal. Abdomen: Soft. Bowel sounds normal. No guarding, rigidity, tenderness, distention. Extremities: No leg edema. Laboratory Data: White count 7.1, hemoglobin 12.5, platelets 242. Sodium 136, potassium 3.7, chlori de 98, bicarb 25, BUN 50, creatinine 12.2, glucose 148. Impression: 1.Intractable headache. 2.Intractable nausea and vomiting. 3.End-stage renal disease, on hemodialysis. 4.Hypertension. Plan: We will continue to follow with terminal gauger supervisor for dialysis and continue to follow with gastroen terologist, Dr. Shirley and neurologist, Dr. Alcala. We will continue other current medications inc luding supportive care for nausea, vomiting, and her home medications will be continued per order. VINCENT/MODL Voice ID: [id number] Report ID: [id number]
[2020-03-05] MEDS: VERAPAMIL HCL 80 MG TABLET PO SCH (08:43)
[2020-03-05] MEDS: HYDRALAZINE HCL 25 MG TABLET PO SCH (08:43)
[2020-03-05] MEDS: carvediloL 25 MG TAB PO SCH (08:43)
--- NOTE | 2020-03-05 11:17 | DS ---
Date of Discharge: 03/05/2020 Disposition: The patient will be discharged to go home after dialysis today. Physical Examination: HEENT: Examination unremarkable except opaque cornea, which is chronic finding for her. Lungs: Clear to auscultation. Heart: Sounds normal. Abdomen: Soft. Bowel sounds normal. No guarding, rigidity, tenderness, or distention. Extremities: No leg edema. Laboratory Data: Upon admission, white count 7.5, hemoglobin 12.4, platelets 232. Yesterday, white count 7.1, hemoglobin 12.5, platelets 242. Yesterday's chemistry shows sodium 136, potassium 3.7, chloride 98, bicarb 20, BUN 50, creatinine 12.20, glucose 148. Liver function tests unremarkable. Lipase 620 and upon admission, lipase was 493, sodium 136, potassium 6.2, chloride 99, bicarb 18, BUN 117, creatinine 22.80, glucose 147. Her AST 24, ALT 19, total bilirubin 0.4. Hospital Course: A 50-year-old female patient admitted to the hospital with headache, nausea, and vomiting. Please see dictated H and P for more details and information. The patient came into emergency room with these complaints. After she was evaluated, she was admitted to the hospital. CAT scan of the head was done, which was negative for any acute intracranial changes. She was in the hospital a few days prior to this admission with similar problem and during that time, she also had a negative CAT scan of the head and negative MRI of brain. She was seen by Dr. Alcala during last hospital admission as well as this hospital admission for her headache problem and Dr. Alcala has diagnosed her as having cluster headache and last time, she was discharged to go home with verapamil and topiramate and this time, Dr. Alcala has made some more changes in her medication. When I saw her today, she did not have any headache at all and she reports that yesterday all day she did not have any headache. She has not had any nausea or vomiting yesterday or today and she was started on diet which she says yesterday she had 1 meal, which was her dinner and this morning she had breakfast and so far, she has tolerated both meals very well without any nausea or vomiting problem. She does not have any abdominal pain, and elevated lipase level noted on blood work will be considered as a nonspecific finding without any clinical evidence of pancreatitis. Today, she is scheduled to have dialysis. Patient would like to go home today and medically, she is stable for discharge. After dialysis, we will plan to discharge her to go home. Her blood pressure was running low last night with systolic blood pressure 89, so we will have to ask her upon discharge to stop her verapamil and will have to reduce dose of her hydralazine and carvedilol. For headache, we will get specific recommendation from Dr. Alcala regarding which medication he wants her to go home with. Please see copy of discharge order for details regarding discharge medications. Dr. Shirley from GI was consulted during this hospital stay, but he has not had a chance to see her yet and hopefully, he will be able to see her today. Final Diagnoses: 1. Intractable nausea with vomiting. 2. Headache, cluster headache, episodic. 3. Hypertension. 4. End-stage renal disease, on hemodialysis. 5. Hyperlipidemia. 6. Coronary artery disease. 7. Chronic systolic congestive heart failure. 8. Gastroparesis, secondary to diabetes. 9. Diabetic neuropathy. 10. Legally blind. Discharge medications and instructions: Continue Gabapentin as before, do not take Nifedipine. Take Topiramate 50 mg two times a day, Carvedilol 25 mg two times a day. Check your blood pressure two times a day and if your systolic blood pressure is higher than 160, then take Hydralazine 100 mg, 1/2 tablet dose at that time. Follow up with Dr. Alcala next week on Monday to get samples from his office for headache medication and follow up with Dr. Alcala in two weeks. VINCENT/MODL Voice ID: [id number] Report ID: [id number] JERRY
[2020-03-05 12:14] VITALS: O2SAT 95
[2020-03-05] MEDS ORDERED: ALBUMIN HUMAN 25% 50 ML IV ONE (13:15)
--- NOTE | 2020-03-05 13:47 | CON ---
Date of Consultation: 03/05/2020 Reason For Consultation: Intractable nausea and vomiting. History Of Present Illness: The patient is a 50-year-old, female with history of di abetes, hypertension, diabetic neuropathy, retinopathy and gastroparesis. Patient presented to [facility] with nausea, vomiting, and headache. The patient is unable to keep anything down. GI consultatio n requested. Patient was in the hospital from February 21 to February 25 with similar complaints. Evaluated by Dr. Alcala. Complete workup including CT scan, head MRI with results being unremarka ble. The patient determined to have cluster headache, initially oxygen therapy and put on Topamax. Discharge home over the weekend. Started having recurrent nausea, vomiting, unable to keep anything down. Systolic blood pressure of 200, went to the emergency room. Neurology is consulted again. Ne w medicines for either cluster migraine headaches given. The patient feels much better, also her pota ssium on admission was over 6. The patient underwent dialysis urgently. Now potassium down into the 3-4 range. The patient feels much better. No nausea or vomiting currently after dialysis and heada gilma medications. She feels well, able to tolerate food. Says she wants to go home today [place] E ve to enjoy holidays with her family. Past Medical History: Significant for hypertension, diabetes, diabetic neuropathy, diabetic retinopa thy, diabetic gastroparesis, hyperlipidemia, coronary artery disease, congestive heart failure, hepat itis C, end-stage renal disease, cardiac stent June 2016 and hysterectomy. Medications: See list. Allergies: NKDA. Social History: She is , 2 children. No tobacco, or alcohol. Family History: Father with diabetes, hypertension, hyperlipidemia, coronary artery disease. Mother with diabetes, hypertension, coronary artery disease, also thyroid disorder. Home Medications: Include gabapentin, carvedilol, hydralazine, topiramate, Topamax and verapamil. Review of Systems: Patient had nausea, vomiting seems to be totally resolved now. She denies any abdominal pain, fevers , chills, night sweats, heat or cold intolerance, chest pain, shortness of breath, seizure, syncope, muscle aches, joint aches, backaches, depression, anxiety. Physical Examination: Vital Signs: Patient is 5 foot, 150 pounds, BMI 22.8 kg/m2. Temperature 97.2 degrees Fahrenheit, pu lse 86, respirations 16, blood pressure 136/85, O2 saturation 95% to 97%. General: She is a well-nourished female lying in bed, in no acute distress. HEENT: Remarkable for opaque pupils. Her extraocular movements were intact. Neck: Supple. No masses. Respirations: Clear to auscultation anteriorly. Cardiac: Regular rate and rhythm. Gastrointestinal: Positive bowel sounds. Soft, nontender, nondistended. No hepatosplenomegaly. Extremities: No clubbing, cyanosis. Some mild edema. Neuro: Alert and oriented x3, able to move extremities. Laboratory Data: The patient has a white count 7.1, hemoglobin 12.5, hematocrit 36.4, MCV of 91, magnolia telet count 242, polys 83%, lymphocytes 8%, monocytes 8%. Sodium 136, potassium 3.7, chloride 98, bic arb 25, BUN of 50, creatinine of 12.20, glucose 148, calcium 9.5, total bilirubin 0.4, direct bilirub in less than 0.1, AST 31, ALT 32, alkaline phosphatase 111, total protein 10.2, albumin 3.3, lipase 6 28. Yesterday patient had potassium of 6.2, creatinine of 22.8 on the . Acetone level negative. COVID test on the was negative as well. Her CT of head on was unremarkable. Impression: 1.Nausea, vomiting secondary to headache disorder possibly cluster versus migraine or both. An incr eased renal failure with creatinine of 22.8 and potassium elevated at 6.2. This is resolved with hem odialysis and change in headache therapy by Neurology. The patient has no nausea, vomiting currently . 2.History of diabetes, hypertension, diabetic neuropathy and retinopathy, gastroparesis, hyperlipide nydia, coronary artery disease, congestive heart failure, hepatitis C, end-stage renal disease, on hemo dialysis, cardiac stents in June 2016, hysterectomy. Recommendation: 1.Continue migraine cluster headache therapy. 2.Continue hemodialysis schedule. 3.GI Clinic followup. GILBERT/SUDHA Voice ID: [id number] Report ID: [id number]
--- NOTE | 2020-03-05 13:59 | PN ---
Subjective: Ms. Brooke reports headache is 0/10 at this point. She did receive a shot of Aimovig last night and Ubrelvy 100 mg and she said she is doing well. She had a minor headache this morning, relieved by just Tylenol. She has multiple comorbid conditions and is scheduled for hemodialysis la ter today and will be discharged home and follow up in clinic after that. Objective: Vital Signs: Blood pressure 136/85, pulse 86, respiratory rate 16, temperature 97.6, O2 saturation 95% on room air. Weight 150 pounds. Height 5 feet 8 inches. General: Ms. Brooke is lying in bed, in no distress. Neurologic: She has no focal neurological deficits. She does have chronic issues with poor vision b ilaterally and actually absent vision largely. In the upper and lower extremities, no focal deficits . It should be noted prior workup including brain MRI and CT scan were unremarkable for any acute ische meng or hemorrhagic changes, but it does show small vessel ischemic disease. Complete blood count wit h differential yesterday essentially unremarkable. The glucose ranged from 71-133. Yesterday, creat inine 12.2 and she underwent dialysis. Liver function studies are normal. Assessment: Ms. Brooke is a 50-year-old with episodic cluster headache and multiple medical proble ms including end-stage renal disease, on hemodialysis. This appear to respond to Aimovig with Ubrelv y. Plan: 1.Aimovig. We will continue with 70 mg subcutaneously monthly. Next dose will be due on April 03 to . Also, we will use Ubrelvy 100 mg as needed for abortive headache treatment. 2.Continue Topamax 50 mg twice daily. 3.Aggressive management of the comorbid conditions as per Dr. Schofield. Please note, she may be discharged home today and follow up in Dr. Alcala's clinic in 1 month. DAYSI/SUDHA Voice ID: [id number] Report ID: [id number]
[2020-03-05 15:10] VITALS: TEMP 96.9
[2020-03-05 17:19] VITALS: BP 125/78
== END 2020-03-05 18:02 | disposition home or self-care (01) | DRG 102 ==
LOC: ER 10:46 → ERHOLD 18:46 → 2ND 20:40
PROVIDERS: ADMIT Internal Medicine; ATTEND Internal Medicine
PROC: 5A1D70Z Performance of Urinary Filtration, Intermittent, Less than 6 Hours Per Day (ICD-10-PCS; principal; 2020-03-05)
DX: G44.019 Episodic cluster headache, not intractable (principal); N18.6 End stage renal disease; I50.22 Chronic systolic (congestive) heart failure; I13.2 Hypertensive heart and chronic kidney disease with heart failure and with stage 5 chronic kidney disease, or end stage renal disease; E11.22 Type 2 diabetes mellitus with diabetic chronic kidney disease; E11.40 Type 2 diabetes mellitus with diabetic neuropathy, unspecified; E11.319 Type 2 diabetes mellitus with unspecified diabetic retinopathy without macular edema; E11.43 Type 2 diabetes mellitus with diabetic autonomic (poly)neuropathy; I25.10 Atherosclerotic heart disease of native coronary artery without angina pectoris; H54.8 Legal blindness, as defined in USA; E78.5 Hyperlipidemia, unspecified; K31.84 Gastroparesis; E87.5 Hyperkalemia; Z99.2 Dependence on renal dialysis; Z90.49 Acquired absence of other specified parts of digestive tract; Z95.5 Presence of coronary angioplasty implant and graft; Z91.15 Patient's noncompliance with renal dialysis; Z90.710 Acquired absence of both cervix and uterus; Z88.5 Allergy status to narcotic agent; Z20.828 Contact with and (suspected) exposure to other viral communicable diseases
CPT/HCPCS: 36415; 70450; 80048; 80076; 82010; 82805; 82947; 83690; 85025; 90935; 93005; 96361; 96374; 96375; 99285; J0360; J1644; J2550; J7050; J7799; P9047; U0003

== ENCOUNTER 2020-06-03 07:52 | Emergency (ER) | payer OTHER ==
--- OUTSIDE RECORDS SUMMARY | 2020-06-03 08:01 | XMS REPORT | Continuity of Care Document ---
:1970 Author Organization [facility] t Address [address] [place] [address] Care Team Providers Name Role Phone UNKNOWN Primary Care Physician Unavailable SARAH Attending Clinician Unavailable Cassandra ZARAGOZA Attending Clinician Unavailable Gabriel Attending Clinician Unavailable Georgi Attending Clinician Unavailable Rina Attending Clinician Unavailable Jeanette RN, P Attending Clinician Unavailable Zbigniew ARROYO Attending [...] Expiration Date Sour ce Number MEDICAREMEDICARE A [id number] [facility] [id number] - M edical for all datesMedicare Simin ter MEDICAIDMEDICAID OF [id number] 2017 [facility] [id number] 00:00:00 - Medical -PresentMedicaid Center Problems Condition Condition Condition Status Onset Resolution Last Treating Co mments Source Name Details Category Date Date Treatment Clinician Date PERFORATED Diagnosis Active 2019-04-19 Memoria CORNEAL 2 11:44:00 l ULCER, 00:00: [place] LEFT EYE PERFORATED 00 CORNEAL ULCER, LEFT EYE Active 04/18/2019 [facility] Anemia Anemia Disease Active 2016-[address] [facility] [address] [facility] 00:[facility]: Medical 00 [place] Hydrocepha Hydrocepha Disease Active 2016-[address] eliot eliot 2-14 [facility] - 00:[facility]: Medical 00 [place] History of History of Disease Active 2016-[address] DVT (deep DVT (deep 2-13 [facility] - vein vein 00:00: Medical thrombosis thrombosis 00 Ce nter ) ) Headache Headache Disease [facility] 2016[facility] 00 [place] Dizziness Dizziness Disease Active 2016-[address] [facility]13 [facility] - 00[facility]: Medical 00 [place] Nausea & Nausea & Disease Active 2016-03 [facility] vomiting 2[facility]13 [facility] - 00:[facility]: Medical 00 [place] AVF AVF Disease Active 2016-03 Overview: [facility] (arteriove (arteriove 1-15 Left-10/ [facility] - nous nous 00:00: 0/17 Medical fistula) fistula) 00 Center Ischemic Ischemic Disease Active 2016-03 [facility] cardiomyop cardiomyop 0-23 Brittany kes - athy athy 00:00: Medical 00 Center Chronic Chronic Disease Active [facility] 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 [facility] - C without C without 00:00: Medi socorro hepatic hepatic 00 Center coma coma ESRD (end ESRD (end Disease Active [facility] stage stage 3-24 [facility] - renal renal 00:00: Medical disease) disease) 00 Center Type 2 Type [address] [facility] diabetes diabetes 3-24 [facility] - mellitus mellitus 00:00: Medica l with with 00 Center complicati complicati on on Essential Essential Disease Active [facility] hypertensi hypertensi 06-03 Brittany kes - on on 00:00: Medical 00 Center NOSE BLEED Diagnosis Active 2015-08-05 Memoria 08-04 17:41:00 l NOSE 00:00: [place] BLEED 00 Active 08/05/2015 [facility] [place] UNK Diagnosis Active 2015-08-21 Mem oria 06-28 14:28:00 l UNK 00:00: [place] 00 Active 06/29/2015 [facility] VOMITING/C Diagnosis Active 2015-06-17 Memoria HILLS 06-16 12:30:00 l 00:00: [place] VOMITING/C 00 HILLS Active 06/17/2015 [facility] VOMITING Diagnosis Active 2014-09-01 M emoria 08-29 13:41:00 l VOMITING 00:00: Myles n 00 Active 08/29/2014 [facility] CAD CAD Disease Active Overview: [facility] [...] He rmann mellitus (disorder) Resolved Problem 04/21/2019 [facility], Tavia,[facility], KAYLYN Squires,[facility] History of Problem Resolve 2019-04-21 Memoria - migraine d 23:42:23 l (context-d History Her hollis ependent of - category) migraine (context-d ependent category) Resolved Problem 04/21/2019 [facility] Squires,[facility] Heartburn Problem Resolve 2019-04-21 M emoria (finding) d 23:42:23 l Y[place] Heartburn (finding) Resolved Problem 04/21/2019 [facility], Tavia,[facility], KAYLYN [place] Hypertensi Problem Resolve 2019-04-21 Memoria ve d 23:42:23 l disorder, Yovani systemic Hypertensi arterial ve (disorder) disorder, systemic arterial (disorder) Resolved Problem 04/21/2019 [facility], Sara Squires [facility], KAYLYN Tavia,M Marisela [facility] Dyspnea Problem Resolve 2019-04-21 Mem oria (finding) d 23:42:23 l Dyspnea Yovani (finding) Resolved Problem 04/21/2019 [facility], Tavia,Sara Soto, KAYLYN Squires History of Past Illness Condition Condition Condition Status Onset Resolution Last Treating Co mments Source Name Details Category Date Date Treatment Clinician Date Discharge Problem 2015-06-20 2015-06-20 Memoria Diagnosis: 4- 03:51:39 03:51:39 l N&V 05:00: Yovani (nausea Discharge 00 and Diagnosis: vomiting) N&V (nausea and vomiting) 06/17/2015 06/20/2015 [facility] Discharge Problem 2014-09-01 2014-09-01 Memoria Diagnosis: 6-19 11:15:55 11:15:55 l Acute 05:00: Yovani headache Discharge 00 Diagnosis: Acute headache 5 09/01/2014 [facility] Allergies, Adverse Reactions, Alerts Allergy Allergy Status Severity Reaction(s) Onset Inactive Treating Comm ents Source Name Type Date Date Clinician Tramadol Drug Active Nausea And 2017- dizziness [facility] Intolera Vomiting, 3-27 [facility] - nce Other (See 00:00: Medica l Comments) 00 Center No Known DA Active U 2004-0 [facility] Contrast 5-18 [place] Allergie 00:00: d s [facility] No Known DA Active U 2004-0 [facility] Drug 5-18 [place] Allergie 00:00: d [facility] No Known DA Active U 2004-0 [facility] Food 5-18 [place] Allergie 00:00: d s [facility] No Known DA Active U 2004-0 [facility] Other 5-18 [place] Allergie 00:00: d s [facility] No Known DA Active U 2004-0 [facility] Drug 5-18 [place] [facility]era [facility] traMADol traMADol Active Alex Pina Social History Social Habit Start Date Stop Date Quantity Comments Source Sex Assigned At [facility] Tobacco use and 2019-07-24 2019-07-[address] [facility] - exposure 00:00:00 00:00:00 Medical Center Alcohol intake 2019-07-24 2019-07-24 Current [facility] [place] es - 00:00:00 00:00:00 non-drinker of Medical Ce nter alcohol (finding) Social History 2015-06-30 2015-06-30 [facility] 18:17:45 18:17:45 Smoking Status Start Date Stop Date Source Never smoker [facility] Medications Ordered Filled Start Stop Current Ordering Indication Dosage Frequency Signature Comments Components Source Medication Medication Date Date Medication? Clinician (SIG) Name Name Hydralazine 2020-0 No 10 mg, Juan Manuel héctor - Route: l 21:10: IVP, Yovani 00 Q20Min, Dosing Weight 70.9, kg, PRN Elevated BP, Start date: 04/19/19 15:10:00 [employer], Duration: 2 doses or times, Stop date: Limited # of times Labetalol 2020-0 No 10 mg, Memori a 04-19 Route: l 21:10: IVP, [place] 00 Q5Min, Dosing Weight 70.9, kg, PRN Elevated BP, Start date: 04/19/19 15:10:00 [employer], Duration: 5 doses or times, Stop date: Limited # of times Acetaminoph 2020-0 No 1,000 mg, M emoria en 04-19 Route: PO, l 21:10: Drug form: Yovani 00 TAB, ONCE, Dosing Weight 70.9, kg, PRN Pain Score 1-3, Start date: 04/19/19 15:10:00 [employer] Oxycodone 2020-0 No 5 mg, Memoria Hydrochlori 04-19 Route: PO, l de 5 MG 21:10: Drug form: Herm fabricio Oral Tablet 00 TAB, Q4H, Dosing Weight 70.9, kg, PRN Pain Score 4-6, Start date: 04/19/19 15:10:00 [employer], Duration: 30 day, Stop date: 05/19/19 15:09:00 CDT Hydromorpho 2020-0 No 0.5 mg, Mem oria ne 04-19 Route: l 21:10: IVP, [place] 00 Q5Min, Dosing Weight 70.9, kg, PRN Pain Score 7-10, Start date: 04/19/19 15:10:00 [employer], Duration: 4 doses or times, Stop date: Limited # of times Flumazenil 2020-0 No 0.2 mg, Juan Manuel héctor 2-07 Route: l 21:10: IVP, PRN, Yovani 00 Dosing Weight 70.9, kg, PRN Benzodiaze pine Reversal, Initial dose, Start date: 04/19/19 15:10:00 [employer], Duration: 30 day, Stop date: 05/19/19 16:09:00 CDT Naloxone 2020-0 No 0.4 mg, Memori a 2- Route: l 21:10: IVP, [place] 00 Q2MIN, Dosing Weight 70.9, kg, PRN Narcotic Reversal, Start date: 04/19/19 15:10:00 [employer], Duration: 8 doses or times, Stop date: Limited # of times Ondansetron 2020-0 No 4 mg, Memor ia 2- Route: l 21:10: IVP, ONCE, [place] 00 Dosing Weight 70.9, kg, PRN Nausea & Vomiting, Start date: 04/19/19 15:10:00 [employer] Hydralazine 2020-0 No 10 mg, Juan Manuel héctor 2- Route: l 21:10: IVP, [place] 00 Q20Min, Dosing Weight 70.9, kg, PRN Elevated BP, Start date: 04/19/19 15:10:00 [employer], Duration: 2 doses or times, Stop date: Limited # of times Labetalol 2020-0 No 10 mg, Memori a 2- Route: l 21:10: IVP, [place] 00 Q5Min, Dosing Weight 70.9, kg, PRN Elevated BP, Start date: 04/19/19 15:10:00 [employer] HEL[employer], Duration: 5 doses or times, Stop date: Limited # of times Acetaminoph 2020-0 No 1,000 mg, M emoria en 2- Route: PO, l 21:10: Drug form: Yovani 00 TAB, ONCE, Dosing Weight 70.9, kg, PRN Pain Score 1-3, Start date: 04/19/19 15:10:00 [employer] Oxycodone 2020-0 No 5 mg, Memoria Hydrochlori 2-07 Route: PO, l de 5 MG 21:10: Drug form: Herm fabricio Oral Tablet 00 TAB, Q4H, Dosing Weight 70.9, kg, PRN Pain Score 4-6, Start date: 04/19/19 15:10:00 [employer] HEL[employer], Duration: 30 day, Stop date: 05/19/19 15:09:00 CDT Hydromorpho 2020-0 No 0.5 mg, Mem oria ne 2- Route: l 21:10: IVP, [place] 00 Q5Min, Dosing Weight 70.9, kg, PRN Pain Score 7-10, Start date: 04/19/19 15:10:00 [employer] HEL[employer], Duration: 4 doses or times, Stop date: Limited # of times Flumazenil 2020-0 No 0.2 mg, Juan Manuel héctor 04-19 Route: l 21:10: IVP, PRN, [place] 00 Dosing Weight 70.9, kg, PRN Benzodiaze pine Reversal, Initial dose, Start date: 04/19/19 15:10:00 [employer] HEL[employer], Duration: 30 day, Stop date: 05/19/19 16:09:00 CDT Naloxone 2020-0 No 0.4 mg, Memori a 04-19 Route: l 21:10: IVP, [place] 00 Q2MIN, Dosing Weight 70.9, kg, PRN Narcotic Reversal, Start date: 04/19/19 15:10:00 [employer], Duration: 8 doses or times, Stop date: Limited # of times Ondansetron 2020-0 No 4 mg, Memor ia 04-19 Route: l 21:10: IVP, ONCE, Dosing Weight 70.9, kg, PRN Nausea & Vomiting, Start date: 04/19/19 15:10:00 [employer] ondansetron 2019-0 No Route: IV, Memoria (ANES) - Drug form: l 20:55: INJ, ONCE, Stop date: 04/19/19 14:55:00 [employer] glycopyrrol 2019-0 No Route: IV, Memoria ate (ANES) - Drug form: l 20:55: INJ, ONCE, Stop date: 04/19/19 14:55:00 [employer] neostigmine 2019-0 No Route: IV, Memoria (ANES) - Drug form: l 20:55: INJ, ONCE, Stop date: 04/19/19 14:55:00 [employer] ondansetron 2020-0 No Route: IV, Memoria (ANES) 2- Drug form: l 20:55: INJ, ONCE, Stop date: 04/19/19 14:55:00 [employer] glycopyrrol 2019-0 No Route: IV, Memoria ate (ANES) 04-19 Drug form: l 20:55: INJ, ONCE, Stop date: 04/19/19 14:55:00 [employer] neostigmine 2019-0 No Route: IV, Memoria (ANES) 2- Drug form: l 20:55: INJ, ONCE, Stop date: 04/19/19 14:55:00 [employer] dexamethaso 2019-0 No Route: IV, Memoria ne (ANES) 2- Drug form: l 20:27: INJ, ONCE, Stop date: 04/19/19 14:27:00 [employer] dexamethaso 2020-0 No Route: IV, Memoria ne (ANES) 2- Drug form: l 20:27: INJ, ONCE, Stop date: 04/19/19 14:27:00 [employer] lidocaine 2020-0 No Route: IV, Me moria (ANES) 2- Drug form: l 20:22: INJ, ONCE, Stop date: 04/19/19 14:22:00 [employer] propofol 2020-0 No Route: IV, Mem oria (ANES) 2- Drug form: l 20:22: INJ, ONCE, Stop date: 04/19/19 14:22:00 [employer] rocuronium 2020-0 No Route: IV, M emoria (ANES) 2- Drug form: l 20:22: INJ, ONCE, Stop date: 04/19/19 14:22:00 [employer] fentaNYL 2020-0 No Route: IV, Mem oria (ANES) 2- Drug form: l 20:22: INJ, ONCE, Stop date: 04/19/19 14:22:00 [employer] ePHEDrine 2020-0 No Route: IV, Me moria (ANES) 2- Drug form: l 20:22: INJ, ONCE, Stop date: 04/19/19 14:22:00 [employer] phenylephri 2020-0 No Route: IV, Memoria ne (ANES) 2- Drug form: l 20:22: INJ, ONCE, Stop date: 04/19/19 14:22:00 [employer] lidocaine 2020-0 No Route: IV, Me moria (ANES) 2- Drug form: l 20:22: INJ, ONCE, Stop date: 04/19/19 14:22:00 [employer] propofol 2020-0 No Route: IV, Mem oria (ANES) 2- Drug form: l 20:22: INJ, ONCE, Stop date: 04/19/19 14:22:00 [employer] HEL[employer] rocuronium 2020-0 No Route: IV, M emoria (ANES) 2- Drug form: l 20:22: INJ, ONCE, Stop date: 04/19/19 14:22:00 [employer] HEL[employer] fentaNYL 2020-0 No Route: IV, Mem oria (ANES) 2- Drug form: l 20:22: INJ, ONCE, Stop date: 04/19/19 14:22:00 [employer] HEL[employer] ePHEDrine 2020-0 No Route: IV, Me moria (ANES) 2- Drug form: l 20:22: INJ, ONCE, Stop date: 04/19/19 14:22:00 [employer] phenylephri 2020-0 No Route: IV, Memoria ne (ANES) 2- Drug form: l 20:22: INJ, ONCE, Stop date: 04/19/19 14:22:00 [employer] Sodium 2020-0 No Route: IV, Memor ia Chloride 2-07 Total l 0.9% IV 19:17: Volume: Yovani (ANES) 500 00 500, Start mL date: 04/19/19 13:17:00 [employer] HEL[employer], Stop date: 04/19/19 14:17:00 [employer] Sodium 2020-0 No Route: IV, Memor ia Chloride 2-07 Total l 0.9% IV 19:17: Volume: [place] (ANES) 500 00 500, Start mL date: 04/19/19 13:17:00 [employer], Stop date: 04/19/19 14:17:00 [employer] Home 2020-0 Yes Refill(s) Memoria Medication 2-07 0 l 18:38: [place] 00 gabapentin 2020-0 Yes PO, 0 Memori a 2-07 Refill(s) l 18:38: [place] 00 Home 2020-0 Yes Refill(s) Memoria Medication 2-07 0 l 18:38: [place] 00 gabapentin 2020-0 Yes PO, 0 Memori a 2-07 Refill(s) l 18:38: Y[place] 00 calcitriol 2016-03 Yes .25ug QD Take 0.[address] (ROCALTROL) 2-15 mcg by [facility] - 0.25 MCG 07:04: mouth Medical capsule 06 daily. [place] valsartan 2016-03 Yes 160mg QD Take [address] [facility] (DIOVAN) 2-15 mg by [facility] - 160 MG 07:04: mouth Medical tablet 06 daily. [place] apixaban 2016-03 Yes 5mg Q.5D Take 5 [...] by mouth [facility] - 00:00: daily . [address] Hydromorpho No 0.3 mg, Mem oria [...] héctor ne 4-20 Concentrat l 20:39: ion: Yovani 00 4mg/ml Ondansetron No 4 mg, Memor ia [...] Promethazin No 6.25 mg, Me moria e 20 Route: l 20:39: IVPB, ONCE, Dosing Weight [...] Hydromorpho No 0.5 mg, Mem oria ne -20 0.5 mL, l 20:39: Route: IVP, Drug [...] 30 mg Product Wasted: ___ mg Zofran 2015-0 No 4 mg, Memoria 4-20 Route: l 17:20: IVP, ONCE, Dosing Weight 94.119, kg, Start date: 07/01/15 12:20:00 CDT, Stop date: 07/01/15 12:20:00 CDT Zofran 2015-0 No 4 mg, Memoria 4-20 Route: l 17:20: IVP, ONCE, Dosing Weight 94.119, kg, Start date: 07/01/15 12:20:00 CDT, Stop date: 07/01/15 12:20:00 CDT Sodium 2015- No 500 mL, Memoria Chloride -20 Rate: 25 l 0.154 15:21: ml/hr, Yovani [...] day, Stop date: 07/31/15 10:20:00 CDT Sodium 2016-0 No 500 mL, Memoria Chloride 4-20 Rate: 25 l 0.154 15:21: ml/hr, Yovani MEQ/ML 00 Infuse Injectable over: 20 Solution hr, Route: IV, Dosing Weight 94.119 kg, Total Volume: 500, Start date: 07/01/15 10:21:00 CDT, Duration: 1 day, Stop date: 07/02/15 10:20:00 CDT Calcium 2016-0 No 1,000 mL, Memor ia Chloride 4-20 Rate: 25 l 0.0014 15:21: ml/hr, [place] MEQ/ML / 00 Infuse Potassium over: 40 Chloride hr, Route: 0.004 IV, Dosing MEQ/ML / Weight Sodium 94.119 kg, Chloride Total 0.103 Volume: MEQ/ML / 1,000, Sodium Start Lactate date: 0.028 07/01/15 MEQ/ML 10:21:00 Injectable CDT, Solution Duration: 30 day, Stop date: 07/31/15 10:20:00 CDT Ancef 2016-0 No Notes: Memoria 4-20 Same as: l 12:00: Ancef [place] Vancomycin 2015-0 No 2000 mg: Me moria 4-20 infuse l 12:00: over 2.5 [place] 00 hours MEDICATION WASTE Product Size: 1000 mg Product Wasted: ___ mg Ancef 2015-0 No Notes: Memoria 4-20 Same as: l 12:00: Ancef [place] Vancomycin 2016-0 No 2001 mg: Me moria 4-20 infuse l 12:00: over 2.5 Yovani 00 hours MEDICATION WASTE Product Size: 1000 mg Product Wasted: ___ mg Aspirin 81 2016-0 Yes 81 mg = 1 Me moria MG Enteric 4-19 tab, PO, l Coated 18:20: Daily, # [place] Tablet 00 90 tab, 3 Refill(s) Aspirin 81 2016-0 Yes 81 mg = 1 Me moria MG Enteric 4-19 tab, PO, l Coated 18:20: Daily, # Yovani Tablet 00 90 tab, 3 Refill(s) NovoLOG 2016-0 Yes SUB-Q, Memoria 70/30 4-19 ONCE, 0 l 18:19: Refill(s) Hydralazine 20160 Yes 0 Memori a 4-19 Refill(s) l 18:19: [place] 00 metoprolol 20160 Yes BID, 0 Memor ia tartrate 4-19 Refill(s) l 18:19: [place] 00 Ondansetron 20160 Yes 8 mg = 1 Me moria 8 MG Oral 4-19 tab, PO, l Tablet 18:19: BID, 0 Yovani [Zofran] 00 Refill(s) Furosemide 0 Yes 40 mg = 1 Me moria 40 MG Oral 4-19 tab, PO, l Tablet 18:19: Daily, 0 [place] 00 Refill(s) NovoLOG 2015-0 Yes SUB-Q, Memoria 70/30 4-19 ONCE, 0 l 18:19: Refill(s) Hydralazine 0 Yes 0 Memori a 4-19 Refill(s) l 18:19: [place] metoprolol 2016-0 Yes BID, 0 Memor ia tartrate 4-19 Refill(s) l 18:19: Yovani 00 Ondansetron 2016-0 Yes 8 mg = 1 Me moria 8 MG Oral 4-19 tab, PO, l Tablet 18:19: BID, 0 Yovani [Zofran] 00 Refill(s) Furosemide 0 Yes 40 mg = 1 Me moria 40 MG Oral 4-19 tab, PO, l Tablet 18:19: Daily, 0 [place] 00 Refill(s) Ondansetron 2016-0 Yes 8 mg = 1 Me moria 8 MG 4-06 tab, PO, l Disintegrat 17:47: TID, PRN He rmann ing Tablet 00 Nausea and [Zofran] Vomiting, Dissolve tab under tongue, X 4 day, # 20 tab, 0 Refill(s) Ondansetron Yes 8 mg = 1 Me moria 8 MG 4-06 tab, PO, l Disintegrat 17:47: TID, PRN He rmann ing Tablet 00 Nausea and [Zofran] Vomiting, Dissolve tab under tongue, X 4 day, # 20 tab, 0 Refill(s) Sodium No 1,000 mL, Memori a Chloride 06-16 1,000 l 0.154 16:40: ml/hr, [place] MEQ/ML 00 Infuse Injectable Over: 1 Solution [...] Notes: Memoria 06-16 (Same l 16:40: as:MORPhin [place] 00 e Sulfate) Sodium No 1,000 mL, Memori a Chloride 06-16 1,000 l 0.154 16:40: ml/hr, [place] MEQ/ML 00 Infuse Injectable Over: 1 Solution [...] Memoria 6-19 (Same as: l 20:38: Benadryl) [place] 00 Sodium No 1,000 mL, Memori a Chloride 6-19 1,000 l 0.154 20:38: ml/hr, [place] MEQ/ML 00 Infuse Injectable Over: 1 Solution hr, Route: IV, 1,000, Drug form: INJ, ONCE, Priority: STAT, Dosing Weight 86.364 kg, Start date: 08/29/14 15:38:00, Duration: 1 doses or times, Stop date: 08/29/14 15:38:00 Reglan No Notes: Memoria 6-19 (Same as: l 20:38: Reglan) [place] 00 Benadryl No Notes: Memoria 6-19 (Same as: l 20:38: Benadryl) [place] 00 Sodium No 1,000 mL, Memori a Chloride 6-19 1,000 l 0.154 20:38: ml/hr, [place] MEQ/ML 00 Infuse Injectable Over: 1 Solution hr, Route: IV, 1,000, Drug form: INJ, ONCE, Priority: STAT, Dosing Weight 86.364 kg, Start date: 08/29/14 15:38:00, Duration: 1 doses or times, Stop date: 08/29/14 15:38:00 Reglan 2015-0 No Notes: Memoria - (Same as: l 20:38: Reglan) Y[place]ani 00 Vital Signs Vital Name Observation Time Observation Value Comments Source Body height 2019-07-05 11:48:00 172.7 cm [facility] Body weight 2019-07-05 11:48:00 68.04 kg [facility] BMI 2019-07-05 11:48:00 22.81 kg/m2 [facility] Respitory Rate 2019-04-19 21:57:00 Memori al [place] Systolic (mm Hg) 2019-04-19 21:57:00 Juan Manuel rial [place] Diastolic (mm Hg) 2019-04-19 21:57:00 Mem orial [place] Respitory Rate 2019-04-19 21:45:00 Memori al [place] Systolic (mm Hg) 2019-04-19 21:45:00 Juan Manuel rial [place] Diastolic (mm Hg) 2019-04-19 21:45:00 Mem orial [place] Respitory Rate 2019-04-19 21:30:00 Memori al [place] Systolic (mm Hg) 2019-04-19 21:30:00 Juan Manuel rial [place] Diastolic (mm Hg) 2019-04-19 21:30:00 Mem orial [place] Heart Rate 2019-04-19 18:39:00 [facility] [place] Height 2019-04-19 18:24:00 170.18 cm [facility] [place] Weight 2019-04-19 18:24:00 [facility] [place] BMI Calculated 2019-04-19 18:24:00 Memori al [place] BMI Calculated 2015-08-05 22:10:00 Memori al [place] Height 2015-08-05 22:10:00 172.72 cm [facility] [place] Weight 2015-08-05 22:10:00 [facility] [place] Temperature Oral (F) 2015-08-05 22:10:00 97.7 F [facility] [place] Heart Rate 2015-08-05 22:10:00 [facility] [place] Respitory Rate 2015-08-05 22:10:00 Memori al [place] Systolic (mm Hg) 2015-08-05 22:10:00 Juan Manuel rial [place] Diastolic (mm Hg) 2015-08-05 22:10:00 Mem orial [place] Respitory Rate 2015-07-01 23:00:00 Memori al [place] Systolic (mm Hg) 2015-07-01 23:00:00 Juan Manuel rial [place] Diastolic (mm Hg) 2015-07-01 23:00:00 Mem orial [place] Respitory Rate 2015-07-01 22:45:00 Memori al [place] Systolic (mm Hg) 2015-07-01 22:45:00 Juan Manuel rial [place] Diastolic (mm Hg) 2015-07-01 22:45:00 Mem orial [place] Systolic (mm Hg) 2015-07-01 22:15:00 Juan Manuel rial [place] Diastolic (mm Hg) 2015-07-01 22:15:00 Mem orial [place] Respitory Rate 2015-07-01 22:15:00 Memori al [place] Temperature Oral (F) 2015-07-01 12:08:00 98.2 F [facility] [place] Heart Rate 2015-07-01 12:08:00 [facility] [place] BMI Calculated 2015-06-30 18:01:00 Memori al [place] Height 2015-06-30 18:01:00 170.18 cm [facility] [place] Weight 2015-06-30 18:01:00 [facility] [place] Heart Rate 2015-06-17 18:10:00 [facility] [place] Temperature Oral (F) 2015-06-17 18:10:00 98.0 F [facility] [place] Respitory Rate 2015-06-17 18:10:00 Memori al [place] Systolic (mm Hg) 2015-06-17 18:10:00 Juan Manuel rial [place] Diastolic (mm Hg) 2015-06-17 18:10:00 Mem orial [place] Weight 2015-06-17 16:43:00 [facility] [place] Heart Rate 2015-06-17 16:43:00 [facility] [place] Respitory Rate 2015-06-17 16:43:00 Memori al [place] Systolic (mm Hg) 2015-06-17 16:43:00 Juan Manuel rial [place] Diastolic (mm Hg) 2015-06-17 16:43:00 Mem orial Y[place] BMI Calculated 2015-06-17 16:43:00 Memori al [place] Height 2015-06-17 16:43:00 172.72 cm [facility] [place] Temperature Oral (F) 2015-06-17 16:43:00 98.2 F [facility] [place] Systolic (mm Hg) 2014-08-29 23:51:00 Juan Manuel rial [place] Diastolic (mm Hg) 2014-08-29 23:51:00 Mem orial [place] Temperature Oral (F) 2014-08-29 23:51:00 98.3 F [facility] [place] Heart Rate 2014-08-29 23:51:00 [facility] [place] Respitory Rate 2014-08-29 23:51:00 Memori al [place] Respitory Rate 2014-08-29 22:20:00 Memori al [place] Heart Rate 2014-08-29 22:20:00 [facility] [place] Systolic (mm Hg) 2014-08-29 22:20:00 Juan Manuel rial [place] Diastolic (mm Hg) 2014-08-29 22:20:00 Mem orial [place] Weight 2014-08-29 20:01:00 [facility] [place] BMI Calculated 2014-08-29 20:01:00 Memori al [place] Heart Rate 2014-08-29 20:01:00 [facility] [place] Respitory Rate 2014-08-29 20:01:00 Memori al [place] Systolic (mm Hg) 2014-08-29 20:01:00 Juan Manuel rial Y[place] Diastolic (mm Hg) 2014-08-29 20:01:00 Mem orial [place] Temperature Oral (F) 2014-08-29 20:01:00 98.3 F [facility] [place] Height 2014-08-29 20:01:00 172.72 cm [facility] [place] Procedures Procedure Date / Time Performing Clinician Source Performed SARS-COV2/RT-PCR ([facility] & 2019-10-02 19:28:00 [facility] - REF LABS) [facility] Cholecystectomy 2014-03-13 00:00:00 [facility] Abdominal hysterectomy [facility] CS - [facility] Start End Encounter Admission Attending Care Care Encounter Source Date/Time Date/Time Type Type Clinicians Facility Department ID 2020-06-01 2020-06-01 [facility] [id number] [address] 00:00:00 00:00:00 FLORINDA [address] 2020-06-01 2020-06-01 [facility] [id number] [address] 00:00:00 00:00:00 FLORINDA [address] [facility] 2020-05-27 2020-05-27 Outpatient [facility] [id number] [address] 00:00:00 00:00:00 FLORINDA [address] 2019-04-19 2019-04-19 Outpatient Sheyla Albarado [facility] [id number] 11:35:00 23:59:00 Rin 2019-04-19 2019-04-19 Outpatient Sheyla Albarado [facility] [id number] 11:35:00 23:59:00 Rin 2019-04-19 2019-04-19 Outpatient M[facility] MHH [id number] M[facility]H 11:35:00 11:35:00 2016-05-18 2016-05-18 Outpatient Ryan, MHOIP MHOIP [id number] 10:22:00 23:59:00 Casey M 2016-05-18 2016-05-18 Outpatient Ryan, MHOIP MHOIP [id number] 10:22:00 23:59:00 Casey M 2015-08-05 2015-08-05 Outpatient Sarah, Latia MHPL MHPL [id number] 17:05:00 17:42:00 [facility] 2015-08-05 2015-08-05 Outpatient Sarah, Latia MHPL MHPL [id number] 17:05:00 17:42:00 Alexander 2015-07-01 2015-07-01 Outpatient Kelvin, MHSE MHSE [id number] 08:00:00 18:10:00 Alexandre 02 [facility] 2015-07-01 2015-07-01 Outpatient Kelvin, MHSE MHSE [id number] 08:00:00 18:10:00 Alexandre 02 [facility] 2015-06-17 2015-06-17 Outpatient Hehman, MHSWH MHSWH [id number] 11:33:00 13:32:00 Woody Gan 2015-06-17 2015-06-17 Outpatient Hehman, MHSWH MHSWH [id number] 11:33:00 13:32:00 Woody Gan 2014-08-29 2014-08-29 Outpatient Pulliam, HS HS [id number] 14:56:00 19:32:00 Kizzy Vicky Stock 2014-08-29 2014-08-29 Outpatient Heraclio [facility] [id number] 14:56:00 19:32:00 [facility] Results Test Description Test Time Test Comments Results Result Comments Source SARS-CoV2/RT-PCR ([facility]) 2019-10-03 11:15:00 Test Item Value Reference Range Interpretation Comme nts SARS-COV2/RT-PCR (test code = [place] [address]-9) Negative, See external report for linked test SARS-COV-2 PERFORMING LAB [facility] STEFAN (test code = 51026-3) YEHUDA (test code = YEHUDA) Results are [...] of the Act. Fact Sheet for Healthcare Providers:https://www.[employer] .[employer]/sites/default/files/pro duct/documents/Fact_Sheet_HC _Kpafbqssn_Mfch_QIPM-VyH-4.p df Fact Sheet for Healthcare Patients:https://www.[employer]/sites/default/files/prod uct/documents/Fact_Sheet_Brigette batemanarvee_Jxrp_NKAN-BvZ-0.pdf Performing Laboratory:[facility] [place] [address] Lab Interpretation (test code Abnormal = 62171-9) [facility])2019-10-03 11:15:00 Test Item Value Reference Range Interpretation Comments SARS-COV2/RT-PCR (test Positive Not Detected, Negative, AA code = 5198741) See external report for linked test SARS-COV-2 PERFORMING LAB [facility] STEFAN (test code = 8014148) Results are for the detection of SARS-CoV-2 [...] 564(g) of the Act.Fact Sheet for Healthcare Providers:https://www.[employer]/sites/default/files/product/d ocuments/Bdua_Slpav_IS_Iigzcnihq_Vjli_QJYL-TxC-8.pdfFact Sheet for Healthcare Patients:https://www.[employer]/sites/default/files/product/documents/Fact_Sheet_Patients_Lyra_SARS-CoV -2.pdfPerforming Laboratory:[facility], [place] [id number] 18:35:004.7[facility] [id number] 18:35:004.7[facility]+Lytes+Glu+Ca+Hgb+Hct+[id number] 12:22:00 Test Item Value Reference Range Interpretation [...] 0.7 mmol/L (test code = BGLA) HEMOGLOBIN [id number] 08:30:00 Test Item Value Reference Range Interpretation Comments HEMOGLOBIN A1C ([facility]) (test code = 5.3 % 4.3-6.1 368) POCT-GLUCOSE [id number] 07:28:00 Test Item Value Reference Range Interpretation Comments POC-GLUCOSE METER 78 mg/dL 70-110 TESTED AT [place] [address] ([facility]) (test code = TANISHA Hutson [facility] [address] 1538) POCT-GLUCOSE [id number] 20:51:00 Test Item Value Reference Range Interpretation Comments POC-GLUCOSE METER 49 mg/dL 70-110 L Will Repea t Test/TESTED ([facility]) (test code = AT [address] 1538) [facility] 7703 0 POCT-GLUCOSE [id number] 18:20:00 Test Item Value Reference Range Interpretation Comments POC-GLUCOSE METER 188 mg/dL 70-110 H TESTED AT [place] [address] ([facility]) (test code = [facility] Caryl [facility] 1538) [address] T4, [id number] 17:50:00 Test Item Value Reference Range Interpretation Comments FREE T4 ([facility]) (test code = 655) 1.31 ng/dL 0.70-1.48 SEDIMENTATION [id number] 17:38:00 Test Item Value Reference Range Interpretation Comments SEDIMENTATION RATE, ERYTHROCYTE 103 mm/HR 0-20 H ([facility]) (test code = 766) TSH/FREE T4 IF [id number] 16:25:00 Test Item Value Reference Range Interpretation Comments THYROID STIMULATING HORMONE 0.30 uIU/mL 0.35-4.94 L ([facility]) (test code = 772) CREATINE KINASE (CK), TOTAL AND [id number] 16:08:00 Test Item Value Reference Range Interpretation Comments CREATINE KINASE TOTAL (BEAKER) 111 U/L 29-200 (test code = 380) CREATINE KINASE-MB (BEAKER) (test 4.8 ng/mL 0.0-6.6 code = 750) CREATINE KINASE-MB INDEX (BEAKER) 4.3 % (test code = 395) CK-MB Reference Range:<6.7 Normal6.7-10.0 Borderline>10.0 AbnormalTROPONIN [id number] 16:08:00 Test Item Value Reference Range Interpretation [...] 395) CK-MB Reference Range:<6.7 Normal6.7-10.0 Borderline>10.0 AbnormalTROPONIN [id number] 16:07:00 Test Item Value Reference Range Interpretation [...] failure, acidosis, acute neurological disease, and persistent tachyarrhythmia.[id number] 15:59:00 Test Item Value Reference Range Interpretation Comments PHOSPHORUS (BEAKER) (test code = 5.1 mg/dL 2.3-4.7 H 604) LIPID [id number] 15:59:00 Test Item Value Reference Range Interpretation [...] 130-159 High 160-189 Very High >=190HEPATIC FUNCTION [id number] 15:59:00 Test Item Value Reference Range Interpretation [...] code = 10 U/L 6-55 347) C-REACTIVE [id number] 15:59:00 Test Item Value Reference Range Interpretation Comments C-REACTIVE PROTEIN (BEAKER) (test 0.52 mg/dL 0.00-0.50 H code = 676) BASIC METABOLIC [id number] 15:59:00 Test Item Value Reference Range Interpretation [...] PATIEN TS. CBC W/PLT COUNT & AUTO [id number] 15:16:00 Test Item Value Reference Range Interpretation [...] PERCENT (BEAKER) (test code = 2801) PROTHROMBIN TIME/[id number] 15:08:00 Test Item Value Reference Range Interpretation Comments PROTIME (BEAKER) (test code = 16.0 seconds 11.7-14.7 H 759) INR (BEAKER) (test code = 370) 1.3 <=5.9 RECOMMENDED COUMADIN/WARFARIN INR THERAPY RANGESSTANDARD DOSE: 2.0 - 3.0 Includes: PROPHYLAXIS forvenous thrombosis, systemic embolization; TREATMENT for venous thrombosis and/or pulmonary embolus.HIGH RISK: Target INR is 2.5-3.5 for patients with mechanical heart valves.POCT-GLUCOSE [id number] 12:04:00 Test Item Value Reference Range Interpretation Comments POC-GLUCOSE METER 187 mg/dL 70-110 H TESTED AT [facility] 6720 ([facility]) (test code = [facility] 1538) [address] POCT-GLUCOSE [id number] 09:11:00 Test Item Value Reference Range Interpretation Comments POC-GLUCOSE METER 83 mg/dL 70-110 TESTED AT [facility] 6720 ([facility]) (test code = [facility] [address] 1538) MR, BRAIN, WITHOUT [id number] 00:47:00PT started dialysis 07/12/2015Reason for exam:->Sudden onset [...] MDReport Verified Date/Time: 02/23/2017 00:47:16 Reading Location: [address] Body Reading Room AFB CULTURE + [id number] 07:45:00 Test Item Value Reference Range Interpretation Comments CULTURE (BEAKER) (test No acid-fast bacilli code = 1095) isolated in 42 days AFB SMEAR (BEAKER) No acid fast bacilli (test code = 994) seen AFB CULTURE + [id number] 07:45:00 Test Item Value Reference Range Interpretation Comments CULTURE (BEAKER) (test No acid-fast bacilli code = 1095) isolated in 42 days AFB SMEAR (BEAKER) No acid fast bacilli (test code = 994) seen FUNGUS CULTURE + [id number] 18:17:00 Test Item Value Reference Range Interpretation Comments CULTURE (BEAKER) (test No fungus isolated in code = 1095) 28 days FUNGUS SMEAR (BEAKER) No fungi seen (test code = 1406) FUNGUS CULTURE + [id number] 18:17:00 Test Item Value Reference Range Interpretation Comments CULTURE (BEAKER) (test No fungus isolated in code = 1095) 28 days FUNGUS SMEAR (BEAKER) No fungi seen (test code = 1406) AFB CULTURE + [id number] 14:52:00 Test Item Value Reference Range Interpretation Comments CULTURE (BEAKER) (test No acid-fast bacilli code = 1095) isolated in 42 days AFB SMEAR (BEAKER) No acid fast bacilli (test code = 994) seen AB SPECIFICITY CLASS [id number] 10:13:00 Test Item Value Reference Range Interpretation Comments DATE OF SERUM (BEAKER) (test code = 361092 4014) SERUM # (BEAKER) (test code = 2290) 205791 AB SPECIFICITY CLASS I (BEAKER) (test code = 2429) AB SPECIFICITY CLASS [id number] 10:13:00 Test Item Value Reference Range Interpretation Comments DATE OF SERUM (BEAKER) 609412 (test code = 2289) SERUM # (BEAKER) (test 444172 code = 2290) AB SPECIFICITY CLASS II See Scanned Report (BEAKER) (test code = 2430) HERPES VIRUS ANTIBODY, [id number] 14:21:00 Test Item Value Reference Range Interpretation Comments HERPES VIRUS IGM Negative HSV 1 IGM = NEGHSV 2 (BEAKER) (test code = IGM = NEG 1808) TOXOPLASMA GONDII ANTIBODY, [id number] 14:21:00 Test Item Value Reference Range Interpretation Comments TOXOPLASMA IGM ANTIBODY (BEAKER) Negative (test code = 742) FLOW PRA CLASS I AND [id number] 15:15:00 Test Item Value Reference Range Interpretation Comments DATE OF SERUM (BEAKER) 187881 (test code = 2289) SERUM # (BEAKER) (test 454350 code = 2290) FLOW PRA CLASS I AND II See Scanned Report (test code = 2421) VARICELLA ZOSTER ANTIBODY, [id number] 14:59:00 Test Item Value Reference Range Interpretation Comments VARICELLA ZOSTER IGG (AL) (BEAKER) 5.8 Al (test code = 3197) VARICELLA ZOSTER RESULT INTERPRETATIONS: <=0.8 Al Nonreactive: Presumed non-immune to VZV 0.9-1.0 Al Equivocal >=1.1 Al Reactive: Presumed immune to VZVANURADHA [id number] 14:16:00PT started dialysis 07/12/2015Addendum BeginsREPORT STATUS:A The original report incorrectly states that the procedure was performed with intravenous contrast. In fact, the procedure was performed without intravenous contrast. Signed: Joann Diaz MDReport Verified Date/Time: 01/13/2017 14:16:42 ReadingLocation: [facility] B1 C013X Ortho Consult Reading RoomAddendum EndsFINAL [...] MDReport Verified Date/Time: 01/06/2017 23:49:19 Reading Location: [facility] S[address] Reading Room CT, CHEST, WITHOUT [id number] 14:16:00PT started dialysis 07/12/2015Addendum BeginsREPORT STATUS:A The original report incorrectly states that the procedure was performed with intravenous contrast. In fact, the procedure was performed without intravenous contrast. Signed: Joann Diaz MDReport Verified Date/Time: 01/13/2017 14:16:42 ReadingLocation: [facility] C013X Ortho Consult Reading RoomAddendum EndsFINAL REPORT [...] MDReport Verified Date/Time: 01/06/2017 23:49:19 Reading Location: [facility] B1 [id number] Reading Room [facility] METABOLIC [id number] 14:06:00 Test Item Value Reference Range Interpretation [...] S NOT APPLICABLE FOR DIALYSIS PATIEN TS. [id number] 14:04:00 Test Item Value Reference Range Interpretation Comments MAGNESIUM (BEAKER) (test code = 1.7 mg/dL 1.6-2.6 627) PROTHROMBIN TIME/[id number] 13:52:00 Test Item Value Reference Range Interpretation [...] 0-0 (BEAKER) (test code = 413) POCT-GLUCOSE [id number] 07:33:00 Test Item Value Reference Range Interpretation Comments POC-GLUCOSE METER 82 mg/dL 70-110 TESTED AT [place] [address] ([facility]) (test code = TANISHA Hutson [facility] [address] 1538) POCT-GLUCOSE [id number] 22:10:00 Test Item Value Reference Range Interpretation Comments POC-GLUCOSE METER 118 mg/dL 70-110 H TESTED AT [place] [address] ([facility]) (test code = TANISHA Hutson [facility] 1538) [address] POCT-GLUCOSE [id number] 16:58:00 Test Item Value Reference Range Interpretation Comments POC-GLUCOSE METER 102 mg/dL 70-110 TESTED AT [place] [address] ([facility]) (test code = [facility] Caryl [facility] 1538) [address] POCT-GLUCOSE [id number] 07:43:00 Test Item Value Reference Range Interpretation Comments POC-GLUCOSE METER 93 mg/dL 70-110 TESTED AT [place] [address] ([facility]) (test code = [facility] Caryl [facility] [address] 1538) POCT-GLUCOSE [id number] 21:58:00 Test Item Value Reference Range Interpretation Comments POC-GLUCOSE METER 130 mg/dL 70-110 H TESTED AT [place] [address] ([facility]) (test code = [facility] Caryl [facility] 1538) [address] POCT-GLUCOSE [id number] 17:59:00 Test Item Value Reference Range Interpretation Comments POC-GLUCOSE METER 144 mg/dL 70-110 H TESTED AT [place] [address] ([facility]) (test code = [facility] 1538) [address] CYTOMEGALOVIRUS ANTIBODY, [id number] 15:45:00 Test Item Value Reference Range Interpretation Comments CYTOMEGALOVIRUS IGG ANTIBODY Negative ([facility]) (test code = 790) CYTOMEGALOVIRUS ANTIBODY, [id number] 15:45:00 Test Item Value Reference Range Interpretation Comments CYTOMEGALOVIRUS IGM ANTIBODY Negative ([facility]) (test code = 816) HERPES VIRUS ANTIBODY, [id number] 15:45:00 Test Item Value Reference Range Interpretation Comments HERPES VIRUS IGG Positive HSV 1 IGG = POSHSV 2 ([facility]) (test code = IGG = POS 1807) EBV-VCA ANTIBODY, [id number] 15:45:00 Test Item Value Reference Range Interpretation Comments GIO-NICK VCA IGG (BEAKER) (test Positive code = 983) EBV-VCA ANTIBODY, [id number] 15:45:00 Test Item Value Reference Range Interpretation Comments GIO-NICK VCA IGM (BEAKER) (test Negative code = 984) TOXOPLASMA GONDII ANTIBODY, [id number] 15:45:00 Test Item Value Reference Range Interpretation Comments TOXOPLASMA GONDII IGG (BEAKER) (test Negative code = 419) POCT-GLUCOSE [id number] 14:27:00 Test Item Value Reference Range Interpretation Comments POC-GLUCOSE METER 108 mg/dL 70-110 TESTED AT [facility] 6720 (BEAKER) (test code = TANIS[place] 1538) [address] IMMUNOFIXATION ELECTROPHORESIS (YOANNA)2017-01-11 13:52:00 Test Item Value [...] to presence of fibrinogen in the sample. [id number] Pat Pinzon, ([facility]) (test code = (electronic 8637) signature) Do not collect, specimen already in lab.BASIC METABOLIC [id number] 09:44:00 Test Item Value Reference Range Interpretation [...] S NOT APPLICABLE FOR DIALYSIS PATIEN TS. [id number] 09:20:00 Test Item Value Reference Range Interpretation Comments MAGNESIUM (BEARNAV) (test code = 1.8 mg/dL 1.6-2.6 627) POCT-GLUCOSE [id number] 09:18:00 Test Item Value Reference Range Interpretation Comments POC-GLUCOSE METER 100 mg/dL 70-110 TESTED AT [place] [address] ([facility]) (test code = [facility] 1538) [address] PROTHROMBIN TIME/[id number] 08:51:00 Test Item Value Reference Range Interpretation Comments PROTIME (BEARNAV) (test code = 15.1 seconds 11.7-14.7 H 759) INR (BEARNAV) (test code = 370) 1.2 <=5.9 RECOMMENDED COUMADIN/WARFARIN INR THERAPY RANGESSTANDARD DOSE: 2.0 - 3.0 Includes: PROPHYLAXIS forvenous thrombosis, systemic embolization; TREATMENT for venous thrombosis and/or pulmonary embolus.HIGH RISK: Target INR is 2.5-3.5 for patients with mechanical heart valves.While on warfarin.HGB/HCT (H&H) - STAT [id number] 08:44:00 Test Item Value Reference Range Interpretation Comments HEMOGLOBIN (BEAKER) (test code = 8.0 g/dL 12.0-15.0 L 410) HEMATOCRIT (MARYANNE) (test code = 24.0 % 36.0-45.0 L 411) POCT-GLUCOSE [id number] 23:05:00 Test Item Value Reference Range Interpretation Comments POC-GLUCOSE METER 108 mg/dL 70-110 TESTED AT [place] [address] ([facility]) (test code = [facility] [place] 1538) [address] POCT-GLUCOSE [id number] 17:36:00 Test Item Value Reference Range Interpretation Comments POC-GLUCOSE METER 133 mg/dL 70-110 H TESTED AT [place] [address] ([facility]) (test code = [facility] Caryl [facility] 1538) [address] POCT-GLUCOSE [id number] 12:31:00 Test Item Value Reference Range Interpretation Comments POC-GLUCOSE METER 115 mg/dL 70-110 H TESTED AT [place] [address] ([facility]) (test code = [facility] Caryl [facility] 1538) [address] FUNGUS CULTURE + [id number] 12:30:00 Test Item Value Reference Range Interpretation Comments CULTURE ([facility]) (test No fungus isolated in code = 1095) 28 days FUNGUS SMEAR ([facility]) No fungi seen (test code = 1406) POCT-GLUCOSE [id number] 08:30:00 Test Item Value Reference Range Interpretation Comments POC-GLUCOSE METER 99 mg/dL 70-110 TESTED AT [place] [address] ([facility]) (test code = [facility] Caryl [facility] [address] 1538) POCT-GLUCOSE [id number] 00:16:00 Test Item Value Reference Range Interpretation Comments POC-GLUCOSE METER 106 mg/dL 70-110 TESTED AT [place] [address] ([facility]) (test code = [facility] 1538) [address] POCT-GLUCOSE [id number] 22:21:00 Test Item Value Reference Range Interpretation Comments POC-GLUCOSE METER 88 mg/dL 70-110 TESTED AT [place] [address] ([facility]) (test code = [facility] [address] 1538) POCT-GLUCOSE [id number] 14:36:00 Test Item Value Reference Range Interpretation Comments POC-GLUCOSE METER 119 mg/dL 70-110 H TESTED AT [place] [address] ([facility]) (test code = [facility] 1538) [address] PROTEIN ELECTROPHORESIS, [id number] 13:56:00 Test Item Value Reference Range Interpretation Comments ALBUMIN FRACTION 2.0 g/dL 3.5-5.5 L ([facility]) (test code = 405) ALPHA 1 FRACTION [...] monoclonal gammopathy. Refer to serum immunofixation electrophoresis. [id number] Anne Yen MD (BEAKER) (test code (electronic signature) = 2616) PROTEIN TOTAL SERUM, 5.7 gm/dL 6.0-8.3 L SPEP (BEAKER) (test code = 3710) Do not collect, specimen already in lab.POTASSIUM-STAT [id number] 10:33:00 Test Item Value Reference Range Interpretation Comments POTASSIUM (BEAKER) (test code = 4.9 meq/L 3.6-5.5 379) GLUCOSE-STAT [id number] 10:33:00 Test Item Value Reference Range Interpretation Comments GLUCOSE RANDOM (BEAKER) (test code 129 mg/dL 70-110 H = 652) HGB/HCT (H&H) - STAT [id number] 10:33:00 Test Item Value Reference Range Interpretation Comments HEMOGLOBIN (BEAKER) (test code = 12.3 g/dL 12.0-15.0 410) HEMATOCRIT (BEAKER) (test code = 36.0 % 36.0-45.0 411) HGB/HCT (H&H) - STAT [id number] 07:59:00 Test Item Value Reference Range Interpretation Comments HEMOGLOBIN (BEAKER) (test code = 8.5 g/dL 12.0-15.0 L 410) HEMATOCRIT (BEAKER) (test code = 25.0 % 36.0-45.0 L 411) BASIC METABOLIC [id number] 07:16:00 Test Item Value Reference Range Interpretation [...] S NOT APPLICABLE FOR DIALYSIS PATIEN TS. [id number] 07:10:00 Test Item Value Reference Range Interpretation Comments MAGNESIUM (BEAKER) (test code = 2.0 mg/dL 1.6-2.6 627) POCT-GLUCOSE [id number] 06:47:00 Test Item Value Reference Range Interpretation Comments POC-GLUCOSE METER 113 mg/dL 70-110 H TESTED AT [place] [address] ([facility]) (test code = TANISHA Hutson [facility] 1538) [address] [id number] 02:25:00 Test Item Value Reference Range Interpretation Comments PARTIAL THROMBOPLASTIN TIME 67.7 seconds 22.5-36.0 H ([facility]) (test code = 760) POCT-GLUCOSE [id number] 18:18:00 Test Item Value Reference Range Interpretation Comments POC-GLUCOSE METER 138 mg/dL 70-110 H TESTED AT [place] [address] ([facility]) (test code = TANISHA Hutson [facility] 1538) [address] [id number] 17:24:00 Test Item Value Reference Range Interpretation [...] 2.5-3.5 for patients with mechanical heart valves.ANAEROBIC [id number] 14:23:00 Test Item Value Reference Range Interpretation Comments CULTURE (BEAKER) (test No anaerobes isolated code = 1095) ANAEROBIC [id number] 14:23:00 Test Item Value Reference Range Interpretation Comments CULTURE (BEAKER) (test No anaerobes isolated code = 1095) POCT-GLUCOSE [id number] 12:45:00 Test Item Value Reference Range Interpretation Comments POC-GLUCOSE METER 126 mg/dL 70-110 H TESTED AT [facility] 6720 (BEAKER) (test code = T[place] 1538) [address] SURGICALLY OBTAINED CULTURE + GRAM [id number] 11:41:00 Test Item Value Reference Range Interpretation [...] organisms seen RESULT (BEAKER) (test code = 685140) SURGICALLY OBTAINED CULTURE + GRAM [id number] 11:38:00 Test Item Value Reference Interpretation Comments [...] No organisms (BEAKER) (test code = seen 600503) [id number] 10:08:00 Test Item Value Reference Range Interpretation [...] 2.5-3.5 for patients with mechanical heart valves.POCT-GLUCOSE [id number] 08:24:00 Test Item Value Reference Range Interpretation Comments POC-GLUCOSE METER 97 mg/dL 70-110 TESTED AT [facility] 6720 (BEAKER) (test code = [place] [address] 1538) [id number] 07:39:00 Test Item Value Reference Range Interpretation Comments PARTIAL THROMBOPLASTIN TIME 192.0 seconds 22.5-36.0 HH (BEAKER) (test code = 760) [id number] 07:37:00 Test Item Value Reference Range Interpretation Comments MAGNESIUM (BEAKER) (test code = 1.7 mg/dL 1.6-2.6 627) BASIC METABOLIC [id number] 07:37:00 Test Item Value Reference Range Interpretation [...] S NOT APPLICABLE FOR DIALYSIS PATIEN TS. [id number] 23:25:00 Test Item Value Reference Range Interpretation Comments PARTIAL THROMBOPLASTIN TIME 97.8 seconds 22.5-36.0 H ([facility]) (test code = 760) POCT-GLUCOSE [id number] 22:52:00 Test Item Value Reference Range Interpretation Comments POC-GLUCOSE METER 98 mg/dL 70-110 TESTED AT [place] [address] ([facility]) (test code = [facility] [address] 1538) POCT-GLUCOSE [id number] 17:43:00 Test Item Value Reference Range Interpretation Comments POC-GLUCOSE METER 86 mg/dL 70-110 TESTED AT [place] [address] ([facility]) (test code = [facility] [address] 1538) [id number] 15:59:00 Test Item Value Reference Range Interpretation Comments PARTIAL THROMBOPLASTIN TIME 62.8 seconds 22.5-36.0 H ([facility]) (test code = 760) POCT-GLUCOSE [id number] 14:50:00 Test Item Value Reference Range Interpretation Comments POC-GLUCOSE METER 115 mg/dL 70-110 H TESTED AT [place] [address] ([facility]) (test code = [facility] 1538) [address] [id number] 14:00:00 Test Item Value Reference Range Interpretation Comments PARTIAL THROMBOPLASTIN TIME 113.6 seconds 22.5-36.0 H ([facility]) (test code = 760) VANCOMYCIN LEVEL, [id number] 13:10:00 Test Item Value Reference Range Interpretation Comments VANCOMYCIN RANDOM ([facility]) (test 33.9 ug/mL code = 523) Reference Range: No NormalsTROPONIN [id number] 12:52:00 Test Item Value Reference Range Interpretation Comments TROPONIN I ([facility]) (test code = 0.09 ng/mL 0.00-0.03 [...] acidosis, acute neurological disease, and persistent tachyarrhythmia.POCT-GLUCOSE [id number] 12:19:00 Test Item Value Reference Range Interpretation Comments POC-GLUCOSE METER 87 mg/dL 70-110 TESTED AT [facility] [address] ([facility]) (test code = [place] [address] 1538) POCT-GLUCOSE [id number] 08:36:00 Test Item Value Reference Range Interpretation Comments POC-GLUCOSE METER 62 mg/dL 70-110 L Notified R Gio IGLESISA/TESTED AT ([facility]) (test code = [facility] [address]) [place] [address] ANTI-NUCLEAR ANTIBODY ([facility])2017-01-07 06:33:00 Test Item Value Reference Range Interpretation Comments ANTI-NUCLEAR ANTIBODY ([place]) ([facility]) Positive Negative A (test code = 418) MILTON TITER AND [id number] 06:33:00 Test Item Value Reference Range Interpretation Comments MILTON TITER ([facility]) (test code = 1541) :640 [place] PATTERN ([facility]) (test code = SSA/RO 1781) TROPONIN [id number] 03:35:00 Test Item Value Reference Range Interpretation Comments TROPONIN I (AKER) (test code = 0.10 ng/mL 0.00-0.03 H [...] acute neurological disease, and persistent tachyarrhythmia.BASIC METABOLIC [id number] 03:28:00 Test Item Value Reference Range Interpretation [...] S NOT APPLICABLE FOR DIALYSIS PATIEN TS. [id number] 03:27:00 Test Item Value Reference Range Interpretation Comments MAGNESIUM (BEAKER) (test code = 1.9 mg/dL 1.6-2.6 627) [id number] 03:24:00 Test Item Value Reference Range Interpretation Comments PARTIAL THROMBOPLASTIN TIME 111.9 seconds 22.5-36.0 H (BEAKER) (test code = 760) [id number] 00:18:00 Test Item Value Reference Range Interpretation Comments RPR SCREEN (BEAKER) (test code = Nonreactive Nonreactive 420) BLOOD [id number] 00:00:00 Test Item Value Reference Range Interpretation Comments CULTURE (BEAKER) (test No growth in 5 days code = 1095) BLOOD [id number] 00:00:00 Test Item Value Reference Range Interpretation Comments CULTURE (BEAKER) (test No growth in 5 days code = 1095) CT, BRAIN, WITHOUT [id number] 23:31:00PT started dialysis 07/12/2015 FINAL REPORT Clinical [...] 23:31:20 Reading Location: [facility] B1 [id number] Ortho Consult Reading Room POCT-GLUCOSE [id number] 22:02:00 Test Item Value Reference Range Interpretation Comments POC-GLUCOSE METER 99 mg/dL 70-110 TESTED AT [place] [address] ([facility]) (test code = [facility] [address] 1538) [id number] 18:44:00 Test Item Value Reference Range Interpretation Comments PARTIAL THROMBOPLASTIN TIME 94.9 seconds 22.5-36.0 H ([facility]) (test code = 760) HEPATITIS A ANTIBODY, [id number] 18:03:00 Test Item Value Reference Range Interpretation Comments HEPATITIS A IGG ANTIBODY ([facility]) Reactive Nonreactive A (test code = 2797) HIV-1 ANTIGEN WITH HIV-1/2 [id number] 17:58:00 Test Item Value Reference Range Interpretation Comments HIV-1 ANTIGEN WITH HIV 1\\T\\2 Nonreactive Nonreactive ANTIBODY (2) ([facility]) (test code = 2586) POCT-GLUCOSE [id number] 17:55:00 Test Item Value Reference Range Interpretation Comments POC-GLUCOSE METER 89 mg/dL 70-110 TESTED AT [place] [address] ([facility]) (test code = [facility] [address] 1538) ANG, TUNNELED DIALYSIS CATH [id number] 17:45:00PT started dialysis 07/12/2015Reason for exam:->needs half-way HD access, please d/c bradley after PC [...] Physician intra- service time was 20 minutes. Commercial Counsel: Richard. Yard Specialist: Rolf. Approach: Right internal jugular vein Estimated [...] needle into the right atrium. A 4 Ghanaian micropuncture sheath was placed. A subcu taneous tunnel was created in the right anterior chest wall by blunt dissection. A 19 cm 15.5 Ghanaian Duraflow 2 catheter was brought through the [...] guidance and conscious sedation. Signed: Jerrod Ramírez Verified Date/Time: 01/06/2017 17:45:51 Reading Location: [facility] [id number] Ultrasound Reading Room [id number] 17:37:00 Test Item Value Reference Range Interpretation Comments PARTIAL THROMBOPLASTIN TIME > seconds 22.5-36.0 HH ([facility]) (test code = 760) U/S, RENAL, [id number] 17:29:00PT started dialysis 07/12/2015Reason for exam:->heart transplant [...] seen in medical renal disease. Signed: Jerrod Ramírezeport Verified Date/Time: 01/06/2017 17:29:12 Reading Location: [place] [id number] Ultrasound Reading Room TROPONIN [id number] 17:04:00 Test Item Value Reference Range Interpretation [...] failure, acidosis, acute neurological disease, and persistent tachyarrhythmia.[id number] 16:54:00 Test Item Value Reference Range Interpretation Comments FERRITIN (BEAKER) (test code = 361) 216 ng/mL 5-275 VITAMIN D, 32-[id number] 16:48:00 Test Item Value Reference Range Interpretation Comments VITAMIN D 25-OH (BEAKER) (test code 6.4 ng/mL 6.6-49.9 L = 2764) Effective 12/21/2016: Reference Range ChangeNew: 6.6-49.9 ng/mL Previous: 13.0-47.8 ng/mLRecommended Vitamin D Target Range: 30.0-40.0 ng/mLT4, FREE 2017-01-06 16:43:00 Test Item Value Reference Range Interpretation Comments FREE T4 (BEAKER) (test code = 655) 1.56 ng/dL 0.70-1.48 H [id number] 16:43:00 Test Item Value Reference Range Interpretation Comments THYROID STIMULATING HORMONE 0.98 uIU/mL 0.35-4.94 (BEAKER) (test code = 772) [id number] 16:22:00 Test Item Value Reference Range Interpretation Comments TRANSFERRIN (BEAKER) (test code = 122 mg/dL 174-382 L 541) [id number] 16:13:00 Test Item Value Reference Range Interpretation Comments PREALBUMIN (BEAKER) (test code = 14 mg/dL 14-45 586) IRON, [id number] 16:13:00 Test Item Value Reference Range Interpretation Comments IRON (BEAKER) (test code = 547) 23 ug/dL 40-160 L TROPONIN [id number] 15:31:00 Test Item Value Reference Range Interpretation [...] failure, acidosis, acute neurological disease, and persistent tachyarrhythmia.[id number] 15:30:00 Test Item Value Reference Range Interpretation Comments CREATININE (BEAKER) 6.49 mg/dL 0.57-1.25 H (test code = 358) EGFR (BEAKER) (test 8 mL/min/1.73 ESTIMAT ED GFR IS code = 1092) sq m NOT ACCURATE CREATININE CLEARANCE IN PREDICTING GLOMERULAR FILTRATION RATE . ESTIMATED GFR I S NOT APPLICABLE FOR DIALYSIS PATIEN TS. URIC [id number] 15:25:00 Test Item Value Reference Range Interpretation Comments URIC ACID (BEAKER) (test code = 3.3 mg/dL 2.6-7.2 773) LIPID [id number] 15:25:00 Test Item Value Reference Range Interpretation [...] 100-129 Borderline 130-159 High 160-189 Very High >=[id number] 15:25:00 Test Item Value Reference Range Interpretation Comments AMYLASE (BEAKER) (test code = 349) 60 U/L 25-125 GAMMA GLUTAMYL TRANSFERASE (GGT)2017-01-06 15:25:00 Test Item Value Reference Range Interpretation Comments GAMMA GLUTAMYL TRANSFERASE (BEAKER) 15 U/L 9-64 (test code = 364) [id number] 15:25:00 Test Item Value Reference Range Interpretation Comments LIPASE (BEAKER) (test code = 749) 46 U/L 8-78 RETICULOCYTE [id number] 15:07:00 Test Item Value Reference Range Interpretation Comments RETICULOCYTE COUNT PCT (BEAKER) (test 1.2 % 0.5-1.7 code = 575) POCT-GLUCOSE [id number] 09:33:00 Test Item Value Reference Range Interpretation Comments POC-GLUCOSE METER 103 mg/dL 70-110 TESTED AT [facility] 67[address] [facility] (test code = T[place]ISHA [place] 1538) [address] POCT-GLUCOSE [id number] 06:37:00 Test Item Value Reference Range Interpretation Comments POC-GLUCOSE METER 108 mg/dL 70-110 TESTED AT [facility] 6720 (BEAKER) (test code = TANISHA Hutson [place] 1538) [address] VANCOMYCIN LEVEL, [id number] 04:30:00 Test Item Value Reference Range Interpretation Comments VANCOMYCIN RANDOM (BEAKER) (test 37.6 ug/mL code = 523) Reference Range: No NormalsTROPONIN [id number] 04:19:00 Test Item Value Reference Range Interpretation [...] acute neurological disease, and persistent tachyarrhythmia.BASIC METABOLIC [id number] 04:12:00 Test Item Value Reference Range Interpretation [...] S NOT APPLICABLE FOR DIALYSIS PATIEN TS. [id number] 04:11:00 Test Item Value Reference Range Interpretation Comments MAGNESIUM (BEAKER) (test code = 1.7 mg/dL 1.6-2.6 627) [id number] 03:57:00 Test Item Value Reference Range Interpretation [...] 0-0 (BEAKER) (test code = 413) TROPONIN [id number] 00:42:00 Test Item Value Reference Range Interpretation [...] acidosis, acute neurological disease, and persistent tachyarrhythmia.POCT-GLUCOSE [id number] 00:27:00 Test Item Value Reference Range Interpretation Comments POC-GLUCOSE METER 97 mg/dL 70-110 TESTED AT [facility] 67[address] ([facility]) (test code = [place] [address] 1538) [id number] 00:23:00 Test Item Value Reference Range Interpretation Comments PARTIAL THROMBOPLASTIN TIME 34.2 seconds 22.5-36.0 (BEAKER) (test code = 760) [id number] 17:16:00 Test Item Value Reference Range Interpretation Comments PARTIAL THROMBOPLASTIN TIME 58.7 seconds 22.5-36.0 H (BEAKER) (test code = 760) TISSUE [id number] 16:16:00Surgical Pathology Report Case: [id number] Authorizing Provider: Fabi Parekh MD Collected: 01/04/2017 1055 Ordering Location: [facility] Received: 01/04/2017 1314 PERIOPERATIVE SERVICES Pathologist: Judit Medel MD Specimen: Hernia, Hernia Sac HERNIA SAC, ABDOMINAL, INCISIONAL HERNIA, REPAIR: - FIBROADIPOSE TISSUE AND REACTIVE CHANGS WITH FOREIGN BODY GIANT CELLS, CONSISTENT WITH INCISIONAL HERNIA SAC Signing Pathologist Direct Phone Line: [phone] signed by Judit Medel MD on 01/05/2017 at 4:16 [id number]-wabty renal disease, incisional hernia sacHernia sacReceived fresh labeled "hernia", description "hernia sac" is an 8.3 x 7.3 x 1.0 cm, dark-red to corral-white, irregular, rubbery, wrinkled portion of fibromembranoussoft tissue. Sectioning reveals no discrete masses. Supervisor Asbestos Removal sections are submitted in cassette A1. DB/ew Performed.APTT 2017-01-05 14:43:00 Test Item Value Reference Range Interpretation Comments PARTIAL THROMBOPLASTIN TIME 162.1 seconds 22.5-36.0 HH ([facility]) (test code = 760) POCT-GLUCOSE [id number] 13:01:00 Test Item Value Reference Range Interpretation Comments POC-GLUCOSE METER 88 mg/dL 70-110 TESTED AT [place] [address] ([facility]) (test code = TANISHA Hutson [facility] [address] 1538) TROPONIN [id number] 12:59:00 Test Item Value Reference Range Interpretation Comments TROPONIN I ([facility]) (test code = 0.13 ng/mL 0.00-0.03 H [...] acidosis, acute neurological disease, and persistent tachyarrhythmia.SPIN/CONCENTRATION [id number] 12:45:00 Test Item Value Reference Range Interpretation Comments CONCENTRATION CHARGED ([facility]) (test Done code = 2657) POCT-GLUCOSE [id number] 09:10:00 Test Item Value Reference Range Interpretation Comments POC-GLUCOSE METER 102 mg/dL 70-110 TESTED AT [place] [address] ([facility]) (test code = [facility] Caryl [facility] 1538) [address] CBC W/PLT COUNT & AUTO [id number] 08:49:00 Test Item Value Reference Range Interpretation [...] PERCENT (BEAKER) (test code = 2801) POCT-GLUCOSE [id number] 07:57:00 Test Item Value Reference Range Interpretation Comments POC-GLUCOSE METER 133 mg/dL 70-110 H TESTED AT [place] [address] ([facility]) (test code = [place] 1538) [address] BODY FLUID CULTURE + GRAM [id number] 07:44:00 Test Item Value Reference Range Interpretation Comments CULTURE (BEAKER) (test code No growth = 1095) GRAM STAIN RESULT (AKER) <1+ WBCs (test code = 1123) GRAM STAIN RESULT (AKER) No organisms seen (test code = 99727) POCT-GLUCOSE [id number] 06:05:00 Test Item Value Reference Range Interpretation Comments POC-GLUCOSE METER 63 mg/dL 70-110 L TESTED AT [facility] 6720 (BEAKER) (test code = [place] [address] 1538) VANCOMYCIN LEVEL, [id number] 05:32:00 Test Item Value Reference Range Interpretation Comments VANCOMYCIN RANDOM (BEAKER) (test 31.0 ug/mL code = 523) Reference Range: No NormalsBASIC METABOLIC [id number] 05:24:00 Test Item Value Reference Range Interpretation [...] NOT APPLICABLE FOR DIALYSIS PATIEN TS. TROPONIN [id number] 05:23:00 Test Item Value Reference Range Interpretation [...] failure, acidosis, acute neurological disease, and persistent tachyarrhythmia.[id number] 05:21:00 Test Item Value Reference Range Interpretation Comments MAGNESIUM (BEAKER) (test code = 1.7 mg/dL 1.6-2.6 627) [id number] 05:06:00 Test Item Value Reference Range Interpretation Comments PARTIAL THROMBOPLASTIN TIME 89.4 seconds 22.5-36.0 H (BEAKER) (test code = 760) PROTHROMBIN [id number] 05:04:00 Test Item Value Reference Range Interpretation Comments PROTIME (BEAKER) (test code = 14.6 seconds 11.7-14.7 759) INR (BEAKER) (test code = 370) 1.2 <=5.9 RECOMMENDED COUMADIN/WARFARIN INR THERAPY RANGESSTANDARD DOSE: 2.0 - 3.0 Includes: PROPHYLAXIS forvenous thrombosis, systemic embolization; TREATMENT for venous thrombosis and/or pulmonary embolus.HIGH RISK: Target INR is 2.5-3.5 for patients with mechanical heart valves.TROPONIN [id number] 17:14:00 Test Item Value Reference Range Interpretation [...] failure, acidosis, acute neurological disease, and persistent tachyarrhythmia.[id number] 16:55:00 Test Item Value Reference Range Interpretation Comments GLUCOSE RANDOM (BEAKER) (test code 140 mg/dL 70-105 H = 652) GLUCOSE-STAT [id number] 13:33:00 Test Item Value Reference Range Interpretation Comments GLUCOSE RANDOM (BEAKER) (test code 101 mg/dL 70-110 = 652) POTASSIUM-STAT [id number] 13:33:00 Test Item Value Reference Range Interpretation Comments POTASSIUM (BEAKER) (test code = 4.6 meq/L 3.6-5.5 379) HGB/HCT (H&H) - STAT [id number] 13:33:00 Test Item Value Reference Range Interpretation Comments HEMOGLOBIN (BEAKER) (test code = 13.0 g/dL 12.0-15.0 410) HEMATOCRIT (BEAKER) (test code = 38.0 % 36.0-45.0 411) BODY FLUID CULTURE + GRAM [id number] 09:05:00 Test Item Value Reference Range Interpretation Comments CULTURE (BEAKER) (test code No growth = 1095) GRAM STAIN RESULT (BEAKER) <1+ WBCs (test code = 1123) GRAM STAIN RESULT (BEAKER) No organisms seen (test code = 15023) POCT-GLUCOSE [id number] 07:58:00 Test Item Value Reference Range Interpretation Comments POC-GLUCOSE METER 81 mg/dL 70-110 TESTED AT [facility] 6720 (BEAKER) (test code = [place] [address] 1538) HCG, QUANTITATIVE, [id number] 07:23:00 Test Item Value Reference Range Interpretation Comments GONADOTROPIN, CHORIONIC (HCG) QUANT < mIU/mL 0-10 (BEAKER) (test code = 649) Non- Females: <10 mIU/mL Females: Gestation Age Reference Range(mIU/mL) 0.2-1 Week 5-50 1-2 Weeks 50-500 2-3 Weeks 100-5,000 3-4Weeks 500-10,000 4-5 Weeks 1,000-50,000 5-6 Weeks 10,000-100,000 6-8 Weeks 15,000-200,000 2-3 Months 10,000-100,000TROPONIN [id number] 07:19:00 Test Item Value Reference Range Interpretation [...] acute neurological disease, and persistent tachyarrhythmia.BASIC METABOLIC [id number] 07:19:00 Test Item Value Reference Range Interpretation [...] S NOT APPLICABLE FOR DIALYSIS PATIEN TS. [id number] 07:18:00 Test Item Value Reference Range Interpretation Comments MAGNESIUM (BEAKER) (test code = 1.7 mg/dL 1.6-2.6 627) [id number] 06:48:00 Test Item Value Reference Range Interpretation [...] PERCENT (BEAKER) (test code = 2801) POCT-GLUCOSE [id number] 01:01:00 Test Item Value Reference Range Interpretation Comments POC-GLUCOSE METER 96 mg/dL 70-110 TESTED AT [facility] 6720 (BEAKER) (test code = [place] [address] 1538) TROPONIN [id number] 00:46:00 Test Item Value Reference Range Interpretation [...] failure, acidosis, acute neurological disease, and persistent tachyarrhythmia.[id number] 00:21:00 Test Item Value Reference Range Interpretation Comments PROTIME ([facility]) (test code = 15.8 seconds 11.7-14.7 H 759) INR ([facility]) (test code = 370) 1.3 <=5.9 PARTIAL THROMBOPLASTIN TIME 78.1 seconds 22.5-36.0 H ([facility]) (test code = 760) RECOMMENDED COUMADIN/WARFARIN INR THERAPY RANGESSTANDARD DOSE: 2.0 - 3.0 Includes: PROPHYLAXIS forvenous thrombosis, systemic embolization; TREATMENT for venous thrombosis and/or pulmonary embolus.HIGH RISK: Target INR is 2.5-3.5 for patients with mechanical heart valves.POCT-GLUCOSE [id number] 21:58:00 Test Item Value Reference Range Interpretation Comments POC-GLUCOSE METER 142 mg/dL 70-110 H TESTED AT [facility] 6720 ([facility]) (test code = [place] 1538) [address] VANCOMYCIN LEVEL, [id number] 20:19:00 Test Item Value Reference Range Interpretation Comments VANCOMYCIN RANDOM ([facility]) (test 18.4 ug/mL code = 523) Reference Range: No NormalsTROPONIN [id number] 18:36:00 Test Item Value Reference Range Interpretation Comments TROPONIN I ([facility]) (test code = 0.18 ng/mL 0.00-0.03 H [...] acidosis, acute neurological disease, and persistent tachyarrhythmia.POCT-GLUCOSE [id number] 18:30:00 Test Item Value Reference Range Interpretation Comments POC-GLUCOSE METER 119 mg/dL 70-110 H TESTED AT [place] [address] ([facility]) (test code = [place] 1538) [address] HEMOGLOBIN [id number] 18:21:00 Test Item Value Reference Range Interpretation Comments HEMOGLOBIN A1C ([facility]) (test code = 6.3 % 4.3-6.1 H 368) POCT-GLUCOSE [id number] 18:00:00 Test Item Value Reference Range Interpretation Comments POC-GLUCOSE METER 57 mg/dL 70-110 L TESTED AT [place] [address] ([facility]) (test code = TANISHA Hutson [facility] [address]38) [id number] 16:34:00 Test Item Value Reference Range Interpretation Comments PARTIAL THROMBOPLASTIN TIME 99.2 seconds 22.5-36.0 H ([facility]) (test code = 760) [id number] 15:36:00 Test Item Value Reference Range Interpretation Comments PARTIAL THROMBOPLASTIN TIME 123.9 seconds 22.5-36.0 H ([facility]) (test code = 760) [id number] 13:38:00 Test Item Value Reference Range Interpretation Comments PARTIAL THROMBOPLASTIN TIME > seconds 22.5-36.0 HH ([facility]) (test code = 760) TROPONIN [id number] 13:27:00 Test Item Value Reference Range Interpretation Comments TROPONIN I ([facility]) (test code = 0.19 ng/mL 0.00-0.03 [...] acidosis, acute neurological disease, and persistent tachyarrhythmia.POCT-GLUCOSE [id number] 13:25:00 Test Item Value Reference Range Interpretation Comments POC-GLUCOSE METER 120 mg/dL 70-110 H TESTED AT [place] [address] ([facility]) (test code = TANISHA Hutson [facility] 1538) [address] POCT-GLUCOSE [id number] 09:50:00 Test Item Value Reference Range Interpretation Comments POC-GLUCOSE METER 85 mg/dL 70-110 TESTED AT [facility] 6720 ([facility]) (test code = TANISHA Hutson [facility] [address] 1538) TROPONIN [id number] 08:31:00 Test Item Value Reference Range Interpretation Comments TROPONIN I ([facility]) (test code = 0.20 ng/mL 0.00-0.03 [facility]) Troponin I (TnI) levels must be interpreted [...] failure, acidosis, acute neurological disease, and persistent tachyarrhythmia.[id number] 03:35:00 Test Item Value Reference Range Interpretation Comments PARTIAL THROMBOPLASTIN TIME 39.1 seconds 22.5-36.0 H (AKER) (test code = 760) BASIC METABOLIC [id number] 03:34:00 Test Item Value Reference Range Interpretation [...] 8.4-10.2 L (test code = 697) [facility] (test 4 mL/min/1.73 ESTIMAT ED GFR IS code = 1092) sq m NOT ACCURATE CREATININE CLEARANCE IN PREDICTING GLOMERULAR FILTRATION RATE . ESTIMATED GFR I S NOT APPLICABLE FOR DIALYSIS PATIEN TS. [id number] 03:32:00 Test Item Value Reference Range Interpretation Comments MAGNESIUM (BEAKER) (test code = 1.5 mg/dL 1.6-2.6 L 627) CBC W/PLT COUNT & AUTO [id number] 03:17:00 Test Item Value Reference Range Interpretation [...] 417) IMMATURE GRANULOCYTES-RELATIVE 0 % 0-1 PERCENT ([facility]) (test code = 2801) TROPONIN [id number] 01:22:00 Test Item Value Reference Range Interpretation Comments TROPONIN I ([facility]) (test code = 0.19 ng/mL 0.00-0.03 [...] acidosis, acute neurological disease, and persistent tachyarrhythmia.POCT-GLUCOSE [id number] 00:49:00 Test Item Value Reference Range Interpretation Comments POC-GLUCOSE METER 74 mg/dL 70-110 TESTED AT [facility] 6720 ([facility]) (test code = TANISHA Hutson [facility] [address] 1538) TROPONIN [id number] 18:57:00 Test Item Value Reference Range Interpretation Comments TROPONIN I ([facility]) (test code = 0.17 ng/mL 0.00-0.03 H [...] acute neurological disease, and persistent tachyarrhythmia.VANCOMYCIN LEVEL, [id number] 18:52:00 Test Item Value Reference Range Interpretation Comments VANCOMYCIN RANDOM ([facility]) (test 29.2 ug/mL code = 523) Reference Range: No NormalsLACTATE DEHYDROGENASE (LDH)2017-01-02 18:46:00 Test Item Value Reference Range Interpretation Comments LACTATE DEHYDROGENASE (BEAKER) (test 300 U/L 125-220 H code = 635) BODY FLUID CELL COUNT WITH [id number] 18:36:00 Test Item Value Reference Range Interpretation [...] = 2873) RAD, CHEST, 1 VIEW, NON [id number] 18:36:00PT started dialysis 07/12/2015 Reason for exam:->s/p thoraFINAL REPORT Comparison: 01/01/2017 TECHNIQUE: Single view of the chest FINDINGS: Right pleural effusion has decreased. No pneumothorax bilaterally. No other significant change. Signed: Turner Grier Verified Date/Time: 01/02/2017 18:36:30 Reading Location: [address] Consult Reading Room PH, BODY [id number] 18:22:00 Test Item Value Reference Range Interpretation Comments PH, BODY FLUID (BEAKER) (test code = 7.80 1530) POCT-GLUCOSE [id number] 18:19:00 Test Item Value Reference Range Interpretation Comments POC-GLUCOSE METER 91 mg/dL 70-110 TESTED AT [facility] 6720 (BEAKER) (test code = [place] [address] 1538) LACTATE DEHYDROGENASE (LDH), BODY [id number] 18:04:00 Test Item Value Reference Range Interpretation [...] = 2585) CREATINE KINASE (CK), TOTAL AND [id number] 13:09:00 Test Item Value Reference Range Interpretation Comments CREATINE KINASE TOTAL (BEAKER) 285 U/L 29-200 H (test code = 380) CREATINE KINASE-MB (BEAKER) (test 15.2 ng/mL 0.0-6.6 H code = 750) CREATINE KINASE-MB INDEX (BEAKER) 5.3 % (test code = 395) CK-MB Reference Range:<6.7 Normal6.7-10.0 Borderline>10.0 AbnormalTROPONIN [id number] 13:09:00 Test Item Value Reference Range Interpretation [...] acidosis, acute neurological disease, and persistent tachyarrhythmia.POCT-GLUCOSE [id number] 12:25:00 Test Item Value Reference Range Interpretation Comments POC-GLUCOSE METER 95 mg/dL 70-110 TESTED AT [facility] 6720 ([facility]) (test code = TANISHA Hutson [facility] [address] 1538) POCT-GLUCOSE [id number] 11:56:00 Test Item Value Reference Range Interpretation Comments POC-GLUCOSE METER 65 mg/dL 70-110 L Notified R Gio IGLESIAS/TESTED AT ([facility]) (test code = [facility] 6720 RAJINDER 1538) [facility] [address] BASIC METABOLIC [id number] 06:05:00 Test Item Value Reference Range Interpretation [...] NOT APPLICABLE FOR DIALYSIS PATIEN TS. TROPONIN [id number] 06:04:00 Test Item Value Reference Range Interpretation [...] failure, acidosis, acute neurological disease, and persistent tachyarrhythmia.[id number] 06:03:00 Test Item Value Reference Range Interpretation Comments MAGNESIUM (BEAKER) (test code = 1.9 mg/dL 1.6-2.6 627) CBC W/PLT COUNT & AUTO [id number] 05:59:00 Test Item Value Reference Range Interpretation [...] PERCENT (BEAKER) (test code = 2801) TROPONIN [id number] 01:42:00 Test Item Value Reference Range Interpretation [...] acute neurological disease, and persistent tachyarrhythmia.BASIC METABOLIC [id number] 01:37:00 Test Item Value Reference Range Interpretation [...] S NOT APPLICABLE FOR DIALYSIS PATIEN TS. [id number] 01:30:00 Test Item Value Reference Range Interpretation Comments MAGNESIUM (BEAKER) (test code = 1.5 mg/dL 1.6-2.6 L 627) POCT-GLUCOSE [id number] 00:03:00 Test Item Value Reference Range Interpretation Comments POC-GLUCOSE METER 76 mg/dL 70-110 TESTED AT [facility] [facility] (test code = TANISHA Hutson [facility] [address] 1538) POCT-GLUCOSE [id number] 22:26:00 Test Item Value Reference Range Interpretation Comments POC-GLUCOSE METER 60 mg/dL 70-110 L TESTED AT [facility] 6720 ([facility]) (test code = TANISHA Hutson [facility] [address] 1538) TROPONIN [id number] 21:46:00 Test Item Value Reference Range Interpretation Comments TROPONIN I (AKER) (test code = 0.23 ng/mL 0.00-0.03 HH [...] acute neurological disease, and persistent tachyarrhythmia.BASIC METABOLIC [id number] 21:38:00 Test Item Value Reference Range Interpretation [...] S NOT APPLICABLE FOR DIALYSIS PATIEN TS. [id number] 21:35:00 Test Item Value Reference Range Interpretation Comments MAGNESIUM (BEAKER) (test code = 1.6 mg/dL 1.6-2.6 627) [id number] 21:34:00 Test Item Value Reference Range Interpretation Comments PHOSPHORUS (BEAKER) (test code = 7.7 mg/dL 2.3-4.7 H 604) RAD, CHEST, 1 VIEW, NON [id number] 21:30:00PT started dialysis 07/12/2015Reason for exam:->Line placementShould [...] Additional findings: None. Signed: [facility] Verified Date/Time: 01/01/2017 21:30:48 Reading Location: [place] [id number] CT Body Reading Room BODY FLUID CELL COUNT WITH [id number] 20:13:00 Test Item Value Reference Range Interpretation [...] Tube (test code = 2873) COMPREHENSIVE METABOLIC [id number] 19:19:00 Test Item Value Reference Range Interpretation [...] PATIEN TS. RAD, CHEST, 1 VIEW, NON [id number] 18:48:00PT started dialysis 07/12/2015 Reason for exam:->s/p left thoracentesis Should this be performed at the bedside?->YesFINAL REPORT Comparison: 01/01/2017 TECHNIQUE: Single view of the chest FINDINGS: Left pleural effusion has decreased. No pneumothorax bilaterally. Interval placement of a right internal jugular catheter. Tip projects in the mid SVC. No other gross change. Signed: Turner Grier MDR[facility] Verified Date/Time: 01/01/2017 18:48:26 Reading Location: [address] Transitional Reading Room POCT-GLUCOSE [id number] 18:23:00 Test Item Value Reference Range Interpretation Comments POC-GLUCOSE METER 79 mg/dL 70-110 TESTED AT [place] [address] ([facility] (test code = [facility] [address] 1538) [id number] 18:09:00 Test Item Value Reference Range Interpretation Comments AMMONIA (BEAKER) (test 9 mol/L 18-72 L Speci men markedly code = 348) hemolyzed [id number] 18:08:00 Test Item Value Reference Range Interpretation Comments MAGNESIUM (BEAKER) 2.8 mg/dL 1.6-2.6 H Specimen markedly (test code = 627) hemolyzed [id number] 18:08:00 Test Item Value Reference Range Interpretation Comments PHOSPHORUS (BEAKER) 8.1 mg/dL 2.3-4.7 H Specimen markedly (test code = 604) hemolyzed POCT-GLUCOSE [id number] 18:07:00 Test Item Value Reference Range Interpretation Comments POC-GLUCOSE METER 81 mg/dL 70-110 TESTED AT [place] [address] ([facility] (test code = [facility] [address] 1538) LACTIC ACID, ARTERIAL, WHOLE [id number] 17:14:00 Test Item Value Reference Range Interpretation Comments LACTATE BLOOD 0.9 mmol/L 0.5-2.2 Specimen sligh tly ARTERIAL (2) (BEAKER) hemoly zed (test code = 2874) Effective 07/15/2015: Units/Reference Range ChangeNew: 0.5-2.2 mmol/L Previous: 5-20 mg/[id number] 17:12:00 Test Item Value Reference Range Interpretation Comments PROCALCITONIN (BEAKER) (test code 0.72 ng/mL <0.05 H = 3036) SEPSIS RISK (ng/mL)Low: 0.05-0.50Intermediate: 0.51-2.00High: >=2.01TROPONIN [id number] 16:56:00 Test Item Value Reference Range Interpretation [...] (BEAKER) (test code = 700) BLOOD GAS, [id number] 16:50:00 Test Item Value Reference Range Interpretation [...] (BEAKER) (test code = 1819) 21.0 % [id number] 16:46:00 Test Item Value Reference Range Interpretation Comments PHOSPHORUS (BEAKER) 7.9 mg/dL 2.3-4.7 H Specimen markedly (test code = 604) hemolyzed [id number] 16:46:00 Test Item Value Reference Range Interpretation Comments LIPASE (BEAKER) (test code = 749) 38 U/L 8-78 CALCIUM, [id number] 16:46:00 Test Item Value Reference Range Interpretation Comments CALCIUM IONIZED (BEAKER) (test 1.00 mmol/L 1.12-1.27 L code = 698) PH, BLOOD (BEAKER) (test code = 7.36 1810) PROTHROMBIN [id number] 16:43:00 Test Item Value Reference Range Interpretation [...] = 2801) RAD, CHEST, 1 VIEW, NON [id number] 15:22:00PT started dialysis 07/12/2015Post-intubationReason for exam:->sobShould this be performed at the bedside?->YesFINAL REPORT Comparison: 06/07/2016 TECHNIQUE: Single view of the chest FINDINGS: There is a moderate to large left pleural effusion and moderate right pleural effusion with nonspecific adjacent airspace disease. Cardiac silhouette is obscured. No gross pneumothorax. No acute skeletal abnormality. Signed: Turner Grier MDReport Verified Date/Time: 01/01/2017 15:22:20 Reading Location: [facility] C013T Transitional Reading Room BODY FLUID CULTURE + GRAM [id number] 11:17:00 Test Item Value Reference Range Interpretation Comments CULTURE (BEAKER) (test code No growth = 1095) GRAM STAIN RESULT (BEAKER) <1+ WBCs (test code = 1123) GRAM STAIN RESULT (BEAKER) No organisms seen (test code = 80230) [id number] 15:47:00Medical Cytology Report Case: [id number] Authorizing Provider: Verena Carrero MD Collected: 12/12/2016 1540 Ordering Location: [facility] Laboratory Received: 12/13/2016 1002 Pathologist: Gokul Hood MD Specimen: Pl eural, Right RIGHT PLEURAL FLUID (CYTOSPINS): - NEGATIVE FOR MALIGNANT CELLS Signing Pathologist Direct Phone Line: [phone] signed by Gokul Hood MD on 12/13/2016 at 3:47 PMReactive mesothelialcells are noted.[id number] pleural effusion; CHFRIGHT PLEURAL FLUID4 cytospins prepared from 200 ml yellow fluidCollected: [id number]: [id number] [facility], Departmentof Pathology, [address] [place] [address], [facility], [address] [place] [address], JYNSLDPQ GRAVITY, BODY [id number] 15:33:00 Test Item Value Reference Range Interpretation Comments SP GRAVITY MISCELLANEOUS (BEAKER) (test 1.019 code = 557) Reference Range: No NormalsBODY FLUID [id number] 11:49:00 Test Item Value Reference Range Interpretation Comments CRYSTALS, BODY FLUID No crystals seen. (BEAKER) (test code = 2165) [id number] Anne Yen MD (BEAKER) (test code = (electronic signature) 1384) PH, BODY [id number] 00:24:00 Test Item Value Reference Range Interpretation Comments PH, BODY FLUID (BEAKER) (test code = 7.90 1530) BODY FLUID CELL COUNT WITH [id number] 19:53:00 Test Item Value Reference Range Interpretation [...] Tube (test code = 2873) ALBUMIN, BODY [id number] 19:31:00 Test Item Value Reference Range Interpretation Comments ALBUMIN FLUID (BEAKER) (test code = 0.9 gm/dL 501) Reference Range: No Normals Assay performance has not been validated for this type of specimen.RIGHT THORACENTESIS, PLEURAL FLUIDRIGHT THORACENTESIS, PLEURAL FLUIDRIGHT THORACENTESIS, PLEURAL FLUIDRIGHT THORACENTESIS, PLEURAL FLUIDRIGHT THORACENTESIS, PLEURAL FLUIDRIGHT THORACENTESIS, PLEURAL FLUIDCREATININE, BODY [id number] 19:31:00 Test Item Value Reference Range Interpretation Comments CREATININE FLUID (BEAKER) (test 15.62 mg/dL code = 677) Reference Range: No Normals Assay performance has not been validated for this type of specimen.RIGHT THORACENTESIS, PLEURAL FLUIDRIGHT THORACENTESIS, PLEURAL FLUIDRIGHT THORACENTESIS, PLEURAL FLUIDRIGHT THORACENTESIS, PLEURAL FLUIDRIGHT THORACENTESIS, PLEURAL FLUIDRIGHT THORACENTESIS, PLEURAL FLUIDAMYLASE, BODY [id number] 19:27:00 Test Item Value Reference Range Interpretation Comments AMYLASE FLUID (BEAKER) (test code = 39 U/L 350) Absence of reference range indicates that normals have not been defined.Assay performance has not been validated for this type of specimen.RIGHT THORACENTESIS, PLEURAL FLUIDRIGHT THORACENTESIS, PLEURALFLUIDRIGHT THORACENTESIS, PLEURAL FLUIDRIGHT THORACENTESIS, PLEURAL FLUIDRIGHT THORACENTESIS, PLEURAL FLUIDRIGHT THORACENTESIS, PLEURAL FLUIDLACTATE DEHYDROGENASE (LDH), BODY [id number] 19:27:00 Test Item Value Reference Range Interpretation Comments LACTATE DEHYDROGENASE FLUID (BEAKER) 113 U/L (test code = 634) Absence of reference range indicates that normals have not been defined.Assay performance has not been validated for this type of specimen.RIGHT THORACENTESIS, PLEURAL FLUIDRIGHT THORACENTESIS, PLEURALFLUIDRIGHT THORACENTESIS, PLEURAL FLUIDRIGHT THORACENTESIS, PLEURAL FLUIDRIGHT THORACENTESIS, PLEURAL FLUIDRIGHT THORACENTESIS, PLEURAL FLUIDPROTEIN, BODY [id number] 19:27:00 Test Item Value Reference Range Interpretation Comments PROTEIN FLUID (BEAKER) (test code = 2.1 g/dL 579) Absence of reference range indicates that normals have not been defined.Assay performance has not been validated for this type of specimen.RIGHT THORACENTESIS, PLEURAL FLUIDRIGHT THORACENTESIS, PLEURALFLUIDRIGHT THORACENTESIS, PLEURAL FLUIDRIGHT THORACENTESIS, PLEURAL FLUIDRIGHT THORACENTESIS, PLEURAL FLUIDRIGHT THORACENTESIS, PLEURAL FLUIDGLUCOSE, BODY [id number] 19:27:00 Test Item Value Reference Range Interpretation Comments GLUCOSE, BODY FLUID (BEAKER) (test 172 mg/dL code = 1528) Absence of reference range indicates that normals have not been defined.Assay performance has not been validated for this type of specimen.RIGHT THORACENTESIS, PLEURAL FLUIDRIGHT THORACENTESIS, PLEURALFLUIDRIGHT THORACENTESIS, PLEURAL FLUIDRIGHT THORACENTESIS, PLEURAL FLUIDRIGHT THORACENTESIS, PLEURAL FLUIDRIGHT THORACENTESIS, PLEURAL FLUIDAFB CULTURE + [id number] 18:17:00 Test Item Value Reference Range Interpretation Comments CULTURE (BEAKER) (test No acid-fast bacilli code = 1095) isolated in 42 days AFB SMEAR (BEAKER) No acid fast bacilli (test code = 994) seen FUNGUS CULTURE + [id number] 19:24:00 Test Item Value Reference Range Interpretation Comments CULTURE (BEAKER) (test No fungus isolated in code = 1095) 28 days FUNGUS SMEAR (BEAKER) No fungi seen (test code = 1406) BLOOD [id number] 08:20:00 Test Item Value Reference Range Interpretation Comments CULTURE (BEAKER) (test No growth in 5 days code = 1095) BLOOD [id number] 08:13:00 Test Item Value Reference Range Interpretation Comments CULTURE (BEAKER) (test No growth in 5 days code = 1095) POCT-GLUCOSE [id number] 08:25:00 Test Item Value Reference Range Interpretation Comments POC-GLUCOSE METER 244 mg/dL 70-110 H TESTED AT [facility] 6720 (BEAKER) (test code = [place] 1538) [address] BASIC METABOLIC [id number] 05:31:00 Test Item Value Reference Range Interpretation [...] S NOT APPLICABLE FOR DIALYSIS PATIEN TS. [id number] 05:27:00 Test Item Value Reference Range Interpretation [...] 0-0 (BEAKER) (test code = 413) 0.00POCT-GLUCOSE [id number] 00:54:00 Test Item Value Reference Range Interpretation Comments POC-GLUCOSE METER 124 mg/dL 70-110 H TESTED AT [place] [address] ([facility]) (test code = T[place]ISHA [place] 1538) [address] POCT-GLUCOSE [id number] 17:10:00 Test Item Value Reference Range Interpretation Comments POC-GLUCOSE METER 146 mg/dL 70-110 H TESTED AT [place] [id number] ([facility]) (test code = TAN[place] 1538) [address] BODY FLUID CULTURE + GRAM [id number] 15:37:00 Test Item Value Reference Range Interpretation Comments CULTURE (BEAKER) (test code No growth = 1095) GRAM STAIN RESULT (BEAKER) No WBCs (test code = 1123) GRAM STAIN RESULT (BEAKER) No organisms seen (test code = 06547) PERITONEAL DIALYSIS EFFLUENT [id number] 15:25:00 Test Item Value Reference Range Interpretation Comments CULTURE ([facility]) (test code = 1095) No growth POCT-GLUCOSE [id number] 12:03:00 Test Item Value Reference Range Interpretation Comments POC-GLUCOSE METER 170 mg/dL 70-110 H TESTED AT [place] [address] ([facility]) (test code = TANISHA Hutson [facility] 1538) [address] HEPATITIS C PCR, [id number] 09:44:00 Test Item Value Reference Range Interpretation Comments HCV NUMERIC RESULT ([facility]) 296111 IU/mL <15 H (test code = 2700) This test uses a Real-Time Polymerase Chain Reaction (RT-PCR) methodology and was performed using SHELLY Ampliprep/SHELLY TaqMan HCV test kit version 2.0 ([employer]).Reportable range for this assay is 15 - 100,000,000 IU per mL (1.18 - 8.00 Log IU/mL).POCT-GLUCOSE [id number] 08:07:00 Test Item Value Reference Range Interpretation Comments POC-GLUCOSE METER 183 mg/dL 70-110 H TESTED AT [place] [address] ([facility]) (test code = [facility] 1538) [address] CBC (HEMOGRAM ONLY)2016-06-08 06:53:00 Test Item Value Reference Range Interpretation Comments WHITE BLOOD CELL COUNT ([facility]) 6.2 K/ L 4.0-10.0 (test code = 775) RED BLOOD CELL COUNT ([facility]) 3.22 M/ L 4.00-5.00 L (test code = 761) HEMOGLOBIN (AKER) (test code = 9.5 GM/DL 12.0-15.0 L 410) HEMATOCRIT (AKER) (test code = 28.1 % 36.0-45.0 L 411) MEAN CORPUSCULAR VOLUME (AKER) 87.5 fL 82.0-99.0 (test code = 753) MEAN CORPUSCULAR HEMOGLOBIN 29.5 pg 27.0-33.0 (AKER) (test code = 751) MEAN CORPUSCULAR HEMOGLOBIN CONC 33.7 GM/DL 32.0-36.0 (AKER) (test code = 752) RED CELL DISTRIBUTION WIDTH 18.3 % 10.3-14.2 H (AKER) (test code = 412) PLATELET COUNT (BEAKER) (test 188 K/CU MM 150-430 code = 756) MEAN PLATELET VOLUME (BEAKER) 9.2 fL 6.5-10.5 (test code = 754) NUCLEATED RED BLOOD CELLS 0 /100 WBC 0-0 (BEAKER) (test code = 413) 0.00BASIC METABOLIC [id number] 05:44:00 Test Item Value Reference Range Interpretation [...] S NOT APPLICABLE FOR DIALYSIS PATIEN TS. [id number] 05:41:00 Test Item Value Reference Range Interpretation Comments MAGNESIUM (BEAKER) (test code = 2.3 mg/dL 1.6-2.6 627) POCT-GLUCOSE [id number] 20:59:00 Test Item Value Reference Range Interpretation Comments POC-GLUCOSE METER 105 mg/dL 70-110 TESTED AT [facility] 6720 (BEAKER) (test code = [place] 1538) [address] POCT-GLUCOSE [id number] 17:58:00 Test Item Value Reference Range Interpretation Comments POC-GLUCOSE METER 129 mg/dL 70-110 H TESTED AT [facility] 6720 (BEAKER) (test code = [place] 1538) [address] POCT-GLUCOSE [id number] 17:58:00 Test Item Value Reference Range Interpretation Comments POC-GLUCOSE METER 138 mg/dL 70-110 H TESTED AT [facility] 6720 ([facility] (test code = [place] 1538) [address] ANTI-NUCLEAR ANTIBODY (MILTON)2016-06-07 14:51:00 Test Item Value Reference Range Interpretation Comments ANTI-NUCLEAR ANTIBODY ([place]) (BEAKER) Negative Negative (test code = 418) [id number] 09:26:00 Test Item Value Reference Range Interpretation Comments PHOSPHORUS (BEAKER) (test code = 7.8 mg/dL 2.3-4.7 H 604) POCT-GLUCOSE [id number] 08:18:00 Test Item Value Reference Range Interpretation Comments POC-GLUCOSE METER 140 mg/dL 70-110 H TESTED AT [facility] 6720 ([facility] (test code = [place] 1538) [address] CBC (HEMOGRAM ONLY)2016-06-07 07:53:00 Test Item Value [...] (BEAKER) (test code = 413) 0.00BASIC METABOLIC [id number] 07:30:00 Test Item Value Reference Range Interpretation [...] S NOT APPLICABLE FOR DIALYSIS PATIEN TS. [id number] 07:29:00 Test Item Value Reference Range Interpretation Comments MAGNESIUM (BEAKER) (test code = 1.7 mg/dL 1.6-2.6 627) VANCOMYCIN LEVEL, [id number] 07:28:00 Test Item Value Reference Range Interpretation Comments VANCOMYCIN RANDOM (BEAKER) (test 18.5 ug/mL code = 523) Reference Range: No NormalsPOCT-GLUCOSE [id number] 21:54:00 Test Item Value Reference Range Interpretation Comments POC-GLUCOSE METER 112 mg/dL 70-110 H TESTED AT [place] [address] ([facility]) (test code = [place] 1538) [address] [id number] 19:10:00 Test Item Value Reference Range Interpretation Comments ACTIVATED CLOTTING TIME 337 sec TEST ED AT [place] [address] ([facility]) (test code = [place] 441) [address] [id number] 16:26:00 Test Item Value Reference Range Interpretation Comments PARTIAL THROMBOPLASTIN TIME 83.0 seconds 22.5-36.0 H ([facility]) (test code = 760) HEPATIC FUNCTION [id number] 14:54:00 Test Item Value Reference Range Interpretation [...] (test code = 18 U/L 6-55 347) [id number] 13:30:00 Test Item Value Reference Range Interpretation Comments FERRITIN (BEAKER) (test code = 361) 343 ng/mL 5-275 H Effective 01/28/2014: Reference Range ChangeNew: Male 5-275 Previous: Male 22-322 Female 5-275 Female 22-664GPJO-IHANEET [id number] 13:01:00 Test Item Value Reference Range Interpretation Comments POC-GLUCOSE METER 121 mg/dL 70-110 H TESTED AT [facility] 6720 ([facility] (test code = [place] 1538) [address] HEPATITIS C [id number] 11:01:00 Test Item Value Reference Range Interpretation Comments HEPATITIS C ANTIBODY (BEAKER) (test Reactive Nonreactive A code = 367) HEPATITIS B SURFACE [id number] 10:32:00 Test Item Value Reference Range Interpretation Comments HEPATITIS B SURFACE ANTIGEN (2) Nonreactive Nonreactive (BEAKER) (test code = 2585) HEPATITIS B SURFACE [id number] 10:32:00 Test Item Value Reference Range Interpretation Comments HEPATITIS B SURFACE ANTIBODY 71.3 mIU/mL <8.0 H (BEAKER) (test code = 647) HEPATITIS A ANTIBODY, [id number] 10:32:00 Test Item Value Reference Range Interpretation Comments HEPATITIS A IGM ANTIBODY (BEAKER) Nonreactive Nonreactive (test code = 498) HEPATITIS B CORE ANTIBODY, [id number] 10:32:00 Test Item Value Reference Range Interpretation Comments HEPATITIS B CORE TOTAL ANTIBODY Nonreactive Nonreactive (BEAKER) (test code = 497) LACTATE DEHYDROGENASE (LDH), BODY [id number] 10:24:00 Test Item Value Reference Range Interpretation [...] % 20-55 (test code = 2590) PROTEIN, [id number] 09:36:00 Test Item Value Reference Range Interpretation Comments TOTAL PROTEIN (BEAKER) (test code = 6.5 gm/dL 6.0-8.3 770) LACTATE DEHYDROGENASE (LDH)2016-06-06 09:36:00 Test Item Value Reference Range Interpretation Comments LACTATE DEHYDROGENASE (BEAKER) (test 248 U/L 125-220 H code = 635) [id number] 09:32:00 Test Item Value Reference Range Interpretation Comments PARTIAL THROMBOPLASTIN TIME 72.0 seconds 22.5-36.0 H (BEAKER) (test code = 760) Prior to initiating heparinPROTHROMBIN [id number] 09:30:00 Test Item Value Reference Range Interpretation [...] 0-0 (BEAKER) (test code = 413) PLATELET [id number] 09:15:00 Test Item Value Reference Range Interpretation Comments PLATELET COUNT (BEAKER) (test 185 K/CU MM 150-430 code = 756) POCT-GLUCOSE [id number] 08:01:00 Test Item Value Reference Range Interpretation Comments POC-GLUCOSE METER 119 mg/dL 70-110 H TESTED AT [facility] 6720 (BEAKER) (test code = [place] 1538) [address] [id number] 04:10:00 Test Item Value Reference Range Interpretation Comments MAGNESIUM (BEAKER) (test code = 1.8 mg/dL 1.6-2.6 627) BASIC METABOLIC [id number] 04:10:00 Test Item Value Reference Range Interpretation [...] GFR I S NOT APPLICABLE FOR DIALYSIS JENNIFER SOW [id number] 04:09:00 Test Item Value Reference Range Interpretation [...] 0-0 (BEAKER) (test code = 413) 0.00POCT-GLUCOSE [id number] 00:10:00 Test Item Value Reference Range Interpretation Comments POC-GLUCOSE METER 235 mg/dL 70-110 H TESTED AT [facility] 6720 (BEAKER) (test code = [place] 1538) [address] GRAM [id number] 23:45:00 Test Item Value Reference Range Interpretation Comments GRAM STAIN RESULT (BEAKER) <1+ WBCs (test code = 1123) GRAM STAIN RESULT (BEAKER) No organisms seen (test code = 26935) BODY FLUID CELL COUNT WITH [id number] 20:12:00 Test Item Value Reference Range Interpretation [...] = 2873) BODY FLUID CELL COUNT WITH [id number] 19:33:00 Test Item Value Reference Range Interpretation [...] Tube (test code = 2873) PROTEIN, BODY [id number] 19:01:00 Test Item Value Reference Range Interpretation [...] FLUID (BEAKER) (test code = 7.73 1530) [id number] 18:22:00 Test Item Value Reference Range Interpretation Comments PARTIAL THROMBOPLASTIN TIME 36.7 seconds 22.5-36.0 H (BEAKER) (test code = 760) PROTHROMBIN [id number] 18:20:00 Test Item Value Reference Range Interpretation Comments PROTIME (BEAKER) (test code = 15.3 seconds 11.7-14.7 H 759) INR (BEAKER) (test code = 370) 1.2 <=5.9 RECOMMENDED COUMADIN/WARFARIN INR THERAPY RANGESSTANDARD DOSE: 2.0 - 3.0 Includes: PROPHYLAXIS forvenous thrombosis, systemic embolization; TREATMENT for venous thrombosis and/or pulmonary embolus.HIGH RISK: Target INR is 2.5-3.5 for patients with mechanical heart valves.POCT-GLUCOSE [id number] 18:04:00 Test Item Value Reference Range Interpretation Comments POC-GLUCOSE METER 182 mg/dL 70-110 H TESTED AT [facility] 6720 (BEAKER) (test code = [place] 1538) [address] CREATINE KINASE (CK), TOTAL AND [id number] 16:32:00 Test Item Value Reference Range Interpretation Comments CREATINE KINASE TOTAL (BEAKER) 247 U/L 29-200 H (test code = 380) CREATINE KINASE-MB (BEAKER) (test 8.4 ng/mL 0.0-6.6 H code = 750) CREATINE KINASE-MB INDEX (BEAKER) 3.4 % (test code = 395) Effective 01/28/2014: CK-MB Reference Range ChangeNew: 0.0-6.6 Previous: 0.0-4.9CK-MB Reference Range:<6.7 Normal6.7-10.0 Borderline>10.0 AbnormalTROPONIN [id number] 16:32:00 Test Item Value Reference Range Interpretation [...] acute neurological disease, and persistent tachyarrhythmia.BASIC METABOLIC [id number] 16:31:00 Test Item Value Reference Range Interpretation [...] S NOT APPLICABLE FOR DIALYSIS PATIEN TS. [id number] 16:26:00 Test Item Value Reference Range Interpretation Comments PHOSPHORUS (BEAKER) (test code = 8.1 mg/dL 2.3-4.7 H 604) [id number] 16:26:00 Test Item Value Reference Range Interpretation Comments MAGNESIUM (BEAKER) (test code = 1.9 mg/dL 1.6-2.6 627) HEPATIC FUNCTION [id number] 16:26:00 Test Item Value Reference Range Interpretation [...] 6-55 347) CBC W/PLT COUNT & AUTO [id number] 16:07:00 Test Item Value Reference Range Interpretation [...] code = 417) 0.00LACTIC ACID, VENOUS, WHOLE [id number] 16:06:00 Test Item Value Reference Range Interpretation Comments LACTATE BLOOD VENOUS (2) (BEAKER) 1.5 mmol/L 0.5-2.2 (test code = 2872) Effective 07/15/2015: Units/Reference Range ChangeNew: 0.5-2.2 mmol/L Previous: 5-20 mg/dLBLOOD GAS, [id number] 15:57:00 Test Item Value Reference Range Interpretation [...] (test code = 1819) 21.0 % POCT-GLUCOSE [id number] 12:45:00 Test Item Value Reference Range Interpretation Comments POC-GLUCOSE METER 201 mg/dL 70-110 H TESTED AT [facility] 6720 (BEAKER) (test code = [facility] 1538) [address] POCT-GLUCOSE [id number] 08:26:00 Test Item Value Reference Range Interpretation Comments POC-GLUCOSE METER 181 mg/dL 70-110 H TESTED AT [facility] [facility] (test code = [facility] 1538) [address] [id number] 07:00:00 Test Item Value Reference Range Interpretation Comments FERRITIN (BEAKER) (test code = 361) 337 ng/mL 5-275 H Effective 01/28/2014: Reference Range ChangeNew: Male 5-275 Previous: Male 22-322 Female 5-275 Female [id number] 06:20:00 Test Item Value Reference Range Interpretation Comments MAGNESIUM (BEAKER) (test code = 1.8 mg/dL 1.6-2.6 627) BASIC METABOLIC [id number] 06:20:00 Test Item Value Reference Range Interpretation [...] = 2590) CBC W/PLT COUNT & AUTO [id number] 06:00:00 Test Item Value Reference Range Interpretation [...] L 0.00-0.20 (test code = 417) 0.00POCT-GLUCOSE [id number] 17:21:00 Test Item Value Reference Range Interpretation Comments POC-GLUCOSE METER 196 mg/dL 70-110 H TESTED AT [place] [address] ([facility]) (test code = TANISHA Hutson [facility] 1538) [id number] POCT-GLUCOSE [id number] 12:54:00 Test Item Value Reference Range Interpretation Comments POC-GLUCOSE METER 190 mg/dL 70-110 H TESTED AT [place] [address] ([facility]) (test code = TANISHA Hutson [facility] 1538) [address] HEMOGLOBIN AND DRLFCYEVMF9147-92-25 11:25:00 Test Item Value Reference Range Interpretation Comments HEMOGLOBIN (BEAKER) (test code = 9.1 GM/DL 12.0-15.0 L 410) HEMATOCRIT (BEAKER) (test code = 27.2 % 36.0-45.0 L 411) POCT-GLUCOSE [id number] 07:54:00 Test Item Value Reference Range Interpretation Comments POC-GLUCOSE METER 116 mg/dL 70-110 H TESTED AT [facility] 6720 (BEAKER) (test code = [place] 1538) [address] VYZBZFMQZM5341-18-10 05:00:00 Test Item Value Reference Range Interpretation Comments PHOSPHORUS (BEAKER) (test code = 8.0 mg/dL 2.3-4.7 H 604) BASIC METABOLIC [id number] 01:32:00 Test Item Value Reference Range Interpretation [...] PATIEN TS. CBC W/PLT COUNT & AUTO CWNNLDABLTVQ3035-99-73 01:18:00 Test Item Value Reference Range Interpretation [...] L 0.00-0.20 (test code = 417) 0.00POCT-GLUCOSE [id number] 22:11:00 Test Item Value Reference Range Interpretation Comments POC-GLUCOSE METER 200 mg/dL 70-110 H TESTED AT [facility] 6720 (BEAKER) (test code = [place] 1538) [address] POCT-GLUCOSE [id number] 18:17:00 Test Item Value Reference Range Interpretation Comments POC-GLUCOSE METER 206 mg/dL 70-110 H TESTED AT [facility] 6720 (BEAKER) (test code = T[place]IS[place] 1538) [address] [id number] 17:39:00 Test Item Value Reference Range Interpretation Comments POTASSIUM (BEAKER) (test code = 4.7 meq/L 3.5-5.1 379) BASIC METABOLIC [id number] 11:55:00 Test Item Value Reference Range Interpretation [...] S NOT APPLICABLE FOR DIALYSIS PATIEN TS. PT/[id number] 11:42:00 Test Item Value Reference Range Interpretation [...] K/ L 0.00-0.20 (test code = 417) 0.76NHYCKBBCCD0508-72-41 11:36:000.1[facility] CfneghzLYNPJSZOVW2030-54-82 11:36:008.0[facility] ZeufxfoCAIYZMAWHD3619-36-39 11:36:0019.2[facility] [place] KMHWTLQOIO8429-55-35 11:36:0069.5[facility] VmvfyjwQXRPWURVFJ2879-67-09 11:36:00 2.3[facility] McnarwoOAUWFWBYLL7596-28-51 11:36:00 Test Item Value Reference Range Interpretation Comments PTT (test code = PTT) 35.1 s 22.9-35.8 [facility] RcaooveMCRGHNSYIM0726-28-25 11:36:001.09[facility]ann[facility]MATOLOGY 2015-07-01 11:36:00 Test Item Value Reference Range Interpretation Comments PT (test code = PT) 14.4 s 12.0-14.7 [facility] BpkakmaEPEGHXGONL7807-18-02 11:36:009.3[facility]annHEMATOLOGY 2015-07-01 11:36:003.21[facility] XisomovUJXWMVTFCD2919-59-98 11:36:006.3[facility] MoksnxqMZHHJLCQQW9479-89-00 11:36:0088.4[facility] BhidrmyWGVAIJVXWK4868-35-85 11:36:0028.4[facility] MyysxibKKWCROVGJX2143-30-19 11:36:95986Nnbozufa [place] RHFPOZYCJF0150-76-65 11:36:0014.9[facility] KbxhfrmWJHSVCLZHB1850-65-80 11:36:00 32.7[facility] PccaaphNVSJDLDEKX2670-14-51 11:36:00 Test Item Value Reference Range Interpretation Comments MCH (test code = MCH) 28.9 pg 27.0-31.0 [facility] OxeafpzPSVIXOJXQN9991-03-35 11:36:008.9[facility] HermannELECTROLYTES 2015-07-01 11:36:77257Hkudqiwq OzubxoqHNRQZNFOFSXD8995-56-47 11:36:0019[facility] CmnhqulJGGQHXDAQSWX2573-38-24 11:36:008.5[facility] BlfvzzvPDTHLABLPHIF5940-98-89 11:36:50891Wxdiydgl OlfgzfzJMIEDURUPTRP2822-76-01 11:36:50526Yaibhmio [place] WQKEODMXTBYD0711-05-53 11:36:004.6[facility] WraamteKVEBDCIHURTU4267-46-64 11:36:0050[facility] DtciyxvNTFJBVXITTLA5102-03-05 11:36:008.31[facility] [place] XQWOJHUVHTQB2084-79-38 11:36:006[facility] VvuhjddGYWIMANPASXU6977-12-03 11:36:00 14.6[facility] AicpcgzFTBCESZCSZ0084-30-47 11:36:001.2[facility]annHEMATOLOGY 2015-07-01 11:36:001.0[facility] WonumjpQVDCUEVPGL9152-70-34 11:36:004.4[facility] BvrbhjnEZMXZLSXBX8044-61-32 11:36:000.5[facility] HvfesxzUBJSSOPSNT2728-47-67 11:36:000.1[facility] KzlffcxAGMTPZLCSO7299-56-74 11:36:000.1[facility] [place] GQARLJVVWR5074-27-99 11:36:008.0[facility] XykkxxnPXGQPQVWKN2235-61-46 11:36:00 19.2[facility] WoxzchlWUJNXFEEDZ0906-79-38 11:36:0069.5[facility]annHEMATOLOGY 2015-07-01 11:36:002.3[facility] YoplktlIJUNLNYMGB8580-44-54 11:36:00 Test Item Value Reference Range Interpretation Comments PTT (test code = PTT) 35.1 s 22.9-35.8 [facility] UlrragkHIBBEBJPFM3482-93-95 11:36:001.09[facility]annHEMATOLOGY 2015-07-01 11:36:00 Test Item Value Reference Range Interpretation Comments PT (test code = PT) 14.4 s 12.0-14.7 [facility] TfxosrbNRJGNHDHSL7361-89-89 11:36:009.3[facility]annHEMATOLOGY 2015-07-01 11:36:003.21[facility] SljttcvGYBFXLXEIT1745-31-94 11:36:006.3[facility] FydxksiTJTZXPBQRD7737-38-49 11:36:0088.4[facility] WmdmpowAKBFRMTGGS2045-24-81 11:36:0028.4[facility] RbzbousZQVIEEETWU5676-72-12 11:36:28629Jyjvxwgw [place] WVMLWPIKQT0665-75-19 11:36:0014.9[facility] MddtsunLQEQZJUFEQ1519-81-14 11:36:00 32.7[facility] IsosdgvIZFRLOCTBE7374-73-57 11:36:00 Test Item Value Reference Range Interpretation Comments MCH (test code = MCH) 28.9 pg 27.0-31.0 [facility] FxdgzdsGSUKESJSNX1601-90-96 11:36:008.9[facility] HermannELECTROLYTES 2015-07-01 11:36:81766Zhzvimug FsnlzbuVYEGQFLXRDYD9197-66-31 11:36:0019[facility] KvtljfoXSWWZVUHCBJQ1081-84-27 11:36:008.5[facility] NcwfwhbSFKTHVTDLKNG2295-66-75 11:36:13068Rztqruia AgocyttPGJRRWMSPMYL6069-13-48 11:36:31129Nyanjyhu [place] WRRWHDNKRTHD2834-00-70 11:36:004.6[facility] RrolqpwFVDCISGFOAPD4025-22-56 11:36:0050[facility] EajrjybUKUESGJHCJPE8763-58-92 11:36:008.31[facility] VFQDALXAICZB5261-66-18 11:36:006[facility] AobftnfZIUCARKHTEFG8919-53-20 11:36:00 14.6[facility] BglqvguZWUVAVWVIK4102-84-98 11:36:001.2[facility]annHEMATOLOGY 2015-07-01 11:36:001.0[facility] GnapikfALCENSUNLZ2604-23-21 11:36:004.4[facility] SceqwdbARPLWLSJQQ6601-34-37 11:36:000.5[facility] TrizzujGYLRDDNEKV4992-92-23 11:36:000.1[facility] HermannCARDIAC DJQXFNM6920-74-91 17:02:000.10[facility] HermannCHEM SYUSE1558-18-26 17:02:58972Zrbeikxg HermannCHEM QTSJO1242-14-73 17:02:007[facility] HermannCHEM RGWGJ4515-11-84 17:02:005.4[facility] HermannCHEM WEQZV8072-97-81 17:02:000.3[facility] HermannCHEM TRMAR1354-90-86 17:02:0012.1 [facility]annCHEM UFXHC9625-99-65 17:02:007[facility]annCHEM PANEL 2015-06-17 17:02:0045[facility]annCHEM TIOXY9129-53-17 17:02:001.8[facility]annCHEM ENKMG1541-53-22 17:02:0037[facility]annCHEM AEFFP4695-35-34 17:02:000.3[facility]annCHEM XOVVW1902-82-02 17:02:0084[facility]annCHEM MKAZU1024-64-85 17:02:007.2[facility]annCHEM YKGJJ7138-64-65 17:02:008.4 [facility]annCHEM YIEPD9135-56-30 17:02:06255Zpasmatb HermannCHEM PANEL 2015-06-17 17:02:005.1[facility] HermannCHEM SCPBG8373-14-29 17:02:63319Qnwsznca HermannCHEM HELRF9091-25-57 17:02:0021[facility] HermannCHEM WXCNH9912-80-21 17:02:89416Aypxnlqn HermannCHEM MJJLD2674-23-59 17:02:007.50[facility] HermannCHEM KKCHG1840-20-18 17:02:0052[facility] IkgowkpULTJERCRGS4670-08-77 17:02:000.4 [facility] AhydbadBCEACAYXEP5871-11-90 17:02:000.0[facility] HermannHEMATOLOGY 2015-06-17 17:02:000.1[facility] PpmvikkJUSAKEPZCU1246-11-16 17:02:0027.3[facility] MispcjcJSQMIFYQIN7321-33-65 17:02:0065.3[facility] CwtcyfwYFJQTFBVSG7175-09-07 17:02:004.4[facility] CkujayiUPCXDLTWTZ4882-57-07 17:02:000.5[facility] [place] TYFNFIXVUJ7121-32-30 17:02:001.3[facility] TxqqvteUTGDRMEZDY0691-34-41 17:02:005.6 [facility] GffgqlaSMBFCTAFGW7643-13-83 17:02:001.9[facility]annHEMATOLOGY 2015-06-17 17:02:0028.8[facility] GmklvkyUXNSCHZFFP7371-02-38 17:02:009.3[facility] DphxnwqIPZSLRKPAS8264-04-56 17:02:003.24[facility] GwumwjeFEIJNABYKW9946-16-64 17:02:00 Test Item Value Reference Range Interpretation Comments MCH (test code = MCH) 28.8 pg 27.0-31.0 [facility] OopsadqYDWIKAJDUV2029-25-05 17:02:0088.8[facility] HermannHEMATOLOGY 2015-06-17 17:02:13515Oocbmrcr JvbhuigXNKGMKDODB9835-34-64 17:02:0015.2[facility] FxgpuzoVNDDZEEGMV5998-51-14 17:02:0032.4[facility] BqekbhvLNHLROBMNX5548-82-04 17:02:009.3[facility] QkjxvvnCZSGCTLISK3201-83-29 17:02:006.8[facility]annURINE AND IPAGY6624-81-75 17:02:00Yellow *NA*(06/17/15 12:02 PM)[facility] UAQIA3410-22-44 17:02:00Clear (06/17/15 12:02 PM)[facility] PNCFE1128-10-77 17:02:00Negative (06/17/15 12:02 PM)[facility] LWOEZ6117-53-99 17:02:000.2[facility] AND BEBCE7090-57-17 17:02:00 Moderate *ABN*(06/17/15 12:02 PM)[facility] AREGS6411-13-29 17:02:00Negative (06/17/15 12:02 PM)[facility] KGLXC2433-02-75 17:02:00Negative *NA*(06/17/15 12:02 PM)[facility] HZDLL3917-22-87 17:02:00Negative *NA*(06/17/15 12:02 PM)[facility] NANXC9694-94-09 17:02:00 Test Item Value Reference Range Interpretation Comments UA pH (test code = UA pH) 6.5 1 5.0-8.0 [facility] SBTKG6807-60-96 17:02:00 Test Item Value Reference Range Interpretation Comments UA Spec Grav (test code = UA Spec 1.020 1 Grav) [facility] DKXK2143-68-99 17:02:00Negative (06/17/15 12:02 PM)[facility] HermannCARDIAC LGWAJOH1213-68-29 17:02:000.10[facility] HermannCHEM PANEL 2015-06-17 17:02:97768Qgzjvogx HermannCHEM XAHLZ4846-74-10 17:02:007[facility]annCHEM YGXXB7815-48-01 17:02:005.4[facility] HermannCHEM EBCGT1215-34-68 17:02:000.3[facility] HermannCHEM PWBLI9089-15-86 17:02:0012.1[facility]annCHEM CIZWK0948-69-79 17:02:007[facility]annCHEM ENQHX7085-26-98 17:02:0045 [facility]annCHEM ZKKTR6123-95-45 17:02:001.8[facility] HermannCHEM PANEL 2015-06-17 17:02:0037[facility]annCHEM ZTUBP7237-06-11 17:02:000.3[facility]annCHEM QIRYJ2980-39-24 17:02:0084[facility]annCHEM CGEBD4204-33-66 17:02:007.2[facility]annCHEM PZBVX5452-41-49 17:02:008.4[facility] HermannCHEM DSKUA2387-40-88 17:02:48766Ecinbkjk [facility]annCHEM EVTFD2621-45-06 17:02:005.1 [facility]annCHEM TRWWS9466-15-36 17:02:34323Wgodjzcx [facility]annCHEM PANEL 2015-06-17 17:02:0021[facility]annCHEM TTQNJ9909-13-49 17:02:56790Vebligsd HermannCHEM ZKHPF0713-16-14 17:02:007.50[facility]annCHEM ODVPC0217-03-72 17:02:0052[facility] NagsoylSSOIQQXANF0159-54-37 17:02:000.4[facility] TSUBCJRLUS3237-98-69 17:02:000.0[facility] QmxnqudIATLRYRNPQ1546-62-95 17:02:000.1 [facility] NstqqmzNKPFYQECYQ6459-17-41 17:02:0027.3[facility]annHEMATOLOGY 2015-06-17 17:02:0065.3[facility] YftcjzyQBNBVAVUVQ8228-05-54 17:02:004.4[facility] NohvywxRLSRCMFRMO9522-97-39 17:02:000.5[facility] RozzcveWVQQPAHOBD0849-22-73 17:02:001.3[facility] RzogxqzTJCFOZJOIO3107-11-72 17:02:005.6[facility] UUIDQMMZZA9437-35-18 17:02:001.9[facility] IirzoseJLXMNCYUHH1406-23-14 17:02:00 28.8[facility] CovqzxbZDYGZSCSHG2335-22-57 17:02:009.3[facility]annHEMATOLOGY 2015-06-17 17:02:003.24[facility] HbbcwsgMLUQOFAGEX0629-63-97 17:02:00 Test Item Value Reference Range Interpretation Comments MCH (test code = MCH) 28.8 pg 27.0-31.0 [facility] PpiplssQMHYOLBTZL6210-10-03 17:02:0088.8[facility]annHEMATOLOGY 2015-06-17 17:02:31389Pnhiiape CddcwopYUXIDIACCP4097-03-27 17:02:0015.2[facility] YrzujheCREFCAXWLP2181-55-07 17:02:0032.4[facility] NyqhfnrRZOPBKSWOX5734-70-82 17:02:009.3[facility] AxkzdrjIVKVHCBCLP2338-11-52 17:02:006.8[facility]UR[facility] AND WGNTP8940-76-91 17:02:00Yellow *NA*(06/17/15 12:02 PM)[facility] OIDWZ2574-77-70 17:02:00Clear (06/17/15 12:02 PM)[facility] MPBLB4300-97-30 17:02:00Negative (06/17/15 12:02 PM)[facility] JSTCR5418-40-11 17:02:000.2[facility] LPCQQ3308-18-89 17:02:00 Moderate *ABN*(06/17/15 12:02 PM)[facility] FKVCO8346-85-65 17:02:00Negative (06/17/15 12:02 PM)[facility] THCQC5953-16-55 17:02:00Negative *NA*(06/17/15 12:02 PM)[facility] JJEBZ0947-89-42 17:02:00Negative *NA*(06/17/15 12:02 PM)[facility] BASXN3183-53-30 17:02:00 Test Item Value Reference Range Interpretation Comments UA pH (test code = UA pH) 6.5 1 5.0-8.0 [facility] DKWBH7256-14-39 17:02:00 Test Item Value Reference Range Interpretation Comments UA Spec Grav (test code = UA Spec 1.020 1 Grav) [facility] IDPA8315-50-62 17:02:00Negative (06/17/15 12:02 PM)[facility]annCHEM BHGNC0304-66-49 21:21:000.4[facility]annCHEM GISFM8541-21-00 21:21:0018[facility]annCHEM GLMFE6222-18-48 21:21:005.0[facility]annCHEM OPXHQ0404-75-88 21:21:0011.8[facility]annCHEM EJGYP2446-90-86 21:21:0049 [facility]annCHE[facility] QXDUE7314-42-64 21:21:82372Nimifdld HermannCHEM PANEL 2014-08-29 21:21:0027[facility]annCHEM CFIBZ0041-31-13 21:21:001.5[facility]annCHEM MMEZP2519-93-13 21:21:0022[facility]annCHEM XCFQY2892-14-39 21:21:008.7[facility]annCHEM WBVGZ4100-69-53 21:21:003.8[facility]annCHEM XVVXX8529-16-02 21:21:71241Vjoeypvb [facility]annCHE[facility] XKYSN3993-04-86 21:21:44562 [facility]annCHE[facility] BEKSD5686-98-87 21:21:0029[facility]annCHEM PANEL 2014-08-29 21:21:0061[facility]annCHEM CEGUE8465-54-81 21:21:001.9[facility]annCHEM BCDJZ5426-61-77 21:21:0039[facility]annCHEM TQNTL5597-67-74 21:21:006.9[facility]annCHEM NADTJ9734-57-98 21:21:000.3[facility] [place] CLBEDBXOSL6818-28-83 21:21:000.6[facility] GbfvzgzTWPBYEUQMX6066-72-68 21:21:001.9 [facility] DsoksruVKKOEITSAL8115-58-82 21:21:000.0[facility]annHEMATOLOGY 2014-08-29 21:21:000.0[facility] ZozuzohGNFSHRUGSF4736-94-42 21:21:000.1[facility] FypbptcDHSFHRRJGN0869-34-42 21:21:003.8[facility] KiifyzcTKHPKNUDBP1530-60-53 21:21:000.2[facility] ErwqfitAUSHCUABHW7662-94-59 21:21:0013.9[facility] XQYSTFKMJF9651-84-85 21:21:0084.1[facility] DfehvffYEDQRVKWFC8576-70-60 21:21:00 11.8[facility] DkftrdaZPPVUUSJGE9077-81-23 21:21:00 Test Item Value Reference Range Interpretation Comments PTT (test code = PTT) 32.7 s 22.9-35.8 [facility] WmrllhcMJANJKRJXI8025-96-25 21:21:00 Test Item Value Reference Range Interpretation Comments PT (test code = PT) 12.4 s 12.0-14.7 [facility] UsrlqzuOGGJPTSEGQ6787-04-04 21:21:000.93[facility]annHEMATOLOGY 2014-08-29 21:21:009.5[facility] MizigydWZRSWSFXET4332-59-16 21:21:0032.4[facility] SkkvwghGFRIEKEKFK1979-94-70 21:21:0014.2[facility] FpvzbldITYNYVOLKG1543-73-43 21:21:26176Saqeqerj LnvptjwRJRZLPQNYX1166-98-52 21:21:0087.9[facility] EMXTCHNQEB9575-58-28 21:21:0016.5[facility] XqaefsaJNWWWYCOSA7134-39-49 21:21:00 4.32[facility] NmxypgeBNQCPYXEZK4581-32-61 21:21:0012.3[facility]annHEMATOLOGY 2014-08-29 21:21:0037.9[facility] SdbfhurDSQUDNVSKY5015-50-75 21:21:00 Test Item Value Reference Range Interpretation Comments MCH (test code = MCH) 28.5 pg 27.0-31.0 [facility]annCHE[facility] AVQBR9373-70-41 21:21:000.4[facility] HermannCHEM PANEL 2014-08-29 21:21:0018[facility]annCHEM XOADZ6774-65-99 21:21:005.0[facility]annCHEM ATTCL6583-26-23 21:21:0011.8[facility]annCHEM DBCAU3735-91-34 21:21:0049[facility]annCHEM CJSBP6522-35-84 21:21:11422Nxggcwpc HermannCHEM BENGG9165-63-74 21:21:0027[facility]annCHEM PVFEG4310-48-09 21:21:001.5 [facility]annCHEM HFWMD7703-70-74 21:21:0022[facility]annCHEM PANEL 2014-08-29 21:21:008.7[facility]annCHEM HHYFL4808-90-20 21:21:003.8[facility]annCHEM ZZJCL8349-45-96 21:21:15764Pqttbbna HermannCHEM XHXIN2976-40-00 21:21:78906Sahinezk HermannCHEM NJZAP8274-22-31 21:21:0029[facility]annCHEM TXNJY2208-47-85 21:21:0061[facility]annCHEM DPFHO0457-59-08 21:21:001.9 [facility]annCHEM GOLAJ6588-54-04 21:21:0039[facility]annCHEM PANEL 2014-08-29 21:21:006.9[facility]annCHEM VHSBD3292-08-01 21:21:000.3[facility] AqzlxfjTNDIFNGEWK0535-25-06 21:21:000.6[facility] YsmkhnjKLOKFPARSB1535-18-79 21:21:001.9[facility] TdevryhTPGZTVCHBN8689-88-55 21:21:000.0[facility] QPVIOOYITH2704-67-09 21:21:000.0[facility] ZuewuwvYIFIHDEYJQ8462-24-84 21:21:000.1 [facility] QqnzxjoFGZACSYLMG0689-50-40 21:21:003.8[facility]annHEMATOLOGY 2014-08-29 21:21:000.2[facility] TgilydnQNKWNWRBFO5683-43-22 21:21:0013.9[facility] WbdehpaDXHZTAOQNL1422-51-81 21:21:0084.1[facility] VtpiugfBWEXZNVEXM9189-29-48 21:21:0011.8[facility] GstazywHFJWAMONLT8882-68-12 21:21:00 Test Item Value Reference Range Interpretation Comments PTT (test code = PTT) 32.7 s 22.9-35.8 [facility] FzrmwkdLMYWWDLQIH7723-19-17 21:21:00 Test Item Value Reference Range Interpretation Comments PT (test code = PT) 12.4 s 12.0-14.7 [facility] VwrkycwKWPHQISXCH1520-84-76 21:21:000.93[facility]annHEMATOLOGY 2014-08-29 21:21:009.5[facility] MihzusjDDPBEFPKUI2798-56-43 21:21:0032.4[facility] IwqupnxLTVFGSARTT1824-12-00 21:21:0014.2[facility] IvfxiptODVMMAJKPS6110-36-99 21:21:65640Swmnvuqe ExccntmOQZOYDLHRS5576-93-49 21:21:0087.9[facility] CRCEKHIDXU2870-58-72 21:21:0016.5[facility] CochpmlBGCONSDRCN3095-15-42 21:21:00 4.32[facility] EhgurbbGISOTBRYCW3448-74-05 21:21:0012.3[facility]annHEMATOLOGY 2014-08-29 21:21:0037.9[facility] SpbupobTVDPQKVLYP0815-75-00 21:21:00 Test Item Value Reference Range Interpretation Comments [facility] (test code = MCH) 28.5 pg 27.0-31.[address] [facility]
--- NOTE | 2020-06-03 08:48 | RAD REPORT ---
EXAM DESCRIPTION: CT - Head Brain Wo Cont - 06/03/2020 8:29 am CLINICAL HISTORY: Headache COMPARISON: 2017 TECHNIQUE: Computed axial tomography of the head was obtained. IV contrast was not requested. All CT scans are performed using dose optimization technique as appropriate and may include automated exposure control or mA/KV adjustment according to patient size. FINDINGS: Chronic deformity of the right globe. Abnormal density within the left globe unchanged ind icating pathology. An intracranial bleed is not seen . Stable prominence of the lateral ventricles. No extra-axial fluid collection is noted. Mild low-density areas within periventricular white matter may indicate ischemic changes secondary to small vessel disease. Fluid within the sinuses/ mastoids is not seen. IMPRESSION: No acute intracranial abnormality is seen. If patient's symptoms persist MRI of the bra in would be recommended.
[2020-06-03 08:56] LABS: Absolute Lymphocytes (CBC) 0.7 K/uL (0.7-4.9); Basophils % 0.6 % (0-1.3); Hematocrit 33.3 % (36.0-45.0); Lymphocytes % 12.2 % (15.3-44.8); MPV 9.1 fL (7.6-11.3); RBC Red Blood Cell Count 3.65 M/uL (3.86-4.86)
[2020-06-03 09:14] LABS: Potassium 4.2 mmol/L (3.5-5.1)
[2020-06-03] MEDS ORDERED: FENTANYL CITR 100 MCG/2 ML ONE ×2 (09:14→14:21)
[2020-06-03] MEDS ORDERED: ONDANSETRON 4 MG/2 ML VIAL ONE (09:14)
--- NOTE | 2020-06-03 09:52 | EDPHYS ---
Physician Documentation [facility] Name: Yamile Brooke Age: 50 yrs Sex: Female : 1970 Arrival Date: 06/03/2020 Time: 07:54 Bed 20 Private MD: ED Physician London Rodriguez HPI: 06/03 08:19 This 50 yrs old Black Female presents to ER via Wheelchair with complaints of Headache, kdr Vomiting. 08:19 The patient complains of pain to the forehead, right sikhism and left sikhism. The kdr patient describes the headache as aching, constant, a pressure, unrelenting. Onset: The symptoms/episode began/occurred yesterday, last night. Associated signs and symptoms: Pertinent positives: nausea, vomiting, Pertinent negatives: altered mental status, fever, malaise, neck stiffness, paresthesias, Photophobia rash, sinus congestion, sinus tenderness, vision changes, vision loss, vertigo. Severity of symptoms: At its worst the pain was severe, just prior to arrival, incapacitating. Headache History: The patient has had previous headaches and this one is similar to previous episodes. The symptoms are alleviated by nothing. the symptoms are aggravated by nothing. The patient has experienced similar episodes in the past, multiple times. The patient has not recently seen a physician. Historical: - Allergies: 08:19 tramadol; ss - PMHx: 08:19 ADD/ADHD; Anemia; CHF; Diabetes - NIDDM; Dialysis; Tues, Thurs, Sat; ESRD; ss Hyperlipidemia; Hypertension; right arm blood clots; right eye blindness; - PSHx: 08:19 Cholecystectomy; Hysterectomy; D \T\ C; ; ss - Immunization history:: Adult Immunizations up to date. - Social history:: Smoking status: Patient denies any tobacco usage or history of. ROS: 08:19 Constitutional: Negative for fever, chills, and weight loss, Eyes: Negative for injury, kdr pain, redness, and discharge, Neck: Negative for injury, pain, and swelling, Cardiovascular: Negative for chest pain, palpitations, and edema, Respiratory: Negative for shortness of breath, cough, wheezing, and pleuritic chest pain, Abdomen/GI: Negative for abdominal pain, nausea, vomiting, diarrhea, and constipation, Back: Negative for injury and pain, : Negative for injury, bleeding, discharge, and swelling, MS/Extremity: Negative for injury and deformity, Skin: Negative for injury, rash, and discoloration, Psych: Negative for depression, anxiety, suicide ideation, homicidal ideation, and hallucinations, Allergy/Immunology: Negative for hives, rash, and allergies, Endocrine: Negative for neck swelling, polydipsia, polyuria, polyphagia, and marked weight changes, Hematologic/Lymphatic: Negative for swollen nodes, abnormal bleeding, and unusual bruising. 08:19 Neuro: Positive for headache. Exam: 08:22 Constitutional: This is a well developed, well nourished patient who is awake, alert, kdr and in mild to mdoerate distress. Head/Face: Normocephalic, atraumatic. Eyes: Pupils equal round and reactive to light, extra-ocular motions intact. Lids and lashes normal. Conjunctiva and sclera are non-icteric and not injected. Cornea within normal limits. Periorbital areas with no swelling, redness, or edema. Neck: Trachea midline, no thyromegaly or masses palpated, and no cervical lymphadenopathy. Supple, full range of motion without nuchal rigidity, or vertebral point tenderness. No Meningismus. Chest/axilla: Normal chest wall appearance and motion. Nontender with no deformity. No lesions are appreciated. Cardiovascular: Regular rate and rhythm with a normal S1 and S2. No gallops, murmurs, or rubs. Normal PMI, no JVD. No pulse deficits. Respiratory: Lungs have equal breath sounds bilaterally, clear to auscultation and percussion. No rales, rhonchi or wheezes noted. No increased work of breathing, no retractions or nasal flaring. Abdomen/GI: Soft, non-tender, with normal bowel sounds. No distension or tympany. No guarding or rebound. No evidence of tenderness throughout. Back: No spinal tenderness. No costovertebral tenderness. Full range of motion. Skin: Warm, dry with normal turgor. Normal color with no rashes, no lesions, and no evidence of cellulitis. MS/ Extremity: Pulses equal, no cyanosis. Neurovascular intact. Full, normal range of motion. Neuro: Awake and alert, GCS 15, oriented to person, place, time, and situation. Cranial nerves II-XII grossly intact. Motor strength 5/5 in all extremities. Sensory grossly intact. Cerebellar exam normal. Normal gait. Psych: Awake, alert, with orientation to person, place and time. Behavior, mood, and affect are within normal limits. Vital Signs: 08:17 BP 190 / 112; Resp 18; Temp 97.6(TE); Pulse Ox 100% on R/A; Weight 72.57 kg; Height 5 ss ft. 8 in. (172.72 cm); Pain 9/10; 09:13 BP 149 / 87; Pulse 100; Resp 20; Pulse Ox 95% on 4 lpm NC; bw 10:52 BP 164 / 90; Pulse 106; Resp 20; Pulse Ox 99% on 1 lpm NC; bw 13:13 BP 167 / 91; Pulse 105; Resp 20; Pulse Ox 97% on R/A; bw 08:17 Body Mass Index 24.33 (72.57 kg, 172.72 cm) ss MDM: 09:51 Patient medically screened. kdr 13:56 Data reviewed: vital signs, nurses notes, lab test result(s), radiologic studies. kdr Counseling: I had a detailed discussion with the patient and/or guardian regarding: the historical points, exam findings, and any diagnostic results supporting the discharge/admit diagnosis, lab results, radiology results, the need for outpatient follow up. ED course: The patient states the she is feeling better but not yet well enough to go home. The patient had a spinal tap the lats time she aw seen for this problem. This is not the worse ERICKSON of her life and she denies LOC kenia other complicating factor. 06/03 08:19 Order name: CBC with Diff kdr 06/03 08:19 Order name: Chem 7 kdr 06/03 08:19 Order name: CT Head Brain wo Cont; Complete Time: 09:46 kdr 06/03 08:19 Order name: CBC with Automated Diff; Complete Time: 09:46 EDMS 06/03 08:19 Order name: Basic Metabolic Panel; Complete Time: 09:46 EDMS Administered Medications: 09:02 Drug: fentaNYL (PF) 25 mcg Route: IVP; Site: right antecubital; bw 10:01 Follow up: Response: RASS: Light sedation (-2) bw 09:02 Drug: Zofran (Ondansetron) 4 mg Route: IVP; Site: right antecubital; bw 10:01 Follow up: Response: No adverse reaction bw 10:51 Drug: TORadol - Ketorolac 15 mg Route: IVP; Site: right antecubital; bw 10:51 Drug: Reglan 20 mg Route: IVP; Site: right antecubital; bw 11:40 Drug: SOLU-Medrol 60 mg Route: IVP; Site: right antecubital; bw 14:07 Drug: fentaNYL (PF) 25 mcg Route: IVP; Site: right antecubital; bp Disposition: 06/03/20 14:54 Discharged to Home. Impression: Headache, End Stage Renal Disease. - Condition is Stable. - Discharge Instructions: General Headache Without Cause, Neuropathic Pain, Nausea and Vomiting, Adult, [id number]. - Prescriptions for Zofran 4 mg Oral Tablet - take 1 tablet by ORAL route every 4-6 hours As needed; 10 tablet. Tylenol- Codeine #3 300-30 mg Oral Tablet - take 1 tablet by ORAL route every 4-6 hours As needed; 6 tablet. - Medication Reconciliation Form, Thank You Letter form. - Follow up: Private Physician; When: 2 - 3 days; Reason: If symptoms return, Further diagnostic work-up, Recheck today's complaints, Continuance of care, Re-evaluation by your physician. Follow up: Livan Schofield MD; When: 2 - 3 days; Reason: If symptoms return, Further diagnostic work-up, Recheck today's complaints, Continuance of care, Re-evaluation by your physician. - Problem is an acute exacerbation. - Symptoms have improved. Signatures: Dispatcher [employer] EDAZ London Rodriguez MD MD kdr Smirch, Shelby, RN RN Heber Gandara RN RN bp Obdulia Marcos RN RN Corrections: (The following items were deleted from the chart) 09:52 09:51 06/03/2020 09:51 Discharged to Home. Impression: Superficial injury of head; kdr Vomiting. Condition is Stable. Forms are Medication Reconciliation Form, Thank You Letter, Antibiotic Education, Prescription Opioid Use. Follow up: Private Physician; When: 2 - 3 days; Reason: If symptoms return, Further diagnostic work-up, Recheck today's complaints, Continuance of care, Re-evaluation by your physician. Problem is new. Symptoms are unchanged. kdr 16:35 14:54 06/03/2020 14:54 Discharged to Home. Impression: Headache; End Stage Renal bw Disease. Condition is Stable. Forms are Medication Reconciliation Form, Thank You Letter, Antibiotic Education, Prescription Opioid Use. Follow up: Private Physician; When: 2 - 3 days; Reason: If symptoms return, Further diagnostic work-up, Recheck today's complaints, Continuance of care, Re-evaluation by your physician. Follow up: A Schofield; When: 2 - 3 days; Reason: If symptoms return, Further diagnostic work-up, Recheck today's complaints, Continuance of care, Re-evaluation by your physician. Problem is an acute exacerbation. Symptoms have improved. kdr
--- NOTE | 2020-06-03 09:52 | ER ---
Nurse's Notes [facility] Name: Yamile Brooke Age: 50 yrs Sex: Female : 1970 Arrival Date: 06/03/2020 Time: 07:54 Bed 20 Private MD: Diagnosis: Headache;End Stage Renal Disease Presentation: 06/03 08:17 Chief complaint: Patient states: ERICKSON, N/V that began last night. Coronavirus screen: ss Client denies travel out of the [place] in the last 14 days. Ebola Screen: Patient denies exposure to infectious person. Patient denies travel to an Ebola-affected area in the 21 days before illness onset. Risk Assessment: Do you want to hurt yourself or someone else? Patient reports no desire to harm self or others. Onset of symptoms was June 02, 2020. 08:17 Method Of Arrival: Wheelchair ss 08:17 Acuity: ARIE 3 ss Historical: - Allergies: 08:19 tramadol; ss - PMHx: 08:19 ADD/ADHD; Anemia; CHF; Diabetes - NIDDM; Dialysis; Tues, Thurs, Sat; ESRD; ss Hyperlipidemia; Hypertension; right arm blood clots; right eye blindness; - PSHx: 08:19 Cholecystectomy; Hysterectomy; D \T\ C; ; ss - Immunization history:: Adult Immunizations up to date. - Social history:: Smoking status: Patient denies any tobacco usage or history of. Screenin:13 Abuse screen: Denies threats or abuse. Nutritional screening: No deficits noted. bw Tuberculosis screening: No symptoms or risk factors identified. Fall Risk None identified. Assessment: 09:13 General: Appears uncomfortable, Behavior is cooperative, appropriate for age, anxious. bw Pain: Complains of pain in left quaker and right quaker and forehead. Neuro: Reports headache. Cardiovascular: No deficits noted. Respiratory: No deficits noted. GI: Reports nausea, vomiting. : No deficits noted. EENT: No deficits noted. Derm: No deficits noted. Musculoskeletal: No deficits noted. 09:23 Reassessment: pt creatine level critical 7.34. Reported to Dr. Rodriguez. Pt a dialysis bw patient. 10:00 Reassessment: pt o2 dropped to 79. o2 3L NC placed. Pt o2 now 98%. bw 10:52 Reassessment: complains of pain to head. aware. orders received. bw 12:00 Reassessment: Patient and/or family updated on plan of care and expected duration. Pain bw level reassessed. Patient is alert, oriented x 3, equal unlabored respirations, skin warm/dry/pink. 13:12 Reassessment: Patient and/or family updated on plan of care and expected duration. Pain bw level reassessed. Patient is alert, oriented x 3, equal unlabored respirations, skin warm/dry/pink. 14:30 Reassessment: Patient appears in no apparent distress at this time. Patient and/or bw family updated on plan of care and expected duration. Pain level reassessed. Patient is alert, oriented x 3, equal unlabored respirations, skin warm/dry/pink. 15:30 Reassessment: Patient appears in no apparent distress at this time. Patient and/or bw family updated on plan of care and expected duration. Pain level reassessed. Patient is alert, oriented x 3, equal unlabored respirations, skin warm/dry/pink. Vital Signs: 08:17 BP 190 / 112; Resp 18; Temp 97.6(TE); Pulse Ox 100% on R/A; Weight 72.57 kg; Height 5 ss ft. 8 in. (172.72 cm); Pain 9/10; 09:13 BP 149 / 87; Pulse 100; Resp 20; Pulse Ox 95% on 4 lpm NC; bw 10:52 BP 164 / 90; Pulse 106; Resp 20; Pulse Ox 99% on 1 lpm NC; bw 13:13 BP 167 / 91; Pulse 105; Resp 20; Pulse Ox 97% on R/A; bw 08:17 Body Mass Index 24.33 (72.57 kg, 172.72 cm) ss ED Course: 07:54 Patient arrived in ED. as 08:03 London Rodriguez MD is Attending Physician. kdr 08:18 Triage completed. ss 08:19 Arm band placed on right wrist. ss 08:29 CT Head Brain wo Cont In Process Unspecified. EDMS 08:44 Inserted saline lock: 22 gauge in right antecubital area, using aseptic technique. ss Blood collected. 08:54 Obdulia Marcos RN is Primary Nurse. bw 09:13 Patient has correct armband on for positive identification. Bed in low position. Call light in reach. Side rails up X2. monitor car operator on. Pulse ox on. NIBP on. Warm blanket given. 09:13 No provider procedures requiring assistance completed. Inserted saline lock: 22 gauge bw in right antecubital area, using aseptic technique. 10:44 Chem 7 Sent. bw 10:44 CBC with Diff Sent. bw 14:54 Livan Schofield MD is Referral Physician. kdr Administered Medications: 09:02 Drug: fentaNYL (PF) 25 mcg Route: IVP; Site: right antecubital; bw 10:01 Follow up: Response: RASS: Light sedation (-2) bw 09:02 Drug: Zofran (Ondansetron) 4 mg Route: IVP; Site: right antecubital; bw 10:01 Follow up: Response: No adverse reaction bw 10:51 Drug: TORadol - Ketorolac 15 mg Route: IVP; Site: right antecubital; bw 10:51 Drug: Reglan 20 mg Route: IVP; Site: right antecubital; bw 11:40 Drug: SOLU-Medrol 60 mg Route: IVP; Site: right antecubital; bw 14:07 Drug: fentaNYL (PF) 25 mcg Route: IVP; Site: right antecubital; bp Outcome: 09:51 Discharge ordered by . kdr 14:54 Discharge ordered by . kdr 16:35 Patient left the ED. bw Signatures: Dispatcher [employer] EDMS London Rodriguez MD MD kdr Martinez, Amelia as Smirch, Shelby, RN RN ss Peltier, Brian, RN RN bp Webb, Bethany, RN RN bw
[2020-06-03] MEDS ORDERED: METOCLOPRAMIDE 10 MG/2mL INJ ONE (11:04)
[2020-06-03] MEDS ORDERED: KETOROLAC 30 MG/ML INJ ONE (11:04)
[2020-06-03] MEDS ORDERED: METHYLPREDNISOLONE 125 MG INJ ONE (11:55)
[2020-06-03 17:03] VITALS: TEMP 97.6
[2020-06-03 17:07] VITALS: BP 167/91; O2SAT 97
== END 2020-06-03 16:35 | disposition home or self-care (01) ==
LOC: ER 07:52
DX: R51.9 Headache, unspecified (principal); E11.22 Type 2 diabetes mellitus with diabetic chronic kidney disease; I13.2 Hypertensive heart and chronic kidney disease with heart failure and with stage 5 chronic kidney disease, or end stage renal disease; N18.6 End stage renal disease; Z99.2 Dependence on renal dialysis; F90.9 Attention-deficit hyperactivity disorder, unspecified type; D63.1 Anemia in chronic kidney disease; I50.9 Heart failure, unspecified; E78.5 Hyperlipidemia, unspecified; Z86.718 Personal history of other venous thrombosis and embolism; H54.61 Unqualified visual loss, right eye, normal vision left eye
CPT/HCPCS: 85025; 80048; 36415; 70450; 96375; 96374; 99284; J2765; J3010 ×2; J2930; J2405

== ENCOUNTER 2020-06-09 06:27 | Inpatient (IN) | payer OTHER ==
--- OUTSIDE RECORDS SUMMARY | 2020-06-09 06:36 | XMS REPORT | Continuity of Care Document ---
:1970 Author Organization [facility] t Address [address] [place] [address] Care Team Providers Name Role Phone UNKNOWN [...] Expiration Date Sour ce Number MEDICAREMEDICARE A [id number] [facility] [id number] - M edical for all datesMedicare Simin ter MEDICAIDMEDICAID OF [id number] 2017 [facility] [id number] 00:00:00 - Medical -PresentMedicaid Center Problems Condition Condition Condition Status Onset Resolution Last Treating Co mments Source Name Details Category Date Date Treatment Clinician Date PERFORATED Diagnosis Active 2019-04-19 Memoria CORNEAL 2 11:44:00 l ULCER, 00:00: [place] LEFT EYE PERFORATED 00 CORNEAL ULCER, LEFT EYE Active 04/18/2019 [facility] Anemia Anemia Disease Active 2016-[address] [facility] [facility] - [facility] 00 Ward Hydrocepha Hydrocepha Disease Active 2016-[address] [facility] eliot 2-14 [facility] - [facility] Medical 00 Ward History of History of Disease Active 2016-[address] DVT (deep DVT (deep 2-13 [facility] - vein vein 00:00: Medical thrombosis thrombosis 00 Ce nter ) ) Headache Headache Disease [facility] 2016[facility] 00 Ward Dizziness Dizziness Disease Active 2016-[address] [facility] [facility] - 00[facility] Medical 00 Ward Nausea & Nausea & Disease Active 2016-03 [facility] - [facility]: Medical 00 Ward AVF AVF Disease Active 2016-03 Overview: [facility] [...] 2015-08-05 Memoria 08-04 17:41:00 l NOSE 00:00: [place] BLEED 00 Active 08/05/2015 [facility] [place] UNK Diagnosis Active 2015-08-21 Mem oria 06-28 14:28:00 l UNK 00:00: [place] 00 Active 06/29/2015 [facility] VOMITING/C Diagnosis Active 2015-06-17 Memoria HILLS 06-16 12:30:00 l 00:00: Yov[place] VOMITING/C 00 HILLS Active 06/17/2015 [facility] VOMITING Diagnosis Active 2014-09-01 M emoria 08-29 13:41:00 l VOMITING 00:00: Myles n 00 Active 08/29/2014 [facility] CAD CAD Disease Active Overview: [facility] [...] He rmann mellitus (disorder) Resolved Problem 04/21/2019 [facility], Tavia,[facility], KAYLYN Squires,[facility] History of Problem Resolve 2019-04-21 Memoria - migraine d 23:42:23 l (context-d History Her hollis ependent of - category) migraine (context-d ependent category) Resolved Problem 04/21/2019 [facility] Heartburn Problem Resolve 2019-04-21 M emoria (finding) d 23:42:23 l Yovani Heartburn (finding) Resolved Problem 04/21/2019 [facility], Tavia,[facility], KAYLYN [place] Hypertensi Problem Resolve 2019-04-21 Memoria ve d 23:42:23 l disorder, Yovani systemic Hypertensi arterial ve (disorder) disorder, systemic arterial (disorder) Resolved Problem 04/21/2019 [facility], Sara Squires [facility], KAYLYN Tavia,M Marisela [facility] Dyspnea Problem Resolve 2019-04-21 Mem oria (finding) d 23:42:23 l Dyspnea Yovani (finding) Resolved Problem 04/21/2019 [facility], Tavia,Sara [place], KAYLYN Squires History of Past Illness Condition Condition Condition Status Onset Resolution Last Treating Co mments Source Name Details Category Date Date Treatment Clinician Date Discharge Problem 2015-06-20 2015-06-20 Memoria Diagnosis: 4- 03:51:39 03:51:39 l N&V 05:00: Yovani (nausea Discharge 00 and Diagnosis: vomiting) N&V (nausea and vomiting) 06/17/2015 06/20/2015 [facility] Discharge Problem 2014-09-01 2014-09-01 Memoria Diagnosis: 6-19 11:15:55 11:15:55 l Acute 05:00: Yovani headache Discharge 00 Diagnosis: Acute headache 5 09/01/2014 [facility] Allergies, Adverse Reactions, Alerts Allergy Allergy Status Severity Reaction(s) Onset Inactive Treating Comm ents Source Name Type Date Date Clinician Tramadol Drug Active Nausea And [address] [facility] Vomiting, 3[facility]27 [facility] - nce Other (See 00:00: Medica l Comments) 00 Center No Known DA Active U 2004-0 [facility] 5[facility]18 [facility] Intolera 00:00: d n[facility] No Known DA Active U 2004-0 [facility] Contrast 5-18 [facility] Allergie 00:00: d [facility] No Known DA Active U 2004-0 [facility] Drug 5-18 [place] Allergie 00:00: d [facility] No Known DA Active U 2004-0 [facility] Food 5-18 [facility] Allergie 00:00: d [facility] No Known DA Active U 2004-0 [facility] Other 5-18 [place] Allergie 00:00: d [facility] traMADol traMADol Active Alex Pina Social History Social Habit Start Date Stop Date Quantity Comments Source Sex Assigned At [facility] Tobacco use and 2019-07-24 2019-07-24 Never used [facility] - exposure 00:00:00 00:00:00 Medical Center Alcohol intake 2019-07-24 2019-07-[address] [facility] [address] [place] es - 00:00:00 00:00:00 non-drinker of Medical Ce nter alcohol (finding) Social History 2015-06-30 2015-06-30 [facility] 18:17:45 18:17:45 Smoking Status Start Date Stop Date Source Never smoker [facility] Medications Ordered Filled Start Stop Current Ordering Indication Dosage Frequency Signature Comments Components Source Medication Medication Date Date Medication? Clinician (SIG) Name Name Hydralazine 2020-0 No 10 mg, Juan Manuel héctor - Route: l 21:10: IVP, Yovani 00 Q20Min, Dosing Weight 70.9, kg, PRN Elevated BP, Start date: 04/19/19 15:10:00 PNEUMATIC RIVETER, Duration: 2 doses or times, Stop date: Limited # of times Labetalol 2020-0 No 10 mg, Memori a 04-19 Route: l 21:10: IVP, [place] 00 Q5Min, Dosing Weight 70.9, kg, PRN Elevated BP, Start date: 04/19/19 15:10:00 PNEUMATIC RIVETER, Duration: 5 doses or times, Stop date: Limited # of times Acetaminoph 2020-0 No 1,000 mg, M emoria en 04-19 Route: PO, l 21:10: Drug form: Yovani 00 TAB, ONCE, Dosing Weight 70.9, kg, PRN Pain Score 1-3, Start date: 04/19/19 15:10:00 PNEUMATIC RIVETER Oxycodone 2020-0 No 5 mg, Memoria Hydrochlori 04-19 Route: PO, l de 5 MG 21:10: Drug form: Herm fabricio Oral Tablet 00 TAB, Q4H, Dosing Weight 70.9, kg, PRN Pain Score 4-6, Start date: 04/19/19 15:10:00 PNEUMATIC RIVETER, Duration: 30 day, Stop date: 05/19/19 15:09:00 CDT Hydromorpho 2020-0 No 0.5 mg, Mem oria ne 04-19 Route: l 21:10: IVP, [place] 00 Q5Min, Dosing Weight 70.9, kg, PRN Pain Score 7-10, Start date: 04/19/19 15:10:00 PNEUMATIC RIVETER, Duration: 4 doses or times, Stop date: Limited # of times Flumazenil 2020-0 No 0.2 mg, Juan Manuel héctor 2-07 Route: l 21:10: IVP, PRN, Yovani 00 Dosing Weight 70.9, kg, PRN Benzodiaze pine Reversal, Initial dose, Start date: 04/19/19 15:10:00 PNEUMATIC RIVETER, Duration: 30 day, Stop date: 05/19/19 16:09:00 CDT Naloxone 2020-0 No 0.4 mg, Memori a 2- Route: l 21:10: IVP, [place] 00 Q2MIN, Dosing Weight 70.9, kg, PRN Narcotic Reversal, Start date: 04/19/19 15:10:00 PNEUMATIC RIVETER, Duration: 8 doses or times, Stop date: Limited # of times Ondansetron 2020-0 No 4 mg, Memor ia 2- Route: l 21:10: IVP, ONCE, [place] 00 Dosing Weight 70.9, kg, PRN Nausea & Vomiting, Start date: 04/19/19 15:10:00 PNEUMATIC RIVETER Hydralazine 2020-0 No 10 mg, Juan Manuel héctor 2- Route: l 21:10: IVP, Yovani 00 Q20Min, Dosing Weight 70.9, kg, PRN Elevated BP, Start date: 04/19/19 15:10:00 PNEUMATIC RIVETER, Duration: 2 doses or times, Stop date: Limited # of times Labetalol 2020-0 No 10 mg, Memori a 2- Route: l 21:10: IVP, [place] 00 Q5Min, Dosing Weight 70.9, kg, PRN Elevated BP, Start date: 04/19/19 15:10:00 PNEUMATIC RIVETER, Duration: 5 doses or times, Stop date: Limited # of times Acetaminoph 2020-0 No 1,000 mg, M emoria en 2- Route: PO, l 21:10: Drug form: Yovani 00 TAB, ONCE, Dosing Weight 70.9, kg, PRN Pain Score 1-3, Start date: 04/19/19 15:10:00 PNEUMATIC RIVETER Oxycodone 2020-0 No 5 mg, Memoria Hydrochlori 2-07 Route: PO, l de 5 MG 21:10: Drug form: Herm fabricio Oral Tablet 00 TAB, Q4H, Dosing Weight 70.9, kg, PRN Pain Score 4-6, Start date: 04/19/19 15:10:00 PNEUMATIC RIVETER, Duration: 30 day, Stop date: 05/19/19 15:09:00 CDT Hydromorpho 2020-0 No 0.5 mg, Mem oria ne 2- Route: l 21:10: IVP, [place] 00 Q5Min, Dosing Weight 70.9, kg, PRN Pain Score 7-10, Start date: 04/19/19 15:10:00 PNEUMATIC RIVETER, Duration: 4 doses or times, Stop date: Limited # of times Flumazenil 2020-0 No 0.2 mg, Juan Manuel héctor 04-19 Route: l 21:10: IVP, PRN, Yovani 00 Dosing Weight 70.9, kg, PRN Benzodiaze pine Reversal, Initial dose, Start date: 04/19/19 15:10:00 PNEUMATIC RIVETER, Duration: 30 day, Stop date: 05/19/19 16:09:00 CDT Naloxone 2020-0 No 0.4 mg, Memori a 04-19 Route: l 21:10: IVP, Yovani 00 Q2MIN, Dosing Weight 70.9, kg, PRN Narcotic Reversal, Start date: 04/19/19 15:10:00 PNEUMATIC RIVETER, Duration: 8 doses or times, Stop date: Limited # of times Ondansetron 2020-0 No 4 mg, Memor ia 04-19 Route: l 21:10: IVP, ONCE, Dosing Weight 70.9, kg, PRN Nausea & Vomiting, Start date: 04/19/19 15:10:00 PNEUMATIC RIVETER ondansetron 2019-0 No Route: IV, Memoria (ANES) - Drug form: l 20:55: INJ, ONCE, Stop date: 04/19/19 14:55:00 PNEUMATIC RIVETER glycopyrrol 2019-0 No Route: IV, Memoria ate (ANES) - Drug form: l 20:55: INJ, ONCE, Stop date: 04/19/19 14:55:00 PNEUMATIC RIVETER neostigmine 2019-0 No Route: IV, Memoria (ANES) - Drug form: l 20:55: INJ, ONCE, Stop date: 04/19/19 14:55:00 PNEUMATIC RIVETER ondansetron 2020-0 No Route: IV, Memoria (ANES) 2- Drug form: l 20:55: INJ, ONCE, Stop date: 04/19/19 14:55:00 PNEUMATIC RIVETER glycopyrrol 2019-0 No Route: IV, Memoria ate (ANES) 04-19 Drug form: l 20:55: INJ, ONCE, Stop date: 04/19/19 14:55:00 PNEUMATIC RIVETER neostigmine 2019-0 No Route: IV, Memoria (ANES) 2- Drug form: l 20:55: INJ, ONCE, Stop date: 04/19/19 14:55:00 PNEUMATIC RIVETER dexamethaso 2019-0 No Route: IV, Memoria ne (ANES) 2- Drug form: l 20:27: INJ, ONCE, Stop date: 04/19/19 14:27:00 PNEUMATIC RIVETER dexamethaso 2020-0 No Route: IV, Memoria ne (ANES) 2- Drug form: l 20:27: INJ, ONCE, Stop date: 04/19/19 14:27:00 PNEUMATIC RIVETER lidocaine 2020-0 No Route: IV, Me moria (ANES) 2- Drug form: l 20:22: INJ, ONCE, Stop date: 04/19/19 14:22:00 PNEUMATIC RIVETER propofol 2020-0 No Route: IV, Mem oria (ANES) 2- Drug form: l 20:22: INJ, ONCE, Stop date: 04/19/19 14:22:00 PNEUMATIC RIVETER rocuronium 2020-0 No Route: IV, M emoria (ANES) 2- Drug form: l 20:22: INJ, ONCE, Stop date: 04/19/19 14:22:00 PNEUMATIC RIVETER fentaNYL 2020-0 No Route: IV, Mem oria (ANES) 2- Drug form: l 20:22: INJ, ONCE, Stop date: 04/19/19 14:22:00 PNEUMATIC RIVETER ePHEDrine 2020-0 No Route: IV, Me moria (ANES) 2- Drug form: l 20:22: INJ, ONCE, Stop date: 04/19/19 14:22:00 PNEUMATIC RIVETER phenylephri 2020-0 No Route: IV, Memoria ne (ANES) 2- Drug form: l 20:22: INJ, ONCE, Stop date: 04/19/19 14:22:00 PNEUMATIC RIVETER lidocaine 2020-0 No Route: IV, Me moria (ANES) 2- Drug form: l 20:22: INJ, ONCE, Stop date: 04/19/19 14:22:00 PNEUMATIC RIVETER propofol 2020-0 No Route: IV, Mem oria (ANES) 2- Drug form: l 20:22: INJ, ONCE, Stop date: 04/19/19 14:22:00 PNEUMATIC RIVETER rocuronium 2020-0 No Route: IV, M emoria (ANES) 2- Drug form: l 20:22: INJ, ONCE, Stop date: 04/19/19 14:22:00 PNEUMATIC RIVETER fentaNYL 2020-0 No Route: IV, Mem oria (ANES) 2- Drug form: l 20:22: INJ, ONCE, Stop date: 04/19/19 14:22:00 PNEUMATIC RIVETER ePHEDrine 2020-0 No Route: IV, Me moria (ANES) 2- Drug form: l 20:22: INJ, ONCE, Stop date: 04/19/19 14:22:00 PNEUMATIC RIVETER phenylephri 2020-0 No Route: IV, Memoria ne (ANES) 2- Drug form: l 20:22: INJ, ONCE, Stop date: 04/19/19 14:22:00 PNEUMATIC RIVETER Sodium 2020-0 No Route: IV, Memor ia Chloride 2-07 Total l 0.9% IV 19:17: Volume: Yovani (ANES) 500 00 500, Start mL date: 04/19/19 13:17:00 PNEUMATIC RIVETER, Stop date: 04/19/19 14:17:00 PNEUMATIC RIVETER Sodium 2020-0 No Route: IV, Memor ia Chloride 2-07 Total l 0.9% IV 19:17: Volume: Yovani (ANES) 500 00 500, Start mL date: 04/19/19 13:17:00 PNEUMATIC RIVETER, Stop date: 04/19/19 14:17:00 PNEUMATIC RIVETER Home 2020-0 Yes Refill(s) Memoria Medication 2-07 0 l 18:38: Yovani 00 gabapentin 2020-0 Yes PO, 0 Memori a 2-07 Refill(s) l 18:38: [place] 00 Home 2020-0 Yes Refill(s) Memoria Medication 2-07 0 l 18:38: [place] 00 gabapentin 2020-0 Yes PO, 0 Memori a 2-07 Refill(s) l 18:38: Yovani 00 calcitriol 2016-03 Yes .25ug QD Take 0.[address] (ROCALTROL) 2-15 mcg by [facility] - 0.25 MCG 07:04: mouth Medical capsule 06 daily. Ward valsartan 2016-03 Yes 160mg QD Take [address] (DIOVAN) 2-15 mg by [facility] - 160 MG 07:04: mouth Medical tablet 06 daily. Ward apixaban 2016-03 Yes 5mg Q.5D Take 5 [...] by mouth [facility] - 00:00: daily . [address] Hydromorpho No 0.3 mg, Mem oria [...] 4-20 Rate: 25 l 0.0014 15:21: ml/hr, [place] MEQ/ML / 00 Infuse Potassium over: 40 Chloride hr, Route: 0.004 IV, Dosing MEQ/ML / Weight Sodium 94.119 kg, Chloride Total 0.103 Volume: MEQ/ML / 1,000, Sodium Start Lactate date: 0.028 07/01/15 MEQ/ML 10:21:00 Injectable CDT, Solution Duration: 30 day, Stop date: 07/31/15 10:20:00 CDT Ancef 2016-0 No Notes: Memoria 4-20 Same as: l 12:00: Ancef [place] Vancomycin 2015-0 No 2000 mg: Me moria 4-20 infuse l 12:00: over 2.5 [place] 00 hours MEDICATION WASTE Product Size: 1000 [...] tab, PO, l Coated 18:20: Daily, # [place] Tablet 00 90 tab, 3 Refill(s) Aspirin [...] tab, PO, l Tablet 18:19: Daily, 0 [place] 00 Refill(s) NovoLOG 2015-0 Yes SUB-Q, Memoria 70/30 4-19 ONCE, 0 l 18:19: Refill(s) Hydralazine 0 Yes 0 Memori a 4-19 Refill(s) l 18:19: [place] metoprolol 2016-0 Yes BID, 0 Memor ia tartrate 4-19 Refill(s) l 18:19: Yovani 00 Ondansetron 2016-0 Yes 8 mg = 1 Me moria 8 MG Oral 4-19 tab, PO, l Tablet 18:19: BID, 0 Yovani [Zofran] 00 Refill(s) Furosemide 0 Yes 40 mg = 1 Me moria 40 MG Oral 4-19 tab, PO, l Tablet 18:19: Daily, 0 [place] 00 Refill(s) Ondansetron 2016-0 Yes 8 mg [...] Chloride 06-16 1,000 l 0.154 16:40: ml/hr, [place] MEQ/ML 00 Infuse Injectable Over: 1 Solution [...] Notes: Memoria 06-16 (Same l 16:40: as:MORPhin [place] 00 e Sulfate) Sodium No 1,000 mL, Memori a Chloride 06-16 1,000 l 0.154 16:40: ml/hr, [place] MEQ/ML 00 Infuse Injectable Over: 1 Solution [...] Memoria 6-19 (Same as: l 20:38: Benadryl) [place] 00 Sodium No 1,000 mL, Memori a Chloride 6-19 1,000 l 0.154 20:38: ml/hr, [place] MEQ/ML 00 Infuse Injectable Over: 1 Solution [...] Chloride 6-19 1,000 l 0.154 20:38: ml/hr, [place] MEQ/ML 00 Infuse Injectable Over: 1 Solution hr, Route: IV, 1,000, Drug form: INJ, ONCE, Priority: STAT, Dosing Weight 86.364 kg, Start date: 08/29/14 15:38:00, Duration: 1 doses or times, Stop date: 08/29/14 15:38:00 Reglan 2015-0 No Notes: Memoria - (Same as: l 20:38: Reglan) Yovani 00 Vital Signs Vital Name Observation Time Observation Value Comments Source Body height 2019-07-05 11:48:00 172.7 cm [facility] Body weight 2019-07-05 11:48:00 68.04 kg [facility] BMI 2019-07-05 11:48:00 22.81 kg/m2 [facility] Respitory Rate 2019-04-19 21:57:00 Memori al [place] Systolic (mm Hg) 2019-04-19 21:57:00 Juan Manuel rial [place]ov[place] Diastolic (mm Hg) 2019-04-19 21:57:00 Mem orial [place] Respitory Rate 2019-04-19 21:45:00 Memori al [place] Systolic (mm Hg) 2019-04-19 21:45:00 Juan Manuel rial [place] Diastolic (mm Hg) 2019-04-19 21:45:00 Mem orial [place] Respitory Rate 2019-04-19 21:30:00 Memori al [place] Systolic (mm Hg) 2019-04-19 21:30:00 Juan Manuel rial [place] Diastolic (mm Hg) 2019-04-19 21:30:00 Mem orial [place] Heart Rate 2019-04-19 18:39:00 [facility] [place] Height 2019-04-19 18:24:00 170.18 cm [facility] [place] Weight 2019-04-19 18:24:00 [facility] [place] BMI Calculated 2019-04-19 18:24:00 Memori al [place] BMI Calculated 2015-08-05 22:10:00 Memori al [place] Height 2015-08-05 22:10:00 172.72 cm [facility] [place] Weight 2015-08-05 22:10:00 [facility] [place] Temperature Oral (F) 2015-08-05 22:10:00 97.7 F [facility] [place] Heart Rate 2015-08-05 22:10:00 [facility] [place] Respitory Rate 2015-08-05 22:10:00 Memori al [place] Systolic (mm Hg) 2015-08-05 22:10:00 Juan Manuel rial [place] Diastolic (mm Hg) 2015-08-05 22:10:00 Mem orial [place] Respitory Rate 2015-07-01 23:00:00 Memori al [place] Systolic (mm Hg) 2015-07-01 23:00:00 Juan Manuel rial [place] Diastolic (mm Hg) 2015-07-01 23:00:00 Mem orial [place] Respitory Rate 2015-07-01 22:45:00 Memori al [place] Systolic (mm Hg) 2015-07-01 22:45:00 Juan Manuel rial [place] Diastolic (mm Hg) 2015-07-01 22:45:00 Mem orial [place] Systolic (mm Hg) 2015-07-01 22:15:00 Juan Manuel rial [place] Diastolic (mm Hg) 2015-07-01 22:15:00 Mem orial [place] Respitory Rate 2015-07-01 22:15:00 Memori al [place] Temperature Oral (F) 2015-07-01 12:08:00 98.2 F [facility] [place] Heart Rate 2015-07-01 12:08:00 [facility] [place] BMI Calculated 2015-06-30 18:01:00 Memori al [place] Height 2015-06-30 18:01:00 170.18 cm [facility] [place] Weight 2015-06-30 18:01:00 [facility] [place] Heart Rate 2015-06-17 18:10:00 [facility] [place] Temperature Oral (F) 2015-06-17 18:10:00 98.0 F [facility] [place] Respitory Rate 2015-06-17 18:10:00 Memori al [place] Systolic (mm Hg) 2015-06-17 18:10:00 Juan Manuel rial [place] Diastolic (mm Hg) 2015-06-17 18:10:00 Mem orial [place] Weight 2015-06-17 16:43:00 [facility] [place] Heart Rate 2015-06-17 16:43:00 [facility] [place] Respitory Rate 2015-06-17 16:43:00 Memori al [place] Systolic (mm Hg) 2015-06-17 16:43:00 Juan Manuel rial [place] Diastolic (mm Hg) 2015-06-17 16:43:00 Mem orial Yov[place] BMI Calculated 2015-06-17 16:43:00 Memori al [place] Height 2015-06-17 16:43:00 172.72 cm [facility] [place] Temperature Oral (F) 2015-06-17 16:43:00 98.2 F [facility] [place] Systolic (mm Hg) 2014-08-29 23:51:00 Juan Manuel rial [place] Diastolic (mm Hg) 2014-08-29 23:51:00 Mem orial [place] Temperature Oral (F) 2014-08-29 23:51:00 98.3 F [facility] [place] Heart Rate 2014-08-29 23:51:00 [facility] [place] Respitory Rate 2014-08-29 23:51:00 Memori al Yov[place] Respitory Rate 2014-08-29 22:20:00 Memori al [place] Heart Rate 2014-08-29 22:20:00 [facility] [place] Systolic (mm Hg) 2014-08-29 22:20:00 Juan Manuel rial [place] Diastolic (mm Hg) 2014-08-29 22:20:00 Mem orial [place] Weight 2014-08-29 20:01:00 [facility] [place] BMI Calculated 2014-08-29 20:01:00 Memori al [place] Heart Rate 2014-08-29 20:01:00 [facility] [place] Respitory Rate 2014-08-29 20:01:00 Memori al [place] Systolic (mm Hg) 2014-08-29 20:01:00 Juan Manuel rial [place] Diastolic (mm Hg) 2014-08-29 20:01:00 Mem orial [place] Temperature Oral (F) 2014-08-29 20:01:00 98.3 F [facility] [place] Height 2014-08-29 20:01:00 172.72 cm [facility] [place] Procedures Procedure Date / Time Performing Clinician Source Performed SARS-COV2/RT-PCR ([facility] & 2019-10-02 19:28:00 [facility] - REF LABS) [facility] Cholecystectomy 2014-03-13 00:00:00 [facility] Abdominal hysterectomy [facility] CS - [facility] En[facility]ters Start End Encounter Admission Attending Care Care Encounter Source Date/Time Date/Time Type Type Clinicians Facility Department ID 2020-06-01 2020-06-01 [facility] [id number] [place] 00:00:00 00:00:00 FLORINDA [address] 2020-06-01 2020-06-01 [facility] [id number] [place] 00:00:00 00:00:00 FLORINDA [address] 2020-05-27 2020-05-27 Outpatient SARAH [facility] [id number] [place] 00:00:00 00:00:00 FLORINDA [address] 2019-04-19 2019-04-19 Outpatient Sheyla Albarado [facility] [id number] 11:35:00 23:59:00 Rin 2019-04-19 2019-04-19 Outpatient Sheyla Albarado [facility] [id number] 11:35:00 23:59:00 Rin 2019-04-19 2019-04-19 Outpatient [facility] [id number] [facility] 11:35:00 11:35:00 2016-05-18 2016-05-18 Outpatient Ryan, MHOIP M[facility]IP [id number] 10:22:00 23:59:00 Casey M 2016-05-18 2016-05-18 Outpatient Ryan, MHOIP M[facility]IP [id number] 10:22:00 23:59:00 Casey M 2015-08-05 2015-08-05 Outpatient Sarah, Latia [facility] [id number] 17:05:00 17:42:00 [facility] 2015-08-05 2015-08-05 Outpatient Sarah, Latia [facility] [id number] 17:05:00 17:42:00 Alexander 2015-07-01 2015-07-01 Outpatient Kelvin, MHSE MHSE [id number] 08:00:00 18:10:00 Alexandre 02 [facility] 2015-07-01 2015-07-01 Outpatient Kelvin, MHSE MHSE [id number] 08:00:00 18:10:00 Alexandre 02 [facility] 2015-06-17 2015-06-17 Outpatient Hehman, MHSWH M[facility] [id number] 11:33:00 13:32:00 Woody Gan 2015-06-17 2015-06-17 Outpatient Hehman, [facility] [id number] 11:33:00 13:32:00 Woody Gan 2014-08-29 2014-08-29 Outpatient Pulliam, HS HS [id number] 14:56:00 19:32:00 Kizzy Vicky Stock 2014-08-29 2014-08-29 Outpatient Heraclio [facility] [id number] 14:56:00 19:32:00 Kizzy 00 [facility] Results Test Description Test Time Test Comments Results Result Comments Source SARS-CoV2/RT-PCR ([facility] & Ref Labs) 2019-10-03 11:15:00 Test Item Value Reference Range Interpretation Comme nts SARS-COV2/RT-PCR (test code = [place] [address]-6) Negative, See external report for linked test SARS-COV-2 PERFORMING LAB [facility] STEFAN (test code = 06257-0) YEHUDA (test code = YEHUDA) Results are [...] of the Act. Fact Sheet for Healthcare Providers:https://www.[employer] .[employer]/sites/default/files/pro duct/documents/Fact_Sheet_HC _Nujeiuunk_Wymp_WPHF-MhD-6.p df Fact Sheet for Healthcare Patients:https://www.[employer]/sites/default/files/prod uct/documents/Fact_Sheet_Brigette batemandgvcw_Uolc_EJDK-BuF-0.pdf Performing Laboratory:[facility] [place] [address] Lab Interpretation (test code Abnormal = 36610-8) [facility] & REF LABS)2019-10-03 11:15:00 Test Item Value Reference Range Interpretation Comments SARS-COV2/RT-PCR (test Positive Not Detected, Negative, AA code = [id number]) See external report for linked test SARS-COV-2 PERFORMING LAB [facility] STEFAN (test code = 6869328) Results are for the detection of SARS-CoV-2 [...] 564(g) of the Act.Fact Sheet for Healthcare Providers:https://www.[employer]/sites/default/files/product/d ocuments/Botb_Suuyv_JI_Xolhkeklp_Xevr_HIBQ-VaD-1.pdfFact Sheet for Healthcare Patients:https://www.[employer]Torrent.[employer]/sites/default/files/product/documents/Fact_Sheet_Patients_Lyra_SARS-CoV -2.pdfPerforming Laboratory:[facility], [place] [id number] 18:35:004.7[facility] [id number] 18:35:004.7[facility]annBlood Gas+Lytes+Glu+Ca+Hgb+Hct+[id number] 12:22:00 Test Item Value Reference Range Interpretation [...] 0.7 mmol/L (test code = BGLA) HEMOGLOBIN [id number] 08:30:00 Test Item Value Reference Range Interpretation Comments HEMOGLOBIN A1C ([facility]) (test code = 5.3 % 4.3-6.1 368) POCT-GLUCOSE [id number] 07:28:00 Test Item Value Reference Range Interpretation Comments POC-GLUCOSE METER 78 mg/dL 70-110 TESTED AT [place] [address] ([facility]) (test code = TANISHA Hutson [facility] [id number] 1538) POCT-GLUCOSE [id number] 20:51:00 Test Item Value Reference Range Interpretation Comments POC-GLUCOSE METER 49 mg/dL 70-110 L Will Repea t Test/TESTED ([facility]) (test code = AT [address] [address]) [facility] [address] POCT-GLUCOSE [id number] 18:20:00 Test Item Value Reference Range Interpretation Comments POC-GLUCOSE METER 188 mg/dL 70-110 H TESTED AT [place] [address] ([facility]) (test code = [facility] Caryl [facility] 1538) [address] T4, [id number] 17:50:00 Test Item Value Reference Range Interpretation Comments FREE T4 ([facility]) (test code = 655) 1.31 ng/dL 0.70-1.48 SEDIMENTATION [id number] 17:38:00 Test Item Value Reference Range Interpretation Comments SEDIMENTATION RATE, ERYTHROCYTE 103 mm/HR 0-20 H ([facility]) (test code = 766) TSH/FREE T4 IF [id number] 16:25:00 Test Item Value Reference Range Interpretation Comments THYROID STIMULATING HORMONE 0.30 uIU/mL 0.35-4.94 L ([facility]) (test code = 772) CREATINE KINASE (CK), TOTAL AND [id number] 16:08:00 Test Item Value Reference Range Interpretation Comments CREATINE KINASE TOTAL (BEAKER) 111 U/L 29-200 (test code = 380) CREATINE KINASE-MB (BEAKER) (test 4.8 ng/mL 0.0-6.6 code = 750) CREATINE KINASE-MB INDEX (BEAKER) 4.3 % (test code = 395) CK-MB Reference Range:<6.7 Normal6.7-10.0 Borderline>10.0 AbnormalTROPONIN [id number] 16:08:00 Test Item Value Reference Range Interpretation [...] 395) CK-MB Reference Range:<6.7 Normal6.7-10.0 Borderline>10.0 AbnormalTROPONIN [id number] 16:07:00 Test Item Value Reference Range Interpretation [...] failure, acidosis, acute neurological disease, and persistent tachyarrhythmia.[id number] 15:59:00 Test Item Value Reference Range Interpretation Comments PHOSPHORUS (BEAKER) (test code = 5.1 mg/dL 2.3-4.7 H 604) LIPID [id number] 15:59:00 Test Item Value Reference Range Interpretation [...] 130-159 High 160-189 Very High >=190HEPATIC FUNCTION [id number] 15:59:00 Test Item Value Reference Range Interpretation [...] code = 10 U/L 6-55 347) C-REACTIVE [id number] 15:59:00 Test Item Value Reference Range Interpretation Comments C-REACTIVE PROTEIN (BEAKER) (test 0.52 mg/dL 0.00-0.50 H code = 676) BASIC METABOLIC [id number] 15:59:00 Test Item Value Reference Range Interpretation [...] PATIEN TS. CBC W/PLT COUNT & AUTO [id number] 15:16:00 Test Item Value Reference Range Interpretation [...] PERCENT (BEAKER) (test code = 2801) PROTHROMBIN [id number] 15:08:00 Test Item Value Reference Range Interpretation Comments PROTIME (BEAKER) (test code = 16.0 seconds 11.7-14.7 H 759) INR (BEAKER) (test code = 370) 1.3 <=5.9 RECOMMENDED COUMADIN/WARFARIN INR THERAPY RANGESSTANDARD DOSE: 2.0 - 3.0 Includes: PROPHYLAXIS forvenous thrombosis, systemic embolization; TREATMENT for venous thrombosis and/or pulmonary embolus.HIGH RISK: Target INR is 2.5-3.5 for patients with mechanical heart valves.POCT-GLUCOSE [id number] 12:04:00 Test Item Value Reference Range Interpretation Comments POC-GLUCOSE METER 187 mg/dL 70-110 H TESTED AT [facility] 6720 ([facility]) (test code = [facility] 1538) [address] POCT-GLUCOSE [id number] 09:11:00 Test Item Value Reference Range Interpretation Comments POC-GLUCOSE METER 83 mg/dL 70-110 TESTED AT [facility] 6720 ([facility]) (test code = [facility] [address] 1538) MR, BRAIN, WITHOUT [id number] 00:47:00PT started dialysis 07/12/2015Reason for exam:->Sudden onset [...] MDReport Verified Date/Time: 02/23/2017 00:47:16 Reading Location: [address] Body Reading Room AFB CULTURE + [id number] 07:45:00 Test Item Value Reference Range Interpretation Comments CULTURE (BEAKER) (test No acid-fast bacilli code = 1095) isolated in 42 days AFB SMEAR (BEAKER) No acid fast bacilli (test code = 994) seen AFB CULTURE + [id number] 07:45:00 Test Item Value Reference Range Interpretation Comments CULTURE (BEAKER) (test No acid-fast bacilli code = 1095) isolated in 42 days AFB SMEAR (BEAKER) No acid fast bacilli (test code = 994) seen FUNGUS CULTURE + [id number] 18:17:00 Test Item Value Reference Range Interpretation Comments CULTURE (BEAKER) (test No fungus isolated in code = 1095) 28 days FUNGUS SMEAR (BEAKER) No fungi seen (test code = 1406) FUNGUS CULTURE + [id number] 18:17:00 Test Item Value Reference Range Interpretation Comments CULTURE (BEAKER) (test No fungus isolated in code = 1095) 28 days FUNGUS SMEAR (BEAKER) No fungi seen (test code = 1406) AFB CULTURE + [id number] 14:52:00 Test Item Value Reference Range Interpretation Comments CULTURE (BEAKER) (test No acid-fast bacilli code = 1095) isolated in 42 days AFB SMEAR (BEAKER) No acid fast bacilli (test code = 994) seen AB SPECIFICITY CLASS [id number] 10:13:00 Test Item Value Reference Range Interpretation Comments DATE OF SERUM (BEAKER) (test code = 464803 3124) SERUM # (BEAKER) (test code = 2290) 781820 AB SPECIFICITY CLASS I (BEAKER) (test code = 2429) AB SPECIFICITY CLASS [id number] 10:13:00 Test Item Value Reference Range Interpretation Comments DATE OF SERUM (BEAKER) 312486 (test code = 2289) SERUM # (BEAKER) (test 150443 code = 2290) AB SPECIFICITY CLASS II See Scanned Report (BEAKER) (test code = 2430) HERPES VIRUS ANTIBODY, [id number] 14:21:00 Test Item Value Reference Range Interpretation Comments HERPES VIRUS IGM Negative HSV 1 IGM = NEGHSV 2 (BEAKER) (test code = IGM = NEG 1808) TOXOPLASMA GONDII ANTIBODY, [id number] 14:21:00 Test Item Value Reference Range Interpretation Comments TOXOPLASMA IGM ANTIBODY (BEAKER) Negative (test code = 742) FLOW PRA CLASS I AND [id number] 15:15:00 Test Item Value Reference Range Interpretation Comments DATE OF SERUM (BEAKER) 238369 (test code = 2289) SERUM # (BEAKER) (test 561449 code = 2290) FLOW PRA CLASS I AND II See Scanned Report (test code = 2421) VARICELLA ZOSTER ANTIBODY, [id number] 14:59:00 Test Item Value Reference Range Interpretation Comments VARICELLA ZOSTER IGG (AL) (BEAKER) 5.8 Al (test code = 3197) VARICELLA ZOSTER RESULT INTERPRETATIONS: <=0.8 Al Nonreactive: Presumed non-immune to VZV 0.9-1.0 Al Equivocal >=1.1 Al Reactive: Presumed immune to VZVANURADHA [id number] 14:16:00PT started dialysis 07/12/2015Addendum BeginsREPORT STATUS:A The original report incorrectly states that the procedure was performed with intravenous contrast. In fact, the procedure was performed without intravenous contrast. Signed: Joann Diaz MDReport Verified Date/Time: 01/13/2017 14:16:42 ReadingLocation: [facility] B1 C013X Ortho Consult Reading RoomAddendum [...] MDReport Verified Date/Time: 01/06/2017 23:49:19 Reading Location: [facility] [id number] Reading Room CT, CHEST, WITHOUT [id number] 14:16:00PT started dialysis 07/12/2015Addendum BeginsREPORT STATUS:A The original report incorrectly states that the procedure was performed with intravenous contrast. In fact, the procedure was performed without intravenous contrast. Signed: Joann Diaz MDReport Verified Date/Time: 01/13/2017 14:16:42 ReadingLocation: [facility] C013X Ortho Consult Reading RoomAddendum EndsFINAL REPORT [...] MDReport Verified Date/Time: 01/06/2017 23:49:19 Reading Location: [facility] B1 [id number] Reading [facility] MET[facility]OLIC [id number] 14:06:00 Test Item Value Reference Range Interpretation [...] S NOT APPLICABLE FOR DIALYSIS PATIEN TS. [id number] 14:04:00 Test Item Value Reference Range Interpretation Comments MAGNESIUM (BEAKER) (test code = 1.7 mg/dL 1.6-2.6 627) PROTHROMBIN [id number] 13:52:00 Test Item Value Reference Range Interpretation [...] 0-0 (BEAKER) (test code = 413) POCT-GLUCOSE [id number] 07:33:00 Test Item Value Reference Range Interpretation Comments POC-GLUCOSE METER 82 mg/dL 70-110 TESTED AT [place] [address] ([facility]) (test code = TANISHA Hutson [facility] [address] 1538) POCT-GLUCOSE [id number] 22:10:00 Test Item Value Reference Range Interpretation Comments POC-GLUCOSE METER 118 mg/dL 70-110 H TESTED AT [place] [address] ([facility]) (test code = TANISHA Hutson [facility] 1538) [address] POCT-GLUCOSE [id number] 16:58:00 Test Item Value Reference Range Interpretation Comments POC-GLUCOSE METER 102 mg/dL 70-110 TESTED AT [place] [address] ([facility]) (test code = [facility] Caryl [facility] 1538) [address] POCT-GLUCOSE [id number] 07:43:00 Test Item Value Reference Range Interpretation Comments POC-GLUCOSE METER 93 mg/dL 70-110 TESTED AT [place] [address] ([facility]) (test code = [facility] Caryl [facility] [address] 1538) POCT-GLUCOSE [id number] 21:58:00 Test Item Value Reference Range Interpretation Comments POC-GLUCOSE METER 130 mg/dL 70-110 H TESTED AT [place] [address] ([facility]) (test code = [facility] Caryl [facility] 1538) [address] POCT-GLUCOSE [id number] 17:59:00 Test Item Value Reference Range Interpretation Comments POC-GLUCOSE METER 144 mg/dL 70-110 H TESTED AT [place] [address] ([facility]) (test code = [facility] 1538) [address] CYTOMEGALOVIRUS ANTIBODY, [id number] 15:45:00 Test Item Value Reference Range Interpretation Comments CYTOMEGALOVIRUS IGG ANTIBODY Negative ([facility]) (test code = 790) CYTOMEGALOVIRUS ANTIBODY, [id number] 15:45:00 Test Item Value Reference Range Interpretation Comments CYTOMEGALOVIRUS IGM ANTIBODY Negative ([facility]) (test code = 816) HERPES VIRUS ANTIBODY, [id number] 15:45:00 Test Item Value Reference Range Interpretation Comments HERPES VIRUS IGG Positive HSV 1 IGG = POSHSV 2 ([facility]) (test code = IGG = POS 1807) EBV-VCA ANTIBODY, [id number] 15:45:00 Test Item Value Reference Range Interpretation Comments GIO-NICK VCA IGG (BEAKER) (test Positive code = 983) EBV-VCA ANTIBODY, [id number] 15:45:00 Test Item Value Reference Range Interpretation Comments GIO-NICK VCA IGM (BEAKER) (test Negative code = 984) TOXOPLASMA GONDII ANTIBODY, [id number] 15:45:00 Test Item Value Reference Range Interpretation Comments TOXOPLASMA GONDII IGG (BEAKER) (test Negative code = 419) POCT-GLUCOSE [id number] 14:27:00 Test Item Value Reference Range Interpretation Comments POC-GLUCOSE METER 108 mg/dL 70-110 TESTED AT [facility] 6720 (BEAKER) (test code = TANISHA [place] 1538) [address] IMMUNOFIXATION ELECTROPHORESIS (YOANNA)2017-01-11 13:52:00 Test Item Value [...] to presence of fibrinogen in the sample. [id number] Pat Pinzon, ([facility]) (test code = (electronic 0695) signature) Do not collect, specimen already in lab.BASIC METABOLIC [id number] 09:44:00 Test Item Value Reference Range Interpretation [...] S NOT APPLICABLE FOR DIALYSIS PATIEN TS. [id number] 09:20:00 Test Item Value Reference Range Interpretation Comments MAGNESIUM (BEARNAV) (test code = 1.8 mg/dL 1.6-2.6 627) POCT-GLUCOSE [id number] 09:18:00 Test Item Value Reference Range Interpretation Comments POC-GLUCOSE METER 100 mg/dL 70-110 TESTED AT [place] [address] ([facility]) (test code = [facility] 1538) [address] PROTHROMBIN [id number] 08:51:00 Test Item Value Reference Range Interpretation [...] heart valves.While on warfarin.HGB/HCT (H&H) - STAT [id number] 08:44:00 Test Item Value Reference Range Interpretation Comments HEMOGLOBIN (BEAKER) (test code = 8.0 g/dL 12.0-15.0 L 410) HEMATOCRIT (MARYANNE) (test code = 24.0 % 36.0-45.0 L 411) POCT-GLUCOSE [id number] 23:05:00 Test Item Value Reference Range Interpretation Comments POC-GLUCOSE METER 108 mg/dL 70-110 TESTED AT [place] [address] ([facility]) (test code = [facility] [place] 1538) [address] POCT-GLUCOSE [id number] 17:36:00 Test Item Value Reference Range Interpretation Comments POC-GLUCOSE METER 133 mg/dL 70-110 H TESTED AT [place] [address] ([facility]) (test code = [facility] Caryl [facility] 1538) [address] POCT-GLUCOSE [id number] 12:31:00 Test Item Value Reference Range Interpretation Comments POC-GLUCOSE METER 115 mg/dL 70-110 H TESTED AT [place] [address] ([facility]) (test code = [facility] Caryl [facility] 1538) [address] FUNGUS CULTURE + [id number] 12:30:00 Test Item Value Reference Range Interpretation Comments CULTURE ([facility]) (test No fungus isolated in code = 1095) 28 days FUNGUS SMEAR ([facility]) No fungi seen (test code = 1406) POCT-GLUCOSE [id number] 08:30:00 Test Item Value Reference Range Interpretation Comments POC-GLUCOSE METER 99 mg/dL 70-110 TESTED AT [place] [address] ([facility]) (test code = [facility] Caryl [facility] [address] 1538) POCT-GLUCOSE [id number] 00:16:00 Test Item Value Reference Range Interpretation Comments POC-GLUCOSE METER 106 mg/dL 70-110 TESTED AT [place] [address] ([facility]) (test code = [facility] 1538) [address] POCT-GLUCOSE [id number] 22:21:00 Test Item Value Reference Range Interpretation Comments POC-GLUCOSE METER 88 mg/dL 70-110 TESTED AT [place] [address] ([facility]) (test code = [facility] [address] 1538) POCT-GLUCOSE [id number] 14:36:00 Test Item Value Reference Range Interpretation Comments POC-GLUCOSE METER 119 mg/dL 70-110 H TESTED AT [place] [address] ([facility]) (test code = [facility] 1538) [address] PROTEIN ELECTROPHORESIS, [id number] 13:56:00 Test Item Value Reference Range Interpretation Comments ALBUMIN FRACTION 2.0 g/dL 3.5-5.5 L ([facility]) (test code = 405) ALPHA 1 [...] monoclonal gammopathy. Refer to serum immunofixation electrophoresis. [id number] Anne Yen MD (BEAKER) (test code (electronic signature) = 2616) PROTEIN TOTAL SERUM, 5.7 gm/dL 6.0-8.3 L SPEP (BEAKER) (test code = 9040) Do not collect, specimen already in lab.POTASSIUM-STAT [id number] 10:33:00 Test Item Value Reference Range Interpretation Comments POTASSIUM (BEAKER) (test code = 4.9 meq/L 3.6-5.5 379) GLUCOSE-STAT [id number] 10:33:00 Test Item Value Reference Range Interpretation Comments GLUCOSE RANDOM (BEAKER) (test code 129 mg/dL 70-110 H = 652) HGB/HCT (H&H) - STAT [id number] 10:33:00 Test Item Value Reference Range Interpretation Comments HEMOGLOBIN (BEAKER) (test code = 12.3 g/dL 12.0-15.0 410) HEMATOCRIT (BEAKER) (test code = 36.0 % 36.0-45.0 411) HGB/HCT (H&H) - STAT [id number] 07:59:00 Test Item Value Reference Range Interpretation Comments HEMOGLOBIN (BEAKER) (test code = 8.5 g/dL 12.0-15.0 L 410) HEMATOCRIT (BEAKER) (test code = 25.0 % 36.0-45.0 L 411) BASIC METABOLIC [id number] 07:16:00 Test Item Value Reference Range Interpretation [...] S NOT APPLICABLE FOR DIALYSIS PATIEN TS. [id number] 07:10:00 Test Item Value Reference Range Interpretation Comments MAGNESIUM (BEAKER) (test code = 2.0 mg/dL 1.6-2.6 627) POCT-GLUCOSE [id number] 06:47:00 Test Item Value Reference Range Interpretation Comments POC-GLUCOSE METER 113 mg/dL 70-110 H TESTED AT [place] [address] ([facility]) (test code = TANISHA Hutson [facility] 1538) [address] [id number] 02:25:00 Test Item Value Reference Range Interpretation Comments PARTIAL THROMBOPLASTIN TIME 67.7 seconds 22.5-36.0 H ([facility]) (test code = 760) POCT-GLUCOSE [id number] 18:18:00 Test Item Value Reference Range Interpretation Comments POC-GLUCOSE METER 138 mg/dL 70-110 H TESTED AT [place] [address] ([facility]) (test code = TANISHA Hutson [facility] 1538) [address] [id number] 17:24:00 Test Item Value Reference Range Interpretation [...] 2.5-3.5 for patients with mechanical heart valves.ANAEROBIC [id number] 14:23:00 Test Item Value Reference Range Interpretation Comments CULTURE (BEAKER) (test No anaerobes isolated code = 1095) ANAEROBIC [id number] 14:23:00 Test Item Value Reference Range Interpretation Comments CULTURE (BEAKER) (test No anaerobes isolated code = 1095) POCT-GLUCOSE [id number] 12:45:00 Test Item Value Reference Range Interpretation Comments POC-GLUCOSE METER 126 mg/dL 70-110 H TESTED AT [facility] 6720 (BEAKER) (test code = TANIS[place] 1538) [address] SURGICALLY OBTAINED CULTURE + GRAM [id number] 11:41:00 Test Item Value Reference Range Interpretation Comments CULTURE A From Broth Only Same (BEAKER) (test organism has been code = 1095) isolated from cultures(s) of the same body site and collection date . Repeat identifi cation and susceptibil ity testing perform ed only after consultat ion with [facility] microbiology laboratory.Refe r to previous cultur e ofCoagulase neg ative Staphylococcus GRAM STAIN <1+ WBCs RESULT (BEAKER) (test code = 1123) GRAM STAIN No organisms seen RESULT (BEAKER) (test code = 876347) SURGICALLY OBTAINED CULTURE + GRAM [id number] 11:38:00 Test Item Value Reference Interpretation Comments [...] No organisms (BEAKER) (test code = seen 018087) [id number] 10:08:00 Test Item Value Reference Range Interpretation [...] 2.5-3.5 for patients with mechanical heart valves.POCT-GLUCOSE [id number] 08:24:00 Test Item Value Reference Range Interpretation Comments POC-GLUCOSE METER 97 mg/dL 70-110 TESTED AT [facility] 6720 (BEAKER) (test code = [place] [address] 1538) [id number] 07:39:00 Test Item Value Reference Range Interpretation Comments PARTIAL THROMBOPLASTIN TIME 192.0 seconds 22.5-36.0 HH (BEAKER) (test code = 760) [id number] 07:37:00 Test Item Value Reference Range Interpretation Comments MAGNESIUM (BEAKER) (test code = 1.7 mg/dL 1.6-2.6 627) BASIC METABOLIC [id number] 07:37:00 Test Item Value Reference Range Interpretation [...] S NOT APPLICABLE FOR DIALYSIS PATIEN TS. [id number] 23:25:00 Test Item Value Reference Range Interpretation Comments PARTIAL THROMBOPLASTIN TIME 97.8 seconds 22.5-36.0 H ([facility]) (test code = 760) POCT-GLUCOSE [id number] 22:52:00 Test Item Value Reference Range Interpretation Comments POC-GLUCOSE METER 98 mg/dL 70-110 TESTED AT [place] [address] ([facility]) (test code = [facility] [address] 1538) POCT-GLUCOSE [id number] 17:43:00 Test Item Value Reference Range Interpretation Comments POC-GLUCOSE METER 86 mg/dL 70-110 TESTED AT [place] [address] ([facility]) (test code = [facility] [address] 1538) [id number] 15:59:00 Test Item Value Reference Range Interpretation Comments PARTIAL THROMBOPLASTIN TIME 62.8 seconds 22.5-36.0 H ([facility]) (test code = 760) POCT-GLUCOSE [id number] 14:50:00 Test Item Value Reference Range Interpretation Comments POC-GLUCOSE METER 115 mg/dL 70-110 H TESTED AT [place] [address] ([facility]) (test code = [facility] 1538) [address] [id number] 14:00:00 Test Item Value Reference Range Interpretation Comments PARTIAL THROMBOPLASTIN TIME 113.6 seconds 22.5-36.0 H ([facility]) (test code = 760) VANCOMYCIN LEVEL, [id number] 13:10:00 Test Item Value Reference Range Interpretation Comments VANCOMYCIN RANDOM ([facility]) (test 33.9 ug/mL code = 523) Reference Range: No NormalsTROPONIN [id number] 12:52:00 Test Item Value Reference Range Interpretation Comments TROPONIN I ([facility]) (test code = 0.09 ng/mL 0.00-0.03 [...] acidosis, acute neurological disease, and persistent tachyarrhythmia.POCT-GLUCOSE [id number] 12:19:00 Test Item Value Reference Range Interpretation Comments POC-GLUCOSE METER 87 mg/dL 70-110 TESTED AT [facility] 6720 ([facility]) (test code = [place] [address] 1538) POCT-GLUCOSE [id number] 08:36:00 Test Item Value Reference Range Interpretation Comments POC-GLUCOSE METER 62 mg/dL 70-110 L Notified R Gio IGLESIAS/TESTED AT ([facility]) (test code = [facility] [address] 1538) [place] [address] ANTI-NUCLEAR ANTIBODY ([place])2017-01-07 06:33:00 Test Item Value Reference Range Interpretation Comments ANTI-NUCLEAR ANTIBODY ([place]) ([facility]) Positive Negative A (test code = 418) [place] TITER AND [id number] 06:33:00 Test Item Value Reference Range Interpretation Comments [place] TITER ([facility]) (test code = 1541) :640 [place] PATTERN ([facility]) (test code = SSA/RO 1781) TROPONIN [id number] 03:35:00 Test Item Value Reference Range Interpretation [...] acute neurological disease, and persistent tachyarrhythmia.BASIC METABOLIC [id number] 03:28:00 Test Item Value Reference Range Interpretation [...] S NOT APPLICABLE FOR DIALYSIS PATIEN TS. [id number] 03:27:00 Test Item Value Reference Range Interpretation Comments MAGNESIUM (BEAKER) (test code = 1.9 mg/dL 1.6-2.6 627) [id number] 03:24:00 Test Item Value Reference Range Interpretation Comments PARTIAL THROMBOPLASTIN TIME 111.9 seconds 22.5-36.0 H (BEAKER) (test code = 760) [id number] 00:18:00 Test Item Value Reference Range Interpretation Comments RPR SCREEN (BEAKER) (test code = Nonreactive Nonreactive 420) BLOOD [id number] 00:00:00 Test Item Value Reference Range Interpretation Comments CULTURE (BEAKER) (test No growth in 5 days code = 1095) BLOOD [id number] 00:00:00 Test Item Value Reference Range Interpretation Comments CULTURE (BEAKER) (test No growth in 5 days code = 1095) CT, BRAIN, WITHOUT [id number] 23:31:00PT started dialysis 07/12/2015 FINAL REPORT Clinical [...] Nuno MDReportVerified Date/Time: 01/06/2017 23:31:20 Reading Location: [facility] B1 C013X Ortho Consult Reading Room POCT-GLUCOSE [id number] 22:02:00 Test Item Value Reference Range Interpretation Comments POC-GLUCOSE METER 99 mg/dL 70-110 TESTED AT [place] [address] ([facility]) (test code = [facility] [address] 1538) [id number] 18:44:00 Test Item Value Reference Range Interpretation Comments PARTIAL THROMBOPLASTIN TIME 94.9 seconds 22.5-36.0 H ([facility]) (test code = 760) HEPATITIS A ANTIBODY, [id number] 18:03:00 Test Item Value Reference Range Interpretation Comments HEPATITIS A IGG ANTIBODY ([facility]) Reactive Nonreactive A (test code = 2797) HIV-1 ANTIGEN WITH HIV-1/2 [id number] 17:58:00 Test Item Value Reference Range Interpretation Comments HIV-1 ANTIGEN WITH HIV 1\\T\\2 Nonreactive Nonreactive ANTIBODY (2) ([facility]) (test code = 2586) POCT-GLUCOSE [id number] 17:55:00 Test Item Value Reference Range Interpretation Comments POC-GLUCOSE METER 89 mg/dL 70-110 TESTED AT [place] [address] ([facility]) (test code = [facility] [address] 1538) ANG, TUNNELED DIALYSIS CATH [id number] 17:45:00PT started dialysis 07/12/2015Reason for exam:->needs fci HD access, please d/c [facility]ley after PC [...] Physician intra- service time was 20 minutes. Electrician Apprentice Powerhouse: Richard. Lasting Room Supervisor: Rolf. Approach: Right internal jugular vein Estimated [...] needle into the right atrium. A 4 [place] micropuncture sheath was placed. A subcu taneous tunnel was created in the right anterior chest wall by blunt dissection. A 19 cm 15.5 [place] Duraflow 2 catheter was brought through the [...] Ramírez Verified Date/Time: 01/06/2017 17:45:51 Reading Location: [facility] [id number] Ultrasound Reading Room [id number] 17:37:00 Test Item Value Reference Range Interpretation Comments PARTIAL THROMBOPLASTIN TIME > seconds 22.5-36.0 [facility] ([facility]) (test code = 760) U/S, RENAL, [id number] 17:29:00PT started dialysis 07/12/2015Reason for exam:->heart transplant [...] Ramírezeport Verified Date/Time: 01/06/2017 17:29:12 Reading Location: [place] [id number] Ultrasound Reading Room TROPONIN [id number] 17:04:00 Test Item Value Reference Range Interpretation [...] failure, acidosis, acute neurological disease, and persistent tachyarrhythmia.[id number] 16:54:00 Test Item Value Reference Range Interpretation Comments FERRITIN (BEAKER) (test code = 361) 216 ng/mL 5-275 VITAMIN D, 34-[id number] 16:48:00 Test Item Value Reference Range Interpretation Comments VITAMIN D 25-OH (BEAKER) (test code 6.4 ng/mL 6.6-49.9 L = 2764) Effective 12/21/2016: Reference Range ChangeNew: 6.6-49.9 ng/mL Previous: 13.0-47.8 ng/mLRecommended Vitamin D Target Range: 30.0-40.0 ng/mLT4, FREE 2017-01-06 16:43:00 Test Item Value Reference Range Interpretation Comments FREE T4 (BEAKER) (test code = 655) 1.56 ng/dL 0.70-1.48 H [id number] 16:43:00 Test Item Value Reference Range Interpretation Comments THYROID STIMULATING HORMONE 0.98 uIU/mL 0.35-4.94 (BEAKER) (test code = 772) [id number] 16:22:00 Test Item Value Reference Range Interpretation Comments TRANSFERRIN (BEAKER) (test code = 122 mg/dL 174-382 L 541) [id number] 16:13:00 Test Item Value Reference Range Interpretation Comments PREALBUMIN (BEAKER) (test code = 14 mg/dL 14-45 586) IRON, [id number] 16:13:00 Test Item Value Reference Range Interpretation Comments IRON (BEAKER) (test code = 547) 23 ug/dL 40-160 L TROPONIN [id number] 15:31:00 Test Item Value Reference Range Interpretation [...] failure, acidosis, acute neurological disease, and persistent tachyarrhythmia.[id number] 15:30:00 Test Item Value Reference Range Interpretation Comments CREATININE (BEAKER) 6.49 mg/dL 0.57-1.25 H (test code = 358) EGFR (BEAKER) (test 8 mL/min/1.73 ESTIMAT ED GFR IS code = 1092) sq m NOT ACCURATE CREATININE CLEARANCE IN PREDICTING GLOMERULAR FILTRATION RATE . ESTIMATED GFR I S NOT APPLICABLE FOR DIALYSIS PATIEN TS. URIC [id number] 15:25:00 Test Item Value Reference Range Interpretation Comments URIC ACID (BEAKER) (test code = 3.3 mg/dL 2.6-7.2 773) LIPID [id number] 15:25:00 Test Item Value Reference Range Interpretation [...] 100-129 Borderline 130-159 High 160-189 Very High >=[id number] 15:25:00 Test Item Value Reference Range Interpretation Comments AMYLASE (BEAKER) (test code = 349) 60 U/L 25-125 GAMMA GLUTAMYL TRANSFERASE (GGT)2017-01-06 15:25:00 Test Item Value Reference Range Interpretation Comments GAMMA GLUTAMYL TRANSFERASE (BEAKER) 15 U/L 9-64 (test code = 364) [id number] 15:25:00 Test Item Value Reference Range Interpretation Comments LIPASE (BEAKER) (test code = 749) 46 U/L 8-78 RETICULOCYTE [id number] 15:07:00 Test Item Value Reference Range Interpretation Comments RETICULOCYTE COUNT PCT (BEAKER) (test 1.2 % 0.5-1.7 code = 575) POCT-GLUCOSE [id number] 09:33:00 Test Item Value Reference Range Interpretation Comments POC-GLUCOSE METER 103 mg/dL 70-110 TESTED AT [facility] (test code = [place] 1538) [address] POCT-GLUCOSE [id number] 06:37:00 Test Item Value Reference Range Interpretation Comments POC-GLUCOSE METER 108 mg/dL 70-110 TESTED AT [facility] 67[address] (BEAKER) (test code = TANISHA Hut[place] 1538) [address] VANCOMYCIN LEVEL, [id number] 04:30:00 Test Item Value Reference Range Interpretation Comments VANCOMYCIN RANDOM (BEAKER) (test 37.6 ug/mL code = 523) Reference Range: No NormalsTROPONIN [id number] 04:19:00 Test Item Value Reference Range Interpretation [...] acute neurological disease, and persistent tachyarrhythmia.BASIC METABOLIC [id number] 04:12:00 Test Item Value Reference Range Interpretation [...] S NOT APPLICABLE FOR DIALYSIS PATIEN TS. [id number] 04:11:00 Test Item Value Reference Range Interpretation Comments MAGNESIUM (BEAKER) (test code = 1.7 mg/dL 1.6-2.6 627) [id number] 03:57:00 Test Item Value Reference Range Interpretation [...] 0-0 (BEAKER) (test code = 413) TROPONIN [id number] 00:42:00 Test Item Value Reference Range Interpretation [...] acidosis, acute neurological disease, and persistent tachyarrhythmia.POCT-GLUCOSE [id number] 00:27:00 Test Item Value Reference Range Interpretation Comments POC-GLUCOSE METER 97 mg/dL 70-110 TESTED AT [facility] 67[address] ([facility]) (test code = [place] [address] 1538) [id number] 00:23:00 Test Item Value Reference Range Interpretation Comments PARTIAL THROMBOPLASTIN TIME 34.2 seconds 22.5-36.0 (BEAKER) (test code = 760) [id number] 17:16:00 Test Item Value Reference Range Interpretation Comments PARTIAL THROMBOPLASTIN TIME 58.7 seconds 22.5-36.0 H (BEAKER) (test code = 760) TISSUE [id number] 16:16:00Surgical Pathology Report Case: [id number] Authorizing Provider: Fabi Parekh MD Collected: 01/04/2017 1055 Ordering Location: [facility] Received: 01/04/2017 1314 PERIOPERATIVE SERVICES Pathologist: Judit Medel MD Specimen: Hernia, Hernia Sac HERNIA SAC, ABDOMINAL, INCISIONAL HERNIA, REPAIR: - FIBROADIPOSE TISSUE AND REACTIVE CHANGS WITH FOREIGN BODY GIANT CELLS, CONSISTENT WITH INCISIONAL HERNIA SAC Signing Pathologist Direct Phone Line: [phone] signed by Judit Medel MD on 01/05/2017 at 4:16 [id number] renal disease, incisional hernia sacHernia sacReceived fresh labeled "hernia", description "hernia sac" is an 8.3 x 7.3 x 1.0 cm, dark-red to corral-white, irregular, rubbery, wrinkled portion of fibromembranoussoft tissue. Sectioning reveals no discrete masses. Skip Pit Worker sections are submitted in cassette A1. DB/ew Performed.APTT 2017-01-05 14:43:00 Test Item Value Reference Range Interpretation Comments PARTIAL THROMBOPLASTIN TIME 162.1 seconds 22.5-36.0 HH ([facility]) (test code = 760) POCT-GLUCOSE [id number] 13:01:00 Test Item Value Reference Range Interpretation Comments POC-GLUCOSE METER 88 mg/dL 70-110 TESTED AT [place] [address] ([facility]) (test code = TANISHA Hutson [facility] [address] 1538) TROPONIN [id number] 12:59:00 Test Item Value Reference Range Interpretation Comments TROPONIN I ([facility]) (test code = 0.13 ng/mL 0.00-0.03 [...] acidosis, acute neurological disease, and persistent tachyarrhythmia.SPIN/CONCENTRATION [id number] 12:45:00 Test Item Value Reference Range Interpretation Comments CONCENTRATION CHARGED ([facility]) (test Done code = 2657) POCT-GLUCOSE [id number] 09:10:00 Test Item Value Reference Range Interpretation Comments POC-GLUCOSE METER 102 mg/dL 70-110 TESTED AT [place] [address] ([facility]) (test code = [facility] Caryl [facility] 1538) [address] CBC W/PLT COUNT & AUTO [id number] 08:49:00 Test Item Value Reference Range Interpretation [...] PERCENT (BEAKER) (test code = 2801) POCT-GLUCOSE [id number] 07:57:00 Test Item Value Reference Range Interpretation Comments POC-GLUCOSE METER 133 mg/dL 70-110 H TESTED AT [place] [address] ([facility]) (test code = TANISHA [place] 1538) [address] BODY FLUID CULTURE + GRAM [id number] 07:44:00 Test Item Value Reference Range Interpretation Comments CULTURE (BEAKER) (test code No growth = 1095) GRAM STAIN RESULT (AKER) <1+ WBCs (test code = 1123) GRAM STAIN RESULT (AKER) No organisms seen (test code = 77322) POCT-GLUCOSE [id number] 06:05:00 Test Item Value Reference Range Interpretation Comments POC-GLUCOSE METER 63 mg/dL 70-110 L TESTED AT [facility] 67[address] (BEAKER) (test code = [place] [address] 1538) VANCOMYCIN LEVEL, [id number] 05:32:00 Test Item Value Reference Range Interpretation Comments VANCOMYCIN RANDOM (BEAKER) (test 31.0 ug/mL code = 523) Reference Range: No NormalsBASIC METABOLIC [id number] 05:24:00 Test Item Value Reference Range Interpretation [...] NOT APPLICABLE FOR DIALYSIS PATIEN TS. TROPONIN [id number] 05:23:00 Test Item Value Reference Range Interpretation [...] failure, acidosis, acute neurological disease, and persistent tachyarrhythmia.[id number] 05:21:00 Test Item Value Reference Range Interpretation Comments MAGNESIUM (BEAKER) (test code = 1.7 mg/dL 1.6-2.6 627) [id number] 05:06:00 Test Item Value Reference Range Interpretation Comments PARTIAL THROMBOPLASTIN TIME 89.4 seconds 22.5-36.0 H (BEAKER) (test code = 760) PROTHROMBIN [id number] 05:04:00 Test Item Value Reference Range Interpretation Comments PROTIME (BEAKER) (test code = 14.6 seconds 11.7-14.7 759) INR (BEAKER) (test code = 370) 1.2 <=5.9 RECOMMENDED COUMADIN/WARFARIN INR THERAPY RANGESSTANDARD DOSE: 2.0 - 3.0 Includes: PROPHYLAXIS forvenous thrombosis, systemic embolization; TREATMENT for venous thrombosis and/or pulmonary embolus.HIGH RISK: Target INR is 2.5-3.5 for patients with mechanical heart valves.TROPONIN [id number] 17:14:00 Test Item Value Reference Range Interpretation [...] failure, acidosis, acute neurological disease, and persistent tachyarrhythmia.[id number] 16:55:00 Test Item Value Reference Range Interpretation Comments GLUCOSE RANDOM (BEAKER) (test code 140 mg/dL 70-105 H = 652) GLUCOSE-STAT [id number] 13:33:00 Test Item Value Reference Range Interpretation Comments GLUCOSE RANDOM (BEAKER) (test code 101 mg/dL 70-110 = 652) POTASSIUM-STAT [id number] 13:33:00 Test Item Value Reference Range Interpretation Comments POTASSIUM (BEAKER) (test code = 4.6 meq/L 3.6-5.5 379) HGB/HCT (H&H) - STAT [id number] 13:33:00 Test Item Value Reference Range Interpretation Comments HEMOGLOBIN (BEAKER) (test code = 13.0 g/dL 12.0-15.0 410) HEMATOCRIT (BEAKER) (test code = 38.0 % 36.0-45.0 411) BODY FLUID CULTURE + GRAM [id number] 09:05:00 Test Item Value Reference Range Interpretation Comments CULTURE (BEAKER) (test code No growth = 1095) GRAM STAIN RESULT (BEAKER) <1+ WBCs (test code = 1123) GRAM STAIN RESULT (BEAKER) No organisms seen (test code = 80928) POCT-GLUCOSE [id number] 07:58:00 Test Item Value Reference Range Interpretation Comments POC-GLUCOSE METER 81 mg/dL 70-110 TESTED AT [facility] 67[address] (BEAKER) (test code = [place] [address] 1538) HCG, QUANTITATIVE, [id number] 07:23:00 Test Item Value Reference Range Interpretation Comments GONADOTROPIN, CHORIONIC (HCG) QUANT < mIU/mL 0-10 (BEAKER) (test code = 649) Non- Females: <10 mIU/mL Females: Gestation Age Reference Range(mIU/mL) 0.2-1 Week 5-50 1-2 Weeks 50-500 2-3 Weeks 100-5,000 3-4Weeks 500-10,000 4-5 Weeks 1,000-50,000 5-6 Weeks 10,000-100,000 6-8 Weeks 15,000-200,000 2-3 Months 10,000-100,000TROPONIN [id number] 07:19:00 Test Item Value Reference Range Interpretation [...] acute neurological disease, and persistent tachyarrhythmia.BASIC METABOLIC [id number] 07:19:00 Test Item Value Reference Range Interpretation [...] S NOT APPLICABLE FOR DIALYSIS PATIEN TS. [id number] 07:18:00 Test Item Value Reference Range Interpretation Comments MAGNESIUM (BEAKER) (test code = 1.7 mg/dL 1.6-2.6 627) PT/[id number] 06:48:00 Test Item Value Reference Range Interpretation [...] PERCENT (BEAKER) (test code = 2801) POCT-GLUCOSE [id number] 01:01:00 Test Item Value Reference Range Interpretation Comments POC-GLUCOSE METER 96 mg/dL 70-110 TESTED AT [facility] 6720 (BEAKER) (test code = [place] [address] 1538) TROPONIN [id number] 00:46:00 Test Item Value Reference Range Interpretation [...] failure, acidosis, acute neurological disease, and persistent tachyarrhythmia.PT/[id number] 00:21:00 Test Item Value Reference Range Interpretation [...] 2.5-3.5 for patients with mechanical heart valves.POCT-GLUCOSE [id number] 21:58:00 Test Item Value Reference Range Interpretation Comments POC-GLUCOSE METER 142 mg/dL 70-110 H TESTED AT [facility] 67[address] ([facility]) (test code = T[place] 1538) [address] VANCOMYCIN LEVEL, [id number] 20:19:00 Test Item Value Reference Range Interpretation Comments VANCOMYCIN RANDOM ([facility]) (test 18.4 ug/mL code = 523) Reference Range: No NormalsTROPONIN [id number] 18:36:00 Test Item Value Reference Range Interpretation [...] acidosis, acute neurological disease, and persistent tachyarrhythmia.POCT-GLUCOSE [id number] 18:30:00 Test Item Value Reference Range Interpretation Comments POC-GLUCOSE METER 119 mg/dL 70-110 H TESTED AT [place] [address] ([facility]) (test code = TANIS[place] 1538) [address] HEMOGLOBIN [id number] 18:21:00 Test Item Value Reference Range Interpretation Comments HEMOGLOBIN A1C ([facility]) (test code = 6.3 % 4.3-6.1 H 368) POCT-GLUCOSE [id number] 18:00:00 Test Item Value Reference Range Interpretation Comments POC-GLUCOSE METER 57 mg/dL 70-110 L TESTED AT [place] [address] ([facility]) (test code = TANISHA Hutson [facility] [address]38) [id number] 16:34:00 Test Item Value Reference Range Interpretation Comments PARTIAL THROMBOPLASTIN TIME 99.2 seconds 22.5-36.0 H ([facility]) (test code = 760) [id number] 15:36:00 Test Item Value Reference Range Interpretation Comments PARTIAL THROMBOPLASTIN TIME 123.9 seconds 22.5-36.0 H ([facility]) (test code = 760) [id number] 13:38:00 Test Item Value Reference Range Interpretation Comments PARTIAL THROMBOPLASTIN TIME > seconds 22.5-36.0 HH ([facility]) (test code = 760) TROPONIN [id number] 13:27:00 Test Item Value Reference Range Interpretation Comments TROPONIN I ([facility]) (test code = 0.19 ng/mL 0.00-0.03 [...] acidosis, acute neurological disease, and persistent tachyarrhythmia.POCT-GLUCOSE [id number] 13:25:00 Test Item Value Reference Range Interpretation Comments POC-GLUCOSE METER 120 mg/dL 70-110 H TESTED AT [place] [address] ([facility]) (test code = TANISHA Hutson [facility] 1538) [address] POCT-GLUCOSE [id number] 09:50:00 Test Item Value Reference Range Interpretation Comments POC-GLUCOSE METER 85 mg/dL 70-110 TESTED AT [facility] 6720 ([facility]) (test code = TANISHA Hutson [facility] [address] 1538) TROPONIN [id number] 08:31:00 Test Item Value Reference Range Interpretation Comments TROPONIN I ([facility]) (test code = 0.20 ng/mL 0.00-0.03 [facility]) Troponin I (TnI) levels must be interpreted [...] failure, acidosis, acute neurological disease, and persistent tachyarrhythmia.[id number] 03:35:00 Test Item Value Reference Range Interpretation Comments PARTIAL THROMBOPLASTIN TIME 39.1 seconds 22.5-36.0 H (AKER) (test code = 760) BASIC METABOLIC [id number] 03:34:00 Test Item Value Reference Range Interpretation [...] 8.4-10.2 L (test code = 697) [facility] (test 4 mL/min/1.73 ESTIMAT ED GFR IS code = 1092) sq m NOT ACCURATE CREATININE CLEARANCE IN PREDICTING GLOMERULAR FILTRATION RATE . ESTIMATED GFR I S NOT APPLICABLE FOR DIALYSIS PATIEN TS. [id number] 03:32:00 Test Item Value Reference Range Interpretation Comments MAGNESIUM (BEAKER) (test code = 1.5 mg/dL 1.6-2.6 L 627) CBC W/PLT COUNT & AUTO [id number] 03:17:00 Test Item Value Reference Range Interpretation [...] 417) IMMATURE GRANULOCYTES-RELATIVE 0 % 0-1 PERCENT ([facility]) (test code = 2801) TROPONIN [id number] 01:22:00 Test Item Value Reference Range Interpretation Comments TROPONIN I ([facility]) (test code = 0.19 ng/mL 0.00-0.03 [...] acidosis, acute neurological disease, and persistent tachyarrhythmia.POCT-GLUCOSE [id number] 00:49:00 Test Item Value Reference Range Interpretation Comments POC-GLUCOSE METER 74 mg/dL 70-110 TESTED AT [facility] 67[address] ([facility]) (test code = TANISHA Hutson [facility] [address]38) TROPONIN [id number] 18:57:00 Test Item Value Reference Range Interpretation Comments TROPONIN I ([facility]) (test code = 0.17 ng/mL 0.00-0.03 [...] acute neurological disease, and persistent tachyarrhythmia.VANCOMYCIN LEVEL, [id number] 18:52:00 Test Item Value Reference Range Interpretation Comments VANCOMYCIN RANDOM ([facility]) (test 29.2 ug/mL code = 523) Reference Range: No NormalsLACTATE DEHYDROGENASE (LDH)2017-01-02 18:46:00 Test Item Value Reference Range Interpretation Comments LACTATE DEHYDROGENASE (BEAKER) (test 300 U/L 125-220 H code = 635) BODY FLUID CELL COUNT WITH [id number] 18:36:00 Test Item Value Reference Range Interpretation [...] = 2873) RAD, CHEST, 1 VIEW, NON [id number] 18:36:00PT started dialysis 07/12/2015 Reason for exam:->s/p thoraFINAL REPORT Comparison: 01/01/2017 TECHNIQUE: Single view of the chest FINDINGS: Right pleural effusion has decreased. No pneumothorax bilaterally. No other significant change. Signed: Turner Grier Verified Date/Time: 01/02/2017 18:36:30 Reading Location: [address] Consult Reading Room PH, BODY [id number] 18:22:00 Test Item Value Reference Range Interpretation Comments PH, BODY FLUID (BEAKER) (test code = 7.80 1530) POCT-GLUCOSE [id number] 18:19:00 Test Item Value Reference Range Interpretation Comments POC-GLUCOSE METER 91 mg/dL 70-110 TESTED AT [facility] 6720 (BEAKER) (test code = [place] [address] 1538) LACTATE DEHYDROGENASE (LDH), BODY [id number] 18:04:00 Test Item Value Reference Range Interpretation [...] = 2585) CREATINE KINASE (CK), TOTAL AND [id number] 13:09:00 Test Item Value Reference Range Interpretation Comments CREATINE KINASE TOTAL (BEAKER) 285 U/L 29-200 H (test code = 380) CREATINE KINASE-MB (BEAKER) (test 15.2 ng/mL 0.0-6.6 H code = 750) CREATINE KINASE-MB INDEX (BEAKER) 5.3 % (test code = 395) CK-MB Reference Range:<6.7 Normal6.7-10.0 Borderline>10.0 AbnormalTROPONIN [id number] 13:09:00 Test Item Value Reference Range Interpretation [...] acidosis, acute neurological disease, and persistent tachyarrhythmia.POCT-GLUCOSE [id number] 12:25:00 Test Item Value Reference Range Interpretation Comments POC-GLUCOSE METER 95 mg/dL 70-110 TESTED AT [facility] 6720 ([facility]) (test code = TANISHA Hutson [facility] [address]38) POCT-GLUCOSE [id number] 11:56:00 Test Item Value Reference Range Interpretation Comments POC-GLUCOSE METER 65 mg/dL 70-110 L Notified R Gio IGLESIAS/TESTED AT ([facility]) (test code = [facility] 67[address] RAJINDER 1538) [facility] [address] BASIC METABOLIC [id number] 06:05:00 Test Item Value Reference Range Interpretation [...] NOT APPLICABLE FOR DIALYSIS PATIEN TS. TROPONIN [id number] 06:04:00 Test Item Value Reference Range Interpretation [...] failure, acidosis, acute neurological disease, and persistent tachyarrhythmia.[id number] 06:03:00 Test Item Value Reference Range Interpretation Comments MAGNESIUM (BEAKER) (test code = 1.9 mg/dL 1.6-2.6 627) CBC W/PLT COUNT & AUTO [id number] 05:59:00 Test Item Value Reference Range Interpretation [...] PERCENT (BEAKER) (test code = 2801) TROPONIN [id number] 01:42:00 Test Item Value Reference Range Interpretation [...] acute neurological disease, and persistent tachyarrhythmia.BASIC METABOLIC [id number] 01:37:00 Test Item Value Reference Range Interpretation [...] S NOT APPLICABLE FOR DIALYSIS PATIEN TS. [id number] 01:30:00 Test Item Value Reference Range Interpretation Comments MAGNESIUM (BEAKER) (test code = 1.5 mg/dL 1.6-2.6 L 627) POCT-GLUCOSE [id number] 00:03:00 Test Item Value Reference Range Interpretation Comments POC-GLUCOSE METER 76 mg/dL 70-110 TESTED AT [facility] 67[address] [facility] (test code = TANISHA Hutson [facility] [address]38) POCT-GLUCOSE [id number] 22:26:00 Test Item Value Reference Range Interpretation Comments POC-GLUCOSE METER 60 mg/dL 70-110 L TESTED AT [facility] 6720 ([facility]) (test code = TANISHA Hutson [facility] [address]38) TROPONIN [id number] 21:46:00 Test Item Value Reference Range Interpretation [...] acute neurological disease, and persistent tachyarrhythmia.BASIC METABOLIC [id number] 21:38:00 Test Item Value Reference Range Interpretation [...] S NOT APPLICABLE FOR DIALYSIS PATIEN TS. [id number] 21:35:00 Test Item Value Reference Range Interpretation Comments MAGNESIUM (BEAKER) (test code = 1.6 mg/dL 1.6-2.6 627) [id number] 21:34:00 Test Item Value Reference Range Interpretation Comments PHOSPHORUS (BEAKER) (test code = 7.7 mg/dL 2.3-4.7 H 604) RAD, CHEST, 1 VIEW, NON [id number] 21:30:00PT started dialysis 07/12/2015Reason for exam:->Line placementShould [...] [facility] Verified Date/Time: 01/01/2017 21:30:48 Reading Location: [place] [id number] CT Body Reading Room BODY FLUID CELL COUNT WITH [id number] 20:13:00 Test Item Value Reference Range Interpretation [...] Tube (test code = 2873) COMPREHENSIVE METABOLIC [id number] 19:19:00 Test Item Value Reference Range Interpretation [...] PATIEN TS. RAD, CHEST, 1 VIEW, NON [id number] 18:48:00PT started dialysis 07/12/2015 Reason for exam:->s/p left thoracentesis Should this be performed at the bedside?->YesFINAL REPORT Comparison: 01/01/2017 TECHNIQUE: Single view of the chest FINDINGS: Left pleural effusion has decreased. No pneumothorax bilaterally. Interval placement of a right internal jugular catheter. Tip projects in the mid SVC. No other gross change. Signed: Turner Grier MDReport Verified Date/Time: 01/01/2017 18:48:26 Reading Location: [address] Transitional Reading Room POCT-GLUCOSE [id number] 18:23:00 Test Item Value Reference Range Interpretation Comments POC-GLUCOSE METER 79 mg/dL 70-110 TESTED AT [place] [address] ([facility] (test code = [facility] [address]38) [id number] 18:09:00 Test Item Value Reference Range Interpretation Comments AMMONIA (BEAKER) (test 9 mol/L 18-72 L Speci men markedly code = 348) hemolyzed [id number] 18:08:00 Test Item Value Reference Range Interpretation Comments MAGNESIUM (BEAKER) 2.8 mg/dL 1.6-2.6 H Specimen markedly (test code = 627) hemolyzed [id number] 18:08:00 Test Item Value Reference Range Interpretation Comments PHOSPHORUS (BEAKER) 8.1 mg/dL 2.3-4.7 H Specimen markedly (test code = 604) hemolyzed POCT-GLUCOSE [id number] 18:07:00 Test Item Value Reference Range Interpretation Comments POC-GLUCOSE METER 81 mg/dL 70-110 TESTED AT [place] [address] ([facility] (test code = [facility] [address]38) LACTIC ACID, ARTERIAL, WHOLE [id number] 17:14:00 Test Item Value Reference Range Interpretation Comments LACTATE BLOOD 0.9 mmol/L 0.5-2.2 Specimen sligh tly ARTERIAL (2) (BEAKER) hemoly zed (test code = 2874) Effective 07/15/2015: Units/Reference Range ChangeNew: 0.5-2.2 mmol/L Previous: 5-20 mg/[id number] 17:12:00 Test Item Value Reference Range Interpretation Comments PROCALCITONIN (BEAKER) (test code 0.72 ng/mL <0.05 H = 3036) SEPSIS RISK (ng/mL)Low: 0.05-0.50Intermediate: 0.51-2.00High: >=2.01TROPONIN [id number] 16:56:00 Test Item Value Reference Range Interpretation [...] (BEAKER) (test code = 700) BLOOD GAS, [id number] 16:50:00 Test Item Value Reference Range Interpretation [...] (BEAKER) (test code = 1819) 21.0 % [id number] 16:46:00 Test Item Value Reference Range Interpretation Comments PHOSPHORUS (BEAKER) 7.9 mg/dL 2.3-4.7 H Specimen markedly (test code = 604) hemolyzed [id number] 16:46:00 Test Item Value Reference Range Interpretation Comments LIPASE (BEAKER) (test code = 749) 38 U/L 8-78 CALCIUM, [id number] 16:46:00 Test Item Value Reference Range Interpretation Comments CALCIUM IONIZED (BEAKER) (test 1.00 mmol/L 1.12-1.27 L code = 698) PH, BLOOD (BEAKER) (test code = 7.36 1810) PROTHROMBIN TIME/[id number] 16:43:00 Test Item Value Reference Range Interpretation [...] = 2801) RAD, CHEST, 1 VIEW, NON [id number] 15:22:00PT started dialysis 07/12/2015Post-intubationReason for exam:->sobShould this be performed at the bedside?->YesFINAL REPORT Comparison: 06/07/2016 TECHNIQUE: Single view of the chest FINDINGS: There is a moderate to large left pleural effusion and moderate right pleural effusion with nonspecific adjacent airspace disease. Cardiac silhouette is obscured. No gross pneumothorax. No acute skeletal abnormality. Signed: Turner Grier MDReport Verified Date/Time: 01/01/2017 15:22:20 Reading Location: [facility] C013T Transitional Reading Room BODY FLUID CULTURE + GRAM [id number] 11:17:00 Test Item Value Reference Range Interpretation Comments CULTURE (BEAKER) (test code No growth = 1095) GRAM STAIN RESULT (BEAKER) <1+ WBCs (test code = 1123) GRAM STAIN RESULT (BEAKER) No organisms seen (test code = 06350) [id number] 15:47:00Medical Cytology Report Case: [id number] Authorizing Provider: Verena Carrero MD Collected: 12/12/2016 1540 Ordering Location: [facility] Laboratory Received: 12/13/2016 1002 Pathologist: Gokul Hood MD Specimen: Pl eural, Right RIGHT PLEURAL FLUID (CYTOSPINS): - NEGATIVE FOR MALIGNANT CELLS Signing Pathologist Direct Phone Line: [phone] signed by Gokul Hood MD on 12/13/2016 at 3:47 PMReactive mesothelialcells are noted.[id number] pleural effusion; CHFRIGHT PLEURAL FLUID4 cytospins prepared from 200 ml yellow fluidCollected: [id number]: [id number] [facility], Departmentof Pathology, [address] [place] [address], [facility], [address] [place] [address], ALWTOYBT GRAVITY, BODY [id number] 15:33:00 Test Item Value Reference Range Interpretation Comments SP GRAVITY MISCELLANEOUS (BEAKER) (test 1.019 code = 557) Reference Range: No NormalsBODY FLUID [id number] 11:49:00 Test Item Value Reference Range Interpretation Comments CRYSTALS, BODY FLUID No crystals seen. (BEAKER) (test code = 2165) [id number] Anne Yen MD (BEAKER) (test code = (electronic signature) 7461) PH, BODY [id number] 00:24:00 Test Item Value Reference Range Interpretation Comments PH, BODY FLUID (BEAKER) (test code = 7.90 1530) BODY FLUID CELL COUNT WITH [id number] 19:53:00 Test Item Value Reference Range Interpretation [...] Tube (test code = 2873) ALBUMIN, BODY [id number] 19:31:00 Test Item Value Reference Range Interpretation Comments ALBUMIN FLUID (BEAKER) (test code = 0.9 gm/dL 501) Reference Range: No Normals Assay performance has not been validated for this type of specimen.RIGHT THORACENTESIS, PLEURAL FLUIDRIGHT THORACENTESIS, PLEURAL FLUIDRIGHT THORACENTESIS, PLEURAL FLUIDRIGHT THORACENTESIS, PLEURAL FLUIDRIGHT THORACENTESIS, PLEURAL FLUIDRIGHT THORACENTESIS, PLEURAL FLUIDCREATININE, BODY [id number] 19:31:00 Test Item Value Reference Range Interpretation Comments CREATININE FLUID (BEAKER) (test 15.62 mg/dL code = 677) Reference Range: No Normals Assay performance has not been validated for this type of specimen.RIGHT THORACENTESIS, PLEURAL FLUIDRIGHT THORACENTESIS, PLEURAL FLUIDRIGHT THORACENTESIS, PLEURAL FLUIDRIGHT THORACENTESIS, PLEURAL FLUIDRIGHT THORACENTESIS, PLEURAL FLUIDRIGHT THORACENTESIS, PLEURAL FLUIDAMYLASE, BODY [id number] 19:27:00 Test Item Value Reference Range Interpretation Comments AMYLASE FLUID (BEAKER) (test code = 39 U/L 350) Absence of reference range indicates that normals have not been defined.Assay performance has not been validated for this type of specimen.RIGHT THORACENTESIS, PLEURAL FLUIDRIGHT THORACENTESIS, PLEURALFLUIDRIGHT THORACENTESIS, PLEURAL FLUIDRIGHT THORACENTESIS, PLEURAL FLUIDRIGHT THORACENTESIS, PLEURAL FLUIDRIGHT THORACENTESIS, PLEURAL FLUIDLACTATE DEHYDROGENASE (LDH), BODY [id number] 19:27:00 Test Item Value Reference Range Interpretation Comments LACTATE DEHYDROGENASE FLUID (BEAKER) 113 U/L (test code = 634) Absence of reference range indicates that normals have not been defined.Assay performance has not been validated for this type of specimen.RIGHT THORACENTESIS, PLEURAL FLUIDRIGHT THORACENTESIS, PLEURALFLUIDRIGHT THORACENTESIS, PLEURAL FLUIDRIGHT THORACENTESIS, PLEURAL FLUIDRIGHT THORACENTESIS, PLEURAL FLUIDRIGHT THORACENTESIS, PLEURAL FLUIDPROTEIN, BODY [id number] 19:27:00 Test Item Value Reference Range Interpretation Comments PROTEIN FLUID (BEAKER) (test code = 2.1 g/dL 579) Absence of reference range indicates that normals have not been defined.Assay performance has not been validated for this type of specimen.RIGHT THORACENTESIS, PLEURAL FLUIDRIGHT THORACENTESIS, PLEURALFLUIDRIGHT THORACENTESIS, PLEURAL FLUIDRIGHT THORACENTESIS, PLEURAL FLUIDRIGHT THORACENTESIS, PLEURAL FLUIDRIGHT THORACENTESIS, PLEURAL FLUIDGLUCOSE, BODY [id number] 19:27:00 Test Item Value Reference Range Interpretation Comments GLUCOSE, BODY FLUID (BEAKER) (test 172 mg/dL code = 1528) Absence of reference range indicates that normals have not been defined.Assay performance has not been validated for this type of specimen.RIGHT THORACENTESIS, PLEURAL FLUIDRIGHT THORACENTESIS, PLEURALFLUIDRIGHT THORACENTESIS, PLEURAL FLUIDRIGHT THORACENTESIS, PLEURAL FLUIDRIGHT THORACENTESIS, PLEURAL FLUIDRIGHT THORACENTESIS, PLEURAL FLUIDAFB CULTURE + [id number] 18:17:00 Test Item Value Reference Range Interpretation Comments CULTURE (BEAKER) (test No acid-fast bacilli code = 1095) isolated in 42 days AFB SMEAR (BEAKER) No acid fast bacilli (test code = 994) seen FUNGUS CULTURE + [id number] 19:24:00 Test Item Value Reference Range Interpretation Comments CULTURE (BEAKER) (test No fungus isolated in code = 1095) 28 days FUNGUS SMEAR (BEAKER) No fungi seen (test code = 1406) BLOOD [id number] 08:20:00 Test Item Value Reference Range Interpretation Comments CULTURE (BEAKER) (test No growth in 5 days code = 1095) BLOOD [id number] 08:13:00 Test Item Value Reference Range Interpretation Comments CULTURE (BEAKER) (test No growth in 5 days code = 1095) POCT-GLUCOSE [id number] 08:25:00 Test Item Value Reference Range Interpretation Comments POC-GLUCOSE METER 244 mg/dL 70-110 H TESTED AT [facility] 6720 (BEAKER) (test code = [place] 1538) [address] BASIC METABOLIC [id number] 05:31:00 Test Item Value Reference Range Interpretation [...] S NOT APPLICABLE FOR DIALYSIS PATIEN TS. [id number] 05:27:00 Test Item Value Reference Range Interpretation [...] 0-0 (BEAKER) (test code = 413) 0.00POCT-GLUCOSE [id number] 00:54:00 Test Item Value Reference Range Interpretation Comments POC-GLUCOSE METER 124 mg/dL 70-110 H TESTED AT [place] [address] ([facility]) (test code = [place] 1538) [address] POCT-GLUCOSE [id number] 17:10:00 Test Item Value Reference Range Interpretation Comments POC-GLUCOSE METER 146 mg/dL 70-110 H TESTED AT [place] [id number] ([facility]) (test code = [place] 1538) [address] BODY FLUID CULTURE + GRAM [id number] 15:37:00 Test Item Value Reference Range Interpretation Comments CULTURE (BEAKER) (test code No growth = 1095) GRAM STAIN RESULT (BEAKER) No WBCs (test code = 1123) GRAM STAIN RESULT (BEAKER) No organisms seen (test code = 34436) PERITONEAL DIALYSIS EFFLUENT [id number] 15:25:00 Test Item Value Reference Range Interpretation Comments CULTURE ([facility]) (test code = 1095) No growth POCT-GLUCOSE [id number] 12:03:00 Test Item Value Reference Range Interpretation Comments POC-GLUCOSE METER 170 mg/dL 70-110 H TESTED AT [place] [address] ([facility]) (test code = TANISHA Hut[place] [facility] 1538) [address] HEPATITIS C PCR, [id number] 09:44:00 Test Item Value Reference Range Interpretation Comments HCV NUMERIC RESULT ([facility]) 130331 IU/mL <15 H (test code = 2700) This test uses a Real-Time Polymerase Chain Reaction (RT-PCR) methodology and was performed using SHELLY Ampliprep/SHELLY TaqMan HCV test kit version 2.0 ([employer]).Reportable range for this assay is 15 - 100,000,000 IU per mL (1.18 - 8.00 Log IU/mL).POCT-GLUCOSE [id number] 08:07:00 Test Item Value Reference Range Interpretation Comments POC-GLUCOSE METER 183 mg/dL 70-110 H TESTED AT [place] [address] ([facility]) (test code = [facility] 1538) [address] CBC (HEMOGRAM ONLY)2016-06-08 06:53:00 Test Item Value Reference Range Interpretation Comments WHITE BLOOD CELL COUNT ([facility]) 6.2 K/ L 4.0-10.0 (test code = 775) RED BLOOD CELL COUNT ([facility]) 3.22 M/ L 4.00-5.00 L (test [...] (BEAKER) (test code = 413) 0.00BASIC METABOLIC [id number] 05:44:00 Test Item Value Reference Range Interpretation [...] S NOT APPLICABLE FOR DIALYSIS PATIEN TS. [id number] 05:41:00 Test Item Value Reference Range Interpretation Comments MAGNESIUM (BEAKER) (test code = 2.3 mg/dL 1.6-2.6 627) POCT-GLUCOSE [id number] 20:59:00 Test Item Value Reference Range Interpretation Comments POC-GLUCOSE METER 105 mg/dL 70-110 TESTED AT [facility] 6720 (BEAKER) (test code = [place] 1538) [address] POCT-GLUCOSE [id number] 17:58:00 Test Item Value Reference Range Interpretation Comments POC-GLUCOSE METER 129 mg/dL 70-110 H TESTED AT [facility] 6720 (BEAKER) (test code = [place] 1538) [address] POCT-GLUCOSE [id number] 17:58:00 Test Item Value Reference Range Interpretation Comments POC-GLUCOSE METER 138 mg/dL 70-110 H [facility] 67[address] [facility] (test code = [place] 1538) [address] ANTI-NUCLEAR ANTIBODY ([place])2016-06-07 14:51:00 Test Item Value Reference Range Interpretation Comments ANTI-NUCLEAR ANTIBODY ([place]) (BEAKER) Negative Negative (test code = 418) [id number] 09:26:00 Test Item Value Reference Range Interpretation Comments PHOSPHORUS (BEAKER) (test code = 7.8 mg/dL 2.3-4.7 H 604) POCT-GLUCOSE [id number] 08:18:00 Test Item Value Reference Range Interpretation Comments POC-GLUCOSE METER 140 mg/dL 70-110 H TESTED AT [facility] 6720 [facility] (test code = [place] 1538) [address] CBC (HEMOGRAM ONLY)2016-06-07 07:53:00 Test Item Value [...] (BEAKER) (test code = 413) 0.00BASIC METABOLIC [id number] 07:30:00 Test Item Value Reference Range Interpretation [...] S NOT APPLICABLE FOR DIALYSIS PATIEN TS. [id number] 07:29:00 Test Item Value Reference Range Interpretation Comments MAGNESIUM (BEAKER) (test code = 1.7 mg/dL 1.6-2.6 627) VANCOMYCIN LEVEL, [id number] 07:28:00 Test Item Value Reference Range Interpretation Comments VANCOMYCIN RANDOM (BEAKER) (test 18.5 ug/mL code = 523) Reference Range: No NormalsPOCT-GLUCOSE [id number] 21:54:00 Test Item Value Reference Range Interpretation Comments POC-GLUCOSE METER 112 mg/dL 70-110 H TESTED AT [place] [address] ([facility]) (test code = [place] 1538) [address] [id number] 19:10:00 Test Item Value Reference Range Interpretation Comments ACTIVATED CLOTTING TIME 337 sec TEST ED AT [place] [address] ([facility]) (test code = [place] 441) [address] [id number] 16:26:00 Test Item Value Reference Range Interpretation Comments PARTIAL THROMBOPLASTIN TIME 83.0 seconds 22.5-36.0 H ([facility]) (test code = 760) HEPATIC FUNCTION [id number] 14:54:00 Test Item Value Reference Range Interpretation [...] (test code = 18 U/L 6-55 347) [id number] 13:30:00 Test Item Value Reference Range Interpretation Comments FERRITIN (BEAKER) (test code = 361) 343 ng/mL 5-275 H Effective 01/28/2014: Reference Range ChangeNew: Male 5-275 Previous: Male 22-322 Female 5-275 Female 99-706KSVG-MDCRSMT [id number] 13:01:00 Test Item Value Reference Range Interpretation Comments POC-GLUCOSE METER 121 mg/dL 70-110 H TESTED AT [facility] 67[address] [facility] (test code = [place] 1538) [address] HEPATITIS C [id number] 11:01:00 Test Item Value Reference Range Interpretation Comments HEPATITIS C ANTIBODY (BEAKER) (test Reactive Nonreactive A code = 367) HEPATITIS B SURFACE [id number] 10:32:00 Test Item Value Reference Range Interpretation Comments HEPATITIS B SURFACE ANTIGEN (2) Nonreactive Nonreactive (BEAKER) (test code = 2585) HEPATITIS B SURFACE [id number] 10:32:00 Test Item Value Reference Range Interpretation Comments HEPATITIS B SURFACE ANTIBODY 71.3 mIU/mL <8.0 H (BEAKER) (test code = 647) HEPATITIS A ANTIBODY, [id number] 10:32:00 Test Item Value Reference Range Interpretation Comments HEPATITIS A IGM ANTIBODY (BEAKER) Nonreactive Nonreactive (test code = 498) HEPATITIS B CORE ANTIBODY, [id number] 10:32:00 Test Item Value Reference Range Interpretation Comments HEPATITIS B CORE TOTAL ANTIBODY Nonreactive Nonreactive (BEAKER) (test code = 497) LACTATE DEHYDROGENASE (LDH), BODY [id number] 10:24:00 Test Item Value Reference Range Interpretation [...] % 20-55 (test code = 2590) PROTEIN, [id number] 09:36:00 Test Item Value Reference Range Interpretation Comments TOTAL PROTEIN (BEAKER) (test code = 6.5 gm/dL 6.0-8.3 770) LACTATE DEHYDROGENASE (LDH)2016-06-06 09:36:00 Test Item Value Reference Range Interpretation Comments LACTATE DEHYDROGENASE (BEAKER) (test 248 U/L 125-220 H code = 635) [id number] 09:32:00 Test Item Value Reference Range Interpretation Comments PARTIAL THROMBOPLASTIN TIME 72.0 seconds 22.5-36.0 H (BEAKER) (test code = 760) Prior to initiating heparinPROTHROMBIN TIME/[id number] 09:30:00 Test Item Value Reference Range Interpretation [...] 0-0 (BEAKER) (test code = 413) PLATELET [id number] 09:15:00 Test Item Value Reference Range Interpretation Comments PLATELET COUNT (BEAKER) (test 185 K/CU MM 150-430 code = 756) POCT-GLUCOSE [id number] 08:01:00 Test Item Value Reference Range Interpretation Comments POC-GLUCOSE METER 119 mg/dL 70-110 H TESTED AT [facility] 6720 (BEAKER) (test code = [place] 1538) [address] [id number] 04:10:00 Test Item Value Reference Range Interpretation Comments MAGNESIUM (BEAKER) (test code = 1.8 mg/dL 1.6-2.6 627) BASIC METABOLIC [id number] 04:10:00 Test Item Value Reference Range Interpretation [...] S NOT APPLICABLE FOR DIALYSIS JENNIFER SOW [id number] 04:09:00 Test Item Value Reference Range Interpretation [...] 0-0 (BEAKER) (test code = 413) 0.00POCT-GLUCOSE [id number] 00:10:00 Test Item Value Reference Range Interpretation Comments POC-GLUCOSE METER 235 mg/dL 70-110 H TESTED AT [facility] 6720 (BEAKER) (test code = [place] 1538) [address] GRAM [id number] 23:45:00 Test Item Value Reference Range Interpretation Comments GRAM STAIN RESULT (BEAKER) <1+ WBCs (test code = 1123) GRAM STAIN RESULT (BEAKER) No organisms seen (test code = 22541) BODY FLUID CELL COUNT WITH [id number] 20:12:00 Test Item Value Reference Range Interpretation [...] = 2873) BODY FLUID CELL COUNT WITH [id number] 19:33:00 Test Item Value Reference Range Interpretation [...] Tube (test code = 2873) PROTEIN, BODY [id number] 19:01:00 Test Item Value Reference Range Interpretation [...] FLUID (BEAKER) (test code = 7.73 1530) [id number] 18:22:00 Test Item Value Reference Range Interpretation Comments PARTIAL THROMBOPLASTIN TIME 36.7 seconds 22.5-36.0 H (BEAKER) (test code = 760) PROTHROMBIN [id number] 18:20:00 Test Item Value Reference Range Interpretation Comments PROTIME (BEAKER) (test code = 15.3 seconds 11.7-14.7 H 759) INR (BEAKER) (test code = 370) 1.2 <=5.9 RECOMMENDED COUMADIN/WARFARIN INR THERAPY RANGESSTANDARD DOSE: 2.0 - 3.0 Includes: PROPHYLAXIS forvenous thrombosis, systemic embolization; TREATMENT for venous thrombosis and/or pulmonary embolus.HIGH RISK: Target INR is 2.5-3.5 for patients with mechanical heart valves.POCT-GLUCOSE [id number] 18:04:00 Test Item Value Reference Range Interpretation Comments POC-GLUCOSE METER 182 mg/dL 70-110 H TESTED AT [facility] 6720 (BEAKER) (test code = [place] 1538) [address] CREATINE KINASE (CK), TOTAL AND [id number] 16:32:00 Test Item Value Reference Range Interpretation Comments CREATINE KINASE TOTAL (BEAKER) 247 U/L 29-200 H (test code = 380) CREATINE KINASE-MB (BEAKER) (test 8.4 ng/mL 0.0-6.6 H code = 750) CREATINE KINASE-MB INDEX (BEAKER) 3.4 % (test code = 395) Effective 01/28/2014: CK-MB Reference Range ChangeNew: 0.0-6.6 Previous: 0.0-4.9CK-MB Reference Range:<6.7 Normal6.7-10.0 Borderline>10.0 AbnormalTROPONIN [id number] 16:32:00 Test Item Value Reference Range Interpretation [...] acute neurological disease, and persistent tachyarrhythmia.BASIC METABOLIC [id number] 16:31:00 Test Item Value Reference Range Interpretation [...] S NOT APPLICABLE FOR DIALYSIS PATIEN TS. [id number] 16:26:00 Test Item Value Reference Range Interpretation Comments PHOSPHORUS (BEAKER) (test code = 8.1 mg/dL 2.3-4.7 H 604) [id number] 16:26:00 Test Item Value Reference Range Interpretation Comments MAGNESIUM (BEAKER) (test code = 1.9 mg/dL 1.6-2.6 627) HEPATIC FUNCTION [id number] 16:26:00 Test Item Value Reference Range Interpretation [...] 6-55 347) CBC W/PLT COUNT & AUTO [id number] 16:07:00 Test Item Value Reference Range Interpretation [...] code = 417) 0.00LACTIC ACID, VENOUS, WHOLE [id number] 16:06:00 Test Item Value Reference Range Interpretation Comments LACTATE BLOOD VENOUS (2) (BEAKER) 1.5 mmol/L 0.5-2.2 (test code = 2872) Effective 07/15/2015: Units/Reference Range ChangeNew: 0.5-2.2 mmol/L Previous: 5-20 mg/dLBLOOD GAS, [id number] 15:57:00 Test Item Value Reference Range Interpretation [...] (test code = 1819) 21.0 % POCT-GLUCOSE [id number] 12:45:00 Test Item Value Reference Range Interpretation Comments POC-GLUCOSE METER 201 mg/dL 70-110 H TESTED AT [facility] 6720 (BEAKER) (test code = [facility] 1538) [address] POCT-GLUCOSE [id number] 08:26:00 Test Item Value Reference Range Interpretation Comments POC-GLUCOSE METER 181 mg/dL 70-110 H TEST[facility] AT [facility] 6720 [facility] (test code = [facility] 1538) [address] [id number] 07:00:00 Test Item Value Reference Range Interpretation Comments FERRITIN (BEAKER) (test code = 361) 337 ng/mL 5-275 H Effective 01/28/2014: Reference Range ChangeNew: Male 5-275 Previous: Male 22-322 Female 5-275 Female [id number] 06:20:00 Test Item Value Reference Range Interpretation Comments MAGNESIUM (BEAKER) (test code = 1.8 mg/dL 1.6-2.6 627) BASIC METABOLIC [id number] 06:20:00 Test Item Value Reference Range Interpretation [...] = 2590) CBC W/PLT COUNT & AUTO [id number] 06:00:00 Test Item Value Reference Range Interpretation [...] L 0.00-0.20 (test code = 417) 0.00POCT-GLUCOSE [id number] 17:21:00 Test Item Value Reference Range Interpretation Comments POC-GLUCOSE METER 196 mg/dL 70-110 H TESTED AT [place] [address] ([facility]) (test code = TANISHA Hut[place] [facility] 1538) [address] POCT-GLUCOSE [id number] 12:54:00 Test Item Value Reference Range Interpretation Comments POC-GLUCOSE METER 190 mg/dL 70-110 H TESTED AT [place] [address] ([facility]) (test code = TANISHA Hutson [facility] 1538) [address] HEMOGLOBIN AND [id number] 11:25:00 Test Item Value Reference Range Interpretation Comments HEMOGLOBIN (BEAKER) (test code = 9.1 GM/DL 12.0-15.0 L 410) HEMATOCRIT (BEAKER) (test code = 27.2 % 36.0-45.0 L 411) POCT-GLUCOSE [id number] 07:54:00 Test Item Value Reference Range Interpretation Comments POC-GLUCOSE METER 116 mg/dL 70-110 H TESTED AT [facility] 6720 (BEAKER) (test code = [place] 1538) [address] [id number] 05:00:00 Test Item Value Reference Range Interpretation Comments PHOSPHORUS (BEAKER) (test code = 8.0 mg/dL 2.3-4.7 H 604) BASIC METABOLIC [id number] 01:32:00 Test Item Value Reference Range Interpretation [...] PATIEN TS. CBC W/PLT COUNT & AUTO [id number] 01:18:00 Test Item Value Reference Range Interpretation [...] L 0.00-0.20 (test code = 417) 0.00POCT-GLUCOSE [id number] 22:11:00 Test Item Value Reference Range Interpretation Comments POC-GLUCOSE METER 200 mg/dL 70-110 H TESTED AT [facility] 6720 (BEAKER) (test code = [place] 1538) [address] POCT-GLUCOSE [id number] 18:17:00 Test Item Value Reference Range Interpretation Comments POC-GLUCOSE METER 206 mg/dL 70-110 H TESTED AT [facility] 6720 (BEAKER) (test code = [place] 1538) [address] [id number] 17:39:00 Test Item Value Reference Range Interpretation Comments POTASSIUM (BEAKER) (test code = 4.7 meq/L 3.5-5.1 379) BASIC METABOLIC [id number] 11:55:00 Test Item Value Reference Range Interpretation [...] S NOT APPLICABLE FOR DIALYSIS PATIEN TS. [id number] 11:42:00 Test Item Value Reference Range Interpretation [...] K/ L 0.00-0.20 (test code = 417) 0.93UYHEBGWXCD3167-67-11 11:36:000.1[facility] RshzpgqLMDCUWBDPW9444-31-49 11:36:008.0[facility] QtsiarcEBVMLZIJIA8023-26-69 11:36:0019.2[facility] [place] EZIOMIZQYX6529-44-09 11:36:0069.5[facility] ZwhvuxdOKUEQRPUCV3749-35-41 11:36:00 2.3[facility] TeqvuzcDXPQCFEODE1756-43-06 11:36:00 Test Item Value Reference Range Interpretation Comments PTT (test code = PTT) 35.1 s 22.9-35.8 [facility] NnikcxnBXSSQULUFK8155-42-87 11:36:001.09[facility] 2015-[facility]-01 11:36:00 Test Item Value Reference Range Interpretation Comments PT (test code = PT) 14.4 s 12.0-14.7 [facility] XytdzfxBUAVPNANGQ6494-95-45 11:36:009.3[facility] 2015-07-01 11:36:003.21[facility] IvkaldpWHOUBFXQOM4372-71-55 11:36:006.3[facility] QvcntgnXXRLTNUSIF4622-96-17 11:36:0088.4[facility] AbrbmdkBZWFEFPPWP1860-41-51 11:36:0028.4[facility] YsgbfjzVEROWBOQWC3295-37-00 11:36:23950Gbiycgap [place] QZXHVOCDZY7463-14-63 11:36:0014.9[facility] ZwgoicrZVSCOWWZLS3359-10-30 11:36:00 32.7[facility] YughzkcRAHQKCFKWU4023-36-27 11:36:00 Test Item Value Reference Range Interpretation Comments MCH (test code = MCH) 28.9 pg 27.0-31.0 [facility] CsmfhvhTVLXUWMHRX8853-65-78 11:36:008.9[facility]ann[facility]LECTROLYTES 2015-07-01 11:36:03334Gdcyjtde XuykmceESYCIFRUEOGC2335-20-45 11:36:0019[facility] MzbtitgVOVMMPOEZYJX6105-66-99 11:36:008.5[facility] VgkryrhBVKQLNGGLMEQ4981-83-49 11:36:91636Luyyeiur GedmajrWUVKVKRDRFBO5581-92-50 11:36:37993Ipmdeace [place] VZCSBHIFAQXN4349-47-92 11:36:004.6[facility] PfkofqaHEIFCHIGJWCT8861-24-58 11:36:0050[facility] YiospehMTFLPIIWSLKZ8775-08-96 11:36:008.31[facility] [place] RZLGCLUNCDXI4236-03-07 11:36:006[facility] ZoyrfqgUINWUIGEPASI8254-79-86 11:36:00 14.6[facility] QjhyhamSBPNSTKPHN1836-04-77 11:36:001.2[facility] 2015-07-01 11:36:001.0[facility] FbgdaidUQSOIQNTXY4021-92-23 11:36:004.4[facility] IxfcvrrVAVMXTSEEC0969-28-40 11:36:000.5[facility] DtdsygeBNHFTQXVXG2170-57-96 11:36:000.1[facility] TaiwxgsJBXWBQVRPK3963-13-52 11:36:000.1[facility] [place] UDGXFIVIYO0558-09-05 11:36:008.0[facility] XkjfftcGALEMEVLYT7785-33-40 11:36:00 19.2[facility] JykqnyfBXFNIPCZVO0005-29-72 11:36:0069.5[facility]annHEMATOLOGY 2015-07-01 11:36:002.3[facility] SpwolpzFFPWADHTSI0089-97-49 11:36:00 Test Item Value Reference Range Interpretation Comments PTT (test code = PTT) 35.1 s 22.9-35.8 [facility] OzgglkoXAELJSCACB3004-43-55 11:36:001.09[facility]annHEMATOLOGY 2015-07-01 11:36:00 Test Item Value Reference Range Interpretation Comments PT (test code = PT) 14.4 s 12.0-14.7 [facility] GiivsvcUCPMUECHZI9139-76-30 11:36:009.3[facility]annHEMATOLOGY 2015-07-01 11:36:003.21[facility] IaxmybgSNNANMLEPQ6822-15-51 11:36:006.3[facility] WjnduucBHCKXORNCS6367-80-04 11:36:0088.4[facility] WtmaocdWKAYLHBHIN7401-06-04 11:36:0028.4[facility] QwtixnyUKCPATVYMS9077-55-70 11:36:85275Gfnmdbzz [place] BMORMUBDTP9429-78-55 11:36:0014.9[facility] IiryacdJFPBYXKOOV6159-58-18 11:36:00 32.7[facility] FiusuzaBRECHQMVNX3181-71-30 11:36:00 Test Item Value Reference Range Interpretation Comments MCH (test code = MCH) 28.9 pg 27.0-31.0 [facility] WtswuokFWIGKLNZRM8907-32-15 11:36:008.9[facility] HermannELECTROLYTES 2015-07-01 11:36:59592Nrilfeik RzjgfstGBJZDXLTSXXW0381-33-71 11:36:0019[facility] IawehzyZCKLLMFYDLOR4474-43-92 11:36:008.5[facility] YhoklbwVTAQIFLQTDOH0685-10-66 11:36:19135Iflbadoc FihdmudMWQBLIJINTMB1871-35-63 11:36:67482Hbjftqkh [place] ZAKFCCUDMPIP3656-73-37 11:36:004.6[facility] IsepvpzXREYACMRIOAL9998-93-15 11:36:0050[facility] OdtmzzwUTTKHGCXZKWK6343-03-11 11:36:008.31[facility] RUOXBXNBXDBS3229-87-26 11:36:006[facility] MvyhtvmFYRULTFLJZZZ8705-11-63 11:36:00 14.6[facility] UitrzrlATWYKZNXYG4733-50-27 11:36:001.2[facility]annHEMATOLOGY 2015-07-01 11:36:001.0[facility] VjviyryOFCMHPJXNQ6997-25-22 11:36:004.4[facility] SnhguewAHURQFRNYP0765-42-97 11:36:000.5[facility] SmbqsquYHMIBPDUXT0585-56-28 11:36:000.1[facility] HermannCARDIAC FOBMQHC8263-13-75 17:02:000.10[facility] HermannCHEM TFBFL4301-90-33 17:02:59206Dbgblyzk HermannCHEM PEZVU4882-66-98 17:02:007[facility]annCHEM UGGOE6493-98-31 17:02:005.4[facility]annCHEM OTGMP9983-89-26 17:02:000.3[facility]annCHEM PDOYA9766-30-12 17:02:0012.1 [facility]annCHE[facility] RJWUS3584-57-44 17:02:007[facility]annCHEM PANEL 2015-06-17 17:02:0045[facility]annCHEM YWAVM7095-07-01 17:02:001.8[facility]annCHEM YUYOI6171-41-75 17:02:0037[facility]annCHEM KDBHG1654-44-50 17:02:000.3[facility]annCHEM SPYKI0399-78-97 17:02:0084[facility]annCHEM QLYTV8659-59-99 17:02:007.2[facility]annCHEM ARTAK4983-51-43 17:02:008.4 [facility]annCHEM HIHTB7091-76-27 17:02:15185Pyzklkfi HermannCHEM PANEL 2015-06-17 17:02:005.1[facility] HermannCHEM PKGRG5299-00-93 17:02:26300Wukdscur HermannCHEM RMVVZ2338-26-87 17:02:0021[facility]annCHEM STLGD0637-35-46 17:02:44760Nukstdub HermannCHEM NTWLP4271-22-30 17:02:007.50[facility] HermannCHEM EPTIA9698-69-42 17:02:0052[facility] UamiteaMZQIOBWKQH2116-48-74 17:02:000.4 [facility] RxenlmsAPXZPFAUAJ7598-46-21 17:02:000.0[facility]annHEMATOLOGY 2015-06-17 17:02:000.1[facility] TriipxyHQYQIPFVVI5499-44-87 17:02:0027.3[facility] RochbdbTZFIHNGBMT6301-07-66 17:02:0065.3[facility] FrekjpuTXSEVUIAOF2952-37-92 17:02:004.4[facility] HxpfegnOAXFCDMELU6578-84-31 17:02:000.5[facility] [place] FDNJLDFYOZ7837-24-62 17:02:001.3[facility] GazfcztXNRKQDMPXZ1172-42-31 17:02:005.6 [facility] KduvwsbUSCTVPOHHC5195-95-00 17:02:001.9[facility]annHEMATOLOGY 2015-06-17 17:02:0028.8[facility] FfsunadBZZOIQLVTN1071-31-63 17:02:009.3[facility] JhbgdwrFSHFDMINCD3482-83-45 17:02:003.24[facility] AwocmqdICNCVJEPIQ2004-26-02 17:02:00 Test Item Value Reference Range Interpretation Comments MCH (test code = MCH) 28.8 pg 27.0-31.0 [facility] VhimujoIXMJIWSVLE3079-78-19 17:02:0088.8[facility] HermannHEMATOLOGY 2015-06-17 17:02:04295Cgjdfpic TtfzfynVJWMTJWRZK7251-27-31 17:02:0015.2[facility] OmhmszeIWGNIZQJUM7465-65-07 17:02:0032.4[facility] YorirgnHGXCJNIPML3039-52-81 17:02:009.3[facility] GwnzeddTHIXCIJVEP2984-76-72 17:02:006.8[facility]annURINE AND STSUG8520-46-25 17:02:00Yellow *NA*(06/17/15 12:02 PM)[facility] MJPGH0650-50-57 17:02:00Clear (06/17/15 12:02 PM)[facility] WRRCE2787-09-07 17:02:00Negative (06/17/15 12:02 PM)[facility] LQWNE8718-43-67 17:02:000.2[facility] COTCU2017-86-66 17:02:00 Moderate *ABN*(06/17/15 12:02 PM)[facility] IYXPK5180-64-26 17:02:00Negative (06/17/15 12:02 PM)[facility] SJPAP8088-81-90 17:02:00Negative *NA*(06/17/15 12:02 PM)[facility] VGUAX3101-09-78 17:02:00Negative *NA*(06/17/15 12:02 PM)[facility] XWJWO9234-09-77 17:02:00 Test Item Value Reference Range Interpretation Comments UA pH (test code = UA pH) 6.5 1 5.0-8.0 [facility] UHBTR6857-39-39 17:02:00 Test Item Value Reference Range Interpretation Comments UA Spec Grav (test code = UA Spec 1.020 1 Grav) [facility] KIQM6366-10-57 17:02:00Negative (06/17/15 12:02 PM)[facility]annCARDIAC SLQMCDU8758-50-75 17:02:000.10[facility] HermannCHEM PANEL 2015-06-17 17:02:92079Jbyjsnht HermannCHEM BCVDJ1001-06-65 17:02:007[facility]annCHEM UTYBK7741-63-72 17:02:005.4[facility]annCHEM IYQZG2444-83-45 17:02:000.3[facility]annCHEM LVNYC1956-03-52 17:02:0012.1[facility]annCHEM XERRC2750-44-85 17:02:007[facility]annCHEM GQLNE1823-11-52 17:02:0045 [facility]annCHE[facility] BJICP3577-09-47 17:02:001.8[facility] HermannCHEM PANEL 2015-06-17 17:02:0037[facility] HermannCHEM CWENO7412-02-02 17:02:000.3[facility]annCHEM QJURK4539-90-88 17:02:0084[facility]annCHEM ZPKDX9637-70-56 17:02:007.2[facility]annCHEM JQTXI4157-44-44 17:02:008.4[facility]annCHEM PRHKR0825-39-05 17:02:23092Vuyrkjjj HermannCHEM YKXIQ7360-50-76 17:02:005.1 [facility]annCHEM DOKCL8917-02-75 17:02:31623Odbaptob HermannCHEM PANEL 2015-06-17 17:02:0021[facility] HermannCHEM WSETF0496-99-37 17:02:64956Vvfoyygl HermannCHEM DOHFA6741-32-58 17:02:007.50[facility]annCHEM TNCZA7922-36-49 17:02:0052[facility] AekfeczNJLFDCVMBB9842-85-96 17:02:000.4[facility] EQDEZWPGPH1066-45-29 17:02:000.0[facility] ZjxegrtHDKYKTEOAI9532-59-43 17:02:000.1 [facility] AvrpotpUARADATUMX1469-45-21 17:02:0027.3[facility]annHEMATOLOGY 2015-06-17 17:02:0065.3[facility] MlwqnybFJRHVQRULL4883-61-64 17:02:004.4[facility] YjlpdwrMQKJKVBNOF7975-24-78 17:02:000.5[facility] AelpqrfPINLWGNPKO1434-10-94 17:02:001.3[facility] KrbflmqQTBLEZIFPY4337-19-42 17:02:005.6[facility] GAQCPHQTAM4397-24-14 17:02:001.9[facility] FsroaivUVGXCYXGZO6021-42-40 17:02:00 28.8[facility] IdtsdzvIWIDRXLVUS0377-78-23 17:02:009.3[facility] HermannHEMATOLOGY 2015-06-17 17:02:003.24[facility] ZbcdqxsNLHQOGAWAC2406-43-89 17:02:00 Test Item Value Reference Range Interpretation Comments MCH (test code = MCH) 28.8 pg 27.0-31.0 [facility] UiirwopIRPNELWZAS7203-91-58 17:02:0088.8[facility] HermannHEMATOLOGY 2015-06-17 17:02:64932Wkaacnmy IpdspijNHMTDXKHXN5870-27-68 17:02:0015.2[facility] FuhappwGQKIHBUDNM4688-62-68 17:02:0032.4[facility] QzxbvpcOETEQZCSAC3053-28-78 17:02:009.3[facility] ZsmfcseVRGSACIDCC6900-94-08 17:02:006.8[facility]annUR[facility] AND AJHGI5495-41-36 17:02:00Yellow *NA*(06/17/15 12:02 PM)[facility] HGOMC0159-92-26 17:02:00Clear (06/17/15 12:02 PM)[facility] GPDZX6526-51-34 17:02:00Negative (06/17/15 12:02 PM)[facility] LSYQU8151-11-95 17:02:000.2[facility] WBDKM5026-32-26 17:02:00 Moderate *ABN*(06/17/15 12:02 PM)[facility] VZICA6998-29-35 17:02:00Negative (06/17/15 12:02 PM)[facility] UQYVO7611-53-30 17:02:00Negative *NA*(06/17/15 12:02 PM)[facility] MTGRM2887-34-35 17:02:00Negative *NA*(06/17/15 12:02 PM)[facility] ZABSV0851-95-46 17:02:00 Test Item Value Reference Range Interpretation Comments UA pH (test code = UA pH) 6.5 1 5.0-8.0 [facility] BQJNQ5961-70-39 17:02:00 Test Item Value Reference Range Interpretation Comments UA Spec Grav (test code = UA Spec 1.020 1 Grav) [facility] MCZF6390-81-29 17:02:00Negative (06/17/15 12:02 PM)[facility]annCHEM FXEMN0580-49-96 21:21:000.4[facility]annCHEM HDOOL2603-46-82 21:21:0018[facility]annCHEM UXDNU2339-34-90 21:21:005.0[facility]annCHEM FIZIL0819-25-91 21:21:0011.8[facility]annCHEM BBSVV8462-58-98 21:21:0049 [facility]annCHEM FUOEJ2028-14-72 21:21:13052Sejtcqho HermannCHEM PANEL 2014-08-29 21:21:0027[facility]annCHEM JTZBM9731-44-42 21:21:001.5[facility]annCHEM OYTMN1374-59-78 21:21:0022[facility]annCHEM XBLZC3459-24-07 21:21:008.7[facility]annCHEM TSHMB1887-84-82 21:21:003.8[facility]annCHEM YQJVV2315-14-67 21:21:87205Scieowhq HermannCHEM TABOH4248-17-34 21:21:85214 [facility]annCHE[facility] ZUPTR4732-20-05 21:21:0029[facility] HermannCHEM PANEL 2014-08-29 21:21:0061[facility]annCHEM FSINW8093-65-88 21:21:001.9[facility]annCHEM NCZTR8505-08-57 21:21:0039[facility]annCHEM RMOHX7457-66-65 21:21:006.9[facility]annCHEM OGVBW9921-92-39 21:21:000.3[facility] [place] LYQQKRXRMU0362-04-38 21:21:000.6[facility] EusjztkKYXXMCYPZT2220-98-13 21:21:001.9 [facility] YdfmmyqGULEPZCMHV0094-64-50 21:21:000.0[facility]annHEMATOLOGY 2014-08-29 21:21:000.0[facility] QbfytohXESMXLGDDM9326-82-04 21:21:000.1[facility] YoctcxjYJXPHDISCA2827-17-75 21:21:003.8[facility] UjibeykVBRZASBRQX8133-66-95 21:21:000.2[facility] PyuypqnUFWDSSMZGY2444-98-40 21:21:0013.9[facility] ZQOUIOCNNF7293-20-30 21:21:0084.1[facility] BeyvfcsFIQRZXZTFL1698-47-77 21:21:00 11.8[facility] PxpdhlbFTXBKCCKOM5900-47-17 21:21:00 Test Item Value Reference Range Interpretation Comments PTT (test code = PTT) 32.7 s 22.9-35.8 [facility] NyokweiYTFXHVJETB8410-60-99 21:21:00 Test Item Value Reference Range Interpretation Comments PT (test code = PT) 12.4 s 12.0-14.7 [facility] PsunjwbACZQQIYGMX7346-76-15 21:21:000.93[facility]annHEMATOLOGY 2014-08-29 21:21:009.5[facility] HmkrydwPBXQAALJLV3833-31-20 21:21:0032.4[facility] MsvlfndFGRGJWSOXW4419-36-19 21:21:0014.2[facility] LcjlpzhKYBHRIJGAC0813-53-66 21:21:40804Wiazzeyt JpznoicHRKGZDNWCT2692-51-68 21:21:0087.9[facility] PWZTQSECNZ5592-09-00 21:21:0016.5[facility] PgeejuiSGVTOCUTDA5014-45-62 21:21:00 4.32[facility] QvnkexjIEMCBUEHMI2149-58-89 21:21:0012.3[facility] HermannHEMATOLOGY 2014-08-29 21:21:0037.9[facility] HmtgvguNYDRQTXYJN6533-95-85 21:21:00 Test Item Value Reference Range Interpretation Comments MCH (test code = MCH) 28.5 pg 27.0-31.0 [facility]annCHEM YTCWZ9037-87-81 21:21:000.4[facility] HermannCHEM PANEL 2014-08-29 21:21:0018[facility]annCHEM MFPFV4402-13-14 21:21:005.0[facility]annCHEM CDLRB6675-65-77 21:21:0011.8[facility] HermannCHEM KNIMM6018-72-00 21:21:0049[facility]annCHEM PYDCU7588-77-04 21:21:22631Nxtlunfl HermannCHEM SPVJB3220-35-27 21:21:0027[facility]annCHEM YQXDU6406-45-33 21:21:001.5 [facility]annCHEM DIHKV3112-47-31 21:21:0022[facility] HermannCHEM PANEL 2014-08-29 21:21:008.7[facility] HermannCHEM NJMNT8367-03-11 21:21:003.8[facility]annCHEM DDGEB6044-78-38 21:21:31877Faenqiza HermannCHEM MXMNM9784-54-58 21:21:78947Crkfqamq HermannCHEM CNRWL5239-58-86 21:21:0029[facility]annCHEM RKAAP8732-21-07 21:21:0061[facility]annCHEM DUTZJ6031-79-44 21:21:001.9 [facility]annCHEM NJMVQ9579-49-94 21:21:0039[facility] HermannCHEM PANEL 2014-08-29 21:21:006.9[facility] HermannCHEM HPHZH0062-75-21 21:21:000.3[facility] BwlrgdiEUKDPYMMWJ0844-56-49 21:21:000.6[facility] PkhhpluHVQIEERXYO3800-08-58 21:21:001.9[facility] VzzflkfLWFQSREPZX9557-76-49 21:21:000.0[facility] DTCWGODVRD2673-63-76 21:21:000.0[facility] GumqfzcWCZTYCXFPF6823-51-83 21:21:000.1 [facility] NzmptruYIILCHQRXA8058-43-12 21:21:003.8[facility] HermannHEMATOLOGY 2014-08-29 21:21:000.2[facility] KmicsomEGQQRMJFFX0099-65-32 21:21:0013.9[facility] TnoasktSWZMESNZCC7575-15-99 21:21:0084.1[facility] OdkwhbwDIRPVZOLIK3731-14-22 21:21:0011.8[facility] XppxnrgKEHDBHOLXX8290-28-52 21:21:00 Test Item Value Reference Range Interpretation Comments PTT (test code = PTT) 32.7 s 22.9-35.8 [facility] UkqddsgRTCAJFZPBU8528-13-48 21:21:00 Test Item Value Reference Range Interpretation Comments PT (test code = PT) 12.4 s 12.0-14.7 [facility] RqpsocvPIQBLCXONQ0180-97-95 21:21:000.93[facility] HermannHEMATOLOGY 2014-08-29 21:21:009.5[facility] HsozlacQXTCNWQTWS2362-91-17 21:21:0032.4[facility] TttwufkVPQJUVOHKH2762-23-55 21:21:0014.2[facility] UoiyqlyYNZVANPUPA3914-75-89 21:21:68470Afpvwhpp PjsftzfAQZUWUQDMB7054-22-91 21:21:0087.9[facility] SGVHJDPXES7928-29-75 21:21:0016.5[facility] IeyhiecVBNHBVYGSM5842-95-58 21:21:00 4.32[facility] NsboczsHWMZIFUIBY9458-85-53 21:21:0012.3[facility] HermannHEMATOLOGY 2014-08-29 21:21:0037.9[facility] QgcyhzvMXRDVLWTBL4323-81-10 21:21:00 Test Item Value Reference Range Interpretation Comments [facility] (test code = MCH) 28.5 pg 27.0-31.0 [facility]
[2020-06-09 07:40] LABS: Protime INR 1.09
[2020-06-09 07:41] LABS: Absolute Lymphocytes (CBC) 0.6 K/uL (0.7-4.9); Basophils % 0.8 % (0-1.3); Hematocrit 36.1 % (36.0-45.0); Lymphocytes % 10.6 % (15.3-44.8); MPV 9.5 fL (7.6-11.3); RBC Red Blood Cell Count 3.96 M/uL (3.86-4.86)
[2020-06-09] MEDS ORDERED: FAMOTIDINE 20 MG/2 ML VIAL IV ONE (08:00)
[2020-06-09] MEDS ORDERED: ONDANSETRON 4 MG/2 ML VIAL ONE (08:00)
[2020-06-09] MEDS ORDERED: NA CHLORIDE 0.9% 500 ML ONE (08:00)
[2020-06-09 08:29] LABS: Albumin 3.6 g/dL (3.4-5.0); Alkaline Phosphatase 151 U/L (45-117); BUN Blood Urea Nitrogen 121 mg/dL (7-18); Bicarbonate 19 mmol/L (21-32); Bilirubin Direct 0.3 mg/dL (0-0.2); Bilirubin Total 0.7 mg/dL (0.2-1.0); Glucose Level 88 mg/dL (74-106); Magnesium 2.7 mg/dL (1.8-2.4); NT PRO-BNP > 175000 pg/mL (<125); Protein, Total 10.6 g/dL (6.4-8.2); Sodium Level 134 mmol/L (136-145)
[2020-06-09 08:31] LABS: ALT/SGPT 759 U/L (12-78); AST/SGOT 402 U/L (15-37); Potassium 6.3 mmol/L (3.5-5.1)
[2020-06-09] MEDS ORDERED: ALBUTEROL 2.5 MG/3 ML NEB SOL ONE (09:10)
[2020-06-09] MEDS ORDERED: D50W 25 GM/50 ML SYRINGE IV ONE (09:11)
[2020-06-09] MEDS ORDERED: INSULIN -REGULAR HUMAN 50 UNIT/0.5 ML ML ONE (09:11)
[2020-06-09] MEDS ORDERED: CALCIUM GLUCONATE 1 GM IVPB 1 GM/50 ML BAG IV ONE ×2 (09:11→11:04)
--- NOTE | 2020-06-09 09:33 | RAD REPORT ---
EXAM DESCRIPTION: RAD - Chest Single View - 06/09/2020 8:25 am CLINICAL HISTORY: SOB Chest pain. COMPARISON: Chest Single View dated 02/22/2020; Chest Single View dated 10/06/2019; Chest Single View dated 10/03/2019; Chest Single View dated 10/02/2019 FINDINGS: Portable technique limits examination quality. Moderate right and small left pleural effusion are noted. Mild interstitial pulmonary edema is seen. The heart is moderately enlarged in size. Right-sided venous catheter has tip in the SVC. IMPRESSION: Mild volume overload pattern is observed.
--- NOTE | 2020-06-09 11:08 | RAD REPORT ---
EXAM DESCRIPTION: CT - Abdomen Pelvis Wo Contrast - 06/09/2020 10:57 am CLINICAL HISTORY: Abdominal pain. elevated liver COMPARISON: Abdomen Pelvis Wo Contrast dated 04/17/2017; Chest Single View dated 06/09/2020 TECHNIQUE: CT imaging of the abdomen and pelvis was performed without contrast. Solid organ, bowel a nd vascular assessment is limited due to lack of IV and oral contrast. All CT scans are performed using dose optimization technique as appropriate and may include automated exposure control or mA/KV adjustment according to patient size. FINDINGS: Bilateral pleuotedral effusions are seen, greater on the right, with atelectasis or infilt rate in both lung bases. Noncontrast assessment of the liver demonstrates no significant biliary dilatation or evidence of a f ocal lesion. Prominent vascular calcification noted. Cholecystectomy is seen.The spleen, adrenal glan ds are within normal limits for noncontrast study. Pancreatic tail is somewhat difficult to fully ass ess given overlying small bowel loops in the region. No hydronephrosis of either kidney seen. Small b enign renal cysts. Both kidneys appear mildly atrophic with heavy vascular calcifications seen. No bowel obstruction, free air, free fluid or abscess. Scattered colonic diverticula are present. The appendix is normal. The osseous structures are within normal limits. IMPRESSION: Bilateral pleural effusions with lung base opacity likely infiltrate or atelectasis. Heavy vascular calcification is present. Colonic diverticulosis is noted without diverticulitis. A limited non-contrast examination was performed as detailed.
--- NOTE | 2020-06-09 11:11 | RAD REPORT ---
EXAM DESCRIPTION: US - Liver Only - 06/09/2020 9:41 am CLINICAL HISTORY: ruq us Abdominal pain COMPARISON: NMHEPATOBILIARY SYSTEM WITH PH dated 04/10/2015 FINDINGS: Liver echotexture is mildly hypoechoic.This can indicate underlying chronic hepatic inflam mation.No focal liver lesion or intrahepatic biliary dilatation.No evidence of portal vein thrombosis . Cholecystectomy. Common bile duct measures 4-5 mm. IMPRESSION: Mildly hypoechoic appearance to the liver parenchyma may indicate underlying chronic inf lammation or infection.
--- NOTE | 2020-06-09 11:27 | ER ---
Nurse's Notes [facility] Name: Yamile Brooke Age: 50 yrs Sex: Female : 1970 Arrival Date: 06/09/2020 Time: 06:28 Bed 13 Private MD: Diagnosis: Hyperkalemia;Vomiting, unspecified;Acute pancreatitis;Abnormal results of liver function studies;Abnormal findings on diagnostic imaging of liver and biliary tract Presentation: 06/09 06:42 Chief complaint: Patient states: was at dialysis and was told to come to the ED because em she been vomiting green bile, has not had dialysis in 1 week, denies pain or shortness of breath. Coronavirus screen: Client denies travel out of the [place] in the last 14 days. Ebola Screen: Patient negative for fever greater than or equal to 101.5 degrees Fahrenheit, and additional compatible Ebola Virus Disease symptoms Patient denies exposure to infectious person. Patient denies travel to an Ebola-affected area in the 21 days before illness onset. No symptoms or risks identified at this time. Initial Sepsis Screen: Does the patient meet any 2 criteria? HR > 90 bpm. Does the patient have a suspected source of infection? No. Patient's initial sepsis screen is negative. Risk Assessment: Do you want to hurt yourself or someone else? Patient reports no desire to harm self or others. Onset of symptoms was June 02, 2020. 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 - Social history:: Smoking status: Patient denies any tobacco usage or history of. Patient/guardian denies using alcohol, street drugs, The patient lives with family. - Family history:: not pertinent. Screenin:50 Abuse screen: Denies threats or abuse. Nutritional screening: No deficits noted. jb4 Tuberculosis screening: No symptoms or risk factors identified. Fall Risk Secondary diagnosis (15 points) Blind. IV access (20 points). Total Ferrer Fall Scale indicates Low Risk Score (25-44 pts). Fall prevention measures have been instituted. Side Rails Up X 2 Placed close to Nursing Station Frequent Obs/Assesments occuring As available Patient and Family Educated on Fall Prevention Program and strategies. Assessment: 06:53 General: Appears in no apparent distress. uncomfortable, Behavior is calm, cooperative. jb4 Pain: Denies pain. Neuro: Level of Consciousness is awake, alert, obeys commands, Oriented to person, place, time, situation. Cardiovascular: Patient's skin is warm and dry. Respiratory: Airway is patent Respiratory effort is even, unlabored, Respiratory pattern is regular, symmetrical. GI: Abdomen is flat, non-distended, Reports nausea, vomiting. : No signs and/or symptoms were reported regarding the genitourinary system. EENT: No signs and/or symptoms were reported regarding the EENT system. Derm: Skin is intact, Skin is dry, Skin is normal, Skin temperature is warm. Musculoskeletal: Circulation, motion, and sensation intact. Range of motion: intact in all extremities. 07:09 Reassessment: Pt desat to 84% on RA while resting. Placed on 2L NC. O2 at 96% on 2L. jb4 08:07 Reassessment: Patient appears in no apparent distress at this time. pt appears to be iw sleeping, awakens easily to verbal stimuli. 09:16 Reassessment: unable to flush IV, d/c, attempt restart IV, unsuccessful, US at bedside, iw will attempt after US. 10:35 Reassessment: Patient appears in no apparent distress at this time. No changes from jl7 previously documented assessment. Patient and/or family updated on plan of care and expected duration. Pain level reassessed. Pt drowsy, oriented x 4. MILA Buck at bedside to insert Midline at this time. 10:50 Reassessment: Pt to CT via stretcher. jl7 11:41 Reassessment: Patient appears in no apparent distress at this time. No changes from jl7 previously documented assessment. Patient and/or family updated on plan of care and expected duration. Pain level reassessed. Patient is alert, oriented x 3, equal unlabored respirations, skin warm/dry/pink. Pt requesting to have a family member with her. Updated pt on visitor policy, pt verbalized understanding. Vital Signs: 06:42 BP 150 / 88; Pulse 105; Resp 20; Temp 98.7; Pulse Ox 100% on R/A; Weight 72.57 kg; em Height 5 ft. 8 in. (172.72 cm); Pain 0/10; 08:02 BP 152 / 95; Pulse 92; Resp 17; Temp 97.7(O); Pulse Ox 98% on 2 lpm NC; 5 09:00 BP 164 / 97; Pulse 91; Resp 19; Pulse Ox 97% ; jl7 11:00 BP 166 / 95; Pulse 92; Resp 15; Pulse Ox 96% ; jl7 11:25 BP 163 / 94; Pulse 97; Resp 14; Pulse Ox 100% ; jl7 12:58 BP 128 / 81; Pulse 102; Resp 17; Pulse Ox 100% ; jl7 06:42 Body Mass Index 24.33 (72.57 kg, 172.72 cm) em ED Course: 06:28 Patient arrived in ED. ag3 06:45 Triage completed. em 06:46 Arm band placed on. em 06:50 Patient has correct armband on for positive identification. Bed in low position. Call jb4 light in reach. Side rails up X 1. Pulse ox on. NIBP on. 06:50 Inserted saline lock: 20 gauge in right antecubital area, using aseptic technique. jb4 Blood collected. 07:05 Lorie Strong MD is Attending Physician. [facility] 07:07 Sincere Mendoza, RN is Primary Nurse. [facility] 07:59 Basic Metabolic Panel Sent. [facility] 07:59 CBC with Diff Sent. [facility] 08:00 Warm blanket given. rippler on. [facility] 08:00 EKG done, by ED staff, by pest control chemical technician. reviewed by Lorie Strong MD COVID swab sent to [facility] lab. 08:01 Side rails up X2. [facility] 08:25 XRAY Chest (1 view) In Process Unspecified. EDMS 09:16 Missed attempt(s): 20 gauge in right antecubital area. Bleeding controlled, band aid iw applied, catheter tip intact. IV discontinued, intact, bleeding controlled, No redness/swelling at site. 09:27 CT Abd/Pelvis - Without Cont (PO Contrast Only) In Process Unspecified. EDMS 09:41 Liver Only In Process Unspecified. EDMS 10:32 Missed attempt(s): 24 gauge in right hand. Bleeding controlled, band aid applied, jl7 catheter tip intact. 10:50 Inserted 20 G Midline inserted to right upper arm by MILA Buck. jl7 11:27 Vasile Schofield MD is Hospitalizing Provider. ma2 12:58 No provider procedures requiring assistance completed. Patient admitted, IV remains in jl7 place. intact, No redness/swelling at site. Administered Medications: 07:53 Drug: Zofran (Ondansetron) 4 mg Route: IVP; Site: right antecubital; iw 11:39 Follow up: Response: No adverse reaction jl7 07:53 Drug: Pepcid (famotidine) 20 mg Route: IVP; Site: right antecubital; iw 11:39 Follow up: Response: No adverse reaction jl7 07:53 Drug: NS 0.9% 500 ml Route: IV; Rate: 75 ml/hr; Site: right antecubital; iw 12:59 Follow up: Response: No adverse reaction; IV Status: Infusion continued upon admission jl7 11:03 Drug: D50W 50 ml Route: IVP; Site: right upper arm; jl7 11:38 Follow up: Response: No adverse reaction jl7 11:05 Drug: Insulin Regular Human 7 units {Co-Signature: tw2 (Ayaka Vizcaino RN).} Route: IVP; jl7 Site: right upper arm; 11:38 Follow up: Response: No adverse reaction jl7 11:08 Drug: Albuterol 2.5 mg Route: Inhalation; jl7 11:10 Drug: Albuterol 2.5 mg Route: Inhalation; jl7 11:12 Drug: Albuterol 2.5 mg Route: Inhalation; jl7 11:39 Follow up: Response: No adverse reaction jl7 11:12 Drug: Calcium Gluconate 2 grams Route: IVPB; Infused Over: 60 mins; Site: right upper jl7 arm; 12:15 Follow up: IV Status: Completed infusion jl7 Outcome: 11:27 Decision to Hospitalize by Provider. ma2 12:58 Admitted to Tele accompanied by tech, via stretcher, room 211, with chart, Report jl7 called to MILA Ravi 12:58 Condition: stable 12:58 Discharge instructions given to patient, Instructed on the need for admit, Demonstrated understanding of instructions. 13:46 Patient left the ED. chely Signatures: Dispatcher [employer] Raffi Rudolph, RN Ania Delvalle RN RN iw Bryson, James, RN RN jb4 Lexy Sullivan [facility] Michelel Moreno RN RN jl7 Lorie Strong MD MD tx2 Bere King 3 Ayaka Vizcaino RN tw2
--- NOTE | 2020-06-09 11:27 | EDPHYS ---
Physician Documentation [facility] Name: Yamile Brooke Age: 50 yrs Sex: Female : 1970 Arrival Date: 06/09/2020 Time: 06:28 Bed 13 Private MD: ED Physician Lorie Strong HPI: 06/09 08:46 This 50 yrs old Black Female presents to ER via Wheelchair with complaints of Vomiting. ma2 08:46 The patient presents to the emergency department with nausea, vomiting. Onset: The ma2 symptoms/episode began/occurred gradually, 3 day(s) ago. Associated signs and symptoms: Pertinent negatives: belching, fever, GI bleeding, hematuria. Severity of symptoms: At their worst the symptoms were mild in the emergency department the symptoms are unchanged. The patient has not experienced similar symptoms in the past. [employer]: 11:39 LMP N/A - Post-menopause jl7 Historical: - Allergies: 06:46 tramadol; em - PMHx: 06:46 ADD/ADHD; Anemia; CHF; Diabetes - NIDDM; Dialysis; Tues, Thurs, Sat; ESRD; em Hyperlipidemia; Hypertension; right arm blood clots; right eye blindness; - PSHx: 06:46 Cholecystectomy; Hysterectomy; D \T\ C; ; em - Immunization history:: Adult Immunizations up to date. - Social history:: Smoking status: Patient denies any tobacco usage or history of. Patient/guardian denies using alcohol, street drugs, The patient lives with family. - Family history:: not pertinent. ROS: 08:46 Constitutional: Negative for fever, chills, and weight loss. ma2 08:46 All other systems are negative. Exam: 08:46 Constitutional: This is a well developed, well nourished patient who is awake, alert, ma2 and in no acute distress. Head/Face: Normocephalic, atraumatic. Eyes: Pupils equal round and reactive to light, extra-ocular motions intact. Lids and lashes normal. Conjunctiva and sclera are non-icteric and not injected. Cornea within normal limits. Periorbital areas with no swelling, redness, or edema. ENT: Nares patent. No nasal discharge, no septal abnormalities noted. Tympanic membranes are normal and external auditory canals are clear. Oropharynx with no redness, swelling, or masses, exudates, or evidence of obstruction, uvula midline. Mucous membranes moist. Neck: Trachea midline, no thyromegaly or masses palpated, and no cervical lymphadenopathy. Supple, full range of motion without nuchal rigidity, or vertebral point tenderness. No Meningismus. Chest/axilla: Normal chest wall appearance and motion. Nontender with no deformity. No lesions are appreciated. Cardiovascular: Regular rate and rhythm with a normal S1 and S2. No gallops, murmurs, or rubs. Normal PMI, no JVD. No pulse deficits. Respiratory: Lungs have equal breath sounds bilaterally, clear to auscultation and percussion. No rales, rhonchi or wheezes noted. No increased work of breathing, no retractions or nasal flaring. Abdomen/GI: Soft, non-tender, with normal bowel sounds. No distension or tympany. No guarding or rebound. No evidence of tenderness throughout. Back: No spinal tenderness. No costovertebral tenderness. Full range of motion. MS/ Extremity: Pulses equal, no cyanosis. Neurovascular intact. Full, normal range of motion. Neuro: Awake and alert, GCS 15, oriented to person, place, time, and situation. Cranial nerves II-XII grossly intact. Motor strength 5/5 in all extremities. Sensory grossly intact. Cerebellar exam normal. Normal gait. Vital Signs: 06:42 BP 150 / 88; Pulse 105; Resp 20; Temp 98.7; Pulse Ox 100% on R/A; Weight 72.57 kg; em Height 5 ft. 8 in. (172.72 cm); Pain 0/10; 08:02 BP 152 / 95; Pulse 92; Resp 17; Temp 97.7(O); Pulse Ox 98% on 2 lpm NC; mh5 09:00 BP 164 / 97; Pulse 91; Resp 19; Pulse Ox 97% ; jl7 11:00 BP 166 / 95; Pulse 92; Resp 15; Pulse Ox 96% ; jl7 11:25 BP 163 / 94; Pulse 97; Resp 14; Pulse Ox 100% ; jl7 12:58 BP 128 / 81; Pulse 102; Resp 17; Pulse Ox 100% ; jl7 06:42 Body Mass Index 24.33 (72.57 kg, 172.72 cm) em MDM: 07:05 Patient medically screened. ma2 08:46 Differential diagnosis: gastritis, cholecystitis, pancreatitis, appendicitis, ma2 diverticulitis, viral gastroenteritis, gastroenteritis, patient also missed dialysis for 2 days because she had vomiting and did not feel good. Data reviewed: vital signs, nurses notes. Counseling: I had a detailed discussion with the patient and/or guardian regarding: the historical points, exam findings, and any diagnostic results supporting the discharge/admit diagnosis, the presence of at least one elevated blood pressure reading (>120/80) during this emergency department visit, the need for further work-up and treatment in the hospital. 11:14 ED course: patient has pancreatitis and hepatitis, and hyperkalemia, she missed ma2 dialysis last week d/t vomiting, discussed with dr. russell and he agrees to do emergent hd . 06/09 07:18 Order name: Basic Metabolic Panel pa2 06/09 07:18 Order name: CBC with Diff 2 06/09 07:18 Order name: LFT's; Complete Time: 08:37 2 06/09 07:18 Order name: Magnesium; Complete Time: 08:37 2 06/09 07:18 Order name: NT PRO-BNP; Complete Time: 08:37 2 06/09 07:18 Order name: PT-INR; Complete Time: 08:17 2 06/09 07:18 Order name: XRAY Chest (1 view); Complete Time: 09:49 2 06/09 07:18 Order name: Basic Metabolic Panel; Complete Time: 08:37 EDMS 06/09 07:18 Order name: CBC with Automated Diff; Complete Time: 08:17 EDMS 06/09 08:37 Order name: Lipase; Complete Time: 09:33 ma2 06/09 08:37 Order name: CT Abd/Pelvis - Without Cont (PO Contrast Only); Complete Time: 11:09 2 06/09 09:12 Order name: SARS-COV-2 RT PCR; Complete Time: 09:33 EDMS 06/09 07:18 Order name: EKG; Complete Time: 07:18 ma2 06/09 07:18 Order name: Cardiac monitoring; Complete Time: 07:54 ma2 06/09 07:18 Order name: EKG - Nurse/Tech; Complete Time: 07:54 06/09 07:18 Order name: IV Saline Lock; Complete Time: 07:26 pa2 06/09 07:18 Order name: Labs collected and sent; Complete Time: 07: [facility] 06/09 07:18 Order name: O2 Per Protocol; Complete Time: 07: pa2 06/09 07:18 Order name: O2 Sat Monitoring; Complete Time: 07: pa2 06/09 09:40 Order name: Liver Only; Complete Time: 11:12 EDMS 06/09 11:36 Order name: Clear Liquid EDMS Administered Medications: 07:53 Drug: Zofran (Ondansetron) 4 mg Route: IVP; Site: right antecubital; iw 11:39 Follow up: Response: No adverse reaction jl7 07:53 Drug: Pepcid (famotidine) 20 mg Route: IVP; Site: right antecubital; iw 11:39 Follow up: Response: No adverse reaction jl7 07:53 Drug: NS 0.9% 500 ml Route: IV; Rate: 75 ml/hr; Site: right antecubital; iw 12:59 Follow up: Response: No adverse reaction; IV Status: Infusion continued upon admission jl7 11:03 Drug: D50W 50 ml Route: IVP; Site: right upper arm; jl7 11:38 Follow up: Response: No adverse reaction jl7 11:05 Drug: Insulin Regular Human 7 units {Co-Signature: tw2 (Ayaka Vizcaino RN).} Route: IVP; jl7 Site: right upper arm; 11:38 Follow up: Response: No adverse reaction jl7 11:08 Drug: Albuterol 2.5 mg Route: Inhalation; jl7 11:10 Drug: Albuterol 2.5 mg Route: Inhalation; jl7 11:12 Drug: Albuterol 2.5 mg Route: Inhalation; jl7 11:39 Follow up: Response: No adverse reaction jl7 11:12 Drug: Calcium Gluconate 2 grams Route: IVPB; Infused Over: 60 mins; Site: right upper jl7 arm; 12:15 Follow up: IV Status: Completed infusion jl7 Disposition: 06/09/20 11:27 Hospitalization ordered by Vasile Schofield for Inpatient Admission. Preliminary diagnosis are Hyperkalemia, Vomiting, unspecified, Acute pancreatitis, Abnormal results of liver function studies, Abnormal findings on diagnostic imaging of liver and biliary tract. - Bed requested for Telemetry/MedSurg (Inpatient). - Status is Inpatient Admission. jl7 - Condition is Stable. - Problem is new. - Symptoms are unchanged. Signatures: Dispatcher [employer] EDCO Shoshana Gandara, RN RN Raffi Cash, RN RN em Ania Gonsalves, RN RN iw Michelle Moreno RN RN jl7 Lorie Strong MD MD pa2 Ayaka Vizcaino RN 2 Corrections: (The following items were deleted from the chart) 08:34 07:18 CORONAVIRUS+MR.LAB.BRZ ordered. EDCO EDMS 09:40 08:40 Abdomen Limited+US.RAD.BRZ ordered. EDCO EDMS 12:03 11:27 Hospitalization Ordered by Vasile Schofield MD for Inpatient Admission. Preliminary dw diagnosis is Hyperkalemia; Vomiting, unspecified; Acute pancreatitis; Abnormal results of liver function studies; Abnormal findings on diagnostic imaging of liver and biliary tract. Bed requested for Telemetry/MedSurg (Inpatient). Status is Inpatient Admission. Condition is Stable. Problem is new. Symptoms are unchanged. ma2 13:46 12:03 06/09/2020 11:27 Hospitalization Ordered by Vasile Schofield MD for Inpatient jl7 Admission. Preliminary diagnosis is Hyperkalemia; Vomiting, unspecified; Acute pancreatitis; Abnormal results of liver function studies; Abnormal findings on diagnostic imaging of liver and biliary tract. Bed requested for Telemetry/MedSurg (Inpatient). Status is Inpatient Admission. Condition is Stable. Problem is new. Symptoms are unchanged. dw
[2020-06-09] MEDS ORDERED: D5 0.45 NS 1,000 ML IV SCH (12:00)
[2020-06-09] MEDS ORDERED: NA CHLORIDE 0.9% 1,000 ML IV PRN (15:08)
[2020-06-09] MEDS ORDERED: MANNITOL 25% 12.5 GM/50 ML VIAL IV PRN (15:08)
[2020-06-09] MEDS ORDERED: ALBUMIN HUMAN 25% 50 ML IV SCH (16:00)
[2020-06-09 16:09] VITALS: BMI 24.3
[2020-06-09 19:21] LABS: Albumin 3.3 g/dL (3.4-5.0); Bilirubin Direct 0.2 mg/dL (0-0.2); Bilirubin Total 0.7 mg/dL (0.2-1.0); Protein, Total 9.4 g/dL (6.4-8.2)
--- NOTE | 2020-06-09 20:04 | P.CNS ---
Date of Consult: 06/09/20 Reason for Consult: ESRD Requesting Physician: Vasile Schofield Chief Complaint: N/V History of Present Illness: 50 yo BF CKD, HTN presents with several days of persistent moderate N/V with associated fatigue and malaise in the setting of ESRD. Reports missing her last two HD sessions. 08:46 This 50 yrs old Black Female presents to ER via Wheelchair with complaints of Vomiting. ma2 08:46 The patient presents to the emergency department with nausea, vomiting. Onset: The ma2 symptoms/episode began/occurred gradually, 3 day(s) ago. Associated signs and symptoms: Pertinent negatives: belching, fever, GI bleeding, hematuria. Severity of symptoms: At their worst the symptoms were mild in the emergency department the symptoms are unchanged. The patient has not experienced similar symptoms in the past. Allergies tramadol Allergy (Mild, Verified 10/02/19 23:02) Anaphylaxis Home medications list reviewed: Yes Home Medications: Carvedilol [Coreg] 3.125 mg PO BID 06/09/20 Gabapentin 100 mg PO DAILY 06/09/20 Gabapentin 200 mg PO BEDTIME 06/09/20 Sevelamer Carbonate [Renvela] 800 mg PO SNACKS 06/09/20 Sevelamer Carbonate [Renvela] 800 mg PO TIDWM 06/09/20 - Past Medical/Surgical History Diabetic: Yes -: HTN -: DM-2 -: Dyslipidemia -: anemia -: esrd -: Hep C -: CHF -: hysterectomy -: x2 -: [facility] (2016) - Family History Mother Medical History: Hypertension Father Medical History: Heart disease, Hypertension, Diabetes - Social History Smoking Status: Never smoker Alcohol use: No CD- Drugs: No Caffeine use: No Place of Residence: Home Review of Systems 10-point ROS is otherwise unremarkable General: Weakness, Malaise Respiratory: SOB with Excertion Gastrointestinal: Nausea, Vomiting Neurological: Weakness Physical Examination Temp Pulse Resp BP Pulse Ox 98.2 F 94 H 16 130/75 99 06/09/20 14:08 06/09/20 14:08 06/09/20 14:08 06/09/20 14:08 06/09/20 14:08 General: In no apparent distress, Oriented x3, Cooperative HEENT: Atraumatic Neck: Supple Respiratory: Diminished Cardiovascular: Regular rate/rhythm, Edema Gastrointestinal: Soft and benign, Non-distended Musculoskeletal: No clubbing, No contractures Integumentary: No rashes, No cyanosis Neurological: Normal speech Urinary: Dialysis catheter Laboratory Data (last 24 hrs) 06/09/20 07:10: Lipase 703 H 06/09/20 07:10: PT 12.6 H, INR 1.09 06/09/20 07:10: WBC 6.10, Hgb 11.9 L, Hct 36.1, Plt Count 246 D 06/09/20 07:10: Sodium 134 L, Potassium 6.3 H*, BUN 121 H D, Creatinine 18.30 H* D, Glucose 88, Magnesium 2.7 H, Total Bilirubin 0.7, AST 402 H*, ALT 759 H*, Alkaline Phosphatase 151 H Imagings Data: EXAM DESCRIPTION: RAD - Chest Single View - 06/09/2020 8:25 am CLINICAL HISTORY: SOB Chest pain. COMPARISON: Chest Single View dated 02/22/2020; Chest Single View dated 10/06/2019; Chest Single View dated 10/03/2019; Chest Single View dated 10/02/2019 FINDINGS: Portable technique limits examination quality. Moderate right and small left pleural effusion are noted. Mild interstitial pulmonary edema is seen. The heart is moderately enlarged in size. Right-sided venous catheter has tip in the SVC. IMPRESSION: Mild volume overload pattern is observed. EXAM DESCRIPTION: CT - Abdomen Pelvis Wo Contrast - 06/09/2020 10:57 am CLINICAL HISTORY: Abdominal pain. elevated liver COMPARISON: Abdomen Pelvis Wo Contrast dated 04/17/2017; Chest Single View dated 06/09/2020 TECHNIQUE: CT imaging of the abdomen and pelvis was performed without contrast. Solid organ, bowel and vascular assessment is limited due to lack of IV and oral contrast. All CT scans are performed using dose optimization technique as appropriate and may include automated exposure control or mA/KV adjustment according to patient size. FINDINGS: Bilateral pleuotedral effusions are seen, greater on the right, with atelectasis or infiltrate in both lung bases. Noncontrast assessment of the liver demonstrates no significant biliary dilatation or evidence of a focal lesion. Prominent vascular calcification note d. Cholecystectomy is seen.The spleen, adrenal glands are within normal limits for noncontrast study. Pancreatic tail is somewhat difficult to fully assess given overlying small bowel loops in the region. No hydronephrosis of either kidney seen. Small benign renal cysts. Both kidneys appear mildly atrophic with heavy vascular calcifications seen. No bowel obstruction, free air, free fluid or abscess. Scattered colonic diverticula are present. The appendix is normal. The osseous structures are within normal limits. IMPRESSION: Bilateral pleural effusions with lung base opacity likely infiltrat e or atelectasis. Heavy vascular calcification is present. Colonic diverticulosis is noted without diverticulitis. A limited non-contrast examination was performed as detailed. EXAM DESCRIPTION: US - Liver Only - 06/09/2020 9:41 am CLINICAL HISTORY: ruq us Abdominal pain COMPARISON: NMHEPATOBILIARY SYSTEM WITH PH dated 04/10/2015 FINDINGS: Liver echotexture is mildly hypoechoic.This can indicate underlying chronic hepatic inflammation.No focal liver lesion or intrahepatic biliary dilatation.No evidence of portal vein thrombosis. Cholecystectomy. Common bile duct measures 4-5 mm. IMPRESSION: Mildly hypoechoic appearance to the liver parenchyma may indicate underlying chronic inflammation or infection. Conclusions/Impression: A/P: Continue the current POC and Medications other than the changes listed. AM Labs PRN. Recommend daily weight. Please see the orders for complete details. ESRD -Acute HD ordered. Seen and examined on HD. Hyponatremia Hyperkalemia Acidosis -Acute HD ordered HTN with CKD/ CHF -Hold antihypertensives at this time A/C Diastolic CHF -Acute HD with UF DM II with CKD -Currently NPO -Restart insulin as indicated Anemia in CKD -Give Retacrit CARMELITA/ Secondary HyperPTH -Start Vitamin D3 Hepatitis Pancreatitis -Follow up with GI Thank you kindly for the consultation.
[2020-06-09] MEDS: MORPHINE 4 MG/ML SYR IV PRN (20:58)
[2020-06-10] MEDS: MORPHINE 4 MG/ML SYR IV PRN ×2 (01:31→06:19)
[2020-06-10 05:52] LABS: Absolute Lymphocytes (CBC) 0.8 K/uL (0.7-4.9); Basophils % 0.9 % (0-1.3); Hematocrit 30.9 % (36.0-45.0); Lymphocytes % 13.3 % (15.3-44.8); RBC Red Blood Cell Count 3.43 M/uL (3.86-4.86)
[2020-06-10] MEDS: ONDANSETRON 4 MG/2 ML VIAL IV PRN ×2 (06:18→17:10)
[2020-06-10 06:22] LABS: Albumin 3.2 g/dL (3.4-5.0); Bilirubin Direct 0.2 mg/dL (0-0.2); Bilirubin Total 0.6 mg/dL (0.2-1.0); Magnesium 2.3 mg/dL (1.8-2.4); Phosphorus 7.4 mg/dL (2.5-4.9); Protein, Total 8.9 g/dL (6.4-8.2); Uric Acid 6.6 mg/dL (2.6-6.0)
[2020-06-10] MEDS: CALCITROL 0.25 MCG CAP PO SCH (08:38)
[2020-06-10] MEDS: VITAMIN D 5,000 UNIT CAP PO SCH (08:38)
[2020-06-10] MEDS ORDERED: ALTEPLASE 2 MG/VIAL IV ONE (09:00)
[2020-06-10] MEDS ORDERED: ALTEPLASE 2 MG/VIAL IV SCH (09:00)
[2020-06-10] MEDS ORDERED: EPOETIN ALFA 10,000 UNIT/ML VIAL SQ SCH (09:00)
[2020-06-10] MEDS ORDERED: ZOMIG NAS PRN (09:04)
--- NOTE | 2020-06-10 13:08 | CON ---
Reason For Consultation: Consultation called by Dr. Schofield because of headache. History Of Present Illness: Ms. Brooke is a 50-year-old patient with migraine with aura, who also has end-stage renal disease on hemodialysis, [id number] diabetes mellitus, hypertension, DVT right arm, dyslipidemia, right eye blindness. She is admitted to [facility] on 06/09/2020 with nausea, vomiting, and headache. Symptoms began about 3 days ago. She did not have fever, stiff neck, myalgias or arthralgias to suggest a systemic infection or a meningeal infection. Since hospitalization, the pain has been at 8-9/10. She was recently seen for migraines and while hospitalized, she was given Ubrelvy, which did help her, but she had hallucinations. She was seen in clinic recently and was given a sample of Zembrace 3 mg subcutaneous injection for abortive headache treatment and Aimovig which was started 140 mg subcutaneously monthly, then 70 mg monthly thereafter. However, it is not clear if the patient actually has begun this regimen. She was about to go to hemodialysis at the time I have seen her and I brought a sample of Zomig 5 mg, try for any abortive headache treatment. This will actually be done. Past Medical History: As indicated end-stage renal disease, on hemodialysis with dialysis Monday, , Monday. She also has as indicated diabetes mellitus, hypertension, dyslipidemia, blood clots. Allergies: TRAMADOL. Past Surgical History: Cholecystectomy, hysterectomy, . Current Medications: She has Rocaltrol 0.5 mcg daily, vitamin D 5000 units orally daily, heparin 1000 units IV every hemodialysis, mannitol with hemodialysis 50 mg, morphine 4 mg every 4 hours as needed, Zofran 4 mg every 4 hours, Phenergan 25 mg every 6 hours, and she will try Zomig. Review of Systems: As indicated, she has had headache with nausea, vomiting, some myalgias, arthralgias. She is blind in the right eye. Physical Examination: Vital Signs: Blood pressure 168/80, pulse of 96, respiratory rate 16, temperature 98.2, O2 saturation 94% on room air. General: Ms. Brooke is resting in bed, lying on her left side. Denies headache otherwise. HEENT: She is atraumatic. Oropharynx moist. Neck: Supple. Chest: Clear. Heart: Regular. Extremities: Show no edema, cyanosis. Neurological: Alert, oriented to person, place, situation. Follows commands appropriately. Aside from her visual deficit, no obvious cranial nerve deficits. Motor, no focal weakness in the arm and leg. Sensation, stocking- glove loss to light touch and temperature. Reflexes, depressed in upper and lower extremities. Coordination is slow, but intact and she is going to have hemodialysis and not ambulated. Laboratory Studies: Complete blood count with differential shows white blood cell count 5.8, hemoglobin 10.3, platelets 201. INR 1.09. Chemistries; creatinine is 11.5. She is going to the dialysis. ALT is elevated to 477, AST to 156. Her lipase is elevated to 418, phosphorus elevated to 7.4, uric acid elevated to 6.6. She has hepatitis panel pending. COVID-19 test is negative. Her head CT scan on the shows no acute intracranial abnormalities. Her left globe abnormality is unchanged and a chronic deformity in the right lobe is noted. A liver ultrasound shows mild hyperechoic appearance of the liver parenchyma indicative of underlying chronic inflammatory changes. Chest x-ray, mild volume overload pattern observed. Assessment: Ms. Brooke is a 50-year-old patient with multiple medical problems as indicated including end-stage renal disease on hemodialysis, hypertension, diabetes mellitus, who has kylgyeegu-ik-trdlwib migraines. Plan: 1. Aimovig 70 mg subcutaneously monthly. 2. We will use Zomig nasal spray 5 mg for abortive treatment. 3. May refer the patient to Dr. Eusebio Raymundo in [place] for more specialized migraine treatment. 4. Upon discharge, she may follow up in Dr. Alcala's clinic in 1 month. DAYSI/SUDHA Voice ID: [id number] Report ID: [id number] JERRY
[2020-06-10] MEDS: PROMETHAZINE INJ 25 MG/ML AMP IV PRN (13:30)
[2020-06-10] MEDS ORDERED: AMLODIPINE 5 MG TAB PO ONE (14:50)
[2020-06-10] MEDS ORDERED: carvediloL 6.25 MG TAB PO ONE (14:50)
--- NOTE | 2020-06-10 16:03 | RAD REPORT ---
EXAM DESCRIPTION: CT - Head Brain Wo Cont - 06/10/2020 3:33 pm CLINICAL HISTORY: headache, ?facial assymetry COMPARISON: Head Brain Wo Cont dated 06/03/2020Head Brain Wo Cont dated 06/03/2020; Head Brain Wo Cont dated 11/21/2018 TECHNIQUE: Axial 5 mm thick images of the head were obtained without IV contrast. All CT scans are performed using dose optimization technique as appropriate and may include automated exposure control or mA/KV adjustment according to patient size. FINDINGS: No intracranial hemorrhage, mass, edema or shift of mid-line structures. No acute infarcti on changes seen. No cortical edema or sulcal effacement. Atrophy changes are mild. Chronic ischemic c hanges are present in the cerebral right matter. Ventricles are enlarged, out of proportion to the am ount of volume loss. Cavum septum pellucidum noted. Enlargement is more pronounced in the occipital h orns. No transependymal migration of CSF suspected. The ventricles are stable from imaging back to at least 2018. Mastoid air cells and visualized portions of the paranasal sinuses are clear. Right-side ptysis bulbi noted and stable. Left lobe shows heterogeneous attenuation slightly different in presentation from the June 03 study. This could be a sequela of an intra-ocular hemorrhage. Deformity of the lens is n oted. The soft tissues overlying the globe appears thickened. No postseptal intraorbital mass. No acute bony findings. IMPRESSION: No acute intracranial finding identified. The above detailed findings are stable back to at least 2018. Chronic deformity of the right globe stable. There is continued heterogeneity in the attenuation of t he left globe slightly different in presentation from June 03. This could be the sequela of an intra -ocular hemorrhage. Intra-ocular mass lesion is doubtful but not excluded. Overlying soft tissue zak a is present. Correlation can be made with clinical exam.
--- NOTE | 2020-06-10 17:03 | EKG ---
Test Date: 2020-06-09 Test Time: 07:46:59 Climate Change Risk Assessor: WILLIAM MEASUREMENT RESULTS: Intervals: Rate: 91 ND: 156 QRSD: 122 QT: 410 QTc: 504 [place]: P: 78 ND: 156 QRS: 39 T: 261 INTERPRETIVE STATEMENTS: Normal sinus rhythm Possible Left atrial enlargement Septal infarct, age undetermined ST & T wave abnormality, consider lateral ischemia Abnormal ECG Compared to ECG 03/03/2020 15:33:18 Myocardial infarct finding now present ST (T wave) deviation now present Right superior axis no longer present Left bundle-branch block no longer present Left ventricular hypertrophy no longer present T-wave abnormality no longer present Possible ischemia still present Electronically Signed On 06-10-20 17:00:47 CDT by Yovany Dewey
[2020-06-10] MEDS: SUMATRIPTAN SUCC 6MG/0.5ML VIAL SQ PRN (17:07)
--- NOTE | 2020-06-10 19:39 | P.PN ---
Date of Service: 06/10/20 Vital Signs Temp Pulse Resp BP Pulse Ox 98.4 F 86 15 155/90 H 92 06/10/20 16:00 06/10/20 16:00 06/10/20 16:00 06/10/20 17:06 06/10/20 16:00 Medications Calcitriol (Calcitrol 0.25 Mcg Cap) 0.5 mcg PO DAILY [facility] Last Admin: 06/10/20 08:38 Dose: Not Given Documented by: Cholecalciferol (Vitamin D 5,000 Unit Cap) 5,000 unit PO DAILY [facility] Last Admin: 06/10/20 08:38 Dose: Not Given Documented by: Heparin Sodium (Porcine) (Heparin 1,000 Unit/Ml Vial) 6,000 unit IV EVERY HD PRN PRN Reason: AFTER EACH Last Admin: 06/10/20 09:21 Dose: 6,000 unit Documented by: Heparin Sodium (Porcine) (Heparin 1,000 Unit/Ml Vial) 3,000 unit IV EVERY HD [facility] Stop: 06/14/20 10:01 Home Med (Zomig) 1 spray JONAH BID PRN PRN Reason: headache Albumin Human (Albumin 25%) 50 mls @ 100 mls/hr IV EVERY HD [facility]IS[facility]O Mannitol (Mannitol 25% 12.5 Gm/50 Ml Vial) 12.5 gm IV EVERY HD PRN PRN Reason: Titrate to SBP (MUST DEFINE) Morphine Sulfate (Morphine 4 Mg/Ml Syr) 4 mg IV Q4H PRN PRN Reason: Pain scale 8-10 (Severe) Last Admin: 06/10/20 06:19 Dose: 4 mg Documented by: Ondansetron HCl (Ondansetron 4 Mg/2 Ml Vial) 4 mg IV Q4H PRN PRN Reason: NAUSEA / VOMITING Last Admin: 06/10/20 17:10 Dose: 4 mg Documented by: Promethazine HCl (Promethazine Inj 25 Mg/Ml Amp) 25 mg IV Q6H PRN PRN Reason: NAUSEA / VOMITING Last Admin: 06/10/20 13:30 Dose: 25 mg Documented by: Sodium Chloride (Flush Normal Saline 10 Ml) 10 ml IV BID [facility] Last Admin: 06/10/20 08:38 Dose: 10 ml Documented by: Sodium Chloride (Flush Normal Saline 10 Ml) 10 ml IV BID [facility] Last Admin: 06/10/20 08:38 Dose: Not Given Documented by: Sumatriptan Succinate (Sumatriptan Succ 6mg/0.5ml Vial) 6 mg SQ BID PRN PRN Reason: migraine Last Admin: 06/10/20 17:07 Dose: 6 mg Documented by: Assessment/ Plan: No acute cardiac or pulmonary complaints. No CP or SOB. Nausea improving. No acute events overnight. Vitals, medications, blood work and imaging reviewed in the chart. General: In no apparent distress, Oriented x3, Cooperative HEENT: Atraumatic Neck: Supple Respiratory: Diminished Cardiovascular: Regular rate/rhythm, Edema Gastrointestinal: Soft and benign, Non-distended Musculoskeletal: No clubbing, No contractures Integumentary: No rashes, No cyanosis Neurological: Normal speech Urinary: Dialysis catheter Laboratory Data (last 24 hrs) 06/09/20 07:10: Lipase 703 H 06/09/20 07:10: PT 12.6 H, INR 1.09 06/09/20 07:10: WBC 6.10, Hgb 11.9 L, Hct 36.1, Plt Count 246 D 06/09/20 07:10: Sodium 134 L, Potassium 6.3 H*, BUN 121 H D, Creatinine 18.30 H* D, Glucose 88, Magnesium 2.7 H, Total Bilirubin 0.7, AST 402 H*, ALT 759 H*, Alkaline Phosphatase 151 H Imagings Data: EXAM DESCRIPTION: RAD - Chest Single View - 06/09/2020 8:25 am CLINICAL HISTORY: SOB Chest pain. COMPARISON: Chest Single View dated 02/22/2020; Chest Single View dated 10/06/2019; Chest Single View dated 10/03/2019; Chest Single View dated 10/02/2019 FINDINGS: Portable technique limits examination quality. Moderate right and small left pleural effusion are noted. Mild interstitial pulmonary edema is seen. The heart is moderately enlarged in size. Right-sided venous catheter has tip in the SVC. IMPRESSION: Mild volume overload pattern is observed. EXAM DESCRIPTION: CT - Abdomen Pelvis Wo Contrast - 06/09/2020 10:57 am CLINICAL HISTORY: Abdominal pain. elevated liver COMPARISON: Abdomen Pelvis Wo Contrast dated 04/17/2017; Chest Single View dated 06/09/2020 TECHNIQUE: CT imaging of the abdomen and pelvis was performed without contrast. Solid organ, bowel and vascular assessment is limited due to lack of IV and oral contrast. All CT scans are performed using dose optimization technique as appropriate and may include automated exposure control or mA/KV adjustment according to patient size. FINDINGS: Bilateral pleuotedral effusions are seen, greater on the right, with atelectasis or infiltrate in both lung bases. Noncontrast assessment of the liver demonstrates no significant biliary dilatation or evidence of a focal lesion. Prominent vascular calcification noted. Cholecystectomy is seen.The spleen, adrenal glands are within normal limits for noncontrast study. Pancreatic tail is somewhat difficult to fully assess given overlying small bowel loops in the region. No hydronephrosis of either kidney seen. Small benign renal cysts. Both kidneys appear mildly atrophic with heavy vascular calcifications seen. No bowel obstruction, free air, free fluid or abscess. Scattered colonic diverticula are present. The appendix is normal. The osseous structures are within normal limits. IMPRESSION: Bilateral pleural effusions with lung base opacity likely infiltrate or atelectasis. Heavy vascular calcification is present. Colonic diverticulosis is noted without diverticulitis. A limited non-contrast examination was performed as detailed. EXAM DESCRIPTION: US - Liver Only - 06/09/2020 9:41 am CLINICAL HISTORY: ruq us Abdominal pain COMPARISON: NMHEPATOBILIARY SYSTEM WITH PH dated 04/10/2015 FINDINGS: Liver echotexture is mildly hypoechoic.This can indicate underlying chronic hepatic inflammation.No focal liver lesion or intrahepatic biliary dilatation.No evidence of portal vein thrombosis. Cholecystectomy. Common bile duct measures 4-5 mm. IMPRESSION: Mildly hypoechoic appearance to the liver parenchyma may indicate underlying chronic inflammation or infection. Conclusions/Impression: A/P: Continue the current POC and Medications other than the changes listed. AM Labs PRN. Recommend daily weight. Please see the orders for complete details. ESRD -Acute HD ordered again for today. Hyponatremia Hyperkalemia Acidosis -HD TIW HTN with CKD/ CHF -Restart Nifedipine and Coreg A/C Diastolic CHF -Acute HD with UF DM II with CKD -Restart insulin as indicated Anemia in CKD -Retacrit PRN CARMELITA/ Secondary HyperPTH -Continue Vitamin D3 Hepatitis Pancreatitis -Follow up with GI
[2020-06-10] MEDS ORDERED: SUMATRIPTAN SUCC 6MG/0.5ML VIAL SQ SCH (21:00)
[2020-06-10] MEDS: carvediloL 12.5 MG TAB PO SCH (21:26)
[2020-06-10] MEDS: NIFEDIPINE XL 60 MG TABLET PO SCH (22:40)
--- NOTE | 2020-06-11 00:20 | HP ---
Date of Admission: 06/10/2020 Chief Complaint: Headache, nausea, vomiting. History Of Present Illness: This is a 50-year-old female patient who has history of complicated migraine with nausea and vomiting during her last hospital admission. Dr. Alcala was consulted during that hospital stay, and he had suggested for her to take some medication over period of time. Patient says her headache got resolved. She did not have to take those medications anymore, so she did not continue any Topamax or verapamil which were suggested by Dr. Alcala. She was doing fine until yesterday. She came into emergency room with complaints of intractable headache associated with nausea and vomiting. She denies any abdominal pain. No fever. No chills. She came into ER after she was evaluated. ER physician contacted me requesting admission to the hospital with acute pancreatitis because her lipase was elevated, but it is important to note that the patient does not have any abdominal pain complaints at all. Allergies: TO TRAMADOL. Medications: Takes carvedilol 3.125 mg 2 times a day, nifedipine 90 mg 2 times a day, gabapentin. Review of Systems: CANDY CATCHER: As mentioned above. GI: As mentioned above. Eyes: The patient is legally blind in both eyes. All other systems reviewed and negative. Past Medical History: Significant for diabetes mellitus, which is diet controlled. She has history of diabetic neuropathy and diabetic gastroparesis, hypertension, mixed hyperlipidemia, coronary artery disease, chronic systolic congestive heart failure, hepatitis C, end-stage renal disease on hemodialysis, and history of cluster headache. Her last hospital admission for similar problem was in February 2020. Past Surgical History: Significant for coronary artery stent placement in June of 2016, hysterectomy. Family History: Father with coronary artery disease, hypertension, hyperlipidemia, diabetes. Mother with hypertension, diabetes, and thyroid problem. Social History: Negative for smoking. Occasional use of alcohol. Physical Examination: Vital Signs: Temperature 97.7, pulse 98, respiratory rate 16, blood pressure 141/75, oxygen saturation 93%. Height 5 feet, 8 inches, weight 160 pounds. General: Awake, alert, oriented, not in distress. HEENT: Head atraumatic, normocephalic. Mouth, no thrush or edema noted. Ears/Nose, no mass, lesion, discharge noted. Opaque cornea in both eyes and some swelling of left upper eyelid region. No redness. No tenderness. Neck: Supple. No JVD, lymph nodes, bruit, thyromegaly noted. Lungs: Bilateral good equal air entry. Clear to auscultation. No rhonchi. No rales. Heart: Normal heart sounds, no murmur or gallop. Abdomen: Soft, bowel sounds normal. No guarding, rigidity, tenderness, mass, hepatosplenomegaly, distention, or bruit noted. Extremities: No leg edema. No calf tenderness. Skin: No rash, ulcer, cellulitis. Lymphatics: No lymph node enlargement in neck, supraclavicular, infraclavicular region. Neuro: No focal neurological deficit. Chest: Unremarkable. External Genitalia: Deferred. Rectal: Deferred. Laboratory Data: Yesterday white count 6.1, hemoglobin 11.9, platelets 246. Today, white count 5.8, hemoglobin 10.3. Yesterday sodium 134, potassium 6.3, chloride 91, bicarb 19, BUN 121, creatinine 18.3, glucose 88, total bilirubin 0.7, direct bilirubin 0.3, AST 402, ALT 759, alkaline phosphatase 151. ProBNP more than 175,000. Lipase 703. This morning, sodium 136, potassium 5, chloride 99, bicarb 24, BUN 58, creatinine 11.50, glucose 101, total bilirubin 0.6, direct bilirubin 0.2, AST 156, ALT 477, alkaline phosphatase 123, lipase 418. COVID-19 test negative. Chest x-ray, mild volume overload pattern. CAT scan of the abdomen and pelvis without contrast shows bilateral pleural effusions, heavy vascular calcification, diverticulosis without diverticulitis. Ultrasound of right upper quadrant shows mildly hypoechoic appearance of liver indicating underlying chronic inflammation. Impression: 1. Migraine headache, intractable. 2. Intractable nausea with vomiting. 3. Acute pancreatitis. 4. Abnormal liver function test. 5. Hypertension. 6. End-stage renal disease, on hemodialysis. 7. Hyperlipidemia. 8. Coronary artery disease. 9. Chronic systolic congestive heart failure. 10. Diabetic gastroparesis. 11. Diabetic neuropathy. 12. Legally blind. 13. Anemia due to chronic kidney disease. 14. Hyperkalemia. Plan: Admit the patient to hospital for further evaluation and management of this problem. The patient is appropriate for inpatient and is expected to spend 2 midnights in hospital. We will continue home medications per order. Consult gun stock maker for dialysis support. We will consult Dr. Alcala from Neurology. The patient's lipase is elevated indicating acute pancreatitis, but otherwise she has no other symptoms related to pancreatitis. Her abdominal exam is unremarkable. We will start on clear liquid diet and advance it as tolerated. Alfalfa Dehydrator Operator was consulted. Her liver enzymes are better today compared to yesterday. I will see her tomorrow for followup. VINCENT/SUDHA Voice ID: [id number]
[2020-06-11] MEDS: ONDANSETRON 4 MG/2 ML VIAL IV PRN (01:05)
[2020-06-11] MEDS: PROMETHAZINE INJ 25 MG/ML AMP IV PRN ×2 (03:48→15:13)
[2020-06-11 05:58] LABS: Absolute Lymphocytes (CBC) 0.8 K/uL (0.7-4.9); Basophils % 0.6 % (0-1.3); Hematocrit 36.3 % (36.0-45.0); Lymphocytes % 15.4 % (15.3-44.8); MPV 8.8 fL (7.6-11.3); RBC Red Blood Cell Count 3.99 M/uL (3.86-4.86)
[2020-06-11 06:18] LABS: Bilirubin Total 0.5 mg/dL (0.2-1.0); Potassium 4.6 mmol/L (3.5-5.1); Protein, Total 9.1 g/dL (6.4-8.2)
[2020-06-11] MEDS: VITAMIN D 5,000 UNIT CAP PO SCH (08:34)
[2020-06-11] MEDS: carvediloL 12.5 MG TAB PO SCH ×2 (08:34→21:52)
[2020-06-11] MEDS: NIFEDIPINE XL 60 MG TABLET PO SCH ×2 (08:34→21:52)
[2020-06-11] MEDS: CALCITROL 0.25 MCG CAP PO SCH (08:34)
[2020-06-11] MEDS ORDERED: METOCLOPRAMIDE 10 MG/2mL INJ IV PRN (14:55)
--- NOTE | 2020-06-11 14:56 | P.PN ---
Date of Service: 06/11/20 Vital Signs Temp Pulse Resp BP Pulse Ox 97.8 F 88 18 150/81 H 94 06/11/20 08:00 06/11/20 08:34 06/11/20 08:00 06/11/20 08:34 06/11/20 08:00 Medications Calcitriol (Calcitrol 0.25 Mcg Cap) 0.5 mcg PO DAILY [facility] Last Admin: 06/11/20 08:34 Dose: 0.5 mcg Documented by: Carvedilol (Carvedilol 12.5 Mg Tab) 12.5 mg PO BID [facility] Last Admin: 06/11/20 08:34 Dose: 12.5 mg Documented by: Cholecalciferol (Vitamin D 5,000 Unit Cap) 5,000 unit PO DAILY [facility] Last Admin: 06/11/20 08:34 Dose: 5,000 unit Documented by: Heparin Sodium (Porcine) (Heparin 1,000 Unit/Ml Vial) 6,000 unit IV EVERY HD PRN PRN Reason: AFTER EACH Last Admin: 06/11/20 13:21 Dose: 6,000 unit Documented by: Heparin Sodium (Porcine) (Heparin 1,000 Unit/Ml Vial) 3,000 unit IV EVERY HD [facility] Stop: 06/14/20 10:01 Last Admin: 06/11/20 10:22 Dose: 3,000 unit Documented by: Home Med (Zomig) 1 spray JONAH BID PRN PRN Reason: headache Albumin Human (Albumin 25%) 50 mls @ 100 mls/hr IV EVERY HD [facility] Mannitol (Mannitol 25% 12.5 Gm/50 Ml Vial) 12.5 gm IV EVERY HD PRN PRN Reason: Titrate to SBP (MUST DEFINE) Morphine Sulfate (Morphine 4 Mg/Ml Syr) 4 mg IV Q4H PRN PRN Reason: Pain scale 8-10 (Severe) Last Admin: 06/10/20 06:19 Dose: 4 mg Documented by: Nifedipine (Nifedipine Xl 60 Mg Tablet) 60 mg PO BID [facility] Last Admin: 06/11/20 08:34 Dose: 60 mg Documented by: Ondansetron HCl (Ondansetron 4 Mg/2 Ml Vial) 4 mg IV Q4H PRN PRN Reason: NAUSEA / VOMITING Last Admin: 06/11/20 01:05 Dose: 4 mg Documented by: Promethazine HCl (Promethazine Inj 25 Mg/Ml Amp) 25 mg IV Q6H PRN PRN Reason: NAUSEA / VOMITING Last Admin: 06/11/20 03:48 Dose: 25 mg Documented by: Sodium Chloride (Flush Normal Saline 10 Ml) 10 ml IV BID [facility] Last Admin: 06/11/20 08:35 Dose: 10 ml Documented by: Sodium Chloride (Flush Normal Saline 10 Ml) 10 ml IV BID [facility] Last Admin: 06/11/20 08:34 Dose: Not Given Documented by: Sumatriptan Succinate (Sumatriptan Succ 6mg/0.5ml Vial) 6 mg SQ BID PRN PRN Reason: migraine Last Admin: 06/10/20 17:07 Dose: 6 mg Documented by: Assessment/ Plan: Nephrology No acute cardiac or pulmonary complaints. No CP or SOB. Nausea and anorexia waxing and waning. No acute events overnight. Vitals, medications, blood work and imaging reviewed in the chart. General: In no apparent distress, Oriented x3, Cooperative HEENT: Atraumatic Neck: Supple Respiratory: Diminished Cardiovascular: Regular rate/rhythm, Edema Gastrointestinal: Soft and benign, Non-distended Musculoskeletal: No clubbing, No contractures Integumentary: No rashes, No cyanosis Neurological: Normal speech Urinary: Dialysis catheter Laboratory Data (last 24 hrs) 06/09/20 07:10: Lipase 703 H 06/09/20 07:10: PT 12.6 H, INR 1.09 06/09/20 07:10: WBC 6.10, Hgb 11.9 L, Hct 36.1, Plt Count 246 D 06/09/20 07:10: Sodium 134 L, Potassium 6.3 H*, BUN 121 H D, Creatinine 18.30 H* D, Glucose 88, Magnesium 2.7 H, Total Bilirubin 0.7, AST 402 H*, ALT 759 H*, Alkaline Phosphatase 151 H Imagings Data: EXAM DESCRIPTION: RAD - Chest Single View - 06/09/2020 8:25 am CLINICAL HISTORY: SOB Chest pain. COMPARISON: Chest Single View dated 02/22/2020; Chest Single View dated 10/06/2019; Chest Single View dated 10/03/2019; Chest Single View dated 10/02/2019 FINDINGS: Portable technique limits examination quality. Moderate right and small left pleural effusion are noted. Mild interstitial pulmonary edema is seen. The heart is moderately enlarged in size. Right-sided venous catheter has tip in the SVC. IMPRESSION: Mild volume overload pattern is observed. EXAM DESCRIPTION: CT - Abdomen Pelvis Wo Contrast - 06/09/2020 10:57 am CLINICAL HISTORY: Abdominal pain. elevated liver COMPARISON: Abdomen Pelvis Wo Contrast dated 04/17/2017; Chest Single View dated 06/09/2020 TECHNIQUE: CT imaging of the abdomen and pelvis was performed without contrast. Solid organ, bowel and vascular assessment is limited due to lack of IV and oral contrast. All CT scans are performed using dose optimization technique as appropriate and may include automated exposure control or mA/KV adjustment according to patient size. FINDINGS: Bilateral pleuotedral effusions are seen, greater on the right, with atelectasis or infiltrate in both lung bases. Noncontrast assessment of the liver demonstrates no significant biliary dilatation or evidence of a focal lesion. Prominent vascular calcification noted. Cholecystectomy is seen.The spleen, adrenal glands are within normal limits for noncontrast study. Pancreatic tail is somewhat difficult to fully assess given overlying small bowel loops in the region. No hydronephrosis of either kidney seen. Small benign renal cysts. Both kidneys appear mildly atrophic with heavy vascular calcifications seen. No bowel obstruction, free air, free fluid or abscess. Scattered colonic diverticula are present. The appendix is normal. The osseous structures are within normal limits. IMPRESSION: Bilateral pleural effusions with lung base opacity likely infiltrate or atelectasis. Heavy vascular calcification is present. Colonic diverticulosis is noted without diverticulitis. A limited non-contrast examination was performed as detailed. EXAM DESCRIPTION: US - Liver Only - 06/09/2020 9:41 am CLINICAL HISTORY: ruq us Abdominal pain COMPARISON: NMHEPATOBILIARY SYSTEM WITH PH dated 04/10/2015 FINDINGS: Liver echotexture is mildly hypoechoic.This can indicate underlying chronic hepatic inflammation.No focal liver lesion or intrahepatic biliary dilatation.No evidence of portal vein thrombosis. Cholecystectomy. Common bile duct measures 4-5 mm. IMPRESSION: Mildly hypoechoic appearance to the liver parenchyma may indicate underlying chronic inflammation or infection. Conclusions/Impression: A/P: Continue the current POC and Medications other than the changes listed. AM Labs PRN. Recommend daily weight. Please see the orders for complete details. ESRD -Acute HD ordered again for today. -Next HD Monday Hyponatremia Hyperkalemia Acidosis -HD TIW HTN with CKD/ CHF -Continue Nifedipine -Increase Coreg 25mg BID A/C Diastolic CHF -Acute HD with UF DM II with CKD DM II with gastroparesis -Restart insulin as indicated -Start Reglan Anemia in CKD -Retacrit PRN CARMELITA/ Secondary HyperPTH -Continue Vitamin D3 Hepatitis Pancreatitis -Follow up with GI
[2020-06-11] MEDS ORDERED: METOCLOPRAMIDE 10 MG/2mL INJ IV SCH (16:00)
--- NOTE | 2020-06-11 23:17 | CON ---
History Of Present Illness: The patient is a 50-year-old black female, who was admitted for headache associated with nausea and vomiting. She had an abnormal CT of the eye that showed possible intra-o cular tumor. The patient states that she has had the pain 5 to 7/10 for the past week and her family members had noticed the change in the appearance of the eye over the past week. Her past ocular his tory is positive for diabetic retinopathy and a retinal detachment in the right eye. She is not on a ny eye medications. She had surgery in the past to repair retinal detachment in the right eye. She is allergic to tramadol and has severe nausea. Past Medical History: Positive for 2 C-sections, hysterectomy, cholecystectomy, incisional hernia. She is on dialysis. She is a type 2 diabetic, that is diet-controlled. She has hypertension, hyperl ipidemia, congestive heart failure, coronary artery disease, hepatitis C. She has also had a coronar y stent. Medications: Her medications at home are carvedilol 3.125 mg b.i.d., nifedipine 90 mg b.i.d., and ga bapentin. Family History: Positive for cataract in her parents, diabetes in her father, heart disease in her f ather. Social History: She denies alcohol use or tobacco use. Review of Systems: Constitutional: She is oriented to place, person, and time. She appears tired. Psychologic: Negative. Ear, Nose, Throat: Negative. Cardiovascular: Negative. Respiratory: Negative. GI: Positive for nausea and vomiting. Musculoskeletal: Negative. : Negative. Skin and Breasts: Negative. Neurologic: Positive for headache. Endocrine: Positive for diabetes. Immunologic: Negative. Hematologic: Negative. Ocular Examination: She has no light perception in both eyes. Her tactile pressure is 0 in the righ t, but elevated in the left. Her pupils, there is no view of her iris. Confrontation cervantes are not possible because of vision. She has normal motility in her left eye. Her eyelids appear normal, bu t her left eye appears proptotic. Her conjunctiva is clear in the right eye. She has 3+ injection i n the left eye. Her right eye is . Her left eye has bulbous cornea that is covered with p igment posteriorly. There is no view of any other structures in the either eye. Impression: The patient is blind in both eyes. No light perception. She has ocular pain in the lef t eye. 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 My recommendation would be that she sees a specialist who could perform an enucleation and pathological evaluation. VARGAS/SUDHA Voice ID: [id number] Report ID: [id number]
[2020-06-11] MEDS: SUMATRIPTAN SUCC 6MG/0.5ML VIAL SQ PRN (23:59)
[2020-06-12 08:23] VITALS: BP 150/71; TEMP 98.6
--- NOTE | 2020-06-12 09:30 | PN ---
Date of Progress Note: 06/11/2020 Subjective: Patient was seen this morning for followup. Denied any new complaints. Headache is sti ll present, but better compared to before. Has nausea, but no vomiting. Denies any abdominal pain. Objective: Vital Signs: Reviewed. HEENT: Unremarkable, except swelling of the left superior eyelid region, unchanged from yesterday. Heart: Sounds normal. Abdomen: Soft. Bowel sounds normal. No guarding, rigidity, tenderness, or distention. Extremities: No leg edema. Laboratory Data: White count 5.5, hemoglobin 11.8, platelets 225. Sodium 139, potassium 4.6, chlori de 102, bicarb 26, BUN 30, creatinine 7.7, glucose 85, AST 87, ALT 348, alkaline phosphatase 116, lip ase 394. Impression: 1.Cluster headache. 2.Nausea with vomiting. 3.End-stage renal disease, on hemodialysis. 4.Hypertension. Plan: We will continue to follow with nursing specialist and neurologist. The patient's CAT scan of the h ead was negative for any acute intracranial changes, but it showed some abnormality of the left eye r aising possibility if there was any intra-ocular hemorrhage or some other abnormality as radiologist has noted. Patient is blind in both eyes and most of her pain is around her left eye region. Her le ft eyelid appears swollen also. This is something new in last few days. I have requested consultati on from Dr. Hernandez, who did visit the patient later today as communicated with me that she would ad vise for patient to see some specialist in [place] in near future on outpatient basis and she will he lp to make this arrangements as patient might need enucleation of the left thigh and Dr. David matthews ld like to make sure that there is no underlying tumor inside the left eye. Dr. Hernandez will assist with this outpatient appointment. Hopefully, we might be able to discharge her to go home over this weekend. VINCENT/MODL Voice ID: [id number] Report ID: [id number]
[2020-06-12] MEDS: NIFEDIPINE XL 60 MG TABLET PO SCH (09:41)
[2020-06-12] MEDS: carvediloL 12.5 MG TAB PO SCH (09:41)
[2020-06-12] MEDS: CALCITROL 0.25 MCG CAP PO SCH (09:41)
[2020-06-12] MEDS: VITAMIN D 5,000 UNIT CAP PO SCH (09:41)
[2020-06-12] MEDS: SUMATRIPTAN SUCC 6MG/0.5ML VIAL SQ PRN (09:58)
[2020-06-12 10:44] VITALS: O2SAT 98
--- NOTE | 2020-06-12 17:46 | P.PN ---
Date of Service: 06/12/20 Vital Signs Temp Pulse Resp BP Pulse Ox 98.6 F 71 15 150/71 H 100 06/12/20 08:00 06/12/20 09:41 06/12/20 08:00 06/12/20 09:41 06/12/20 08:00 Assessment/ Plan: Nephrology No acute cardiac or pulmonary complaints. No CP or SOB. Nausea and anorexia waxing and waning. No acute events overnight. Vitals, medications, blood work and imaging reviewed in the chart. General: In no apparent distress, Oriented x3, Cooperative HEENT: Atraumatic Neck: Supple Respiratory: Diminished Cardiovascular: Regular rate/rhythm, Edema Gastrointestinal: Soft and benign, Non-distended Musculoskeletal: No clubbing, No contractures Integumentary: No rashes, No cyanosis Neurological: Normal speech Urinary: Dialysis catheter Laboratory Data (last 24 hrs) 06/09/20 07:10: Lipase 703 H 06/09/20 07:10: PT 12.6 H, INR 1.09 06/09/20 07:10: WBC 6.10, Hgb 11.9 L, Hct 36.1, Plt Count 246 D 06/09/20 07:10: Sodium 134 L, Potassium 6.3 H*, BUN 121 H D, Creatinine 18.30 H* D, Glucose 88, Magnesium 2.7 H, Total Bilirubin 0.7, AST 402 H*, ALT 759 H*, Alkaline Phosphatase 151 H Imagings Data: EXAM DESCRIPTION: RAD - Chest Single View - 06/09/2020 8:25 am CLINICAL HISTORY: SOB Chest pain. COMPARISON: Chest Single View dated 02/22/2020; Chest Single View dated 10/06/2019; Chest Single View dated 10/03/2019; Chest Single View dated 10/02/2019 FINDINGS: Portable technique limits examination quality. Moderate right and small left pleural effusion are noted. Mild interstitial pulmonary edema is seen. The heart is moderately enlarged in size. Right-sided venous catheter has tip in the SVC. IMPRESSION: Mild volume overload pattern is observed. EXAM DESCRIPTION: CT - Abdomen Pelvis Wo Contrast - 06/09/2020 10:57 am CLINICAL HISTORY: Abdominal pain. elevated liver COMPARISON: Abdomen Pelvis Wo Contrast dated 04/17/2017; Chest Single View dated 06/09/2020 TECHNIQUE: CT imaging of the abdomen and pelvis was performed without contrast. Solid organ, bowel and vascular assessment is limited due to lack of IV and oral contrast. All CT scans are performed using dose optimization technique as appropriate and may include automated exposure control or mA/KV adjustment according to patient size. FINDINGS: Bilateral pleuotedral effusions are seen, greater on the right, with atelectasis or infiltrate in both lung bases. Noncontrast assessment of the liver demonstrates no significant biliary dilatation or evidence of a focal lesion. Prominent vascular calcification noted. Cholecystectomy is seen.The spleen, adrenal glands are within normal limits for noncontrast study. Pancreatic tail is somewhat difficult to fully assess given overlying small bowel loops in the region. No hydronephrosis of either kidney seen. Small benign renal cysts. Both kidneys appear mildly atrophic with heavy vascular calcifications seen. No bowel obstruction, free air, free fluid or abscess. Scattered colonic diverticula are present. The appendix is normal. The osseous structures are within normal limits. IMPRESSION: Bilateral pleural effusions with lung base opacity likely infiltrate or atelectasis. Heavy vascular calcification is present. Colonic diverticulosis is noted without diverticulitis. A limited non-contrast examination was performed as detailed. EXAM DESCRIPTION: US - Liver Only - 06/09/2020 9:41 am CLINICAL HISTORY: ruq us Abdominal pain COMPARISON: NMHEPATOBILIARY SYSTEM WITH PH dated 04/10/2015 FINDINGS: Liver echotexture is mildly hypoechoic.This can indicate underlying chronic hepatic inflammation.No focal liver lesion or intrahepatic biliary dilatation.No evidence of portal vein thrombosis. Cholecystectomy. Common bile duct measures 4-5 mm. IMPRESSION: Mildly hypoechoic appearance to the liver parenchyma may indicate underlying chronic inflammation or infection. Conclusions/Impression: A/P: Continue the current POC and Medications other than the changes listed. AM Labs PRN. Recommend daily weight. Please see the orders for complete details. ESRD -Next HD Monday Hyponatremia Hyperkalemia Acidosis -HD TIW HTN with CKD/ CHF -Continue Nifedipine -Continue Coreg 25mg BID A/C Diastolic CHF -HD with UF TIW DM II with CKD DM II with gastroparesis -Restart insulin as indicated -Continue Reglan Anemia in CKD -Retacrit PRN CARMELITA/ Secondary HyperPTH -Continue Vitamin D3 Hepatitis Pancreatitis -Follow up with GI
--- NOTE | 2020-06-12 21:01 | DS ---
Date of Discharge: 06/12/2020 Disposition: Discharged to go home. Physical Examination: HEENT: Unremarkable except some swelling of the left eyelid, which has remained unchanged. Heart: Sounds normal. Lungs: Clear to auscultation. Abdomen: Soft. Bowel sounds normal. No guarding, rigidity, tenderness, or distention. Extremities: No leg edema. Discharge Medications And Instructions: 1.Continue all prior home medications. 2.Zofran 4 mg 1 tablet by mouth 4 times a day as needed for nausea, vomiting. 3.The patient to contact Dr. Hernandez next week on Monday, which is 06/15/2020, to get appointment t o see diabetes solutions specialist in [place]. 4.Follow up at my office in 2 weeks. 5.Follow up with Dr. Alcala in 1 month and follow up with Dr. Shirley in 1-2 weeks. Laboratory Data: Upon admission, white count 6.1, hemoglobin 11.9, platelets 246 and last CBC yester day, white count 5.5, hemoglobin 11.8, platelets 225. Upon admission, sodium 134, potassium 6.3, chl oride 91, bicarb 19, BUN 121, creatinine 18.3, glucose 88, total bilirubin 0.7, direct bilirubin 0.3, AST 402, ALT 759, alkaline phosphatase 151, lipase 703. Last chemistry from yesterday, sodium 139, potassium 4.6, chloride 102, bicarb 26, BUN 30, creatinine 7.77, glucose 85, total bilirubin 0.5, AST 87, ALT 348, alkaline phosphatase 116, lipase 394. Her CAT scan of the head, no acute intracranial changes, but left eye globe appears abnormal compared to prior CAT scan. Her CT scan of abdomen, int raabdominal changes in right upper quadrant. Limited ultrasound also was unremarkable. COVID-19 gene t negative. Right upper quadrant abdominal ultrasound showed a hypoechoic appearance of the liver in dicating underlying chronic inflammation type of problem. Final Diagnoses: 1.Migraine headache, intractable. 2.Intractable nausea and vomiting secondary to above. 3.Acute pancreatitis. 4.Abnormal liver function tests. 5.Hyperkalemia. 6.Hyponatremia. 7.Hypertension. 8.End-stage renal disease, on hemodialysis. 9.Hyperlipidemia. 10.Coronary artery disease. 11.Chronic systolic congestive heart failure. 12.Diabetic gastroparesis. 13.Diabetic neuropathy. 14.Blindness. 15.Anemia due to chronic kidney disease. Hospital Course: This is a 50-year-old pleasant female patient, admitted to the hospital with headac he, nausea, vomiting. Please see dictated H and P for more information. After the patient was evalu ated in the emergency room, she was admitted to the hospital. The patient did not have any abdominal pain at all, but her liver function tests were abnormal and her lipase was elevated. Dr. Juan Luis palacios [facility] service was consulted. No further GI intervention needed. Her liver function tests continue to improve. The patient has a history of hepatitis C and reports that it was treated in the past. H er hepatitis profile was done, result pending. I have advised the patient to follow up with her [place] roenterologist, which is Dr. Shirley, on outpatient basis. Dr. Hernandez was consulted for abnormal ap pearance of the left eye globe on the CAT scan and she is concerned about possibility of tumor in the left eye, so she has suggested for the patient to see a specialist in [place] and Dr. Hernandez will schedule this appointment and I have advised the patient to contact her office on Monday. Dr. Orellana ll was consulted for headache problem. Overall, her headache has improved. She has some pain and di scomfort around her left eye, but overall she is feeling much better. She has some nausea, but no vo miting. The patient will be discharged to go home in stable condition with above-mentioned medication and instruction. Her last dialysis was yesterday. VINCENT/MODL Voice ID: [id number] Report ID: [id number]
[2020-06-14 19:14] LABS: HBsAG Nonreactive (Nonreactive)
[2020-06-15 18:56] LABS: Hep C Virus RNA (PCR)log <1.18 log IU/mL
== END 2020-06-12 13:49 | disposition home or self-care (01) | DRG 438 ==
LOC: ER 06:27 → ERHOLD 11:31 → 2ND 13:00
PROVIDERS: ADMIT Internal Medicine; ATTEND Internal Medicine
PROC: 5A1D70Z Performance of Urinary Filtration, Intermittent, Less than 6 Hours Per Day (ICD-10-PCS; principal; 2020-06-09)
DX: K85.90 Acute pancreatitis without necrosis or infection, unspecified (principal); N18.6 End stage renal disease; I13.2 Hypertensive heart and chronic kidney disease with heart failure and with stage 5 chronic kidney disease, or end stage renal disease; E87.1 Hypo-osmolality and hyponatremia; E87.2 Acidosis; N25.81 Secondary hyperparathyroidism of renal origin; R44.3 Hallucinations, unspecified; I50.22 Chronic systolic (congestive) heart failure; E11.22 Type 2 diabetes mellitus with diabetic chronic kidney disease; E11.43 Type 2 diabetes mellitus with diabetic autonomic (poly)neuropathy; K31.84 Gastroparesis; K75.9 Inflammatory liver disease, unspecified; G43.119 Migraine with aura, intractable, without status migrainosus; N25.0 Renal osteodystrophy; D63.1 Anemia in chronic kidney disease; I25.10 Atherosclerotic heart disease of native coronary artery without angina pectoris; E87.5 Hyperkalemia; H54.8 Legal blindness, as defined in USA; E78.5 Hyperlipidemia, unspecified; R94.5 Abnormal results of liver function studies; Z88.5 Allergy status to narcotic agent; Z99.2 Dependence on renal dialysis; Z90.49 Acquired absence of other specified parts of digestive tract; Z86.718 Personal history of other venous thrombosis and embolism; Z90.710 Acquired absence of both cervix and uterus; Z79.899 Other long term (current) drug therapy; Z95.5 Presence of coronary angioplasty implant and graft; Z91.15 Patient's noncompliance with renal dialysis; Z20.822 Contact with and (suspected) exposure to COVID-19
CPT/HCPCS: 36415; 70450; 71045; 74176; 76705; 80048; 80053; 80074; 80076; 82947; 83690; 83735; 83880; 84100; 84550; 85025; 85610; 86038; 86255; 87522; 90935; 93005; 94760; 99285; J0610; J1644; J2405; J2550; J2765; J2997; J3030; J7040; J7799; Q5105; U0003

== ENCOUNTER 2020-09-08 00:02 | Inpatient (IN) | payer OTHER ==
--- OUTSIDE RECORDS SUMMARY | 2020-09-08 00:18 | XMS REPORT | Continuity of Care Document ---
:1970 Author Organization [facility] t Address [address] [place] [address] Care Team Providers Name Role Phone UNKNOWN Primary Care Physician Unavailable Georgi Attending Clinician Unavailable Kristen Monte MD Attending Clinician Raulito ZARAGOZA Attending Clinician Unavailable Mychal Sellers MD Attending Clinician Aniceto BENZ Attending Clinician MD KRISTEN MONTE Attending Clinician Unavailable Pooja DAVILA Attending Clinician Unavailable Mode Attending Clinician Unavailable Cassandra ZARAGOZA Attending Clinician Unavailable Gabriel Attending Clinician Unavailable Rina Attending Clinician Unavailable Jeanette RN, P Attending Clinician Unavailable Zbigniew ARROYO Attending Clinician Unavailable Eliezer López MD Attending Clinician Rin Albarado Attending Clinician BRY CONNORS M.D. Attending Clinician Unavailable TOMASA Attending Clinician Unavailable ERNESTO THORPE Attending Clinician Unavailable JOSE DE JESUS Attending Clinician Unavailable Sara Davis Attending Clinician Benjamin Smith Attending Clinician William Warren Attending Clinician Malik Ku Attending Clinician Montrell Pulliam Attending Clinician LAVELL Admitting Clinician Unavailable MD KRISTEN MONTE Admitting Clinician Unavailable BRY CONNORS M.D., Livan Admitting Clinician Unavailable TOMASA Admitting Clinician Unavailable ERNESTO THORPE Admitting Clinician Unavailable JOSE DE JESUS Admitting Clinician Unavailable Payers Payer Name Policy Type Policy Effective Date Expiration Date Sour ce Number MEDICAREMEDICARE A [id number] 2015 GAURAV Glynn [id number] 2015- 00:00:00 - M edical [facility] MEDICAIDMEDICAID OF [id number] 2017 GAURAV Glynn [id number]/ 00:00:00 - [facility] MED[facility]IDMEDICAIDxxxxx [id number] 2017 Caroline johnson [id number] 2017-Present 00:00:00 Met ny yeung MEDICAREMEDICARE PART [id number] 2015 Rebel Licona AND 00:00:00 [employer] Witness [id number] 2015[facility] [place] Condition Condition Condition Status Onset Resolution Last Treating Co mments Source Name Details Category Date Date Treatment Clinician Date Coronary Coronary Disease Active Overview: Rebel christy atheroscle atheroscle 4-19 Formattin Methodi rosis rosis 00:00: g of this st 00 note might be different from the original. Cath 06/03: LAD:Non critical CAD: mid 40% , 60% distal //dominan t L Cx with 90 % mid-, 80% OM2 and OM3 disease); s/p mid LCx PCI (06/06)For matting of this note might be different from the original. CAD Coronaviru Coronaviru Disease Active H june s s 4-19 Methodi infection infection 00:00: st 00 ESRD (end ESRD (end Disease Active Overview: Hope stage stage 3-18 Formattin Methodi renal renal 00:00: g of this st disease) disease) 00 note might be different from the original. Added automatic ally from request for surgery [id number] Renal Renal Disease Active [facility] osteodystr osteodystr 09-10 Dc thodi ophy ophy 00:00: st 00 Secondary Secondary Disease Active Caroline johnson hyperparat hyperparat 09-10 Me rogers hyroidism hyroidism 00:00: st 00 Unspecifie Unspecifie Disease Active H jessiston d d 09-10 Methodi hypertensi hypertensi 00:00: st ve heart ve heart 00 and kidney and kidney disease disease with heart with heart failure failure and and chronic chronic kidney kidney disease disease stage V or stage V or end stage end stage renal renal disease(40 disease(40 4.93) 4.93) End stage End stage Disease Active Caroline johnson renal renal 09-10 Methodi failure on failure on 00:00: st dialysis dialysis 00 Type 2 Type 2 Disease Active [facility] diabetes diabetes 09-10 Method i mellitus mellitus 00:00: st with with 00 diabetic diabetic chronic chronic kidney kidney disease disease PERFORATED Diagnosis Active 2019-04-19 Memoria CORNEAL 2-06 11:44:00 l ULCER, 00:00: [place] LEFT EYE PERFORATED 00 CORNEAL ULCER, LEFT EYE Active 04/18/2019 [facility] Type 2 Type 2 Disease Active [facility] diabetes diabetes 4-24 Method i mellitus mellitus 00:00: st 00 Chronic Chronic Disease Active [facility] systolic systolic 9-05 Method i congestive congestive 00:00: st heart heart 00 failure failure Acute on Acute on Disease Active [place] chronic chronic 6- Methodi congestive congestive 00:00: st heart heart 00 failure failure Hypervolem Hypervolem Disease Active [place] ia ia 6-12 Methodi 00:00: st 00 Pleural Pleural Disease Active [facility] effusion effusion 3-20 Method i 00:00: st 00 Congestive Congestive Disease Active [place] heart heart 2-06 Methodi failure failure 00:00: st 00 Hyperkalem Hyperkalem Disease Active [place] ia ia 2-06 Methodi 00:00: st 00 Nausea Nausea Disease Active Hope 2 Methodi 00:00: st 00 Dyspnea Dyspnea Disease Active [facility] 04-18 Methodi 00:00: st 00 Coronary Coronary Disease Active 2016-03 [place] artery artery 2-28 Methodi disease disease 00:00: st 00 Deep vein Deep vein Disease Active 2016-03 Caroline ston thrombosis thrombosis 05-10 Me thodi (DVT) of (DVT) of 00:00: st right right 00 upper upper extremity extremity Diabetic Diabetic Disease Active 2016-03 [place] retinopath retinopath 05-10 Me thodi y y 00:00: st associated associated 00 with type with type 2 diabetes 2 diabetes mellitus mellitus Pain of Pain of Disease Active 2016-03 [facility] left lower left lower - Me thodi extremity extremity 00:00: st 00 Pulmonary Pulmonary Disease Active 2016-03 Caroline ston edema edema 05-10 Methodi 00:00: st 00 ESRD on ESRD on Disease Active 2016-03 [facility] hemodialys hemodialys 05-10 Me thodi is is 00:00: st 00 Anemia Anemia Disease Active 2016-03 Justice 04-26 Methodi 00:00: st 00 Hydrocepha Hydrocepha Disease Active 2016-03 H june eliot eliot 14 Methodi 00:00: st 00 History of History of Disease Active 2016-[address] DVT (deep DVT (deep 2-13 Luke s - vein vein 00:00: Medical thrombosis thrombosis 00 Ce nter ) ) Dizziness Dizziness Disease Active 2016-03 Caroline ston 2- Methodi 00:00: st 00 Headache Headache Disease Active 2016-03 [place] 2-13 Methodi 00:00: st 00 Nausea & Nausea & Disease Active 2016-03 [place] vomiting vomiting 2-13 Method i 00:00: st 00 Personal Personal Disease Active 2016-03 Overview: Rebel christy history of history of 2-13 Formattin Methodi other other 00:00: g of this st venous venous 00 note thrombosis thrombosis might be and and different embolism embolism from the original. Formattin g of this note might be different from the original. to right arm AVF AVF Disease Active 2016-03 Overview: Ary n (arteriove (arteriove 1-15 Formattin Methodi nous nous 00:00: g of this fistula) fistula) 00 note might be different from the original. Left-12/13 017 Ischemic Ischemic Disease Active 2016-03 [place] cardiomyop cardiomyop 0-23 Me thodi athy athy 00:00: st 00 Abnormal Abnormal Disease Active 2016-03 [place] levels of levels of 0-10 Meth betty other other 00:00: st serum serum 00 enzymes enzymes Increased Increased Disease Active 2016-03 Caroline ston serum serum 0-10 Methodi lipase lipase 00:00: st level level 00 Diarrhea Diarrhea Disease Active 2016-03 [place] 0-10 Methodi 00:00: st 00 Intractabl Intractabl Disease Active 2016-03 [place] e e 0-10 Methodi abdominal abdominal 00:00: st pain pain 00 End stage End stage Disease Active 2016-03 Caroline ston renal renal 0-10 Methodi disease disease 00:00: st 00 Hypertensi Hypertensi Disease Active [place] on on 10-12 Methodi 00:00: st 00 Hyperlipid Hyperlipid Disease Active [place] emia emia 8 Methodi 00:00: st 00 Mixed Mixed Disease Active [facility] hyperlipid hyperlipid 10-12 Me thodi emia emia 00:00: st 00 Pneumonia Pneumonia Disease Active Caroline ston 10-12 Methodi 00:00: st 00 End-stage End-stage Disease Active Caroline ston renal renal 8 Methodi disease on disease on 00:00: st peritoneal peritoneal 00 dialysis dialysis End-stage End-stage Disease Active Caroline ston renal renal 10-12 Methodi disease disease 00:00: st 00 Diabetes Diabetes Disease Active [place] mellitus mellitus 10-12 Method i 00:00: st 00 Chronic Chronic Disease Active Overview: [place] 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 Formattin M ethodi C virus C virus 00:00: g of this st infection infection 00 note might be different from the original. Formattin g of this note might be different from the original. hepatitis C virus ESRD (end ESRD (end Disease Active [facility] stage 3-24 [facility] - renal renal 00:00: Medical disease) disease) 00 Center Essential Essential Disease Active [facility] St hypertensi hypertensi 3-24 Brittany kes - on on 00:00: Medical 00 Center Type 2 Type 2 Disease Active [facility] diabetes diabetes 3-24 Method i mellitus mellitus 00:00: st with with 00 complicati complicati on on Essential Essential Disease Active Caroline ston hypertensi hypertensi 2-10 Me thodi on on 00:00: st 00 SOB SOB Disease Active [facility] (shortness (shortness 2-10 Me thodi of breath) of breath) 00:00: st on on 00 exertion exertion End-stage End-stage Disease Active Caroline ston renal renal 2-10 Methodi disease on disease on 00:00: st hemodialys hemodialys 00 is is NOSE BLEED Diagnosis Active 2015-08-05 Memoria 5 17:41:00 l NOSE 00:00: Yovani BLEED 00 Active 08/05/2015 [facility] Rodessa UNK Diagnosis Active 2015-08-21 [facility] oria 06-28 14:28:00 l UNK 00:00: Rod[place] 00 Active 06/29/2015 [facility] VOMITING/C Diagnosis [facility] 12:30[facility]00 l 00:00: [place] VOMITING/C 00 HILLS Active 06/17/2015 [facility] Chest pain Chest pain Disease Active H june 3- Methodi 00:00: st 00 Anemia in Anemia in Disease Active Caroline ston chronic chronic 1-27 Methodi kidney kidney 00:00: st disease disease 00 Anemia of Anemia of Disease Active Caroline ston chronic chronic 1-27 Methodi disease disease 00:00: st 00 Chronic Chronic Disease Active [facility] kidney kidney 1-27 Methodi disease, disease, 00:00: st stage IV stage IV 00 (severe) (severe) Diabetic Diabetic Disease Active [place] neuropathy neuropathy 1-27 Me thodi 00:00: st 00 Hypovolemi Hypovolemi Disease Active H june a a 1-27 Methodi 00:00: st 00 Uncontroll Uncontroll Disease Active H june ed type 1 ed type 1 1-27 Meth betty diabetes diabetes 00:00: st mellitus mellitus 00 VOMITING Diagnosis Active 2014-09-01 M emoria 08-29 13:41:00 l VOMITING 00:00: Myles n 00 Active 08/29/2014 [facility] History of Problem Resolve 2019-04-21 Memoria - migraine d 23:42:23 l (context-d History Her hollis ependent of - category) migraine (context-d ependent category) Resolved Problem 04/21/2019 [facility], Sara Squires [facility] Heart[facility] Problem Resolve 2019-04-21 M emoria (finding) d 23:42:23 l Yovani Heartburn (finding) Resolved Problem 04/21/2019 [facility], Sara Squires, KAYLYN Squires History of Past Illness Condition Condition Condition Status Onset Resolution Last Treating Co mments Source Name Details Category Date Date Treatment Clinician Date Discharge Problem 2015-06-20 2015-06-20 Memoria Diagnosis: - 03:51:39 03:51:39 l N&V 05:00: Yovani (nausea Discharge 00 and Diagnosis: vomiting) N&V (nausea and vomiting) 06/17/2015 06/20/2015 [facility] Discharge Problem 2014-09-01 2014-09-01 Memoria Diagnosis: 6-19 11:15:55 11:15:55 l Acute 05:00: Rodessa headache Discharge 00 Diagnosis: Acute headache 5 09/01/2014 [facility] Allergies, Adverse Reactions, Alerts Allergy Allergy Status Severity Reaction(s) Onset Inactive Treating Comm ents Source Name Type Date Date Clinician Latex Propensi Active Rash Only the [place] ty to 4-24 powder Methodi adverse 00:00: st reaction 00 s to drug Tramadol Propensi Active GI 2016-03 [place] to Intolerance, 0-10 Meth betty adverse Anaphylaxis, 00:00: st reaction Other (See 00 s to Comments) drug Tramadol Drug Active Nausea And dizziness [facility] Intolera Vomiting, 3-27 [facility] Other (See 00:00: Medica l Comments) 00 Center No Known DA Active U 2004-0 [facility] 5[facility]18 [place] Intolera 00:00: d nces 00 Medical Center No Known DA Active U 2004-0 [facility] Contrast 5-18 [facility] Allergie 00:00: d s Medical Center No Known DA Active U 2004-0 [facility] Drug 5[facility]18 [place] Allergie 00:00: d s [facility] Center No Known DA Active U 2004-0 [facility] Food 5-18 [place] Allergie 00:00: d Medical Center No Known DA Active U 2004-0 [facility] Other 5-18 [place] Allergie 00:00: d [facility] Center traMADol traMADol Active Alex Pina Family History Family Member Diagnosis Comments Start Date Stop Date Source Natural father Diabetes Vinh Me thodist Natural father Heart failure Justice [employer]ah[employer] Witness Natural father Hypertension [facility] [employer] [facility] Natural mother Diabetes Justice Me thodist Natural mother Heart failure Hope [employer]ah[employer] Witness Natural mother Hypertension [facility] Social History Social Habit Start Date Stop Date Quantity Comments Source Exposure to Not sure Justice Metho dist SARS-CoV-2 (event) Tobacco use and 2020-07-01 2020-07-01 Never used [facility] ethodist exposure 00:00:00 00:00:00 Alcohol intake 2020-07-01 2020-07-01 Current drinker [place] [employer] 00:00:00 00:00:00 of alcohol (finding) Alcohol Comment 2020-06-01 2020-06-01 LESS THAN [facility] ethodist 00:00:00 00:00:00 MONTHLY Tobacco Comment 2018-07-04 2018-07-04 Denies use of [place] [employer] [place] 00:00:00 00:00:00 nicotine products Social History 2015-06-30 2015-06-30 [facility] ermann 18:17:45 18:17:45 Sex [birth year] At [birth year] [facility] Sara medinaodist 00:00:00 00:00:00 Smoking Status Start Date Stop Date Source Never smoker Hope Milana Medications Ordered Filled Start Stop Current Ordering Indication Dosage Frequency Signature Comments Components Source Medication Medication Date Date Medication? Clinician (SIG) Name Name lidocaine-p 2021- Yes Apply [place] rilocaine 08-19 topically Meth betty (EMLA) 00:00: 23:[address] 2.5-2.5 % 00 :00 for mild cream pain. Apply to area 30-45 minutes prior to dialysis. NIFEdipine Yes 90mg QD Take 90 mg [place] XL 06 by mouth Methodi (PROCARDIA 12:17: daily. st XL) 90 MG 51 24 hr tablet sevelamer Yes 800mg [id number] Take 800 Justice (RENVELA) 07-16 [id number] mg by Met hodi 800 mg 12:17: 3D mouth 3 st tablet 51 (three) times a day with meals. gabapentin Yes 100mg Q.[id number] Take 100 Justice (NEURONTIN) 07-16 [id number] mg by M ethodi 100 mg 12:17: 3D mouth 3 st capsule 51 (three) times a day. UNKNOWN TO Yes Hope PATIENT 5-06 Methodi 12:17: st 51 HYDROcodone Yes acute pain 1{tbl} Q6H Take 1 Vinh -acetaminop 4-19 tablet by Met elissa jenkins ([place]) 00:00: mouth st 5-325 mg 00 every 6 per tablet (six) hours as needed for moderate pain for up to 5 days .acute pain. Max Daily Amount: 4 tablets carvediloL Yes Justice (COREG) 3-15 Methodi 3.125 MG 00:00: st tablet 00 Hydralazine 2020-0 No 10 mg, Juan Manuel héctor 04-19 Route: l 21:10: IVP, Rodessa 00 Q20Min, Dosing Weight 70.9, kg, PRN Elevated BP, Start date: 04/19/19 15:10:00 HAND COUNTER, Duration: 2 doses or times, Stop date: Limited # of times Labetalol 2020-0 No 10 mg, Memori a 04-19 Route: l 21:10: IVP, Rodessa 00 Q5Min, Dosing Weight 70.9, kg, PRN Elevated BP, Start date: 04/19/19 15:10:00 HAND COUNTER, Duration: 5 doses or times, Stop date: Limited # of times Acetaminoph 2020-0 No 1,000 mg, Sara emoria en 04-19 Route: PO, l 21:10: Drug form: Rodessa 00 TAB, ONCE, Dosing Weight 70.9, kg, PRN Pain Score 1-3, Start date: 04/19/19 15:10:00 HAND COUNTER Oxycodone 2020-0 No 5 mg, Memoria Hydrochlori - Route: PO, l de 5 MG 21:10: Drug form: Herm fabricio Oral Tablet 00 TAB, Q4H, Dosing Weight 70.9, kg, PRN Pain Score 4-6, Start date: 04/19/19 15:10:00 HAND COUNTER, Duration: 30 day, Stop date: 05/19/19 15:09:00 CDT Hydromorpho 2020-0 No 0.5 mg, Mem oria ne 2 Route: l 21:10: IVP, Yovani 00 Q5Min, Dosing Weight 70.9, kg, PRN Pain Score 7-10, Start date: 04/19/19 15:10:00 HAND COUNTER, Duration: 4 doses or times, Stop date: Limited # of times Flumazenil 2020-0 No 0.2 mg, Juan Manuel héctor 2-07 Route: l 21:10: IVP, PRN, Rodessa 00 Dosing Weight 70.9, kg, PRN Benzodiaze pine Reversal, Initial dose, Start date: 04/19/19 15:10:00 HAND COUNTER, Duration: 30 day, Stop date: 05/19/19 16:09:00 CDT Naloxone 2020-0 No 0.4 mg, Memori a 2-07 Route: l 21:10: IVP, Rodessa 00 Q2MIN, Dosing Weight 70.9, kg, PRN Narcotic Reversal, Start date: 04/19/19 15:10:00 HAND COUNTER, Duration: 8 doses or times, Stop date: Limited # of times Ondansetron 2020-0 No 4 mg, Memor ia 2- Route: l 21:10: IVP, ONCE, Yovani 00 Dosing Weight 70.9, kg, PRN Nausea & Vomiting, Start date: 04/19/19 15:10:00 HAND COUNTER Hydralazine 2020-0 No 10 mg, Juan Manuel héctor 2-07 Route: l 21:10: IVP, Yovani 00 Q20Min, Dosing Weight 70.9, kg, PRN Elevated BP, Start date: 04/19/19 15:10:00 HAND COUNTER, Duration: 2 doses or times, Stop date: Limited # of times Labetalol 2020-0 No 10 mg, Memori a 2-07 Route: l 21:10: IVP, Rodessa 00 Q5Min, Dosing Weight 70.9, kg, PRN Elevated BP, Start date: 04/19/19 15:10:00 HAND COUNTER, Duration: 5 doses or times, Stop date: Limited # of times Acetaminoph 2020-0 No 1,000 mg, M emoria en 2-07 Route: PO, l 21:10: Drug form: Rodessa 00 TAB, ONCE, Dosing Weight 70.9, kg, PRN Pain Score 1-3, Start date: 04/19/19 15:10:00 HAND COUNTER Oxycodone 2020-0 No 5 mg, Memoria Hydrochlori - Route: PO, l de 5 MG 21:10: Drug form: Herm fabricio Oral Tablet 00 TAB, Q4H, Dosing Weight 70.9, kg, PRN Pain Score 4-6, Start date: 04/19/19 15:10:00 HAND COUNTER, Duration: 30 day, Stop date: 05/19/19 15:09:00 CDT Hydromorpho 2020-0 No 0.5 mg, Mem oria ne 2 Route: l 21:10: IVP, Rodessa 00 Q5Min, Dosing Weight 70.9, kg, PRN Pain Score 7-10, Start date: 04/19/19 15:10:00 HAND COUNTER, Duration: 4 doses or times, Stop date: Limited # of times Flumazenil 2020-0 No 0.2 mg, Juan Manuel héctor 04-19 Route: l 21:10: IVP, PRN, Yovani 00 Dosing Weight 70.9, kg, PRN Benzodiaze pine Reversal, Initial dose, Start date: 04/19/19 15:10:00 HAND COUNTER, Duration: 30 day, Stop date: 05/19/19 16:09:00 CDT Naloxone 2020-0 No 0.4 mg, Memori a 04-19 Route: l 21:10: IVP, Yovani 00 Q2MIN, Dosing Weight 70.9, kg, PRN Narcotic Reversal, Start date: 04/19/19 15:10:00 HAND COUNTER, Duration: 8 doses or times, Stop date: Limited # of times Ondansetron 2020-0 No 4 mg, Memor ia 04-19 Route: l 21:10: IVP, ONCE, Rodessa 00 Dosing Weight 70.9, kg, PRN Nausea & Vomiting, Start date: 04/19/19 15:10:00 HAND COUNTER ondansetron 2019-0 No Route: IV, Memoria (ANES) 04-19 Drug form: l 20:55: INJ, ONCE, Stop date: 04/19/19 14:55:00 HAND COUNTER glycopyrrol 2019-0 No Route: IV, Memoria ate (ANES) 04-19 Drug form: l 20:55: INJ, ONCE, Stop date: 04/19/19 14:55:00 HAND COUNTER neostigmine 2020-0 No Route: IV, Memoria (ANES) 2- Drug form: l 20:55: INJ, ONCE, Stop date: 04/19/19 14:55:00 HAND COUNTER ondansetron 2020-0 No Route: IV, Memoria (ANES) 2 Drug form: l 20:55: INJ, ONCE, Stop date: 04/19/19 14:55:00 HAND COUNTER glycopyrrol 2020-0 No Route: IV, Memoria ate (ANES) 04-19 Drug form: l 20:55: INJ, ONCE, Stop date: 04/19/19 14:55:00 HAND COUNTER neostigmine 2019-0 No Route: IV, Memoria (ANES) 2 Drug form: l 20:55: INJ, ONCE, Stop date: 04/19/19 14:55:00 HAND COUNTER dexamethaso 2020-0 No Route: IV, Memoria ne (ANES) 04-19 Drug form: l 20:27: INJ, ONCE, Stop date: 04/19/19 14:27:00 HAND COUNTER dexamethaso 2020-0 No Route: IV, Memoria ne (ANES) 04-19 Drug form: l 20:27: INJ, ONCE, Stop date: 04/19/19 14:27:00 HAND COUNTER lidocaine 2020-0 No Route: IV, Me moria (ANES) 04-19 Drug form: l 20:22: INJ, ONCE, Stop date: 04/19/19 14:22:00 HAND COUNTER propofol 2020-0 No Route: IV, Mem oria (ANES) 2 Drug form: l 20:22: INJ, ONCE, Stop date: 04/19/19 14:22:00 HAND COUNTER rocuronium 2020-0 No Route: IV, M emoria (ANES) 04-19 Drug form: l 20:22: INJ, ONCE, Stop date: 04/19/19 14:22:00 HAND COUNTER fentaNYL 2020-0 No Route: IV, Mem oria (ANES) 04-19 Drug form: l 20:22: INJ, ONCE, Stop date: 04/19/19 14:22:00 HAND COUNTER ePHEDrine 2020-0 No Route: IV, Me moria (ANES) 2- Drug form: l 20:22: INJ, ONCE, Stop date: 04/19/19 14:22:00 HAND COUNTER phenylephri 2020-0 No Route: IV, Memoria ne (ANES) 2- Drug form: l 20:22: INJ, ONCE, Stop date: 04/19/19 14:22:00 HAND COUNTER lidocaine 2020-0 No Route: IV, Me moria (ANES) 2- Drug form: l 20:22: INJ, ONCE, Stop date: 04/19/19 14:22:00 HAND COUNTER propofol 2020-0 No Route: IV, Mem oria (ANES) 2- Drug form: l 20:22: INJ, ONCE, Stop date: 04/19/19 14:22:00 HAND COUNTER rocuronium 2020-0 No Route: IV, M emoria (ANES) 2- Drug form: l 20:22: INJ, ONCE, Stop date: 04/19/19 14:22:00 HAND COUNTER fentaNYL 2020-0 No Route: IV, Mem oria (ANES) 2- Drug form: l 20:22: INJ, ONCE, Stop date: 04/19/19 14:22:00 HAND COUNTER ePHEDrine 2020-0 No Route: IV, Me moria (ANES) 2- Drug form: l 20:22: INJ, ONCE, Stop date: 04/19/19 14:22:00 HAND COUNTER phenylephri 2020-0 No Route: IV, Memoria ne (ANES) 2- Drug form: l 20:22: INJ, ONCE, Stop date: 04/19/19 14:22:00 HAND COUNTER Sodium 2020-0 No Route: IV, Memor ia Chloride 2-07 Total l 0.9% IV 19:17: Volume: Rodessa (ANES) 500 00 500, Start mL date: 04/19/19 13:17:00 HAND COUNTER, Stop date: 04/19/19 14:17:00 HAND COUNTER Sodium 2020-0 No Route: IV, Memor ia Chloride 2-07 Total l 0.9% IV 19:17: Volume: Rodessa (ANES) 500 00 500, Start mL date: 04/19/19 13:17:00 HAND COUNTER, Stop date: 04/19/19 14:17:00 HAND COUNTER Home Yes Refill(s) Memoria Medication 2-07 0 l 18:38: gabapentin 2019-0 Yes PO, 0 Memori a 2-07 Refill(s) l 18:38: Home Yes Refill(s) Memoria Medication 2-07 0 l 18:38: gabapentin 2019-0 Yes PO, 0 Memori a 2-07 Refill(s) l 18:38: 00 calcitriol 2016-03 Yes .25ug QD Take 0.[address] (ROCALTROL) 2-15 mcg by [facility] - 0.25 MCG 07:04: mouth Medical capsule 06 daily. [place] valsartan 2016-03 Yes 160mg QD Take [address] (DIOVAN) 2-15 mg by [facility] - 160 MG 07:04: mouth Medical tablet 06 daily. [place] apixaban 2016-03 Yes 5mg Q.5D Take 5 [...] by mouth [facility] - 00:00: daily . Medical 00 [place] Hydromorpho No 0.3 mg, Mem oria ne [...] 30 mg Product Wasted: ___ mg Zofran No 4 mg, Memoria 4-20 Route: l 17:20: IVP, ONCE, Dosing Weight 94.119, kg, Start date: 07/01/15 12:20:00 CDT, Stop date: 07/01/15 12:20:00 CDT Zofran No 4 mg, Memoria 4-20 Route: l 17:20: IVP, ONCE, Dosing Weight 94.119, kg, Start date: 07/01/15 12:20:00 CDT, Stop date: 07/01/15 12:20:00 CDT Sodium No 500 mL, Memoria Chloride 4-20 Rate: 25 l 0.154 15:21: ml/hr, Rodessa MEQ/ML 00 Infuse Injectable over: 20 Solution [...] 4-20 Rate: 25 l 0.0014 15:21: ml/hr, Rodessa MEQ/ML / 00 Infuse Potassium over: 40 Chloride hr, Route: 0.004 IV, Dosing MEQ/ML / Weight Sodium 94.119 kg, Chloride Total 0.103 Volume: MEQ/ML / 1,000, Sodium Start Lactate date: 0.028 07/01/15 MEQ/ML 10:21:00 Injectable CDT, Solution Duration: 30 day, Stop date: 07/31/15 10:20:00 CDT Ancef 2015-0 No Notes: Memoria 4-20 Same as: l 12:00: Ancef [place] Vancomycin 2016-0 No 2000 mg: Me moria 4-20 infuse l 12:00: over 2.5 Yovani 00 hours MEDICATION WASTE Product Size: 1000 mg Product Wasted: ___ mg Ancef 2016-0 No Notes: Memoria 4-20 Same as: l 12:00: Ancef Rodessa 00 Vancomycin 2016-0 No 2001 mg: Me moria 4-20 infuse l 12:00: over 2.5 Rodessa 00 hours MEDICATION WASTE Product Size: 1000 mg Product Wasted: ___ mg Aspirin 81 2016-0 Yes 81 mg = 1 Me moria MG Enteric 4-19 tab, PO, l Coated 18:20: Daily, # Yovani Tablet 00 90 tab, 3 Refill(s) Aspirin 81 [id number] Yes 81 mg = 1 Me moria MG Enteric 4-19 tab, PO, l Coated 18:20: Daily, # Yovani Tablet 00 90 tab, 3 Refill(s) NovoLOG 20160 Yes SUB-Q, Memoria 70/30 4-19 ONCE, 0 l 18:19: Refill(s) Hydralazine Yes 0 Memori a 4-19 Refill(s) l 18:19: metoprolol [id number] Yes BID, 0 Memor ia tartrate 4-19 Refill(s) l 18:19: Rodessa 00 Ondansetron 0 Yes 8 mg = 1 Me moria 8 MG Oral 4-19 tab, PO, l Tablet 18:19: BID, 0 Rodessa [Zofran] 00 Refill(s) Furosemide 0 Yes 40 mg = 1 Me moria 40 MG Oral 4-19 tab, PO, l Tablet 18:19: Daily, 0 Refill(s) NovoLOG 0 Yes SUB-Q, Memoria 70/30 4-19 ONCE, 0 l 18:19: Refill(s) Hydralazine 0 Yes 0 Memori a 4-19 Refill(s) l 18:19: metoprolol 2016-0 Yes BID, 0 Memor ia tartrate 4-19 Refill(s) l 18:19: Yovani 00 Ondansetron 0 Yes 8 mg = 1 Me moria 8 MG Oral 4-19 tab, PO, l Tablet 18:19: BID, 0 Yovani [Zofran] 00 Refill(s) Furosemide 2016-0 Yes 40 mg = 1 Me moria 40 MG Oral 4-19 tab, PO, l Tablet 18:19: Daily, 0 Rodessa 00 Refill(s) Ondansetron Yes 8 mg = [...] 06-16 (Same as: l 16:40: Zofran) Yovani MEDICATION WASTE Product Size: 4 mg Product Wasted: ___ mg Morphine No Notes: Memoria 06-16 (Same l 16:40: as:MORPhin Rodessa 00 e Sulfate) Sodium No 1,000 mL, Memori a Chloride 06-16 1,000 l 0.154 16:40: ml/hr, Yovani MEQ/ML 00 Infuse Injectable Over: 1 Solution hr, Route: IV, 1,000, Drug form: INJ, ONCE, Priority: STAT, Dosing Weight 86.364 kg, Start date: 06/17/15 11:40:00, Duration: 1 doses or times, Stop date: 06/17/15 11:40:00 Ondansetron 2015-0 No Notes: Juan Manuel héctor 06-16 (Same as: l 16:40: Zofran) Rodessa 00 MEDICATION WASTE Product Size: 4 mg Product Wasted: ___ mg Morphine No Notes: Memoria 4-06 (Same l 16:40: as:MORPhin Rodessa 00 e Sulfate) Acetaminoph No Special Mem oria en 300 MG / 619 Instructio l butalbital 21:16: ns: Do not H ermann 50 MG / 00 exceed 6 Caffeine 40 capsules MG Oral in 24 Capsule hours [Fioricet] Acetaminoph No Special Mem oria en 300 MG / 619 Instructio l butalbital 21:16: ns: Do not H ermann 50 MG / 00 exceed 6 Caffeine 40 capsules MG Oral in 24 Capsule hours [Fioricet] methylPREDN No Notes: Juan Manuel héctor ISolone - (Same l SODium 20:39: as:Solu-ME Deepika nn SUCCinate 00 DROL, A-Methapre d) methylPREDN No Notes: Juan Manuel héctor ISolone 6- (Same l SODium 20:39: as:Solu-ME Deepika nn SUCCinate 00 DROL, A-Methapre d) Benadryl No Notes: Memoria 6-19 (Same as: l 20:38: Benadryl) Rodessa 00 Sodium No 1,000 mL, Memori a Chloride - 1,000 l 0.154 20:38: ml/hr, Rodessa MEQ/ML 00 Infuse Injectable Over: 1 Solution hr, Route: IV, 1,000, Drug form: INJ, ONCE, Priority: STAT, Dosing Weight 86.364 kg, Start date: 08/29/14 15:38:00, Duration: 1 doses or times, Stop date: 08/29/14 15:38:00 Reglan No Notes: Memoria 6-19 (Same as: l 20:38: Reglan) Yovani 00 Benadryl No Notes: Memoria 6-19 (Same as: l 20:38: Benadryl) Rodessa 00 Sodium No 1,000 mL, Memori a Chloride 6- 1,000 l 0.154 20:38: ml/hr, Rodessa MEQ/ML 00 Infuse Injectable Over: 1 Solution hr, Route: IV, 1,000, Drug form: INJ, ONCE, Priority: STAT, Dosing Weight 86.364 kg, Start date: 08/29/14 15:38:00, Duration: 1 doses or times, Stop date: 08/29/14 15:38:00 Reglan 2015-0 No Notes: Memoria 08-29 (Same as: l 20:38: Reglan) Rodessa 00 Vital Signs Vital Name Observation Time Observation Value Comments Source Systolic blood 2020-08-19 14:31:00 126 mm[Hg] Reaganto n [facility] pressure Diastolic blood 2020-08-19 14:31:00 78 mm[Hg] Yeimy on [facility] pressure Heart rate 2020-08-19 14:31:00 94 /min Ujstice [facility] Body temperature 2020-08-19 14:31:00 36.56 Loreto Reagan ton [facility] Body height 2020-08-19 14:31:00 172.7 cm Justice [facility] Oxygen saturation in 2020-08-19 14:31:00 99 /min Hope [facility] [facility] Arterial blood by Pulse oximetry Body weight 2020-07-16 12:17:00 70.035 kg Justice [facility] BMI 2020-07-16 12:17:00 23.48 kg/m2 Justice [facility] Respiratory rate 2020-06-29 14:28:00 16 /min Reagan march [facility] Respitory Rate 2019-04-19 21:57:00 Memori al Rodessa Systolic (mm Hg) 2019-04-19 21:57:00 Juan Manuel rial Rodessa Diastolic (mm Hg) 2019-04-19 21:57:00 Mem orial Rodessa Respitory Rate 2019-04-19 21:45:00 Memori al Rodessa Systolic (mm Hg) 2019-04-19 21:45:00 Juan Manuel rial Rodessa Diastolic (mm Hg) 2019-04-19 21:45:00 Mem orial Rodessa Respitory Rate 2019-04-19 21:30:00 Memori al Yovani Systolic (mm Hg) 2019-04-19 21:30:00 Juan Manuel rial Rodessa Diastolic (mm Hg) 2019-04-19 21:30:00 Mem orial Yovani Heart Rate 2019-04-19 18:39:00 [facility] Height 2019-04-19 18:24:00 170.18 cm [facility] Yovani Weight 2019-04-19 18:24:00 [facility] Yovani BMI Calculated 2019-04-19 18:24:00 Memori al Rodessa BMI Calculated 2015-08-05 22:10:00 Memori al Yovani Height 2015-08-05 22:10:00 172.72 cm [facility] Rodessa Weight 2015-08-05 22:10:00 [facility] Y[facility] Temperature Oral (F) 2015-08-05 22:10:00 97.7 F [facility] Yovani Heart Rate 2015-08-05 22:10:00 [facility] Rodessa Respitory Rate 2015-08-05 22:10:00 Memori al Yovani Systolic (mm Hg) 2015-08-05 22:10:00 Juan Manuel rial Yovani Diastolic (mm Hg) 2015-08-05 22:10:00 Mem orial Rodessa Respitory Rate 2015-07-01 23:00:00 Memori al Rodessa Systolic (mm Hg) 2015-07-01 23:00:00 Juan Manuel rial Yovani Diastolic (mm Hg) 2015-07-01 23:00:00 Mem orial Yovani Respitory Rate 2015-07-01 22:45:00 Memori al Rodessa Systolic (mm Hg) 2015-07-01 22:45:00 Juan Manuel rial Yovani Diastolic (mm Hg) 2015-07-01 22:45:00 Mem orial Yovani Systolic (mm Hg) 2015-07-01 22:15:00 Juan Manuel rial Rodessa Diastolic (mm Hg) 2015-07-01 22:15:00 Mem orial Yovani Respitory Rate 2015-07-01 22:15:00 Memori al Rodessa Temperature Oral (F) 2015-07-01 12:08:00 98.2 F [facility] Rodessa Heart Rate 2015-07-01 12:08:00 [facility] BMI Calculated 2015-06-30 18:01:00 Memori al Rodessa Height 2015-06-30 18:01:00 170.18 cm [facility] Y[facility]ani Weight 2015-06-30 18:01:00 [facility] Yovani Heart Rate 2015-06-17 18:10:00 [facility] Rodessa Temperature Oral (F) 2015-06-17 18:10:00 98.0 F [facility] Yovani Respitory Rate 2015-06-17 18:10:00 Memori al Rodessa Systolic (mm Hg) 2015-06-17 18:10:00 Juan Manuel rial Rodessa Diastolic (mm Hg) 2015-06-17 18:10:00 Mem orial Yovani Weight 2015-06-17 16:43:00 [facility] Yovani Heart Rate 2015-06-17 16:43:00 [facility] Yovani Respitory Rate 2015-06-17 16:43:00 Memori al Yovani Systolic (mm Hg) 2015-06-17 16:43:00 Juan Manuel rial Rodessa Diastolic (mm Hg) 2015-06-17 16:43:00 Mem orial Rodessa BMI Calculated 2015-06-17 16:43:00 Memori al Yovani Height 2015-06-17 16:43:00 172.72 cm [facility] Rodessa Temperature Oral (F) 2015-06-17 16:43:00 98.2 F [facility] Yovani Systolic (mm Hg) 2014-08-29 23:51:00 Juan Manuel rial Yovani Diastolic (mm Hg) 2014-08-29 23:51:00 Mem orial Yovani Temperature Oral (F) 2014-08-29 23:51:00 98.3 F [facility] Rodessa Heart Rate 2014-08-29 23:51:00 [facility] Rodessa Respitory Rate 2014-08-29 23:51:00 Memori al Yovani Respitory Rate 2014-08-29 22:20:00 Memori al Yovani Heart Rate 2014-08-29 22:20:00 [facility] Rodessa Systolic (mm Hg) 2014-08-29 22:20:00 Juan Manuel rial Rodessa Diastolic (mm Hg) 2014-08-29 22:20:00 Mem orial Yovani Weight 2014-08-29 20:01:00 [facility] Y[facility] BMI Calculated 2014-08-29 20:01:00 Memori al Rodessa Heart Rate 2014-08-29 20:01:00 [facility] Y[facility]ani Respitory Rate 2014-08-29 20:01:00 Memori al Yovani Systolic (mm Hg) 2014-08-29 20:01:00 Juan Manuel rial Rodessa Diastolic (mm Hg) 2014-08-29 20:01:00 Mem orial Yovani Temperature Oral (F) 2014-08-29 20:01:00 98.3 F [facility] Rodessa Height 2014-08-29 20:01:00 172.72 cm [facility] Rodessa Procedures Procedure Date / Time Performing Clinician Source Performed POC GLUCOSE 2020-06-29 14:48:00 Medardo Monte odist [facility] POC GLUCOSE 2020-06-29 14:15:00 Medardo Monte odist [facility] POC GLUCOSE 2020-06-29 13:55:00 Medardo Monte Cori odist [facility] POC GLUCOSE 2020-06-29 12:59:00 Lavell Medardo Persaud odist [facility] TRANSPOSITION, VEIN, 2020-06-29 10:18:00 Medardo Monte BASILIC, SECOND OF 2 Monte-[facility]si STAGES TX AN PERIPHERAL BLOCK 2020-06-29 10:11:47 Pool Sellers on [facility] PROCEDURE FOR PAIN Vincent ESTIMATED GFR 2020-06-29 08:52:00 Medardo Monte odmahi [facility] POC PANEL 2020-06-29 08:52:00 Medardo Monte odmahi [facility] BASIC METABOLIC PANEL 2020-06-29 08:47:00 Medardo Monte [facility] ESTIMATED GFR 2020-06-29 08:47:00 Medardo Monte odmahi [facility] XR CHEST 2 VW 2020-06-26 20:44:49 Pool Sellers Vincent COVID-19 QUALITATIVE 2020-06-26 11:22:00 Medardo Monte RT-PCR [facility] PARTIAL THROMBOPLASTIN 2020-06-26 11:22:00 Medardo Monte on [facility] TIME (PTT) [facility] PROTHROMBIN TIME WITH INR 2020-06-26 11:22:00 Medardo Monte [facility] HC COMPLETE BLD COUNT 2020-06-26 11:22:00 Medardo Monte W/AUTO DIFF [facility] TYPE AND SCREEN 2020-06-26 11:22:00 Medardo Monte odist [facility] HEMOGLOBIN A1C 2020-06-26 11:22:00 Vinh Alston HEPATIC FUNCTION PANEL 2020-06-26 11:22:00 Yeimy Alston on [facility] Steve King XR CHEST 2 VW 2020-06-01 12:28:12 Medardo Monte guillermo [facility] ECG PRE/POST OP 2020-06-01 12:02:14 Lavell Medardo Justice Cori [facility] COVID-19 QUALITATIVE 2020-06-01 11:45:00 Medardo Monte RT-PCR [facility] PARTIAL THROMBOPLASTIN 2020-06-01 11:28:00 Medardo Monte on [facility] TIME (PTT) [facility] PROTHROMBIN TIME WITH INR 2020-06-01 11:28:00 Medardo Monte uston [facility] HC COMPLETE BLD COUNT 2020-06-01 11:28:00 Medardo Monteist W/AUTO DIFF [facility] TYPE AND SCREEN 2020-06-01 11:28:00 Medardo Monte guillermo [facility] HEMOGLOBIN A1C 2020-06-01 11:28:00 Vinh Alston HCG QUALITATIVE, SERUM 2020-06-01 11:28:00 Yeimy Alston on [facility] SCREEN Steve King SARS-COV2/RT-PCR ([facility] & 2019-10-02 19:28:00 [facility] 2014-[facility]13 00:00:00 [facility] CS - section [facility] Plan of Care Planned Activity Planned Date Details Comments Source Future Scheduled 2020-10-11 INFLUENZA VACCINE Reaganto n [facility] Test 00:00:00 [code = INFLUENZA VACCINE] Future Scheduled 1992-01-17 Screening for [facility] thodist Test 00:00:00 malignant neoplasm of cervix (procedure) [code = 867200537] Future Scheduled 1981 DIABETES: RETINAL [place] [facility] Test 00:00:00 EYE EXAM [code = DIABETES: RETINAL EYE EXAM] Future Scheduled 1981 DIABETIC FOOT EXAM Reagant on [facility] Test 00:00:00 [code = DIABETIC FOOT EXAM] Encounters Start End Encounter Admission Attending Care Care Encounter Source Date/Time Date/Time Type Type Clinicians Facility Department ID 2020-08-19 2020-08-19 Outpatient LAVELL, [facility] [id number] [facility] 00:00:00 00:00:00 MEDARDO 152 Method i 2020-07-16 2020-07-16 Outpatient LAVELL, [facility] [id number] [facility] 00:00:00 00:00:00 MEDARDO 712 Method i 2020-06-29 2020-06-29 Outpatient LAVELL, [facility] [id number] [facility] 00:00:00 00:00:00 MEDARDO 433 Method i 2020-06-26 2020-06-26 Outpatient LAVELL, [facility] [id number] [facility] 00:00:00 00:00:00 MEDARDO 254 Method i 2020-06-26 2020-06-26 Outpatient HERMINIOKLTERRELL, [facility] [id number] [facility] 00:00:00 00:00:00 POOL 152 Method i 2020-06-01 2020-06-01 Outpatient LAVELL, [facility] [id number] [facility] 00:00:00 00:00:00 MEDARDO 154 Method i 2020-06-01 2020-06-01 Outpatient LAVELL, [facility] [id number] [facility] 00:00:00 00:00:00 MEDARDO 752 Method i 2020-05-27 2020-05-27 Outpatient LAVELL, [facility] [id number] Hope 00:00:00 00:00:00 MEDARDO 585 Method i 2019-04-19 2019-04-19 Outpatient Sheyla Albarado [facility] [id number] 11:35:00 23:59:00 Rin 2019-04-19 2019-04-19 Outpatient Sheyla Albarado [facility] [id number] 11:35:00 23:59:00 Rin 2019-04-19 2019-04-19 Outpatient [facility] [id number] [facility] 11:35:00 11:35:00 2016-05-18 2016-05-18 Outpatient KANDI DavisP OIP [id number] 10:22:00 23:59:00 [facility] 2016-05-18 2016-05-18 Outpatient Ryan, MHOIP MHOIP [id number] 10:22:00 23:59:00 Casey Ruiz 2015-08-05 2015-08-05 Outpatient Sarah, Latia [facility] [id number] 17:05:00 17:42:00 Benjamin 2015-08-05 2015-08-05 Outpatient Sarah, Latia [facility] [id number] 17:05:00 17:42:00 Alexander 2015-07-01 2015-07-01 Outpatient Kelvin, [place] [id number] 08:00:00 18:10:00 Alexandre [facility] 2015-07-01 2015-07-01 Outpatient Kelvin, [facility] SE [id number] 08:00:00 18:10:00 Alexandre Thomas 2015-06-17 2015-06-17 Outpatient Hejourdanan, [facility] [id number] 11:33:00 13:32:00 Woody Gan 2015-06-17 2015-06-17 Outpatient Hehman, [facility] [id number] 11:33:00 13:32:00 Woody Gan 2014-08-29 2014-08-29 Outpatient Pulliam, [facility] [id number] 14:56:00 19:32:[facility] 2014-[facility]29 Out[facility] Pulliam, [facility] [id number] 14:56:00 19:32:00 Kizzy 00 [facility] Results Test Test Test Results Result Source Description Time Comments Comments Peripheral 2020-06- Pool Sellers MD Justice Block 19 06/29/2020 10:[address] 10:11:47 AMPeripheral Block Patient Location: Pre-opStart Time: 06/29/2020 10:00 AMEnd Time: 06/29/2020 10:10 AMReason for Block: primary anesthetic Performed by: anesthesiologistAnesthesiol ogist: Pool Sellers, MDAuthorized by: Pool Sellers MD Preprocedure: patient identified, IV checked, site and side verified, risks and benefits discussed, procedure verified, surgical consent complete, patient position confirmed, monitors and equipment checked, pre-op evaluation complete, site marked and timeout performed prior to procedure Peripheral Nerve Block: Patient Position: Supine Prep: ChloraPrep and patient draped Monitoring: Blood pressure monitoring, continuous pulse oximetry and heart rateBlock Type: SupraclavicularLaterality: LeftInjection Technique: Single injectionUltrasound documentation: Not savedLocal Infiltration (See MAR for details): LidocaineNeedle: Needle Type: Pajunk Needle Gauge: 21 G Needle Length: 10 cmAssessment: Injection Assessment: Visualized needle/local anesthetic surrounding nerve, needle tip visualized at all times during injection of medication, visualized pertinent vascular structures and nerves, no symptoms of intraneural/intravenous injection and intermittent aspiration during local anesthetic administration Paresthesia Pain: None Heart Rate Change: No Slow Fractionated Injection: Yes Block outcome: No apparent complications, patient comfortable and patient tolerated procedure wellMedications AdministeredRopivacaine 0.5 % PF (mL), 30 mL SARS-CoV-2 (COVID-19) RNA [Presence] in Respiratory sp ecimen by 2020-06-27 03:07:19 AUDRA with probe detection Test Item Value Reference Range Interpretation Comme nts SARS-CoV-2 (COVID-19) RNA [Presence] in Respiratory Not detected No t-Detected specimen by AUDRA with probe detection (test code = 43763-9) XR Chest 2 [id number] 22:08:44Hm Interface, Radiology Results Incoming - 06/26/2020 10:11 PM CDT EXAMINATION: XR CHEST 2 VWCLINICAL HISTORY: 50 years Female Z01.818 Encounter for other preprocedural examination, Pre OP TestingCOMPARISON: 06/01/2020IMPRESSION:1.Right IJ catheter remains in satisfactory position.2.The heart size is normal.3.A nodular opacity is present in the posterior right mid to lower lung zone and most likely represents rounded atelectasis. CT scan of the chest is recommended for further evaluation.4.No evidence of pulmonary edema. Minimal bibasilar volume loss. Small moderate right pleural effusion. Tiny left pleural effusion.5.Regional skeletal structures are within normal limits.[facility]-AB05QAVANuwgidd MethodistEC Pre/Post [id number] 10:43:52 Test Item Value Reference Range Interpretation Comments Ventricular rate (test 89 code = 253) Atrial rate (test code = 89 255) TX interval (test code = 140 266) QRSD interval (test code 96 = 260) QT interval (test code = 388 264) QTC interval (test code 472 = 265) P axis 1 (test code = 66 267) QRS axis 1 (test code = -2 268) T wave axis (test code = 52 270) EKG impression (test Normal sinus code = 273) rhythm-Low voltage QRS-Septal infarct , age undetermined-Abnormal ECG-No previous ECGs available-Electronica lly Signed By Trang Hewitt MD ([id number]) on 06/02/2020 10:43:37 AM Vinh SalesJweyfkoqhVRHV-DoE-5 (COVID-19) RNA [Presence] in Respiratory specimen by AUDRA with probe [id number] 22:54:39 Test Item Value Reference Range Interpretation Comments SARS-CoV-2 (COVID-19) RNA Not detected Not-Detected [Presence] in Respiratory specimen by AUDRA with probe detection (test code = 40335-5) SARS-CoV2/RT-PCR ([facility])2019-10-03 11:15:00 Test Item Value Reference Range Interpretation Comments SARS-COV2/RT-PCR (test Positive Not Detected, AA code = 32243-8) Negative, See external report for linked test SARS-COV-2 PERFORMING [facility] (test code = 95971-0) YEHUDA (test code = YEHUDA) Results are [...] of the Act. Fact Sheet for Healthcare Providers:https://www.Shiftgig/sites/default /files/product/document s/Fact_Sheet_HC_Provide lz_Vmpy_VKYT-QyU-6.pdf Fact Sheet for Healthcare Patients:https://www.Nellix/sites/default/ files/product/documents /Fact_Sheet_Patients_Ly tt_ICLC-ZyK-1.pdf Performing Laboratory:[address] [place] [address] Lab Interpretation Abnormal (test code = 03755-2) [facility])2019-10-03 11:15:00 Test Item Value Reference Range Interpretation Comments SARS-COV2/RT-PCR (test Positive Not Detected, Negative, AA code = 2857402) See external report for linked test SARS-COV-2 PERFORMING LAB [facility] (test code = 8528200) Results are for the detection of SARS-CoV-2 [...] 564(g) of the Act.Fact Sheet for Healthcare Providers:https://www.AccessSportsMedia.com/sites/default/files/product/d ocuments/Cflh_Mzugx_WF_Imjtshsqx_Qzef_JQDG-QlO-6.pdfFact Sheet for Healthcare Patients:https://www.Nellix/sites/default/files/product/documents/Fact_Sheet_Patients_Lyra_SARS-CoV -2.pdfPerforming Laboratory:[facility] [place] [address].[place], [place] [id number] 18:35:004.7[facility] [id number] 18:35:004.7[facility] HermannBlood Gas+Lytes+Glu+Ca+Hgb+Hct+[id number] 12:22:00 Test Item Value Reference Range Interpretation [...] 0.7 mmol/L (test code = BGLA) HEMOGLOBIN [id number] 08:30:00 Test Item Value Reference Range Interpretation Comments HEMOGLOBIN A1C ([facility]) (test code = 5.3 % 4.3-6.1 368) POCT-GLUCOSE [id number] 07:28:00 Test Item Value Reference Range Interpretation Comments POC-GLUCOSE METER 78 mg/dL 70-110 TESTED AT [facility] 67[facility] (test code = [place] [address] 1538) POCT-GLUCOSE [id number] 20:51:00 Test Item Value Reference Range Interpretation Comments POC-GLUCOSE METER 49 mg/dL 70-110 L Will Repea t Test/TESTED ([facility] (test code = AT [facility] [address] [place] 1538) [facility] 7703 0 POCT-GLUCOSE [id number] 18:20:00 Test Item Value Reference Range Interpretation Comments POC-GLUCOSE METER 188 mg/dL 70-110 H TESTED AT [facility] [address] ([facility]) (test code = TANISHA JUST[place] 1538) [address] T4, [id number] 17:50:00 Test Item Value Reference Range Interpretation Comments FREE T4 (BEAKER) (test code = 655) 1.31 ng/dL 0.70-1.48 SEDIMENTATION [id number] 17:38:00 Test Item Value Reference Range Interpretation Comments SEDIMENTATION RATE, ERYTHROCYTE 103 mm/HR 0-20 H (AKER) (test code = 766) TSH/FREE T4 IF [id number] 16:25:00 Test Item Value Reference Range Interpretation Comments THYROID STIMULATING HORMONE 0.30 uIU/mL 0.35-4.94 L ([facility]) (test code = 772) CREATINE KINASE (CK), TOTAL AND [id number] 16:08:00 Test Item Value Reference Range Interpretation Comments CREATINE KINASE TOTAL (BEAKER) 111 U/L 29-200 (test code = 380) CREATINE KINASE-MB (BEAKER) (test 4.8 ng/mL 0.0-6.6 code = 750) CREATINE KINASE-MB INDEX ([facility]) 4.3 % (test code = 395) CK-MB Reference Range:<6.7 Normal6.7-10.0 Borderline>10.0 AbnormalTROPONIN [id number] 16:08:00 Test Item Value Reference Range Interpretation [...] 395) CK-MB Reference Range:<6.7 Normal6.7-10.0 Borderline>10.0 AbnormalTROPONIN [id number] 16:07:00 Test Item Value Reference Range Interpretation [...] failure, acidosis, acute neurological disease, and persistent tachyarrhythmia.[id number] 15:59:00 Test Item Value Reference Range Interpretation Comments PHOSPHORUS (BEAKER) (test code = 5.1 mg/dL 2.3-4.7 H 604) LIPID [id number] 15:59:00 Test Item Value Reference Range Interpretation [...] 130-159 High 160-189 Very High >=190HEPATIC FUNCTION [id number] 15:59:00 Test Item Value Reference Range Interpretation [...] code = 10 U/L 6-55 347) C-REACTIVE [id number] 15:59:00 Test Item Value Reference Range Interpretation Comments C-REACTIVE PROTEIN (BEAKER) (test 0.52 mg/dL 0.00-0.50 H code = 676) BASIC METABOLIC [id number] 15:59:00 Test Item Value Reference Range Interpretation [...] PATIEN TS. CBC W/PLT COUNT & AUTO [id number] 15:16:00 Test Item Value Reference Range Interpretation [...] PERCENT (BEAKER) (test code = 2801) PROTHROMBIN TIME/[id number] 15:08:00 Test Item Value Reference Range Interpretation Comments PROTIME (BEAKER) (test code = 16.0 seconds 11.7-14.7 H 759) INR (BEAKER) (test code = 370) 1.3 <=5.9 RECOMMENDED COUMADIN/WARFARIN INR THERAPY RANGESSTANDARD DOSE: 2.0 - 3.0 Includes: PROPHYLAXIS forvenous thrombosis, systemic embolization; TREATMENT for venous thrombosis and/or pulmonary embolus.HIGH RISK: Target INR is 2.5-3.5 for patients with mechanical heart valves.POCT-GLUCOSE [id number] 12:04:00 Test Item Value Reference Range Interpretation Comments POC-GLUCOSE METER 187 mg/dL 70-110 H TESTED AT [place] [address] ([facility]) (test code = TANISHA Hutson [facility] 1538) [address] POCT-GLUCOSE [id number] 09:11:00 Test Item Value Reference Range Interpretation Comments POC-GLUCOSE METER 83 mg/dL 70-110 TESTED AT [place] [address] ([facility]) (test [facility] = [facility] [address] 1538) MR, BRAIN, WITHOUT [id number] 00:47:00PT started dialysis 07/12/2015Reason for exam:->Sudden onset [...] MDReport Verified Date/Time: 02/23/2017 00:47:16 Reading Location: [facility] B1 C013Y CT Body Reading Room AFB CULTURE + [id number] 07:45:00 Test Item Value Reference Range Interpretation Comments CULTURE (BEAKER) (test No acid-fast bacilli code = 1095) isolated in 42 days AFB SMEAR (BEAKER) No acid fast bacilli (test code = 994) seen AFB CULTURE + [id number] 07:45:00 Test Item Value Reference Range Interpretation Comments CULTURE (BEAKER) (test No acid-fast bacilli code = 1095) isolated in 42 days AFB SMEAR (BEAKER) No acid fast bacilli (test code = 994) seen FUNGUS CULTURE + [id number] 18:17:00 Test Item Value Reference Range Interpretation Comments CULTURE (BEAKER) (test No fungus isolated in code = 1095) 28 days FUNGUS SMEAR (BEAKER) No fungi seen (test code = 1406) FUNGUS CULTURE + [id number] 18:17:00 Test Item Value Reference Range Interpretation Comments CULTURE (BEAKER) (test No fungus isolated in code = 1095) 28 days FUNGUS SMEAR (BEAKER) No fungi seen (test code = 1406) AFB CULTURE + [id number] 14:52:00 Test Item Value Reference Range Interpretation Comments CULTURE (BEAKER) (test No acid-fast bacilli code = 1095) isolated in 42 days AFB SMEAR (BEAKER) No acid fast bacilli (test code = 994) seen AB SPECIFICITY CLASS [id number] 10:13:00 Test Item Value Reference Range Interpretation Comments DATE OF SERUM (BEAKER) (test code = 968202 0581) SERUM # (BEAKER) (test code = 2290) [id number] AB SPECIFICITY CLASS I (BEAKER) (test code = 2429) AB SPECIFICITY CLASS [id number] 10:13:00 Test Item Value Reference Range Interpretation Comments DATE OF SERUM (BEAKER) 382270 (test code = 2289) SERUM # (BEAKER) (test 421248 code = 2290) AB SPECIFICITY CLASS II See Scanned Report (BEAKER) (test code = 2430) HERPES VIRUS ANTIBODY, [id number] 14:21:00 Test Item Value Reference Range Interpretation Comments HERPES VIRUS IGM Negative HSV 1 IGM = NEGHSV 2 (BEAKER) (test code = IGM = NEG 1808) TOXOPLASMA GONDII ANTIBODY, [id number] 14:21:00 Test Item Value Reference Range Interpretation Comments TOXOPLASMA IGM ANTIBODY (BEAKER) Negative (test code = 742) FLOW PRA CLASS I AND [id number] 15:15:00 Test Item Value Reference Range Interpretation Comments DATE OF SERUM (BEAKER) 547774 (test code = 2289) SERUM # (BEAKER) (test 387315 code = 2290) FLOW PRA CLASS I AND II See Scanned Report (test code = 2421) VARICELLA ZOSTER ANTIBODY, [id number] 14:59:00 Test Item Value Reference Range Interpretation Comments VARICELLA ZOSTER IGG (AL) (BEAKER) 5.8 Al (test code = 3197) VARICELLA ZOSTER RESULT INTERPRETATIONS: <=0.8 Al Nonreactive: Presumed non-immune to VZV 0.9-1.0 Al Equivocal >=1.1 Al Reactive: Presumed immune to VZVCT, [id number] 14:16:00PT started dialysis 07/12/2015Addendum BeginsREPORT STATUS:A The original report incorrectly states that the procedure was performed with intravenous contrast. In fact, the procedure was performed without intravenous contrast. Signed: Joann Diaz MDReport Verified Date/Time: 01/13/2017 14:16:42 ReadingLocation: [facility] B1 C013X Ortho Consult Reading RoomAddendum EndsFINAL [...] Diazeport Verified Date/Time: 01/06/2017 23:49:19 Reading Location: [facility] U115IEbdjcxa Reading Room CT, CHEST, WITHOUT [id number] 14:16:00PT started dialysis 07/12/2015Addendum BeginsREPORT STATUS:A The original report incorrectly states that the procedure was performed with intravenous contrast. In fact, the procedure was performed without intravenous contrast. Signed: Joann Diazeport Verified Date/Time: 01/13/2017 14:16:42 ReadingLocation: [facility] C013X Ortho Consult Reading RoomAddendum EndsFINAL REPORT [...] MDReport Verified Date/Time: 01/06/2017 23:49:19 Reading Location: [facility] Z320CBtednrr [facility] MET[facility]OL[facility] [id number] 14:06:00 Test Item Value Reference Range Interpretation [...] S NOT APPLICABLE FOR DIALYSIS PATIEN TS. [id number] 14:04:00 Test Item Value Reference Range Interpretation Comments MAGNESIUM (BEAKER) (test code = 1.7 mg/dL 1.6-2.6 627) PROTHROMBIN [id number] 13:52:00 Test Item Value Reference Range Interpretation [...] % 34.1-44.9 L 411) MEAN CORPUSCULAR VOLUME ([facility]) 91.2 fL 79.4-94.8 (test code = 753) MEAN CORPUSCULAR HEMOGLOBIN 28.7 pg 25.6-32.2 ([facility]) (test code = 751) MEAN CORPUSCULAR HEMOGLOBIN CONC 31.5 GM/DL 32.2-35.5 L ([facility]) (test code = 752) RED CELL DISTRIBUTION WIDTH 14.2 % 11.7-14.4 ([facility]) (test code = 412) PLATELET COUNT ([facility]) (test 187 K/CU MM 150-450 code = 756) MEAN PLATELET VOLUME ([facility]) 11.2 fL 9.4-12.3 (test code = 754) NUCLEATED RED BLOOD CELLS 0 /100 WBC 0-0 ([facility]) (test code = 413) POCT-GLUCOSE [id number] 07:33:00 Test Item Value Reference Range Interpretation Comments POC-GLUCOSE METER 82 mg/dL 70-110 TESTED AT [place] [address] ([facility]) (test code = TANISHA Hutson [facility] [address] 1538) POCT-GLUCOSE [id number] 22:10:00 Test Item Value Reference Range Interpretation Comments POC-GLUCOSE METER 118 mg/dL 70-110 H TESTED AT [place] [address] ([facility]) (test code = TANISHA Htuson [facility] 1538) [address] POCT-GLUCOSE [id number] 16:58:00 Test Item Value Reference Range Interpretation Comments POC-GLUCOSE METER 102 mg/dL 70-110 TESTED AT [place] [address] ([facility]) (test code = TANISHA Hutson [facility] 1538) [address] POCT-GLUCOSE [id number] 07:43:00 Test Item Value Reference Range Interpretation Comments POC-GLUCOSE METER 93 mg/dL 70-110 TESTED AT [place] [address] ([facility]) (test code = TANISHA Hutson [facility] [address] 1538) POCT-GLUCOSE [id number] 21:58:00 Test Item Value Reference Range Interpretation Comments POC-GLUCOSE METER 130 mg/dL 70-110 H TESTED AT [place] [address] ([facility]) (test code = TANISHA Hutson [facility] 1538) [address] POCT-GLUCOSE [id number] 17:59:00 Test Item Value Reference Range Interpretation Comments POC-GLUCOSE METER 144 mg/dL 70-110 H TESTED AT [facility] 6720 ([facility]) (test code = TANISHA Hutson [place] 1538) [address] CYTOMEGALOVIRUS ANTIBODY, [id number] 15:45:00 Test Item Value Reference Range Interpretation Comments CYTOMEGALOVIRUS IGG ANTIBODY Negative ([facility]) (test code = 790) CYTOMEGALOVIRUS ANTIBODY, [id number] 15:45:00 Test Item Value Reference Range Interpretation Comments CYTOMEGALOVIRUS IGM ANTIBODY Negative ([facility]) (test code = 816) HERPES VIRUS ANTIBODY, [id number] 15:45:00 Test Item Value Reference Range Interpretation Comments HERPES VIRUS IGG Positive HSV 1 IGG = POSHSV 2 ([facility]) (test code = IGG = POS 1807) EBV-VCA ANTIBODY, [id number] 15:45:00 Test Item Value Reference Range Interpretation Comments GIO-NICK VCA IGG ([facility]) (test Positive code = 983) EBV-VCA ANTIBODY, [id number] 15:45:00 Test Item Value Reference Range Interpretation Comments GIO-NICK VCA IGM ([facility]) (test Negative code = 984) TOXOPLASMA GONDII ANTIBODY, [id number] 15:45:00 Test Item Value Reference Range Interpretation Comments TOXOPLASMA GONDII IGG ([facility]) (test Negative code = 419) POCT-GLUCOSE [id number] 14:27:00 Test Item Value Reference Range Interpretation Comments POC-GLUCOSE METER 108 mg/dL 70-110 TESTED AT [facility] 6720 ([facility]) (test code = [facility] Caryl [facility] 1538) [address] IMMUNOFIXATION ELECTROPHORESIS (YOANNA)2017-01-11 13:52:00 Test Item Value Reference Range Interpretation Comments IMMUNOGLOBULIN G (IGG) 2035 mg/dL 540-1822 H ([facility]) (test code = 427) IMMUNOGLOBULIN A (IGA) 148 mg/dL 63-484 ([facility]) (test code = 639) IMMUNOGLOBULIN M (IGM) 125 mg/dL 22-293 ([facility]) (test code = 638) SERUM YOANNA ID ([facility]) Polyclonal (test code = 1814) distribution of immunoglobulins; no monoclonal proteins detected. Small band seen on SPEP, therefore, is likely due to presence of fibrinogen in the sample. [id number]-HBDOCNMLJHA-[address] [place] [address], (BEAKER) (test code = (electronic 6661) signature) Do not collect, specimen already in lab.BASIC METABOLIC [id number] 09:44:00 Test Item Value Reference Range Interpretation [...] S NOT APPLICABLE FOR DIALYSIS PATIEN TS. [id number] 09:20:00 Test Item Value Reference Range Interpretation Comments MAGNESIUM (BEAKER) (test code = 1.8 mg/dL 1.6-2.6 627) POCT-GLUCOSE [id number] 09:18:00 Test Item Value Reference Range Interpretation Comments POC-GLUCOSE METER 100 mg/dL 70-110 TESTED AT [facility] 6720 (BEAKER) (test code = T[place]ISHA [place] 1538) [address] PROTHROMBIN [id number] 08:51:00 Test Item Value Reference Range Interpretation Comments PROTIME (BEAKER) (test code = 15.1 seconds 11.7-14.7 H 759) INR (BEAKER) (test code = 370) 1.2 <=5.9 RECOMMENDED COUMADIN/WARFARIN INR THERAPY RANGESSTANDARD DOSE: 2.0 - 3.0 Includes: PROPHYLAXIS forvenous thrombosis, systemic embolization; TREATMENT for venous thrombosis and/or pulmonary embolus.HIGH RISK: Target INR is 2.5-3.5 for patients with mechanical heart valves.While on warfarin.HGB/HCT (H&H) - STAT [id number] 08:44:00 Test Item Value Reference Range Interpretation Comments HEMOGLOBIN ([facility]) (test code = 8.0 g/dL 12.0-15.0 L 410) HEMATOCRIT ([facility]) (test code = 24.0 % 36.0-45.0 L 411) POCT-GLUCOSE [id number] 23:05:00 Test Item Value Reference Range Interpretation Comments POC-GLUCOSE METER 108 mg/dL 70-110 TESTED AT [place] [address] ([facility]) (test code = [facility] Caryl [facility] 1538) [address] POCT-GLUCOSE [id number] 17:36:00 Test Item Value Reference Range Interpretation Comments POC-GLUCOSE METER 133 mg/dL 70-110 H TESTED AT [place] [address] ([facility]) (test code = [facility] Caryl [place] 1538) [address] POCT-GLUCOSE [id number] 12:31:00 Test Item Value Reference Range Interpretation Comments POC-GLUCOSE METER 115 mg/dL 70-110 H TESTED AT [place] [address] ([facility]) (test code = [facility] Caryl [facility] 1538) [address] FUNGUS CULTURE + [id number] 12:30:00 Test Item Value Reference Range Interpretation Comments CULTURE ([facility]) (test No fungus isolated in code = 1095) 28 days FUNGUS SMEAR ([facility]) No fungi seen (test code = 1406) POCT-GLUCOSE [id number] 08:30:00 Test Item Value Reference Range Interpretation Comments POC-GLUCOSE METER 99 mg/dL 70-110 TESTED AT [place] [address] ([facility]) (test code = [facility] Caryl [facility] [address] 1538) POCT-GLUCOSE [id number] 00:16:00 Test Item Value Reference Range Interpretation Comments POC-GLUCOSE METER 106 mg/dL 70-110 TESTED AT [place] [address] ([facility]) (test code = [facility] [place] 1538) [address] POCT-GLUCOSE [id number] 22:21:00 Test Item Value Reference Range Interpretation Comments POC-GLUCOSE METER 88 mg/dL 70-110 TESTED AT [place] [address] ([facility]) (test code = [facility] [address] 1538) POCT-GLUCOSE [id number] 14:36:00 Test Item Value Reference Range Interpretation Comments POC-GLUCOSE METER 119 mg/dL 70-110 H TESTED AT [facility] 6720 (BEAKER) (test code = TANISHA BYRD 1538) [address] PROTEIN ELECTROPHORESIS, [id number] 13:56:00 Test Item Value Reference Range Interpretation [...] monoclonal gammopathy. Refer to serum immunofixation electrophoresis. [id number] Anne Yen MD (BEAKER) (test code (electronic signature) = 2616) PROTEIN TOTAL SERUM, 5.7 gm/dL 6.0-8.3 L SPEP (BEAKER) (test code = 7310) Do not collect, specimen already in lab.POTASSIUM-STAT [id number] 10:33:00 Test Item Value Reference Range Interpretation Comments POTASSIUM (BEAKER) (test code = 4.9 meq/L 3.6-5.5 379) GLUCOSE-STAT [id number] 10:33:00 Test Item Value Reference Range Interpretation Comments GLUCOSE RANDOM (BEAKER) (test code 129 mg/dL 70-110 H = 652) HGB/HCT (H&H) - STAT [id number] 10:33:00 Test Item Value Reference Range Interpretation Comments HEMOGLOBIN (BEAKER) (test code = 12.3 g/dL 12.0-15.0 410) HEMATOCRIT (BEAKER) (test code = 36.0 % 36.0-45.0 411) HGB/HCT (H&H) - STAT [id number] 07:59:00 Test Item Value Reference Range Interpretation Comments HEMOGLOBIN (BEAKER) (test code = 8.5 g/dL 12.0-15.0 L 410) HEMATOCRIT (BEAKER) (test code = 25.0 % 36.0-45.0 L 411) BASIC METABOLIC [id number] 07:16:00 Test Item Value Reference Range Interpretation [...] S NOT APPLICABLE FOR DIALYSIS PATIEN TS. [id number] 07:10:00 Test Item Value Reference Range Interpretation Comments MAGNESIUM (BEAKER) (test code = 2.0 mg/dL 1.6-2.6 627) POCT-GLUCOSE [id number] 06:47:00 Test Item Value Reference Range Interpretation Comments POC-GLUCOSE METER 113 mg/dL 70-110 H TESTED AT [facility] 6720 ([facility]) (test code = TANISHA BYRD 1538) [address] [id number] 02:25:00 Test Item Value Reference Range Interpretation Comments PARTIAL THROMBOPLASTIN TIME 67.7 seconds 22.5-36.0 H (BEAKER) (test code = 760) POCT-GLUCOSE [id number] 18:18:00 Test Item Value Reference Range Interpretation Comments POC-GLUCOSE METER 138 mg/dL 70-110 H TESTED AT [facility] 6720 [facility] (test code = TANISHA [place] 1538) [address] [id number] 17:24:00 Test Item Value Reference Range Interpretation Comments PROTIME (MARYANNE) (test code = 15.2 seconds 11.7-14.7 H 759) INR ([facility]) (test code = 370) 1.2 <=5.9 PARTIAL THROMBOPLASTIN TIME 37.0 seconds 22.5-36.0 H (AKER) (test code = 760) RECOMMENDED COUMADIN/WARFARIN INR THERAPY RANGESSTANDARD DOSE: 2.0 - 3.0 Includes: PROPHYLAXIS forvenous thrombosis, systemic embolization; TREATMENT for venous thrombosis and/or pulmonary embolus.HIGH RISK: Target INR is 2.5-3.5 for patients with mechanical heart valves.ANAEROBIC [id number] 14:23:00 Test Item Value Reference Range Interpretation Comments CULTURE ([facility]) (test No anaerobes isolated code = 1095) ANAEROBIC [id number] 14:23:00 Test Item Value Reference Range Interpretation Comments CULTURE ([facility]) (test No anaerobes isolated code = 1095) POCT-GLUCOSE [id number] 12:45:00 Test Item Value Reference Range Interpretation Comments POC-GLUCOSE METER 126 mg/dL 70-110 H TESTED AT [facility] 6720 ([facility]) (test code = TANISHA JUST[place] 1538) [address] SURGICALLY OBTAINED CULTURE + GRAM [id number] 11:41:00 Test Item Value Reference Range Interpretation Comments CULTURE A From Broth Only Same ([facility]) (test organism has been code = 1095) isolated from cultures(s) of the same body site and collection date . Repeat identifi cation and susceptibil ity testing perform ed only after consultat ion with the [facility] microbiology laboratory.Refe r to previous cultur e ofCoagulase neg ative Staphylococcus GRAM STAIN <1+ WBCs RESULT ([facility]) (test code = 1123) GRAM STAIN No organisms seen RESULT ([facility]) (test code = 264357) SURGICALLY OBTAINED CULTURE + GRAM [id number] 11:38:00 Test Item Value Reference Interpretation Comments Range CULTURE ([facility]) (test code = 1095) Clindamycin (test code [...] No organisms (BEAKER) (test code = seen 630997) [id number] 10:08:00 Test Item Value Reference Range Interpretation Comments PROTIME (BEAKER) (test code = 14.7 seconds 11.7-14.7 759) INR (BEAKER) (test code = 370) 1.2 <=5.9 PARTIAL THROMBOPLASTIN TIME 40.2 seconds 22.5-36.0 H (AKER) (test code = 760) RECOMMENDED COUMADIN/WARFARIN INR THERAPY RANGESSTANDARD DOSE: 2.0 - 3.0 Includes: PROPHYLAXIS forvenous thrombosis, systemic embolization; TREATMENT for venous thrombosis and/or pulmonary embolus.HIGH RISK: Target INR is 2.5-3.5 for patients with mechanical heart valves.POCT-GLUCOSE [id number] 08:24:00 Test Item Value Reference Range Interpretation Comments POC-GLUCOSE METER 97 mg/dL 70-110 TESTED AT [facility] 6720 ([facility]) (test code = TANISHA Hutson [facility] [address] 1538) [id number] 07:39:00 Test Item Value Reference Range Interpretation Comments PARTIAL THROMBOPLASTIN TIME 192.0 seconds 22.5-36.0 HH (AKER) (test code = 760) [id number] 07:37:00 Test Item Value Reference Range Interpretation Comments MAGNESIUM (BEAKER) (test code = 1.7 mg/dL 1.6-2.6 627) BASIC METABOLIC [id number] 07:37:00 Test Item Value Reference Range Interpretation [...] S NOT APPLICABLE FOR DIALYSIS PATIEN TS. [id number] 23:25:00 Test Item Value Reference Range Interpretation Comments PARTIAL THROMBOPLASTIN TIME 97.8 seconds 22.5-36.0 H (BEAKER) (test code = 760) POCT-GLUCOSE [id number] 22:52:00 Test Item Value Reference Range Interpretation Comments POC-GLUCOSE METER 98 mg/dL 70-110 TESTED AT [place] [address] ([facility]) (test code = [facility] [address] 1538) POCT-GLUCOSE [id number] 17:43:00 Test Item Value Reference Range Interpretation Comments POC-GLUCOSE METER 86 mg/dL 70-110 TESTED AT [place] [address] ([facility]) (test code = [facility] [address] 1538) [id number] 15:59:00 Test Item Value Reference Range Interpretation Comments PARTIAL THROMBOPLASTIN TIME 62.8 seconds 22.5-36.0 H ([facility]) (test code = 760) POCT-GLUCOSE [id number] 14:50:00 Test Item Value Reference Range Interpretation Comments POC-GLUCOSE METER 115 mg/dL 70-110 H TESTED AT [facility] 6720 ([facility]) (test code = [facility] 1538) [address] [id number] 14:00:00 Test Item Value Reference Range Interpretation Comments PARTIAL THROMBOPLASTIN TIME 113.6 seconds 22.5-36.0 H ([facility]) (test code = 760) VANCOMYCIN LEVEL, [id number] 13:10:00 Test Item Value Reference Range Interpretation Comments VANCOMYCIN RANDOM ([facility]) (test 33.9 ug/mL code = 523) Reference Range: No NormalsTROPONIN [id number] 12:52:00 Test Item Value Reference Range Interpretation Comments TROPONIN I ([facility]) (test code = 0.09 ng/mL [...] acidosis, acute neurological disease, and persistent tachyarrhythmia.POCT-GLUCOSE [id number] 12:19:00 Test Item Value Reference Range Interpretation Comments POC-GLUCOSE METER 87 mg/dL 70-110 TESTED AT [place] [address] ([facility]) (test code = TANISHA Hutson [facility] [address] 1538) POCT-GLUCOSE [id number] 08:36:00 Test Item Value Reference Range Interpretation Comments POC-GLUCOSE METER 62 mg/dL 70-110 L Notified Caryl Powers MD/TESTED AT ([facility]) (test code = [place] [address] RAJINDER 1538) [facility] [address] ANTI-NUCLEAR ANTIBODY ([place])2017-01-07 06:33:00 Test Item Value Reference Range Interpretation Comments ANTI-NUCLEAR ANTIBODY ([place]) ([facility]) Positive Negative A (test code = 418) [place] TITER AND [id number] 06:33:00 Test Item Value Reference Range Interpretation Comments [place] TITER ([facility]) (test code = 1541) :640 [place] PATTERN ([facility]) (test code = SSA/RO 1781) TROPONIN [id number] 03:35:00 Test Item Value Reference Range Interpretation Comments TROPONIN I ([facility]) (test code = 0.10 ng/mL 0.00-0.03 H [...] acute neurological disease, and persistent tachyarrhythmia.BASIC METABOLIC [id number] 03:28:00 Test Item Value Reference Range Interpretation [...] S NOT APPLICABLE FOR DIALYSIS PATIEN TS. [id number] 03:27:00 Test Item Value Reference Range Interpretation Comments MAGNESIUM (BEAKER) (test code = 1.9 mg/dL 1.6-2.6 627) [id number] 03:24:00 Test Item Value Reference Range Interpretation Comments PARTIAL THROMBOPLASTIN TIME 111.9 seconds 22.5-36.0 H (BEAKER) (test code = 760) [id number] 00:18:00 Test Item Value Reference Range Interpretation Comments RPR SCREEN (BEAKER) (test code = Nonreactive Nonreactive 420) BLOOD [id number] 00:00:00 Test Item Value Reference Range Interpretation Comments CULTURE (BEAKER) (test No growth in 5 days code = 1095) BLOOD [id number] 00:00:00 Test Item Value Reference Range Interpretation Comments CULTURE (BEAKER) (test No growth in 5 days code = 1095) CT, BRAIN, WITHOUT [id number] 23:31:00PT started dialysis 07/12/2015 FINAL REPORT Clinical [...] Nuno MDReportVerified Date/Time: 01/06/2017 23:31:20 Reading Location: [facility] C013X Ortho Consult Reading Room POCT-GLUCOSE [id number] 22:02:00 Test Item Value Reference Range Interpretation Comments POC-GLUCOSE METER 99 mg/dL 70-110 TESTED AT [facility] 6720 ([facility]) (test code = TANISHA Hutson [facility] [address] 1538) [id number] 18:44:00 Test Item Value Reference Range Interpretation Comments PARTIAL THROMBOPLASTIN TIME 94.9 seconds 22.5-36.0 H ([facility]) (test code = 760) HEPATITIS A ANTIBODY, [id number] 18:03:00 Test Item Value Reference Range Interpretation Comments HEPATITIS A IGG ANTIBODY ([facility]) Reactive Nonreactive A (test code = 2797) HIV-1 ANTIGEN WITH HIV-1/2 [id number] 17:58:00 Test Item Value Reference Range Interpretation Comments HIV-1 ANTIGEN WITH HIV 1\\T\\2 Nonreactive Nonreactive ANTIBODY (2) ([facility]) (test code = 2586) POCT-GLUCOSE [id number] 17:55:00 Test Item Value Reference Range Interpretation Comments POC-GLUCOSE METER 89 mg/dL 70-110 TESTED AT [facility] 6720 (MARYANNE) (test code = [place] [address] 1538) ROSEMARY TUNNELED DIALYSIS CATH [id number] 17:45:00PT started dialysis 07/12/2015Reason for exam:->needs tank terminal gauger HD access, please d/c bradley after PC [...] Physician intra- service time was [address]: Richard. Cco: Rolf. Approach: Right internal jugular vein Estimated [...] needle into the right atrium. A 4 Swazi micropuncture sheath was placed. A subcu taneous tunnel was created in the right anterior chest wall by blunt dissection. A 19 cm 15.5 Swazi Duraflow 2 catheter was brought through the [...] Ramírez Verified Date/Time: 01/06/2017 17:45:51 Reading Location: [address] Ultrasound Reading Room [id number] 17:37:00 Test Item Value Reference Range Interpretation Comments PARTIAL THROMBOPLASTIN TIME > seconds 22.5-36.0 HH (BEAKER) (test code = 760) U/S, RENAL, [id number] 17:29:00PT started dialysis 07/12/2015Reason for exam:->heart transplant [...] in medical renal disease. Signed: Jerrod Ramírez mySBXkolbyBookacoach Verified Date/Time: 01/06/2017 17:29:12 Reading Location: [address] Ultrasound Reading Room TROPONIN [id number] 17:04:00 Test Item Value Reference Range Interpretation [...] failure, acidosis, acute neurological disease, and persistent tachyarrhythmia.[id number] 16:54:00 Test Item Value Reference Range Interpretation Comments FERRITIN (BEAKER) (test code = 361) 216 ng/mL 5-275 VITAMIN D, 94-[id number] 16:48:00 Test Item Value Reference Range Interpretation Comments VITAMIN D 25-OH (BEAKER) (test code 6.4 ng/mL 6.6-49.9 L = 2764) Effective 12/21/2016: Reference Range ChangeNew: 6.6-49.9 ng/mL Previous: 13.0-47.8 ng/mLRecommended Vitamin D Target Range: 30.0-40.0 ng/mLT4, FREE 2017-01-06 16:43:00 Test Item Value Reference Range Interpretation Comments FREE T4 (BEAKER) (test code = 655) 1.56 ng/dL 0.70-1.48 H [id number] 16:43:00 Test Item Value Reference Range Interpretation Comments THYROID STIMULATING HORMONE 0.98 uIU/mL 0.35-4.94 (BEAKER) (test code = 772) [id number] 16:22:00 Test Item Value Reference Range Interpretation Comments TRANSFERRIN (BEAKER) (test code = 122 mg/dL 174-382 L 541) [id number] 16:13:00 Test Item Value Reference Range Interpretation Comments PREALBUMIN (BEAKER) (test code = 14 mg/dL 14-45 586) IRON, [id number] 16:13:00 Test Item Value Reference Range Interpretation Comments IRON (BEAKER) (test code = 547) 23 ug/dL 40-160 L TROPONIN [id number] 15:31:00 Test Item Value Reference Range Interpretation [...] failure, acidosis, acute neurological disease, and persistent tachyarrhythmia.[id number] 15:30:00 Test Item Value Reference Range Interpretation Comments CREATININE (BEAKER) 6.49 mg/dL 0.57-1.25 H (test code = 358) EGFR (BEAKER) (test 8 mL/min/1.73 ESTIMAT ED GFR IS code = 1092) sq m NOT ACCURATE CREATININE CLEARANCE IN PREDICTING GLOMERULAR FILTRATION RATE . ESTIMATED GFR I S NOT APPLICABLE FOR DIALYSIS PATIEN TS. URIC [id number] 15:25:00 Test Item Value Reference Range Interpretation Comments URIC ACID (BEAKER) (test code = 3.3 mg/dL 2.6-7.2 773) LIPID [id number] 15:25:00 Test Item Value Reference Range Interpretation [...] 100-129 Borderline 130-159 High 160-189 Very High >=[id number] 15:25:00 Test Item Value Reference Range Interpretation Comments AMYLASE (BEAKER) (test code = 349) 60 U/L 25-125 GAMMA GLUTAMYL TRANSFERASE (GGT)2017-01-06 15:25:00 Test Item Value Reference Range Interpretation Comments GAMMA GLUTAMYL TRANSFERASE (BEAKER) 15 U/L 9-64 (test code = 364) [id number] 15:25:00 Test Item Value Reference Range Interpretation Comments LIPASE (BEAKER) (test code = 749) 46 U/L 8-78 RETICULOCYTE [id number] 15:07:00 Test Item Value Reference Range Interpretation Comments RETICULOCYTE COUNT PCT (BEAKER) (test 1.2 % 0.5-1.7 code = 575) POCT-GLUCOSE [id number] 09:33:00 Test Item Value Reference Range Interpretation Comments POC-GLUCOSE METER 103 mg/dL 70-110 TESTED AT [place] [address] ([facility]) (test code = TANISHA Hutson [facility] 1538) [address] POCT-GLUCOSE [id number] 06:37:00 Test Item Value Reference Range Interpretation Comments POC-GLUCOSE METER 108 mg/dL 70-110 TESTED AT [place] [address] ([facility]) (test code = TANISHA Hutson [facility] 1538) [address] VANCOMYCIN LEVEL, [id number] 04:30:00 Test Item Value Reference Range Interpretation Comments VANCOMYCIN RANDOM (BEAKER) (test 37.6 ug/mL code = 523) Reference Range: No NormalsTROPONIN [id number] 04:19:00 Test Item Value Reference Range Interpretation [...] acute neurological disease, and persistent tachyarrhythmia.BASIC METABOLIC [id number] 04:12:00 Test Item Value Reference Range Interpretation [...] S NOT APPLICABLE FOR DIALYSIS PATIEN TS. [id number] 04:11:00 Test Item Value Reference Range Interpretation Comments MAGNESIUM (BEAKER) (test code = 1.7 mg/dL 1.6-2.6 627) [id number] 03:57:00 Test Item Value Reference Range Interpretation [...] RED CELL DISTRIBUTION WIDTH 14.3 % 11.7-14.4 (AKER) (test code = 412) PLATELET COUNT ([facility]) (test 150 K/CU MM 150-450 code = 756) MEAN PLATELET VOLUME (AKER) 11.0 fL 9.4-12.3 (test code = 754) NUCLEATED RED BLOOD CELLS 0 /100 WBC 0-0 ([facility]) (test code = 413) TROPONIN [id number] 00:42:00 Test Item Value Reference Range Interpretation Comments TROPONIN I ([facility]) (test code = 0.11 ng/mL 0.00-0.03 H [...] acidosis, acute neurological disease, and persistent tachyarrhythmia.POCT-GLUCOSE [id number] 00:27:00 Test Item Value Reference Range Interpretation Comments POC-GLUCOSE METER 97 mg/dL 70-110 TESTED AT [facility] 6720 ([facility]) (test code = TANISHA Hutson [facility] [address] 1538) [id number] 00:23:00 Test Item Value Reference Range Interpretation Comments PARTIAL THROMBOPLASTIN TIME 34.2 seconds 22.5-36.0 ([facility]) (test code = 760) [id number] 17:16:00 Test Item Value Reference Range Interpretation Comments PARTIAL THROMBOPLASTIN TIME 58.7 seconds 22.5-36.0 H ([facility]) (test code = 760) TISSUE [id number] 16:16:00Surgical Pathology Report Case: [id number] Authorizing Provider: Fabi Parekh MD Collected: 01/04/2017 1055 Ordering Location: [facility] Received: 01/04/2017 1314 PERIOPERATIVE SERVICES Pathologist: Judit Medel MD Specimen: Hernia, Hernia Sac HERNIA SAC, ABDOMINAL, INCISIONAL HERNIA, REPAIR: - FIBROADIPOSE TISSUE AND REACTIVE CHANGS WITH FOREIGN BODY GIANT CELLS, CONSISTENT WITH INCISIONAL HERNIA SAC Signing Pathologist Direct Phone Line: [phone] signed by Judit Medel MD on 01/05/2017 at 4:16 [id number] renal disease, incisional hernia sacHernia sacReceived fresh labeled "hernia", description "hernia sac" is an 8.3 x 7.3 x 1.0 cm, dark-red to corral-white, irregular, rubbery, wrinkled portion of fibromembranoussoft tissue. Sectioning reveals no discrete masses. Weight Shifter sections are submitted in cassette A1. DB/ew Performed.APTT 2017-01-05 14:43:00 Test Item Value Reference Range Interpretation Comments PARTIAL THROMBOPLASTIN TIME 162.1 seconds 22.5-36.0 HH ([facility]) (test code = 760) POCT-GLUCOSE [id number] 13:01:00 Test Item Value Reference Range Interpretation Comments POC-GLUCOSE METER 88 mg/dL 70-110 TESTED AT [place] [address] ([facility]) (test code = [facility] [address] 1538) TROPONIN [id number] 12:59:00 Test Item Value Reference Range Interpretation Comments TROPONIN I ([facility]) (test code = 0.13 ng/mL [...] acidosis, acute neurological disease, and persistent tachyarrhythmia.SPIN/CONCENTRATION [id number] 12:45:00 Test Item Value Reference Range Interpretation Comments CONCENTRATION CHARGED ([facility]) (test Done code = 2657) POCT-GLUCOSE [id number] 09:10:00 Test Item Value Reference Range Interpretation Comments POC-GLUCOSE METER 102 mg/dL 70-110 TESTED AT [facility] 67 ([facility]) (test code = [facility] 1538) [address] CBC W/PLT COUNT & AUTO [id number] 08:49:00 Test Item Value Reference Range Interpretation [...] PERCENT (BEAKER) (test code = 2801) POCT-GLUCOSE [id number] 07:57:00 Test Item Value Reference Range Interpretation Comments POC-GLUCOSE METER 133 mg/dL 70-110 H TESTED AT [facility] 6720 ([facility]) (test code = TANISHA Hutson [facility] 1538) [address] BODY FLUID CULTURE + GRAM [id number] 07:44:00 Test Item Value Reference Range Interpretation Comments [facility] (test code No growth = 1095) GRAM STAIN RESULT ([facility]) <1+ WBCs (test code = 1123) GRAM STAIN RESULT ([facility]) No organisms seen (test code = 02536) POCT-GLUCOSE [id number] 06:05:00 Test Item Value Reference Range Interpretation Comments POC-GLUCOSE METER 63 mg/dL 70-110 L TESTED AT [facility] 6720 ([facility]) (test code = TANISHA Hutson [facility] [address] 1538) VANCOMYCIN LEVEL, [id number] 05:32:00 Test Item Value Reference Range Interpretation Comments VANCOMYCIN RANDOM (BEAKER) (test 31.0 ug/mL code = 523) Reference Range: No NormalsBASIC METABOLIC [id number] 05:24:00 Test Item Value Reference Range Interpretation [...] NOT APPLICABLE FOR DIALYSIS PATIEN TS. TROPONIN [id number] 05:23:00 Test Item Value Reference Range Interpretation [...] failure, acidosis, acute neurological disease, and persistent tachyarrhythmia.[id number] 05:21:00 Test Item Value Reference Range Interpretation Comments MAGNESIUM (BEAKER) (test code = 1.7 mg/dL 1.6-2.6 627) [id number] 05:06:00 Test Item Value Reference Range Interpretation Comments PARTIAL THROMBOPLASTIN TIME 89.4 seconds 22.5-36.0 H (BEAKER) (test code = 760) PROTHROMBIN [id number] 05:04:00 Test Item Value Reference Range Interpretation Comments PROTIME (BEAKER) (test code = 14.6 seconds 11.7-14.7 759) INR (BEAKER) (test code = 370) 1.2 <=5.9 RECOMMENDED COUMADIN/WARFARIN INR THERAPY RANGESSTANDARD DOSE: 2.0 - 3.0 Includes: PROPHYLAXIS forvenous thrombosis, systemic embolization; TREATMENT for venous thrombosis and/or pulmonary embolus.HIGH RISK: Target INR is 2.5-3.5 for patients with mechanical heart valves.TROPONIN [id number] 17:14:00 Test Item Value Reference Range Interpretation [...] failure, acidosis, acute neurological disease, and persistent tachyarrhythmia.[id number] 16:55:00 Test Item Value Reference Range Interpretation Comments GLUCOSE RANDOM (BEAKER) (test code 140 mg/dL 70-105 H = 652) GLUCOSE-STAT [id number] 13:33:00 Test Item Value Reference Range Interpretation Comments GLUCOSE RANDOM (BEAKER) (test code 101 mg/dL 70-110 = 652) POTASSIUM-STAT [id number] 13:33:00 Test Item Value Reference Range Interpretation Comments POTASSIUM (BEAKER) (test code = 4.6 meq/L 3.6-5.5 379) HGB/HCT (H&H) - STAT [id number] 13:33:00 Test Item Value Reference Range Interpretation Comments HEMOGLOBIN (BEAKER) (test code = 13.0 g/dL 12.0-15.0 410) HEMATOCRIT (AKER) (test code = 38.0 % 36.0-45.0 411) BODY FLUID CULTURE + GRAM [id number] 09:05:00 Test Item Value Reference Range Interpretation Comments CULTURE ([facility]) (test code No growth = 1095) GRAM STAIN RESULT ([facility]) <1+ WBCs (test code = 1123) GRAM STAIN RESULT ([facility]) No organisms seen (test code = 36599) POCT-GLUCOSE [id number] 07:58:00 Test Item Value Reference Range Interpretation Comments POC-GLUCOSE METER 81 mg/dL 70-110 TESTED AT [facility] 6720 ([facility]) (test code = [place] [address] 1538) HCG, QUANTITATIVE, [id number] 07:23:00 Test Item Value Reference Range Interpretation Comments GONADOTROPIN, CHORIONIC (HCG) QUANT < mIU/mL 0-10 ([facility]) (test code = 649) Non- Females: <10 mIU/mL Females: Gestation Age Reference Range(mIU/mL) 0.2-1 Week 5-50 1-2 Weeks 50-500 2-3 Weeks 100-5,000 3-4Weeks 500-10,000 4-5 Weeks 1,000-50,000 5-6 Weeks 10,000-100,000 6-8 Weeks 15,000-200,000 2-3 Months 10,000-100,000TROPONIN [id number] 07:19:00 Test Item Value Reference Range Interpretation [...] acute neurological disease, and persistent tachyarrhythmia.BASIC METABOLIC [id number] 07:19:00 Test Item Value Reference Range Interpretation [...] S NOT APPLICABLE FOR DIALYSIS PATIEN TS. [id number] 07:18:00 Test Item Value Reference Range Interpretation Comments MAGNESIUM (BEAKER) (test code = 1.7 mg/dL 1.6-2.6 627) [id number] 06:48:00 Test Item Value Reference Range Interpretation [...] 0-1 PERCENT (AKER) (test code = 2801) POCT-GLUCOSE [id number] 01:01:00 Test Item Value Reference Range Interpretation Comments POC-GLUCOSE METER 96 mg/dL 70-110 TESTED AT [place] [address] ([facility]) (test code = [place] [address] 1538) TROPONIN [id number] 00:46:00 Test Item Value Reference Range Interpretation Comments TROPONIN I ([facility]) (test code = 0.16 ng/mL [...] failure, acidosis, acute neurological disease, and persistent tachyarrhythmia.[id number] 00:21:00 Test Item Value Reference Range Interpretation Comments PROTIME ([facility]) (test code = 15.8 seconds 11.7-14.7 H 759) INR ([facility]) (test code = 370) 1.3 <=5.9 PARTIAL THROMBOPLASTIN TIME 78.1 seconds 22.5-36.0 H (AKER) (test code = 760) RECOMMENDED COUMADIN/WARFARIN INR THERAPY RANGESSTANDARD DOSE: 2.0 - 3.0 Includes: PROPHYLAXIS forvenous thrombosis, systemic embolization; TREATMENT for venous thrombosis and/or pulmonary embolus.HIGH RISK: Target INR is 2.5-3.5 for patients with mechanical heart valves.POCT-GLUCOSE [id number] 21:58:00 Test Item Value Reference Range Interpretation Comments POC-GLUCOSE METER 142 mg/dL 70-110 H TESTED AT [place] [address] ([facility]) (test code = [facility] 1538) [address] VANCOMYCIN LEVEL, [id number] 20:19:00 Test Item Value Reference Range Interpretation Comments VANCOMYCIN RANDOM ([facility]) (test 18.4 ug/mL code = 523) Reference Range: No NormalsTROPONIN [id number] 18:36:00 Test Item Value Reference Range Interpretation Comments TROPONIN I ([facility]) (test code = 0.18 ng/mL [...] acidosis, acute neurological disease, and persistent tachyarrhythmia.POCT-GLUCOSE [id number] 18:30:00 Test Item Value Reference Range Interpretation Comments POC-GLUCOSE METER 119 mg/dL 70-110 H TESTED AT [place] [address] ([facility]) (test code = [facility] 1538) [address] HEMOGLOBIN [id number] 18:21:00 Test Item Value Reference Range Interpretation Comments HEMOGLOBIN A1C ([facility]) (test code = 6.3 % 4.3-6.1 H 368) POCT-GLUCOSE [id number] 18:00:00 Test Item Value Reference Range Interpretation Comments POC-GLUCOSE METER 57 mg/dL 70-110 L TESTED AT [place] [address] ([facility]) (test code = [facility] [address] 1538) [id number] 16:34:00 Test Item Value Reference Range Interpretation Comments PARTIAL THROMBOPLASTIN TIME 99.2 seconds 22.5-36.0 H ([facility]) (test code = 760) [id number] 15:36:00 Test Item Value Reference Range Interpretation Comments PARTIAL THROMBOPLASTIN TIME 123.9 seconds 22.5-36.0 H ([facility]) (test code = 760) [id number] 13:38:00 Test Item Value Reference Range Interpretation Comments PARTIAL THROMBOPLASTIN TIME > seconds 22.5-36.0 HH ([facility]) (test code = 760) TROPONIN [id number] 13:27:00 Test Item Value Reference Range Interpretation Comments TROPONIN I ([facility]) (test code = 0.19 ng/mL [...] acidosis, acute neurological disease, and persistent tachyarrhythmia.POCT-GLUCOSE [id number] 13:25:00 Test Item Value Reference Range Interpretation Comments POC-GLUCOSE METER 120 mg/dL 70-110 H TESTED AT [facility] 67 ([facility]) (test code = [facility] 1538) [address] POCT-GLUCOSE [id number] 09:50:00 Test Item Value Reference Range Interpretation Comments POC-GLUCOSE METER 85 mg/dL 70-110 TESTED AT [place] [address] ([facility]) (test code = [facility] [address] 1538) TROPONIN [id number] 08:31:00 Test Item Value Reference Range Interpretation Comments TROPONIN I ([facility]) (test code = 0.20 ng/mL 0.00-0.03 HH [...] failure, acidosis, acute neurological disease, and persistent tachyarrhythmia.[id number] 03:35:00 Test Item Value Reference Range Interpretation Comments PARTIAL THROMBOPLASTIN TIME 39.1 seconds 22.5-36.0 H ([facility]) (test code = 760) BASIC METABOLIC [id number] 03:34:00 Test Item Value Reference Range Interpretation Comments SODIUM ([facility]) 134 meq/L 136-145 L (test code = 381) POTASSIUM ([facility]) 5.0 meq/L 3.5-5.1 (test code = 379) [...] S NOT APPLICABLE FOR DIALYSIS PATIEN TS. [id number] 03:32:00 Test Item Value Reference Range Interpretation Comments MAGNESIUM (BEAKER) (test code = 1.5 mg/dL 1.6-2.6 L 627) CBC W/PLT COUNT & AUTO [id number] 03:17:00 Test Item Value Reference Range Interpretation [...] PERCENT (BEAKER) (test code = 2801) TROPONIN [id number] 01:22:00 Test Item Value Reference Range Interpretation [...] acidosis, acute neurological disease, and persistent tachyarrhythmia.POCT-GLUCOSE [id number] 00:49:00 Test Item Value Reference Range Interpretation Comments POC-GLUCOSE METER 74 mg/dL 70-110 TESTED AT [facility] 6720 ([facility]) (test code = [place] [address] 1538) TROPONIN [id number] 18:57:00 Test Item Value Reference Range Interpretation [...] acute neurological disease, and persistent tachyarrhythmia.VANCOMYCIN LEVEL, [id number] 18:52:00 Test Item Value Reference Range Interpretation Comments VANCOMYCIN RANDOM (BEAKER) (test 29.2 ug/mL code = 523) Reference Range: No NormalsLACTATE DEHYDROGENASE (LDH)2017-01-02 18:46:00 Test Item Value Reference Range Interpretation Comments LACTATE DEHYDROGENASE (BEAKER) (test 300 U/L 125-220 H code = 635) BODY FLUID CELL COUNT WITH [id number] 18:36:00 Test Item Value Reference Range Interpretation [...] = 2873) RAD, CHEST, 1 VIEW, NON [id number] 18:36:00PT started dialysis 07/12/2015 Reason for exam:->s/p thoraFINAL REPORT Comparison: 01/01/2017 TECHNIQUE: Single view of the chest FINDINGS: Right pleural effusion has decreased. No pneumothorax bilaterally. No other significant change. Signed: Turner Griereport Verified Date/Time: 01/02/2017 18:36:30 Reading Location: [facility] C013W Consult Reading Room PH, BODY [id number] 18:22:00 Test Item Value Reference Range Interpretation Comments PH, BODY FLUID (BEAKER) (test code = 7.80 1530) POCT-GLUCOSE [id number] 18:19:00 Test Item Value Reference Range Interpretation Comments POC-GLUCOSE METER 91 mg/dL 70-110 TESTED AT [facility] 6720 (BEAKER) (test code = [place] [address] 1538) LACTATE DEHYDROGENASE (LDH), BODY [id number] 18:04:00 Test Item Value Reference Range Interpretation [...] = 2585) CREATINE KINASE (CK), TOTAL AND [id number] 13:09:00 Test Item Value Reference Range Interpretation Comments CREATINE KINASE TOTAL (BEAKER) 285 U/L 29-200 H (test code = 380) CREATINE KINASE-MB (BEAKER) (test 15.2 ng/mL 0.0-6.6 H code = 750) CREATINE KINASE-MB INDEX (BEAKER) 5.3 % (test code = 395) CK-MB Reference Range:<6.7 Normal6.7-10.0 Borderline>10.0 AbnormalTROPONIN [id number] 13:09:00 Test Item Value Reference Range Interpretation Comments TROPONIN I ([facility]) (test code = 0.18 ng/mL [...] acidosis, acute neurological disease, and persistent tachyarrhythmia.POCT-GLUCOSE [id number] 12:25:00 Test Item Value Reference Range Interpretation Comments POC-GLUCOSE METER 95 mg/dL 70-110 TESTED AT [place] [address] ([facility]) (test code = TANISHA Hutson [facility] [address] 1538) POCT-GLUCOSE [id number] 11:56:00 Test Item Value Reference Range Interpretation Comments POC-GLUCOSE METER 65 mg/dL 70-110 L Notified Caryl Powers MD/TESTED AT ([facility]) (test code = [place] [address] RAJINDER 1538) [facility] [address] 0 BASIC METABOLIC [id number] 06:05:00 Test Item Value Reference Range Interpretation [...] NOT APPLICABLE FOR DIALYSIS PATIEN TS. TROPONIN [id number] 06:04:00 Test Item Value Reference Range Interpretation [...] failure, acidosis, acute neurological disease, and persistent tachyarrhythmia.[id number] 06:03:00 Test Item Value Reference Range Interpretation Comments MAGNESIUM (BEAKER) (test code = 1.9 mg/dL 1.6-2.6 627) CBC W/PLT COUNT & AUTO [id number] 05:59:00 Test Item Value Reference Range Interpretation [...] PERCENT (BEAKER) (test code = 2801) TROPONIN [id number] 01:42:00 Test Item Value Reference Range Interpretation [...] acute neurological disease, and persistent tachyarrhythmia.BASIC METABOLIC [id number] 01:37:00 Test Item Value Reference Range Interpretation [...] S NOT APPLICABLE FOR DIALYSIS PATIEN TS. [id number] 01:30:00 Test Item Value Reference Range Interpretation Comments MAGNESIUM (BEAKER) (test code = 1.5 mg/dL 1.6-2.6 L 627) POCT-GLUCOSE [id number] 00:03:00 Test Item Value Reference Range Interpretation Comments POC-GLUCOSE METER 76 mg/dL 70-110 TESTED AT [facility] 67 ([facility]) (test code = [facility] [address] 1538) POCT-GLUCOSE [id number] 22:26:00 Test Item Value Reference Range Interpretation Comments POC-GLUCOSE METER 60 mg/dL 70-110 L TESTED AT [place] [address] ([facility]) (test code = [facility] [address] 1538) TROPONIN [id number] 21:46:00 Test Item Value Reference Range Interpretation [...] acute neurological disease, and persistent tachyarrhythmia.BASIC METABOLIC [id number] 21:38:00 Test Item Value Reference Range Interpretation [...] S NOT APPLICABLE FOR DIALYSIS PATIEN TS. [id number] 21:35:00 Test Item Value Reference Range Interpretation Comments MAGNESIUM (BEAKER) (test code = 1.6 mg/dL 1.6-2.6 627) [id number] 21:34:00 Test Item Value Reference Range Interpretation Comments PHOSPHORUS (BEAKER) (test code = 7.7 mg/dL 2.3-4.7 H 604) RAD, CHEST, 1 VIEW, NON [id number] 21:30:00PT started dialysis 07/12/2015Reason for exam:->Line placementShould [...] MDReport Verified Date/Time: 01/01/2017 21:30:48 Reading Location: [facility] C013Y CT Body Reading Room BODY FLUID CELL COUNT WITH [id number] 20:13:00 Test Item Value Reference Range Interpretation [...] Tube (test code = 2873) COMPREHENSIVE METABOLIC [id number] 19:19:00 Test Item Value Reference Range Interpretation [...] PATIEN TS. RAD, CHEST, 1 VIEW, NON [id number] 18:48:00PT started dialysis 07/12/2015 Reason for exam:->s/p left thoracentesis Should this be performed at the bedside?->YesFINAL REPORT Comparison: 01/01/2017 TECHNIQUE: Single view of the chest FINDINGS: Left pleural effusion has decreased. No pneumothorax bilaterally. Interval placement of a right internal jugular catheter. Tip projects in the mid SVC. No other gross change. Signed: Turner Grier MDReport Verified Date/Time: 01/01/2017 18:48:26 Reading Location: [address] Transitional Reading Room POCT-GLUCOSE [id number] 18:23:00 Test Item Value Reference Range Interpretation Comments POC-GLUCOSE METER 79 mg/dL 70-110 TESTED AT [facility] 6720 (BEAKER) (test code = TANISHA Hutson [facility] [address] 1538) [id number] 18:09:00 Test Item Value Reference Range Interpretation Comments AMMONIA (BEAKER) (test 9 mol/L 18-72 L Speci men markedly code = 348) hemolyzed [id number] 18:08:00 Test Item Value Reference Range Interpretation Comments MAGNESIUM (BEAKER) 2.8 mg/dL 1.6-2.6 H Specimen markedly (test code = 627) hemolyzed [id number] 18:08:00 Test Item Value Reference Range Interpretation Comments PHOSPHORUS (BEAKER) 8.1 mg/dL 2.3-4.7 H Specimen markedly (test code = 604) hemolyzed POCT-GLUCOSE [id number] 18:07:00 Test Item Value Reference Range Interpretation Comments POC-GLUCOSE METER 81 mg/dL 70-110 TESTED AT [facility] 6720 ([facility]) (test code = [place] [address] 1538) LACTIC ACID, ARTERIAL, WHOLE [id number] 17:14:00 Test Item Value Reference Range Interpretation Comments LACTATE BLOOD 0.9 mmol/L 0.5-2.2 Specimen sligh tly ARTERIAL (2) ([facility]) hemoly zed (test code = 2874) Effective 07/15/2015: Units/Reference Range ChangeNew: 0.5-2.2 mmol/L Previous: 5-20 mg/[id number] 17:12:00 Test Item Value Reference Range Interpretation Comments PROCALCITONIN ([facility]) (test code 0.72 ng/mL <0.05 H = 3036) SEPSIS RISK (ng/mL)Low: 0.05-0.50Intermediate: 0.51-2.00High: >=2.01TROPONIN [id number] 16:56:00 Test Item Value Reference Range Interpretation Comments TROPONIN I ([facility]) (test code = 0.25 ng/mL 0.00-0.03 HH [...] Reference Range Interpretation Comments CREATINE KINASE TOTAL ([facility]) 662 U/L 29-200 H (test code = 380) CREATINE KINASE-MB ([facility]) (test 17.6 ng/mL 0.0-6.6 H code = 750) CREATINE KINASE-MB INDEX ([facility]) 2.7 % (test code = 395) CK-MB Reference Range:<6.7 Normal6.7-10.0 Borderline>10.0 AbnormalB-TYPE NATRIURETIC FACTOR (BNP)2017-01-01 16:52:00 Test Item Value Reference Range Interpretation Comments B-TYPE NATRIURETIC PEPTIDE 2749 pg/mL 0-100 H (BEAKER) (test code = 700) BLOOD GAS, [id number] 16:50:00 Test Item Value Reference Range Interpretation [...] (BEAKER) (test code = 1819) 21.0 % [id number] 16:46:00 Test Item Value Reference Range Interpretation Comments PHOSPHORUS (BEAKER) 7.9 mg/dL 2.3-4.7 H Specimen markedly (test code = 604) hemolyzed [id number] 16:46:00 Test Item Value Reference Range Interpretation Comments LIPASE (BEAKER) (test code = 749) 38 U/L 8-78 CALCIUM, [id number] 16:46:00 Test Item Value Reference Range Interpretation Comments CALCIUM IONIZED (BEAKER) (test 1.00 mmol/L 1.12-1.27 L code = 698) PH, BLOOD (BEAKER) (test code = 7.36 1810) PROTHROMBIN [id number] 16:43:00 Test Item Value Reference Range Interpretation [...] = 2801) RAD, CHEST, 1 VIEW, NON [id number] 15:22:00PT started dialysis 07/12/2015Post-intubationReason for exam:->sobShould this be performed at the bedside?->YesFINAL REPORT Comparison: 06/07/2016 TECHNIQUE: Single view of the chest FINDINGS: There is a moderate to large left pleural effusion and moderate right pleural effusion with nonspecific adjacent airspace disease. Cardiac silhouette is obscured. No gross pneumothorax. No acute skeletal abnormality. Signed: Turner Grier MDReport Verified Date/Time: 01/01/2017 15:22:20 Reading Location: [address] Transitional Reading Room BODY FLUID CULTURE + GRAM [id number] 11:17:00 Test Item Value Reference Range Interpretation Comments CULTURE (BEAKER) (test code No growth = 1095) GRAM STAIN RESULT (BEAKER) <1+ WBCs (test code = 1123) GRAM STAIN RESULT (BEAKER) No organisms seen (test code = 39005) [id number] 15:47:00Medical Cytology Report Case: [id number] Authorizing Provider: Verena Carrero MD Collected: 12/12/2016 1540 Ordering Location: [facility] Laboratory Received: 12/13/2016 1002 Pathologist: Gokul [place] MD Specimen: Pl eural, Right RIGHT PLEURAL FLUID (CYTOSPINS): - NEGATIVE FOR MALIGNANT CELLS Signing Pathologist Direct Phone Line: [phone] signed by Gokul [place] MD on 12/13/2016 at 3:47 PMReactive mesothelialcells are noted.15090Xuztj pleural effusion; CHFRIGHT PLEURAL FLUID4 cytospins prepared from 200 ml yellow fluidCollected: [id number]: [id number] [facility], Departmentof Pathology, [address] [place] [address], [facility], [facility] of [facility], [address] [place] [address], LUCIWLDD GRAVITY, BODY [id number] 15:33:00 Test Item Value Reference Range Interpretation Comments SP GRAVITY MISCELLANEOUS (BEAKER) (test 1.019 code = 557) Reference Range: No NormalsBODY FLUID [id number] 11:49:00 Test Item Value Reference Range Interpretation Comments CRYSTALS, BODY FLUID No crystals seen. (BEAKER) (test code = 2165) [id number] Anne Yen MD (BEAKER) (test code = (electronic signature) 1642) PH, BODY [id number] 00:24:00 Test Item Value Reference Range Interpretation Comments PH, BODY FLUID (BEAKER) (test code = 7.90 1530) BODY FLUID CELL COUNT WITH [id number] 19:53:00 Test Item Value Reference Range Interpretation [...] Tube (test code = 2873) ALBUMIN, BODY [id number] 19:31:00 Test Item Value Reference Range Interpretation Comments ALBUMIN FLUID (BEAKER) (test code = 0.9 gm/dL 501) Reference Range: No Normals Assay performance has not been validated for this type of specimen.RIGHT THORACENTESIS, PLEURAL FLUIDRIGHT THORACENTESIS, PLEURAL FLUIDRIGHT THORACENTESIS, PLEURAL FLUIDRIGHT THORACENTESIS, PLEURAL FLUIDRIGHT THORACENTESIS, PLEURAL FLUIDRIGHT THORACENTESIS, PLEURAL FLUIDCREATININE, BODY [id number] 19:31:00 Test Item Value Reference Range Interpretation Comments CREATININE FLUID (BEAKER) (test 15.62 mg/dL code = 677) Reference Range: No Normals Assay performance has not been validated for this type of specimen.RIGHT THORACENTESIS, PLEURAL FLUIDRIGHT THORACENTESIS, PLEURAL FLUIDRIGHT THORACENTESIS, PLEURAL FLUIDRIGHT THORACENTESIS, PLEURAL FLUIDRIGHT THORACENTESIS, PLEURAL FLUIDRIGHT THORACENTESIS, PLEURAL FLUIDAMYLASE, BODY [id number] 19:27:00 Test Item Value Reference Range Interpretation Comments AMYLASE FLUID (BEAKER) (test code = 39 U/L 350) Absence of reference range indicates that normals have not been defined.Assay performance has not been validated for this type of specimen.RIGHT THORACENTESIS, PLEURAL FLUIDRIGHT THORACENTESIS, PLEURALFLUIDRIGHT THORACENTESIS, PLEURAL FLUIDRIGHT THORACENTESIS, PLEURAL FLUIDRIGHT THORACENTESIS, PLEURAL FLUIDRIGHT THORACENTESIS, PLEURAL FLUIDLACTATE DEHYDROGENASE (LDH), BODY [id number] 19:27:00 Test Item Value Reference Range Interpretation Comments LACTATE DEHYDROGENASE FLUID (BEAKER) 113 U/L (test code = 634) Absence of reference range indicates that normals have not been defined.Assay performance has not been validated for this type of specimen.RIGHT THORACENTESIS, PLEURAL FLUIDRIGHT THORACENTESIS, PLEURALFLUIDRIGHT THORACENTESIS, PLEURAL FLUIDRIGHT THORACENTESIS, PLEURAL FLUIDRIGHT THORACENTESIS, PLEURAL FLUIDRIGHT THORACENTESIS, PLEURAL FLUIDPROTEIN, BODY [id number] 19:27:00 Test Item Value Reference Range Interpretation Comments PROTEIN FLUID (BEAKER) (test code = 2.1 g/dL 579) Absence of reference range indicates that normals have not been defined.Assay performance has not been validated for this type of specimen.RIGHT THORACENTESIS, PLEURAL FLUIDRIGHT THORACENTESIS, PLEURALFLUIDRIGHT THORACENTESIS, PLEURAL FLUIDRIGHT THORACENTESIS, PLEURAL FLUIDRIGHT THORACENTESIS, PLEURAL FLUIDRIGHT THORACENTESIS, PLEURAL FLUIDGLUCOSE, BODY [id number] 19:27:00 Test Item Value Reference Range Interpretation Comments GLUCOSE, BODY FLUID (BEAKER) (test 172 mg/dL code = 1528) Absence of reference range indicates that normals have not been defined.Assay performance has not been validated for this type of specimen.RIGHT THORACENTESIS, PLEURAL FLUIDRIGHT THORACENTESIS, PLEURALFLUIDRIGHT THORACENTESIS, PLEURAL FLUIDRIGHT THORACENTESIS, PLEURAL FLUIDRIGHT THORACENTESIS, PLEURAL FLUIDRIGHT THORACENTESIS, PLEURAL FLUIDAFB CULTURE + [id number] 18:17:00 Test Item Value Reference Range Interpretation Comments CULTURE (BEAKER) (test No acid-fast bacilli code = 1095) isolated in 42 days AFB SMEAR (BEAKER) No acid fast bacilli (test code = 994) seen FUNGUS CULTURE + [id number] 19:24:00 Test Item Value Reference Range Interpretation Comments CULTURE (BEAKER) (test No fungus isolated in code = 1095) 28 days FUNGUS SMEAR (BEAKER) No fungi seen (test code = 1406) BLOOD [id number] 08:20:00 Test Item Value Reference Range Interpretation Comments CULTURE (BEAKER) (test No growth in 5 days code = 1095) BLOOD [id number] 08:13:00 Test Item Value Reference Range Interpretation Comments CULTURE (BEAKER) (test No growth in 5 days code = 1095) POCT-GLUCOSE [id number] 08:25:00 Test Item Value Reference Range Interpretation Comments POC-GLUCOSE METER 244 mg/dL 70-110 H TESTED AT [facility] 6720 (BEAKER) (test code = [place] 1538) [address] BASIC METABOLIC [id number] 05:31:00 Test Item Value Reference Range Interpretation [...] S NOT APPLICABLE FOR DIALYSIS PATIEN TS. [id number] 05:27:00 Test Item Value Reference Range Interpretation [...] 0-0 (BEAKER) (test code = 413) 0.00POCT-GLUCOSE [id number] 00:54:00 Test Item Value Reference Range Interpretation Comments POC-GLUCOSE METER 124 mg/dL 70-110 H TESTED AT [place] [address] ([facility]) (test code = [facility] Caryl [facility] 1538) [address] POCT-GLUCOSE [id number] 17:10:00 Test Item Value Reference Range Interpretation Comments POC-GLUCOSE METER 146 mg/dL 70-110 H TESTED AT [place] [address] ([facility]) (test code = [facility] Caryl [facility] 1538) [address] BODY FLUID CULTURE + GRAM [id number] 15:37:00 Test Item Value Reference Range Interpretation Comments CULTURE (BEAKER) (test code No growth = 1095) GRAM STAIN RESULT ([facility]) No WBCs (test code = 1123) GRAM STAIN RESULT ([facility]) No organisms seen (test code = 35522) PERITONEAL DIALYSIS EFFLUENT [id number] 15:25:00 Test Item Value Reference Range Interpretation Comments CULTURE (BEAKER) (test code = 1095) No growth POCT-GLUCOSE [id number] 12:03:00 Test Item Value Reference Range Interpretation Comments POC-GLUCOSE METER 170 mg/dL 70-110 H TESTED AT [place] [address] ([facility]) (test code = [facility] 1538) [address] HEPATITIS C PCR, [id number] 09:44:00 Test Item Value Reference Range Interpretation Comments HCV NUMERIC RESULT ([facility]) 286211 IU/mL <15 H (test code = 2700) This test uses a Real-Time Polymerase Chain Reaction (RT-PCR) methodology and was performed using SHELLY Ampliprep/SHELLY TaqMan HCV test kit version 2.0 ([employer]).Reportable range for this assay is 15 - 100,000,000 IU per mL (1.18 - 8.00 Log IU/mL).POCT-GLUCOSE [id number] 08:07:00 Test Item Value Reference Range Interpretation Comments POC-GLUCOSE METER 183 mg/dL 70-110 H TESTED AT [place] [address] ([facility]) (test code = [facility] 1538) [address] CBC (HEMOGRAM ONLY)2016-06-08 06:53:00 Test Item Value Reference Range Interpretation Comments WHITE BLOOD CELL COUNT ([facility]) 6.2 K/ L 4.0-10.0 (test [...] (BEAKER) (test code = 413) 0.00BASIC METABOLIC [id number] 05:44:00 Test Item Value Reference Range Interpretation [...] S NOT APPLICABLE FOR DIALYSIS PATIEN TS. [id number] 05:41:00 Test Item Value Reference Range Interpretation Comments MAGNESIUM (BEAKER) (test code = 2.3 mg/dL 1.6-2.6 627) POCT-GLUCOSE [id number] 20:59:00 Test Item Value Reference Range Interpretation Comments POC-GLUCOSE METER 105 mg/dL 70-110 TESTED AT [place] [address] ([facility]) (test code = [facility] 1538) [address] POCT-GLUCOSE [id number] 17:58:00 Test Item Value Reference Range Interpretation Comments POC-GLUCOSE METER 129 mg/dL 70-110 H TESTED AT [place] [address] ([facility]) (test code = [facility] 1538) [address] POCT-GLUCOSE [id number] 17:58:00 Test Item Value Reference Range Interpretation Comments POC-GLUCOSE METER 138 mg/dL 70-110 H TESTED AT [place] [address] ([facility]) (test code = [facility] 1538) [address] ANTI-NUCLEAR ANTIBODY (MILTON)2016-06-07 14:51:00 Test Item Value Reference Range Interpretation Comments ANTI-NUCLEAR ANTIBODY ([place]) (AKER) Negative Negative (test code = 418) [id number] 09:26:00 Test Item Value Reference Range Interpretation Comments PHOSPHORUS (BEAKER) (test code = 7.8 mg/dL 2.3-4.7 H 604) POCT-GLUCOSE [id number] 08:18:00 Test Item Value Reference Range Interpretation Comments POC-GLUCOSE METER 140 mg/dL 70-110 H TESTED AT [place] [address] ([facility]) (test code = [facility] 1538) [address] CBC (HEMOGRAM ONLY)2016-06-07 07:53:00 Test Item Value Reference Range Interpretation Comments WHITE BLOOD CELL COUNT (AKER) 5.1 K/ L 4.0-10.0 (test code = 775) RED BLOOD CELL COUNT (BEAKER) 3.19 M/ L 4.00-5.00 L (test code = 761) HEMOGLOBIN (BEAKER) (test code = 9.2 GM/DL 12.0-15.0 L 410) HEMATOCRIT (AKER) (test code = 28.0 % 36.0-45.0 L [...] (BEAKER) (test code = 413) 0.00BASIC METABOLIC [id number] 07:30:00 Test Item Value Reference Range Interpretation [...] S NOT APPLICABLE FOR DIALYSIS PATIEN TS. [id number] 07:29:00 Test Item Value Reference Range Interpretation Comments MAGNESIUM (BEAKER) (test code = 1.7 mg/dL 1.6-2.6 627) VANCOMYCIN LEVEL, [id number] 07:28:00 Test Item Value Reference Range Interpretation Comments VANCOMYCIN RANDOM (BEAKER) (test 18.5 ug/mL code = 523) Reference Range: No NormalsPOCT-GLUCOSE [id number] 21:54:00 Test Item Value Reference Range Interpretation Comments POC-GLUCOSE METER 112 mg/dL 70-110 H TESTED AT [place] [address] ([facility]) (test code = TANISHA [place] 1538) [address] [id number] 19:10:00 Test Item Value Reference Range Interpretation Comments ACTIVATED CLOTTING TIME 337 sec TEST ED AT [place] [address] ([facility]) (test code = TANISHA [place] 441) [address] [id number] 16:26:00 Test Item Value Reference Range Interpretation Comments PARTIAL THROMBOPLASTIN TIME 83.0 seconds 22.5-36.0 H ([facility]) (test code = 760) HEPATIC FUNCTION [id number] 14:54:00 Test Item Value Reference Range Interpretation Comments TOTAL PROTEIN (AKER) (test code = 6.6 gm/dL 6.0-8.3 770) ALBUMIN ([facility]) (test code = 1145) 2.4 g/dL 3.5-5.0 L BILIRUBIN TOTAL (BEAKER) (test code 0.2 mg/dL 0.2-1.2 = 377) BILIRUBIN DIRECT (AKER) (test 0.1 mg/dL 0.1-0.5 code = 706) ALKALINE PHOSPHATASE (BEAKER) (test 100 U/L 40-150 code = 346) AST (SGOT) (BEAKER) (test code = 18 U/L 5-34 353) ALT (SGPT) (BEAKER) (test code = 18 U/L 6-55 347) [id number] 13:30:00 Test Item Value Reference Range Interpretation Comments FERRITIN (BEAKER) (test code = 361) 343 ng/mL 5-275 H Effective 01/28/2014: Reference Range ChangeNew: Male 5-275 Previous: Male 22-322 Female 5-275 Female 75-825LAEQ-EWPYWKW [id number] 13:01:00 Test Item Value Reference Range Interpretation Comments POC-GLUCOSE METER 121 mg/dL 70-110 H TESTED AT [place] [address] ([facility]) (test code = TANISHA [place] 1538) [address] HEPATITIS C [id number] 11:01:00 Test Item Value Reference Range Interpretation Comments HEPATITIS C ANTIBODY (BEAKER) (test Reactive Nonreactive A code = 367) HEPATITIS B SURFACE [id number] 10:32:00 Test Item Value Reference Range Interpretation Comments HEPATITIS B SURFACE ANTIGEN (2) Nonreactive Nonreactive (BEAKER) (test code = 2585) HEPATITIS B SURFACE [id number] 10:32:00 Test Item Value Reference Range Interpretation Comments HEPATITIS B SURFACE ANTIBODY 71.3 mIU/mL <8.0 H (BEAKER) (test code = 647) HEPATITIS A ANTIBODY, [id number] 10:32:00 Test Item Value Reference Range Interpretation Comments HEPATITIS A IGM ANTIBODY (BEAKER) Nonreactive Nonreactive (test code = 498) HEPATITIS B CORE ANTIBODY, [id number] 10:32:00 Test Item Value Reference Range Interpretation Comments HEPATITIS B CORE TOTAL ANTIBODY Nonreactive Nonreactive (BEAKER) (test code = 497) LACTATE DEHYDROGENASE (LDH), BODY [id number] 10:24:00 Test Item Value Reference Range Interpretation [...] % 20-55 (test code = 2590) PROTEIN, [id number] 09:36:00 Test Item Value Reference Range Interpretation Comments TOTAL PROTEIN (BEAKER) (test code = 6.5 gm/dL 6.0-8.3 770) LACTATE DEHYDROGENASE (LDH)2016-06-06 09:36:00 Test Item Value Reference Range Interpretation Comments LACTATE DEHYDROGENASE (BEAKER) (test 248 U/L 125-220 H code = 635) [id number] 09:32:00 Test Item Value Reference Range Interpretation Comments PARTIAL THROMBOPLASTIN TIME 72.0 seconds 22.5-36.0 H (BEAKER) (test code = 760) Prior to initiating heparinPROTHROMBIN [id number] 09:30:00 Test Item Value Reference Range Interpretation [...] 0-0 (BEAKER) (test code = 413) PLATELET [id number] 09:15:00 Test Item Value Reference Range Interpretation Comments PLATELET COUNT (BEAKER) (test 185 K/CU MM 150-430 code = 756) POCT-GLUCOSE [id number] 08:01:00 Test Item Value Reference Range Interpretation Comments POC-GLUCOSE METER 119 mg/dL 70-110 H TESTED AT [facility] 6720 (BEAKER) (test code = [place] 1538) [address] [id number] 04:10:00 Test Item Value Reference Range Interpretation Comments MAGNESIUM (BEAKER) (test code = 1.8 mg/dL 1.6-2.6 627) BASIC METABOLIC [id number] 04:10:00 Test Item Value Reference Range Interpretation [...] S NOT APPLICABLE FOR DIALYSIS PATIEN TS. [id number] 04:09:00 Test Item Value Reference Range Interpretation [...] 0-0 (BEAKER) (test code = 413) 0.00POCT-GLUCOSE [id number] 00:10:00 Test Item Value Reference Range Interpretation Comments POC-GLUCOSE METER 235 mg/dL 70-110 H TESTED AT [facility] 6720 (BEAKER) (test code = [place] 1538) [address] GRAM [id number] 23:45:00 Test Item Value Reference Range Interpretation Comments GRAM STAIN RESULT (BEAKER) <1+ WBCs (test code = 1123) GRAM STAIN RESULT (BEAKER) No organisms seen (test code = 95547) BODY FLUID CELL COUNT WITH [id number] 20:12:00 Test Item Value Reference Range Interpretation [...] FLUID (BEAKER) EDTA Tube (test code = 5333) BODY FLUID CELL COUNT WITH [id number] 19:33:00 Test Item Value Reference Range Interpretation [...] Tube (test code = 2873) PROTEIN, BODY [id number] 19:01:00 Test Item Value Reference Range Interpretation [...] FLUID (BEAKER) (test code = 7.73 1530) [id number] 18:22:00 Test Item Value Reference Range Interpretation Comments PARTIAL THROMBOPLASTIN TIME 36.7 seconds 22.5-36.0 H (MARYANNE) (test code = 760) PROTHROMBIN [id number] 18:20:00 Test Item Value Reference Range Interpretation Comments PROTIME (MARYANNE) (test code = 15.3 seconds 11.7-14.7 H 759) INR (MARYANNE) (test code = 370) 1.2 <=5.9 RECOMMENDED COUMADIN/WARFARIN INR THERAPY RANGESSTANDARD DOSE: 2.0 - 3.0 Includes: PROPHYLAXIS forvenous thrombosis, systemic embolization; TREATMENT for venous thrombosis and/or pulmonary embolus.HIGH RISK: Target INR is 2.5-3.5 for patients with mechanical heart valves.POCT-GLUCOSE [id number] 18:04:00 Test Item Value Reference Range Interpretation Comments POC-GLUCOSE METER 182 mg/dL 70-110 H TESTED AT [facility] 6720 (MARYANNE) (test code = T[place] 1538) [address] CREATINE KINASE (CK), TOTAL AND [id number] 16:32:00 Test Item Value Reference Range Interpretation Comments CREATINE KINASE TOTAL (MARYANNE) 247 U/L 29-200 H (test code = 380) CREATINE KINASE-MB (MARYANNE) (test 8.4 ng/mL 0.0-6.6 H code = 750) CREATINE KINASE-MB INDEX (MARYANNE) 3.4 % (test code = 395) Effective 01/28/2014: CK-MB Reference Range ChangeNew: 0.0-6.6 Previous: 0.0-4.9CK-MB Reference Range:<6.7 Normal6.7-10.0 Borderline>10.0 AbnormalTROPONIN [id number] 16:32:00 Test Item Value Reference Range Interpretation Comments TROPONIN I (MARYANNE) (test code = 0.06 ng/mL 0.00-0.03 H [...] acute neurological disease, and persistent tachyarrhythmia.BASIC METABOLIC [id number] 16:31:00 Test Item Value Reference Range Interpretation [...] S NOT APPLICABLE FOR DIALYSIS PATIEN TS. [id number] 16:26:00 Test Item Value Reference Range Interpretation Comments PHOSPHORUS (BEAKER) (test code = 8.1 mg/dL 2.3-4.7 H 604) [id number] 16:26:00 Test Item Value Reference Range Interpretation Comments MAGNESIUM (BEAKER) (test code = 1.9 mg/dL 1.6-2.6 627) HEPATIC FUNCTION [id number] 16:26:00 Test Item Value Reference Range Interpretation [...] 6-55 347) CBC W/PLT COUNT & AUTO [id number] 16:07:00 Test Item Value Reference Range Interpretation [...] code = 417) 0.00LACTIC ACID, VENOUS, WHOLE [id number] 16:06:00 Test Item Value Reference Range Interpretation Comments LACTATE BLOOD VENOUS (2) (BEAKER) 1.5 mmol/L 0.5-2.2 (test code = 2872) Effective 07/15/2015: Units/Reference Range ChangeNew: 0.5-2.2 mmol/L Previous: 5-20 mg/dLBLOOD GAS, [id number] 15:57:00 Test Item Value Reference Range Interpretation [...] (test code = 1819) 21.0 % POCT-GLUCOSE [id number] 12:45:00 Test Item Value Reference Range Interpretation Comments POC-GLUCOSE METER 201 mg/dL 70-110 H TESTED AT [facility] 6720 (BEAKER) (test code = [place] 1538) [address] POCT-GLUCOSE [id number] 08:26:00 Test Item Value Reference Range Interpretation Comments POC-GLUCOSE METER 181 mg/dL 70-110 H TESTED AT [facility] 6720 (BEAKER) (test code = [place] 1538) [address] [id number] 07:00:00 Test Item Value Reference Range Interpretation Comments FERRITIN (BEAKER) (test code = 361) 337 ng/mL 5-275 H Effective 01/28/2014: Reference Range ChangeNew: Male 5-275 Previous: Male 22-322 Female 5-275 Female [id number] 06:20:00 Test Item Value Reference Range Interpretation Comments MAGNESIUM (BEAKER) (test code = 1.8 mg/dL 1.6-2.6 627) BASIC METABOLIC [id number] 06:20:00 Test Item Value Reference Range Interpretation [...] = 2590) CBC W/PLT COUNT & AUTO [id number] 06:00:00 Test Item Value Reference Range Interpretation [...] L 0.00-0.20 (test code = 417) 0.00POCT-GLUCOSE [id number] 17:21:00 Test Item Value Reference Range Interpretation Comments POC-GLUCOSE METER 196 mg/dL 70-110 H TESTED AT [facility] 6720 (BEAKER) (test code = TANISHA Hutson [facility] 1538) [address] POCT-GLUCOSE [id number] 12:54:00 Test Item Value Reference Range Interpretation Comments POC-GLUCOSE METER 190 mg/dL 70-110 H TESTED AT [facility] 6720 (BEAKER) (test code = TANISHA Hutson [facility] 1538) [address] HEMOGLOBIN AND [id number] 11:25:00 Test Item Value Reference Range Interpretation Comments HEMOGLOBIN (BEAKER) (test code = 9.1 GM/DL 12.0-15.0 L 410) HEMATOCRIT (BEAKER) (test code = 27.2 % 36.0-45.0 L 411) POCT-GLUCOSE [id number] 07:54:00 Test Item Value Reference Range Interpretation Comments POC-GLUCOSE METER 116 mg/dL 70-110 H TEST[facility] AT [place] [address] [facility] (test code = [facility] 1538) [address] [id number] 05:00:00 Test Item Value Reference Range Interpretation Comments PHOSPHORUS (BEAKER) (test code = 8.0 mg/dL 2.3-4.7 H 604) BASIC METABOLIC [id number] 01:32:00 Test Item Value Reference Range Interpretation [...] PATIEN TS. CBC W/PLT COUNT & AUTO [id number] 01:18:00 Test Item Value Reference Range Interpretation [...] L 0.00-0.20 (test code = 417) 0.00POCT-GLUCOSE [id number] 22:11:00 Test Item Value Reference Range Interpretation Comments POC-GLUCOSE METER 200 mg/dL 70-110 H TESTED AT [facility] 6720 (BEAKER) (test code = [place] 1538) [address] POCT-GLUCOSE [id number] 18:17:00 Test Item Value Reference Range Interpretation Comments POC-GLUCOSE METER 206 mg/dL 70-110 H TESTED AT [facility] 6720 (BEAKER) (test code = TANISHA [place] 1538) [address] [id number] 17:39:00 Test Item Value Reference Range Interpretation Comments POTASSIUM (BEAKER) (test code = 4.7 meq/L 3.5-5.1 379) BASIC METABOLIC [id number] 11:55:00 Test Item Value Reference Range Interpretation [...] S NOT APPLICABLE FOR DIALYSIS PATIEN TS. [id number] 11:42:00 Test Item Value Reference Range Interpretation [...] K/ L 0.00-0.20 (test code = 417) [id number] 11:36:000.1[facility] KtcdzjoVUZGSGSXPV2091-57-26 11:36:008.0[facility] WdntrujKKMGPWKKOG6958-45-06 11:36:0019.2[facility] [id number] 11:36:0069.5[facility] KaavsfkWROUSHQTNB6061-69-58 11:36:00 2.3[facility] [id number] 11:36:00 Test Item Value Reference Range Interpretation Comments PTT (test code = PTT) 35.1 s 22.9-35.8 [facility] TukildsGBVZTOFHJX8172-05-04 11:36:001.09[facility] 2015-07-01 11:36:00 Test Item Value Reference Range Interpretation Comments PT (test code = PT) 14.4 s 12.0-14.7 [facility] RdzxtsvJSODZRGTIA2558-28-21 11:36:009.3[facility] 2015-[facility]-01 11:36:003.21[facility] OvoadusXBYQIQEJSF3404-81-14 11:36:006.3[facility] DzekzqdJAACPOQNVQ2403-48-80 11:36:0088.4[facility] AungrvpDFYJJWACNY6594-20-52 11:36:0028.4[facility] KlhqtezSEJFOFEBYV8465-88-38 11:36:42244Pnerggjn Rodessa RJOIUNSXAJ4670-23-42 11:36:0014.9[facility] KloffkxUGYRMOUWJY8125-73-71 11:36:00 32.7[facility] NjfncjoDJWVDEPBGJ3676-46-83 11:36:00 Test Item Value Reference Range Interpretation Comments MCH (test code = MCH) 28.9 pg 27.0-31.0 [facility] PrkkrtlLUXDBEKJTH1744-55-84 11:36:008.9[facility] HermannELECTROLYTES 2015-07-01 11:36:68620Owjtxcup SdzbwzdCFRCCCMKMLWT3037-52-56 11:36:0019[facility] VfmamzdSPWLLYIJTIKK1781-21-05 11:36:008.5[facility] WlvrurpSVZHHXWYAZOO6782-31-72 11:36:83712Qodboozi WfxbipwEWOYXOXIAWCY4868-42-65 11:36:99942Bjaiypte Yovani BJAKLLAIERYT3039-39-52 11:36:004.6[facility] WpxsfoaNSSQQARIJWPY8245-01-68 11:36:0050[facility] WcwbxboWSVRECHDTVBV7531-55-91 11:36:008.31[facility] Rodessa ADFGBINKMGKN4440-06-00 11:36:006[facility] BppugxkPOHPGRATXVOT9400-70-77 11:36:00 14.6[facility] DslbifkYLSXHJHJDS5020-33-88 11:36:001.2[facility]annHEMATOLOGY 2015-07-01 11:36:001.0[facility] CxtndjjOMDCVCACOP3125-17-13 11:36:004.4[facility] YuqxcblXSSMDJBBKU0440-00-43 11:36:000.5[facility] IfksbqlTEEPFYCMUN1354-87-17 11:36:000.1[facility] TpkyujvHGWYUQATFP7873-19-40 11:36:000.1[facility] Y[facility]ani ZMZEQYNYOT4945-36-25 11:36:008.0[facility] AakvsuzWGUTXFGGOT2577-65-38 11:36:00 19.2[facility] FdbtueqAHZJCIWJPS3542-59-68 11:36:0069.5[facility]annHEMATOLOGY 2015-07-01 11:36:002.3[facility] LmhtrdxHNKIOKMRNC9681-47-30 11:36:00 Test Item Value Reference Range Interpretation Comments PTT (test code = PTT) 35.1 s 22.9-35.8 [facility] BawomcgLUIYCCCQHL9043-80-56 11:36:001.09[facility]annHEMATOLOGY 2015-07-01 11:36:00 Test Item Value Reference Range Interpretation Comments PT (test code = PT) 14.4 s 12.0-14.7 [facility] OnzcsurMMPVVHCVQL8728-72-78 11:36:009.3[facility]annHEMATOLOGY 2015-07-01 11:36:003.21[facility] XvbjlnaUTJFAHJSRW8757-46-31 11:36:006.3[facility] ShpqkhmJUVDOMGEDQ2716-09-70 11:36:0088.4[facility] JjenmjgKWBMRVAWUT9650-66-06 11:36:0028.4[facility] PvqrdnyLTBOGZTWTO0062-47-34 11:36:91846Jxjpilok Yovani WTZMLPFTIM7073-77-52 11:36:0014.9[facility] NribegpXFINLVFQFU2630-52-99 11:36:00 32.7[facility] TjfizacKASIYBSZJF8527-11-35 11:36:00 Test Item Value Reference Range Interpretation Comments MCH (test code = MCH) 28.9 pg 27.0-31.0 [facility] QhrkdcsLIVGBSBNYX5234-30-07 11:36:008.9[facility] HermannELECTROLYTES 2015-07-01 11:36:35245Hyzxzwpk CscquucFWRVAVQZTDGH4438-60-70 11:36:0019[facility] NwirhoyNGLPRQUPKMUM9663-61-68 11:36:008.5[facility] PacpfzbJQXMZREBBZMN3568-93-56 11:36:47488Wlxqbgjb EgvceyiFIVDAXNUJIZI2989-64-35 11:36:83067Mtxsjicw Yovani EPPGROFRSWME5886-06-81 11:36:004.6[facility] QtclgwcAAZDXSPZWTOK9771-30-95 11:36:0050[facility] HfrwiueVMRPOTJTFQEV1719-95-97 11:36:008.31[facility] Yovani MSNVPZYWAMUN0501-13-37 11:36:006[facility] MnyoqbvVNXUHRWHQAYN0456-97-11 11:36:00 14.6[facility] PbsdvtgVQAGSWIWSQ9103-92-03 11:36:001.2[facility]annHEMATOLOGY 2015-07-01 11:36:001.0[facility] DmpxpujZZEUSOMAQI0044-82-54 11:36:004.4[facility] NchqxxhMNWAMKLJVB5944-31-91 11:36:000.5[facility] SmtprqjDVLWXEWEIQ1937-04-63 11:36:000.1[facility] HermannCHEM RDOUP7091-57-75 17:02:35753Ehwknmbg HermannCHEM LRREG1615-43-06 17:02:0021[facility] HermannCHEM IIMYR6919-00-22 17:02:42686 [facility]annCHEM DWRGX1816-73-70 17:02:007.50[facility]annCHEM PANEL 2015-06-17 17:02:0052[facility] VglusidDXRVJTNNSI1092-09-15 17:02:000.4[facility] BoakbwfNAOQWKXXDR3990-27-29 17:02:000.0[facility] TdzbxbfSYWHPPUZPG8726-90-17 17:02:000.1[facility] EiarpaqZNJZZFTBIA1559-86-90 17:02:0027.3[facility] Rodessa SFREBQFBVT1767-11-15 17:02:0065.3[facility] YeswdtiXFWOZKLMXH7734-76-56 17:02:00 4.4[facility] FogtkqoQJOADJFIAL0613-15-71 17:02:000.5[facility]annHEMATOLOGY 2015-06-17 17:02:001.3[facility] MivanrmQOHYGSJQYE4966-94-55 17:02:005.6[facility] QhhweofPYYJAQTVHR6193-32-74 17:02:001.9[facility] JnbpfhzTYLPVLJJIG8343-80-32 17:02:0028.8[facility] WwubjroNZVVCSCJMM8006-48-71 17:02:009.3[facility] Yovani MBIXSTHHLS2993-52-09 17:02:003.24[facility] UhgtfpmYXBDQAUHGR8407-73-22 17:02:00 Test Item Value Reference Range Interpretation Comments MCH (test code = MCH) 28.8 pg 27.0-31.0 [facility] JucwcyhWNZOHPLKCP9879-20-72 17:02:0088.8[facility] HermannHEMATOLOGY 2015-06-17 17:02:10523Wmtpduvw PrmtrhfZGMOKZLFAO2657-44-89 17:02:0015.2[facility] MdmxwlhPKHLYYHLRG7001-35-01 17:02:0032.4[facility] EcrneizXXDZSVYYVF4029-81-31 17:02:009.3[facility] AoahwnlDAZHDNUKNG3858-87-58 17:02:006.8[facility]annURINE AND XQLLZ5958-54-61 17:02:00Yellow *NA*(06/17/15 12:02 PM)[facility] JVQSF1780-86-59 17:02:00Clear (06/17/15 12:02 PM)[facility] AIPXV3797-13-03 17:02:00Negative (06/17/15 12:02 PM)[facility] SUKTY1883-06-72 17:02:000.2[facility] VXAWO1431-37-18 17:02:00 Moderate *ABN*(06/17/15 12:02 PM)[facility] ATNNQ2355-02-79 17:02:00Negative (06/17/15 12:02 PM)[facility] MIPKH3057-39-52 17:02:00Negative *NA*(06/17/15 12:02 PM)[facility] MJZHE2381-81-49 17:02:00Negative *NA*(06/17/15 12:02 PM)[facility] GJJPQ1609-40-21 17:02:00 Test Item Value Reference Range Interpretation Comments UA pH (test code = UA pH) 6.5 1 5.0-8.0 [facility] AHADR4359-48-39 17:02:00 Test Item Value Reference Range Interpretation Comments UA Spec Grav (test code = UA Spec 1.020 1 Grav) [facility] ULLX0020-74-73 17:02:00Negative (06/17/15 12:02 PM)[facility]annCARDIAC PBUHSFO0406-05-45 17:02:000.10[facility] HermannCHEM PANEL 2015-06-17 17:02:98501Dadowust HermannCHEM SDLVN4580-62-79 17:02:007[facility]annCHEM UYAAL1690-51-66 17:02:005.4[facility]annCHEM DCXRY2006-38-71 17:02:000.3[facility]annCHEM UZDOH7881-47-63 17:02:0012.1[facility]annCHEM LCOKQ8526-09-34 17:02:007[facility]annCHEM VKJSA8894-92-71 17:02:0045 [facility]annCHEM SEPUE6115-26-12 17:02:001.8[facility] HermannCHEM PANEL 2015-06-17 17:02:0037[facility] HermannCHEM BOOQD7293-37-37 17:02:000.3[facility] HermannCHEM QOOUW9923-02-34 17:02:0084[facility]annCHEM UPPXC6123-46-73 17:02:007.2[facility] HermannCHEM HCKSK4341-95-37 17:02:008.4[facility] HermannCHEM EAPWR0084-13-83 17:02:85374Ruksmwkb HermannCHEM ANJQC3136-47-49 17:02:005.1 [facility]annCHEM ZGAHD9948-96-67 17:02:95014Zgcghokc HermannCHEM PANEL 2015-06-17 17:02:0021[facility] HermannCHEM LITDT2957-98-58 17:02:12063Npbfntvi HermannCHEM NBSBL4556-12-44 17:02:007.50[facility] HermannCHEM YZOIE6544-27-17 17:02:0052[facility] RvdgscfXQZJOCLZGQ4485-33-48 17:02:000.4[facility] Yovani JYIMETVAGU1613-12-55 17:02:000.0[facility] GmsijvhMTVHDZGYCZ7058-18-61 17:02:000.1 [facility] YyptgbtMBJDCKDHSN2129-98-00 17:02:0027.3[facility]annHEMATOLOGY 2015-06-17 17:02:0065.3[facility] QeuaekqNPNKMEGBJE3977-45-08 17:02:004.4[facility] HehdhakPATOJNLBVK7105-45-15 17:02:000.5[facility] PuqupauIOJKBBOAQS1937-41-66 17:02:001.3[facility] CmsusypHQKGNOSAFL2751-12-04 17:02:005.6[facility] Yovani SOFYEITWUG1769-92-01 17:02:001.9[facility] DgtagdhQYSUKKSENO0285-62-95 17:02:00 28.8[facility] VavcdcoTNTVGUOHIH2536-26-85 17:02:009.3[facility]annHEMATOLOGY 2015-06-17 17:02:003.24[facility] RyfufalMWLMCOMRAJ1136-26-97 17:02:00 Test Item Value Reference Range Interpretation Comments MCH (test code = MCH) 28.8 pg 27.0-31.0 [facility] ZfxbwmuYPRPQGEAPL5226-11-08 17:02:0088.8[facility] HermannHEMATOLOGY 2015-06-17 17:02:98370Xlveahwp SpalochZKXFBTQNSH3705-38-61 17:02:0015.2[facility] AzekighDCBOXRSKIW2357-08-64 17:02:0032.4[facility] JhqjyciIZPHUIVEAZ3167-55-93 17:02:009.3[facility] UqatpnwUSLTNIRREP2259-25-02 17:02:006.8[facility]annUR[facility] AND TGHBL8904-64-06 17:02:00Yellow *NA*(06/17/15 12:02 PM)[facility] CZOWM0411-92-38 17:02:00Clear (06/17/15 12:02 PM)[facility] ITPFF5003-49-39 17:02:00Negative (06/17/15 12:02 PM)[facility] FAVWK0270-60-26 17:02:000.2[facility] ZWNOW0883-85-58 17:02:00 Moderate *ABN*(06/17/15 12:02 PM)[facility] UBCHZ6970-55-48 17:02:00Negative (06/17/15 12:02 PM)[facility] YKXXB2045-15-64 17:02:00Negative *NA*(06/17/15 12:02 PM)[facility] YYPMM8072-40-43 17:02:00Negative *NA*(06/17/15 12:02 PM)[facility] JXDJA7956-80-73 17:02:00 Test Item Value Reference Range Interpretation Comments UA pH (test code = UA pH) 6.5 1 5.0-8.0 [facility] KIJGM1628-99-48 17:02:00 Test Item Value Reference Range Interpretation Comments UA Spec Grav (test code = UA Spec 1.020 1 Grav) [facility] SAFH4217-66-44 17:02:00Negative (06/17/15 12:02 PM)[facility]annCARDIAC UGEOJBG3744-59-66 17:02:000.10[facility] HermannCHEM PANEL 2015-06-17 17:02:68714Qfmdjvhl HermannCHEM PLCBA3924-29-33 17:02:007[facility] HermannCHEM VPXDN9999-08-58 17:02:005.4[facility] HermannCHEM SKXIL0328-84-14 17:02:000.3[facility]annCHEM OUOPD2383-06-40 17:02:0012.1[facility] HermannCHEM WNPCP3707-47-04 17:02:007[facility]annCHEM AKXAL5037-70-73 17:02:0045 [facility]annCHEM MEYGX1827-45-34 17:02:001.8[facility] HermannCHEM PANEL 2015-06-17 17:02:0037[facility] HermannCHEM UICLL5698-36-22 17:02:000.3[facility] HermannCHEM IJMAJ6722-89-43 17:02:0084[facility]annCHEM CZMXU2121-28-97 17:02:007.2[facility] HermannCHEM HQLFO3937-59-96 17:02:008.4[facility] HermannCHEM NOTTP6073-95-50 17:02:87897Cmuhaisc HermannCHEM FHRDP3752-99-60 17:02:005.1 [facility]annCHEM RRDEB4472-98-32 21:21:000.4[facility]annCHEM PANEL 2014-08-29 21:21:0018[facility] HermannCHEM HGRFS0161-95-68 21:21:005.0[facility]annCHEM XILQT5316-89-59 21:21:0011.8[facility] HermannCHEM VZLDB0848-26-25 21:21:0049[facility]annCHEM LJNAA5599-26-60 21:21:15467Pofdxnal HermannCHEM HREVZ8586-36-31 21:21:0027[facility] HermannCHEM OCNNF1389-74-85 21:21:001.5 [facility]annCHEM YYPCZ5018-32-13 21:21:0022[facility] HermannCHEM PANEL 2014-08-29 21:21:008.7[facility] HermannCHEM KWBRA6207-84-46 21:21:003.8[facility] HermannCHEM FVTZG7031-79-45 21:21:05672Orqpatgt HermannCHEM LYOVS0086-61-82 21:21:88508Awfyoulz HermannCHEM ICZEV4126-91-54 21:21:0029[facility] HermannCHEM VCZPA9609-37-11 21:21:0061[facility] HermannCHEM DYLCY2563-46-82 21:21:001.9 [facility]annCHEM MQWON7413-62-63 21:21:0039[facility] HermannCHEM PANEL 2014-08-29 21:21:006.9[facility] HermannCHEM BCBBV6900-24-85 21:21:000.3[facility] GjlyxklIHOFJLADHH4278-33-46 21:21:000.6[facility] JxhpowbFOKEHIJNMF2833-03-76 21:21:001.9[facility] JdfapazCWKUWHTOJZ4034-55-48 21:21:000.0[facility] Y[facility]ani SYTYGLLMHY9591-78-18 21:21:000.0[facility] YibiibtJIONHJPWMY1513-85-88 21:21:000.1 [facility] FvsndrcXGZKHZBTVA2914-79-59 21:21:003.8[facility]annHEMATOLOGY 2014-08-29 21:21:000.2[facility] CfixmcpJXXZRBAQLG3850-96-21 21:21:0013.9[facility] NbigrocGPXXMGAJSI6295-37-75 21:21:0084.1[facility] BsheqetVCXHIEFBOC8163-86-96 21:21:0011.8[facility] IvbuvaaGAZESXKQOL9770-54-39 21:21:00 Test Item Value Reference Range Interpretation Comments PTT (test code = PTT) 32.7 s 22.9-35.8 [facility] UkrcjfjDBOKCVUYBO3801-64-00 21:21:00 Test Item Value Reference Range Interpretation Comments PT (test code = PT) 12.4 s 12.0-14.7 [facility] XaluphpLUVEHKKRWM5112-04-15 21:21:000.93[facility]annHEMATOLOGY 2014-08-29 21:21:009.5[facility] GrhrgprDBRCIKVJTO0351-16-50 21:21:0032.4[facility] OvhnwxtHAHXDFVEPG7587-09-34 21:21:0014.2[facility] FmzpdmbLNGARUFVWC7540-96-88 21:21:00970Ntnoiyye KdybzygVUBIUDRLFG0468-05-52 21:21:0087.9[facility] CZIARXTHUL2616-98-81 21:21:0016.5[facility] KolueyhHSFIIIBTYU6858-77-51 21:21:00 4.32[facility] QtyrbyfAQUDSDHZKV9541-05-82 21:21:0012.3[facility]annHEMATOLOGY 2014-08-29 21:21:0037.9[facility] HozbcycOPANSSKQUH4218-67-69 21:21:00 Test Item Value Reference Range Interpretation Comments MCH (test code = MCH) 28.5 pg 27.0-31.0 [facility]annCHEM QFSQW1996-43-81 21:21:000.4[facility] HermannCHEM PANEL 2014-08-29 21:21:0018[facility] HermannCHEM EHFOY5146-96-08 21:21:005.0[facility] HermannCHEM OIVRK3235-62-90 21:21:0011.8[facility] HermannCHEM MLETM7429-99-58 21:21:0049[facility] HermannCHEM SDSSF2735-53-17 21:21:13006Ozroqqoy HermannCHEM UJAKP4662-29-59 21:21:0027[facility] HermannCHEM YIPGN8501-66-78 21:21:001.5 [facility]annCHEM PDEFX9443-48-95 21:21:0022[facility]annCHEM PANEL 2014-08-29 21:21:008.7[facility] HermannCHEM OEBKZ4588-90-74 21:21:003.8[facility] HermannCHEM TTRML3945-75-49 21:21:43290Evhkfszm HermannCHEM BVNME6274-08-41 21:21:47882Wutpepeo HermannCHEM OIIEL8605-91-11 21:21:0029[facility] HermannCHEM MUOXA9777-77-20 21:21:0061[facility] HermannCHEM DLRHF6340-68-06 21:21:001.9 [facility]annCHEM SZEYU3420-73-80 21:21:0039[facility]annCHEM PANEL 2014-08-29 21:21:006.9[facility] HermannCHEM LJQXU0347-96-71 21:21:000.3[facility] BnldhhkGGTGZTZXSZ0312-01-95 21:21:000.6[facility] LzdafrnEWNKNMUOVK3272-70-57 21:21:001.9[facility] GqismytOMSIHNEOZY9777-59-68 21:21:000.0[facility] PIRIBJNZIH7407-40-89 21:21:000.0[facility] ZdfjrfuNBZEXMLTAT9386-60-62 21:21:000.1 [facility] EtavmlaRDODCIHLCV9703-32-75 21:21:003.8[facility]annHEMATOLOGY 2014-08-29 21:21:000.2[facility] KsufbvoMMZHCXJMMH7952-91-27 21:21:0013.9[facility] DvhrwwrHEJJLLNRYZ6939-32-34 21:21:0084.1[facility] GjkgycwUWQWRVYGHO0684-72-74 21:21:0011.8[facility] YyprsvuJOFLUCZAQY5093-14-96 21:21:00 Test Item Value Reference Range Interpretation Comments PTT (test code = PTT) 32.7 s 22.9-35.8 [facility] VuzmqsiXBSUOYFLHA8545-29-61 21:21:00 Test Item Value Reference Range Interpretation Comments PT (test code = PT) 12.4 s 12.0-14.7 [facility] KbujhveOKAEYGIZLL1592-87-97 21:21:000.93[facility]annHEMATOLOGY 2014-08-29 21:21:009.5[facility] DgednobWGPEQCVTKV3375-99-63 21:21:0032.4[facility] IyqfwsvKGKIJGIFPK3894-92-33 21:21:0014.2[facility] HlqjnjkJLAKQHJEGK1042-90-44 21:21:19776Bldtgrlx EghzqqmRAYOGBCMHY7164-01-90 21:21:0087.9[facility] Rodessa DULTZVFOBF0535-20-14 21:21:0016.5[facility] XwszpyoWJNQAZQXHN3217-58-64 21:21:00 4.32[facility] RdckvubBXJWGCGBGC6692-19-85 21:21:0012.3[facility] HermannHEMATOLOGY 2014-08-29 21:21:0037.9[facility] YwkmzmrYHRXCVTMBQ4714-04-79 21:21:00 Test Item Value Reference Range Interpretation Comments MCH (test code = MCH) 28.5 pg 27.0-31.0 [facility]
[2020-09-08 00:30] LABS: Absolute Lymphocytes (CBC) 1.3 K/uL (0.7-4.9); Basophils % 1.2 % (0-1.3); Hematocrit 32.2 % (36.0-45.0); Lymphocytes % 21.3 % (15.3-44.8); MPV 9.8 fL (7.6-11.3); RBC Red Blood Cell Count 3.55 M/uL (3.86-4.86)
[2020-09-08] MEDS ORDERED: ONDANSETRON 4 MG/2 ML VIAL ONE ×2 (00:33→01:50)
[2020-09-08] MEDS ORDERED: MORPHINE 4 MG/ML SYR ONE ×2 (00:33→01:50)
[2020-09-08 00:34] LABS: Protime INR 0.96
[2020-09-08 00:56] LABS: Albumin 3.6 g/dL (3.4-5.0); Bilirubin Direct 0.1 mg/dL (0-0.2); Bilirubin Total 0.3 mg/dL (0.2-1.0); Magnesium 2.4 mg/dL (1.8-2.4); Protein, Total 9.6 g/dL (6.4-8.2); Troponin (Emerg Dept Use Only) 0.02 ng/mL (0.0-0.045)
[2020-09-08 00:57] LABS: Potassium 6.7 mmol/L (3.5-5.1)
--- NOTE | 2020-09-08 01:09 | ER ---
Nurse's Notes [facility] Name: Yamile Brooke Age: 50 yrs Sex: Female : 1970 Arrival Date: 09/08/2020 Time: 00:08 Bed 7 Private MD: Diagnosis: Fever, unspecified-pt not dischaged, documention will continue in [facility] for down time Presentation: 09/08 00:12 Chief complaint: Chief complaint: EMS states: Reports chest pain that started tonight, ea pt reported she was just laying around the house and started having chest pain that radiates to the back. Aspirin 325mg given per EMS. Coronavirus screen: At this time, the client does not indicate any symptoms associated with coronavirus-19. Ebola Screen: No symptoms or risks identified at this time. Initial Sepsis Screen: Does the patient meet any 2 criteria? No. Patient's initial sepsis screen is negative. Does the patient have a suspected source of infection? No. Patient's initial sepsis screen is negative. Risk Assessment: Do you want to hurt yourself or someone else? Patient reports no desire to harm self or others. Onset of symptoms was September 08, 2020. 00:12 Acuity: ARIE 3 ea 00:12 Method Of Arrival: EMS: [facility] ea Historical: - Allergies: 00:12 tramadol; ea - PMHx: 00:12 ADD/ADHD; Anemia; CHF; Dialysis; Tues, Thurs, Sat; ESRD; Hyperlipidemia; Diabetes - ea NIDDM; Hypertension; right arm blood clots; right eye blindness; - PSHx: 00:12 Cholecystectomy; Hysterectomy; D \T\ C; ; ea - Immunization history:: Adult Immunizations up to date. - Social history:: Smoking status: Patient denies any tobacco usage or history of. Screenin:09 Abuse screen: Denies threats or abuse. Nutritional screening: No deficits noted. ea Tuberculosis screening: No symptoms or risk factors identified. Assessment: 00:11 General: Appears in no apparent distress. Behavior is calm, cooperative, appropriate ea for age. Pain: Complains of pain in chest. Neuro: Level of Consciousness is awake, alert, obeys commands, Oriented to person, place, time. Cardiovascular: Patient's skin is warm and dry. Respiratory: Airway is patent Respiratory effort is even, unlabored, Respiratory pattern is regular, symmetrical. Derm: Skin is pink, warm \T\ dry. 00:37 Reassessment: Patient and/or family updated on plan of care and expected duration. Pain ea level reassessed. Patient is alert, oriented x 3, equal unlabored respirations, skin warm/dry/pink. Patient states feeling better. Vital Signs: 00:12 BP 161 / 97; Pulse 99; Resp 18; Temp 97.8; Pulse Ox 99% ; Weight 81.65 kg; Height 5 ft. ea 8 in. (172.72 cm); 00:12 Body Mass Index 27.37 (81.65 kg, 172.72 cm) ea ED Course: 00:08 Patient arrived in ED. em 00:09 Anum Hodge, RN is Primary Nurse. ea 00:11 Patient has correct armband on for positive identification. Bed in low position. Call ea light in reach. Side rails up X2. 00:14 Triage completed. ea 00:16 Gabriel Haider MD is Attending Physician. pkl 00:17 No provider procedures requiring assistance completed. Initial lab(s) drawn, by , ad5 sent to lab. Inserted saline lock: 20 gauge in right antecubital area, using aseptic technique. Blood collected. 00:17 EKG done, by ED staff, reviewed by Gabriel Haider MD. ad5 00:40 XRAY Chest (1 view) In Process Unspecified. EDMS Administered Medications: 00:16 Drug: morphine 4 mg {Note: RASS 0.} Route: IVP; Site: right antecubital; ad5 00:16 Drug: Zofran (Ondansetron) 4 mg Route: IVP; Site: right antecubital; ad5 Outcome: 01:08 Discharge ordered by . em 01:08 Patient left the ED. em Signatures: Dispatcher [employer] EDMS Gabriel Haider MD MD pkRaffi Ronquillo RN RN em Anum Hodge, Maicol Watson RN, ea ad5 Corrections: (The following items were deleted from the chart) 00:18 00:12 Chief complaint: ea ea
[2020-09-08] MEDS ORDERED: MORPHINE 4 MG/ML SYR IV ONE (01:26)
[2020-09-08] MEDS ORDERED: ONDANSETRON 4 MG/2 ML VIAL IV ONE (01:27)
[2020-09-08] MEDS ORDERED: CALCIUM GLUC 10% INJ 4.65 MEQ in NA CHLORIDE 0.9% 100 ML IV ONE (01:34)
[2020-09-08] MEDS ORDERED: D50W 25 GM/50 ML SYRINGE IV ONE ×2 (01:34→02:14)
[2020-09-08] MEDS ORDERED: INSULIN -REGULAR HUMAN 50 UNIT/0.5 ML ML IV ONE (01:35)
[2020-09-08] MEDS ORDERED: INSULIN -REGULAR HUMAN 50 UNIT/0.5 ML ML ONE (02:13)
[2020-09-08] MEDS ORDERED: CALCIUM GLUCONATE 1 GM IVPB 1 GM/50 ML BAG IV ONE (02:14)
[2020-09-08 03:32] LABS: Potassium 6.9 mmol/L (3.5-5.1)
[2020-09-08] MEDS ORDERED: PROMETHAZINE INJ 25 MG/ML AMP ONE (04:37)
[2020-09-08] MEDS ORDERED: NA CHLORIDE 0.9% 50 ML ONE (04:38)
--- NOTE | 2020-09-08 07:04 | RAD REPORT ---
EXAM DESCRIPTION: RAD - Chest Single View - 09/08/2020 12:40 am CLINICAL HISTORY: CHEST PAIN COMPARISON: June 09 TECHNIQUE: AP portable chest image was obtained 09/08/2020 12:40 am . FINDINGS: Right-sided dialysis catheter is in place. Pleural and parenchymal opacification are prese nt at each lung base, worse on the right. The right-sided pleural fluid component measure slightly sm aller than the May comparison. Cardiomegaly remains. Mild vascular engorgement seen. Trachea is midline. No pneumothorax. No acute b griselda abnormality seen. No acute aortic findings suspected. IMPRESSION: CHF/volume overload pattern is present with right greater than left pleural effusions. Pleural fluid is less than seen on the May examination.
[2020-09-08] MEDS ORDERED: HEPARIN 5000 UNIT/ML 1 ML VIAL IV PRN (08:09)
[2020-09-08] MEDS: NIFEDIPINE XL 60 MG TABLET PO SCH ×2 (09:00→21:25)
[2020-09-08] MEDS: ASPIRIN EC 81 MG TAB PO SCH (09:00)
[2020-09-08] MEDS: carvediloL 3.125 MG TAB PO SCH ×3 (09:00→21:14)
[2020-09-08] MEDS ORDERED: ASPIRIN 81 MG CHEWABLE TABLET ONE (09:23)
--- NOTE | 2020-09-08 12:05 | CON ---
The patient is seen in emergency room hold. History Of Present Illness: She presented to the emergency room early this morning with significant shortness of breath with having potassium in the 6.9 range. The patient is due for her dialysis toda y. She normally gets Monday, , Monday dialysis. Has been on dialysis for about 3 years o r so. The patient also has history of diabetes and hypertension. Her reason for dialysis the patien t states is both diabetes and hypertension. The patient has been reasonably stable on dialysis. Has a catheter on the right side that is tunneled. The area looks clean. The patient states that she h ad a little bit of indiscretion on the weekend, eating a lot of francesco, had a lot of grapes. When I asked how many, she says a lot and a lot. She also was drinking fluids and does not make much urine. She presented with volume overload and potassium elevation in the setting of probably some dietary indiscretion and volume overload over the weekend. Her albumin is 3.6. She is otherwise alert and a wake with 2 L of oxygen. O2 sats are 90s. She is not having any discomfort currently. She is able to talk in full sentences, joke around. She is legally blind. She states this is a chronic problem that she has had secondary to her diabetes. She is able to answer questions appropriately. Denies a ny pain currently. Past Medical History: The patient has history of end-stage renal disease, history of diabetes, hyper tension. She has had hysterectomy and cholecystectomy done. She has had history of anemia with quita l disease. She is legally blind. Physical Examination: Vital signs: She is reasonably stable currently with blood pressures in the 127/79 range, before coleman t 161/97. Her O2 sats are 96% on 2 L nasal cannula. Lungs: Clear anteriorly with few crackles at the very bases. Abdomen: Soft. Extremities: Reveal trace edema. Positive 1 edema bilaterally. She is afebrile. Laboratory Data: Reviewed. Labs showed WBC count of 5.9, hemoglobin 10.6, hematocrit 32.2, platelet count of 156. Chemistry shows sodium 137; potassium 6.7, repeat is 6.9; chloride 102; bicarb 26; BU N 67; creatinine is 10.8; glucose 221; calcium 8.4. Troponin 0.14. Assessment And Plan: The patient with history of diabetes, hypertension, renal failure, legally blin d, presents with severe hyperkalemia with a slight tachycardia with a heart rate in the 90s. The pat ient is clinically stable, alert, awake, talking in full sentences. Breathing stabilized with oxygen . The patient is requiring emergent dialysis. Dialysis has already been started. The patient is se en on dialysis as well. Initially seen off dialysis and seen again on dialysis. Dialysis is going w ell. Increased dialysis time to 3-1/2 hours. Change dialysis potassium to 2K and continue with ultr afiltration. Increase ultrafiltration to about 3.5 L as tolerated. Discussed plan with the dialysis nurse. The patient examined again on dialysis. Her breathing is stable currently. She does have a few crackles in the base of her lungs. She does have some edema in the lower extremities, but she i s able to talk in full sentences and feels comfortable currently. She states she wants to go home af ter dialysis. I explained to her that, that will be decided after evaluating her subsequently after dialysis and if the primary team thinks she is stable with her breathing and her blood pressure after dialysis, she may be able to be discharged today or tomorrow. The patient denies any chest pain cur rently on my evaluation. Her troponin was 0.14. She did have a BNP level of 12,786. I did have dis cussion with her about her diet. Explained to her about avoiding oranges and not taking francesco exces sively. Also explained to her that even though the grapes may not cause a significant problem with p otassium, but eating a lot of those especially with a lot of fluid and then may cause her fluid issue s to act up and also it can cause her glucose to go up significantly. She does realize that she does not make much urine and with all these liquids that she is taking in, it can cause an acute problem like it at this time, especially when she has a 2-1/2 day holiday from dialysis on Monday. The karolyn ent states that she will be more careful going forward and she will try to be a little bit more caref ul with her potassium intake and also with her fluid intake. In summary dialysis currently. If stab le status post dialysis, the patient may be able to return home with followup on and dialysis. The patient counseled about diet, potassium restriction and fluid restriction . Otherwise, clinically stable. /SUDHA Voice ID: [id number] Report ID: [id number]
--- NOTE | 2020-09-08 12:55 | EKG ---
Test Date: 2020-09-08 Test Time: 02:56:21 Track Man: JUAN MEASUREMENT RESULTS: Intervals: Rate: 97 TN: 152 QRSD: 122 QT: 384 QTc: 487 [place]: P: 77 TN: 152 QRS: 72 T: 51 INTERPRETIVE STATEMENTS: Normal sinus rhythm Nonspecific intraventricular conduction delay ST & T wave abnormality, consider lateral ischemia Abnormal ECG Compared to ECG 06/09/2020 07:46:59 Intraventricular conduction delay now present Myocardial infarct finding no longer present ST (T wave) deviation still present Possible ischemia still present Electronically Signed On 09-08-20 12:53:41 CDT by Yovany Dewey
[2020-09-08] MEDS ORDERED: carvediloL 3.125 MG TAB PO ONE (15:46)
[2020-09-08] MEDS ORDERED: NIFEDIPINE XL 30 MG TABLET PO ONE (16:00)
--- NOTE | 2020-09-08 22:35 | HP ---
Date of Admission: 09/08/2020 Chief Complaint: Chest pain. History Of Present Illness: This is a 50-year-old female patient who has end- stage renal disease, on hemodialysis, started to have chest pain last night around 10 p.m. and pain was more or less continuous throughout the night. The patient says that pain started in the lower center of her chest and went to her back. She had some nausea and vomiting after she came to emergency room. After she received some treatment in the emergency room, her chest pain had resolved. When I saw her this morning, she was still in the emergency room and was asymptomatic at that time. She denies any fever or chills. No cough or congestion. No expectoration. Review of Systems: Cardiovascular: As mentioned above. Eyes: The patient is legally blind in both eyes. All other systems reviewed and negative. Allergies: TO TRAMADOL. Medications: List reviewed. Social History: Negative for smoking and alcohol use. Family History: Father; coronary artery disease, hypertension, diabetes, hyperlipidemia. Mother; hypertension, diabetes, and thyroid problems. Past Surgical History: Coronary artery stent placement in June 2016 and hysterectomy. Past Medical History: Significant for hypertension, diabetes mellitus which is diet controlled now, diabetic neuropathy and diabetic gastroparesis, hypertension, mixed hyperlipidemia, coronary artery disease, chronic systolic congestive heart failure, hepatitis C, end-stage renal disease on hemodialysis, history of cluster headache. Physical Examination: Vital Signs: Temperature 97.8, pulse 99, respiratory rate 18, blood pressure 161/97, oxygen saturation 99%, height 5 feet 8 inches, weight 180 pounds. General: Awake, alert, oriented, not in distress. HEENT: Head atraumatic, normocephalic. Opacity of cornea in both eyes. Mouth, no thrush or edema noted. Ears/Nose, no mass, lesion, discharge noted. Neck: Supple. No JVD, lymph nodes, bruit, thyromegaly noted. Lungs: Bilateral good equal air entry. Clear to auscultation. No rhonchi. No rales. Heart: Normal heart sounds, no murmur or gallop. Abdomen: Soft, bowel sounds normal. No guarding, rigidity, tenderness, mass, hepatosplenomegaly, distention, or bruit noted. Extremities: No leg edema. No calf tenderness. Skin: No rash, ulcer, cellulitis. Lymphatics: No lymph node enlargement in neck, supraclavicular, infraclavicular region. Neuro: No focal neurological deficit. Chest: Unremarkable. External Genitalia: Deferred. Rectal: Deferred. Laboratory Data: White count 5.9, hemoglobin 10.6, platelets 156. INR 0.96. D-dimer 6247. Sodium 134, potassium 6.7, chloride 97, bicarb 26, BUN 65, creatinine 10.6, glucose 321. Liver function tests unremarkable. Troponin 0.02. ProBNP 12,786. Repeat potassium this morning was 6.9. EKG; normal sinus rhythm. No acute ST-T changes. Chest x-ray, CHF/volume overload pattern present, right greater than left. Impression: 1. Chest pain. 2. Coronary artery disease. 3. Hyperkalemia. 4. End-stage renal disease, on hemodialysis. 5. Coronary artery disease. 6. Diabetes mellitus type 2 with gastroparesis. 7. Diabetes mellitus with neuropathy. 8. Diabetes mellitus with nephropathy. 9. End-stage renal disease, on hemodialysis. 10. Hypertension. 11. Mixed hyperlipidemia. 12. Chronic systolic congestive heart failure. Plan: Admit patient to hospital for further evaluation and management of this problem. The patient will be admitted to hospital. The patient received treatment for hyperkalemia in the emergency room and that did not help to lower her potassium, so director of financial aid was contacted by ER physician and the patient had hemodialysis done this morning. She goes for dialysis 3 times a week on Monday, , Monday, and today was her scheduled day for dialysis, so she will receive dialysis this morning. We will continue antihypertensive medication and consult geophysicist, and I will see her tomorrow for followup. Details and plan of treatment discussed with her. VINCENT/MODL Voice ID: [id number]
[2020-09-08] MEDS: GABAPENTIN 100 MG CAP PO SCH (22:38)
[2020-09-09 04:02] LABS: Absolute Lymphocytes (CBC) 1.3 K/uL (0.7-4.9); Basophils % 0.9 % (0-1.3); Lymphocytes % 22.3 % (15.3-44.8); MPV 9.5 fL (7.6-11.3); RBC Red Blood Cell Count 3.44 M/uL (3.86-4.86)
[2020-09-09 04:28] LABS: Potassium 7.1 mmol/L (3.5-5.1)
[2020-09-09] MEDS ORDERED: D50W 25 GM/50 ML SYRINGE IV ONE ×2 (05:14→05:15)
[2020-09-09] MEDS ORDERED: CALCIUM GLUC 10% INJ 4.65 MEQ in NA CHLORIDE 0.9% 100 ML IV ONE ×2 (05:14→05:15)
[2020-09-09] MEDS: SOD POLYSTYREN SUL 15 GM/60 ML UCUP PO ONE ×2 (05:14→05:34)
[2020-09-09] MEDS ORDERED: SOD POLYSTYREN SUL 15 GM/60 ML UCUP PO ONE (05:15)
[2020-09-09] MEDS ORDERED: INSULIN -REGULAR HUMAN 50 UNIT/0.5 ML ML IV ONE (05:15)
[2020-09-09] MEDS: INSULIN -REGULAR HUMAN 50 UNIT/0.5 ML ML IV ONE ×2 (05:15→05:36)
[2020-09-09] MEDS: D50W 50 ML IV ONE ×2 (05:36→05:42)
[2020-09-09] MEDS: CALCIUM GLUCONATE 1 GM IVPB 1 GM/50 ML BAG IV ONE ×2 (05:36→05:53)
[2020-09-09] MEDS ORDERED: SOD POLYSTYREN SUL 15 GM/60 ML UCUP ONE (05:42)
[2020-09-09] MEDS ORDERED: INSULIN -REGULAR HUMAN 50 UNIT/0.5 ML ML ONE (05:46)
[2020-09-09] MEDS ORDERED: PNEUMOCOCCAL VACCINE 0.5 ML IMVAC ONE (08:00)
--- NOTE | 2020-09-09 08:59 | P.PN ---
Date of Service: 09/09/20 Vital Signs Temp Pulse Resp BP Pulse Ox 97.1 F 86 18 160/93 H 97 09/09/20 04:00 09/09/20 04:00 09/09/20 04:00 09/09/20 04:00 09/09/20 04:00 Medications Aspirin (Aspirin Ec 81 Mg Tab) 81 mg PO DAILY [facility] Last Admin: 09/08/20 09:00 Dose: 81 mg Documented by: Carvedilol (Carvedilol 3.125 Mg Tab) 3.125 mg PO BID [facility] Last Admin: 09/08/20 21:00 Dose: Not Given Documented by: Gabapentin (Gabapentin 100 Mg Cap) 200 mg PO BEDTIME [facility] Last Admin: 09/08/20 22:38 Dose: 200 mg Documented by: Heparin Sodium (Porcine) (Heparin 5000 Unit/Ml 1 Ml Vial) 6,000 unit IV EVERY HD PRN PRN Reason: AFTER EACH Nifedipine (Nifedipine Xl 60 Mg Tablet) 60 mg PO BID [facility] Last Admin: 09/08/20 21:25 Dose: 60 mg Documented by: Sodium Chloride (Flush Normal Saline 10 Ml) 10 ml IV BID [facility] Last Admin: 09/08/20 21:26 Dose: 10 ml Documented by: Assessment/ Plan: Nephrology Feeling better and wants to go home. CPS stable without CP or SOB No acute events overnight. Vitals, medications, blood work and imaging reviewed in the chart. NAD. Neck supple. CTA. RRR. Soft Abd. No C/C/E. No rash. AAO. Normal speech. ESRD -Acute HD today Hyperkalemia -Acute HD today -Kayexalate as ordered -Repeat BMP -Evaluate for recirculation of the CVC. AVF currently maturing. -Renal Diet HTN with CKD/CHF -Continue Nifedipine Diastolic CHF -Acute HD with UF DM II with CKD, Retinopathy and Polyneuropathy -Recommend RISS Anemia in CKD -Start Retacrit CKD MBD CARMELITA/ Secondary HyperPTH -Start Vitamin D -Start Renvela Case reviewed with Rasheed at length.
[2020-09-09] MEDS: ASPIRIN EC 81 MG TAB PO SCH (09:00)
[2020-09-09] MEDS: CALCITROL 0.25 MCG CAP PO SCH (09:00)
[2020-09-09] MEDS: VITAMIN D 5,000 UNIT CAP PO SCH (09:00)
[2020-09-09] MEDS: NIFEDIPINE XL 60 MG TABLET PO SCH ×2 (09:00→22:03)
[2020-09-09] MEDS: carvediloL 3.125 MG TAB PO SCH ×2 (09:00→21:00)
[2020-09-09] MEDS: SEVELAMER CARBONATE 800 MG TABLET PO SCH ×2 (12:00→17:07)
[2020-09-09 15:47] VITALS: BMI 24.2
[2020-09-09] MEDS ORDERED: EPOETIN 4,000 UNIT/ML VIAL SQ SCH (17:00)
[2020-09-09 17:08] LABS: Potassium 4.2 mmol/L (3.5-5.1)
[2020-09-09] MEDS ORDERED: GABAPENTIN 100 MG CAP PO SCH (21:00)
[2020-09-09] MEDS: GABAPENTIN 100 MG CAP PO SCH (22:04)
[2020-09-10] MEDS: carvediloL 3.125 MG TAB PO SCH (08:09)
[2020-09-10] MEDS: VITAMIN D 5,000 UNIT CAP PO SCH (08:10)
[2020-09-10] MEDS: SEVELAMER CARBONATE 800 MG TABLET PO SCH ×2 (08:10→13:06)
[2020-09-10] MEDS: CALCITROL 0.25 MCG CAP PO SCH (08:10)
[2020-09-10] MEDS: NIFEDIPINE XL 60 MG TABLET PO SCH (08:10)
[2020-09-10] MEDS: ASPIRIN EC 81 MG TAB PO SCH (08:11)
[2020-09-10 08:57] VITALS: O2SAT 94
--- NOTE | 2020-09-10 09:41 | P.PN ---
Date of Service: 09/10/20 Vital Signs Temp Pulse Resp BP Pulse Ox 97.7 F 83 18 133/71 95 09/10/20 08:00 09/10/20 08:00 09/10/20 08:00 09/10/20 08:00 09/10/20 08:00 Medications Aspirin (Aspirin Ec 81 Mg Tab) 81 mg PO DAILY [facility] Last Admin: 09/10/20 08:11 Dose: 81 mg Documented by: Calcitriol (Calcitrol 0.25 Mcg Cap) 0.5 mcg PO DAILY [facility] Last Admin: 09/10/20 08:10 Dose: 0.5 mcg Documented by: Carvedilol (Carvedilol 3.125 Mg Tab) 3.125 mg PO BID [facility] Last Admin: 09/10/20 08:09 Dose: Not Given Documented by: Cholecalciferol (Vitamin D 5,000 Unit Cap) 5,000 unit PO DAILY [facility] Last Admin: 09/10/20 08:10 Dose: 5,000 unit Documented by: Epoetin Drew (Epoetin 4,000 Unit/Ml Vial) 4,000 unit SQ M,W,F [facility] Last Admin: 09/09/20 17:07 Dose: 4,000 unit Documented by: Gabapentin (Gabapentin 100 Mg Cap) 200 mg PO BEDTIME [facility] Last Admin: 09/09/20 22:04 Dose: 200 mg Documented by: Heparin Sodium (Porcine) (Heparin 1,000 Unit/Ml Vial) 6,000 unit IV EVERY HD PRN PRN Reason: AFTER EACH Last Admin: 09/09/20 13:48 Dose: 6,000 unit Documented by: Nifedipine (Nifedipine Xl 60 Mg Tablet) 60 mg PO BID [facility] Last Admin: 09/10/20 08:10 Dose: 60 mg Documented by: Sevelamer Carbonate (Sevelamer Carbonate 800 Mg Tablet) 800 mg PO TIDWM [facility] Last Admin: 09/10/20 08:10 Dose: 800 mg Documented by: Sodium Chloride (Flush Normal Saline 10 Ml) 10 ml IV BID [facility] Last Admin: 09/10/20 08:12 Dose: Not Given Documented by: Assessment/ Plan: Nephrology Feeling better and wants to go home. CPS stable without CP or SOB No acute events overnight. Vitals, medications, blood work and imaging reviewed in the chart. NAD. Neck supple. CTA. RRR. Soft Abd. No C/C/E. No rash. AAO. Normal speech. ESRD -Acute HD today Hyperkalemia -Acute HD today -Repeat BMP pending -Use CVC today. AVF currently maturing. -Renal Diet HTN with CKD/CHF -Continue Nifedipine Diastolic CHF -Acute HD with UF DM II with CKD, Retinopathy and Polyneuropathy -Recommend RISS Anemia in CKD -Continue Retacrit CKD MBD CARMELITA/ Secondary HyperPTH -Continue Vitamin D -ContinueRenvela
[2020-09-10 10:10] LABS: Potassium 4.7 mmol/L (3.5-5.1)
--- NOTE | 2020-09-10 10:13 | PN ---
Date of Progress Note: 09/09/2020 Subjective: The patient was seen this morning for followup. No new complaints or problems reported. Lying in bed, not in distress. No chest pain, shortness of breath. Objective: Vital Signs: Reviewed. HEENT: Unremarkable except opacification of bilateral cornea, which is a chronic finding. Lungs: Bilateral good air entry. Clear to auscultation. Heart: Sounds normal. Abdomen: Soft. Bowel sounds normal. No guarding, rigidity, tenderness, or distention. Extremities: No leg edema. Laboratory Data: White count 5.6, hemoglobin 10.4, platelets 135. Sodium 136, potassium 7.1, chlori de 101, bicarb 28, BUN 41, creatinine 7.96, glucose 108. Last troponin 0.60. Impression: 1.Hyperkalemia. 2.End-stage renal disease, on hemodialysis. 3.Anemia due to chronic kidney disease. 4.Thrombocytopenia. 5.Hypertension. Plan: We will go ahead and continue to follow with sports marketing coordinator. This morning, the patient's elevat ed potassium was reported by nursing staff to sports marketing coordinator who ordered Kayexalate and also ordered IV glucose as well as insulin and calcium gluconate for treatment of hyperkalemia and sports marketing coordinator is isela reece to make arrangements for dialysis this morning. We will continue current antihypertensive medication. VINCENT/MODL Voice ID: [id number] Report ID: [id number]
[2020-09-10 17:23] VITALS: BP 124/75; TEMP 97.8
--- NOTE | 2020-09-10 20:10 | DS ---
Date of Discharge: 09/10/2020 Disposition: Discharged to go home. Physical Examination: HEENT: Unremarkable. Lungs: Clear to auscultation. Heart: Sounds normal. Abdomen: Soft. Bowel sounds normal. No guarding, rigidity, tenderness, distention. Extremities: No leg edema. Laboratory Data: Upon admission; white count 5.9, hemoglobin 10.6, platelets 156. Day after admissi on; white count 5.6, hemoglobin 10.4, platelets 135. Last chemistry from yesterday; sodium 139, pota ssium 4.2, chloride 98, bicarb 36, BUN 19, creatinine 4.67, glucose 100. Upon admission; sodium 134, potassium 6.7, BUN 65, creatinine 10.6 and yesterday morning, potassium was 7.1. Initial troponin 0 .02, second troponin 0.14, third troponin 0.62. Hospital Course: This is a 50-year-old female patient, admitted to hospital after she presented to e mergency room with complaints of chest pain. Please see dictated H and P for more information. The patient is on hemodialysis for end-stage renal disease and after she came into ER, she was admitted t o the [facility]. Her potassium was extremely high. She was given treatment for hyperkalemia in the e mergency room and that actually did not help to lower her potassium, so urgent dialysis was arranged with help of her boat outboard engine mechanic on the day of admission. She had another session of dialysis yesterday as her potassium was 7.1 in the morning, and her last dialysis session was today and after that, the patient was discharged to go back home in stable condition. Cardiology consultation was requested f [facility] Dr. Dewey and he did not suggest any intervention, and the patient was advised to continue to [facility] up with Dr. Dewey on outpatient basis per his instruction. The patient has remained asymptom atic. No more chest pain after she was admitted to the hospital. She was discharged to go home in s table condition today with instruction to continue prior home medications. Final Diagnoses: 1.Chest pain. 2.Hyperkalemia. 3.End-stage renal disease, on hemodialysis. 4.Coronary artery disease. 5.Diabetes mellitus, type 2, with gastroparesis. 6.Diabetes mellitus, type 2, with neuropathy. 7.Diabetes mellitus, type 2, with nephropathy. 8.Hypertension. 9.Mixed hyperlipidemia. 10.Chronic systolic congestive heart failure. VINCENT/MODL Voice ID: [id number] Report ID: [id number]
--- NOTE | 2020-09-11 06:24 | EKG ---
Test Date: 2020-09-09 Test Time: 09:11:58 Color Adviser: NATHALIA MEASUREMENT RESULTS: Intervals: Rate: 93 NC: 112 QRSD: 102 QT: 384 QTc: 477 [place]: P: 47 NC: 112 QRS: 4 T: 77 INTERPRETIVE STATEMENTS: Normal sinus rhythm Possible Left atrial enlargement Nonspecific T wave abnormality Prolonged QT Abnormal ECG Compared to ECG 09/08/2020 02:56:21 T-wave abnormality now present Prolonged QT interval now present Intraventricular conduction delay no longer present ST (T wave) deviation no longer present Possible ischemia no longer present Electronically Signed On 09-11-20 06:18:26 CDT by Yovany Dewey
--- NOTE | 2020-09-11 11:20 | CON ---
Date of Consultation: 09/08/2020 Reason For Consultation: Atypical chest pain. History Of Present Illness: Ms. Brooke is a 50-year-old black woman. She is a patient of Dr. Schofield , has a history of end-stage renal disease, on hemodialysis. Came in with few hours of anterior ches t pain that radiated to the lower back. Had some nausea and vomiting after she came to the emergency room. Denied any PND, orthopnea, pedal edema, palpitation, or syncope. By the time we saw her, she was having no symptoms. She denied any fever or chills. Denied PND, orthopnea, pedal edema, palpit ations, or syncope. Past Medical History: Positive for coronary artery disease, status post stent in 2017. She has a hi story of end-stage renal disease, diabetes, hypertension, mixed dyslipidemia, and chronic systolic co ngestive heart failure as well as occasional hyperkalemia. Review of Systems: Negative. Social History: Negative. Family History: Positive for heart disease, diabetes, hypertension, and hypothyroidism. Allergies: TO TRAMADOL. Medications: Her medications at home include gabapentin and Procardia. Physical Examination: Vital Signs: Stable. She was afebrile. HEENT: Negative. Neck: Supple without any bruit, lymphadenopathy, JVD, or thyromegaly. Chest: Clear to auscultation and percussion. Cardiac: Revealed a regular rhythm and rate. No murmurs, gallops, or rubs. Abdomen: Benign. Extremities: Revealed no clubbing, cyanosis, or edema. Diagnostic Data: Basically EKG was unremarkable. Chest x-ray was unremarkable. Her creatinine was 7.96, her hemoglobin was 10.4, her potassium was 7.1. Her troponin is negative. Impression And Plan: 1.Atypical chest pain. 2.End-stage renal disease with hemodialysis and hyperkalemia. 3.Diabetes. 4.Hypertension. 5.Dyslipidemia. 6.Chronic systolic congestive heart failure. Nephrology has been consulted. Hyperkalemia will be treated. Hemodialysis will be performed today. We will continue to observe her. I will make arrangements for her to have an echocardiogram and Noman iscan in my office as an outpatient. Her last testing was 2 years ago. ISAAC/SUDHA Voice ID: [id number] Report ID: [id number]
--- NOTE | 2020-09-11 11:26 | PN ---
Date of Progress Note: 09/09/2020 Ms. Brooke had came in with atypical chest pain, severe hyperkalemia, has a history of CAD and CHF, had dialysis. Her potassium has been corrected. Her chest pain had gone on for few hours with norm al EKG and normal troponin. I do not think we are dealing with an acute coronary syndrome. She does have many risk factors for heart disease including hypertension, dyslipidemia, has known coronary ar nuria disease, status post stent, known chronic systolic congestive heart failure. She is asymptomati c today. She has legal blindness. I have discussed the case with Dr. Schofield. She can go home at her convenience and I will set her up for an outpatient echocardiogram and Lexiscan in the near future. Continue her present regimen. ISAAC/SUDHA Voice ID: [id number] Report ID: [id number]
== END 2020-09-10 17:36 | disposition home or self-care (01) | DRG 640 ==
LOC: ER 00:02 → ERHOLD 05:56 → 2ND 12:02
PROVIDERS: ADMIT Internal Medicine; ATTEND Internal Medicine
PROC: 5A1D70Z Performance of Urinary Filtration, Intermittent, Less than 6 Hours Per Day (ICD-10-PCS; principal; 2020-09-08)
PROC: 5A1D70Z Performance of Urinary Filtration, Intermittent, Less than 6 Hours Per Day (ICD-10-PCS; 2020-09-08)
PROC: 5A1D70Z Performance of Urinary Filtration, Intermittent, Less than 6 Hours Per Day (ICD-10-PCS; 2020-09-08)
DX: E87.5 Hyperkalemia (principal); N18.6 End stage renal disease; I13.2 Hypertensive heart and chronic kidney disease with heart failure and with stage 5 chronic kidney disease, or end stage renal disease; I50.22 Chronic systolic (congestive) heart failure; R07.9 Chest pain, unspecified; I25.10 Atherosclerotic heart disease of native coronary artery without angina pectoris; E11.22 Type 2 diabetes mellitus with diabetic chronic kidney disease; E11.43 Type 2 diabetes mellitus with diabetic autonomic (poly)neuropathy; K31.84 Gastroparesis; E11.40 Type 2 diabetes mellitus with diabetic neuropathy, unspecified; E11.21 Type 2 diabetes mellitus with diabetic nephropathy; E78.2 Mixed hyperlipidemia; D63.1 Anemia in chronic kidney disease; D69.6 Thrombocytopenia, unspecified; Z99.2 Dependence on renal dialysis; H54.8 Legal blindness, as defined in USA
CPT/HCPCS: 36415; 71045; 80048; 80076; 82947; 83735; 83880; 84484; 85025; 85379; 85610; 90935; 93005; 96374; 96375; 99284; J0610; J1644; J2405; J2550; Q5105

== ENCOUNTER 2022-04-19 07:51 | Emergency (ER) | payer OTHER ==
--- NOTE | 2022-04-19 08:13 | RAD REPORT ---
EXAM DESCRIPTION: CT - Ct Stroke Brain Wo Cont - 04/19/2022 8:05 am CLINICAL HISTORY: STROKE ALERT COMPARISON: Head Brain Wo Cont dated 06/10/2020; Head Brain Wo Cont dated 11/21/2018; Head Brain Wo Co nt dated 02/22/2017 TECHNIQUE: Axial 5 millimeter thick images of the head were obtained without IV contrast. All CT scans are performed using dose optimization technique as appropriate and may include automated exposure control or mA/KV adjustment according to patient size. FINDINGS: No intracranial hemorrhage, mass, or cerebral edema. No acute cortical based infarction id entified. No cortical edema or sulcal effacement. No extra-axial fluid collections. Cash matter-whit e matter differentiation is preserved.Patient has normal variant cavum septum pellucidum et vergae. V entriculomegaly is present relative to the amount of volume loss. This is a stable pattern going back to at least 2016. No change to the ventricular system identifiable. Visualized portions of the mastoid air cells, paranasal sinuses, and orbits are unremarkable. Findings telephoned to Dr. Pulliam 8:09 a.m.. IMPRESSION: No CT evidence of acute intracranial process. Above detailed findings are stable over multiple years.
[2022-04-19] MEDS ORDERED: NALOXONE HCL 2 MG/2 ML VIAL ONE (08:23)
--- OUTSIDE RECORDS SUMMARY | 2022-04-19 08:27 | XMS REPORT | Continuity of Care Document ---
:1970 Author Organization [facility] t Address [address] [place] [address] [address]. Pearl [address] [place] [address] Care Team Providers Name Role Phone UNKNOWN, REFFERING Primary Care Physician Unavailable JESSY BIRMINGHAM Attending Clinician Unavailable DESI CAMPOS Attending Clinician Unavailable Lavell IGLESIAS, Medardo Peterson Attending Clinician Sukhdev REGISTRATION CLERK-CLisa Attending Clinician Raulito ZARAGOZA, Aleah Attending Clinician Unavailable HEBER WADDELL Attending Clinician Unavailable MD HEBER WADDELL Attending Clinician UnavailSerjio London Attending Clinician Unavailable MD MEDARDO MONTE Attending Clinician Unavailable SAMMY CHAUDHRY Attending Clinician Unavailable URIEL PAN Attending Clinician Unavailable Yao Werner Attending Clinician Unavailable BUD GARDNER Attending Clinician Unavailable Sheyla Albarado Attending Clinician BRY CONNORS M.D., BRY Licona M.D. Attending Clinician Unavailable RISHI RANDOLPH Attending Clinician Unavailable MIESHA THORPE Attending Clinician Unavailable ISABEL DELA CRUZ Attending Clinician Unavailable Casey Davis Attending Clinician Latia Smith Attending Clinician Alexandre aWrren Attending Clinician Jessy Ku Attending Clinician Kizzy Pulliam Attending Clinician JESSY BIRMINGHAM Admitting Clinician Unavailable HEBER WADDELL Admitting Clinician Unavailable MD HEBER WADDELL Admitting Clinician UnavailSerjio London Admitting Clinician Unavailable MEDARDO MONTE Admitting Clinician Unavailable MD MEDARDO MONTE Admitting Clinician Unavailable BRY CONNORS M.D., BRY Licona Admitting Clinician RISHI Hunt Admitting Clinician Unavailable MIESHA THORPE Admitting Clinician Unavailable ISABEL DELA CRUZ Admitting Clinician Unavailable Payers Payer Name Policy Type Policy Number Effective Date Expiration Date S yi MEDICARE A B [id number] 2015 2016 00:00:00 00:00:00 FORMERLY [facility], [facility] [id number] 2016 2016 ONLY 00:00:00 00:00:00 [place] [id number] 2017 00:00:00 MEDICARE PART A \\T\\ [id number] B - MEDICARE WELLMED DUAL [id number] COMPLETE SNP [facility]-MEDICAID - [id number] 2017 MEDICAID 00:00:00 [place] [id number] 2018 00:00:00 MEDICARE PART A \\T\\ [id number] 2015 B 00:00:00 [facility] [id number] 2017 PPO 00:00:00 [facility] [id number] 2019 SELECT CHOICE 00:00:00 Problems Condition Condition Condition Status Onset Resolution Last Treating Co mments Source Name Details Category Date Date Treatment Clinician Date Weakness Weakness Disease Active 2020-03 Metho di of both of both 1-19 st legs legs 00:00: Hospita 00 l CAD in CAD in Disease Active 2020-03 Methodi jackson jackson 1-04 st artery artery 00:00: Hospita 00 l Coronary Coronary Disease Active Overview: Me thodi atheroscle atheroscle 06-[address] rosis rosis 00:00: g of this Hospita 00 note l might be different from the original. Cath 06/03: LAD:Non critical CAD: mid 40% , 60% distal //dominan t L Cx with 90 % mid-, 80% OM2 and OM3 disease); s/p mid LCx PCI (06/06)For matting of this note might be different from the original. CAD Coronaviru Coronaviru Disease Active M ethodi s s 06-29 st infection infection 00:00: Hosp spenser 00 l ESRD (end ESRD (end Disease Active Overview: Methodi stage stage 3-[address] renal renal 00:00: g of this Hospita disease) disease) 00 note l might be different from the original. Added automatic ally from request for surgery [id number] Renal Renal Disease Active Methodi osteodystr osteodystr 09-10 st ophy ophy 00:00: Hospita 00 l Secondary Secondary Disease Active Met hodi hyperparat hyperparat 09-10 st hyroidism hyroidism 00:00: Hosp spenser 00 l Unspecifie Unspecifie Disease Active M ethodi d d 09-10 st hypertensi hypertensi 00:00: Ho spita ve heart ve heart 00 l and kidney and kidney disease disease with heart with heart failure failure and and chronic chronic kidney kidney disease disease stage V or stage V or end stage end stage renal renal disease(40 disease(40 4.93) 4.93) End stage End stage Disease Active Met hodi renal renal 09-10 st failure on failure on 00:00: Ho spita dialysis dialysis 00 l Type 2 Type 2 Disease Active Methodi diabetes diabetes 09-10 st mellitus mellitus 00:00: Hospit a with with 00 l diabetic diabetic chronic chronic kidney kidney disease disease PERFORATED PERFORATE Diagnosis Active 2019-04-19 Memoria CORNEAL D CORNEAL 04-18 11:44:00 l ULCER, ULCER, 00:00: Hooper LEFT EYE LEFT EYE 00 Active 04/18/2019 [facility] Type 2 Type 2 Disease Active Methodi diabetes diabetes 4-24 st mellitus mellitus 00:00: Hospit a 00 l Chronic Chronic Disease Active Methodi systolic systolic 9-05 st congestive congestive 00:00: Ho spita heart heart 00 l failure failure Acute on Acute on Disease Active Metho di chronic chronic 6-12 st congestive congestive 00:00: Ho spita heart heart 00 l failure failure Hypervolem Hypervolem Disease Active M ethodi ia ia 6-12 st 00:00: Hospita 00 l Pleural Pleural Disease Active Methodi effusion effusion 3-20 st 00:00: Hospita 00 l Congestive Congestive Disease Active M ethodi heart heart 206 st failure failure 00:00: Hospita 00 l Hyperkalem Hyperkalem Disease Active M ethodi ia ia 2 st 00:00: Hospita 00 l Nausea Nausea Disease Active Methodi 2 st 00:00: Hospita 00 l Dyspnea Dyspnea Disease Active Methodi 04-18 st 00:00: Hospita 00 l Coronary Coronary Disease Active 2016-03 Metho di artery artery 2 st disease disease 00:00: Hospita 00 l Deep vein Deep vein Disease Active 2016-03 Met hodi thrombosis thrombosis 05-10 st (DVT) of (DVT) of 00:00: Hospit a right right 00 l upper upper extremity extremity Diabetic Diabetic Disease Active 2016-03 Metho di retinopath retinopath 05-10 st y y 00:00: Hospita associated associated 00 l with type with type 2 diabetes 2 diabetes mellitus mellitus Pain of Pain of Disease Active 2016-03 Methodi left lower left lower 2 st extremity extremity 00:00: Hosp spenser 00 l Pulmonary Pulmonary Disease Active 2016-03 Met hodi edema edema 05-10 st 00:00: Hospita 00 l ESRD on ESRD on Disease Active 2016-03 Methodi hemodialys hemodialys 05-10 st is is 00:00: Hospita 00 l Anemia Anemia Disease Active 2016-03 Methodi 04-26 st 00:00: Hospita 00 l Hydrocepha Hydrocepha Disease Active 2016-03 M ethodi eliot eliot 04-26 st 00:00: Hospita 00 l History of History of Disease Active 2016-[address] DVT (deep DVT (deep 2 Luke s vein vein 00:00: Medical thrombosis thrombosis 00 Ce nter ) ) Dizziness Dizziness Disease Active 2016-[address] 00:00: Hospita 00 l Headache Headache Disease Active 2016-03 Metho di 04-25 st 00:00: Hospita 00 l Nausea & Nausea & Disease Active 2016-03 Metho di vomiting vomiting 04-25 00:00: Hospita 00 l Personal Personal Disease Active 2016-03 Overview: Me thodi history of history of 2- Formattin st other other 00:00: g of this Hospita venous venous 00 note l thrombosis thrombosis might be and and different embolism embolism from the original. Formattin g of this note might be different from the original. to right arm AVF AVF Disease Active 2016-03 Overview: Method i (arteriove (arteriove 1-[address] nous nous 00:00: g of this Hospita fistula) fistula) 00 note l might be different from the original. Left-12/13 Ischemic Ischemic Disease Active 2016-03 Metho di cardiomyop cardiomyop 0-23 st athy athy 00:00: Hospita 00 l Abnormal Abnormal Disease Active 2016-03 Metho di levels of levels of 0-10 st other other 00:00: Hospita serum serum 00 l enzymes enzymes Increased Increased Disease Active 2016-03 Met hodi serum serum 0-10 st lipase lipase 00:00: Hospita level level 00 l Diarrhea Diarrhea Disease Active 2016-03 Metho di 0-10 st 00:00: Hospita 00 l Intractabl Intractabl Disease Active 2016-03 M ethodi e e 0-10 st abdominal abdominal 00:00: Hosp spenser pain pain 00 l End stage End stage Disease Active 2016-03 Met hodi renal renal 0-10 st disease disease 00:00: Hospita 00 l Hypertensi Hypertensi Disease Active M ethodi on on 10-12 00:00: Hospita 00 l Hyperlipid Hyperlipid Disease Active M ethodi emia emia 10-12 00:00: Hospita 00 l Mixed Mixed Disease Active Methodi hyperlipid hyperlipid 10-12 emia emia 00:00: Hospita 00 l Pneumonia Pneumonia Disease Active Met hodi 8 st 00:00: Hospita 00 l End-stage End-stage Disease Active Met hodi renal renal 8 st disease on disease on 00:00: Ho spita peritoneal peritoneal 00 l dialysis dialysis End-stage End-stage Disease Active Met hodi renal renal 8 st disease disease 00:00: Hospita 00 l Diabetes Diabetes Disease Active Metho di mellitus mellitus 10-12 st 00:00: Hospita 00 l Chronic Chronic Disease Active Overview: Meth betty hepatitis hepatitis 07-01 Formattin s t C virus C virus 00:00: g of this Hospi ta infection infection 00 note l might be different from the original. Formattin g of this note might be different from the original. hepatitis C virus ESRD (end ESRD (end Disease Active [facility] 00:[facility]: Medical disease) disease) 00 Center Essential Essential Disease Active [facility] hypertensi hypertensi 3-24 Brittany kes on on 00:00: Medical 00 Center Type 2 Type 2 Disease Active Methodi diabetes diabetes 3-24 st mellitus mellitus 00:00: Hospit a with with 00 l complicati complicati on on Essential Essential Disease Active Met hodi hypertensi hypertensi 2-10 st on on 00:00: Hospita 00 l SOB SOB Disease Active Methodi (shortness (shortness 2-10 st of breath) of breath) 00:00: Ho spita on on 00 l exertion exertion End-stage End-stage Disease Active Met hodi renal renal 2-10 st disease on disease on 00:00: Ho spita hemodialys hemodialys 00 l is is NOSE BLEED NOSE Diagnosis Active 2015-08-05 Eddyoria BLEED 08-04 17:41:00 l Active 00:00: Yovani 08/05/[address] [place] [address] Yovani UNK UNK Diagnosis Active 2015-08-21 Mem oria Active 06-28 14:28:00 l 06/29/2015 00:00: Myles huerta [place] VOMITING/C VOMITING/ Diagnosis Active 2015-06-17 Tatiana [place] 06-16 12:30:00 l Active 00:00: Yovani 06/17/2015 00 [facility] Chest pain Chest pain Disease Active M ethodi 05-11 st 00:00: Hospita 00 l Anemia in Anemia in Disease Active Met hodi chronic chronic 04-08 kidney kidney 00:00: Hospita disease disease 00 l Anemia of Anemia of Disease Active Met hodi chronic chronic 04-08 disease disease 00:00: Hospita 00 l Chronic Chronic Disease Active Methodi kidney kidney 04-08 disease, disease, 00:00: Hospit a stage IV stage IV 00 l (severe) (severe) Diabetic Diabetic Disease Active Metho di neuropathy neuropathy 04-08 00:00: Hospita 00 l Hypovolemi Hypovolemi Disease Active M ethodi a a 04-08 00:00: Hospita 00 l Uncontroll Uncontroll Disease Active M ethodi ed type 1 ed type 1 04-08 diabetes diabetes 00:00: Hospit a mellitus mellitus 00 l VOMITING VOMITING Diagnosis Active 2014-09-01 Memoria Active 08-29 13:41:00 l 08/29/2014 00:00: Myles huerta [address] History of History Problem Resolve 2019-04-21 Memoria - migraine of - d 23:42:23 l (context-d migraine Herm fabricio ependent (context-d category) ependent category) Resolved Problem 04/21/2019 [facility], [facility], KAYLYN Squires,[facility] Heartburn Heartburn Problem Resolve 2019-04-21 Memoria (finding) (finding) d 23:42:23 l Resolved Yovani Problem 04/21/2019 [facility] History of Past Illness Condition Condition Condition Status Onset Resolution Last Treating Co mments Source Name Details Category Date Date Treatment Clinician Date Discharge Discharge Problem 2015-06-20 2015-06-20 Memoria Diagnosis: Diagnosis: 06-16 03:51:39 03:51:39 l N&V N&V 05:00: Yovani (nausea (nausea 00 and and vomiting) vomiting) 06/17/2015 06/20/2015 [facility] Discharge Discharge Problem 2014-09-01 2014-09-01 Memoria Diagnosis: Diagnosis: 08-29 11:15:55 11:15:55 Acute Acute 05:00: Yovani headache headache 00 08/29/2014 09/01/2014 [facility] Allergies, Adverse Reactions, Alerts Allergy Allergy Status Severity Reaction(s) Onset Inactive Treating Comm ents Source Name Type Date Date Clinician No Known DA Active U 2020-03 [facility] [address] No Known DA Active U 2020-03 [facility]: [address] Latex Propensi Active Rash Only the Method i ty to 4-[address] adverse 00:00: Hospita reaction 00 l s to drug Tramadol Propensi Active GI 2016-03 Hallucina Met hodi ty to Intolerance 0-[address] adverse 00:00: Hospita reaction 00 l s to drug Tramadol Drug Active Nausea And dizziness [facility] Int[facility]omiting, [facility] Other (See 00:00: Medica l Comments) [address] [place] [address] TRAMADOL DRUG Active N/V [facility] INGREDI 06-06 ity of 00:00: [address] TRAMADOL Allergy Active N\\T\\V [facility] 327 00:00: 00 No Known DA Active U 2003-0 [facility] 5[facility]18 [facility] 00:[facility]: [address] No Known DA Active U 2003-0 [facility] Contrast 5[facility]18 [facility] Allergie [facility]: [address] No Known DA Active U 2003-0 [facility] Allergie [facility]: [address] No Known DA Active U 2003-0 [facility] Food 5[facility]18 [facility]ie [facility]: [address] No Known DA Active U 2003-0 [facility] Other 5-18 [facility] Allergie 00:[facility]: [address] traMADol traMADol Active Alex Pina Family History Family Member Diagnosis Comments Start Date Stop Date Source Natural mother Diabetes [facility] Natural mother Heart failure [facility] Natural mother Hypertension [facility] Natural father Diabetes [facility] Natural father Heart failure [facility] Natural father Hypertension [facility] Social History Social Habit Start Date Stop Date Quantity Comments Source Alcohol intake 2021-01-26 2021-01-26 Current drinker [facility] dist 00:00:00 00:00:00 of alcohol Hospital (finding) Alcohol Comment 2020-06-01 2020-06-01 LESS THAN [facility] 00:00:00 00:00:00 [facility] Hospital Tobacco Comment 2018-07-04 2018-07-04 Denies use of Method ist 00:00:00 00:00:00 nicotine Hospital products Tobacco use and 2016-06-03 2016-06-[address] [facility] Brittany kes exposure 00:00:00 00:00:00 [facility] Social History 2015-06-30 [facility] 18:17:45 [facility] Ass[birth year] At [birth year] [facility] 00:[facility] Smoking Status Start Date Stop Date Source Never smoked tobacco [facility] Medications Ordered Filled Start Stop Current Ordering Indication Dosage Frequency Signature Comments Components Source Medication Medication Date Date Medication? Clinician (SIG) Name Name gabapentin 2021-03 Yes 100mg QD Take 100 Me thodi (NEURONTIN) 1-[address] 100 mg 10:52: mouth Hospita capsule 10 every l morning. gabapentin 2021-03 Yes 200mg QD Take 200 Me thodi (NEURONTIN) 1-[address] 100 mg 10:52: mouth Hospita capsule 10 nightly. l sevelamer 2020-03 Yes 800mg [id number] Take 800 Methodi (RENVELA) 2-[id number] 800 mg 10:51: 3D mouth 3 Hospita tablet 03 (three) l times a day with meals. Additional 800 mg BID PRN snacks carvediloL 2020-03- No 6.25mg Q.5D Take 1 Me thodi (COREG) 2-13 12-[address] 6.25 MG 00:00: 05:59 (6.25 mg Hospi ta tablet 00 :00 total) by l mouth 2 (two) times a day. aspirin 325 2020-03- No 325mg QD Take 1 Me thodi MG tablet -01 05-[address] 00:00: 05:59 (325 mg Hospita 00 :00 total) by l mouth daily for 90 days. atorvastati 2020-03 No 40mg QD Take 1 Met hodi n (LIPITOR) 03-31-18 tablet (40 s t 40 mg 00:00: 05:59 mg total) Hospit a tablet 00 :00 by mouth l nightly for 90 days. losartan 2020-03 No 12.5mg QD Take 0.5 Me thodi (COZAAR) 25 03-31-[address] MG tablet 00:00: 05:59 (12.5 mg Hos naomy 00 :00 total) by l mouth daily for 90 days. lidocaine-p 2021- No Apply Meth betty rilocaine 10-19 08-[address] (EMLA) 00:00: 04:59 as needed Hospi ta 2.5-2.5 % 00 :00 for mild l cream pain. Apply to area 30-45 minutes prior to dialysis[place] [id number] 1{tbl} Q6H Take 1 M ethodi -acetaminop -[address] hen ([place]) 00:00: mouth Hospi ta 5-325 mg 00 every 6 l per tablet (six) hours as needed for moderate pain for up to 5 days .acute pain. Max Daily Amount: 4 tablets Hydralazine 2020-0 No 10 mg, Juan Manuel héctor 04-19 Route: l 21:10: IVP, Yovani 00 Q20Min, Dosing Weight 70.9, kg, PRN Elevated BP, Start date: 04/19/19 15:10:00 TOOL AND DIE TECHNICIAN, Duration: 2 doses or times, Stop date: Limited # of times Labetalol 2020-0 No 10 mg, Memori a 04-19 Route: l 21:10: IVP, Yovani 00 Q5Min, Dosing Weight 70.9, kg, PRN Elevated BP, Start date: 04/19/19 15:10:00 TOOL AND DIE TECHNICIAN, Duration: 5 doses or times, Stop date: Limited # of times Acetaminoph 2020-0 No 1,000 mg, M emoria en 04-19 Route: PO, l 21:10: Drug form: Yovani 00 TAB, ONCE, Dosing Weight 70.9, kg, PRN Pain Score 1-3, Start date: 04/19/19 15:10:00 TOOL AND DIE TECHNICIAN Oxycodone 2020-0 No 5 mg, Memoria Hydrochlori 2-07 Route: PO, l de 5 MG 21:10: Drug form: Herm fabricio Oral Tablet 00 TAB, Q4H, Dosing Weight 70.9, kg, PRN Pain Score 4-6, Start date: 04/19/19 15:10:00 TOOL AND DIE TECHNICIAN, Duration: 30 day, Stop date: 05/19/19 15:09:00 CDT Hydromorpho 2020-0 No 0.5 mg, Mem oria ne 2- Route: l 21:10: IVP, Hooper 00 Q5Min, Dosing Weight 70.9, kg, PRN Pain Score 7-10, Start date: 04/19/19 15:10:00 TOOL AND DIE TECHNICIAN, Duration: 4 doses or times, Stop date: Limited # of times Flumazenil 2020-0 No 0.2 mg, Juan Manuel héctor 2- Route: l 21:10: IVP, PRN, Yovani 00 Dosing Weight 70.9, kg, PRN Benzodiaze pine Reversal, Initial dose, Start date: 04/19/19 15:10:00 TOOL AND DIE TECHNICIAN, Duration: 30 day, Stop date: 05/19/19 16:09:00 CDT Naloxone 2020-0 No 0.4 mg, Memori a 2- Route: l 21:10: IVP, Hooper 00 Q2MIN, Dosing Weight 70.9, kg, PRN Narcotic Reversal, Start date: 04/19/19 15:10:00 TOOL AND DIE TECHNICIAN, Duration: 8 doses or times, Stop date: Limited # of times Ondansetron 2020-0 No 4 mg, Memor ia 2- Route: l 21:10: IVP, ONCE, Hooper 00 Dosing Weight 70.9, kg, PRN Nausea & Vomiting, Start date: 04/19/19 15:10:00 TOOL AND DIE TECHNICIAN Hydralazine 2020-0 No 10 mg, Juan Manuel héctor 2- Route: l 21:10: IVP, Hooper 00 Q20Min, Dosing Weight 70.9, kg, PRN Elevated BP, Start date: 04/19/19 15:10:00 TOOL AND DIE TECHNICIAN, Duration: 2 doses or times, Stop date: Limited # of times Labetalol 2020-0 No 10 mg, Memori a 2-07 Route: l 21:10: IVP, Hooper 00 Q5Min, Dosing Weight 70.9, kg, PRN Elevated BP, Start date: 04/19/19 15:10:00 TOOL AND DIE TECHNICIAN, Duration: 5 doses or times, Stop date: Limited # of times Acetaminoph 2020-0 No 1,000 mg, M emoria en 2- Route: PO, l 21:10: Drug form: Hooper 00 TAB, ONCE, Dosing Weight 70.9, kg, PRN Pain Score 1-3, Start date: 04/19/19 15:10:00 TOOL AND DIE TECHNICIAN Oxycodone 2020-0 No 5 mg, Memoria Hydrochlori 2- Route: PO, l de 5 MG 21:10: Drug form: Herm fabricio Oral Tablet 00 TAB, Q4H, Dosing Weight 70.9, kg, PRN Pain Score 4-6, Start date: 04/19/19 15:10:00 TOOL AND DIE TECHNICIAN, Duration: 30 day, Stop date: 05/19/19 15:09:00 CDT Hydromorpho 2020-0 No 0.5 mg, Mem oria ne 2 Route: l 21:10: IVP, Yovani 00 Q5Min, Dosing Weight 70.9, kg, PRN Pain Score 7-10, Start date: 04/19/19 15:10:00 TOOL AND DIE TECHNICIAN, Duration: 4 doses or times, Stop date: Limited # of times Flumazenil 2020-0 No 0.2 mg, Juan Manuel héctor 2- Route: l 21:10: IVP, PRN, Yovani Dosing Weight 70.9, kg, PRN Benzodiaze pine Reversal, Initial dose, Start date: 04/19/19 15:10:00 TOOL AND DIE TECHNICIAN, Duration: 30 day, Stop date: 05/19/19 16:09:00 CDT Naloxone 2020-0 No 0.4 mg, Memori a 2- Route: l 21:10: IVP, Yovani 00 Q2MIN, Dosing Weight 70.9, kg, PRN Narcotic Reversal, Start date: 04/19/19 15:10:00 TOOL AND DIE TECHNICIAN, Duration: 8 doses or times, Stop date: Limited # of times Ondansetron 2020-0 No 4 mg, Memor ia 2- Route: l 21:10: IVP, ONCE, Hooper 00 Dosing Weight 70.9, kg, PRN Nausea & Vomiting, Start date: 04/19/19 15:10:00 TOOL AND DIE TECHNICIAN Hydralazine 2020-0 No 10 mg, Juan Manuel héctor 2- Route: l 21:10: IVP, Yovani 00 Q20Min, Dosing Weight 70.9, kg, PRN Elevated BP, Start date: 04/19/19 15:10:00 TOOL AND DIE TECHNICIAN, Duration: 2 doses or times, Stop date: Limited # of times Labetalol 2020-0 No 10 mg, Memori a 2- Route: l 21:10: IVP, Yovani 00 Q5Min, Dosing Weight 70.9, kg, PRN Elevated BP, Start date: 04/19/19 15:10:00 TOOL AND DIE TECHNICIAN, Duration: 5 doses or times, Stop date: Limited # of times Acetaminoph 2020-0 No 1,000 mg, M emoria en 2- Route: PO, l 21:10: Drug form: Hooper 00 TAB, ONCE, Dosing Weight 70.9, kg, PRN Pain Score 1-3, Start date: 04/19/19 15:10:00 TOOL AND DIE TECHNICIAN Oxycodone 2020-0 No 5 mg, Memoria Hydrochlori 2- Route: PO, l de 5 MG 21:10: Drug form: Herm fabricio Oral Tablet 00 TAB, Q4H, Dosing Weight 70.9, kg, PRN Pain Score 4-6, Start date: 04/19/19 15:10:00 TOOL AND DIE TECHNICIAN, Duration: 30 day, Stop date: 05/19/19 15:09:00 CDT Hydromorpho 2020-0 No 0.5 mg, Mem oria ne 2- Route: l 21:10: IVP, Yovani 00 Q5Min, Dosing Weight 70.9, kg, PRN Pain Score 7-10, Start date: 04/19/19 15:10:00 TOOL AND DIE TECHNICIAN, Duration: 4 doses or times, Stop date: Limited # of times Flumazenil 2020-0 No 0.2 mg, Juan Manuel héctor 2-07 Route: l 21:10: IVP, PRN, Yovani 00 Dosing Weight 70.9, kg, PRN Benzodiaze pine Reversal, Initial dose, Start date: 04/19/19 15:10:00 TOOL AND DIE TECHNICIAN, Duration: 30 day, Stop date: 05/19/19 16:09:00 CDT Naloxone 2020-0 No 0.4 mg, Memori a 2- Route: l 21:10: IVP, Hooper 00 Q2MIN, Dosing Weight 70.9, kg, PRN Narcotic Reversal, Start date: 04/19/19 15:10:00 TOOL AND DIE TECHNICIAN, Duration: 8 doses or times, Stop date: Limited # of times Ondansetron 2020-0 No 4 mg, Memor ia 2- Route: l 21:10: IVP, ONCE, Yovani 00 Dosing Weight 70.9, kg, PRN Nausea & Vomiting, Start date: 04/19/19 15:10:00 TOOL AND DIE TECHNICIAN Hydralazine 2020-0 No 10 mg, Juan Manuel héctor 2- Route: l 21:10: IVP, Hooper 00 Q20Min, Dosing Weight 70.9, kg, PRN Elevated BP, Start date: 04/19/19 15:10:00 TOOL AND DIE TECHNICIAN, Duration: 2 doses or times, Stop date: Limited # of times Labetalol 2020-0 No 10 mg, Memori a 2- Route: l 21:10: IVP, Hooper 00 Q5Min, Dosing Weight 70.9, kg, PRN Elevated BP, Start date: 04/19/19 15:10:00 TOOL AND DIE TECHNICIAN, Duration: 5 doses or times, Stop date: Limited # of times Acetaminoph 2020-0 No 1,000 mg, M emoria en 2 Route: PO, l 21:10: Drug form: Hooper 00 TAB, ONCE, Dosing Weight 70.9, kg, PRN Pain Score 1-3, Start date: 04/19/19 15:10:00 TOOL AND DIE TECHNICIAN Oxycodone 2020-0 No 5 mg, Memoria Hydrochlori 2- Route: PO, l de 5 MG 21:10: Drug form: Herm fabricio Oral Tablet 00 TAB, Q4H, Dosing Weight 70.9, kg, PRN Pain Score 4-6, Start date: 04/19/19 15:10:00 TOOL AND DIE TECHNICIAN, Duration: 30 day, Stop date: 05/19/19 15:09:00 CDT Hydromorpho 2020-0 No 0.5 mg, Mem oria ne 2- Route: l 21:10: IVP, Hooper 00 Q5Min, Dosing Weight 70.9, kg, PRN Pain Score 7-10, Start date: 04/19/19 15:10:00 TOOL AND DIE TECHNICIAN, Duration: 4 doses or times, Stop date: Limited # of times Flumazenil 2020-0 No 0.2 mg, Juan Manuel héctor 2-07 Route: l 21:10: IVP, PRN, Yovani 00 Dosing Weight 70.9, kg, PRN Benzodiaze pine Reversal, Initial dose, Start date: 04/19/19 15:10:00 TOOL AND DIE TECHNICIAN, Duration: 30 day, Stop date: 05/19/19 16:09:00 CDT Naloxone 2020-0 No 0.4 mg, Memori a 2- Route: l 21:10: IVP, Yovani 00 Q2MIN, Dosing Weight 70.9, kg, PRN Narcotic Reversal, Start date: 04/19/19 15:10:00 TOOL AND DIE TECHNICIAN, Duration: 8 doses or times, Stop date: Limited # of times Ondansetron 2020-0 No 4 mg, Memor ia 2- Route: l 21:10: IVP, ONCE, Dosing Weight 70.9, kg, PRN Nausea & Vomiting, Start date: 04/19/19 15:10:00 TOOL AND DIE TECHNICIAN Hydralazine 2020-0 No 10 mg, Juan Manuel héctor 2- Route: l 21:10: IVP, Yovani 00 Q20Min, Dosing Weight 70.9, kg, PRN Elevated BP, Start date: 04/19/19 15:10:00 TOOL AND DIE TECHNICIAN, Duration: 2 doses or times, Stop date: Limited # of times Labetalol 2020-0 No 10 mg, Memori a 2- Route: l 21:10: IVP, Hooper 00 Q5Min, Dosing Weight 70.9, kg, PRN Elevated BP, Start date: 04/19/19 15:10:00 TOOL AND DIE TECHNICIAN, Duration: 5 doses or times, Stop date: Limited # of times Acetaminoph 2020-0 No 1,000 mg, M emoria en 2- Route: PO, l 21:10: Drug form: Hooper TAB, ONCE, Dosing Weight 70.9, kg, PRN Pain Score 1-3, Start date: 04/19/19 15:10:00 TOOL AND DIE TECHNICIAN Oxycodone 2020-0 No 5 mg, Memoria Hydrochlori 2-07 Route: PO, l de 5 MG 21:10: Drug form: Herm fabricio Oral Tablet 00 TAB, Q4H, Dosing Weight 70.9, kg, PRN Pain Score 4-6, Start date: 04/19/19 15:10:00 TOOL AND DIE TECHNICIAN, Duration: 30 day, Stop date: 05/19/19 15:09:00 CDT Hydromorpho 2020-0 No 0.5 mg, Mem oria ne 2-07 Route: l 21:10: IVP, Yovani 00 Q5Min, Dosing Weight 70.9, kg, PRN Pain Score 7-10, Start date: 04/19/19 15:10:00 TOOL AND DIE TECHNICIAN, Duration: 4 doses or times, Stop date: Limited # of times Flumazenil 2020-0 No 0.2 mg, Juan Manuel héctor 2- Route: l 21:10: IVP, PRN, Yovani 00 Dosing Weight 70.9, kg, PRN Benzodiaze pine Reversal, Initial dose, Start date: 04/19/19 15:10:00 TOOL AND DIE TECHNICIAN, Duration: 30 day, Stop date: 05/19/19 16:09:00 CDT Naloxone 2020-0 No 0.4 mg, Memori a 2- Route: l 21:10: IVP, Hooper 00 Q2MIN, Dosing Weight 70.9, kg, PRN Narcotic Reversal, Start date: 04/19/19 15:10:00 TOOL AND DIE TECHNICIAN, Duration: 8 doses or times, Stop date: Limited # of times Ondansetron 2020-0 No 4 mg, Memor ia 2-07 Route: l 21:10: IVP, ONCE, Yovani 00 Dosing Weight 70.9, kg, PRN Nausea & Vomiting, Start date: 04/19/19 15:10:00 TOOL AND DIE TECHNICIAN Hydralazine 2020-0 No 10 mg, Juan Manuel héctor 2-07 Route: l 21:10: IVP, Hooper 00 Q20Min, Dosing Weight 70.9, kg, PRN Elevated BP, Start date: 04/19/19 15:10:00 TOOL AND DIE TECHNICIAN, Duration: 2 doses or times, Stop date: Limited # of times Labetalol 2020-0 No 10 mg, Memori a 2-07 Route: l 21:10: IVP, Yovani 00 Q5Min, Dosing Weight 70.9, kg, PRN Elevated BP, Start date: 04/19/19 15:10:00 TOOL AND DIE TECHNICIAN, Duration: 5 doses or times, Stop date: Limited # of times Acetaminoph 2020-0 No 1,000 mg, M emoria en 2 Route: PO, l 21:10: Drug form: Yovani 00 TAB, ONCE, Dosing Weight 70.9, kg, PRN Pain Score 1-3, Start date: 04/19/19 15:10:00 TOOL AND DIE TECHNICIAN Oxycodone 2020-0 No 5 mg, Memoria Hydrochlori 2- Route: PO, l de 5 MG 21:10: Drug form: Herm fabricio Oral Tablet 00 TAB, Q4H, Dosing Weight 70.9, kg, PRN Pain Score 4-6, Start date: 04/19/19 15:10:00 TOOL AND DIE TECHNICIAN, Duration: 30 day, Stop date: 05/19/19 15:09:00 CDT Hydromorpho 2020-0 No 0.5 mg, Mem oria ne 04-19 Route: l 21:10: IVP, Yovani 00 Q5Min, Dosing Weight 70.9, kg, PRN Pain Score 7-10, Start date: 04/19/19 15:10:00 TOOL AND DIE TECHNICIAN, Duration: 4 doses or times, Stop date: Limited # of times Flumazenil 2020-0 No 0.2 mg, Juan Manuel héctor 04-19 Route: l 21:10: IVP, PRN, Yovani 00 Dosing Weight 70.9, kg, PRN Benzodiaze pine Reversal, Initial dose, Start date: 04/19/19 15:10:00 TOOL AND DIE TECHNICIAN, Duration: 30 day, Stop date: 05/19/19 16:09:00 CDT Naloxone 2020-0 No 0.4 mg, Memori a 04-19 Route: l 21:10: IVP, Yovani 00 Q2MIN, Dosing Weight 70.9, kg, PRN Narcotic Reversal, Start date: 04/19/19 15:10:00 TOOL AND DIE TECHNICIAN, Duration: 8 doses or times, Stop date: Limited # of times Ondansetron 2020-0 No 4 mg, Memor ia 04-19 Route: l 21:10: IVP, ONCE, Yovani 00 Dosing Weight 70.9, kg, PRN Nausea & Vomiting, Start date: 04/19/19 15:10:00 TOOL AND DIE TECHNICIAN Hydralazine 2020-0 No 10 mg, Juan Manuel héctor 2- Route: l 21:10: IVP, Yovani 00 Q20Min, Dosing Weight 70.9, kg, PRN Elevated BP, Start date: 04/19/19 15:10:00 TOOL AND DIE TECHNICIAN, Duration: 2 doses or times, Stop date: Limited # of times Labetalol 2020-0 No 10 mg, Memori a 2- Route: l 21:10: IVP, Hooper 00 Q5Min, Dosing Weight 70.9, kg, PRN Elevated BP, Start date: 04/19/19 15:10:00 TOOL AND DIE TECHNICIAN, Duration: 5 doses or times, Stop date: Limited # of times Acetaminoph 2020-0 No 1,000 mg, M emoria en 2- Route: PO, l 21:10: Drug form: Hooper 00 TAB, ONCE, Dosing Weight 70.9, kg, PRN Pain Score 1-3, Start date: 04/19/19 15:10:00 TOOL AND DIE TECHNICIAN Oxycodone 2020-0 No 5 mg, Memoria Hydrochlori 2- Route: PO, l de 5 MG 21:10: Drug form: Herm fabricio Oral Tablet 00 TAB, Q4H, Dosing Weight 70.9, kg, PRN Pain Score 4-6, Start date: 04/19/19 15:10:00 TOOL AND DIE TECHNICIAN, Duration: 30 day, Stop date: 05/19/19 15:09:00 CDT Hydromorpho 2020-0 No 0.5 mg, Mem oria ne 2- Route: l 21:10: IVP, Hooper 00 Q5Min, Dosing Weight 70.9, kg, PRN Pain Score 7-10, Start date: 04/19/19 15:10:00 TOOL AND DIE TECHNICIAN, Duration: 4 doses or times, Stop date: Limited # of times Flumazenil 2020-0 No 0.2 mg, Juan Manuel héctor 2- Route: l 21:10: IVP, PRN, Yovani 00 Dosing Weight 70.9, kg, PRN Benzodiaze pine Reversal, Initial dose, Start date: 04/19/19 15:10:00 TOOL AND DIE TECHNICIAN, Duration: 30 day, Stop date: 05/19/19 16:09:00 CDT Naloxone 2020-0 No 0.4 mg, Memori a 2-07 Route: l 21:10: IVP, Hooper 00 Q2MIN, Dosing Weight 70.9, kg, PRN Narcotic Reversal, Start date: 04/19/19 15:10:00 TOOL AND DIE TECHNICIAN, Duration: 8 doses or times, Stop date: Limited # of times Ondansetron 2020-0 No 4 mg, Memor ia 2- Route: l 21:10: IVP, ONCE, Yovani 00 Dosing Weight 70.9, kg, PRN Nausea & Vomiting, Start date: 04/19/19 15:10:00 TOOL AND DIE TECHNICIAN Hydralazine 2020-0 No 10 mg, Juan Manuel héctor 2-07 Route: l 21:10: IVP, Hooper 00 Q20Min, Dosing Weight 70.9, kg, PRN Elevated BP, Start date: 04/19/19 15:10:00 TOOL AND DIE TECHNICIAN, Duration: 2 doses or times, Stop date: Limited # of times Hydralazine 2020-0 No 10 mg, Juan Manuel héctor 2- Route: l 21:10: IVP, Hooper 00 Q20Min, Dosing Weight 70.9, kg, PRN Elevated BP, Start date: 04/19/19 15:10:00 TOOL AND DIE TECHNICIAN, Duration: 2 doses or times, Stop date: Limited # of times Labetalol 2020-0 No 10 mg, Memori a 2- Route: l 21:10: IVP, Hooper 00 Q5Min, Dosing Weight 70.9, kg, PRN Elevated BP, Start date: 04/19/19 15:10:00 TOOL AND DIE TECHNICIAN, Duration: 5 doses or times, Stop date: Limited # of times Acetaminoph 2020-0 No 1,000 mg, M emoria en 2-07 Route: PO, l 21:10: Drug form: Hooper 00 TAB, ONCE, Dosing Weight 70.9, kg, PRN Pain Score 1-3, Start date: 04/19/19 15:10:00 TOOL AND DIE TECHNICIAN Oxycodone 2020-0 No 5 mg, Memoria Hydrochlori 2-07 Route: PO, l de 5 MG 21:10: Drug form: Herm fabricio Oral Tablet 00 TAB, Q4H, Dosing Weight 70.9, kg, PRN Pain Score 4-6, Start date: 04/19/19 15:10:00 TOOL AND DIE TECHNICIAN, Duration: 30 day, Stop date: 05/19/19 15:09:00 CDT Hydromorpho 2020-0 No 0.5 mg, Mem oria ne 2 Route: l 21:10: IVP, Yovani 00 Q5Min, Dosing Weight 70.9, kg, PRN Pain Score 7-10, Start date: 04/19/19 15:10:00 TOOL AND DIE TECHNICIAN, Duration: 4 doses or times, Stop date: Limited # of times Flumazenil 2020-0 No 0.2 mg, Juan Manuel héctor 2 Route: l 21:10: IVP, PRN, Yovani 00 Dosing Weight 70.9, kg, PRN Benzodiaze pine Reversal, Initial dose, Start date: 04/19/19 15:10:00 TOOL AND DIE TECHNICIAN, Duration: 30 day, Stop date: 05/19/19 16:09:00 CDT Naloxone 2020-0 No 0.4 mg, Memori a 04-19 Route: l 21:10: IVP, Hooper 00 Q2MIN, Dosing Weight 70.9, kg, PRN Narcotic Reversal, Start date: 04/19/19 15:10:00 TOOL AND DIE TECHNICIAN, Duration: 8 doses or times, Stop date: Limited # of times Ondansetron 2020-0 No 4 mg, Memor ia 04-19 Route: l 21:10: IVP, ONCE, Dosing Weight 70.9, kg, PRN Nausea & Vomiting, Start date: 04/19/19 15:10:00 TOOL AND DIE TECHNICIAN Labetalol 2020-0 No 10 mg, Memori a 04-19 Route: l 21:10: IVP, Hooper 00 Q5Min, Dosing Weight 70.9, kg, PRN Elevated BP, Start date: 04/19/19 15:10:00 TOOL AND DIE TECHNICIAN, Duration: 5 doses or times, Stop date: Limited # of times Acetaminoph 2020-0 No 1,000 mg, M emoria en 04-19 Route: PO, l 21:10: Drug form: Yovani 00 TAB, ONCE, Dosing Weight 70.9, kg, PRN Pain Score 1-3, Start date: 04/19/19 15:10:00 TOOL AND DIE TECHNICIAN Oxycodone 2020-0 No 5 mg, Memoria Hydrochlori 2-07 Route: PO, l de 5 MG 21:10: Drug form: Herm fabricio Oral Tablet 00 TAB, Q4H, Dosing Weight 70.9, kg, PRN Pain Score 4-6, Start date: 04/19/19 15:10:00 TOOL AND DIE TECHNICIAN, Duration: 30 day, Stop date: 05/19/19 15:09:00 CDT Hydromorpho 2020-0 No 0.5 mg, Mem oria ne 2- Route: l 21:10: IVP, Yovani 00 Q5Min, Dosing Weight 70.9, kg, PRN Pain Score 7-10, Start date: 04/19/19 15:10:00 TOOL AND DIE TECHNICIAN, Duration: 4 doses or times, Stop date: Limited # of times Flumazenil 2020-0 No 0.2 mg, Juan Manuel héctor 2- Route: l 21:10: IVP, PRN, Hooper 00 Dosing Weight 70.9, kg, PRN Benzodiaze pine Reversal, Initial dose, Start date: 04/19/19 15:10:00 TOOL AND DIE TECHNICIAN, Duration: 30 day, Stop date: 05/19/19 16:09:00 CDT Naloxone 2020-0 No 0.4 mg, Memori a 2- Route: l 21:10: IVP, Hooper 00 Q2MIN, Dosing Weight 70.9, kg, PRN Narcotic Reversal, Start date: 04/19/19 15:10:00 TOOL AND DIE TECHNICIAN, Duration: 8 doses or times, Stop date: Limited # of times Hydralazine 2020-0 No 10 mg, Juan Manuel héctor 2-07 Route: l 21:10: IVP, Yovani 00 Q20Min, Dosing Weight 70.9, kg, PRN Elevated BP, Start date: 04/19/19 15:10:00 TOOL AND DIE TECHNICIAN, Duration: 2 doses or times, Stop date: Limited # of times Labetalol 2020-0 No 10 mg, Memori a 2-07 Route: l 21:10: IVP, Yovani 00 Q5Min, Dosing Weight 70.9, kg, PRN Elevated BP, Start date: 04/19/19 15:10:00 TOOL AND DIE TECHNICIAN, Duration: 5 doses or times, Stop date: Limited # of times Acetaminoph 2020-0 No 1,000 mg, M emoria en 2-07 Route: PO, l 21:10: Drug form: Hooper 00 TAB, ONCE, Dosing Weight 70.9, kg, PRN Pain Score 1-3, Start date: 04/19/19 15:10:00 TOOL AND DIE TECHNICIAN Oxycodone 2020-0 No 5 mg, Memoria Hydrochlori 2-07 Route: PO, l de 5 MG 21:10: Drug form: Herm fabricio Oral Tablet 00 TAB, Q4H, Dosing Weight 70.9, kg, PRN Pain Score 4-6, Start date: 04/19/19 15:10:00 TOOL AND DIE TECHNICIAN, Duration: 30 day, Stop date: 05/19/19 15:09:00 CDT Hydromorpho 2020-0 No 0.5 mg, Mem oria ne 2-07 Route: l 21:10: IVP, Yovani 00 Q5Min, Dosing Weight 70.9, kg, PRN Pain Score 7-10, Start date: 04/19/19 15:10:00 TOOL AND DIE TECHNICIAN, Duration: 4 doses or times, Stop date: Limited # of times Flumazenil 2020-0 No 0.2 mg, Juan Manuel héctor 2-07 Route: l 21:10: IVP, PRN, Yovani 00 Dosing Weight 70.9, kg, PRN Benzodiaze pine Reversal, Initial dose, Start date: 04/19/19 15:10:00 TOOL AND DIE TECHNICIAN, Duration: 30 day, Stop date: 05/19/19 16:09:00 CDT Naloxone 2020-0 No 0.4 mg, Memori a 2-07 Route: l 21:10: IVP, Hooper 00 Q2MIN, Dosing Weight 70.9, kg, PRN Narcotic Reversal, Start date: 04/19/19 15:10:00 TOOL AND DIE TECHNICIAN, Duration: 8 doses or times, Stop date: Limited # of times Ondansetron 2020-0 No 4 mg, Memor ia 2-07 Route: l 21:10: IVP, ONCE, Yovani 00 Dosing Weight 70.9, kg, PRN Nausea & Vomiting, Start date: 04/19/19 15:10:00 TOOL AND DIE TECHNICIAN Ondansetron 2020-0 No 4 mg, Memor ia 2-07 Route: l 21:10: IVP, ONCE, Hooper Dosing Weight 70.9, kg, PRN Nausea & Vomiting, Start date: 04/19/19 15:10:00 TOOL AND DIE TECHNICIAN Hydralazine 2020-0 No 10 mg, Juan Manuel héctor 2- Route: l 21:10: IVP, Yovani 00 Q20Min, Dosing Weight 70.9, kg, PRN Elevated BP, Start date: 04/19/19 15:10:00 TOOL AND DIE TECHNICIAN, Duration: 2 doses or times, Stop date: Limited # of times Labetalol 2020-0 No 10 mg, Memori a 2- Route: l 21:10: IVP, Hooper 00 Q5Min, Dosing Weight 70.9, kg, PRN Elevated BP, Start date: 04/19/19 15:10:00 TOOL AND DIE TECHNICIAN, Duration: 5 doses or times, Stop date: Limited # of times Acetaminoph 2020-0 No 1,000 mg, M emoria en 2- Route: PO, l 21:10: Drug form: Yovani 00 TAB, ONCE, Dosing Weight 70.9, kg, PRN Pain Score 1-3, Start date: 04/19/19 15:10:00 TOOL AND DIE TECHNICIAN Oxycodone 2020-0 No 5 mg, Memoria Hydrochlori - Route: PO, l de 5 MG 21:10: Drug form: Herm fabricio Oral Tablet 00 TAB, Q4H, Dosing Weight 70.9, kg, PRN Pain Score 4-6, Start date: 04/19/19 15:10:00 TOOL AND DIE TECHNICIAN, Duration: 30 day, Stop date: 05/19/19 15:09:00 CDT Hydromorpho 2020-0 No 0.5 mg, Mem oria ne - Route: l 21:10: IVP, Hooper 00 Q5Min, Dosing Weight 70.9, kg, PRN Pain Score 7-10, Start date: 04/19/19 15:10:00 TOOL AND DIE TECHNICIAN, Duration: 4 doses or times, Stop date: Limited # of times Flumazenil 2020-0 No 0.2 mg, Juan Manuel héctor 2- Route: l 21:10: IVP, PRN, Yovani 00 Dosing Weight 70.9, kg, PRN Benzodiaze pine Reversal, Initial dose, Start date: 04/19/19 15:10:00 TOOL AND DIE TECHNICIAN, Duration: 30 day, Stop date: 05/19/19 16:09:00 CDT Naloxone 2020-0 No 0.4 mg, Memori a 2- Route: l 21:10: IVP, Hooper 00 Q2MIN, Dosing Weight 70.9, kg, PRN Narcotic Reversal, Start date: 04/19/19 15:10:00 TOOL AND DIE TECHNICIAN, Duration: 8 doses or times, Stop date: Limited # of times Ondansetron 2020-0 No 4 mg, Memor ia 04-19 Route: l 21:10: IVP, ONCE, Hooper 00 Dosing Weight 70.9, kg, PRN Nausea & Vomiting, Start date: 04/19/19 15:10:00 TOOL AND DIE TECHNICIAN Hydralazine 2020-0 No 10 mg, Juan Manuel héctor 04-19 Route: l 21:10: IVP, Yovani 00 Q20Min, Dosing Weight 70.9, kg, PRN Elevated BP, Start date: 04/19/19 15:10:00 TOOL AND DIE TECHNICIAN, Duration: 2 doses or times, Stop date: Limited # of times Labetalol 2020-0 No 10 mg, Memori a 04-19 Route: l 21:10: IVP, Hooper 00 Q5Min, Dosing Weight 70.9, kg, PRN Elevated BP, Start date: 04/19/19 15:10:00 TOOL AND DIE TECHNICIAN, Duration: 5 doses or times, Stop date: Limited # of times Acetaminoph 2020-0 No 1,000 mg, M emoria en 04-19 Route: PO, l 21:10: Drug form: Hooper 00 TAB, ONCE, Dosing Weight 70.9, kg, PRN Pain Score 1-3, Start date: 04/19/19 15:10:00 TOOL AND DIE TECHNICIAN Oxycodone 2020-0 No 5 mg, Memoria Hydrochlori 04-19 Route: PO, l de 5 MG 21:10: Drug form: Herm fabricio Oral Tablet 00 TAB, Q4H, Dosing Weight 70.9, kg, PRN Pain Score 4-6, Start date: 04/19/19 15:10:00 TOOL AND DIE TECHNICIAN, Duration: 30 day, Stop date: 05/19/19 15:09:00 CDT Hydromorpho 2020-0 No 0.5 mg, Mem oria ne 04-19 Route: l 21:10: IVP, Yovani 00 Q5Min, Dosing Weight 70.9, kg, PRN Pain Score 7-10, Start date: 04/19/19 15:10:00 TOOL AND DIE TECHNICIAN, Duration: 4 doses or times, Stop date: Limited # of times Flumazenil 2020-0 No 0.2 mg, Juan Manuel héctor 2-07 Route: l 21:10: IVP, PRN, Hooper 00 Dosing Weight 70.9, kg, PRN Benzodiaze pine Reversal, Initial dose, Start date: 04/19/19 15:10:00 TOOL AND DIE TECHNICIAN, Duration: 30 day, Stop date: 05/19/19 16:09:00 CDT Naloxone 2020-0 No 0.4 mg, Memori a 2- Route: l 21:10: IVP, Hooper 00 Q2MIN, Dosing Weight 70.9, kg, PRN Narcotic Reversal, Start date: 04/19/19 15:10:00 TOOL AND DIE TECHNICIAN, Duration: 8 doses or times, Stop date: Limited # of times Ondansetron 2020-0 No 4 mg, Memor ia 2- Route: l 21:10: IVP, ONCE, Hooper 00 Dosing Weight 70.9, kg, PRN Nausea & Vomiting, Start date: 04/19/19 15:10:00 TOOL AND DIE TECHNICIAN Hydralazine 2020-0 No 10 mg, Juan Manuel héctor 2- Route: l 21:10: IVP, Yovani 00 Q20Min, Dosing Weight 70.9, kg, PRN Elevated BP, Start date: 04/19/19 15:10:00 TOOL AND DIE TECHNICIAN, Duration: 2 doses or times, Stop date: Limited # of times Labetalol 2020-0 No 10 mg, Memori a 2- Route: l 21:10: IVP, Yovani 00 Q5Min, Dosing Weight 70.9, kg, PRN Elevated BP, Start date: 04/19/19 15:10:00 TOOL AND DIE TECHNICIAN, Duration: 5 doses or times, Stop date: Limited # of times Acetaminoph 2020-0 No 1,000 mg, M emoria en 2- Route: PO, l 21:10: Drug form: Yovani 00 TAB, ONCE, Dosing Weight 70.9, kg, PRN Pain Score 1-3, Start date: 04/19/19 15:10:00 TOOL AND DIE TECHNICIAN Oxycodone 2020-0 No 5 mg, Memoria Hydrochlori 2-07 Route: PO, l de 5 MG 21:10: Drug form: Herm fabricio Oral Tablet 00 TAB, Q4H, Dosing Weight 70.9, kg, PRN Pain Score 4-6, Start date: 04/19/19 15:10:00 TOOL AND DIE TECHNICIAN, Duration: 30 day, Stop date: 05/19/19 15:09:00 CDT Hydromorpho 2020-0 No 0.5 mg, Mem oria ne 2-07 Route: l 21:10: IVP, Hooper 00 Q5Min, Dosing Weight 70.9, kg, PRN Pain Score 7-10, Start date: 04/19/19 15:10:00 TOOL AND DIE TECHNICIAN, Duration: 4 doses or times, Stop date: Limited # of times Flumazenil 2020-0 No 0.2 mg, Juan Manuel héctor 2-07 Route: l 21:10: IVP, PRN, Yovani 00 Dosing Weight 70.9, kg, PRN Benzodiaze pine Reversal, Initial dose, Start date: 04/19/19 15:10:00 TOOL AND DIE TECHNICIAN, Duration: 30 day, Stop date: 05/19/19 16:09:00 CDT Naloxone 2020-0 No 0.4 mg, Memori a 2-07 Route: l 21:10: IVP, Hooper 00 Q2MIN, Dosing Weight 70.9, kg, PRN Narcotic Reversal, Start date: 04/19/19 15:10:00 TOOL AND DIE TECHNICIAN, Duration: 8 doses or times, Stop date: Limited # of times Ondansetron 2020-0 No 4 mg, Memor ia 2-07 Route: l 21:10: IVP, ONCE, Yovani 00 Dosing Weight 70.9, kg, PRN Nausea & Vomiting, Start date: 04/19/19 15:10:00 TOOL AND DIE TECHNICIAN Hydralazine 2020-0 No 10 mg, Juan Manuel héctor 2-07 Route: l 21:10: IVP, Hooper 00 Q20Min, Dosing Weight 70.9, kg, PRN Elevated BP, Start date: 04/19/19 15:10:00 TOOL AND DIE TECHNICIAN, Duration: 2 doses or times, Stop date: Limited # of times Labetalol 2020-0 No 10 mg, Memori a 2-07 Route: l 21:10: IVP, Yovani 00 Q5Min, Dosing Weight 70.9, kg, PRN Elevated BP, Start date: 04/19/19 15:10:00 TOOL AND DIE TECHNICIAN, Duration: 5 doses or times, Stop date: Limited # of times Acetaminoph 2020-0 No 1,000 mg, M emoria en 2 Route: PO, l 21:10: Drug form: Yovani 00 TAB, ONCE, Dosing Weight 70.9, kg, PRN Pain Score 1-3, Start date: 04/19/19 15:10:00 TOOL AND DIE TECHNICIAN Oxycodone 2020-0 No 5 mg, Memoria Hydrochlori 04-19 Route: PO, l de 5 MG 21:10: Drug form: Herm fabricio Oral Tablet 00 TAB, Q4H, Dosing Weight 70.9, kg, PRN Pain Score 4-6, Start date: 04/19/19 15:10:00 TOOL AND DIE TECHNICIAN, Duration: 30 day, Stop date: 05/19/19 15:09:00 CDT Hydromorpho 2020-0 No 0.5 mg, Mem oria ne 04-19 Route: l 21:10: IVP, Hooper 00 Q5Min, Dosing Weight 70.9, kg, PRN Pain Score 7-10, Start date: 04/19/19 15:10:00 TOOL AND DIE TECHNICIAN, Duration: 4 doses or times, Stop date: Limited # of times Flumazenil 2020-0 No 0.2 mg, Juan Manuel héctor 04-19 Route: l 21:10: IVP, PRN, Hooper 00 Dosing Weight 70.9, kg, PRN Benzodiaze pine Reversal, Initial dose, Start date: 04/19/19 15:10:00 TOOL AND DIE TECHNICIAN, Duration: 30 day, Stop date: 05/19/19 16:09:00 CDT Naloxone 2020-0 No 0.4 mg, Memori a 04-19 Route: l 21:10: IVP, Hooper 00 Q2MIN, Dosing Weight 70.9, kg, PRN Narcotic Reversal, Start date: 04/19/19 15:10:00 TOOL AND DIE TECHNICIAN, Duration: 8 doses or times, Stop date: Limited # of times Ondansetron 2020-0 No 4 mg, Memor ia 04-19 Route: l 21:10: IVP, ONCE, Hooper 00 Dosing Weight 70.9, kg, PRN Nausea & Vomiting, Start date: 04/19/19 15:10:00 TOOL AND DIE TECHNICIAN ondansetron 2020-0 No Route: IV, Memoria (ANES) 04-19 Drug form: l 20:55: INJ, ONCE, Stop date: 04/19/19 14:55:00 TOOL AND DIE TECHNICIAN glycopyrrol 2020-0 No Route: IV, Memoria ate (ANES) 2- Drug form: l 20:55: INJ, ONCE, Stop date: 04/19/19 14:55:00 TOOL AND DIE TECHNICIAN neostigmine 2020-0 No Route: IV, Memoria (ANES) 2 Drug form: l 20:55: INJ, ONCE, Stop date: 04/19/19 14:55:00 TOOL AND DIE TECHNICIAN ondansetron 2020-0 No Route: IV, Memoria (ANES) 2 Drug form: l 20:55: INJ, ONCE, Stop date: 04/19/19 14:55:00 TOOL AND DIE TECHNICIAN glycopyrrol 2020-0 No Route: IV, Memoria ate (ANES) 04-19 Drug form: l 20:55: INJ, ONCE, Stop date: 04/19/19 14:55:00 TOOL AND DIE TECHNICIAN neostigmine 2020-0 No Route: IV, Memoria (ANES) 04-19 Drug form: l 20:55: INJ, ONCE, Stop date: 04/19/19 14:55:00 TOOL AND DIE TECHNICIAN ondansetron 2020-0 No Route: IV, Memoria (ANES) 04-19 Drug form: l 20:55: INJ, ONCE, Stop date: 04/19/19 14:55:00 TOOL AND DIE TECHNICIAN glycopyrrol 2020-0 No Route: IV, Memoria ate (ANES) 04-19 Drug form: l 20:55: INJ, ONCE, Stop date: 04/19/19 14:55:00 TOOL AND DIE TECHNICIAN neostigmine 2020-0 No Route: IV, Memoria (ANES) 2 Drug form: l 20:55: INJ, ONCE, Stop date: 04/19/19 14:55:00 TOOL AND DIE TECHNICIAN ondansetron 2020-0 No Route: IV, Memoria (ANES) 2- Drug form: l 20:55: INJ, ONCE, Stop date: 04/19/19 14:55:00 TOOL AND DIE TECHNICIAN glycopyrrol 2020-0 No Route: IV, Memoria ate (ANES) 2 Drug form: l 20:55: INJ, ONCE, Stop date: 04/19/19 14:55:00 TOOL AND DIE TECHNICIAN neostigmine 2020-0 No Route: IV, Memoria (ANES) 2- Drug form: l 20:55: INJ, ONCE, Stop date: 04/19/19 14:55:00 TOOL AND DIE TECHNICIAN ondansetron 2020-0 No Route: IV, Memoria (ANES) 2 Drug form: l 20:55: INJ, ONCE, Stop date: 04/19/19 14:55:00 TOOL AND DIE TECHNICIAN glycopyrrol 2020-0 No Route: IV, Memoria ate (ANES) 04-19 Drug form: l 20:55: INJ, ONCE, Stop date: 04/19/19 14:55:00 TOOL AND DIE TECHNICIAN neostigmine 2020-0 No Route: IV, Memoria (ANES) 04-19 Drug form: l 20:55: INJ, ONCE, Stop date: 04/19/19 14:55:00 [employer]IE TECHNICIAN ondansetron 2020-0 No Route: IV, Memoria (ANES) 04-19 Drug form: l 20:55: INJ, ONCE, Stop date: 04/19/19 14:55:00 [employer] AND [employer]IE TECHNICIAN glycopyrrol 2020-0 No Route: IV, Memoria ate (ANES) 04-19 Drug form: l 20:55: INJ, ONCE, Stop date: 04/19/19 14:55:00 [employer] AND DIE TECHNICIAN neostigmine 2020-0 No Route: IV, Memoria (ANES) 2 Drug form: l 20:55: INJ, ONCE, Stop date: 04/19/19 14:55:00 [employer] AND [employer]IE TECHNICIAN ondansetron 2020-0 No Route: IV, Memoria (ANES) 2 Drug form: l 20:55: INJ, ONCE, Stop date: 04/19/19 14:55:00 [employer] AND [employer]IE TECHNICIAN glycopyrrol 2020-0 No Route: IV, Memoria ate (ANES) 2 Drug form: l 20:55: INJ, ONCE, Stop date: 04/19/19 14:55:00 TO[employer] AND DIE TECHNICIAN neostigmine 2020-0 No Route: IV, Memoria (ANES) 2 Drug form: l 20:55: INJ, ONCE, Stop date: 04/19/19 14:55:00 TO[employer] AND DIE TECHNICIAN ondansetron 2020-0 No Route: IV, Memoria (ANES) 2- Drug form: l 20:55: INJ, ONCE, Stop date: 04/19/19 14:55:00 [employer] AND [employer]IE TECHNICIAN glycopyrrol 2020-0 No Route: IV, Memoria ate (ANES) 2 Drug form: l 20:55: INJ, ONCE, Stop date: 04/19/19 14:55:00 [employer] AND DIE TECHNICIAN neostigmine 2020-0 No Route: IV, Memoria (ANES) 2 Drug form: l 20:55: INJ, ONCE, Stop date: 04/19/19 14:55:00 [employer] AND [employer]IE TECHNICIAN ondansetron 2020-0 No Route: IV, Memoria (ANES) 04-19 Drug form: l 20:55: INJ, ONCE, Stop date: 04/19/19 14:55:00 [employer] AND [employer]IE TECHNICIAN glycopyrrol 2020-0 No Route: IV, Memoria ate (ANES) 04-19 Drug form: l 20:55: INJ, ONCE, Stop date: 04/19/19 14:55:00 [employer] AND DIE TECHNICIAN neostigmine 2020-0 No Route: IV, Memoria (ANES) 2- Drug form: l 20:55: INJ, ONCE, Stop date: 04/19/19 14:55:00 [employer]IE TECHNICIAN ondansetron 2020-0 No Route: IV, Memoria (ANES) 2 Drug form: l 20:55: INJ, ONCE, Stop date: 04/19/19 14:55:00 [employer] AND [employer]IE TECHNICIAN glycopyrrol 2020-0 No Route: IV, Memoria ate (ANES) 2 Drug form: l 20:55: INJ, ONCE, Stop date: 04/19/19 14:55:00 [employer] AND [employer]IE TECHNICIAN neostigmine 2020-0 No Route: IV, Memoria (ANES) 2- Drug form: l 20:55: INJ, ONCE, Stop date: 04/19/19 14:55:00 [employer] AND [employer]IE TECHNICIAN ondansetron 2020-0 No Route: IV, Memoria (ANES) 2- Drug form: l 20:55: INJ, ONCE, Stop date: 04/19/19 14:55:00 [employer] AND [employer]IE TECHNICIAN glycopyrrol 2020-0 No Route: IV, Memoria ate (ANES) 2- Drug form: l 20:55: INJ, ONCE, Stop date: 04/19/19 14:55:00 [employer] AND DIE TECHNICIAN neostigmine 2020-0 No Route: IV, Memoria (ANES) 2 Drug form: l 20:55: INJ, ONCE, Stop date: 04/19/19 14:55:00 [employer] AND [employer]IE TECHNICIAN ondansetron 2020-0 No Route: IV, Memoria (ANES) 2 Drug form: l 20:55: INJ, ONCE, Stop date: 04/19/19 14:55:00 [employer] AND [employer]IE TECHNICIAN glycopyrrol 2020-0 No Route: IV, Memoria ate (ANES) 04-19 Drug form: l 20:55: INJ, ONCE, Stop date: 04/19/19 14:55:00 [employer] AND DIE TECHNICIAN neostigmine 2020-0 No Route: IV, Memoria (ANES) 04-19 Drug form: l 20:55: INJ, ONCE, Stop date: 04/19/19 14:55:00 [employer]IE TECHNICIAN ondansetron 2020-0 No Route: IV, Memoria (ANES) 04-19 Drug form: l 20:55: INJ, ONCE, Stop date: 04/19/19 14:55:00 [employer] AND [employer]IE TECHNICIAN glycopyrrol 2020-0 No Route: IV, Memoria ate (ANES) 04-19 Drug form: l 20:55: INJ, ONCE, Stop date: 04/19/19 14:55:00 [employer] AND DIE TECHNICIAN neostigmine 2020-0 No Route: IV, Memoria (ANES) 2 Drug form: l 20:55: INJ, ONCE, Stop date: 04/19/19 14:55:00 [employer] AND [employer]IE TECHNICIAN ondansetron 2020-0 No Route: IV, Memoria (ANES) 2- Drug form: l 20:55: INJ, ONCE, Stop date: 04/19/19 14:55:00 TOOL AND DIE TECHNICIAN glycopyrrol 2020-0 No Route: IV, Memoria ate (ANES) 2 Drug form: l 20:55: INJ, ONCE, Stop date: 04/19/19 14:55:00 TOOL AND DIE TECHNICIAN neostigmine 2020-0 No Route: IV, Memoria (ANES) 04-19 Drug form: l 20:55: INJ, ONCE, Stop date: 04/19/19 14:55:00 TOOL AND DIE TECHNICIAN dexamethaso 2020-0 No Route: IV, Memoria ne (ANES) 04-19 Drug form: l 20:27: INJ, ONCE, Stop date: 04/19/19 14:27:00 TOOL AND DIE TECHNICIAN dexamethaso 2020-0 No Route: IV, Memoria ne (ANES) 04-19 Drug form: l 20:27: INJ, ONCE, Stop date: 04/19/19 14:27:00 TOOL AND DIE TECHNICIAN dexamethaso 2020-0 No Route: IV, Memoria ne (ANES) 04-19 Drug form: l 20:27: INJ, ONCE, Stop date: 04/19/19 14:27:00 TOOL AND DIE TECHNICIAN dexamethaso 2020-0 No Route: IV, Memoria ne (ANES) 04-19 Drug form: l 20:27: INJ, ONCE, Stop date: 04/19/19 14:27:00 TOOL AND DIE TECHNICIAN dexamethaso 2020-0 No Route: IV, Memoria ne (ANES) 04-19 Drug form: l 20:27: INJ, ONCE, Stop date: 04/19/19 14:27:00 TOOL AND DIE TECHNICIAN dexamethaso 2020-0 No Route: IV, Memoria ne (ANES) 04-19 Drug form: l 20:27: INJ, ONCE, Stop date: 04/19/19 14:27:00 TOOL AND DIE TECHNICIAN dexamethaso 2020-0 No Route: IV, Memoria ne (ANES) 04-19 Drug form: l 20:27: INJ, ONCE, Stop date: 04/19/19 14:27:00 TOOL AND DIE TECHNICIAN dexamethaso 2020-0 No Route: IV, Memoria ne (ANES) 04-19 Drug form: l 20:27: INJ, ONCE, Stop date: 04/19/19 14:27:00 TOOL AND DIE TECHNICIAN dexamethaso 2020-0 No Route: IV, Memoria ne (ANES) 2- Drug form: l 20:27: INJ, ONCE, Stop date: 04/19/19 14:27:00 TOOL AND DIE TECHNICIAN dexamethaso 2020-0 No Route: IV, Memoria ne (ANES) 2 Drug form: l 20:27: INJ, ONCE, Stop date: 04/19/19 14:27:00 TOOL AND DIE TECHNICIAN dexamethaso 2020-0 No Route: IV, Memoria ne (ANES) 04-19 Drug form: l 20:27: INJ, ONCE, Stop date: 04/19/19 14:27:00 TOOL AND DIE TECHNICIAN dexamethaso 2020-0 No Route: IV, Memoria ne (ANES) 04-19 Drug form: l 20:27: INJ, ONCE, Stop date: 04/19/19 14:27:00 TOOL AND DIE TECHNICIAN dexamethaso 2020-0 No Route: IV, Memoria ne (ANES) 04-19 Drug form: l 20:27: INJ, ONCE, Stop date: 04/19/19 14:27:00 TOOL AND DIE TECHNICIAN dexamethaso 2020-0 No Route: IV, Memoria ne (ANES) 04-19 Drug form: l 20:27: INJ, ONCE, Stop date: 04/19/19 14:27:00 TOOL AND DIE TECHNICIAN lidocaine 2020-0 No Route: IV, Me moria (ANES) 04-19 Drug form: l 20:22: INJ, ONCE, Stop date: 04/19/19 14:22:00 TOOL AND DIE TECHNICIAN propofol 2020-0 No Route: IV, Mem oria (ANES) 04-19 Drug form: l 20:22: INJ, ONCE, Stop date: 04/19/19 14:22:00 TOOL AND DIE TECHNICIAN rocuronium 2020-0 No Route: IV, M emoria (ANES) 04-19 Drug form: l 20:22: INJ, ONCE, Stop date: 04/19/19 14:22:00 TOOL AND DIE TECHNICIAN fentaNYL 2020-0 No Route: IV, Mem oria (ANES) 04-19 Drug form: l 20:22: INJ, ONCE, Stop date: 04/19/19 14:22:00 TOOL AND DIE TECHNICIAN ePHEDrine 2020-0 No Route: IV, Me moria (ANES) 2- Drug form: l 20:22: INJ, ONCE, Stop date: 04/19/19 14:22:00 TOOL AND DIE TECHNICIAN phenylephri 2020-0 No Route: IV, Memoria ne (ANES) 2- Drug form: l 20:22: INJ, ONCE, Stop date: 04/19/19 14:22:00 TOOL AND DIE TECHNICIAN lidocaine 2020-0 No Route: IV, Me moria (ANES) 2- Drug form: l 20:22: INJ, ONCE, Stop date: 04/19/19 14:22:00 TOOL AND DIE TECHNICIAN propofol 2020-0 No Route: IV, Mem oria (ANES) 2- Drug form: l 20:22: INJ, ONCE, Stop date: 04/19/19 14:22:00 TOOL AND DIE TECHNICIAN rocuronium 2020-0 No Route: IV, M emoria (ANES) 2- Drug form: l 20:22: INJ, ONCE, Stop date: 04/19/19 14:22:00 TOOL AND DIE TECHNICIAN fentaNYL 2020-0 No Route: IV, Mem oria (ANES) 2- Drug form: l 20:22: INJ, ONCE, Stop date: 04/19/19 14:22:00 TOOL AND DIE TECHNICIAN ePHEDrine 2020-0 No Route: IV, Me moria (ANES) 2- Drug form: l 20:22: INJ, ONCE, Stop date: 04/19/19 14:22:00 TOOL AND DIE TECHNICIAN phenylephri 2020-0 No Route: IV, Memoria ne (ANES) 2- Drug form: l 20:22: INJ, ONCE, Stop date: 04/19/19 14:22:00 TOOL AND DIE TECHNICIAN lidocaine 2020-0 No Route: IV, Me moria (ANES) 2- Drug form: l 20:22: INJ, ONCE, Stop date: 04/19/19 14:22:00 TOOL AND DIE TECHNICIAN propofol 2020-0 No Route: IV, Mem oria (ANES) 2- Drug form: l 20:22: INJ, ONCE, Stop date: 04/19/19 14:22:00 TOOL AND DIE TECHNICIAN rocuronium 2020-0 No Route: IV, M emoria (ANES) 2- Drug form: l 20:22: INJ, ONCE, Stop date: 04/19/19 14:22:00 TOOL AND DIE TECHNICIAN fentaNYL 2020-0 No Route: IV, Mem oria (ANES) 2- Drug form: l 20:22: INJ, ONCE, Stop date: 04/19/19 14:22:00 TOOL AND DIE TECHNICIAN ePHEDrine 2020-0 No Route: IV, Me moria (ANES) 2 Drug form: l 20:22: INJ, ONCE, Stop date: 04/19/19 14:22:00 TOOL AND DIE TECHNICIAN phenylephri 2020-0 No Route: IV, Memoria ne (ANES) 04-19 Drug form: l 20:22: INJ, ONCE, Stop date: 04/19/19 14:22:00 TOOL AND DIE TECHNICIAN lidocaine 2020-0 No Route: IV, Me moria (ANES) 04-19 Drug form: l 20:22: INJ, ONCE, Stop date: 04/19/19 14:22:00 TOOL AND DIE TECHNICIAN propofol 2020-0 No Route: IV, Mem oria (ANES) 04-19 Drug form: l 20:22: INJ, ONCE, Stop date: 04/19/19 14:22:00 TOOL AND DIE TECHNICIAN rocuronium 2020-0 No Route: IV, M emoria (ANES) 04-19 Drug form: l 20:22: INJ, ONCE, Stop date: 04/19/19 14:22:00 TOOL AND DIE TECHNICIAN fentaNYL 2020-0 No Route: IV, Mem oria (ANES) 2- Drug form: l 20:22: INJ, ONCE, Stop date: 04/19/19 14:22:00 TOOL AND DIE TECHNICIAN ePHEDrine 2020-0 No Route: IV, Me moria (ANES) 2- Drug form: l 20:22: INJ, ONCE, Stop date: 04/19/19 14:22:00 TOOL AND DIE TECHNICIAN phenylephri 2020-0 No Route: IV, Memoria ne (ANES) 2- Drug form: l 20:22: INJ, ONCE, Stop date: 04/19/19 14:22:00 TOOL AND DIE TECHNICIAN lidocaine 2020-0 No Route: IV, Me moria (ANES) 2- Drug form: l 20:22: INJ, ONCE, Stop date: 04/19/19 14:22:00 TOOL AND DIE TECHNICIAN propofol 2020-0 No Route: IV, Mem oria (ANES) 2- Drug form: l 20:22: INJ, ONCE, Stop date: 04/19/19 14:22:00 TOOL AND DIE TECHNICIAN rocuronium 2020-0 No Route: IV, M emoria (ANES) 2- Drug form: l 20:22: INJ, ONCE, Stop date: 04/19/19 14:22:00 TOOL AND DIE TECHNICIAN fentaNYL 2020-0 No Route: IV, Mem oria (ANES) 2- Drug form: l 20:22: INJ, ONCE, Stop date: 04/19/19 14:22:00 TOOL AND DIE TECHNICIAN ePHEDrine 2020-0 No Route: IV, Me moria (ANES) 2- Drug form: l 20:22: INJ, ONCE, Stop date: 04/19/19 14:22:00 TOOL AND DIE TECHNICIAN phenylephri 2020-0 No Route: IV, Memoria ne (ANES) 2- Drug form: l 20:22: INJ, ONCE, Stop date: 04/19/19 14:22:00 TOOL AND DIE TECHNICIAN lidocaine 2020-0 No Route: IV, Me moria (ANES) 2- Drug form: l 20:22: INJ, ONCE, Stop date: 04/19/19 14:22:00 TOOL AND DIE TECHNICIAN propofol 2020-0 No Route: IV, Mem oria (ANES) 2- Drug form: l 20:22: INJ, ONCE, Stop date: 04/19/19 14:22:00 TOOL AND DIE TECHNICIAN rocuronium 2020-0 No Route: IV, M emoria (ANES) 2- Drug form: l 20:22: INJ, ONCE, Stop date: 04/19/19 14:22:00 TOOL AND DIE TECHNICIAN fentaNYL 2020-0 No Route: IV, Mem oria (ANES) 2- Drug form: l 20:22: INJ, ONCE, Stop date: 04/19/19 14:22:00 TOOL AND DIE TECHNICIAN ePHEDrine 2020-0 No Route: IV, Me moria (ANES) 2- Drug form: l 20:22: INJ, ONCE, Stop date: 04/19/19 14:22:00 TOOL AND DIE TECHNICIAN phenylephri 2020-0 No Route: IV, Memoria ne (ANES) 2- Drug form: l 20:22: INJ, ONCE, Stop date: 04/19/19 14:22:00 TOOL AND DIE TECHNICIAN lidocaine 2020-0 No Route: IV, Me moria (ANES) 2- Drug form: l 20:22: INJ, ONCE, Stop date: 04/19/19 14:22:00 TOOL AND DIE TECHNICIAN propofol 2020-0 No Route: IV, Mem oria (ANES) 2- Drug form: l 20:22: INJ, ONCE, Stop date: 04/19/19 14:22:00 TOOL AND DIE TECHNICIAN rocuronium 2020-0 No Route: IV, M emoria (ANES) 2- Drug form: l 20:22: INJ, ONCE, Stop date: 04/19/19 14:22:00 TOOL AND DIE TECHNICIAN fentaNYL 2020-0 No Route: IV, Mem oria (ANES) 2 Drug form: l 20:22: INJ, ONCE, Stop date: 04/19/19 14:22:00 TOOL AND DIE TECHNICIAN ePHEDrine 2020-0 No Route: IV, Me moria (ANES) 2- Drug form: l 20:22: INJ, ONCE, Stop date: 04/19/19 14:22:00 TOOL AND DIE TECHNICIAN phenylephri 2020-0 No Route: IV, Memoria ne (ANES) 2- Drug form: l 20:22: INJ, ONCE, Stop date: 04/19/19 14:22:00 TOOL AND DIE TECHNICIAN lidocaine 2020-0 No Route: IV, Me moria (ANES) 2- Drug form: l 20:22: INJ, ONCE, Stop date: 04/19/19 14:22:00 TOOL AND DIE TECHNICIAN propofol 2020-0 No Route: IV, Mem oria (ANES) 2- Drug form: l 20:22: INJ, ONCE, Stop date: 04/19/19 14:22:00 TOOL AND DIE TECHNICIAN rocuronium 2020-0 No Route: IV, M emoria (ANES) 2- Drug form: l 20:22: INJ, ONCE, Stop date: 04/19/19 14:22:00 TOOL AND DIE TECHNICIAN fentaNYL 2020-0 No Route: IV, Mem oria (ANES) 2- Drug form: l 20:22: INJ, ONCE, Stop date: 04/19/19 14:22:00 TOOL AND DIE TECHNICIAN ePHEDrine 2020-0 No Route: IV, Me moria (ANES) 2- Drug form: l 20:22: INJ, ONCE, Stop date: 04/19/19 14:22:00 TOOL AND DIE TECHNICIAN phenylephri 2020-0 No Route: IV, Memoria ne (ANES) 2- Drug form: l 20:22: INJ, ONCE, Stop date: 04/19/19 14:22:00 TOOL AND DIE TECHNICIAN lidocaine 2020-0 No Route: IV, Me moria (ANES) 2- Drug form: l 20:22: INJ, ONCE, Stop date: 04/19/19 14:22:00 TOOL AND DIE TECHNICIAN propofol 2020-0 No Route: IV, Mem oria (ANES) 2- Drug form: l 20:22: INJ, ONCE, Stop date: 04/19/19 14:22:00 TOOL AND DIE TECHNICIAN rocuronium 2020-0 No Route: IV, M emoria (ANES) 2- Drug form: l 20:22: INJ, ONCE, Stop date: 04/19/19 14:22:00 TOOL AND DIE TECHNICIAN fentaNYL 2020-0 No Route: IV, Mem oria (ANES) 2- Drug form: l 20:22: INJ, ONCE, Stop date: 04/19/19 14:22:00 TOOL AND DIE TECHNICIAN ePHEDrine 2020-0 No Route: IV, Me moria (ANES) 2- Drug form: l 20:22: INJ, ONCE, Stop date: 04/19/19 14:22:00 TOOL AND DIE TECHNICIAN phenylephri 2020-0 No Route: IV, Memoria ne (ANES) 2- Drug form: l 20:22: INJ, ONCE, Stop date: 04/19/19 14:22:00 TOOL AND DIE TECHNICIAN lidocaine 2020-0 No Route: IV, Me moria (ANES) 2- Drug form: l 20:22: INJ, ONCE, Stop date: 04/19/19 14:22:00 TOOL AND DIE TECHNICIAN propofol 2020-0 No Route: IV, Mem oria (ANES) 2- Drug form: l 20:22: INJ, ONCE, Stop date: 04/19/19 14:22:00 TOOL AND DIE TECHNICIAN rocuronium 2020-0 No Route: IV, M emoria (ANES) 2- Drug form: l 20:22: INJ, ONCE, Stop date: 04/19/19 14:22:00 TOOL AND DIE TECHNICIAN fentaNYL 2020-0 No Route: IV, Mem oria (ANES) 2- Drug form: l 20:22: INJ, ONCE, Stop date: 04/19/19 14:22:00 TOOL AND DIE TECHNICIAN ePHEDrine 2020-0 No Route: IV, Me moria (ANES) 2- Drug form: l 20:22: INJ, ONCE, Stop date: 04/19/19 14:22:00 TOOL AND DIE TECHNICIAN phenylephri 2020-0 No Route: IV, Memoria ne (ANES) 2- Drug form: l 20:22: INJ, ONCE, Stop date: 04/19/19 14:22:00 TOOL AND DIE TECHNICIAN lidocaine 2020-0 No Route: IV, Me moria (ANES) 2- Drug form: l 20:22: INJ, ONCE, Stop date: 04/19/19 14:22:00 TOOL AND DIE TECHNICIAN propofol 2020-0 No Route: IV, Mem oria (ANES) 2- Drug form: l 20:22: INJ, ONCE, Stop date: 04/19/19 14:22:00 TOOL AND DIE TECHNICIAN rocuronium 2020-0 No Route: IV, M emoria (ANES) 2- Drug form: l 20:22: INJ, ONCE, Stop date: 04/19/19 14:22:00 TOOL AND DIE TECHNICIAN fentaNYL 2020-0 No Route: IV, Mem oria (ANES) 2- Drug form: l 20:22: INJ, ONCE, Stop date: 04/19/19 14:22:00 TOOL AND DIE TECHNICIAN ePHEDrine 2020-0 No Route: IV, Me moria (ANES) 2-07 Drug form: l 20:22: INJ, ONCE, Stop date: 04/19/19 14:22:00 TOOL AND DIE TECHNICIAN phenylephri 2020-0 No Route: IV, Memoria ne (ANES) 2- Drug form: l 20:22: INJ, ONCE, Stop date: 04/19/19 14:22:00 TOOL AND DIE TECHNICIAN lidocaine 2020-0 No Route: IV, Me moria (ANES) 2- Drug form: l 20:22: INJ, ONCE, Stop date: 04/19/19 14:22:00 TOOL AND DIE TECHNICIAN propofol 2020-0 No Route: IV, Mem oria (ANES) 2- Drug form: l 20:22: INJ, ONCE, Stop date: 04/19/19 14:22:00 TOOL AND DIE TECHNICIAN rocuronium 2020-0 No Route: IV, M emoria (ANES) 2- Drug form: l 20:22: INJ, ONCE, Stop date: 04/19/19 14:22:00 TOOL AND DIE TECHNICIAN fentaNYL 2020-0 No Route: IV, Mem oria (ANES) 2- Drug form: l 20:22: INJ, ONCE, Stop date: 04/19/19 14:22:00 TOOL AND DIE TECHNICIAN ePHEDrine 2020-0 No Route: IV, Me moria (ANES) 2- Drug form: l 20:22: INJ, ONCE, Stop date: 04/19/19 14:22:00 TOOL AND DIE TECHNICIAN phenylephri 2020-0 No Route: IV, Memoria ne (ANES) 2- Drug form: l 20:22: INJ, ONCE, Stop date: 04/19/19 14:22:00 TOOL AND DIE TECHNICIAN lidocaine 2020-0 No Route: IV, Me moria (ANES) 2- Drug form: l 20:22: INJ, ONCE, Stop date: 04/19/19 14:22:00 TOOL AND DIE TECHNICIAN propofol 2020-0 No Route: IV, Mem oria (ANES) 2- Drug form: l 20:22: INJ, ONCE, Stop date: 04/19/19 14:22:00 TOOL AND DIE TECHNICIAN rocuronium 2020-0 No Route: IV, M emoria (ANES) 2-07 Drug form: l 20:22: INJ, ONCE, Stop date: 04/19/19 14:22:00 TOOL AND DIE TECHNICIAN fentaNYL 2020-0 No Route: IV, Mem oria (ANES) 2- Drug form: l 20:22: INJ, ONCE, Stop date: 04/19/19 14:22:00 TOOL AND DIE TECHNICIAN ePHEDrine 2020-0 No Route: IV, Me moria (ANES) 2- Drug form: l 20:22: INJ, ONCE, Stop date: 04/19/19 14:22:00 TOOL AND DIE TECHNICIAN phenylephri 2020-0 No Route: IV, Memoria ne (ANES) 04-19 Drug form: l 20:22: INJ, ONCE, Stop date: 04/19/19 14:22:00 TOOL AND DIE TECHNICIAN lidocaine 2020-0 No Route: IV, Me moria (ANES) 04-19 Drug form: l 20:22: INJ, ONCE, Stop date: 04/19/19 14:22:00 TOOL AND DIE TECHNICIAN propofol 2020-0 No Route: IV, Mem oria (ANES) 04-19 Drug form: l 20:22: INJ, ONCE, Stop date: 04/19/19 14:22:00 TOOL AND DIE TECHNICIAN rocuronium 2020-0 No Route: IV, M emoria (ANES) 04-19 Drug form: l 20:22: INJ, ONCE, Stop date: 04/19/19 14:22:00 TOOL AND DIE TECHNICIAN fentaNYL 2020-0 No Route: IV, Mem oria (ANES) 04-19 Drug form: l 20:22: INJ, ONCE, Stop date: 04/19/19 14:22:00 TOOL AND DIE TECHNICIAN ePHEDrine 2020-0 No Route: IV, Me moria (ANES) 04-19 Drug form: l 20:22: INJ, ONCE, Stop date: 04/19/19 14:22:00 TOOL AND DIE TECHNICIAN phenylephri 2020-0 No Route: IV, Memoria ne (ANES) 04-19 Drug form: l 20:22: INJ, ONCE, Stop date: 04/19/19 14:22:00 TOOL AND DIE TECHNICIAN Sodium 2020-0 No Route: IV, Memor ia Chloride 2- Total l 0.9% IV 19:17: Volume: Yovani (ANES) 500 00 500, Start mL date: 04/19/19 13:17:00 TOOL AND DIE TECHNICIAN, Stop date: 04/19/19 14:17:00 TOOL AND DIE TECHNICIAN Sodium 2020-0 No Route: IV, Memor ia Chloride 2-07 Total l 0.9% IV 19:17: Volume: Hooper (ANES) 500 00 500, Start mL date: 04/19/19 13:17:00 TOOL AND DIE TECHNICIAN, Stop date: 04/19/19 14:17:00 TOOL AND DIE TECHNICIAN Sodium 2020-0 No Route: IV, Memor ia Chloride 2-07 Total l 0.9% IV 19:17: Volume: Hooper (ANES) 500 00 500, Start mL date: 04/19/19 13:17:00 TOOL AND DIE TECHNICIAN, Stop date: 04/19/19 14:17:00 TOOL AND DIE TECHNICIAN Sodium 2020-0 No Route: IV, Memor ia Chloride 2-07 Total l 0.9% IV 19:17: Volume: Yovani (ANES) 500 00 500, Start mL date: 04/19/19 13:17:00 TOOL AND DIE TECHNICIAN, Stop date: 04/19/19 14:17:00 TOOL AND DIE TECHNICIAN Sodium 2020-0 No Route: IV, Memor ia Chloride 2-07 Total l 0.9% IV 19:17: Volume: Hooper (ANES) 500 00 500, Start mL date: 04/19/19 13:17:00 TOOL AND DIE TECHNICIAN, Stop date: 04/19/19 14:17:00 TOOL AND DIE TECHNICIAN Sodium 2020-0 No Route: IV, Memor ia Chloride 2-07 Total l 0.9% IV 19:17: Volume: Yovani (ANES) 500 00 500, Start mL date: 04/19/19 13:17:00 TOOL AND DIE TECHNICIAN, Stop date: 04/19/19 14:17:00 TOOL AND DIE TECHNICIAN Sodium 2020-0 No Route: IV, Memor ia Chloride 2-07 Total l 0.9% IV 19:17: Volume: Yovani (ANES) 500 00 500, Start mL date: 04/19/19 13:17:00 TOOL AND DIE TECHNICIAN, Stop date: 04/19/19 14:17:00 TOOL AND DIE TECHNICIAN Sodium 2020-0 No Route: IV, Memor ia Chloride 2-07 Total l 0.9% IV 19:17: Volume: Hooper (ANES) 500 00 500, Start mL date: 04/19/19 13:17:00 TOOL AND DIE TECHNICIAN, Stop date: 04/19/19 14:17:00 TOOL AND DIE TECHNICIAN Sodium 2020-0 No Route: IV, Memor ia Chloride 2-07 Total l 0.9% IV 19:17: Volume: Hooper (ANES) 500 00 500, Start mL date: 04/19/19 13:17:00 TOOL AND DIE TECHNICIAN, Stop date: 04/19/19 14:17:00 TOOL AND DIE TECHNICIAN Sodium 2020-0 No Route: IV, Memor ia Chloride 2-07 Total l 0.9% IV 19:17: Volume: Hooper (ANES) 500 00 500, Start mL date: 04/19/19 13:17:00 TOOL AND DIE TECHNICIAN, Stop date: 04/19/19 14:17:00 TOOL AND DIE TECHNICIAN Sodium 2020-0 No Route: IV, Memor ia Chloride 2-07 Total l 0.9% IV 19:17: Volume: Hooper (ANES) 500 00 500, Start mL date: 04/19/19 13:17:00 TOOL AND DIE TECHNICIAN, Stop date: 04/19/19 14:17:00 TOOL AND DIE TECHNICIAN Sodium 2020-0 No Route: IV, Memor ia Chloride 2-07 Total l 0.9% IV 19:17: Volume: Hooper (ANES) 500 00 500, Start mL date: 04/19/19 13:17:00 TOOL AND DIE TECHNICIAN, Stop date: 04/19/19 14:17:00 TOOL AND DIE TECHNICIAN Sodium 2020-0 No Route: IV, Memor ia Chloride 2-07 Total l 0.9% IV 19:17: Volume: Hooper (ANES) 500 00 500, Start mL date: 04/19/19 13:17:00 TOOL AND DIE TECHNICIAN, Stop date: 04/19/19 14:17:00 TOOL AND DIE TECHNICIAN Sodium 2020-0 No Route: IV, Memor ia Chloride 2-07 Total l 0.9% IV 19:17: Volume: Hooper (ANES) 500 00 500, Start mL date: 04/19/19 13:17:00 TOOL AND DIE TECHNICIAN, Stop date: 04/19/19 14:17:00 TOOL AND DIE TECHNICIAN Home 2020-0 Yes Refill(s) Memoria Medication 2-07 0 l 18:38: Yovani 00 gabapentin 2020-0 Yes PO, 0 Memori a 2-07 Refill(s) l 18:38: [place] 00 Home 2020-0 Yes Refill(s) Memoria Medication 2-07 0 l 18:38: [place] 00 gabapentin 2020-0 Yes PO, 0 Memori a 2-07 Refill(s) l 18:38: Yovani 00 Home 2020-0 Yes Refill(s) Memoria Medication 2-07 0 l 18:38: gabapentin 2020-0 Yes PO, 0 Memori a 2-07 Refill(s) l 18:38: Home 2020-0 Yes Refill(s) Memoria Medication 2-07 0 l 18:38: gabapentin 2020-0 Yes PO, 0 Memori a 2-07 Refill(s) l 18:38: Home 2020-0 Yes Refill(s) Memoria Medication 2-07 0 l 18:38: gabapentin 2020-0 Yes PO, 0 Memori a 2-07 Refill(s) l 18:38: Home 2020-0 Yes Refill(s) Memoria Medication 2-07 0 l 18:38: gabapentin 2020-0 Yes PO, 0 Memori a 2-07 Refill(s) l 18:38: Home 2020-0 Yes Refill(s) Memoria Medication 2-07 0 l 18:38: gabapentin 2020-0 Yes PO, 0 Memori a 2-07 Refill(s) l 18:38: Home 2020-0 Yes Refill(s) Memoria Medication 2-07 0 l 18:38: gabapentin 2020-0 Yes PO, 0 Memori a 2-07 Refill(s) l 18:38: Home 2020-0 Yes Refill(s) Memoria Medication 2-07 0 l 18:38: gabapentin 2020-0 Yes PO, 0 Memori a 2-07 Refill(s) l 18:38: Home 2020-0 Yes Refill(s) Memoria Medication 2-07 0 l 18:38: gabapentin 2020-0 Yes PO, 0 Memori a 2-07 Refill(s) l 18:38: Home 2020-0 Yes Refill(s) Memoria Medication 2-07 0 l 18:38: gabapentin 2020-0 Yes PO, 0 Memori a 2-07 Refill(s) l 18:38: Home 2020-0 Yes Refill(s) Memoria Medication 2-07 0 l 18:38: gabapentin 2020-0 Yes PO, 0 Memori a 2-07 Refill(s) l 18:38: [place] 00 Home 2020-0 Yes Refill(s) Memoria Medication 2-07 0 l 18:38: Yovani 00 gabapentin 2020-0 Yes PO, 0 Memori a 2-07 Refill(s) l 18:38: Yovani 00 Home 2020-0 Yes Refill(s) Memoria Medication 2-07 0 l 18:38: [place] 00 gabapentin 2020-0 Yes PO, 0 Memori a 2-07 Refill(s) l 18:38: [place] 00 calcitriol 2016-03 Yes .25ug QD Take 0.[address] [facility] (ROCALTROL) 2-15 [facility]cg [facility].25 MCG 07:04: mouth Medical capsule 06 daily. [place] valsartan 2016-03 Yes 160mg QD Take [address] [facility] (DIOVAN) 2-15 [facility] 160 MG 07:04: mouth Medical tablet 06 daily. [place] apixaban 2016-03 Yes 5mg Q.5D Take [address] [facility] (ELIQUIS) 5 2-15 by mouth 2 [facility] mg Tab 07:04: (two) Medical tablet 06 times Center daily. calcitriol 2016-03 Yes .25ug QD Take 0.[address] [facility] (ROCALTROL) 2-15 [facility]cg [facility] 0.25 MCG 07:04: mouth Medical capsule 06 daily. [place] valsartan 2016-03 Yes 160mg QD Take [address] [facility] (DIOVAN) 2-15 [facility] 160 MG 07:04: mouth Medical tablet 06 daily. [place] apixaban 2016-03 Yes 5mg Q.5D Take [address] [facility] (ELIQUIS) 5 2-15 by mouth 2 [facility] mg Tab 07:04: (two) Medical tablet 06 times Center daily. calcitriol 2016-03 Yes .25ug QD Take 0.[address] [facility] (ROCALTROL) 2-15 [facility]cg [facility] 0.25 MCG 07:04: mouth Medical capsule 06 daily. [place] valsartan 2016-03 Yes 160mg QD Take [address] [facility] (DIOVAN) 2-15 [facility] 160 MG 07:04: mouth Medical tablet 06 daily. [place] apixaban 2016-03 Yes 5mg Q.5D Take [address] [facility] (ELIQUIS) 5 2-15 by mouth 2 [facility] mg Tab 07:04: (two) Medical tablet 06 times Center daily. calcitriol 2016-03 Yes .25ug QD Take 0.[address] [facility] (ROCALTROL) 2-15 [facility]cg [facility] 0.25 MCG 07:04: mouth Medical capsule 06 daily. [place] valsartan 2016-03 Yes 160mg QD Take [address] [facility] (DIOVAN) 2-15 [facility] 160 MG 07:04: mouth Medical tablet 06 daily. [place] apixaban 2016-03 Yes 5mg Q.5D Take [address] [facility] (ELIQUIS) 5 2-15 by mouth 2 [facility] mg Tab 07:04: (two) Medical tablet 06 times Center daily. melatonin 3 2016-03 Yes 3mg Take [address] [facility] mg Tab 1-15 tablet (3 [facility]: mg total) [facility] 00 by mouth Center every night as needed. melatonin 3 2016-03 Yes 3mg Take [address] [facility] mg Tab 1-15 tablet (3 [facility]: mg total) [facility] by [facility] every night as needed. melatonin 3 2016-03 Yes 3mg Take [address] [facility] mg Tab 1-15 tablet (3 [facility]: mg total) [facility] by mouth [facility] every night as needed. melatonin 3 2016-03 Yes 3mg Take [address] [facility] mg Tab 1-15 tablet (3 [facility]: mg total) [facility] 00 by mouth Center every night as needed. VELPHORO 2016-03 Yes 1{tbl} Q.5D Take [facility] tablet by [facility]: mouth 2 [facility] 00 (two) Center times daily . VELPHORO 2016-03 Yes 1{tbl} Q.5D Take 1 [facility] Chew 1-03 tablet by [facility] 00:[facility]: mouth 2 Medical 00 (two) Center times daily . VELPHORO 2016-03 Yes 1{tbl} Q.5D Take 1 [facility] Chew 1-03 tablet by [facility] 00:00: mouth 2 Medical 00 (two) Center times daily . VELPHORO 2016-03 Yes 1{tbl} Q.5D Take 1 [facility] Chew 1-03 tablet by [facility] 00:00: mouth 2 Medical 00 (two) Center times daily . SENSIPAR 30 1 Yes 30mg QD Take [address] [facility] mg tablet 0-03 [facility]: daily . [address] [facility] 30 2016-03 Yes 30mg QD Take [address] [facility] mg tablet 0-03 by [facility]: daily . [address] 30 2016-03 Yes 30mg QD Take [address] [facility] mg tablet 0-03 [facility]: daily . [address] [facility] 30 2016-03 Yes 30mg QD Take [address] [facility] mg tablet 0-03 by [facility]: daily . [address] Hydromorpho 2016-0 No 0.3 mg, Mem oria ne 4-20 0.3 mL, l 20:49: Route: Yovani 00 IVP, Drug form: INJ, Q3H, Dosing Weight 86.364, kg, PRN Pain Score 4-6, Start date: 07/01/15 15:49:00 CDT, Duration: 30 day, Stop date: 07/31/15 15:48:00 CDT Hydromorpho 2016-0 No 0.3 mg, Mem oria ne 4-20 0.3 mL, l 20:49: Route: [place] 00 IVP, Drug form: INJ, Q3H, Dosing Weight 86.364, kg, PRN Pain Score 4-6, Start date: 07/01/15 15:49:00 CDT, Duration: 30 day, Stop date: 07/31/15 15:48:00 CDT Hydromorpho 2016-0 No 0.3 mg, Mem oria ne 4-20 0.3 mL, l 20:49: Route: Yovani 00 IVP, Drug form: INJ, Q3H, Dosing Weight 86.364, kg, PRN Pain Score 4-6, Start date: 07/01/15 15:49:00 CDT, Duration: 30 day, Stop date: 07/31/15 15:48:00 CDT Hydromorpho 2016-0 No 0.3 mg, Mem oria ne 4-20 0.3 mL, l 20:49: Route: [place] 00 IVP, Drug form: INJ, Q3H, Dosing Weight 86.364, kg, PRN Pain Score 4-6, Start date: 07/01/15 15:49:00 CDT, Duration: 30 day, Stop date: 07/31/15 15:48:00 CDT Hydromorpho 2016-0 No 0.3 mg, Mem oria ne 4-20 0.3 mL, l 20:49: Route: Yovani 00 IVP, Drug form: INJ, Q3H, Dosing Weight 86.364, kg, PRN Pain Score 4-6, Start date: 07/01/15 15:49:00 CDT, Duration: 30 day, Stop date: 07/31/15 15:48:00 CDT Hydromorpho 2016-0 No 0.3 mg, Mem oria ne 4-20 0.3 mL, l 20:49: Route: [place] 00 IVP, Drug form: INJ, Q3H, Dosing Weight 86.364, kg, PRN Pain Score 4-6, Start date: 07/01/15 15:49:00 CDT, Duration: 30 day, Stop date: 07/31/15 15:48:00 CDT Hydromorpho 2016-0 No 0.3 mg, Mem oria ne 4-20 0.3 mL, l 20:49: Route: Yovani 00 IVP, Drug form: INJ, Q3H, Dosing Weight 86.364, kg, PRN Pain Score 4-6, Start date: 07/01/15 15:49:00 CDT, Duration: 30 day, Stop date: 07/31/15 15:48:00 CDT Hydromorpho 2016-0 No 0.3 mg, Mem oria ne 4-20 0.3 mL, l 20:49: Route: Yovani 00 IVP, Drug form: INJ, Q3H, Dosing Weight 86.364, kg, PRN Pain Score 4-6, Start date: 07/01/15 15:49:00 CDT, Duration: 30 day, Stop date: 07/31/15 15:48:00 CDT Hydromorpho 2016-0 No 0.3 mg, Mem oria ne 4-20 0.3 mL, l 20:49: Route: [place] 00 IVP, Drug form: INJ, Q3H, Dosing Weight 86.364, kg, PRN Pain Score 4-6, Start date: 07/01/15 15:49:00 CDT, Duration: 30 day, Stop date: 07/31/15 15:48:00 CDT Hydromorpho 2016-0 No 0.3 mg, Mem oria ne 4-20 0.3 mL, l 20:49: Route: Yovani 00 IVP, Drug form: INJ, Q3H, Dosing Weight 86.364, kg, PRN Pain Score 4-6, Start date: 07/01/15 15:49:00 CDT, Duration: 30 day, Stop date: 07/31/15 15:48:00 CDT Hydromorpho 2016-0 No 0.3 mg, Mem oria ne 4-20 0.3 mL, l 20:49: Route: Yovani 00 IVP, Drug form: INJ, Q3H, Dosing Weight 86.364, kg, PRN Pain Score 4-6, Start date: 07/01/15 15:49:00 CDT, Duration: 30 day, Stop date: 07/31/15 15:48:00 CDT Hydromorpho 2016-0 No 0.3 mg, Mem oria ne 4-20 0.3 mL, l 20:49: Route: Hooper 00 IVP, Drug form: INJ, Q3H, Dosing Weight 86.364, kg, PRN Pain Score 4-6, Start date: 07/01/15 15:49:00 CDT, Duration: 30 day, Stop date: 07/31/15 15:48:00 CDT Hydromorpho 2016-0 No 0.3 mg, Mem oria ne 4-20 0.3 mL, l 20:49: Route: Yovani 00 IVP, Drug form: INJ, Q3H, Dosing Weight 86.364, kg, PRN Pain Score 4-6, Start date: 07/01/15 15:49:00 CDT, Duration: 30 day, Stop date: 07/31/15 15:48:00 CDT Hydromorpho 2016-0 No 0.3 mg, Mem oria ne 4-20 0.3 mL, l 20:49: Route: Hooper 00 IVP, Drug form: INJ, Q3H, Dosing Weight [...] Memoria 4-20 (Same as: l 20:39: Sublimaze) Preservati ve free. Oxycodone No Notes: Memori a 4-20 [...] Memoria 4-20 (Same as: l 20:39: Sublimaze) Preservati ve free. Oxycodone No Notes: Memori a 4-20 [...] Memoria 4-20 (Same as: l 20:39: Sublimaze) Preservati ve free. Oxycodone No Notes: Memori a 4-20 (Same as: l 20:39: Roxicodone ) Ketorolac No 4 days Memor ia 4-20 l 20:39: MEDICATION WASTE Product Size: 30 mg Product Wasted: ___ mg Promethazin 2015- No 6.25 mg, Me moria e 4-20 [...] Memoria 4-20 (Same as: l 20:39: Sublimaze) Preservati ve free. Oxycodone No Notes: Memori a 4-20 [...] Memoria 4-20 (Same as: l 20:39: Sublimaze) Preservati ve free. Oxycodone No Notes: Memori a 4-20 (Same as: l 20:39: Roxicodone ) Ketorolac No 4 days Memor ia 4-20 l 20:39: MEDICATION WASTE Product Size: 30 mg Product Wasted: ___ mg Promethazin 2015- No 6.25 mg, Me moria e 20 Route: l 20:39: IVPB, ONCE, Dosing Weight 94.119, kg, PRN Nausea & Vomiting, Start date: 07/01/15 15:39:00 CDT Flumazenil No Notes: Memor ia 4-20 (Same as: l 20:39: Romazicon) Glycopyrrol No Notes: Juan Manuel héctor ate 4-20 (Same as: l 20:39: Robinul) Diphenhydra No Notes: Juan Manuel hcétor mine 4-20 (Same as: l 20:39: Benadryl) [...] (Same l 20:39: as:MORPhin e Sulfate) Hydromorpho 2016- No 0.5 mg, Mem oria ne 4-20 0.5 mL, l 20:39: Route: IVP, Drug form: INJ, Q5Min, Dosing Weight 94.119, kg, PRN Pain Score 7-10, Start date: 07/01/15 15:39:00 CDT, Duration: 4 doses or times, Stop date: Limited # of times Fentanyl No Notes: Memoria 4-20 (Same as: l 20:39: Sublimaze) Preservati ve free. Oxycodone No Notes: Memori a 4-20 (Same as: l 20:39: Roxicodone ) Ketorolac No 4 days Memor ia 4-20 l 20:39: MEDICATION WASTE Product Size: 30 mg Product Wasted: ___ mg Promethazin 2015- No 6.25 mg, Me moria e 20 [...] Memoria 4-20 (Same as: l 20:39: Sublimaze) Preservati ve free. Oxycodone No Notes: Memori a 4-20 (Same as: l 20:39: Roxicodone ) Ketorolac No 4 days Memor ia 4-20 l 20:39: MEDICATION WASTE Product Size: 30 mg Product Wasted: ___ mg Promethazin 2016- No 6.25 mg, Me moria e 4-20 [...] Memoria 4-20 (Same as: l 20:39: Sublimaze) Preservati ve free. Oxycodone No Notes: Memori a 4-20 [...] Memoria 4-20 (Same as: l 20:39: Sublimaze) Preservati ve free. Oxycodone No Notes: Memori a 4-20 [...] & Vomiting, Start date: 07/01/15 15:39:00 CDT Promethazin No 6.25 mg, Me moria [...] mine 4-20 (Same as: l 20:39: Benadryl) Naloxone No Notes: Memoria 4-20 Same as l 20:39: Narcan Dexamethaso No Notes: Juan Manuel héctor ne [...] Memoria 4-20 (Same as: l 20:39: Sublimaze) Preservati ve free. Oxycodone No Notes: Memori a 4-20 (Same as: l 20:39: Roxicodone ) Metoprolol 2015- No Notes: Memor ia 4-20 (Same as: l 20:39: Lopressor) Push over 2 minutes Ketorolac 2015- No 4 days Memor ia 4-20 l 20:39: MEDICATION WASTE Product Size: 30 mg Product Wasted: ___ mg Hydralazine 2016- No Notes: Juan Manuel héctor 4-20 (Same [...] Memoria 4-20 (Same as: l 20:39: Sublimaze) Preservati ve free. Oxycodone No Notes: Memori a 4-20 (Same as: l 20:39: Roxicodone ) Ketorolac 2015-0 No 4 days Memor ia 4-20 l 20:39: MEDICATION WASTE Product Size: 30 mg Product Wasted: ___ mg Promethazin 2016- No 6.25 mg, Me moria e 4-20 [...] Memoria 4-20 (Same as: l 20:39: Sublimaze) Preservati ve free. Oxycodone No Notes: Memori a 4-20 [...] Memoria 4-20 (Same as: l 20:39: Sublimaze) Preservati ve free. Oxycodone No Notes: Memori a 4-20 [...] Memoria 4-20 (Same as: l 20:39: Sublimaze) Preservati ve free. Oxycodone No Notes: Memori a 4-20 [...] CDT, Stop date: 07/01/15 12:20:00 CDT Zofran 2016-0 No 4 mg, Memoria 4-20 Route: l 17:20: IVP, ONCE, Dosing Weight 94.119, kg, Start date: 07/01/15 12:20:00 CDT, Stop date: 07/01/15 12:20:00 CDT Zofran 2016-0 No 4 mg, Memoria 4-20 Route: l 17:20: IVP, ONCE, Yovani 00 Dosing Weight 94.119, kg, Start date: 07/01/15 12:20:00 CDT, Stop date: 07/01/15 12:20:00 CDT Zofran 2016-0 No 4 mg, Memoria 4-20 Route: l 17:20: IVP, ONCE, Dosing Weight 94.119, kg, Start date: 07/01/15 12:20:00 CDT, Stop date: 07/01/15 12:20:00 CDT Zofran 2016-0 No 4 mg, Memoria 4-20 Route: l 17:20: IVP, ONCE, Dosing Weight 94.119, kg, Start date: 07/01/15 12:20:00 CDT, Stop date: 07/01/15 12:20:00 CDT Zofran 2016-0 No 4 mg, Memoria 4-20 Route: l 17:20: IVP, ONCE, Dosing Weight 94.119, kg, Start date: 07/01/15 12:20:00 CDT, Stop date: 07/01/15 12:20:00 CDT Zofran 2016-0 No 4 mg, Memoria 4-20 Route: l 17:20: IVP, ONCE, Dosing Weight 94.119, kg, Start date: 07/01/15 12:20:00 CDT, Stop date: 07/01/15 12:20:00 CDT Zofran 2016-0 No 4 mg, Memoria 4-20 Route: l 17:20: IVP, ONCE, Dosing Weight 94.119, kg, Start date: 07/01/15 12:20:00 CDT, Stop date: 07/01/15 12:20:00 CDT Zofran 2016-0 No 4 mg, Memoria 4-20 Route: l 17:20: IVP, ONCE, Hooper 00 Dosing Weight 94.119, kg, Start date: 07/01/15 12:20:00 CDT, Stop date: 07/01/15 12:20:00 CDT Zofran 2016-0 No 4 mg, Memoria 4-20 Route: l 17:20: IVP, ONCE, Hooper 00 Dosing Weight 94.119, kg, Start date: 07/01/15 12:20:00 CDT, Stop date: 07/01/15 12:20:00 CDT Zofran 2016-0 No 4 mg, Memoria 4-20 Route: l [...] 4-20 Rate: 25 l 0.0014 15:21: ml/hr, Hooper MEQ/ML / 00 Infuse Potassium over: 40 [...] 4-20 Rate: 25 l 0.0014 15:21: ml/hr, Hooper MEQ/ML / 00 Infuse Potassium over: 40 Chloride hr, Route: 0.004 IV, Dosing MEQ/ML / Weight Sodium 94.119 kg, Chloride Total 0.103 Volume: MEQ/ML / 1,000, Sodium Start Lactate date: 0.028 07/01/15 MEQ/ML 10:21:00 Injectable CDT, Solution Duration: 30 day, Stop date: 07/31/15 10:20:00 CDT Sodium 2016-0 No 500 mL, Memoria Chloride 4-20 Rate: 25 l 0.154 15:21: ml/hr, Hooper MEQ/ML 00 Infuse Injectable over: 20 Solution hr, Route: IV, Dosing Weight 94.119 kg, Total Volume: 500, Start date: 07/01/15 10:21:00 CDT, Duration: 1 day, Stop date: 07/02/15 10:20:00 CDT Calcium 2016-0 No 1,000 mL, Memor ia Chloride 4-20 Rate: 25 l 0.0014 15:21: ml/hr, Hooper MEQ/ML / 00 Infuse Potassium over: 40 [...] 4-20 Rate: 25 l 0.154 15:21: ml/hr, Hooper MEQ/ML 00 Infuse Injectable over: 20 Solution [...] 4-20 Rate: 25 l 0.154 15:21: ml/hr, Hooper MEQ/ML 00 Infuse Injectable over: 20 Solution hr, Route: IV, Dosing Weight 94.119 kg, Total Volume: 500, Start date: 07/01/15 10:21:00 CDT, Duration: 1 day, Stop date: 07/02/15 10:20:00 CDT Calcium 2016-0 No 1,000 mL, Memor ia Chloride 4-20 Rate: 25 l 0.0014 15:21: ml/hr, Hooper MEQ/ML / 00 Infuse Potassium over: 40 Chloride hr, Route: 0.004 IV, Dosing MEQ/ML / Weight Sodium 94.119 kg, Chloride Total 0.103 Volume: MEQ/ML / 1,000, Sodium Start Lactate date: 0.028 07/01/15 MEQ/ML 10:21:00 Injectable CDT, Solution Duration: 30 day, Stop date: 07/31/15 10:20:00 CDT Sodium 2016-0 No 500 mL, Memoria Chloride 4-20 Rate: 25 l 0.154 15:21: ml/hr, Hooper MEQ/ML 00 Infuse Injectable over: 20 Solution [...] 4-20 Rate: 25 l 0.154 15:21: ml/hr, Hooper MEQ/ML 00 Infuse Injectable over: 20 Solution [...] 4-20 Rate: 25 l 0.154 15:21: ml/hr, Hooper MEQ/ML 00 Infuse Injectable over: 20 Solution [...] 4-20 Rate: 25 l 0.154 15:21: ml/hr, Hooper MEQ/ML 00 Infuse Injectable over: 20 Solution [...] / 1,000, Sodium Start Lactate date: 0.028 16 MEQ/ML 10:21:00 Injectable CDT, Solution Duration: 30 [...] 4-20 Rate: 25 l 0.154 15:21: ml/hr, Hooper MEQ/ML 00 Infuse Injectable over: 20 Solution [...] 4-20 Rate: 25 l 0.0014 15:21: ml/hr, Hooper MEQ/ML / 00 Infuse Potassium over: 40 [...] l 12:00: Ancef Yovani Vancomycin 2016-0 No 2000 mg: Me moria 4-20 infuse l 12:00: over 2.5 Yovani 00 hours MEDICATION WASTE Product Size: 1000 mg Product Wasted: ___ mg Ancef 2016-0 No Notes: Memoria 4-20 Same as: l 12:00: Ancef Yovani Vancomycin 2016-0 No 2000 mg: Me moria 4-20 infuse l 12:00: over 2.5 Yovani 00 hours MEDICATION WASTE Product Size: 1000 mg Product Wasted: ___ mg Ancef 2016-0 No Notes: Memoria 4-20 Same as: l 12:00: Anc Vancomycin 2016-0 No 2001 mg: Me moria 4-20 infuse l 12:00: over 2.5 Hooper 00 hours MEDICATION WASTE Product Size: 1000 mg Product Wasted: ___ mg Ancef 2016-0 No Notes: Memoria 4-20 Same as: l 12:00: Vancomycin 2015-0 No 2001 mg: Me moria 4-20 infuse l 12:00: over 2.5 Hooper 00 hours MEDICATION WASTE Product Size: 1000 mg Product Wasted: ___ mg Ancef 2016-0 No Notes: Memoria 4-20 Same as: l 12:00: Vancomycin 2015-0 No 2001 mg: Me moria 4-20 infuse l 12:00: over 2.5 Yovani 00 hours MEDICATION WASTE Product Size: 1000 mg Product Wasted: ___ mg Ancef 2016-0 No Notes: Memoria 4-20 Same as: l 12:00: Vancomycin 2015-0 No 2001 mg: Me moria 4-20 infuse l 12:00: over 2.5 Hooper 00 hours MEDICATION WASTE Product Size: 1000 mg Product Wasted: ___ mg Ancef 2016-0 No Notes: Memoria 4-20 Same as: l 12:00: Anc Vancomycin 2016-0 No 2001 mg: Me moria 4-20 infuse l 12:00: over 2.5 Hooper 00 hours MEDICATION WASTE Product Size: 1000 mg Product Wasted: ___ mg Ancef 2016-0 No Notes: Memoria 4-20 Same as: l 12:00: Anc Vancomycin 2016-0 No 2001 mg: Me moria 4-20 infuse l 12:00: over 2.5 Hooper 00 hours MEDICATION WASTE Product Size: 1000 mg Product Wasted: ___ mg Ancef 2016-0 No Notes: Memoria 4-20 Same as: l 12:00: Anc Vancomycin 2015-0 No 2001 mg: Me moria 4-20 infuse l 12:00: over 2.5 Hooper 00 hours MEDICATION WASTE Product Size: 1000 mg Product Wasted: ___ mg Ancef 2016-0 No Notes: Memoria 4-20 Same as: l 12:00: Anc Vancomycin 2015-0 No 2001 mg: Me moria 4-20 infuse l 12:00: over 2.5 Hooper 00 hours MEDICATION WASTE Product Size: 1000 mg Product Wasted: ___ mg Ancef 2016-0 No Notes: Memoria 4-20 Same as: l 12:00: Vancomycin 2015-0 No 2001 mg: Me moria 4-20 infuse l 12:00: over 2.5 Hooper 00 hours MEDICATION WASTE Product Size: 1000 mg Product Wasted: ___ mg Ancef 2016-0 No Notes: Memoria 4-20 Same as: l 12:00: Vancomycin 2015-0 No 2001 mg: Me moria 4-20 infuse l 12:00: over 2.5 Yovani 00 hours MEDICATION WASTE Product Size: 1000 mg Product Wasted: ___ mg Ancef 2015-0 No Notes: Memoria 4-20 Same as: l 12:00: Anc Vancomycin 2015-0 No 2001 mg: Me moria 4-20 infuse l 12:00: over 2.5 Yovani 00 hours MEDICATION WASTE Product Size: 1000 mg Product Wasted: ___ mg Ancef 2016-0 No Notes: Memoria 4-20 Same as: l 12:00: Anc Vancomycin 2015-0 No 2001 mg: Me moria 4-20 infuse l 12:00: over 2.5 Yovani 00 hours MEDICATION WASTE Product Size: 1000 mg Product Wasted: ___ mg Aspirin 81 Yes 81 mg = 1 Me moria MG Enteric 4-19 tab, PO, l Coated 18:20: Daily, # Hooper Tablet 00 90 tab, 3 Refill(s) Aspirin 81 Yes 81 mg = 1 Me moria MG Enteric 4-19 tab, PO, l Coated 18:20: Daily, # Hooper Tablet 00 90 tab, 3 Refill(s) Aspirin 81 2016-0 Yes 81 mg = 1 Me moria MG Enteric 4-19 tab, PO, l Coated 18:20: Daily, # Hooper Tablet 00 90 tab, 3 Refill(s) Aspirin 81 2016-0 Yes 81 mg = 1 Me moria MG Enteric 4-19 tab, PO, l Coated 18:20: Daily, # Hooper Tablet 00 90 tab, 3 Refill(s) Aspirin 81 2016-0 Yes 81 mg = 1 Me moria MG Enteric 4-19 tab, PO, l Coated 18:20: Daily, # Yovani Tablet 00 90 tab, 3 Refill(s) Aspirin 81 2016- Yes 81 mg = 1 Me moria MG Enteric 4-19 tab, PO, l Coated 18:20: Daily, # Hooper Tablet 00 90 tab, 3 Refill(s) Aspirin 81 2016- Yes 81 mg = 1 Me moria MG Enteric 4-19 tab, PO, l Coated 18:20: Daily, # Yovani Tablet 00 90 tab, 3 Refill(s) Aspirin 81 2016- Yes 81 mg = 1 Me moria MG Enteric 4-19 tab, PO, l Coated 18:20: Daily, # Hooper Tablet 00 90 tab, 3 Refill(s) Aspirin 81 2016-0 Yes 81 mg = 1 Me moria MG Enteric 4-19 tab, PO, l Coated 18:20: Daily, # Hooper Tablet 00 90 tab, 3 Refill(s) Aspirin 81 2016-0 Yes 81 mg = 1 Me moria MG Enteric 4-19 tab, PO, l Coated 18:20: Daily, # Hooper Tablet 00 90 tab, 3 Refill(s) Aspirin 81 2016-0 Yes 81 mg = 1 Me moria MG Enteric 4-19 tab, PO, l Coated 18:20: Daily, # Yovani Tablet 00 90 tab, 3 Refill(s) Aspirin 81 2016-0 Yes 81 mg = 1 Me moria MG Enteric 4-19 tab, PO, l Coated 18:20: Daily, # Hooper Tablet 00 90 tab, 3 Refill(s) Aspirin 81 2016-0 Yes 81 mg = 1 Me moria MG Enteric 4-19 tab, PO, l Coated 18:20: Daily, # Hooper Tablet 00 90 tab, 3 Refill(s) Aspirin 81 2016-0 Yes 81 mg = 1 Me moria MG Enteric 4-19 tab, PO, l Coated 18:20: Daily, # Hooper Tablet 00 90 tab, 3 Refill(s) Ondansetron 20160 Yes 8 mg = 1 Me moria 8 MG Oral 4-19 tab, PO, l Tablet 18:19: BID, 0 Hooper [Zofran] 00 Refill(s) Furosemide 20160 Yes 40 mg = 1 Me moria 40 MG Oral 4-19 tab, PO, l Tablet 18:19: Daily, 0 Yovani 00 Refill(s) NovoLOG 20160 Yes SUB-Q, Memoria 70/30 4-19 ONCE, 0 l 18:19: Refill(s) Hooper 00 Hydralazine 0 Yes 0 Memori a 4-19 Refill(s) l 18:19: Yovani metoprolol 20160 Yes BID, 0 Memor ia tartrate 4-19 Refill(s) l 18:19: Hooper Ondansetron 20160 Yes 8 mg = 1 Me moria 8 MG Oral 4-19 tab, PO, l Tablet 18:19: BID, 0 Hooper [Zofran] 00 Refill(s) Furosemide 0 Yes 40 mg = 1 Me moria 40 MG Oral 4-19 tab, PO, l Tablet 18:19: Daily, 0 Hooper 00 Refill(s) NovoLOG 20160 Yes SUB-Q, Memoria 70/30 4-19 ONCE, 0 l 18:19: Refill(s) Hooper 00 Hydralazine 20160 Yes 0 Memori a 4-19 Refill(s) l 18:19: Hooper 00 metoprolol 2016-0 Yes BID, 0 Memor ia tartrate 4-19 Refill(s) l 18:19: Yovani 00 Ondansetron 2016-0 Yes 8 mg = 1 Me moria 8 MG Oral 4-19 tab, PO, l Tablet 18:19: BID, 0 Hooper [Zofran] 00 Refill(s) Furosemide 20160 Yes 40 mg = 1 Me moria 40 MG Oral 4-19 tab, PO, l Tablet 18:19: Daily, 0 Yovani 00 Refill(s) NovoLOG 2016-0 Yes SUB-Q, Memoria 70/30 4-19 ONCE, 0 l 18:19: Refill(s) Hydralazine 0 Yes 0 Memori a 4-19 Refill(s) l 18:19: metoprolol 20160 Yes BID, 0 Memor ia tartrate 4-19 Refill(s) l 18:19: Ondansetron 20160 Yes 8 mg = 1 Me moria 8 MG Oral 4-19 tab, PO, l Tablet 18:19: BID, 0 Hooper [Zofran] 00 Refill(s) Furosemide 0 Yes 40 mg = 1 Me moria 40 MG Oral 4-19 tab, PO, l Tablet 18:19: Daily, 0 Yovani 00 Refill(s) NovoLOG 0 Yes SUB-Q, Memoria 70/30 4-19 ONCE, 0 l 18:19: Refill(s) Hydralazine 0 Yes 0 Memori a 4-19 Refill(s) l 18:19: metoprolol 0 Yes BID, 0 Memor ia tartrate 4-19 Refill(s) l 18:19: Ondansetron 0 Yes 8 mg = 1 Me moria 8 MG Oral 4-19 tab, PO, l Tablet 18:19: BID, 0 Yovani [Zofran] 00 Refill(s) Furosemide 0 Yes 40 mg = 1 Me moria 40 MG Oral 4-19 tab, PO, l Tablet 18:19: Daily, 0 Hooper 00 Refill(s) NovoLOG 0 Yes SUB-Q, Memoria 70/30 4-19 ONCE, 0 l 18:19: Refill(s) Hydralazine 0 Yes 0 Memori a 4-19 Refill(s) l 18:19: metoprolol 2016-0 Yes BID, 0 Memor ia tartrate 4-19 Refill(s) l 18:19: Ondansetron 20160 Yes 8 mg = 1 Me moria 8 MG Oral 4-19 tab, PO, l Tablet 18:19: BID, 0 Yovani [Zofran] 00 Refill(s) Furosemide 20160 Yes 40 mg = 1 Me moria 40 MG Oral 4-19 tab, PO, l Tablet 18:19: Daily, 0 Hooper 00 Refill(s) NovoLOG 20160 Yes SUB-Q, Memoria 70/30 4-19 ONCE, 0 l 18:19: Refill(s) Hydralazine Yes 0 Memori a 4-19 Refill(s) l 18:19: metoprolol 20160 Yes BID, 0 Memor ia tartrate 4-19 Refill(s) l 18:19: Ondansetron 20160 Yes 8 mg = 1 Me moria 8 MG Oral 4-19 tab, PO, l Tablet 18:19: BID, 0 Hooper [Zofran] Refill(s) Furosemide Yes 40 mg = 1 Me moria 40 MG Oral 4-19 tab, PO, l Tablet 18:19: Daily, 0 Yovani 00 Refill(s) NovoLOG 0 Yes SUB-Q, Memoria 70/30 4-19 ONCE, 0 l 18:19: Refill(s) Hydralazine Yes 0 Memori a 4-19 Refill(s) l 18:19: metoprolol 0 Yes BID, 0 Memor ia tartrate 4-19 Refill(s) l 18:19: Ondansetron 0 Yes 8 mg = 1 Me moria 8 MG Oral 4-19 tab, PO, l Tablet 18:19: BID, 0 Hooper [Zofran] Refill(s) Furosemide 0 Yes 40 mg = 1 Me moria 40 MG Oral 4-19 tab, PO, l Tablet 18:19: Daily, 0 Hooper 00 Refill(s) NovoLOG 20160 Yes SUB-Q, Memoria 70/30 4-19 ONCE, 0 l 18:19: Refill(s) Hydralazine 0 Yes 0 Memori a 4-19 Refill(s) l 18:19: metoprolol 20160 Yes BID, 0 Memor ia tartrate 4-19 Refill(s) l 18:19: Ondansetron 20160 Yes 8 mg = 1 Me moria 8 MG Oral 4-19 tab, PO, l Tablet 18:19: BID, 0 Hooper [Zofran] 00 Refill(s) Furosemide 2016-0 Yes 40 mg = 1 Me moria 40 MG Oral 4-19 tab, PO, l Tablet 18:19: Daily, 0 Yovani 00 Refill(s) NovoLOG 2016-0 Yes SUB-Q, Memoria 70/30 4-19 ONCE, 0 l 18:19: Refill(s) Hydralazine 20160 Yes 0 Memori a 4-19 Refill(s) l 18:19: metoprolol 20160 Yes BID, 0 Memor ia tartrate 4-19 Refill(s) l 18:19: Ondansetron 20160 Yes 8 mg = 1 Me moria 8 MG Oral 4-19 tab, PO, l Tablet 18:19: BID, 0 Yovani [Zofran] 00 Refill(s) Furosemide 20160 Yes 40 mg = 1 Me moria 40 MG Oral 4-19 tab, PO, l Tablet 18:19: Daily, 0 Yovani 00 Refill(s) NovoLOG 2016-0 Yes SUB-Q, Memoria [...] Tablet 18:19: Daily, 0 Yovani 00 Refill(s) NovoLOG 2016-0 Yes SUB-Q, Memoria 70/30 4-19 ONCE, 0 l 18:19: Refill(s) Hydralazine 0 Yes 0 Memori a 4-19 Refill(s) l 18:19: metoprolol 2016-0 Yes BID, 0 Memor ia tartrate 4-19 Refill(s) l 18:19: Ondansetron 2016-0 Yes 8 mg = 1 Me moria 8 MG Oral 4-19 tab, PO, l Tablet 18:19: BID, 0 [place]oper [Zofran] 00 Refill(s) Furosemide 2016-0 Yes 40 mg = 1 Me moria 40 MG Oral 4-19 tab, PO, l Tablet 18:19: Daily, 0 Yovani 00 Refill(s) NovoLOG 2016-0 Yes SUB-Q, Memoria [...] Tablet 18:19: Daily, 0 Yovani 00 Refill(s) NovoLOG 2016-0 Yes SUB-Q, Memoria [...] Tablet 18:19: Daily, 0 Yovani 00 Refill(s) NovoLOG 2016-0 Yes SUB-Q, Memoria 70/30 4-19 ONCE, 0 l 18:19: Refill(s) Hydralazine 2016-0 Yes 0 Memori a 4-19 Refill(s) l 18:19: Yovani 00 metoprolol 2016-0 Yes BID, 0 Memor [...] Chloride 06-16 1,000 l 0.154 16:40: ml/hr, Hooper MEQ/ML 00 Infuse Injectable Over: 1 Solution hr, Route: IV, 1,000, Drug form: INJ, ONCE, Priority: STAT, Dosing Weight 86.364 kg, Start date: 06/17/15 11:40:00, Duration: 1 doses or times, Stop date: 06/17/15 11:40:00 Ondansetron No Notes: Juan Manuel héctor 06-16 (Same as: l 16:40: Zofran) Hooper 00 MEDICATION WASTE Product Size: 4 mg Product Wasted: ___ mg Morphine No Notes: Memoria 06-16 (Same l 16:40: as:MORPhin Yovani 00 e Sulfate) Sodium No 1,000 mL, Memori a Chloride 06-16 1,000 l 0.154 16:40: ml/hr, Hooper MEQ/ML 00 Infuse Injectable Over: 1 Solution hr, Route: IV, 1,000, Drug form: INJ, ONCE, Priority: STAT, Dosing Weight 86.364 kg, Start date: 06/17/15 11:40:00, Duration: 1 doses or times, Stop date: 06/17/15 11:40:00 Ondansetron No Notes: Juan Manuel héctor 06-16 (Same as: l 16:40: Zofran) Hooper 00 MEDICATION WASTE Product Size: 4 mg Product Wasted: ___ mg Morphine No Notes: Memoria 06-16 (Same l 16:40: as:MORPhin Hooper 00 e Sulfate) Sodium No 1,000 mL, Memori a Chloride 06 1,000 l 0.154 16:40: ml/hr, Hooper MEQ/ML 00 Infuse Injectable Over: 1 Solution hr, Route: IV, 1,000, Drug form: INJ, ONCE, Priority: STAT, Dosing Weight 86.364 kg, Start date: 06/17/15 11:40:00, Duration: 1 doses or times, Stop date: 06/17/15 11:40:00 Ondansetron 2015-0 No Notes: Juan Manuel héctor - (Same as: l 16:40: Zofran) Yovani 00 MEDICATION WASTE Product Size: 4 mg Product Wasted: ___ mg Morphine No Notes: Memoria 4- (Same l 16:40: as:MORPhin Yovani 00 e Sulfate) Sodium No 1,000 mL, Memori a Chloride - 1,000 l 0.154 16:40: ml/hr, Yovani MEQ/ML 00 Infuse Injectable Over: 1 Solution hr, Route: IV, 1,000, Drug form: INJ, ONCE, Priority: STAT, Dosing Weight 86.364 kg, Start date: 06/17/15 11:40:00, Duration: 1 doses or times, Stop date: 06/17/15 11:40:00 Ondansetron 0 No Notes: Juan Manuel héctor 06-16 (Same as: l 16:40: Zofran) Yovani 00 MEDICATION WASTE Product Size: 4 mg Product Wasted: ___ mg Morphine No Notes: Memoria 4-06 (Same l 16:40: as:MORPhin Yovani 00 e Sulfate) Sodium No 1,000 mL, Memori a Chloride 4-06 1,000 l 0.154 16:40: ml/hr, Ho[place] MEQ/ML 00 Infuse Injectable Over: 1 Solution hr, Route: IV, 1,000, Drug form: INJ, ONCE, Priority: STAT, Dosing Weight 86.364 kg, Start date: 06/17/15 11:40:00, Duration: 1 doses or times, Stop date: 06/17/15 11:40:00 Ondansetron 0 No Notes: Juan Manuel héctor 4- (Same as: l 16:40: Zofran) Hooper 00 MEDICATION WASTE Product Size: 4 mg Product Wasted: ___ mg Morphine No Notes: Memoria 4-06 (Same l 16:40: as:MORPhin Hooper 00 e Sulfate) Sodium 2016-0 No 1,000 mL, Memori a Chloride 4-06 1,000 l 0.154 16:40: ml/hr, Yovani MEQ/ML 00 Infuse Injectable Over: 1 Solution hr, Route: IV, 1,000, Drug form: INJ, ONCE, Priority: STAT, Dosing Weight 86.364 kg, Start date: 06/17/15 11:40:00, Duration: 1 doses or times, Stop date: 06/17/15 11:40:00 Ondansetron 2016-0 No Notes: Juan Manuel héctor - (Same as: l 16:40: Zofran) Yovani 00 MEDICATION WASTE Product Size: 4 mg Product Wasted: ___ mg Morphine No Notes: Memoria 4-06 (Same l 16:40: as:MORPhin Yovani 00 e Sulfate) Sodium No 1,000 mL, Memori a Chloride 4-06 1,000 l 0.154 16:40: ml/hr, Yovani MEQ/ML 00 Infuse Injectable Over: 1 Solution hr, Route: IV, 1,000, Drug form: INJ, ONCE, Priority: STAT, Dosing Weight 86.364 kg, Start date: 06/17/15 11:40:00, Duration: 1 doses or times, Stop date: 06/17/15 11:40:00 Ondansetron 2016-0 No Notes: Juan Manuel héctor 4 (Same as: l 16:40: Zofran) Yovani 00 MEDICATION WASTE Product Size: 4 mg Product Wasted: ___ mg Morphine 2015- No Notes: Memoria 4-06 (Same l 16:40: as:MORPhin Hooper 00 e Sulfate) Sodium No 1,000 mL, Memori a Chloride 4-06 1,000 l 0.154 16:40: ml/hr, Yovani MEQ/ML 00 Infuse Injectable Over: 1 Solution hr, Route: IV, 1,000, Drug form: INJ, ONCE, Priority: STAT, Dosing Weight 86.364 kg, Start date: 06/17/15 11:40:00, Duration: 1 doses or times, Stop date: 06/17/15 11:40:00 Ondansetron 2016-0 No Notes: Juan Manuel héctor 4-06 (Same as: l 16:40: Zofran) Hooper 00 MEDICATION WASTE Product Size: 4 mg Product Wasted: ___ mg Morphine No Notes: Memoria 4-06 (Same l 16:40: as:MORPhin Yovani 00 e Sulfate) Sodium No 1,000 mL, Memori a Chloride 4-06 1,000 l 0.154 16:40: ml/hr, Hooper MEQ/ML 00 Infuse Injectable Over: 1 Solution hr, Route: IV, 1,000, Drug form: INJ, ONCE, Priority: STAT, Dosing Weight 86.364 kg, Start date: 06/17/15 11:40:00, Duration: 1 doses or times, Stop date: 06/17/15 11:40:00 Ondansetron No Notes: Juan Manuel héctor 06-16 (Same as: l 16:40: Zofran) Hooper 00 MEDICATION WASTE Product Size: 4 mg Product Wasted: ___ mg Morphine No Notes: Memoria - (Same l 16:40: as:MORPhin Hooper 00 e Sulfate) Sodium No 1,000 mL, Memori a Chloride 4-06 1,000 l 0.154 16:40: ml/hr, Yovani MEQ/ML 00 Infuse Injectable Over: 1 Solution hr, Route: IV, 1,000, Drug form: INJ, ONCE, Priority: STAT, Dosing Weight 86.364 kg, Start date: 06/17/15 11:40:00, Duration: 1 doses or times, Stop date: 06/17/15 11:40:00 Ondansetron 0 No Notes: Juan Manuel héctor - (Same as: l 16:40: Zofran) Yovani 00 MEDICATION WASTE Product Size: 4 mg Product Wasted: ___ mg Morphine No Notes: Memoria 4-06 (Same l 16:40: as:MORPhin Yovani 00 e Sulfate) Sodium No 1,000 mL, Memori a Chloride 4-06 1,000 l 0.154 16:40: ml/hr, Yovani MEQ/ML 00 Infuse Injectable Over: 1 Solution hr, Route: IV, 1,000, Drug form: INJ, ONCE, Priority: STAT, Dosing Weight 86.364 kg, Start date: 06/17/15 11:40:00, Duration: 1 doses or times, Stop date: 06/17/15 11:40:00 Ondansetron 2016-0 No Notes: Juan Manuel héctor - (Same as: l 16:40: Zofran) Yovani 00 MEDICATION WASTE Product Size: 4 mg Product Wasted: ___ mg Morphine No Notes: Memoria 06-16 (Same l 16:40: as:MORPhin Hooper 00 e Sulfate) Sodium 2016-0 No 1,000 mL, Memori a Chloride 4-06 1,000 l 0.154 16:40: ml/hr, Hooper MEQ/ML 00 Infuse Injectable Over: 1 Solution hr, Route: IV, 1,000, Drug form: INJ, ONCE, Priority: STAT, Dosing Weight 86.364 kg, Start date: 06/17/15 11:40:00, Duration: 1 doses or times, Stop date: 06/17/15 11:40:00 Sodium 2016-0 No 1,000 mL, Memori a Chloride 4- 1,000 l 0.154 16:40: ml/hr, Hooper MEQ/ML 00 Infuse Injectable Over: 1 Solution hr, Route: IV, 1,000, Drug form: INJ, ONCE, Priority: STAT, Dosing Weight 86.364 kg, Start date: 06/17/15 11:40:00, Duration: 1 doses or times, Stop date: 06/17/15 11:40:00 Ondansetron 2016-0 No Notes: Juan Manuel héctor - (Same as: l 16:40: Zofran) Yovani 00 MEDICATION WASTE Product Size: 4 mg Product Wasted: ___ mg Morphine 2015- No Notes: Memoria - (Same l 16:40: as:MORPhin Hooper 00 e Sulfate) Ondansetron 2015-0 No Notes: Juan Manuel héctor 4- (Same as: l 16:40: Zofran) Yovani 00 MEDICATION WASTE Product Size: 4 mg Product Wasted: ___ mg Morphine 2015- No Notes: Memoria 4- (Same l 16:40: as:MORPhin Hooper 00 e Sulfate) Sodium No 1,000 mL, Memori a Chloride 06-16 1,000 l 0.154 16:40: ml/hr, Hooper MEQ/ML 00 Infuse Injectable Over: 1 Solution [...] Notes: Memoria 06-16 (Same l 16:40: as:MORPhin Hooper 00 e Sulfate) Acetaminoph No Special Mem [...] Special Mem oria en 300 MG / 19 Instructio l butalbital 21:16: ns: Do not H ermann 50 MG / 00 exceed 6 Caffeine 40 capsules MG Oral in 24 Capsule hours [Fioricet] Acetaminoph No Special Mem oria en 300 MG / 19 Instructio l butalbital 21:16: ns: Do not [...] 6-19 (Same as: l 20:38: Benadryl) Yovani Sodium No 1,000 mL, Memori a Chloride 6- 1,000 l 0.154 20:38: ml/hr, Yovani MEQ/ML 00 Infuse Injectable Over: 1 Solution hr, Route: IV, 1,000, Drug form: INJ, ONCE, Priority: STAT, Dosing Weight 86.364 kg, Start date: 08/29/14 15:38:00, Duration: 1 doses or times, Stop date: 08/29/14 15:38:00 Reglan No Notes: Memoria 6-19 (Same as: l 20:38: Reglan) Benadryl No Notes: Memoria 6-19 (Same as: l 20:38: Benadryl) Hooper Sodium No 1,000 mL, Memori a Chloride 6- 1,000 l 0.154 20:38: ml/hr, Hooper MEQ/ML 00 Infuse Injectable Over: 1 Solution hr, Route: IV, 1,000, Drug form: INJ, ONCE, Priority: STAT, Dosing Weight 86.364 kg, Start date: 08/29/14 15:38:00, Duration: 1 doses or times, Stop date: 08/29/14 15:38:00 Reglan No Notes: Memoria 6-19 (Same as: l 20:38: Reglan) Yovani Benadryl No Notes: Memoria 6-19 (Same as: l 20:38: Benadryl) Hooper Sodium 2015-0 No 1,000 mL, Memori a Chloride 6-19 1,000 l 0.154 20:38: ml/hr, Hooper MEQ/ML 00 Infuse Injectable Over: 1 Solution hr, Route: IV, 1,000, Drug form: INJ, ONCE, Priority: STAT, Dosing Weight 86.364 kg, Start date: 08/29/14 15:38:00, Duration: 1 doses or times, Stop date: 08/29/14 15:38:00 Reglan No Notes: Memoria 6-19 (Same as: l 20:38: Reglan) Hooper Benadryl No Notes: Memoria 6-19 (Same as: l 20:38: Benadryl) Hooper Sodium No 1,000 mL, Memori a Chloride 6-19 1,000 l 0.154 20:38: ml/hr, Hooper MEQ/ML 00 Infuse Injectable Over: 1 Solution hr, Route: IV, 1,000, Drug form: INJ, ONCE, Priority: STAT, Dosing Weight 86.364 kg, Start date: 08/29/14 15:38:00, Duration: 1 doses or times, Stop date: 08/29/14 15:38:00 Reglan No Notes: Memoria 6-19 (Same as: l 20:38: Reglan) Hooper 00 Benadryl No Notes: Memoria 6-19 (Same as: l 20:38: Benadryl) Yovani Sodium No 1,000 mL, Memori a Chloride 6-19 1,000 l 0.154 20:38: ml/hr, Yovani MEQ/ML 00 Infuse Injectable Over: 1 Solution hr, Route: IV, 1,000, Drug form: INJ, ONCE, Priority: STAT, Dosing Weight 86.364 kg, Start date: 08/29/14 15:38:00, Duration: 1 doses or times, Stop date: 08/29/14 15:38:00 Reglan No Notes: Memoria 6-19 (Same as: l 20:38: Reglan) Yovani Benadryl No Notes: Memoria 6-19 (Same as: l 20:38: Benadryl) Yovani Sodium No 1,000 mL, Memori a Chloride 6-19 1,000 l 0.154 20:38: ml/hr, Yovani MEQ/ML 00 Infuse Injectable Over: 1 Solution hr, Route: IV, 1,000, Drug form: INJ, ONCE, Priority: STAT, Dosing Weight 86.364 kg, Start date: 08/29/14 15:38:00, Duration: 1 doses or times, Stop date: 08/29/14 15:38:00 Reglan No Notes: Memoria 6-19 (Same as: l 20:38: Reglan) Hooper Benadryl No Notes: Memoria 6-19 (Same as: l 20:38: Benadryl) Yovani Sodium No 1,000 mL, Memori a Chloride 6-19 1,000 l 0.154 20:38: ml/hr, Hooper MEQ/ML 00 Infuse Injectable Over: 1 Solution hr, Route: IV, 1,000, Drug form: INJ, ONCE, Priority: STAT, Dosing Weight 86.364 kg, Start date: 08/29/14 15:38:00, Duration: 1 doses or times, Stop date: 08/29/14 15:38:00 Reglan No Notes: Memoria 6-19 (Same as: l 20:38: Reglan) Yovani Benadryl No Notes: Memoria 6-19 (Same as: l 20:38: Benadryl) Yovani 00 Sodium No 1,000 mL, Memori a Chloride 6-19 1,000 l 0.154 20:38: ml/hr, Yovani MEQ/ML 00 Infuse Injectable Over: 1 Solution hr, Route: IV, 1,000, Drug form: INJ, ONCE, Priority: STAT, Dosing Weight 86.364 kg, Start date: 08/29/14 15:38:00, Duration: 1 doses or times, Stop date: 08/29/14 15:38:00 Reglan No Notes: Memoria 6-19 (Same as: l 20:38: Reglan) Yovani Benadryl No Notes: Memoria 6-19 (Same as: l 20:38: Benadryl) Yovani Sodium No 1,000 mL, Memori a Chloride 6-19 1,000 l 0.154 20:38: ml/hr, Hooper MEQ/ML 00 Infuse Injectable Over: 1 Solution hr, Route: IV, 1,000, Drug form: INJ, ONCE, Priority: STAT, Dosing Weight 86.364 kg, Start date: 08/29/14 15:38:00, Duration: 1 doses or times, Stop date: 08/29/14 15:38:00 Reglan No Notes: Memoria 6-19 (Same as: l 20:38: Reglan) Hooper Benadryl No Notes: Memoria 6-19 (Same as: l 20:38: Benadryl) Hooper Sodium No 1,000 mL, Memori a Chloride 6-19 1,000 l 0.154 20:38: ml/hr, Hooper MEQ/ML 00 Infuse Injectable Over: 1 Solution hr, Route: IV, 1,000, Drug form: INJ, ONCE, Priority: STAT, Dosing Weight 86.364 kg, Start date: 08/29/14 15:38:00, Duration: 1 doses or times, Stop date: 08/29/14 15:38:00 Reglan No Notes: Memoria 6-19 (Same as: l 20:38: Reglan) Hooper 00 Benadryl No Notes: Memoria 6-19 (Same as: l 20:38: Benadryl) Hooper Sodium No 1,000 mL, Memori a Chloride 6-19 1,000 l 0.154 20:38: ml/hr, Hooper MEQ/ML 00 Infuse Injectable Over: 1 Solution hr, Route: IV, 1,000, Drug form: INJ, ONCE, Priority: STAT, Dosing Weight 86.364 kg, Start date: 08/29/14 15:38:00, Duration: 1 doses or times, Stop date: 08/29/14 15:38:00 Reglan No Notes: Memoria 6-19 (Same as: l 20:38: Reglan) Yovani Benadryl No Notes: Memoria 6-19 (Same as: l 20:38: Benadryl) Hooper Sodium No 1,000 mL, Memori a Chloride 6-19 1,000 l 0.154 20:38: ml/hr, Yovani MEQ/ML 00 Infuse Injectable Over: 1 Solution hr, Route: IV, 1,000, Drug form: INJ, ONCE, Priority: STAT, Dosing Weight 86.364 kg, Start date: 08/29/14 15:38:00, Duration: 1 doses or times, Stop date: 08/29/14 15:38:00 Reglan No Notes: Memoria 6-19 (Same as: l 20:38: Reglan) Benadryl No Notes: Memoria 6-19 (Same as: l 20:38: Benadryl) Sodium No 1,000 mL, Memori a Chloride 6-19 1,000 l 0.154 20:38: ml/hr, Hooper MEQ/ML 00 Infuse Injectable Over: 1 Solution hr, Route: IV, 1,000, Drug form: INJ, ONCE, Priority: STAT, Dosing Weight 86.364 kg, Start date: 08/29/14 15:38:00, Duration: 1 doses or times, Stop date: 08/29/14 15:38:00 Reglan No Notes: Memoria 6-19 (Same as: l 20:38: Reglan) Benadryl No Notes: Memoria 6-19 (Same as: l 20:38: Benadryl) Sodium No 1,000 mL, Memori a Chloride 6-19 1,000 l 0.154 20:38: ml/hr, Hooper MEQ/ML 00 Infuse Injectable Over: 1 Solution hr, Route: IV, 1,000, Drug form: INJ, ONCE, Priority: STAT, Dosing Weight 86.364 kg, Start date: 08/29/14 15:38:00, Duration: 1 doses or times, Stop date: 08/29/14 15:38:00 Reglan No Notes: Memoria 6-19 (Same as: l 20:38: Reglan) Immunizations Ordered Immunization Filled Immunization Date Status Commen ts Source Name Name Influenza Three-TIV 2015-04-08 Completed [facility] 5+ YR 00:00:00 [facility] Influenza Three-TIV 2015-04-08 Completed [facility] 5+ YR 00:00:00 [facility] Influenza Three-TIV 2015-04-08 Completed [facility] PF 5+ YR 00:00:00 [facility] Influenza Three-TIV 2015-04-08 Completed [facility] PF 5+ YR 00:00:00 [facility] Vital Signs Vital Name Observation Time Observation Value Comments Source Systolic blood 2022-01-19 16:48:00 156 mm[Hg] [facility] pressure Diastolic blood 2022-01-19 16:48:00 94 mm[Hg] [facility] pressure Heart rate 2022-01-19 16:48:00 84 /min [facility] Body temperature 2022-01-19 16:48:00 36.44 [facility] Body height 2022-01-19 16:48:00 172.7 cm [facility] Body weight 2022-01-19 16:48:00 81.194 kg [facility] BMI 2022-01-19 16:48:00 27.22 kg/m2 [facility] Oxygen saturation in 2022-01-19 16:48:00 96 /min [facility] Arterial blood by Pulse oximetry Respitory Rate 2019-04-19 21:57:00 Memori al Hooper Systolic (mm Hg) 2019-04-19 21:57:00 Juan Manuel rial Yovani Diastolic (mm Hg) 2019-04-19 21:57:00 [facility] orial Hooper Respitory Rate 2019-04-19 21:45:00 Memori al Hooper Systolic (mm Hg) 2019-04-19 21:45:00 Juan Manuel rial Yovani Diastolic (mm Hg) 2019-04-19 21:45:00 Mem orial Yovani Respitory Rate 2019-04-19 21:30:00 Memori al Hooper Systolic (mm Hg) 2019-04-19 21:30:00 Juan Manuel rial Yovani Diastolic (mm Hg) 2019-04-19 21:30:00 Mem orial Yovani Heart Rate 2019-04-19 18:39:00 [facility] Height 2019-04-19 18:24:00 170.18 cm [facility] Weight 2019-04-19 18:24:00 [facility] BMI Calculated 2019-04-19 18:24:00 Memori al Hooper BMI Calculated 2015-08-05 22:10:00 [facility] Height 2015-08-05 22:10:00 172.72 cm [facility] Weight 2015-08-05 22:10:00 [facility] Temperature Oral (F) 2015-08-05 22:10:00 97.7 F [facility] Heart Rate 2015-08-05 22:10:00 [facility] Respitory Rate 2015-08-05 22:10:00 [facility]ori [facility] Systolic (mm Hg) 2015-08-05 22:10:00 Juan Manuel rial Yovani Diastolic (mm Hg) 2015-08-05 22:10:00 Mem orial Yovani Respitory Rate 2015-07-01 23:00:00 Memori al Hooper Systolic (mm Hg) 2015-07-01 23:00:00 Juan Manuel rial Yovani Diastolic (mm Hg) 2015-07-01 23:00:00 Mem orial Yovani Respitory Rate 2015-07-01 22:45:00 Memori al Yovani Systolic (mm Hg) 2015-07-01 22:45:00 Juan Manuel rial Hooper Diastolic (mm Hg) 2015-07-01 22:45:00 Mem orial Yovani Systolic (mm Hg) 2015-07-01 22:15:00 Juan Manuel rial Hooper Diastolic (mm Hg) 2015-07-01 22:15:00 Mem orial Hooper Respitory Rate 2015-07-01 22:15:00 Memori al Hooper Temperature Oral (F) 2015-07-01 12:08:00 98.2 F [facility] Heart Rate 2015-07-01 12:08:00 [facility] BMI Calculated 2015-06-30 18:01:00 [facility] Yovani Height 2015-06-30 18:01:00 170.18 cm [facility] Weight 2015-06-30 18:01:00 [facility] Heart Rate 2015-06-17 18:10:00 [facility] Temperature Oral (F) 2015-06-17 18:10:00 98.0 F [facility] Respitory Rate 2015-06-17 18:10:00 Memori al Yovani Systolic (mm Hg) 2015-06-17 18:10:00 Juan Manuel rial Hooper Diastolic (mm Hg) 2015-06-17 18:10:00 Mem orial Hooper Weight 2015-06-17 16:43:00 [facility] Heart Rate 2015-06-17 16:43:00 [facility] Respitory Rate 2015-06-17 16:43:00 Memori al Yovani Systolic (mm Hg) 2015-06-17 16:43:00 Juan Manuel rial Hooper Diastolic (mm Hg) 2015-06-17 16:43:00 Mem orial Yovani BMI Calculated 2015-06-17 16:43:00 [facility]ori al Yovani Height 2015-06-17 16:43:00 172.72 cm [facility] Temperature Oral (F) 2015-06-17 16:43:00 98.2 F [facility] Systolic (mm Hg) 2014-08-29 23:51:00 Juan Manuel rial Hooper Diastolic (mm Hg) 2014-08-29 23:51:00 Mem orial Hooper Temperature Oral (F) 2014-08-29 23:51:00 98.3 F [facility] Heart Rate 2014-08-29 23:51:00 [facility] Respitory Rate 2014-08-29 23:51:00 Memori al Yovani Respitory Rate 2014-08-29 22:20:00 Memori al Yovani Heart Rate 2014-08-29 22:20:00 [facility] Systolic (mm Hg) 2014-08-29 22:20:00 Juan Manuel rial Yovani Diastolic (mm Hg) 2014-08-29 22:20:00 Mem orial Hooper Weight 2014-08-29 20:01:00 [facility] Hooper BMI Calculated 2014-08-29 20:01:00 Memori al Hooper Heart Rate 2014-08-29 20:01:00 [facility] Respitory Rate 2014-08-29 20:01:00 Memori al Hooper Systolic (mm Hg) 2014-08-29 20:01:00 Juan Manuel rial Yovani Diastolic (mm Hg) 2014-08-29 20:01:00 Mem orial Yovani Temperature Oral (F) 2014-08-29 20:01:00 98.3 F [facility] Height 2014-08-29 20:01:00 172.72 cm [facility] Procedures Procedure Date / Time Performed Performing Clinician Kadi aranda [id number] 2021-01-14 00:00:00 JAFSY.02 [facility] [id number] 2021-01-12 00:00:00 JAFSY.02 [facility] [id number] 2021-01-11 00:00:00 KETLO [facility] [id number] 2021-01-11 00:00:00 KETLO [facility] [id number] 2021-01-09 00:00:00 JAFSY.02 [facility] Cholecystectomy 2014-03-13 00:00:00 [facility] Abdominal hysterectomy [facility] CS - section [facility] Plan of Care Planned Activity Planned Date Details Comments Source Future Scheduled 2022-04-14 SHINGLES VACCINES (1 Met [facility] Test 15:38:38 of 2) [code = SHINGLES VACCINES (1 of 2)] Future Scheduled 2022-04-14 Screening for [facility] Test 15:38:38 malignant neoplasm of cervix (procedure) [code = 390228144] Future Scheduled 2022-04-14 BREAST CANCER [facility] Test 15:38:38 SCREENING [code = BREAST CANCER SCREENING] Future Scheduled 2022-04-14 COLONOSCOPY SCREENING [facility] Test 15:38:38 [code = COLONOSCOPY SCREENING] Future Scheduled 2022-04-14 COVID-19 VACCINE (3 - [facility] Test 15:38:38 Booster for Pfizer series) [code = COVID-19 VACCINE (3 - Booster for Pfizer series)] Future Scheduled 2022-04-14 INFLUENZA VACCINE [facility] Test 15:38:38 [code = INFLUENZA VACCINE] Future Scheduled 2022-04-14 HEPATITIS B VACCINES Met [facility] Test 15:38:38 (1 of 3 - 3-dose series) [code = HEPATITIS B VACCINES (1 of 3 - 3-dose series)] Future Scheduled 2022-04-14 Pneumococcal Vaccine: [facility] Test 15:38:38 Pediatrics (0 to 5 Years) and At-Risk Patients (6 to 64 Years) (1 - PCV) [code = Pneumococcal Vaccine: Pediatrics (0 to 5 Years) and At-Risk Patients (6 to 64 Years) (1 - PCV)] Future Scheduled 2022-04-14 DIABETES: RETINAL EYE Me [facility] Test 15:38:38 EXAM [code = DIABETES: RETINAL EYE EXAM] Future Scheduled 2022-04-14 DIABETIC FOOT EXAM [facility] Test 15:38:38 [code = DIABETIC FOOT EXAM] Encounters Start End Encounter Admission Attending Care Care Encounter Source Date/Time Date/Time Type Type Clinicians Facility Department ID 2020-12-19 [facility] [id number] [facility] 14:25:32 JESSY 2022-03-11 2022-03-11 Outpatient [facility] [id number] [facility] 09:39:08 10:06:26 DESI villatoro of Medicin e 2022-01-19 2022-01-19 [facility] [id number] [id number] Methodi 09:45:00 12:01:33 Visit Lisa Santizo 19279.1.[id number] 3.430.2.7 Hospit a .3.227267 l .8 2022-01-19 2022-01-19 Outpatient LAVELL [facility] [id number] [place] 00:00:00 00:00:00 MEDARDO Mulligan [facility] 2022-01-19 2022-01-19 Travel 1.2.840.1 [id number] [facility] 00:00:00 00:00:[address] 3.430.2.7 0.2.7.3.698 [facility]84.8 l .8 2022-01-07 2022-01-07 Telephone Raulito 1.2.840.1 [id number] [facility] 00:00:00 00:00:[address] 3.430.2.7 Hospit a .3.636925 l .8 2021-02-22 2021-02-22 [facility] [id number] [place] 00:00:00 00:00:00 HEBER Sy [address] 2021-01-14 2021-01-29 Inpatient MACGILLIVRA [facility] [id number] [place] 00:00:00 00:00:00 HEBER Sy 489 Meth betty 2021-01-08 2021-01-14 Inpatient [facility] [id number] [facility] 21:01:00 19:49:00 59 [facility] 2020-10-19 2020-10-19 Outpatient LAVELL, [facility] [id number] [place] 00:00:00 00:00:00 MEDARDO 120 Method i 2020-09-30 2020-09-30 Outpatient [facility] [id number] SLE 00:00:00 00:00:00 2020-09-30 2020-09-30 [id number] [facility] 00:00:00 00:00:00 2020-08-19 2020-08-19 Outpatient MONTE, [facility] [id number] [place] 00:00:00 00:00:00 MEDARDO 152 Method i 2020-07-16 2020-07-16 Outpatient MONTE, [facility] [id number] [place] 00:00:00 00:00:00 MEDARDO 712 Method i 2020-06-29 2020-06-29 Outpatient LAVELL [facility] [id number] [place] 00:00:00 00:00:00 MEDARDO 433 Method i 2020-06-26 2020-06-26 Outpatient MONTE [facility] [id number] [place] 00:00:00 00:00:00 MEDARDO 254 Method i 2020-06-26 2020-06-26 Outpatient PISKLAK, [facility] [id number] [place] 00:00:00 00:00:00 SAMMY 152 Method i 2020-06-22 2020-06-22 Outpatient Caryl PAN [facility] [id number] [facility] 14:20:00 14:20:00 URIEL [facility] 2020-06-11 2020-06-11 Outpatient Caryl PAN [facility] [id number] [facility] 16:00:00 16:00:00 URIEL [facility] 2020-06-01 2020-06-01 Outpatient LAVELL, [facility] [id number] [place] 00:00:00 00:00:00 MEDARDO 154 Method i 2020-06-01 2020-06-01 Outpatient LAVELL [facility] [id number] [place] 00:00:00 00:00:00 MEDARDO [address] 2020-05-29 2020-05-29 Outpatient Yao Werner [facility] E00 [id number] [facility] 11:30:00 11:30:00 14 [facility] 2020-05-27 2020-05-27 Outpatient LAVELL [facility] [id number] [place] 00:00:00 00:00:00 MEDARDO 585 Method i 2020-05-21 2020-05-21 Outpatient Caryl PAN [facility] [id number] [facility] 12:40:00 12:40:00 URIEL [facility] 2019-10-30 2019-10-30 Outpatient [facility] [id number] [facility] 00:00:00 00:00:00 2019-10-30 2019-10-30 Outpatient SLEH [facility] [id number] [facility] 00:00:00 00:00:00 2019-10-30 2019-10-30 Outpatient SLEH [facility] [id number] [facility] 00:00:00 00:00:00 2019-10-30 2019-10-30 Outpatient EL [facility] [id number] [facility] 00:00:00 00:00:00 2019-10-11 2019-10-11 Outpatient JJ, [facility] [id number] [facility] 00:00:00 00:00:00 BHAMIDIPATI 2019-10-11 2019-10-11 Outpatient JJ, [facility] [id number] [facility] 00:00:00 00:00:00 BHAMIDIPATI 2019-10-11 2019-10-11 Outpatient JJ, [facility] [id number] [facility] 00:00:00 00:00:00 BHAMIDIPATI 2019-10-11 2019-10-11 Outpatient SLEH [facility] [id number] [facility] 00:00:00 00:00:00 2019-10-11 2019-10-11 Outpatient EL [facility] [id number] [facility] 00:00:00 00:00:00 2019-10-02 2019-10-02 Outpatient SLEH [facility] [id number] [facility] 00:00:00 00:00:00 2019-10-02 2019-10-02 Outpatient SLEH [facility] [id number] [facility] 00:00:00 00:00:00 2019-10-02 2019-10-02 Outpatient EL [facility] [id number] [facility] 00:00:00 00:00:00 2019-09-20 2019-09-20 Outpatient SLEH [facility] [id number] [facility] 00:00:00 00:00:00 2019-09-20 2019-09-20 Outpatient JJ, [facility] [id number] [facility] 00:00:00 00:00:00 BHAMIDIPATI 2019-09-20 2019-09-20 Outpatient JJ, [facility]H [facility] [id number] [facility] 00:00:00 00:00:00 BHAMIDIPATI 2019-09-20 2019-09-20 Outpatient JJ, [facility] [id number] [facility] 00:00:00 00:00:00 BHAMIDIPATI 2019-09-20 2019-09-20 Outpatient EL JJ, [facility] [id number] [facility] 00:00:00 00:00:00 BHAMIDIPATI 2019-07-24 2019-07-24 Outpatient SLEH [facility] [id number] [facility] 00:00:00 00:00:00 [id number] 2019-07-24 2019-07-24 Outpatient EL [facility] [id number] [facility] 00:00:00 00:00:00 2019-04-19 2019-04-20 [facility] [id number] [facility] 17:35:00 05:59:00 Surgery r Yovani 04 [facility] 2019-04-19 2019-04-20 Day [facility]Flavo [facility] [id number] Memoria 17:35:00 05:59:00 Surgery r Yovani [address] [place] [address] 2019-04-19 2019-04-20 Day [facility] [id number] Memoria 17:35:00 05:59:00 Surgery r [address] 2019-04-19 2019-04-19 Outpatient Sheyla Albarado [facility] [id number] 11:35:00 23:59:00 Rin 04 2019-04-19 2019-04-19 Outpatient Sheyla Albarado [facility] [id number] 11:35:00 23:59:00 Rin 04 2019-04-19 2019-04-19 [id number] 11:35:00 11:35:00 2017-08-03 2017-08-03 Outpatient SLEH [facility] [id number] [facility] 00:00:00 00:00:00 [id number] 2016-05-18 2016-05-19 Outpt Diag nullFlavo [facility] [id number] Memoria 16:22:00 05:59:00 Services r Outpatient 00 l Imaging [facility] 2016-05-18 2016-05-19 Outpt Diag nullFlavo [facility] [id number] Memoria 16:22:00 05:59:00 Services r Outpatient 00 l Imaging [facility] 2016-05-18 2016-05-19 Outpt Diag nullFlavo [facility] [id number] Memoria 16:22:00 05:59:00 Services r Outpatient 00 l [facility] 2016-05-18 2016-05-18 Outpatient Ryan, MHOIP MHOIP [id number] 10:22:00 23:59:00 [facility] 00 2016-05-18 2016-05-18 Outpatient Ryan, MHOIP MHOIP [id number] 10:22:00 23:59:00 [facility] 00 2015-08-05 2015-08-05 EC nullFlavo [facility] [id number] Memoria 22:05:00 22:42:00 Emergency r Hooper 03 l [facility] 2015-08-05 2015-08-05 EC nullFlavo [facility] [id number] Memoria 22:05:00 22:42:00 Emergency r Hooper 03 l [facility] 2015-08-05 2015-08-05 EC [facility]Flavo [facility] [id number] Memoria 22:05:00 22:42:00 Emergency r Yovani 03 l [facility] 2015-08-05 2015-08-05 Outpatient Latia Smith [facility] [id number] 17:05:00 17:42:00 Alexander 2015-08-05 2015-08-05 Outpatient Sarah, Latia [facility] [id number] 17:05:00 17:42:00 Alexander 2015-07-01 2015-07-01 OBS Day [facility] [id number] [facility] 13:00:00 23:10:00 Surgery r Yovani 02 [facility] 2015-07-01 2015-07-01 OBS Day [facility] [id number] [facility]oria 13:00:00 23:10:00 Surgery r Yovani 02 [facility] 2015-07-01 2015-07-01 OBS Day [facility] [id number] Memoria 13:00:00 23:10:00 Surgery r Yovani 02 [facility] 2015-07-01 2015-07-01 Outpatient Kelvin, MHSE MHSE [id number] 08:00:00 18:10:[address] 2015-07-01 2015-07-01 Outpatient Kelvin, MHSE MHSE [id number] 08:00:00 18:10:[address] 2015-06-17 2015-06-17 [facility] [id number] Memoria 16:33:00 18:32:00 Emergency r Yovani 01 l [facility] 2015-06-17 2015-06-17 [facility] [id number] [facility]oria 16:33:00 18:32:00 Emergency r Hooper 01 l [facility] 2015-06-17 2015-06-17 [facility] [id number] Memoria 16:33:00 18:32:00 Emergency r Yovani 01 l [facility] 2015-06-17 2015-06-17 Outpatient isabela [facility] [id number] 11:33:00 13:32:00 Jessy Gan 2015-06-17 2015-06-17 Outpatient Kings [facility] [id number] 11:33:00 13:32:00 Jessy Gan 2014-08-29 2014-08-30 [facility] [id number] Memoria 19:56:00 00:32:00 Emergency r Yovani 00 l [facility] 2014-08-29 2014-08-30 [facility] [id number] Memoria 19:56:00 00:32:00 Emergency r Yovani 00 l [facility] [place] 2014-08-29 2014-08-30 [facility] [id number] Memoria 19:56:00 00:32:00 Emergency r Hooper 00 l [facility] [place] 2014-08-29 2014-08-29 Outpatient Pulliam, [id number] 14:56:00 19:32:00 Kizzy [id number] Harsad [id number] 0650-06-19 2014-08-29 Outpatient Pulliam, [id number]. [id number] 14:56:00 19:32:00 Kizzy [id number] Harsad [id number] 01 Results Test Description Test Time Test Comments Results Result Comments Source SARS-CoV-2 (COVID-19) RNA [Presence] in Respiratory sp ecimen by 2021-01-20 11:43:23 AUDRA with probe detection Test Item Value Reference Range Interpretation Comme nts SARS-CoV-2 (COVID-19) RNA [Presence] in Respiratory Not detected No t-Detected specimen by AUDRA with probe detection (test code = 47758-6) Whether patient is employed in a healthcare setting (test code = 81674-5) Whether the patient has symptoms related to condition of interest (test code = 84428-3) Patient was hospitalized because of this condition (test code = 16508-6) Whether the patient was admitted to intensive care unit (ICU) for condition of interest (test code = 18442-3) Whether patient resides in a congregate care setting (test code = 61845-0) DONELL RAYRS-CoV-2 (COVID-19) RNA [Presence] in Respiratory specimen by AUDRA with probe [id number] 06:06:37 Test Item Value Reference Range Interpretation Comments SARS-CoV-2 (COVID-19) RNA Not detected Not-Detected [Presence] in Respiratory specimen by AUDRA with probe detection (test code = 31693-8) Whether patient is employed in a healthcare setting (test code = 07584-7) Whether the patient has symptoms related to condition of interest (test code = 49856-7) Patient was hospitalized because of this condition (test code = 20995-2) Whether the patient was admitted to intensive care unit (ICU) for condition of interest (test code = 59855-1) Whether patient resides in a congregate care setting (test code = 58782-6) [facility] METABOLIC [id number] 10:26:00 Test Item Value Reference Range Interpretation Comments SODIUM (test code = 136.0 mmol/L 133-144 N NA) POTASSIUM (test 3.1 mmol/L 3.5-5.1 L code = K) CHLORIDE (test code 99 mmol/L 95-105 N = CL) CARBON DIOXIDE 29 mmol/L 21-32 N (test code = CO2) ANION GAP (test 8.0 GAP calc 4.0-15.0 N code = GAP) GLUCOSE (test code 150 MG/DL 70-110 H = GLU) BLOOD UREA NITROGEN 27 MG/DL 7-18 H (test code = BUN) CREATININE (test 5.27 MG/DL 0.55-1.30 Critical va lues after code = CREAT) the first occu rrence are excluded fr omcall documentation requirements fo r this analyte due to thepatient diag nosis or therapy protocols.Resul ts may be depressed if patient is takingN-Acetylc ystein e (NAC) and Metamizole (Dipyrone). CALCIUM (test code 8.5 MG/DL 8.5-10.1 N = CA) INDEX HEMOLYSIS 1 NORMAL <10 See_Comment [Automated message] (test code = MG Index/DL The system [employer] HEMINDEX) generated this result transmitted ref erence range: 1 NORMAL . The reference range was not used to int erpret this result as normal/abnormal . INDEX ICTERIC (test 1 NORMAL <2 MG See_Comment [Auto mated message] code = ICTINDEX) Index/DL The system which generated this result transmitted ref erence range: 1 NORMAL . The reference range was not used to int erpret this result as normal/abnormal . INDEX LIPEMIA (test 1 NORMAL <50 See_Comment [Automa marsha message] code = LIPINDEX) MG Index/DL The system which generated this result transmitted ref erence range: 1 NORMAL . The reference range was not used to int erpret this result as normal/abnormal . THROMBOPLASTIN TIME [id number] 06:22:00 Test Item Value Reference Interpretation Comments Range THROMBOPLASTIN TIME 35.4 SECONDS 24-37.7 N THERAPEU TIC RANGE FOR PARTIAL (test code UNFRACTIO NATED HEPARIN = = PTT) 50.5-83.6 SEC T his test is not recommen ded to monitor low molecularweight heparin or danaparoid. Order LMWH test COLLECTION THROUGH LINES THAT HAVE BEEN PREVIOUSLY FLUS HEDWITH HEPARIN SHOULD BE AVOIDED DUE TO POSSIBLE HEPARINCONTAMIN ATION Is this a LINE draw? NANTICOAGULANT THERAPY [Y,N]: YESANTICOAGULANT [H,C]: HEPARINGLUCOSE BEDSIDE [id number] 05:27:00 Test Item Value Reference Range Interpretation Comments GLUCOSE BEDSIDE TESTING (test code 107 MG/DL 70-119 N = GLUBED) GLUCOSE BEDSIDE [id number] 21:14:00 Test Item Value Reference Range Interpretation Comments GLUCOSE BEDSIDE TESTING (test code 136 MG/DL 70-119 H = GLUBED) GLUCOSE BEDSIDE [id number] 13:41:00 Test Item Value Reference Range Interpretation Comments GLUCOSE BEDSIDE TESTING (test code 152 MG/DL 70-119 H = GLUBED) GLUCOSE BEDSIDE [id number] 12:16:00 Test Item Value Reference Range Interpretation Comments GLUCOSE BEDSIDE TESTING (test code 150 MG/DL 70-119 H = GLUBED) THROMBOPLASTIN TIME [id number] 07:28:00 Test Item Value Reference Interpretation Comments Range THROMBOPLASTIN TIME 35.6 SECONDS 24-37.7 N THERAPEU TIC RANGE FOR PARTIAL (test code UNFRACTIO NATED HEPARIN = = PTT) 50.5-83.6 SEC T his test is not recommen ded to monitor low molecularweight heparin or danaparoid. Order LMWH test COLLECTION THROUGH LINES THAT HAVE BEEN PREVIOUSLY FLUS HEDWITH HEPARIN SHOULD BE AVOIDED DUE TO POSSIBLE HEPARINCONTAMIN ATION Is this a LINE draw? YANTICOAGULANT THERAPY [Y,N]: YESANTICOAGULANT [H,C]: HEPARINGLUCOSE BEDSIDE [id number] 06:01:00 Test Item Value Reference Range Interpretation Comments GLUCOSE BEDSIDE TESTING (test code = 88 MG/DL 70-119 N GLUBED) GLUCOSE BEDSIDE [id number] 21:07:00 Test Item Value Reference Range Interpretation Comments GLUCOSE BEDSIDE TESTING (test code 186 MG/DL 70-119 H = GLUBED) GLUCOSE BEDSIDE [id number] 17:14:00 Test Item Value Reference Range Interpretation Comments GLUCOSE BEDSIDE TESTING (test code 157 MG/DL 70-119 H = GLUBED) GLUCOSE BEDSIDE [id number] 12:12:00 Test Item Value Reference Range Interpretation Comments GLUCOSE BEDSIDE TESTING (test code 126 MG/DL 70-119 H = GLUBED) COMPREHENSIVE METABOLIC [id number] 06:57:00 Test Item Value Reference Range Interpretation Comments SODIUM (test code = 130.0 mmol/L 133-144 L NA) POTASSIUM (test 6.0 mmol/L 3.5-5.1 H code = K) CHLORIDE (test code 96 mmol/L 95-105 N = CL) CARBON DIOXIDE 21 mmol/L 21-32 (test code = CO2) ANION GAP (test 13.0 GAP calc 4.0-15.0 N code = GAP) GLUCOSE (test code 76 MG/DL 70-110 N = GLU) BLOOD UREA NITROGEN 70 MG/DL 7-18 H (test code = BUN) GLOMERULAR 4 estGFR >60 L The estimated FILTRATION RATE glomerular f iltration (test code = GFR) rate is co mputed usingpatient ra ce, age, sex, and s daniele creatinine. If any of theneeded data elements are mi ssing the Laboratory can notcompute an estimation of t he glomerular filt ration rate.The GFR va lue units = ml/min/ 1.73 meter squared. EstimatedGFR va lues above 60 should be interpreted as >60, not anexact number.--- DRUG DOSAGE ALERT -- - Drug dosage adjustme nts utilize differe nt calculationpara meters . CREATININE (test 12.20 MG/DL 0.55-1.30 HH Critical va lues are code = CREAT) excluded from call documentation d ue tothe patient diagnosis or th erapy protocols.Resul ts may be depressed if patient is takingN-Acetylc ystein e (NAC) and Metamizole (Dipyrone). TOTAL PROTEIN (test 7.9 G/DL 6.4-8.2 N code = PROT) ALBUMIN (test code 2.8 G/DL 3.4-5.0 L = ALB) ALBUMIN/GLOBULIN 0.5 RATIO 1.2-2.2 L RATIO (test code = A/G) CALCIUM (test code 8.4 MG/DL 8.5-10.1 L = CA) BILIRUBIN TOTAL 0.28 MG/DL 0.00-1.00 N (test code = BILT) BILIRUBIN DIRECT 0.12 MG/DL 0.00-0.30 N (test code = BILD) BILIRUBIN INDIRECT 0.16 MG/DL 0.2-1.3 L (test code = BILIND) SGOT/AST (test code 28 Unit/L 15-37 N = AST) SGPT/ALT (test code 23 Unit/L 12-78 N = ALT) ALKALINE 135 Unit/L 45-117 H PHOSPHATASE TOTAL (test code = ALKP) INDEX HEMOLYSIS 2 TRACE 10-25 See_Comment [Automated message] (test code = MG Index/DL The system [facility] [employer] HEMINDEX) generated this result transmitted ref erence range: 1 NORMAL . The reference range was not used to int erpret this result as normal/abnormal . INDEX ICTERIC (test 1 NORMAL <2 MG See_Comment [Auto mated message] code = ICTINDEX) Index/DL The system which generated this result transmitted ref erence range: 1 NORMAL . The reference range was not used to int erpret this result as normal/abnormal . INDEX LIPEMIA (test 1 NORMAL <50 See_Comment [Automa marsha message] code = LIPINDEX) MG Index/DL The system which generated this result transmitted ref erence range: 1 NORMAL . The reference range was not used to int erpret this result as normal/abnormal . GLUCOSE BEDSIDE [id number] 06:46:00 Test Item Value Reference Range Interpretation Comments GLUCOSE BEDSIDE TESTING (test code 104 MG/DL 70-119 N = GLUBED) THROMBOPLASTIN TIME [id number] 06:36:00 Test Item Value Reference Interpretation Comments Range THROMBOPLASTIN TIME 34.8 SECONDS 24-37.7 N THERAPEU TIC RANGE FOR PARTIAL (test code UNFRACTIO NATED HEPARIN = = PTT) 50.5-83.6 SEC T his test is not recommen ded to monitor low molecularweight heparin or danaparoid. Order LMWH test COLLECTION THROUGH LINES THAT HAVE BEEN PREVIOUSLY FLUS HEDWITH HEPARIN SHOULD BE AVOIDED DUE TO POSSIBLE HEPARINCONTAMIN ATION Is this a LINE draw? YANTICOAGULANT THERAPY [Y,N]: YESANTICOAGULANT [H,C]: HEPARINCBC W/AUTO [id number] 06:11:00 Test Item Value Reference Range Interpretation Comments WHITE BLOOD CELL (test code = 6.1 K/mm3 4.1-12.1 N WBC) RED BLOOD CELL (test code = RBC) 3.50 M/mm3 3.8-5.5 L HEMOGLOBIN (test code = HGB) 10.3 G/DL 10.6-15.8 L HEMATOCRIT (test code = HCT) 31.8 % 31.8-47.4 N MEAN CELL VOLUME (test code = 90.9 fL 80.1-101.1 N MCV) MEAN CELL HGB (test code = MCH) 29.4 pg 25.3-35.3 N MEAN CELL HGB CONCETRATION (test 32.4 G/DL 32.7-35.1 L code = MCHC) RED CELL DISTRIBUTION WIDTH 15.4 % 12.2-16.4 N (test code = RDW) RED CELL DISTRIBUTION WIDTH 50.4 fL 36.4-46.3 H (test code = RDW-SD) PLATELET COUNT (test code = PLT) 182 K/mm3 155-337 N MEAN PLATELET VOLUME (test code 11.6 fL 6.8-11.2 H = MPV) GRANULOCYTE % (test code = GR%) 55.1 % 37.8-82.6 N IMMATURE GRANULOCYTE % (test 1.5 % 0.0-2.0 N code = IG%) LYMPHOCYTE % (test code = LY%) 29.5 % 14.1-45.4 N MONOCYTE % (test code = MO%) 11.1 % 2.5-11.7 N EOSINOPHIL % (test code = EO%) 1.8 % 0.0-6.2 N BASOPHIL % (test code = BA%) 1.0 % 0.0-2.1 N NUCLEATED RBC % (test code = 0.3 /100WBC% 0.0-1.0 N NRBC%) GRANULOCYTE # (test code = GR#) 3.39 k/mm3 2.0-13.7 N IMMATURE GRANULOCYTE # (test 0.09 K/mm3 0.00-0.03 H code = IG#) LYMPHOCYTE # (test code = LY#) 1.81 K/mm3 0.6-3.8 N MONOCYTE # (test code = MO#) 0.68 K/mm3 0.11-0.59 H EOSINOPHIL # (test code = EO#) 0.11 K/mm3 0.0-0.4 N BASOPHIL # (test code = BA#) 0.06 K/mm3 0.0-0.1 N NUCLEATED RBC # (test code = 0.02 K/mm3 0.0-0.05 N NRBC#) GLUCOSE BEDSIDE [id number] 05:52:00 Test Item Value Reference Range Interpretation Comments GLUCOSE BEDSIDE TESTING (test code = 71 MG/DL 70-119 N GLUBED) AB HEPATITIS B [id number] 04:08:00 Test Item Value Reference Range Interpretation Comments AB HEPATITIS B CORE Negative Negative Performe d At: HD (test code = HBCAB) [facility] [id number] [place], [place] [id number] vivi Escamilla MD [phone] GLUCOSE BEDSIDE [id number] 20:36:00 Test Item Value Reference Range Interpretation Comments GLUCOSE BEDSIDE TESTING (test code 130 MG/DL 70-119 H = GLUBED) COMPREHENSIVE METABOLIC [id number] 08:16:00 Test Item Value Reference Range Interpretation Comments SODIUM (test code = 133.0 mmol/L 133-144 N NA) POTASSIUM (test 5.0 mmol/L 3.5-5.1 N code = K) CHLORIDE (test code 96 mmol/L 95-105 N = CL) CARBON DIOXIDE 27 mmol/L 21-32 N (test code = CO2) ANION GAP (test 10.0 GAP calc 4.0-15.0 N code = GAP) GLUCOSE (test code 80 MG/DL 70-110 N = GLU) BLOOD UREA NITROGEN 53 MG/DL 7-18 H (test code = BUN) GLOMERULAR 5 estGFR >60 L The estimated FILTRATION RATE glomerular f iltration (test code = GFR) rate is co mputed usingpatient ra ce, age, sex, and s daniele creatinine. If any of theneeded data elements are mi ssing the Laboratory can notcompute an estimation of t he glomerular filt ration rate.The GFR va lue units = ml/min/ 1.73 meter squared. EstimatedGFR va lues above 60 should be interpreted as >60, not anexact number.--- DRUG DOSAGE ALERT -- - Drug dosage adjustme nts utilize differe nt calculationpara meters . CREATININE (test 10.30 MG/DL 0.55-1.30 HH Critical va lues after code = CREAT) the first occu rrence are excluded fr omcall documentation requirements fo r this analyte due to thepatient diag nosis or therapy protocols.Resul ts may be depressed if patient is takingN-Acetylc ystein e (NAC) and Metamizole (Dipyrone). TOTAL PROTEIN (test 7.9 G/DL 6.4-8.2 N code = PROT) ALBUMIN (test code 2.9 G/DL 3.4-5.0 L = ALB) ALBUMIN/GLOBULIN 0.6 RATIO 1.2-2.2 L RATIO (test code = A/G) CALCIUM (test code 8.2 MG/DL 8.5-10.1 L = CA) BILIRUBIN TOTAL 0.25 MG/DL 0.00-1.00 N (test code = BILT) BILIRUBIN DIRECT 0.11 MG/DL 0.00-0.30 N (test code = BILD) BILIRUBIN INDIRECT 0.14 MG/DL 0.2-1.3 L (test code = BILIND) SGOT/AST (test code 35 Unit/L 15-37 N = AST) SGPT/ALT (test code 30 Unit/L 12-78 N = ALT) ALKALINE 134 Unit/L 45-117 H PHOSPHATASE TOTAL (test code = ALKP) INDEX HEMOLYSIS 1 NORMAL <10 See_Comment [Automated message] (test code = MG Index/DL The system [employer] HEMINDEX) generated this result transmitted ref erence range: 1 NORMAL . The reference range was not used to int erpret this result as normal/abnormal . INDEX ICTERIC (test 1 NORMAL <2 MG See_Comment [Auto mated message] code = ICTINDEX) Index/DL The system which generated this result transmitted ref erence range: 1 NORMAL . The reference range was not used to int erpret this result as normal/abnormal . INDEX LIPEMIA (test 1 NORMAL <50 See_Comment [Automa marsha message] code = LIPINDEX) MG Index/DL The system which generated this result transmitted ref erence range: 1 NORMAL . The reference range was not used to int erpret this result as normal/abnormal . THROMBOPLASTIN TIME [id number] 08:10:00 Test Item Value Reference Interpretation Comments Range THROMBOPLASTIN TIME 35.3 SECONDS 24-37.7 N THERAPEU TIC RANGE FOR PARTIAL (test code UNFRACTIO NATED HEPARIN = = PTT) 50.5-83.6 SEC T his test is not recommen ded to monitor low molecularweight heparin or danaparoid. Order LMWH test COLLECTION THROUGH LINES THAT HAVE BEEN PREVIOUSLY FLUS HEDWITH HEPARIN SHOULD BE AVOIDED DUE TO POSSIBLE HEPARINCONTAMIN ATION Is this a LINE draw? NANTICOAGULANT THERAPY [Y,N]: YESANTICOAGULANT [H,C]: HEPARINCBC W/AUTO [id number] 07:50:00 Test Item Value Reference Range Interpretation Comments WHITE BLOOD CELL (test code = 6.1 K/mm3 4.1-12.1 N WBC) RED BLOOD CELL (test code = RBC) 3.39 M/mm3 3.8-5.5 L HEMOGLOBIN (test code = HGB) 9.9 G/DL 10.6-15.8 L HEMATOCRIT (test code = HCT) 32.1 % 31.8-47.4 N MEAN CELL VOLUME (test code = 94.7 fL 80.1-101.1 N MCV) MEAN CELL HGB (test code = MCH) 29.2 pg 25.3-35.3 N MEAN CELL HGB CONCETRATION (test 30.8 G/DL 32.7-35.1 L code = MCHC) RED CELL DISTRIBUTION WIDTH 15.5 % 12.2-16.4 N (test code = RDW) RED CELL DISTRIBUTION WIDTH 53.9 fL 36.4-46.3 H (test code = RDW-SD) PLATELET COUNT (test code = PLT) 171 K/mm3 155-337 N MEAN PLATELET VOLUME (test code 11.9 fL 6.8-11.2 H = MPV) GRANULOCYTE % (test code = GR%) 49.9 % 37.8-82.6 N IMMATURE GRANULOCYTE % (test 0.3 % 0.0-2.0 N code = IG%) LYMPHOCYTE % (test code = LY%) 35.6 % 14.1-45.4 N MONOCYTE % (test code = MO%) 11.2 % 2.5-11.7 N EOSINOPHIL % (test code = EO%) 2.0 % 0.0-6.2 N BASOPHIL % (test code = BA%) 1.0 % 0.0-2.1 N NUCLEATED RBC % (test code = 0.0 /100WBC% 0.0-1.0 N NRBC%) GRANULOCYTE # (test code = GR#) 3.02 k/mm3 2.0-13.7 N IMMATURE GRANULOCYTE # (test 0.02 K/mm3 0.00-0.03 N code = IG#) LYMPHOCYTE # (test code = LY#) 2.16 K/mm3 0.6-3.8 N MONOCYTE # (test code = MO#) 0.68 K/mm3 0.11-0.59 H EOSINOPHIL # (test code = EO#) 0.12 K/mm3 0.0-0.4 N BASOPHIL # (test code = BA#) 0.06 K/mm3 0.0-0.1 N NUCLEATED RBC # (test code = 0.00 K/mm3 0.0-0.05 N NRBC#) THROMBOPLASTIN TIME [id number] 22:09:00 Test Item Value Reference Interpretation Comments Range THROMBOPLASTIN TIME 50.7 SECONDS 24-37.7 H THERAPEU TIC RANGE FOR PARTIAL (test code UNFRACTIO NATED HEPARIN = = PTT) 50.5-83.6 SEC T his test is not recommen ded to monitor low molecularweight heparin or danaparoid. Order LMWH test COLLECTION THROUGH LINES THAT HAVE BEEN PREVIOUSLY FLUS HEDWITH HEPARIN SHOULD BE AVOIDED DUE TO POSSIBLE HEPARINCONTAMIN ATION Is this a LINE draw? NANTICOAGULANT THERAPY [Y,N]: YESANTICOAGULANT [H,C]: HEPARINGLYCOSYLATED HEMOGLOBIN (HA1C)2021-01-10 15:08:00 Test Item Value Reference Range Interpretation Comments GLYCOSYLATED HEMOGLOBIN 6.6 % 4.8-5.6 H Pre diabetes: 5.7 - (HA1C) (test code = 6.4 Diab etes: >6.4 GLYHGB) Glycemic contro l for adults with jorge betes: <7.0Performed A t: HD [facility] [address] [place], [place] [id number] vivi Escamilla MD Ph:[phone] COVID 19 Asymptomatic IH [id number] 14:19:00 Test Item Value Reference Range Interpretation Comments COVID 19 Asymptomatic IH AG (test Negative Neg . code = COVNONPUIAG) THROMBOPLASTIN TIME [id number] 14:10:00 Test Item Value Reference Interpretation Comments Range THROMBOPLASTIN TIME 60.6 SECONDS 24-37.7 H THERAPEU TIC RANGE FOR PARTIAL (test code UNFRACTIO NATED HEPARIN = = PTT) 50.5-83.6 SEC T his test is not recommen ded to monitor low molecularweight heparin or danaparoid. Order LMWH test COLLECTION THROUGH LINES THAT HAVE BEEN PREVIOUSLY FLUS HEDWITH HEPARIN SHOULD BE AVOIDED DUE TO POSSIBLE HEPARINCONTAMIN ATION Is this a LINE draw? NANTICOAGULANT THERAPY [Y,N]: YESANTICOAGULANT [H,C]: HEPARINTHROMBOPLASTIN TIME [id number] 07:40:00 Test Item Value Reference Interpretation Comments Range THROMBOPLASTIN TIME 115.3 24-37.7 HH ON 12/13 04/02 AT 0738, PARTIAL (test code SECONDS B.LAB.BRD CALLED TO CLAUDIA = PTT) ADAMARIS.The repo rt was confirmed by re ad back protocols Y,N: Y.THERAPEUTIC R NABOR FOR UNFRACTIONATED HEPARIN = 50.5-83.6 SEC T his test is not recommen ded to monitor low molecularweight heparin or danaparoid. Order LMWH test COLLECTION THROUGH LINES THAT HAVE BEEN PREVIOUSLY FLUS HEDWITH HEPARIN SHOULD BE AVOIDED DUE TO POSSIBLE HEPARINCONTAMIN ATION ANTICOAGULANT THERAPY [Y,N]: YESANTICOAGULANT [H,C]: HEPARINLIPID PROFILE (CORONARY RISK)2021-01-10 02:06:00 Test Item Value Reference Range Interpretation Comments TRIGLYCERIDES (test code 126 mg/dL 0-149 Res ults may be = TRIG) depressed if pa tient is takingN-Acetylc ystei ne (NAC) and Metamizole (Dipyrone). CHOLESTEROL (test code = 169 mg/dL 100-199 CHOL) HDL CHOLESTEROL (test 43 mg/dL >39 code = HDL) LIPOPROTEIN LDL CAMI 103 mg/dL 0-99 A Performe d At: HD (test code = LDLC) [facility] [id number] [place], [place] [id number] Jagdeep Escamilla MD Ph:[phone] LIPOPROTEIN VLDL (test 23 mg/dL 5-40 code = VLDL) THROMBOPLASTIN TIME [id number] 01:33:00 Test Item Value Reference Interpretation Comments Range THROMBOPLASTIN TIME 87.0 SECONDS 24-37.7 H THERAPEU TIC RANGE FOR PARTIAL (test code UNFRACTIO NATED HEPARIN = = PTT) 50.5-83.6 SEC T his test is not recommen ded to monitor low molecularweight heparin or danaparoid. Order LMWH test COLLECTION THROUGH LINES THAT HAVE BEEN PREVIOUSLY FLUS HEDWITH HEPARIN SHOULD BE AVOIDED DUE TO POSSIBLE HEPARINCONTAMIN ATION ANTICOAGULANT THERAPY [Y,N]: YESANTICOAGULANT [H,C]: HEPARINTHROMBOPLASTIN TIME [id number] 19:13:00 Test Item Value Reference Interpretation Comments Range THROMBOPLASTIN TIME 64.5 SECONDS 24-37.7 H THERAPEU TIC RANGE FOR PARTIAL (test code UNFRACTIO NATED HEPARIN = = PTT) 50.5-83.6 SEC T his test is not recommen ded to monitor low molecularweight heparin or danaparoid. Order LMWH test COLLECTION THROUGH LINES THAT HAVE BEEN PREVIOUSLY FLUS HEDWITH HEPARIN SHOULD BE AVOIDED DUE TO POSSIBLE HEPARINCONTAMIN ATION Is this a LINE draw? NANTICOAGULANT THERAPY [Y,N]: YESANTICOAGULANT [H,C]: HEPARINAB HEPATITIS B [id number] 16:12:00 Test Item Value Reference Range Interpretation Comments AB HEPATITIS B 371.42 mIU/ML 0.00-8.00 H HBSAB IMMUNI TY SURFACE (test code INTERPRET ATION <8.00 = HBSAB) mIU/ML NON-Reac tive 8.00-12.00 mIU/ ML [employer] Immunity Interpretation Range>12.00 mIU /ML Reactive/Immune Values of 10 mIU/ML or greater are con sidered reactive (prote ctive) in accordance w ith the (CDC) Centers f or Disease Control guidelines. The accepted criter ion for immunity to HBV is anti-HBS activi ty >=10 mIU/ML as defin ed by (WHO) World Hea lth Organization. AG HEPATITIS B [id number] 16:12:00 Test Item Value Reference Range Interpretation Comments AG HEPATITIS B SURFACE NEG-NONREAC SCREEN Nonreactive (test code = HBSAG) - PULM VENT PERF [id number] 09:46:00 [facility] : 1970 Sex: F--- Patient Name: ROSA PINO Unit No: [id number] EXAMS: CPT CODE: [id number] PULM VENT PERF IMAG [id number] EXAM: - PULM VENT PERF IMAG INDICATION: cp elev ddimer T18 RADIOPHARMACEUTICAL: Inhalation of 10.2 mCi Xe-133 gas and intravenous injection of 5.1 mCi Tc 99 MAA. FINDINGS: Diminished sensitivity due to difficulty in patient positioning. Compared to chest x-ray performed on 01/08/2021. VENTILATION: Homogeneous uptake seen bilaterally. No defects seen. PERFUSION: Homogeneous uptake seen bilaterally. No defects seen apart from bilateral pleural effusions. IMPRESSION: Low probability ventilation perfusion scan. Diminished sensitivity. at 0946 Reported and signed by: Real Rodriguez MD Nuclear Medicine Cardiology exams performed on dual head cameras with appropriate software for processing and reporting. CC: Quoc Lewis MD; Lamin Schreiber NAME: ROSA PINO [facility] PHYS: Lamin Houston MD [address] [place] [address] : 1970 AGE: 50 SEX: Miri [place] [address] LOC: B.337 W PHONE #: [phone] EXAM DATE: 01/09/2021 STATUS: ADM IN FAX #: [phone] RAD NO: DC Dt: PAGE 1 Signed Report Patient Name: ROSA PINO Unit No: [id number] EXAMS: CPT CODE: [id number] PULM VENT PERF IMAG 11216 <Continued> Technologist: Gaby Cox Transcribed Date/Time: 01/09/2021 (0946) Fernando [email or web address].[email or web address] Orig Print D/T: S: 01/09/2021 (0949) MARTÍN Schreiber NAME: ROSA PINO [facility] PHYS: Lamin Houston MD [address] [place] [address] : 1970 AGE: 50 SEX: Miri [place] [address] LOC: B.337 W PHONE #: [phone] EXAM DATE: 01/09/2021 STATUS: ADM IN FAX #: [phone] RAD NO: DC Dt: PAGE 2 Signed ReportPT AND [id number] 07:59:00 Test Item Value Reference Interpretation Comments Range PT PATIENT (test 12.2 SECONDS 9.4-12.5 N code = PTP) INTERNATIONAL 1.05 INR 0.88-1.13 N NORMAL RATIO (test Unit --------- code = INR) ---------Therap eutic range for INR i s dependent upon the situation.2.0-3 .0 Prophylaxis / v enous thromboembolism , Treatment of DV T, Acute myocardial infa rction stroke preventi on, Systemic emboli sm prevention in fibrillation3.0 -4.5 AMI recurrence prev ention, Systemic emboli sm prevention in p rosthetic heart 3.0-5.4 A ID mortality reduc tion THROMBOPLASTIN TIME 33.4 SECONDS 24-37.7 N THERAPEU TIC RANGE FOR PARTIAL (test code UNFRACTIO NATED HEPARIN = = PTT) 50.5-83.6 SEC T his test is not recommen ded to monitor low molecularweight heparin or danaparoid. Order LMWH test COLLECTION THROUGH LINES THAT HAVE BEEN PREVIOUSLY FLUS HEDWITH HEPARIN SHOULD BE AVOIDED DUE TO POSSIBLE HEPARINCONTAMIN ATION Is this a LINE draw? NANTICOAGULANT THERAPY [Y,N]: [id number] 05:30:00 Test Item Value Reference Range Interpretation Comments TROPONIN-I 3.460 NG/ML 0.000-0.045 HH Critical values after the (test code = first occurrenc e are excluded TROPI) fromcall docume ntation requirements fo r this analyte due to thepatie nt diagnosis or therapy prot ocols.An elevated tropon in value alone is not sufficie nt todiagnose a myocardial in farction. Rather, the pat ient'sclinical presentation (h istory, physical exam) and ECGshould be used in conj unction with troponin in the diagnostic evaluation of s uspected myocardial infa rction. Aserial samplin g protocol is recommended to facilitate theidentificati on of temporal changes in trop onin levelscharacter istic of ID. BASIC METABOLIC [id number] 05:29:00 Test Item Value Reference Range Interpretation Comments SODIUM (test code = 133.0 mmol/L 133-144 N NA) POTASSIUM (test 5.7 mmol/L 3.5-5.1 H code = K) CHLORIDE (test code 98 mmol/L 95-105 N = CL) CARBON DIOXIDE 21 mmol/L 21-32 (test code = CO2) ANION GAP (test 14.0 GAP calc 4.0-15.0 N code = GAP) GLUCOSE (test code 146 MG/DL 70-110 H = GLU) BLOOD UREA NITROGEN 41 MG/DL 7-18 H (test code = BUN) CREATININE (test 9.28 MG/DL 0.55-1.30 HH Critical va lues are code = CREAT) excluded from call documentation d ue tothe patient diagnosis or th erapy protocols.Resul ts may be depressed if patient is takingN-Acetylc ystein e (NAC) and Metamizole (Dipyrone). CALCIUM (test code 8.4 MG/DL 8.5-10.1 L = CA) INDEX HEMOLYSIS 3 SMALL 25-50 See_Comment [Automated message] (test code = MG Index/DL The system [employer]) generated this result transmitted ref erence range: 1 NORMAL . The reference range was not used to int erpret this result as normal/abnormal . INDEX ICTERIC (test 1 NORMAL <2 MG See_Comment [Auto mated message] code = ICTINDEX) Index/DL The system which generated this result transmitted ref erence range: 1 NORMAL . The reference range was not used to int erpret this result as normal/abnormal . INDEX LIPEMIA (test 1 NORMAL <50 See_Comment [Automa marsha message] code = LIPINDEX) MG Index/DL The system which generated this result transmitted ref erence range: 1 NORMAL . The reference range was not used to int erpret this result as normal/abnormal . [id number] 05:29:00 Test Item Value Reference Range Interpretation Comments MAGNESIUM (test code = MAG) 2.5 MG/DL 1.6-2.6 N THYROID STIMULATING [id number] 05:29:00 Test Item Value Reference Range Interpretation Comments THYROID STIMULATING HORMONE 1.030 mc IU/ML 0.340-4.820 N (test code = TSH) [id number] 04:58:00 Test Item Value Reference Range Interpretation Comments D-DIMER (test 5102 FEUng/mL 0-500 HH ON 01/09/21 A T 0457, code = DDIMER) B.LAB.GP CALL ED TO NATALIA Conner. The report was conf irmed by read back audi radha Y,N: y.THE CUT-OFF V ALUE FOR EXCLUSION OF VT E = 500 FEU ng/mLNOTE: This method must be used with additional test s in theevaluation o f VTE and should not be u sed to exclude VTE wit hpretest probability rm ne. - CTA ABD PEL W [id number] 20:50:00 [facility] : 1970 Sex: F Patient Name: ROSA PINO Unit No: [id number] EXAMS: CPT CODE: [id number] CTA ABD PEL W CONT 29178 HISTORY: Chest pain, back pain COMPARISON:None TECHNIQUE: Axial tomograms through the chest, abdomen and pelvis were obtained after intravenous contrast utilizing a CTA protocol. One or more of the following dose reduction techniques were used: Automated exposure control, adjustment of the mA and/or kV according to patient size, and/or utilization of iterative reconstruction technique. FINDINGS:CTA chest: Aortic and coronary calcifications are noted. No evidence of aortic aneurysm or dissection. Scattered borderline prominent mediastinal lymph nodes are noted. Small left and moderate right pleural effusion are present. Patchy bibasilar consolidation is demonstrated with areas of perihilar opacity and interstitial edema. CT abdomen and pelvis: Aortic calcifications are present. No evidence of aortic aneurysm or dissection. Arterial phase imaging of the liver, spleen, pancreas, and adrenal show no significant abnormalities. The adrenals are somewhat atrophic bilaterally with multiple smallcysts present. No hydronephrosis. No abdominal fluid collection or adenopathy is demonstrated. Within the pelvis no fluid collection or pelvic adenopathy. No acute inflammatory process. The appendix is normal in appearance. No evidence of bowel obstruction. No free air or abscess. No evidence of focal colitis. IMPRESSION: 1. No evidence of aortic aneurysm or dissection. 2. Small left and moderate right pleural effusion. 3. Bibasilar consolidation. 4. Patchy perihilar opacity suggesting edema and/or pneumonia with interstitial thickening suggesting edema. 5. Bilateral renal cyst. No hydronephrosis. MARTÍN Schreiber NAME: ROSA PINO [address] [place] [address] PHYS: [facility]ennifer ConstantinoJohn [place] [address] : 1970 AGE: 50 SEX: F LOC: B.ERS PHONE #: [phone] EXAM DATE: 01/08/2021 STATUS: PRE ER FAX #: [phone] RAD #: D/C DT PAGE 1 Signed Report (CONTINUED) Patient Name: ROSA PINO Unit No: [id number] EXAMS: CPT CODE: [id number] CTA ABDPEL W CONT 54971 <Continued> at 2049 Reported and signed by: Hamzah Storm M.D. CC: Quoc Lewis MD Dictated Date/Time: 01/08/2021 (2049) Technologist: Brandi Francois CTDI: 0 DLP: 0 Trnscrpt: 01/08/2021 (2049) [email or web address] MARTÍN Schreiber NAME: ROSA PINO [address] [place] [address] PHYS: FLORLibiaQuoc YangJohn [place] [address] : 1970 AGE: 50 SEX: F LOC: B.ERS PHONE #: [phone] EXAM DATE: 01/08/2021 STATUS: PRE ER FAX #: [phone] RAD #: D/C DT PAGE 2 Signed Report Patient Name: ROSA PINO Unit No: [id number] EXAMS: CPT CODE: [id number] CTA ABD PEL W CONT 45860 <Continued> Orig Print D/T: S: 01/08/2021 (2053) [facility] Candie NAME: ROSA PINO [address] [place] [address] Blvd PHYS: NANCY - Quoc Lewis, [place] [address] : 1970 AGE: 50 SEX: F LOC: PUMA PHONE #: [phone] EXAM DATE: 01/08/2021 STATUS: PRE ER FAX #: [phone] RAD #: D/C DT PAGE 3 Signed Report- CT ANGIO CHEST 2021-01-08 20:50:00 [facility] : 1970 Sex: F Patient Name: ROSA PINO Unit No: [id number] EXAMS: CPT CODE: [id number] CT ANGIO CHEST 27516 HISTORY: Chest pain, back pain COMPARISON:None TECHNIQUE: Axial tomograms through the chest, abdomen and pelvis were obtained after intravenous contrast utilizing a CTA protocol. One or more of the following dose reduction techniques were used: Automated exposure control, adjustment of the mA and/or kV according to patient size, and/or utilization of iterative reconstruction technique. FINDINGS: CTA chest: Aortic and coronary calcifications are noted. No evidence of aortic aneurysm or dissection. Scattered borderline prominent mediastinal lymph nodes are noted. Small left and moderate right pleural effusion are present. Patchy bibasilar consolidation is demonstrated with areas of perihilar opacity and interstitial edema. CT abdomen and pelvis: Aortic calcifications are present. No evidence of aortic aneurysm or dissection. Arterial phase imaging of the liver, spleen, pancreas, and adrenal showno significant abnormalities. The adrenals are somewhat atrophic bilaterally with multiple small cysts present. No hydronephrosis. No abdominal fluid collection or adenopathy is demonstrated. Within the pelvis no fluid collection or pelvic adenopathy. No acute inflammatory process. The appendix is normal in appearance. No evidence of bowel obstruction. No free air or abscess. No evidence of focal colitis. IMPRESSION: 1. No evidence of aortic aneurysm or dissection. 2. Small left and moderate right pleural effusion. 3. Bibasilar consolidation. 4. Patchy perihilar opacity suggesting edema and/or pneumonia with interstitial thickening suggesting edema. 5. Bilateral renal cyst. No hydronephrosis. MARTÍN Schreiber NAME: ROSA PINO [address] [place] [address] PHYS: [facility] [place], [place] [address] : 1970 AGE: 50 SEX: F LOC: B.ERS PHONE #: [phone] EXAM DATE: 01/08/2021 STATUS: PRE ER FAX #: [phone] RAD #: D/C DT PAGE 1 Signed Report (CONTINUED) Patient Name: ROSA PINO Unit No: [id number] EXAMS: CPT CODE: [id number] CT ANGIO CHEST 51774 <Continued> at 2049 Reported and signed by: Hamzah Storm M.D. CC: Quoc Lewis MD Dictated Date/Time: 01/08/2021 (2049)Technologist: Brandi Francois CTDI: 21.13 DLP: 905 Trnscrpt: 01/08/2021 (2049) [email or web address] [facility]ITAL[facility] NAME: ROAS PINO [address] [place] [address] PHYS: [facility]. [place], [place] [address] : 1970 AGE: 50 SEX: F LOC: B.ERS PHONE #: [phone] EXAM DATE: 01/08/2021 STATUS: PRE ER FAX #: [phone] RAD #: D/C DT PAGE 2 Signed Report Patient Name: ROSA MEDINA Unit No: [id number] EXAMS: CPT CODE: [id number] CT ANGIO CHEST 13613 <Continued> Orig Print D/T: S: 01/08/2021 (2053) MARTÍN Schreiber NAME: ROSA PINO [address] [place] [address] Blvd PHYS: Quoc Mathur, [place] [address] : 1970 AGE: 50 SEX: F LOC: B.ERS PHONE #: [phone] EXAM DATE: 01/08/2021 STATUS: PRE ER FAX #: [phone] RAD #: D/C DT PAGE 3 Signed ReportB-TYPE NATRIURETIC [id number] 19:21:00 Test Item Value Reference Range Interpretation Comments B-TYPE NATRIURETIC PEPTIDE 1726.51 PG/ML 0.00-100.00 H (test code = BNP) COMPREHENSIVE METABOLIC [id number] 18:35:00 Test Item Value Reference Range Interpretation Comments SODIUM (test code = 134.0 mmol/L 133-144 N NA) POTASSIUM (test code 4.5 mmol/L 3.5-5.1 N = K) CHLORIDE (test code 98 mmol/L 95-105 N = CL) CARBON DIOXIDE (test 28 mmol/L 21-32 N code = CO2) ANION GAP (test code 8.0 GAP calc 4.0-15.0 N = GAP) GLUCOSE (test code = 293 MG/DL 70-110 H GLU) BLOOD UREA NITROGEN 36 MG/DL 7-18 H (test code = BUN) GLOMERULAR 6 estGFR >60 L The estimated FILTRATION RATE glomerular (test code = GFR) filtration rate is computed usingpatient ra ce, age, sex, and s daniele creatinine. If any of theneeded da ta elements are mi ssing the Laboratory can notcompute an estimation of t he glomerular filtration rate .The GFR value units = ml/min/1.73 met er squared. EstimatedGFR va lues above 60 should be interpreted as >60, not anexact number.--- DRUG DOSAGE ALERT -- - Drug dosage adjustments uti lize different calculationpara meter s. CREATININE (test 8.72 MG/DL 0.55-1.30 HH ON 01/08/21 AT 1834, code = CREAT) [id number] BAUTISTA D TO PIERRE DASILVAGio Huerta. The report was confirmed by re ad back protocols Y,N:Y .Results may be depressed if chin rodriguez is takingN-Acetylc ystei ne (NAC) and Metamizole (Dipyrone). TOTAL PROTEIN (test 8.9 G/DL 6.4-8.2 H code = PROT) ALBUMIN (test code = 3.2 G/DL 3.4-5.0 L ALB) ALBUMIN/GLOBULIN 0.6 RATIO 1.2-2.2 L RATIO (test code = A/G) CALCIUM (test code = 8.2 MG/DL 8.5-10.1 L CA) BILIRUBIN TOTAL 0.31 MG/DL 0.00-1.00 N (test code = BILT) BILIRUBIN DIRECT 0.11 MG/DL 0.00-0.30 N (test code = BILD) BILIRUBIN INDIRECT 0.20 MG/DL 0.2-1.3 N (test code = BILIND) SGOT/AST (test code 19 Unit/L 15-37 N = AST) SGPT/ALT (test code 41 Unit/L 12-78 N = ALT) ALKALINE PHOSPHATASE 159 Unit/L 45-117 H TOTAL (test code = ALKP) INDEX HEMOLYSIS 3 SMALL 25-50 See_Comment [Automated message] (test code = MG Index/DL The system whic h HEMINDEX) generated this result transmit marsha reference range : 1 NORMAL. The reference range was not used to interpret this result as normal/abnormal . INDEX ICTERIC (test 1 NORMAL <2 MG See_Comment [Auto mated message] code = ICTINDEX) Index/DL The system which generated this result transmit marsha reference range : 1 NORMAL. The reference range was not used to interpret this result as normal/abnormal . INDEX LIPEMIA (test 1 NORMAL <50 See_Comment [Automa marsha message] code = LIPINDEX) MG Index/DL The system which generated this result transmit marsha reference range : 1 NORMAL. The reference range was not used to interpret this result as normal/abnormal . [id number] 18:35:00 Test Item Value Reference Range Interpretation Comments TROPONIN-I 0.640 NG/ML 0.000-0.045 HH ON 01/08/21 AT 1834, 4MPN2843 (test code = CALLED TO [facility]. TROPI) The report was confirmed by read back audi radha Y,N:Y . Critical values after the first occurrenc e are excluded.An yudith vated troponin value alone is not sufficient todiagnose a my ocardial infarction. Rat her, the patient'sclinic al presentation (h istory, physical exam) and ECGshould be used in conj unction with troponin in the diagnostic evaluation of s uspected myocardial infa rction. Aserial samplin g protocol is recommended to facilitate theidentificati on of temporal changes in trop onin levelscharacter istic of ID. - XR CHEST 1 [id number] 18:00:00 [facility] ESTHELA PINOLivan BELTRAN : 1970 Sex: F FAX: Linus Love MD [phone] [place]: E St: PRE Patient Name: ROSA PINO Unit No: [id number] EXAMS: CPT CODE:[id number] XR CHEST 1 V 23842 Site ID: [id number] HISTORY: Chest pain FINDINGS: Small bilateral pleural effusions with bilateral lung base atelectasis. Borderline cardiomegaly, with diffuse pulmonary vascular e ngorgement. Osseous structures are unremarkable. IMPRESSION: Small bilateral pleural effusions with mild basilar atelectasis. at 1800 Reported and signed by: Jaxson Pulliam M.D. CC: Linus Raines MD Dictated Date/Time: 01/08/2021 (1800)T echnologist: Gaby Cox Transcribed Date/Time: 01/08/2021 (1800) By: [email or web address] Orig Print D/T: S: 01/08/2021 (1803) [facility] Candie NAME: ROSA PINO [address] [place] [address] Bl PHYS:Linus Lockhart [place], [place] [address] : 1970 AGE: 50 SEX: F LOC: PUMA PHONE #: [phone] EXAM DATE: 01/08/2021 STATUS: PRE ER FAX #: [phone] RAD NO: DC Dt: PAGE 1 Signed ReportCBC W/AUTO [id number] 17:56:00 Test Item Value Reference Range Interpretation Comments WHITE BLOOD CELL (test code = 5.9 K/mm3 4.1-12.1 N WBC) RED BLOOD CELL (test code = RBC) 3.67 M/mm3 3.8-5.5 L HEMOGLOBIN (test code = HGB) 10.9 G/DL 10.6-15.8 N HEMATOCRIT (test code = HCT) 34.8 % 31.8-47.4 N MEAN CELL VOLUME (test code = 94.8 fL 80.1-101.1 N MCV) MEAN CELL HGB (test code = MCH) 29.7 pg 25.3-35.3 N MEAN CELL HGB CONCETRATION (test 31.3 G/DL 32.7-35.1 L code = MCHC) RED CELL DISTRIBUTION WIDTH 15.1 % 12.2-16.4 N (test code = RDW) RED CELL DISTRIBUTION WIDTH 52.7 fL 36.4-46.3 H (test code = RDW-SD) PLATELET COUNT (test code = PLT) 214 K/mm3 155-337 N MEAN PLATELET VOLUME (test code 11.4 fL 6.8-11.2 H = MPV) GRANULOCYTE % (test code = GR%) 74.1 % 37.8-82.6 N IMMATURE GRANULOCYTE % (test 0.5 % 0.0-2.0 N code = IG%) LYMPHOCYTE % (test code = LY%) 16.5 % 14.1-45.4 N MONOCYTE % (test code = MO%) 6.8 % 2.5-11.7 N EOSINOPHIL % (test code = EO%) 1.4 % 0.0-6.2 N BASOPHIL % (test code = BA%) 0.7 % 0.0-2.1 N NUCLEATED RBC % (test code = 0.0 /100WBC% 0.0-1.0 N NRBC%) GRANULOCYTE # (test code = GR#) 4.36 k/mm3 2.0-13.7 N IMMATURE GRANULOCYTE # (test 0.03 K/mm3 0.00-0.03 N code = IG#) LYMPHOCYTE # (test code = LY#) 0.97 K/mm3 0.6-3.8 N MONOCYTE # (test code = MO#) 0.40 K/mm3 0.11-0.59 N EOSINOPHIL # (test code = EO#) 0.08 K/mm3 0.0-0.4 N BASOPHIL # (test code = BA#) 0.04 K/mm3 0.0-0.1 N NUCLEATED RBC # (test code = 0.00 K/mm3 0.0-0.05 N NRBC#) SARS-CoV-2 (COVID-19) RNA [Presence] in Respiratory specimen by AUDRA with probe [id number] 03:07:19 Test Item Value Reference Range Interpretation Comments SARS-CoV-2 (COVID-19) RNA Not detected Not-Detected [Presence] in Respiratory specimen by AUDRA with probe detection (test code = 71821-4) [facility]-CoV-2 (COVID-19) RNA [Presence] in Respiratory specimen by AUDRA with probe [id number] 22:54:39 Test Item Value Reference Range Interpretation Comments SARS-CoV-2 (COVID-19) RNA Not detected Not-Detected [Presence] in Respiratory specimen by AUDRA with probe detection (test code = 66662-7) [facility]-COV2/RT-PCR ([facility]) 2019-10-03 11:15:00 Test Item Value Reference Range Interpretation Comments SARS-COV2/RT-PCR (test Positive Not Detected, Negative, AA code = 7735124) See external report for linked test SARS-COV-2 PERFORMING LAB [facility] (test code = 5846004) Results are for the detection of SARS-CoV-2 [...] for this assay is 800 copies/mL.This SARS CoV-2 test is a real-time RT-PCR test intended for the qualitative detection of nucleic acid from SARS-CoV-2 in a nasopharyngeal swab specimen collected from individuals suspected of COVID-19 by their healthcare provider.This test has not been Food and Drug Administration (FDA) cleared or approved. This is a modified version of an approvedEmergency Use Authorization (EUA) and is in the process of review by the FDA. Once authorized by theFDA, the issued EUA will be effective until the declaration that circumstances exist justifying the a uthorization of the emergency use of in vitro diagnostic tests for detection and/or diagnosis of COVID-19 is terminated under Section 564(b)(2) of the Act or the EUA is revoked under Section 564(g) of the Act.Fact Sheet for Healthcare Providers:https://www.[employer].com/sites/default/files/product/documen ts/Lyri_Zcylx_PJ_Bfmcdpupg_Nkau_FROQ-MkP-3.pdfFact Sheet for Healthcare Patients:https://www.[employer].c om/sites/default/files/product/documents/Kixk_Rnllm_Ytthbkng_Ewdj_BEMS-IbS-3.pdf Performing Laboratory:[place] [address] [address].[place] [id number] 18:35:00 Test Item Value Reference Range Interpretation Comments Potassium WB (test code = Potassium WB) 4.7 3.5-5.1 [facility]myq[facility]ujHDMXQAWJAMUQ5242-50-56 18:35:00 Test Item Value Reference Range Interpretation Comments Potassium WB (test code = Potassium WB) 4.7 3.5-5.1 [facility] HospitalWtdihxfJPAWXFWGQHEJ9757-21-35 18:35:00 Test Item Value Reference Range Interpretation Comments Potassium WB (test code = Potassium WB) 4.7 3.5-5.1 [facility] HospitalJjdlkgsSCURGZWZRDVI8664-71-11 18:35:00 Test Item Value Reference Range Interpretation Comments Potassium WB (test code = Potassium WB) 4.7 3.5-5.1 [facility] HospitalJqyitdqSTNUVUGCIDKM4038-91-41 18:35:00 Test Item Value Reference Range Interpretation Comments Potassium WB (test code = Potassium WB) 4.7 3.5-5.1 [facility] HospitalOckkqafCWLLAFMIMKPZ1378-39-22 18:35:00 Test Item Value Reference Range Interpretation Comments Potassium WB (test code = Potassium WB) 4.7 3.5-5.1 [facility] HospitalIaxmctfLLHRNTHMBYRL5005-56-77 18:35:00 Test Item Value Reference Range Interpretation Comments Potassium WB (test code = Potassium WB) 4.7 3.5-5.1 [facility] HospitalBlpwxvzSIEOWOFULJUP6097-41-68 18:35:00 Test Item Value Reference Range Interpretation Comments Potassium WB (test code = Potassium WB) 4.7 3.5-5.1 [facility] HospitalIyrlobzPHBTCAOALQAB8966-61-06 18:35:004.7[facility] 2019-04-19 18:35:004.7[facility] BrvvbbuZOJMUQGHRPDD2541-07-01 18:35:00 Test Item Value Reference Range Interpretation Comments Potassium WB (test code = Potassium WB) 4.7 3.5-5.1 [facility] HospitalVzfwxpwILFEOHPRHWNH5932-91-85 18:35:00 Test Item Value Reference Range Interpretation Comments Potassium WB (test code = Potassium WB) 4.7 3.5-5.1 [facility] HospitalOzm[id number] 18:35:004.7[facility]annELECTROLYTES 2019-04-19 18:35:004.7[facility] HermannBlood Gas+Lytes+Glu+Ca+Hgb+Hct+LA 2017-06-27 12:22:00 Test Item Value Reference [...] 0.7 mmol/L (test code = BGLA) HEMOGLOBIN [id number] 08:30:00 Test Item Value Reference Range Interpretation Comments HEMOGLOBIN A1C ([facility]) (test code = 5.3 % 4.3-6.1 368) POCT-GLUCOSE [id number] 07:28:00 Test Item Value Reference Range Interpretation Comments POC-GLUCOSE METER 78 mg/dL 70-110 TESTED AT [facility] ([facility]) (test code = TANISHA Hutson [facility] [address] 1538) POCT-GLUCOSE [id number] 20:51:00 Test Item Value Reference Range Interpretation Comments POC-GLUCOSE METER 49 mg/dL 70-110 L Will Repea t Test/TESTED ([facility]) (test code = AT [facility] [address] [facility] 1538) [facility] 7703 0 POCT-GLUCOSE [id number] 18:20:00 Test Item Value Reference Range Interpretation Comments POC-GLUCOSE METER 188 mg/dL 70-110 H TESTED AT [place] [address] ([facility]) (test code = TANISHA Hutson [facility] 1538) [address] T4, [id number] 17:50:00 Test Item Value Reference Range Interpretation Comments FREE T4 ([facility]) (test code = 655) 1.31 ng/dL 0.70-1.48 SEDIMENTATION [id number] 17:38:00 Test Item Value Reference Range Interpretation Comments SEDIMENTATION RATE, ERYTHROCYTE 103 mm/HR 0-20 H ([facility]) (test code = 766) TSH/FREE T4 IF [id number] 16:25:00 Test Item Value Reference Range Interpretation Comments THYROID STIMULATING HORMONE 0.30 uIU/mL 0.35-4.94 L ([facility]) (test code = 772) CREATINE KINASE (CK), TOTAL AND [id number] 16:08:00 Test Item Value Reference Range Interpretation Comments CREATINE KINASE TOTAL ([facility]) 111 U/L 29-200 (test code = 380) CREATINE KINASE-MB ([facility]) (test 4.8 ng/mL 0.0-6.6 code = 750) CREATINE KINASE-MB INDEX ([facility]) 4.3 % (test code = 395) CK-MB Reference Range:<6.7 Normal6.7-10.0 Borderline>10.0 AbnormalTROPONIN [id number] 16:08:00 Test Item Value Reference Range Interpretation [...] 395) CK-MB Reference Range:<6.7 Normal6.7-10.0 Borderline>10.0 AbnormalTROPONIN [id number] 16:07:00 Test Item Value Reference Range Interpretation [...] failure, acidosis, acute neurological disease, and persistent tachyarrhythmia.[id number] 15:59:00 Test Item Value Reference Range Interpretation Comments PHOSPHORUS (BEAKER) (test code = 5.1 mg/dL 2.3-4.7 H 604) LIPID [id number] 15:59:00 Test Item Value Reference Range Interpretation Comments TRIGLYCERIDES (BEAKER) (test code = 64 mg/dL 540) CHOLESTEROL (BEAKER) (test code = 112 mg/dL 631) HDL CHOLESTEROL (BEAKER) (test code 36 mg/dL = 976) LDL CHOLESTEROL CALCULATED (BEAKER) 63 mg/dL (test code = 633) Triglyceride Reference Range: Low Risk <150 Borderline 150-199 High Risk 200- 499 Very High Risk >=500Cholesterol Reference Range: Low Risk <200 Borderline 200-239 High Risk >240HDL Cholesterol Reference Range: Low Risk >=60 High Risk <40LDL Cholesterol Reference Range: Optimal <100 Near Optimal 100-129 Borderline 130-159 High 160-189 Very High >=190HEPATIC FUNCTION [id number] 15:59:00 Test Item Value Reference Range Interpretation [...] code = 10 U/L 6-55 347) C-REACTIVE [id number] 15:59:00 Test Item Value Reference Range Interpretation Comments C-REACTIVE PROTEIN (BEAKER) (test 0.52 mg/dL 0.00-0.50 H code = 676) BASIC METABOLIC [id number] 15:59:00 Test Item Value Reference Range Interpretation [...] PATIEN TS. CBC W/PLT COUNT & AUTO [id number] 15:16:00 Test Item Value Reference Range Interpretation [...] PERCENT (BEAKER) (test code = 2801) PROTHROMBIN TIME/[id number] 15:08:00 Test Item Value Reference Range Interpretation Comments PROTIME (BEARNAV) (test code = 16.0 seconds 11.7-14.7 H 759) INR ([facility]) (test code = 370) 1.3 <=5.9 RECOMMENDED COUMADIN/WARFARIN INR THERAPY RANGESSTANDARD DOSE: 2.0 - 3.0 Includes: PROPHYLAXIS for venous thrombosis, systemic embolization; TREATMENT for venous thrombosis and/or pulmonary embolus.HIGH RISK: Target INR is 2.5-3.5 for patients with mechanical heart valves.POCT-GLUCOSE [id number] 12:04:00 Test Item Value Reference Range Interpretation Comments POC-GLUCOSE METER 187 mg/dL 70-110 H TESTED AT [facility] ([facility]) (test code = TANISHA Hutson [facility] 1538) [address] POCT-GLUCOSE [id number] 09:11:00 Test Item Value Reference Range Interpretation Comments POC-GLUCOSE METER 83 mg/dL 70-110 TESTED AT [place] [address] ([facility]) (test code = [facility] [address] 1538) MR, BRAIN, WITHOUT [id number] 00:47:00PT started dialysis 07/12/2015Reason for exam:->Sudden onset [...] hypertension is not excluded. Mild paranasal sinus disease.Signed: JR Astorga Robert MDReport Verified Date/Time: 02/23/2017 00:47:16 Reading Location: [facility] C013Y CT Body Reading Room AFB CULTURE + [id number] 07:45:00 Test Item Value Reference Range Interpretation Comments CULTURE (BEAKER) (test No acid-fast bacilli code = 1095) isolated in 42 days AFB SMEAR (BEAKER) No acid fast bacilli (test code = 994) seen AFB CULTURE + [id number] 07:45:00 Test Item Value Reference Range Interpretation Comments CULTURE (BEAKER) (test No acid-fast bacilli code = 1095) isolated in 42 days AFB SMEAR (BEAKER) No acid fast bacilli (test code = 994) seen FUNGUS CULTURE + [id number] 18:17:00 Test Item Value Reference Range Interpretation Comments CULTURE (BEAKER) (test No fungus isolated in code = 1095) 28 days FUNGUS SMEAR (BEAKER) No fungi seen (test code = 1406) FUNGUS CULTURE + [id number] 18:17:00 Test Item Value Reference Range Interpretation Comments CULTURE (BEAKER) (test No fungus isolated in code = 1095) 28 days FUNGUS SMEAR (BEAKER) No fungi seen (test code = 1406) AFB CULTURE + [id number] 14:52:00 Test Item Value Reference Range Interpretation Comments CULTURE (BEAKER) (test No acid-fast bacilli code = 1095) isolated in 42 days AFB SMEAR (BEAKER) No acid fast bacilli (test code = 994) seen AB SPECIFICITY CLASS [id number] 10:13:00 Test Item Value Reference Range Interpretation Comments DATE OF SERUM (BEAKER) (test code = 251987 4752) SERUM # (BEAKER) (test code = 2290) 787004 AB SPECIFICITY CLASS I (BEAKER) (test code = 2429) AB SPECIFICITY CLASS [id number] 10:13:00 Test Item Value Reference Range Interpretation Comments DATE OF SERUM (BEAKER) 804980 (test code = 2289) SERUM # (BEAKER) (test 277812 code = 2290) AB SPECIFICITY CLASS II See Scanned Report (BEAKER) (test code = 2430) HERPES VIRUS ANTIBODY, [id number] 14:21:00 Test Item Value Reference Range Interpretation Comments HERPES VIRUS IGM Negative HSV 1 IGM = NEGHSV 2 (BEAKER) (test code = IGM = NEG 1808) TOXOPLASMA GONDII ANTIBODY, [id number] 14:21:00 Test Item Value Reference Range Interpretation Comments TOXOPLASMA IGM ANTIBODY (BEAKER) Negative (test code = 742) FLOW PRA CLASS I AND [id number] 15:15:00 Test Item Value Reference Range Interpretation Comments DATE OF SERUM (BEAKER) 233978 (test code = 2289) SERUM # (BEAKER) (test 604208 code = 2290) FLOW PRA CLASS I AND II See Scanned Report (test code = 2421) VARICELLA ZOSTER ANTIBODY, [id number] 14:59:00 Test Item Value Reference Range Interpretation Comments VARICELLA ZOSTER IGG (AL) (BEAKER) 5.8 Al (test code = 3197) VARICELLA ZOSTER RESULT INTERPRETATIONS: <=0.8 Al Nonreactive: Presumed non- immune to VZV 0.9-1.0Al Equivocal >=1.1 Al Reactive: Presumed immune to VZV CT, [id number] 14:16:00PT started dialysis 07/12/2015Addendum BeginsREPORT STATUS:A The original report incorrectly states that the procedure was performed with intravenous contrast. In fact, the procedure was performed without intravenous contrast. Signed: Joann Guillen MDReport Verified Date/Time: 01/13/2017 14:16:42 Reading Location: [facility] B1 C013X Ortho Consult Reading RoomAddendum [...] atherosclerotic plaque of the abdominal aorta and iliacarteries. IVC and iliac veins are unremarkable. No bowel obstruction or bowel mass is demonstrated. T here is diffuse mild ascites. BONES and SOFT TISSUES: No suspicious osseous lesion is demonstrated. No significant osseous degenerative changes. Soft tissues are notable for laparotomy wound with apparent packing material in open portion of the wound. IMPRESSION: No evidence of malignancy in the chest, abdomen, or pelvis. Mild cardiomegaly and coronary artery calcification. Bilateral moderate pleuraleffusions. A few punctate calcifications in the head of the pancreas, suspicious for chronic pancreatitis. Prior cholecystectomy and hysterectomy. Moderate atherosclerosis of the abdominal aorta and iliac arteries. Upper laparotomy wound with apparent packing material in open part of wound. Signed: Joann Guillen MDReport Verified Date/Time: 01/06/2017 23:49:19 Reading Location: [facility] C013W Consult Reading Room CT, CHEST, WITHOUT CONTRAST 2017-01-13 14:16:00PT started dialysis 07/12/2015Addendum BeginsREPORT STATUS:A The original report incorrectly states that the procedure was performed with intravenous contrast. In fact, the procedure was performed without intravenous contrast. Signed: Joann Guillen MDReport Verified Date/Time: 01/13/2017 14:16:42 Reading Location: [facility] B1 C013X Ortho Consult Reading RoomAddendum EndsFINAL REPORT INDICATI ON:46-year-old female preheart transplant evaluation. COMPARISON: None. TECHNIQUE: [...] atherosclerotic plaque of the abdominal aorta and iliacarteries. IVC and iliac veins are unremarkable. No bowel obstruction or bowel mass is demonstrated. T here is diffuse mild ascites. BONES and SOFT TISSUES: No suspicious osseous lesion is demonstrated. No significant osseous degenerative changes. Soft tissues are notable for laparotomy wound with apparent packing material in open portion of the wound. IMPRESSION: No evidence of malignancy in the chest, abdomen, or pelvis. Mild cardiomegaly and coronary artery calcification. Bilateral moderate pleuraleffusions. A few punctate calcifications in the head of the pancreas, suspicious for chronic pancreatitis. Prior cholecystectomy and hysterectomy. Moderate atherosclerosis of the abdominal aorta and iliac arteries. Upper laparotomy wound with apparent packing material in open part of wound. Signed: Joann Guillen MDReport Verified Date/Time: 01/06/2017 23:49:19 Reading Location: [facility] C013W Consult Reading Room BASI METABOLIC PANEL 2017-01-13 14:06:00 Test Item Value Reference Range Interpretation [...] S NOT APPLICABLE FOR DIALYSIS PATIEN TS. [id number] 14:04:00 Test Item Value Reference Range Interpretation Comments MAGNESIUM (BEAKER) (test code = 1.7 mg/dL 1.6-2.6 627) PROTHROMBIN [id number] 13:52:00 Test Item Value Reference Range Interpretation Comments PROTIME (BEAKER) (test code = 16.5 seconds 11.7-14.7 H 759) INR (BEAKER) (test code = 370) 1.3 <=5.9 RECOMMENDED COUMADIN/WARFARIN INR THERAPY RANGESSTANDARD DOSE: 2.0 - 3.0 Includes: PROPHYLAXIS for [...] 0-0 (BEAKER) (test code = 413) POCT-GLUCOSE [id number] 07:33:00 Test Item Value Reference Range Interpretation Comments POC-GLUCOSE METER 82 mg/dL 70-110 TESTED AT [place] [address] ([facility]) (test code = [facility] [address] 1538) POCT-GLUCOSE [id number] 22:10:00 Test Item Value Reference Range Interpretation Comments POC-GLUCOSE METER 118 mg/dL 70-110 H TESTED AT [place] [address] ([facility]) (test code = [facility] Caryl [facility] 1538) [address] POCT-GLUCOSE [id number] 16:58:00 Test Item Value Reference Range Interpretation Comments POC-GLUCOSE METER 102 mg/dL 70-110 TESTED AT [place] [address] ([facility]) (test code = TANISHA Hutson [facility] 1538) [address] POCT-GLUCOSE [id number] 07:43:00 Test Item Value Reference Range Interpretation Comments POC-GLUCOSE METER 93 mg/dL 70-110 TESTED AT [place] [address] ([facility]) (test code = TANISHA Hutson [facility] [address] 1538) POCT-GLUCOSE [id number] 21:58:00 Test Item Value Reference Range Interpretation Comments POC-GLUCOSE METER 130 mg/dL 70-110 H TESTED AT [place] [address] ([facility]) (test code = TANISHA Hutson [facility] 1538) [address] POCT-GLUCOSE [id number] 17:59:00 Test Item Value Reference Range Interpretation Comments POC-GLUCOSE METER 144 mg/dL 70-110 H TESTED AT [place] [address] ([facility]) (test code = TANISHA Hutson [facility] 1538) [address] CYTOMEGALOVIRUS ANTIBODY, [id number] 15:45:00 Test Item Value Reference Range Interpretation Comments CYTOMEGALOVIRUS IGG ANTIBODY Negative ([facility]) (test code = 790) CYTOMEGALOVIRUS ANTIBODY, [id number] 15:45:00 Test Item Value Reference Range Interpretation Comments CYTOMEGALOVIRUS IGM ANTIBODY Negative ([facility]) (test code = 816) HERPES VIRUS ANTIBODY, [id number] 15:45:00 Test Item Value Reference Range Interpretation Comments HERPES VIRUS IGG Positive HSV 1 IGG = POSHSV 2 ([facility]) (test code = IGG = POS 1807) EBV-VCA ANTIBODY, [id number] 15:45:00 Test Item Value Reference Range Interpretation Comments GIO-NICK VCA IGG (BEAKER) (test Positive code = 983) EBV-VCA ANTIBODY, [id number] 15:45:00 Test Item Value Reference Range Interpretation Comments GIO-NICK VCA IGM (BEAKER) (test Negative code = 984) TOXOPLASMA GONDII ANTIBODY, [id number] 15:45:00 Test Item Value Reference Range Interpretation Comments TOXOPLASMA GONDII IGG (BEAKER) (test Negative code = 419) POCT-GLUCOSE [id number] 14:27:00 Test Item Value Reference Range Interpretation Comments POC-GLUCOSE METER 108 mg/dL 70-110 TESTED AT [facility] 6720 (BEAKER) (test code = T[place]IS[place] 1538) [address] IMMUNOFIXATION ELECTROPHORESIS (YOANNA)2017-01-11 13:52:00 Test Item Value [...] to presence of fibrinogen in the sample. [id number] Pat Pinzon, ([facility] (test code = (electronic 2133) signature) Do not collect, specimen already in lab.BASIC METABOLIC [id number] 09:44:00 Test Item Value Reference Range Interpretation [...] S NOT APPLICABLE FOR DIALYSIS PATIEN TS. [id number] 09:20:00 Test Item Value Reference Range Interpretation Comments MAGNESIUM (BEAKER) (test code = 1.8 mg/dL 1.6-2.6 627) POCT-GLUCOSE [id number] 09:18:00 Test Item Value Reference Range Interpretation Comments POC-GLUCOSE METER 100 mg/dL 70-110 TESTED AT [place] [address] ([facility]) (test code = TANISHA Hutson [facility] 1538) [address] PROTHROMBIN [id number] 08:51:00 Test Item Value Reference Range Interpretation Comments PROTIME ([facility]) (test code = 15.1 seconds 11.7-14.7 H 759) INR ([facility]) (test code = 370) 1.2 <=5.9 RECOMMENDED COUMADIN/WARFARIN INR THERAPY RANGESSTANDARD DOSE: 2.0 - 3.0 Includes: PROPHYLAXIS for venous thrombosis, systemic embolization; TREATMENT for venous thrombosis and/or pulmonary embolus.HIGH RISK: Target INR is 2.5-3.5 for patients with mechanical heart valves.While on warfarin.HGB/HCT (H&H) - STAT [id number] 08:44:00 Test Item Value Reference Range Interpretation Comments HEMOGLOBIN ([facility]) (test code = 8.0 g/dL 12.0-15.0 L 410) HEMATOCRIT ([facility]) (test code = 24.0 % 36.0-45.0 L 411) POCT-GLUCOSE [id number] 23:05:00 Test Item Value Reference Range Interpretation Comments POC-GLUCOSE METER 108 mg/dL 70-110 TESTED AT [place] [address] ([facility]) (test code = TANISHA Hutson [facility] 1538) [address] POCT-GLUCOSE [id number] 17:36:00 Test Item Value Reference Range Interpretation Comments POC-GLUCOSE METER 133 mg/dL 70-110 H TESTED AT [place] [address] ([facility]) (test code = TANISHA Hutson [facility] 1538) [address] POCT-GLUCOSE [id number] 12:31:00 Test Item Value Reference Range Interpretation Comments POC-GLUCOSE METER 115 mg/dL 70-110 H TESTED AT [place] [address] ([facility]) (test code = TANISHA Hutson [facility] 1538) [address] FUNGUS CULTURE + [id number] 12:30:00 Test Item Value Reference Range Interpretation Comments CULTURE ([facility]) (test No fungus isolated in code = 1095) 28 days FUNGUS SMEAR ([facility]) No fungi seen (test code = 1406) POCT-GLUCOSE [id number] 08:30:00 Test Item Value Reference Range Interpretation Comments POC-GLUCOSE METER 99 mg/dL 70-110 TESTED AT [place] [address] ([facility]) (test code = [facility] [address] 1538) POCT-GLUCOSE [id number] 00:16:00 Test Item Value Reference Range Interpretation Comments POC-GLUCOSE METER 106 mg/dL 70-110 TESTED AT [place] [address] ([facility]) (test code = [facility] 1538) [address] POCT-GLUCOSE [id number] 22:21:00 Test Item Value Reference Range Interpretation Comments POC-GLUCOSE METER 88 mg/dL 70-110 TESTED AT [place] [address] ([facility]) (test code = [facility] [address] 1538) POCT-GLUCOSE [id number] 14:36:00 Test Item Value Reference Range Interpretation Comments POC-GLUCOSE METER 119 mg/dL 70-110 H TESTED AT [place] [address] ([facility]) (test code = [facility] 1538) [address] PROTEIN ELECTROPHORESIS, [id number] 13:56:00 Test Item Value Reference Range Interpretation Comments ALBUMIN FRACTION 2.0 g/dL 3.5-5.5 L (AKER) (test code = 405) ALPHA 1 FRACTION 0.3 g/dL 0.2-0.4 (BEAKER) (test code = 389) ALPHA 2 FRACTION 0.6 g/dL 0.5-0.9 (BEAKER) (test code = 390) BETA FRACTION 0.9 g/dL 0.6-1.1 (AKER) (test code = 392) GAMMA GLOBULIN 1.9 g/dL 0.7-1.7 H FRACTION (BEAKER) (test code = 391) INTERPRETATION-119 There is a peak in the (AKER) (test code gamma region that may = 2615) indicate a monoclonal gammopathy. Refer to serum immunofixation electrophoresis. [id number] Anne Yen MD ([facility]) (test code (electronic signature) = 8255) PROTEIN TOTAL SERUM, 5.7 gm/dL 6.0-8.3 L SPEP (AKER) (test code = 3190) Do not collect, specimen already in lab.POTASSIUM-STAT [id number] 10:33:00 Test Item Value Reference Range Interpretation Comments POTASSIUM (BEAKER) (test code = 4.9 meq/L 3.6-5.5 379) GLUCOSE-STAT [id number] 10:33:00 Test Item Value Reference Range Interpretation Comments GLUCOSE RANDOM (BEAKER) (test code 129 mg/dL 70-110 H = 652) HGB/HCT (H&H) - STAT [id number] 10:33:00 Test Item Value Reference Range Interpretation Comments HEMOGLOBIN (BEAKER) (test code = 12.3 g/dL 12.0-15.0 410) HEMATOCRIT (BEAKER) (test code = 36.0 % 36.0-45.0 411) HGB/HCT (H&H) - STAT [id number] 07:59:00 Test Item Value Reference Range Interpretation Comments HEMOGLOBIN (BEAKER) (test code = 8.5 g/dL 12.0-15.0 L 410) HEMATOCRIT (BEAKER) (test code = 25.0 % 36.0-45.0 L 411) BASIC METABOLIC [id number] 07:16:00 Test Item Value Reference Range Interpretation [...] S NOT APPLICABLE FOR DIALYSIS PATIEN TS. [id number] 07:10:00 Test Item Value Reference Range Interpretation Comments MAGNESIUM (BEAKER) (test code = 2.0 mg/dL 1.6-2.6 627) POCT-GLUCOSE [id number] 06:47:00 Test Item Value Reference Range Interpretation Comments POC-GLUCOSE METER 113 mg/dL 70-110 H TESTED AT [place] [address] ([facility]) (test code = T[place] 1538) [address] [id number] 02:25:00 Test Item Value Reference Range Interpretation Comments PARTIAL THROMBOPLASTIN TIME 67.7 seconds 22.5-36.0 H ([facility]) (test code = 760) POCT-GLUCOSE [id number] 18:18:00 Test Item Value Reference Range Interpretation Comments POC-GLUCOSE METER 138 mg/dL 70-110 H TESTED AT [place] [address] ([facility]) (test code = TANISHA Hutson [place] 1538) [address] [id number] 17:24:00 Test Item Value Reference Range Interpretation Comments PROTIME ([facility]) (test code = 15.2 seconds 11.7-14.7 H 759) INR ([facility]) (test code = 370) 1.2 <=5.9 PARTIAL THROMBOPLASTIN TIME 37.0 seconds 22.5-36.0 H ([facility]) (test code = 760) RECOMMENDED COUMADIN/WARFARIN INR THERAPY RANGESSTANDARD DOSE: 2.0 - 3.0 Includes: PROPHYLAXIS for venous thrombosis, systemic embolization; TREATMENT for venous thrombosis and/or pulmonary embolus.HIGH RISK: Target INR is 2.5-3.5 for patients with mechanical heart valves.ANAEROBIC [id number] 14:23:00 Test Item Value Reference Range Interpretation Comments CULTURE ([facility]) (test No anaerobes isolated code = 1095) ANAEROBIC [id number] 14:23:00 Test Item Value Reference Range Interpretation Comments CULTURE ([facility]) (test No anaerobes isolated code = 1095) POCT-GLUCOSE [id number] 12:45:00 Test Item Value Reference Range Interpretation Comments POC-GLUCOSE METER 126 mg/dL 70-110 H TESTED AT [place] [address] ([facility]) (test code = TANISHA Hutson [place] 1538) [address] SURGICALLY OBTAINED CULTURE + GRAM [id number] 11:41:00 Test Item Value Reference Range Interpretation Comments CULTURE A From Broth Only Same (BEAKER) (test organism has been code = 1095) isolated from cultures(s) of the same body site and collection date . Repeat identifi cation and susceptibil ity testing perform ed only after consultat ion with the [facility] microbiology laboratory.Refe r to previous cultur e ofCoagulase neg ative Staphylococcus GRAM STAIN <1+ WBCs RESULT (BEAKER) (test code = 1123) GRAM STAIN No organisms seen RESULT (BEAKER) (test code = 415033) SURGICALLY OBTAINED CULTURE + GRAM [id number] 11:38:00 Test Item Value Reference Interpretation Comments [...] No organisms (BEAKER) (test code = seen 832386) [id number] 10:08:00 Test Item Value Reference Range Interpretation Comments PROTIME (BEAKER) (test code = 14.7 seconds 11.7-14.7 759) INR (BEAKER) (test code = 370) 1.2 <=5.9 PARTIAL THROMBOPLASTIN TIME 40.2 seconds 22.5-36.0 H (BEAKER) (test code = 760) RECOMMENDED COUMADIN/WARFARIN INR THERAPY RANGESSTANDARD DOSE: 2.0 - 3.0 Includes: PROPHYLAXIS for venous thrombosis, systemic embolization; TREATMENT for venous thrombosis and/or pulmonary embolus.HIGH RISK: Target INR is 2.5-3.5 for patients with mechanical heart valves.POCT-GLUCOSE [id number] 08:24:00 Test Item Value Reference Range Interpretation Comments POC-GLUCOSE METER 97 mg/dL 70-110 TESTED AT [facility] 6720 (BEAKER) (test code = TANISHA Hutson [facility] [address] 1538) [id number] 07:39:00 Test Item Value Reference Range Interpretation Comments PARTIAL THROMBOPLASTIN TIME 192.0 seconds 22.5-36.0 HH (BEAKER) (test code = 760) [id number] 07:37:00 Test Item Value Reference Range Interpretation Comments MAGNESIUM (BEAKER) (test code = 1.7 mg/dL 1.6-2.6 627) BASIC METABOLIC [id number] 07:37:00 Test Item Value Reference Range Interpretation [...] 697) EGFR (BEAKER) (test 10 mL/min/1.73 ESTIMA MARSHA GFR IS code = 1092) sq m NOT ACCURATE CREATININE CLEARANCE IN PREDICTING GLOMERULAR FILTRATION RATE . ESTIMATED GFR I S NOT APPLICABLE FOR DIALYSIS PATIEN TS. [id number] 23:25:00 Test Item Value Reference Range Interpretation Comments PARTIAL THROMBOPLASTIN TIME 97.8 seconds 22.5-36.0 H (BEAKER) (test code = 760) POCT-GLUCOSE [id number] 22:52:00 Test Item Value Reference Range Interpretation Comments POC-GLUCOSE METER 98 mg/dL 70-110 TESTED AT [facility] 6720 (BEAKER) (test code = TANISHA Hutson [facility] [address] 1538) POCT-GLUCOSE [id number] 17:43:00 Test Item Value Reference Range Interpretation Comments POC-GLUCOSE METER 86 mg/dL 70-110 TESTED AT [place] [address] ([facility]) (test code = TANISHA Hutson [facility] [address] 1538) [id number] 15:59:00 Test Item Value Reference Range Interpretation Comments PARTIAL THROMBOPLASTIN TIME 62.8 seconds 22.5-36.0 H ([facility]) (test code = 760) POCT-GLUCOSE [id number] 14:50:00 Test Item Value Reference Range Interpretation Comments POC-GLUCOSE METER 115 mg/dL 70-110 H TESTED AT [place] [address] ([facility]) (test code = [place] Caryl [facility] 1538) [address] [id number] 14:00:00 Test Item Value Reference Range Interpretation Comments PARTIAL THROMBOPLASTIN TIME 113.6 seconds 22.5-36.0 H ([facility]) (test code = 760) VANCOMYCIN LEVEL, [id number] 13:10:00 Test Item Value Reference Range Interpretation Comments VANCOMYCIN RANDOM ([facility]) (test 33.9 ug/mL code = 523) Reference Range: No NormalsTROPONIN [id number] 12:52:00 Test Item Value Reference Range Interpretation Comments TROPONIN I ([facility]) (test code = 0.09 ng/mL 0.00-0.03 [...] acidosis, acute neurological disease, and persistent tachyarrhythmia.POCT-GLUCOSE [id number] 12:19:00 Test Item Value Reference Range Interpretation Comments POC-GLUCOSE METER 87 mg/dL 70-110 TESTED AT [place] [address] ([facility]) (test code = [facility] Caryl [facility] [address] 1538) POCT-GLUCOSE [id number] 08:36:00 Test Item Value Reference Range Interpretation Comments POC-GLUCOSE METER 62 mg/dL 70-110 L Notified R Gio IGLESIAS/TESTED AT ([facility]) (test code = [place] [address] RAJINDER 1538) [facility] [address] ANTI-NUCLEAR ANTIBODY ([facility])2017-01-07 06:33:00 Test Item Value Reference Range Interpretation Comments ANTI-NUCLEAR ANTIBODY ([facility]) (BEAKER) Positive Negative A (test code = 418) [facility] TITER AND [id number] 06:33:00 Test Item Value Reference Range Interpretation Comments [place] TITER (BEAKER) (test code = 1541) :640 [place] PATTERN (BEAKER) (test code = SSA/RO 1781) TROPONIN [id number] 03:35:00 Test Item Value Reference Range Interpretation [...] acute neurological disease, and persistent tachyarrhythmia.BASIC METABOLIC [id number] 03:28:00 Test Item Value Reference Range Interpretation [...] S NOT APPLICABLE FOR DIALYSIS PATIEN TS. [id number] 03:27:00 Test Item Value Reference Range Interpretation Comments MAGNESIUM (BEAKER) (test code = 1.9 mg/dL 1.6-2.6 627) [id number] 03:24:00 Test Item Value Reference Range Interpretation Comments PARTIAL THROMBOPLASTIN TIME 111.9 seconds 22.5-36.0 H ([facility]) (test code = 760) [id number] 00:18:00 Test Item Value Reference Range Interpretation Comments RPR SCREEN (BEAKER) (test code = Nonreactive Nonreactive 420) BLOOD [id number] 00:00:00 Test Item Value Reference Range Interpretation Comments CULTURE ([facility]) (test No growth in 5 days code = 1095) BLOOD [id number] 00:00:00 Test Item Value Reference Range Interpretation Comments CULTURE (BEAKER) (test No growth in 5 days code = 1095) CT, BRAIN, WITHOUT [id number] 23:31:00PT started dialysis 07/12/2015 FINAL REPORT Clinical history : Heart transplant evaluationComparison study: CTscan of the brain 06/06/2016 Technique: Contiguous axial [...] calvarium. Impression: No acute abnormalities. Signed: Erlin Arshadeport Verified Date/Time: 01/06/2017 23:31:20 Reading Location: [address] Consult Reading Room POCT-GLUCOSE [id number] 22:02:00 Test Item Value Reference Range Interpretation Comments POC-GLUCOSE METER 99 mg/dL 70-110 TESTED AT [facility] 6720 ([facility]) (test code = TANISHA Hutson [facility] [address] 1538) [id number] 18:44:00 Test Item Value Reference Range Interpretation Comments PARTIAL THROMBOPLASTIN TIME 94.9 seconds 22.5-36.0 H ([facility]) (test code = 760) HEPATITIS A ANTIBODY, [id number] 18:03:00 Test Item Value Reference Range Interpretation Comments HEPATITIS A IGG ANTIBODY ([facility]) Reactive Nonreactive A (test code = 2797) HIV-1 ANTIGEN WITH HIV-1/2 [id number] 17:58:00 Test Item Value Reference Range Interpretation Comments HIV-1 ANTIGEN WITH HIV 1\\T\\2 Nonreactive Nonreactive ANTIBODY (2) ([facility]) (test code = 2586) POCT-GLUCOSE [id number] 17:55:00 Test Item Value Reference Range Interpretation Comments POC-GLUCOSE METER 89 mg/dL 70-110 TESTED AT [facility] 6720 ([facility]) (test code = TANISHA Hutson [facility] [address] 1538) ANG, TUNNELED DIALYSIS CATH [id number] 17:45:00PT started dialysis 07/12/2015Reason for exam:->needs detention HD access, please d/c bradley after PC in placeIs the patient ?->NoWhen was patient's last menstrual cycle?->01/03/17FINAL REPORT Tunneled dialysis catheter insertion, 01/05/2017. History: Renal failure. Modality: Sonography and fluoroscopy. Sedation: Versed 1.0 mg and fentanyl 50 mcg was given i ntravenously for conscious sedation. Vital signs were monitored throughout the procedure by a nurse,and remained stable. Physician intra-service time was 20 minutes. Auto Technician Mechanic: Richard. Php Wordpress Developer: Rolf. Approach: Right internal jugular vein Estimated [...] a micropuncture needle. An ultrasound image was savedto PACS. A 0.018 inch wire was placed through the needle into the right atrium. A 4 Luxembourgish micropuncture sheath was placed. A subcutaneous tunnel was created in the right anterior chest wall by blunt dissection. A 19 cm 15.5 Luxembourgish Duraflow 2 catheter was brought through the tunnel. The vessel tract was serially dilated over a J-wire. A peel-away sheath was placed in the right IJ vein and the catheter was advanced through the sheath, with its distal tip terminating in the right atrium. The peel-awaysheath was removed. The ports were flushed and [...] fluoroscopic guidance and conscious sedation. Signed: Jerrod Ramos MDReport Verified Date/Time: 01/06/2017 17:45:51 Reading Location: [address] Ultrasound Reading Room [id number] 17:37:00 Test Item Value Reference Range Interpretation Comments PARTIAL THROMBOPLASTIN TIME > seconds 22.5-36.0 HH ([facility]) (test code = 760) U/S, RENAL, [id number] 17:29:00PT started dialysis 07/12/2015Reason for exam:->heart transplant [...] echogenicity. No mass. No shadowing calculus. No hydronephro sis. Limited Doppler evaluation demonstrates normal color Doppler flow within bilateral renal han. Fluid: No perinephric fluid. Bladder: Unremarkable. IMPRESSION:Increased echogenicity of the bilateral kidneys which can be seen in medical renal disease. Signed: Jerrod Ramos MDReport Verified Date/Time: 01/06/2017 17:29:12 Reading Location: [address] Ultrasound Reading Room TROPONIN I 2017-01-06 17:04:00 Test Item Value Reference Range Interpretation [...] failure, acidosis, acute neurological disease, and persistent tachyarrhythmia.[id number] 16:54:00 Test Item Value Reference Range Interpretation Comments FERRITIN (BEAKER) (test code = 361) 216 ng/mL 5-275 VITAMIN D, [id number]-[id number] 16:48:00 Test Item Value Reference Range Interpretation Comments VITAMIN D 25-OH (BEAKER) (test code 6.4 ng/mL 6.6-49.9 L = 2764) Effective 12/21/2016: Reference Range ChangeNew: 6.6-49.9 ng/mL Previous: 13.0- 47.8 ng/mLRecommendedVitamin D Target Range: 30.0-40.0 ng/mLT4, [id number] 16:43:00 Test Item Value Reference Range Interpretation Comments FREE T4 (BEAKER) (test code = 655) 1.56 ng/dL 0.70-1.48 H [id number] 16:43:00 Test Item Value Reference Range Interpretation Comments THYROID STIMULATING HORMONE 0.98 uIU/mL 0.35-4.94 (BEAKER) (test code = 772) [id number] 16:22:00 Test Item Value Reference Range Interpretation Comments TRANSFERRIN (BEAKER) (test code = 122 mg/dL 174-382 L 541) [id number] 16:13:00 Test Item Value Reference Range Interpretation Comments PREALBUMIN (BEAKER) (test code = 14 mg/dL 14-45 586) IRON, [id number] 16:13:00 Test Item Value Reference Range Interpretation Comments IRON (BEAKER) (test code = 547) 23 ug/dL 40-160 L TROPONIN [id number] 15:31:00 Test Item Value Reference Range Interpretation [...] failure, acidosis, acute neurological disease, and persistent tachyarrhythmia.[id number] 15:30:00 Test Item Value Reference Range Interpretation Comments CREATININE (BEAKER) 6.49 mg/dL 0.57-1.25 H (test code = 358) EGFR (BEAKER) (test 8 mL/min/1.73 ESTIMAT ED GFR IS code = 1092) sq m NOT ACCURATE CREATININE CLEARANCE IN PREDICTING GLOMERULAR FILTRATION RATE . ESTIMATED GFR I S NOT APPLICABLE FOR DIALYSIS PATIEN TS. URIC [id number] 15:25:00 Test Item Value Reference Range Interpretation Comments URIC ACID (BEAKER) (test code = 3.3 mg/dL 2.6-7.2 773) LIPID [id number] 15:25:00 Test Item Value Reference Range Interpretation Comments TRIGLYCERIDES (BEAKER) (test code = 57 mg/dL 540) CHOLESTEROL (BEAKER) (test code = 131 mg/dL 631) HDL CHOLESTEROL (BEAKER) (test code 51 mg/dL = 976) LDL CHOLESTEROL CALCULATED ([facility]) 69 mg/dL (test code = 633) Triglyceride Reference Range: Low Risk <150 Borderline 150-199 High Risk 200- 499 Very High Risk >=500Cholesterol Reference Range: Low Risk <200 Borderline 200-239 High Risk >240HDL Cholesterol Reference Range: Low Risk >=60 High Risk <40LDL Cholesterol Reference Range: Optimal <100 Near Optimal 100-129 Borderline 130-159 High 160-189 Very High >=190AMYLASE 2017-01-06 15:25:00 Test Item Value Reference Range Interpretation Comments AMYLASE (BEAKER) (test code = 349) 60 U/L 25-125 GAMMA GLUTAMYL TRANSFERASE (GGT)2017-01-06 15:25:00 Test Item Value Reference Range Interpretation Comments GAMMA GLUTAMYL TRANSFERASE (BEAKER) 15 U/L 9-64 (test code = 364) [id number] 15:25:00 Test Item Value Reference Range Interpretation Comments LIPASE (BEAKER) (test code = 749) 46 U/L 8-78 RETICULOCYTE [id number] 15:07:00 Test Item Value Reference Range Interpretation Comments RETICULOCYTE COUNT PCT (AKER) (test 1.2 % 0.5-1.7 code = 575) POCT-GLUCOSE [id number] 09:33:00 Test Item Value Reference Range Interpretation Comments POC-GLUCOSE METER 103 mg/dL 70-110 TESTED AT [place] [address] ([facility]) (test code = [facility] 1538) [address] POCT-GLUCOSE [id number] 06:37:00 Test Item Value Reference Range Interpretation Comments POC-GLUCOSE METER 108 mg/dL 70-110 TESTED AT [place] [address] ([facility]) (test code = [facility] 1538) [address] VANCOMYCIN LEVEL, [id number] 04:30:00 Test Item Value Reference Range Interpretation Comments [facility]IN [facility]ANDOM [facility] (test 37.6 ug/mL code = 523) Reference Range: No NormalsTROPONIN [id number] 04:19:00 Test Item Value Reference Range Interpretation [...] acute neurological disease, and persistent tachyarrhythmia.BASIC METABOLIC [id number] 04:12:00 Test Item Value Reference Range Interpretation [...] 697) EGFR (BEAKER) (test 10 mL/min/1.73 ESTIMA MARSHA GFR IS code = 1092) sq m NOT ACCURATE CREATININE CLEARANCE IN PREDICTING GLOMERULAR FILTRATION RATE . ESTIMATED GFR I S NOT APPLICABLE FOR DIALYSIS PATIEN TS. [id number] 04:11:00 Test Item Value Reference Range Interpretation Comments MAGNESIUM (BEAKER) (test code = 1.7 mg/dL 1.6-2.6 627) [id number] 03:57:00 Test Item Value Reference Range Interpretation [...] 0-0 (BEAKER) (test code = 413) TROPONIN [id number] 00:42:00 Test Item Value Reference Range Interpretation Comments TROPONIN I ([facility]) (test code = 0.11 ng/mL 0.00-0.03 H [...] acidosis, acute neurological disease, and persistent tachyarrhythmia.POCT-GLUCOSE [id number] 00:27:00 Test Item Value Reference Range Interpretation Comments POC-GLUCOSE METER 97 mg/dL 70-110 TESTED AT [facility] ([facility]) (test code = [place] [address] 1538) [id number] 00:23:00 Test Item Value Reference Range Interpretation Comments PARTIAL THROMBOPLASTIN TIME 34.2 seconds 22.5-36.0 ([facility]) (test code = 760) [id number] 17:16:00 Test Item Value Reference Range Interpretation Comments PARTIAL THROMBOPLASTIN TIME 58.7 seconds 22.5-36.0 H ([facility]) (test code = 760) TISSUE [id number] 16:16:00Surgical Pathology Report Case: [id number] Authorizing Provider: Fabi Parekh MD Collected: 01/04/2017 1055 Ordering Location: [facility] Received: 01/04/2017 1314 PERIOPERATIVE SERVICESPathologist: Judit Medel MD Specimen: Hernia, Hernia Sac HERNIA SAC, ABDOMINAL, INCISIONAL HERNIA, REPAIR: - FIBROADIPOSE TISSUE AND REACTIVE CHANGS WITH FOREIGN BODY GIANT CELLS, CONSISTENT WITH INCISIONAL HERNIA SAC Signing Pathologist Direct Phone Line: [phone] signed by Judit Medel MD on 01/05/2017 at 4:16 [id number] renal disease, incisional hernia sacHernia sacReceived fresh labeled "hernia", description "hernia sac" is an 8.3 x 7.3 x 1.0 cm, dark-redto cash-white, irregular, rubbery, wrinkled portion of fibromembranous soft tissue. Sectioning reveals no discrete masses. [facility] sections are submitted in cassette A1. DB/ew Performed.[id number] 14:43:00 Test Item Value Reference Range Interpretation Comments PARTIAL THROMBOPLASTIN TIME 162.1 seconds 22.5-36.0 HH ([facility]) (test code = 760) POCT-GLUCOSE [id number] 13:01:00 Test Item Value Reference Range Interpretation Comments POC-GLUCOSE METER 88 mg/dL 70-110 TESTED AT [facility] ([facility]) (test code = [facility] [address] 1538) TROPONIN [id number] 12:59:00 Test Item Value Reference Range Interpretation Comments TROPONIN I ([facility]) (test code = 0.13 ng/mL 0.00-0.03 [...] acidosis, acute neurological disease, and persistent tachyarrhythmia.SPIN/CONCENTRATION [id number] 12:45:00 Test Item Value Reference Range Interpretation Comments CONCENTRATION CHARGED (BEAKER) (test Done code = 2657) POCT-GLUCOSE [id number] 09:10:00 Test Item Value Reference Range Interpretation Comments POC-GLUCOSE METER 102 mg/dL 70-110 TESTED AT [facility] (BEAKER) (test code = TANISHA Hutson [facility] 1538) [address] CBC W/PLT COUNT & AUTO [id number] 08:49:00 Test Item Value Reference Range Interpretation [...] PERCENT (BEAKER) (test code = 2801) POCT-GLUCOSE [id number] 07:57:00 Test Item Value Reference Range Interpretation Comments POC-GLUCOSE METER 133 mg/dL 70-110 H TEST[facility] AT [facility] (test code = [facility] 1538) [address] BODY FLUID CULTURE + GRAM [id number] 07:44:00 Test Item Value Reference Range Interpretation Comments CULTURE (BEAKER) (test code No growth = 1095) GRAM STAIN RESULT (BEAKER) <1+ WBCs (test code = 1123) GRAM STAIN RESULT (BEAKER) No organisms seen (test code = 25641) POCT-GLUCOSE [id number] 06:05:00 Test Item Value Reference Range Interpretation Comments POC-GLUCOSE METER 63 mg/dL 70-110 L TESTED AT [place] [address] [facility] (test code = [facility] [address] 1538) VANCOMYCIN LEVEL, [id number] 05:32:00 Test Item Value Reference Range Interpretation Comments VANCOMYCIN RANDOM (BEAKER) (test 31.0 ug/mL code = 523) Reference Range: No NormalsBASIC METABOLIC [id number] 05:24:00 Test Item Value Reference Range Interpretation [...] NOT APPLICABLE FOR DIALYSIS PATIEN TS. TROPONIN [id number] 05:23:00 Test Item Value Reference Range Interpretation [...] failure, acidosis, acute neurological disease, and persistent tachyarrhythmia.[id number] 05:21:00 Test Item Value Reference Range Interpretation Comments MAGNESIUM (BEAKER) (test code = 1.7 mg/dL 1.6-2.6 627) [id number] 05:06:00 Test Item Value Reference Range Interpretation Comments PARTIAL THROMBOPLASTIN TIME 89.4 seconds 22.5-36.0 H (BEAKER) (test code = 760) PROTHROMBIN [id number] 05:04:00 Test Item Value Reference Range Interpretation Comments PROTIME (BEAKER) (test code = 14.6 seconds 11.7-14.7 759) INR (BEAKER) (test code = 370) 1.2 <=5.9 RECOMMENDED COUMADIN/WARFARIN INR THERAPY RANGESSTANDARD DOSE: 2.0 - 3.0 Includes: PROPHYLAXIS for venous thrombosis, systemic embolization; TREATMENT for venous thrombosis and/or pulmonary embolus.HIGH RISK: Target INR is 2.5-3.5 for patients with mechanical heart valves.TROPONIN [id number] 17:14:00 Test Item Value Reference Range Interpretation [...] failure, acidosis, acute neurological disease, and persistent tachyarrhythmia.[id number] 16:55:00 Test Item Value Reference Range Interpretation Comments GLUCOSE RANDOM (BEAKER) (test code 140 mg/dL 70-105 H = 652) GLUCOSE-STAT [id number] 13:33:00 Test Item Value Reference Range Interpretation Comments GLUCOSE RANDOM (BEAKER) (test code 101 mg/dL 70-110 = 652) POTASSIUM-STAT [id number] 13:33:00 Test Item Value Reference Range Interpretation Comments POTASSIUM (BEAKER) (test code = 4.6 meq/L 3.6-5.5 379) HGB/HCT (H&H) - STAT [id number] 13:33:00 Test Item Value Reference Range Interpretation Comments HEMOGLOBIN (BEAKER) (test code = 13.0 g/dL 12.0-15.0 410) HEMATOCRIT (BEAKER) (test code = 38.0 % 36.0-45.0 411) BODY FLUID CULTURE + GRAM [id number] 09:05:00 Test Item Value Reference Range Interpretation Comments CULTURE (BEAKER) (test code No growth = 1095) GRAM STAIN RESULT (BEAKER) <1+ WBCs (test code = 1123) GRAM STAIN RESULT (BEAKER) No organisms seen (test code = 78761) POCT-GLUCOSE [id number] 07:58:00 Test Item Value Reference Range Interpretation Comments POC-GLUCOSE METER 81 mg/dL 70-110 TESTED AT [facility] (BEAKER) (test code = [place] [address] 1538) HCG, QUANTITATIVE, [id number] 07:23:00 Test Item Value Reference Range Interpretation Comments GONADOTROPIN, CHORIONIC (HCG) QUANT < mIU/mL 0-10 (BEAKER) (test code = 649) Non- Females: <10 mIU/mL Females: Gestation Age Reference Range(mIU/mL) 0.2-1 Week 5-50 1-2 Weeks 50-500 2-3 Weeks 100-5,000 3-4 Weeks 500-10,000 4-5 Weeks 1,000-50,000 5-6 Weeks 10,000-100,000 6-8 Weeks 15,000- 200,000 2-3 Months 10,000-100,000TROPONIN [id number] 07:19:00 Test Item Value Reference Range Interpretation [...] acute neurological disease, and persistent tachyarrhythmia.BASIC METABOLIC [id number] 07:19:00 Test Item Value Reference Range Interpretation [...] S NOT APPLICABLE FOR DIALYSIS PATIEN TS. [id number] 07:18:00 Test Item Value Reference Range Interpretation Comments MAGNESIUM (BEAKER) (test code = 1.7 mg/dL 1.6-2.6 627) [id number] 06:48:00 Test Item Value Reference Range Interpretation Comments PROTIME (BEAKER) (test code = 15.0 seconds 11.7-14.7 H 759) INR (BEAKER) (test code = 370) 1.2 <=5.9 PARTIAL THROMBOPLASTIN TIME 103.5 seconds 22.5-36.0 H (BEAKER) (test code = 760) RECOMMENDED COUMADIN/WARFARIN INR THERAPY RANGESSTANDARD DOSE: 2.0 - 3.0 Includes: PROPHYLAXIS for venous thrombosis, systemic embolization; TREATMENT for venous thrombosis and/or pulmonary embolus.HIGH RISK: Target INR is 2.5-3.5 for patients with mechanical heart valves.CBC W/PLT COUNT & AUTO [id number] 06:44:00 Test Item Value Reference Range Interpretation [...] PERCENT (BEAKER) (test code = 2801) POCT-GLUCOSE [id number] 01:01:00 Test Item Value Reference Range Interpretation Comments POC-GLUCOSE METER 96 mg/dL 70-110 TESTED AT [facility] ([facility]) (test code = [place] [address] 1538) TROPONIN [id number] 00:46:00 Test Item Value Reference Range Interpretation [...] failure, acidosis, acute neurological disease, and persistent tachyarrhythmia.[id number] 00:21:00 Test Item Value Reference Range Interpretation Comments PROTIME (BEAKER) (test code = 15.8 seconds 11.7-14.7 H 759) INR ([facility]) (test code = 370) 1.3 <=5.9 PARTIAL THROMBOPLASTIN TIME 78.1 seconds 22.5-36.0 H ([facility]) (test code = 760) RECOMMENDED COUMADIN/WARFARIN INR THERAPY RANGESSTANDARD DOSE: 2.0 - 3.0 Includes: PROPHYLAXIS for venous thrombosis, systemic embolization; TREATMENT for venous thrombosis and/or pulmonary embolus.HIGH RISK: Target INR is 2.5-3.5 for patients with mechanical heart valves.POCT-GLUCOSE [id number] 21:58:00 Test Item Value Reference Range Interpretation Comments POC-GLUCOSE METER 142 mg/dL 70-110 H TESTED AT [facility] ([facility]) (test code = TANISHA Hutson [facility] 1538) [address] VANCOMYCIN LEVEL, [id number] 20:19:00 Test Item Value Reference Range Interpretation Comments VANCOMYCIN RANDOM ([facility]) (test 18.4 ug/mL code = 523) Reference Range: No NormalsTROPONIN [id number] 18:36:00 Test Item Value Reference Range Interpretation Comments TROPONIN I ([facility]) (test code = 0.18 ng/mL 0.00-0.03 [...] acidosis, acute neurological disease, and persistent tachyarrhythmia.POCT-GLUCOSE [id number] 18:30:00 Test Item Value Reference Range Interpretation Comments POC-GLUCOSE METER 119 mg/dL 70-110 H TESTED AT [facility] ([facility]) (test code = TANISHA Hutson [facility] 1538) [address] HEMOGLOBIN [id number] 18:21:00 Test Item Value Reference Range Interpretation Comments HEMOGLOBIN A1C ([facility]) (test code = 6.3 % 4.3-6.1 H 368) POCT-GLUCOSE [id number] 18:00:00 Test Item Value Reference Range Interpretation Comments POC-GLUCOSE METER 57 mg/dL 70-110 L TESTED AT [place] [address] ([facility]) (test code = TANISHA Hutson [facility] [address] 1538) [id number] 16:34:00 Test Item Value Reference Range Interpretation Comments PARTIAL THROMBOPLASTIN TIME 99.2 seconds 22.5-36.0 H ([facility]) (test code = 760) [id number] 15:36:00 Test Item Value Reference Range Interpretation Comments PARTIAL THROMBOPLASTIN TIME 123.9 seconds 22.5-36.0 H ([facility]) (test code = 760) [id number] 13:38:00 Test Item Value Reference Range Interpretation Comments PARTIAL THROMBOPLASTIN TIME > seconds 22.5-36.0 HH ([facility]) (test code = 760) TROPONIN [id number] 13:27:00 Test Item Value Reference Range Interpretation Comments TROPONIN I ([facility]) (test code = 0.19 ng/mL 0.00-0.03 [...] acidosis, acute neurological disease, and persistent tachyarrhythmia.POCT-GLUCOSE [id number] 13:25:00 Test Item Value Reference Range Interpretation Comments POC-GLUCOSE METER 120 mg/dL 70-110 H TESTED AT [place] [address] ([facility]) (test code = TANISHA Hutson [facility] 1538) [address] POCT-GLUCOSE [id number] 09:50:00 Test Item Value Reference Range Interpretation Comments POC-GLUCOSE METER 85 mg/dL 70-110 TESTED AT [place] [address] ([facility]) (test code = [facility] Caryl [facility] [address] 1538) TROPONIN [id number] 08:31:00 Test Item Value Reference Range Interpretation Comments TROPONIN I ([facility]) (test code = 0.20 ng/mL 0.00-0.03 HH [...] failure, acidosis, acute neurological disease, and persistent tachyarrhythmia.[id number] 03:35:00 Test Item Value Reference Range Interpretation Comments PARTIAL THROMBOPLASTIN TIME 39.1 seconds 22.5-36.0 H (BEAKER) (test code = 760) BASIC METABOLIC [id number] 03:34:00 Test Item Value Reference Range Interpretation [...] S NOT APPLICABLE FOR DIALYSIS PATIEN TS. [id number] 03:32:00 Test Item Value Reference Range Interpretation Comments MAGNESIUM (BEAKER) (test code = 1.5 mg/dL 1.6-2.6 L 627) CBC W/PLT COUNT & AUTO [id number] 03:17:00 Test Item Value Reference Range Interpretation [...] PERCENT (BEAKER) (test code = 2801) TROPONIN [id number] 01:22:00 Test Item Value Reference Range Interpretation [...] acidosis, acute neurological disease, and persistent tachyarrhythmia.POCT-GLUCOSE [id number] 00:49:00 Test Item Value Reference Range Interpretation Comments POC-GLUCOSE METER 74 mg/dL 70-110 TESTED AT [facility] (BEAKER) (test code = TANISHA Hutson [facility] [address] 1538) TROPONIN [id number] 18:57:00 Test Item Value Reference Range Interpretation [...] acute neurological disease, and persistent tachyarrhythmia.VANCOMYCIN LEVEL, [id number] 18:52:00 Test Item Value Reference Range Interpretation Comments VANCOMYCIN RANDOM (BEAKER) (test 29.2 ug/mL code = 523) Reference Range: No NormalsLACTATE DEHYDROGENASE (LDH)2017-01-02 18:46:00 Test Item Value Reference Range Interpretation Comments LACTATE DEHYDROGENASE (BEAKER) (test 300 U/L 125-220 H code = 635) BODY FLUID CELL COUNT WITH [id number] 18:36:00 Test Item Value Reference Range Interpretation [...] FLUID (BEAKER) 2 % (test code = 3446) LYMPHS FLUID (BEAKER) (test 9 % code = 488) MONO/MACROPHAGE FLUID (BEAKER) 89 % (test code = 489) EOSINOPHILS FLUID (BEAKER) 0 % (test code = 491) BASO FLUID (BEAKER) (test code 0 % = 492) CONTAINER BODY FLUID (BEAKER) EDTA Tube (test code = 2873) RAD, CHEST, 1 VIEW, NON [id number] 18:36:00PT started dialysis 07/12/2015 Reason for exam:->s/p thoraFINAL REPORT Comparison: 01/01/2017 TECHNIQUE: Single view of the chest FINDINGS: Right pleural effusion has decreased. No pneumothorax bilaterally. No other significant change. Signed: Turner Grier Verified Date/Time: 01/02/2017 18:36:30 Reading Location: [address] Consult Reading Room PH, BODY [id number] 18:22:00 Test Item Value Reference Range Interpretation Comments PH, BODY FLUID (BEAKER) (test code = 7.80 1530) POCT-GLUCOSE [id number] 18:19:00 Test Item Value Reference Range Interpretation Comments POC-GLUCOSE METER 91 mg/dL 70-110 TESTED AT [facility] (BEAKER) (test code = [place] [address] 1538) LACTATE DEHYDROGENASE (LDH), BODY [id number] 18:04:00 Test Item Value Reference Range Interpretation [...] HEPATITIS B CORE TOTAL ANTIBODY Nonreactive Nonreactive ([facility]) (test code = 497) HEPATITIS B SURFACE ANTIBODY 29.1 mIU/mL <8.0 H ([facility]) (test code = 647) HEPATITIS B SURFACE ANTIGEN (2) Nonreactive Nonreactive ([facility]) (test code = 2585) CREATINE KINASE (CK), TOTAL AND [id number] 13:09:00 Test Item Value Reference Range Interpretation Comments CREATINE KINASE TOTAL (AKER) 285 U/L 29-200 H (test code = 380) CREATINE KINASE-MB ([facility]) (test 15.2 ng/mL 0.0-6.6 H code = 750) CREATINE KINASE-MB INDEX ([facility]) 5.3 % (test code = 395) CK-MB Reference Range:<6.7 Normal6.7-10.0 Borderline>10.0 AbnormalTROPONIN [id number] 13:09:00 Test Item Value Reference Range Interpretation Comments TROPONIN I ([facility]) (test code = 0.18 ng/mL 0.00-0.03 [...] acidosis, acute neurological disease, and persistent tachyarrhythmia.POCT-GLUCOSE [id number] 12:25:00 Test Item Value Reference Range Interpretation Comments POC-GLUCOSE METER 95 mg/dL 70-110 TESTED AT [place] [id number] ([facility]) (test code = [place] [address] 1538) POCT-GLUCOSE [id number] 11:56:00 Test Item Value Reference Range Interpretation Comments POC-GLUCOSE METER 65 mg/dL 70-110 L Notified Caryl Huerta MD/TESTED AT ([facility]) (test code = [facility] [address] RAJINDER 1538) [facility] 7[address] 0 BASIC METABOLIC [id number] 06:05:00 Test Item Value Reference Range Interpretation Comments SODIUM ([facility]) 133 meq/L 136-145 L (test code = [...] NOT APPLICABLE FOR DIALYSIS PATIEN TS. TROPONIN [id number] 06:04:00 Test Item Value Reference Range Interpretation [...] failure, acidosis, acute neurological disease, and persistent tachyarrhythmia.[id number] 06:03:00 Test Item Value Reference Range Interpretation Comments MAGNESIUM (BEAKER) (test code = 1.9 mg/dL 1.6-2.6 627) CBC W/PLT COUNT & AUTO [id number] 05:59:00 Test Item Value Reference Range Interpretation [...] PERCENT (BEAKER) (test code = 2801) TROPONIN [id number] 01:42:00 Test Item Value Reference Range Interpretation [...] acute neurological disease, and persistent tachyarrhythmia.BASIC METABOLIC [id number] 01:37:00 Test Item Value Reference Range Interpretation [...] S NOT APPLICABLE FOR DIALYSIS PATIEN TS. [id number] 01:30:00 Test Item Value Reference Range Interpretation Comments MAGNESIUM (BEAKER) (test code = 1.5 mg/dL 1.6-2.6 L 627) POCT-GLUCOSE [id number] 00:03:00 Test Item Value Reference Range Interpretation Comments POC-GLUCOSE METER 76 mg/dL 70-110 TESTED AT [facility] (BEAKER) (test code = [facility] [place] [address] 1538) POCT-GLUCOSE [id number] 22:26:00 Test Item Value Reference Range Interpretation Comments POC-GLUCOSE METER 60 mg/dL 70-110 L TESTED AT [facility] (BEAKER) (test code = [place] [address] 1538) TROPONIN [id number] 21:46:00 Test Item Value Reference Range Interpretation [...] acute neurological disease, and persistent tachyarrhythmia.BASIC METABOLIC [id number] 21:38:00 Test Item Value Reference Range Interpretation [...] S NOT APPLICABLE FOR DIALYSIS PATIEN TS. [id number] 21:35:00 Test Item Value Reference Range Interpretation Comments MAGNESIUM (BEAKER) (test code = 1.6 mg/dL 1.6-2.6 627) [id number] 21:34:00 Test Item Value Reference Range Interpretation Comments PHOSPHORUS (BEAKER) (test code = 7.7 mg/dL 2.3-4.7 H 604) RAD, CHEST, 1 VIEW, NON [id number] 21:30:00PT started dialysis 07/12/2015Reason for exam:->Line placementShould this be performed at the bedside?->YesFINAL REPORT RAD, CHEST, 1 VIEW, NON DEPT INDICATION: Line placement COMPARISON: Two hours prior FINDINGS: Portable frontal view of the chest. IMPRESSION: Support Lines: Multilumenright IJ central venous catheter appears slightly advanced, projecting over the superior vena cava near the level of the kelly.. No additional central line is identified. Lungs and pleura: Unchanged airspace and pleural opacities. No pneumothorax.Heart and mediastinum: Stable contours. Additional findings: None. Signed: JR Astorga Robert MDReport Verified Date/Time: 01/01/2017 21:30:48 Reading Location: [place] [id number] CT Body Reading Room BODY FLUID CELL COUNT WITH [id number] 20:13:00 Test Item Value Reference Range Interpretation [...] Tube (test code = 2873) COMPREHENSIVE METABOLIC [id number] 19:19:00 Test Item Value Reference Range Interpretation [...] PATIEN TS. RAD, CHEST, 1 VIEW, NON [id number] 18:48:00PT started dialysis 07/12/2015 Reason for exam:->s/p left thoracentesis Should this be performed at the bedside?->YesFINAL REPORT Comparison: 01/01/2017 TECHNIQUE: Single view of the chest FINDINGS: Left pleural effusion has decreased. No pneumothorax bilaterally. Interval placement of a right internal jugular catheter. Tip projects in the mid SVC. No other gross change. Signed: Turner Grier MDReport Verified Date/Time: 01/01/2017 18:48:26 Reading Location: [address] Transitional Reading Room POCT-GLUCOSE [id number] 18:23:00 Test Item Value Reference Range Interpretation Comments POC-GLUCOSE METER 79 mg/dL 70-110 TESTED AT [place] [address] ([facility]) (test code = TANISHA Hutson [facility] [address] 1538) [id number] 18:09:00 Test Item Value Reference Range Interpretation Comments AMMONIA (BEAKER) (test 9 mol/L 18-72 L Speci men markedly code = 348) hemolyzed [id number] 18:08:00 Test Item Value Reference Range Interpretation Comments MAGNESIUM (BEAKER) 2.8 mg/dL 1.6-2.6 H Specimen markedly (test code = 627) hemolyzed [id number] 18:08:00 Test Item Value Reference Range Interpretation Comments PHOSPHORUS (BEAKER) 8.1 mg/dL 2.3-4.7 H Specimen markedly (test code = 604) hemolyzed POCT-GLUCOSE [id number] 18:07:00 Test Item Value Reference Range Interpretation Comments POC-GLUCOSE METER 81 mg/dL 70-110 TESTED AT [place] [address] ([facility]) (test code = TANISHA Hutson [facility] [address] 1538) LACTIC ACID, ARTERIAL, WHOLE [id number] 17:14:00 Test Item Value Reference Range Interpretation Comments LACTATE BLOOD 0.9 mmol/L 0.5-2.2 Specimen sligh tly ARTERIAL (2) ([facility]) hemoly zed (test code = 2874) Effective 07/15/2015: Units/Reference Range ChangeNew: 0.5-2.2 mmol/L Previous: 5- 20 mg/[id number] 17:12:00 Test Item Value Reference Range Interpretation Comments PROCALCITONIN (BEAKER) (test code 0.72 ng/mL <0.05 H = 3036) SEPSIS RISK (ng/mL)Low: 0.05-0.50Intermediate: 0.51-2.00High: >=2.01TROPONIN [id number] 16:56:00 Test Item Value Reference Range Interpretation Comments [facility] I [facility] (test code = 0.25 ng/mL [...] (BEAKER) (test code = 700) BLOOD GAS, [id number] 16:50:00 Test Item Value Reference Range Interpretation [...] (BEAKER) (test code = 1819) 21.0 % [id number] 16:46:00 Test Item Value Reference Range Interpretation Comments PHOSPHORUS (BEAKER) 7.9 mg/dL 2.3-4.7 H Specimen markedly (test code = 604) hemolyzed [id number] 16:46:00 Test Item Value Reference Range Interpretation Comments LIPASE (BEAKER) (test code = 749) 38 U/L 8-78 CALCIUM, [id number] 16:46:00 Test Item Value Reference Range Interpretation Comments CALCIUM IONIZED (BEAKER) (test 1.00 mmol/L 1.12-1.27 L code = 698) PH, BLOOD (BEAKER) (test code = 7.36 1810) PROTHROMBIN [id number] 16:43:00 Test Item Value Reference Range Interpretation Comments PROTIME (BEAKER) (test code = 16.2 seconds 11.7-14.7 H 759) INR (BEAKER) (test code = 370) 1.3 <=5.9 RECOMMENDED COUMADIN/WARFARIN INR THERAPY RANGESSTANDARD DOSE: 2.0 - 3.0 Includes: PROPHYLAXIS for venous thrombosis, systemic embolization; TREATMENT for venous thrombosis and/or pulmonary embolus.HIGH RISK: Target INR is 2.5-3.5 for patients with mechanical heart valves.CBC W/PLT COUNT & AUTO [id number] 16:30:00 Test Item Value Reference Range Interpretation [...] = 2801) RAD, CHEST, 1 VIEW, NON [id number] 15:22:00PT started dialysis 07/12/2015Post-intubationReason for exam:->sobShould this be performed at the bedside?->YesFINAL REPORT Comparison: 06/07/2016 TECHNIQUE: Single view of the chest FINDINGS: There is a moderate to large left pleural effusion and moderate right pleural effusion with nonspecific adjacent airspace disease. Cardiac silhouette is obscured. No gross pneumothorax. No acute skeletal abnormality. Signed: Turner Grier MDReport Verified Date/Time: 01/01/2017 15:22:20 Reading Location: [address] Transitional Reading Room BODY FLUID CULTURE + GRAM [id number] 11:17:00 Test Item Value Reference Range Interpretation Comments CULTURE (BEAKER) (test code No growth = 1095) GRAM STAIN RESULT (BEAKER) <1+ WBCs (test code = 1123) GRAM STAIN RESULT (BEAKER) No organisms seen (test code = 74038) [id number] 15:47:00Medical Cytology Report Case: [id number] Authorizing Provider: Verena Carrero MD Collected: 12/12/20161540 Ordering Location: [facility] Laboratory Received: 12/13/2016 1002 Pathologist: Heber Hood MD Specimen: Pleural, Right RIGHT PLEURAL FLUID (CYTOSPINS): - NEGATIVE FOR MALIGNANT CELLS Signing Pathologist Direct Phone Line: [phone] signed by Heber Hood MDon 12/13/2016 at 3:47 PMReactive mesothelial cells are noted.71521Jjrho pleural effusion; CHFRIGHT PLEURAL FLUID4 cytospins prepared from 200 ml yellow fluidCollected: [id number]: [id number] [facility], Department of Pathology, [address] [place] [address], [facility], [address] [place] [address], KAJFKIGM GRAVITY, BODY [id number] 15:33:00 Test Item Value Reference Range Interpretation Comments SP GRAVITY MISCELLANEOUS (BEAKER) (test 1.019 code = 557) Reference Range: No NormalsBODY FLUID [id number] 11:49:00 Test Item Value Reference Range Interpretation Comments CRYSTALS, BODY FLUID No crystals seen. (BEAKER) (test code = 2165) [id number] Anne Yen MD (BEAKER) (test code = (electronic signature) 2607) PH, BODY [id number] 00:24:00 Test Item Value Reference Range Interpretation Comments PH, BODY FLUID (BEAKER) (test code = 7.90 1530) BODY FLUID CELL COUNT WITH [id number] 19:53:00 Test Item Value Reference Range Interpretation [...] Tube (test code = 2873) ALBUMIN, BODY [id number] 19:31:00 Test Item Value Reference Range Interpretation Comments ALBUMIN FLUID (BEAKER) (test code = 0.9 gm/dL 501) Reference Range: No Normals Assay performance has not been validated for this type of specimen.RIGHTTHORACENTESIS, PLEURAL FLUIDRIGHT THORACENTESIS, PLEURAL FLUIDRIGHT THORACENTESIS, PLEURAL FLUIDRIGHT THORACENTESIS, PLEURAL FLUIDRIGHT THORACENTESIS, PLEURAL FLUIDRIGHT THORACENTESIS, PLEURAL FLUIDCREATININE, BODY [id number] 19:31:00 Test Item Value Reference Range Interpretation Comments CREATININE FLUID (BEAKER) (test 15.62 mg/dL code = 677) Reference Range: No Normals Assay performance has not been validated for this type of specimen.RIGHTTHORACENTESIS, PLEURAL FLUIDRIGHT THORACENTESIS, PLEURAL FLUIDRIGHT THORACENTESIS, PLEURAL FLUIDRIGHT THORACENTESIS, PLEURAL FLUIDRIGHT THORACENTESIS, PLEURAL FLUIDRIGHT THORACENTESIS, PLEURAL FLUIDAMYLASE, BODY [id number] 19:27:00 Test Item Value Reference Range Interpretation Comments AMYLASE FLUID (BEAKER) (test code = 39 U/L 350) Absence of reference range indicates that normals have not been defined.Assay performance has not been validated for this type of specimen.RIGHT THORACENTESIS, PLEURAL FLUIDRIGHT THORACENTESIS, PLEURALFLUIDRIGHT THORACENTESIS, PLEURAL FLUIDRIGHT THORACENTESIS, PLEURAL FLUIDRIGHT THORACENTESIS, PLEURAL FLUIDRIGHT THORACENTESIS, PLEURAL FLUIDLACTATE DEHYDROGENASE (LDH), BODY [id number] 19:27:00 Test Item Value Reference Range Interpretation Comments LACTATE DEHYDROGENASE FLUID (BEAKER) 113 U/L (test code = 634) Absence of reference range indicates that normals have not been defined.Assay performance has not been validated for this type of specimen.RIGHT THORACENTESIS, PLEURAL FLUIDRIGHT THORACENTESIS, PLEURALFLUIDRIGHT THORACENTESIS, PLEURAL FLUIDRIGHT THORACENTESIS, PLEURAL FLUIDRIGHT THORACENTESIS, PLEURAL FLUIDRIGHT THORACENTESIS, PLEURAL FLUIDPROTEIN, BODY [id number] 19:27:00 Test Item Value Reference Range Interpretation Comments PROTEIN FLUID (BEAKER) (test code = 2.1 g/dL 579) Absence of reference range indicates that normals have not been defined.Assay performance has not been validated for this type of specimen.RIGHT THORACENTESIS, PLEURAL FLUIDRIGHT THORACENTESIS, PLEURALFLUIDRIGHT THORACENTESIS, PLEURAL FLUIDRIGHT THORACENTESIS, PLEURAL FLUIDRIGHT THORACENTESIS, PLEURAL FLUIDRIGHT THORACENTESIS, PLEURAL FLUIDGLUCOSE, BODY [id number] 19:27:00 Test Item Value Reference Range Interpretation Comments GLUCOSE, BODY FLUID (BEAKER) (test 172 mg/dL code = 1528) Absence of reference range indicates that normals have not been defined.Assay performance has not been validated for this type of specimen.RIGHT THORACENTESIS, PLEURAL FLUIDRIGHT THORACENTESIS, PLEURALFLUIDRIGHT THORACENTESIS, PLEURAL FLUIDRIGHT THORACENTESIS, PLEURAL FLUIDRIGHT THORACENTESIS, PLEURAL FLUIDRIGHT THORACENTESIS, PLEURAL FLUIDAFB CULTURE + [id number] 18:17:00 Test Item Value Reference Range Interpretation Comments CULTURE (BEAKER) (test No acid-fast bacilli code = 1095) isolated in 42 days AFB SMEAR (BEAKER) No acid fast bacilli (test code = 994) seen FUNGUS CULTURE + [id number] 19:24:00 Test Item Value Reference Range Interpretation Comments CULTURE (BEAKER) (test No fungus isolated in code = 1095) 28 days FUNGUS SMEAR (BEAKER) No fungi seen (test code = 1406) BLOOD [id number] 08:20:00 Test Item Value Reference Range Interpretation Comments CULTURE (BEAKER) (test No growth in 5 days code = 1095) BLOOD [id number] 08:13:00 Test Item Value Reference Range Interpretation Comments CULTURE (BEAKER) (test No growth in 5 days code = 1095) POCT-GLUCOSE [id number] 08:25:00 Test Item Value Reference Range Interpretation Comments POC-GLUCOSE METER 244 mg/dL 70-110 H TESTED AT [facility] 6720 (BEAKER) (test code = TANISHA [place] 153) [address] BASIC METABOLIC [id number] 05:31:00 Test Item Value Reference Range Interpretation [...] S NOT APPLICABLE FOR DIALYSIS PATIEN TS. [id number] 05:27:00 Test Item Value Reference Range Interpretation [...] MEAN CORPUSCULAR HEMOGLOBIN CONC 32.4 GM/DL 32.0-36.0 (AKER) (test code = 752) RED CELL DISTRIBUTION WIDTH 18.2 % 10.3-14.2 H (AKER) (test code = 412) PLATELET COUNT ([facility]) (test 214 K/CU MM 150-430 code = 756) MEAN PLATELET VOLUME (AKER) 10.0 fL 6.5-10.5 (test code = 754) NUCLEATED RED BLOOD CELLS 0 /100 WBC 0-0 (AKER) (test code = 413) 0.00POCT-GLUCOSE [id number] 00:54:00 Test Item Value Reference Range Interpretation Comments POC-GLUCOSE METER 124 mg/dL 70-110 H TESTED AT [place] [address] ([facility]) (test code = [facility] 1538) [address] POCT-GLUCOSE [id number] 17:10:00 Test Item Value Reference Range Interpretation Comments POC-GLUCOSE METER 146 mg/dL 70-110 H TESTED AT [place] [address] ([facility]) (test code = [facility] 1538) [address] BODY FLUID CULTURE + GRAM [id number] 15:37:00 Test Item Value Reference Range Interpretation Comments CULTURE ([facility]) (test code No growth = 1095) GRAM STAIN RESULT ([facility]) No WBCs (test code = 1123) GRAM STAIN RESULT ([facility]) No organisms seen (test code = 16495) PERITONEAL DIALYSIS EFFLUENT [id number] 15:25:00 Test Item Value Reference Range Interpretation Comments CULTURE (AKER) (test code = 1095) No growth POCT-GLUCOSE [id number] 12:03:00 Test Item Value Reference Range Interpretation Comments POC-GLUCOSE METER 170 mg/dL 70-110 H TESTED AT [place] [address] ([facility]) (test code = [facility] 1538) [address] HEPATITIS C PCR, [id number] 09:44:00 Test Item Value Reference Range Interpretation Comments HCV NUMERIC RESULT ([facility]) 986060 IU/mL <15 H (test code = 2700) This test uses a Real-Time Polymerase Chain Reaction (RT-PCR) methodology and was performed using SHELLY Ampliprep/SHELLY TaqMan HCV test kit version 2.0 ([employer]).Reportable range for this assay is 15 - 100,000,000 IU per mL (1.18 - 8.00 Log IU/mL).POCT-GLUCOSE [id number] 08:07:00 Test Item Value Reference Range Interpretation Comments POC-GLUCOSE METER 183 mg/dL 70-110 H TESTED AT [facility] 6720 (BEAKER) (test code = TANISHA [place] 1538) [address] CBC (HEMOGRAM ONLY)2016-06-08 06:53:00 Test Item Value [...] (BEAKER) (test code = 413) 0.00BASIC METABOLIC [id number] 05:44:00 Test Item Value Reference Range Interpretation [...] 358) GLUCOSE RANDOM 229 mg/dL 70-105 H ([facility]) (test code = 652) CALCIUM (BEAKER) 8.4 mg/dL 8.4-10.2 (test code = 697) EGFR (BEAKER) (test 3 mL/min/1.73 ESTIMAT ED GFR IS code = 1092) sq m NOT ACCURATE CREATININE CLEARANCE IN PREDICTING GLOMERULAR FILTRATION RATE . ESTIMATED GFR I S NOT APPLICABLE FOR DIALYSIS PATIMIGEL TS. [id number] 05:41:00 Test Item Value Reference Range Interpretation Comments MAGNESIUM ([facility] (test code = 2.3 mg/dL 1.6-2.6 627) POCT-GLUCOSE [id number] 20:59:00 Test Item Value Reference Range Interpretation Comments POC-GLUCOSE METER 105 mg/dL 70-110 TESTED AT [place] [address] ([facility]) (test code = [facility] 1538) [address] POCT-GLUCOSE [id number] 17:58:00 Test Item Value Reference Range Interpretation Comments POC-GLUCOSE METER 129 mg/dL 70-110 H TESTED AT [place] [address] ([facility]) (test code = [facility] 1538) [address] POCT-GLUCOSE [id number] 17:58:00 Test Item Value Reference Range Interpretation Comments POC-GLUCOSE METER 138 mg/dL 70-110 H TESTED AT [place] [address] ([facility]) (test code = [facility] 1538) [address] ANTI-NUCLEAR ANTIBODY ([facility])2016-06-07 14:51:00 Test Item Value Reference Range Interpretation Comments ANTI-NUCLEAR ANTIBODY ([place]) ([facility]) Negative Negative (test code = 418) [id number] 09:26:00 Test Item Value Reference Range Interpretation Comments PHOSPHORUS ([facility] (test code = 7.8 mg/dL 2.3-4.7 H 604) POCT-GLUCOSE [id number] 08:18:00 Test Item Value Reference Range Interpretation Comments POC-GLUCOSE METER 140 mg/dL 70-110 H TESTED AT [facility] 6720 (BEAKER) (test code = TANISHA [place] [address]) [address] CBC (HEMOGRAM ONLY)2016-06-07 07:53:00 Test Item Value [...] WBC 0-0 (BEAKER) (test code = 413) 0.00BASI METABOLIC [id number] 07:30:00 Test Item Value Reference Range Interpretation [...] S NOT APPLICABLE FOR DIALYSIS PATIEN TS. [id number] 07:29:00 Test Item Value Reference Range Interpretation Comments MAGNESIUM (BEAKER) (test code = 1.7 mg/dL 1.6-2.6 627) VANCOMYCIN LEVEL, [id number] 07:28:00 Test Item Value Reference Range Interpretation Comments VANCOMYCIN RANDOM (BEAKER) (test 18.5 ug/mL code = 523) Reference Range: No NormalsPOCT-GLUCOSE [id number] 21:54:00 Test Item Value Reference Range Interpretation Comments POC-GLUCOSE METER 112 mg/dL 70-110 H TESTED AT [place] [address] ([facility]) (test code = TANIHSA Hutson [facility] 1538) [address] [id number] 19:10:00 Test Item Value Reference Range Interpretation Comments ACTIVATED CLOTTING TIME 337 sec TEST ED AT [place] [address] ([facility]) (test code = [facility] 441) [address] [id number] 16:26:00 Test Item Value Reference Range Interpretation Comments PARTIAL THROMBOPLASTIN TIME 83.0 seconds 22.5-36.0 H ([facility]) (test code = 760) HEPATIC FUNCTION [id number] 14:54:00 Test Item Value Reference Range Interpretation [...] (test code = 18 U/L 6-55 347) [id number] 13:30:00 Test Item Value Reference Range Interpretation Comments FERRITIN (BEAKER) (test code = 361) 343 ng/mL 5-275 H Effective 01/28/2014: Reference Range ChangeNew: Male 5-275 Previous: Male 22- 322 Female 5-275 Female 42-062JGJX-[id number] [id number] 13:01:00 Test Item Value Reference Range Interpretation Comments POC-GLUCOSE METER 121 mg/dL 70-110 H TESTED AT [facility] 6720 (BEAKER) (test code = TANISHA Hutson [facility] 1538) [address] HEPATITIS C [id number] 11:01:00 Test Item Value Reference Range Interpretation Comments HEPATITIS C ANTIBODY (BEAKER) (test Reactive Nonreactive A code = 367) HEPATITIS B SURFACE [id number] 10:32:00 Test Item Value Reference Range Interpretation Comments HEPATITIS B SURFACE ANTIGEN (2) Nonreactive Nonreactive (BEAKER) (test code = 2585) HEPATITIS B SURFACE [id number] 10:32:00 Test Item Value Reference Range Interpretation Comments HEPATITIS B SURFACE ANTIBODY 71.3 mIU/mL <8.0 H (BEAKER) (test code = 647) HEPATITIS A ANTIBODY, [id number] 10:32:00 Test Item Value Reference Range Interpretation Comments HEPATITIS A IGM ANTIBODY (BEAKER) Nonreactive Nonreactive (test code = 498) HEPATITIS B CORE ANTIBODY, [id number] 10:32:00 Test Item Value Reference Range Interpretation Comments HEPATITIS B CORE TOTAL ANTIBODY Nonreactive Nonreactive (BEAKER) (test code = 497) LACTATE DEHYDROGENASE (LDH), BODY [id number] 10:24:00 Test Item Value Reference Range Interpretation [...] % 20-55 (test code = 2590) PROTEIN, [id number] 09:36:00 Test Item Value Reference Range Interpretation Comments TOTAL PROTEIN (BEAKER) (test code = 6.5 gm/dL 6.0-8.3 770) LACTATE DEHYDROGENASE (LDH)2016-06-06 09:36:00 Test Item Value Reference Range Interpretation Comments LACTATE DEHYDROGENASE (BEAKER) (test 248 U/L 125-220 H code = 635) [id number] 09:32:00 Test Item Value Reference Range Interpretation Comments PARTIAL THROMBOPLASTIN TIME 72.0 seconds 22.5-36.0 H (BEAKER) (test code = 760) Prior to initiating heparinPROTHROMBIN [id number] 09:30:00 Test Item Value Reference Range Interpretation Comments PROTIME (BEAKER) (test code = 15.2 seconds 11.7-14.7 H 759) INR (BEAKER) (test code = 370) 1.2 <=5.9 RECOMMENDED COUMADIN/WARFARIN INR THERAPY RANGESSTANDARD DOSE: 2.0 - 3.0 Includes: PROPHYLAXIS for [...] 0-0 (BEAKER) (test code = 413) PLATELET [id number] 09:15:00 Test Item Value Reference Range Interpretation Comments PLATELET COUNT (BEAKER) (test 185 K/CU MM 150-430 code = 756) POCT-GLUCOSE [id number] 08:01:00 Test Item Value Reference Range Interpretation Comments POC-GLUCOSE METER 119 mg/dL 70-110 H TESTED AT [facility] 6720 (BEAKER) (test code = T[place]IS[place] 1538) [address] [id number] 04:10:00 Test Item Value Reference Range Interpretation Comments MAGNESIUM (BEAKER) (test code = 1.8 mg/dL 1.6-2.6 627) BASIC METABOLIC [id number] 04:10:00 Test Item Value Reference Range Interpretation [...] I S NOT APPLICABLE FOR DIALYSIS PATIEN [id number] 04:09:00 Test Item Value Reference Range Interpretation [...] 0-0 (BEAKER) (test code = 413) 0.00POCT-GLUCOSE [id number] 00:10:00 Test Item Value Reference Range Interpretation Comments POC-GLUCOSE METER 235 mg/dL 70-110 H TESTED AT [facility] 6720 (BEAKER) (test code = TANISHA Hutson [facility] 1538) [address] GRAM [id number] 23:45:00 Test Item Value Reference Range Interpretation Comments GRAM STAIN RESULT (BEAKER) <1+ WBCs (test code = 1123) GRAM STAIN RESULT (BEAKER) No organisms seen (test code = 10123) BODY FLUID CELL COUNT WITH [id number] 20:12:00 Test Item Value Reference Range Interpretation [...] = 2873) BODY FLUID CELL COUNT WITH [id number] 19:33:00 Test Item Value Reference Range Interpretation [...] Tube (test code = 2873) PROTEIN, BODY [id number] 19:01:00 Test Item Value Reference Range Interpretation [...] FLUID (BEAKER) (test code = 7.73 1530) [id number] 18:22:00 Test Item Value Reference Range Interpretation Comments PARTIAL THROMBOPLASTIN TIME 36.7 seconds 22.5-36.0 H (BEAKER) (test code = 760) PROTHROMBIN [id number] 18:20:00 Test Item Value Reference Range Interpretation Comments PROTIME (BEAKER) (test code = 15.3 seconds 11.7-14.7 H 759) INR ([facility]) (test code = 370) 1.2 <=5.9 RECOMMENDED COUMADIN/WARFARIN INR THERAPY RANGESSTANDARD DOSE: 2.0 - 3.0 Includes: PROPHYLAXIS for venous thrombosis, systemic embolization; TREATMENT for venous thrombosis and/or pulmonary embolus.HIGH RISK: Target INR is 2.5-3.5 for patients with mechanical heart valves.POCT-GLUCOSE [id number] 18:04:00 Test Item Value Reference Range Interpretation Comments POC-GLUCOSE METER 182 mg/dL 70-110 H TESTED AT [facility] 6720 ([facility]) (test code = HONEYDARRYL Hutson [facility] 1538) [address] CREATINE KINASE (CK), TOTAL AND [id number] 16:32:00 Test Item Value Reference Range Interpretation Comments CREATINE KINASE TOTAL (AKER) 247 U/L 29-200 H (test code = 380) CREATINE KINASE-MB (BEAKER) (test 8.4 ng/mL 0.0-6.6 H code = 750) CREATINE KINASE-MB INDEX ([facility]) 3.4 % (test code = 395) Effective 01/28/2014: CK-MB Reference Range ChangeNew: 0.0-6.6 Previous: 0.0-4.9CK-MB Reference Range:<6.7 Normal6.7-10.0 Borderline>10.0 Abnormal TROPONIN [id number] 16:32:00 Test Item Value Reference Range Interpretation Comments TROPONIN I (BEAKER) (test code = 0.06 ng/mL 0.00-0.03 H 397) Effective 01/28/2014: Reference Range ChangeNew: 0.00-0.03 Previous 0.00- 0.15Troponin I (TnI) levelsmust be interpreted in the context of the [...] acute neurological disease, and persistent tachyarrhythmia.BASIC METABOLIC [id number] 16:31:00 Test Item Value Reference Range Interpretation [...] S NOT APPLICABLE FOR DIALYSIS PATIEN TS. [id number] 16:26:00 Test Item Value Reference Range Interpretation Comments PHOSPHORUS (BEAKER) (test code = 8.1 mg/dL 2.3-4.7 H 604) [id number] 16:26:00 Test Item Value Reference Range Interpretation Comments MAGNESIUM (BEAKER) (test code = 1.9 mg/dL 1.6-2.6 627) HEPATIC FUNCTION [id number] 16:26:00 Test Item Value Reference Range Interpretation [...] 6-55 347) CBC W/PLT COUNT & AUTO [id number] 16:07:00 Test Item Value Reference Range Interpretation [...] code = 417) 0.00LACTIC ACID, VENOUS, WHOLE [id number] 16:06:00 Test Item Value Reference Range Interpretation Comments LACTATE BLOOD VENOUS (2) (BEAKER) 1.5 mmol/L 0.5-2.2 (test code = 2872) Effective 07/15/2015: Units/Reference Range ChangeNew: 0.5-2.2 mmol/L Previous: 5- 20 mg/dLBLOOD GAS, [id number] 15:57:00 Test Item Value Reference Range Interpretation [...] (test code = 1819) 21.0 % POCT-GLUCOSE [id number] 12:45:00 Test Item Value Reference Range Interpretation Comments POC-GLUCOSE METER 201 mg/dL 70-110 H TESTED AT [facility] 6720 (BEAKER) (test code = [facility] 1538) [address] POCT-GLUCOSE [id number] 08:26:00 Test Item Value Reference Range Interpretation Comments POC-GLUCOSE METER 181 mg/dL 70-110 H TESTED AT [facility] 6720 (BEAKER) (test code = [facility] 1538) [address] [id number] 07:00:00 Test Item Value Reference Range Interpretation Comments FERRITIN (BEAKER) (test code = 361) 337 ng/mL 5-275 H Effective 01/28/2014: Reference Range ChangeNew: Male 5-275 Previous: Male 22- 322 Female 5-275 Female [id number] 06:20:00 Test Item Value Reference Range Interpretation Comments MAGNESIUM (BEAKER) (test code = 1.8 mg/dL 1.6-2.6 627) BASIC METABOLIC [id number] 06:20:00 Test Item Value Reference Range Interpretation [...] = 2590) CBC W/PLT COUNT & AUTO [id number] 06:00:00 Test Item Value Reference Range Interpretation [...] L 0.00-0.20 (test code = 417) 0.00POCT-GLUCOSE [id number] 17:21:00 Test Item Value Reference Range Interpretation Comments POC-GLUCOSE METER 196 mg/dL 70-110 H TESTED AT [place] [address] (BEAKER) (test code = [facility] 1538) [address] POCT-GLUCOSE [id number] 12:54:00 Test Item Value Reference Range Interpretation Comments POC-GLUCOSE METER 190 mg/dL 70-110 H TESTED AT [place] [address] [facility] CENTER) (test code = [facility] 1538) [address] HEMOGLOBIN AND [id number] 11:25:00 Test Item Value Reference Range Interpretation Comments HEMOGLOBIN (BEAKER) (test code = 9.1 GM/DL 12.0-15.0 L 410) HEMATOCRIT (BEAKER) (test code = 27.2 % 36.0-45.0 L 411) POCT-GLUCOSE [id number] 07:54:00 Test Item Value Reference Range Interpretation Comments POC-GLUCOSE METER 116 mg/dL 70-110 H TESTED AT [place] [address] (BEAKER) (test code = [facility] 1538) [address] [id number] 05:00:00 Test Item Value Reference Range Interpretation Comments PHOSPHORUS (BEAKER) (test code = 8.0 mg/dL 2.3-4.7 H 604) BASIC METABOLIC [id number] 01:32:00 Test Item Value Reference Range Interpretation [...] PATIEN TS. CBC W/PLT COUNT & AUTO [id number] 01:18:00 Test Item Value Reference Range Interpretation [...] L 0.00-0.20 (test code = 417) 0.00POCT-GLUCOSE [id number] 22:11:00 Test Item Value Reference Range Interpretation Comments POC-GLUCOSE METER 200 mg/dL 70-110 H TESTED AT [facility] (BEAKER) (test code = TANISHA Hutson [facility] 1538) [address] POCT-GLUCOSE [id number] 18:17:00 Test Item Value Reference Range Interpretation Comments POC-GLUCOSE METER 206 mg/dL 70-110 H TESTED AT [facility] (test code = TANISHA Hutson [facility] 1538) [address] [id number] 17:39:00 Test Item Value Reference Range Interpretation Comments POTASSIUM (BEAKER) (test code = 4.7 meq/L 3.5-5.1 379) BASIC METABOLIC [id number] 11:55:00 Test Item Value Reference Range Interpretation [...] S NOT APPLICABLE FOR DIALYSIS PATIEN TS. PT/[id number] 11:42:00 Test Item Value Reference Range Interpretation Comments PROTIME (BEAKER) (test code = 14.6 seconds 11.7-14.7 759) INR (BEAKER) (test code = 370) 1.2 <=5.9 PARTIAL THROMBOPLASTIN TIME 33.8 seconds 22.5-36.0 (BEAKER) (test code = 760) RECOMMENDED COUMADIN/WARFARIN INR THERAPY RANGESSTANDARD DOSE: 2.0 - 3.0 Includes: PROPHYLAXIS for venous thrombosis, systemic embolization; TREATMENT for venous thrombosis and/or pulmonary embolus.HIGH RISK: Target INR is 2.5-3.5 for patients with mechanical heart valves.CBC W/PLT COUNT & AUTO [id number] 11:39:00 Test Item Value Reference Range Interpretation [...] K/ L 0.00-0.20 (test code = 417) [id number] 11:36:00 Test Item Value Reference Range Interpretation Comments Eosinophils # (test code 0.1 See_Comment [A utomated message] The = Eosinophils #) system [facility] [employer] generated this result tra nsmitted reference range : <=0.5. The reference r nabor was not used to int erpret this result as normal/abnormal . [facility] HospitalSkisyquNVBBICMBNR6955-48-94 11:36:00 Test Item Value Reference Range Interpretation Comments Monocytes (test code = Monocytes) 8.0 2.0-12.0 [facility] HospitalEbyrtqnHEODDXUWEJ2164-95-74 11:36:00 Test Item Value Reference Range Interpretation Comments Lymphocytes (test code = Lymphocytes) 19.2 20.0-40.0 [facility] HospitalRhabpzvJIZUXZDDCN8496-14-06 11:36:00 Test Item Value Reference Range Interpretation Comments Segs (test code = Segs) 69.5 45.0-75.0 [facility] HospitalNieqvugOSJLLMQHZI4830-07-01 11:36:00 Test Item Value Reference Range Interpretation Comments Eosinophils (test code = 2.3 See_Comment [A utomated message] The Eosinophils) system which ge nerated this result tra nsmitted reference range : <=4.0. The reference r nabor was not used to int erpret this result as normal/abnormal . [facility] HospitalQnsururKDKVRFDNVQ2614-84-64 11:36:00 Test Item Value Reference Range Interpretation Comments PTT (test code = PTT) 35.1 s 22.9-35.8 [facility] HospitalEdyshdgSYFIMKHULD2942-72-62 11:36:00 Test Item Value Reference Range Interpretation Comments INR (test code = INR) 1.09 0.85-1.17 [facility] HospitalZcehmwbCIBTAMLRVZ8366-89-76 11:36:00 Test Item Value Reference Range Interpretation Comments PT (test code = PT) 14.4 s 12.0-14.7 [facility] HospitalWbpcdreVINORFIBEW7082-71-62 11:36:00 Test Item Value Reference Range Interpretation Comments Hgb (test code = Hgb) 9.3 12.0-16.0 [facility] HospitalKxcvvelPRTCFWWVHO3613-42-78 11:36:00 Test Item Value Reference Range Interpretation Comments RBC (test code = RBC) 3.21 4.20-5.40 [facility] HospitalFhnbjtoNVCDPVEZPH7851-72-32 11:36:00 Test Item Value Reference Range Interpretation Comments WBC (test code = WBC) 6.3 3.7-10.4 [facility] HospitalEfvunuwAACJWHEUQM8413-83-64 11:36:00 Test Item Value Reference Range Interpretation Comments MCV (test code = MCV) 88.4 80.0-98.0 [facility] HospitalVfwcoqiLQTUTMCGTB8525-09-75 11:36:00 Test Item Value Reference Range Interpretation Comments Hct (test code = Hct) 28.4 36.0-48.0 [facility] HospitalBvnyhkbFIQWYGOLOZ0675-07-49 11:36:00 Test Item Value Reference Range Interpretation Comments Platelet (test code = Platelet) 190 133-450 [facility] HospitalMmcqzahAOFQZYSAPJ0142-67-24 11:36:00 Test Item Value Reference Range Interpretation Comments RDW (test code = RDW) 14.9 11.5-14.5 [facility] HospitalDbjrgyoHRXAAIYKWN1351-08-99 11:36:00 Test Item Value Reference Range Interpretation Comments MCHC (test code = MCHC) 32.7 32.0-36.0 [facility] HospitalKnurxmpSTPZYCHOGH7948-83-32 11:36:00 Test Item Value Reference Range Interpretation Comments MCH (test code = MCH) 28.9 pg 27.0-31.0 [facility] HospitalVvthemmGETAALBDPE5380-17-42 11:36:00 Test Item Value Reference Range Interpretation Comments MPV (test code = MPV) 8.9 7.4-10.4 [facility] HospitalZgeyxbgHFTRFXXKMTVS4909-52-45 11:36:00 Test Item Value Reference Range Interpretation Comments Chloride Lvl (test code = Chloride Lvl) 111 95-109 [facility] HospitalPjnvevkYNVBZBCSVDSL3655-22-19 11:36:00 Test Item Value Reference Range Interpretation Comments CO2 (test code = CO2) 19 24-32 [facility] HospitalCiyfbpuWPQTZQGRQHVZ3983-31-62 11:36:00 Test Item Value Reference Range Interpretation Comments Calcium Lvl (test code = Calcium Lvl) 8.5 8.5-10.5 [facility] HospitalCiqgdszNWESXRSWFELP1224-76-08 11:36:00 Test Item Value Reference Range Interpretation Comments Glucose Lvl (test code = Glucose Lvl) 126 70-99 [facility] HospitalAbqjaslWLQUROPHITSB2034-54-66 11:36:00 Test Item Value Reference Range Interpretation Comments Sodium Lvl (test code = Sodium Lvl) 140 135-145 [facility] HospitalUfpctqvHTXXNDHEGCQU4690-73-92 11:36:00 Test Item Value Reference Range Interpretation Comments Potassium Lvl (test code = Potassium 4.6 3.5-5.1 Lvl) [facility] HospitalYvbgencYGUHTWWFCLAQ1441-62-75 11:36:00 Test Item Value Reference Range Interpretation Comments BUN (test code = BUN) 50 7-22 [facility] HospitalCyilkxeZCVSNPYBTVSF4413-96-97 11:36:00 Test Item Value Reference Range Interpretation Comments Creatinine Lvl (test code = Creatinine 8.31 0.50-1.40 Lvl) [facility] HospitalAdwawcgCWZXVKZRXYCQ2659-93-19 11:36:00 Test Item Value Reference Range Interpretation Comments eGFR (test code = eGFR) 6 [facility] HospitalJclvpzkJDTRPABBAEQA7661-58-70 11:36:00 Test Item Value Reference Range Interpretation Comments AGAP (test code = AGAP) 14.6 10.0-20.0 [facility] HospitalElqermvAEZXUZNVYL6123-28-21 11:36:00 Test Item Value Reference Range Interpretation Comments Lymphocytes # (test code = Lymphocytes 1.2 1.0-5.5 #) [facility] HospitalFxtvdmePTZNLEOPJK5317-88-17 11:36:00 Test Item Value Reference Range Interpretation Comments Basophils (test code = 1.0 See_Comment [Aut omated message] The Basophils) system which ge nerated this result tra nsmitted reference range : <=1.0. The reference r nabor was not used to int erpret this result as normal/abnormal . [facility] HospitalOngvplrKNBZPVBNYX5624-85-22 11:36:00 Test Item Value Reference Range Interpretation Comments Segs-Bands # (test code = Segs-Bands #) 4.4 1.5-8.1 [facility] HospitalQuaiosiVQVGWWFSAJ4261-69-35 11:36:00 Test Item Value Reference Range Interpretation Comments Monocytes # (test code 0.5 See_Comment [Aut omated message] The = Monocytes #) system which generated this result tra nsmitted reference range : <=0.8. The reference r nabor was not used to int erpret this result as normal/abnormal . [facility] HospitalZeegkjbZHDGFZRBDH0682-61-38 11:36:00 Test Item Value Reference Range Interpretation Comments Basophils # (test code 0.1 See_Comment [Aut omated message] The = Basophils #) system which generated this result tra nsmitted reference range : <=0.2. The reference r nabor was not used to int erpret this result as normal/abnormal . [facility] HospitalGtouamlMZAEMODDLFAZ3301-79-19 11:36:00 Test Item Value Reference Range Interpretation Comments Chloride Lvl (test code = Chloride Lvl) 111 95-109 [facility] HospitalDbadrnhTGKHAKPSATJP7048-03-23 11:36:00 Test Item Value Reference Range Interpretation Comments CO2 (test code = CO2) 19 24-32 [facility] HospitalVlxxtwtFVWKFFKYVJOE9304-73-72 11:36:00 Test Item Value Reference Range Interpretation Comments Calcium Lvl (test code = Calcium Lvl) 8.5 8.5-10.5 [facility] HospitalRpmavwaVJHMSXGFBQRP6798-57-63 11:36:00 Test Item Value Reference Range Interpretation Comments Glucose Lvl (test code = Glucose Lvl) 126 70-99 [facility] HospitalKluetseJVTTUUKVJMXS7324-82-47 11:36:00 Test Item Value Reference Range Interpretation Comments Sodium Lvl (test code = Sodium Lvl) 140 135-145 [facility] HospitalDftgdxgGXGMUTGWOLAS4597-64-24 11:36:00 Test Item Value Reference Range Interpretation Comments Potassium Lvl (test code = Potassium 4.6 3.5-5.1 Lvl) [facility] HospitalFcawvylKHOZRFMIILFH1546-47-70 11:36:00 Test Item Value Reference Range Interpretation Comments BUN (test code = BUN) 50 7-22 [facility] HospitalWlfkkmqJEYJSCEROICJ1821-25-09 11:36:00 Test Item Value Reference Range Interpretation Comments Creatinine Lvl (test code = Creatinine 8.31 0.50-1.40 Lvl) [facility] HospitalGjtdhhhGKUUXSLQGRWE7725-82-62 11:36:00 Test Item Value Reference Range Interpretation Comments eGFR (test code = eGFR) 6 [facility] HospitalJjjvvmaIDUHOAWSOZCC6792-43-02 11:36:00 Test Item Value Reference Range Interpretation Comments AGAP (test code = AGAP) 14.6 10.0-20.0 [facility] HospitalNbvvmtmKTBMYJEZXC9414-77-92 11:36:00 Test Item Value Reference Range Interpretation Comments Lymphocytes # (test code = Lymphocytes 1.2 1.0-5.5 #) [facility] HospitalOuwgtpsPOJVYJDJTP3614-96-67 11:36:00 Test Item Value Reference Range Interpretation Comments Basophils (test code = 1.0 See_Comment [Aut omated message] The Basophils) system which ge nerated this result tra nsmitted reference range : <=1.0. The reference r nabor was not used to int erpret this result as normal/abnormal . [facility] HospitalCylckabJTHCFWPVQO8089-47-54 11:36:00 Test Item Value Reference Range Interpretation Comments Segs-Bands # (test code = Segs-Bands #) 4.4 1.5-8.1 [facility] HospitalPkjtrqfQGPBTKQMEI8576-74-25 11:36:00 Test Item Value Reference Range Interpretation Comments Monocytes # (test code 0.5 See_Comment [Aut omated message] The = Monocytes #) system which generated this result tra nsmitted reference range : <=0.8. The reference r nabor was not used to int erpret this result as normal/abnormal . [facility] HospitalLovwhnkOJZAWURNRJ6048-14-72 11:36:00 Test Item Value Reference Range Interpretation Comments Basophils # (test code 0.1 See_Comment [Aut omated message] The = Basophils #) system which generated this result tra nsmitted reference range : <=0.2. The reference r nabor was not used to int erpret this result as normal/abnormal . [facility] HospitalQmtyerdWHFPNTKNYG2164-42-38 11:36:00 Test Item Value Reference Range Interpretation Comments Eosinophils # (test code 0.1 See_Comment [A utomated message] The = Eosinophils #) system whic h generated this result tra nsmitted reference range : <=0.5. The reference r nabor was not used to int erpret this result as normal/abnormal . [facility] HospitalImpjqqoWFYBWQPVYA8522-03-80 11:36:00 Test Item Value Reference Range Interpretation Comments Monocytes (test code = Monocytes) 8.0 2.0-12.0 [facility] HospitalSpikzbwALTTAAOFAW7183-69-46 11:36:00 Test Item Value Reference Range Interpretation Comments Lymphocytes (test code = Lymphocytes) 19.2 20.0-40.0 [facility] HospitalXgkdabkJNUBDZLHXI6721-16-25 11:36:00 Test Item Value Reference Range Interpretation Comments Segs (test code = Segs) 69.5 45.0-75.0 [facility] HospitalCryzlrxXWDBJDVXLV9205-61-93 11:36:00 Test Item Value Reference Range Interpretation Comments Eosinophils (test code = 2.3 See_Comment [A utomated message] The Eosinophils) system which ge nerated this result tra nsmitted reference range : <=4.0. The reference r nabor was not used to int erpret this result as normal/abnormal . [facility] HospitalAoxdwpnZVUNNNTWJI9953-96-18 11:36:00 Test Item Value Reference Range Interpretation Comments PTT (test code = PTT) 35.1 s 22.9-35.8 [facility] HospitalFmmvsdwFJQEKEAZGQ3568-01-58 11:36:00 Test Item Value Reference Range Interpretation Comments INR (test code = INR) 1.09 0.85-1.17 [facility] HospitalFmcqhuhOCXYGOHSWX6910-54-24 11:36:00 Test Item Value Reference Range Interpretation Comments PT (test code = PT) 14.4 s 12.0-14.7 [facility] HospitalXfwfjbcFLRLIGHFVC3235-57-86 11:36:00 Test Item Value Reference Range Interpretation Comments Hgb (test code = Hgb) 9.3 12.0-16.0 [facility] HospitalRavbrlqZUWUCBGBAK6297-47-33 11:36:00 Test Item Value Reference Range Interpretation Comments RBC (test code = RBC) 3.21 4.20-5.40 [facility] HospitalZghbxzjHJGJZISEXQ1268-17-98 11:36:00 Test Item Value Reference Range Interpretation Comments WBC (test code = WBC) 6.3 3.7-10.4 [facility] HospitalYqtcmvsYDZDXLDYZN2173-21-22 11:36:00 Test Item Value Reference Range Interpretation Comments MCV (test code = MCV) 88.4 80.0-98.0 [facility] HospitalPibjovqKPJTQXSHRB9057-98-64 11:36:00 Test Item Value Reference Range Interpretation Comments Hct (test code = Hct) 28.4 36.0-48.0 [facility] HospitalJtqjbibVPHRPCXTJH5012-27-52 11:36:00 Test Item Value Reference Range Interpretation Comments Platelet (test code = Platelet) 190 133-450 [facility] HospitalQmjnwuyFZZIFKOWSK4375-92-87 11:36:00 Test Item Value Reference Range Interpretation Comments RDW (test code = RDW) 14.9 11.5-14.5 [facility] HospitalLcsdmmzBPSZZXRVDY4179-56-75 11:36:00 Test Item Value Reference Range Interpretation Comments MCHC (test code = MCHC) 32.7 32.0-36.0 [facility] HospitalBvorfbrGKAYGVGQFJ1938-46-22 11:36:00 Test Item Value Reference Range Interpretation Comments MCH (test code = MCH) 28.9 pg 27.0-31.0 [facility] HospitalLbpawviCRVPDGDFOB9569-76-58 11:36:00 Test Item Value Reference Range Interpretation Comments MPV (test code = MPV) 8.9 7.4-10.4 [facility] HospitalEbcevprXXRLAEACIXOA6171-32-31 11:36:00 Test Item Value Reference Range Interpretation Comments Chloride Lvl (test code = Chloride Lvl) 111 95-109 [facility] HospitalGgkiaziBLIHGMYXVTPN9481-00-37 11:36:00 Test Item Value Reference Range Interpretation Comments CO2 (test code = CO2) 19 24-32 [facility] HospitalSkamxfjUUQMJRWSIKJS4631-70-18 11:36:00 Test Item Value Reference Range Interpretation Comments Calcium Lvl (test code = Calcium Lvl) 8.5 8.5-10.5 [facility] HospitalKpmswesGTILITQLVNMG9841-87-93 11:36:00 Test Item Value Reference Range Interpretation Comments Glucose Lvl (test code = Glucose Lvl) 126 70-99 [facility] HospitalHtrnvbbMPGNSPSVTGJL0929-56-20 11:36:00 Test Item Value Reference Range Interpretation Comments Sodium Lvl (test code = Sodium Lvl) 140 135-145 [facility] HospitalAopymgeBMPYIWGMWYUN1708-75-32 11:36:00 Test Item Value Reference Range Interpretation Comments Potassium Lvl (test code = Potassium 4.6 3.5-5.1 Lvl) [facility] HospitalTrdcpycNJRIOXQEKWNP8084-88-13 11:36:00 Test Item Value Reference Range Interpretation Comments BUN (test code = BUN) 50 7-22 [facility] HospitalPqnshwmOWMOGKMTFOVS2161-71-31 11:36:00 Test Item Value Reference Range Interpretation Comments Creatinine Lvl (test code = Creatinine 8.31 0.50-1.40 Lvl) [facility] HospitalJqmguyuVVUCJSRNXIGP6475-02-15 11:36:00 Test Item Value Reference Range Interpretation Comments eGFR (test code = eGFR) 6 [facility] HospitalWbyezrfSMISZVQBGPEV4938-86-39 11:36:00 Test Item Value Reference Range Interpretation Comments AGAP (test code = AGAP) 14.6 10.0-20.0 [facility] HospitalIskntskIVAXVNSRWN3012-60-17 11:36:00 Test Item Value Reference Range Interpretation Comments Lymphocytes # (test code = Lymphocytes 1.2 1.0-5.5 #) [facility] HospitalGaxktpeBQAIGLEFDE1997-56-60 11:36:00 Test Item Value Reference Range Interpretation Comments Basophils (test code = 1.0 See_Comment [Aut omated message] The Basophils) system which ge nerated this result tra nsmitted reference range : <=1.0. The reference r nabor was not used to int erpret this result as normal/abnormal . [facility] HospitalNvovkmcTWUNHBYHBF1670-97-05 11:36:00 Test Item Value Reference Range Interpretation Comments Segs-Bands # (test code = Segs-Bands #) 4.4 1.5-8.1 [facility] HospitalUxccoxrJJCCRFYXTP3931-07-54 11:36:00 Test Item Value Reference Range Interpretation Comments Monocytes # (test code 0.5 See_Comment [Aut omated message] The = Monocytes #) system which generated this result tra nsmitted reference range : <=0.8. The reference r nabor was not used to int erpret this result as normal/abnormal . [facility] HospitalTtnylizRJXWCTEATT1454-68-53 11:36:00 Test Item Value Reference Range Interpretation Comments Basophils # (test code 0.1 See_Comment [Aut omated message] The = Basophils #) system which generated this result tra nsmitted reference range : <=0.2. The reference r nabor was not used to int erpret this result as normal/abnormal . [facility] HospitalPdofyyzEZGPXPXIPV9087-96-76 11:36:00 Test Item Value Reference Range Interpretation Comments Eosinophils # (test code 0.1 See_Comment [A utomated message] The = Eosinophils #) system whic h generated this result tra nsmitted reference range : <=0.5. The reference r nabor was not used to int erpret this result as normal/abnormal . [facility] HospitalVditzveTCDUMTVTUZ9276-19-38 11:36:00 Test Item Value Reference Range Interpretation Comments Monocytes (test code = Monocytes) 8.0 2.0-12.0 [facility] HospitalZrppqrjCHGHHBBCQJ0713-00-04 11:36:00 Test Item Value Reference Range Interpretation Comments Lymphocytes (test code = Lymphocytes) 19.2 20.0-40.0 [facility] HospitalWbohxseZHZMJNREVU5980-61-88 11:36:00 Test Item Value Reference Range Interpretation Comments Segs (test code = Segs) 69.5 45.0-75.0 [facility] HospitalXnhufusEZXGHVMCDL0934-42-35 11:36:00 Test Item Value Reference Range Interpretation Comments Eosinophils (test code = 2.3 See_Comment [A utomated message] The Eosinophils) system which ge nerated this result tra nsmitted reference range : <=4.0. The reference r nabor was not used to int erpret this result as normal/abnormal . [facility] HospitalGltfigiHPHRDUGDEH8194-91-80 11:36:00 Test Item Value Reference Range Interpretation Comments PTT (test code = PTT) 35.1 s 22.9-35.8 [facility] HospitalHaprhrmYIUMCGFTZC7054-72-75 11:36:00 Test Item Value Reference Range Interpretation Comments INR (test code = INR) 1.09 0.85-1.17 [facility] HospitalVgabnhkYLOHCTUQGL8216-45-50 11:36:00 Test Item Value Reference Range Interpretation Comments PT (test code = PT) 14.4 s 12.0-14.7 [facility] HospitalMbsjtwuXWEYCCOYWP5471-87-56 11:36:00 Test Item Value Reference Range Interpretation Comments Hgb (test code = Hgb) 9.3 12.0-16.0 [facility] HospitalVlwkrwfALPUUCRYRG4603-77-04 11:36:00 Test Item Value Reference Range Interpretation Comments RBC (test code = RBC) 3.21 4.20-5.40 [facility] HospitalJsabwfzOKAAQNISEB3261-04-26 11:36:00 Test Item Value Reference Range Interpretation Comments WBC (test code = WBC) 6.3 3.7-10.4 [facility] HospitalSyvvnttMYSTKJRHUI2933-88-94 11:36:00 Test Item Value Reference Range Interpretation Comments MCV (test code = MCV) 88.4 80.0-98.0 [facility] HospitalNknmladVEVJBJDXLO3221-12-17 11:36:00 Test Item Value Reference Range Interpretation Comments Hct (test code = Hct) 28.4 36.0-48.0 [facility] HospitalYkshvvwYLQKQMZORS7959-79-84 11:36:00 Test Item Value Reference Range Interpretation Comments Platelet (test code = Platelet) 190 133-450 [facility] HospitalMvduhraNUROMJOZZQ3081-60-42 11:36:00 Test Item Value Reference Range Interpretation Comments RDW (test code = RDW) 14.9 11.5-14.5 [facility] HospitalVkhxdqoXMJLPQOUBM2302-92-84 11:36:00 Test Item Value Reference Range Interpretation Comments MCHC (test code = MCHC) 32.7 32.0-36.0 [facility] HospitalXsufljbPUJQCPPNZF1532-18-83 11:36:00 Test Item Value Reference Range Interpretation Comments MCH (test code = MCH) 28.9 pg 27.0-31.0 [facility] HospitalPosncadWTGDRBJPUV0435-50-33 11:36:00 Test Item Value Reference Range Interpretation Comments MPV (test code = MPV) 8.9 7.4-10.4 [facility] HospitalNawvubjQKJKAXILYVJX7322-60-98 11:36:00 Test Item Value Reference Range Interpretation Comments Chloride Lvl (test code = Chloride Lvl) 111 95-109 [facility] HospitalUhjmqjrIQPLKFWDWYAS5062-37-79 11:36:00 Test Item Value Reference Range Interpretation Comments CO2 (test code = CO2) 19 24-32 [facility] HospitalFgcoapbAZIDSWJJXVOI8746-68-82 11:36:00 Test Item Value Reference Range Interpretation Comments Calcium Lvl (test code = Calcium Lvl) 8.5 8.5-10.5 [facility] HospitalEdivkghQAVLCDJABEAF4237-37-29 11:36:00 Test Item Value Reference Range Interpretation Comments Glucose Lvl (test code = Glucose Lvl) 126 70-99 [facility] HospitalEuwbapbJCGOLSXMBJTI9249-22-15 11:36:00 Test Item Value Reference Range Interpretation Comments Sodium Lvl (test code = Sodium Lvl) 140 135-145 [facility] HospitalEwzwmfePSSTLRSGIUUZ5197-55-94 11:36:00 Test Item Value Reference Range Interpretation Comments Potassium Lvl (test code = Potassium 4.6 3.5-5.1 Lvl) [facility] HospitalXasgailNBVDTBSPNSCF4190-52-74 11:36:00 Test Item Value Reference Range Interpretation Comments BUN (test code = BUN) 50 7-22 [facility] HospitalVcvjxukARGTWSHTMJCB3349-48-46 11:36:00 Test Item Value Reference Range Interpretation Comments Creatinine Lvl (test code = Creatinine 8.31 0.50-1.40 Lvl) [facility] HospitalQoesenePLOKIIPWHLMZ3740-36-30 11:36:00 Test Item Value Reference Range Interpretation Comments eGFR (test code = eGFR) 6 [facility] HospitalPjbkdqoPHPRHJLZQOKP5850-18-21 11:36:00 Test Item Value Reference Range Interpretation Comments AGAP (test code = AGAP) 14.6 10.0-20.0 [facility] HospitalAkeqmugBOILICGZDL1419-91-29 11:36:00 Test Item Value Reference Range Interpretation Comments Lymphocytes # (test code = Lymphocytes 1.2 1.0-5.5 #) [facility] HospitalBcfqijpOMMMSKHWZJ4197-22-56 11:36:00 Test Item Value Reference Range Interpretation Comments Basophils (test code = 1.0 See_Comment [Aut omated message] The Basophils) system which ge nerated this result tra nsmitted reference range : <=1.0. The reference r nabor was not used to int erpret this result as normal/abnormal . [facility] HospitalPqbdajfASHQOFXXNU8989-30-36 11:36:00 Test Item Value Reference Range Interpretation Comments Segs-Bands # (test code = Segs-Bands #) 4.4 1.5-8.1 [facility] HospitalAistuvrWLZGFYKGOW5645-96-42 11:36:00 Test Item Value Reference Range Interpretation Comments Monocytes # (test code 0.5 See_Comment [Aut omated message] The = Monocytes #) system which generated this result tra nsmitted reference range : <=0.8. The reference r nabor was not used to int erpret this result as normal/abnormal . [facility] HospitalQsqhsrvJJEKEIJMGY1987-28-00 11:36:00 Test Item Value Reference Range Interpretation Comments Basophils # (test code 0.1 See_Comment [Aut omated message] The = Basophils #) system which generated this result tra nsmitted reference range : <=0.2. The reference r nabor was not used to int erpret this result as normal/abnormal . [facility] HospitalYwgkfqaPQEZJDNPMH3884-51-71 11:36:00 Test Item Value Reference Range Interpretation Comments Eosinophils # (test code 0.1 See_Comment [A utomated message] The = Eosinophils #) system whic h generated this result tra nsmitted reference range : <=0.5. The reference r nabor was not used to int erpret this result as normal/abnormal . [facility] HospitalLzmfwygMSWXRUNKAH2501-52-54 11:36:00 Test Item Value Reference Range Interpretation Comments Monocytes (test code = Monocytes) 8.0 2.0-12.0 [facility] HospitalCmrmxbiYBKOXQQPJT7013-98-74 11:36:00 Test Item Value Reference Range Interpretation Comments Lymphocytes (test code = Lymphocytes) 19.2 20.0-40.0 [facility] HospitalHlqtodbLELWTQOSGS9553-60-96 11:36:00 Test Item Value Reference Range Interpretation Comments Segs (test code = Segs) 69.5 45.0-75.0 [facility] HospitalMczhxtgWRIDNMEUFB5792-58-16 11:36:00 Test Item Value Reference Range Interpretation Comments Eosinophils (test code = 2.3 See_Comment [A utomated message] The Eosinophils) system which ge nerated this result tra nsmitted reference range : <=4.0. The reference r nabor was not used to int erpret this result as normal/abnormal . [facility] HospitalDrqzxvqKZZVIZQZFK1605-00-15 11:36:00 Test Item Value Reference Range Interpretation Comments PTT (test code = PTT) 35.1 s 22.9-35.8 [facility] HospitalIzvzonoGSUYYEFAJQ0369-51-28 11:36:00 Test Item Value Reference Range Interpretation Comments INR (test code = INR) 1.09 0.85-1.17 [facility] HospitalPfuodgkVKNRKAKXWH8655-48-73 11:36:00 Test Item Value Reference Range Interpretation Comments PT (test code = PT) 14.4 s 12.0-14.7 [facility] HospitalTiwfwqtXKZQRHSYOQ7859-50-31 11:36:00 Test Item Value Reference Range Interpretation Comments Hgb (test code = Hgb) 9.3 12.0-16.0 [facility] HospitalFcngxxsARSGMZYZXS7966-55-63 11:36:00 Test Item Value Reference Range Interpretation Comments RBC (test code = RBC) 3.21 4.20-5.40 [facility] HospitalJcuchbqQEQPBRSMNN1373-71-09 11:36:00 Test Item Value Reference Range Interpretation Comments WBC (test code = WBC) 6.3 3.7-10.4 [facility] HospitalTogkplvHRWIRJBSCE8697-72-71 11:36:00 Test Item Value Reference Range Interpretation Comments MCV (test code = MCV) 88.4 80.0-98.0 [facility] HospitalMijsxgbJTCWYHFWLY0017-74-39 11:36:00 Test Item Value Reference Range Interpretation Comments Hct (test code = Hct) 28.4 36.0-48.0 [facility] HospitalPaoneqiGHQTBOKCTD0453-68-61 11:36:00 Test Item Value Reference Range Interpretation Comments Platelet (test code = Platelet) 190 133-450 [facility] HospitalXmpntziLOSKHRBRJH7432-82-41 11:36:00 Test Item Value Reference Range Interpretation Comments RDW (test code = RDW) 14.9 11.5-14.5 [facility] HospitalFvhkqxoVSJKCADQLS3067-68-62 11:36:00 Test Item Value Reference Range Interpretation Comments MCHC (test code = MCHC) 32.7 32.0-36.0 [facility] HospitalHtczjtyZIAJXIZBAA6522-59-70 11:36:00 Test Item Value Reference Range Interpretation Comments MCH (test code = MCH) 28.9 pg 27.0-31.0 [facility] HospitalUyytnfaIEHPLIDVPK3866-74-17 11:36:00 Test Item Value Reference Range Interpretation Comments MPV (test code = MPV) 8.9 7.4-10.4 [facility] HospitalMdcpmvpSRWDVNPLDPIG6455-18-47 11:36:00 Test Item Value Reference Range Interpretation Comments Chloride Lvl (test code = Chloride Lvl) 111 95-109 [facility] HospitalBkqgvfdSFYQOVTHNBCS5083-95-16 11:36:00 Test Item Value Reference Range Interpretation Comments CO2 (test code = CO2) 19 24-32 [facility] HospitalAzhzfvyOLGRMRMIRWFD8687-58-07 11:36:00 Test Item Value Reference Range Interpretation Comments Calcium Lvl (test code = Calcium Lvl) 8.5 8.5-10.5 [facility] HospitalDhrmgbaNHPHICLWMXVR6840-88-64 11:36:00 Test Item Value Reference Range Interpretation Comments Glucose Lvl (test code = Glucose Lvl) 126 70-99 [facility] HospitalZggfrzzDDYGDMXIWSDQ8430-23-58 11:36:00 Test Item Value Reference Range Interpretation Comments Sodium Lvl (test code = Sodium Lvl) 140 135-145 [facility] HospitalUhsdewwFCFHRQQWIQKJ6264-78-93 11:36:00 Test Item Value Reference Range Interpretation Comments Potassium Lvl (test code = Potassium 4.6 3.5-5.1 Lvl) [facility] HospitalScioyufXLTYVCCYTUJZ0984-42-68 11:36:00 Test Item Value Reference Range Interpretation Comments BUN (test code = BUN) 50 7-22 [facility] HospitalEhkbydeEGULRLGHVZBF1276-62-59 11:36:00 Test Item Value Reference Range Interpretation Comments Creatinine Lvl (test code = Creatinine 8.31 0.50-1.40 Lvl) [facility] HospitalTpunpwqBUEPTJBOTBSE2910-30-67 11:36:00 Test Item Value Reference Range Interpretation Comments eGFR (test code = eGFR) 6 [facility] HospitalUfiqsllSNYWDRXIKUWQ3605-15-62 11:36:00 Test Item Value Reference Range Interpretation Comments AGAP (test code = AGAP) 14.6 10.0-20.0 [facility] HospitalCouvrlbHSWYFVFHUX7414-32-39 11:36:00 Test Item Value Reference Range Interpretation Comments Lymphocytes # (test code = Lymphocytes 1.2 1.0-5.5 #) [facility] HospitalRiqqjfmCOWAGUVWIH4174-20-96 11:36:00 Test Item Value Reference Range Interpretation Comments Basophils (test code = 1.0 See_Comment [Aut omated message] The Basophils) system which ge nerated this result tra nsmitted reference range : <=1.0. The reference r nabor was not used to int erpret this result as normal/abnormal . [facility] HospitalTqtnxjrGBTGGKSDVA7595-76-85 11:36:00 Test Item Value Reference Range Interpretation Comments Segs-Bands # (test code = Segs-Bands #) 4.4 1.5-8.1 [facility] HospitalYliobyqSSQTSALLXR8284-47-58 11:36:00 Test Item Value Reference Range Interpretation Comments Monocytes # (test code 0.5 See_Comment [Aut omated message] The = Monocytes #) system which generated this result tra nsmitted reference range : <=0.8. The reference r nabor was not used to int erpret this result as normal/abnormal . [facility] HospitalZmbmgnuLGHXYCHZCA5119-59-05 11:36:00 Test Item Value Reference Range Interpretation Comments Basophils # (test code 0.1 See_Comment [Aut omated message] The = Basophils #) system which generated this result tra nsmitted reference range : <=0.2. The reference r nabor was not used to int erpret this result as normal/abnormal . [facility] HospitalRbcdujuIAPRCNNJBF6884-58-43 11:36:00 Test Item Value Reference Range Interpretation Comments Eosinophils # (test code 0.1 See_Comment [A utomated message] The = Eosinophils #) system whic h generated this result tra nsmitted reference range : <=0.5. The reference r nabor was not used to int erpret this result as normal/abnormal . [facility] HospitalRwwbfcnZDNWSPOTYL1650-69-47 11:36:00 Test Item Value Reference Range Interpretation Comments Monocytes (test code = Monocytes) 8.0 2.0-12.0 [facility] HospitalFwexxakNAYKYJDJVX5162-03-59 11:36:00 Test Item Value Reference Range Interpretation Comments Lymphocytes (test code = Lymphocytes) 19.2 20.0-40.0 [facility] HospitalLszaryvRSOFIOQDXE2487-53-23 11:36:00 Test Item Value Reference Range Interpretation Comments Segs (test code = Segs) 69.5 45.0-75.0 [facility] HospitalYdnxlhiPHZRPMJPSH3542-63-67 11:36:00 Test Item Value Reference Range Interpretation Comments Eosinophils (test code = 2.3 See_Comment [A utomated message] The Eosinophils) system which ge nerated this result tra nsmitted reference range : <=4.0. The reference r nabor was not used to int erpret this result as normal/abnormal . [facility] HospitalLjaltrqQNALANIWPB0049-35-16 11:36:00 Test Item Value Reference Range Interpretation Comments PTT (test code = PTT) 35.1 s 22.9-35.8 [facility] HospitalGvrzjxtDWYMZQTYDQ8950-14-73 11:36:00 Test Item Value Reference Range Interpretation Comments INR (test code = INR) 1.09 0.85-1.17 [facility] HospitalKltcgkbXDRNYUPFXD7776-16-22 11:36:00 Test Item Value Reference Range Interpretation Comments PT (test code = PT) 14.4 s 12.0-14.7 [facility] HospitalVptbmfwUHAQUZKCQU3575-62-18 11:36:00 Test Item Value Reference Range Interpretation Comments Hgb (test code = Hgb) 9.3 12.0-16.0 [facility] HospitalCfxonowODOVMOSULF0528-32-08 11:36:00 Test Item Value Reference Range Interpretation Comments RBC (test code = RBC) 3.21 4.20-5.40 [facility] HospitalNsoyaouLYFWWSHQWQ8120-33-30 11:36:00 Test Item Value Reference Range Interpretation Comments WBC (test code = WBC) 6.3 3.7-10.4 [facility] HospitalUjgcfhkJJSKDZJREF5449-80-33 11:36:00 Test Item Value Reference Range Interpretation Comments MCV (test code = MCV) 88.4 80.0-98.0 [facility] HospitalMbalacyNLICSUGQHZ2576-19-37 11:36:00 Test Item Value Reference Range Interpretation Comments Hct (test code = Hct) 28.4 36.0-48.0 [facility] HospitalDrmeyajSCHCFOHFWH7617-66-11 11:36:00 Test Item Value Reference Range Interpretation Comments Platelet (test code = Platelet) 190 133-450 [facility] HospitalGqnagkjVHLNDFPNIT2794-47-10 11:36:00 Test Item Value Reference Range Interpretation Comments RDW (test code = RDW) 14.9 11.5-14.5 [facility] HospitalYjqypbhNHWLDXKJZT3839-07-51 11:36:00 Test Item Value Reference Range Interpretation Comments MCHC (test code = MCHC) 32.7 32.0-36.0 [facility] HospitalSnckzcqPONVRQAARS5935-24-25 11:36:00 Test Item Value Reference Range Interpretation Comments MCH (test code = MCH) 28.9 pg 27.0-31.0 [facility] HospitalVibimlaQLJTZLZPGR1653-36-79 11:36:00 Test Item Value Reference Range Interpretation Comments MPV (test code = MPV) 8.9 7.4-10.4 [facility]HccgjpbEJCLTQYNWYSY9121-70-16 11:36:00 Test Item Value Reference Range Interpretation Comments Chloride Lvl (test code = Chloride Lvl) 111 95-109 [facility] HospitalOjrdfugSDLNAYGBNQBH8206-39-46 11:36:00 Test Item Value Reference Range Interpretation Comments CO2 (test code = CO2) 19 24-32 [facility] HospitalUkybcfxFVLPFQQBVTUT9669-13-78 11:36:00 Test Item Value Reference Range Interpretation Comments Calcium Lvl (test code = Calcium Lvl) 8.5 8.5-10.5 [facility] HospitalSvtegllDHDLWKBQXBWO8234-66-12 11:36:00 Test Item Value Reference Range Interpretation Comments Glucose Lvl (test code = Glucose Lvl) 126 70-99 [facility] HospitalDoywjklCYQSUNZDVFUS6353-10-53 11:36:00 Test Item Value Reference Range Interpretation Comments Sodium Lvl (test code = Sodium Lvl) 140 135-145 [facility] HospitalUoewjoqBYMWCPROPKAY7948-81-71 11:36:00 Test Item Value Reference Range Interpretation Comments Potassium Lvl (test code = Potassium 4.6 3.5-5.1 Lvl) [facility] HospitalWjlddfyZXEWMPXUGFSN7777-65-57 11:36:00 Test Item Value Reference Range Interpretation Comments BUN (test code = BUN) 50 7-22 [facility] HospitalNtmizedWJNOXJXLXILX0709-38-01 11:36:00 Test Item Value Reference Range Interpretation Comments Creatinine Lvl (test code = Creatinine 8.31 0.50-1.40 Lvl) [facility] HospitalYejhpdgXLTYLVRWOYFG0311-97-64 11:36:00 Test Item Value Reference Range Interpretation Comments eGFR (test code = eGFR) 6 [facility] HospitalQahurobUOIZVYBGJAOF3538-27-00 11:36:00 Test Item Value Reference Range Interpretation Comments AGAP (test code = AGAP) 14.6 10.0-20.0 [facility] HospitalHnehddiGJJFCMWGRE5336-20-97 11:36:00 Test Item Value Reference Range Interpretation Comments Lymphocytes # (test code = Lymphocytes 1.2 1.0-5.5 #) [facility] HospitalHunmrosAEQGYCBQYG7725-19-06 11:36:00 Test Item Value Reference Range Interpretation Comments Basophils (test code = 1.0 See_Comment [Aut omated message] The Basophils) system which ge nerated this result tra nsmitted reference range : <=1.0. The reference r nabor was not used to int erpret this result as normal/abnormal . [facility] HospitalVcbmhazGMQKOYESJK5838-46-89 11:36:00 Test Item Value Reference Range Interpretation Comments Segs-Bands # (test code = Segs-Bands #) 4.4 1.5-8.1 [facility] HospitalGjscmkmZWBSDHKVHD3677-42-15 11:36:00 Test Item Value Reference Range Interpretation Comments Monocytes # (test code 0.5 See_Comment [Aut omated message] The = Monocytes #) system which generated this result tra nsmitted reference range : <=0.8. The reference r nabor was not used to int erpret this result as normal/abnormal . [facility] HospitalUmspkhxREHEWEYEZG8486-88-85 11:36:00 Test Item Value Reference Range Interpretation Comments Basophils # (test code 0.1 See_Comment [Aut omated message] The = Basophils #) system which generated this result tra nsmitted reference range : <=0.2. The reference r nabor was not used to int erpret this result as normal/abnormal . [facility] HospitalWiclzrkPDZZBCUGAO0499-43-69 11:36:00 Test Item Value Reference Range Interpretation Comments Eosinophils # (test code 0.1 See_Comment [A utomated message] The = Eosinophils #) system whic h generated this result tra nsmitted reference range : <=0.5. The reference r nabor was not used to int erpret this result as normal/abnormal . [facility] HospitalDvliqvbWPKGFNUJYW9937-68-63 11:36:00 Test Item Value Reference Range Interpretation Comments Monocytes (test code = Monocytes) 8.0 2.0-12.0 [facility] HospitalTufruizSVAKSNHZMB7217-20-06 11:36:00 Test Item Value Reference Range Interpretation Comments Lymphocytes (test code = Lymphocytes) 19.2 20.0-40.0 [facility] HospitalSimmltiWOCBNJCWUS0722-36-22 11:36:00 Test Item Value Reference Range Interpretation Comments Segs (test code = Segs) 69.5 45.0-75.0 [facility] HospitalAfcozwwNRVPFTIBNX0905-10-56 11:36:00 Test Item Value Reference Range Interpretation Comments Eosinophils (test code = 2.3 See_Comment [A utomated message] The Eosinophils) system which ge nerated this result tra nsmitted reference range : <=4.0. The reference r nabor was not used to int erpret this result as normal/abnormal . [facility] HospitalOcwkrkcGVSIBDXOKK4018-09-28 11:36:00 Test Item Value Reference Range Interpretation Comments PTT (test code = PTT) 35.1 s 22.9-35.8 [facility] HospitalUedcdxiTAFWWDPROO1556-95-15 11:36:00 Test Item Value Reference Range Interpretation Comments INR (test code = INR) 1.09 0.85-1.17 [facility] HospitalHesbbbyWECKWRGYBT4390-75-66 11:36:00 Test Item Value Reference Range Interpretation Comments PT (test code = PT) 14.4 s 12.0-14.7 [facility] HospitalQojvanoMQKBGZVDJZ2933-74-04 11:36:00 Test Item Value Reference Range Interpretation Comments Hgb (test code = Hgb) 9.3 12.0-16.0 [facility] HospitalLqciimkFWOUTUZJKC2640-39-60 11:36:00 Test Item Value Reference Range Interpretation Comments RBC (test code = RBC) 3.21 4.20-5.40 [facility] HospitalFhcvlbkZOTANDIIPS4311-74-88 11:36:00 Test Item Value Reference Range Interpretation Comments WBC (test code = WBC) 6.3 3.7-10.4 [facility] HospitalTbqvjkqEVKNALUHVI1591-76-13 11:36:00 Test Item Value Reference Range Interpretation Comments MCV (test code = MCV) 88.4 80.0-98.0 [facility] HospitalKlomkytDWPGWEGJAD0550-51-21 11:36:00 Test Item Value Reference Range Interpretation Comments Hct (test code = Hct) 28.4 36.0-48.0 [facility] HospitalKcxuymqXBSULPLFAD9515-83-80 11:36:00 Test Item Value Reference Range Interpretation Comments Platelet (test code = Platelet) 190 133-450 [facility] HospitalPsosdfnAAPOEJPNYS9161-18-66 11:36:00 Test Item Value Reference Range Interpretation Comments RDW (test code = RDW) 14.9 11.5-14.5 [facility] HospitalPbiahbuBXKIDGNJAT4073-87-59 11:36:00 Test Item Value Reference Range Interpretation Comments MCHC (test code = MCHC) 32.7 32.0-36.0 [facility] HospitalJoblumwHMPGCUHNSQ5844-48-12 11:36:00 Test Item Value Reference Range Interpretation Comments MCH (test code = MCH) 28.9 pg 27.0-31.0 [facility] HospitalQwjfdvwTLLNZKGXZY0389-08-98 11:36:00 Test Item Value Reference Range Interpretation Comments MPV (test code = MPV) 8.9 7.4-10.4 [facility] HospitalTrizfmrPIRYIHZHAHBP9387-98-47 11:36:00 Test Item Value Reference Range Interpretation Comments Chloride Lvl (test code = Chloride Lvl) 111 95-109 [facility] HospitalIvnmmfaVIKQNHESQSUR8884-79-72 11:36:00 Test Item Value Reference Range Interpretation Comments CO2 (test code = CO2) 19 24-32 [facility] HospitalSuucawlXZDMWNFAMGUL1172-78-16 11:36:00 Test Item Value Reference Range Interpretation Comments Calcium Lvl (test code = Calcium Lvl) 8.5 8.5-10.5 [facility] HospitalRntvvmnLWVDYZXSZNIK2480-70-86 11:36:00 Test Item Value Reference Range Interpretation Comments Glucose Lvl (test code = Glucose Lvl) 126 70-99 [facility] HospitalXvfmqrdAXPVSRDUZWSM8703-80-94 11:36:00 Test Item Value Reference Range Interpretation Comments Sodium Lvl (test code = Sodium Lvl) 140 135-145 [facility] HospitalSowehdhWCLGNOVKZECZ6528-14-27 11:36:00 Test Item Value Reference Range Interpretation Comments Potassium Lvl (test code = Potassium 4.6 3.5-5.1 Lvl) [facility] HospitalEmxgkmcVNXAEUCYWDBS5138-08-43 11:36:00 Test Item Value Reference Range Interpretation Comments BUN (test code = BUN) 50 7-22 [facility] HospitalMoumuwhSLGJYYMPHRMI6433-30-84 11:36:00 Test Item Value Reference Range Interpretation Comments Creatinine Lvl (test code = Creatinine 8.31 0.50-1.40 Lvl) [facility] HospitalQhzxnisFTUJYKGINICH5503-70-74 11:36:00 Test Item Value Reference Range Interpretation Comments eGFR (test code = eGFR) 6 [facility] HospitalFhozngfISCMOWZDJSMD9593-08-09 11:36:00 Test Item Value Reference Range Interpretation Comments AGAP (test code = AGAP) 14.6 10.0-20.0 [facility] HospitalOqlrwbzKQDKMKIENV0261-64-33 11:36:00 Test Item Value Reference Range Interpretation Comments Lymphocytes # (test code = Lymphocytes 1.2 1.0-5.5 #) [facility] HospitalJjfylqqWXGWVKCDEB2134-97-55 11:36:00 Test Item Value Reference Range Interpretation Comments Basophils (test code = 1.0 See_Comment [Aut omated message] The Basophils) system which ge nerated this result tra nsmitted reference range : <=1.0. The reference r nabor was not used to int erpret this result as normal/abnormal . [facility] HospitalParbxjnCXJOTYJILA7804-38-69 11:36:00 Test Item Value Reference Range Interpretation Comments Segs-Bands # (test code = Segs-Bands #) 4.4 1.5-8.1 [facility] HospitalAdtoidjDFYDVSJTOS8943-59-52 11:36:00 Test Item Value Reference Range Interpretation Comments Monocytes # (test code 0.5 See_Comment [Aut omated message] The = Monocytes #) system which generated this result tra nsmitted reference range : <=0.8. The reference r nabor was not used to int erpret this result as normal/abnormal . [facility] HospitalNmfcdrlDVSUNGZHWT6920-25-36 11:36:00 Test Item Value Reference Range Interpretation Comments Basophils # (test code 0.1 See_Comment [Aut omated message] The = Basophils #) system which generated this result tra nsmitted reference range : <=0.2. The reference r nabor was not used to int erpret this result as normal/abnormal . [facility] HospitalDgzbnbgXNDTUPQZHR9656-81-33 11:36:00 Test Item Value Reference Range Interpretation Comments Eosinophils # (test code 0.1 See_Comment [A utomated message] The = Eosinophils #) system whic h generated this result tra nsmitted reference range : <=0.5. The reference r nabor was not used to int erpret this result as normal/abnormal . [facility] HospitalGbkhchuVWVYWJMJOY5602-79-29 11:36:00 Test Item Value Reference Range Interpretation Comments Monocytes (test code = Monocytes) 8.0 2.0-12.0 [facility] HospitalYpjtexpALLANXFSUQ1183-69-05 11:36:00 Test Item Value Reference Range Interpretation Comments Lymphocytes (test code = Lymphocytes) 19.2 20.0-40.0 [facility] HospitalPhonwfeXKAGJWLORU2889-35-53 11:36:00 Test Item Value Reference Range Interpretation Comments Segs (test code = Segs) 69.5 45.0-75.0 [facility] HospitalSstsswyGVDDPVWAIK5953-10-17 11:36:00 Test Item Value Reference Range Interpretation Comments Eosinophils (test code = 2.3 See_Comment [A utomated message] The Eosinophils) system which ge nerated this result tra nsmitted reference range : <=4.0. The reference r nabor was not used to int erpret this result as normal/abnormal . [facility] HospitalWdrzqzvWCLPBGQXGW9797-39-10 11:36:00 Test Item Value Reference Range Interpretation Comments PTT (test code = PTT) 35.1 s 22.9-35.8 [facility] HospitalAqblwfdQUPFBHTDQT9135-10-20 11:36:00 Test Item Value Reference Range Interpretation Comments INR (test code = INR) 1.09 0.85-1.17 [facility] HospitalPwnmousFSYQMOSDKB0578-20-08 11:36:00 Test Item Value Reference Range Interpretation Comments PT (test code = PT) 14.4 s 12.0-14.7 [facility] HospitalWwkxembBPZUQPHVWB9258-17-12 11:36:00 Test Item Value Reference Range Interpretation Comments Hgb (test code = Hgb) 9.3 12.0-16.0 [facility] HospitalEjeifkpPMRWCCPXSX0158-31-62 11:36:00 Test Item Value Reference Range Interpretation Comments RBC (test code = RBC) 3.21 4.20-5.40 [facility] HospitalVszvdrtOZEHHCPDCT3870-38-66 11:36:00 Test Item Value Reference Range Interpretation Comments WBC (test code = WBC) 6.3 3.7-10.4 [facility] HospitalNcetxewKXARMSSVID0940-63-13 11:36:00 Test Item Value Reference Range Interpretation Comments MCV (test code = MCV) 88.4 80.0-98.0 [facility] HospitalCzsknzxQTFIMQGZDM8638-96-29 11:36:00 Test Item Value Reference Range Interpretation Comments Hct (test code = Hct) 28.4 36.0-48.0 [facility] HospitalSckpypqIMLTIEVHJU7153-72-54 11:36:00 Test Item Value Reference Range Interpretation Comments Platelet (test code = Platelet) 190 133-450 [facility] HospitalKuncesnPOCZWJOPNU6170-27-84 11:36:00 Test Item Value Reference Range Interpretation Comments RDW (test code = RDW) 14.9 11.5-14.5 [facility] HospitalWqjpsyzSUEMTPOYZH8915-33-25 11:36:00 Test Item Value Reference Range Interpretation Comments MCHC (test code = MCHC) 32.7 32.0-36.0 [facility] HospitalUlxnkmdICDMXWDVQY2808-11-15 11:36:00 Test Item Value Reference Range Interpretation Comments MCH (test code = MCH) 28.9 pg 27.0-31.0 [facility] HospitalGhtceofAYMKKANMGE1571-61-92 11:36:00 Test Item Value Reference Range Interpretation Comments MPV (test code = MPV) 8.9 7.4-10.4 [facility] HospitalSswoeavOUGRCLQQFYVN1090-00-71 11:36:00 Test Item Value Reference Range Interpretation Comments Chloride Lvl (test code = Chloride Lvl) 111 95-109 [facility] HospitalCyzgdbnGRITMEWJJZLQ6223-55-88 11:36:00 Test Item Value Reference Range Interpretation Comments CO2 (test code = CO2) 19 24-32 [facility] HospitalNbnvoorUFAHMBKXVIKG4903-52-75 11:36:00 Test Item Value Reference Range Interpretation Comments Calcium Lvl (test code = Calcium Lvl) 8.5 8.5-10.5 [facility] HospitalSpemhdiSPJEWIBSUJZG1453-99-12 11:36:00 Test Item Value Reference Range Interpretation Comments Glucose Lvl (test code = Glucose Lvl) 126 70-99 [facility] HospitalNhtuvzuWIPNWSFWSSER3673-79-23 11:36:00 Test Item Value Reference Range Interpretation Comments Sodium Lvl (test code = Sodium Lvl) 140 135-145 [facility] HospitalDoxwbvkNVTRPWSUWOCE1074-01-57 11:36:00 Test Item Value Reference Range Interpretation Comments Potassium Lvl (test code = Potassium 4.6 3.5-5.1 Lvl) [facility] HospitalZmogrnwQWTJUIJALJUV9639-83-73 11:36:00 Test Item Value Reference Range Interpretation Comments BUN (test code = BUN) 50 7-22 [facility] HospitalSnbtnxtGDIIEVPLRAPS4983-49-52 11:36:00 Test Item Value Reference Range Interpretation Comments Creatinine Lvl (test code = Creatinine 8.31 0.50-1.40 Lvl) [facility] HospitalDwqcjtxUIXSLATUMBUB7704-70-26 11:36:00 Test Item Value Reference Range Interpretation Comments eGFR (test code = eGFR) 6 [facility] HospitalWewgnzuTLCEQIFETRXY1542-11-91 11:36:00 Test Item Value Reference Range Interpretation Comments AGAP (test code = AGAP) 14.6 10.0-20.0 [facility] HospitalCiqdaxiJAOSZTYQYV7518-59-90 11:36:00 Test Item Value Reference Range Interpretation Comments Lymphocytes # (test code = Lymphocytes 1.2 1.0-5.5 #) [facility] HospitalNkiuafgGYWGMMGYMD2085-98-38 11:36:00 Test Item Value Reference Range Interpretation Comments Basophils (test code = 1.0 See_Comment [Aut omated message] The Basophils) system which ge nerated this result tra nsmitted reference range : <=1.0. The reference r nabor was not used to int erpret this result as normal/abnormal . [facility] HospitalWnqgmwmOPWRMCCQXX0500-44-84 11:36:00 Test Item Value Reference Range Interpretation Comments Segs-Bands # (test code = Segs-Bands #) 4.4 1.5-8.1 [facility] HospitalIhuhcnvRMGWYTWEGE6615-23-67 11:36:00 Test Item Value Reference Range Interpretation Comments Monocytes # (test code 0.5 See_Comment [Aut omated message] The = Monocytes #) system which generated this result tra nsmitted reference range : <=0.8. The reference r nabor was not used to int erpret this result as normal/abnormal . [facility] HospitalYugpdqxMJQLCGCPNV2019-89-65 11:36:00 Test Item Value Reference Range Interpretation Comments Basophils # (test code 0.1 See_Comment [Aut omated message] The = Basophils #) system which generated this result tra nsmitted reference range : <=0.2. The reference r nabor was not used to int erpret this result as normal/abnormal . [facility] HospitalOcmudjjRENCHAZLQM4086-76-65 11:36:00 Test Item Value Reference Range Interpretation Comments Eosinophils # (test code 0.1 See_Comment [A utomated message] The = Eosinophils #) system whic h generated this result tra nsmitted reference range : <=0.5. The reference r nabor was not used to int erpret this result as normal/abnormal . [facility] HospitalKitlaxvCLROQIDSSO8566-36-82 11:36:00 Test Item Value Reference Range Interpretation Comments Monocytes (test code = Monocytes) 8.0 2.0-12.0 [facility] HospitalYfqujrnPVJDDARTBJ5461-98-48 11:36:00 Test Item Value Reference Range Interpretation Comments Lymphocytes (test code = Lymphocytes) 19.2 20.0-40.0 [facility] HospitalEyuqbmcESFMBGDYEU6406-91-94 11:36:00 Test Item Value Reference Range Interpretation Comments Segs (test code = Segs) 69.5 45.0-75.0 [facility] HospitalZxiurnyMAQIFTIRKD5865-45-79 11:36:00 Test Item Value Reference Range Interpretation Comments Eosinophils (test code = 2.3 See_Comment [A utomated message] The Eosinophils) system which ge nerated this result tra nsmitted reference range : <=4.0. The reference r nabor was not used to int erpret this result as normal/abnormal . [facility] HospitalBfzlkuzFVFRTZPUMI2291-58-14 11:36:00 Test Item Value Reference Range Interpretation Comments PTT (test code = PTT) 35.1 s 22.9-35.8 [facility] HospitalKvcvzfeHLEZLVMJHA2027-80-85 11:36:00 Test Item Value Reference Range Interpretation Comments INR (test code = INR) 1.09 0.85-1.17 [facility] HospitalKcpzdksVBJBPAUYIW4956-58-94 11:36:00 Test Item Value Reference Range Interpretation Comments PT (test code = PT) 14.4 s 12.0-14.7 [facility] HospitalNcnvrdqQVETEPMTSF1255-45-31 11:36:00 Test Item Value Reference Range Interpretation Comments Hgb (test code = Hgb) 9.3 12.0-16.0 [facility] HospitalQiwsqbsVEVXZPVHEU9518-36-05 11:36:00 Test Item Value Reference Range Interpretation Comments RBC (test code = RBC) 3.21 4.20-5.40 [facility] HospitalIkfaosuCNKRKCLFIQ0785-78-62 11:36:00 Test Item Value Reference Range Interpretation Comments WBC (test code = WBC) 6.3 3.7-10.4 [facility] HospitalDrqwyjmLOZSGNPCPQ5118-57-37 11:36:00 Test Item Value Reference Range Interpretation Comments MCV (test code = MCV) 88.4 80.0-98.0 [facility] HospitalGvfkbpqZIXLOYCCNS3665-07-61 11:36:00 Test Item Value Reference Range Interpretation Comments Hct (test code = Hct) 28.4 36.0-48.0 [facility] HospitalDpvngbuTWOEEGFXXY6903-37-09 11:36:00 Test Item Value Reference Range Interpretation Comments Platelet (test code = Platelet) 190 133-450 [facility] HospitalIhclmylDVIDHZCBAX1581-04-41 11:36:00 Test Item Value Reference Range Interpretation Comments RDW (test code = RDW) 14.9 11.5-14.5 [facility] HospitalHypdsraRNTUHUPFSQ3774-26-69 11:36:00 Test Item Value Reference Range Interpretation Comments MCHC (test code = MCHC) 32.7 32.0-36.0 [facility] RpzmfrpUJSEUVAVML6900-68-44 11:36:00 Test Item Value Reference Range Interpretation Comments MCH (test code = MCH) 28.9 pg 27.0-31.0 [facility] OlhyohlMMNGEWTMQV2120-30-57 11:36:00 Test Item Value Reference Range Interpretation Comments MPV (test code = MPV) 8.9 7.4-10.4 [facility] AuqifwoPREYCMXURZDT7614-96-45 11:36:10990Readitjk HermannELECTROLYTES 2015-07-01 11:36:0019[facility] PwanwhcSYDYOEBEDNCK9923-16-98 11:36:008.5[facility] ZlcnfzmVEFODJXMFTGM1871-32-28 11:36:30557Zkupffze SicftqzJZMQBSEVGBEP4754-51-56 11:36:14956Jnosmqve NhyutcgNVAOMUKZQDPX0448-80-52 11:36:004.6[facility] EHDNDUUWMCAW7677-08-15 11:36:0050[facility] KenlvyhBMPGLOIABDQH2442-50-81 11:36:00 8.31[facility] DpelquwIEXKWDMZOCRB7937-55-26 11:36:006[facility] HermannELECTROLYTES 2015-07-01 11:36:0014.6[facility] RnerjkxCFAXHOJZLN1425-00-41 11:36:001.2[facility] LvdqxcqJUZNCSKSGX7407-98-93 11:36:001.0[facility] UhzgibjMBOXLXIVIT5851-72-71 11:36:004.4[facility] YoxkjmlNLWUEQFXEK1275-15-82 11:36:000.5[facility] GJZUTLQYTZ3651-08-46 11:36:000.1[facility] KvzyzlzIBEKYQOMPE2082-05-43 11:36:000.1 [facility] QjghtmiCJGJMFSSIM4550-36-94 11:36:008.0[facility] HermannHEMATOLOGY 2015-07-01 11:36:0019.2[facility] XcwsvcbHRBEJUIKFA3726-42-56 11:36:0069.5[facility] NgrzqvwASBCVVQSGK9718-21-30 11:36:002.3[facility] VbjtmrlRVVRZUJOMI9648-91-39 11:36:00 Test Item Value Reference Range Interpretation Comments PTT (test code = PTT) 35.1 s 22.9-35.8 [facility] RruaxngFEMCHRWOGC7625-04-57 11:36:001.09[facility]annHEMATOLOGY 2015-07-01 11:36:00 Test Item Value Reference Range Interpretation Comments PT (test code = PT) 14.4 s 12.0-14.7 [facility] HoujwyySOLGFCDFJG9617-06-24 11:36:009.3[facility] HermannHEMATOLOGY 2015-07-01 11:36:003.21[facility] RfauzejGXVQGATKBU6105-80-53 11:36:006.3[facility] EzyqeupCDIYEQZAEN5900-18-27 11:36:0088.4[facility] AgbleegEWUMWUIPRY0235-69-52 11:36:0028.4[facility] BzaqpyxQYALZTKUEN3197-01-25 11:36:33540Bbmquucm [facility] SAZCJVJTBQ8304-21-08 11:36:0014.9[facility] TlppjgmVZGOULBFAK8380-25-22 11:36:00 32.7[facility] BpfhriqBFVQIELSGC8303-84-14 11:36:00 Test Item Value Reference Range Interpretation Comments MCH (test code = MCH) 28.9 pg 27.0-31.0 [facility] DsmhmylJQYCGDMYMJ6786-32-16 11:36:008.9[facility] HermannELECTROLYTES 2015-07-01 11:36:81381Irdmdqsn KkmkokjMYCYCVGQWVWM3997-18-65 11:36:0019[facility] PwvstmyYAWONBIAJHQI6176-15-51 11:36:008.5[facility] MifasxlMRWXNFQRDJLD3834-34-03 11:36:50944Csygewvl RztdwllYROMHDJMOCDL8195-16-28 11:36:85886Utfxxnip [facility] KJKTYGORNQUO0073-45-48 11:36:004.6[facility] QdhodruHCPLHNZYLRJM0173-14-98 11:36:0050[facility] ZkpzmxlBHRBAVIZYEFX3510-44-57 11:36:008.31[facility] GLQKIAHSJIDG4687-42-69 11:36:006[facility] BwjdebeSIUVHDAQNFKC2157-68-21 11:36:00 14.6[facility] RqfvngiWROPQWWZTS2304-51-83 11:36:001.2[facility] HermannHEMATOLOGY 2015-07-01 11:36:001.0[facility] PbahwpaNXYFNFIWGE4068-99-78 11:36:004.4[facility] RbyujcsVRYJMHPMPA8092-34-45 11:36:000.5[facility] JpdygrzXTQKLBAQSQ2497-00-52 11:36:000.1[facility] BhfochgDFLSOQWKSF2635-53-64 11:36:000.1[facility] FYHVSDARMM0078-88-41 11:36:008.0[facility] JgsnvwwJMNKSTKIIY2573-14-58 11:36:00 19.2[facility] UmcakaeQTGIHTQBZI8504-23-92 11:36:0069.5[facility] HermannHEMATOLOGY 2015-07-01 11:36:002.3[facility] AdnczdaOMVXLRFAFX5681-67-64 11:36:00 Test Item Value Reference Range Interpretation Comments PTT (test code = PTT) 35.1 s 22.9-35.8 [facility] XyrsplzFELPVBBYNW0983-35-86 11:36:001.09[facility]annHEMATOLOGY 2015-07-01 11:36:00 Test Item Value Reference Range Interpretation Comments PT (test code = PT) 14.4 s 12.0-14.7 [facility] RipyasvNOQZTBCCJY1987-25-35 11:36:009.3[facility] HermannHEMATOLOGY 2015-07-01 11:36:003.21[facility] OsirpvtUEEAMPMLNQ5170-01-38 11:36:006.3[facility] IqlqcouVVYERFSTHS1637-80-36 11:36:0088.4[facility] EqmpcprZNFVMKPQWE2113-92-21 11:36:0028.4[facility] PlhumofXTVEIUEFJV7993-73-92 11:36:14244Eqwywfrw [facility] IFKXKWCVWZ8143-82-73 11:36:0014.9[facility] NbpdadnUVSXGIJVRB8563-89-03 11:36:00 32.7[facility] HospitalBbpvczrNYWIRZIVSZ1075-15-09 11:36:00 Test Item Value Reference Range Interpretation Comments MCH (test code = MCH) 28.9 pg 27.0-31.0 [facility] HospitalQtjdmpsZVQGINPCYT6318-40-70 11:36:008.9[facility] 2015-07-01 11:36:00 Test Item Value Reference Range Interpretation Comments Chloride Lvl (test code = Chloride Lvl) 111 95-109 [facility] HospitalRbmvyeyHZHGLZAYMRIF6349-41-65 11:36:00 Test Item Value Reference Range Interpretation Comments CO2 (test code = CO2) 19 24-32 [facility] HospitalZlabwxpGBATQQOACDSE3800-76-20 11:36:00 Test Item Value Reference Range Interpretation Comments Calcium Lvl (test code = Calcium Lvl) 8.5 8.5-10.5 [facility] HospitalRomlunrKJCMAUBPEHQP1295-49-68 11:36:00 Test Item Value Reference Range Interpretation Comments Glucose Lvl (test code = Glucose Lvl) 126 70-99 [facility] HospitalWcbblcfXJYTUWBPPAEC4693-09-77 11:36:00 Test Item Value Reference Range Interpretation Comments Sodium Lvl (test code = Sodium Lvl) 140 135-145 [facility] HospitalCppzkudAHPDNSITAAOY6112-15-45 11:36:00 Test Item Value Reference Range Interpretation Comments Potassium Lvl (test code = Potassium 4.6 3.5-5.1 Lvl) [facility] HospitalVcejgvnHNVCFALLISQS5503-18-10 11:36:00 Test Item Value Reference Range Interpretation Comments BUN (test code = BUN) 50 7-22 [facility] HospitalTcygbvaKNORUMULXHFQ4748-19-69 11:36:00 Test Item Value Reference Range Interpretation Comments Creatinine Lvl (test code = Creatinine 8.31 0.50-1.40 Lvl) [facility] HospitalZswvhhcBGYWXKWUHJFK2656-50-33 11:36:00 Test Item Value Reference Range Interpretation Comments eGFR (test code = eGFR) 6 [facility] HospitalJugetojYSOVQVVWBMXB6335-07-05 11:36:00 Test Item Value Reference Range Interpretation Comments AGAP (test code = AGAP) 14.6 10.0-20.0 [facility] HospitalCtzoovxMAEDGBPBZG3255-49-20 11:36:00 Test Item Value Reference Range Interpretation Comments Lymphocytes # (test code = Lymphocytes 1.2 1.0-5.5 #) [facility] HospitalUluotlsBOOFARTVVA0052-42-12 11:36:00 Test Item Value Reference Range Interpretation Comments Basophils (test code = 1.0 See_Comment [Aut omated message] The Basophils) system which ge nerated this result tra nsmitted reference range : <=1.0. The reference r nabor was not used to int erpret this result as normal/abnormal . [facility] HospitalMajhkcaSSOPNIPISJ5113-53-22 11:36:00 Test Item Value Reference Range Interpretation Comments Segs-Bands # (test code = Segs-Bands #) 4.4 1.5-8.1 [facility] HospitalQjxnthoATNMPEFCRB7046-98-46 11:36:00 Test Item Value Reference Range Interpretation Comments Monocytes # (test code 0.5 See_Comment [Aut omated message] The = Monocytes #) system which generated this result tra nsmitted reference range : <=0.8. The reference r nabor was not used to int erpret this result as normal/abnormal . [facility] HospitalElvollzRDUDZFHSHS3572-69-56 11:36:00 Test Item Value Reference Range Interpretation Comments Basophils # (test code 0.1 See_Comment [Aut omated message] The = Basophils #) system which generated this result tra nsmitted reference range : <=0.2. The reference r nabor was not used to int erpret this result as normal/abnormal . [facility] HospitalOicemddOFUMVLJGTE0908-91-94 11:36:00 Test Item Value Reference Range Interpretation Comments Eosinophils # (test code 0.1 See_Comment [A utomated message] The = Eosinophils #) system whic h generated this result tra nsmitted reference range : <=0.5. The reference r nabor was not used to int erpret this result as normal/abnormal . [facility] HospitalRkmjylwBNPSXSGTTJ8397-31-76 11:36:00 Test Item Value Reference Range Interpretation Comments Monocytes (test code = Monocytes) 8.0 2.0-12.0 [facility] HospitalQaujqupKXMGTKERXS0983-50-84 11:36:00 Test Item Value Reference Range Interpretation Comments Lymphocytes (test code = Lymphocytes) 19.2 20.0-40.0 [facility] HospitalRopprzgRKHVACTRKI5442-47-17 11:36:00 Test Item Value Reference Range Interpretation Comments Segs (test code = Segs) 69.5 45.0-75.0 [facility] HospitalJrxkodeUIVIZYVAUQ0484-74-89 11:36:00 Test Item Value Reference Range Interpretation Comments Eosinophils (test code = 2.3 See_Comment [A utomated message] The Eosinophils) system which ge nerated this result tra nsmitted reference range : <=4.0. The reference r nabor was not used to int erpret this result as normal/abnormal . [facility] HospitalFfbyielBCANDEKJSD6259-24-13 11:36:00 Test Item Value Reference Range Interpretation Comments PTT (test code = PTT) 35.1 s 22.9-35.8 [facility] HospitalMmvjtnxZYZXBDZBFM1438-39-42 11:36:00 Test Item Value Reference Range Interpretation Comments INR (test code = INR) 1.09 0.85-1.17 [facility] HospitalWadxulrZCYMVPKSEF1740-51-56 11:36:00 Test Item Value Reference Range Interpretation Comments PT (test code = PT) 14.4 s 12.0-14.7 [facility] HospitalYlwbmdhKBAWVVHDZW3539-28-15 11:36:00 Test Item Value Reference Range Interpretation Comments Hgb (test code = Hgb) 9.3 12.0-16.0 [facility] HospitalBmugjcqRCVRRKNDXR3202-90-45 11:36:00 Test Item Value Reference Range Interpretation Comments RBC (test code = RBC) 3.21 4.20-5.40 [facility] HospitalTijamzaGJQUKGWIAC9241-77-86 11:36:00 Test Item Value Reference Range Interpretation Comments WBC (test code = WBC) 6.3 3.7-10.4 [facility] HospitalKeieoblEXITFQGLQI5073-46-32 11:36:00 Test Item Value Reference Range Interpretation Comments MCV (test code = MCV) 88.4 80.0-98.0 [facility] HospitalGyuknwhLURAGKEPPQ2579-83-61 11:36:00 Test Item Value Reference Range Interpretation Comments Hct (test code = Hct) 28.4 36.0-48.0 [facility] HospitalVnzccrcLMXXCOTVJE4491-56-58 11:36:00 Test Item Value Reference Range Interpretation Comments Platelet (test code = Platelet) 190 133-450 [facility] HospitalXsqeiwkSMFKXCCCOB1413-54-84 11:36:00 Test Item Value Reference Range Interpretation Comments RDW (test code = RDW) 14.9 11.5-14.5 [facility] HospitalOpuowjlFLTZPFHZGL8640-29-88 11:36:00 Test Item Value Reference Range Interpretation Comments MCHC (test code = MCHC) 32.7 32.0-36.0 [facility] HospitalQhdgnohZAZPHIOPCQ3824-41-16 11:36:00 Test Item Value Reference Range Interpretation Comments MCH (test code = MCH) 28.9 pg 27.0-31.0 [facility] HospitalOmqvfgnYTNMWJPLNK1418-32-70 11:36:00 Test Item Value Reference Range Interpretation Comments MPV (test code = MPV) 8.9 7.4-10.4 [facility] HospitalCrvlehxHYZVYWITHO1636-44-26 11:36:00 Test Item Value Reference Range Interpretation Comments Eosinophils # (test code 0.1 See_Comment [A utomated message] The = Eosinophils #) system whic h generated this result tra nsmitted reference range : <=0.5. The reference r nabor was not used to int erpret this result as normal/abnormal . [facility] HospitalCchlarqPMIGHDOPZX5903-18-63 11:36:00 Test Item Value Reference Range Interpretation Comments Monocytes (test code = Monocytes) 8.0 2.0-12.0 [facility] HospitalYslhugfKTHDPUXVZP4872-14-35 11:36:00 Test Item Value Reference Range Interpretation Comments Lymphocytes (test code = Lymphocytes) 19.2 20.0-40.0 [facility] HospitalUqxppmlMPZNVDPWLE8197-28-96 11:36:00 Test Item Value Reference Range Interpretation Comments Segs (test code = Segs) 69.5 45.0-75.0 [facility] HospitalDtcxztnHQZHDCTPYM8640-08-71 11:36:00 Test Item Value Reference Range Interpretation Comments Eosinophils (test code = 2.3 See_Comment [A utomated message] The Eosinophils) system which ge nerated this result tra nsmitted reference range : <=4.0. The reference r nabor was not used to int erpret this result as normal/abnormal . [facility] HospitalDebrmpgFAAHWEFNUP9598-38-19 11:36:00 Test Item Value Reference Range Interpretation Comments PTT (test code = PTT) 35.1 s 22.9-35.8 [facility] HospitalCazdikyIEPYOGDFQQ2960-93-92 11:36:00 Test Item Value Reference Range Interpretation Comments INR (test code = INR) 1.09 0.85-1.17 [facility] HospitalPdoyuvlTBSPZXYVHV9493-11-72 11:36:00 Test Item Value Reference Range Interpretation Comments PT (test code = PT) 14.4 s 12.0-14.7 [facility] HospitalTrqvkvsMWZZSXWTAU9099-71-45 11:36:00 Test Item Value Reference Range Interpretation Comments Hgb (test code = Hgb) 9.3 12.0-16.0 [facility] HospitalNcleitgHANMTWSQCV5592-08-94 11:36:00 Test Item Value Reference Range Interpretation Comments RBC (test code = RBC) 3.21 4.20-5.40 [facility] HospitalAvxdtdjEWXZLRVJQJ5374-13-71 11:36:00 Test Item Value Reference Range Interpretation Comments WBC (test code = WBC) 6.3 3.7-10.4 [facility] HospitalRexyqazABFIHKPKYX2416-75-94 11:36:00 Test Item Value Reference Range Interpretation Comments MCV (test code = MCV) 88.4 80.0-98.0 [facility] HospitalPyxjwfyNWZERQOZJD8017-15-86 11:36:00 Test Item Value Reference Range Interpretation Comments Hct (test code = Hct) 28.4 36.0-48.0 [facility] HospitalIsyawukZMZHYRZGQK7562-18-24 11:36:00 Test Item Value Reference Range Interpretation Comments Platelet (test code = Platelet) 190 133-450 [facility] HospitalVonhkvbONDDPOPWGK6278-40-17 11:36:00 Test Item Value Reference Range Interpretation Comments RDW (test code = RDW) 14.9 11.5-14.5 [facility] HospitalWvyiyurAKWNXTFRQT3082-50-58 11:36:00 Test Item Value Reference Range Interpretation Comments MCHC (test code = MCHC) 32.7 32.0-36.0 [facility] HospitalPchnhrlPANYIVMCXT7107-84-36 11:36:00 Test Item Value Reference Range Interpretation Comments MCH (test code = MCH) 28.9 pg 27.0-31.0 [facility] HospitalRowrzyoDQJSDEUOID7736-39-41 11:36:00 Test Item Value Reference Range Interpretation Comments MPV (test code = MPV) 8.9 7.4-10.4 [facility]XyhzrqeZPSQADQFMHOX6388-82-52 11:36:00 Test Item Value Reference Range Interpretation Comments Chloride Lvl (test code = Chloride Lvl) 111 95-109 [facility] HospitalJmlsdoiHRFEXXJRQOIQ1983-63-60 11:36:00 Test Item Value Reference Range Interpretation Comments CO2 (test code = CO2) 19 24-32 [facility] HospitalTxzlhffYTCHSDWLLGQA3583-86-51 11:36:00 Test Item Value Reference Range Interpretation Comments Calcium Lvl (test code = Calcium Lvl) 8.5 8.5-10.5 [facility] HospitalObqekfjIRGQROZGPVYH5256-58-97 11:36:00 Test Item Value Reference Range Interpretation Comments Glucose Lvl (test code = Glucose Lvl) 126 70-99 [facility] HospitalBlovksmYATHVITPPNGJ3015-53-62 11:36:00 Test Item Value Reference Range Interpretation Comments Sodium Lvl (test code = Sodium Lvl) 140 135-145 [facility] HospitalYozkengRIAPLAWDAFCN3921-99-39 11:36:00 Test Item Value Reference Range Interpretation Comments Potassium Lvl (test code = Potassium 4.6 3.5-5.1 Lvl) [facility] HospitalXatpvnmTRARMJMDLKZA5901-90-29 11:36:00 Test Item Value Reference Range Interpretation Comments BUN (test code = BUN) 50 7-22 [facility] HospitalDnzeqzfIKNPIBBVTQGS8797-20-14 11:36:00 Test Item Value Reference Range Interpretation Comments Creatinine Lvl (test code = Creatinine 8.31 0.50-1.40 Lvl) [facility] HospitalIwsyfzlDGTZKLFFRCNF5346-17-08 11:36:00 Test Item Value Reference Range Interpretation Comments eGFR (test code = eGFR) 6 [facility] HospitalVfahlcqKBAUKGWYBKGT1178-77-24 11:36:00 Test Item Value Reference Range Interpretation Comments AGAP (test code = AGAP) 14.6 10.0-20.0 [facility] HospitalRubstiiITLMOTSGWW1934-24-40 11:36:00 Test Item Value Reference Range Interpretation Comments Lymphocytes # (test code = Lymphocytes 1.2 1.0-5.5 #) [facility] HospitalHdxxkylHFPXUKVAZG6511-27-94 11:36:00 Test Item Value Reference Range Interpretation Comments Basophils (test code = 1.0 See_Comment [Aut omated message] The Basophils) system which ge nerated this result tra nsmitted reference range : <=1.0. The reference r nabor was not used to int erpret this result as normal/abnormal . [facility] HospitalKdsygqbTIHXWLJVHC7543-00-65 11:36:00 Test Item Value Reference Range Interpretation Comments Segs-Bands # (test code = Segs-Bands #) 4.4 1.5-8.1 [facility] HospitalZaeuprhKSGFAVBPVI2239-80-89 11:36:00 Test Item Value Reference Range Interpretation Comments Monocytes # (test code 0.5 See_Comment [Aut omated message] The = Monocytes #) system which generated this result tra nsmitted reference range : <=0.8. The reference r nabor was not used to int erpret this result as normal/abnormal . [facility] FpmafwrZMWEQJLUAM7007-47-22 11:36:00 Test Item Value Reference Range Interpretation Comments Basophils # (test code 0.1 See_Comment [Aut omated message] The = Basophils #) system which generated this result tra nsmitted reference range : <=0.2. The reference r nabor was not used to int erpret this result as normal/abnormal . [facility] NtwjxogXCLRDMDNCI9524-13-58 11:36:00 Test Item Value Reference Range Interpretation Comments PTT (test code = PTT) 35.1 s 22.9-35.8 [facility] VifxdutGDXSIZMTFQ7769-96-10 11:[facility]:001.09[facility] 11:36:00 Test Item Value Reference Range Interpretation Comments PT (test code = PT) 14.4 s 12.0-14.7 [facility] XlarvprFVGKPBWBZD9022-20-31 11:36:009.3[facility]Y 2015-07-01 11:36:003.21[facility] ObccqrnIHWNEGTOXX1326-69-38 11:36:006.3[facility] BrcriyhNJDLLUIEGO1121-16-89 11:36:0088.4[facility] WswzedtSHBAQZOQIN3102-36-96 11:36:0028.4[facility] FtlrujqKUTMTYIIFY3875-95-54 11:36:97868Uaddbmwp [place] YETOPPDLCE6162-79-42 11:36:0014.9[facility] XdziakjYMLANVIOAZ9980-77-65 11:36:00 32.7[facility] GfdsdgsRIRXMMKCHJ9970-38-33 11:36:00 Test Item Value Reference Range Interpretation Comments MCH (test code = MCH) 28.9 pg 27.0-31.0 [facility] TxijokdDORJBBQFSB9789-56-58 11:36:008.9[facility]annELECTROLYTES 2015-07-01 11:36:85540Pfektbff NaagqnkOUEAOJXIYPIO8338-66-46 11:36:0019[facility] MdnzrulXGYGVZIIBREF4467-23-32 11:36:008.5[facility] GdatmykQUVIIYXQNSLN2733-14-51 11:36:29913Vbwdgjxx QcdcimjLBYYIVNCUNOL8906-51-56 11:36:20711Iyrobelw [place] KIEKQEWWJCVB5710-85-43 11:36:004.6[facility] CqusijuWVAJIBFJOINX8786-75-70 11:36:0050[facility] BnytvnwGVRAGGEJXKSZ8441-84-64 11:36:008.31[facility]ani DYUCEBVEFKCW0685-45-84 11:36:006[facility] NqarvwdUJUCHZXSPPZT9832-27-11 11:36:00 14.6[facility] FagaeveTJSQIDYMAR6703-31-85 11:36:001.2[facility]annHEMATOLOGY 2015-07-01 11:36:001.0[facility] JeebhfsTXGVEGXEWQ0192-59-46 11:36:004.4[facility] KvmabuyQXHXYMECDF4130-47-52 11:36:000.5[facility] WntficyURLYEFSDWF9862-27-95 11:36:000.1[facility] WwxfxbjHWQCRYBCUL7717-16-32 11:36:000.1[facility] IEVOXRKBOB3030-24-58 11:36:008.0[facility] NqzpqdaWELFCHOROZ7970-84-00 11:36:00 19.2[facility] MemuunwGBETFMWBQR0703-23-62 11:36:0069.5[facility]annHEMATOLOGY 2015-07-01 11:36:002.3[facility] JjmlcgtYRWBEQTPPQ2571-10-90 11:36:00 Test Item Value Reference Range Interpretation Comments PTT (test code = PTT) 35.1 s 22.9-35.8 [facility] BqsmagdAUQKZCYRYS0895-26-02 11:36:001.09[facility] 2015-07-01 11:36:00 Test Item Value Reference Range Interpretation Comments PT (test code = PT) 14.4 s 12.0-14.7 [facility] NgpbavsHPIRVBIFHN7032-35-99 11:36:009.3[facility]annHEMATOLOGY 2015-07-01 11:36:003.21[facility] QjhgmpyNQMHAMTKWC3299-51-40 11:36:006.3[facility] HrvbbpiDQQAVTTWPT6615-28-06 11:36:0088.4[facility] UkfcluqWDZGMTDHUZ4908-73-58 11:36:0028.4[facility] QumaiufWBFUIWTAVQ4261-61-41 11:36:05819Tlsirzsm Yovani RGWNFGPIEE9353-27-78 11:36:0014.9[facility] MpdkphrCDJCMDDIBT4558-86-99 11:36:00 32.7[facility] GxzrgpiHCGTVMZJBH7217-37-71 11:36:00 Test Item Value Reference Range Interpretation Comments MCH (test code = MCH) 28.9 pg 27.0-31.0 [facility] IqxopylULRRJRPAFO3079-70-82 11:36:008.9[facility]annELECTROLYTES 2015-07-01 11:36:30907Fiwkytjs QbfrceyZDLRLJASYSVY9729-93-13 11:36:0019[facility] IozteuxMLQHMMHYRRJO5584-56-30 11:36:008.5[facility] UrptrqhJMAWETJDQEXI1687-35-29 11:36:62616Okhsmbzl DmpqyuoIAKERTSFBIYV1709-19-76 11:36:28020Nmvhpvmq Y[facility]ani IMHCLGMEWDOI3701-24-26 11:36:004.6[facility] KihaoliSKJPDFRZXQTA5854-95-90 11:36:0050[facility] PfaxvvxFHYKSFASEQDX2266-07-02 11:36:008.31[facility] GOCSUTQMIUVS8965-67-37 11:36:006[facility] DpsrxwdCPWKGELHTDQE1203-10-45 11:36:00 14.6[facility] WnzfssrZSSRSEOVCJ4982-46-62 11:36:001.2[facility]annHEMATOLOGY 2015-07-01 11:36:001.0[facility] AwbhbkjYFTQVQWQBV7006-22-54 11:36:004.4[facility] QsglexoZYJWJPMUXT2797-99-47 11:36:000.5[facility] EesxlflOXYKVXZJGW7256-28-27 11:36:000.1[facility] YbuebjhXOMYRWVZXL7988-11-72 11:36:000.1[facility] XEQDMMSSWJ4572-24-52 11:36:008.0[facility] HwjbjweZPEMNEGNVB6284-24-19 11:36:00 19.2[facility] YclocvnVMYNMMWVGY6384-67-21 11:36:0069.5[facility] 2015-07-01 11:36:002.3[facility]annCARDIAC HQLOIJX7775-94-41 17:02:00 Test Item Value Reference Range Interpretation Comments Troponin-I (test code 0.10 See_Comment [Auto mated message] The = Troponin-I) system which g enerated this result transmit marsha reference range : <=0.40. The reference r nabor was not used to interpr et this result as charis l/abnormal. [facility] PWSBN6911-36-48 17:02:00 Test Item Value Reference Range Interpretation Comments Lipase Lvl (test code = Lipase Lvl) 314 73-393 [facility]2016-04-06 17:02:00 Test Item Value Reference Range Interpretation Comments B/C Ratio (test code = B/C Ratio) 7 6-25 [facility]2016-04-06 17:02:00 Test Item Value Reference Range Interpretation Comments Globulin (test code = Globulin) 5.4 2.0-4.0 [facility]2016-04-06 17:02:00 Test Item Value Reference Range Interpretation Comments A/G Ratio (test code = A/G Ratio) 0.3 0.7-1.6 [facility]2016-04-06 17:02:00 Test Item Value Reference Range Interpretation Comments AGAP (test code = AGAP) 12.1 10.0-20.0 [facility] GEVYS8587-18-55 17:02:00 Test Item Value Reference Range Interpretation Comments eGFR (test code = eGFR) 7 [facility]2016-04-06 17:02:00 Test Item Value Reference Range Interpretation Comments AST (test code = AST) 45 See_Comment [Auto mated message] The system which ge nerated this result transmit marsha reference range : <=37. The reference range was not used to interpr et this result as charis l/abnormal. [facility]2016-04-06 17:02:00 Test Item Value Reference Range Interpretation Comments Albumin Lvl (test code = Albumin Lvl) 1.8 3.5-5.0 [facility]2016-04-06 17:02:00 Test Item Value Reference Range Interpretation Comments ALT (test code = ALT) 37 See_Comment [Auto mated message] The system which ge nerated this result transmit marsha reference range : <=65. The reference range was not used to interpr et this result as charis l/abnormal. [facility]2016-04-06 17:02:00 Test Item Value Reference Range Interpretation Comments Bili Total (test code = Bili Total) 0.3 0.2-1.3 [facility]2016-04-06 17:02:00 Test Item Value Reference Range Interpretation Comments Alk Phos (test code = Alk Phos) 84 39-136 [facility]2016-04-06 17:02:00 Test Item Value Reference Range Interpretation Comments Total Protein (test code = Total 7.2 6.4-8.4 Protein) [facility]2016-04-06 17:02:00 Test Item Value Reference Range Interpretation Comments Calcium Lvl (test code = Calcium Lvl) 8.4 8.5-10.5 [facility]2016-04-06 17:02:00 Test Item Value Reference Range Interpretation Comments Glucose Lvl (test code = Glucose Lvl) 106 70-99 [facility]2016-04-06 17:02:00 Test Item Value Reference Range Interpretation Comments Potassium Lvl (test code = Potassium 5.1 3.5-5.1 Lvl) [facility]2016-04-06 17:02:00 Test Item Value Reference Range Interpretation Comments Chloride Lvl (test code = Chloride Lvl) 109 95-109 [facility]2016-04-06 17:02:00 Test Item Value Reference Range Interpretation Comments CO2 (test code = CO2) 21 24-32 [facility]2016-04-06 17:02:00 Test Item Value Reference Range Interpretation Comments Sodium Lvl (test code = Sodium Lvl) 137 135-145 [facility]2016-04-06 17:02:00 Test Item Value Reference Range Interpretation Comments Creatinine Lvl (test code = Creatinine 7.50 0.50-1.40 Lvl) [facility]2016-04-06 17:02:00 Test Item Value Reference Range Interpretation Comments BUN (test code = BUN) 52 7-22 [facility] HospitalNciyqczBGESIJCWHR6976-19-43 17:02:00 Test Item Value Reference Range Interpretation Comments Monocytes # (test code 0.4 See_Comment [Aut omated message] The = Monocytes #) system which generated this result tra nsmitted reference range : <=0.8. The reference r nabor was not used to int erpret this result as normal/abnormal . [facility] HospitalCxuavddTUIYKMVILL0742-12-47 17:02:00 Test Item Value Reference Range Interpretation Comments Basophils # (test code 0.0 See_Comment [Aut omated message] The = Basophils #) system which generated this result tra nsmitted reference range : <=0.2. The reference r nabor was not used to int erpret this result as normal/abnormal . [facility] HospitalNaixuvaENYLFLVJKI6231-18-37 17:02:00 Test Item Value Reference Range Interpretation Comments Eosinophils # (test code 0.1 See_Comment [A utomated message] The = Eosinophils #) system whic h generated this result tra nsmitted reference range : <=0.5. The reference r nabor was not used to int erpret this result as normal/abnormal . [facility] HospitalKmvdglrUYNZOPKXWN7737-79-79 17:02:00 Test Item Value Reference Range Interpretation Comments Lymphocytes (test code = Lymphocytes) 27.3 20.0-40.0 [facility] HospitalSpnepkpEDXNROIGNY5092-50-76 17:02:00 Test Item Value Reference Range Interpretation Comments Segs (test code = Segs) 65.3 45.0-75.0 [facility] HospitalUtnkgppFEAWRDWLHZ7854-69-83 17:02:00 Test Item Value Reference Range Interpretation Comments Segs-Bands # (test code = Segs-Bands #) 4.4 1.5-8.1 [facility] HospitalPsjueheUITHVDQJDU2942-21-31 17:02:00 Test Item Value Reference Range Interpretation Comments Basophils (test code = 0.5 See_Comment [Aut omated message] The Basophils) system which ge nerated this result tra nsmitted reference range : <=1.0. The reference r nabor was not used to int erpret this result as normal/abnormal . [facility] HospitalKuvnsmtZFTNQHAMFR7953-11-64 17:02:00 Test Item Value Reference Range Interpretation Comments Eosinophils (test code = 1.3 See_Comment [A utomated message] The Eosinophils) system which ge nerated this result tra nsmitted reference range : <=4.0. The reference r nabor was not used to int erpret this result as normal/abnormal . [facility] HospitalEvalwjvNLDVRTXTIF7870-29-99 17:02:00 Test Item Value Reference Range Interpretation Comments Monocytes (test code = Monocytes) 5.6 2.0-12.0 [facility] HospitalIzhboacLCTUUSXIGS5815-95-32 17:02:00 Test Item Value Reference Range Interpretation Comments Lymphocytes # (test code = Lymphocytes 1.9 1.0-5.5 #) [facility] HospitalJbyreocOMAUPGMQMY4105-09-25 17:02:00 Test Item Value Reference Range Interpretation Comments Hct (test code = Hct) 28.8 36.0-48.0 [facility] HospitalNhiolvqRNMYGALTYY0914-47-59 17:02:00 Test Item Value Reference Range Interpretation Comments Hgb (test code = Hgb) 9.3 12.0-16.0 [facility] HospitalBijfnwnLRZEOLUKPH9274-51-87 17:02:00 Test Item Value Reference Range Interpretation Comments RBC (test code = RBC) 3.24 4.20-5.40 [facility] HospitalSxyaeriEBATOFDMIM8203-65-32 17:02:00 Test Item Value Reference Range Interpretation Comments MCH (test code = MCH) 28.8 pg 27.0-31.0 [facility] HospitalYpvsybdXZYTYPLNKK9201-54-79 17:02:00 Test Item Value Reference Range Interpretation Comments MCV (test code = MCV) 88.8 80.0-98.0 [facility] HospitalAsyazuyYRTPPHGEHQ9386-43-35 17:02:00 Test Item Value Reference Range Interpretation Comments Platelet (test code = Platelet) 235 133-450 [facility] HospitalLlvtvltAYYDTFELSR8806-95-90 17:02:00 Test Item Value Reference Range Interpretation Comments RDW (test code = RDW) 15.2 11.5-14.5 [facility] HospitalCqtkcsnQKYPYXINCJ2804-18-11 17:02:00 Test Item Value Reference Range Interpretation Comments MCHC (test code = MCHC) 32.4 32.0-36.0 [facility] HospitalCqjpvolAJRYHHXLZN0645-00-14 17:02:00 Test Item Value Reference Range Interpretation Comments MPV (test code = MPV) 9.3 7.4-10.4 [facility] HospitalIivdsjnWATRPKBQXQ5909-73-81 17:02:00 Test Item Value Reference Range Interpretation Comments WBC (test code = WBC) 6.8 3.7-10.4 [facility] AND [id number] 17:02:00 Test Item Value Reference Range Interpretation Comments UA Color (test code = Yellow *NA*(06/17/15 UA Color) 12:02 PM) [facility] AND [id number] 17:02:00 Test Item Value Reference Range Interpretation Comments UA Turbidity (test code = Clear (06/17/15 12:02 UA Turbidity) PM) [facility] AND [id number] 17:02:00 Test Item Value Reference Range Interpretation Comments UA Leuk Est (test Negative (06/17/15 12:02 code = UA Leuk Est) PM) [facility] AND [id number] 17:02:00 Test Item Value Reference Range Interpretation Comments UA Urobilinogen (test code = UA 0.2 0.1-1.0 Urobilinogen) [facility] AND [id number] 17:02:00 Test Item Value Reference Range Interpretation Comments UA Blood (test code = Moderate *ABN*(06/17/15 UA Blood) 12:02 PM) [facility] AND [id number] 17:02:00 Test Item Value Reference Range Interpretation Comments UA Nitrite (test code Negative (06/17/15 12:02 = UA Nitrite) PM) [facility] AND [id number] 17:02:00 Test Item Value Reference Range Interpretation Comments UA Bili (test code = Negative *NA*(06/17/15 UA Bili) 12:02 PM) [facility] AND [id number] 17:02:00 Test Item Value Reference Range Interpretation Comments UA Glucose (test code = UA Glucose) 250 mg/dL [facility] AND [id number] 17:02:00 Test Item Value Reference Range Interpretation Comments UA Protein (test code = UA >=300 mg/dL Protein) [facility] [id number] 17:02:00 Test Item Value Reference Range Interpretation Comments UA Ketones (test code Negative *NA*(06/17/15 = UA Ketones) 12:02 PM) [facility] [id number] 17:02:00 Test Item Value Reference Range Interpretation Comments UA pH (test code = UA pH) 6.5 1 5.0-8.0 [facility] [id number] 17:02:00 Test Item Value Reference Range Interpretation Comments UA Spec Grav (test code = UA Spec 1.020 1 Grav) [facility] AND [id number] 17:02:00 Test Item Value Reference Range Interpretation Comments UA Mucus (test code = UA Mucus) Few /LPF [facility] [id number] 17:02:00 Test Item Value Reference Range Interpretation Comments UA Sq Epi (test code = UA Sq Epi) Few /LPF [facility] AND [id number] 17:02:00 Test Item Value Reference Range Interpretation Comments UA RBC (test code 11-20 /HPF See_Comment [Automate d message] The = UA RBC) system which ge nerated this result tra nsmitted reference range : <=2. The reference range was not used to interpr et this result as normal/abnormal . [facility] AND [id number] 17:02:00 Test Item Value Reference Range Interpretation Comments UA WBC (test code = UA WBC) 6-10 /HPF [facility] AND [id number] 17:02:00 Test Item Value Reference Range Interpretation Comments UA Bacteria (test code = UA Few /HPF Bacteria) [facility] [id number] 17:02:00 Test Item Value Reference Range Interpretation Comments U Preg (test code = U Negative (06/17/15 12:02 Preg) PM) [facility] AND [id number] 17:02:00 Test Item Value Reference Range Interpretation Comments UA pH (test code = UA pH) 6.5 1 5.0-8.0 [facility] AND [id number] 17:02:00 Test Item Value Reference Range Interpretation Comments UA Spec Grav (test code = UA Spec 1.020 1 Grav) [facility] [id number] 17:02:00 Test Item Value Reference Range Interpretation Comments UA Mucus (test code = UA Mucus) Few /LPF [facility] [id number] 17:02:00 Test Item Value Reference Range Interpretation Comments UA Sq Epi (test code = UA Sq Epi) Few /LPF [facility] [id number] 17:02:00 Test Item Value Reference Range Interpretation Comments UA RBC (test code 11-20 /HPF See_Comment [Automate d message] The = UA RBC) system which ge nerated this result tra nsmitted reference range : <=2. The reference range was not used to interpr et this result as normal/abnormal . [facility] [id number] 17:02:00 Test Item Value Reference Range Interpretation Comments UA WBC (test code = UA WBC) 6-10 /HPF [facility] [id number] 17:02:00 Test Item Value Reference Range Interpretation Comments UA Bacteria (test code = UA Few /HPF Bacteria) [facility] [id number] 17:02:00 Test Item Value Reference Range Interpretation Comments U Preg (test code = U Negative (06/17/15 12:02 Preg) PM) [facility] [id number] 17:02:00 Test Item Value Reference Range Interpretation Comments Troponin-I (test code 0.10 See_Comment [Auto mated message] The = Troponin-I) system which g enerated this result transmit marsha reference range : <=0.40. The reference r nabor was not used to interpr et this result as charis l/abnormal. [facility] [id number] 17:02:00 Test Item Value Reference Range Interpretation Comments Lipase Lvl (test code = Lipase Lvl) 314 73-393 [facility] Owned [facility] [id number] 17:02:00 Test Item Value Reference Range Interpretation Comments B/C Ratio (test code = B/C Ratio) 7 6-25 [facility] [id number] 17:02:00 Test Item Value Reference Range Interpretation Comments Globulin (test code = Globulin) 5.4 2.0-4.0 [facility] [id number] 17:02:00 Test Item Value Reference Range Interpretation Comments A/G Ratio (test code = A/G Ratio) 0.3 0.7-1.6 [facility]2016-04-06 17:02:00 Test Item Value Reference Range Interpretation Comments AGAP (test code = AGAP) 12.1 10.0-20.0 [place] [id number] 17:02:00 Test Item Value Reference Range Interpretation Comments eGFR (test code = eGFR) 7 [facility]2016-04-06 17:02:00 Test Item Value Reference Range Interpretation Comments AST (test code = AST) 45 See_Comment [Auto mated message] The system which ge nerated this result transmit marsha reference range : <=37. The reference range was not used to interpr et this result as charis l/abnormal. [facility]2016-04-06 17:02:00 Test Item Value Reference Range Interpretation Comments Albumin Lvl (test code = Albumin Lvl) 1.8 3.5-5.0 [facility]2016-04-06 17:02:00 Test Item Value Reference Range Interpretation Comments ALT (test code = ALT) 37 See_Comment [Auto mated message] The system which ge nerated this result transmit marsha reference range : <=65. The reference range was not used to interpr et this result as charis l/abnormal. [facility]2016-04-06 17:02:00 Test Item Value Reference Range Interpretation Comments Bili Total (test code = Bili Total) 0.3 0.2-1.3 [facility]2016-04-06 17:02:00 Test Item Value Reference Range Interpretation Comments Alk Phos (test code = Alk Phos) 84 39-136 [facility]2016-04-06 17:02:00 Test Item Value Reference Range Interpretation Comments Total Protein (test code = Total 7.2 6.4-8.4 Protein) [facility]2016-04-06 17:02:00 Test Item Value Reference Range Interpretation Comments Calcium Lvl (test code = Calcium Lvl) 8.4 8.5-10.5 [facility]2016-04-06 17:02:00 Test Item Value Reference Range Interpretation Comments Glucose Lvl (test code = Glucose Lvl) 106 70-99 [facility]2016-04-06 17:02:00 Test Item Value Reference Range Interpretation Comments Potassium Lvl (test code = Potassium 5.1 3.5-5.1 Lvl) [facility]2016-04-06 17:02:00 Test Item Value Reference Range Interpretation Comments Chloride Lvl (test code = Chloride Lvl) 109 95-109 [facility]2016-04-06 17:02:00 Test Item Value Reference Range Interpretation Comments CO2 (test code = CO2) 21 24-32 [facility]2016-04-06 17:02:00 Test Item Value Reference Range Interpretation Comments Sodium Lvl (test code = Sodium Lvl) 137 135-145 [place] [id number] 17:02:00 Test Item Value Reference Range Interpretation Comments Creatinine Lvl (test code = Creatinine 7.50 0.50-1.40 Lvl) [facility]2016-04-06 17:02:00 Test Item Value Reference Range Interpretation Comments BUN (test code = BUN) 52 7-22 [facility]LcwjlfxIEXSOHROPM5076-21-11 17:02:00 Test Item Value Reference Range Interpretation Comments Monocytes # (test code 0.4 See_Comment [Aut omated message] The = Monocytes #) system which generated this result tra nsmitted reference range : <=0.8. The reference r nabor was not used to int erpret this result as normal/abnormal . [facility] H[id number] 17:02:00 Test Item Value Reference Range Interpretation Comments Basophils # (test code 0.0 See_Comment [Aut omated message] The = Basophils #) system which generated this result tra nsmitted reference range : <=0.2. The reference r nabor was not used to int erpret this result as normal/abnormal . [facility] HospitalYjgizrsGZQPVLMCHT1756-49-80 17:02:00 Test Item Value Reference Range Interpretation Comments Eosinophils # (test code 0.1 See_Comment [A utomated message] The = Eosinophils #) system whic h generated this result tra nsmitted reference range : <=0.5. The reference r nabor was not used to int erpret this result as normal/abnormal . [facility] HospitalXbienfzCVBSIKWMPJ9404-31-16 17:02:00 Test Item Value Reference Range Interpretation Comments Lymphocytes (test code = Lymphocytes) 27.3 20.0-40.0 [facility] HospitalDxygsorOGCKEICNJM2678-49-31 17:02:00 Test Item Value Reference Range Interpretation Comments Segs (test code = Segs) 65.3 45.0-75.0 [facility] HospitalMxqbtahEBKRTEJOUS4954-31-66 17:02:00 Test Item Value Reference Range Interpretation Comments Segs-Bands # (test code = Segs-Bands #) 4.4 1.5-8.1 [facility] HospitalWnhzzwkWYXKUHOJMZ7067-45-42 17:02:00 Test Item Value Reference Range Interpretation Comments Basophils (test code = 0.5 See_Comment [Aut omated message] The Basophils) system which ge nerated this result tra nsmitted reference range : <=1.0. The reference r nabor was not used to int erpret this result as normal/abnormal . [facility] HospitalCeedaqbFORDRRCBWG6358-25-26 17:02:00 Test Item Value Reference Range Interpretation Comments Eosinophils (test code = 1.3 See_Comment [A utomated message] The Eosinophils) system which ge nerated this result tra nsmitted reference range : <=4.0. The reference r nabor was not used to int erpret this result as normal/abnormal . [facility] HospitalPjykfowVGLOWEDYEB4454-07-97 17:02:00 Test Item Value Reference Range Interpretation Comments Monocytes (test code = Monocytes) 5.6 2.0-12.0 [facility] HospitalBlimkueVCXKUFOVVX6686-92-73 17:02:00 Test Item Value Reference Range Interpretation Comments Lymphocytes # (test code = Lymphocytes 1.9 1.0-5.5 #) [facility] HospitalWhsoelnMHMVBBYJLF9537-51-09 17:02:00 Test Item Value Reference Range Interpretation Comments Hct (test code = Hct) 28.8 36.0-48.0 [facility] HospitalLxjajrcJIMNUHBVSB8202-69-00 17:02:00 Test Item Value Reference Range Interpretation Comments Hgb (test code = Hgb) 9.3 12.0-16.0 [facility] HospitalKdaedidIFBBMSWUCS1941-17-08 17:02:00 Test Item Value Reference Range Interpretation Comments RBC (test code = RBC) 3.24 4.20-5.40 [facility] HospitalFyeqwliPJUITZBAWA2953-08-49 17:02:00 Test Item Value Reference Range Interpretation Comments MCH (test code = MCH) 28.8 pg 27.0-31.0 [facility] HospitalFutwwwoFWVXIOKYWI1051-83-76 17:02:00 Test Item Value Reference Range Interpretation Comments MCV (test code = MCV) 88.8 80.0-98.0 [facility] HospitalYercotfEOSZUBYNDY9271-33-64 17:02:00 Test Item Value Reference Range Interpretation Comments Platelet (test code = Platelet) 235 133-450 [facility] HospitalDuzuhshRPQDKEKAHG6640-10-18 17:02:00 Test Item Value Reference Range Interpretation Comments RDW (test code = RDW) 15.2 11.5-14.5 [facility] HospitalFsbpdoyJLBDMGRVZZ3727-00-20 17:02:00 Test Item Value Reference Range Interpretation Comments MCHC (test code = MCHC) 32.4 32.0-36.0 [facility] HospitalWtxcyphMCWUBTFOFG5030-09-09 17:02:00 Test Item Value Reference Range Interpretation Comments MPV (test code = MPV) 9.3 7.4-10.4 [facility] HospitalQlanjaxKIGVDISMQX7390-65-55 17:02:00 Test Item Value Reference Range Interpretation Comments WBC (test code = WBC) 6.8 3.7-10.4 [facility] AND [id number] 17:02:00 Test Item Value Reference Range Interpretation Comments UA Color (test code = Yellow *NA*(06/17/15 UA Color) 12:02 PM) [facility] AND [id number] 17:02:00 Test Item Value Reference Range Interpretation Comments UA Turbidity (test code = Clear (06/17/15 12:02 UA Turbidity) PM) [facility] AND [id number] 17:02:00 Test Item Value Reference Range Interpretation Comments UA Leuk Est (test Negative (06/17/15 12:02 code = UA Leuk Est) PM) [facility] AND [id number] 17:02:00 Test Item Value Reference Range Interpretation Comments UA Urobilinogen (test code = UA 0.2 0.1-1.0 Urobilinogen) [facility] AND [id number] 17:02:00 Test Item Value Reference Range Interpretation Comments UA Blood (test code = Moderate *ABN*(06/17/15 UA Blood) 12:02 PM) [facility] AND [id number] 17:02:00 Test Item Value Reference Range Interpretation Comments UA Nitrite (test code Negative (06/17/15 12:02 = UA Nitrite) PM) [facility] AND [id number] 17:02:00 Test Item Value Reference Range Interpretation Comments UA Bili (test code = Negative *NA*(06/17/15 UA Bili) 12:02 PM) [facility] AND [id number] 17:02:00 Test Item Value Reference Range Interpretation Comments UA Glucose (test code = UA Glucose) 250 mg/dL [facility] AND [id number] 17:02:00 Test Item Value Reference Range Interpretation Comments UA Protein (test code = UA >=300 mg/dL Protein) [facility] AND [id number] 17:02:00 Test Item Value Reference Range Interpretation Comments UA Ketones (test code Negative *NA*(06/17/15 = UA Ketones) 12:02 PM) [facility] AND [id number] 17:02:00 Test Item Value Reference Range Interpretation Comments UA pH (test code = UA pH) 6.5 1 5.0-8.0 [facility] AND [id number] 17:02:00 Test Item Value Reference Range Interpretation Comments UA Spec Grav (test code = UA Spec 1.020 1 Grav) [facility] AND [id number] 17:02:00 Test Item Value Reference Range Interpretation Comments UA Mucus (test code = UA Mucus) Few /LPF [facility] AND [id number] 17:02:00 Test Item Value Reference Range Interpretation Comments UA Sq Epi (test code = UA Sq Epi) Few /LPF [facility] AND [id number] 17:02:00 Test Item Value Reference Range Interpretation Comments UA RBC (test code 11-20 /HPF See_Comment [Automate d message] The = UA RBC) system which ge nerated this result tra nsmitted reference range : <=2. The reference range was not used to interpr et this result as normal/abnormal . [facility] AND [id number] 17:02:00 Test Item Value Reference Range Interpretation Comments UA WBC (test code = UA WBC) 6-10 /HPF [facility] AND [id number] 17:02:00 Test Item Value Reference Range Interpretation Comments UA Bacteria (test code = UA Few /HPF Bacteria) [facility] [id number] 17:02:00 Test Item Value Reference Range Interpretation Comments U Preg (test code = U Negative (06/17/15 12:02 Preg) PM) [facility] [id number] 17:02:00 Test Item Value Reference Range Interpretation Comments Troponin-I (test code 0.10 See_Comment [Auto mated message] The = Troponin-I) system which g enerated this result transmit marsha reference range : <=0.40. The reference r nabor was not used to interpr et this result as charis l/abnormal. [facility] [id number] 17:02:00 Test Item Value Reference Range Interpretation Comments Lipase Lvl (test code = Lipase Lvl) 314 73-393 [facility] [id number] 17:02:00 Test Item Value Reference Range Interpretation Comments B/C Ratio (test code = B/C Ratio) 7 6-25 [facility] [id number] 17:02:00 Test Item Value Reference Range Interpretation Comments Globulin (test code = Globulin) 5.4 2.0-4.0 [facility] [id number] 17:02:00 Test Item Value Reference Range Interpretation Comments A/G Ratio (test code = A/G Ratio) 0.3 0.7-1.6 [facility] [id number] 17:02:00 Test Item Value Reference Range Interpretation Comments AGAP (test code = AGAP) 12.1 10.0-20.0 [facility] [id number] 17:02:00 Test Item Value Reference Range Interpretation Comments eGFR (test code = eGFR) 7 [facility] [id number] 17:02:00 Test Item Value Reference Range Interpretation Comments AST (test code = AST) 45 See_Comment [Auto mated message] The system which ge nerated this result transmit marsha reference range : <=37. The reference range was not used to interpr et this result as charis l/abnormal. [facility] [id number] 17:02:00 Test Item Value Reference Range Interpretation Comments Albumin Lvl (test code = Albumin Lvl) 1.8 3.5-5.0 [facility]2016-04-06 17:02:00 Test Item Value Reference Range Interpretation Comments ALT (test code = ALT) 37 See_Comment [Auto mated message] The system which ge nerated this result transmit marsha reference range : <=65. The reference range was not used to interpr et this result as charis l/abnormal. [facility]2016-04-06 17:02:00 Test Item Value Reference Range Interpretation Comments Bili Total (test code = Bili Total) 0.3 0.2-1.3 [facility]2016-04-06 17:02:00 Test Item Value Reference Range Interpretation Comments Alk Phos (test code = Alk Phos) 84 39-136 [facility]2016-04-06 17:02:00 Test Item Value Reference Range Interpretation Comments Total Protein (test code = Total 7.2 6.4-8.4 Protein) [facility]2016-04-06 17:02:00 Test Item Value Reference Range Interpretation Comments Calcium Lvl (test code = Calcium Lvl) 8.4 8.5-10.5 [facility]2016-04-06 17:02:00 Test Item Value Reference Range Interpretation Comments Glucose Lvl (test code = Glucose Lvl) 106 70-99 [facility]2016-04-06 17:02:00 Test Item Value Reference Range Interpretation Comments Potassium Lvl (test code = Potassium 5.1 3.5-5.1 Lvl) [facility]2016-04-06 17:02:00 Test Item Value Reference Range Interpretation Comments Chloride Lvl (test code = Chloride Lvl) 109 95-109 [facility]2016-04-06 17:02:00 Test Item Value Reference Range Interpretation Comments CO2 (test code = CO2) 21 24-32 [facility]2016-04-06 17:02:00 Test Item Value Reference Range Interpretation Comments Sodium Lvl (test code = Sodium Lvl) 137 135-145 [facility]2016-04-06 17:02:00 Test Item Value Reference Range Interpretation Comments Creatinine Lvl (test code = Creatinine 7.50 0.50-1.40 Lvl) [facility]2016-04-06 17:02:00 Test Item Value Reference Range Interpretation Comments BUN (test code = BUN) 52 7-22 [facility] HospitalCqepostVBBLERFGEY2831-55-18 17:02:00 Test Item Value Reference Range Interpretation Comments Monocytes # (test code 0.4 See_Comment [Aut omated message] The = Monocytes #) system which generated this result tra nsmitted reference range : <=0.8. The reference r nabor was not used to int erpret this result as normal/abnormal . [facility] Hos[id number] 17:02:00 Test Item Value Reference Range Interpretation Comments Basophils # (test code 0.0 See_Comment [Aut omated message] The = Basophils #) system which generated this result tra nsmitted reference range : <=0.2. The reference r nabor was not used to int erpret this result as normal/abnormal . [facility] HospitalNplzshzBTNUWSUMBZ0190-82-00 17:02:00 Test Item Value Reference Range Interpretation Comments Eosinophils # (test code 0.1 See_Comment [A utomated message] The = Eosinophils #) system whic h generated this result tra nsmitted reference range : <=0.5. The reference r nabor was not used to int erpret this result as normal/abnormal . [facility] H[id number] 17:02:00 Test Item Value Reference Range Interpretation Comments Lymphocytes (test code = Lymphocytes) 27.3 20.0-40.0 [facility] HospitalVwnnegvNZFKTKUFMI5646-87-22 17:02:00 Test Item Value Reference Range Interpretation Comments Segs (test code = Segs) 65.3 45.0-75.0 [facility] HospitalLwfbddwWRKTKFKEXS8120-82-14 17:02:00 Test Item Value Reference Range Interpretation Comments Segs-Bands # (test code = Segs-Bands #) 4.4 1.5-8.1 [facility] HospitalVbjcnzwIIPLOQFZRL4917-49-15 17:02:00 Test Item Value Reference Range Interpretation Comments Basophils (test code = 0.5 See_Comment [Aut omated message] The Basophils) system which ge nerated this result tra nsmitted reference range : <=1.0. The reference r nabor was not used to int erpret this result as normal/abnormal . [facility] HospitalRongmjuOKEWNFNQBG9450-39-79 17:02:00 Test Item Value Reference Range Interpretation Comments Eosinophils (test code = 1.3 See_Comment [A utomated message] The Eosinophils) system which ge nerated this result tra nsmitted reference range : <=4.0. The reference r nabor was not used to int erpret this result as normal/abnormal . [facility] Hos[id number] 17:02:00 Test Item Value Reference Range Interpretation Comments Monocytes (test code = Monocytes) 5.6 2.0-12.0 [facility] H[id number] 17:02:00 Test Item Value Reference Range Interpretation Comments Lymphocytes # (test code = Lymphocytes 1.9 1.0-5.5 #) [facility] HospitalEzwazslTGRDBFNXLO4145-87-99 17:02:00 Test Item Value Reference Range Interpretation Comments Hct (test code = Hct) 28.8 36.0-48.0 [facility] HospitalEdqmkgdPIOSURVJVP5515-21-71 17:02:00 Test Item Value Reference Range Interpretation Comments Hgb (test code = Hgb) 9.3 12.0-16.0 [facility] HospitalAersdsjSSAMDKWJQB6419-05-36 17:02:00 Test Item Value Reference Range Interpretation Comments RBC (test code = RBC) 3.24 4.20-5.40 [facility] Hospit[id number] 17:02:00 Test Item Value Reference Range Interpretation Comments MCH (test code = MCH) 28.8 pg 27.0-31.0 [facility] HospitalLxrusxnVPSHAJBQZP2971-56-86 17:02:00 Test Item Value Reference Range Interpretation Comments MCV (test code = MCV) 88.8 80.0-98.0 [facility] HospitalEndkpepWOQEQWWLAH9478-69-42 17:02:00 Test Item Value Reference Range Interpretation Comments Platelet (test code = Platelet) 235 133-450 [facility] HospitalYsuhrswWQNJFMZIUI4076-11-04 17:02:00 Test Item Value Reference Range Interpretation Comments RDW (test code = RDW) 15.2 11.5-14.5 [facility] HospitalClcxehaEYGPQNDVQV7948-05-55 17:02:00 Test Item Value Reference Range Interpretation Comments MCHC (test code = MCHC) 32.4 32.0-36.0 [facility] HospitalSvahqcfQKJZNWXLAC1915-92-92 17:02:00 Test Item Value Reference Range Interpretation Comments MPV (test code = MPV) 9.3 7.4-10.4 [facility]RtqiacsMNESFLKDMG8413-65-52 17:02:00 Test Item Value Reference Range Interpretation Comments WBC (test code = WBC) 6.8 3.7-10.4 [facility] AND [id number] 17:02:00 Test Item Value Reference Range Interpretation Comments UA Color (test code = Yellow *NA*(06/17/15 UA Color) 12:02 PM) [facility] AND [id number] 17:02:00 Test Item Value Reference Range Interpretation Comments UA Turbidity (test code = Clear (06/17/15 12:02 UA Turbidity) PM) [facility] AND [id number] 17:02:00 Test Item Value Reference Range Interpretation Comments UA Leuk Est (test Negative (06/17/15 12:02 code = UA Leuk Est) PM) [facility] AND [id number] 17:02:00 Test Item Value Reference Range Interpretation Comments UA Urobilinogen (test code = UA 0.2 0.1-1.0 Urobilinogen) [facility] AND [id number] 17:02:00 Test Item Value Reference Range Interpretation Comments UA Blood (test code = Moderate *ABN*(06/17/15 UA Blood) 12:02 PM) [facility] AND [id number] 17:02:00 Test Item Value Reference Range Interpretation Comments UA Nitrite (test code Negative (06/17/15 12:02 = UA Nitrite) PM) [facility] AND [id number] 17:02:00 Test Item Value Reference Range Interpretation Comments UA Bili (test code = Negative *NA*(06/17/15 UA Bili) 12:02 PM) [facility] AND [id number] 17:02:00 Test Item Value Reference Range Interpretation Comments UA Glucose (test code = UA Glucose) 250 mg/dL [facility] AND [id number] 17:02:00 Test Item Value Reference Range Interpretation Comments UA Protein (test code = UA >=300 mg/dL Protein) [facility] AND [id number] 17:02:00 Test Item Value Reference Range Interpretation Comments UA Ketones (test code Negative *NA*(06/17/15 = UA Ketones) 12:02 PM) [facility] AND [id number] 17:02:00 Test Item Value Reference Range Interpretation Comments UA pH (test code = UA pH) 6.5 1 5.0-8.0 [facility] AND [id number] 17:02:00 Test Item Value Reference Range Interpretation Comments UA Spec Grav (test code = UA Spec 1.020 1 Grav) [facility] AND [id number] 17:02:00 Test Item Value Reference Range Interpretation Comments UA Mucus (test code = UA Mucus) Few /LPF [facility] AND [id number] 17:02:00 Test Item Value Reference Range Interpretation Comments UA Sq Epi (test code = UA Sq Epi) Few /LPF [facility] AND [id number] 17:02:00 Test Item Value Reference Range Interpretation Comments UA RBC (test code 11-20 /HPF See_Comment [Automate d message] The = UA RBC) system which ge nerated this result tra nsmitted reference range : <=2. The reference range was not used to interpr et this result as normal/abnormal . [facility] AND [id number] 17:02:00 Test Item Value Reference Range Interpretation Comments UA WBC (test code = UA WBC) 6-10 /HPF [facility] AND [id number] 17:02:00 Test Item Value Reference Range Interpretation Comments UA Bacteria (test code = UA Few /HPF Bacteria) [facility] [id number] 17:02:00 Test Item Value Reference Range Interpretation Comments U Preg (test code = U Negative (06/17/15 12:02 Preg) PM) [facility] [id number] 17:02:00 Test Item Value Reference Range Interpretation Comments Troponin-I (test code 0.10 See_Comment [Auto mated message] The = Troponin-I) system which g enerated this result transmit marsha reference range : <=0.40. The reference r nabor was not used to interpr et this result as charis l/abnormal. [facility]CHE[facility] [id number] 17:02:00 Test Item Value Reference Range Interpretation Comments Lipase Lvl (test code = Lipase Lvl) 314 73-393 [facility]aCHEM [id number] 17:02:00 Test Item Value Reference Range Interpretation Comments B/C Ratio (test code = B/C Ratio) 7 6-25 [facility]2016-04-06 17:02:00 Test Item Value Reference Range Interpretation Comments Globulin (test code = Globulin) 5.4 2.0-4.0 [facility]2016-04-06 17:02:00 Test Item Value Reference Range Interpretation Comments A/G Ratio (test code = A/G Ratio) 0.3 0.7-1.6 [facility]2016-04-06 17:02:00 Test Item Value Reference Range Interpretation Comments AGAP (test code = AGAP) 12.1 10.0-20.0 [facility]2016-04-06 17:02:00 Test Item Value Reference Range Interpretation Comments eGFR (test code = eGFR) 7 [facility]2016-04-06 17:02:00 Test Item Value Reference Range Interpretation Comments AST (test code = AST) 45 See_Comment [Auto mated message] The system which ge nerated this result transmit marsha reference range : <=37. The reference range was not used to interpr et this result as charis l/abnormal. [facility]2016-04-06 17:02:00 Test Item Value Reference Range Interpretation Comments Albumin Lvl (test code = Albumin Lvl) 1.8 3.5-5.0 [facility]2016-04-06 17:02:00 Test Item Value Reference Range Interpretation Comments ALT (test code = ALT) 37 See_Comment [Auto mated message] The system which ge nerated this result transmit marsha reference range : <=65. The reference range was not used to interpr et this result as charis l/abnormal. [facility]2016-04-06 17:02:00 Test Item Value Reference Range Interpretation Comments Bili Total (test code = Bili Total) 0.3 0.2-1.3 [facility]2016-04-06 17:02:00 Test Item Value Reference Range Interpretation Comments Alk Phos (test code = Alk Phos) 84 39-136 [facility]2016-04-06 17:02:00 Test Item Value Reference Range Interpretation Comments Total Protein (test code = Total 7.2 6.4-8.4 Protein) [facility]2016-04-06 17:02:00 Test Item Value Reference Range Interpretation Comments Calcium Lvl (test code = Calcium Lvl) 8.4 8.5-10.5 [facility] [facility]00 Test Item Value Reference Range Interpretation Comments Glucose Lvl (test code = Glucose Lvl) 106 70-99 [facility]2016-[facility] 17:02:00 Test Item Value Reference Range Interpretation Comments Potassium Lvl (test code = Potassium 5.1 3.5-5.1 Lvl) [place] [id number] 17:02:00 Test Item Value Reference Range Interpretation Comments Chloride Lvl (test code = Chloride Lvl) 109 95-109 [place] [id number] 17:02:00 Test Item Value Reference Range Interpretation Comments CO2 (test code = CO2) 21 24-32 [place] [id number] 17:02:00 Test Item Value Reference Range Interpretation Comments Sodium Lvl (test code = Sodium Lvl) 137 135-145 [place] 739236-04-06 17:02:00 Test Item Value Reference Range Interpretation Comments Creatinine Lvl (test code = Creatinine 7.50 0.50-1.40 Lvl) [facility]2016-[facility]-06 17:02:00 Test Item Value Reference Range Interpretation Comments BUN (test code = BUN) 52 7-22 [facility] HospitalSuqhvalZEIARABNJQ7557-07-78 17:02:00 Test Item Value Reference Range Interpretation Comments Monocytes # (test code 0.4 See_Comment [Aut omated message] The = Monocytes #) system which generated this result tra nsmitted reference range : <=0.8. The reference r nabor was not used to int erpret this result as normal/abnormal . [facility] H[id number] 17:02:00 Test Item Value Reference Range Interpretation Comments Basophils # (test code 0.0 See_Comment [Aut omated message] The = Basophils #) system which generated this result tra nsmitted reference range : <=0.2. The reference r nabor was not used to int erpret this result as normal/abnormal . [facility] HospitalZcrqezbGQFRVVUIFA2024-03-14 17:02:00 Test Item Value Reference Range Interpretation Comments Eosinophils # (test code 0.1 See_Comment [A utomated message] The = Eosinophils #) system whic h generated this result tra nsmitted reference range : <=0.5. The reference r nabor was not used to int erpret this result as normal/abnormal . [facility] HospitalBuhckjkZBETTOBZXC7814-62-61 17:02:00 Test Item Value Reference Range Interpretation Comments Lymphocytes (test code = Lymphocytes) 27.3 20.0-40.0 [facility] HospitalNhuubutPKOFYZBPHV8306-91-19 17:02:00 Test Item Value Reference Range Interpretation Comments Segs (test code = Segs) 65.3 45.0-75.0 [facility] HospitalEppwdotPUVGWRSHIX2862-50-48 17:02:00 Test Item Value Reference Range Interpretation Comments Segs-Bands # (test code = Segs-Bands #) 4.4 1.5-8.1 [facility] HospitalNedhxvnVYKVDOBMRA4124-49-81 17:02:00 Test Item Value Reference Range Interpretation Comments Basophils (test code = 0.5 See_Comment [Aut omated message] The Basophils) system which ge nerated this result tra nsmitted reference range : <=1.0. The reference r nabor was not used to int erpret this result as normal/abnormal . [facility] HospitalDqqovwaUVUDESWUKI6720-66-04 17:02:00 Test Item Value Reference Range Interpretation Comments Eosinophils (test code = 1.3 See_Comment [A utomated message] The Eosinophils) system which ge nerated this result tra nsmitted reference range : <=4.0. The reference r nabor was not used to int erpret this result as normal/abnormal . [facility] HospitalOrszegmLHJWNFPPPH9193-20-39 17:02:00 Test Item Value Reference Range Interpretation Comments Monocytes (test code = Monocytes) 5.6 2.0-12.0 [facility] HospitalRkbqksiAYZYPNWNOT0896-94-71 17:02:00 Test Item Value Reference Range Interpretation Comments Lymphocytes # (test code = Lymphocytes 1.9 1.0-5.5 #) [facility] HospitalSjdfkabXWARBUVMKX5785-18-83 17:02:00 Test Item Value Reference Range Interpretation Comments Hct (test code = Hct) 28.8 36.0-48.0 [facility] HospitalKwcmtoqZNRQZUGYCM4161-73-64 17:02:00 Test Item Value Reference Range Interpretation Comments Hgb (test code = Hgb) 9.3 12.0-16.0 [facility] HospitalLmuearoMULFPYDEBF5500-64-38 17:02:00 Test Item Value Reference Range Interpretation Comments RBC (test code = RBC) 3.24 4.20-5.40 [facility] HospitalLfqtzucPZBVFLHHPA2361-60-26 17:02:00 Test Item Value Reference Range Interpretation Comments MCH (test code = MCH) 28.8 pg 27.0-31.0 [facility] HospitalKzoysfuSEFYCEASTI2855-55-80 17:02:00 Test Item Value Reference Range Interpretation Comments MCV (test code = MCV) 88.8 80.0-98.0 [facility] HospitalQwkxcfxLHXDOVPUPW1846-87-14 17:02:00 Test Item Value Reference Range Interpretation Comments Platelet (test code = Platelet) 235 133-450 [facility] HospitalSppvmryNAYFRFDTMW7549-45-11 17:02:00 Test Item Value Reference Range Interpretation Comments RDW (test code = RDW) 15.2 11.5-14.5 [facility] HospitalSqxgqsfQKJTLNMZTT4606-07-77 17:02:00 Test Item Value Reference Range Interpretation Comments MCHC (test code = MCHC) 32.4 32.0-36.0 [facility] HospitalHcjnkeeAUPNFHKHUL1396-39-99 17:02:00 Test Item Value Reference Range Interpretation Comments MPV (test code = MPV) 9.3 7.4-10.4 [facility] HospitalGuatvgtIUBTZFSKET4311-64-91 17:02:00 Test Item Value Reference Range Interpretation Comments WBC (test code = WBC) 6.8 3.7-10.4 [facility] AND [id number] 17:02:00 Test Item Value Reference Range Interpretation Comments UA Color (test code = Yellow *NA*(06/17/15 UA Color) 12:02 PM) [facility] AND [id number] 17:02:00 Test Item Value Reference Range Interpretation Comments UA Turbidity (test code = Clear (06/17/15 12:02 UA Turbidity) PM) [facility] AND [id number] 17:02:00 Test Item Value Reference Range Interpretation Comments UA Leuk Est (test Negative (06/17/15 12:02 code = UA Leuk Est) PM) [facility] AND [id number] 17:02:00 Test Item Value Reference Range Interpretation Comments UA Urobilinogen (test code = UA 0.2 0.1-1.0 Urobilinogen) [facility] AND [id number] 17:02:00 Test Item Value Reference Range Interpretation Comments UA Blood (test code = Moderate *ABN*(06/17/15 UA Blood) 12:02 PM) [facility] AND [id number] 17:02:00 Test Item Value Reference Range Interpretation Comments UA Nitrite (test code Negative (06/17/15 12:02 = UA Nitrite) PM) [facility] AND [id number] 17:02:00 Test Item Value Reference Range Interpretation Comments UA Bili (test code = Negative *NA*(06/17/15 UA Bili) 12:02 PM) [facility] AND [id number] 17:02:00 Test Item Value Reference Range Interpretation Comments UA Glucose (test code = UA Glucose) 250 mg/dL [facility] AND [id number] 17:02:00 Test Item Value Reference Range Interpretation Comments UA Protein (test code = UA >=300 mg/dL Protein) [facility] AND [id number] 17:02:00 Test Item Value Reference Range Interpretation Comments UA Ketones (test code Negative *NA*(06/17/15 = UA Ketones) 12:02 PM) [facility] AND [id number] 17:02:00 Test Item Value Reference Range Interpretation Comments UA pH (test code = UA pH) 6.5 1 5.0-8.0 [facility] AND [id number] 17:02:00 Test Item Value Reference Range Interpretation Comments UA Spec Grav (test code = UA Spec 1.020 1 Grav) [facility] AND [id number] 17:02:00 Test Item Value Reference Range Interpretation Comments UA Mucus (test code = UA Mucus) Few /LPF [facility] AND [id number] 17:02:00 Test Item Value Reference Range Interpretation Comments UA Sq Epi (test code = UA Sq Epi) Few /LPF [facility] AND [id number] 17:02:00 Test Item Value Reference Range Interpretation Comments UA RBC (test code 11-20 /HPF See_Comment [Automate d message] The = UA RBC) system which ge nerated this result tra nsmitted reference range : <=2. The reference range was not used to interpr et this result as normal/abnormal . [facility] [id number] 17:02:00 Test Item Value Reference Range Interpretation Comments UA WBC (test code = UA WBC) 6-10 /HPF [facility] [id number] 17:02:00 Test Item Value Reference Range Interpretation Comments UA Bacteria (test code = UA Few /HPF Bacteria) [facility] [id number] 17:02:00 Test Item Value Reference Range Interpretation Comments U Preg (test code = U Negative (06/17/15 12:02 Preg) PM) [facility] [id number] 17:02:00 Test Item Value Reference Range Interpretation Comments Troponin-I (test code 0.10 See_Comment [Auto mated message] The = Troponin-I) system which g enerated this result transmit marsha reference range : <=0.40. The reference r nabor was not used to interpr et this result as charis l/abnormal. [facility] [id number] 17:02:00 Test Item Value Reference Range Interpretation Comments Lipase Lvl (test code = Lipase Lvl) 314 73-393 [facility] [id number] 17:02:00 Test Item Value Reference Range Interpretation Comments B/C Ratio (test code = B/C Ratio) 7 6-25 [facility] [id number] 17:02:00 Test Item Value Reference Range Interpretation Comments Globulin (test code = Globulin) 5.4 2.0-4.0 [facility] [id number] 17:02:00 Test Item Value Reference Range Interpretation Comments A/G Ratio (test code = A/G Ratio) 0.3 0.7-1.6 [facility] [id number] 17:02:00 Test Item Value Reference Range Interpretation Comments AGAP (test code = AGAP) 12.1 10.0-20.0 [facility] [id number] 17:02:00 Test Item Value Reference Range Interpretation Comments eGFR (test code = eGFR) 7 [facility] [id number] 17:02:00 Test Item Value Reference Range Interpretation Comments AST (test code = AST) 45 See_Comment [Auto mated message] The system which ge nerated this result transmit marsha reference range : <=37. The reference range was not used to interpr et this result as charis l/abnormal. [facility]2016-04-06 17:02:00 Test Item Value Reference Range Interpretation Comments Albumin Lvl (test code = Albumin Lvl) 1.8 3.5-5.0 [facility]2016-04-06 17:02:00 Test Item Value Reference Range Interpretation Comments ALT (test code = ALT) 37 See_Comment [Auto mated message] The system which ge nerated this result transmit marsha reference range : <=65. The reference range was not used to interpr et this result as charis l/abnormal. [facility]2016-04-06 17:02:00 Test Item Value Reference Range Interpretation Comments Bili Total (test code = Bili Total) 0.3 0.2-1.3 [facility]2016-04-06 17:02:00 Test Item Value Reference Range Interpretation Comments Alk Phos (test code = Alk Phos) 84 39-136 [facility]2016-04-06 17:02:00 Test Item Value Reference Range Interpretation Comments Total Protein (test code = Total 7.2 6.4-8.4 Protein) [facility]2016-04-06 17:02:00 Test Item Value Reference Range Interpretation Comments Calcium Lvl (test code = Calcium Lvl) 8.4 8.5-10.5 [facility]2016-04-06 17:02:00 Test Item Value Reference Range Interpretation Comments Glucose Lvl (test code = Glucose Lvl) 106 70-99 [facility]2016-04-06 17:02:00 Test Item Value Reference Range Interpretation Comments Potassium Lvl (test code = Potassium 5.1 3.5-5.1 Lvl) [facility]2016-04-06 17:02:00 Test Item Value Reference Range Interpretation Comments Chloride Lvl (test code = Chloride Lvl) 109 95-109 [facility]2016-04-06 17:02:00 Test Item Value Reference Range Interpretation Comments CO2 (test code = CO2) 21 24-32 [facility]2016-04-06 17:02:00 Test Item Value Reference Range Interpretation Comments Sodium Lvl (test code = Sodium Lvl) 137 135-145 [facility]2016-04-06 17:02:00 Test Item Value Reference Range Interpretation Comments Creatinine Lvl (test code = Creatinine 7.50 0.50-1.40 Lvl) [facility]2016-04-06 17:02:00 Test Item Value Reference Range Interpretation Comments BUN (test code = BUN) 52 7-22 [facility] Hospit[id number] 17:02:00 Test Item Value Reference Range Interpretation Comments Monocytes # (test code 0.4 See_Comment [Aut omated message] The = Monocytes #) system which generated this result tra nsmitted reference range : <=0.8. The reference r nabor was not used to int erpret this result as normal/abnormal . [facility] HospitalNwtdvccRDSBFKOBMP5504-31-05 17:02:00 Test Item Value Reference Range Interpretation Comments Basophils # (test code 0.0 See_Comment [Aut omated message] The = Basophils #) system which generated this result tra nsmitted reference range : <=0.2. The reference r nabor was not used to int erpret this result as normal/abnormal . [facility] HospitalBnxmlkzKUHSDFYLPM2556-56-47 17:02:00 Test Item Value Reference Range Interpretation Comments Eosinophils # (test code 0.1 See_Comment [A utomated message] The = Eosinophils #) system whic h generated this result tra nsmitted reference range : <=0.5. The reference r nabor was not used to int erpret this result as normal/abnormal . [facility] Hospit[id number] 17:02:00 Test Item Value Reference Range Interpretation Comments Lymphocytes (test code = Lymphocytes) 27.3 20.0-40.0 [facility] Hospit[id number] 17:02:00 Test Item Value Reference Range Interpretation Comments Segs (test code = Segs) 65.3 45.0-75.0 [facility] Ho[id number] 17:02:00 Test Item Value Reference Range Interpretation Comments Segs-Bands # (test code = Segs-Bands #) 4.4 1.5-8.1 [place] [id number] 17:02:00 Test Item Value Reference Range Interpretation Comments Basophils (test code = 0.5 See_Comment [Aut omated message] The Basophils) system which ge nerated this result tra nsmitted reference range : <=1.0. The reference r nabor was not used to int erpret this result as normal/abnormal . [facility] HospitalAabilkuECZRDNOHKC6386-51-93 17:02:00 Test Item Value Reference Range Interpretation Comments Eosinophils (test code = 1.3 See_Comment [A utomated message] The Eosinophils) system which ge nerated this result tra nsmitted reference range : <=4.0. The reference r nabor was not used to int erpret this result as normal/abnormal . [facility] HospitalTlaecgqJTIQIBEDGO7546-61-73 17:02:00 Test Item Value Reference Range Interpretation Comments Monocytes (test code = Monocytes) 5.6 2.0-12.0 [facility] HospitalEzvvrrfREQALWYJDP7939-45-15 17:02:00 Test Item Value Reference Range Interpretation Comments Lymphocytes # (test code = Lymphocytes 1.9 1.0-5.5 #) [facility] HospitalKmslfwiKWRHMUWCOX7592-91-40 17:02:00 Test Item Value Reference Range Interpretation Comments Hct (test code = Hct) 28.8 36.0-48.0 [facility] HospitalRtxxzsaPTRJLPWYFL2992-64-77 17:02:00 Test Item Value Reference Range Interpretation Comments Hgb (test code = Hgb) 9.3 12.0-16.0 [facility] HospitalZpestisKNQVTZRTVC8871-39-86 17:02:00 Test Item Value Reference Range Interpretation Comments RBC (test code = RBC) 3.24 4.20-5.40 [facility] HospitalHlypeklBUSPNMPZEQ9856-45-85 17:02:00 Test Item Value Reference Range Interpretation Comments MCH (test code = MCH) 28.8 pg 27.0-31.0 [facility] HospitalJqifxwcNKDUSUIRXP4071-26-92 17:02:00 Test Item Value Reference Range Interpretation Comments MCV (test code = MCV) 88.8 80.0-98.0 [facility] HospitalWsyowdbJJBUYKUMWK9039-42-33 17:02:00 Test Item Value Reference Range Interpretation Comments Platelet (test code = Platelet) 235 133-450 [facility] HospitalTcgduxiYIHIFLIPBN6060-66-66 17:02:00 Test Item Value Reference Range Interpretation Comments RDW (test code = RDW) 15.2 11.5-14.5 [facility] HospitalQachtpbXVKGJIHOFN8256-29-17 17:02:00 Test Item Value Reference Range Interpretation Comments MCHC (test code = MCHC) 32.4 32.0-36.0 [facility] HospitalFlwytbnTVAOFQJLJK3625-25-55 17:02:00 Test Item Value Reference Range Interpretation Comments MPV (test code = MPV) 9.3 7.4-10.4 [facility] HospitalNirwxdmWIJTFSLDSJ6973-21-25 17:02:00 Test Item Value Reference Range Interpretation Comments WBC (test code = WBC) 6.8 3.7-10.4 [facility] AND [id number] 17:02:00 Test Item Value Reference Range Interpretation Comments UA Color (test code = Yellow *NA*(06/17/15 UA Color) 12:02 PM) [facility] AND [id number] 17:02:00 Test Item Value Reference Range Interpretation Comments UA Turbidity (test code = Clear (06/17/15 12:02 UA Turbidity) PM) [facility] AND [id number] 17:02:00 Test Item Value Reference Range Interpretation Comments UA Leuk Est (test Negative (06/17/15 12:02 code = UA Leuk Est) PM) [facility] AND [id number] 17:02:00 Test Item Value Reference Range Interpretation Comments UA Urobilinogen (test code = UA 0.2 0.1-1.0 Urobilinogen) [facility] AND [id number] 17:02:00 Test Item Value Reference Range Interpretation Comments UA Blood (test code = Moderate *ABN*(06/17/15 UA Blood) 12:02 PM) [facility] AND [id number] 17:02:00 Test Item Value Reference Range Interpretation Comments UA Nitrite (test code Negative (06/17/15 12:02 = UA Nitrite) PM) [facility] AND [id number] 17:02:00 Test Item Value Reference Range Interpretation Comments UA Bili (test code = Negative *NA*(06/17/15 UA Bili) 12:02 PM) [facility] AND [id number] 17:02:00 Test Item Value Reference Range Interpretation Comments UA Glucose (test code = UA Glucose) 250 mg/dL [facility] AND [id number] 17:02:00 Test Item Value Reference Range Interpretation Comments UA Protein (test code = UA >=300 mg/dL Protein) [facility] AND [id number] 17:02:00 Test Item Value Reference Range Interpretation Comments UA Ketones (test code Negative *NA*(06/17/15 = UA Ketones) 12:02 PM) [facility] AND [id number] 17:02:00 Test Item Value Reference Range Interpretation Comments UA pH (test code = UA pH) 6.5 1 5.0-8.0 [facility] AND [id number] 17:02:00 Test Item Value Reference Range Interpretation Comments UA Spec Grav (test code = UA Spec 1.020 1 Grav) [facility] AND [id number] 17:02:00 Test Item Value Reference Range Interpretation Comments UA Mucus (test code = UA Mucus) Few /LPF [facility] AND [id number] 17:02:00 Test Item Value Reference Range Interpretation Comments UA Sq Epi (test code = UA Sq Epi) Few /LPF [facility] AND [id number] 17:02:00 Test Item Value Reference Range Interpretation Comments UA RBC (test code 11-20 /HPF See_Comment [Automate d message] The = UA RBC) system which ge nerated this result tra nsmitted reference range : <=2. The reference range was not used to interpr et this result as normal/abnormal . [facility] AND [id number] 17:02:00 Test Item Value Reference Range Interpretation Comments UA WBC (test code = UA WBC) 6-10 /HPF [facility] AND [id number] 17:02:00 Test Item Value Reference Range Interpretation Comments UA Bacteria (test code = UA Few /HPF Bacteria) [facility] [id number] 17:02:00 Test Item Value Reference Range Interpretation Comments U Preg (test code = U Negative (06/17/15 12:02 Preg) PM) [facility] [id number] 17:02:00 Test Item Value Reference Range Interpretation Comments Troponin-I (test code 0.10 See_Comment [Auto mated message] The = Troponin-I) system which g enerated this result transmit marsha reference range : <=0.40. The reference r nabor was not used to interpr et this result as charis l/abnormal. [facility] [id number] 17:02:00 Test Item Value Reference Range Interpretation Comments Lipase Lvl (test code = Lipase Lvl) 314 73-393 [facility]2016-04-06 17:02:00 Test Item Value Reference Range Interpretation Comments B/C Ratio (test code = B/C Ratio) 7 6-25 [facility]Aav[facility] HealthEC[facility] BERTIE [id number] 17:02:00 Test Item Value Reference Range Interpretation Comments Globulin (test code = Globulin) 5.4 2.0-4.0 [facility]2016-04-06 17:02:00 Test Item Value Reference Range Interpretation Comments A/G Ratio (test code = A/G Ratio) 0.3 0.7-1.6 [facility]2016-04-06 17:02:00 Test Item Value Reference Range Interpretation Comments AGAP (test code = AGAP) 12.1 10.0-20.0 [facility]Aavya HealthECU [facility] BERTIE [id number] 17:02:00 Test Item Value Reference Range Interpretation Comments eGFR (test code = eGFR) 7 [facility]2016-04-06 17:02:00 Test Item Value Reference Range Interpretation Comments AST (test code = AST) 45 See_Comment [Auto mated message] The system which ge nerated this result transmit marsha reference range : <=37. The reference range was not used to interpr et this result as charis l/abnormal. [facility] [id number] 17:02:00 Test Item Value Reference Range Interpretation Comments Albumin Lvl (test code = Albumin Lvl) 1.8 3.5-5.0 [facility] [id number] 17:02:00 Test Item Value Reference Range Interpretation Comments ALT (test code = ALT) 37 See_Comment [Auto mated message] The system which ge nerated this result transmit marsha reference range : <=65. The reference range was not used to interpr et this result as charis l/abnormal. [facility] [id number] 17:02:00 Test Item Value Reference Range Interpretation Comments Bili Total (test code = Bili Total) 0.3 0.2-1.3 [facility]2016-04-06 17:02:00 Test Item Value Reference Range Interpretation Comments Alk Phos (test code = Alk Phos) 84 39-136 [facility]2016-04-06 17:02:00 Test Item Value Reference Range Interpretation Comments Total Protein (test code = Total 7.2 6.4-8.4 Protein) [facility]2016-04-06 17:02:00 Test Item Value Reference Range Interpretation Comments Calcium Lvl (test code = Calcium Lvl) 8.4 8.5-10.5 [facility]2016-04-06 17:02:00 Test Item Value Reference Range Interpretation Comments Glucose Lvl (test code = Glucose Lvl) 106 70-99 [facility]2016-04-06 17:02:00 Test Item Value Reference Range Interpretation Comments Potassium Lvl (test code = Potassium 5.1 3.5-5.1 Lvl) [facility]2016-04-06 17:02:00 Test Item Value Reference Range Interpretation Comments Chloride Lvl (test code = Chloride Lvl) 109 95-109 [facility]2016-04-06 17:02:00 Test Item Value Reference Range Interpretation Comments CO2 (test code = CO2) 21 24-32 [facility]2016-04-06 17:02:00 Test Item Value Reference Range Interpretation Comments Sodium Lvl (test code = Sodium Lvl) 137 135-145 [facility]2016-04-06 17:02:00 Test Item Value Reference Range Interpretation Comments Creatinine Lvl (test code = Creatinine 7.50 0.50-1.40 Lvl) [facility]2016-04-06 17:02:00 Test Item Value Reference Range Interpretation Comments BUN (test code = BUN) 52 7-22 [facility]SkujycsNHIGLVEPMW1559-86-77 17:02:00 Test Item Value Reference Range Interpretation Comments Monocytes # (test code 0.4 See_Comment [Aut omated message] The = Monocytes #) system which generated this result tra nsmitted reference range : <=0.8. The reference r nabor was not used to int erpret this result as normal/abnormal . [facility] HospitalCeiqyknGCFASKQTYD2267-56-88 17:02:00 Test Item Value Reference Range Interpretation Comments Basophils # (test code 0.0 See_Comment [Aut omated message] The = Basophils #) system which generated this result tra nsmitted reference range : <=0.2. The reference r nabor was not used to int erpret this result as normal/abnormal . [facility] HospitalOxdukqiTOCSPCOWEQ3522-15-61 17:02:00 Test Item Value Reference Range Interpretation Comments Eosinophils # (test code 0.1 See_Comment [A utomated message] The = Eosinophils #) system whic h generated this result tra nsmitted reference range : <=0.5. The reference r nabor was not used to int erpret this result as normal/abnormal . [facility] HospitalHacfshmOOCKNZBDQP3058-39-63 17:02:00 Test Item Value Reference Range Interpretation Comments Lymphocytes (test code = Lymphocytes) 27.3 20.0-40.0 [facility] HospitalPdibqyzVSZBLAFKIU3899-05-29 17:02:00 Test Item Value Reference Range Interpretation Comments Segs (test code = Segs) 65.3 45.0-75.0 [facility] HospitalJtmkkeiDMEFQGQCSA7053-96-98 17:02:00 Test Item Value Reference Range Interpretation Comments Segs-Bands # (test code = Segs-Bands #) 4.4 1.5-8.1 [facility] HospitalWvwgudwWHQOFKSHHB1554-72-70 17:02:00 Test Item Value Reference Range Interpretation Comments Basophils (test code = 0.5 See_Comment [Aut omated message] The Basophils) system which ge nerated this result tra nsmitted reference range : <=1.0. The reference r nabor was not used to int erpret this result as normal/abnormal . [facility] HospitalUrtpqgzRFSSFAGOCU9834-92-22 17:02:00 Test Item Value Reference Range Interpretation Comments Eosinophils (test code = 1.3 See_Comment [A utomated message] The Eosinophils) system which ge nerated this result tra nsmitted reference range : <=4.0. The reference r nabor was not used to int erpret this result as normal/abnormal . [facility] HospitalHgobaxvQMLYPRHUNJ1735-71-17 17:02:00 Test Item Value Reference Range Interpretation Comments Monocytes (test code = Monocytes) 5.6 2.0-12.0 [facility] HospitalDiidspyEVFOSKLRNM2161-24-65 17:02:00 Test Item Value Reference Range Interpretation Comments Lymphocytes # (test code = Lymphocytes 1.9 1.0-5.5 #) [facility] Hospit[id number] 17:02:00 Test Item Value Reference Range Interpretation Comments Hct (test code = Hct) 28.8 36.0-48.0 [facility] HospitalCmpxmxiYTKWURDYBR7361-92-77 17:02:00 Test Item Value Reference Range Interpretation Comments Hgb (test code = Hgb) 9.3 12.0-16.0 [facility] HospitalSnvtlryVMCNQXFHEY8991-08-45 17:02:00 Test Item Value Reference Range Interpretation Comments RBC (test code = RBC) 3.24 4.20-5.40 [facility] HospitalOfpctogAXFIXZPRKA2457-62-85 17:02:00 Test Item Value Reference Range Interpretation Comments MCH (test code = MCH) 28.8 pg 27.0-31.0 [facility] HospitalKbgoxjjINJKXPLKJV6594-27-20 17:02:00 Test Item Value Reference Range Interpretation Comments MCV (test code = MCV) 88.8 80.0-98.0 [facility] HospitalXnezdstYXGVLXGOZQ1036-02-34 17:02:00 Test Item Value Reference Range Interpretation Comments Platelet (test code = Platelet) 235 133-450 [facility] HospitalDrmltscPSVIJFFLWS3470-96-45 17:02:00 Test Item Value Reference Range Interpretation Comments RDW (test code = RDW) 15.2 11.5-14.5 [facility] HospitalZjmfvqpXCOLLLCYUL8987-12-69 17:02:00 Test Item Value Reference Range Interpretation Comments MCHC (test code = MCHC) 32.4 32.0-36.0 [facility] HospitalDqyjhomNAFZSWRZAC0565-45-90 17:02:00 Test Item Value Reference Range Interpretation Comments MPV (test code = MPV) 9.3 7.4-10.4 [facility] HospitalMsdsytnLOOHGRFDAL8722-96-19 17:02:00 Test Item Value Reference Range Interpretation Comments WBC (test code = WBC) 6.8 3.7-10.4 [facility]2016-04-06 17:02:00 Test Item Value Reference Range Interpretation Comments UA Color (test code = Yellow *NA*(06/17/15 UA Color) 12:02 PM) [facility] AND [id number] 17:02:00 Test Item Value Reference Range Interpretation Comments UA Turbidity (test code = Clear (06/17/15 12:02 UA Turbidity) PM) [facility] AND [id number] 17:02:00 Test Item Value Reference Range Interpretation Comments UA Leuk Est (test Negative (06/17/15 12:02 code = UA Leuk Est) PM) [facility] AND [id number] 17:02:00 Test Item Value Reference Range Interpretation Comments UA Urobilinogen (test code = UA 0.2 0.1-1.0 Urobilinogen) [facility] AND [id number] 17:02:00 Test Item Value Reference Range Interpretation Comments UA Blood (test code = Moderate *ABN*(06/17/15 UA Blood) 12:02 PM) [facility] AND [id number] 17:02:00 Test Item Value Reference Range Interpretation Comments UA Nitrite (test code Negative (06/17/15 12:02 = UA Nitrite) PM) [facility] AND [id number] 17:02:00 Test Item Value Reference Range Interpretation Comments UA Bili (test code = Negative *NA*(06/17/15 UA Bili) 12:02 PM) [facility] AND [id number] 17:02:00 Test Item Value Reference Range Interpretation Comments UA Glucose (test code = UA Glucose) 250 mg/dL [facility] AND [id number] 17:02:00 Test Item Value Reference Range Interpretation Comments UA Protein (test code = UA >=300 mg/dL Protein) [facility] AND [id number] 17:02:00 Test Item Value Reference Range Interpretation Comments UA Ketones (test code Negative *NA*(06/17/15 = UA Ketones) 12:02 PM) [facility] AND [id number] 17:02:00 Test Item Value Reference Range Interpretation Comments UA pH (test code = UA pH) 6.5 1 5.0-8.0 [facility] AND [id number] 17:02:00 Test Item Value Reference Range Interpretation Comments UA Spec Grav (test code = UA Spec 1.020 1 Grav) [facility] AND [id number] 17:02:00 Test Item Value Reference Range Interpretation Comments UA Mucus (test code = UA Mucus) [facility] [id number] 17:02:00 Test Item Value Reference Range Interpretation Comments UA Sq Epi (test code = UA Sq Epi) Few /[facility]F [facility] [id number] 17:02:00 Test Item Value Reference Range Interpretation Comments UA RBC (test code 11-20 /HPF See_Comment [Automate d message] The = UA RBC) system which ge nerated this result tra nsmitted reference range : <=2. The reference range was not used to interpr et this result as normal/abnormal . [facility] [id number] 17:02:00 Test Item Value Reference Range Interpretation Comments UA WBC (test code = UA WBC) 6-10 /HPF [facility] [id number] 17:02:00 Test Item Value Reference Range Interpretation Comments UA Bacteria (test code = UA Few /HPF Bacteria) [facility] [id number] 17:02:00 Test Item Value Reference Range Interpretation Comments U Preg (test code = U Negative (06/17/15 12:02 Preg) PM) [facility] [id number] 17:02:00 Test Item Value Reference Range Interpretation Comments Troponin-I (test code 0.10 See_Comment [Auto mated message] The = Troponin-I) system which g enerated this result transmit marsha reference range : <=0.40. The reference r nabor was not used to interpr et this result as charis l/abnormal. [facility] [id number] 17:02:00 Test Item Value Reference Range Interpretation Comments Lipase Lvl (test code = Lipase Lvl) 314 73-393 [facility] [id number] 17:02:00 Test Item Value Reference Range Interpretation Comments B/C Ratio (test code = B/C Ratio) 7 6-25 [facility] [id number] 17:02:00 Test Item Value Reference Range Interpretation Comments Globulin (test code = Globulin) 5.4 2.0-4.0 [facility] [id number] 17:02:00 Test Item Value Reference Range Interpretation Comments A/G Ratio (test code = A/G Ratio) 0.3 0.7-1.6 [facility]2016-04-06 17:02:00 Test Item Value Reference Range Interpretation Comments AGAP (test code = AGAP) 12.1 10.0-20.0 [facility]2016-04-06 17:02:00 Test Item Value Reference Range Interpretation Comments eGFR (test code = eGFR) 7 [facility]2016-04-06 17:02:00 Test Item Value Reference Range Interpretation Comments AST (test code = AST) 45 See_Comment [Auto mated message] The system which ge nerated this result transmit marsha reference range : <=37. The reference range was not used to interpr et this result as charis l/abnormal. [facility]2016-04-06 17:02:00 Test Item Value Reference Range Interpretation Comments Albumin Lvl (test code = Albumin Lvl) 1.8 3.5-5.0 [facility]2016-04-06 17:02:00 Test Item Value Reference Range Interpretation Comments ALT (test code = ALT) 37 See_Comment [Auto mated message] The system which ge nerated this result transmit marsha reference range : <=65. The reference range was not used to interpr et this result as charis l/abnormal. [facility]2016-04-06 17:02:00 Test Item Value Reference Range Interpretation Comments Bili Total (test code = Bili Total) 0.3 0.2-1.3 [facility]2016-04-06 17:02:00 Test Item Value Reference Range Interpretation Comments Alk Phos (test code = Alk Phos) 84 39-136 [facility]2016-04-06 17:02:00 Test Item Value Reference Range Interpretation Comments Total Protein (test code = Total 7.2 6.4-8.4 Protein) [facility]2016-04-06 17:02:00 Test Item Value Reference Range Interpretation Comments Calcium Lvl (test code = Calcium Lvl) 8.4 8.5-10.5 [facility]2016-04-06 17:02:00 Test Item Value Reference Range Interpretation Comments Glucose Lvl (test code = Glucose Lvl) 106 70-99 [facility]2016-04-06 17:02:00 Test Item Value Reference Range Interpretation Comments Potassium Lvl (test code = Potassium 5.1 3.5-5.1 Lvl) [facility]2016-04-06 17:02:00 Test Item Value Reference Range Interpretation Comments Chloride Lvl (test code = Chloride Lvl) 109 95-109 [facility]2016-04-06 17:02:00 Test Item Value Reference Range Interpretation Comments CO2 (test code = CO2) 21 24-32 [facility]2016-04-06 17:02:00 Test Item Value Reference Range Interpretation Comments Sodium Lvl (test code = Sodium Lvl) 137 135-145 [facility]2016-04-06 17:02:00 Test Item Value Reference Range Interpretation Comments Creatinine Lvl (test code = Creatinine 7.50 0.50-1.40 Lvl) [facility]2016-04-06 17:02:00 Test Item Value Reference Range Interpretation Comments BUN (test code = BUN) 52 7-22 [facility] H[id number] 17:02:00 Test Item Value Reference Range Interpretation Comments Monocytes # (test code 0.4 See_Comment [Aut omated message] The = Monocytes #) system which generated this result tra nsmitted reference range : <=0.8. The reference r nabor was not used to int erpret this result as normal/abnormal . [facility] Hospit[id number] 17:02:00 Test Item Value Reference Range Interpretation Comments Basophils # (test code 0.0 See_Comment [Aut omated message] The = Basophils #) system which generated this result tra nsmitted reference range : <=0.2. The reference r nabor was not used to int erpret this result as normal/abnormal . [facility] HospitalVipwqnsDWQMZGNBTY1257-53-97 17:02:00 Test Item Value Reference Range Interpretation Comments Eosinophils # (test code 0.1 See_Comment [A utomated message] The = Eosinophils #) system whic h generated this result tra nsmitted reference range : <=0.5. The reference r nabor was not used to int erpret this result as normal/abnormal . [facility] HospitalXaffrerWHFXVRHYNK2194-62-06 17:02:00 Test Item Value Reference Range Interpretation Comments Lymphocytes (test code = Lymphocytes) 27.3 20.0-40.0 [facility] HospitalG[id number] 17:02:00 Test Item Value Reference Range Interpretation Comments Segs (test code = Segs) 65.3 45.0-75.0 [facility] HospitalRtobooyCECOIWYGMI4856-99-16 17:02:00 Test Item Value Reference Range Interpretation Comments Segs-Bands # (test code = Segs-Bands #) 4.4 1.5-8.1 [facility] Hos[id number] 17:02:00 Test Item Value Reference Range Interpretation Comments Basophils (test code = 0.5 See_Comment [Aut omated message] The Basophils) system which ge nerated this result tra nsmitted reference range : <=1.0. The reference r nabor was not used to int erpret this result as normal/abnormal . [facility] HospitalSctgrcjBCZQBATZSM2370-79-21 17:02:00 Test Item Value Reference Range Interpretation Comments Eosinophils (test code = 1.3 See_Comment [A utomated message] The Eosinophils) system which ge nerated this result tra nsmitted reference range : <=4.0. The reference r nabor was not used to int erpret this result as normal/abnormal . [facility] H[id number] 17:02:00 Test Item Value Reference Range Interpretation Comments Monocytes (test code = Monocytes) 5.6 2.0-12.0 [facility] HospitalNwfuoaxYIUMYINGXT2348-97-84 17:02:00 Test Item Value Reference Range Interpretation Comments Lymphocytes # (test code = Lymphocytes 1.9 1.0-5.5 #) [facility] HospitalHyyosgnMDWZYIGPVZ0397-00-27 17:02:00 Test Item Value Reference Range Interpretation Comments Hct (test code = Hct) 28.8 36.0-48.0 [facility] HospitalSoajosrRHEEMGJAMQ5174-80-54 17:02:00 Test Item Value Reference Range Interpretation Comments Hgb (test code = Hgb) 9.3 12.0-16.0 [facility] HospitalSunhwfhAKNZVYVHES1642-11-98 17:02:00 Test Item Value Reference Range Interpretation Comments RBC (test code = RBC) 3.24 4.20-5.40 [facility] HospitalZmwhhklRQJGBIGAFP7294-17-50 17:02:00 Test Item Value Reference Range Interpretation Comments MCH (test code = MCH) 28.8 pg 27.0-31.0 [facility] HospitalIqscrqdVNOBZHBZOL3467-08-26 17:02:00 Test Item Value Reference Range Interpretation Comments MCV (test code = MCV) 88.8 80.0-98.0 [facility] HospitalSyiyhvxZLPMVNRPXM2581-01-94 17:02:00 Test Item Value Reference Range Interpretation Comments Platelet (test code = Platelet) 235 133-450 [facility] HospitalTnogjxxSNBVUXGIMZ4344-31-49 17:02:00 Test Item Value Reference Range Interpretation Comments RDW (test code = RDW) 15.2 11.5-14.5 [facility] HospitalZuodariQUPWNEPKES4902-55-00 17:02:00 Test Item Value Reference Range Interpretation Comments MCHC (test code = MCHC) 32.4 32.0-36.0 [facility] Hos[id number] 17:02:00 Test Item Value Reference Range Interpretation Comments MPV (test code = MPV) 9.3 7.4-10.4 [facility] HospitalLjfxtkhPAZQCWPDXZ4101-23-56 17:02:00 Test Item Value Reference Range Interpretation Comments WBC (test code = WBC) 6.8 3.7-10.4 [facility] AND [id number] 17:02:00 Test Item Value Reference Range Interpretation Comments UA Color (test code = Yellow *NA*(06/17/15 UA Color) 12:02 PM) [facility] AND [id number] 17:02:00 Test Item Value Reference Range Interpretation Comments UA Turbidity (test code = Clear (06/17/15 12:02 UA Turbidity) PM) [facility] AND [id number] 17:02:00 Test Item Value Reference Range Interpretation Comments UA Leuk Est (test Negative (06/17/15 12:02 code = UA Leuk Est) PM) [facility] AND [id number] 17:02:00 Test Item Value Reference Range Interpretation Comments UA Urobilinogen (test code = UA 0.2 0.1-1.0 Urobilinogen) [facility] AND [id number] 17:02:00 Test Item Value Reference Range Interpretation Comments UA Blood (test code = Moderate *ABN*(06/17/15 UA Blood) 12:02 PM) [facility] AND [id number] 17:02:00 Test Item Value Reference Range Interpretation Comments UA Nitrite (test code Negative (06/17/15 12:02 = UA Nitrite) PM) [facility] AND [id number] 17:02:00 Test Item Value Reference Range Interpretation Comments UA Bili (test code = Negative *NA*(06/17/15 UA Bili) 12:02 PM) [facility] AND [id number] 17:02:00 Test Item Value Reference Range Interpretation Comments UA Glucose (test code = UA Glucose) 250 mg/dL [facility] AND [id number] 17:02:00 Test Item Value Reference Range Interpretation Comments UA Protein (test code = UA >=300 mg/dL Protein) [facility] AND [id number] 17:02:00 Test Item Value Reference Range Interpretation Comments UA Ketones (test code Negative *NA*(06/17/15 = UA Ketones) 12:02 PM) [facility] AND [id number] 17:02:00 Test Item Value Reference Range Interpretation Comments UA pH (test code = UA pH) 6.5 1 5.0-8.0 [facility] AND [id number] 17:02:00 Test Item Value Reference Range Interpretation Comments UA Spec Grav (test code = UA Spec 1.020 1 Grav) [facility] AND [id number] 17:02:00 Test Item Value Reference Range Interpretation Comments UA Mucus (test code = UA Mucus) Few /LPF [facility] AND [id number] 17:02:00 Test Item Value Reference Range Interpretation Comments UA Sq Epi (test code = UA Sq Epi) Few /LPF [facility] AND [id number] 17:02:00 Test Item Value Reference Range Interpretation Comments UA RBC (test code 11-20 /HPF See_Comment [Automate d message] The = UA RBC) system which ge nerated this result tra nsmitted reference range : <=2. The reference range was not used to interpr et this result as normal/abnormal . [facility] AND [id number] 17:02:00 Test Item Value Reference Range Interpretation Comments UA WBC (test code = UA WBC) 6-10 /HPF [facility] AND [id number] 17:02:00 Test Item Value Reference Range Interpretation Comments UA Bacteria (test code = UA Few /HPF Bacteria) [facility] [id number] 17:02:00 Test Item Value Reference Range Interpretation Comments U Preg (test code = U Negative (06/17/15 12:02 Preg) PM) [facility] [id number] 17:02:00 Test Item Value Reference Range Interpretation Comments Troponin-I (test code 0.10 See_Comment [Auto mated message] The = Troponin-I) system which g enerated this result transmit marsha reference range : <=0.40. The reference r nabor was not used to interpr et this result as charis l/abnormal. [facility] Owned it [id number] 17:02:00 Test Item Value Reference Range Interpretation Comments Lipase Lvl (test code = Lipase Lvl) 314 73-393 [facility] [id number] 17:02:00 Test Item Value Reference Range Interpretation Comments B/C Ratio (test code = B/C Ratio) 7 6-25 [facility] [id number] 17:02:00 Test Item Value Reference Range Interpretation Comments Globulin (test code = Globulin) 5.4 2.0-4.0 [facility] it [id number] 17:02:00 Test Item Value Reference Range Interpretation Comments A/G Ratio (test code = A/G Ratio) 0.3 0.7-1.6 [facility] [id number] 17:02:00 Test Item Value Reference Range Interpretation Comments AGAP (test code = AGAP) 12.1 10.0-20.0 [facility] it [id number] 17:02:00 Test Item Value Reference Range Interpretation Comments eGFR (test code = eGFR) 7 [facility] [id number] 17:02:00 Test Item Value Reference Range Interpretation Comments AST (test code = AST) 45 See_Comment [Auto mated message] The system which ge nerated this result transmit marsha reference range : <=37. The reference range was not used to interpr et this result as charis l/abnormal. [facility] Owned it [id number] 17:02:00 Test Item Value Reference Range Interpretation Comments Albumin Lvl (test code = Albumin Lvl) 1.8 3.5-5.0 [facility]2016-04-06 17:02:00 Test Item Value Reference Range Interpretation Comments ALT (test code = ALT) 37 See_Comment [Auto mated message] The system which ge nerated this result transmit marsha reference range : <=65. The reference range was not used to interpr et this result as charis l/abnormal. [facility]2016-04-06 17:02:00 Test Item Value Reference Range Interpretation Comments Bili Total (test code = Bili Total) 0.3 0.2-1.3 [facility]2016-04-06 17:02:00 Test Item Value Reference Range Interpretation Comments Alk Phos (test code = Alk Phos) 84 39-136 [facility]2016-04-06 17:02:00 Test Item Value Reference Range Interpretation Comments Total Protein (test code = Total 7.2 6.4-8.4 Protein) [facility]2016-04-06 17:02:00 Test Item Value Reference Range Interpretation Comments Calcium Lvl (test code = Calcium Lvl) 8.4 8.5-10.5 [facility]2016-04-06 17:02:00 Test Item Value Reference Range Interpretation Comments Glucose Lvl (test code = Glucose Lvl) 106 70-99 [facility]2016-04-06 17:02:00 Test Item Value Reference Range Interpretation Comments Potassium Lvl (test code = Potassium 5.1 3.5-5.1 Lvl) [facility]2016-04-06 17:02:00 Test Item Value Reference Range Interpretation Comments Chloride Lvl (test code = Chloride Lvl) 109 95-109 [facility]2016-04-06 17:02:00 Test Item Value Reference Range Interpretation Comments CO2 (test code = CO2) 21 24-32 [facility]2016-04-06 17:02:00 Test Item Value Reference Range Interpretation Comments Sodium Lvl (test code = Sodium Lvl) 137 135-145 [facility]2016-04-06 17:02:00 Test Item Value Reference Range Interpretation Comments Creatinine Lvl (test code = Creatinine 7.50 0.50-1.40 Lvl) [facility]2016-04-06 17:02:00 Test Item Value Reference Range Interpretation Comments BUN (test code = BUN) 52 7-22 [facility] [id number] 17:02:00 Test Item Value Reference Range Interpretation Comments Monocytes # (test code 0.4 See_Comment [Aut omated message] The = Monocytes #) system which generated this result tra nsmitted reference range : <=0.8. The reference r nabor was not used to int erpret this result as normal/abnormal . [facility] HospitalZqzbsiqVBLHTQBCYC9374-84-94 17:02:00 Test Item Value Reference Range Interpretation Comments Basophils # (test code 0.0 See_Comment [Aut omated message] The = Basophils #) system which generated this result tra nsmitted reference range : <=0.2. The reference r nabor was not used to int erpret this result as normal/abnormal . [facility] HospitalHosgdmhUUOCRVCFIH9503-95-08 17:02:00 Test Item Value Reference Range Interpretation Comments Eosinophils # (test code 0.1 See_Comment [A utomated message] The = Eosinophils #) system whic h generated this result tra nsmitted reference range : <=0.5. The reference r nabor was not used to int erpret this result as normal/abnormal . [facility] HospitalJjwccotKSIYHOXXFV1846-37-33 17:02:00 Test Item Value Reference Range Interpretation Comments Lymphocytes (test code = Lymphocytes) 27.3 20.0-40.0 [facility] HospitalVieidifWQHEVIIPGU3881-90-68 17:02:00 Test Item Value Reference Range Interpretation Comments Segs (test code = Segs) 65.3 45.0-75.0 [facility] HospitalWyzfmvkNTYSROJNOU8076-35-13 17:02:00 Test Item Value Reference Range Interpretation Comments Segs-Bands # (test code = Segs-Bands #) 4.4 1.5-8.1 [facility] HospitalTxssdoaXYOISPELJR5041-54-21 17:02:00 Test Item Value Reference Range Interpretation Comments Basophils (test code = 0.5 See_Comment [Aut omated message] The Basophils) system which ge nerated this result tra nsmitted reference range : <=1.0. The reference r nabor was not used to int erpret this result as normal/abnormal . [facility] HospitalIvexhrwJTKCOUKJGM9901-71-68 17:02:00 Test Item Value Reference Range Interpretation Comments Eosinophils (test code = 1.3 See_Comment [A utomated message] The Eosinophils) system which ge nerated this result tra nsmitted reference range : <=4.0. The reference r nabor was not used to int erpret this result as normal/abnormal . [facility] HospitalIcoviifNTRUWTIEHF2343-09-30 17:02:00 Test Item Value Reference Range Interpretation Comments Monocytes (test code = Monocytes) 5.6 2.0-12.0 [facility] HospitalSuhdpecPOYXNNJRPY9250-69-82 17:02:00 Test Item Value Reference Range Interpretation Comments Lymphocytes # (test code = Lymphocytes 1.9 1.0-5.5 #) [facility] HospitalHvqjpgyMXPZORNHKG8320-67-80 17:02:00 Test Item Value Reference Range Interpretation Comments Hct (test code = Hct) 28.8 36.0-48.0 [facility] HospitalLjzsonvFEXDSIDTMD8925-38-90 17:02:00 Test Item Value Reference Range Interpretation Comments Hgb (test code = Hgb) 9.3 12.0-16.0 [facility] HospitalCvmolaeKLUPEVJCNF0938-51-12 17:02:00 Test Item Value Reference Range Interpretation Comments RBC (test code = RBC) 3.24 4.20-5.40 [facility] HospitalGhlvoolTNSMSVFWML5304-76-22 17:02:00 Test Item Value Reference Range Interpretation Comments MCH (test code = MCH) 28.8 pg 27.0-31.0 [facility] HospitalFycguicIFCSNIAJYX0270-83-03 17:02:00 Test Item Value Reference Range Interpretation Comments MCV (test code = MCV) 88.8 80.0-98.0 [facility] HospitalGevudksHEOUKHKEDC7225-06-52 17:02:00 Test Item Value Reference Range Interpretation Comments Platelet (test code = Platelet) 235 133-450 [facility] HospitalAkajdtuFLRHWILIYL7471-17-31 17:02:00 Test Item Value Reference Range Interpretation Comments RDW (test code = RDW) 15.2 11.5-14.5 [facility] HospitalFdygnbeXLKPTBHMXJ7723-89-43 17:02:00 Test Item Value Reference Range Interpretation Comments MCHC (test code = MCHC) 32.4 32.0-36.0 [facility] HospitalVvjiqcxNIARJJLGGO0622-30-22 17:02:00 Test Item Value Reference Range Interpretation Comments MPV (test code = MPV) 9.3 7.4-10.4 [facility] HospitalDppeerrUXWKJMYJYK2684-24-86 17:02:00 Test Item Value Reference Range Interpretation Comments WBC (test code = WBC) 6.8 3.7-10.4 [facility] AND [id number] 17:02:00 Test Item Value Reference Range Interpretation Comments UA Color (test code = Yellow *NA*(06/17/15 UA Color) 12:02 PM) [facility] AND [id number] 17:02:00 Test Item Value Reference Range Interpretation Comments UA Turbidity (test code = Clear (06/17/15 12:02 UA Turbidity) PM) [facility] AND [id number] 17:02:00 Test Item Value Reference Range Interpretation Comments UA Leuk Est (test Negative (06/17/15 12:02 code = UA Leuk Est) PM) [facility] AND [id number] 17:02:00 Test Item Value Reference Range Interpretation Comments UA Urobilinogen (test code = UA 0.2 0.1-1.0 Urobilinogen) [facility] AND [id number] 17:02:00 Test Item Value Reference Range Interpretation Comments UA Blood (test code = Moderate *ABN*(06/17/15 UA Blood) 12:02 PM) [facility] AND [id number] 17:02:00 Test Item Value Reference Range Interpretation Comments UA Nitrite (test code Negative (06/17/15 12:02 = UA Nitrite) PM) [facility] AND [id number] 17:02:00 Test Item Value Reference Range Interpretation Comments UA Bili (test code = Negative *NA*(06/17/15 UA Bili) 12:02 PM) [facility] AND [id number] 17:02:00 Test Item Value Reference Range Interpretation Comments UA Glucose (test code = UA Glucose) 250 mg/dL [facility] AND [id number] 17:02:00 Test Item Value Reference Range Interpretation Comments UA Protein (test code = UA >=300 mg/dL Protein) [facility] AND [id number] 17:02:00 Test Item Value Reference Range Interpretation Comments UA Ketones (test code Negative *NA*(06/17/15 = UA Ketones) 12:02 PM) [facility] AND [id number] 17:02:00 Test Item Value Reference Range Interpretation Comments UA pH (test code = UA pH) 6.5 1 5.0-8.0 [facility] [id number] 17:02:00 Test Item Value Reference Range Interpretation Comments UA Spec Grav (test code = UA Spec 1.020 1 Grav) [facility] PHBXO4312-09-28 17:02:00 Test Item Value Reference Range Interpretation Comments UA Mucus (test code = UA Mucus) Few /LPF [facility] [id number] 17:02:00 Test Item Value Reference Range Interpretation Comments UA Sq Epi (test code = UA Sq Epi) Few /LPF [facility] [id number] 17:02:00 Test Item Value Reference Range Interpretation Comments UA RBC (test code 11-20 /HPF See_Comment [Automate d message] The = UA RBC) system which ge nerated this result tra nsmitted reference range : <=2. The reference range was not used to interpr et this result as normal/abnormal . [facility] [id number] 17:02:00 Test Item Value Reference Range Interpretation Comments UA WBC (test code = UA WBC) 6-10 /HPF [facility] [id number] 17:02:00 Test Item Value Reference Range Interpretation Comments UA Bacteria (test code = UA Few /HPF Bacteria) [facility] [id number] 17:02:00 Test Item Value Reference Range Interpretation Comments U Preg (test code = U Negative (06/17/15 12:02 Preg) PM) [facility] HermannCARDIAC MUFTWHN4889-62-20 17:02:000.10[facility]annCHEM PANEL 2015-06-17 17:02:46096Mhdtzgds HermannCHEM AMKTC0681-30-00 17:02:007[facility] HermannCHEM NJEEP6731-90-64 17:02:005.4[facility]annCHEM LDVBQ0660-77-62 17:02:000.3[facility]annCHE[facility] PJRUJ9224-92-82 17:02:0012.1[facility]annCHE[facility] GDBLS0238-63-74 17:02:007[facility]annCHE[facility] APZMS0989-17-07 17:02:0045[facility]annCHE[facility] ACLZI0996-67-09 17:02:001.8[facility]annCHE[facility] MEPRY7441-54-31 17:02:0037[facility]annCHEM RWOOA3706-43-62 17:02:000.3[facility]annCHEM EARPE9080-36-24 17:02:0084[facility]annCHEM ZLFUP8780-39-24 17:02:007.2 [facility]annCHE[facility] LBAKU9025-87-09 17:02:008.4[facility]annCHEM PANEL 2015-06-17 17:02:87854Vggfdpaj HermannCHEM QFXLF7703-74-27 17:02:005.1[facility]annCHEM DCESQ8018-94-61 17:02:38120Ristxmzl [facility]annCHE[facility] CPHFM7829-74-26 17:02:0021[facility]annCHEM EWMGC5777-73-68 17:02:55248Lafdagqw [facility]annCHE[facility] PRGOW6499-45-51 17:02:007.50[facility]annCHEM CZNLA8397-18-75 17:02:0052 [facility] AywzwdoSKLCHBKSRM4574-68-74 17:02:000.4[facility]annHEMATOLOGY 2015-06-17 17:02:000.0[facility] PspjojtKXNNWPNPHM6813-21-47 17:02:000.1[facility] LmwtnudBEVLJDSOVC6506-90-76 17:02:0027.3[facility] QktamslTXSBBIOSNV9159-04-40 17:02:0065.3[facility] FwptuftROQCAKYFDM7366-47-68 17:02:004.4[facility] WXMLWDIHPY5914-74-59 17:02:000.5[facility] YihmeegLMTVVFKRXU6230-04-17 17:02:001.3 [facility] QuazhioTLMSXOAPRB5455-36-63 17:02:005.6[facility] HermannHEMATOLOGY 2015-06-17 17:02:001.9[facility] NtiazwoZUSKBUZHCU4461-12-35 17:02:0028.8[facility] StxbosyIRUYALQTGB0059-06-44 17:02:009.3[facility] OyelbzhIRYUODAMFM4076-04-06 17:02:003.24[facility] GpfdbueUBSAQTDGXM0662-64-57 17:02:00 Test Item Value Reference Range Interpretation Comments MCH (test code = MCH) 28.8 pg 27.0-31.0 [facility] LvkidttRQVWEFCFNF9117-41-20 17:02:0088.8[facility] HermannHEMATOLOGY 2015-06-17 17:02:67057Iutgvsvz SgeimbaIIXLVHHNNU4961-74-22 17:02:0015.2[facility] UzjlbijWFKTMABZTR3416-41-92 17:02:0032.4[facility] JajyrjuASKLVHVERV0230-72-20 17:02:009.3[facility] MzxrgydKSDZWXBHVR0391-64-94 17:02:006.8[facility] TWQAR4046-77-72 17:02:00Yellow *NA*(06/17/15 12:02 PM)[facility] ABCTF2001-25-83 17:02:00Clear (06/17/15 12:02 PM)[facility] QRZJO1248-55-44 17:02:00Negative (06/17/15 12:02 PM)[facility] ZUQHA0940-67-17 17:02:000.2[facility] SGQVA9829-49-89 17:02:00 Moderate *ABN*(06/17/15 12:02 PM)[facility] YZUCA2645-55-66 17:02:00Negative (06/17/15 12:02 PM)[facility] DIFOZ1958-55-30 17:02:00Negative *NA*(06/17/15 12:02 PM)[facility] CQBGT6275-06-72 17:02:00Negative *NA*(06/17/15 12:02 PM)[facility] BRDMU3472-51-65 17:02:00 Test Item Value Reference Range Interpretation Comments UA pH (test code = UA pH) 6.5 1 5.0-8.0 [facility] WZFWI9450-02-80 17:02:00 Test Item Value Reference Range Interpretation Comments UA Spec Grav (test code = UA Spec 1.020 1 Grav) [facility] RZNF0165-18-16 17:02:00Negative (06/17/15 12:02 PM)[facility]annCARDIAC PWBIGTD2337-44-19 17:02:000.10[facility] HermannCHEM PANEL 2015-06-17 17:02:62351Cjciazsb HermannCHEM UOKEQ2056-68-22 17:02:007[facility]annCHEM AYTSI9525-55-48 17:02:005.4[facility]annCHEM UTVRL5799-48-99 17:02:000.3[facility]annCHEM FJWIS1190-34-64 17:02:0012.1[facility]annCHEM TEQSV6424-14-28 17:02:007[facility]annCHEM GTQTU4797-48-63 17:02:0045[facility]annCHE[facility] YWNAR9652-50-87 17:02:001.8[facility]annCHEM RHNBX9558-42-83 17:02:0037[facility]annCHEM COEWV2287-26-23 17:02:000.3[facility]annCHEM NHOJU6079-12-95 17:02:0084[facility] HermannCHEM WBXZU3729-31-18 17:02:007.2 [facility]annCHE[facility] OPYJE0269-36-20 17:02:008.4[facility] HermannCHEM PANEL 2015-06-17 17:02:96913Yycvfcni [facility]annCHEM QXLYE8128-01-62 17:02:005.1[facility] HermannCHEM CCUCU7849-55-86 17:02:44287Jxefmhwm [facility]annCHEM SYCTO3505-00-81 17:02:0021[facility] HermannCHEM RJFQD4644-65-47 17:02:69229Bqiknoqj [facility]CHE[facility] FZWRQ1996-70-25 17:02:007.50[facility]annCHEM CQMQP9986-69-72 17:02:0052 [facility] BzthufrAGGKDRUFTJ5494-72-35 17:02:000.4[facility] HermannHEMATOLOGY 2015-06-17 17:02:000.0[facility] WsgzwmrSNDRDLLBVA9470-82-78 17:02:000.1[facility] KejapceBEHMAPZNET2965-58-36 17:02:0027.3[facility] ClcnjlzWSOLATUEJM7901-15-08 17:02:0065.3[facility] BwidohpBZABTORLJP8756-67-37 17:02:004.4[facility] Yovani YHTEPIOOCI1911-61-37 17:02:000.5[facility] OvjeiewNQIYZECHPW9974-67-19 17:02:001.3 [facility] WoaboltJLXGDURKIP5030-54-93 17:02:005.6[facility] HermannHEMATOLOGY 2015-06-17 17:02:001.9[facility] AmussfvKKIAKPPPCX2021-02-39 17:02:0028.8[facility] DevdomwZCILRUKFCD3994-33-38 17:02:009.3[facility] DnorvzpWBUKZKVQRK1425-89-74 17:02:003.24[facility] KneombtSRTCFOBAQV7029-52-47 17:02:00 Test Item Value Reference Range Interpretation Comments MCH (test code = MCH) 28.8 pg 27.0-31.0 [facility] DpwobduSQHWHNPLVA2525-23-41 17:02:0088.8[facility] HermannHEMATOLOGY 2015-06-17 17:02:22354Vkgphbdm MhlnzgsLQODVGLTWV7190-97-95 17:02:0015.2[facility] JdmtnwpSGAWAEAHBI9063-46-17 17:02:0032.4[facility] HpavmihKRAJXYFRRU8949-28-71 17:02:009.3[facility] UpqkhjpWRWAYGPFVE6324-19-74 17:02:006.8[facility] EWLHY9687-31-23 17:02:00Yellow *NA*(06/17/15 12:02 PM)[facility] FSRZE6570-51-40 17:02:00Clear (06/17/15 12:02 PM)[facility] CFDOV2480-07-20 17:02:00Negative (06/17/15 12:02 PM)[facility] GLPPD8990-23-04 17:02:000.2[facility] XGZGO6118-61-94 17:02:00 Moderate *ABN*(06/17/15 12:02 PM)[facility] BBKKT0317-35-45 17:02:00Negative (06/17/15 12:02 PM)[facility] ZYUZB7867-51-98 17:02:00Negative *NA*(06/17/15 12:02 PM)[facility] PZBJZ0237-95-58 17:02:00Negative *NA*(06/17/15 12:02 PM)[facility] QDAEK5782-65-03 17:02:00 Test Item Value Reference Range Interpretation Comments UA pH (test code = UA pH) 6.5 1 5.0-8.0 [facility] TWIHI0643-83-61 17:02:00 Test Item Value Reference Range Interpretation Comments UA Spec Grav (test code = UA Spec 1.020 1 Grav) [facility] QGTY5184-61-34 17:02:00Negative (06/17/15 12:02 PM)[facility] HermannCARDIAC HIDKLVM9520-27-51 17:02:00 Test Item Value Reference Range Interpretation Comments Troponin-I (test code 0.10 See_Comment [Auto mated message] The = Troponin-I) system which g enerated this result transmit marsha reference range : <=0.40. The reference r nabor was not used to interpr et this result as charis l/abnormal. [facility] IntroNicheannCHEM UYBEB6615-50-29 17:02:00 Test Item Value Reference Range Interpretation Comments Lipase Lvl (test code = Lipase Lvl) 314 73393 [facility]annCHE[facility] WMTVU3223-83-33 17:02:00 Test Item Value Reference Range Interpretation Comments B/C Ratio (test code = B/C Ratio) 7 6-25 [facility]annCHE[facility] OYSXK7663-47-28 17:02:00 Test Item Value Reference Range Interpretation Comments Globulin (test code = Globulin) 5.4 2.0-4.0 [facility]annCHE[facility] YYENX4557-42-49 17:02:00 Test Item Value Reference Range Interpretation Comments A/G Ratio (test code = A/G Ratio) 0.3 0.7-1.6 [facility]roNicheannCHEM GINLL1239-18-23 17:02:00 Test Item Value Reference Range Interpretation Comments AGAP (test code = AGAP) 12.1 10.0-20.0 [facility]2016-04-06 17:02:00 Test Item Value Reference Range Interpretation Comments eGFR (test code = eGFR) 7 [facility]2016-04-06 17:02:00 Test Item Value Reference Range Interpretation Comments AST (test code = AST) 45 See_Comment [Auto mated message] The system which ge nerated this result transmit marsha reference range : <=37. The reference range was not used to interpr et this result as charis l/abnormal. [facility]2016-04-06 17:02:00 Test Item Value Reference Range Interpretation Comments Albumin Lvl (test code = Albumin Lvl) 1.8 3.5-5.0 [facility]2016-04-06 17:02:00 Test Item Value Reference Range Interpretation Comments ALT (test code = ALT) 37 See_Comment [Auto mated message] The system which ge nerated this result transmit marsha reference range : <=65. The reference range was not used to interpr et this result as charis l/abnormal. [facility]2016-04-06 17:02:00 Test Item Value Reference Range Interpretation Comments Bili Total (test code = Bili Total) 0.3 0.2-1.3 [facility]2016-04-06 17:02:00 Test Item Value Reference Range Interpretation Comments Alk Phos (test code = Alk Phos) 84 39-136 [facility]2016-04-06 17:02:00 Test Item Value Reference Range Interpretation Comments Total Protein (test code = Total 7.2 6.4-8.4 Protein) [facility]2016-04-06 17:02:00 Test Item Value Reference Range Interpretation Comments Calcium Lvl (test code = Calcium Lvl) 8.4 8.5-10.5 [facility]2016-04-06 17:02:00 Test Item Value Reference Range Interpretation Comments Glucose Lvl (test code = Glucose Lvl) 106 70-99 [facility]2016-04-06 17:02:00 Test Item Value Reference Range Interpretation Comments Potassium Lvl (test code = Potassium 5.1 3.5-5.1 Lvl) [facility]2016-04-06 17:02:00 Test Item Value Reference Range Interpretation Comments Chloride Lvl (test code = Chloride Lvl) 109 95-109 [facility]2016-04-06 17:02:00 Test Item Value Reference Range Interpretation Comments CO2 (test code = CO2) 21 24-32 [facility]2016-04-06 17:02:00 Test Item Value Reference Range Interpretation Comments Sodium Lvl (test code = Sodium Lvl) 137 135-145 [facility]2016-04-06 17:02:00 Test Item Value Reference Range Interpretation Comments Creatinine Lvl (test code = Creatinine 7.50 0.50-1.40 Lvl) [facility]2016-04-06 17:02:00 Test Item Value Reference Range Interpretation Comments BUN (test code = BUN) 52 7-22 [facility] HospitalWarrkroCYLEDXFEQB8080-75-35 17:02:00 Test Item Value Reference Range Interpretation Comments Monocytes # (test code 0.4 See_Comment [Aut omated message] The = Monocytes #) system which generated this result tra nsmitted reference range : <=0.8. The reference r nabor was not used to int erpret this result as normal/abnormal . [facility] HospitalPwhdvygSNETMGFGIR6269-00-82 17:02:00 Test Item Value Reference Range Interpretation Comments Basophils # (test code 0.0 See_Comment [Aut omated message] The = Basophils #) system which generated this result tra nsmitted reference range : <=0.2. The reference r nabor was not used to int erpret this result as normal/abnormal . [facility] HospitalUkfluicNAKWIJCTMU4536-52-53 17:02:00 Test Item Value Reference Range Interpretation Comments Eosinophils # (test code 0.1 See_Comment [A utomated message] The = Eosinophils #) system whic h generated this result tra nsmitted reference range : <=0.5. The reference r nabor was not used to int erpret this result as normal/abnormal . [facility] HospitalColxiymQJYPBOGPWR4530-58-62 17:02:00 Test Item Value Reference Range Interpretation Comments Lymphocytes (test code = Lymphocytes) 27.3 20.0-40.0 [facility] HospitalSbptchdZXGQDBPYAW4037-34-11 17:02:00 Test Item Value Reference Range Interpretation Comments Segs (test code = Segs) 65.3 45.0-75.0 [facility] HospitalGnsaumzKABFADNTUM6322-35-99 17:02:00 Test Item Value Reference Range Interpretation Comments Segs-Bands # (test code = Segs-Bands #) 4.4 1.5-8.1 [facility] HospitalJdtzgkcRITRYPZOQQ9560-06-81 17:02:00 Test Item Value Reference Range Interpretation Comments Basophils (test code = 0.5 See_Comment [Aut omated message] The Basophils) system which ge nerated this result tra nsmitted reference range : <=1.0. The reference r nabor was not used to int erpret this result as normal/abnormal . [facility] HospitalYjchcrvMQQHIFLUNK5100-08-21 17:02:00 Test Item Value Reference Range Interpretation Comments Eosinophils (test code = 1.3 See_Comment [A utomated message] The Eosinophils) system which ge nerated this result tra nsmitted reference range : <=4.0. The reference r nabor was not used to int erpret this result as normal/abnormal . [facility] HospitalDprqzibORBPMLGNDB6144-22-79 17:02:00 Test Item Value Reference Range Interpretation Comments Monocytes (test code = Monocytes) 5.6 2.0-12.0 [facility] HospitalAsmylcdZPBXTKVZWT6867-75-65 17:02:00 Test Item Value Reference Range Interpretation Comments Lymphocytes # (test code = Lymphocytes 1.9 1.0-5.5 #) [facility] HospitalYfwukkaBGSLCBABRF1860-65-00 17:02:00 Test Item Value Reference Range Interpretation Comments Hct (test code = Hct) 28.8 36.0-48.0 [facility] HospitalNeizqlrWCTOBHJGME8341-50-79 17:02:00 Test Item Value Reference Range Interpretation Comments Hgb (test code = Hgb) 9.3 12.0-16.0 [facility] HospitalSrkzlpsTGFLSIEVCW2783-24-09 17:02:00 Test Item Value Reference Range Interpretation Comments RBC (test code = RBC) 3.24 4.20-5.40 [facility] HospitalKbxqvluEVOLTHYWEC4482-84-15 17:02:00 Test Item Value Reference Range Interpretation Comments MCH (test code = MCH) 28.8 pg 27.0-31.0 [facility] HospitalMwdbexoCQPHVRDKGB6857-30-36 17:02:00 Test Item Value Reference Range Interpretation Comments MCV (test code = MCV) 88.8 80.0-98.0 [facility] HospitalJdrwvasACNJOARHNM8588-32-88 17:02:00 Test Item Value Reference Range Interpretation Comments Platelet (test code = Platelet) 235 133-450 [facility] HospitalJjatakdKWEJJETPLC3999-88-20 17:02:00 Test Item Value Reference Range Interpretation Comments RDW (test code = RDW) 15.2 11.5-14.5 [facility] HospitalUjkgcvxUZZGPMPZQU1271-82-66 17:02:00 Test Item Value Reference Range Interpretation Comments MCHC (test code = MCHC) 32.4 32.0-36.0 [facility] HospitalXvnzaqcMQNFZFQSFU9499-34-48 17:02:00 Test Item Value Reference Range Interpretation Comments MPV (test code = MPV) 9.3 7.4-10.4 [facility] HospitalYzeodnzEUUMOAEULZ3218-85-59 17:02:00 Test Item Value Reference Range Interpretation Comments WBC (test code = WBC) 6.8 3.7-10.4 [facility] AND [id number] 17:02:00 Test Item Value Reference Range Interpretation Comments UA Color (test code = Yellow *NA*(06/17/15 UA Color) 12:02 PM) [facility] AND [id number] 17:02:00 Test Item Value Reference Range Interpretation Comments UA Turbidity (test code = Clear (06/17/15 12:02 UA Turbidity) PM) [facility] AND [id number] 17:02:00 Test Item Value Reference Range Interpretation Comments UA Leuk Est (test Negative (06/17/15 12:02 code = UA Leuk Est) PM) [facility] AND [id number] 17:02:00 Test Item Value Reference Range Interpretation Comments UA Urobilinogen (test code = UA 0.2 0.1-1.0 Urobilinogen) [facility] AND [id number] 17:02:00 Test Item Value Reference Range Interpretation Comments UA Blood (test code = Moderate *ABN*(06/17/15 UA Blood) 12:02 PM) [facility] AND [id number] 17:02:00 Test Item Value Reference Range Interpretation Comments UA Nitrite (test code Negative (06/17/15 12:02 = UA Nitrite) PM) [facility] [id number] 17:02:00 Test Item Value Reference Range Interpretation Comments UA Bili (test code = Negative *NA*(06/17/15 UA Bili) 12:02 PM) [facility] [id number] 17:02:00 Test Item Value Reference Range Interpretation Comments UA Glucose (test code = UA Glucose) 250 mg/dL [facility] [id number] 17:02:00 Test Item Value Reference Range Interpretation Comments UA Protein (test code = UA >=300 mg/dL Protein) [facility] [id number] 17:02:00 Test Item Value Reference Range Interpretation Comments UA Ketones (test code Negative *NA*(06/17/15 = UA Ketones) 12:02 PM) [facility] [id number] 17:02:00 Test Item Value Reference Range Interpretation Comments Troponin-I (test code 0.10 See_Comment [Auto mated message] The = Troponin-I) system which g enerated this result transmit marsha reference range : <=0.40. The reference r nabor was not used to interpr et this result as charis l/abnormal. [facility] Owned it [id number] 17:02:00 Test Item Value Reference Range Interpretation Comments Lipase Lvl (test code = Lipase Lvl) 314 73-393 [facility] Owned it [id number] 17:02:00 Test Item Value Reference Range Interpretation Comments B/C Ratio (test code = B/C Ratio) 7 6-25 [facility] Owned it [id number] 17:02:00 Test Item Value Reference Range Interpretation Comments Globulin (test code = Globulin) 5.4 2.0-4.0 [facility] Owned it [id number] 17:02:00 Test Item Value Reference Range Interpretation Comments A/G Ratio (test code = A/G Ratio) 0.3 0.7-1.6 [facility] Owned it [id number] 17:02:00 Test Item Value Reference Range Interpretation Comments AGAP (test code = AGAP) 12.1 10.0-20.0 [facility] Owned it [id number] 17:02:00 Test Item Value Reference Range Interpretation Comments eGFR (test code = eGFR) 7 [facility]2016-04-06 17:02:00 Test Item Value Reference Range Interpretation Comments AST (test code = AST) 45 See_Comment [Auto mated message] The system which ge nerated this result transmit marsha reference range : <=37. The reference range was not used to interpr et this result as charis l/abnormal. [facility]2016-04-06 17:02:00 Test Item Value Reference Range Interpretation Comments Albumin Lvl (test code = Albumin Lvl) 1.8 3.5-5.0 [facility]2016-04-06 17:02:00 Test Item Value Reference Range Interpretation Comments ALT (test code = ALT) 37 See_Comment [Auto mated message] The system which ge nerated this result transmit marsha reference range : <=65. The reference range was not used to interpr et this result as charis l/abnormal. [facility]2016-04-06 17:02:00 Test Item Value Reference Range Interpretation Comments Bili Total (test code = Bili Total) 0.3 0.2-1.3 [facility]2016-04-06 17:02:00 Test Item Value Reference Range Interpretation Comments Alk Phos (test code = Alk Phos) 84 39-136 [facility]2016-04-06 17:02:00 Test Item Value Reference Range Interpretation Comments Total Protein (test code = Total 7.2 6.4-8.4 Protein) [facility]2016-04-06 17:02:00 Test Item Value Reference Range Interpretation Comments Calcium Lvl (test code = Calcium Lvl) 8.4 8.5-10.5 [facility]2016-04-06 17:02:00 Test Item Value Reference Range Interpretation Comments Glucose Lvl (test code = Glucose Lvl) 106 70-99 [facility]2016-04-06 17:02:00 Test Item Value Reference Range Interpretation Comments Potassium Lvl (test code = Potassium 5.1 3.5-5.1 Lvl) [facility]2016-04-06 17:02:00 Test Item Value Reference Range Interpretation Comments Chloride Lvl (test code = Chloride Lvl) 109 95-109 [facility]2016-04-06 17:02:00 Test Item Value Reference Range Interpretation Comments CO2 (test code = CO2) 21 24-32 [facility]2016-04-06 17:02:00 Test Item Value Reference Range Interpretation Comments Sodium Lvl (test code = Sodium Lvl) 137 135-145 [facility]2016-04-06 17:02:00 Test Item Value Reference Range Interpretation Comments Creatinine Lvl (test code = Creatinine 7.50 0.50-1.40 Lvl) [facility]2016-04-06 17:02:00 Test Item Value Reference Range Interpretation Comments BUN (test code = BUN) 52 7-22 [facility] HospitalKuemypqUTBPCAHBXF4015-00-08 17:02:00 Test Item Value Reference Range Interpretation Comments Monocytes # (test code 0.4 See_Comment [Aut omated message] The = Monocytes #) system which generated this result tra nsmitted reference range : <=0.8. The reference r nabor was not used to int erpret this result as normal/abnormal . [facility] HospitalBebmbctQNOYROHVCV7570-99-16 17:02:00 Test Item Value Reference Range Interpretation Comments Basophils # (test code 0.0 See_Comment [Aut omated message] The = Basophils #) system which generated this result tra nsmitted reference range : <=0.2. The reference r nabor was not used to int erpret this result as normal/abnormal . [facility] HospitalZbhzmrlQFPXZYWJPN2255-81-27 17:02:00 Test Item Value Reference Range Interpretation Comments Eosinophils # (test code 0.1 See_Comment [A utomated message] The = Eosinophils #) system whic h generated this result tra nsmitted reference range : <=0.5. The reference r nabor was not used to int erpret this result as normal/abnormal . [facility] HospitalNpogpqdMNSKSIOBUO9835-74-79 17:02:00 Test Item Value Reference Range Interpretation Comments Lymphocytes (test code = Lymphocytes) 27.3 20.0-40.0 [facility] HospitalJtbtqxoMOURBVKJNY4869-11-74 17:02:00 Test Item Value Reference Range Interpretation Comments Segs (test code = Segs) 65.3 45.0-75.0 [facility] HospitalDnupckaXILOJADVEC0632-37-28 17:02:00 Test Item Value Reference Range Interpretation Comments Segs-Bands # (test code = Segs-Bands #) 4.4 1.5-8.1 [facility] HospitalOhnpfafVVZJNVYSZM8993-30-43 17:02:00 Test Item Value Reference Range Interpretation Comments Basophils (test code = 0.5 See_Comment [Aut omated message] The Basophils) system which ge nerated this result tra nsmitted reference range : <=1.0. The reference r nabor was not used to int erpret this result as normal/abnormal . [facility] HospitalDhvgwjwGTECUWNNTA2748-89-83 17:02:00 Test Item Value Reference Range Interpretation Comments Eosinophils (test code = 1.3 See_Comment [A utomated message] The Eosinophils) system which ge nerated this result tra nsmitted reference range : <=4.0. The reference r nabor was not used to int erpret this result as normal/abnormal . [facility] HospitalMvstdsaUBWODWMYIY7163-22-79 17:02:00 Test Item Value Reference Range Interpretation Comments Monocytes (test code = Monocytes) 5.6 2.0-12.0 [facility] HospitalWaaxrpfXXBEFNNOVN5563-33-59 17:02:00 Test Item Value Reference Range Interpretation Comments Lymphocytes # (test code = Lymphocytes 1.9 1.0-5.5 #) [facility] HospitalPcteeynVYMUOODRLQ3697-58-32 17:02:00 Test Item Value Reference Range Interpretation Comments Hct (test code = Hct) 28.8 36.0-48.0 [facility] HospitalGckmhikTKINHTKJDA3436-44-91 17:02:00 Test Item Value Reference Range Interpretation Comments Hgb (test code = Hgb) 9.3 12.0-16.0 [facility] HospitalUjltclqXGUKGPTJVW2143-45-85 17:02:00 Test Item Value Reference Range Interpretation Comments RBC (test code = RBC) 3.24 4.20-5.40 [facility] HospitalJvvjlpfKJCSIWVFTF4251-35-49 17:02:00 Test Item Value Reference Range Interpretation Comments MCH (test code = MCH) 28.8 pg 27.0-31.0 [facility] HospitalUsoennxSVMSAMPIPJ2921-31-40 17:02:00 Test Item Value Reference Range Interpretation Comments MCV (test code = MCV) 88.8 80.0-98.0 [facility] HospitalCifqkstBTSZMJKFPB9493-98-33 17:02:00 Test Item Value Reference Range Interpretation Comments Platelet (test code = Platelet) 235 133-450 [facility] HospitalKnbvtesIVDSOAWEMN1142-06-91 17:02:00 Test Item Value Reference Range Interpretation Comments RDW (test code = RDW) 15.2 11.5-14.5 [facility] HospitalSitmtplDWSVIIXOLU4726-46-90 17:02:00 Test Item Value Reference Range Interpretation Comments MCHC (test code = MCHC) 32.4 32.0-36.0 [facility] HospitalDfjoznaAQIUUIRYFE8358-42-89 17:02:00 Test Item Value Reference Range Interpretation Comments MPV (test code = MPV) 9.3 7.4-10.4 [facility] HospitalZqdjzmrMASUJMDSHM0079-01-49 17:02:00 Test Item Value Reference Range Interpretation Comments WBC (test code = WBC) 6.8 3.7-10.4 [facility] AND [id number] 17:02:00 Test Item Value Reference Range Interpretation Comments UA Color (test code = Yellow *NA*(06/17/15 UA Color) 12:02 PM) [facility] AND [id number] 17:02:00 Test Item Value Reference Range Interpretation Comments UA Turbidity (test code = Clear (06/17/15 12:02 UA Turbidity) PM) [facility] AND [id number] 17:02:00 Test Item Value Reference Range Interpretation Comments UA Leuk Est (test Negative (06/17/15 12:02 code = UA Leuk Est) PM) [facility] AND [id number] 17:02:00 Test Item Value Reference Range Interpretation Comments UA Urobilinogen (test code = UA 0.2 0.1-1.0 Urobilinogen) [facility] AND [id number] 17:02:00 Test Item Value Reference Range Interpretation Comments UA Blood (test code = Moderate *ABN*(06/17/15 UA Blood) 12:02 PM) [facility] AND [id number] 17:02:00 Test Item Value Reference Range Interpretation Comments UA Nitrite (test code Negative (06/17/15 12:02 = UA Nitrite) PM) [facility] AND [id number] 17:02:00 Test Item Value Reference Range Interpretation Comments UA Bili (test code = Negative *NA*(06/17/15 UA Bili) 12:02 PM) [facility] AND [id number] 17:02:00 Test Item Value Reference Range Interpretation Comments UA Glucose (test code = UA Glucose) 250 mg/dL [facility] AND [id number] 17:02:00 Test Item Value Reference Range Interpretation Comments UA Protein (test code = UA >=300 mg/dL Protein) [facility] AND [id number] 17:02:00 Test Item Value Reference Range Interpretation Comments UA Ketones (test code Negative *NA*(06/17/15 = UA Ketones) 12:02 PM) [facility] AND [id number] 17:02:00 Test Item Value Reference Range Interpretation Comments UA pH (test code = UA pH) 6.5 1 5.0-8.0 [facility] [id number] 17:02:00 Test Item Value Reference Range Interpretation Comments UA Spec Grav (test code = UA Spec 1.020 1 Grav) [facility] AND [id number] 17:02:00 Test Item Value Reference Range Interpretation Comments UA Mucus (test code = UA Mucus) Few /LPF [facility] [id number] 17:02:00 Test Item Value Reference Range Interpretation Comments UA Sq Epi (test code = UA Sq Epi) Few /LPF [facility] [id number] 17:02:00 Test Item Value Reference Range Interpretation Comments UA RBC (test code 11-20 /HPF See_Comment [Automate d message] The = UA RBC) system which ge nerated this result tra nsmitted reference range : <=2. The reference range was not used to interpr et this result as normal/abnormal . [facility] [id number] 17:02:00 Test Item Value Reference Range Interpretation Comments UA WBC (test code = UA WBC) 6-10 /HPF [facility] AND [id number] 17:02:00 Test Item Value Reference Range Interpretation Comments UA Bacteria (test code = UA Few /HPF Bacteria) [facility] [id number] 17:02:00 Test Item Value Reference Range Interpretation Comments U Preg (test code = U Negative (06/17/15 12:02 Preg) PM) [facility] YVRLZQC4441-99-29 17:02:000.10[facility]ann[facility] PANEL 2015-[facility]-17 17:02:55921Ancnzdea HermannCHEM MDWBX1852-03-28 17:02:007[facility]annCHEM KCBEA5421-19-14 17:02:005.4[facility]annCHEM UFUZB9526-05-76 17:02:000.3[facility]annCHEM ITYUV7337-16-80 17:02:0012.1[facility]annCHEM PPTQV6113-25-06 17:02:007[facility]annCHEM IQGVT6546-13-42 17:02:0045[facility]annCHEM OJVSH9853-58-86 17:02:001.8[facility]annCHEM YAPVI2175-51-45 17:02:0037[facility]annCHEM BLAPY8551-71-09 17:02:000.3[facility]annCHEM UAYXJ6438-55-71 17:02:0084[facility]annCHEM BYWFM9883-15-11 17:02:007.2 [facility]annCHEM CYRUX6236-03-37 17:02:008.4[facility]annCHEM PANEL 2015-06-17 17:02:53783Pmbcoycm HermannCHEM RWQLO3567-45-97 17:02:005.1[facility]annCHEM NTEPA1113-17-45 17:02:12008Vdhtkacb HermannCHEM OIKQP1443-53-51 17:02:0021[facility]annCHEM FTWJS1788-82-46 17:02:00032Chmiazdb HermannCHEM UMZWB4271-92-04 17:02:007.50[facility]annCHEM NLFQK7172-55-62 17:02:0052 [facility] CmfzutjYTHUYUBOTT3378-22-24 17:02:000.4[facility]annHEMATOLOGY 2015-06-17 17:02:000.0[facility] PgzjxbsKLOECRRRPL6210-81-51 17:02:000.1[facility] BmqrqxjWKXMLOEYLK4991-60-71 17:02:0027.3[facility] GmxnpapTZVLXQHBHC6124-71-52 17:02:0065.3[facility] CwihkgvDNHSMGWGKV5704-93-52 17:02:004.4[facility] Yovani YYMRRJSVFL6747-59-06 17:02:000.5[facility] PmgfytyQTURWZLLNV8851-82-70 17:02:001.3 [facility] UpiaumeZONBCJXIHP9203-30-15 17:02:005.6[facility]annHEMATOLOGY 2015-06-17 17:02:001.9[facility] KzxratjOTJGNDDNNS4446-63-96 17:02:0028.8[facility] JjgypboYXXNGNFTMX6084-85-56 17:02:009.3[facility] FxmhopiXOLEJHULPE4295-86-28 17:02:003.24[facility] DrjtymyUOUSTUCHWC9809-81-25 17:02:00 Test Item Value Reference Range Interpretation Comments MCH (test code = MCH) 28.8 pg 27.0-31.0 [facility] FywnpwpTDIQUHXPFA8192-82-14 17:02:0088.8[facility]annHEMATOLOGY 2015-06-17 17:02:24952Owqekvht XnzxpslSCIHFFFZQF8531-92-22 17:02:0015.2[facility] WsjfkfhKDDZGXCPSD4889-36-69 17:02:0032.4[facility] WbaayanBITQSRWWNE5289-36-46 17:02:009.3[facility] TyupympURNNIBGAMC7350-85-27 17:02:006.8[facility]ann[facility] AND PYLPX1364-54-67 17:02:00Yellow *NA*(06/17/15 12:02 PM)[facility] YAXBN9453-00-08 17:02:00Clear (06/17/15 12:02 PM)[facility] MCEBD9245-37-23 17:02:00Negative (06/17/15 12:02 PM)[facility] RDVFN1477-24-70 17:02:000.2[facility] AND AZOKI0688-34-87 17:02:00 Moderate *ABN*(06/17/15 12:02 PM)[facility] IPJIH9304-20-01 17:02:00Negative (06/17/15 12:02 PM)[facility] CVNGB4724-62-22 17:02:00Negative *NA*(06/17/15 12:02 PM)[facility] IHLIP9175-43-96 17:02:00Negative *NA*(06/17/15 12:02 PM)[facility] TJQFL2645-26-68 17:02:00 Test Item Value Reference Range Interpretation Comments UA pH (test code = UA pH) 6.5 1 5.0-8.0 [facility] [id number] 17:02:00 Test Item Value Reference Range Interpretation Comments UA Spec Grav (test code = UA Spec 1.020 1 Grav) [facility] [id number] 17:02:00Negative (06/17/15 12:02 PM)[facility]annCARDIAC USDJBZE5649-50-25 17:02:000.10[facility]annCHEM PANEL 2015-06-17 17:02:22232Picbzoom HermannCHEM DARUW9684-07-61 17:02:007[facility]annCHEM JSEJZ2451-26-45 17:02:005.4[facility]annCHEM FDCCT6534-35-24 17:02:000.3[facility]annCHEM UAINO0513-66-89 17:02:0012.1[facility]annCHEM QFJGR6386-62-65 17:02:007[facility]annCHEM XJHZD0176-85-11 17:02:0045[facility]annCHEM EAADO0291-54-36 17:02:001.8[facility]annCHEM ZGGKY8507-53-23 17:02:0037[facility]annCHEM ACOXK1324-10-48 17:02:000.3[facility]annCHEM IHNPR3273-92-37 17:02:0084[facility]annCHEM PRNIY1372-36-10 17:02:007.2 [facility]annCHEM KVDRY5699-82-44 17:02:008.4[facility]annCHEM PANEL 2015-06-17 17:02:93586Vwskgjxr HermannCHEM TVOEM3071-84-95 17:02:005.1[facility]annCHEM HCGQI3379-11-25 17:02:71775Xuvbaeol HermannCHEM UZIKB2698-27-41 17:02:0021[facility]annCHEM UFLFN1607-36-11 17:02:35097Tcknmgnq HermannCHEM TZWVN0277-08-47 17:02:007.50[facility]annCHEM GDVQI7692-01-80 17:02:0052 [facility] PpqlnaiVTBJIRJZPH4545-86-67 17:02:000.4[facility]annHEMATOLOGY 2015-06-17 17:02:000.0[facility] HuqtljmVKEEMFHCMO7206-83-20 17:02:000.1[facility] DmrycoeBIESHMXEFL6465-98-93 17:02:0027.3[facility] BtrhgazYEFZATWXAB5802-74-80 17:02:0065.3[facility] ThwljtxITQDBNHOIL3117-08-35 17:02:004.4[facility] AMYTUPJQIF7440-69-51 17:02:000.5[facility] QgwszcqWMQRKCSACT3649-45-04 17:02:001.3 [facility] McxqqqsULRSREIQKD3901-79-83 17:02:005.6[facility]annHEMATOLOGY 2015-06-17 17:02:001.9[facility] DjhttpjWDTKQJRIMH4191-32-00 17:02:0028.8[facility] OsgijexSZDMAVFGVF0007-70-12 17:02:009.3[facility] XwrqmeqQXYURFZCYR3837-48-90 17:02:003.24[facility] MkkdcmzATGGJCUFHG9034-01-24 17:02:00 Test Item Value Reference Range Interpretation Comments MCH (test code = MCH) 28.8 pg 27.0-31.0 [facility] FbmfxczDOTOWYNFOG0898-04-17 17:02:0088.8[facility]annHEMATOLOGY 2015-06-17 17:02:88233Srlbyvqj LozjoeoWAEENKRACM7230-77-63 17:02:0015.2[facility] XvmqzhmHKCFBFDVBY4919-41-16 17:02:0032.4[facility] GddfrgnLWAJOLQEVZ8832-90-83 17:02:009.3[facility] FbonmtuQXOPCFVAYQ5738-82-27 17:02:006.8[facility]annUR[facility] AND VYCQH8700-91-61 17:02:00Yellow *NA*(06/17/15 12:02 PM)[facility] AND DEKAE7989-99-90 17:02:00Clear (06/17/15 12:02 PM)[facility] AND NXWGX5857-42-41 17:02:00Negative (06/17/15 12:02 PM)[facility] AND MNFRM5194-07-64 17:02:000.2[facility] AND TXZOO3215-87-52 17:02:00 Moderate *ABN*(06/17/15 12:02 PM)[facility] RSQNL9567-53-87 17:02:00Negative (06/17/15 12:02 PM)[facility] HANFE0909-09-01 17:02:00Negative *NA*(06/17/15 12:02 PM)[facility] MQWWT2581-74-25 17:02:00Negative *NA*(06/17/15 12:02 PM)[facility] QVPIT8840-20-13 17:02:00 Test Item Value Reference Range Interpretation Comments UA pH (test code = UA pH) 6.5 1 5.0-8.0 [facility] [id number] 17:02:00 Test Item Value Reference Range Interpretation Comments UA Spec Grav (test code = UA Spec 1.020 1 Grav) [facility] [id number] 17:02:00Negative (06/17/15 12:02 PM)[facility]annCHEM WLZVR0267-42-60 21:21:00 Test Item Value Reference Range Interpretation Comments A/G Ratio (test code = A/G Ratio) 0.4 0.7-1.6 [facility]annCHEM [id number] 21:21:00 Test Item Value Reference Range Interpretation Comments B/C Ratio (test code = B/C Ratio) 18 6-25 [facility]annCHEM DJXES3653-00-79 21:21:00 Test Item Value Reference Range Interpretation Comments Globulin (test code = Globulin) 5.0 2.0-4.0 [facility]annCHEM TTDFX4720-72-35 21:21:00 Test Item Value Reference Range Interpretation Comments AGAP (test code = AGAP) 11.8 10.0-20.0 [facility]2015-[facility]-19 21:21:00 Test Item Value Reference Range Interpretation Comments eGFR (test code = eGFR) 49 [facility]2015-06-19 21:21:00 Test Item Value Reference Range Interpretation Comments Glucose Lvl (test code = Glucose Lvl) 242 70-99 [facility]2015-06-19 21:21:00 Test Item Value Reference Range Interpretation Comments BUN (test code = BUN) 27 7-22 [facility]2015-06-19 21:21:00 Test Item Value Reference Range Interpretation Comments Creatinine Lvl (test code = Creatinine 1.5 0.5-1.4 Lvl) [facility]2015-06-19 21:21:00 Test Item Value Reference Range Interpretation Comments CO2 (test code = CO2) 22 24-32 [facility]2015-06-19 21:21:00 Test Item Value Reference Range Interpretation Comments Calcium Lvl (test code = Calcium Lvl) 8.7 8.5-10.5 [facility]2015-06-19 21:21:00 Test Item Value Reference Range Interpretation Comments Potassium Lvl (test code = Potassium 3.8 3.5-5.1 Lvl) [facility]2015-06-19 21:21:00 Test Item Value Reference Range Interpretation Comments Chloride Lvl (test code = Chloride Lvl) 110 95-109 [facility]2015-06-19 21:21:00 Test Item Value Reference Range Interpretation Comments Sodium Lvl (test code = Sodium Lvl) 140 135-145 [facility]2015-06-19 21:21:00 Test Item Value Reference Range Interpretation Comments AST (test code = AST) 29 See_Comment [Auto mated message] The system which ge nerated this result transmit marsha reference range : <=37. The reference range was not used to interpr et this result as charis l/abnormal. [facility]2015-06-19 21:21:00 Test Item Value Reference Range Interpretation Comments Alk Phos (test code = Alk Phos) 61 39-136 [facility]2015-06-19 21:21:00 Test Item Value Reference Range Interpretation Comments Albumin Lvl (test code = Albumin Lvl) 1.9 3.5-5.0 [facility]2015-06-19 21:21:00 Test Item Value Reference Range Interpretation Comments ALT (test code = ALT) 39 See_Comment [Auto mated message] The system which ge nerated this result transmit marsha reference range : <=65. The reference range was not used to interpr et this result as charis l/abnormal. [facility]2015-06-19 21:21:00 Test Item Value Reference Range Interpretation Comments Total Protein (test code = Total 6.9 6.4-8.4 Protein) [facility]2015-06-19 21:21:00 Test Item Value Reference Range Interpretation Comments Bili Total (test code = Bili Total) 0.3 0.2-1.3 [facility] HospitalVtnxuxqJUEABLPROQ2815-62-94 21:21:00 Test Item Value Reference Range Interpretation Comments Monocytes # (test code 0.6 See_Comment [Aut omated message] The = Monocytes #) system which generated this result tra nsmitted reference range : <=0.8. The reference r nabor was not used to int erpret this result as normal/abnormal . [facility] HospitalZkqafmtIYMFBDXTYY2279-56-13 21:21:00 Test Item Value Reference Range Interpretation Comments Lymphocytes # (test code = Lymphocytes 1.9 1.0-5.5 #) [facility] HospitalPbqpdhbPCVOUILLAX2308-65-06 21:21:00 Test Item Value Reference Range Interpretation Comments Eosinophils # (test code 0.0 See_Comment [A utomated message] The = Eosinophils #) system whic h generated this result tra nsmitted reference range : <=0.5. The reference r nabor was not used to int erpret this result as normal/abnormal . [facility] HospitalTovltheJXPTDJRELG7566-66-47 21:21:00 Test Item Value Reference Range Interpretation Comments Basophils # (test code 0.0 See_Comment [Aut omated message] The = Basophils #) system which generated this result tra nsmitted reference range : <=0.2. The reference r nabor was not used to int erpret this result as normal/abnormal . [facility] HospitalRbzswkvMGUPXFIYTE5051-06-10 21:21:00 Test Item Value Reference Range Interpretation Comments Eosinophils (test code = 0.1 See_Comment [A utomated message] The Eosinophils) system which ge nerated this result tra nsmitted reference range : <=4.0. The reference r nabor was not used to int erpret this result as normal/abnormal . [facility] HospitalNtfngktTFXGCWDVOB4034-64-25 21:21:00 Test Item Value Reference Range Interpretation Comments Monocytes (test code = Monocytes) 3.8 2.0-12.0 [facility] HospitalTtamqwaNEROTTLBXJ5781-58-18 21:21:00 Test Item Value Reference Range Interpretation Comments Basophils (test code = 0.2 See_Comment [Aut omated message] The Basophils) system which ge nerated this result tra nsmitted reference range : <=1.0. The reference r nabor was not used to int erpret this result as normal/abnormal . [facility] HospitalKkpelviDGAEWEYJTF7538-28-52 21:21:00 Test Item Value Reference Range Interpretation Comments Segs-Bands # (test code = Segs-Bands #) 13.9 1.5-8.1 [facility] HospitalIlgfjshHFSRWPCLFF0222-29-86 21:21:00 Test Item Value Reference Range Interpretation Comments Segs (test code = Segs) 84.1 45.0-75.0 [facility] [facility]AteygmxRLTUQTYRAM2215-46-08 21:21:00 Test Item Value Reference Range Interpretation Comments Lymphocytes (test code = Lymphocytes) 11.8 20.0-40.0 [facility] HospitalRrjvalxNZSAJBMFDA4645-82-80 21:21:00 Test Item Value Reference Range Interpretation Comments PTT (test code = PTT) 32.7 s 22.9-35.8 [facility] HospitalUwpeytqCMKBUJPBWS0137-77-77 21:21:00 Test Item Value Reference Range Interpretation Comments PT (test code = PT) 12.4 s 12.0-14.7 [facility] HospitalTanwukjLMFPHWFVZP0257-54-14 21:21:00 Test Item Value Reference Range Interpretation Comments INR (test code = INR) 0.93 0.85-1.17 [facility] HospitalNcgnserMGJMBMTYAM5158-03-53 21:21:00 Test Item Value Reference Range Interpretation Comments MPV (test code = MPV) 9.5 7.4-10.4 [facility] HospitalXvztgutBKYCLFCJQS7631-41-47 21:21:00 Test Item Value Reference Range Interpretation Comments MCHC (test code = MCHC) 32.4 32.0-36.0 [facility] HospitalFedlzacRUKZRLKECY7177-14-06 21:21:00 Test Item Value Reference Range Interpretation Comments RDW (test code = RDW) 14.2 11.5-14.5 [facility] HospitalPecrscjHOOTOJHCWS0295-72-71 21:21:00 Test Item Value Reference Range Interpretation Comments Platelet (test code = Platelet) 229 133-450 [facility] HospitalQihxxcsZBOQKEYBDK9241-28-11 21:21:00 Test Item Value Reference Range Interpretation Comments MCV (test code = MCV) 87.9 80.0-98.0 [facility] HospitalKwodxwvFOIWGVDMAP4152-69-82 21:21:00 Test Item Value Reference Range Interpretation Comments WBC (test code = WBC) 16.5 3.7-10.4 [facility] HospitalGefdqjrNESNRORGVJ7861-27-22 21:21:00 Test Item Value Reference Range Interpretation Comments RBC (test code = RBC) 4.32 4.20-5.40 [facility] HospitalZczlasyQDJVGBAEAI1386-41-30 21:21:00 Test Item Value Reference Range Interpretation Comments Hgb (test code = Hgb) 12.3 12.0-16.0 [facility] HospitalOqljsxsRIOZXXHAWM4990-19-97 21:21:00 Test Item Value Reference Range Interpretation Comments Hct (test code = Hct) 37.9 36.0-48.0 [facility] HospitalKakpcvbEMJZIJOCZZ3537-37-58 21:21:00 Test Item Value Reference Range Interpretation Comments MCH (test code = MCH) 28.5 pg 27.0-31.0 [facility] 21:21:00 Test Item Value Reference Range Interpretation Comments A/G Ratio (test code = A/G Ratio) 0.4 0.7-1.6 [facility]2015-06-19 21:21:00 Test Item Value Reference Range Interpretation Comments B/C Ratio (test code = B/C Ratio) 18 6-25 [facility]2015-06-19 21:21:00 Test Item Value Reference Range Interpretation Comments Globulin (test code = Globulin) 5.0 2.0-4.0 [facility]2015-06-19 21:21:00 Test Item Value Reference Range Interpretation Comments AGAP (test code = AGAP) 11.8 10.0-20.0 [facility]2015-06-19 21:21:00 Test Item Value Reference Range Interpretation Comments eGFR (test code = eGFR) 49 [facility]2015-06-19 21:21:00 Test Item Value Reference Range Interpretation Comments Glucose Lvl (test code = Glucose Lvl) 242 70-99 [facility]2015-06-19 21:21:00 Test Item Value Reference Range Interpretation Comments BUN (test code = BUN) 27 7-22 [facility]2015-06-19 21:21:00 Test Item Value Reference Range Interpretation Comments Creatinine Lvl (test code = Creatinine 1.5 0.5-1.4 Lvl) [facility]2015-06-19 21:21:00 Test Item Value Reference Range Interpretation Comments CO2 (test code = CO2) 22 24-32 [facility]2015-06-19 21:21:00 Test Item Value Reference Range Interpretation Comments Calcium Lvl (test code = Calcium Lvl) 8.7 8.5-10.5 [facility]2015-06-19 21:21:00 Test Item Value Reference Range Interpretation Comments Potassium Lvl (test code = Potassium 3.8 3.5-5.1 Lvl) [facility]2015-06-19 21:21:00 Test Item Value Reference Range Interpretation Comments Chloride Lvl (test code = Chloride Lvl) 110 95-109 [facility]2015-06-19 21:21:00 Test Item Value Reference Range Interpretation Comments Sodium Lvl (test code = Sodium Lvl) 140 135-145 [facility]2015-06-19 21:21:00 Test Item Value Reference Range Interpretation Comments AST (test code = AST) 29 See_Comment [Auto mated message] The system which ge nerated this result transmit marsha reference range : <=37. The reference range was not used to interpr et this result as charis l/abnormal. [facility]2015-06-19 21:21:00 Test Item Value Reference Range Interpretation Comments Alk Phos (test code = Alk Phos) 61 39-136 [facility]2015-06-19 21:21:00 Test Item Value Reference Range Interpretation Comments Albumin Lvl (test code = Albumin Lvl) 1.9 3.5-5.0 [place] 739235-06-19 21:21:00 Test Item Value Reference Range Interpretation Comments ALT (test code = ALT) 39 See_Comment [Auto mated message] The system which ge nerated this result transmit marsha reference range : <=65. The reference range was not used to interpr et this result as charis l/abnormal. [facility]2015-06-19 21:21:00 Test Item Value Reference Range Interpretation Comments Total Protein (test code = Total 6.9 6.4-8.4 Protein) [facility]2015-06-19 21:21:00 Test Item Value Reference Range Interpretation Comments Bili Total (test code = Bili Total) 0.3 0.2-1.3 [facility] HospitalCpbltcjOFIETEMIQQ6853-78-89 21:21:00 Test Item Value Reference Range Interpretation Comments Monocytes # (test code 0.6 See_Comment [Aut omated message] The = Monocytes #) system which generated this result tra nsmitted reference range : <=0.8. The reference r nabor was not used to int erpret this result as normal/abnormal . [facility] HospitalKvoigpqRAWOVMSIGD3296-42-90 21:21:00 Test Item Value Reference Range Interpretation Comments Lymphocytes # (test code = Lymphocytes 1.9 1.0-5.5 #) [facility] HospitalUpadivyAPKGVAXBTL1991-54-87 21:21:00 Test Item Value Reference Range Interpretation Comments Eosinophils # (test code 0.0 See_Comment [A utomated message] The = Eosinophils #) system whic h generated this result tra nsmitted reference range : <=0.5. The reference r nabor was not used to int erpret this result as normal/abnormal . [facility] HospitalPmwlkusCFHZKINKZK2928-49-65 21:21:00 Test Item Value Reference Range Interpretation Comments Basophils # (test code 0.0 See_Comment [Aut omated message] The = Basophils #) system which generated this result tra nsmitted reference range : <=0.2. The reference r nabor was not used to int erpret this result as normal/abnormal . [facility] HospitalHzeemyzJJFTSSQGSM2129-83-07 21:21:00 Test Item Value Reference Range Interpretation Comments Eosinophils (test code = 0.1 See_Comment [A utomated message] The Eosinophils) system which ge nerated this result tra nsmitted reference range : <=4.0. The reference r nabor was not used to int erpret this result as normal/abnormal . [facility] HospitalPjupwcvOKRHCSYRMP0222-17-17 21:21:00 Test Item Value Reference Range Interpretation Comments Monocytes (test code = Monocytes) 3.8 2.0-12.0 [facility] HospitalHfcynzqLCBGOSZCSW7593-98-32 21:21:00 Test Item Value Reference Range Interpretation Comments Basophils (test code = 0.2 See_Comment [Aut omated message] The Basophils) system which ge nerated this result tra nsmitted reference range : <=1.0. The reference r nabor was not used to int erpret this result as normal/abnormal . [facility] HospitalNknezyzNJKWOERRYO9467-50-07 21:21:00 Test Item Value Reference Range Interpretation Comments Segs-Bands # (test code = Segs-Bands #) 13.9 1.5-8.1 [facility] HospitalYxhwonjIRBBJSGHCB7086-00-49 21:21:00 Test Item Value Reference Range Interpretation Comments Segs (test code = Segs) 84.1 45.0-75.0 [facility] HospitalZmtedosQKMCRYBXWX5187-40-66 21:21:00 Test Item Value Reference Range Interpretation Comments Lymphocytes (test code = Lymphocytes) 11.8 20.0-40.0 [facility] HospitalXcgrkqxXMFGPFYDIE8317-64-03 21:21:00 Test Item Value Reference Range Interpretation Comments PTT (test code = PTT) 32.7 s 22.9-35.8 [facility] HospitalVoiiztoMGWNOSXCSC1874-43-39 21:21:00 Test Item Value Reference Range Interpretation Comments PT (test code = PT) 12.4 s 12.0-14.7 [facility] HospitalZghtpneTOTGFNHWNA2891-28-49 21:21:00 Test Item Value Reference Range Interpretation Comments INR (test code = INR) 0.93 0.85-1.17 [facility] HospitalIhseggaTEGKHFSQXC7352-02-45 21:21:00 Test Item Value Reference Range Interpretation Comments MPV (test code = MPV) 9.5 7.4-10.4 [facility] HospitalZaiejtrBMSYNTDJDV0992-47-91 21:21:00 Test Item Value Reference Range Interpretation Comments MCHC (test code = MCHC) 32.4 32.0-36.0 [facility] HospitalUamivpyYNDCLSUVYM6639-35-09 21:21:00 Test Item Value Reference Range Interpretation Comments RDW (test code = RDW) 14.2 11.5-14.5 [facility] HospitalOrolhuxJCMVICMPNF7458-15-31 21:21:00 Test Item Value Reference Range Interpretation Comments Platelet (test code = Platelet) 229 133-450 [facility] HospitalMgouzjkDSATKYVONT2606-79-36 21:21:00 Test Item Value Reference Range Interpretation Comments MCV (test code = MCV) 87.9 80.0-98.0 [facility] HospitalQskqfouCTKJADRKVF8737-20-72 21:21:00 Test Item Value Reference Range Interpretation Comments WBC (test code = WBC) 16.5 3.7-10.4 [facility] HospitalArhilbnETWFFQWWPB7871-26-13 21:21:00 Test Item Value Reference Range Interpretation Comments RBC (test code = RBC) 4.32 4.20-5.40 [facility] HospitalRilgmkdRFDLGMHUGN2667-39-91 21:21:00 Test Item Value Reference Range Interpretation Comments Hgb (test code = Hgb) 12.3 12.0-16.0 [facility] HospitalOjknereXSDMBEBEIF9430-94-31 21:21:00 Test Item Value Reference Range Interpretation Comments Hct (test code = Hct) 37.9 36.0-48.0 [facility] HospitalLuahhbbXJQRDXWOKZ1141-00-48 21:21:00 Test Item Value Reference Range Interpretation Comments MCH (test code = MCH) 28.5 pg 27.0-31.0 [facility]2015-06-19 21:21:00 Test Item Value Reference Range Interpretation Comments A/G Ratio (test code = A/G Ratio) 0.4 0.7-1.6 [facility]2015-06-19 21:21:00 Test Item Value Reference Range Interpretation Comments B/C Ratio (test code = B/C Ratio) 18 6-25 [facility]2015-06-19 21:21:00 Test Item Value Reference Range Interpretation Comments Globulin (test code = Globulin) 5.0 2.0-4.0 [facility]2015-06-19 21:21:00 Test Item Value Reference Range Interpretation Comments AGAP (test code = AGAP) 11.8 10.0-20.0 [facility]2015-06-19 21:21:00 Test Item Value Reference Range Interpretation Comments eGFR (test code = eGFR) 49 [facility]2015-06-19 21:21:00 Test Item Value Reference Range Interpretation Comments Glucose Lvl (test code = Glucose Lvl) 242 70-99 [facility]2015-06-19 21:21:00 Test Item Value Reference Range Interpretation Comments BUN (test code = BUN) 27 7-22 [facility]2015-06-19 21:21:00 Test Item Value Reference Range Interpretation Comments Creatinine Lvl (test code = Creatinine 1.5 0.5-1.4 Lvl) [facility]2015-06-19 21:21:00 Test Item Value Reference Range Interpretation Comments CO2 (test code = CO2) 22 24-32 [facility]2015-06-19 21:21:00 Test Item Value Reference Range Interpretation Comments Calcium Lvl (test code = Calcium Lvl) 8.7 8.5-10.5 [facility]2015-06-19 21:21:00 Test Item Value Reference Range Interpretation Comments Potassium Lvl (test code = Potassium 3.8 3.5-5.1 Lvl) [facility]2015-06-19 21:21:00 Test Item Value Reference Range Interpretation Comments Chloride Lvl (test code = Chloride Lvl) 110 95-109 [facility]2015-06-19 21:21:00 Test Item Value Reference Range Interpretation Comments Sodium Lvl (test code = Sodium Lvl) 140 135-145 [facility]2015-06-19 21:21:00 Test Item Value Reference Range Interpretation Comments AST (test code = AST) 29 See_Comment [Auto mated message] The system which ge nerated this result transmit marsha reference range : <=37. The reference range was not used to interpr et this result as charis l/abnormal. [facility]2015-06-19 21:21:00 Test Item Value Reference Range Interpretation Comments Alk Phos (test code = Alk Phos) 61 39-136 [facility]2015-06-19 21:21:00 Test Item Value Reference Range Interpretation Comments Albumin Lvl (test code = Albumin Lvl) 1.9 3.5-5.0 [facility]2015-06-19 21:21:00 Test Item Value Reference Range Interpretation Comments ALT (test code = ALT) 39 See_Comment [Auto mated message] The system which ge nerated this result transmit marsha reference range : <=65. The reference range was not used to interpr et this result as charis l/abnormal. [facility]2015-06-19 21:21:00 Test Item Value Reference Range Interpretation Comments Total Protein (test code = Total 6.9 6.4-8.4 Protein) [facility]2015-06-19 21:21:00 Test Item Value Reference Range Interpretation Comments Bili Total (test code = Bili Total) 0.3 0.2-1.3 [facility] HospitalMngvgxvUUJGAOAJXD3207-45-27 21:21:00 Test Item Value Reference Range Interpretation Comments Monocytes # (test code 0.6 See_Comment [Aut omated message] The = Monocytes #) system which generated this result tra nsmitted reference range : <=0.8. The reference r nabor was not used to int erpret this result as normal/abnormal . [facility] HospitalJdfqgtaFEHNQOXCKB9279-04-66 21:21:00 Test Item Value Reference Range Interpretation Comments Lymphocytes # (test code = Lymphocytes 1.9 1.0-5.5 #) [facility] HospitalRruzwmuFBYKRORUWQ0832-10-29 21:21:00 Test Item Value Reference Range Interpretation Comments Eosinophils # (test code 0.0 See_Comment [A utomated message] The = Eosinophils #) system whic h generated this result tra nsmitted reference range : <=0.5. The reference r nabor was not used to int erpret this result as normal/abnormal . [facility] HospitalYxtetcpTRZOAVJICE5693-42-37 21:21:00 Test Item Value Reference Range Interpretation Comments Basophils # (test code 0.0 See_Comment [Aut omated message] The = Basophils #) system which generated this result tra nsmitted reference range : <=0.2. The reference r nabor was not used to int erpret this result as normal/abnormal . [facility] HospitalYatoquyDBOHASFPMW9292-04-45 21:21:00 Test Item Value Reference Range Interpretation Comments Eosinophils (test code = 0.1 See_Comment [A utomated message] The Eosinophils) system which ge nerated this result tra nsmitted reference range : <=4.0. The reference r nabor was not used to int erpret this result as normal/abnormal . [facility] HospitalYbyqcepAXXNPFBZPG1665-92-62 21:21:00 Test Item Value Reference Range Interpretation Comments Monocytes (test code = Monocytes) 3.8 2.0-12.0 [facility] HospitalZasmioyLBXQSIYGRY1735-40-06 21:21:00 Test Item Value Reference Range Interpretation Comments Basophils (test code = 0.2 See_Comment [Aut omated message] The Basophils) system which ge nerated this result tra nsmitted reference range : <=1.0. The reference r nabor was not used to int erpret this result as normal/abnormal . [facility] HospitalVqtrznkBCMUUUMBQO4461-43-57 21:21:00 Test Item Value Reference Range Interpretation Comments Segs-Bands # (test code = Segs-Bands #) 13.9 1.5-8.1 [facility] HospitalYcmmgzsWETZNVRRUT4331-95-40 21:21:00 Test Item Value Reference Range Interpretation Comments Segs (test code = Segs) 84.1 45.0-75.0 [facility] HospitalCuwastcRSKPPBQUUQ0844-66-24 21:21:00 Test Item Value Reference Range Interpretation Comments Lymphocytes (test code = Lymphocytes) 11.8 20.0-40.0 [facility] HospitalXymkvueKERJCHRUKD0210-12-57 21:21:00 Test Item Value Reference Range Interpretation Comments PTT (test code = PTT) 32.7 s 22.9-35.8 [facility] HospitalSwyxgovJPJAXBKWGB2229-22-49 21:21:00 Test Item Value Reference Range Interpretation Comments PT (test code = PT) 12.4 s 12.0-14.7 [facility] HospitalSxgrczlOZKJNHFEPS1751-45-37 21:21:00 Test Item Value Reference Range Interpretation Comments INR (test code = INR) 0.93 0.85-1.17 [facility] HospitalUzuzindQGCSEAAJQE6606-86-14 21:21:00 Test Item Value Reference Range Interpretation Comments MPV (test code = MPV) 9.5 7.4-10.4 [facility] HospitalSzbefbcPCWNNFZOGQ3739-94-00 21:21:00 Test Item Value Reference Range Interpretation Comments MCHC (test code = MCHC) 32.4 32.0-36.0 [facility] HospitalGjvjjqpELIOVRYAXJ7989-88-92 21:21:00 Test Item Value Reference Range Interpretation Comments RDW (test code = RDW) 14.2 11.5-14.5 [facility] HospitalWjibiniNJOJQEZGFY3151-51-08 21:21:00 Test Item Value Reference Range Interpretation Comments Platelet (test code = Platelet) 229 133-450 [facility] HospitalXfrsschFUMTDTYPCE8642-23-32 21:21:00 Test Item Value Reference Range Interpretation Comments MCV (test code = MCV) 87.9 80.0-98.0 [facility] HospitalJpztwnkDNTBTYSDFO6146-86-12 21:21:00 Test Item Value Reference Range Interpretation Comments WBC (test code = WBC) 16.5 3.7-10.4 [facility] HospitalWcbhqqnPNHSCIIFHV4631-67-88 21:21:00 Test Item Value Reference Range Interpretation Comments RBC (test code = RBC) 4.32 4.20-5.40 [facility] HospitalNlcrtdnKAWWSMKBEK8186-45-83 21:21:00 Test Item Value Reference Range Interpretation Comments Hgb (test code = Hgb) 12.3 12.0-16.0 [facility] HospitalBqkjhxqPFDNSBKDSE3178-83-25 21:21:00 Test Item Value Reference Range Interpretation Comments Hct (test code = Hct) 37.9 36.0-48.0 [facility] HospitalOiwqpmwQPKBQYRPKV8493-77-18 21:21:00 Test Item Value Reference Range Interpretation Comments MCH (test code = MCH) 28.5 pg 27.0-31.0 [facility]2015-06-19 21:21:00 Test Item Value Reference Range Interpretation Comments A/G Ratio (test code = A/G Ratio) 0.4 0.7-1.6 [facility]2015-06-19 21:21:00 Test Item Value Reference Range Interpretation Comments B/C Ratio (test code = B/C Ratio) 18 6-25 [facility]2015-06-19 21:21:00 Test Item Value Reference Range Interpretation Comments Globulin (test code = Globulin) 5.0 2.0-4.0 [facility]2015-06-19 21:21:00 Test Item Value Reference Range Interpretation Comments AGAP (test code = AGAP) 11.8 10.0-20.0 [facility]2015-06-19 21:21:00 Test Item Value Reference Range Interpretation Comments eGFR (test code = eGFR) 49 [facility]2015-06-19 21:21:00 Test Item Value Reference Range Interpretation Comments Glucose Lvl (test code = Glucose Lvl) 242 70-99 [facility]2015-06-19 21:21:00 Test Item Value Reference Range Interpretation Comments BUN (test code = BUN) 27 7-22 [facility]2015-06-19 21:21:00 Test Item Value Reference Range Interpretation Comments Creatinine Lvl (test code = Creatinine 1.5 0.5-1.4 Lvl) [facility]2015-06-19 21:21:00 Test Item Value Reference Range Interpretation Comments CO2 (test code = CO2) 22 24-32 [facility]2015-06-19 21:21:00 Test Item Value Reference Range Interpretation Comments Calcium Lvl (test code = Calcium Lvl) 8.7 8.5-10.5 [facility]2015-06-19 21:21:00 Test Item Value Reference Range Interpretation Comments Potassium Lvl (test code = Potassium 3.8 3.5-5.1 Lvl) [facility]2015-06-19 21:21:00 Test Item Value Reference Range Interpretation Comments Chloride Lvl (test code = Chloride Lvl) 110 95-109 [facility]2015-06-19 21:21:00 Test Item Value Reference Range Interpretation Comments Sodium Lvl (test code = Sodium Lvl) 140 135-145 [facility]2015-06-19 21:21:00 Test Item Value Reference Range Interpretation Comments AST (test code = AST) 29 See_Comment [Auto mated message] The system which ge nerated this result transmit marsha reference range : <=37. The reference range was not used to interpr et this result as charis l/abnormal. [facility]2015-06-19 21:21:00 Test Item Value Reference Range Interpretation Comments Alk Phos (test code = Alk Phos) 61 39-136 [facility]2015-06-19 21:21:00 Test Item Value Reference Range Interpretation Comments Albumin Lvl (test code = Albumin Lvl) 1.9 3.5-5.0 [facility]2015-06-19 21:21:00 Test Item Value Reference Range Interpretation Comments ALT (test code = ALT) 39 See_Comment [Auto mated message] The system which ge nerated this result transmit marsha reference range : <=65. The reference range was not used to interpr et this result as charis l/abnormal. [facility]2015-06-19 21:21:00 Test Item Value Reference Range Interpretation Comments Total Protein (test code = Total 6.9 6.4-8.4 Protein) [facility]2015-06-19 21:21:00 Test Item Value Reference Range Interpretation Comments Bili Total (test code = Bili Total) 0.3 0.2-1.3 [facility] HospitalKmerruaCPDHUQCUHU4373-17-51 21:21:00 Test Item Value Reference Range Interpretation Comments Monocytes # (test code 0.6 See_Comment [Aut omated message] The = Monocytes #) system which generated this result tra nsmitted reference range : <=0.8. The reference r nabor was not used to int erpret this result as normal/abnormal . [facility] HospitalNsombzoBCSEIZDJPE7200-90-32 21:21:00 Test Item Value Reference Range Interpretation Comments Lymphocytes # (test code = Lymphocytes 1.9 1.0-5.5 #) [facility] HospitalWuhikpjEYNCGSFHRV6375-37-71 21:21:00 Test Item Value Reference Range Interpretation Comments Eosinophils # (test code 0.0 See_Comment [A utomated message] The = Eosinophils #) system [facility] h generated this result tra nsmitted reference range : <=0.5. The reference r nabor was not used to int erpret this result as normal/abnormal . [facility] HospitalEovbpdaBBOSFZKKZE0489-79-97 21:21:00 Test Item Value Reference Range Interpretation Comments Basophils # (test code 0.0 See_Comment [Aut omated message] The = Basophils #) system which generated this result tra nsmitted reference range : <=0.2. The reference r nabor was not used to int erpret this result as normal/abnormal . [facility] HospitalJtwtslfDAFOEBNJSJ3300-19-00 21:21:00 Test Item Value Reference Range Interpretation Comments Eosinophils (test code = 0.1 See_Comment [A utomated message] The Eosinophils) system which ge nerated this result tra nsmitted reference range : <=4.0. The reference r nabor was not used to int erpret this result as normal/abnormal . [facility] HospitalHekjkirAISJHWXGDC0563-32-44 21:21:00 Test Item Value Reference Range Interpretation Comments Monocytes (test code = Monocytes) 3.8 2.0-12.0 [facility] HospitalPcqjjpjLQNRQRNCCR4822-88-28 21:21:00 Test Item Value Reference Range Interpretation Comments Basophils (test code = 0.2 See_Comment [Aut omated message] The Basophils) system which ge nerated this result tra nsmitted reference range : <=1.0. The reference r nabor was not used to int erpret this result as normal/abnormal . [facility] HospitalUmpzwmkQVFVIJVXTT1524-67-66 21:21:00 Test Item Value Reference Range Interpretation Comments Segs-Bands # (test code = Segs-Bands #) 13.9 1.5-8.1 [facility] HospitalYxelibyYCQTSPCLYE5184-72-20 21:21:00 Test Item Value Reference Range Interpretation Comments Segs (test code = Segs) 84.1 45.0-75.0 [facility] HospitalTavbadoRGFQGPYKOM0020-73-98 21:21:00 Test Item Value Reference Range Interpretation Comments Lymphocytes (test code = Lymphocytes) 11.8 20.0-40.0 [facility] HospitalCvskmswWAEXHAFWMK2142-53-72 21:21:00 Test Item Value Reference Range Interpretation Comments PTT (test code = PTT) 32.7 s 22.9-35.8 [facility] HospitalUmjsacbXVULTZKZVZ3310-01-82 21:21:00 Test Item Value Reference Range Interpretation Comments PT (test code = PT) 12.4 s 12.0-14.7 [facility] HospitalUyotdnxPYMFLNCBDV0219-23-22 21:21:00 Test Item Value Reference Range Interpretation Comments INR (test code = INR) 0.93 0.85-1.17 [facility] HospitalRyynooaUTANHTZKDL4715-98-07 21:21:00 Test Item Value Reference Range Interpretation Comments MPV (test code = MPV) 9.5 7.4-10.4 [facility] HospitalYbitlsvIKICWVNSPJ5399-77-85 21:21:00 Test Item Value Reference Range Interpretation Comments MCHC (test code = MCHC) 32.4 32.0-36.0 [facility] HospitalMtbdyxjUCNQZNZTJS9490-38-95 21:21:00 Test Item Value Reference Range Interpretation Comments RDW (test code = RDW) 14.2 11.5-14.5 [facility] HospitalKpasstgQEQUOCSQJE8560-03-41 21:21:00 Test Item Value Reference Range Interpretation Comments Platelet (test code = Platelet) 229 133-450 [facility] HospitalLhbrbvjGECCTIZNGD7702-73-60 21:21:00 Test Item Value Reference Range Interpretation Comments MCV (test code = MCV) 87.9 80.0-98.0 [facility] HospitalRcigeyyNAJNJNHAME6221-00-37 21:21:00 Test Item Value Reference Range Interpretation Comments WBC (test code = WBC) 16.5 3.7-10.4 [facility] HospitalMksjdiwVRRPBHLTBV4303-26-06 21:21:00 Test Item Value Reference Range Interpretation Comments RBC (test code = RBC) 4.32 4.20-5.40 [facility] HospitalAterazdVQQMRJSDHA9486-65-83 21:21:00 Test Item Value Reference Range Interpretation Comments Hgb (test code = Hgb) 12.3 12.0-16.0 [facility] HospitalUbtejsaUDAKXEESNY9965-78-02 21:21:00 Test Item Value Reference Range Interpretation Comments Hct (test code = Hct) 37.9 36.0-48.0 [facility] HospitalSteowcyVLUWWDXUYA3074-17-40 21:21:00 Test Item Value Reference Range Interpretation Comments MCH (test code = MCH) 28.5 pg 27.0-31.0 [facility] 21:21:00 Test Item Value Reference Range Interpretation Comments A/G Ratio (test code = A/G Ratio) 0.4 0.7-1.6 [facility]2015-06-19 21:21:00 Test Item Value Reference Range Interpretation Comments B/C Ratio (test code = B/C Ratio) 18 6-25 [facility]2015-06-19 21:21:00 Test Item Value Reference Range Interpretation Comments Globulin (test code = Globulin) 5.0 2.0-4.0 [facility]2015-06-19 21:21:00 Test Item Value Reference Range Interpretation Comments AGAP (test code = AGAP) 11.8 10.0-20.0 [facility]2015-06-19 21:21:00 Test Item Value Reference Range Interpretation Comments eGFR (test code = eGFR) 49 [facility]2015-06-19 21:21:00 Test Item Value Reference Range Interpretation Comments Glucose Lvl (test code = Glucose Lvl) 242 70-99 [place] 739235-06-19 21:21:00 Test Item Value Reference Range Interpretation Comments BUN (test code = BUN) 27 7-22 [facility]2015-06-19 21:21:00 Test Item Value Reference Range Interpretation Comments Creatinine Lvl (test code = Creatinine 1.5 0.5-1.4 Lvl) [facility]2015-06-19 21:21:00 Test Item Value Reference Range Interpretation Comments CO2 (test code = CO2) 22 24-32 [facility]2015-06-19 21:21:00 Test Item Value Reference Range Interpretation Comments Calcium Lvl (test code = Calcium Lvl) 8.7 8.5-10.5 [facility]2015-06-19 21:21:00 Test Item Value Reference Range Interpretation Comments Potassium Lvl (test code = Potassium 3.8 3.5-5.1 Lvl) [facility]2015-06-19 21:21:00 Test Item Value Reference Range Interpretation Comments Chloride Lvl (test code = Chloride Lvl) 110 95-109 [facility]2015-06-19 21:21:00 Test Item Value Reference Range Interpretation Comments Sodium Lvl (test code = Sodium Lvl) 140 135-145 [facility]2015-06-19 21:21:00 Test Item Value Reference Range Interpretation Comments AST (test code = AST) 29 See_Comment [Auto mated message] The system which ge nerated this result transmit marsha reference range : <=37. The reference range was not used to interpr et this result as charis l/abnormal. [facility]2015-06-19 21:21:00 Test Item Value Reference Range Interpretation Comments Alk Phos (test code = Alk Phos) 61 39-136 [facility]2015-06-19 21:21:00 Test Item Value Reference Range Interpretation Comments Albumin Lvl (test code = Albumin Lvl) 1.9 3.5-5.0 [facility]2015-06-19 21:21:00 Test Item Value Reference Range Interpretation Comments ALT (test code = ALT) 39 See_Comment [Auto mated message] The system which ge nerated this result transmit marsha reference range : <=65. The reference range was not used to interpr et this result as charis l/abnormal. [facility]2015-06-19 21:21:00 Test Item Value Reference Range Interpretation Comments Total Protein (test code = Total 6.9 6.4-8.4 Protein) [facility]2015-06-19 21:21:00 Test Item Value Reference Range Interpretation Comments Bili Total (test code = Bili Total) 0.3 0.2-1.3 [facility] HospitalCwtomgbKTUQJRSEDF6018-50-24 21:21:00 Test Item Value Reference Range Interpretation Comments Monocytes # (test code 0.6 See_Comment [Aut omated message] The = Monocytes #) system which generated this result tra nsmitted reference range : <=0.8. The reference r nabor was not used to int erpret this result as normal/abnormal . [facility] HospitalGozdhibWVYFJARZST2854-46-46 21:21:00 Test Item Value Reference Range Interpretation Comments Lymphocytes # (test code = Lymphocytes 1.9 1.0-5.5 #) [facility] HospitalGcdunqbLIMADXLTDP0232-78-64 21:21:00 Test Item Value Reference Range Interpretation Comments Eosinophils # (test code 0.0 See_Comment [A utomated message] The = Eosinophils #) system whic h generated this result tra nsmitted reference range : <=0.5. The reference r nabor was not used to int erpret this result as normal/abnormal . [facility] HospitalIijqjstBWSVECPIOT0842-66-33 21:21:00 Test Item Value Reference Range Interpretation Comments Basophils # (test code 0.0 See_Comment [Aut omated message] The = Basophils #) system which generated this result tra nsmitted reference range : <=0.2. The reference r nabor was not used to int erpret this result as normal/abnormal . [facility] HospitalKmlcuqqRKHTYNSCAV3428-99-71 21:21:00 Test Item Value Reference Range Interpretation Comments Eosinophils (test code = 0.1 See_Comment [A utomated message] The Eosinophils) system which ge nerated this result tra nsmitted reference range : <=4.0. The reference r nabor was not used to int erpret this result as normal/abnormal . [facility] HospitalYtunlfvKTJSUUAHCF8625-03-17 21:21:00 Test Item Value Reference Range Interpretation Comments Monocytes (test code = Monocytes) 3.8 2.0-12.0 [facility] HospitalTjzzrnnTXQISSMBXO5877-03-03 21:21:00 Test Item Value Reference Range Interpretation Comments Basophils (test code = 0.2 See_Comment [Aut omated message] The Basophils) system which ge nerated this result tra nsmitted reference range : <=1.0. The reference r nabor was not used to int erpret this result as normal/abnormal . [facility] HospitalOsbcsumCTISWCREKJ1783-48-91 21:21:00 Test Item Value Reference Range Interpretation Comments Segs-Bands # (test code = Segs-Bands #) 13.9 1.5-8.1 [facility] HospitalYmtvtyzOOQMZGUMEN4567-15-34 21:21:00 Test Item Value Reference Range Interpretation Comments Segs (test code = Segs) 84.1 45.0-75.0 [facility] HospitalOrtsprdTYCSBHPZEB9157-55-47 21:21:00 Test Item Value Reference Range Interpretation Comments Lymphocytes (test code = Lymphocytes) 11.8 20.0-40.0 [facility] HospitalGpnczhnWSKLQMFQZY7297-02-81 21:21:00 Test Item Value Reference Range Interpretation Comments PTT (test code = PTT) 32.7 s 22.9-35.8 [facility] HospitalSykedplPUYUOZDQWQ5218-08-65 21:21:00 Test Item Value Reference Range Interpretation Comments PT (test code = PT) 12.4 s 12.0-14.7 [facility] HospitalRkafjvuIJUAIKQMKK5295-96-36 21:21:00 Test Item Value Reference Range Interpretation Comments INR (test code = INR) 0.93 0.85-1.17 [facility] HospitalYurmkeaTNNKYQMLZN4015-78-31 21:21:00 Test Item Value Reference Range Interpretation Comments MPV (test code = MPV) 9.5 7.4-10.4 [facility] HospitalQdwosufUOTRXAIHAN3992-32-47 21:21:00 Test Item Value Reference Range Interpretation Comments MCHC (test code = MCHC) 32.4 32.0-36.0 [facility] HospitalTrbmjusTLEKKZOXCS2989-16-33 21:21:00 Test Item Value Reference Range Interpretation Comments RDW (test code = RDW) 14.2 11.5-14.5 [facility] HospitalFqilkwkWTGYHZKVDB9600-12-61 21:21:00 Test Item Value Reference Range Interpretation Comments Platelet (test code = Platelet) 229 133-450 [facility] HospitalMbfgjceZAIBELOSOC5136-73-61 21:21:00 Test Item Value Reference Range Interpretation Comments MCV (test code = MCV) 87.9 80.0-98.0 [facility] HospitalDjwqrtxVCZFAVRZTY5447-08-80 21:21:00 Test Item Value Reference Range Interpretation Comments WBC (test code = WBC) 16.5 3.7-10.4 [facility] HospitalLfklqzzDCRPTLFHYB2513-77-54 21:21:00 Test Item Value Reference Range Interpretation Comments RBC (test code = RBC) 4.32 4.20-5.40 [facility] HospitalMpsuquaZGIZTIDGKV7227-81-24 21:21:00 Test Item Value Reference Range Interpretation Comments Hgb (test code = Hgb) 12.3 12.0-16.0 [facility] HospitalYzhioreNTTUCMCDXC3272-05-01 21:21:00 Test Item Value Reference Range Interpretation Comments Hct (test code = Hct) 37.9 36.0-48.0 [facility] HospitalWynklzmIHSFIFXKJK7392-09-96 21:21:00 Test Item Value Reference Range Interpretation Comments MCH (test code = MCH) 28.5 pg 27.0-31.0 [facility]2015-06-19 21:21:00 Test Item Value Reference Range Interpretation Comments A/G Ratio (test code = A/G Ratio) 0.4 0.7-1.6 [facility]2015-06-19 21:21:00 Test Item Value Reference Range Interpretation Comments B/C Ratio (test code = B/C Ratio) 18 6-25 [facility]2015-06-19 21:21:00 Test Item Value Reference Range Interpretation Comments Globulin (test code = Globulin) 5.0 2.0-4.0 [facility]2015-06-19 21:21:00 Test Item Value Reference Range Interpretation Comments AGAP (test code = AGAP) 11.8 10.0-20.0 [facility]2015-06-19 21:21:00 Test Item Value Reference Range Interpretation Comments eGFR (test code = eGFR) 49 [facility]2015-06-19 21:21:00 Test Item Value Reference Range Interpretation Comments Glucose Lvl (test code = Glucose Lvl) 242 70-99 [facility]2015-06-19 21:21:00 Test Item Value Reference Range Interpretation Comments BUN (test code = BUN) 27 7-22 [facility]2015-06-19 21:21:00 Test Item Value Reference Range Interpretation Comments Creatinine Lvl (test code = Creatinine 1.5 0.5-1.4 Lvl) [facility]2015-06-19 21:21:00 Test Item Value Reference Range Interpretation Comments CO2 (test code = CO2) 22 24-32 [facility]2015-06-19 21:21:00 Test Item Value Reference Range Interpretation Comments Calcium Lvl (test code = Calcium Lvl) 8.7 8.5-10.5 [facility]2015-06-19 21:21:00 Test Item Value Reference Range Interpretation Comments Potassium Lvl (test code = Potassium 3.8 3.5-5.1 Lvl) [facility]2015-06-19 21:21:00 Test Item Value Reference Range Interpretation Comments Chloride Lvl (test code = Chloride Lvl) 110 95-109 [facility]2015-06-19 21:21:00 Test Item Value Reference Range Interpretation Comments Sodium Lvl (test code = Sodium Lvl) 140 135-145 [facility]2015-06-19 21:21:00 Test Item Value Reference Range Interpretation Comments AST (test code = AST) 29 See_Comment [Auto mated message] The system which ge nerated this result transmit marsha reference range : <=37. The reference range was not used to interpr et this result as charis l/abnormal. [facility]2015-06-19 21:21:00 Test Item Value Reference Range Interpretation Comments Alk Phos (test code = Alk Phos) 61 39-136 [facility]2015-06-19 21:21:00 Test Item Value Reference Range Interpretation Comments Albumin Lvl (test code = Albumin Lvl) 1.9 3.5-5.0 [facility]2015-06-19 21:21:00 Test Item Value Reference Range Interpretation Comments ALT (test code = ALT) 39 See_Comment [Auto mated message] The system which ge nerated this result transmit marsha reference range : <=65. The reference range was not used to interpr et this result as charis l/abnormal. [facility]2015-06-19 21:21:00 Test Item Value Reference Range Interpretation Comments Total Protein (test code = Total 6.9 6.4-8.4 Protein) [facility]2015-06-19 21:21:00 Test Item Value Reference Range Interpretation Comments Bili Total (test code = Bili Total) 0.3 0.2-1.3 [facility] HospitalSzjcwsxQBNGQRENJT9781-90-94 21:21:00 Test Item Value Reference Range Interpretation Comments Monocytes # (test code 0.6 See_Comment [Aut omated message] The = Monocytes #) system which generated this result tra nsmitted reference range : <=0.8. The reference r nabor was not used to int erpret this result as normal/abnormal . [facility] HospitalDiuygglZEGEHGRGYE1246-23-52 21:21:00 Test Item Value Reference Range Interpretation Comments Lymphocytes # (test code = Lymphocytes 1.9 1.0-5.5 #) [facility] HospitalQxljahdPBXYACPNYM5118-64-12 21:21:00 Test Item Value Reference Range Interpretation Comments Eosinophils # (test code 0.0 See_Comment [A utomated message] The = Eosinophils #) system [facility] h generated this result tra nsmitted reference range : <=0.5. The reference r nabor was not used to int erpret this result as normal/abnormal . [facility] HospitalArvmubfNFKODMTGEO0320-28-60 21:21:00 Test Item Value Reference Range Interpretation Comments Basophils # (test code 0.0 See_Comment [Aut omated message] The = Basophils #) system which generated this result tra nsmitted reference range : <=0.2. The reference r nabor was not used to int erpret this result as normal/abnormal . [facility] HospitalPvyeedaPXJDFUWZLN5115-70-69 21:21:00 Test Item Value Reference Range Interpretation Comments Eosinophils (test code = 0.1 See_Comment [A utomated message] The Eosinophils) system which ge nerated this result tra nsmitted reference range : <=4.0. The reference r nabor was not used to int erpret this result as normal/abnormal . [facility] HospitalEzhxwxzQFVGQPUTNK0870-85-80 21:21:00 Test Item Value Reference Range Interpretation Comments Monocytes (test code = Monocytes) 3.8 2.0-12.0 [facility] HospitalHethdtqKOVEFIFCHE6655-18-53 21:21:00 Test Item Value Reference Range Interpretation Comments Basophils (test code = 0.2 See_Comment [Aut omated message] The Basophils) system which ge nerated this result tra nsmitted reference range : <=1.0. The reference r nabor was not used to int erpret this result as normal/abnormal . [facility] HospitalXqocnkeJYDRSLUDBU8065-93-68 21:21:00 Test Item Value Reference Range Interpretation Comments Segs-Bands # (test code = Segs-Bands #) 13.9 1.5-8.1 [facility] HospitalMgsnxiyXHXKBHMUCZ6345-83-68 21:21:00 Test Item Value Reference Range Interpretation Comments Segs (test code = Segs) 84.1 45.0-75.0 [facility] HospitalLctsesjOKYVYBFMJM2220-39-42 21:21:00 Test Item Value Reference Range Interpretation Comments Lymphocytes (test code = Lymphocytes) 11.8 20.0-40.0 [facility] HospitalVghulkyVJCLYAAMZG9170-41-47 21:21:00 Test Item Value Reference Range Interpretation Comments PTT (test code = PTT) 32.7 s 22.9-35.8 [facility] HospitalIqhhjuiOKMNGFBJJF7246-02-92 21:21:00 Test Item Value Reference Range Interpretation Comments PT (test code = PT) 12.4 s 12.0-14.7 [facility] HospitalHscmcwmJCGPGRGLMV7097-82-51 21:21:00 Test Item Value Reference Range Interpretation Comments INR (test code = INR) 0.93 0.85-1.17 [facility] HospitalJwkeunbIPPRKQSBGY7234-03-99 21:21:00 Test Item Value Reference Range Interpretation Comments MPV (test code = MPV) 9.5 7.4-10.4 [facility] HospitalJpxzmwsGLFKJSPHIP5470-69-74 21:21:00 Test Item Value Reference Range Interpretation Comments MCHC (test code = MCHC) 32.4 32.0-36.0 [facility] HospitalJtswbroFWQCEKPDJD2127-31-75 21:21:00 Test Item Value Reference Range Interpretation Comments RDW (test code = RDW) 14.2 11.5-14.5 [facility] HospitalIczmkekEIQTBUJRED6649-29-52 21:21:00 Test Item Value Reference Range Interpretation Comments Platelet (test code = Platelet) 229 133-450 [facility] HospitalDtjllylWTGOQZRXFP2274-03-27 21:21:00 Test Item Value Reference Range Interpretation Comments MCV (test code = MCV) 87.9 80.0-98.0 [facility] HospitalZupxsozATLEUOSZNX5449-41-78 21:21:00 Test Item Value Reference Range Interpretation Comments WBC (test code = WBC) 16.5 3.7-10.4 [facility] HospitalDjsvgkaEYIGRZPWEG2337-90-45 21:21:00 Test Item Value Reference Range Interpretation Comments RBC (test code = RBC) 4.32 4.20-5.40 [facility] HospitalPvhgqkpLAXKEQFSMN4602-44-07 21:21:00 Test Item Value Reference Range Interpretation Comments Hgb (test code = Hgb) 12.3 12.0-16.0 [facility] HospitalUqrprjzJXRMUTSDIT4686-24-14 21:21:00 Test Item Value Reference Range Interpretation Comments Hct (test code = Hct) 37.9 36.0-48.0 [facility] HospitalExhmcaiSPYMHDOQON7344-48-62 21:21:00 Test Item Value Reference Range Interpretation Comments MCH (test code = MCH) 28.5 pg 27.0-31.0 [facility]2015-06-19 21:21:00 Test Item Value Reference Range Interpretation Comments A/G Ratio (test code = A/G Ratio) 0.4 0.7-1.6 [facility]2015-06-19 21:21:00 Test Item Value Reference Range Interpretation Comments B/C Ratio (test code = B/C Ratio) 18 6-25 [facility]2015-06-19 21:21:00 Test Item Value Reference Range Interpretation Comments Globulin (test code = Globulin) 5.0 2.0-4.0 [facility]2015-06-19 21:21:00 Test Item Value Reference Range Interpretation Comments AGAP (test code = AGAP) 11.8 10.0-20.0 [facility]2015-06-19 21:21:00 Test Item Value Reference Range Interpretation Comments eGFR (test code = eGFR) 49 [facility]2015-06-19 21:21:00 Test Item Value Reference Range Interpretation Comments Glucose Lvl (test code = Glucose Lvl) 242 70-99 [facility]2015-06-19 21:21:00 Test Item Value Reference Range Interpretation Comments BUN (test code = BUN) 27 7-22 [facility]2015-06-19 21:21:00 Test Item Value Reference Range Interpretation Comments Creatinine Lvl (test code = Creatinine 1.5 0.5-1.4 Lvl) [facility]2015-06-19 21:21:00 Test Item Value Reference Range Interpretation Comments CO2 (test code = CO2) 22 24-32 [facility]2015-06-19 21:21:00 Test Item Value Reference Range Interpretation Comments Calcium Lvl (test code = Calcium Lvl) 8.7 8.5-10.5 [facility]2015-06-19 21:21:00 Test Item Value Reference Range Interpretation Comments Potassium Lvl (test code = Potassium 3.8 3.5-5.1 Lvl) [facility]2015-06-19 21:21:00 Test Item Value Reference Range Interpretation Comments Chloride Lvl (test code = Chloride Lvl) 110 95-109 [facility]2015-06-19 21:21:00 Test Item Value Reference Range Interpretation Comments Sodium Lvl (test code = Sodium Lvl) 140 135-145 [facility]2015-06-19 21:21:00 Test Item Value Reference Range Interpretation Comments AST (test code = AST) 29 See_Comment [Auto mated message] The system which ge nerated this result transmit marsha reference range : <=37. The reference range was not used to interpr et this result as charis l/abnormal. [facility]2015-06-19 21:21:00 Test Item Value Reference Range Interpretation Comments Alk Phos (test code = Alk Phos) 61 39-136 [facility]2015-06-19 21:21:00 Test Item Value Reference Range Interpretation Comments Albumin Lvl (test code = Albumin Lvl) 1.9 3.5-5.0 [facility]2015-06-19 21:21:00 Test Item Value Reference Range Interpretation Comments ALT (test code = ALT) 39 See_Comment [Auto mated message] The system which ge nerated this result transmit marsha reference range : <=65. The reference range was not used to interpr et this result as charis l/abnormal. [facility]2015-06-19 21:21:00 Test Item Value Reference Range Interpretation Comments Total Protein (test code = Total 6.9 6.4-8.4 Protein) [facility]2015-06-19 21:21:00 Test Item Value Reference Range Interpretation Comments Bili Total (test code = Bili Total) 0.3 0.2-1.3 [facility] HospitalIcewjlkDUIKVYGWAK2728-27-15 21:21:00 Test Item Value Reference Range Interpretation Comments Monocytes # (test code 0.6 See_Comment [Aut omated message] The = Monocytes #) system which generated this result tra nsmitted reference range : <=0.8. The reference r nabor was not used to int erpret this result as normal/abnormal . [facility] HospitalPlabziaJRVPVXINVQ2586-61-57 21:21:00 Test Item Value Reference Range Interpretation Comments Lymphocytes # (test code = Lymphocytes 1.9 1.0-5.5 #) [facility] HospitalTtpznzeHOAVLMLFRX8546-66-28 21:21:00 Test Item Value Reference Range Interpretation Comments Eosinophils # (test code 0.0 See_Comment [A utomated message] The = Eosinophils #) system [facility] generated this result tra nsmitted reference range : <=0.5. The reference r nabor was not used to int erpret this result as normal/abnormal . [facility] HospitalTftlyibNVYRCKBPBZ1673-54-86 21:21:00 Test Item Value Reference Range Interpretation Comments Basophils # (test code 0.0 See_Comment [Aut omated message] The = Basophils #) system which generated this result tra nsmitted reference range : <=0.2. The reference r nabor was not used to int erpret this result as normal/abnormal . [facility] HospitalUxtsvbeVXNJCQDNYJ4772-16-47 21:21:00 Test Item Value Reference Range Interpretation Comments Eosinophils (test code = 0.1 See_Comment [A utomated message] The Eosinophils) system which ge nerated this result tra nsmitted reference range : <=4.0. The reference r nabor was not used to int erpret this result as normal/abnormal . [facility] HospitalTwgzcdiKMPEXTRULS6208-53-97 21:21:00 Test Item Value Reference Range Interpretation Comments Monocytes (test code = Monocytes) 3.8 2.0-12.0 [facility] HospitalIrcxwirACOZVDOXDA5556-96-38 21:21:00 Test Item Value Reference Range Interpretation Comments Basophils (test code = 0.2 See_Comment [Aut omated message] The Basophils) system which ge nerated this result tra nsmitted reference range : <=1.0. The reference r nabor was not used to int erpret this result as normal/abnormal . [facility] HospitalFdhmylgQWCPJGHQUE4796-80-68 21:21:00 Test Item Value Reference Range Interpretation Comments Segs-Bands # (test code = Segs-Bands #) 13.9 1.5-8.1 [facility] HospitalWxxxvyvBMXCBNCVFC1338-03-11 21:21:00 Test Item Value Reference Range Interpretation Comments Segs (test code = Segs) 84.1 45.0-75.0 [facility] HospitalFdsuqeuZZYTYPAXOG7988-48-35 21:21:00 Test Item Value Reference Range Interpretation Comments Lymphocytes (test code = Lymphocytes) 11.8 20.0-40.0 [facility] HospitalGmdxidrZTLOQOQTVK2170-57-04 21:21:00 Test Item Value Reference Range Interpretation Comments PTT (test code = PTT) 32.7 s 22.9-35.8 [facility] HospitalZpfriilWFTWEWVDES0183-32-75 21:21:00 Test Item Value Reference Range Interpretation Comments PT (test code = PT) 12.4 s 12.0-14.7 [facility] HospitalXcimeyiDMUYNISWSZ6770-54-65 21:21:00 Test Item Value Reference Range Interpretation Comments INR (test code = INR) 0.93 0.85-1.17 [facility] HospitalEvxpugxOLGBWTYKRL7985-39-12 21:21:00 Test Item Value Reference Range Interpretation Comments MPV (test code = MPV) 9.5 7.4-10.4 [facility] HospitalGhufjliGXWCQFESDL6463-31-15 21:21:00 Test Item Value Reference Range Interpretation Comments MCHC (test code = MCHC) 32.4 32.0-36.0 [facility] HospitalBhzrkxqEFBWPNMZNV3294-94-01 21:21:00 Test Item Value Reference Range Interpretation Comments RDW (test code = RDW) 14.2 11.5-14.5 [facility] HospitalNipynpwAZVTPFBSOH4728-85-20 21:21:00 Test Item Value Reference Range Interpretation Comments Platelet (test code = Platelet) 229 133-450 [facility] HospitalKrnaifaBVMEERJWXJ2633-97-83 21:21:00 Test Item Value Reference Range Interpretation Comments MCV (test code = MCV) 87.9 80.0-98.0 [facility] HospitalMozxeczFRQDKVHMQO5148-72-38 21:21:00 Test Item Value Reference Range Interpretation Comments WBC (test code = WBC) 16.5 3.7-10.4 [facility] HospitalNrbuvdpCSBLLTIFWJ7903-01-12 21:21:00 Test Item Value Reference Range Interpretation Comments RBC (test code = RBC) 4.32 4.20-5.40 [facility] HospitalCuwmhktEIAGHRCRDN3702-71-75 21:21:00 Test Item Value Reference Range Interpretation Comments Hgb (test code = Hgb) 12.3 12.0-16.0 [facility] HospitalMnqedfdLSNMVXPEMU9226-23-77 21:21:00 Test Item Value Reference Range Interpretation Comments Hct (test code = Hct) 37.9 36.0-48.0 [facility] HospitalQinivbrREXQHRLSIO5156-20-33 21:21:00 Test Item Value Reference Range Interpretation Comments MCH (test code = MCH) 28.5 pg 27.0-31.0 [facility] 21:21:00 Test Item Value Reference Range Interpretation Comments A/G Ratio (test code = A/G Ratio) 0.4 0.7-1.6 [facility]2015-06-19 21:21:00 Test Item Value Reference Range Interpretation Comments B/C Ratio (test code = B/C Ratio) 18 6-25 [facility]2015-06-19 21:21:00 Test Item Value Reference Range Interpretation Comments Globulin (test code = Globulin) 5.0 2.0-4.0 [facility]2015-06-19 21:21:00 Test Item Value Reference Range Interpretation Comments AGAP (test code = AGAP) 11.8 10.0-20.0 [facility]2015-06-19 21:21:00 Test Item Value Reference Range Interpretation Comments eGFR (test code = eGFR) 49 [facility]2015-06-19 21:21:00 Test Item Value Reference Range Interpretation Comments Glucose Lvl (test code = Glucose Lvl) 242 70-99 [facility]2015-06-19 21:21:00 Test Item Value Reference Range Interpretation Comments BUN (test code = BUN) 27 7-22 [facility]2015-06-19 21:21:00 Test Item Value Reference Range Interpretation Comments Creatinine Lvl (test code = Creatinine 1.5 0.5-1.4 Lvl) [facility]2015-06-19 21:21:00 Test Item Value Reference Range Interpretation Comments CO2 (test code = CO2) 22 24-32 [facility]2015-06-19 21:21:00 Test Item Value Reference Range Interpretation Comments Calcium Lvl (test code = Calcium Lvl) 8.7 8.5-10.5 [facility]2015-06-19 21:21:00 Test Item Value Reference Range Interpretation Comments Potassium Lvl (test code = Potassium 3.8 3.5-5.1 Lvl) [facility]2015-06-19 21:21:00 Test Item Value Reference Range Interpretation Comments Chloride Lvl (test code = Chloride Lvl) 110 95-109 [facility]2015-06-19 21:21:00 Test Item Value Reference Range Interpretation Comments Sodium Lvl (test code = Sodium Lvl) 140 135-145 [facility]2015-06-19 21:21:00 Test Item Value Reference Range Interpretation Comments AST (test code = AST) 29 See_Comment [Auto mated message] The system which ge nerated this result transmit marsha reference range : <=37. The reference range was not used to interpr et this result as charis l/abnormal. [facility]2015-06-19 21:21:00 Test Item Value Reference Range Interpretation Comments Alk Phos (test code = Alk Phos) 61 39-136 [facility]2015-06-19 21:21:00 Test Item Value Reference Range Interpretation Comments Albumin Lvl (test code = Albumin Lvl) 1.9 3.5-5.0 [facility]2015-06-19 21:21:00 Test Item Value Reference Range Interpretation Comments ALT (test code = ALT) 39 See_Comment [Auto mated message] The system which ge nerated this result transmit marsha reference range : <=65. The reference range was not used to interpr et this result as charis l/abnormal. [facility]2015-06-19 21:21:00 Test Item Value Reference Range Interpretation Comments Total Protein (test code = Total 6.9 6.4-8.4 Protein) [facility]2015-06-19 21:21:00 Test Item Value Reference Range Interpretation Comments Bili Total (test code = Bili Total) 0.3 0.2-1.3 [facility] HospitalMhvqsduDHCUDZTCZF2390-48-49 21:21:00 Test Item Value Reference Range Interpretation Comments Monocytes # (test code 0.6 See_Comment [Aut omated message] The = Monocytes #) system which generated this result tra nsmitted reference range : <=0.8. The reference r nabor was not used to int erpret this result as normal/abnormal . [facility] HospitalVotxkmqSRETWZAHMP6102-45-13 21:21:00 Test Item Value Reference Range Interpretation Comments Lymphocytes # (test code = Lymphocytes 1.9 1.0-5.5 #) [facility] HospitalNeyjgruXTRRQHOMDY4251-05-41 21:21:00 Test Item Value Reference Range Interpretation Comments Eosinophils # (test code 0.0 See_Comment [A utomated message] The = Eosinophils #) system wh h generated this result tra nsmitted reference range : <=0.5. The reference r nabor was not used to int erpret this result as normal/abnormal . [facility] HospitalOxlzrzuMFQWDAMPOP9254-80-55 21:21:00 Test Item Value Reference Range Interpretation Comments Basophils # (test code 0.0 See_Comment [Aut omated message] The = Basophils #) system which generated this result tra nsmitted reference range : <=0.2. The reference r nabor was not used to int erpret this result as normal/abnormal . [facility] HospitalRdtrwvdPMMGZCVLZP8771-11-77 21:21:00 Test Item Value Reference Range Interpretation Comments Eosinophils (test code = 0.1 See_Comment [A utomated message] The Eosinophils) system which ge nerated this result tra nsmitted reference range : <=4.0. The reference r nabor was not used to int erpret this result as normal/abnormal . [facility] HospitalLbvdbcpUQQYCTGYRE6517-41-89 21:21:00 Test Item Value Reference Range Interpretation Comments Monocytes (test code = Monocytes) 3.8 2.0-12.0 [facility] HospitalPlwvrulFPDHBRSHNJ2977-59-99 21:21:00 Test Item Value Reference Range Interpretation Comments Basophils (test code = 0.2 See_Comment [Aut omated message] The Basophils) system which ge nerated this result tra nsmitted reference range : <=1.0. The reference r nabor was not used to int erpret this result as normal/abnormal . [facility] HospitalAlyxrvjUTYXDUVELK3222-84-70 21:21:00 Test Item Value Reference Range Interpretation Comments Segs-Bands # (test code = Segs-Bands #) 13.9 1.5-8.1 [facility] HospitalNleudqsWPUNDBLVJW1957-67-00 21:21:00 Test Item Value Reference Range Interpretation Comments Segs (test code = Segs) 84.1 45.0-75.0 [facility] HospitalTgoslzpCEZMWGMCYZ7621-95-65 21:21:00 Test Item Value Reference Range Interpretation Comments Lymphocytes (test code = Lymphocytes) 11.8 20.0-40.0 [facility] HospitalKmfljwyZGELYEDWTR2728-75-76 21:21:00 Test Item Value Reference Range Interpretation Comments PTT (test code = PTT) 32.7 s 22.9-35.8 [facility] HospitalMydrkdhHSXCSHEKPH9537-91-36 21:21:00 Test Item Value Reference Range Interpretation Comments PT (test code = PT) 12.4 s 12.0-14.7 [facility] HospitalLybkobzPQMTDLVREQ2437-25-34 21:21:00 Test Item Value Reference Range Interpretation Comments INR (test code = INR) 0.93 0.85-1.17 [facility] HospitalBrrahjlVTVKCVOHJJ3277-61-20 21:21:00 Test Item Value Reference Range Interpretation Comments MPV (test code = MPV) 9.5 7.4-10.4 [facility] HospitalMwtpzbzVTMTYZHSQJ7667-63-69 21:21:00 Test Item Value Reference Range Interpretation Comments MCHC (test code = MCHC) 32.4 32.0-36.0 [facility] HospitalFufctzlTYUEHQWHGF2929-66-42 21:21:00 Test Item Value Reference Range Interpretation Comments RDW (test code = RDW) 14.2 11.5-14.5 [facility] HospitalLphhaqsBSMCEGYNZL9748-95-41 21:21:00 Test Item Value Reference Range Interpretation Comments Platelet (test code = Platelet) 229 133-450 [facility] HospitalUfosobzRSYPNUKJRX5271-97-12 21:21:00 Test Item Value Reference Range Interpretation Comments MCV (test code = MCV) 87.9 80.0-98.0 [facility] HospitalGfkjyzdPOKZVCLDWW3153-26-48 21:21:00 Test Item Value Reference Range Interpretation Comments WBC (test code = WBC) 16.5 3.7-10.4 [facility] HospitalCotmoctHNXXMVHBVL9396-40-97 21:21:00 Test Item Value Reference Range Interpretation Comments RBC (test code = RBC) 4.32 4.20-5.40 [facility] HospitalVslbpbxMUXKJYGIJF6574-98-79 21:21:00 Test Item Value Reference Range Interpretation Comments Hgb (test code = Hgb) 12.3 12.0-16.0 [facility] HospitalXsuzptxAIDPPROBRU7872-28-33 21:21:00 Test Item Value Reference Range Interpretation Comments Hct (test code = Hct) 37.9 36.0-48.0 [facility] HospitalOkjipnpLVTHJHCVUY7090-85-97 21:21:00 Test Item Value Reference Range Interpretation Comments MCH (test code = MCH) 28.5 pg 27.0-31.0 [facility]2015-06-19 21:21:00 Test Item Value Reference Range Interpretation Comments A/G Ratio (test code = A/G Ratio) 0.4 0.7-1.6 [facility]2015-06-19 21:21:00 Test Item Value Reference Range Interpretation Comments B/C Ratio (test code = B/C Ratio) 18 6-25 [facility]2015-06-19 21:21:00 Test Item Value Reference Range Interpretation Comments Globulin (test code = Globulin) 5.0 2.0-4.0 [facility]2015-06-19 21:21:00 Test Item Value Reference Range Interpretation Comments AGAP (test code = AGAP) 11.8 10.0-20.0 [facility]2015-06-19 21:21:00 Test Item Value Reference Range Interpretation Comments eGFR (test code = eGFR) 49 [facility]2015-06-19 21:21:00 Test Item Value Reference Range Interpretation Comments Glucose Lvl (test code = Glucose Lvl) 242 70-99 [facility]2015-06-19 21:21:00 Test Item Value Reference Range Interpretation Comments BUN (test code = BUN) 27 7-22 [facility]2015-06-19 21:21:00 Test Item Value Reference Range Interpretation Comments Creatinine Lvl (test code = Creatinine 1.5 0.5-1.4 Lvl) [facility]2015-06-19 21:21:00 Test Item Value Reference Range Interpretation Comments CO2 (test code = CO2) 22 24-32 [facility]2015-06-19 21:21:00 Test Item Value Reference Range Interpretation Comments Calcium Lvl (test code = Calcium Lvl) 8.7 8.5-10.5 [facility]2015-06-19 21:21:00 Test Item Value Reference Range Interpretation Comments Potassium Lvl (test code = Potassium 3.8 3.5-5.1 Lvl) [facility]2015-06-19 21:21:00 Test Item Value Reference Range Interpretation Comments Chloride Lvl (test code = Chloride Lvl) 110 95-109 [facility]2015-06-19 21:21:00 Test Item Value Reference Range Interpretation Comments Sodium Lvl (test code = Sodium Lvl) 140 135-145 [facility]2015-06-19 21:21:00 Test Item Value Reference Range Interpretation Comments AST (test code = AST) 29 See_Comment [Auto mated message] The system which ge nerated this result transmit marsha reference range : <=37. The reference range was not used to interpr et this result as charis l/abnormal. [facility]2015-06-19 21:21:00 Test Item Value Reference Range Interpretation Comments Alk Phos (test code = Alk Phos) 61 39-136 [facility]2015-06-19 21:21:00 Test Item Value Reference Range Interpretation Comments Albumin Lvl (test code = Albumin Lvl) 1.9 3.5-5.0 [facility]2015-06-19 21:21:00 Test Item Value Reference Range Interpretation Comments ALT (test code = ALT) 39 See_Comment [Auto mated message] The system which ge nerated this result transmit marsha reference range : <=65. The reference range was not used to interpr et this result as charis l/abnormal. [facility]2015-06-19 21:21:00 Test Item Value Reference Range Interpretation Comments Total Protein (test code = Total 6.9 6.4-8.4 Protein) [facility]2015-06-19 21:21:00 Test Item Value Reference Range Interpretation Comments Bili Total (test code = Bili Total) 0.3 0.2-1.3 [place] 436295-06-19 21:21:00 Test Item Value Reference Range Interpretation Comments Monocytes # (test code 0.6 See_Comment [Aut omated message] The = Monocytes #) system which generated this result tra nsmitted reference range : <=0.8. The reference r nabor was not used to int erpret this result as normal/abnormal . [facility] HospitalHjbdlpnKRYYJVSOXO7482-64-24 21:21:00 Test Item Value Reference Range Interpretation Comments Lymphocytes # (test code = Lymphocytes 1.9 1.0-5.5 #) [facility] HospitalLkrpudeNXRQWTDTLH4923-50-78 21:21:00 Test Item Value Reference Range Interpretation Comments Eosinophils # (test code 0.0 See_Comment [A utomated message] The = Eosinophils #) system wh h generated this result tra nsmitted reference range : <=0.5. The reference r nabor was not used to int erpret this result as normal/abnormal . [facility] HospitalZpeqkosSLYYJKPCCN4174-73-84 21:21:00 Test Item Value Reference Range Interpretation Comments Basophils # (test code 0.0 See_Comment [Aut omated message] The = Basophils #) system which generated this result tra nsmitted reference range : <=0.2. The reference r nabor was not used to int erpret this result as normal/abnormal . [facility] HospitalTnzhxkqEGHWMVKLTS7683-82-59 21:21:00 Test Item Value Reference Range Interpretation Comments Eosinophils (test code = 0.1 See_Comment [A utomated message] The Eosinophils) system which ge nerated this result tra nsmitted reference range : <=4.0. The reference r nabor was not used to int erpret this result as normal/abnormal . [facility] HospitalTbzdqxdSQBFNCJGVE1243-40-45 21:21:00 Test Item Value Reference Range Interpretation Comments Monocytes (test code = Monocytes) 3.8 2.0-12.0 [facility] HospitalGxamdtwHUDXJPKNCK1212-34-50 21:21:00 Test Item Value Reference Range Interpretation Comments Basophils (test code = 0.2 See_Comment [Aut omated message] The Basophils) system which ge nerated this result tra nsmitted reference range : <=1.0. The reference r nabor was not used to int erpret this result as normal/abnormal . [facility] HospitalDyqyhozAUMMMSKERR3717-07-28 21:21:00 Test Item Value Reference Range Interpretation Comments Segs-Bands # (test code = Segs-Bands #) 13.9 1.5-8.1 [facility] HospitalCkyjbarAZJJLUVPFP6710-69-04 21:21:00 Test Item Value Reference Range Interpretation Comments Segs (test code = Segs) 84.1 45.0-75.0 [facility] HospitalIboltdgBDWZEJAOFO7154-51-33 21:21:00 Test Item Value Reference Range Interpretation Comments Lymphocytes (test code = Lymphocytes) 11.8 20.0-40.0 [facility] HospitalBjgoozwLXWFEDMUZI8106-60-89 21:21:00 Test Item Value Reference Range Interpretation Comments PTT (test code = PTT) 32.7 s 22.9-35.8 [facility] HospitalHpbgcvxGDADVCUJMN4829-14-17 21:21:00 Test Item Value Reference Range Interpretation Comments PT (test code = PT) 12.4 s 12.0-14.7 [facility] HospitalTqtenmuWFBWFYAGQV6653-97-32 21:21:00 Test Item Value Reference Range Interpretation Comments INR (test code = INR) 0.93 0.85-1.17 [facility] HospitalPrukxdaWVCHOTFDAE0457-35-32 21:21:00 Test Item Value Reference Range Interpretation Comments MPV (test code = MPV) 9.5 7.4-10.4 [facility] HospitalNlwtuiwDRCOFYTHZV2275-32-20 21:21:00 Test Item Value Reference Range Interpretation Comments MCHC (test code = MCHC) 32.4 32.0-36.0 [facility] HospitalJzimdozFPILZIHCAC1813-67-07 21:21:00 Test Item Value Reference Range Interpretation Comments RDW (test code = RDW) 14.2 11.5-14.5 [facility] HospitalTgugmqjJPMTZLRVKU6616-01-17 21:21:00 Test Item Value Reference Range Interpretation Comments Platelet (test code = Platelet) 229 133-450 [facility] HospitalEowlgzyIPHNNESEGJ3535-35-23 21:21:00 Test Item Value Reference Range Interpretation Comments MCV (test code = MCV) 87.9 80.0-98.0 [facility] HospitalWhmxespDKMKGIPNOZ6355-85-67 21:21:00 Test Item Value Reference Range Interpretation Comments WBC (test code = WBC) 16.5 3.7-10.4 [facility] HospitalMdyygvqZGAXUORDRU4732-30-03 21:21:00 Test Item Value Reference Range Interpretation Comments RBC (test code = RBC) 4.32 4.20-5.40 [facility]WzncwurGSUPHNOBEA1080-39-05 21:21:00 Test Item Value Reference Range Interpretation Comments Hgb (test code = Hgb) 12.3 12.0-16.0 [facility] HospitalOsoylgtHAKVCFUOYG5830-03-43 21:21:00 Test Item Value Reference Range Interpretation Comments Hct (test code = Hct) 37.9 36.0-48.0 [facility] HospitalOkydqffMDPOFPLNCH4711-36-25 21:21:00 Test Item Value Reference Range Interpretation Comments MCH (test code = MCH) 28.5 pg 27.0-31.0 [facility] HermannCHEM SQXIG6809-73-07 21:21:000.4[facility] HermannCHEM PANEL 2014-08-29 21:21:0018[facility] HermannCHEM OHAJX7572-58-72 21:21:005.0[facility]annCHEM NMWVL5602-93-22 21:21:0011.8[facility] HermannCHEM DKRMN4702-96-51 21:21:0049[facility]annCHEM UYRCP8519-14-65 21:21:41513Jqkwzstb HermannCHEM UQRDA2042-18-64 21:21:0027[facility] HermannCHEM UWDFZ5637-97-05 21:21:001.5 [facility]annCHE[facility] ENSCA1681-00-71 21:21:0022[facility] HermannCHEM PANEL 2014-08-29 21:21:008.7[facility] HermannCHEM QQWBI3292-63-55 21:21:003.8[facility] HermannCHEM DDNWF1458-70-71 21:21:45331Hvyyebvd HermannCHEM QHSGW2391-35-20 21:21:55676Lkrhyafw HermannCHEM UCAUB9751-09-64 21:21:0029[facility] HermannCHEM XWMUT8646-43-22 21:21:0061[facility]annCHEM MOSTQ4371-18-84 21:21:001.9 [facility]annCHE[facility] NLCTH2844-86-96 21:21:0039[facility] HermannCHEM PANEL 2014-08-29 21:21:006.9[facility] HermannCHEM LNEIM1976-96-93 21:21:000.3[facility] VflvoizURZBXSNZVB2186-34-81 21:21:000.6[facility] OctumvsJORNHKXEDL0999-98-40 21:21:001.9[facility] XypynalYGUXFTQGMI6326-31-68 21:21:000.0[facility] CWUTJFYNHA7055-31-95 21:21:000.0[facility] KmvhpmtLEOLOAZGVJ4241-97-76 21:21:000.1 [facility] WbxcglmBZVYGFCYFC3092-47-58 21:21:003.8[facility] HermannHEMATOLOGY 2014-08-29 21:21:000.2[facility] QczdjmrTSFAKOSZPB3289-25-71 21:21:0013.9[facility] MjqitdlLRDIKXSJFR2380-17-57 21:21:0084.1[facility] JjhlfroYFOHDLXKPP0440-59-38 21:21:0011.8[facility] UgzrikwQTMOLONXFG2746-52-87 21:21:00 Test Item Value Reference Range Interpretation Comments PTT (test code = PTT) 32.7 s 22.9-35.8 [facility] PtkjdnnYXDLHRFCFI9284-54-30 21:21:00 Test Item Value Reference Range Interpretation Comments PT (test code = PT) 12.4 s 12.0-14.7 [facility] LskvhptLBKDELQCZK4203-12-47 21:21:000.93[facility] HermannHEMATOLOGY 2014-08-29 21:21:009.5[facility] QoiugftANQHJAMREF8713-08-66 21:21:0032.4[facility] XblprjsSDDKXGVHDN6467-84-32 21:21:0014.2[facility] SagjjqwOTXUGQISXJ1710-67-22 21:21:21503Ccodyvbs CuzwwyxGIUHOWHGBC5522-12-28 21:21:0087.9[facility] DSWOWWLFNB1073-04-10 21:21:0016.5[facility] VzjicnvDSNERCEXAK5900-66-22 21:21:00 4.32[facility] DkkegyvSHRIYRGYVE4919-47-31 21:21:0012.3[facility]annHEMATOLOGY 2014-08-29 21:21:0037.9[facility] RdpfvtxIFKBAAXEMZ4503-25-07 21:21:00 Test Item Value Reference Range Interpretation Comments MCH (test code = MCH) 28.5 pg 27.0-31.0 [facility]annCHEM ZYMET3728-07-08 21:21:000.4[facility]annCHEM PANEL 2014-08-29 21:21:0018[facility]annCHEM JJRVQ7363-84-28 21:21:005.0[facility]annCHEM EUAEQ9634-68-42 21:21:0011.8[facility]annCHEM NYNDO4426-06-05 21:21:0049[facility]annCHEM XFBSY7532-03-12 21:21:24323Tdxcggnt HermannCHEM PYDGV8737-05-49 21:21:0027[facility]annCHEM RGJNT1110-25-50 21:21:001.5 [facility]annCHE[facility] SZUXZ4678-42-58 21:21:0022[facility]annCHEM PANEL 2014-08-29 21:21:008.7[facility]annCHEM PDNZP3888-30-17 21:21:003.8[facility]annCHEM KPNJX7297-95-27 21:21:37517Gmtrgzbv HermannCHEM NUZJM2785-53-64 21:21:09390Terfgqdn HermannCHEM XOXTI5567-09-89 21:21:0029[facility]annCHEM UKBKU8119-82-70 21:21:0061[facility]annCHEM VWPIQ7481-63-50 21:21:001.9 [facility]annCHE[facility] YDRCH4280-54-05 21:21:0039[facility]annCHEM PANEL 2014-08-29 21:21:006.9[facility]annCHEM HDAFE5923-73-93 21:21:000.3[facility] MewkgenEOIYLHIYWG5752-95-86 21:21:000.6[facility] VvdjbfwZJDUKZQLFD4047-49-47 21:21:001.9[facility] UoyvjlvJBSJWGEDFT2219-50-07 21:21:000.0[facility] GWSSSMWXKL5250-14-58 21:21:000.0[facility] ElknepkPAHUFHACXY2526-96-93 21:21:000.1 [facility] XdgjylkAMCBGCGAGN5779-45-69 21:21:003.8[facility]annHEMATOLOGY 2014-08-29 21:21:000.2[facility] LlodmgfNRFSBAYMJZ7705-83-90 21:21:0013.9[facility] XnsecmnNBOFVVAUUO4842-96-54 21:21:0084.1[facility] VqvxhxuILLGATSCQD7179-70-08 21:21:0011.8[facility] VregmmkLVLKATGTGS1470-33-04 21:21:00 Test Item Value Reference Range Interpretation Comments PTT (test code = PTT) 32.7 s 22.9-35.8 [facility] OketlzwWPVYSYGUWN9506-75-27 21:21:00 Test Item Value Reference Range Interpretation Comments PT (test code = PT) 12.4 s 12.0-14.7 [facility] JtbkgtuGIYCRKDMUF4500-72-16 21:21:000.93[facility]annHEMATOLOGY 2014-08-29 21:21:009.5[facility] BgeetfiARCPWDHBTU1148-23-38 21:21:0032.4[facility] JcyieeeYVCBMINUIF2476-88-15 21:21:0014.2[facility] BmkvgbeCLRFTKAIKQ3733-80-66 21:21:48547Weotksnw AzcecqyWDFZWWONML8190-51-64 21:21:0087.9[facility] GGRGWXTWGS9717-48-61 21:21:0016.5[facility] SyjkhgkKBAOHXVHJS2876-82-18 21:21:00 4.32[facility] WfbmgsbYSQVMHLZYW6199-58-08 21:21:0012.3[facility]annHEMATOLOGY 2014-08-29 21:21:0037.9[facility] XhpymodJVJYWKXQPV8518-14-40 21:21:00 Test Item Value Reference Range Interpretation Comments MCH (test code = MCH) 28.5 pg 27.0-31.0 [facility] HermannCHEM JAKBN1884-47-53 21:21:00 Test Item Value Reference Range Interpretation Comments A/G Ratio (test code = A/G Ratio) 0.4 0.7-1.6 [facility]2015-06-19 21:21:00 Test Item Value Reference Range Interpretation Comments B/C Ratio (test code = B/C Ratio) 18 6-25 [facility]2015-06-19 21:21:00 Test Item Value Reference Range Interpretation Comments Globulin (test code = Globulin) 5.0 2.0-4.0 [facility]2015-06-19 21:21:00 Test Item Value Reference Range Interpretation Comments AGAP (test code = AGAP) 11.8 10.0-20.0 [facility]2015-06-19 21:21:00 Test Item Value Reference Range Interpretation Comments eGFR (test code = eGFR) 49 [facility]2015-06-19 21:21:00 Test Item Value Reference Range Interpretation Comments Glucose Lvl (test code = Glucose Lvl) 242 70-99 [facility]2015-06-19 21:21:00 Test Item Value Reference Range Interpretation Comments BUN (test code = BUN) 27 7-22 [facility]2015-06-19 21:21:00 Test Item Value Reference Range Interpretation Comments Creatinine Lvl (test code = Creatinine 1.5 0.5-1.4 Lvl) [facility]2015-06-19 21:21:00 Test Item Value Reference Range Interpretation Comments CO2 (test code = CO2) 22 24-32 [facility]2015-06-19 21:21:00 Test Item Value Reference Range Interpretation Comments Calcium Lvl (test code = Calcium Lvl) 8.7 8.5-10.5 [facility]2015-06-19 21:21:00 Test Item Value Reference Range Interpretation Comments Potassium Lvl (test code = Potassium 3.8 3.5-5.1 Lvl) [facility]2015-06-19 21:21:00 Test Item Value Reference Range Interpretation Comments Chloride Lvl (test code = Chloride Lvl) 110 95-109 [facility]2015-06-19 21:21:00 Test Item Value Reference Range Interpretation Comments Sodium Lvl (test code = Sodium Lvl) 140 135-145 [facility]2015-06-19 21:21:00 Test Item Value Reference Range Interpretation Comments AST (test code = AST) 29 See_Comment [Auto mated message] The system which ge nerated this result transmit marsha reference range : <=37. The reference range was not used to interpr et this result as charis l/abnormal. [facility]2015-06-19 21:21:00 Test Item Value Reference Range Interpretation Comments Alk Phos (test code = Alk Phos) 61 39-136 [facility]2015-06-19 21:21:00 Test Item Value Reference Range Interpretation Comments Albumin Lvl (test code = Albumin Lvl) 1.9 3.5-5.0 [facility]2015-06-19 21:21:00 Test Item Value Reference Range Interpretation Comments ALT (test code = ALT) 39 See_Comment [Auto mated message] The system which ge nerated this result transmit marsha reference range : <=65. The reference range was not used to interpr et this result as charis l/abnormal. [facility]2015-06-19 21:21:00 Test Item Value Reference Range Interpretation Comments Total Protein (test code = Total 6.9 6.4-8.4 Protein) [facility]2015-06-19 21:21:00 Test Item Value Reference Range Interpretation Comments Bili Total (test code = Bili Total) 0.3 0.2-1.3 [facility]EkwglipDPQNOCUOLQ5572-62-95 21:21:00 Test Item Value Reference Range Interpretation Comments Monocytes # (test code 0.6 See_Comment [Aut omated message] The = Monocytes #) system which generated this result tra nsmitted reference range : <=0.8. The reference r nabor was not used to int erpret this result as normal/abnormal . [facility] HospitalYbyptsiZLYNHUHFLK0093-88-12 21:21:00 Test Item Value Reference Range Interpretation Comments Lymphocytes # (test code = Lymphocytes 1.9 1.0-5.5 #) [facility] HospitalVcctfjaHCDHFQFUMO0334-41-49 21:21:00 Test Item Value Reference Range Interpretation Comments Eosinophils # (test code 0.0 See_Comment [A utomated message] The = Eosinophils #) system whic h generated this result tra nsmitted reference range : <=0.5. The reference r nabor was not used to int erpret this result as normal/abnormal . [facility] HospitalOzkvdqaJSPYJMCXUT9673-68-67 21:21:00 Test Item Value Reference Range Interpretation Comments Basophils # (test code 0.0 See_Comment [Aut omated message] The = Basophils #) system which generated this result tra nsmitted reference range : <=0.2. The reference r nabor was not used to int erpret this result as normal/abnormal . [facility] HospitalHboqzbkAGUGASRYTW0369-35-15 21:21:00 Test Item Value Reference Range Interpretation Comments Eosinophils (test code = 0.1 See_Comment [A utomated message] The Eosinophils) system which ge nerated this result tra nsmitted reference range : <=4.0. The reference r nabor was not used to int erpret this result as normal/abnormal . [facility] HospitalQrvshfoLFGOVAPXRS2371-39-91 21:21:00 Test Item Value Reference Range Interpretation Comments Monocytes (test code = Monocytes) 3.8 2.0-12.0 [facility] HospitalFtkpgxqVFEDYWMWLC8616-58-31 21:21:00 Test Item Value Reference Range Interpretation Comments Basophils (test code = 0.2 See_Comment [Aut omated message] The Basophils) system which ge nerated this result tra nsmitted reference range : <=1.0. The reference r nabor was not used to int erpret this result as normal/abnormal . [facility] HospitalNrappocOQISBAWRDF4524-89-04 21:21:00 Test Item Value Reference Range Interpretation Comments Segs-Bands # (test code = Segs-Bands #) 13.9 1.5-8.1 [facility] HospitalMwdvobbDILUDCAIED7693-24-62 21:21:00 Test Item Value Reference Range Interpretation Comments Segs (test code = Segs) 84.1 45.0-75.0 [facility] HospitalBqjzjupEMJUGEUITL2099-53-88 21:21:00 Test Item Value Reference Range Interpretation Comments Lymphocytes (test code = Lymphocytes) 11.8 20.0-40.0 [facility] HospitalAcnsbpdVAXQTSCXJC9607-86-91 21:21:00 Test Item Value Reference Range Interpretation Comments PTT (test code = PTT) 32.7 s 22.9-35.8 [facility] HospitalXyrptjxEHQLFZVTTR3480-95-32 21:21:00 Test Item Value Reference Range Interpretation Comments PT (test code = PT) 12.4 s 12.0-14.7 [facility] HospitalMpoyoirLQYRBAZYJB5730-01-09 21:21:00 Test Item Value Reference Range Interpretation Comments INR (test code = INR) 0.93 0.85-1.17 [facility] HospitalLtfsrfaLHSXLBGFFT9445-24-97 21:21:00 Test Item Value Reference Range Interpretation Comments MPV (test code = MPV) 9.5 7.4-10.4 [facility] HospitalYauodhnJOXARQZUFJ5797-35-10 21:21:00 Test Item Value Reference Range Interpretation Comments MCHC (test code = MCHC) 32.4 32.0-36.0 [facility] HospitalThjxsizCJLISPRDLE3929-96-71 21:21:00 Test Item Value Reference Range Interpretation Comments RDW (test code = RDW) 14.2 11.5-14.5 [facility] HospitalPrmoanaNJMOULONQD9704-39-25 21:21:00 Test Item Value Reference Range Interpretation Comments Platelet (test code = Platelet) 229 133-450 [facility] HospitalNmnayijLOFBQHZJHP6836-86-30 21:21:00 Test Item Value Reference Range Interpretation Comments MCV (test code = MCV) 87.9 80.0-98.0 [facility] HospitalOlsxvhuEFEKYMDIGD0870-60-58 21:21:00 Test Item Value Reference Range Interpretation Comments WBC (test code = WBC) 16.5 3.7-10.4 [facility] HospitalXtscircQMEGPHZWGP0273-35-05 21:21:00 Test Item Value Reference Range Interpretation Comments RBC (test code = RBC) 4.32 4.20-5.40 [facility] HospitalYifsikzJXXUOWUSKD9317-58-50 21:21:00 Test Item Value Reference Range Interpretation Comments Hgb (test code = Hgb) 12.3 12.0-16.0 [facility] HospitalWovuybdTZISWKCZZY7613-77-62 21:21:00 Test Item Value Reference Range Interpretation Comments Hct (test code = Hct) 37.9 36.0-48.0 [facility] HospitalUabwttlKIFIILOSNL4669-19-97 21:21:00 Test Item Value Reference Range Interpretation Comments MCH (test code = MCH) 28.5 pg 27.0-31.0 [facility] OQVAD9590[facility]19-28 21:21:000.4[facility]annCHEM PANEL 2014-08-29 21:21:0018[facility]annCHEM CKSNW9788-13-73 21:21:005.0[facility]annCHEM KAXNV9600-60-99 21:21:0011.8[facility]annCHEM RUYPE7304-61-23 21:21:0049[facility]annCHEM SGEIS6717-38-48 21:21:51412Mwjhucbc HermannCHEM MZHVH7348-88-24 21:21:0027[facility]annCHEM FBXPX8961-48-50 21:21:001.5 [facility]annCHE[facility] KHPYO7526-39-79 21:21:0022[facility]annCHEM PANEL 2014-08-29 21:21:008.7[facility]annCHEM VZZRY9163-90-91 21:21:003.8[facility]annCHEM HLMIG4552-07-53 21:21:72314Tibqtgau HermannCHEM CRXHP5036-71-07 21:21:47841Aoklaerz HermannCHEM HELRH1302-28-98 21:21:0029[facility]annCHEM SFJMP2661-89-15 21:21:0061[facility]annCHEM YMHNI3023-16-08 21:21:001.9 [facility]annCHE[facility] QZIVD2342-27-45 21:21:0039[facility]annCHEM PANEL 2014-08-29 21:21:006.9[facility]annCHEM PMVOA2576-27-50 21:21:000.3[facility] NoekjqjXWJPBRVKVK0840-41-60 21:21:000.6[facility] UrqzuumNZBQJUKGXZ5114-82-82 21:21:001.9[facility] VgbavcuFRKAUEJFUQ4100-85-31 21:21:000.0[facility] MYTSVUOCOZ0982-53-72 21:21:000.0[facility] EikqrxiXUJYKTKMOE2316-51-47 21:21:000.1 [facility] AdedrddJIIBNZQLJZ4898-09-12 21:21:003.8[facility]annHEMATOLOGY 2014-08-29 21:21:000.2[facility] BivctfeNQYFEBFVFB5283-38-49 21:21:0013.9[facility] YbhbmzyUBEMAJYNIA7542-19-14 21:21:0084.1[facility] UiuzikhGIQEHWXFGQ8933-34-65 21:21:0011.8[facility] PtkilzpVSXJMAGRCE4087-82-38 21:21:00 Test Item Value Reference Range Interpretation Comments PTT (test code = PTT) 32.7 s 22.9-35.8 [facility] ChfztbzXMBYIPAAYT6277-29-01 21:21:00 Test Item Value Reference Range Interpretation Comments PT (test code = PT) 12.4 s 12.0-14.7 [facility] HcohgtgUUSQAJGBCZ9765-01-84 21:21:000.93[facility]annHEMATOLOGY 2014-08-29 21:21:009.5[facility] XiguzpjFOOQEGHVWI7703-05-20 21:21:0032.4[facility] NlinshjZRGNXBQBLI9534-85-62 21:21:0014.2[facility] ShahwmsULFMJEPMGG5221-88-27 21:21:23468Ktocconi HlliclrFZGKBTGVEN6708-94-66 21:21:0087.9[facility] AFHROFURWJ0881-59-80 21:21:0016.5[facility] ArrjmbjBTGXQZJVDW5056-28-57 21:21:00 4.32[facility] YyfaizoQFFYSUZLNQ7310-03-66 21:21:0012.3[facility]annHEMATOLOGY 2014-08-29 21:21:0037.9[facility] ZwlbwrqHQOWJYASYT6343-70-99 21:21:00 Test Item Value Reference Range Interpretation Comments MCH (test code = MCH) 28.5 pg 27.0-31.0 [facility]annCHEM UMTUD8123-32-79 21:21:000.4[facility] HermannCHEM PANEL 2014-08-29 21:21:0018[facility] HermannCHEM FNVEG3463-95-91 21:21:005.0[facility]annCHEM XDTWP0746-47-68 21:21:0011.8[facility] HermannCHEM MHYRG6225-34-98 21:21:0049[facility]annCHEM TOBFS7405-12-88 21:21:87972Zrpfzpfw HermannCHEM QIBGX1447-96-99 21:21:0027[facility] HermannCHEM YLFTE3791-05-54 21:21:001.5 [facility]annCHEM TTKOF7060-13-05 21:21:0022[facility]annCHEM PANEL 2014-08-29 21:21:008.7[facility] HermannCHEM IJQNX5415-37-06 21:21:003.8[facility] HermannCHEM JJXFE1287-14-24 21:21:19107Dwxytdus HermannCHEM SMTGX7983-55-75 21:21:80757Wwqkkshi HermannCHEM UPXIT4431-71-85 21:21:0029[facility] HermannCHEM ZOLKD7709-44-96 21:21:0061[facility]annCHEM GQHTA7139-01-15 21:21:001.9 [facility]annCHEM HOKXZ1001-09-89 21:21:0039[facility]annCHEM PANEL 2014-08-29 21:21:006.9[facility] HermannCHEM BNVSZ9946-93-19 21:21:000.3[facility] BwqyxpwUWLWLLLAMW2777-98-43 21:21:000.6[facility] AsqnqzrTSOFQDESER6900-53-30 21:21:001.9[facility] MosibbwHPQKANBJCG6854-86-45 21:21:000.0[facility] STFQUPKMHW5692-54-57 21:21:000.0[facility] QmiokkjXBVVYMCPBN1535-85-64 21:21:000.1 [facility] VjyfftbISFDWWRFGK2908-61-19 21:21:003.8[facility]annHEMATOLOGY 2014-08-29 21:21:000.2[facility] YyxmrahOFIEPQQPIA5159-02-18 21:21:0013.9[facility] PggxbkzRXSGYCPJEQ5440-89-51 21:21:0084.1[facility] TluhvonNRSLZDXOXW1089-06-02 21:21:0011.8[facility] BhoowmtRLLOJWCFUZ1335-60-88 21:21:00 Test Item Value Reference Range Interpretation Comments PTT (test code = PTT) 32.7 s 22.9-35.8 [facility] ZcewpwrUGPSFCRJUZ0508-64-58 21:21:00 Test Item Value Reference Range Interpretation Comments PT (test code = PT) 12.4 s 12.0-14.7 [facility] XnqrhdlCRICYUMUCE5510-15-13 21:21:000.93[facility] HermannHEMATOLOGY 2014-08-29 21:21:009.5[facility] PsklzybLOGGCXZHQB4257-18-39 21:21:0032.4[facility] OzviybxWQLEKRHOJD6113-49-92 21:21:0014.2[facility] RlxuystCBXFCTWSGJ4857-93-93 21:21:58998Tbbhebkd CgnrcozNISGPAXDUC6760-75-55 21:21:0087.9[facility] SVWQBDTMJD9314-24-18 21:21:0016.5[facility] FmtdhmaVYXSUBNMJM8520-67-24 21:21:00 4.32[facility] ItdukmgHWQYUSHEFM5174-01-48 21:21:0012.3[facility]annHEMATOLOGY 2014-08-29 21:21:0037.9[facility] ZfggfhyYELJHLNZZV1119-45-19 21:21:00 Test Item Value Reference Range Interpretation Comments MCH (test code = MCH) 28.5 pg 27.0-31.0 [facility]
[2022-04-19 08:34] LABS: Absolute Lymphocytes (CBC) 0.8 K/uL (0.7-4.9); Hematocrit 34.7 % (36.0-45.0); Lymphocytes % 13.6 % (15.3-44.8); MPV 9.1 fL (7.6-11.3); RBC Red Blood Cell Count 3.99 M/uL (3.86-4.86)
[2022-04-19 08:44] LABS: Protime INR 1.3
[2022-04-19 08:58] LABS: Troponin High Sensitivity 22.2 pg/mL (<58.9)
--- NOTE | 2022-04-19 10:05 | RAD REPORT ---
EXAM DESCRIPTION: RAD - Chest Single View - 04/19/2022 8:57 am CLINICAL HISTORY: MALAISE COMPARISON: Portable 09/08/2020 TECHNIQUE: AP portable chest image was obtained 04/19/2022 8:57 am . FINDINGS: Bilateral pleural effusions are present more prominent on the right. Interstitial markings are prominent. There is cardiomegaly and vascular engorgement. Sternotomy wires are in place. Cardiac leads overlie the chest. No pneumothorax. No acute bony abnor mality seen. No acute aortic findings suspected. IMPRESSION: Moderate severity CHF/ volume overload pattern.
--- NOTE | 2022-04-19 11:18 | ER ---
Nurse's Notes [facility] Name: Yamile Brooke Age: 52 yrs Sex: Female : 1970 Arrival Date: 04/19/2022 Time: 07:54 Bed 5 Private MD: Diagnosis: Accidental Overdose Presentation: 04/19 07:59 Chief complaint: EMS states: Toned out to [facility] for possible stroke, jl7 last known normal 599, last dialysis , missed Monday. Dialysis gave 25 Phenergan IVP at 0600, pt fell asleep and was with snoring respirations, received 1.5 respirations, lethargic on EMS arrival with equal director of creative services and facial symmetry, pt oriented x 3 and lethargic, BGL 160. Coronavirus screen: At this time, the client does not indicate any symptoms associated with coronavirus-19. Ebola Screen: No symptoms or risks identified at this time. An acute neurological deficit is present. The patients blood glucose was checked prior to arriving to the hospital and was found to be hyperglycemic. Initial Sepsis Screen: Does the patient meet any 2 criteria? No. Patient's initial sepsis screen is negative. Does the patient have a suspected source of infection? No. Patient's initial sepsis screen is negative. Risk Assessment: Do you want to hurt yourself or someone else? Patient reports no desire to harm self or others. Onset of symptoms is unknown. Care prior to arrival: Glucose check: 160. 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 N/A - Hysterectomy jl7 Stroke Activation: Symptom onset < 3 hours Physician: Stroke Attending; Name: ; Notified At: ; Arrived At: Physician: Chief Stroke Resident; Name: ; Notified At: ; Arrived At: Physician: Stroke Resident; Name: ; Notified At: ; Arrived At: Physician: ED Attending; Name: Heraclio; Notified At: 07:58; Arrived At: 07:58 Physician: ED Resident; Name: ; Notified At: ; Arrived At: Historical: - Allergies: 08:05 tramadol; jl7 08:05 Iodine; jl7 - Home Meds: 11:08 gabapentin 100 mg oral cap 2 caps BID [Active]; hydralazine 10 mg oral tab [Active]; jl7 Protection 5-325 mg Oral tab 1 tab every 4 hours [Active]; Linzess 145 mcg oral cap once daily [Active]; Lopressor 100 mg oral tab 1 tab 2 times per day [Active]; Nifedipine ER Oral 90 mg twice a day [Active]; Eliquis 5 mg oral tab 2 times per day [Active]; aspirin 81 mg Oral TbEC once daily [Active]; Lipitor 40 mg oral tab once daily [Active]; Coreg 25 mg Oral tab 2 times per day [Active]; cinacalcet oral [Active]; Trulicity 0.75 mg/0.5 mL subcutaneous pnij 0.5 mL once wkly [Active]; ergocalciferol (vitamin D2) 1,250 mcg (50,000 unit) oral cap [Active]; furosemide 40 mg Oral tab 1 tab once daily [Active]; Novolin 70/30 InnoLet Insulin 100 unit/mL (70-30) Sub-Q inpn 35 units twice a day [Active]; prednisolone acetate 0.12 % Opht drps 1 drop 2 times per day [Active]; sevelamer carbonate 800 mg oral tab 1 tab 3 times per day [Active]; valsartan 160 mg oral tab 1 tab 2 times per day [Active]; - PMHx: 08:05 Anemia; CHF; CAD; ESRD; hepatitis C; hydrocephalus; Hyperlipidemia; Hypertension; jl7 ADD/ADHD; Diabetes - NIDDM; Dialysis; Tues, Thurs, Sat; right arm blood clots; right eye blindness; pulmonary hypertension; CVA; - PSHx: 08:05 Left upper arm fistula; section; Cholecystectomy; Coronary artery bypass jl7 graft; Total abdominal hysterectomy; - Immunization history:: Adult Immunizations unknown. - Social history:: Smoking status: Patient denies any tobacco usage or history of. Screenin:05 [facility] ED Fall Risk Assessment (Adult) History of falling in the last 3 months, ko1 including since admission No falls in past 3 months (0 pts) Confusion or Disorientation Yes (5 pts) Intoxicated or Sedated Yes (3 pts) Impaired Gait No (0 pts) Mobility Assist Device Used No (0 pt) Altered Elimination No (0 pt) Score/Fall Risk Level 3 or more points = High Risk Oriented to surroundings, Maintained a safe environment, Educated pt \\T\\ family on fall prevention, incl call for assistance when getting out of bed, Assessed \\T\\ reinforced patient's understanding of fall precautions, Provided non-skid footwear, Hourly rounding (assess needs \\T\\ fall precautionary measures) done, Used ambulatory aids as needed (educated on \\T\\ assisted with), Used gait belt as appropriate Implemented a Fall Risk Plan of Care, Apply high fall risk patient identification: yellow non skid footwear/ fall signage, Placed fall mat w/ non beveled edge next to bed, Activated bed/chair alarm, Remained w/in arm's length of patient and in sight while toileting, Offered frequent toileting (1:1 observation), Remained with patient while ambulating, Utilized family, sitter, or virtual food operations manager as indicated. Abuse screen: Denies threats or abuse. Denies injuries from another. Nutritional screening: No deficits noted. Tuberculosis screening: No symptoms or risk factors identified. Assessment: 07:57 VAN Scoring: Arm Drift: Patients demonstrates NO arm weakness. Patient is VAN Negative. jl7 07:58 Reassessment: Code stroke called. jl7 07:59 Reassessment: Pt to CT via stretcher with MILA Hidalgo. jl7 08:20 General: Appears in no apparent distress. uncomfortable, Behavior is cooperative, jl7 listless. Pain: Denies pain. Neuro: Level of Consciousness is lethargic, Oriented to person, place, time, situation. Cardiovascular: Patient's skin is warm and dry. Respiratory: Airway is patent Respiratory effort is even, unlabored, Respiratory pattern is regular, symmetrical. GI:. Derm: Skin is pink, warm \\T\\ dry. 08:30 The patient has not been NPO before screening. The patient is currently on the jl7 following diet: home The patient is not alert and/or unable to follow commands. lethargic, easily responds to verbal stimuli The patient exhibits slurred or garbled speech. Provider notified of the indication for Speech Therapy consult. The patient is not exhibiting difficulty speaking. The patient does not exhibit difficulty understanding words. The patient is able to swallow own secretions with no drooling or need for suction. Patient tolerated one teaspoon of water. No drooling, immediate coughing, gurgling, or clearing of the throat was noted. The patient tolerated 90mL of water. No drooling, immediate coughing, gurgling, or clearing of the throat was noted. The patient passed the bedside swallow screening. Oral medications may be given as ordered. Contact Physician for further diet orders. Provider notified of bedside swallow screening results: Zaheer Pulliam MD. 09:00 Reassessment: Patient appears in no apparent distress at this time. No changes from jl7 previously documented assessment. Pt's family at bedside. 10:00 Reassessment: Patient appears in no apparent distress at this time. No changes from jl7 previously documented assessment. 11:03 TNKase (Tenecteplase) Screening: Contraindications: Is the patient on Aspirin, Heparin, jl7 or Warfarin: Yes. PT more than 15 seconds and has a history of Heparin within 48 hours and elevated PTT: No. Is the patient on a "statin" medication: Yes. 12:10 Reassessment: Pt remains lethargic, ERD has pt up for discharge and pt reports "I just jl7 want to go home and go to sleep.". 12:16 Reassessment: Pt's family member and ride is being evaluated in the ED, pt will be jl7 discharged once the family member's care is complete and able to take pt home. 12:21 General: Appears in no apparent distress. comfortable, Behavior is cooperative. Pain: mb9 Denies pain. Neuro: Level of Consciousness is obeys commands, lethargic, Oriented to person, place, time, situation. Cardiovascular: Patient's skin is warm and dry. Respiratory: Airway is patent Respiratory effort is even, unlabored, Respiratory pattern is regular, symmetrical. GI: Abdomen is round non-distended. : No signs and/or symptoms were reported regarding the genitourinary system. EENT: Reports "blindness to bilateral eyes". Derm: Skin is pink, warm \\T\\ dry. Musculoskeletal: Range of motion: intact in all extremities. 14:00 Reassessment: No changes from previously documented assessment. Neuro: Level of mb9 Consciousness is obeys commands, lethargic, Oriented to person, place, time, situation. Respiratory: Airway is patent Respiratory effort is even, unlabored, Respiratory pattern is regular, symmetrical. Vital Signs: 07:59 BP 181 / 102; Pulse 86; Resp 13; Temp 97.9; Pulse Ox 95% on R/A; jl7 10:04 BP 173 / 101; Pulse 80; Resp 18; Pulse Ox 97% on R/A; ko1 10:54 BP 154 / 84; Pulse 77; Resp 18; Pulse Ox 94% ; ko1 12:24 BP 154 / 82; Pulse 72; Resp 18; Pulse Ox 99% on R/A; Pain 0/10; mb9 14:33 BP 131 / 73; Pulse 66; Resp 17; Pulse Ox 98% on R/A; Pain 0/10; mb9 NIH Stroke Scale Scores: 07:58 NIHSS Score: 2 jl7 ED Course: 07:54 Patient arrived in ED. ss 07:55 Zaheer Pulliam MD is Attending Physician. sp3 07:59 Michelle Moreno RN is Primary Nurse. jl7 08:05 Triage completed. jl7 08:07 CT Stroke Brain w/o Contrast In Process Unspecified. EDMS 08:29 Arm band placed on left wrist. Patient placed in an exam room, on a stretcher, on jl7 color television console monitor, on pulse oximetry. 08:30 Initial lab(s) drawn, by ED staff, sent to lab. Inserted saline lock: 20 gauge in right jl7 antecubital area, using aseptic technique. Blood collected. Inserted by MILA Singleton via US guided. 08:55 Stroke CXR 1 View In Process Unspecified. EDMS 10:05 Patient has correct armband on for positive identification. Bed in low position. Call ko1 light in reach. Side rails up X2. Client placed on continuous cardiac and pulse oximetry monitoring. NIBP monitoring applied. shelter monitor on. 12:00 Report received from MILA Martinez. mb9 12:16 No provider procedures requiring assistance completed. jl7 14:52 IV discontinued, intact, bleeding controlled, No redness/swelling at site. Pressure ko1 dressing applied. Administered Medications: 08:26 Drug: NARcan (naloxone) 1 mg Route: IVP; Site: right antecubital; jl7 08:51 Follow up: Response: No change in condition; Dr. Pulliam notified jl7 Medication: 08:30 VIS not applicable for this client. jl7 Point of Care Testing: Blood Glucose: 08:29 Blood Glucose: 135 mg/dL; jl7 Ranges: Intake: Outcome: 11:18 Discharge ordered by . jillian 15:29 Discharged to home via wheelchair. mb9 15:29 Condition: stable 15:29 Discharge instructions given to patient, Instructed on discharge instructions, follow up and referral plans. Demonstrated understanding of instructions, follow-up care. 15:29 Patient left the ED. mb9 NIH Stroke Scale - NIH Stroke Score Date: 04/19/2022 Time: 07:58 Total Score = 2 1a. Level of Consciousness (LOC) - 1(Not Alert) 1b. Level of Consciousness (LOC) (Month \\T\\ Age) - 0(Both) 1c. LOC Commands (Open \\T\\ Closes Eyes/Shipping Agent) - 0(Both) 2. Best Gaze (Lateral Gaze Paresis) - 0(Normal) 3. Visual Field Loss - 0(No visual loss) 4. Facial Palsy - 0(Normal) 5a. Left Arm: Motor (10-second hold) - 0(No drift) 5b. Right Arm: Motor (10-second hold) - 0(No drift) 6a. Left Leg: Motor (5-second hold - always test supine) - 0(No drift) 6b. Right Leg: Motor (5-second hold - always test supine) - 0(No drift) 7. Limb Ataxia (finger/nose \\T\\ heel/epperson - test with eyes open) - 0(Absent) 8. Sensory Loss (pinprick arms/legs/face) - 0(Normal) 9. Best Language: Aphasia (description/naming/reading) - 0(No aphasia) 10. Dysarthria (speech clarity - read or repeat words) - 1(Mild to Moderate) 11. Extinction and Inattention (visual/tactile/auditory/spatial/personal) - 0(No abnormality) Initials: jl7 Signatures: Dispatcher [employer] EDMS Areli Milligan RN RN ss Leal, Jahala RN RN radha7 Zaheer Pulliam MD MD sp3 Gwen Troncoso RN RN koJudit Tavera RN RN mb9 Corrections: (The following items were deleted from the chart) 08:18 08:05 PSHx: Tonsillectomy; jl7 jl7 11:15 08:05 Home Meds: gabapentin oral; jl7 jl7 11:15 08:05 Home Meds: Hydralazine Oral; radha7 jl7 11:15 08:05 Home Meds: Protection 5-325 mg Oral tab; jl7 jl7 11:15 08:05 Home Meds: Novolog Sub-Q; jl7 jl7 11:15 08:05 Home Meds: Linzess oral; jl7 jl7 11:15 08:05 Home Meds: Lopressor Oral; jl7 jl7 11:15 08:05 Home Meds: Nifedipine ER Oral; jl7 jl7 11:15 08:05 Home Meds: Eliquis 5 mg oral tab; jl7 jl7 11:15 08:05 Home Meds: aspirin 81 mg Oral TbEC; jl7 jl7 11:15 08:05 Home Meds: Lipitor Oral; jl7 jl7 11:15 08:05 Home Meds: Coreg 25 mg Oral tab; jl7 jl7
--- NOTE | 2022-04-19 11:18 | EDPHYS ---
Physician Documentation [facility] Name: Yamile Brooke Age: 52 yrs Sex: Female : 1970 Arrival Date: 04/19/2022 Time: 07:54 Bed 5 Private MD: ED Physician Zaheer Pulliam HPI: 04/19 08:54 This 52 yrs old Black Female presents to ER via EMS with complaints of S/S of Possible sp3 Stroke. 08:54 52-year-old female with a history of end-stage renal disease on dialysis, CAD, CHF, sp3 hepatitis C, hydrocephalus presents to the ED for chief complaint decreased responsiveness during her hemodialysis for which she was on for approximately 1.5 hours. Just prior to that she received 25 mg of Phenergan IV for nausea symptoms she was having and subsequently had the changes in mental status. EMS was activated and she was brought to the ED for further evaluation and observation. Code stroke was initially called after arrival and CT scan of the head was negative. Remainder of labs are pending patient is still somnolent but has improved. Remainder of history and physical somewhat limited secondary to above described episode. She is able to deny any current headache, neck pain, chest pain, shortness of breath, back pain, weakness, numbness or tingling, or any other symptoms on ROS at this time. Narcan 1 mg IV was also given as part of her initial work-up and Accu-Chek was normal.. 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 jl Historical: - Allergies: 08:05 tramadol; jl 08:05 Iodine; jl7 - Home Meds: 11:08 gabapentin 100 mg oral cap 2 caps BID [Active]; hydralazine 10 mg oral tab [Active]; jl7 [place] 5-325 mg Oral tab 1 tab every 4 hours [Active]; Linzess 145 mcg oral cap once daily [Active]; Lopressor 100 mg oral tab 1 tab 2 times per day [Active]; Nifedipine ER Oral 90 mg twice a day [Active]; Eliquis 5 mg oral tab 2 times per day [Active]; aspirin 81 mg Oral TbEC once daily [Active]; Lipitor 40 mg oral tab once daily [Active]; Coreg 25 mg Oral tab 2 times per day [Active]; cinacalcet oral [Active]; Trulicity 0.75 mg/0.5 mL subcutaneous pnij 0.5 mL once wkly [Active]; ergocalciferol (vitamin D2) 1,250 mcg (50,000 unit) oral cap [Active]; furosemide 40 mg Oral tab 1 tab once daily [Active]; Novolin 70/30 InnoLet Insulin 100 unit/mL (70-30) Sub-Q inpn 35 units twice a day [Active]; prednisolone acetate 0.12 % Opht drps 1 drop 2 times per day [Active]; sevelamer carbonate 800 mg oral tab 1 tab 3 times per day [Active]; valsartan 160 mg oral tab 1 tab 2 times per day [Active]; - PMHx: 08:05 Anemia; CHF; CAD; ESRD; hepatitis C; hydrocephalus; Hyperlipidemia; Hypertension; jl7 ADD/ADHD; Diabetes - NIDDM; Dialysis; Tues, Thurs, Sat; right arm blood clots; right eye blindness; pulmonary hypertension; CVA; - PSHx: 08:05 Left upper arm fistula; section; Cholecystectomy; Coronary artery bypass jl7 graft; Total abdominal hysterectomy; - Immunization history:: Adult Immunizations unknown. - Social history:: Smoking status: Patient denies any tobacco usage or history of. ROS: 08:56 Unable to obtain ROS due to altered mental status. sp3 Exam: 08:56 Radiologist reports: Negative CT scan of the head as per radiology with existing sp3 hydrocephalus that is known from prior. 08:56 Constitutional: This is a well developed, well nourished patient who is awake, alert, and in no acute distress. Head/Face: Normocephalic, atraumatic. Eyes: Pupils equal round and reactive to light, extra-ocular motions intact. Lids and lashes normal. Conjunctiva and sclera are non-icteric and not injected. Cornea within normal limits. Periorbital areas with no swelling, redness, or edema. Chest/axilla: Normal chest wall appearance and motion. Nontender with no deformity. No lesions are appreciated. Cardiovascular: Regular rate and rhythm with a normal S1 and S2. No gallops, murmurs, or rubs. Normal PMI, no JVD. No pulse deficits. Respiratory: Lungs have equal breath sounds bilaterally, clear to auscultation and percussion. No rales, rhonchi or wheezes noted. No increased work of breathing, no retractions or nasal flaring. Skin: Warm, dry with normal turgor. Normal color with no rashes, no lesions, and no evidence of cellulitis. MS/ Extremity: Pulses equal, no cyanosis. Neurovascular intact. Full, normal range of motion. 08:56 Neuro: Arousable patient with no focal deficits. Neuro exam is limited secondary to her mental status. Awake she does answer questions and does not appear to have any gross deficits.. 09:00 ECG was reviewed by the Attending Physician. EKG demonstrates normal sinus rhythm at 85 sp3 bpm with incomplete left bundle branch block, nonspecific diffuse ST/T changes without evidence of acute ischemia and associated axis changes. EKG is unchanged from prior dated 09/09/2020. Vital Signs: 07:59 BP 181 / 102; Pulse 86; Resp 13; Temp 97.9; Pulse Ox 95% on R/A; jl7 10:04 BP 173 / 101; Pulse 80; Resp 18; Pulse Ox 97% on R/A; ko1 10:54 BP 154 / 84; Pulse 77; Resp 18; Pulse Ox 94% ; ko1 12:24 BP 154 / 82; Pulse 72; Resp 18; Pulse Ox 99% on R/A; Pain 0/10; mb9 14:33 BP 131 / 73; Pulse 66; Resp 17; Pulse Ox 98% on R/A; Pain 0/10; mb9 NIH Stroke Scale Scores: 07:58 NIHSS Score: 2 jl7 MDM: 07:58 Patient medically screened. sp3 08:59 Data reviewed: vital signs, nurses notes. ED course: 52-year-old female with altered sp3 mental status after receiving Phenergan during hemodialysis. I believe that her symptoms are secondary to the Phenergan and that any other etiology. CT scan of the head was negative and labs, EKG, chest x-ray are all pending. Accu-Chek is normal. She did receive Narcan 1 mg for any other potential source of the altered mental status which did not change anything. She is slowly waking time and will be observed generally until she is fully aroused. I am not highly suspicious for acute coronary syndrome, vascular pathology including dissection or aneurysm, sepsis, shock, or any other critical findings at this time.. 11:16 ED course: Chest x-ray is unchanged from prior. CT scan is negative as noted. Mental sp3 status is slowly improving. We will lou patient for discharge at this time.. 02 07:59 Order name: Basic Metabolic Panel; Complete Time: 09:42 sp3 04/19 07:59 Order name: CBC with Diff; Complete Time: 08:46 sp3 04/19 07:59 Order name: High Sensitivity Troponin; Complete Time: 09:42 sp3 04/19 07:59 Order name: Protime (+inr); Complete Time: 08:46 sp3 04/19 07:59 Order name: Ptt, Activated; Complete Time: 08:46 sp3 04/19 08:22 Order name: Glucose, Ancillary Testing; Complete Time: 08:38 EDMS 04/19 07:59 Order name: CT Stroke Brain w/o Contrast; Complete Time: 08:38 sp3 04/19 07:59 Order name: Stroke CXR 1 View; Complete Time: 10:47 sp3 04/19 07:59 Order name: EKG; Complete Time: 07:59 sp3 04/19 07:59 Order name: Accucheck; Complete Time: 08:18 sp3 04/19 07:59 Order name: Cardiac monitoring; Complete Time: 08:18 sp3 04/19 07:59 Order name: EKG - Nurse/Tech; Complete Time: 08:18 sp3 04/19 07:59 Order name: IV Saline Lock; Complete Time: 08:18 sp3 04/19 07:59 Order name: Labs collected and sent; Complete Time: 08:18 sp3 04/19 07:59 Order name: NPO; Complete Time: 08:18 sp3 04/19 07:59 Order name: O2 Per Protocol; Complete Time: 08:18 sp3 04/19 07:59 Order name: O2 Sat Monitoring; Complete Time: 08:18 sp3 Administered Medications: 08:26 Drug: NARcan (naloxone) 1 mg Route: IVP; Site: right antecubital; jl7 08:51 Follow up: Response: No change in condition; Dr. Pulliam notified jl7 Point of Care Testing: Blood Glucose: 08:29 Blood Glucose: 135 mg/dL; jl7 Ranges: Critical Glucose Levels:Adult <50 mg/dl or >400 mg/dl <40 mg/dl or >180 mg/dl Disposition Summary: 04/19/22 11:18 Discharge Ordered Location: Home sp3 Condition: Stable sp3 Diagnosis - Accidental Overdose sp3 Followup: sp3 - With: Private Physician - When: Upon discharge from the Emergency Department - Reason: Continuance of care Discharge Instructions: - Discharge Summary Sheet sp3 - Accidental Drug Poisoning, Adult sp3 Forms: - Medication Reconciliation Form sp3 - Thank You Letter sp3 - Antibiotic Education sp3 - Prescription Opioid Use sp3 NIH Stroke Scale - NIH Stroke Score Date: 04/19/2022 Time: 07:58 Total Score = 2 1a. Level of Consciousness (LOC) - 1(Not Alert) 1b. Level of Consciousness (LOC) (Month \T\ Age) - 0(Both) 1c. LOC Commands (Open \T\ Closes Eyes/Music Mixer) - 0(Both) 2. Best Gaze (Lateral Gaze Paresis) - 0(Normal) 3. Visual Field Loss - 0(No visual loss) 4. Facial Palsy - 0(Normal) 5a. Left Arm: Motor (10-second hold) - 0(No drift) 5b. Right Arm: Motor (10-second hold) - 0(No drift) 6a. Left Leg: Motor (5-second hold - always test supine) - 0(No drift) 6b. Right Leg: Motor (5-second hold - always test supine) - 0(No drift) 7. Limb Ataxia (finger/nose \T\ heel/epperson - test with eyes open) - 0(Absent) 8. Sensory Loss (pinprick arms/legs/face) - 0(Normal) 9. Best Language: Aphasia (description/naming/reading) - 0(No aphasia) 10. Dysarthria (speech clarity - read or repeat words) - 1(Mild to Moderate) 11. Extinction and Inattention (visual/tactile/auditory/spatial/personal) - 0(No abnormality) Initials: jl7 Signatures: Dispatcher [employer] Michelle Quick RN RN jl7 Patel, Setul, MD MD sp3 Corrections: (The following items were deleted from the chart) 08:18 08:05 PSHx: Tonsillectomy; jlNat jl7 08:59 08:56 Neuro: 52-year-old female with altered mental status after receiving sp3 Phenergan during hemodialysis. I believe that her symptoms are secondary to the Phenergan and that any other etiology. CT scan of the head was negative and labs, EKG, chest x-ray are all pending. Accu-Chek is normal. She did receive Narcan 1 mg for any other potential source of the altered mental status which did not change anything. She is slowly waking time and will be observed generally until she is fully aroused. I am not highly suspicious for acute coronary syndrome, vascular pathology including dissection or aneurysm, sepsis, shock, or any other critical findings at this time., sp3 11:15 08:05 Home Meds: gabapentin oral; 7 jl7 11:15 08:05 Home Meds: Hydralazine Oral; [facility] jl7 11:15 08:05 Home Meds: [place] 5-325 mg Oral tab; [facility] jl7 11:15 08:05 Home Meds: Novolog Sub-Q; [facility] jl7 11:15 08:05 Home Meds: [facility]zess [facility]; [facility] 11:15 08:05 Home Meds: Lopressor Oral; [facility] jl7 11:15 08:05 Home Meds: Nifedipine ER Oral; [facility] jl7 11:15 08:05 Home Meds: Eliquis 5 mg oral tab; [facility] jl7 11:15 08:05 Home Meds: aspirin 81 mg Oral TbEC; [facility] jl7 11:15 08:05 Home Meds: Lipitor Oral; [facility] jl7 11:15 08:05 Home Meds: Coreg 25 mg Oral tab; [facility] jl7
[2022-04-19 15:34] VITALS: TEMP 97.9
[2022-04-19 15:39] VITALS: BP 131/73; O2SAT 98
== END 2022-04-19 15:29 | disposition home or self-care (01) ==
LOC: ER 07:51
DX: T42.6X1A Poisoning by other antiepileptic and sedative-hypnotic drugs, accidental (unintentional), initial encounter (principal); E11.22 Type 2 diabetes mellitus with diabetic chronic kidney disease; I13.2 Hypertensive heart and chronic kidney disease with heart failure and with stage 5 chronic kidney disease, or end stage renal disease; I50.9 Heart failure, unspecified; N18.6 End stage renal disease; Z99.2 Dependence on renal dialysis; Z95.1 Presence of aortocoronary bypass graft; Z79.01 Long term (current) use of anticoagulants; Z79.4 Long term (current) use of insulin; Z86.73 Personal history of transient ischemic attack (TIA), and cerebral infarction without residual deficits
CPT/HCPCS: 85025; 80048; 36415; 85610; 82947; 85730; 84484; 70450; 71045; J2310; 93005

== ENCOUNTER 2024-12-05 12:45 | Inpatient (IN) | payer OTHER ==
[2024-12-05 13:38] LABS: Absolute Lymphocytes (CBC) 0.6 K/uL (0.7-4.9); Hematocrit 21.8 % (36.0-45.0); Hemoglobin 6.5 g/dL (12.0-15.0); MCH 25.9 pg (27.0-35.0); MCHC 29.8 g/dL (32.0-36.0); MCV 87.1 fL (80-100); MPV 9.6 fL (7.6-11.3); Nucleated RBC Absolute Count 0.0 (0-0); Nucleated Red Blood Cells % 0.1 % (0-0); RBC Red Blood Cell Count 2.50 M/uL (3.86-4.86); White Blood Count 5.30 thou/uL (4.3-10.9)
[2024-12-05 13:46] LABS: PT Prothrombin Time 16.7 SECONDS (10-13.0); Protime INR 1.5
--- NOTE | 2024-12-05 13:52 | RAD REPORT ---
EXAMINATION: ONE VIEW CHEST XR CLINICAL INDICATION: CHEST PAIN TECHNIQUE: Frontal chest projection is submitted. Examination is limited by patient positioning and t echnique. COMPARISON: 04/19/2022 FINDINGS: Mild bilateral pulmonary opacities with bilateral pleural effusions likely representing pulmonary nila ma. The cardiac silhoutte is severely enlarged in size. No displaced fractures identified. Sternotomy wires. IMPRESSION: Mild/moderate CHF versus volume overload pattern.
[2024-12-05 14:26] LABS: Albumin 3.4 g/dL (3.4-5.0); Albumin/Globulin Ratio 0.6 (1.1-1.8); Alkaline Phosphatase 258 U/L (45-117); Anion Gap 20.3 mEq/L (5.0-15.0); BUN Blood Urea Nitrogen 97 mg/dL (7-18); Bilirubin Indirect, Calculated 0.4 mg/dL (0.2-0.8); Globulin 6.1 g/dL (2.3-3.5); Glucose Level 204 mg/dL (74-106); Magnesium 2.3 mg/dL (1.6-2.4); NT PRO-BNP 60338 pg/mL (<125); Troponin High Sensitivity 23.6 pg/mL (<58.9)
[2024-12-05 14:28] LABS: Differential Total Cells Count 100; Segmented Neutrophils 79 % (40-80)
[2024-12-05 14:29] LABS: Blood Morphology Comment NOT SEEN (NOT SEEN)
[2024-12-05 14:31] LABS: ALT/SGPT < 14 U/L (13-56); AST/SGOT < 10 U/L (15-37)
[2024-12-05 14:32] LABS: Potassium 8.3 mEq/L (3.5-5.1)
--- NOTE | 2024-12-05 14:54 | EDPHYS ---
Physician Documentation [facility] Name: Yamile Brooke Age: 54 yrs Sex: Female : 1970 Arrival Date: 12/05/2024 Time: 12:45 Bed 13 Private MD: ED Physician Felix Hartman HPI: 12/05 18:17 This 54 yrs old Black Female presents to ER via EMS with complaints of Nausea/Vomiting, sb4 General Weakness. 18:17 Patient called EMS for feeling generally weak, nauseated, and feeling very hot. Per sb4 family, patient has been having a lot of bilateral lower extremity pain so has been taking Tylenol with codeine on an empty stomach. This is caused her to feel nauseated so she has not been going to dialysis. She was last dialyzed 5 days ago, missed her dialysis session today and 2 days prior. Denies any chest pain or shortness of breath. PCP and solar installer technician are Dr. Nina. COORDINATOR OF LIBRARY SERVICES: 13:00 LMP N/A - Post-menopause, Not db Historical: - Allergies: 13:06 Iodine; db 13:06 tramadol; db - PMHx: 13:06 ADD/ADHD; Hyperlipidemia; Dialysis; Tues; ESRD; Diabetes - NIDDM; CHF; CAD; db Hydrocephalus; PULMONARY HYPERTENSION; right eye blindness; right arm blood clots; Hypertension; Hepatitis C; CVA; Anemia; - PSHx: 13:06 section; Cholecystectomy; Left upper arm fistula; Coronary artery bypass db graft; Total abdominal hysterectomy; - Immunization history:: Adult Immunizations unknown. - Infectious Disease History:: Denies. - Social history:: Smoking status: unknown. ROS: 18:17 Constitutional: Negative for fever, chills, and weight loss, sb4 18:17 Abdomen/GI: Positive for nausea and vomiting, 18:17 MS/extremity: Positive for per HPI, 18:17 Neuro: Positive for weakness, 18:17 All other systems are negative, Exam: 18:17 Head/Face: Normocephalic, atraumatic. Eyes: Extra-ocular motions intact. Periorbital sb4 areas with no swelling, redness, or edema. Cardiovascular: Regular rate and rhythm with a normal S1 and S2. Respiratory: No increased work of breathing, no retractions or nasal flaring. Abdomen/GI: Soft, non-tender, no distension. 18:17 Constitutional: The patient appears alert, awake, obviously ill, uncomfortable, 18:17 ENT: Mouth: Oral mucosa: dry, 18:17 Cardiovascular: Edema: 1+ edema to level of left midcalf and right midcalf, 18:17 Skin: Appearance: Moisture: dry, Vital Signs: 12:57 BP 170 / 89; Pulse 61; Resp 22; Pulse Ox 100% ; db 13:00 BP 170 / 94; Pulse 58; Resp 18; Pulse Ox 100% on 2 lpm NC; db 13:25 Temp 98.6(A); db 14:44 BP 178 / 87; Pulse 59; Resp 20; Pulse Ox 100% on R/A; db 15:00 BP 176 / 91; Pulse 58; Resp 21; Pulse Ox 100% ; db 15:30 BP 180 / 96; Pulse 60; Resp 20; Pulse Ox 100% on R/A; db MDM: 12:46 Medical Screening Exam initiated sb4 18:19 Differential diagnosis: Hyperkalemia, uremia, fluid overload, gastroenteritis. Data sb4 reviewed: vital signs, nurses notes, lab test result(s), EKG, radiologic studies, I have discussed the patient's presentation/case with the attending Emergency Department Physician; and as a result, I will admit patient. Consideration of Admission/Observation Escalation of care including admission/observation considered. Management of patient was discussed with the following: Needle Felt Making Machine Operator: Dr. Nina -will put in orders for dialysis right now. Recommends hyperkalemia cocktail in the meantime and to type and screen for unit of blood to be transfused with dialysis. Historians other than the Patient: Daughter/Son: sons. Care significantly affected by the following chronic conditions: Diabetes, Hypertension, Congestive Heart Failure, Chronic Obstructive Pulmonary Disease, Obesity, Chronic Kidney Disease. Counseling: I had a detailed discussion with the patient and/or guardian regarding the historical points, exam findings, and any diagnostic results supporting the discharge/admit diagnosis, the presence of at least one elevated blood pressure reading (>120/80) during this emergency department visit, lab results, radiology results, the need for further work-up and treatment in the hospital. 12/05 12:47 Order name: Basic Metabolic Panel; Complete Time: 14:33 sb4 12/05 12:47 Order name: CBC with Diff; Complete Time: 14:33 sb4 12/05 12:47 Order name: LFT's; Complete Time: 14:33 sb4 12/05 12:47 Order name: Magnesium; Complete Time: 14:33 sb4 12/05 12:47 Order name: NT PRO-BNP; Complete Time: 14:33 sb4 12/05 12:47 Order name: PT-INR; Complete Time: 13:47 sb4 12/05 12:47 Order name: Troponin HS; Complete Time: 14:33 sb4 12/05 13:47 Order name: Manual Differential; Complete Time: 14:33 EDMS 12/05 14:52 Order name: Type And Screen sb4 12/05 15:08 Order name: Magnesium EDMS 12/05 15:08 Order name: Phosphorus EDMS 12/05 15:08 Order name: Basic Metabolic Panel EDMS 12/05 15:08 Order name: Basic Metabolic Panel EDMS 12/05 15:08 Order name: CBC with Automated Diff EDMS 12/05 15:08 Order name: CBC with Automated Diff EDMS 12/05 15:08 Order name: Lipid Profile EDMS 12/05 15:08 Order name: Lipid Profile EDMS 12/05 12:47 Order name: XRAY Chest (1 view); Complete Time: 13:53 sb4 12/05 12:47 Order name: Cardiac monitoring; Complete Time: 13:15 sb4 12/05 12:47 Order name: EKG - Nurse/Tech; Complete Time: 13:15 sb4 12/05 12:47 Order name: IV Saline Lock; Complete Time: 13:35 sb4 12/05 12:47 Order name: Labs collected and sent; Complete Time: 13:35 sb4 12/05 12:47 Order name: O2 Per Protocol; Complete Time: 13:35 sb4 12/05 12:47 Order name: O2 Sat Monitoring; Complete Time: 13:35 sb4 EC:15 Rate is 58 beats/min. Rhythm is regular, Sinus Rhythm with 1st degree heart block. CT sb4 interval is prolonged at 244 msec. QRS interval is normal at 140 msec. QT interval is prolonged at 524 msec. Clinical impression: 1st degree heart block. Interpreted by me. Reviewed by me. Administered Medications: 15:06 Drug: Insulin Regular Human IVP 10 units IVP once {Co-Signature: me1 (Eddleman, db Gema RN).} Route: IVP; Site: right wrist; 15:59 Follow up: Response: No adverse reaction db 15:07 CANCELLED (Duplicate Order): d10 in ml IVP once db 15:07 Drug: D50W IVP 50 ml IVP once; (1 amp) Route: IVP; Site: right wrist; db 15:59 Follow up: Response: No adverse reaction db 15:10 Drug: Calcium Gluconate IVPB 2 grams IVPB once over 60 mins; (mix in NS 100 mL) Route: db IVPB; Infused Over: 60 mins; Site: right antecubital; 16:00 Follow up: Response: No adverse reaction; IV Status: Infusion continued upon admission db 15:10 Drug: Kayexalate PO 30 grams PO once Route: PO; db 15:59 Follow up: Response: No adverse reaction db 15:15 Drug: Albuterol Inhalation 2.5 mg Inhalation once Route: Inhalation; Disposition: 16:48 Co-signature as Attending Physician, Felix Hartman MD I reviewed the patient's care rn provided by the Advanced Practice Provider and agree with the diagnosis and treatment plan. Disposition Summary: 12/05/24 14:53 Hospitalization Ordered Notes: Hospitalization Status: Inpatient Admission sb4 Provider: Prince haylie Germain Condition: Serious sb4 Problem: new sb4 Symptoms: are unchanged sb4 Bed/Room Type: Standard sb4 Location: Intensive Care Unit(12/05/24 15:23) [facility] Room Assignment: 2-(12/05/24 15:23) [facility] Diagnosis - Hyperkalemia sb4 - End stage renal disease sb4 - Anemia in chronic kidney disease sb4 Forms: - Medication Reconciliation Form sb4 - SBAR form sb4 - Leadership Thank You Letter sb4 Critical care time excluding procedures: 18:07 Critical care time: Bedside Care: 15 minutes, Consultation: 20 minutes. Total time: 35 sb4 minutes Signatures: Dispatcher [employer] Felix Muniz MD MD rn Benton, Danielle, RN RN db Brown, Sophia PAFernandoC PAFernandoC sb4 Mary Leslie [facility] Gema Sheffield RN me1 Corrections: (The following items were deleted from the chart) 12:47 12:47 BASIC METABOLIC PANEL+C.LAB.BRZ ordered. EDMS EDMS 12:47 12:47 CBC+H.LAB.BRZ ordered. EDMS EDMS 12:47 12:47 HEPATIC FUNCTION+C.LAB.BRZ ordered. EDMS EDMS 12:47 12:47 MAGNESIUM+C.LAB.BRZ ordered. EDMS EDMS 12:47 12:47 PROBNP+C.LAB.BRZ ordered. EDMS EDMS 12:47 12:47 PROTIME (+INR)+COAG.LAB.BRZ ordered. EDMS EDMS 12:47 12:47 Troponin High Sensitivity+C.LAB.BRZ ordered. EDMS EDMS 12:47 12:47 Chest Single View+RAD.RAD.BRZ ordered. EDMS EDMS 15:07 14:36 D10 in Water IVP 250 ml IVP once ordered. sb4 db 15:23 14:53 Telemetry/MedSurg (Inpatient) sb4 bc6 15:23 14:53 sb4 bc6
--- NOTE | 2024-12-05 14:54 | ER ---
Nurse's Notes [facility] Name: Yamile Brooke Age: 54 yrs Sex: Female : 1970 Arrival Date: 12/05/2024 Time: 12:45 Bed 13 Private MD: Diagnosis: Hyperkalemia;End stage renal disease;Anemia in chronic kidney disease Presentation: 12/05 12:57 Chief complaint: EMS states: COMING FROM HOME WITH GENERAL WEAKNESS, N/V. MISSED db MONDAY DIALYSIS. IS BLIND. Coronavirus screen: Client denies travel out of the [place] in the last 14 days. At this time, the client does not indicate any symptoms associated with coronavirus-19. Ebola Screen: Patient negative for fever greater than or equal to 101.5 degrees Fahrenheit, and additional compatible Ebola Virus Disease symptoms Patient denies exposure to infectious person. Patient denies travel to an Ebola-affected area in the 21 days before illness onset. No symptoms or risks identified at this time. Initial Sepsis Screen: Does the patient meet any 2 criteria? No. Patient's initial sepsis screen is negative. Does the patient have a suspected source of infection? No. Patient's initial sepsis screen is negative. Risk Assessment: Do you want to hurt yourself or someone else? Patient reports no desire to harm self or others. Onset of symptoms was December 04, 2024. 12:57 Method Of Arrival: EMS: [facility] db 12:57 Acuity: ARIE 3 db 14:33 Acuity: ARIE 2 iw Triage Assessment: 13:00 General: Appears in no apparent distress. uncomfortable, Behavior is calm, cooperative. db Pain: Denies pain. Neuro: Level of Consciousness is awake, alert, obeys commands, Oriented to person, place, time, situation. Respiratory: Airway is patent Respiratory effort is even, unlabored, Respiratory pattern is regular, symmetrical. GI: Reports nausea, vomiting. 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 - Infectious Disease History:: Denies. - Social history:: Smoking status: unknown. Screenin:25 [facility] ED Fall Risk Assessment (Adult) History of falling in the last 3 months, db including since admission No falls in past 3 months (0 pts) Confusion or Disorientation No (0 pts) Intoxicated or Sedated No (0 pts) Impaired Gait Yes (1 pt) Mobility Assist Device Used Yes (1 pt) Altered Elimination No (0 pt) Score/Fall Risk Level 0 - 2 = Low Risk Oriented to surroundings, Maintained a safe environment. Abuse screen: Denies threats or abuse. Denies injuries from another. Nutritional screening: No deficits noted. Tuberculosis screening: No symptoms or risk factors identified. Assessment: 13:07 Reassessment: SEE TRIAGE FOR INITIAL ASSESSMENT. db 14:00 Reassessment: Patient appears in no apparent distress at this time. Patient and/or db family updated on plan of care and expected duration. Pain level reassessed. Patient is alert, oriented x 3, equal unlabored respirations, skin warm/dry/pink. DIALYSIS ACCESS PORT LEFT UPPER ARM. General: Appears in no apparent distress. comfortable, Behavior is calm, cooperative. Neuro: Level of Consciousness is awake, alert, obeys commands, Oriented to person, place, time, situation. Cardiovascular: Capillary refill Dialysis shunt: in the left arm. GI: Reports nausea. GI: 15:10 Reassessment: Patient appears in no apparent distress at this time. Patient and/or db family updated on plan of care and expected duration. Pain level reassessed. Reassessment: Patient appears in no apparent distress at this time. Patient is alert, oriented x 3, equal unlabored respirations, skin warm/dry/pink. General: Appears in no apparent distress. comfortable, Behavior is calm, cooperative. Neuro: Level of Consciousness is awake, alert, obeys commands, Oriented to person, place, time, situation. Respiratory: Airway is patent Respiratory effort is even, unlabored, Respiratory pattern is regular, symmetrical. 15:44 Reassessment: Patient appears in no apparent distress at this time. REPORT GIVEN TO mary GARG RN IN ICU. 15:54 Reassessment: PATIENT TRANSPORTED TO ICU VIA STRETCHER WITH NURSE AND TECH ON MONITOR db AND O2. Vital Signs: 12:57 BP 170 / 89; Pulse 61; Resp 22; Pulse Ox 100% ; db 13:00 BP 170 / 94; Pulse 58; Resp 18; Pulse Ox 100% on 2 lpm NC; db 13:25 Temp 98.6(A); db 14:44 BP 178 / 87; Pulse 59; Resp 20; Pulse Ox 100% on R/A; db 15:00 BP 176 / 91; Pulse 58; Resp 21; Pulse Ox 100% ; db 15:30 BP 180 / 96; Pulse 60; Resp 20; Pulse Ox 100% on R/A; db ED Course: 12:46 Patient arrived in ED. sb4 12:46 Madyson Velazquez PA-C is PHCP. sb4 12:46 Felix Hartman MD is Attending Physician. sb4 13:00 Arm band placed on Patient placed in an exam room. db 13:03 Roula Mae, RN is Primary Nurse. db 13:06 Triage completed. db 13:15 EKG done, by cook chill technician. reviewed by Madyson Velazquez PA-C. ts3 13:20 XRAY Chest (1 view) In Process Unspecified. EDMS 13:25 Patient has correct armband on for positive identification. Bed in low position. Call db light in reach. Side rails up X 1. Client placed on continuous cardiac and pulse oximetry monitoring. NIBP monitoring applied. environmental monitoring technician on. Pulse ox on. NIBP on. Pillow given. 13:25 Initial lab(s) drawn, by me, sent to lab. Inserted saline lock: 22 gauge in right db antecubital area, using aseptic technique. Blood collected. Flushed with 10 mL NS. 14:53 Prince Germain MD is Hospitalizing Provider. sb4 15:54 Provided Education on: DIALYSIS AND ADMISSION. db 15:54 No provider procedures requiring assistance completed. Patient admitted, IV remains in db place. Administered Medications: 15:06 Drug: Insulin Regular Human IVP 10 units IVP once {Co-Signature: me1 (mary Sheffield RN).} Route: IVP; Site: right wrist; 15:59 Follow up: Response: No adverse reaction db 15:07 CANCELLED (Duplicate Order): d10 in [id number] ml IVP once db 15:07 Drug: D50W IVP 50 ml IVP once; (1 amp) Route: IVP; Site: right wrist; db 15:59 Follow up: Response: No adverse reaction db 15:10 Drug: Calcium Gluconate IVPB 2 grams IVPB once over 60 mins; (mix in NS 100 mL) Route: db IVPB; Infused Over: 60 mins; Site: right antecubital; 16:00 Follow up: Response: No adverse reaction; IV Status: Infusion continued upon admission db 15:10 Drug: Kayexalate PO 30 grams PO once Route: PO; db 15:59 Follow up: Response: No adverse reaction db 15:15 Drug: Albuterol Inhalation 2.5 mg Inhalation once Route: Inhalation; Medication: 13:25 VIS not applicable for this client. db Outcome: 14:53 Decision to Hospitalize by Provider. sb4 15:54 Admitted to ICU accompanied by nurse, accompanied by tech, family with patient, via stretcher, room 2, with oxygen, on monitor, with chart, Report called to BRITANY 15:54 Condition: stable 15:54 Instructed on the need for admit, 16:01 Patient left the ED. rg5 Signatures: Dispatcher [employer] Ania Gilbert, RN MILA iw Roula Mae RN RN Madyson Geronimo PA-C PA-C sb4 Butch Brush RN RN rg5 Macy Pryor ts3 Gema Sheffield RN me1
[2024-12-05] MEDS ORDERED: ALBUTEROL 2.5 MG/3 ML NEB SOL ONE (15:01)
[2024-12-05] MEDS ORDERED: INSULIN REGULAR (HUMAN) 100 UNIT/ML ONE (15:01)
[2024-12-05] MEDS ORDERED: SOD POLYSTYREN SUL 15 GM/60 ML UCUP ONE (15:02)
[2024-12-05] MEDS ORDERED: CALCIUM GLUCONATE 1 GM IVPB 2 GM/100 ML BAG IV ONE (15:03)
[2024-12-05] MEDS ORDERED: D50W 25 GM/50 ML SYRINGE IV ONE (15:03)
--- NOTE | 2024-12-05 15:38 | P.HP ---
Certification for Inpatient Patient admitted to: Observation With expected LOS: <2 Midnights Practitioner: I am a practitioner with admitting privileges, knowledge of patient current condition, hospital course, and medical plan of care. Services: Services provided to patient in accordance with Admission requirements found in Title 42 Section 412.3 of the Code of Federal Regulations Patient History Date of Service: 12/05/24 Reason for admission: Missed hemodialysis, hyperkalemia, anemia History of Present Illness: Patient is a 54-year-old -[place]er female with a past medical history of ESRD, chronic systolic CHF, coronary disease and type 2 diabetes mellitus complicated by diabetic neuropathy, and gastroparesis. She presented to the ER complaining of generalized malaise and bilateral lower extremity pain and edema. Patient has been having pain for the past 5 days. She even skipped her hemodialysis session to make it to a clinic appointment in order to address this issue. She is on hemodialysis Monday and was not dialyzed on Monday. She follows up with Dr. Nina. She received an order for venous Doppler studies. In the meantime, she has developed fluid buildup and worsening lower extremity pain. She decided to present to the ER today due to worsening symptoms of shortness of breath, malaise and lower extremity edema. Patient arrived in the ER in severe pain and distress. She has evidence of bilateral lower extremity edema. Blood work is significant for potassium of 5.3 and a hemoglobin of 6.5. She is being emergently dialyzed in the ER. A unit of blood was also ordered. Allergies tramadol Allergy (Mild, Verified 10/02/19 23:02) Anaphylaxis Home Medications: Gabapentin 100 mg PO DAILY 06/09/20 Gabapentin 200 mg PO BEDTIME 06/09/20 Nifedipine [Procardia Xl] 90 mg PO BID 09/08/20 - Past Medical/Surgical History Diabetic: Yes -: HTN -: DM-2 -: Dyslipidemia -: anemia -: esrd -: Hep C -: CHF -: hysterectomy -: x2 -: king martínez (2016) - Family History Mother -: Hypertension Father -: Heart disease, Hypertension, Diabetes - Social History Alcohol use: No CD- Drugs: No Caffeine use: No Physical Examination - Physical Exam General: Severe distress HEENT: Atraumatic, Normocephalic Respiratory: Diminished, Other (Dyspneic) Cardiovascular: Regular rate/rhythm, Normal S1 S2, Other (Left AV fistula), Edema Neurological: Normal speech - Studies Laboratory Data (last 24 hrs) 12/05/24 12/05/24 12/05/24 13:29 13:29 13:29 WBC 5.30 Hgb 6.5 L Hct 21.8 L Plt Count 60 L PT 16.7 H INR 1.50 Sodium 133 L Potassium 8.3 H* BUN 97 H Creatinine 14.20 H Glucose 204 H Magnesium 2.3 Total Bilirubin 0.7 AST < 10 L ALT < 14 Alkaline Phosphatase 258 H Assessment and Plan - Plan Assessment Patient is a 54-year-old -[place] female with known history of ESRD but missed her recent hemodialysis session due to acute pain issues. She arrived in the ER volume overloaded manifested by bilateral lower extremity edema, and in severe pain. She has a potassium of 8.3. Blood work showing hemoglobin of 6.5. Volume overload ESRDmissed last hemodialysis session Severe hyperkalemia Acute on chronic chronic systolic CHF Acute on chronic anemia Thrombocytopenia Hyponatremia Acute pain Plan: I agree with emergent hemodialysis. Dr. Stanislav casey has placed hemodialysis orders. Patient will be dialyzed in the ER room Repeat potassium level prior to transfer to telemetry Repeat CBC in the morning Venous Doppler of both lower extremity to rule out DVT Pain control No chemoprophylaxis due to thrombocytopenia and anemia - Advance Directives Does patient have a Living Will: No Does patient have a Durable POA for Healthcare: No
[2024-12-05] MEDS ORDERED: HYDROMORPHONE HCL 1 MG/ML INJ IV PRN (15:39)
[2024-12-05] MEDS: LIDOCAINE 5% OINT 30 GM TUBE TOP ONE (16:31)
[2024-12-05] MEDS ORDERED: HEPARIN 5000 UNIT/ML 1 ML VIAL SQ SCH (17:00)
[2024-12-05 17:06] LABS: Base Excess, VBG -5.6 mmol/L (-2.0-3.0); Blood Gas Inspired Oxygen, VBG 100.0 %; HCO3, Venous Blood Gas 19.8 mmol/L (21.0-29.0); O2 Saturation, VBG 99.9 % (40.0-70.0); PCO2, Venous Blood Gas 35.0 mmHg (41-51); PH, Venous Blood Gas 7.36 (7.32-7.42); PO2, Venous Blood Gas 281.0 mmHg (25-40)
--- NOTE | 2024-12-05 17:14 | RAD REPORT ---
EXAMINATION: US BILATERAL LOWER EXTREMITY VENOUS DOPPLER CLINICAL INDICATION: Bilateral lower extremity pain TECHNIQUE: Complete bilateral duplex sonography of the BILATERAL lower extremity veins was performed. The examination included compression for vein patency, color Doppler imaging and flow augmentation in response to distal compression of the distal external iliac, common femoral, femoral, popliteal, t ibial, and great and small saphenous veins. COMPARISON: No prior exam. FINDINGS: Duplex sonography testing of the veins of the BILATERAL lower extremity was performed. Color flow vidal ging shows all veins to be compressible with [id number] color filling. Pulsatile and phasic flow is present within all lower extremity deep and superficial veins examined. IMPRESSION: There is no deep vein or superficial vein thrombosis.
--- NOTE | 2024-12-05 17:27 | P.CNS ---
Date of Consult: 12/05/24 Reason for Consult: ESRD Requesting Physician: Prince Livan Germain Chief Complaint: Missed hemodialysis, hyperkalemia, anemia History of Present Illness: Patient is a 54-year-old -French female with a past medical history of ESRD, chronic systolic CHF, coronary disease and type 2 diabetes mellitus complicated by diabetic neuropathy, and gastroparesis. She presented to the ER complaining of generalized malaise and bilateral lower extremity pain and edema. Patient has been having pain for the past 5 days. She even skipped her hemodialysis session to make it to a clinic appointment in order to address this issue. She is on hemodialysis Monday and was not dialyzed on Monday. She follows up with Dr. Nina. She received an order for venous Doppler studies. In the meantime, she has developed fluid buildup and worsening lower extremity pain. She decided to present to the ER today due to worsening symptoms of shortness of breath, malaise and lower extremity edema. Patient arrived in the ER in severe pain and distress. She has evidence of bilateral lower extremity edema. Blood work is significant for potassium of 5.3 and a hemoglobin of 6.5. She is being emergently dialyzed in the ER. A unit of blood was also ordered. Allergies tramadol Allergy (Mild, Verified 10/02/19 23:02) Anaphylaxis Home medications list reviewed: Yes Home Medications: Gabapentin 100 mg PO DAILY 06/09/20 Gabapentin 200 mg PO BEDTIME 06/09/20 Nifedipine [Procardia Xl] 90 mg PO BID 09/08/20 - Past Medical/Surgical History Diabetic: Yes -: HTN -: DM II -: HLD -: Anemia -: ESRD (Dr. Nina/ O[facility]) -: HCV -: CHF -: hysterectomy -: x2 -: king martínez (2016) - Family History Mother Medical History: Hypertension Father Medical History: Heart disease, Hypertension, Diabetes - Social History Smoking Status: Never smoker Alcohol use: No CD- Drugs: No Caffeine use: No Place of Residence: Home Review of Systems 10-point ROS is otherwise unremarkable General: Weakness, Malaise Respiratory: SOB with Excertion Physical Examination Temp Pulse Resp BP Pulse Ox 98.6 F 60 20 180/96 H 12/05/24 13:25 12/05/24 15:30 12/05/24 15:30 12/05/24 15:30 General: Oriented x3, Cooperative, Mild distress HEENT: Atraumatic Neck: Supple Respiratory: Diminished Cardiovascular: No edema, Regular rate/rhythm Gastrointestinal: Soft and benign, Non-distended Musculoskeletal: No clubbing, No contractures Integumentary: Skin lesion Neurological: Normal speech (Poor hearing) Laboratory Data (last 24 hrs) 12/05/24 12/05/24 12/05/24 13:29 13:29 13:29 WBC 5.30 Hgb 6.5 L Hct 21.8 L Plt Count 60 L PT 16.7 H INR 1.50 Sodium 133 L Potassium 8.3 H* BUN 97 H Creatinine 14.20 H Glucose 204 H Magnesium 2.3 Total Bilirubin 0.7 AST < 10 L ALT < 14 Alkaline Phosphatase 258 H Imagings Data: EXAMINATION: ONE VIEW CHEST XR CLINICAL INDICATION: CHEST PAIN TECHNIQUE: Frontal chest projection is submitted. Examination is limited by patient positioning and technique. COMPARISON: 04/19/2022 FINDINGS: Mild bilateral pulmonary opacities with bilateral pleural effusions likely representing pulmonary edema. The cardiac silhoutte is severely enlarged in size. No displaced fractures identified. Sternotomy wires. IMPRESSION: Mild/moderate CHF versus volume overload pattern. Conclusions/Impression: ESRD on HD Hyponatremia -Acute HD ordered -Seen and examined in the ICU while receiving dialysis Hyperkalemia -Potassium cocktail -Stat HD ordered HTN with CKD/ CHF -Restart Nifedipine XL 90mg BID Diastolic CHF, A/C -UF with HD -Low sodium diet DM II with Hyperglycemia, CKD, Polyneuropathy and Peripheral Angiopathy -RISS prn Anemia in CKD Thrombocytopenia -Retacrit qHD -PRBC as ordered -Monitor CBC CKD MBD Secondary HyperParathyroidism -Start Renvela -Start Ergo and Calcitriol Case reviewed with the ER provider Hospitalist and ER notes reviewed 40 minutes patient care
[2024-12-05 18:05] LABS: Hepatitis B Surface Ab - Quant 151.23 mIU/mL (<8.0); Hepatitis B surface AG Interp. Nonreactive (Nonreactive)
[2024-12-05 18:06] LABS: HBsAG Nonreactive Report Report
[2024-12-05] MEDS: NA CHLORIDE 0.9% 500 ML ONE (19:32)
[2024-12-05] MEDS: HYDRALAZINE HCL 20 MG/ML VIAL IV PRN (20:08)
[2024-12-05] MEDS: DIPHENHYDRAMINE 50 MG/ML VIAL IV ONE (20:43)
[2024-12-05] MEDS: NIFEDIPINE XL 90 MG TABLET PO ONE (22:45)
[2024-12-06] MEDS: EPOETIN ALFA-EPBX 10,000 UNIT/ML VIAL ONE (00:01)
[2024-12-06] MEDS: EPOETIN ALFA 10,000 UNIT/ML VIAL SQ ONE (00:07)
[2024-12-06] MEDS: D50W 25 GM/50 ML SYRINGE IV ONE (03:52)
[2024-12-06 06:25] LABS: Absolute Lymphocytes (CBC) 1.1 K/uL (0.7-4.9); Hematocrit 40.4 % (36.0-45.0); Hemoglobin 13.0 g/dL (12.0-15.0); MCH 28.4 pg (27.0-35.0); MCHC 32.3 g/dL (32.0-36.0); MCV 88.0 fL (80-100); MPV 9.9 fL (7.6-11.3); Nucleated RBC Absolute Count 0.0 (0-0); Nucleated Red Blood Cells % 0.0 % (0-0); RBC Red Blood Cell Count 4.59 M/uL (3.86-4.86); White Blood Count 6.30 thou/uL (4.3-10.9)
[2024-12-06 06:48] LABS: Anion Gap 18.3 mEq/L (5.0-15.0); BUN Blood Urea Nitrogen 60.0 mg/dL (7-18); Glucose Level 94.0 mg/dL (74-106); HDL Cholesterol 38.0 mg/dL (40-60); LDL Cholesterol, Calculated 38.0 mg/dL (<130); LDL Cholesterol,Calc NonReport 38.0; Magnesium 2.0 mg/dL (1.6-2.4); Potassium 5.3 mEq/L (3.5-5.1)
[2024-12-06] MEDS ORDERED: NA CHLORIDE 0.9% 1,000 ML IV PRN (07:07)
[2024-12-06] MEDS ORDERED: MANNITOL 25% 12.5 GM/50 ML VIAL IV PRN (07:07)
[2024-12-06] MEDS ORDERED: EPOETIN ALFA 10,000 UNIT/ML VIAL IV SCH (07:15)
[2024-12-06] MEDS ORDERED: ALBUMIN HUMAN 25% 50 ML IV SCH (08:00)
[2024-12-06] MEDS: MULTIVITAMINS,THERAPEUT 1 TAB PO SCH (09:00)
[2024-12-06] MEDS: CINACALCET HCL 30 MG TAB PO SCH (09:00)
[2024-12-06] MEDS: DOCUSATE NA 100 MG CAP PO SCH (09:00)
[2024-12-06] MEDS: NIFEDIPINE XL 90 MG TABLET PO SCH (09:00)
[2024-12-06] MEDS: NEPRO SHAKE 237 ML CAN PO SCH (09:00)
[2024-12-06] MEDS: SEVELAMER CARBONATE 800 MG TABLET PO SCH (09:19)
[2024-12-06] MEDS: DRISDOL (VITAMIN D=ERGOCALCIFEROL) 50000 UNIT CAP PO SCH (09:19)
[2024-12-06] MEDS: CALCITROL 0.25 MCG CAP PO SCH (09:20)
--- NOTE | 2024-12-06 09:40 | RAD REPORT ---
EXAMINATION: XR LEFT FOOT CLINICAL INDICATION: left foot/ankle pain TECHNIQUE: Multiple projections of the left foot were obtained. COMPARISON: No prior exam. FINDINGS: Soft tissue swelling is seen affecting the foot. Vascular atherosclerosis. No acute fractur e or dislocation. Small calcaneal spurs. Questionable erosive changes base of the distal phalanx of the great toe. If there is clinical concern for osteomyelitis, recommend MRI follow-up.
--- NOTE | 2024-12-06 10:06 | P.PN ---
Nephrology (S) Pt known to me as a chronic ESRD pt at the [facility] unit, pt seen in the ICU, no resp distress, feels a bit better, no CP reported, does acknowledge left foot/medial ankle site pain, reports pain meds have not helped (O) Vitals reviewed in the EMR NAD, non tachypnec, atraumatic, legally blind, hard of hearing, not on O2, b/l air entry without wheezing, non tachy, regular, abd soft, ND, NT, no sig LE edema, left medial ankle site with mild swelling, some TTP. Pt awake, able to converse, non focal ESRD 2nd to chronic conditions -HD orders have been placed, see HD orders for details, pre HD metab profile acceptable HTN with heart and kidney disease without recent HF -Nifedipine dose adjusted, BP can be labile, weights can vary, maintain euvolemia Chronic Diastolic CHF -UF as tolerated Lt foot/ankle pain -Will defer to IM team to consider ordering additional imaging including MRI foot if possible to eval further for soft tissue, osteo
[2024-12-06] MEDS ORDERED: MECLIZINE HCL 12.5 MG TAB PO PRN (10:23)
[2024-12-06] MEDS: GABAPENTIN 100 MG CAP PO SCH ×2 (10:34→21:06)
--- NOTE | 2024-12-06 10:41 | P.PN ---
Subjective Date of Service: 12/06/24 Chief Complaint: Missed hemodialysis, hyperkalemia, anemia Subjective: Improving (Patient will require another dialysis session due to persistent hyperkalemia. She is also having persistent left foot pain. X-ray with equivocal findings.) Physical Examination - Vital Signs Temperature: 97.2 F Blood Pressure: 125/72 Pulse: 69 Respirations: 16 Pulse Ox (%): 97 - Physical Exam General: Acute distress, Other (Very hard of hearing) HEENT: Atraumatic, Normocephalic Respiratory: Clear to auscultation bilaterally, Normal air movement Cardiovascular: Normal pulses, Regular rate/rhythm, Normal S1 S2, Other (Left AV fistula), Edema Neurological: Normal speech - Studies Laboratory Data (last 24 hrs) 12/05/24 12/05/24 12/05/24 13:29 13:29 13:29 WBC 5.30 Hgb 6.5 L Hct 21.8 L Plt Count 60 L PT 16.7 H INR 1.50 Sodium 133 L Potassium 8.3 H* BUN 97 H Creatinine 14.20 H Glucose 204 H Magnesium 2.3 Total Bilirubin 0.7 AST < 10 L ALT < 14 Alkaline Phosphatase 258 H Assessment And Plan - Plan Assessment Patient is a 54-year-old -[place] female with known history of ESRD but missed her recent hemodialysis session due to acute pain issues. She arrived in the ER volume overloaded manifested by bilateral lower extremity edema, and in severe pain. She has a potassium of 8.3. Blood work showing hemoglobin of 6.5. Volume overload ESRDmissed last hemodialysis session Severe hyperkalemia Acute on chronic chronic systolic CHF Acute on chronic anemia secondary to ESRD Thrombocytopenia Hyponatremia Acute painleft foot pain Plan: Presented with a potassium of 8.3, now significantly down after emergent hemodialysis Patient required another dialysis session today for potassium of 5.3 Foot x-ray with erosive changes of the distal phalanx. Will obtain a formal foot MRI and arterial Doppler of the lower extremities Continue multimodal pain regimen. Home dose of gabapentin has been resumed. Will treat with as needed IV Dilaudid as well Physical therapy before discharge Patient has appropriately responded to blood transfusion No chemoprophylaxis due to thrombocytopenia and anemia Anticipating discharge today or tomorrow pending foot MRI and lower extremity a rterial Doppler
--- NOTE | 2024-12-06 12:16 | RAD REPORT ---
EXAMINATION:Lower Extremity Arterial Bilat CLINICAL INDICATION: Female, 54 years old. pain TECHNIQUE: Arterial duplex ultrasound was performed of the bilateral lower extremities with real-time , color-flow, and spectral wave Doppler evaluation. Ankle brachial indices were not performed. COMPARISON: No prior exam. FINDINGS: [id number] plaque throughout the evaluated arterial system. Right common femoral artery demonstrates triphasic waveform. Right superficial femoral artery proxima lly and all distal vessels are blunted and significantly monophasic. This suggests a flow-limiting stenosis is present in the region of the distal RIVER GUIDE/proximal SFA. Left common femoral artery demonstrates triphasic waveform. Left SFA demonstrates monophasic waveform s blunted amplitude distally. This suggests a flow-limiting stenosis is present in the region of the distal RIVER GUIDE/proximal SFA. IMPRESSION: Significant bilateral peripheral vascular disease is seen described above.
--- NOTE | 2024-12-06 16:54 | P.PN ---
Date of Service: 12/06/24 HPI The patient is a 54-year-old female. She has a history of renal failure. She is on hemodialysis via a left upper arm dialysis fistula. She was admitted with hyperkalemia. She has severe peripheral artery disease present bilaterally. She has monophasic waveforms in the superficial femoral arteries downwards bilaterally. She has erosive changes in the left foot. Given the presence of severe peripheral artery disease on ultrasound, recommend further evaluation with CTA with contrast. PMHx Congestive heart failure DIALYSIS Anemia HTN Type II DM PSHx FISTULA FHx mother- alive, has Hypertension son (first)- alive Soc Hx Never smoker Do not drink No illicit drug use Laboratory Last Values WBC 6.30 thou/uL (4.3-10.9) 12/06/24 05:41 RBC 4.59 M/uL (3.86-4.86) 12/06/24 05:41 Hgb 13.0 g/dL (12.0-15.0) D 12/06/24 05:41 Hct 40.4 % (36.0-45.0) 12/06/24 05:41 MCV 88.0 fL (80-100) 12/06/24 05:41 MCH 28.4 pg (27.0-35.0) D 12/06/24 05:41 MCHC 32.3 g/dL (32.0-36.0) 12/06/24 05:41 RDW 18.0 % (12.1-15.2) H 12/06/24 05:41 Plt Count 86 thou/uL (152-406) L D 12/06/24 05:41 MPV 9.9 fL (7.6-11.3) 12/06/24 05:41 Neutrophils % 68.5 % (41.7-73.7) 12/06/24 05:41 Lymphocytes % 17.7 % (15.3-44.8) 12/06/24 05:41 Monocytes % 11.8 % (3.3-12.3) 12/06/24 05:41 Eosinophils % 1.5 % (0-4.4) 12/06/24 05:41 Basophils % 0.5 % (0-1.3) 12/06/24 05:41 Absolute Neutrophils 4.3 K/uL (1.8-8.0) 12/06/24 05:41 Segmented Neutrophils 79 % (40-80) 12/05/24 13:29 Absolute Lymphocytes 1.1 K/uL (0.7-4.9) 12/06/24 05:41 Lymphocytes 9 % (15-42) L 12/05/24 13:29 Monocytes 10 % (0-10) 12/05/24 13:29 Absolute Monocytes 0.7 K/uL (0.1-1.3) 12/06/24 05:41 Eosinophils 2 % (0-3) 12/05/24 13:29 Absolute Eosinophils 0.1 K/uL (0-0.5) 12/06/24 05:41 Absolute Basophils 0.0 K/uL (0-0.5) 12/06/24 05:41 Platelet Estimate Decr 12/05/24 13:29 Morphology Comment Not seen (NOT SEEN) 12/05/24 13:29 PT 16.7 SECONDS (10-13.0) H 12/05/24 13:29 INR 1.50 12/05/24 13:29 pH Cancelled 12/05/24 16:32 pCO2 Cancelled 12/05/24 16:32 pO2 Cancelled 12/05/24 16:32 HCO3 Cancelled 12/05/24 16:32 Base Excess Cancelled 12/05/24 16:32 Oxyhemoglobin Cancelled 12/05/24 16:32 ABG O2 Sat (Measured) Cancelled 12/05/24 16:32 ABG Carboxyhemoglobin Cancelled 12/05/24 16:32 ABG Methemoglobin Cancelled 12/05/24 16:32 VBG pH 7.36 (7.32-7.42) 12/05/24 16:54 VBG pCO2 35 mmHg (41-51) L 12/05/24 16:54 VBG pO2 281 mmHg (25-40) H 12/05/24 16:54 VBG HCO3 19.8 mmol/L (21.0-29.0) L 12/05/24 16:54 VBG O2 Saturation 99.9 % (40.0-70.0) H 12/05/24 16:54 VBG Base Excess -5.6 mmol/L (-2.0-3.0) L 12/05/24 16:54 Venous Inspired Oxygen 100.0 % 12/05/24 16:54 Other Total Hgb Cancelled 12/05/24 16:32 Inspired O2 Cancelled 12/05/24 16:32 Sodium 137 mEq/L (136-145) D 12/06/24 05:41 Potassium 5.3 mEq/L (3.5-5.1) H D 12/06/24 05:41 Chloride 99 mEq/L (98-107) 12/06/24 05:41 Carbon Dioxide 25 mEq/L (21-32) 12/06/24 05:41 Anion Gap 18.3 mEq/L (5.0-15.0) H 12/06/24 05:41 BUN 60 mg/dL (7-18) H 12/06/24 05:41 Creatinine 10.80 mg/dL (0.55-1.02) H 12/06/24 05:41 Est GFR (CKD-EPI) 4 ml/min (=/>90) L 12/06/24 05:41 Glucose 94 mg/dL (74-106) 12/06/24 05:41 POC Glucose 204 mg/dL (65-120) H 12/06/24 11:31 Calcium 8.2 mg/dL (8.5-10.1) L 12/06/24 05:41 Phosphorus 6.7 mg/dL (2.5-4.9) H 12/06/24 05:41 Magnesium 2.0 mg/dL (1.6-2.4) 12/06/24 05:41 Total Bilirubin 0.7 mg/dL (0.2-1.0) 12/05/24 13:29 Direct Bilirubin 0.3 mg/dL (0-0.2) H 12/05/24 13:29 Indirect Bilirubin 0.4 mg/dL (0.2-0.8) 12/05/24 13:29 AST < 10 U/L (15-37) L 12/05/24 13:29 ALT < 14 U/L (13-56) 12/05/24 13:29 Alkaline Phosphatase 258 U/L (45-117) H 12/05/24 13:29 Troponin I High Sens 23.6 pg/mL (<58.9) 12/05/24 13:29 NT-Pro-B Natriuret Pep 57159 pg/mL (<125) H 12/05/24 13:29 Serum Total Protein 9.5 g/dL (6.4-8.2) H 12/05/24 13:29 Albumin 3.4 g/dL (3.4-5.0) 12/05/24 13:29 Globulin 6.1 g/dL (2.3-3.5) H 12/05/24 13:29 Albumin/Globulin Ratio 0.6 (1.1-1.8) L 12/05/24 13:29 Triglycerides 102 mg/dL (<150) 12/06/24 05:41 Cholesterol 96 mg/dL (<200) 12/06/24 05:41 LDL Cholesterol, Calc 38 mg/dL (<130) 12/06/24 05:41 HDL Cholesterol 38 mg/dL (40-60) L 12/06/24 05:41 Cholesterol/HDL Ratio 2.53 12/06/24 05:41 Hep Bs Antigen Nonreactive (Nonreactive) 12/05/24 16:54 Hep B Surface Ag Comm Report 12/05/24 16:54 Hep Bs Antibody Reactive (Nonreactive) H 12/05/24 16:54 Hep Bs Antibody, Quant 151.23 mIU/mL (<8.0) 12/05/24 16:54 ABO/Rh Cancelled 12/05/24 15:31 Solid Phase Ab Screen Cancelled 12/05/24 15:31 Crossmatch See Detail 12/05/24 15:31 Temp Pulse Resp BP Pulse Ox 97.9 F 70 18 133/71 95 12/06/24 12:54 12/06/24 12:54 12/06/24 12:54 12/06/24 12:54 12/06/24 12:54 Ros: 10 POINT REVIEW OF SYSTEMS OTHERWISE NONCONTRIBUTORY EXAM GEN: NAD, cooperative with exam, well groomed, well developed, well nourished HEENT: Head normocephalic, atraumatic, head normocephalic, head atraumatic, EOMI NECK: full range of motion, trachea midline, no increased JVP visible RESP: no respiratory distress, no use of accessory muscles of respiration CV: regular rate and rhythm , pulse rate regular GI: NL abdominal inspection, soft, nontender to palpation, no rebound/guarding/rigidity DERM: (-)diaphoresis, (-)periorbital xanthelasma, (-)xanthomas, (-)cyanosis PSYCH: alert and oriented to time, place, and person, normal mood, normal affect Left le+ edema. Dorsalis pedis and posterior tibial pulses nonpalpable. Results Results of arterial ultrasound reviewed ASSESSMENT AND PLAN: patient with history of hypertension, diabetes, on hemodialysis. Arterial ultrasound demonstrates severe bilateral leg peripheral artery disease. Potentially erosive changes of the left foot. Further evaluation with CT angiogram with contrast.
--- NOTE | 2024-12-06 19:07 | RAD REPORT ---
EXAM: Foot Left Wo Cont HISTORY: Foot pain and swelling COMPARISON: December 06, 2024 x-ray TECHNIQUE: Axial, sagittal and coronal magnetic resonance imaging of the left foot obtained FINDINGS: The x-ray demonstrates a subtle erosive change involving the lateral aspect of the base of the first distal phalanx. T1 weighted sequences demonstrate this to have normal signal. Osteomyelitis is doubtful. Diffuse edema is present within the subcutaneous tissues. This is most marked along the dorsal aspect of the foot. This may indicate a cellulitis. No significant abnormal signal within the bones visualized to suggest osteomyelitis No fracture seen. IMPRESSION: Diffuse edema within the subcutaneous tissues could indicate venous stasis or cellulitis No evidence of osteomyelitis
[2024-12-06] MEDS ORDERED: GABAPENTIN 100 MG CAP PO SCH (21:00)
[2024-12-06] MEDS: NIFEDIPINE XL 60 MG TABLET PO SCH (21:07)
[2024-12-07 07:04] LABS: Absolute Lymphocytes (CBC) 0.8 K/uL (0.7-4.9); Hematocrit 39.7 % (36.0-45.0); Hemoglobin 13.1 g/dL (12.0-15.0); MCH 28.8 pg (27.0-35.0); MCHC 33.0 g/dL (32.0-36.0); MCV 87.4 fL (80-100); MPV 9.5 fL (7.6-11.3); Nucleated RBC Absolute Count 0.0 (0-0); Nucleated Red Blood Cells % 0.3 % (0-0); RBC Red Blood Cell Count 4.54 M/uL (3.86-4.86); White Blood Count 5.00 thou/uL (4.3-10.9)
[2024-12-07 07:10] LABS: Albumin 3.1 g/dL (3.4-5.0); Anion Gap 12.5 mEq/L (5.0-15.0); BUN Blood Urea Nitrogen 40.0 mg/dL (7-18); Glucose Level 129.0 mg/dL (74-106); Potassium 4.5 mEq/L (3.5-5.1)
[2024-12-07] MEDS ORDERED: GABAPENTIN 100 MG CAP PO SCH (09:00)
--- NOTE | 2024-12-07 11:09 | P.PN ---
Subjective Date of Service: 12/07/24 Chief Complaint: Missed hemodialysis, hyperkalemia, anemia Subjective: Improving (No acute events overnight. Patient's left foot pain is controlled. She has severe peripheral vascular disease and she is pending CTA with runoff.) Physical Examination - Vital Signs Temperature: 98.1 F Blood Pressure: 105/58 Pulse: 66 Respirations: 18 Pulse Ox (%): 93 - Physical Exam General: In no apparent distress, Cooperative, Other (Very hard of hearing. Blind) HEENT: Atraumatic, Normocephalic Respiratory: Clear to auscultation bilaterally, Normal air movement Cardiovascular: No edema, Normal pulses, Regular rate/rhythm, Normal S1 S2, Other (Left AV fistula) Neurological: Normal speech Assessment And Plan - Plan Assessment Patient is a 54-year-old -[place]ong[place] female with known history of ESRD but missed her recent hemodialysis session due to acute pain issues. She arrived in the ER volume overloaded manifested by bilateral lower extremity edema, and in severe pain. She has a potassium of 8.3. Her initial blood work showing hemoglobin of 6.5. She has received emergent dialysis and blood transfusion. Potassium and hemoglobin now significantly improved. Her initial presentation was left foot pain. She has been found to have severe peripheral vascular disease. Vascular surgery consulted. A CTA runoff was ordered on 12/06. Volume overload ESRDmissed last hemodialysis session Severe hyperkalemia Acute on chronic chronic systolic CHF Acute on chronic anemia secondary to ESRD Thrombocytopenia Hyponatremia Acute painleft foot pain Severe peripheral vascular diseaseas per lower extremity arterial Doppler Plan: Most of the above issues have been stabilized except for peripheral artery disease CTA with runoff ordered as recommended by vascular surgery. Pending Her pain is controlled on current regimen Continue multimodal pain regimen. Home dose of gabapentin has been resumed. Will treat with as needed IV Dilaudid as well Physical therapy before discharge No chemoprophylaxis due to thrombocytopenia and anemia Discharge pending clearance by vascular surgery
[2024-12-07 14:28] VITALS: BMI 27.2
--- NOTE | 2024-12-07 20:58 | P.PN ---
Date of Service: 12/07/24 Vital Signs Temp Pulse Resp BP Pulse Ox 98.0 F 65 16 121/62 93 12/07/24 16:00 12/07/24 16:00 12/07/24 16:00 12/07/24 16:00 12/07/24 16:00 Medications Calcitriol (Calcitrol 0.25 Mcg Cap) 0.5 mcg PO DAILY [facility] Last Admin: 12/07/24 08:16 Dose: 0.5 mcg Carvedilol (Carvedilol 25 Mg Tab) 25 mg PO DAILY [facility] Last Admin: 12/07/24 08:16 Dose: Not Given Cinacalcet (Cinacalcet Hcl 30 Mg Tab) 30 mg PO DAILY [facility] Last Admin: 12/07/24 08:16 Dose: 30 mg Docusate Sodium (Docusate Na 100 Mg Cap) 100 mg PO BID [facility] Last Admin: 12/07/24 20:15 Dose: 100 mg Enteral Nutritional Formula (Nepro Shake 237 Ml Can) 237 ml PO TID [facility] Last Admin: 12/07/24 20:15 Dose: Not Given Epoetin Drew (Epoetin Drew 10,000 Unit/Ml Vial) 10,000 unit IV EVERY HD [facility] Ergocalciferol (Drisdol (Vitamin D=Ergocalciferol) 40810 Unit Cap) 50,000 unit PO Q7D@0900 [facility] Last Admin: 12/06/24 09:19 Dose: 50,000 unit Gabapentin (Gabapentin 100 Mg Cap) 200 mg PO BEDTIME [facility] Last Admin: 12/07/24 20:15 Dose: 200 mg Gabapentin (Gabapentin 100 Mg Cap) 100 mg PO DAILY [facility] Last Admin: 12/07/24 08:16 Dose: 100 mg Heparin Sodium (Porcine) (Heparin 1,000 Unit/Ml Vial) 3,000 unit IV EVERY HD PRN PRN Reason: Prevent HD System Clotting Last Admin: 12/06/24 15:12 Dose: 3,000 unit Hydralazine HCl (Hydralazine Hcl 20 Mg/Ml Vial) 10 mg IV Q4HP PRN PRN Reason: FOR SBP>160 OR DBP>100 MMHG Last Admin: 12/05/24 20:08 Dose: 10 mg Hydromorphone HCl (Hydromorphone Hcl 1 Mg/Ml Inj) 1 mg IV Q4H PRN PRN Reason: Pain scale 8-10 (Severe) Albumin Human (Albumin 25%) 50 mls @ 100 mls/hr IV EVERY HD [facility] Mannitol (Mannitol 25% 12.5 Gm/50 Ml Vial) 12.5 gm IV EVERY HD PRN PRN Reason: Titrate to SBP (MUST DEFINE) Meclizine HCl (Meclizine Hcl 12.5 Mg Tab) 25 mg PO TID PRN PRN Reason: DIZZINESS Nifedipine (Nifedipine Xl 60 Mg Tablet) 60 mg PO BID [facility] Last Admin: 12/07/24 20:15 Dose: Not Given Ondansetron HCl (Ondansetron 4 Mg/2 Ml Vial) 4 mg IV Q6HP PRN PRN Reason: NAUSEA / VOMITING Sevelamer Carbonate (Sevelamer Carbonate 800 Mg Tablet) 1,600 mg PO TIDWM [facility] Last Admin: 12/07/24 16:26 Dose: 1,600 mg Vitamin B Complex/Vit C/Folic Acid (Multivitamins,Therapeut 1 Tab) 1 tab PO DAILY [facility] Last Admin: 12/07/24 08:16 Dose: 1 tab Assessment/ Plan: Nephrology No dyspnea No chest pain No acute events overnight Vitals, medications, blood work and imaging reviewed in the chart General: Oriented x3, Cooperative, Mild distress HEENT: Atraumatic Neck: Supple Respiratory: Diminished Cardiovascular: No edema, Regular rate/rhythm Gastrointestinal: Soft and benign, Non-distended Musculoskeletal: No clubbing, No contractures Integumentary: Skin lesion Neurological: Normal speech (Poor hearing) Laboratory Data (last 24 hrs) 12/05/24 12/05/24 12/05/24 13:29 13:29 13:29 WBC 5.30 Hgb 6.5 L Hct 21.8 L Plt Count 60 L PT 16.7 H INR 1.50 Sodium 133 L Potassium 8.3 H* BUN 97 H Creatinine 14.20 H Glucose 204 H Magnesium 2.3 Total Bilirubin 0.7 AST < 10 L ALT < 14 Alkaline Phosphatase 258 H Imagings Data: EXAMINATION: ONE VIEW CHEST XR CLINICAL INDICATION: CHEST PAIN TECHNIQUE: Frontal chest projection is submitted. Examination is limited by patient positioning and technique. COMPARISON: 04/19/2022 FINDINGS: Mild bilateral pulmonary opacities with bilateral pleural effusions likely representing pulmonary edema. The cardiac silhoutte is severely enlarged in size. No displaced fractures identified. Sternotomy wires. IMPRESSION: Mild/moderate CHF versus volume overload pattern. Conclusions/Impression: ESRD on HD Hyponatremia -HD TIW Hyperkalemia -HD TIW HTN with CKD/ CHF -Continue Nifedipine XL 60mg BID -Continue Coreg BID Diastolic CHF, A/C -UF with HD -Low sodium diet DM II with Hyperglycemia, CKD, Polyneuropathy and Peripheral Angiopathy -RISS prn Anemia in CKD Thrombocytopenia -Retacrit qHD -PRBC as ordered -Monitor CBC CKD MBD Secondary HyperParathyroidism -Continue Renvela -Continue Ergo and Calcitriol Hospitalist note reviewed
[2024-12-08 07:49] LABS: Hematocrit 39.1 % (36.0-45.0); Hemoglobin 12.5 g/dL (12.0-15.0); MCH 28.2 pg (27.0-35.0); MCHC 32.0 g/dL (32.0-36.0); MCV 88.1 fL (80-100); MPV 9.9 fL (7.6-11.3); RBC Red Blood Cell Count 4.44 M/uL (3.86-4.86); White Blood Count 5.30 thou/uL (4.3-10.9)
[2024-12-08 08:09] LABS: Anion Gap 13.8 mEq/L (5.0-15.0); BUN Blood Urea Nitrogen 51.0 mg/dL (7-18); Glucose Level 107.0 mg/dL (74-106); Magnesium 2.1 mg/dL (1.6-2.4); Potassium 4.8 mEq/L (3.5-5.1)
[2024-12-08 09:31] LABS: Blood Morphology Comment NOT SEEN (NOT SEEN); White Blood Cell Scan OK (OK)
--- NOTE | 2024-12-08 11:58 | P.PN ---
Date of Service: 12/08/24 Subjective: no acute events awaiting CTA Physical Exam: GEN: Alert, NAD, hard of hearing CV: Regular rate and rhythm Pulm: Nonlabored respirations on room air Integumentary: Lower extremity wounds. (photos in EMR) Left AV fistula Problem List: Acute left foot pain Severe peripheral vascular disease Volume overload secondary to missed HD ESRDon HD Severe hyperkalemia, resolved Mild Hyponatremia Acute on chronic chronic systolic CHF Acute on chronic anemia secondary to ESRD Thrombocytopenia Hyponatremia Acute left foot pain Severe peripheral vascular disease Venous u/s negative for DVT in either lower extremity Arterial doppler noted severe diffuse PVD MRI foot was negative for osteomyelitis. Noted Diffuse edema within the subcutaneous tissues could indicate venous stasis or cellulitis. Dr. Corley consulted CTA with runoff ordered to further evaluate Continue PT, pain control Volume overload secondary to missed HD ESRDon HD Severe hyperkalemia, resolved mild Hyponatremia Acute on chronic chronic systolic CHF Continue to monitor renal function Monitor and replete electrolytes as needed Hyperkalemia resolved. Nephrology is following Dialysis per nephrology Acute on chronic anemia secondary to ESRD Thrombocytopenia Daily labs. Hgb Stable. Platelets low, but improved compared to admission Code: Full Dispo: Home Pending CTA, further vascular recs pending CTA results Time Spent Managing Pts Care (In Minutes):45
--- NOTE | 2024-12-08 17:00 | P.PN ---
Date of Service: 12/08/24 Vital Signs Temp Pulse Resp BP Pulse Ox 97.6 F 69 14 129/66 92 12/08/24 12:00 12/08/24 12:00 12/08/24 12:00 12/08/24 12:00 12/08/24 12:00 Medications Calcitriol (Calcitrol 0.25 Mcg Cap) 0.5 mcg PO DAILY [facility] Last Admin: 12/08/24 09:41 Dose: 0.5 mcg Carvedilol (Carvedilol 25 Mg Tab) 25 mg PO DAILY [facility] Last Admin: 12/08/24 09:41 Dose: 25 mg Cinacalcet (Cinacalcet Hcl 30 Mg Tab) 30 mg PO DAILY [facility] Last Admin: 12/08/24 09:41 Dose: 30 mg Docusate Sodium (Docusate Na 100 Mg Cap) 100 mg PO BID [facility] Last Admin: 12/08/24 09:41 Dose: 100 mg Enteral Nutritional Formula (Nepro Shake 237 Ml Can) 237 ml PO TID [facility] Last Admin: 12/08/24 13:03 Dose: 237 ml Epoetin Drew (Epoetin Drew 10,000 Unit/Ml Vial) 10,000 unit IV EVERY HD [facility] Ergocalciferol (Drisdol (Vitamin D=Ergocalciferol) 77313 Unit Cap) 50,000 unit PO Q7D@0900 [facility] Last Admin: 12/06/24 09:19 Dose: 50,000 unit Gabapentin (Gabapentin 100 Mg Cap) 200 mg PO BEDTIME [facility] Last Admin: 12/07/24 20:15 Dose: 200 mg Gabapentin (Gabapentin 100 Mg Cap) 100 mg PO DAILY [facility] Last Admin: 12/08/24 09:42 Dose: 100 mg Heparin Sodium (Porcine) (Heparin 1,000 Unit/Ml Vial) 3,000 unit IV EVERY HD PRN PRN Reason: Prevent HD System Clotting Last Admin: 12/06/24 15:12 Dose: 3,000 unit Hydralazine HCl (Hydralazine Hcl 20 Mg/Ml Vial) 10 mg IV Q4HP PRN PRN Reason: FOR SBP>160 OR DBP>100 MM[facility] Last Admin: 12/05/24 20:08 Dose: 10 mg Hydromorphone HCl (Hydromorphone Hcl 1 Mg/Ml Inj) 1 mg IV Q4H PRN PRN Reason: Pain scale 8-10 (Severe) Albumin Human (Albumin 25%) 50 mls @ 100 mls/hr IV EVERY HD [facility] Mannitol (Mannitol 25% 12.5 Gm/50 Ml Vial) 12.5 gm IV EVERY HD PRN PRN Reason: Titrate to SBP (MUST DEFINE) Meclizine HCl (Meclizine Hcl 12.5 Mg Tab) 25 mg PO TID PRN PRN Reason: DIZZINESS Nifedipine (Nifedipine Xl 60 Mg Tablet) 60 mg PO BID [facility] Last Admin: 12/08/24 09:41 Dose: 60 mg Ondansetron HCl (Ondansetron 4 Mg/2 Ml Vial) 4 mg IV Q6HP PRN PRN Reason: NAUSEA / VOMITING Sevelamer Carbonate (Sevelamer Carbonate 800 Mg Tablet) 1,600 mg PO TIDWM [facility] Last Admin: 12/08/24 13:02 Dose: 1,600 mg Vitamin B Complex/Vit C/Folic Acid (Multivitamins,Therapeut 1 Tab) 1 tab PO DAILY [facility] Last Admin: 12/08/24 09:41 Dose: 1 tab Assessment/ Plan: Nephrology No dyspnea No chest pain No acute events overnight Vitals, medications, blood work and imaging reviewed in the chart General: Oriented x3, Cooperative, NAD HEENT: Atraumatic Neck: Supple Respiratory: Normal resp effort Cardiovascular: No edema, Regular rate/rhythm Gastrointestinal: Soft and benign, Non-distended Musculoskeletal: No clubbing, No contractures Integumentary: Skin lesion Neurological: Normal speech (Poor hearing) Laboratory Data (last 24 hrs) 12/05/24 12/05/24 12/05/24 13:29 13:29 13:29 WBC 5.30 Hgb 6.5 L Hct 21.8 L Plt Count 60 L PT 16.7 H INR 1.50 Sodium 133 L Potassium 8.3 H* BUN 97 H Creatinine 14.20 H Glucose 204 H Magnesium 2.3 Total Bilirubin 0.7 AST < 10 L ALT < 14 Alkaline Phosphatase 258 H Imagings Data: EXAMINATION: ONE VIEW CHEST XR CLINICAL INDICATION: CHEST PAIN TECHNIQUE: Frontal chest projection is submitted. Examination is limited by patient positioning and technique. COMPARISON: 04/19/2022 FINDINGS: Mild bilateral pulmonary opacities with bilateral pleural effusions likely representing pulmonary edema. The cardiac silhoutte is severely enlarged in size. No displaced fractures identified. Sternotomy wires. IMPRESSION: Mild/moderate CHF versus volume overload pattern. Conclusions/Impression: ESRD on HD Hyponatremia -HD TIW Hyperkalemia -HD TIW HTN with CKD/ CHF -Continue Nifedipine XL 60mg BID -Continue Coreg BID Systolic CHF, A/C -UF with HD -Low sodium diet DM II with Hyperglycemia, CKD, Polyneuropathy and Peripheral Angiopathy -RISS prn Anemia in CKD Thrombocytopenia -Retacrit qHD -PRBC as ordered -Monitor CBC CKD MBD Secondary HyperParathyroidism -Continue Renvela -Continue Ergo and Calcitriol Left foot pain in the setting of severe PAD -Follow up with vascular sx Hospitalist note reviewed Case discussed with Dr. Hartman
[2024-12-08] MEDS: ONDANSETRON 4 MG/2 ML VIAL IV PRN (20:33)
--- NOTE | 2024-12-08 21:58 | RAD REPORT ---
EXAM: CTA pelvis, CTA Lower Ext Angio HISTORY: [facility] MAIN PAD runoff with pelvis angio COMPARISON: None TECHNIQUE: Multiple contiguous axial images were obtained a CTA of the pelvis, with lower extremity r unoffs, performed following IV contrast administration. Sagittal and coronal 3-D MIP reformats were performed. One or more of the following dose reduction techniques were used: Automated exposure contr ol, adjustment of the mA and kV according to patient size, and iterative reconstruction. Unless otherwise specified, incidental findings do not require dedicated imaging follow-up. FINDINGS: BOWEL: Unremarkable. RETROPERITONEUM: No lymphadenopathy. Mild to moderate free ascites in the deep pelvis BONES: Degenerative changes in the spine. Bilateral L5 pars interarticularis defects. ABDOMINAL AORTA: Normal caliber without evidence of dissection or aneurysmal dilatation. CELIAC TRUNK: Patent SMA: Patent ROCIO: Patent RENAL ARTERIES: Bilateral single renal arteries without significant atherosclerotic disease RIGHT LOWER EXTREMITY: Patent external iliac artery. Dense atherosclerotic changes along the right in ternal iliac artery with multifocal up to severe stenosis. Multifocal atherosclerotic narrowing of the superficial femoral artery including a short segment of up to severe narrowing starting at axial image 76/248 through axial image 91. Patent common femoral, deep femoral, and popliteal arteries, with multifocal up to mild narrowing. Patent anterior tibial artery, tibioperoneal trunk, posterior t ibial, and peroneal arteries, to the level of the dorsalis pedis artery, with multifocal up to mild narrowing. LEFT LOWER EXTREMITY: Patent external iliac artery. Dense atherosclerotic changes along the left inte rnal iliac artery with multifocal up to severe stenosis. Patent common femoral, superficial femoral, deep femoral, and popliteal arteries with moderate to dense atherosclerotic calcifications r esulting in multifocal up to severe narrowing of the superficial femoral artery most notably at the mid to distal left thigh. Patent anterior tibial artery, tibioperoneal trunk, posterior tibial, and p eroneal arteries, to the level of the dorsalis pedis artery. IMPRESSION: Moderate to advanced atherosclerotic changes with multifocal severe narrowing along the left superfic ial femoral artery and multifocal narrowing throughout the right lower extremity with up to short segment of severe narrowing along the mid to distal superficial femoral artery. Mild to moderate free ascites in the deep pelvis.
[2024-12-09 05:16] LABS: Hematocrit 38.1 % (36.0-45.0); Hemoglobin 12.1 g/dL (12.0-15.0); MCH 28.1 pg (27.0-35.0); MCHC 31.8 g/dL (32.0-36.0); MCV 88.5 fL (80-100); MPV 9.5 fL (7.6-11.3); RBC Red Blood Cell Count 4.31 M/uL (3.86-4.86); White Blood Count 4.80 thou/uL (4.3-10.9)
[2024-12-09 05:35] LABS: Albumin 2.8 g/dL (3.4-5.0); Anion Gap 13.0 mEq/L (5.0-15.0); BUN Blood Urea Nitrogen 63.0 mg/dL (7-18); Glucose Level 127.0 mg/dL (74-106); Magnesium 2.2 mg/dL (1.6-2.4); Potassium 5.0 mEq/L (3.5-5.1)
[2024-12-09 08:17] VITALS: O2SAT 92
--- NOTE | 2024-12-09 11:24 | P.DS ---
Admission Date: 12/06/24 Discharge Date: 12/09/24 Disposition: ROUTINE DISCHARGE Discharge Condition: GOOD Reason for Admission: Missed hemodialysis, hyperkalemia, anemia Consultations: IR/Vascular - Dr. Corley Nephrology - Dr. Ora Salinas Brief History of Present Illness: 54yo F, PMH: ESRD, chronic systolic CHF, coronary disease and type 2 diabetes mellitus complicated by diabetic neuropathy, and gastroparesis. She presented to the ER complaining of generalized malaise and bilateral lower extremity pain and edema. Patient has been having pain for the past 5 days. She even skipped her hemodialysis session to make it to a clinic appointment in order to address this issue. She is on hemodialysis Monday and was not dialyzed on Monday. She follows up with Dr. Nina. She received an order for venous Doppler studies. In the meantime, she has developed fluid buildup and worsening lower extremity pain. She decided to present to the ER today due to worsening symptoms of shortness of breath, malaise and lower extremity edema. Patient arrived in the ER in severe pain and distress. She has evidence of bilateral lower extremity edema. Blood work is significant for potassium of 5.3 and a hemoglobin of 6.5. She is being emergently dialyzed in the ER. A unit of blood was also ordered. Hospital Course: Problem List: Acute left foot pain Severe peripheral vascular disease Volume overload secondary to missed HD ESRDon HD Severe hyperkalemia, resolved Mild Hyponatremia, improved Acute on chronic chronic systolic CHF Acute on chronic anemia secondary to ESRD Thrombocytopenia Physician discharge instructions: Patient presented to the ED with worsening bilateral lower extremity pain and swelling, weakness, shortness of breath secondary to volume overload related to missed dialysis. Creatinine 14.2 on admission, potassium significantly elevated 8.3 Nephrology was consulted for assistance with dialysis. Patient had improvement of her symptoms with HD. Discussed with nephrology, patient is to resume her regular dialysis schedule on discharge. In regards to her lower extremity pain, venous ultrasound was negative for DVT in either lower extremity. MRI foot was negative for osteomyelitis but did note Diffuse edema within the subcutaneous tissues could indicate venous stasis or cellulitis. Arterial doppler noted severe diffuse PVD. Dr. Corley was consulted for further input and recommended CTA lower extremities to further evaluate which noted multifocal stenosis bilaterally as noted below. Dr. Corley had recommended following up in the office later this week for further management. No indications to warrant further inpatient testing. Patient is to follow up with Dr. Corley 4pm on Monday at his office for further management and to discuss further definitive treatment/possible surgery. There was no evidence of ongoing infection and patient was not treated with antibiotics during her hospitalization. The wounds did not look infected. She worked with physical therapy throughout hospitalization and was able to ambulate ~250ft with minimal assistance. Patient was feeling better, leg pain tolerable , strength improving and was deemed stable for discharge. She was noted to be anemic on admission with hemoglobin of 6.5 requiring 1 blood transfusion. Anemia related to ESRD. Her hemoglobin improved to 13 and remained stable in 12-13s without the need for further transfusions. Medications: continue home meds as previously prescribed. Follow up: Dialysis tomorrow (12/10) - per Dr. Nina - resume regular dialysis schedule. PCP 3-5 days Nephrology in 1-[address] Corley on Monday at 4pm at his office Please call to schedule / confirm appointments Dr. Corley office number: [phone] Lower extremity/Pelvis CTA results: RIGHT LOWER EXTREMITY: Patent external iliac artery. Dense atherosclerotic changes along the right internal iliac artery with multifocal up to severe stenosis. Multifocal atherosclerotic narrowing ofthe superficial femoral artery including a short segment of up to severe narrowing starting at axial image 76/248 through axial image 91. Patent common femoral, deep femoral, and popliteal arteries,with multifocal up to mild narrowing. Patent anterior tibial artery, tibioperoneal trunk, posterior tibial, and peroneal arteries, to the level of the dorsalis pedis artery, with multifocal up to mildnarrowing. LEFT LOWER EXTREMITY: Patent external iliac artery. Dense atherosclerotic changes along the left internal iliac artery with multifocal up to severe stenosis. Patent common femoral, superficial femoral, deep femoral, and popliteal arteries with moderate to dense atherosclerotic calcifications resulting in multifocal up to severe narrowing of the superficial femoral artery most notably at themid to distal left thigh. Patent anterior tibial artery, tib ioperoneal trunk, posterior tibial, and peroneal arteries, to the level of the dorsalis pedis artery Mild to moderate free ascites in the deep pelvis Physical Exam: GEN: Alert, NAD, hard of hearing CV: Regular rate and rhythm Pulm: Nonlabored respirations on room air Integumentary: Lower extremity wounds. (photos in EMR) Left AV fistula Vital Signs/Physical Exam: Temp Pulse Resp BP Pulse Ox 98.0 F 64 14 115/56 L 91 12/09/24 08:00 12/09/24 08:00 12/09/24 08:00 12/09/24 09:18 12/09/24 08:00 Laboratory Data at Discharge: WBC 4.80 thou/uL (4.3-10.9) 12/09/24 05:05 Hgb 12.1 g/dL (12.0-15.0) 12/09/24 05:05 Hct 38.1 % (36.0-45.0) 12/09/24 05:05 Plt Count 79 thou/uL (152-406) L 12/09/24 05:05 PT 16.7 SECONDS (10-13.0) H 12/05/24 13:29 INR 1.50 12/05/24 13:29 Sodium 134 mEq/L (136-145) L 12/09/24 05:05 Potassium 5.0 mEq/L (3.5-5.1) 12/09/24 05:05 BUN 63 mg/dL (7-18) H 12/09/24 05:05 Creatinine 11.00 mg/dL (0.55-1.02) H 12/09/24 05:05 Glucose 127 mg/dL (74-106) H 12/09/24 05:05 Phosphorus 6.9 mg/dL (2.5-4.9) H 12/09/24 05:05 Magnesium 2.2 mg/dL (1.6-2.4) 12/09/24 05:05 Total Bilirubin 0.7 mg/dL (0.2-1.0) 12/05/24 13:29 AST < 10 U/L (15-37) L 12/05/24 13:29 ALT < 14 U/L (13-56) 12/05/24 13:29 Alkaline Phosphatase 258 U/L (45-117) H 12/05/24 13:29 Triglycerides 102 mg/dL (<150) 12/06/24 05:41 Cholesterol 96 mg/dL (<200) 12/06/24 05:41 HDL Cholesterol 38 mg/dL (40-60) L 12/06/24 05:41 Cholesterol/HDL Ratio 2.53 12/06/24 05:41 Home Medications: Gabapentin 100 mg PO DAILY 06/09/20 Gabapentin 200 mg PO BEDTIME 06/09/20 Meclizine HCl [Antivert] 25 mg PO TID PRN 12/06/24 carvediloL [Coreg*] 25 mg PO DAILY 12/06/24 Physician Discharge Instructions: Physician discharge instructions: Patient presented to the ED with worsening bilateral lower extremity pain and swelling, weakness, shortness of breath secondary to volume overload related to missed dialysis. Creatinine 14.2 on admission, potassium significantly elevated 8.3 Nephrology was consulted for assistance with dialysis. Patient had improvement of her symptoms with HD. Discussed with nephrology, patient is to resume her regular dialysis schedule on discharge. In regards to her lower extremity pain, venous ultrasound was negative for DVT in either lower extremity. MRI foot was negative for osteomyelitis but did note Diffuse edema within the subcutaneous tissues could indicate venous stasis or cellulitis. Arterial doppler noted severe diffuse PVD. Dr. Corley was consulted for further input and recommended CTA lower extremities to further evaluate which noted multifocal stenosis bilaterally as noted below. Dr. Corley had recommended following up in the office later this week for further management. No indications to warrant further inpatient testing. Patient is to follow up with Dr. Corley 4pm on Monday at his office for further management and to discuss further definitive treatment/possible surgery. There was no evidence of ongoing infection and patient was not treated with antibiotics during her hospitalization. The wounds did not look infected. She worked with physical therapy throughout hospitalization and was able to ambulate ~250ft with minimal assistance. Patient was feeling better, leg pain tolerable , strength improving and was deemed stable for discharge. She was noted to be anemic on admission with hemoglobin of 6.5 requiring 1 blood transfusion. Anemia related to ESRD. Her hemoglobin improved to 13 and remained stable in 12-13s without the need for further transfusions. Medications: continue home meds as previously prescribed. Follow up: Dialysis tomorrow (12/10) - per Dr. Nina - resume regular dialysis schedule. PCP 3-5 days Nephrology in 1-[address] Corley on Monday at 4pm at his office Please call to schedule / confirm appointments Dr. Corley office number: [phone] Lower extremity/Pelvis CTA results: RIGHT LOWER EXTREMITY: Patent external iliac artery. Dense atherosclerotic changes along the right internal iliac artery with multifocal up to severe stenosis. Multifocal atherosclerotic narrowing ofthe superficial femoral artery including a short segment of up to severe narrowing starting at axial image 76/2 48 through axial image 91. Patent common femoral, deep femoral, and popliteal arteries,with multifocal up to mild narrowing. Patent anterior tibial artery, tibioperoneal trunk, posterior tibial, and peroneal arteries, to the level of the dorsalis pedis artery, with multifocal up to mildnarrowing. LEFT LOWER EXTREMITY: Patent external iliac artery. Dense atherosclerotic changes along the left internal iliac artery with multifocal up to severe stenosis. Patent common femoral, superficial femoral, deep femoral, and popliteal arteries with moderate to dense atherosclerotic calcifications resulting in multifocal up to severe narrowing of the superficial femoral artery most notably at themid to distal left thigh. Patent anterior tibial artery, tibioperoneal trunk, posterior tibial, and peroneal arteries, to the level of the dorsalis pedis artery Mild to moderate free ascites in the deep pelvis Followup: Kb Nina DO [Primary Care Provider] - 1-2 Weeks Time spent managing pt's care (in minutes): 45
[2024-12-09 16:21] VITALS: BP 138/71; TEMP 97.9
--- NOTE | 2024-12-09 19:49 | P.PN ---
Date of Service: 12/09/24 Vital Signs Temp Pulse Resp BP Pulse Ox 97.9 F 70 16 138/71 90 L 12/09/24 16:00 12/09/24 16:00 12/09/24 16:00 12/09/24 16:00 12/09/24 16:00 Assessment/ Plan: Nephrology No dyspnea No chest pain No acute events overnight Vitals, medications, blood work and imaging reviewed in the chart General: Oriented x3, Cooperative, NAD HEENT: Atraumatic Neck: Supple Respiratory: Normal resp effort Cardiovascular: No edema, Regular rate/rhythm Gastrointestinal: Soft and benign, Non-distended Musculoskeletal: No clubbing, No contractures Integumentary: Skin lesion Neurological: Normal speech (Poor hearing) Laboratory Data (last 24 hrs) 12/05/24 12/05/24 12/05/24 13:29 13:29 13:29 WBC 5.30 Hgb 6.5 L Hct 21.8 L Plt Count 60 L PT 16.7 H INR 1.50 Sodium 133 L Potassium 8.3 H* BUN 97 H Creatinine 14.20 H Glucose 204 H Magnesium 2.3 Total Bilirubin 0.7 AST < 10 L ALT < 14 Alkaline Phosphatase 258 H Imagings Data: EXAMINATION: ONE VIEW CHEST XR CLINICAL INDICATION: CHEST PAIN TECHNIQUE: Frontal chest projection is submitted. Examination is limited by patient positioning and technique. COMPARISON: 04/19/2022 FINDINGS: Mild bilateral pulmonary opacities with bilateral pleural effusions likely representing pulmonary edema. The cardiac silhoutte is severely enlarged in size. No displaced fractures identified. Sternotomy wires. IMPRESSION: Mild/moderate CHF versus volume overload pattern. Conclusions/Impression: ESRD on HD Hyponatremia -HD TIW -Acute HD today due to contrast exposure Hyperkalemia -HD TIW HTN with CKD/ CHF -Continue Nifedipine XL 60mg BID -Continue Coreg BID Systolic CHF, A/C -UF with HD -Low sodium diet DM II with Hyperglycemia, CKD, Polyneuropathy and Peripheral Angiopathy -RISS prn Anemia in CKD Thrombocytopenia -Retacrit qHD -PRBC as ordered -Monitor CBC CKD MBD Secondary HyperParathyroidism -Continue Renvela -Continue Ergo and Calcitriol Left foot pain in the setting of severe PAD -Follow up with vascular sx Hospitalist note reviewed Case discussed with Dr. Hartman
== END 2024-12-09 16:57 | disposition home or self-care (01) | DRG 640 ==
LOC: ER 12:45 → ERHOLD 15:04 → 3RD-ICU 15:34 → 2ND 12-06 12:29 → OBSVTOIN 12-06 12:29
PROVIDERS: ADMIT Internal Medicine; ATTEND Hospitalist
PROC: 30233N1 Transfusion of Nonautologous Red Blood Cells into Peripheral Vein, Percutaneous Approach (ICD-10-PCS; 2024-12-05)
PROC: 5A1D70Z Performance of Urinary Filtration, Intermittent, Less than 6 Hours Per Day (ICD-10-PCS; principal; 2024-12-06)
PROC: 02HV33Z Insertion of Infusion Device into Superior Vena Cava, Percutaneous Approach (ICD-10-PCS; 2024-12-08)
DX: E87.70 Fluid overload, unspecified (principal); I50.23 Acute on chronic systolic (congestive) heart failure; N18.6 End stage renal disease; I13.2 Hypertensive heart and chronic kidney disease with heart failure and with stage 5 chronic kidney disease, or end stage renal disease; N25.81 Secondary hyperparathyroidism of renal origin; E87.5 Hyperkalemia; E87.1 Hypo-osmolality and hyponatremia; E11.22 Type 2 diabetes mellitus with diabetic chronic kidney disease; D63.1 Anemia in chronic kidney disease; E11.65 Type 2 diabetes mellitus with hyperglycemia; E11.51 Type 2 diabetes mellitus with diabetic peripheral angiopathy without gangrene; E11.42 Type 2 diabetes mellitus with diabetic polyneuropathy; E78.5 Hyperlipidemia, unspecified; M79.672 Pain in left foot; D69.6 Thrombocytopenia, unspecified; H54.61 Unqualified visual loss, right eye, normal vision left eye; F90.9 Attention-deficit hyperactivity disorder, unspecified type; J44.9 Chronic obstructive pulmonary disease, unspecified; I25.10 Atherosclerotic heart disease of native coronary artery without angina pectoris; Z99.2 Dependence on renal dialysis; Z88.5 Allergy status to narcotic agent; Z95.1 Presence of aortocoronary bypass graft; Z90.49 Acquired absence of other specified parts of digestive tract; Z86.73 Personal history of transient ischemic attack (TIA), and cerebral infarction without residual deficits; Z90.710 Acquired absence of both cervix and uterus; Z91.158 Patient's noncompliance with renal dialysis for other reason
CPT/HCPCS: 36415; 71045; 72191; 73706; 80048; 80061; 80069; 80076; 82803; 82947; 83735; 83880; 84100; 84484; 85025; 85027; 85610; 86706; 86850; 86900; 86901; 86920; 86922; 87340; 90935; 93005; 93925; 93970; 96365; 96375; 97116; 97162; 97530; 99285; G0378; J0360; J0612; J0885; J1200; J1644; J1815; J2405; J7040; J7613; P9016; Q5106; Q9967